=== PATIENT | male | born 1960 | race Caucasian/White ===

== ENCOUNTER → 2025-07-15 | Outpatient (CLI) | payer MEDICARE, SELFPAY ==
--- OUTSIDE RECORDS SUMMARY | 2025-07-15 21:01 | XMS RPT_ITS | CCD ---
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 Unavailable [phone] SEARS, CHRISTOPHER D Unavailable Unavailable SEARS, CHRISTOPHER D Unavailable Unavailable SEARS, CHRISTOPHER D Unavailable Unavailable SEARS, CHRISTOPHER D Unavailable Unavailable SEARS, CHRISTOPHER D Unavailable Unavailable LEVINE, BREANNA T Unavailable Unavailable CHAVIS, DIPAKKUMAR P Unavailable Unavailable SEARS, CHRISTOPHER D Unavailable Unavailable SEARS, CHRISTOPHER D Unavailable Unavailable SEARS, CHRISTOPHER D Unavailable Unavailable SEARS, CHRISTOPHER D Unavailable Unavailable SEARS, CHRISTOPHER D Unavailable Unavailable SEARS, CHRISTOPHER D Unavailable Unavailable SEARS, CHRISTOPHER D Unavailable Unavailable SEARS, CHRISTOPHER D Unavailable Unavailable SEARS, CHRISTOPHER D Unavailable Unavailable SEARS, CHRISTOPHER D Unavailable Unavailable SEARS, CHRISTOPHER D Unavailable Unavailable SEARS, CHRISTOPHER D Unavailable Unavailable SEARS, CHRISTOPHER D Unavailable Unavailable SEARS, CHRISTOPHER D Unavailable Unavailable SEARS, CHRISTOPHER D Unavailable Unavailable SEARS, CHRISTOPHER D Unavailable Unavailable JUAN, MARGARITA J Unavailable Unavailable SEARS, CHRISTOPHER D Unavailable Unavailable SEARS, CHRISTOPHER D Unavailable Unavailable SEARS, CHRISTOPHER D Unavailable Unavailable SEARS, CHRISTOPHER D Unavailable Unavailable SYSTEM, PROVIDER NOT IN Attending Unavaila DEBORAH Cardenas Primary Care Unavailable SYSTEM, PROVIDER NOT IN Attending Unavaila DEBORAH Cardenas Primary Care Unavailable CHODISETTY, SUBRAHMANYAM Referring Unavail able DEBORAH DE LA VEGA Primary Care Unavailable DAMON BATES Admitting Unavaila ble DAMON BATES Attending Unavaila ble DAMON BATES Referring Unavaila DEBORAH Cardenas Primary Care Unavailable CHODISETTY, SUBRAHMANYAM Referring Unavail able DEBORAH DE LA VEGA Primary Care Unavailable Justina De La Veganifer M. Primary Care Provider Deborah De La Vega Primary Care Provider DEBORAH DE LA VEGA Attending Unavailabl e DEBORAH DE LA VEGA Primary Care Unavailabl e Deborah De La Vega Primary Care Provider QUANG ESQUIVEL Referring Unavailable CARMELINA YOUNGBLOOD Admitting Unavailable CARMELINA YOUNGBLOOD Attending Unavailable CONSULT, NEUROLOGY Consulting Unavailable DEBORAH DE LA VEGA. Primary Care Unavailable ENRIQUE WILD Attending Unavailable ENRIQUE WILD Admitting Unavailable DEBORAH DE LA VEGA. Primary Care Unavailable JAIR GUERRA Attending Unavailable Pending Provider Unavailable Unavailable Deborah De La Vega CNP Primary Care Provider Jair Jacob DO Unavailable Chemo Chavez MD Unavailable Yuni Lindsey MDlizzie Unavailable Free, Text Entry Unavailable Unavailable Leilani Sommer Unavailable Unavailabl e DEBORAH DE LA VEGA Referring Unavailable CEFERINO DEBORAH M Primary Care Unavailable CEFERINO DEBORAH M Primary Care Unavailable HECTOR OLMEDO Attending Unavailable VALENTINE DE LA VEGAFER M Primary Care Unavailable QUANG ESQUIVEL Admitting Unavailable QUANG ESQUIVEL Attending Unavailable TOMMY MANCUSO W Consulting Unavailable TOMMY MANCUSO Referring Unavailable DE LA VEGA, DEBORAH M Primary Care Unavailable DE LA VEGA, DEBORAH M Referring Unavailable DE LA VEGA, DEBORAH M Primary Care Unavailable DE LA VEGA, DEBORAH M Referring Unavailable DE LA VEGA, DEBORAH M Primary Care Unavailable DE LA VEGA, DEBORAH M Referring Unavailable DE LA VEGA, DEBORAH M Primary Care Unavailable DE LA VEGA, DEBORAH M Referring Unavailable DE LA VEGA, DEBORAH M Primary Care Unavailable DE LA VEGA, DEBORAH M Referring Unavailable DE LA VEGA, DEBORAH M Primary Care Unavailable DE LA VEGA, DEBORAH M Referring Unavailable DE LA VEGA, DEBORAH M Primary Care Unavailable DE LA VEGA, DEBORAH M Referring Unavailable DE LA VEGA, DEBORAH M Primary Care Unavailable DE LA VEGA, DEBORAH M Referring Unavailable DE LA VEGA, DEBORAH M Primary Care Unavailable Jace Kwon Unavailable Deborah De La Vega CNP Primary Care Provider [phone] Scott GARNICA, Chemo J Unavailable César [facility]ARNICA, [facility] Unavailable [phone] Ceferino GARNICAJustinaDeborah Mary Unavailable Qing Martin Primary Care Provider Shashank Goel Unavailable Unavailable Ceferino MCCARTHY, Deborah Primary Care Provider [phone] ShanteJair copeland DO Unavailable [phone] Scott GARNICA, Chemo Martin Unavailable César GARNICA, Yunisherryam Unavailable Vikram Marr Unavailable Unavailable Lucy Hahn Unavailable Shashank Padilla Unavailable Unavailable Unavailable Leilani Reynolds Unavailable Unavailable Thomae, Dr. Lucy Galindo Attending Unavailable PCP, Pt States None Referring Unavailable Pending, Provider Primary Care Unavailable Padilla II, Dr. Shashank Livingston Attending Unavai lable Padilla II, Dr. Shashank Livingston Referring Unavai lable Pending, Provider Primary Care Unavailable Padilla II, Dr. Shashank Livingston Attending Unavai lable Padilla II, Dr. Shashank Livingston Referring Unavai lable Pending, Provider Primary Care Unavailable Pending, Provider Primary Care Unavailable Mario, Dr. Qing Encarnacion Attending Unavaila ble Thomae, Dr. Lucy Galindo Attending Unavailable Thomae, Dr. Lucy Galindo Referring Unavailable Tomchak, Dr. Qing Encarnacion Primary Care Unavaila ble Pending, Provider Primary Care Unavailable Thomashley, Dr. Lucy Galindo Referring Unavailable Thomashley, Dr. Lucy Galindo Attending Unavailable Pending, Provider Primary Care Unavailable Tommy Mancuso Attending Unavailable Pending, Provider Primary Care Unavailable Christal, Dr. Shashank Dillon Attending Unavailabl e Pending, Provider Primary Care Unavailable Tejinder, Dr. Vikram Moscoso Attending Unavailabl e Leilani Reynolds Attending Unavailable Pending, Provider Primary Care Unavailable Pending, Provider Primary Care Unavailable Qing Rader Unavailable Pending, Provider Primary Care Unavailable Qing Rader Attending Unavailable Qing Rader Attending Unavailable Pending, Provider Primary Care Unavailable Rader, Qing Attending Unavailable Pending, Provider Primary Care Unavailable Pending, Provider Primary Care Unavailable Rader, Qing Attending Unavailable Pending, Provider Primary Care Unavailable Rader, Qing Attending Unavailable Pending, Provider Primary Care Unavailable Rader, Qing Attending Unavailable Pending, Provider Primary Care Unavailable Rader, Qing Attending Unavailable Pending, Provider Primary Care Unavailable Rader, Qing Attending Unavailable Rader, Qing Attending Unavailable Pending, Provider Primary Care Unavailable Pending, Provider Primary Care Unavailable Dr. Qing Martin Attending Unavaila ble Qing Martin Unavailable ShanteJair copeland DO Unavailable [phone] Scott GARNICA, Chemo Martin Unavailable César [facility]ARNICA, [facility] Unavailable [phone] Qing Martin MD Primary Care Provider Ceferino OPERATIONS AND MAINTENANCE SPECIALIST, Deborah Ohcoa Unavailable Oberhauser , Anthony Sameer Primary Care Provider Oberhauser DO, Anthony L Primary Care Provider Oberhauser DO, Anthony Primary Care Provider Oberhauser DO, Anthony Sameer Primary Care Provider [facility], Deborah Mary Primary Care Provider SIM PATEL Attending Un available DEBORAH DE LA VEGA TAVIA Primary Care Unavailabl e OBERHAUSER, ANTHONY Smaeer Primary Care Unavailable OBERHAUSER, ANTHONY L Primary Care Unavailable OBERHAUSER, ANTHONY L Primary Care Unavailable OBERHAUSER, ANTHONY L Primary Care Unavailable GINETTE TORRES Attending Unavailable OBERHAUSER, ANTHONY L Primary Care Unavailable COOPERRIDER II, LEMUEL H Referring Unavailabl e COOPERRIDER II, LEMUEL H Attending Unavailabl e COOPERRIDER II, LEMUEL H Referring Unavailabl e COOPERRIDER II, LEMUEL H Attending Unavailabl e OBERHAUSER, ANTHONY L Primary Care Unavailable Mahamed Neri DO Primary Care Provide r César GARNICA, Subrahmanyam Unavailable Unav ailable MAHAMED NERI Referring Unavail able MAHAMED NERI Attending Unavail able MAHAMED NERI Primary Care Unavail able DANNY TORRES JR. Attending Unavailable MELISSA JONES, DANNY Referring Unavailable DEBORAH DE LA VEGA Primary Care Unavailabl e DARON, MAHAMED CHUNG Primary Care Unavail able MAHAMED NERI Attending Unavail able DARON, MAHAMED CHUNG Referring Unavail able DARON, MAHAMED CHUNG Primary Care Unavail able GUILLERMO RICH Admitting Unavail able JAKUB OGLESBY Consulting Unavailab TORSTEN Gonzalez Attending Unavailabl e [facility] Consulting UnavaMICHAEL Beltre Attending Unavailable MAHAMED NERI Primary Care Unavail able HANS LITTLEJOHN Admitting Unavailable [facility] Consulting Unavai lable Daron DO, Mahamed K Primary Care Provider [phone] Oberhauser DO, Anthony L Unavailable [phone] NIDIA CA Attending Unavailable MIRNA DENIS Attending Unavailable OBERHAUSER, ANTHONY L Primary Care Unavailable OBERHAUSER, ANTHONY L Attending Unavailable OBERHAUSER, ANTHONY L Referring Unavailable OBERHAUSER, ANTHONY L Primary Care Unavailable ALVINBRITTANYCELINA Attending Unavailable OBERHAUSER, ANTHONY Primary Care Unavailable ALVIN, CELINA Referring Unavailable ALVIN, CELINA Referring Unavailable ALVINDEBORAN Attending Unavailable OBERHAUSER, ANTHONY Primary Care Unavailable ALVIN, CELINA Referring Unavailable ALVIN, CELINA Attending Unavailable OBERHAUSER, ANTHONY Primary Care Unavailable OBERHAUSER, ANTHONY Primary Care Unavailable CARMELINA YOUNGBLOOD Referring Unavailable ALVINDEBORAN Attending Unavailable KAUSHAL AVITIA Attending Unavailable OBERHAUSER, ANTHONY Primary Care Unavailable OBERHAUSER, ANTHONY Referring Unavailable CARRIE GARCÍA Referring Unavailable CARRIE GARCÍA Attending Unavailable MAHAMED NERI Primary Care Unavailable ANUJA BUCKLEY Attending Unavailable SELF, SELF Referring Unavailable OBERHAUSER, ANTHONY Primary Care Unavailable OBERHAUSER, ANTHONY Primary Care Unavailable CARMELINA YOUNGBLOOD Referring Unavailable ALVINDEBORAN Attending Unavailable ANUJA BUCKLEY Attending Unavailable SELF, SELF Referring Unavailable DARON, MAHAMED K Primary Care Unavailable BUCKLEYANUJA PITTMAN Attending Unavailable SELF, SELF Referring Unavailable DARON, MAHAMED K Primary Care Unavailable ADORE, CRYSTAL G Referring Unavailable ESTEBAN, MYA L Attending Unavailable ESTEBAN, MYA L Admitting Unavailable OBERHAUSER, ANTHONY Primary Care Unavailable BUCKLEYANUJA PITTMAN Attending Unavailable OBERHAUSER, ANTHONY Primary Care Unavailable SELF, SELF Referring Unavailable BUCKLEYANUJA PITTMAN Attending Unavailable DARON, MAHAMED K Primary Care Unavailable SELF, SELF Referring Unavailable BUCKLEYANUJA PITTMAN Attending Unavailable DARON, MAHAMED K Primary Care Unavailable SELF, SELF Referring Unavailable CELINA ESQUIVEL Attending Unavailable OBERHAUSER, ANTHONY Referring Unavailable OBERHAUSER, ANTHONY Primary Care Unavailable ADORE, CRYSTAL G Attending Unavailable OBERHAUSER, ANTHONY Referring Unavailable OBERHAUSER, ANTHONY Primary Care Unavailable Mahamed Neri DO Primary Care Provide r MAHAMED NERI Attending Unavail able MAHAMED NERI Primary Care Unavail able MELISSA JONES, DANNY Attending Unavailable MAHAMED NERI Primary Care Unavail able MAHAMED NERI Primary Care Unavail able MAHAMED NERI Attending Unavail able MAHAMED NERI Primary Care Unavail able JAKUB OGLESBY Attending Unavailab le MAHAMED NERI Primary Care Unavail able MELISSA JONES, DANNY Attending Unavailable MAHAMED NERI Primary Care Unavail able MAHAMED NERI Attending Unavail able MELISSA JONES, DANNY Attending Unavailable DEBORAH DE LA VEGA Primary Care Unavailabl e MAHAMED NERI Primary Care Unavail able MAHAMED NERI Admitting Unavail able MARLENI GOLD Attending Unavailab le MAHAMED NERI Referring Unavail able MAHAMED NERI Attending Unavail able MAHAMED NERI Primary Care Unavail able MELISSA JONES, DANNY Attending Unavailable MAHAMED NERI Primary Care Unavail able MAHAMED NERI Primary Care Unavail able MAHAMED NERI Attending Unavail able MAHAMED NERI Primary Care Unavail able MAHAMED NERI Attending Unavail able MAHAMED NERI Primary Care Unavail able MAHAMED NERI Attending Unavail able MAHAMED NERI Primary Care Unavail able MAHAMED NERI Attending Unavail able MAHAMED NERI Attending Unavail able MAHAMED NERI Primary Care Unavail able MAHAMED NERI Primary Care Unavail able MAHAMED NERI Attending Unavail able Allergies Allergy Classification Reported Allergen(s) Allergy Type Date of Onset Reaction(s) Facility (1 source) No Known Medication Allergies; Translations: [No Known Medication Allergies] Propensity to adverse reactions to drug (disorder) [facility] Repository (1 source) ALLERGIES NOT ON FILE; Translations: [ALLERGIES NOT ON FILE] Propensity to adverse reactions (disorder) [facility] Repository Medications Current Medications Medication Drug Class(es) Dates Sig (Normalized) Sig (Original) acetaminophen 325 mg oral tablet (20 sources) Start: 07-02-2024 take 2 tablets by mouth every six hours as needed for pain, then take 8 tablets by mouth every hour as needed for pain acetaminophen (Tylenol) 325 mg tablet Indications: Pain in other joint GIVE 2 TABLETS (650MG) BY MOUTH EVERY 6 HOURS NEEDED FOR MILD PAIN (ALSO HAS SCHEDULED DOSE) *MAX 8 TABS/24 HRS* 60 tablet 11 07/04/2024 9:57 AM EST 07/02/2024 Active Start: 05-06-2024 End: 05-13-2025 take 2 tablets by mouth twice daily acetaminophen (TYLENOL) 325 MG tablet Take 2 (two) tablets (650 mg total) by mouth 2 (two) times a day . 180 tablet 3 05/13/2025 Active Start: 08-30-2023 End: 08-30-2023 take 1 tablet by mouth every four hours as needed 650 mg, Oral, EVERY 4 HOURS NEEDED, Starting on Mon08/30/23 at 1624, Until Mon08/30/23 at 2021, Mild Pain Maximum dose of acetaminophen is 4000 mg from all sources in 24 hours. Post-op/Post-Proc Start: 10-25-2021 End: 11-24-2021 take 2 tablets by mouth every six hours as needed acetaminophen 325 MG tablet Take 2 tablets by mouth every 6 hours as needed for Mild Pain. 90 tablet 0 10/25/2021 Active Start: 07-28-2020 acetaminophen (TYLENOL) tablet 650 mg Start: 07-22-2020 End: 07-22-2020 acetaminophen (TYLENOL) 325 MG tablet Start: 07-22-2020 End: 07-22-2020 acetaminophen (TYLENOL) tabl et 650 mg take 650 mg by mouth every four hours acetaminophen (TYLENOL) 325 mg/10.15 mL Soln Take 20.3 mL (650 mg total) by mouth every 4 (four) hours . Active take 2 tablets by mo [facility] every four hours as needed for pain acetaminophen (TYLENOL) 325 MG tablet Take 650 mg by mouth every 4 hours as needed for Pain 0 Active End: 05-17-2019 acetaminophen (TYLENOL) 500 MG tablet Take 650 mg by mouth every 4 hours as needed for Pain 0 05/17/2019 Discontinued (Stop Taking at Discharge) Comment on above: Take 650 mg by mouth every 6 hours as needed. acetaminophen 325 mg / HYDROcodone bitartrate 5 mg oral tablet (12 sources) Opioid Agonist take 1 tablet by mouth every six hours as needed HYDROcodone-acetaminophe n ([place]) 5-325 mg tablet Take 1 tablet by mouth every 6 hours if needed. Active Comment on above: Take 1 tablet by oly every 6 hours as needed. aluminum hydroxide 80 mg/ml / magnesium hydroxide 80 mg/ml / simethicone 8 mg/ml oral suspension (17 sources) Start: 0 take 5 mL by mouth three times daily as needed for nausea aluminum & magnesium hydroxide-simethicone (ALMACONE DOUBLE STRENGTH) 400-400-40 MG/5ML SUSP Indications: Gastroesophageal reflux disease without esophagitis Take 5 mLs by mouth 3 times daily as needed (nausea/diarrhea) 1 Bottle 5 05/11/2020 Active take 5 mL by mouth t hree times daily as needed for nausea Alum & Mag Hydroxide-Simeth (alum/mag hydrox.-simethicone) Suspension Take 5 mL by mouth 3 times daily as needed (NAUSEA/DIARRHEA). 0 Active take 5 mL by mouth e very six hours as needed aluminum & magnesium hydroxide-simethico ne (ALMACONE DOUBLE STRENGTH) 400-400-40 MG/5ML SUSP Take 5 mLs by mouth every 6 hours as needed 0 Active amLODIPine 10 mg oral tablet (20 sources) Dihydropyridine Calcium Channel Arnulfo Start: 05-13-2019 End: 09-11-2024 take 1 tablet by mouth once daily amLODIPine (NORVASC) 10 MG tablet Take 1 (one) tablet (10 mg total) by mouth daily . 01/10/2020 09/11/2024 Discontinued Comment on above: Take 10 mg by mouth once daily. amoxicillin 500 mg oral capsule (8 sources) Penicillin-class Antibacterial Start: 12-28-2022 amoxicillin (Amoxil) 500 mg capsule 12/28/2022 Active atorvastatin 10 mg oral tablet (20 sources) HMG-CoA Reductase Inhibitor Start: 05-13-2019 End: 12-13-2024 take 1 tablet by mouth once daily atorvastatin (LIPITOR) 10 MG tablet Take 1 (one) tablet (10 mg total) by mouth daily . 30 tablet 11 11/21/2024 Active Atorvastatin Nils cium 10 MG Oral Tablet Quantity: 0 Refills: 0 Ordered: 06-Oct-2022 DO Active Comment on above: Take 10 mg by mouth once daily. benoxinate hydrochloride 4 mg/ml / fluorescein sodium 3 mg/ml ophthalmic solution (2 sources) Diagnostic Dye Start: 07-10-2024 End: 07-11-2024 fluorescein-benoxi maude 0.3-0.4 % 1 Drop (FLURESS) Start: 07-10-2024 End: 07-11-2024 1 Drop, BOTH EYES, DIRECT ED, Starting on Mon07/10/24 at 1530, Until Mon07/11/24 at 0329, Administer for applanation tonometry. In the event of a Fluress shortage, administer Char-Fluor 1 drop into both eyes as directed for applanation tonometry benztropine mesylate 1 mg oral tablet (12 sources) Anticholinergic, Antihistamine take 1 tablet by mouth every six hours as needed benztropine (Cogentin) 1 mg tablet Take 1 tablet (1 mg) by mouth every 6 hours if needed. Active Comment on above: Take 1 mg by mouth e very 6 hours as needed. budesonide 0.25 mg/ml inhalation suspension (17 sources) Corticosteroid budesonide (PULMICORT) 0.5 mg/2 mL nebulizer solution Take 2 mL (0.5 mg total) by nebulization 3 (three) times a day as needed . Active take 2 mL by inhalat ion three times daily as needed for wheezing budesonide 0.5 MG/2ML nebulizer suspensi on Inhale 2 mL 3 times daily as needed for Other (Wheezing). Active Calcium & Magnesium Carbonates (MYLANTA PO) (13 sources) take 30 mL by mouth every four hours as needed Calcium & Magnesium Carbonates (MYLANTA PO) Take 30 mLs by mouth every 4 hours as needed 0 Active Calcium Carbonate / vitamin D3 (4 sources) CALCIUM CARBONAT E/VITAMIN D3 (OYSTER SHELL + D3 ORAL) Take by mouth. Active CALCIUM CARBONAT E/VITAMIN D3 (OYSTER SHELL + D3 ORAL) Take by mouth. 0 Active Comment on above: Take by mouth. cetirizine hydrochloride 10 mg oral tablet (20 sources) Histamine-1 Receptor Antagonist Start: End: take 1 tablet by mouth once daily as needed cetirizine (ZYRTEC) 10 MG tablet Indications: Allergy, subsequent encounter Take 1 tablet by mouth daily as needed for Allergies 90 tablet 1 08/28/2020 Active cetirizine (ZYRT EC) 10 mg capsule Take 1 capsule (10 mg) by mouth if needed. Active Comment on above: Take 10 mg by mouth as needed. cholecalciferol 0.025 mg oral tablet (20 sources) Vitamin D Start: 09-23-19 25 take 2 tablets by mouth once daily cholecalciferol (Vitamin D-3) 25 MCG (1000 UT) tablet Indications: Vitamin D deficiency, unspecified GIVE 2 TABLETS (2000 UNITS) BY MOUTH ONCE DAILY 60 tablet 1 09/23/2024 Active Start: 02-28-2024 take 2 tablets by mo ut once daily cholecalciferol (Vitamin D-3) 25 MCG (1000 UT) tablet Indications: Vitamin D deficiency, unspecified GIVE 2 TABLETS (2000 UNITS) BY MOUTH ONCE DAILY 60 tablet 3 02/28/2024 Active Start: 10-04-2023 take 2 tablets by mo uth once daily cholecalciferol (Vitamin D-3) 25 MCG (1000 UT) tablet Indications: Vitamin D deficiency, unspecified GIVE 2 TABLETS (2000 UNITS) BY MOUTH ONCE DAILY NEW PCP 60 tablet 4 10/04/2023 Active Start: 04-21-2023 End: 09-11-2024 take 1 tablet by mouth once daily cholecalciferol 25 MCG (1000 UNIT) tablet Take 1 tablet by mouth daily. 0 04/21/2023 08/16/2023 Discontinued (Duplicate (suppress cancel msg)) Start: 06-29-2022 take 2 capsules by m outh once daily in the morning Cholecalciferol (Vitamin D-3) 25 MCG (1000 UT) capsule Take 2 capsules by mouth daily every morning. 06/29/2022 Active Start: 03-10-2022 End: 11-20-2024 take 2 tablets by mouth once daily cholecalciferol, vitamin D3, 1,000 unit tablet Take 2 (two) tablets (2,000 Units total) by mouth daily . 60 tablet 11 11/21/2024 Active take 1 tablet by oly th twice daily cholecalciferol (Vitamin D3) 25 MCG (1000 UT) tablet Take 1 tablet (25 mcg) by mouth 2 times a day. 0 Active Vitamin D3 25 MC G Oral Tablet Quantity: 0 Refills: 0 Ordered: 06-Oct-2022 DO Active Cholecalciferol (Vitamin D-3) 25 MCG (1000 UT) capsule Take by mouth. 0 Active Comment on above: GIVE 2 TABLETS (2000 UNITS) BY MOUTH ONCE DAILY ciclopirox 80 mg/ml topical solution (20 sources) Start: 01-31-20 24 End: 06-09-20 25 ciclopirox (Penlac) 8 % solution Indications: Nail fungus APPLY OVER NAIL & SURROUNDING SKIN NIGHTLY. APPLY DAILY OVERPREVIOUS COAT. AFTER 7 DAYS, MAY REMOVE WITH ALCOHOL & CONT 6.6 mL 04/29/2024 Active ciprofloxacin 500 mg oral tablet (1 source) Quinolone Antimicrobial Start: 08-19-19 End: 08-29-19 21 take 1 tablet by mouth twice daily ciprofloxacin (CIPRO) 500 MG tablet Take 1 tablet by mouth 2 times daily for 10 days 10 tablet 0 08/19/2020 08/29/2020 Active clonazePAM 1 mg oral tablet (20 sources) Benzodiazepine Start: 07-22-20 20 clonazePAM (KLONOPIN) 0.5 MG tablet Start: 01-07-2020 End: 02-18-2026 take 1 tablet by mouth at bedtime clonazePAM (KLONOPIN) 1 MG tablet Take 1 (one) tablet (1 mg total) by mouth at bedtime . 01/07/2020 Active Start: 03-19-2019 End: 06-17-2019 take 1 mg by mouth once daily 1 mg, Oral, NIGHTLY, Fir st dose on Mon05/13/19 at 2100 clonazePAM 1 MG Oral Tablet Quantity: 0 Refills: 0 Ordered: 06-Oct-2022 DO Active Comment on above: Take 0.5 mg by mouth daily at bedtime. collagenase 0.25 unt/mg topical ointment (1 source) Collagen-specific Enzyme Start: 07-31-2020 collagenase ointment CPAP (4 sources) CPAP Active CPAP CPAP Machine MISC (13 sources) CPAP Machine MIS C by Does not apply route 0 Active cyclopentolate hydrochloride 10 mg/ml ophthalmic solution (1 source) Start: 05-31-2022 End: 05-31-2022 cyclopentolate 1 % 1 Drop (CYCLOGYL) diazePAM 100 mg/ml nasal spray (20 sources) Benzodiazepine Start: 03-05-2025 diazePAM, 20 MG Dose, (Valtoco 20 MG Dose) 2 x 10 MG/0.1ML Liquid Therapy Pack Indications: Focal epilepsy GIVE 10MG (1 SPRAY) IN 1 NOSTRIL NEEDED FOR CONVULSIVE SEIZURE LASTING 5 MIN OR LONGER. MAX 2 DOSES IN 7 DAYS 4 Each 1 03/05/2025 Active Start: 04-26-2024 diazePAM, 20 M G Dose, (Valtoco 20 MG Dose) 2 x 10 MG/0.1ML Liquid Therapy Pack Indications: Focal epilepsy Give 10 mg in ONE nostril as needed for convulsive seizure lasting 5 minutes or longer. MAX 2 DOSES IN 7 DAYS. 4 Each 1 04/26/2024 Active Start: 09-20-2023 diazePAM, 20 M G Dose, (Valtoco 20 MG Dose) 2 x 10 MG/0.1ML Liquid Therapy Pack Indications: Focal epilepsy Give 10 mg in ONE nostril as needed for convulsive seizure lasting 5 minutes or longer. MAX 2 DOSES IN 7 DAYS. 4 Each 1 09/20/2023 Active diazePAM (Valtoc o) 20 mg/2 spray (10mg/0.1mL x2) [place] Instill 1 spray into each nostril as needed (convulsive seizure lasting 5 minutes or longer) GIVE 10 MG (1 SPRAY) IN 1 NOSTRIL NEEDED FOR CONVULSIVE SEIZURE LASTING 5 MIN OR LONG. MAX 2 DOSES IN 7 DAYS. . Active diazePAM (Valtoc o) 20 mg/2 spray (10mg/0.1mL x2) [place] Instill 1 spray into each nostril as needed (convulsive seizure lasting 5 minutes or longer) . Active End: 09-11-2024 diazePAM (Valtoco) 20 mg/2 s pray (10mg/0.1mL x2) [place] Instill into each nostril . 09/11/2024 Discontinued diazePAM (VALTOC O) 20 mg/2 spray (10mg/0.1mL x2) nasal spray Use 1 [place] in each nostril as needed. May repeat dose once after 4 hours based on response and tolerability for a maximum of 2 doses per 24-hour period. Active diazePAM (Valtoc o) 20 mg/2 spray (10mg/0.1mL x2) [place] Instill into each nostril . Active diazePAM (Valtoc o) 20 mg/2 spray (10mg/0.1mL x2) [place] Instill into each nostril . 0 Active docusate sodium 100 mg oral capsule (20 sources) Start: 05-13-2019 End: 09-11-2024 take 100 mg by mouth once daily 100 mg, Oral, DAILY, First dose on Mon05/13/19 at 1230 Do not crush or break. take 1 capsule by mouth twice da anushka docusate sodium (Colace) 100 mg capsule Take 1 capsule (100 mg) by mouth twice a day. Active DOCUSATE SODIUM 100 mg. 0 Active Comment on above: Take 100 mg by mouth twice daily. docusate sodium 50 mg / sennosides, intermediate 8.6 mg oral tablet (20 sources) Start: 08-13-2020 End: 05-05-2025 take 1 tablet by mouth twice daily senna-docusate (sennosides-docus ate sodium) 8.6-50 mg Take 1 (one) tablet by mouth 2 (two) times a day . 180 tablet 3 05/06/2025 Active Start: 07-30-2020 sennosides-doc usate sodium (SENOKOT-S) 8.6-50 MG tablet 1 tablet donepezil hydrochloride 10 mg oral tablet (12 sources) take 1 tablet by mouth once daily at bedtime donepezil (Aricept) 10 mg tablet Take 10 mg by mouth daily at bedtime. Active Comment on above: Take 10 mg by mouth daily at bedtime. doxycycline hyclate 100 mg oral capsule (1 source) Tetracycline-class Drug Start: 08-30-19 End: 09-04-19 take 1 capsule by mouth twice daily doxycycline hyclate 100 MG capsule Take 1 capsule by mouth 2 times daily for 5 days. 10 capsule 0 08/30/2023 09/04/2023 Active ergocalciferol 1.25 mg oral capsule (12 sources) Provitamin D2 Compound take 1 capsule by mouth every week ergocalciferol (Vitamin D-2) 1.25 MG (90806 UT) capsule Take 1 capsule (50,000 Units) by mouth once a week. Active Comment on above: Take 50,000 Units by mouth once each week. famotidine 20 mg oral tablet (20 sources) Histamine-2 Receptor Antagonist Start: 08-08-20 End: 12-14-19 take 1 tablet by mouth twice daily famotidine (PEPCID) 20 MG tablet Take 1 (one) tablet (20 mg total) by mouth 2 (two) times a day . 60 tablet 11 11/21/2024 Active Start: 07-25-2020 End: 08-08-2020 famotidine (PEPCID) injectio n 20 mg take 1 tablet by oly th once daily famotidine (Pepcid) 20 mg tablet Take 1 tablet (20 mg) by mouth once daily. 0 Active Famotidine 20 MG Oral Tablet Quantity: 0 Refills: 0 Ordered: 06-Oct-2022 DO Active Comment on above: Take 20 mg by mouth twice daily. finasteride 5 mg oral tablet (10 sources) 5-alpha Reductase Inhibitor Start: 04-21-2025 End: 04-21-2026 take 1 tablet by mouth once daily finasteride (PROSCAR) 5 mg tablet Take 1 (one) tablet (5 mg total) by mouth daily . 04/21/2025 04/21/2026 Active folic acid 1 mg oral tablet (20 sources) Start: 05-19-2015 End: 06-18-2025 take 1 tablet by mouth once daily folic acid (FOLVITE) 1 MG tablet Take 1 (one) tablet (1 mg total) by mouth daily . 90 tablet 3 06/19/2025 Active Folic Acid 1 MG Oral Tablet Quantity: 0 Refills: 0 Ordered: 06-Oct-2022 DO Active Comment on above: Take 1 mg by mouth o nce daily. haloperidol 1 mg oral tablet (20 sources) Typical Antipsychotic Start: 08-08-2020 haloperidol (HALDOL) tablet 2 mg Start: 07-29-2020 End: 07-29-2020 haloperidol lactate (HALDOL) injection 5 mg Start: 07-29-2020 End: 06-10-2024 haloperidol lactate (HALDOL) 5 MG/ML injection Start: 07-25-2020 haloperidol la ctate (HALDOL) injection 2 mg haloperidol (Clay dol) 5 mg tablet Take 1 tablet (5 mg) by mouth if needed. Active haloperidol lact ate (HALDOL) 5 mg/mL injection Inject intramuscularly as needed. Active Comment on above: Inject intramuscular ly as needed. Take 5 mg by mouth a s needed. 1 ml heparin sodium, porcine 5000 unt/ml prefilled syringe (2 sources) Unfractionated Heparin, Anti-coagulant Start: End: heparin (porcine) injection 5,000 Units hydrocortisone 10 mg/ml topical cream (20 sources) Corticosteroid hydrocortisone 1 % cream Apply topically 2 (two) times a day as needed (itchiness) B/L anterior notch of ear . Active hydrocortisone 10 mg/ml / neomycin 3.5 mg/ml / polymyxin b 83078 unt/ml otic solution (7 sources) Aminoglycoside Antibacterial, Polymyxin-class Antibacterial, Corticosteroid Start: End: [id number] (Cortisporin) otic solution Indications: Allergic eczema Administer 2 drops into each ear 4 times a day. 10 mL 01/09/2024 Active lacosamide 50 mg oral tablet (20 sources) Anti-epileptic Agent Start: 025 End: take 1 tablet by mouth every twelve hours Lacosamide (Vimpat) 200 MG tablet Indications: Focal epilepsy Take 1 tablet by mouth every 12 hours. 60 tablet 5 04/01/2025 09/28/2025 Active Start: 12-11-2024 End: 12-13-2024 take 250 mg by mouth every twelve hours 250 mg, Oral, EVERY 12 HOURS, First dose on Mon12/11/24 at 1015, Until Discontinued Start: 11-01-2024 End: 11-01-2025 take 1 tablet by mouth every twelve hours Lacosamide 50 MG tablet Indications: Focal epilepsy Take 1 tablet by mouth every 12 hours. 60 tablet 5 04/17/2025 10/14/2025 Active Start: 10-30-2024 End: 11-29-2024 take 1 tablet by mouth once lacosamide (VIMPAT) 200 mg Tab Indications: Refractory epilepsy (HCC) Take 1 (one) tablet (200 mg total) by mouth every 12 (twelve) hours . 60 tablet 10/30/2024 Active Start: 10-30-2024 End: 11-29-2024 take 1 tablet by mouth twice daily lacosamide (Vimpat) 50 mg Tab Indications: Refractory epilepsy (HCC) Take 1 (one) tablet (50 mg total) by mouth 2 (two) times a day For a total of 250mg bid . 60 tablet 10/30/2024 Active Start: 04-12-2023 End: 02-19-2025 take 1 tablet by mouth every twelve hours Lacosamide (Vimpat) 200 MG tablet Indications: Focal epilepsy Take 1 tablet by mouth every 12 hours. 60 tablet 5 08/23/2024 02/19/2025 Active Start: 10-06-2022 take 1 tablet by oly th every twelve hours Lacosamide (Vimpat) 200 MG tablet Indications: Seizure disorder Take 1 tablet by mouth every 12 hours. 60 tablet 5 10/06/2022 Active Start: 06-02-2022 End: 07-02-2022 take 1 tablet by mouth every twelve hours Lacosamide (Vimpat) 200 MG tablet Indications: Seizure disorder Take 1 tablet by mouth every 12 hours. 60 tablet 5 06/02/2022 Active Start: 03-09-2022 End: 04-08-2022 take 1 tablet by mouth every twelve hours Lacosamide (Vimpat) 150 MG tablet Indications: Seizure disorder Take 1 tablet by mouth every 12 hours. 60 tablet 5 03/09/2022 04/08/2022 Active Start: 11-17-2021 End: 03-09-2022 take 1 tablet by mouth every twelve hours lacosamide (Vimpat) 100 MG tablet Indications: Seizure disorder Take 1 tablet by mouth every 12 hours. 60 tablet 5 11/17/2021 03/09/2022 Discontinued (Reorder) Start: 09-15-2021 End: 11-17-2021 take 1 tablet by mouth every twelve hours lacosamide (Vimpat) 50 MG tablet Indications: Seizure disorder Take 1 tablet by mouth every 12 hours. 60 tablet 5 09/15/2021 11/17/2021 Discontinued (Reorder) take 0.25 tablet by mouth twice daily lacosamide (Vimpat) 200 mg tablet tablet Take 0.25 tablets (50 mg) by mouth 2 times a day. Active take 1 tablet by oly th twice daily lacosamide (VIMPAT) 200 mg Tab Take 1 (one) tablet (200 mg total) by mouth 2 (two) times a day (Days supply per fill: . Active take 1 tablet by oly th twice daily lacosamide (VIMPAT) 150 mg tab Take by mouth twice daily. Active Comment on above: Take by mouth twice daily. levothyroxine sodium 0.137 mg oral tablet (20 sources) l-Thyroxine Start: 12-11-2024 End: 12-13-2024 237.5 mcg (rounded from 237 mcg), Oral, DAILY EVERY MORNING, First dose on Mon12/11/24 at 1200, Until Discontinued, Hold tube feedings for 1 hour before and 1 hour after medication administration. Start: 08-10-2023 End: 06-18-2025 take 1 tablet by mouth once daily levothyroxine (SYNTHROID, LEVOTHROID) 100 MCG tablet Indications: Acquired hypothyroidism Take 1 (one) tablet (100 mcg total) by mouth once daily Along with 137 mcg, total 237 daily . 90 tablet 3 06/19/2025 Active Start: 08-10-2023 End: 06-18-2025 take 1 tablet by mouth once daily levothyroxine (SYNTHROID, LEVOTHROID) 137 MCG tablet Indications: Acquired hypothyroidism Take 1 (one) tablet (137 mcg total) by mouth once daily With 100 mcg, total 237 daily . 90 tablet 3 06/19/2025 Active Start: 06-29-2022 take 0.5 tablet by m outh once daily in the morning levothyroxine 200 MCG tablet Take 0.5 tablets by mouth daily every morning. 0 06/29/2022 Active Start: 06-29-2022 take 1 tablet by oly th once daily before breakfast levothyroxine 125 MCG tablet Take 1 tablet by mouth every morning before breakfast. Total dose 237mg daily 0 06/29/2022 Active Start: 07-23-2020 take 200 ug by mouth once daily in the morning 200 mcg, Oral, EVERY MORNING, First dose on Anne-Marie 07/23/20 at 0900 Tube feeding (TF) interaction, obtain physician order to manage, recommend holding TF for 30 minutes before and after dose. Start: 05-11-2020 End: 08-13-2020 take 1 tablet by mouth twice daily levothyroxine (SYNTHROID) 50 MCG tablet Indications: Hypothyroidism, unspecified type Take 1 tablet by mouth 2 times daily 90 tablet 1 05/11/2020 08/13/2020 Discontinued (REORDER) Start: 01-10-2020 End: 09-11-2024 take 1 tablet by mouth once daily levothyroxine (SYNTHROID, LEVOTHROID) 200 MCG tablet Take 1 (one) tablet (200 mcg total) by mouth daily . 01/10/2020 09/11/2024 Discontinued Start: 01-10-2020 End: 09-11-2024 take 1 tablet by mouth every other day levothyroxine (SYNTHROID, LEVOTHROID) 50 MCG tablet Take 1 (one) tablet (50 mcg total) by mouth every other day . 01/10/2020 09/11/2024 Discontinued Start: 05-13-2019 take 200 ug by mouth once owen y 200 mcg, Oral, DAILY, First dose on Mon05/13/19 at 1230 Start: 05-13-2019 take 50 ug by mouth every other day 50 mcg, Oral, EVERY OTHER DAY, First dose on Mon05/13/19 at 1230 In addition to 200mg Daily Tube feeding (TF) interaction, obtain physician order to manage, recommend holding TF for 30 minutes before and after dose. levothyroxine (S YNTHROID) 200 mcg tablet Indications: Intractable epilepsy without status epilepticus, unspecified epilepsy type (HCC) Take 137 mcg by mouth daily before breakfast. Active take 1 tablet by oly th once daily before breakfast levothyroxine (SYNTHROID) 50 mcg tablet Indications: Intractable epilepsy without status epilepticus, unspecified epilepsy type (HCC) Take 50 mcg by mouth daily before breakfast. Active End: 06-10-2024 take 1 capsule by mouth once daily levothyroxine (Tirosint) 137 mcg capsule Take 1 capsule (137 mcg) by mouth once daily. 06/10/2024 Discontinued (Duplicate order) Levothyroxine So dium 100 MCG Oral Capsule Quantity: 0 Refills: 0 Ordered: 06-Oct-2022 DO Active take 2 tablets by mo uth every other day levothyroxine 25 MCG tablet Take 50 mcg by mouth every other day. 0 Active End: 05-17-2019 take 0.2 ug by mouth once daily LEVOTHYROXINE SODIUM P O Take 0.2 mcg by mouth daily 0 05/17/2019 Discontinued (Stop Taking at Discharge) take 0.2 ug by mouth once daily LEVOTHYROXINE SODIUM PO Take 0.2 mcg by mouth daily 0 Active Comment on above: Take 50 mcg by mouth daily before breakfast. Take 200 mcg by mout h daily before breakfast. Take 137 mcg by mout h daily before breakfast. lidocaine 0.05 mg/mg medicated patch (4 sources) Antiarrhythmic, Amide Local Anesthetic lidocaine 5 % Patch patch Place 1 patch on skin every 24 hours. Max of 12 hours of application then remove. 0 Active LORazepam 1 mg oral tablet (6 sources) Benzodiazepine Start: 08-08-2020 LORazepam (ATIVAN) tablet 1 mg Start: 08-03-2020 End: 08-08-2020 LORazepam (ATIVAN) injection 2 mg Start: 07-29-2020 End: 07-29-2020 LORazepam (ATIVAN) injection 2 mg Start: 07-29-2020 End: 07-29-2020 LORazepam (ATIVAN) 2 MG/ML i njection Start: 07-23-2020 End: 08-03-2020 LORazepam (ATIVAN) injection 1 mg Start: 05-13-2019 LORazepam (ATI VAN) injection 2 mg MAG HYDROX/AL HYDROX/SIMETH (ANTACID LIQUID ORAL) (4 sources) MAG HYDROX/AL HY DROX/SIMETH (ANTACID LIQUID ORAL) Indications: Intractable epilepsy without status epilepticus, unspecified epilepsy type (HCC) Take 30 mL by mouth as needed. Active MAG HYDROX/AL HY DROX/SIMETH (ANTACID LIQUID ORAL) Indications: Intractable epilepsy without status epilepticus, unspecified epilepsy type (HCC) Take 30 mL by mouth as needed. 0 Active Comment on above: Take 30 mL by mouth as needed. magnesium hydroxide 80 mg/ml oral suspension (5 sources) Start: 05-13-2019 take 30 mL by mouth once daily as needed for constipation 30 mL, Oral, DAILY PRN, Constipation, Starting 05/13/19 at 1202 First line therapy for constipation. take 10 mL by mouth every twenty-four hours as needed magnesium hydroxide, concentrate, 2400 MG/10ML Suspension oral suspension Take 10 mL by mouth daily as needed for Constipation. 0 Active memantine hydrochloride 10 mg oral tablet (20 sources) A-ldgbmt-E-aspartate Receptor Antagonist Start: 07-22-2020 take 5 mg by mouth twice daily 5 mg, Oral, 2 TIMES DAILY, First dose on Mon07/22/20 at 2230 Substituted for Memantine ER (NAMENDA XR). Start: 11-15-2019 End: 09-11-2024 take 1 tablet by mouth twice daily memantine (NAMENDA) 10 MG tablet Take 1 (one) tablet (10 mg total) by mouth 2 (two) times a day . 11/15/2019 09/11/2024 Discontinued Start: 12-19-2018 take 1 tablet by [facility] twice daily memantine (NAMENDA) 5 MG tablet Indications: Cognitive impairment Take 1 tablet by mouth 2 times daily 60 tablet 1 06/12/2020 Active Comment on above: Take 5 mg by mouth t wice daily. methenamine hippurate 1000 mg oral tablet (20 sources) Start: 03-09-2022 End: 10-03-2025 take 1 tablet by mouth twice daily Methenamine Hippurate 1 g tablet Take 1 tablet by mouth 2 times daily. 03/09/2022 Active Comment on above: Take 1 g by mouth. 24 hr metoprolol succinate 25 mg extended release oral tablet (20 sources) beta-Adrenergic Arnulfo Start: 10-16-2024 End: 12-13-2024 take 1 tablet by mouth once daily metoprolol succinate (TOPROL-XL) 25 MG 24 hr tablet Indications: Hypertension goal BP (blood pressure) Take 1 (one) tablet (25 mg total) by mouth daily . 90 tablet 3 10/16/2024 Active Start: 08-13-2020 take 0.5 tablet by m outh twice daily in the evening metoprolol tartrate (Lopressor) 25 mg tablet Indications: Primary hypertension GIVE 1/2 TABLET (12.5MG) BY MOUTH TWICE DAILY NEW PCP 30 tablet 11 08/19/2024 1:16 PM EST 12/08/2023 Active Start: 08-09-2020 metoprolol tar trate (LOPRESSOR) tablet 12.5 mg Start: 07-29-2020 End: 08-09-2020 metoprolol tartrate (LOPRESS OR) tablet 25 mg Start: 07-27-2020 End: 07-27-2020 metoprolol tartrate (LOPRESS OR) tablet 25 mg Start: 07-22-2020 metoprolol (LO PRESSOR) 5 MG/5ML injection Start: 05-13-2019 End: 09-11-2024 metoprolol tartrate (LOPRESS OR) tablet 50 mg take 1 tablet by oly th twice daily metoprolol succinate ER (TOPROL XL) 50 mg 24 hr tablet Take 50 mg by mouth twice daily. Active Metoprolol Tartr ate 25 MG Oral Tablet Quantity: 0 Refills: 0 Ordered: 06-Oct-2022 DO Active metoprolol 25 MG tab regular release Take 12.5 mg by mouth 2 times daily. 0 Active Comment on above: Take 50 mg by mouth twice daily. metoprolol tartrate (LOPRESSOR) 12.5 mg partial tablet (1 source) End: 09-11-2024 metoprolol tartrate (LOPRESSOR) 12.5 mg partial tablet Take 1 (one) split tablet (12.5 mg total) by mouth 2 (two) times a day . 09/11/2024 Discontinued 24 hr mirabegron 25 mg extended release oral tablet (20 sources) beta3-Adrenergic Agonist Start: 05-27-2022 End: 09-11-2024 take 1 tablet by mouth every twenty-four hours Mirabegron ER 25 MG tablet Take 1 tablet by mouth every evening. 05/27/2022 Active Myrbetriq 25 MG Oral Tablet Extended Release 24 Hour Quantity: 0 Refills: 0 Ordered: 06-Oct-2022 DO Active Comment on above: Take 25 mg by mouth once daily. NONFORMULARY (20 sources) NONFORMULARY RORY ATMENT-DUODERM ADHESIVE DRESSING 4 X 4: APPLY 1 UNIT BY TOPICAL ROUTE EVERY 3 DAYS, ADDITIONAL IF NEEDED (OPEN AREAS TO BOTTOM) . Active NONFORMULARY RORY ATMENT-SWIPE VNS MAGNET ONE TIME AT [email or web address] . Active NONFORMULARY RORY ATMENT-CHECK BLOOD PRESSURE & HEART RATE DAILY. UPDATE NURSE IF >140/90 AND HR >100 OR IF Active ondansetron 4 mg oral tablet (5 sources) Serotonin-3 Receptor Antagonist Start: 08-08-2020 ondansetron (ZOFRAN) tablet 4 mg Start: 07-22-2020 End: 08-08-2020 4 mg, Intravenous, EVERY 6 H OURS PRN, Nausea, Vomiting, Starting Mon07/22/20 at 2149 Start: 05-16-2019 ondansetron (Z OFRAN) injection 4 mg oxygen (O2) therapy (1 source) Start: 05-14-2024 inhalation, Continuous PRN - O2/gases, other, Starting on Mon05/14/24 at 2315, Device: Nasal Cannula, Rate in liters per minute: Other, Custom Value: 1-4, Keep O2 Sat Above: 90% PARoxetine hydrochloride 40 mg oral tablet (20 sources) Serotonin Reuptake Inhibitor Start: 12-11-2024 End: 12-13-2024 take 1 tablet by mouth once daily in the morning 50 mg, Oral, DAILY EVERY MORNING, First dose on Mon12/11/24 at 1015, Until Discontinued, Swallow tablet whole; do not crush, split or chew. Contact pharmacy if alternate route or dose is needed. Start: 08-19-2024 End: 07-19-2025 take 1 tablet by mouth once daily in the morning PARoxetine 10 MG tablet Indications: Anxiety disorder, unspecified type , Depression, unspecified depression type Take 1 tablet by mouth daily every morning. Takes with 40mg for Total dose 50mg QAM 30 tablet 5 01/20/2025 07/19/2025 Active Start: 01-04-2023 End: 05-18-2024 take 1 tablet by mouth once daily in the morning PARoxetine 10 MG tablet Indications: Depression, unspecified depression type Take 1 tablet by mouth daily every morning. Takes with 40mg for Total dose 50mg QAM 30 tablet 5 11/20/2023 Active Start: 02-28-2022 End: 09-27-2022 take 1 tablet by mouth once daily PARoxetine 10 MG tablet Take 1 tablet by mouth daily. Take with 40mg tab for total dose 50mg 90 tablet 0 06/29/2022 09/27/2022 Active Start: 10-27-2021 End: 11-26-2021 take 1 tablet by mouth once daily PARoxetine 10 MG tablet Take 1 tablet by mouth daily. Take with 40mg dose for total dose 50mg 30 tablet 0 10/27/2021 11/26/2021 Active Start: 07-23-2020 take 40 mg by mouth once daily 40 mg, Oral, DAILY, First dose on Anne-Marie 07/23/20 at 0900 Start: 01-10-2020 End: 07-19-2025 take 1 tablet by mouth once daily PARoxetine (PAXIL) 40 MG tablet Take 1 (one) tablet (40 mg total) by mouth daily Plus 10 mg for total of 50 daily . 01/10/2020 Active Start: 05-13-2019 take 40 mg by mouth once daily in the morning 40 mg, Oral, EVERY MORNING, First dose on 05/13/19 at 1230 PARoxetine HCl - 10 MG Oral Tablet Quantity: 0 Refills: 0 Ordered: 06-Oct-2022 DO Active Comment on above: Take 40 mg by mouth once daily. PHENobarbital 32.4 mg oral tablet (20 sources) Start: 02-18-2025 End: 02-19-2026 PHENobarbital 32.4 MG tablet Indications: Focal epilepsy 1 tab po in AM, 1 tab at 1pm, and two tabs at bedtime (7 am,1 pm, 7pm) 120 tablet 5 02/18/2025 02/19/2026 Active Start: 12-11-2024 End: 12-13-2024 PHENobarbital tablet 48.6 mg Start: 09-20-2023 End: 08-17-2025 take 1 tablet by mouth twice daily PHENobarbital 16.2 MG tablet Indications: Focal epilepsy Take 1 tablet by mouth 2 times daily. (7 am and 1 pm with 32.4 mg tablets) 60 tablet 5 02/18/2025 08/17/2025 Active Start: 04-12-2023 End: 05-12-2023 take 1 tablet by mouth twice daily PHENobarbital 16.2 MG tablet Indications: Seizure disorder Take 1 tablet by mouth 2 times daily. 60 tablet 5 04/12/2023 Active Start: 05-30-2022 take 1 tablet by oly twice daily PHENobarbital 16.2 MG tablet Take 1 tablet by mouth 2 times daily. 0 05/30/2022 Active Start: 11-05-2021 End: 12-05-2021 take 1 tablet by mouth twice daily PHENobarbital 16.2 MG tablet Indications: Seizure disorder Take 1 tablet by mouth 2 times daily. 60 tablet 5 11/05/2021 12/05/2021 Active Start: 11-05-2021 End: 08-24-2025 PHENobarbital 32.4 MG tablet Indications: Focal epilepsy 1 tab po in AM, 1 tab at 1pm, and two tabs at bedtime (7 am,1 pm, 7pm) 120 tablet 5 08/23/2024 08/24/2025 Active Start: 07-24-2020 End: 07-30-2020 PHENobarbital (LUMINAL) tabl et 48.75 mg Start: 07-23-2020 End: 07-29-2020 PHENobarbital (LUMINAL) tabl et 64.8 mg Start: 07-23-2020 End: 07-23-2020 take 45 mg by mouth once daily in the morning 45 mg, Oral, EVERY MORNING, First dose on Anne-Marie 07/23/20 at 0900 Start: 04-16-2020 End: 11-19-2020 PHENobarbital (LUMINAL) 60 M G tablet Indications: 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 10/16/2019 09/11/2024 Discontinued Start: 10-16-2019 PHENobarbitaL (LUMINAL) 30 MG tablet Take 45 mg by mouth AM for * days . 0 10/16/2019 Active Start: 05-17-2019 PHENobarbital (LUMINAL) tablet 64.8 mg Start: 03-19-2019 End: 06-17-2019 take 64.8 mg by mouth three times daily 64.8 mg, Oral, 3 TIMES DAILY, First dose on Mon05/13/19 at 1600 take 2 tablets by mo arh at bedtime PHENobarbitaL 32.4 MG tablet Take 2 (two) tablets (64.8 mg total) by mouth at bedtime . Active take 1 tablet by oly once daily PHENobarbital 30 mg tablet Take 30 mg by mouth once daily. 4pm Active End: 09-20-2023 take 1 tablet by mouth once daily at bedtime phenobarbital 100 MG tablet Take by mouth at bedtime. Takes total dose 364.8mg at 7pm (100mg x3 and 32.4mg x2) QHS 09/20/2023 Discontinued Comment on above: Take 30 mg by mouth once daily. 4pm Take 60 mg by mouth twice daily. phenyleph/pramoxin/gly cr/w.pet (HEMORRHOIDAL CREAM RECT) (20 sources) phenyleph/pramox in/gl ycr/w.pet (HEMORRHOIDAL CREAM RECT) Insert 1 Application into the rectum 2 (two) times a day To affected area am and pm plus as needed . Active phenylephrine hydrochloride 25 mg/ml ophthalmic solution (1 source) alpha-1 Adrenergic Agonist Start: 05-31-20 End: 05-31-20 PHENYLephrine 2.5 % 1 Drop (AK-DILATE, DEWEY-SYNEPHRINE) phenytoin sodium 100 mg extended release oral capsule (20 sources) Anti-epileptic Agent Start: 12-12-19 End: 12-14-19 take 1 capsule by mouth once daily at bedtime 300 mg, Oral, DAILY AT BEDTIME, First dose on Mon12/11/24 at 2100, Until Discontinued, Swallow capsule whole; do not crush, open, or chew. Contact pharmacy if alternate route or dose is needed. Start: 05-15-2024 take 100 mg by mouth once 100 mg, oral, Once, On Mon05/15/24 at 0115, For 1 dose, Hold enteral nutrition at least 1 hour before and 2 hours after dose. Monitor drug levels. HAZARDOUS - use appropriate precautions for handling and disposal. Do not crush, split, or open. 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 Recommend holding TF for 1 hour before and 1 hour after dose. 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 12/05/2019 Active Start: 05-13-2019 take 300 mg by mouth once owen y 300 mg, Oral, NIGHTLY, First dose on Mon05/13/19 at 2100 Tube feeding interaction, obtain physician order to manage. Recommend holding TF for 1 hour before and 1 hour after dose. Start: 04-24-2019 End: 09-11-2024 phenytoin (DILANTIN) 50 mg t ablet Chew and Swallow 1 (one) tablet (50 mg total) every evening . 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 Active Phenytoin Sodium Extended 100 MG Oral Capsule Quantity: 0 Refills: 0 Ordered: 06-Oct-2022 DO Active Comment on above: Take 200 mg by mouth twice daily. polyethylene glycol 3350 90504 mg powder for oral solution (20 sources) Osmotic Laxative Start: 12-17-2024 End: 12-17-2024 polyethylene glycol (MIRALAX) 17 gram powder Indications: constipation Take 17 (seventeen) g by mouth 2 (two) times a day Reasons: constipation. 1020 g 11 12/17/2024 Active Start: 07-31-2023 End: 12-17-2024 polyethylene glycol (Glycola x, Miralax) 17 gram packet Indications: Chronic idiopathic constipation GIVE 1 POWDER PACK BY MOUTH ONCE DAILY *DISSOLVE IN 4-8 OZ WATER/JUICE (ALSO HAS PRN DOSE) *SEND W/CYCLE* 30 each 10 10/17/2024 4:09 PM EST 08/22/2024 Active Polyethylene Glycol 3350 pow d (4 sources) Polyethylene Gly col 3350 powd once daily. Active Polyethylene Gly col 3350 powd once daily. 0 Active Comment on above: once daily. microencapsulated potassium chloride 20 meq extended release oral tablet (12 sources) Start: 08-28-2020 take 1 tablet by mouth once daily potassium chloride (KLOR-CON M) 20 MEQ extended release tablet Indications: Hypokalemia Take 1 tablet by mouth daily DOCU-DOSE 90 tablet 1 08/28/2020 Active Start: 08-10-2020 take 1 tablet by oly th once daily potassium chloride (KLOR-CON M) 20 MEQ extended release tablet Take 1 tablet by mouth daily DOCU-DOSE 30 tablet 0 08/13/2020 Active Start: 07-28-2020 End: 07-28-2020 potassium chloride 10 MEQ/10 0ML IVPB (Peripheral Line) Start: 07-28-2020 End: 07-28-2020 potassium chloride 10 mEq/10 0 mL IVPB (Peripheral Line) Start: 07-25-2020 End: 07-26-2020 potassium chloride 10 mEq/10 0 mL IVPB (Peripheral Line) promethazine hydrochloride 25 mg oral tablet (19 sources) Phenothiazine End: 07-23-2020 take 1 tablet by mouth every six hours as needed promethazine (Phenergan) 25 mg tablet Take 1 tablet (25 mg) by mouth every 6 hours if needed. Active Comment on above: Take 25 mg by mouth every 6 hours as needed. QUEtiapine 50 mg oral tablet (20 sources) Atypical Antipsychotic Start: 12-11-2024 End: 12-13-2024 QUEtiapine (SEROquel) tablet 250 mg Start: 08-19-2024 End: 07-19-2025 take 1 tablet by mouth at bedtime quetiapine 200 MG tablet Indications: Anxiety disorder, unspecified type , Depression, unspecified depression type Take 1 tablet by mouth at bedtime. Total HS dose 250mg 30 tablet 5 01/20/2025 07/19/2025 Active Start: 08-19-2024 End: 07-19-2025 take 1 tablet by mouth twice daily at bedtime QUEtiapine 50 MG tablet Indications: Anxiety disorder, unspecified type , Depression, unspecified depression type Take 1 tablet by mouth 2 times daily. In morning and at bedtime. Total bedtime dose 250mg 60 tablet 5 01/20/2025 07/19/2025 Active Start: 04-24-2024 take 1 tablet by oly th once daily at bedtime quetiapine 200 MG tablet GIVE 1 TABLET BY MOUTH DAILY AT BEDTIME (TOTAL 250MG BEDTIME DOSE) *MD HARE AWARE OF INTXN W/ PHENYTOIN 09/17/21* 30 tablet 4 04/24/2024 Active Start: 04-24-2024 take 1 tablet by oly th twice daily at bedtime QUEtiapine 50 MG tablet GIVE 1 TABLET BY MOUTH TWICE DAILY (TOTAL 250MG BEDTIME DOSE) *MD HARE AWARE OF INTXN W/ PHENYTOIN 09/17/21* 60 tablet 4 04/24/2024 Active Start: 09-18-2023 End: 03-16-2024 take 1 tablet by mouth at bedtime quetiapine 200 MG tablet Take 1 tablet by mouth at bedtime. Total bedtime dose 250mg 30 tablet 5 09/18/2023 03/16/2024 Active Start: 09-18-2023 End: 03-16-2024 take 1 tablet by mouth twice daily at bedtime QUEtiapine 50 MG tablet Take 1 tablet by mouth 2 times daily. In the morning and at bedtime. Total bedtime dose 250mg 60 tablet 5 09/18/2023 03/16/2024 Active Start: 04-04-2023 End: 09-07-2023 take 1 tablet by mouth at bedtime quetiapine 200 MG tablet Take 1 tablet by mouth at bedtime. Total dose 250mg HS 30 tablet 2 06/09/2023 09/07/2023 Active Start: 04-04-2023 End: 09-07-2023 take 1 tablet by mouth twice daily at bedtime QUEtiapine 50 MG tablet Take 1 tablet by mouth 2 times daily. In morning and at bedtime 60 tablet 2 06/09/2023 09/07/2023 Active Start: 02-28-2022 End: 09-27-2022 take 1 tablet by mouth once daily in the morning QUEtiapine 50 MG tablet Take 1 tablet by mouth daily every morning. 90 tablet 0 06/29/2022 09/27/2022 Active Start: 10-27-2021 End: 11-26-2021 take 1 tablet by mouth once daily QUEtiapine 50 MG tablet Take 1 tablet by mouth daily. At 8am. 30 tablet 0 10/27/2021 11/26/2021 Active Start: 07-23-2020 take 75 mg by mouth once daily in the morning 75 mg, Oral, EVERY MORNING, First dose on Anne-Marie 07/23/20 at 0900 Start: 07-22-2020 take 300 mg by mouth once owen y 300 mg, Oral, NIGHTLY, First dose on 07/22/20 at 2215 Start: 05-13-2019 End: 09-11-2024 take 1 tablet by mouth once daily QUEtiapine (SEROQUEL) 300 MG tablet Take 1 (one) tablet (300 mg total) by mouth daily . 01/10/2020 09/11/2024 Discontinued Start: 05-13-2019 End: 07-19-2025 take 1 tablet by mouth once daily in the evening QUEtiapine (SEROQUEL) 25 MG tablet Take 1 (one) tablet (25 mg total) by mouth daily At 1 pm . 01/10/2020 Active Start: 05-13-2019 take 75 mg by mouth once daily in the morning 75 mg, Oral, EVERY MORNING, First dose on 05/13/19 at 1400 Seroquel 75 mg every morning Seroquel 25 mg every day 3pm Seroquel 300 mg every day 8pm QUEtiapine Fumar ate 25 MG Oral Tablet Quantity: 0 Refills: 0 Ordered: 06-Oct-2022 DO Active QUEtiapine Fumar ate 300 MG Oral Tablet Quantity: 0 Refills: 0 Ordered: 06-Oct-2022 DO Active take 3 tablets by mo [facility] once daily in the morning QUEtiapine (SEROQUEL) 50 MG tablet Take 50 mg by mouth every morning Take 3 tablets at 8:00 am 0 Active Comment on above: Take 300 mg by mouth daily at bedtime. Take 25 mg by mouth once daily. Take 50 mg by mouth once daily. sennosides, intermediate 8.6 mg oral tablet (20 sources) Start: 08-30-2023 End: 12-17-2024 take 1 tablet by mouth once daily Senna 8.6 MG tablet Take 1 tablet by mouth daily for 7 days. 7 tablet 0 08/30/2023 09/06/2023 Active Start: 09-30-2021 End: 12-13-2024 take 1 tablet by mouth twice daily sennosides (Senokot) 8.6 mg tablet Indications: Pain in other joint Take 1 tablet (8.6 mg) by mouth 2 times a day. 60 tablet 11 05/06/2024 Active Senna 8.6 MG Ora l Tablet Quantity: 0 Refills: 0 Ordered: 06-Oct-2022 DO Active Comment on above: Take 1 tablet by [facility] twice daily. tamsulosin hydrochloride 0.4 mg oral capsule (20 sources) alpha-Adrenergic Arnulfo Start: 12-01-2021 End: 04-21-2026 take 1 capsule by mouth once daily Tamsulosin HCl 0.4 MG capsule Take 1 capsule by mouth daily. 04/21/2025 04/21/2026 Active Tamsulosin HCl - 0.4 MG Oral Capsule Quantity: 0 Refills: 0 Ordered: 06-Oct-2022 DO Active Comment on above: Take [address] [facility] once daily. tropicamide 10 mg/ml ophthalmic solution (3 sources) Anticholinergic Start: 07-10-2024 End: 07-11-2024 tropicamide 1 % 1 Drop (MYDRIACYL) Start: 07-10-2024 End: 07-11-2024 1 Drop, BOTH EYES, DIRECT ED, Starting on Mon07/10/24 at 1530, Until Anne-Marie 07/11/24 at 0329, Administer for dilation Start: 06-07-2023 End: 06-07-2023 tropicamide 0.5 % 1 Drop (MY ALLEY) vitamin b12 1 mg oral tablet (20 sources) Vitamin B12 Start: 05-26-2025 take 1 tablet by mouth once daily cyanocobalamin (B-12) 1000 MCG tablet Take 1 (one) tablet (1,000 mcg total) by mouth daily . 90 tablet 3 05/26/2025 Active Start: 12-11-2024 End: 12-13-2024 take 1000 ug by mouth once daily in the morning 1,000 mcg, Oral, DAILY EVERY MORNING, First dose on Mon12/11/24 at 1015, Until Discontinued Start: 06-29-2022 take 2 tablets by mo [facility] once daily cyanocobalamin 500 MCG tablet Take 2 tablets by mouth daily. 06/29/2022 Active Start: 2022 End: 09-11-2024 take 1 tablet by mouth once daily cyanocobalamin (Vitamin B-12) 1,000 mcg tablet Indications: Vitamin D deficiency Take 1 tablet (1,000 mcg) by mouth once daily. 30 tablet 11 10/16/2024 12:47 PM EST 06/10/2024 Active cyanocobalamin ( Vitamin B-12) 1,000 mcg tablet Take 100 mcg by mouth once daily. 0 Active take 1 tablet by oly once daily cyanocobalamin 500 MCG tablet Take 500 mcg by mouth daily. 0 Active Comment on above: TAKE 1 TABLET BY LOY ONCE DAILY *OK TO CHARGE* vitamin d 1000 unt oral tablet (3 sources) Start: 05-18-2019 take 1000 [IU] by mouth every week 1,000 Units, Oral, WEEKLY, First dose on 05/18/19 at 0900 take 1 capsule by mo [facility] every week in the morning vitamin D (CHOLECALCIFEROL) 1000 UNIT TA BS tablet Indications: take one cap at 8 AM on Saturdays only Take 1,000 Units by mouth once a week Indications: take one cap at 8 AM on Saturdays only 0 Active Completed/Discontinued Medications Medication Drug Class(es) Dates Sig (Normalized) Sig (Original) Acetaminophen / oxyCODONE (12 sources) Opioid Agonist Start: 08-30-2023 End: 08-30-2023 take 1 tablet by mouth every four hours as needed oxyCODONE-acetami nophen (PERCOCET) 5-325 MG per tablet 1 tablet Start: 08-30-2023 End: 06-27-2024 take 1 tablet by mouth every six hours as needed oxyCODONE-acetaminophen 5-325 MG per tablet Indications: Aftercare following surgery Take 1 tablet by mouth every 6 hours as needed for up to 7 days. 28 tablet 08/30/2023 06/27/2024 Discontinued Start: 08-13-2020 End: 08-20-2020 take 1 tablet by mouth every eight hours as needed for pain oxyCODONE-acetaminophen (PERCOCET) 5-325 MG per tablet Indications: Bowel perforation (HCC) , Perforated viscus Take 1 tablet by mouth every 8 hours as needed (moderate to severe pain) for up to 7 days. DOCU-DOSE 21 tablet 0 08/13/2020 08/20/2020 Start: 08-08-2020 oxyCODONE-acet aminophen (PERCOCET) 5-325 MG per tablet 1 tablet albuterol 5 mg/ml inhalation solution (18 sources) beta2-Adrenergic Agonist Start: 12-11-2024 End: 12-13-2024 take 2.5 mg by inhalation every six hours as needed albuterol (PROVE NTIL) 2.5 mg /3 mL (0.083 %) nebulizer solution Take 3 mL (2.5 mg total) by nebulization 3 (three) times a day as needed for wheezing ADMINISTER 1 VIAL PER NEBULIZER 3 TIMES DAILY NEEDED . Active take 2.5 mg by inhal ation every six hours as needed Albuterol sulfate 2.5 MG/0.5ML Nebu Soln inhalation solution Take 0.5 mL by nebulization every 6 hours as needed for Shortness of Breath, Respiratory Distress or Wheezing. Active calcium carbonate 648 mg oral tablet (20 sources) Start: 12-11-2024 End: 12-13-2024 take 1 tablet by mouth twice daily 648 mg (1 tablet), Oral, 2 TIMES DAILY, First dose on Mon12/11/24 at 1015, Until Discontinued Start: 10-04-2023 End: 12-19-2024 calcium carbonate (TUMS) 200 mg calcium (500 mg) chewable tablet Chew and Swallow 1 (one) tablet (500 mg total) 2 (two) times a day . 60 tablet 11 11/21/2024 Active calcium carbonat e (TUMS) 200 mg calcium (500 mg) chewable tablet Chew and Swallow 1 (one) tablet (500 mg total) daily . Active calcium carbonat e (Tums) 200 mg calcium chewable tablet Chew 1 tablet (500 mg) 2 times a day. 0 Active take 1 tablet by oly th twice daily Calcium Carbonate 600 MG tablet Take 1 tablet by mouth 2 times daily. Takes 500 mg BID 0 Active take 1 tablet by oly th twice daily Calcium Carbonate (CALCIUM 600 PO) Take 1 tablet by mouth 2 times daily 0 Active Calcium Carbonate Antacid (CALCIUM CARBONATE PO) (1 source) End: 08-16-2023 take 1 tablet by mouth twice daily Calcium Carbonate Antacid (CALCIUM CARBONATE PO) Take 1 tablet by mouth 2 times daily. 0 08/16/2023 Discontinued (Formulary change) calcium chloride 0.001 meq/ml / glucose 50 mg/ml / potassium chloride 0.004 meq/ml / sodium chloride 0.103 meq/ml / sodium lactate 0.028 meq/ml injectable solution (2 sources) Start: 07-22-2020 End: 08-08-2020 dextrose 5 % in lactated ringers infusion calcium chloride 0.0014 meq/ml / potassium chloride 0.004 meq/ml / sodium chloride 0.103 meq/ml / sodium lactate 0.028 meq/ml injectable solution (2 sources) Start: 08-30-2023 End: 08-30-2023 Lactated ringers IV solution Start: 07-22-2020 End: 07-22-2020 lactated ringers infusion cephalexin 500 mg oral capsule (5 sources) Cephalosporin Antibacterial Start: 05-21-2020 End: 07-23-2020 cephALEXin (KEFLEX) 500 MG capsule diphenhydrAMINE hydrochloride 25 mg oral tablet (7 sources) Histamine-1 Receptor Antagonist Start: 08-08-2020 End: 08-08-2020 diphenhydrAMINE (BENADRYL) 25 MG capsule Start: 08-08-2020 End: 08-10-2020 diphenhydrAMINE (BENADRYL) t ablet 25 mg Start: 07-29-2020 End: 08-08-2020 diphenhydrAMINE (BENADRYL) i njection 50 mg Start: 07-29-2020 End: 07-29-2020 diphenhydrAMINE (BENADRYL) 5 0 MG/ML injection Start: 07-22-2020 End: 07-22-2020 diphenhydrAMINE (BENADRYL) i njection 25 mg 0.4 ml enoxaparin sodium 100 mg/ml prefilled syringe (3 sources) Low Molecular Weight Heparin Start: 12-11-2024 End: 12-13-2024 inject 40 mg by subcutaneous injection every twenty-four hours 40 mg, Subcutaneous, EVERY 24 HOURS, First dose on Mon12/11/24 at 2100, Until Discontinued, For SUBCUTANEOUS route ONLY: alternate injection sites between left and right abdominal wall, pinching location and avoiding area around navel. If unable to use abdominal sites, may use the front or side of thighs., Indications: DVT/PE prophylaxis Start: 07-23-2020 End: 07-24-2020 enoxaparin (LOVENOX) injecti on 40 mg Start: 05-13-2019 inject 40 mg by subc utaneous injection once daily 40 mg, Subcutaneous, DAILY, First dose on Mon05/13/19 at 1230 ferrous sulfate 325 mg oral tablet (20 sources) Start: 06-29-2022 End: 08-30-2023 take 1 tablet by mouth twice daily Ferrous Sulfate (Iron) 325 (65 Fe) MG tablet Take 1 tablet by mouth 2 times daily. 0 06/29/2022 08/30/2023 Discontinued (Stop Taking at Discharge) take 1 tablet by th once daily at breakfast ferrous sulfate 325 mg (65 mg iron) tabl et Take 325 mg by mouth daily with breakfast. Active Ferrous Sulfate 325 MG CAPS Quantity: 0 Refills: 0 Ordered: 06-Oct-2022 DO Active Comment on above: Take 325 mg by mouth daily with breakfast. 500 ml hetastarch 60 mg/ml injection (1 source) Plasma Volume Informatics Pharmacist Start: 07-23-2020 End: 07-23-2020 hetastarch 6% in 0.9% NaCl infusion 500 mL (HESPAN) infusion 500 mL 1 ml HYDROmorphone hydrochloride 1 mg/ml cartridge (5 sources) Opioid Agonist Start: 08-30-2023 End: 08-30-2023 HYDROmorphone (DILAUDID) injection 0.2 mg Start: 07-29-2020 End: 08-08-2020 HYDROmorphone (DILAUDID) inj ection 0.5 mg Start: 07-26-2020 End: 07-26-2020 HYDROmorphone (DILAUDID) 2 M G/ML injection Start: 07-22-2020 End: 08-08-2020 HYDROmorphone (DILAUDID) inj ection 1.5 mg sodium hypochlorite 2.5 mg/ml topical solution (1 source) Start: 07-29-2020 End: 08-07-2020 Sodium Hypochlorite (DAKINS) 0.25 % external solution 1 ml ketorolac tromethamine 15 mg/ml cartridge (1 source) Nonsteroidal Anti-inflammatory Drug, Cyclooxygenase Inhibitor Start: 07-22-2020 End: 08-08-2020 15 mg, Intravenous, EVERY 6 HOURS PRN, Pain Moderate (4-6), Starting Mon07/22/20 at 2149 Do not administer for more than 5 days levETIRAcetam (20 sources) Start: 12-11-2024 End: 12-13-2024 2,000 mg, Oral, 2 TIMES DAILY, First dose on Mon12/11/24 at 1030, Until Discontinued, Extended release dosage form. Do not crush. Start: 06-27-2024 End: 06-27-2024 take 2 tablets by mouth every twelve hours levETIRAcetam ER 1000 MG Tab SR 24 HR Indications: Generalized idiopathic epilepsy and epileptic syndromes, intractable, without status epilepticus Take 2 tablets by mouth every 12 hours. 360 tablet 1 06/27/2024 06/27/2024 Discontinued Start: 09-15-2021 End: 06-27-2024 take 4 tablets by mouth twice daily levETIRAcetam 500 MG tablet Indications: Focal epilepsy Take 4 tablets by mouth 2 times daily. 240 tablet 5 09/20/2023 06/27/2024 Discontinued Start: 07-22-2020 take 2000 mg by mout h twice daily 2,000 mg, Oral, 2 TIMES DAILY, First dose on Mon07/22/20 at 2230 Do not crush or chew. Start: 07-22-2020 levETIRAcetam (KEPPRA) 500 MG tablet Start: 11-15-2019 take 4 tablets by mo uth twice daily levETIRAcetam (KEPPRA XR) 500 mg 24 hr tablet Take 4 (four) tablets (2,000 mg total) by mouth 2 (two) times a day . 11/15/2019 Active Start: 11-15-2019 take 2 tablets by mo uth twice daily levETIRAcetam (KEPPRA) 1000 MG tablet Take 2 (two) tablets (2,000 mg total) by mouth 2 (two) times a day . 11/15/2019 Active Start: 11-15-2019 take 2 tablets by mo uth once daily levETIRAcetam (KEPPRA) 1000 MG tablet Take 2 (two) tablets (2,000 mg total) by mouth daily . 11/15/2019 Active Start: 05-15-2019 levETIRAcetam (KEPPRA) tablet 1,000 mg Start: 05-13-2019 End: 05-15-2019 levETIRAcetam (KEPPRA) table t 2,000 mg Start: 09-16-2015 End: 05-18-2019 take 2 tablets by mouth twice daily levETIRAcetam (KEPPRA) 1,000 mg tablet Take 2 tablets by mouth twice daily. 0 09/16/2015 Active levETIRAcetam 50 0 MG Oral Tablet Quantity: 0 Refills: 0 Ordered: 06-Oct-2022 DO Active Comment on above: Take 2 tablets by mo uth twice daily. linaclotide 0.29 mg oral capsule (4 sources) Guanylate Cyclase-C Agonist End: 5 take 1 capsule by mouth once daily before breakfast linaCLOtide (Linzess) 290 mcg Take 1 (one) capsule (290 mcg total) by mouth every morning before breakfast . 06/09/2025 Discontinued LORazepam (ATIVAN) injection 1 mg (1 source) Start: 5 End: 5 LORazepam (ATIVAN) injection 1 mg 100 ml magnesium sulfate 10 mg/ml injection (1 source) Start: 0 End: 0 magnesium sulfate 1 g in dextrose 5% 100 mL IVPB metoprolol tartrate (Lopressor) 12.5 mg split tablet (8 sources) End: 4 metoprolol tartrate (Lopressor) 12.5 mg split tablet Take 2 half tablet (25 mg) by mouth 2 times a day. 06/10/2024 Discontinued (Duplicate order) metoprolol tartr ate (Lopressor) 12.5 mg split tablet Take 2 half tablet (25 mg) by mouth 2 times a day. Active metoprolol tartr ate (Lopressor) 12.5 mg split tablet Take 2 half tablet (25 mg) by mouth 2 times a day. 0 Active 1 ml morphine sulfate 4 mg/ml cartridge (2 sources) Opioid Agonist Start: 07-22-2020 End: 07-22-2020 morphine (PF) 4 MG/ML injection Start: 07-22-2020 End: 07-22-2020 morphine (PF) injection 4 mg Ondansetron 4mg/2ml (ZOFRAN) injection 4 mg (1 source) Start: 08-30-2023 End: 08-30-2023 take 4 mg intravenously every four hours as needed Ondansetron 4mg/2ml (ZOFRAN) injection 4 mg piperacillin-tazobacta m (ZOSYN) 3.375 g in dextrose 5 % 50 mL IVPB (mini-bag) (1 source) Start: 07-22-2020 End: 07-22-2020 piperacillin-tazobact am (ZOSYN) 3.375 g in dextrose 5 % 50 mL IVPB (mini-bag) piperacillin-tazobacta m (ZOSYN) 3.375 g in dextrose 5 % 50 mL IVPB extended infusion (mini-bag) (1 source) Start: 07-22-2020 End: 08-08-2020 3.375 g, Intravenous, EVERY 8 HOURS, First dose on Mon07/22/20 at 2245, Until Discontinued PN-Adult 3 in 1 - Standard Electrolytes - Central Line (8 sources) Start: 08-06-2020 End: 08-07-2020 PN-Adult 3 in 1 - Standard Electrolytes - Central Line Start: 08-05-2020 End: 08-06-2020 PN-Adult 3 in 1 - Standard E lectrolytes - Central Line Start: 08-04-2020 End: 08-05-2020 PN-Adult 3 in 1 - Standard E lectrolytes - Central Line Start: 08-03-2020 End: 08-04-2020 PN-Adult 3 in 1 - Standard E lectrolytes - Central Line Start: 08-02-2020 End: 08-03-2020 PN-Adult 3 in 1 - Standard E lectrolytes - Central Line Start: 08-01-2020 End: 08-02-2020 PN-Adult 3 in 1 - Standard E lectrolytes - Central Line Start: 07-31-2020 End: 08-01-2020 PN-Adult 3 in 1 - Standard E lectrolytes - Central Line Start: 07-30-2020 End: 07-31-2020 PN-Adult 3 in 1 - Standard E lectrolytes - Central Line potassium chloride 40 mEq in sodium chloride 0.9 % 500 mL infusion (1 source) Start: 07-27-2020 End: 07-27-2020 potassium chloride 40 mEq in sodium chloride 0.9 % 500 mL infusion povidone-iodine (3M SKIN and NASAL ANTISEPTIC) 5 % topical solution 1 Application (1 source) Start: 08-30-2023 End: 08-30-2023 povidone-iodine (3M SKIN and NASAL ANTISEPTIC) 5 % topical solution 1 Application prochlorperazine 5 mg/ml injectable solution (1 source) Phenothiazine Start: 08-30-2023 End: 08-30-2023 take 5 mg intravenously every hour as needed Prochlorperazine (COMPAZINE) injection 5 mg 1000 ml sodium chloride 9 mg/ml injection (7 sources) Start: 08-30-2023 End: 08-30-2023 Intravenous, at 75 mL/hr, CONTINUOUS, Starting on Mon08/30/23 at 1630, Until Mon08/30/23 at 2021, Post-op/Post-Proc Start: 08-04-2020 sodium chlorid e flush 0.9 % injection 10 mL Start: 07-28-2020 End: 07-28-2020 0.9 % sodium chloride bolus Start: 07-22-2020 End: 07-22-2020 sodium chloride flush 0.9 % injection 10 mL Start: 05-13-2019 10 mL, Intrave nous, EVERY 12 HOURS SCHEDULED (2 times per day), First dose on Mon05/13/19 at 2100 Start: 05-13-2019 take 10 mL intraveno us route once as needed 10 mL, Intravenous, PRN, Line Care, After every IV line use, Starting Mon05/13/19 at 1202 vancomycin 1000 mg injection (2 sources) Glycopeptide Antibacterial Start: 07-30-2020 End: 08-04-2020 vancomycin (VANCOCIN) 1000 mg in 200 mL IVPB Start: 07-28-2020 End: 07-30-2020 vancomycin (VANCOCIN) 1500 m g in 300 mL IVPB Vancomycin HCl in NaCl (Vancocin) 1,250 mg 287.5 ml premade IVPB (1 source) Start: 08-30-2023 End: 08-30-2023 Vancomycin HCl in NaCl (Vancocin) 1,250 mg 287.5 ml premade IVPB Vitamin B12 TABS (7 sources) Vitamin B12 TABS Quantity: 0 Refills: 0 Ordered: 06-Oct-2022 DO Active Problems Active Problems Problem Classification Problem Date Documented Da te Episodic/Chronic Abdominal pain (3 sources) Generalized abdominal pain; Translations: [Unspecified abdominal pain] Onset: 5 Episodic Administrative/social admission (11 sources) Employment problem; Translations: [Occupational circumstances] 05-06-2020 Episodic Allergic reactions (1 source) Allergic disorder of skin; Translations: [Allergic contact dermatitis, unspecified cause] 01-09-2024 Episodic Anxiety disorders (3 sources) Anxiety disorder; Translations: [Anxiety disorder, unspecified] Onset: 5 Chronic Blindness and vision defects (6 sources) Bilateral hyperopia of eyes; Translations: [Hypermetropia, bilateral] Episodic Cataract (4 sources) Bilateral senile combined form cataracts of eyes; Translations: [Combined forms of age-related cataract, bilateral] Chronic Crushing injury or internal injury (8 sources) Injury of urethra; Translations: [Tear of urethra] 08-13-2020 Episodic Deficiency and other anemia (7 sources) Iron deficiency anemia due to blood loss; Translations: [Iron deficiency anemia secondary to blood loss (chronic)] Chronic Delirium dementia and amnestic and other cognitive disorders (20 sources) Dementia associated with another disease; Translations: [Dementia] Onset: 4 11-05-2015 Chronic Developmental disorders (20 sources) Intellectual disability; Translations: [Unspecified intellectual disabilities] Onset: 2 09-06-2021 Chronic Disorders of lipid metabolism (20 sources) Dyslipidemia; Translations: [Hyperlipidemia] Onset: 6 Resolved: 0 06-16-2020 Chronic Epilepsy; convulsions (20 sources) Seizure disorder; Translations: [Epilepsy] Onset: 2 06-15-2020 Chronic Esophageal disorders (20 sources) Gastroesophageal reflux disease without esophagitis; Translations: [Gastro-esophageal reflux disease without esophagitis] Onset: 5 08-16-2023 Chronic Essential hypertension (20 sources) Hypertensive disorder; Translations: [Essential (primary) hypertension] Onset: 3 06-15-2020 Chronic External Injury - Fall (10 sources) Unspecified fall, initial encounter; Translations: [Fall in (into) shower or empty bathtub, initial encounter] Onset: 7 06-01-2022 Comment on above: FALL Gastrointestinal hemorrhage (4 sources) Rectal hemorrhage; Translations: [Hemorrhage of anus and rectum] Onset: 5 06-24-2025 Episodic Genitourinary symptoms and ill-defined conditions (20 sources) Urinary incontinence; Translations: [Urinary incontinence, unspecified] Onset: 3 06-07-2023 Chronic Genitourinary symptoms and ill-defined conditions (20 sources) Increased frequency of urination; Translations: [Urinary frequency] Onset: 3 06-07-2023 Episodic Headache; including migraine (1 source) Headache; including migraine; Translations: [Headache, unspecified] Onset: 3 Hyperplasia of prostate (20 sources) Benign prostatic hypertrophy with outflow obstruction; Translations: [Benign localized hyperplasia of prostate with urinary obstruction and other lower urinary tract symptoms (LUTS)] Onset: 3 06-07-2023 Chronic Intestinal infection (1 source) Diarrhea of presumed infectious origin; Translations: [Diarrhea of presumed infectious origin] Episodic Mood disorders (20 sources) Mood disorder; Translations: [Depressive disorder] Onset: 6 Resolved: 4 06-15-2020 Chronic Mood disorders (2 sources) Mood disorders; Translations: [Depression, unspecified] Onset: 2 Nutritional deficiencies (20 sources) Vitamin D deficiency; Translations: [Vitamin D deficiency, unspecified] Onset: 0 05-08-2023 Chronic Other bone disease and musculoskeletal deformities (1 source) Other idiopathic scoliosis, lumbar region; Translations: [Other idiopathic scoliosis, lumbar region] Onset: 7 Chronic Other connective tissue disease (1 source) Neurological deficit; Translations: [Other symptoms and signs involving the nervous system] Episodic Other connective tissue disease (13 sources) Recurrent falls ; Translations: [Recurrent falls while walking] Onset: 5 06-09-2015 Other eye disorders (3 sources) Physiologic anisocoria; Translations: [Anisocoria] 06-07-2023 Chronic Other gastrointestinal disorders (1 source) Diarrhea; Translations: [Diarrhea, unspecified type] Episodic Other gastrointestinal disorders (7 sources) History of bowel obstruction; Translations: [Personal history of other diseases of digestive system] Episodic Other injuries and conditions due to external causes (1 source) History of fall; Translations: [History of fall] Episodic Other injuries and conditions due to external causes (4 sources) Closed injury of head; Translations: [Head injury, unspecified] 12-01-2021 Episodic Other injuries and conditions due to external causes (1 source) Swallowed foreign body; Translations: [Foreign body ingestion, initial encounter] Episodic Other injuries and conditions due to external causes (2 sources) Facial laceration ; Translations: [Open wound of face, unspecified site, without mention of complication] 12-01-2021 Episodic Other injuries and conditions due to external causes (1 source) Unspecified injury of head, initial encounter; Translations: [Unspecified injury of head, initial encounter] Onset: 7 Other lower respiratory disease (2 sources) Hypoxemia; Translations: [Hypoxemia] Onset: 5 Episodic Other lower respiratory disease (2 sources) Orthopnea; Translations: [Orthopnea] Onset: 5 Episodic Other lower respiratory disease (2 sources) Dyspnea, unspecified; Translations: [Dyspnea, unspecified] Onset: 5 Episodic Other nervous system disorders (1 source) Other chronic pain; Translations: [Other chronic pain] Onset: 2 Chronic Other nervous system disorders (2 sources) Acute pain due to trauma; Translations: [Acute pain due to trauma] Onset: 5 Episodic Other non-traumatic joint disorders (2 sources) Pain in left shoulder; Translations: [Pain in left shoulder] Onset: 9 Episodic Other non-traumatic joint disorders (2 sources) Pain in right shoulder; Translations: [Pain in right shoulder] Onset: 5 Episodic Other nutritional; endocrine; and metabolic disorders (13 sources) Developmental delay; Translations: [Developmental delay] Onset: 5 07-08-2015 Chronic Other nutritional; endocrine; and metabolic disorders (20 sources) Hyperammonemia; Translations: [Disorder of urea cycle metabolism, unspecified] Onset: 5 06-10-2015 Chronic Peripheral and visceral atherosclerosis (8 sources) Peripheral vascular disease; Translations: [Peripheral vascular disease, unspecified] Onset: 5 01-31-2024 Chronic Peritonitis and intestinal abscess (1 source) Acute peritonitis; Translations: [Acute peritonitis (HCC)] Episodic Residual codes; unclassified (20 sources) Sleep apnea; Translations: [Sleep apnea, unspecified] Onset: 4 10-12-2013 Chronic Residual codes; unclassified (13 sources) Insomnia with sleep apnea; Translations: [Insomnia with sleep apnea] Onset: 3 05-14-2015 Chronic Residual codes; unclassified (20 sources) Obstructive sleep apnea syndrome; Translations: [Obstructive sleep apnea (adult) (pediatric)] Onset: 5 06-21-2023 Chronic Residual codes; unclassified (15 sources) Past history of procedure; Translations: [Presence of other specified functional implants] Onset: 4 09-04-2023 Chronic Residual codes; unclassified (2 sources) Obstructive sleep apnea (adult) (pediatric); Translations: [Obstructive sleep apnea (adult) (pediatric)] Onset: 5 Chronic Residual codes; unclassified (1 source) Altered mental status; Translations: [Altered mental status, unspecified altered mental status type] Episodic Residual codes; unclassified (2 sources) Edema, unspecified; Translations: [Edema, unspecified] Onset: 5 Episodic Respiratory failure; insufficiency; arrest (adult) (2 sources) Chronic respiratory failure with hypoxia; Translations: [Chronic respiratory failure with hypoxia] Onset: 5 Chronic Septicemia (except in labor) (2 sources) Sepsis, unspecified organism; Translations: [Sepsis, unspecified organism] Onset: 5 Episodic Skin and subcutaneous tissue infections (13 sources) Cellulitis of left upper limb; Translations: [Cellulitis of left upper extremity] 06-13-2015 Spondylosis; intervertebral disc disorders; other back problems (20 sources) Other intervertebral disc degeneration, thoracic region; Translations: [Cervical spondylosis] Onset: 7 05-22-2021 Chronic Spondylosis; intervertebral disc disorders; other back problems (1 source) Herniation of nucleus pulposus of cervical intervertebral disc; Translations: [HNP (herniated nucleus pulposus), cervical] Thyroid disorders (20 sources) Hypothyroidism; Translations: [Hypothyroidism, unspecified] Onset: 3 06-15-2020 Chronic Unclassified (2 sources) hypothyroidism / hypothyroidism() Onset: 7 Unclassified (2 sources) htn / htn() Onset: 7 Unclassified (2 sources) seizures / seizures() Onset: 7 Unclassified (1 source) seizure (see order) / seizure (see order)() Onset: 7 Unclassified (1 source) DYSLIPIDEMIA / DYSLIPIDEMIA() Onset: 7 Unclassified (1 source) Seizure disorder / Seizure disorder() Onset: 7 Unclassified (1 source) DILANTIN THERAPY / DILANTIN THERAPY() Onset: 7 Unclassified (1 source) PB USE / PB USE() Onset: 7 Unclassified (1 source) ELEVATED LEVEL / ELEVATED LEVEL() Onset: 7 Unclassified (1 source) Seizures; Dilantin use; falls / Seizures; Dilantin use; falls() Onset: 7 Unclassified (14 sources) Intellectual disability; Translations: [Intellectual disability] Onset: 2 06-15-2020 Unclassified (2 sources) Contusion of right elbow; Translations: [Contusion of right elbow, initial encounter] Unclassified (2 sources) FELL OUT OF WHEELCHAIR 12-01-2021 Comment on above: FELL OUT OF WHEELCHA IR Unclassified (1 source) Need for tetanus, diphtheria, and acellular pertussis (Tdap) vaccine 12-01-2021 Unclassified (6 sources) CERVICAL SPINAL INFUSION JASMIN LOWER EXTREMITY WEAKNESS 01-31-2022 Comment on above: CERVICAL SPINAL INFU SUNNI JASMIN LOWER EXTREMITY WEAKNESS Unclassified (2 sources) HEAD INJ 07-22-2022 Comment on above: HEAD INJ Unclassified (2 sources) POSITIVE BLOOD STOOL TEST 07-06-2022 Comment on above: POSITIVE BLOOD STOOL TEST Unclassified (1 source) Scalp abrasion 07-22-2022 Unclassified (1 source) 6 MOS W/ PSA 07-15-2022 Comment on above: 6 MOS W/ PSA Unclassified (1 source) Forehead laceration 09-19-2022 Unclassified (1 source) Traumatic hematoma of forehead 09-19-2022 Unclassified (2 sources) ER Follow-up; Translations: [ER Follow-up] Onset: 4 Unclassified (1 source) ICD-10 ERRONEOUS ENCOUNTER-DISREGARD; Translations: [ICD-10 ERRONEOUS ENCOUNTER-DISREGARD] Onset: 5 Unclassified (2 sources) Nail Care Onset: 5 Past or Other Problems Problem Classification Problem Date Documented Da te Episodic/Chronic Attention-deficit, conduct, and disruptive behavior disorders (3 sources) Other symptoms and signs involving appearance and behavior; Translations: [Other symptoms and signs involving appearance and behavior] Onset: 04-15-2022 Episodic Biliary tract disease (20 sources) Chronic cholecystitis; Translations: [Chronic cholecystitis] Onset: 09-20-2022 09-20-2022 Episodic Deficiency and other anemia (20 sources) Anemia; Translations: [Anemia, unspecified] Onset: 08-13-2020 08-13-2020 Episodic Deficiency and other anemia (2 sources) Iron deficiency anemia, unspecified; Translations: [Iron deficiency anemia, unspecified] Onset: 06-02-2023 Episodic Diabetes mellitus without complication (6 sources) Prediabetes; Translations: [Prediabetes] Onset: 02-28-2024 08-16-2023 Episodic E Codes: Fall (6 sources) Fall; Translations: [Unspecified fall] Onset: 06-06-2021 09-19-2022 Episodic E Codes: Struck by; against (1 source) Striking against or struck by other objects, initial encounter; Translations: [Striking against or struck by other objects, init encntr] Onset: 07-22-2022 Episodic Epilepsy; convulsions (20 sources) Seizure; Translations: [Unspecified convulsions] Onset: 06-09-2015 Resolved: 05-30-2024 05-13-2019 Episodic Comment on above: SEIZURES Fluid and electrolyte disorders (8 sources) Hypokalemia; Translations: [Hypokalemia] Resolved: 08-13-2020 08-13-2020 Episodic Headache; including migraine (13 sources) Headache; Translations: [Headache] Onset: 06-26-2012 05-14-2015 Episodic Hemorrhoids (20 sources) Hemorrhoids; Translations: [Unspecified hemorrhoids] Onset: 12-17-2024 12-17-2024 Episodic Immunizations and screening for infectious disease (20 sources) Patient encounter status; Translations: [Encounter for screening for infections with a predominantly sexual mode of transmission] Onset: 12-15-2023 Episodic Malaise and fatigue (20 sources) Asthenia; Translations: [Weakness] Onset: 05-15-2021 09-06-2021 Episodic Mood disorders (20 sources) Mood disorder due to a general medical condition; Translations: [Mood disorder due to known physiological condition, unspecified] Onset: 09-11-2024 09-11-2024 Episodic Mycoses (19 sources) Onychomycosis; Translations: [Tinea unguium] Onset: 01-31-2025 05-06-2020 Episodic Nutritional deficiencies (5 sources) Deficiency of other specified B group vitamins; Translations: [Cobalamin deficiency] Onset: 06-02-2023 Episodic Open wounds of head; neck; and trunk (20 sources) Scalp laceration; Translations: [Open wound of abdominal wall] Onset: 08-20-2020 08-20-2020 Episodic Other aftercare (1 source) Other radiographer cardiac catheterization (current) drug therapy; Translations: [Other radiographer cardiac catheterization (current) drug therapy] Onset: 06-01-2022 Episodic Other aftercare (16 sources) Surgical follow-up; Translations: [Encounter for other specified surgical aftercare] Onset: 08-30-2023 08-30-2023 Episodic Other bone disease and musculoskeletal deformities (1 source) Segmental and somatic dysfunction of lumbar region; Translations: [Segmental and somatic dysfunction of lumbar region] Onset: 06-26-2017 Episodic Other connective tissue disease (20 sources) Paraparesis; Translations: [Other musculoskeletal symptoms referable to limbs] Onset: 06-07-2023 Episodic Other connective tissue disease (20 sources) Recurrent falls ; Translations: [Repeated falls] Onset: 06-09-2015 09-06-2021 Episodic Other connective tissue disease (20 sources) History of cervical spine fusion; Translations: [Arthrodesis status] Onset: 06-07-2023 Episodic Other connective tissue disease (4 sources) Other symptoms and signs involving the musculoskeletal system; Translations: [Other musculoskeletal symptoms referable to limbs] Onset: 05-02-2022 09-20-2024 Episodic Other connective tissue disease (3 sources) Arthrodesis status; Translations: [Arthrodesis status] Onset: 05-02-2022 Episodic Other diseases of kidney and ureters (2 sources) Other obstructive and reflux uropathy; Translations: [Other obstructive and reflux uropathy] Onset: 09-11-2024 Episodic Other gastrointestinal disorders (8 sources) Perforation of intestine; Translations: [Bowel perforation] Resolved: 08-13-2020 08-13-2020 Episodic Other gastrointestinal disorders (20 sources) Oral phase dysphagia; Translations: [Dysphagia, oral phase] Onset: 06-07-2023 06-07-2023 Episodic Other gastrointestinal disorders (1 source) Dysphagia, oral phase; Translations: [Dysphagia, oral phase] Onset: 06-16-2022 Episodic Other gastrointestinal disorders (19 sources) Chronic constipation; Translations: [Other constipation] Onset: 12-17-2024 12-17-2024 Episodic Other gastrointestinal disorders (2 sources) Other constipation; Translations: [Other constipation] Onset: 12-17-2024 Episodic Other injuries and conditions due to external causes (20 sources) Injury of head; Translations: [Unspecified injury of head, initial encounter] Onset: 09-06-2021 05-06-2020 Episodic Other injuries and conditions due to external causes (4 sources) Unspecified injury of head, initial encounter; Translations: [Unspecified injury of head, initial encounter] Onset: 06-06-2021 Episodic Other liver diseases (20 sources) Alkaline phosphatase raised; Translations: [Abnormal levels of other serum enzymes] Onset: 05-16-2021 05-08-2023 Episodic Other lower respiratory disease (20 sources) Hypoxia; Translations: [Hypoxemia] Onset: 10-26-2024 10-26-2024 Episodic Other nervous system disorders (13 sources) Abnormal involuntary movement; Translations: [Abnormal involuntary movement] Onset: 02-13-2014 05-14-2015 Episodic Other nervous system disorders (11 sources) Impaired cognition; Translations: [Cognitive impairment] Onset: 09-20-2019 09-20-2019 Episodic Other nervous system disorders (20 sources) Involuntary movement; Translations: [Unspecified abnormal involuntary movements] Onset: 02-13-2014 05-08-2023 Episodic Other non-traumatic joint disorders (1 source) Pain in right knee; Translations: [Pain in right knee] Onset: 06-14-2017 Episodic Other nutritional; endocrine; and metabolic disorders (20 sources) Developmental delay; Translations: [Unspecified lack of expected normal physiological development in childhood] Onset: 07-08-2015 Episodic Other screening for suspected conditions (not mental disorders or infectious disease) (20 sources) Raised prostate specific antigen; Translations: [Elevated prostate specific antigen [PSA]] Onset: 06-02-2023 06-08-2023 Episodic Poisoning by other medications and drugs (13 sources) Adverse reaction to drug; Translations: [Adverse effects of medication] Onset: 02-13-2014 02-13-2014 Episodic Residual codes; unclassified (8 sources) Delirium; Translations: [Delirium] Resolved: 08-13-2020 08-13-2020 Episodic Residual codes; unclassified (3 sources) History of clinical finding in subject; Translations: [Personal history of other specified diseases] Resolved: 02-08-2023 Episodic Residual codes; unclassified (2 sources) Acquired absence of other specified parts of digestive tract; Translations: [Acquired absence of other specified parts of digestive tract] Onset: 12-17-2024 Episodic Schizophrenia and other psychotic disorders (20 sources) Psychotic disorder; Translations: [Schizophrenia] Onset: 05-06-2020 Resolved: 09-18-2023 05-06-2020 Chronic Skull and face fractures (20 sources) Fracture of nasal bones, initial encounter for open fracture; Translations: [Fracture of orbit] Onset: 06-06-2014 06-15-2020 Episodic Spondylosis; intervertebral disc disorders; other back problems (20 sources) Cervicalgia; Translations: [Spinal stenosis in cervical region] Onset: 06-26-2017 Resolved: 07-13-2021 03-31-2020 Episodic Superficial injury; contusion (5 sources) Abrasion of forehead; Translations: [Abrasion of scalp] Onset: 07-22-2022 07-22-2022 Episodic Thyroid disorders (2 sources) Atrophy of thyroid (acquired); Translations: [Atrophy of thyroid (acquired)] Onset: 06-02-2023 Episodic Unclassified (1 source) PB USE; Translations: [PB USE] Onset: 07-18-2017 Unclassified (1 source) DILANTIN THERAPY; Translations: [DILANTIN THERAPY] Onset: 04-13-2017 Unclassified (1 source) ELEVATED LEVEL; Translations: [ELEVATED LEVEL] Onset: 04-11-2017 Unclassified (1 source) Seizures; Dilantin use; falls; Translations: [Seizures; Dilantin use; falls] Onset: 04-07-2017 Unclassified (20 sources) Patient encounter status; Translations: [Colon cancer screening] Onset: 07-09-2014 Resolved: 11-23-2017 11-23-2017 Unclassified (8 sources) Viscus structure finding; Translations: [Perforated viscus] Onset: 07-22-2020 Resolved: 08-13-2020 08-13-2020 Unclassified (7 sources) Onset: 08-06-2021 Resolved: 04-03-2024 08-06-2021 Unclassified (1 source) NOT FEELING WELL 02-08-2022 Comment on above: NOT FEELING WELL Unclassified (1 source) ICD-10 ERRONEOUS ENCOUNTER-DISREGARD; Translations: [ICD-10 ERRONEOUS ENCOUNTER-DISREGARD] Onset: 09-24-2024 Urinary tract infections (20 sources) Recurrent urinary tract infection; Translations: [Urinary tract infection, site not specified] Onset: 05-16-2021 05-08-2023 Episodic Results Test Name Value Interpretation Reference Range Facility COMPREHENSIVE METABOLIC PANE L W/ANION GAPon 12-19-2024 Albumin [Mass/Vol] 4.4 g/dL Normal 3.6-5.1 [facility] Comment on above: Performed By: #### 9 1431, 5363, 8472, [id number] #### [facility] [address] [address] Membership Coordinator: Jordon Langford MD ALP [Catalytic activity/Vol] 129 U/L Normal 35-144 [facility] Comment on above: Performed By: #### 9 1431, 5363, 8472, 72319 #### [facility] [address] [address] Membership Coordinator: Jordon Langford MD ALT [Catalytic activity/Vol] 39 U/L Normal 9-46 [facility] Comment on above: Performed By: #### 9 1431, 5363, 8472, 48562 #### [facility] of [address], [address] [place] [address] Membership Coordinator: Jordon Langford MD AST [Catalytic activity/Vol] 24 U/L Normal 10-35 [facility] Comment on above: Performed By: #### 9 1431, 5363, 8472, [id number] #### [facility] of [address], [address] [place] [address] Membership Coordinator: Jordon Langford MD Bilirubin [Mass/Vol] 0.2 mg/dL Normal 0.2-1.2 [facility] Comment on above: Performed By: #### 9 1431, 5363, 8472, 14856 #### [facility] of [address], [address] [place] [address] Membership Coordinator: Jordon Langford MD Calcium [Mass/Vol] 9.3 mg/dL Normal 8.6-10.3 [facility] Comment on above: Performed By: #### 9 1431, 5363, 8472, 43480 #### [facility] of [address], [address] [place] [address] Membership Coordinator: Jordon Langford MD Chloride [Moles/Vol] 98 mmol/L Normal 98-110 [facility] Comment on above: Performed By: #### 9 1431, 5363, 8472, 70267 #### [facility] of [address], [address] [place] [address] Membership Coordinator: Jordon Langford MD CO2 [Moles/Vol] 33 mmol/L High 20-32 [facility] Comment on above: Performed By: #### 9 1431, 5363, 8472, 13469 #### [facility] of [address], [address] [place] [address] Membership Coordinator: Jordon Langford MD Creatinine [Mass/Vol] 0.55 mg/dL Low 0.70-1.35 [facility] Comment on above: Performed By: #### 9 1431, 5363, 8472, 32828 #### [facility] of [place] [address] Membership Coordinator: Jordon Langford MD ELECTROLYTE BALANCE 7 mmol/L (calc) Normal 7-17 [facility] Comment on above: Performed By: #### 9 1431, 5363, 8472, 27012 #### [facility] [place] [address] Membership Coordinator: Jordon Langford MD GFR/1.73 sq M.predicted among non-blacks MDRD (S/P/Bld) [Vol rate/Area] 110 mL/min/{1.73_m2} Normal > OR = 60 [facility] Comment on above: Performed By: #### 9 1431, 5363, 8472, 22474 #### [facility] of [place] [address] Membership Coordinator: Jordon Langford MD Glucose [Mass/Vol] 69 mg/dL Normal 65-99 [facility] Comment on above: Result Comment: Fasting reference interval Performed By: #### 9 1431, 5363, 8472, 14572 #### [facility] [place] [address] Membership Coordinator: Jordon Langford MD Potassium [Moles/Vol] 4.2 mmol/L Normal 3.5-5.3 [facility] Comment on above: Performed By: #### 9 1431, 5363, 8472, 77424 #### [facility] [place] [address] Membership Coordinator: Jordon Langford MD Protein [Mass/Vol] 7.9 g/dL Normal 6.1-8.1 [facility] Comment on above: Performed By: #### 9 1431, 5363, 8472, 67988 #### [facility] of [address], [address] [place] [address] Membership Coordinator: Jordon Langford MD Sodium [Moles/Vol] 138 mmol/L Normal 135-146 [facility] Comment on above: Performed By: #### 9 1431, 5363, 8472, 19457 #### [facility] [address], [address] [place] [address] Membership Coordinator: Jordon Langford MD Urea nitrogen [Mass/Vol] 11 mg/dL Normal 7-25 [facility] Comment on above: Performed By: #### 9 1431, 5363, 8472, 51830 #### [facility] [address], [address] [place] [address] Membership Coordinator: Jordon Langford MD HEPATITIS C AB W/REFL TO HCV RNA, QN, PCRon 12-19-2024 HEPATITIS C ANTIBODY Non-Reactive Normal NON-REACTIVE [facility] Comment on above: Result Comment: HCV antibody was non-reactive. There is no laboratory evidence of HCV infection. In most cases, no further action is required. However, if recent HCV exposure is suspected, a test for HCV RNA (test code 20977) is suggested. For additional information please refer to http://education.Sgrouples/faq/UBL55u8 (This link is being provided for informational/ educational purposes only.) Performed By: #### 9 1431, 5363, 8472, 84319 #### [facility] [address], [address] [place] [address] Membership Coordinator: Jordon Langford MD HIV 1/2 ANTIGEN/ANTIBODY,FOU RTH GENERATION W/RFLon 12-19-2024 HIV AG/AB, 4TH GEN Non-Reactive Normal NON-REACTIVE [facility] Comment on above: Result Comment: HIV- 1 antigen and HIV-1/HIV-2 antibodies were not detected. There is no laboratory evidence of HIV infection. PLEASE NOTE: This information has been disclosed to you from records whose confidentiality may be protected by state law. If your state requires such protection, then the state law prohibits you from making any further disclosure of the information without the specific written consent of the person to whom it pertains, or as otherwise permitted by law. A general authorization for the release of medical or other information is NOT sufficient for this purpose. For additional information please refer to http://education.Sgrouples/faq/ROF621 (This link is being provided for informational/ educational purposes only.) The performance of this assay has not been clinically validated in patients less than 2 years old. Performed By: #### 9 1431, 5363, 8472, 69816 #### [facility] [address], [address] [place] [address] Membership Coordinator: Jordon Langford MD PSA, TOTALon 12-19-2024 PSA, TOTAL 2.35 ng/mL Normal < OR = 4.00 [facility] Comment on above: Result Comment: The total PSA value from this assay system is standardized against the WHO standard. The test result will be approximately 20% lower when compared to the equimolar-standardized total PSA (Ricci [place]). Comparison of serial PSA results should be interpreted with this fact in mind. This test was performed using the Siemens chemiluminescent method. Values obtained from different assay methods cannot be used interchangeably. PSA levels, regardless of value, should not be interpreted as absolute evidence of the presence or absence of disease. Performed By: #### 9 1431, 5363, 8472, 32644 #### [facility] [address], [address] [place] [address] Membership Coordinator: Jordon Langford MD T-SPOT TB SCREENon 5 [place] - T-SPOT TB Negative Normal [facility] Comment on above: Order Comment: Ryan lr see scanned result for additional information Performed By: #### 4 [id number] #### [facility] [address] [place] [address] TSPOT CARDIAC RHYTHMon 12-13-2024 [facility] GENERAL PROCEDUREon 12-14-19 25 Mya Jim MD - 12/13/2024 2:54 PM EDT EMU Video-EEG MONITORING STUDY (SUMMARY) INDICATION: This EEG study was requested to confirm patient's diagnosis by characterizing their habitual spells both semiologically and electrographically. HISTORY: 64 y.o. left handed male with a past medical history significant for Developmental delay, HTN, HLD, Hypothyroidism, Intractable epilepsy s/p VNS, Mental retardation, Recurrent UTI, JAIME, and Cervical spinal stenosis who presents for spell capture and medication adjustments. His spells/events began 6 months, febrile. Aura: none. Typical event consists of loud vocalization, limb stiffening and unresponsiveness for a minute followed by confusion/fatigue. Originally occurring 2-3 times per month. Historically difficult to manage seizures on multiple AEDs RECORDING: STUDY START: 11:00 on 12/11/24 STUDY STOP: 11:53 on 12/13/24 TECHNIQUE: This is an epilepsy monitoring study with 21 channel video-EEG of good technical quality obtained using scalp applied electrodes in the International 10-20 system of electrode placement. One channel was reserved for EKG monitoring. Recording was performed referentially and re-montaged for optimal review. This study was continuously monitored during recording. FINDINGS: 1. Background: The background is continuous with a low amplitude somewhat well-formed no unequivocal posterior dominant rhythm. The anterior background demonstrates mild diffuse slowing with excess 5-6 Hz moderate amplitude theta. 2. Focal Abnormalities: There are no focal or lateralized abnormalities noted in the background. 3. Interictal Abnormalities: No epileptiform discharges are noted in the recording. 4. Ictal Abnormalities: A single electro-clinical seizure event was noted to occur at 08:15 on 12/13/24. Clinically, the patient was lying on his RIGHT side under a sheet occluding the semiology which appeared initially tonic and evolving to clonic. Electrographically, this event began with generalized moderate amplitude rhythmic beta (13 Hz) that after approximately eight (8) seconds began to break down into arrhythmic and then discrete generalized discharges consistent with a generalized from onset GTC with total duration of 37 seconds. 5. Clinical Events: No clinical events are noted in review of the video. 6. HV: Hyperventilation was not performed. 7. PS: Photic stimulation produced a minimal normal driving response. 8. Sleep: Normal awake, drowsy, and asleep states are noted in the recording. 9. EKG: A one-channel EKG was recorded primarily for artifact assessment. IMPRESSION: This is an abnormal 2-day inpatient video-EEG monitoring study due to the presence of continuous diffuse slowing of the background rhythms and a single electro-clinical seizure event was noted to occur at 08:15 on 12/13/24. Clinically, the patient was lying on his RIGHT side under a sheet occluding the semiology which appeared initially tonic and evolving to clonic. Electrographically, this event began with generalized moderate amplitude rhythmic beta (13 Hz) that after approximately eight (8) seconds began to break down into arrhythmic and then discrete generalized discharges consistent with a generalized from onset GTC with total duration of 37 seconds. CLINICAL CORRELATION: This pattern is consistent along with the broader clinical picture is consistent with a diagnosis of symptomatic generalized epilepsy. Clinical correlation is advised. Baldo Jim MD, MSE Maintenance Machine Repairer of Neurology Department of Neurology - Epilepsy Division [facility] Radiology Study observation (narrative) [facility] LEVETIRACETAM LEVELon 2024 Interpretation and review of laboratory results Abnormal [facility] levETIRAcetam [Mass/Vol] 45.6 ug/mL High [facility] Comment on above: ADDITIONAL INFORMATION This test was developed and its performance characteristics determined by [facility] in a manner consistent with CLIA requirements. This test has not been cleared or approved by the U.S. Food and Drug Administration. Test Performed by: [place] [address] Boiler Blower: Maria Fernanda Jansen Ph.D.; CLIA# [id number] [facility] LACOSAMIDE, SERUMon 12-13-19 25 Lacosamide [Mass/Vol] 6.6 [facility] Comment on above: ADDITIONAL INFORMATION This test was developed and its performance characteristics determined by [facility] in a manner consistent with CLIA requirements. This test has not been cleared or approved by the U.S. Food and Drug Administration. Test Performed by: [facility] [address] [place] [address] Boiler Blower: Maria Fernanda Jansen Ph.D.; CLIA# [id number] [facility] PLATELET COUNTon 12-12-2024 Interpretation and review of laboratory results Normal [facility] Platelet mean volume (Bld) [Entitic vol] 10.4 fL 8.7 - 12.3 fL [facility] Platelets (Bld) [#/Vol] 239 10*3/uL 146 - 337 K/uL [facility] Platelet mean volume (Bld) [Entitic vol] 10.4 fL Normal 8.7-12.[address] [facility] Comment on above: Performed By: #### P LAT #### [facility] (DEFAULT) [address] [place] [address] Platelets (Bld) [#/Vol] 239 10*3/uL Normal 146-[address] [facility] Comment on above: Performed By: #### P LAT #### [facility] (DEFAULT) [address] [place] [address] CALCIUMon 12-11-2024 Calcium [Mass/Vol] 8.9 mg/dL 8.6 - 10. 5 mg/dL [facility] Calcium [Mass/Vol] 8.9 mg/dL Normal 8.6-10.5 [facility] Comment on above: Performed By: #### C A, MGO, CHM7, HFP #### [facility] (DEFAULT) [address] [place] [address]162 CBC,PLATELETSon 12-11-2024 Erythrocyte distribution width (RBC) [Ratio] 13.3 % 10.9 - 14.3 % [facility] Hematocrit (Bld) [Volume fraction] 43.6 % 39.6 - 48.8 % [facility] Hemoglobin (Bld) [Mass/Vol] 14.5 g/dL 13.4 - 16.8 g/dL [facility] Interpretation and review of laboratory results Normal [facility] MCH (RBC) [Entitic mass] 31.3 pg 26.1 - 33.3 pg [facility] MCHC (RBC) [Mass/Vol] 33.3 g/dL 31.9 - 36.5 g/dL [facility] MCV (RBC) [Entitic vol] 94 fL 79.0 - 94.5 fL [facility] Platelet mean volume (Bld) [Entitic vol] 10.7 fL 8.7 - 12.3 fL [facility] Platelets (Bld) [#/Vol] 264 10*3/uL 146 - 337 K/uL [facility] RBC (Bld) [#/Vol] 4.64 10*6/uL [facility] WBC (Bld) [#/Vol] 8.21 10*3/uL 3.73 - 10. 10 K/uL [facility] Hematocrit (Bld) [Volume fraction] 43.6 % Normal 39.6-48.[address] [facility] Comment on above: Performed By: #### H [facility] #### [facility] (DEFAULT) [address] [place] [address] Hemoglobin (Bld) [Mass/Vol] 14.5 g/dL Normal 13.4-16.[address] [facility] Comment on above: Performed By: #### H EMO #### [facility] (DEFAULT) [address] [place] [address]120 MCV (RBC) [Entitic vol] 94.0 fL Normal 79.0-94.[address] [facility] Comment on above: Performed By: #### H EMOGC #### [facility] (DEFAULT) [address] [place] [address] 37737 Mean Cell Hgb 31.3 pg Normal 26.1-33.[address] [facility] Comment on above: Performed By: #### H EMOGC #### [facility] (DEFAULT) [address] [place] [address] Mean Cell Hgb Conc 33.3 g/dL Normal 31.9-36.5 [facility] Comment on above: Performed By: #### H EMO #### [facility] (DEFAULT) [address] [place] [address] 76198 Platelet mean volume (Bld) [Entitic vol] 10.7 fL Normal 8.7-12.[address] [facility] Comment on above: Performed By: #### H EMO #### [facility] (DEFAULT) [address] [address] Platelets (Bld) [#/Vol] 264 10*3/uL Normal 146-[address] [facility] Comment on above: Performed By: #### H EMO #### [facility] (DEFAULT) [address] [place] [address] 58693 RBC (Bld) [#/Vol] 4.64 10*6/uL Normal 4.38-5.[address] [facility] Comment on above: Performed By: #### H EMO #### [facility] (DEFAULT) [address] [place] [address]302 RBC Distribution 13.3 % Normal 10.9-14.3 [facility] Comment on above: Performed By: #### H EMOGC #### [facility] (DEFAULT) [address] [place] [address]2426 WBC (Bld) [#/Vol] 8.21 10*3/uL Normal 3.73-10.[address] [facility] Comment on above: Performed By: #### H EMOGC #### [facility] (DEFAULT) [address] [place] [address]8966 CHEM 7 (LYTES,BUN,CREA,GLUC) on 12-11-2024 Anion gap [Moles/Vol] 15 mmol/L 7 - 17 mmol/L [facility] Chloride [Moles/Vol] 101 mmol/L 98 - 10 8 mmol/L [facility] CO2 [Moles/Vol] 27 mmol/L 21 - 31 mmol/L [facility] Creatinine [Mass/Vol] 0.66 mg/dL Low 0.70 - 1.30 mg/dL [facility] eGFR, CKD-EPI, Male - PINF [facility] Comment on above: Reported eGFR is bas ed on the CKD-EPI 2020 equation using creatinine, age, and sex. Glucose [Mass/Vol] 134 mg/dL 70 - 179 mg/dL [facility] Interpretation and review of laboratory results Abnormal [facility] Osmolality Calc [Osmolality] 293 [facility] Potassium [Moles/Vol] 3.9 mmol/L 3.5 - 5.0 mmol/L [facility] Sodium [Moles/Vol] 139 mmol/L 135 - 145 mmol/L [facility] Urea nitrogen [Mass/Vol] 13 mg/dL 7 - 25 mg/dL [facility] Urea nitrogen/Creatinine [Mass ratio] 20 mg/mg [facility] Anion gap [Moles/Vol] 15 mmol/L Normal 7-[address] [facility] Comment on above: Performed By: #### C A, MGO, CHM7, HFP #### [facility] (DEFAULT) [address] [place] [address]30 Chloride [Moles/Vol] 101 mmol/L Normal 98-[address] [facility] Comment on above: Performed By: #### C A, MGO, CHM7, HFP #### [facility] (DEFAULT) [address] [place] [address] CO2 [Moles/Vol] 27 mmol/L Normal 21-31 [facility] Comment on above: Performed By: #### C A, MGO, CHM7, HFP #### [facility] (DEFAULT) [address] [place] [address] 27325 Creatinine [Mass/Vol] 0.66 mg/dL Low 0.70-1.[address] [facility] Comment on above: Performed By: #### C A, MGO, CHM7, HFP #### [facility] (DEFAULT) [address] [place] [address] eGFR, CKD-EPI, Male > Normal >=[address] [facility] Comment on above: Result Comment: Repo rted eGFR is based on the CKD-EPI 2020 equation using creatinine, age, and sex. Performed By: #### JAQUELINE Ca CHM7, HFP #### [facility] (DEFAULT) [address] [place] [address]503 Glucose [Mass/Vol] 134 mg/dL Normal Nonfastin -179 mg/dL; Fastin-[address] [facility] Comment on above: Performed By: #### Adonsi Ruano MGTamara CHM7, HFP #### [facility] (DEFAULT) [address] [place] [address] 12071 Osmolality [Osmolality] 293 mosm/kg Normal 278-[address] [facility] Comment on above: Performed By: #### Adonis Ruano MGO CHM7, HFP #### [facility] (DEFAULT) [address] [place] [address] 08417 Potassium [Moles/Vol] 3.9 mmol/L Normal 3.5-5.[address] [facility] Comment on above: Performed By: #### Adonis Ruano MGTamara CHM7, HFP #### [facility] (DEFAULT) [address] [place] [address] 73484 Sodium [Moles/Vol] 139 mmol/L Normal 135-145 [facility] Comment on above: Performed By: #### Adonis Ruano MGO CHM7, HFP #### [facility] (DEFAULT) [address] [place] [address] 84469 Urea nitrogen [Mass/Vol] 13 mg/dL Normal 7-[address] [facility] Comment on above: Performed By: #### Adonis Ruano MGO CHM7, HFP #### [facility] (DEFAULT) [address] [place] [address] 56652 Urea nitrogen/Creatinine [Mass ratio] 20 mg/mg Normal [facility] Comment on above: Performed By: #### Adonis Ruano MGO CHM7, HFP #### [facility] (DEFAULT) [address] [place] [address] 99043 HEPATIC FUNCTION PANELon Albumin [Mass/Vol] 4 g/dL 3.5 - 5.0 g/dL [facility] ALP [Catalytic activity/Vol] 103 U/L 32 - 126 U/L [facility] ALT [Catalytic activity/Vol] 20 U/L 10 - 52 U/L [facility] AST [Catalytic activity/Vol] 15 U/L 10 - 39 U/L [facility] Bilirubin [Mass/Vol] 0.2 mg/dL NINF - 1.5 mg/dL [facility] Bilirubin.direct [Mass/Vol] 0.1 mg/dL NINF - 0.3 mg/dL [facility] Protein [Mass/Vol] 7.5 g/dL 6.4 - 8.3 g/dL [facility] Albumin [Mass/Vol] 4.0 g/dL Normal 3.5-5.0 [facility] Comment on above: Performed By: #### C A, MGO, CHM7, HFP #### [facility] (DEFAULT) [address] [place] [address] 07562 ALP [Catalytic activity/Vol] 103 U/L Normal 32-[address] [facility] Comment on above: Performed By: #### C A, MGO, CHM7, HFP #### [facility] (DEFAULT) [address] [place] [address] 30100 ALT [Catalytic activity/Vol] 20 U/L Normal 10-[address] [facility] Comment on above: Performed By: #### C A, MGO, CHM7, HFP #### [facility] (DEFAULT) [address] [place] [address] 30498 AST [Catalytic activity/Vol] 15 U/L Normal 10-[address] [facility] Comment on above: Performed By: #### C A, MGO, CHM7, HFP #### [facility] (DEFAULT) [address] [place] [address] 17600 Bilirubin [Mass/Vol] 0.2 mg/dL Normal <1.[address] [facility] Comment on above: Performed By: #### C JAQUELINE Ruano CHM7, HFP #### [facility] (DEFAULT) [address] [place] [address] 17684 Bilirubin.indirect [Mass/Vol] 0.1 mg/dL Normal <0.[address] [facility] Comment on above: Performed By: #### Adonis Ruano MGTamara, CHM7, HFP #### [facility] (DEFAULT) [address] [place] [address] 93081 Protein [Mass/Vol] 7.5 g/dL Normal 6.4-8.3 [facility] Comment on above: Performed By: #### Adonis Ruano MGTamara CHM7, HFP #### [facility] (DEFAULT) [address] [place] [address] 20970 LACOSAMIDE, SERUMon 12-12-19 25 Lacosamide,serum 6.6 mcg/mL Normal 1.0-10.0 [facility] Comment on above: Order Comment: Ryan lr draw level at specified interval PRIOR to dose. Result Comment: ADDITIONAL INFORMATION This test was developed and its performance characteristics determined by [facility] in a manner consistent with CLIA requirements. This test has not been cleared or approved by the U.S. Food and Drug Administration. Test Performed by: [facility] [address] [place] [address] Boiler Blower: Maria Fernanda Jansen Ph.D.; CLIA# [id number] Performed By: #### Y LEVNH #### [facility] (DEFAULT) [address] [address] LEVETIRACETAM LEVELon 2024 LEVETIRACETAM LEVEL 45.6 mcg/mL High 10.0-40.[address] [facility] Comment on above: Order Comment: Pleas e draw level at specified interval PRIOR to dose. Result Comment: ADDITIONAL INFORMATION This test was developed and its performance characteristics determined by [facility] in a manner consistent with CLIA requirements. This test has not been cleared or approved by the U.S. Food and Drug Administration. Test Performed by: [facility] [address] [place] [address] Boiler Blower: Maria Fernanda Jansen Ph.D.; CLIA# [id number] Performed By: #### Y LEVNH #### [facility] (DEFAULT) [address] [place] [address] MAGNESIUMon 12-11-2024 Magnesium [Mass/Vol] 1.9 mg/dL 1.6 - 2 .6 mg/dL [facility] Magnesium [Mass/Vol] 1.9 mg/dL Normal 1.6-2.[address] [facility] Comment on above: Performed By: #### C A, MGO, CHM7, HFP #### [facility] (DEFAULT) [address] [place] [address] No Panel Informationon 12-11 Interpretation and review of laboratory results Normal [facility] PHENOBARBITAL LEVEL, TROUGH (PRE DRUG LEVEL)on 12-11-2024 Interpretation and review of laboratory results Normal [facility] PHENobarbital [Mass/Vol] 30.6 ug/mL [facility] PHENobarbital [Mass/Vol] 30.6 ug/mL Normal Therapeutic Range: 15.0-40.0 mcg/mL [facility] Comment on above: Order Comment: Pleas e draw level at specified interval PRIOR to dose. Performed By: #### P HNO #### [facility] (DEFAULT) [address] [place] [address] PHENYTOIN TOTAL LEVELon 11-14 Interpretation and review of laboratory results Abnormal [facility] Phenytoin [Mass/Vol] 8.1 ug/mL Low [facility] Phenytoin [Mass/Vol] 8.1 ug/mL Low Therape utic Range: 10.0-20.0 mcg/mL [facility] Comment on above: Order Comment: Pleas e draw level as scheduled. Performed By: #### P TN #### [facility] (DEFAULT) [address] [place] [address] CBC WITH AUTO DIFFERENTIALon 10-28-2024 AUTO NRBC 0.0 % [facility] Comment on above: Performed By: #### L [id number] #### LAB [address] [place] [address] Enzo Mackey M.D. [id number] AUTO NRBC ABS COUNT 0.00 K/mcL Normal 0.00-0.00 [facility] Comment on above: Performed By: #### L [id number] #### LAB [address] [address] Enzo Mackey M.D. [id number] BASOPHILS ABSOLUTE COUNT 0.04 K/mcL Normal 0.00-0.30 [facility] Comment on above: Performed By: #### L [id number] #### LAB [address] [place] [address] Enzo Mackey M.D. [id number] Basophils/100 WBC (Bld) 0.5 % [facility] Comment on above: Performed By: #### L [id number] #### LAB [address] [address] Enzo Mackey M.D. [id number] Eosinophils (Bld) [#/Vol] 0.27 10*3/uL Normal 0.00-0.50 [facility] Comment on above: Performed By: #### L [id number] #### LAB [address] [place] [address] Enzo Mackey M.D. [id number] Eosinophils/100 WBC (Bld) 3.3 % [facility] Comment on above: Performed By: #### L [id number] #### LAB [address] [address] Enzo Mackey M.D. [id number] Erythrocyte distribution width (RBC) [Ratio] 13.0 % Normal 11.6-14.8 [facility] Comment on above: Performed By: #### L [id number] #### LAB [address] [address] Enzo Mackey M.D. [id number] Hematocrit (Bld) [Volume fraction] 41.5 % Normal 41.0-53.0 [facility] Comment on above: Performed By: #### L [id number] #### LAB [address] [address] Enzo Mackey M.D. [id number] Hemoglobin (Bld) [Mass/Vol] 13.5 g/dL Normal 13.5-17.5 [facility] Comment on above: Performed By: #### L [id number] #### LAB [address] [address] Enzo Mackey M.D. [id number] IG ABSOLUTE 0.12 K/mcL Normal 0.00-0.30 [facility] Comment on above: Performed By: #### L [id number] #### LAB [address] [place] [address] Enzo Mackey M.D. [id number] IG PERCENT 1.50 % Normal [facility] Comment on above: Result Comment: The IG parameter is the percentage of metamyelocytes, myelocytes and promyelocytes. An immature granulocyte count (IG) of 1% or more suggests the possibility of infection, an IG count of 3% is very likely related to an infection. Performed By: #### L [id number] #### LAB [address] [place] [address] Enzo Mackey M.D. [id number] Lymphocytes (Bld) [#/Vol] 1.99 10*3/uL Normal 0.90-4.00 [facility] Comment on above: Performed By: #### L [id number] #### LAB [address] [place] [address] Enzo Mackey M.D. [id number] Lymphocytes/100 WBC (Bld) 24.6 % Normal [facility] Comment on above: Performed By: #### L [id number] #### LAB [address] [address] Enzo Mackey M.D. [id number] MCH (RBC) [Entitic mass] 31.2 pg Normal 26.0-34.0 [facility] Comment on above: Performed By: #### L [id number] #### [facility] [address] [address] Enzo Mackey M.D. [id number] MCV (RBC) [Entitic vol] 95.8 fL Normal 80.0-100.0 [facility] Comment on above: Performed By: #### L [id number] #### LAB [address] [address] Enzo Mackey M.D. [id number] MEAN CORPUSCULAR HEMOGLOBIN CONC 32.5 g/dL Normal 31.0-37.0 [facility] Comment on above: Performed By: #### L [id number] #### LAB [address] [address] Enzo Mackey M.D. [id number] Monocytes (Bld) [#/Vol] 1.04 10*3/uL High 0.30-0.90 [facility] Comment on above: Performed By: #### L [id number] #### LAB [address] [address] Enzo Mackey M.D. [id number] Monocytes/100 WBC (Bld) 12.8 % Normal [facility] Comment on above: Performed By: #### L [id number] #### LAB [address] [address] Enzo Mackey M.D. [id number] NEUTROPHILS ABSOLUTE COUNT 4.64 K/mcL Normal 1.70-7.00 [facility] Comment on above: Performed By: #### L [id number] #### LAB [address] [address] Enzo Mackey M.D. [id number] Neutrophils/100 WBC (Bld) 57.3 % Normal [facility] Comment on above: Performed By: #### L [id number] #### [facility] [address] [address] Enzo Mackey M.D. [id number] Platelet mean volume (Bld) [Entitic vol] 10.0 fL Normal 9.4-12.4 [facility] Comment on above: Performed By: #### L [id number] #### [facility] [address] [address] Enzo Mackey M.D. [id number] Platelets (Bld) [#/Vol] 246 10*3/uL Normal 150-400 [facility] Comment on above: Performed By: #### L [id number] #### [facility] [address] [address] Enzo Mackey M.D. [id number] RBC (Bld) [#/Vol] 4.33 10*6/uL Low 4.50-5.90 [facility] Comment on above: Performed By: #### L [id number] #### [facility] [address] [address] Enzo Mackey M.D. [id number] WBC (Bld) [#/Vol] 8.10 10*3/uL Normal 4.50-11.00 [facility] Comment on above: Performed By: #### L [id number] #### [facility] [address] [address] Enzo Mackey M.D. [id number] COMPREHENSIVE METABOLIC PANE Adan 10-28-2024 Albumin [Mass/Vol] 3.5 g/dL Normal 3.2-5.2 [facility] Comment on above: Order Comment: [facility] has implemented the eGFR calculation approach that does not have a coefficient for race that conforms to the NKF-ASN Task Force Recommendations. Performed By: #### L [id number] #### [facility] [address] [address] Enzo Mackey M.D. [id number] ALP [Catalytic activity/Vol] 126 U/L Normal 40-150 [facility] Comment on above: Order Comment: [facility] has implemented the eGFR calculation approach that does not have a coefficient for race that conforms to the NKF-ASN Task Force Recommendations. Performed By: #### L [id number] #### LAB [address] [address] Enoz Mackey M.D. [id number] ALT [Catalytic activity/Vol] 26 U/L Normal 0-50 U/L [facility] Comment on above: Order Comment: [facility] has implemented the eGFR calculation approach that does not have a coefficient for race that conforms to the NKF-ASN Task Force Recommendations. Performed By: #### L [id number] #### [facility] [address] [address] Enzo Mackey M.D. [id number] Anion gap [Moles/Vol] 14 mmol/L Normal 10-20 [facility] Comment on above: Order Comment: [facility] has implemented the eGFR calculation approach that does not have a coefficient for race that conforms to the NKF-ASN Task Force Recommendations. Performed By: #### L [id number] #### [facility] [address] [address] Enzo Mackey M.D. [id number] AST [Catalytic activity/Vol] 27 U/L Normal 0-50 U/L [facility] Comment on above: Order Comment: [facility] has implemented the eGFR calculation approach that does not have a coefficient for race that conforms to the NKF-ASN Task Force Recommendations. Performed By: #### L [id number] #### [facility] [address] [address] Enzo Mackey M.D. [id number] BILIRUBIN TOTAL < Normal 0.0-1.3 [facility] Comment on above: Order Comment: [facility] has implemented the eGFR calculation approach that does not have a coefficient for race that conforms to the NKF-ASN Task Force Recommendations. Performed By: #### L [id number] #### [facility] [address] [address] Enzo Mackey M.D. [id number] Calcium [Mass/Vol] 8.9 mg/dL Normal 8.4-10.2 [facility] Comment on above: Order Comment: [facility] has implemented the eGFR calculation approach that does not have a coefficient for race that conforms to the NKF-ASN Task Force Recommendations. Performed By: #### L [id number] #### MH LAB [address] [address] Enzo Mackey M.D. [id number] Chloride [Moles/Vol] 103 mmol/L Normal 98-108 [facility] Comment on above: Order Comment: [facility] has implemented the eGFR calculation approach that does not have a coefficient for race that conforms to the NKF-ASN Task Force Recommendations. Performed By: #### L [id number] #### MH LAB [address] [address] Enzo Mackey M.D. [id number] Creatinine [Mass/Vol] 0.69 mg/dL Low 0.80-1.30 [facility] Comment on above: Order Comment: [facility] has implemented the eGFR calculation approach that does not have a coefficient for race that conforms to the NKF-ASN Task Force Recommendations. Performed By: #### L [id number] #### MH LAB [address] [address] Enzo Mackey M.D. [id number] EGFR 103 mL/min/1.73 m2 Normal >=60 [facility] Comment on above: Order Comment: [facility] has implemented the eGFR calculation approach that does not have a coefficient for race that conforms to the NKF-ASN Task Force Recommendations. Result Comment: Rohan mated GFR was calculated using the 2020 CKD-EPI creatinine equation. Performed By: #### L [id number] #### MH LAB [address] [address] Enzo Mackey M.D. [id number] Glucose [Mass/Vol] 121 mg/dL High 65-99 [facility] Comment on above: Order Comment: [facility] has implemented the eGFR calculation approach that does not have a coefficient for race that conforms to the NKF-ASN Task Force Recommendations. Performed By: #### L [id number] #### LAB [address] [address] Enzo Mackey M.D. [id number] HCO3 (Bld) [Moles/Vol] 27 mmol/L Normal 21-32 [facility] Comment on above: Order Comment: [facility] has implemented the eGFR calculation approach that does not have a coefficient for race that conforms to the NKF-ASN Task Force Recommendations. Performed By: #### L [id number] #### LAB [address] [address] Enzo Mackey M.D. [id number] Potassium [Moles/Vol] 4.0 mmol/L Normal 3.5-5.1 [facility] Comment on above: Order Comment: [facility] has implemented the eGFR calculation approach that does not have a coefficient for race that conforms to the NKF-ASN Task Force Recommendations. Performed By: #### L [id number] #### LAB [address] [address] Enzo Mackey M.D. [id number] Protein [Mass/Vol] 7.3 g/dL Normal 6.0-8.0 [facility] Comment on above: Order Comment: [facility] has implemented the eGFR calculation approach that does not have a coefficient for race that conforms to the NKF-ASN Task Force Recommendations. Performed By: #### L [id number] #### MH LAB [address] [address] Enzo Mackey M.D. [id number] Sodium [Moles/Vol] 140 mmol/L Normal 135-145 [facility] Comment on above: Order Comment: [facility] has implemented the eGFR calculation approach that does not have a coefficient for race that conforms to the NKF-ASN Task Force Recommendations. Performed By: #### L [id number] #### MH LAB [address] [place], [place] [address] Enzo Mackey M.D. [id number] Urea nitrogen [Mass/Vol] 13 mg/dL Normal 8-25 [facility] Comment on above: Order Comment: [facility] has implemented the eGFR calculation approach that does not have a coefficient for race that conforms to the NKF-ASN Task Force Recommendations. Performed By: #### L [id number] #### LAB [address] [place], [place] [address] Enzo Mackey M.D. [id number] Urea nitrogen/Creatinine [Mass ratio] 18.8 mg/mg Normal 10.0-20.0 [facility] Comment on above: Order Comment: [facility] has implemented the eGFR calculation approach that does not have a coefficient for race that conforms to the NKF-ASN Task Force Recommendations. Performed By: #### L [id number] #### LAB [address] [place], [place] [address] Enzo Mackey M.D. [id number] CONSULTon 10-28-2024 CONSULT Neurology Inpatient Consult [facility] 10/29/2024 Patient: Pancho Mcpherson Date of : 1960 (64 y.o.) Referring Provider: Refer to consult order in electronic medical record PCP: Mahamed Neri DO ASSESSMENT: 64 y.o. male presented to [facility] on 10/26/2024 with with history of medically refractory epilepsy, hypertension, hyperlipidemia, developmental delay, hypothyroidism, prostate enlargement, sleep apnea presented to [facility] on 10/26/2024 from assisted living facility with hypoxia. Of note, the patient was discharged from the hospital on the same day (10/26/2024) after being managed for acute cholecystitis, completed antibiotics as inpatient, patient was sent to assisted living facility. Neurology was consulted after the patient had an episode of seizures lasting less than a minute, that spontaneously self resolved on the evening of 10/28/2024. Seizure appear to be provoked by desaturation to 82% on SpO2. The patient had not been compliant with his CPAP, and had been on 2 L nasal cannula. I suspect that his seizures were triggered by hypoxia, which has also been noted in the past. Currently vital signs are stable, with no acute distress observed. Neurological examination revealed increased muscle tone and dyspraxic movements in the upper extremities, with reduced strength in the lower extremities. Sensation is intact, and coordination appears unaffected. Impression Medically refractory epilepsy History of developmental delay History of sleep apnea with hypoxia induced seizures History of Cervical Cord Stenosis and Myelomalacia, Status Post Corrective Surgery: PLAN: Medically refractory epilepsy -Will send for labs including Keppra level, phenytoin level, Vimpat level -Would continue his home medications, however will increase lacosamide to 250 mg twice daily to provide better coverage should he have further hypoxia -He follows up with [facility] outpatient. Appears to have had a VNS placed as well, with settings recently changed. Will defer to his outpatient neurologist for any further changes should he have recurrent seizures. Substitution of phenobarbital with new or antiseizure agents such as Xcopri can also be considered. Pinky Poole MD Staff Neurologist DIAGNOSTIC TESTING SUMMARY: Pending Lab and Radiology Results Order Current Status Lacosamide In process Resulted Testing: (MRI/CT/XR, EEG, EMG, CSF, Cardiac, Labs) SUBJECTIVE: Chief Complaint/Reason for Consult: Seizures Informant(s): Patient, Care Team/Chart History of Present Illness: Pancho Mcpherson is a 64 y.o. male with history of hypertension, hyperlipidemia, seizure disorder, developmental delay, hypothyroidism, prostate enlargement, sleep apnea presented to [facility] on 10/26/2024 from assisted living facility with hypoxia. Of note, the patient was discharged from the hospital on the same day (10/26/2024) after being managed for acute cholecystitis, completed antibiotics as inpatient, patient was sent to assisted living facility. Neurology was consulted after the patient had an episode of seizures lasting less than a minute, that spontaneously self resolved on the evening of 10/28/2024. Seizure appear to be provoked by desaturation to 82% on SpO2. The patient had not been compliant with his CPAP, and had been on 2 L nasal cannula. Pertinent Seizure History: The patient's seizures began following an episode of high fever at approximately six months of age. Since then, seizure control has been challenging despite comprehensive anti-seizure drug therapy. Caregivers describe the seizures as characterized by loud vocalization, followed by limb stiffening and unresponsiveness, lasting about a minute, with a subsequent postictal period of confusion and sleepiness. The patient denies any prodrome or aura and reports no specific seizure triggers. Seizure frequency is approximately 2-3 episodes per month, with no documented history of status epilepticus. Seizure Risk Factors and History: Developmental delay noted after initial normal development, with subsequent regression. No history of febrile seizures, brain infections, stroke, or significant head injury. No family history of epilepsy. Current Anti-Seizure Drug (ASD) Therapy: Phenobarbital, Dilantin, Levetiracetam, Lacosamide, and Clonazepam are currently prescribed. The patient has a history of polypharmacy with ASDs. Pertinent Labs and Neurodiagnostic Findings: MRI of the brain in 2021 showed no intracranial pathologies aside from white matter changes. No EEG records are available in our system. History: Past Medical History: Diagnosis Date Balance problem Depression Disease of thyroid gland Disorientation Fatigue Hearing loss Hyperlipidemia Lack of coordination Memory loss Seizures (HCC) Speech abnormality Past Surgical History: Procedure Lateralit (more content not included)... Normal [facility] LACOSAMIDEon 10-28-2024 [facility] LACOSAMIDE - [address] 6.1 mcg/mL Normal 1.0 - 10.0 [facility] Comment on above: Result Comment: ADDITIONAL INFORMATION This test was developed and its performance characteristics determined by [facility] in a manner consistent with CLIA requirements. This test has not been cleared or approved by the U.S. Food and Drug Administration. Test Performed by: [facility] - [address] [address] Boiler Blower: Maria Fernanda Jansen Ph.D.; CLIA# [id number] Performed By: #### L [id number] #### MH LAB [address] [place] [address] Enzo Mackey M.D. [id number] LEVETIRACETAM LEVELon 2024 levETIRAcetam [Mass/Vol] 48.4 ug/mL High 6.0-46.0 [facility] Comment on above: Performed By: #### 4 [id number] #### [facility] [address] Sim Mccain M.D. [id number] PHENYTOIN LEVEL, FREEon 10-12 PHENYTOIN FREE 0.64 mcg/mL Low 1.00-2.00 [facility] Comment on above: Performed By: #### L [id number] #### MH LAB [address] [address] Enzo Mackey M.D. [id number] PHENYTOIN LEVEL, TOTALon Phenytoin [Mass/Vol] 7.4 ug/mL Low 10.0-20.0 [facility] Comment on above: Performed By: #### L [id number] #### HE LAB [address] [address] Enzo Mackey M.D. [id number] [facility] Glucose [Mass/Vol] 140 mg/dL High 65-99 [facility] Comment on above: Performed By: #### L [id number] #### MH LAB [address] [address] Enzo Mackey M.D. [id number] CLOSTRIDIOIDES DIFFICILE [facility] [place] [facility]24 CLOSTRIDIOIDES DIFFICILE TESTING SPECIMEN ACCEPTABILITY Acceptable C. DIFFICILE INTERPRETATION Negative for toxigenic C. difficile Normal [facility] Comment on above: Performed By: #### L [id number] #### HE LAB [address] [address] Enzo Mackey M.D. [id number] BASIC METABOLIC PANELon 10-12 Anion gap [Moles/Vol] 13 mmol/L Normal 10-20 [facility] Comment on above: Order Comment: [facility] has implemented the eGFR calculation approach that does not have a coefficient for race that conforms to the NKF-ASN Task Force Recommendations. Performed By: #### 4 [id number] #### MH LAB [address] [address] Enzo Mackey M.D. [id number] Calcium [Mass/Vol] 8.5 mg/dL Normal 8.4-10.2 [facility] Comment on above: Order Comment: [facility] has implemented the eGFR calculation approach that does not have a coefficient for race that conforms to the NKF-ASN Task Force Recommendations. Performed By: #### 4 [id number] #### LAB [address] [place], [place] [address] Enzo Mackey M.D. [id number] Chloride [Moles/Vol] 104 mmol/L Normal 98-108 [facility] Comment on above: Order Comment: [facility] has implemented the eGFR calculation approach that does not have a coefficient for race that conforms to the NKF-ASN Task Force Recommendations. Performed By: #### 4 [id number] #### LAB [address] [place], [place] [address] Enzo Mackey M.D. [id number] Creatinine [Mass/Vol] 0.57 mg/dL Low 0.80-1.30 [facility] Comment on above: Order Comment: [facility] has implemented the eGFR calculation approach that does not have a coefficient for race that conforms to the NKF-ASN Task Force Recommendations. Performed By: #### 4 [id number] #### LAB [address] [id number] Enzo Mackey M.D. [id number] EGFR 109 mL/min/1.73 m2 Normal >=60 [facility] Comment on above: Order Comment: [facility] has implemented the eGFR calculation approach that does not have a coefficient for race that conforms to the NKF-ASN Task Force Recommendations. Result Comment: Rohan mated GFR was calculated using the 2020 CKD-EPI creatinine equation. Performed By: #### 4 [id number] #### LAB [address] [place], [place] [address] Enzo Mackey M.D. [id number] Glucose [Mass/Vol] 101 mg/dL High 65-99 [facility] Comment on above: Order Comment: [facility] has implemented the eGFR calculation approach that does not have a coefficient for race that conforms to the NKF-ASN Task Force Recommendations. Performed By: #### 4 [id number] #### LAB [address] [id number] Enzo Mackey M.D. [id number] HCO3 (Bld) [Moles/Vol] 29 mmol/L Normal 21-32 [facility] Comment on above: Order Comment: [facility] has implemented the eGFR calculation approach that does not have a coefficient for race that conforms to the NKF-ASN Task Force Recommendations. Performed By: #### 4 [id number] #### LAB [address] [place], [place] [address] Enzo Mackey M.D. [id number] Potassium [Moles/Vol] 3.8 mmol/L Normal 3.5-5.1 [facility] Comment on above: Order Comment: [facility] has implemented the eGFR calculation approach that does not have a coefficient for race that conforms to the NKF-ASN Task Force Recommendations. Performed By: #### 4 [id number] #### LAB [address] [address] Enzo Mackey M.D. [id number] Sodium [Moles/Vol] 142 mmol/L Normal 135-145 [facility] Comment on above: Order Comment: [facility] has implemented the eGFR calculation approach that does not have a coefficient for race that conforms to the NKF-ASN Task Force Recommendations. Performed By: #### 4 5456 #### LAB [address] [address] Enzo Mackey M.D. [id number] Urea nitrogen [Mass/Vol] 4 mg/dL Low 8-25 [facility] Comment on above: Order Comment: [facility] has implemented the eGFR calculation approach that does not have a coefficient for race that conforms to the NKF-ASN Task Force Recommendations. Performed By: #### 4 [id number] #### LAB [address] [place], [place] [address] Enzo Mackey M.D. [id number] Urea nitrogen/Creatinine [Mass ratio] 7.0 mg/mg Low 10.0-20.0 [facility] Comment on above: Order Comment: [facility] has implemented the eGFR calculation approach that does not have a coefficient for race that conforms to the NKF-ASN Task Force Recommendations. Performed By: #### 4 [id number] #### LAB [address] [address] Enzo Mackey M.D. [id number] CBCon 10-26-2024 AUTO NRBC 0.0 % Normal [facility] Comment on above: Performed By: #### 4 [id number] #### MH LAB [address] [address] Enzo Mackey M.D. [id number] AUTO NRBC ABS COUNT 0.00 K/mcL Normal 0.00-0.00 [facility] Comment on above: Performed By: #### 4 [id number] #### LAB [address] [address] Enzo Mackey M.D. [id number] Erythrocyte distribution width (RBC) [Ratio] 13.0 % Normal 11.6-14.8 [facility] Comment on above: Performed By: #### 4 [id number] #### LAB [address] [address] Enzo Mackey M.D. [id number] Hematocrit (Bld) [Volume fraction] 38.9 % Low 41.0-53.0 [facility] Comment on above: Performed By: #### 4 [id number] #### LAB [address] [address] Enzo Mackey M.D. [id number] Hemoglobin (Bld) [Mass/Vol] 12.4 g/dL Low 13.5-17.5 [facility] Comment on above: Performed By: #### 4 5498 #### LAB [address] [address] Enzo Mackey M.D. [id number] MCH (RBC) [Entitic mass] 31.4 pg Normal 26.0-34.0 [facility] Comment on above: Performed By: #### 4 5170 #### LAB [address] [address] Enzo Mackey M.D. [id number] MCV (RBC) [Entitic vol] 98.5 fL Normal 80.0-100.0 [facility] Comment on above: Performed By: #### 4 [id number] #### LAB [address] [address] Enzo Mackey M.D. [id number] MEAN CORPUSCULAR HEMOGLOBIN CONC 31.9 g/dL Normal 31.0-37.0 [facility] Comment on above: Performed By: #### 4 [id number] #### LAB [address] [address] Enzo Mackey M.D. [id number] Platelet mean volume (Bld) [Entitic vol] 10.3 fL Normal 9.4-12.4 [facility] Comment on above: Performed By: #### 4 [id number] #### LAB [address] [address] Enzo Mackey M.D. [id number] Platelets (Bld) [#/Vol] 166 10*3/uL Normal 150-400 [facility] Comment on above: Performed By: #### 4 [id number] #### LAB [address] [address] Enzo Mackey M.D. [id number] RBC (Bld) [#/Vol] 3.95 10*6/uL Low 4.50-5.90 [facility] Comment on above: Performed By: #### 4 [id number] #### LAB [address] [address] Enzo Mackey M.D. [id number] WBC (Bld) [#/Vol] 7.65 10*3/uL Normal 4.50-11.00 [facility] Comment on above: Performed By: #### 4 5456 #### LAB [address] [address] Enzo Mackey M.D. [id number] COVID-19/INFLUENZA A,B MOLEC ULARon 10-26-2024 SARS-CoV-2 (COVID-19) Ab IA Ql SARS-COV-2 (SYLVIA) Not Detected INFLUENZA A (SYLVIA) Not Detected INFLUENZA B (SYLVIA) Not Detected Normal Not Detected [facility] Comment on above: Performed By: #### L [id number] #### MH LAB [address] [place] [address] Enzo Mackey M.D. [id number] ED Prov Noteon 10-26-2024 ED Prov Note [facility] EMERGENCY DEPARTMENT - Emergency Medicine Attending Note: NAME: Pancho Mcpherson 64 y.o. CSN: [id number] PCP: Mahamed Neri DO History: Chief Complaint: Cough HPI: The history was obtained from the patient and EMS. Pancho is a 64 y.o. male who presents with a chief complaint of Cough. Cough Associated symptoms: shortness of breath Associated symptoms: no chest pain, no fever, no headaches and no wheezing Patient was discharged from upstairs earlier today. When EMS took him to the assisted living facility that was set up, and patient was hypoxic without it, so they brought him back here to the emergency department for further evaluation., there was no home oxygen patient reports no change in condition and no new symptoms since his discharge just about an hour ago. ROS: Review of Systems Constitutional: Negative for activity change, appetite change and fever. Eyes: Negative for photophobia, pain, redness and visual disturbance. Respiratory: Positive for cough and shortness of breath. Negative for apnea, chest tightness and wheezing. Cardiovascular: Negative for chest pain and palpitations. Gastrointestinal: Negative for abdominal pain, constipation, diarrhea, nausea and vomiting. Genitourinary: Negative for difficulty urinating and hematuria. Skin: Negative for color change. Neurological: Negative for dizziness, syncope, light-headedness, numbness and headaches. Positives and pertinent negatives as per HPI. All other systems were reviewed and are negative. Physical Exam: Patient Vitals for the past 24 hrs: BP Temp Pulse Resp SpO2 10/26/24 1740 125/76 98 degrees F (36.7 degrees C) 63 18 100 % Physical Exam Constitutional: General: He is not in acute distress. Appearance: He is ill-appearing (Chronically ill-appearing, nasal cannula oxygen, but in no acute distress.). He is not diaphoretic. HENT: Head: Normocephalic and atraumatic. Right Ear: External ear normal. Left Ear: External ear normal. Eyes: General: No scleral icterus. Neck: Vascular: No JVD. Trachea: No tracheal deviation. Cardiovascular: Rate and Rhythm: Normal rate and regular rhythm. Pulses: Normal pulses. Heart sounds: Normal heart sounds. No murmur heard. No friction rub. No gallop. Pulmonary: Effort: Pulmonary effort is normal. No respiratory distress. Breath sounds: Normal breath sounds. No wheezing or rales. Chest: Chest wall: No tenderness. Abdominal: General: There is no distension. Palpations: Abdomen is soft. There is no mass. Tenderness: There is no abdominal tenderness. There is no rebound. Musculoskeletal: General: No deformity. Skin: General: Skin is warm and dry. Neurological: General: No focal deficit present. Mental Status: He is alert and oriented to person, place, and time. Psychiatric: Mood and Affect: Mood normal. Behavior: Behavior normal. Laboratory & Radiological Imaging (if done): Labs Reviewed - No data to display No orders to display Procedures: Procedures ED Course / Medical Decision Makin-year-old male, presenting today for evaluation of chronic respiratory failure as described above. Unfortunately, home oxygen was not set up before his discharge home, and as such, the squad was unable to leave him at the assisted living facility, brought him back here. I did try to call our casey saw operator here in the hospital, however, after speaking with the nursing prep room supervisor, I am informed that they have left for the day. He recommends calling [facility] central case management. I spoke with Vianca, casey saw operator down there, who states that they are unable to help with any oxygen needs in [place], and that the only care for the other [facility]. She recommends reaching out to [facility]. I did speak with her and her therapist, who states that at 6:00 on a weekend, there is nothing we can do about it, and that the patient will need to be admitted for the day team to address it in the morning. We discussed the results of the work up in the emergency department. Patient agreeable to the plan of care, including for admission. I spoke with the [facility] Doc Marketing Database Analyst/Unassigned Medicine Service, Dr. Romano, and the patient will be accepted onto their inpatient service. Coding Elements: Medical Decision Making Clinical Impression: 1. Chronic respiratory failure with hypoxia (HCC) Disposition: hospitalize to Med/Surg with telemetry Jah Richard M.D. Attending Physician [facility] EMERGENCY DEPARTMENT 10/26/2024 Portions of this note may have been dictated utilizing voice recognition software. Unfortunately this leads to occasional typographical errors. If questions arise please do not hesitate to contact my office for clarification. Data from EMR: PMHx: Past Medical History: Diagnosis Date Balance problem Depression Disease of thyroid gland (more content not included)... Normal [facility] XR CHEST PA/APon 10-26-2024 XR CHEST PA/AP EXAMINATION: XR CHEST PA/AP HISTORY: ORDERING SYSTEM PROVIDED HISTORY: hypoxia Shortness of breath, TECHNOLOGIST PROVIDED HISTORY: Illness/Other Reason for exam: hypoxia Shortness of breath Cancer History: n Surgery, RadiationHistory: n Encounter Type: Initial Additional signs and symptoms: n ORDERING SYSTEM PROVIDED DIAGNOSIS CODES: J96.11 Chronic respiratory failure with hypoxia (HCC) COMPARISON: 10/22/2024 FINDINGS: One-view chest x-ray. No pneumothorax, pleural effusion or focal airspace consolidation. Heart is normal in size. Stable electronic generator with the wire extending toward the lower neck. Prior anterior spinal fusion in the lower cervical spine. Deformity of right-sided ribs are again seen consistent with old trauma. IMPRESSION: No acute cardiopulmonary process. Stable chest. Workstation ID: [id number] Dictated by: SENA ARANDA on [facility] Oct 26, 2024 10:31:25 PM EDT Transcribed by: SENA ARANDA on [facility] Oct 26, 2024 10:31:25 PM EDT Finalized by: SENA ARANDA on [facility] Oct 26, 2024 10:31:25 PM EDT [facility] Comment on above: Order Comment: Injur y/Trauma or Illness?:Illness/OtherHow long have you had these symptoms (acute/chronic)?:AcuteReason for exam?:hypoxia Shorntess of breathHistory of cancer?:nSurgeries, chemotherapy, or radiation?:nType of Exam?:InitialAdditional signs and symptoms?:n BASIC METABOLIC PANELon 10-12 Anion gap [Moles/Vol] 14 mmol/L Normal - [facility] Comment on above: Order Comment: [facility] has implemented the eGFR calculation approach that does not have a coefficient for race that conforms to the NKF-ASN Task Force Recommendations. Performed By: #### L [id number] #### LAB [address] [place], [place] [address] Enzo Mackey M.D. [id number] Calcium [Mass/Vol] 8.3 mg/dL Low 8.4-10.2 [facility] Comment on above: Order Comment: [facility] has implemented the eGFR calculation approach that does not have a coefficient for race that conforms to the NKF-ASN Task Force Recommendations. Performed By: #### L [id number] #### MH LAB [address] [place], [place] [address] Enzo Mackey M.D. [id number] Chloride [Moles/Vol] 103 mmol/L Normal 98-108 [facility] Comment on above: Order Comment: [facility] has implemented the eGFR calculation approach that does not have a coefficient for race that conforms to the NKF-ASN Task Force Recommendations. Performed By: #### L [id number] #### MH LAB [address] [place] [id number] Enzo Mackey M.D. [id number] Creatinine [Mass/Vol] 0.63 mg/dL Low 0.80-1.30 [facility] Comment on above: Order Comment: [facility] has implemented the eGFR calculation approach that does not have a coefficient for race that conforms to the NKF-ASN Task Force Recommendations. Performed By: #### L [id number] #### MH LAB [address] [place], [place] [address] Enzo Mackey M.D. [id number] EGFR 106 mL/min/1.73 m2 Normal >=60 [facility] Comment on above: Order Comment: [facility] has implemented the eGFR calculation approach that does not have a coefficient for race that conforms to the NKF-ASN Task Force Recommendations. Result Comment: Rohan mated GFR was calculated using the 2020 CKD-EPI creatinine equation. Performed By: #### L [id number] #### MH LAB [address] [place] [address] Enzo Mackey M.D. [id number] Glucose [Mass/Vol] 145 mg/dL High 65-99 [facility] Comment on above: Order Comment: [facility] has implemented the eGFR calculation approach that does not have a coefficient for race that conforms to the NKF-ASN Task Force Recommendations. Performed By: #### L [id number] #### MH LAB [address] [place] [address] Enzo Mackey M.D. [id number] HCO3 (Bld) [Moles/Vol] 28 mmol/L Normal 21-32 [facility] Comment on above: Order Comment: [facility] has implemented the eGFR calculation approach that does not have a coefficient for race that conforms to the NKF-ASN Task Force Recommendations. Performed By: #### L [id number] #### MH LAB [address] [place] [address] Enzo Mackey M.D. [id number] Potassium [Moles/Vol] 3.6 mmol/L Normal 3.5-5.1 [facility] Comment on above: Order Comment: [facility] has implemented the eGFR calculation approach that does not have a coefficient for race that conforms to the NKF-ASN Task Force Recommendations. Performed By: #### L [id number] #### MH LAB [address] [place] [address] Enzo Mackey M.D. [id number] Sodium [Moles/Vol] 141 mmol/L Normal 135-145 [facility] Comment on above: Order Comment: [facility] has implemented the eGFR calculation approach that does not have a coefficient for race that conforms to the NKF-ASN Task Force Recommendations. Performed By: #### L [id number] #### MH LAB [address] [place] [address] Enzo Mackey M.D. [id number] Urea nitrogen [Mass/Vol] 4 mg/dL Low 8-25 [facility] Comment on above: Order Comment: [facility] has implemented the eGFR calculation approach that does not have a coefficient for race that conforms to the NKF-ASN Task Force Recommendations. Performed By: #### L [id number] #### LAB [address] [place] [address] Enzo Mackey M.D. [id number] Urea nitrogen/Creatinine [Mass ratio] 6.3 mg/mg Low 10.0-20.0 [facility] Comment on above: Order Comment: [facility] has implemented the eGFR calculation approach that does not have a coefficient for race that conforms to the NKF-ASN Task Force Recommendations. Performed By: #### L [id number] #### LAB [address] [place] [address] Enzo Mackey M.D. [id number] CBCon 10-25-2024 AUTO NRBC 0.0 % Normal [facility] Comment on above: Performed By: #### L [id number] #### LAB [address] [place] [address] Enzo Mackey M.D. [id number] AUTO NRBC ABS COUNT 0.00 K/mcL Normal 0.00-0.00 [facility] Comment on above: Performed By: #### L [id number] #### LAB [address] [place] [address] Enzo Mackey M.D. [id number] Erythrocyte distribution width (RBC) [Ratio] 13.3 % Normal 11.6-14.8 [facility] Comment on above: Performed By: #### L [id number] #### MH LAB [address] [place] [address] Enzo Mackey M.D. [id number] Hematocrit (Bld) [Volume fraction] 40.2 % Low 41.0-53.0 [facility] Comment on above: Performed By: #### L [id number] #### LAB [address] [place] [address] Enzo Mackey M.D. [id number] Hemoglobin (Bld) [Mass/Vol] 12.8 g/dL Low 13.5-17.5 [facility] Comment on above: Performed By: #### L [id number] #### LAB [address] [place] [address] Enzo Mackey M.D. [id number] MCH (RBC) [Entitic mass] 31.4 pg Normal 26.0-34.0 [facility] Comment on above: Performed By: #### L [id number] #### LAB [address] [place] [address] Enzo Mackey M.D. [id number] MCV (RBC) [Entitic vol] 98.5 fL Normal 80.0-100.0 [facility] Comment on above: Performed By: #### L [id number] #### LAB [address] [place] [address] Enzo Mackey M.D. [id number] MEAN CORPUSCULAR HEMOGLOBIN CONC 31.8 g/dL Normal 31.0-37.0 [facility] Comment on above: Performed By: #### L [id number] #### LAB [address] [place] [address] Enzo Mackey M.D. [id number] Platelet mean volume (Bld) [Entitic vol] 11.2 fL Normal 9.4-12.4 [facility] Comment on above: Performed By: #### L [id number] #### LAB [address] [place] [address] Enzo Mackey M.D. [id number] Platelets (Bld) [#/Vol] 160 10*3/uL Normal 150-400 [facility] Comment on above: Performed By: #### L [id number] #### LAB [address] [place] [address] Enzo Mackey M.D. [id number] RBC (Bld) [#/Vol] 4.08 10*6/uL Low 4.50-5.90 [facility] Comment on above: Performed By: #### L [id number] #### LAB [address] [place] [address] Enzo Mackey M.D. [id number] WBC (Bld) [#/Vol] 11.41 10*3/uL High 4.50-11.00 [facility] Comment on above: Performed By: #### L [id number] #### LAB [address] [place] [address] Enzo Mackey M.D. [id number] CBC WITH AUTO DIFFERENTIALon 10-24-2024 AUTO NRBC 0.0 % [facility] Comment on above: Performed By: #### L [id number] #### LAB [address] [place] [address] Enzo Mackey M.D. [id number] AUTO NRBC ABS COUNT 0.00 K/mcL Normal 0.00-0.00 [facility] Comment on above: Performed By: #### L [id number] #### LAB [address] [place] [address] Enzo Mackey M.D. [id number] BASOPHILS ABSOLUTE COUNT 0.04 K/mcL Normal 0.00-0.30 [facility] Comment on above: Performed By: #### L [id number] #### LAB [address] [place] [address] Enzo Mackey M.D. [id number] Basophils/100 WBC (Bld) 0.2 % [facility] Comment on above: Performed By: #### L [id number] #### LAB [address] [place] [address] Enzo Mackey M.D. [id number] Eosinophils (Bld) [#/Vol] 0.18 10*3/uL Normal 0.00-0.50 [facility] Comment on above: Performed By: #### L [id number] #### LAB [address] [place] [address] Enzo Mackey M.D. [id number] Eosinophils/100 WBC (Bld) 1.0 % [facility] Comment on above: Performed By: #### L [id number] #### LAB [address] [place] [address] Enzo Mackey M.D. [id number] Erythrocyte distribution width (RBC) [Ratio] 13.4 % Normal 11.6-14.8 [facility] Comment on above: Performed By: #### L [id number] #### LAB [address] [place] [address] Enzo Mackey M.D. [id number] Hematocrit (Bld) [Volume fraction] 40.2 % Low 41.0-53.0 [facility] Comment on above: Performed By: #### L [id number] #### LAB [address] [place] [address] Enzo Mackey M.D. [id number] Hemoglobin (Bld) [Mass/Vol] 12.8 g/dL Low 13.5-17.5 [facility] Comment on above: Performed By: #### L [id number] #### LAB [address] [place] [address] Enzo Mackey M.D. [id number] IG ABSOLUTE 0.09 K/mcL Normal 0.00-0.30 [facility] Comment on above: Performed By: #### L [id number] #### LAB [address] [place] [address] Enzo Mackey M.D. [id number] IG PERCENT 0.50 % Normal [facility] Comment on above: Result Comment: The IG parameter is the percentage of metamyelocytes, myelocytes and promyelocytes. An immature granulocyte count (IG) of 1% or more suggests the possibility of infection, an IG count of 3% is very likely related to an infection. Performed By: #### L [id number] #### LAB [address] [place] [address] Enzo Mackey M.D. [id number] Lymphocytes (Bld) [#/Vol] 2.38 10*3/uL Normal 0.90-4.00 [facility] Comment on above: Performed By: #### L [id number] #### LAB [address] [place] [address] Enzo Mackey M.D. [id number] Lymphocytes/100 WBC (Bld) 13.1 % Normal [facility] Comment on above: Performed By: #### L [id number] #### LAB [address] [place] [address] Enzo Mackey M.D. [id number] MCH (RBC) [Entitic mass] 31.0 pg Normal 26.0-34.0 [facility] Comment on above: Performed By: #### L [id number] #### MH LAB [address] [place] [address] Enzo Mackey M.D. [id number] MCV (RBC) [Entitic vol] 97.3 fL Normal 80.0-100.0 [facility] Comment on above: Performed By: #### L [id number] #### LAB [address] [place] [address] Enzo Mackey M.D. [id number] MEAN CORPUSCULAR HEMOGLOBIN CONC 31.8 g/dL Normal 31.0-37.0 [facility] Comment on above: Performed By: #### L [id number] #### LAB [address] [place] [address] Enzo Mackey M.D. [id number] Monocytes (Bld) [#/Vol] 1.38 10*3/uL High 0.30-0.90 [facility] Comment on above: Performed By: #### L [id number] #### LAB [address] [place] [address] Enzo Mackey M.D. [id number] Monocytes/100 WBC (Bld) 7.6 % Normal [facility] Comment on above: Performed By: #### L [id number] #### LAB [address] [place] [address] Enzo Mackey M.D. [id number] NEUTROPHILS ABSOLUTE COUNT 14.04 K/mcL High 1.70-7.00 [facility] Comment on above: Performed By: #### L [id number] #### MH LAB [address] [place] [address] Enzo Mackey M.D. [id number] Neutrophils/100 WBC (Bld) 77.6 % Normal [facility] Comment on above: Performed By: #### L [id number] #### MH LAB [address] [place] [address] Enzo Mackey M.D. [id number] Platelet mean volume (Bld) [Entitic vol] 10.7 fL Normal 9.4-12.4 [facility] Comment on above: Performed By: #### L [id number] #### MH LAB [address] [place] [address] Enzo Mackey M.D. [id number] Platelets (Bld) [#/Vol] 157 10*3/uL Normal 150-400 [facility] Comment on above: Performed By: #### L [id number] #### MH LAB [address] [place] [address] Enzo Mackey M.D. [id number] RBC (Bld) [#/Vol] 4.13 10*6/uL Low 4.50-5.90 [facility] Comment on above: Performed By: #### L [id number] #### MH LAB [address] [place] [address] Enzo Mackey M.D. [id number] WBC (Bld) [#/Vol] 18.11 10*3/uL High 4.50-11.00 [facility] Comment on above: Performed By: #### L [id number] #### LAB [address] [place] [address] Enzo Mackey M.D. [id number] COMPREHENSIVE METABOLIC PANE Adan 10-24-2024 Albumin [Mass/Vol] 3.3 g/dL Normal 3.2-5.2 [facility] Comment on above: Order Comment: [facility] has implemented the eGFR calculation approach that does not have a coefficient for race that conforms to the NKF-ASN Task Force Recommendations. Performed By: #### [id number] #### MH LAB [address] [place] [address] Enzo Mackey M.D. [id number] ALP [Catalytic activity/Vol] 124 U/L Normal 40-150 [facility] Comment on above: Order Comment: [facility] has implemented the eGFR calculation approach that does not have a coefficient for race that conforms to the NKF-ASN Task Force Recommendations. Performed By: #### 4 [id number] #### LAB [address] [place] [address] Enzo Mackey M.D. [id number] ALT [Catalytic activity/Vol] 21 U/L Normal 0-50 U/L [facility] Comment on above: Order Comment: [facility] has implemented the eGFR calculation approach that does not have a coefficient for race that conforms to the NKF-ASN Task Force Recommendations. Performed By: #### 4 [id number] #### LAB [address] [place] [address] Enzo Mackey M.D. [id number] Anion gap [Moles/Vol] 13 mmol/L Normal 10-20 [facility] Comment on above: Order Comment: [facility] has implemented the eGFR calculation approach that does not have a coefficient for race that conforms to the NKF-ASN Task Force Recommendations. Performed By: #### 4 [id number] #### LAB [address] [place] [address] Enzo Mackey M.D. [id number] AST [Catalytic activity/Vol] 19 U/L Normal 0-50 U/L [facility] Comment on above: Order Comment: [facility] has implemented the eGFR calculation approach that does not have a coefficient for race that conforms to the NKF-ASN Task Force Recommendations. Performed By: #### 4 [id number] #### LAB [address] [place] [address] Enzo Mackey M.D. [id number] Bilirubin [Mass/Vol] 0.3 mg/dL Normal 0.0-1.3 [facility] Comment on above: Order Comment: [facility] has implemented the eGFR calculation approach that does not have a coefficient for race that conforms to the NKF-ASN Task Force Recommendations. Performed By: #### 4 [id number] #### MH LAB [address] [place], [place] [address] Enzo Mackey M.D. [id number] Calcium [Mass/Vol] 8.6 mg/dL Normal 8.4-10.2 [facility] Comment on above: Order Comment: [facility] has implemented the eGFR calculation approach that does not have a coefficient for race that conforms to the NKF-ASN Task Force Recommendations. Performed By: #### 4 [id number] #### MH LAB [address] [place] [address] Enzo Mackey M.D. [id number] Chloride [Moles/Vol] 103 mmol/L Normal 98-108 [facility] Comment on above: Order Comment: [facility] has implemented the eGFR calculation approach that does not have a coefficient for race that conforms to the NKF-ASN Task Force Recommendations. Performed By: #### 4 [id number] #### LAB [address] [place] [address] Enzo Mackey M.D. [id number] Creatinine [Mass/Vol] 0.66 mg/dL Low 0.80-1.30 [facility] Comment on above: Order Comment: [facility] has implemented the eGFR calculation approach that does not have a coefficient for race that conforms to the NKF-ASN Task Force Recommendations. Performed By: #### 4 [id number] #### LAB [address] [place] [address] Enzo Mackey M.D. [id number] EGFR 104 mL/min/1.73 m2 Normal >=60 [facility] Comment on above: Order Comment: [facility] has implemented the eGFR calculation approach that does not have a coefficient for race that conforms to the NKF-ASN Task Force Recommendations. Result Comment: Rohan mated GFR was calculated using the 2020 CKD-EPI creatinine equation. Performed By: #### [id number] #### LAB [address] [place] [id number] Enzo Mackey M.D. [id number] Glucose [Mass/Vol] 101 mg/dL High 65-99 [facility] Comment on above: Order Comment: [facility] has implemented the eGFR calculation approach that does not have a coefficient for race that conforms to the NKF-ASN Task Force Recommendations. Performed By: #### 4 [id number] #### LAB [address] [place], [place] [address] Enzo Mackey M.D. [id number] HCO3 (Bld) [Moles/Vol] 27 mmol/L Normal 21-32 [facility] Comment on above: Order Comment: [facility] has implemented the eGFR calculation approach that does not have a coefficient for race that conforms to the NKF-ASN Task Force Recommendations. Performed By: #### 4 [id number] #### LAB [address] [place] [address] Enzo Mackey M.D. [id number] Potassium [Moles/Vol] 3.9 mmol/L Normal 3.5-5.1 [facility] Comment on above: Order Comment: [facility] has implemented the eGFR calculation approach that does not have a coefficient for race that conforms to the NKF-ASN Task Force Recommendations. Performed By: #### 4 [id number] #### LAB [address] [place] [address] Enzo Mackey M.D. [id number] Protein [Mass/Vol] 6.4 g/dL Normal 6.0-8.0 [facility] Comment on above: Order Comment: [facility] has implemented the eGFR calculation approach that does not have a coefficient for race that conforms to the NKF-ASN Task Force Recommendations. Performed By: #### 4 [id number] #### LAB [address] [place], [place] [address] Enzo Mackey M.D. [id number] Sodium [Moles/Vol] 139 mmol/L Normal 135-145 [facility] Comment on above: Order Comment: [facility] has implemented the eGFR calculation approach that does not have a coefficient for race that conforms to the NKF-ASN Task Force Recommendations. Performed By: #### 4 [id number] #### MH LAB [address] [place], [place] [address] Enzo Mackey M.D. [id number] Urea nitrogen [Mass/Vol] 9 mg/dL Normal 8-25 [facility] Comment on above: Order Comment: [facility] has implemented the eGFR calculation approach that does not have a coefficient for race that conforms to the NKF-ASN Task Force Recommendations. Performed By: #### 4 [id number] #### LAB [address] [place], [place] [address] Enzo Mackey M.D. [id number] Urea nitrogen/Creatinine [Mass ratio] 13.6 mg/mg Normal 10.0-20.0 [facility] Comment on above: Order Comment: [facility] has implemented the eGFR calculation approach that does not have a coefficient for race that conforms to the NKF-ASN Task Force Recommendations. Performed By: #### 4 [id number] #### LAB [address] [place], [place] [address] Enzo Mackey M.D. [id number] LACTIC ACID, PLASMAon 2024 LACTIC ACID, PLASMA 1.4 mmol/L Normal 0.6-2.0 [facility] Comment on above: Performed By: #### 4 [id number] #### LAB [address] [place], [place] [address] Enzo Mackey M.D. [id number] MAGNESIUM LEVELon 10-24-2024 Magnesium [Mass/Vol] 2.1 mg/dL Normal 1.6-2.4 [facility] Comment on above: Performed By: #### 4 [id number] #### LAB [address] [place], [place] [address] Enzo Mackey M.D. [id number] OP NOTEon 10-24-2024 OP NOTE [facility] PATIENT: Pancho Mcpherson DATE / TIME: 10/29/24 1:16 PM POS: Office AGE: 64 y.o. : 1960 RACE: [1] SEX: male PCP: Mahamed Neri DO REFERRAL: No ref. provider found PREOPERATIVE DIAGNOSIS: Cholelithiasis with cholecystitis POST-OP DIAGNOSIS: Cholelithiasis with cholecystitis PROCEDURE: Robotic assisted laparoscopic cholecystectomy with lysis of adhesions SURGEON: Jakub Oglesby MD ANESTHESIA: MARIA DESCRIPTION OF PROCEDURE: The patient was brought to the operating room and placed on the operating room table in the supine position. Preoperative antibiotics were administered. After adequate anesthesia, the abdomen was prepped and draped in the usual sterile fashion. A time out was completed. A supraumbilical midline incision was made and carried down to and through the fascia. A 12 mm balloon port was inserted. The abdomen was insufflated to 15 mmHg, which the patient tolerated well. An 8 mm Da Bel port was placed in the left upper quadrant. Omental adhesions to the right upper abdominal wall were swept down with a laparoscopic grasper. Two 8 mm DaVinci ports were placed laterally to the patient's right. The patient was positioned in reverse Trendelenburg position with the left side down. The gallbladder was incased in the anterior abdominal wall. Some dissection around Calot's triangle was performed but there was very limited mobility of the gallbladder. Dissection of the fundus ensued. The gallbladder had eroded into the anterior abdominal wall. It was dissected free over more than an hour of time. The contents of the gallbladder were suctioned and large stones placed in an endoscopic retrieval bag and removed. Dissection of the gallbladder continued in a top down fashion. The infundibulum was identified and the Cadiere grasper was used to retract laterally to expose Calot's Nemo. The peritoneum overlying the gallbladder was incised anteriorly and posteriorly using hook electrocautery. There was extensive fat overlying the infundibulum of the gallbladder and the cystic duct. The fatty tissue and adhesions were carefully divided using hook electrocautery. Three clips were placed on both the cystic duct and the cystic artery. Scissors were used to divide the duct and artery. The cystic duct and cystic artery stumps were examined and there was no evidence of bile leakage or bleeding. Hook electrocautery was used to separate the gallbladder from its bed in the liver. The gallbladder was placed in an endoscopic retrieval bag and removed through the periumbilical port. The gallbladder was later sent to pathology. The liver bed, cystic duct stump, and cystic artery stump were examined. There was no bleeding or bile leakage from the stump. Secondary ports were removed under direct vision. The balloon port was removed and the abdomen was allowed to collapse. The periumbilical port site fascia was closed using 0 Vicryl suture. All skin incisions were closed using 4-0 Monocryl. Exofin adhesive was applied. The patient tolerated the procedure well and was transferred to the PACU in stable condition. SPECIMENS / FINDINGS: Gallbladder WOUND CLASS: III EBL: 25 ml COMPLICATIONS: None apparent AUTHENTICATED BY JAKUB OGLESBY, ON 10/31/2024 08:43:46 Normal [facility] TISSUE EXAMon 10-24-2024 TISSUE EXAM Surgical Pathology Report Case: [id number] Authorizing Provider: Jakub Oglesby MD Collected: 10/24/2024 11:32 AM Ordering Location: [facility] Received: 10/24/2024 01:01 PM Pathologist: Marky Lynne IV, MD Specimen: Gallbladder, out of body at 1117 A. Gallbladder, cholecystectomy: Acute and chronic cholecystitis with ulcer and acute serositis. Cholelithiasis and cholesterolosis. A. The specimen is received in formalin, designated gallbladder, and consists of a previously partially open gallbladder that upon reconstruction measures 6.5 x 2.5 x 2.5 cm. Gallbladder is accompanied by 3 reddish-green calculi aggregating to 2 x 2 x 1 cm. Serosal surface of the gallbladder is pink-mclaughlin and hyperemic with dense adhesions. Upon further opening the gallbladder, the mucosa is pink-adamson and hemorrhagic. The wall shows marked thickening of tissue 1 cm in thickness. An additional gallstone is identified within the gallbladder measuring 1 x 1 x 1 cm. No calculi identified within the cystic duct. Multiple professional healthcare representative sections are submitted in 3 cassettes. JK Gross examination performed at: [facility] - [address] [place] [address] Microscopic examination is performed. Normal [facility] Comment on above: Performed By: #### L [id number] #### LAB [address] [place] [address] Enzo Mackey M.D. [id number] CBC WITH AUTO DIFFERENTIALon 10-23-2024 AUTO NRBC 0.0 % Normal [facility] Comment on above: Performed By: #### L [id number] #### MH LAB [address] [address] Enzo Mackey M.D. [id number] AUTO NRBC ABS COUNT 0.00 K/mcL Normal 0.00-0.00 [facility] Comment on above: Performed By: #### L [id number] #### LAB [address] [address] Enzo Mackey M.D. [id number] Erythrocyte distribution width (RBC) [Ratio] 13.4 % Normal 11.6-14.8 [facility] Comment on above: Performed By: #### L [id number] #### LAB [address] [address] Enzo Mackey M.D. [id number] Hematocrit (Bld) [Volume fraction] 39.5 % Low 41.0-53.0 [facility] Comment on above: Performed By: #### L [id number] #### LAB [address] [address] Enzo Mackey M.D. [id number] Hemoglobin (Bld) [Mass/Vol] 12.9 g/dL Low 13.5-17.5 [facility] Comment on above: Performed By: #### L [id number] #### LAB [address] [address] Enzo Mackey M.D. [id number] MCH (RBC) [Entitic mass] 31.2 pg Normal 26.0-34.0 [facility] Comment on above: Performed By: #### L [id number] #### MH LAB [address] [address] Enzo Mackey M.D. [id number] MCV (RBC) [Entitic vol] 95.4 fL Normal 80.0-100.0 [facility] Comment on above: Performed By: #### L [id number] #### MH LAB [address] [place] [address] Enzo Mackey M.D. [id number] MEAN CORPUSCULAR HEMOGLOBIN CONC 32.7 g/dL Normal 31.0-37.0 [facility] Comment on above: Performed By: #### L [id number] #### MH LAB [address] [address] Enzo Mackey M.D. [id number] Platelet mean volume (Bld) [Entitic vol] 10.4 fL Normal 9.4-12.4 [facility] Comment on above: Performed By: #### L [id number] #### MH LAB [address] [address] Enzo Mackey M.D. [id number] Platelets (Bld) [#/Vol] 159 10*3/uL Normal 150-400 [facility] Comment on above: Performed By: #### L [id number] #### MH LAB [address] [address] Enzo Mackey M.D. [id number] RBC (Bld) [#/Vol] 4.14 10*6/uL Low 4.50-5.90 [facility] Comment on above: Performed By: #### L [id number] #### MH LAB [address] [address] Enzo Mackey M.D. [id number] WBC (Bld) [#/Vol] 24.93 10*3/uL High 4.50-11.00 [facility] Comment on above: Performed By: #### L [id number] #### MH LAB [address] [address] Enzo Mackey M.D. [id number] COMPREHENSIVE METABOLIC PANE Adan 10-23-2024 Albumin [Mass/Vol] 3.4 g/dL Normal 3.2-5.2 [facility] Comment on above: Order Comment: [facility] has implemented the eGFR calculation approach that does not have a coefficient for race that conforms to the NKF-ASN Task Force Recommendations. Performed By: #### 4 [id number] #### MH LAB [address] [address] Enzo Mackey M.D. [id number] ALP [Catalytic activity/Vol] 121 U/L Normal 40-150 [facility] Comment on above: Order Comment: [facility] has implemented the eGFR calculation approach that does not have a coefficient for race that conforms to the NKF-ASN Task Force Recommendations. Performed By: #### 4 [id number] #### LAB [address] [place], [place] [address] Enzo Mackey M.D. [id number] ALT [Catalytic activity/Vol] 30 U/L Normal 0-50 U/L [facility] Comment on above: Order Comment: [facility] has implemented the eGFR calculation approach that does not have a coefficient for race that conforms to the NKF-ASN Task Force Recommendations. Performed By: #### 4 [id number] #### LAB [address] [address] Enzo Mackey M.D. [id number] Anion gap [Moles/Vol] 15 mmol/L Normal 10-20 [facility] Comment on above: Order Comment: [facility] has implemented the eGFR calculation approach that does not have a coefficient for race that conforms to the NKF-ASN Task Force Recommendations. Performed By: #### 4 [id number] #### LAB [address] [address] Enzo Mackey M.D. [id number] AST [Catalytic activity/Vol] 22 U/L Normal 0-50 U/L [facility] Comment on above: Order Comment: [facility] has implemented the eGFR calculation approach that does not have a coefficient for race that conforms to the NKF-ASN Task Force Recommendations. Performed By: #### 4 [id number] #### LAB [address] [place], [place] [address] Enzo Mackey M.D. [id number] Bilirubin [Mass/Vol] 0.4 mg/dL Normal 0.0-1.3 [facility] Comment on above: Order Comment: [facility] has implemented the eGFR calculation approach that does not have a coefficient for race that conforms to the NKF-ASN Task Force Recommendations. Performed By: #### 4 [id number] #### LAB [address] [place], [place] [address] Enzo Mackey M.D. [id number] Calcium [Mass/Vol] 8.1 mg/dL Low 8.4-10.2 [facility] Comment on above: Order Comment: [facility] has implemented the eGFR calculation approach that does not have a coefficient for race that conforms to the NKF-ASN Task Force Recommendations. Performed By: #### 4 [id number] #### LAB [address] [address] Enzo Mackey M.D. [id number] Chloride [Moles/Vol] 103 mmol/L Normal 98-108 [facility] Comment on above: Order Comment: [facility] has implemented the eGFR calculation approach that does not have a coefficient for race that conforms to the NKF-ASN Task Force Recommendations. Performed By: #### 4 5456 #### LAB [address] [address] Enzo Mackey M.D. [id number] Creatinine [Mass/Vol] 0.65 mg/dL Low 0.80-1.30 [facility] Comment on above: Order Comment: [facility] has implemented the eGFR calculation approach that does not have a coefficient for race that conforms to the NKF-ASN Task Force Recommendations. Performed By: #### 4 [id number] #### LAB [address] [address] Enzo Mackey M.D. [id number] EGFR 105 mL/min/1.73 m2 Normal >=60 [facility] Comment on above: Order Comment: [facility] has implemented the eGFR calculation approach that does not have a coefficient for race that conforms to the NKF-ASN Task Force Recommendations. Result Comment: Rohan mated GFR was calculated using the 2020 CKD-EPI creatinine equation. Performed By: #### 4 [id number] #### LAB [address] [place], [place] [address] Enzo Mackey M.D. [id number] Glucose [Mass/Vol] 121 mg/dL High 65-99 [facility] Comment on above: Order Comment: [facility] has implemented the eGFR calculation approach that does not have a coefficient for race that conforms to the NKF-ASN Task Force Recommendations. Performed By: #### 4 [id number] #### LAB [address] [place], [place] [address] Enzo Mackey M.D. [id number] HCO3 (Bld) [Moles/Vol] 26 mmol/L Normal 21-32 [facility] Comment on above: Order Comment: [facility] has implemented the eGFR calculation approach that does not have a coefficient for race that conforms to the NKF-ASN Task Force Recommendations. Performed By: #### 4 [id number] #### LAB [address] [address] Enzo Mackey M.D. [id number] Potassium [Moles/Vol] 3.9 mmol/L Normal 3.5-5.1 [facility] Comment on above: Order Comment: [facility] has implemented the eGFR calculation approach that does not have a coefficient for race that conforms to the NKF-ASN Task Force Recommendations. Result Comment: Slig htly Hemolyzed Performed By: #### 4 [id number] #### LAB [address] [address] Enzo Mackey M.D. [id number] Protein [Mass/Vol] 6.5 g/dL Normal 6.0-8.0 [facility] Comment on above: Order Comment: [facility] has implemented the eGFR calculation approach that does not have a coefficient for race that conforms to the NKF-ASN Task Force Recommendations. Performed By: #### 4 [id number] #### LAB [address] [place], [place] [address] Enzo Mackey M.D. [id number] Sodium [Moles/Vol] 140 mmol/L Normal 135-145 [facility] Comment on above: Order Comment: [facility] has implemented the eGFR calculation approach that does not have a coefficient for race that conforms to the NKF-ASN Task Force Recommendations. Performed By: #### 4 [id number] #### LAB [address] [place], [place] [address] Enzo Mackey M.D. [id number] Urea nitrogen [Mass/Vol] 9 mg/dL Normal 8-25 [facility] Comment on above: Order Comment: [facility] has implemented the eGFR calculation approach that does not have a coefficient for race that conforms to the NKF-ASN Task Force Recommendations. Performed By: #### 4 [id number] #### LAB [address] [address] Enzo Mackey M.D. [id number] Urea nitrogen/Creatinine [Mass ratio] 13.8 mg/mg Normal 10.0-20.0 [facility] Comment on above: Order Comment: [facility] has implemented the eGFR calculation approach that does not have a coefficient for race that conforms to the NKF-ASN Task Force Recommendations. Performed By: #### 4 [id number] #### LAB [address] [place], [place] [address] Enzo Mackey M.D. [id number] HEMOGLOBIN A1Con 10-23-2024 Glucose [Mass/Vol] 108 mg/dL Normal 74-114 [facility] Comment on above: Performed By: #### L [id number] #### MH LAB [address] [place], [place] [address] Enzo Mackey M.D. [id number] HbA1c (Bld) [Mass fraction] 5.4 % Normal 4.2-5.6 [facility] Comment on above: Performed By: #### L [id number] #### MH LAB [address] [place], [place] [address] Enzo Mackey M.D. [id number] LACTIC ACID, PLASMAon 2024 LACTIC ACID, PLASMA 1.4 mmol/L Normal 0.6-2.0 [facility] Comment on above: Performed By: #### 4 [id number] #### MH LAB [address] [place], [place] [address] Enzo Mackey M.D. [id number] MAGNESIUM LEVELon 10-23-2024 Magnesium [Mass/Vol] 2.1 mg/dL Normal 1.6-2.4 [facility] Comment on above: Performed By: #### 4 6109 #### LAB [address] [address] Enzo Mackey M.D. [id number] MANUAL DIFFERENTIALon 2024 BASOPHILS - ABS (DIFF) 0.00 K/mcL Normal 0.00-0.30 [facility] Comment on above: Performed By: #### 4 [id number] #### LAB [address] [address] Enzo Mackey M.D. [id number] BASOPHILS - REL (DIFF) 0.0 % [facility] Comment on above: Performed By: #### 4 [id number] #### LAB [address] [address] Enzo Mackey M.D. [id number] EOSINOPHILS - ABS (DIFF) 0.00 K/mcL Normal 0.00-0.50 [facility] Comment on above: Performed By: #### 4 5956 #### LAB [address] [address] Enzo Mackey M.D. [id number] EOSINOPHILS - REL (DIFF) 0.0 % [facility] Comment on above: Performed By: #### 4 5451 #### LAB [address] [address] Enzo Mackey M.D. [id number] LYMPHOCYTE ATYPICAL - REL (DIFF) 1.7 % [facility] Comment on above: Performed By: #### 4 7242 #### LAB [address] [address] Enzo Mackey M.D. [id number] LYMPHOCYTES - ABS (DIFF) 1.30 K/mcL Normal 0.90-4.00 [facility] Comment on above: Performed By: #### 4 1968 #### LAB [address] [address] Enzo Mackey M.D. [id number] LYMPHOCYTES - REL (DIFF) 3.5 % [facility] Comment on above: Performed By: #### 4 2334 #### LAB [address] [id number] Enzo Mackey M.D. [id number] MONOCYTES - ABS (DIFF) 1.75 K/mcL High 0.30-0.90 [facility] Comment on above: Performed By: #### 4 5456 #### LAB [address] [address] Enzo Mackey M.D. [id number] MONOCYTES - REL (DIFF) 7.0 % [facility] Comment on above: Performed By: #### 4 5456 #### LAB [address] [address] Enzo Mackey M.D. [id number] NEUTROPHILS - ABS (DIFF) 21.89 K/mcL High 1.70-7.00 [facility] Comment on above: Performed By: #### 4 5456 #### LAB [address] [address] Enzo Mackey M.D. [id number] NEUTROPHILS - REL (DIFF) 87.8 % [facility] Comment on above: Performed By: #### 4 5456 #### LAB [address] [address] Enzo Mackey M.D. [id number] MORPHOLOGYon 10-23-2024 PLATELET ESTIMATE Normal Normal [facility] Comment on above: Performed By: #### L [id number] #### LAB [address] [address] Enzo Mackey M.D. [id number] POLY SCAN Few [facility] Comment on above: Performed By: #### L AB295 #### LAB [address] [id number] Enzo Mackey M.D. [id number] RBC MORPH SCAN See Comment [facility] Comment on above: Result Comment: RBC Indices confirmed with manual peripheral smear review. Performed By: #### L [id number] #### MH LAB [address] [address] Enzo Mackey M.D. [id number] STOMATOCYTES Few Normal [facility] Comment on above: Performed By: #### L [id number] #### MH LAB [address] [place], [place] [address] Enzo Mackey M.D. [id number] TOXIC GRANULATION Few Normal [facility] Comment on above: Performed By: #### L [id number] #### MH LAB [address] [place], [place] [address] Enzo Mackey M.D. [id number] VACUOLATED GRANULOCYTES Present Normal [facility] Comment on above: Performed By: #### L [id number] #### MH LAB [address] [place], [place] [address] Enzo Mackey M.D. [id number] NM HEPATOBILIARY WO EJECTION FRACTIONon 10-23-2024 NM HEPATOBILIARY WO EJECTION FRACTION EXAMINATION: NM HEPATOBILIARY WO EJECTION FRACTION HISTORY: ORDERING SYSTEM PROVIDED HISTORY: RUQ pain, poss cholecystitis. TECHNOLOGIST PROVIDED HISTORY: Illness/Other. Reason for exam: RUQ pain, poss cholecystitis. Encounter Type: Unknown. Additional signs and symptoms: None. ORDERING SYSTEM PROVIDED DIAGNOSIS CODES: K81.0 Acute cholecystitis. R10.9 Abdominal pain, unspecified abdominal location. A41.9 Sepsis, due to unspecified organism, unspecified whether acute organ dysfunction present (HCC). K80.12 Calculus of GB w acute and chronic cholecyst w/o obstruction. COMPARISON: Ultrasound abdomen 10/22/2024. TECHNIQUE: Sequential anterior abdominal images were obtained for 60 minutes following the intravenous administration of 5.2 mCi of technetium-99m mebrofenin. Delayed image obtained. FINDINGS: Mildly delayed hepatic transit time. Prompt small bowel visualization. No gallbladder visualization at 60 minutes. Delayed images at 90 minutes and 3.5 hours show no gallbladder activity. IMPRESSION: No gallbladder visualization at 3.5 hours post injection. Findings may represent acute cholecystitis. [employer] Workstation ID: [id number] Dictated by: ALEKSANDR FIGUEREDO on MonOct 23, 2024 3:25:25 PM EDT Transcribed by: EMMIE JERNIGAN on MonOct 23, 2024 3:27:12 PM EDT Finalized by: ALEKSANDR FIGUEREDO on MonOct 23, 2024 4:43:24 PM EDT [facility] Comment on above: Order Comment: Injur y/Trauma or Illness?:Illness/OtherHow long have you had these symptoms (acute/chronic)?:UnknownReason for exam?:RUQ pain, poss cholecytitisType of Exam?:UnknownAdditional signs and symptoms?:none PHOSPHORUSon 10-23-2024 Phosphate [Mass/Vol] 3.2 mg/dL Normal 2.3-3.7 [facility] Comment on above: Performed By: #### L [id number] #### LAB [address] [address] Enzo Mackey M.D. [id number] TSHon 10-23-2024 TSH Qn 2.17 m[IU]/L Normal 0.27-4.20 [facility] Comment on above: Performed By: #### 4 5456 #### LAB [address] [address] Enzo Mackey M.D. [id number] URINE AEROBIC CULTUREon 10-12 URINE AEROBIC CULTURE URINE CULTURE No Growth (<1,000 CFU/mL) [facility] Comment on above: Performed By: #### 4 6109 #### LAB [address] [address] Enzo Mackey M.D. [id number] BLOOD CULTURE AEROBIC/ANAERO BICon 10-22-2024 BLOOD CULTURE AEROBIC/ANAEROBIC BLOOD CULTURE No Growth after 5 days [facility] Comment on above: Performed By: #### 4 6109 #### LAB [address] [address] Enzo Mackey M.D. [id number] CBC WITH AUTO DIFFERENTIALon 10-22-2024 AUTO NRBC 0.0 % [facility] Comment on above: Performed By: #### L [id number] #### MH LAB [address] [address] Enzo Mackey M.D. [id number] AUTO NRBC ABS COUNT 0.00 K/mcL Normal 0.00-0.00 [facility] Comment on above: Performed By: #### L [id number] #### MH LAB [address] [address] Enzo Mackey M.D. [id number] Erythrocyte distribution width (RBC) [Ratio] 13.2 % Normal 11.6-14.8 [facility] Comment on above: Performed By: #### L [id number] #### LAB [address] [address] Enzo Mackey M.D. [id number] Hematocrit (Bld) [Volume fraction] 44.8 % Normal 41.0-53.0 [facility] Comment on above: Performed By: #### L [id number] #### LAB [address] [address] Enzo Mackey M.D. [id number] Hemoglobin (Bld) [Mass/Vol] 14.8 g/dL Normal 13.5-17.5 [facility] Comment on above: Performed By: #### L [id number] #### LAB [address] [address] Enzo Mackey M.D. [id number] MCH (RBC) [Entitic mass] 31.2 pg Normal 26.0-34.0 [facility] Comment on above: Performed By: #### L [id number] #### LAB [address] [address] Enzo Mackey M.D. [id number] MCV (RBC) [Entitic vol] 94.5 fL Normal 80.0-100.0 [facility] Comment on above: Performed By: #### L [id number] #### LAB [address] [address] Enzo Mackey M.D. [id number] MEAN CORPUSCULAR HEMOGLOBIN CONC 33.0 g/dL Normal 31.0-37.0 [facility] Comment on above: Performed By: #### L [id number] #### MH LAB [address] [address] Enzo Mackey M.D. [id number] Platelet mean volume (Bld) [Entitic vol] 10.3 fL Normal 9.4-12.4 [facility] Comment on above: Performed By: #### L [id number] #### MH LAB [address] [address] Enzo Mackey M.D. [id number] Platelets (Bld) [#/Vol] 203 10*3/uL Normal 150-400 [facility] Comment on above: Performed By: #### L [id number] #### MH LAB [address] [address] Enzo Mackey M.D. [id number] RBC (Bld) [#/Vol] 4.74 10*6/uL Normal 4.50-5.90 [facility] Comment on above: Performed By: #### L [id number] #### MH LAB [address] [address] Enzo Mackey M.D. [id number] WBC (Bld) [#/Vol] 26.61 10*3/uL High 4.50-11.00 [facility] Comment on above: Performed By: #### L [id number] #### MH LAB [address] [address] Enzo Mackey M.D. [id number] COMPREHENSIVE METABOLIC PANE Adan 10-22-2024 Albumin [Mass/Vol] 4.3 g/dL Normal 3.2-5.2 [facility] Comment on above: Order Comment: [facility] has implemented the eGFR calculation approach that does not have a coefficient for race that conforms to the NKF-ASN Task Force Recommendations. Performed By: #### 4 5456 #### MH LAB [address] [address] Enzo Mackey M.D. [id number] ALP [Catalytic activity/Vol] 163 U/L High 40-150 [facility] Comment on above: Order Comment: [facility] has implemented the eGFR calculation approach that does not have a coefficient for race that conforms to the NKF-ASN Task Force Recommendations. Performed By: #### 4 5456 #### MH LAB [address] [address] Enzo Mackey M.D. [id number] ALT [Catalytic activity/Vol] 42 U/L Normal 0-50 U/L [facility] Comment on above: Order Comment: [facility] has implemented the eGFR calculation approach that does not have a coefficient for race that conforms to the NKF-ASN Task Force Recommendations. Performed By: #### 4 5456 #### LAB [address] [address] Enzo Mackey M.D. [id number] Anion gap [Moles/Vol] 18 mmol/L Normal 10-20 [facility] Comment on above: Order Comment: [facility] has implemented the eGFR calculation approach that does not have a coefficient for race that conforms to the NKF-ASN Task Force Recommendations. Performed By: #### 4 5456 #### LAB [address] [address] Enzo Mackey M.D. [id number] AST [Catalytic activity/Vol] 32 U/L Normal 0-50 U/L [facility] Comment on above: Order Comment: [facility] has implemented the eGFR calculation approach that does not have a coefficient for race that conforms to the NKF-ASN Task Force Recommendations. Performed By: #### 4 5456 #### LAB [address] [address] Enzo Mackey M.D. [id number] Bilirubin [Mass/Vol] 0.4 mg/dL Normal 0.0-1.3 [facility] Comment on above: Order Comment: [facility] has implemented the eGFR calculation approach that does not have a coefficient for race that conforms to the NKF-ASN Task Force Recommendations. Performed By: #### 4 5456 #### LAB [address] [address] Enzo Mackey M.D. [id number] Calcium [Mass/Vol] 9.3 mg/dL Normal 8.4-10.2 [facility] Comment on above: Order Comment: [facility] has implemented the eGFR calculation approach that does not have a coefficient for race that conforms to the NKF-ASN Task Force Recommendations. Performed By: #### 4 5456 #### LAB [address] [place], [place] [address] Enzo Mackey M.D. [id number] Chloride [Moles/Vol] 97 mmol/L Low 98-108 [facility] Comment on above: Order Comment: [facility] has implemented the eGFR calculation approach that does not have a coefficient for race that conforms to the NKF-ASN Task Force Recommendations. Performed By: #### 4 5456 #### LAB [address] [place] [address] Enzo Mackey M.D. [id number] Creatinine [Mass/Vol] 0.70 mg/dL Low 0.80-1.30 [facility] Comment on above: Order Comment: [facility] has implemented the eGFR calculation approach that does not have a coefficient for race that conforms to the NKF-ASN Task Force Recommendations. Performed By: #### 4 5456 #### LAB [address] [place] [address] Enzo Mackey M.D. [id number] EGFR 102 mL/min/1.73 m2 Normal >=60 [facility] Comment on above: Order Comment: [facility] has implemented the eGFR calculation approach that does not have a coefficient for race that conforms to the NKF-ASN Task Force Recommendations. Result Comment: Rohan mated GFR was calculated using the 2020 CKD-EPI creatinine equation. Performed By: #### 4 5456 #### LAB [address] [place] [address] Enzo Mackey M.D. [id number] Glucose [Mass/Vol] 121 mg/dL High 65-99 [facility] Comment on above: Order Comment: [facility] has implemented the eGFR calculation approach that does not have a coefficient for race that conforms to the NKF-ASN Task Force Recommendations. Performed By: #### 4 5456 #### LAB [address] [place] [id number] Enzo Mackey M.D. [id number] HCO3 (Bld) [Moles/Vol] 27 mmol/L Normal 21-32 [facility] Comment on above: Order Comment: [facility] [facility] has implemented the eGFR calculation approach that does not have a coefficient for race that conforms to the NKF-ASN Task Force Recommendations. Performed By: #### 4 [id number] #### MH LAB [address] [place], [place] [address] Enzo Mackey M.D. [id number] Potassium [Moles/Vol] 4.1 mmol/L Normal 3.5-5.1 [facility] Comment on above: Order Comment: [facility] has implemented the eGFR calculation approach that does not have a coefficient for race that conforms to the NKF-ASN Task Force Recommendations. Performed By: #### 4 [id number] #### MH LAB [address] [place] [id number] Enzo Mackey M.D. [id number] Protein [Mass/Vol] 7.6 g/dL Normal 6.0-8.0 [facility] Comment on above: Order Comment: [facility] has implemented the eGFR calculation approach that does not have a coefficient for race that conforms to the NKF-ASN Task Force Recommendations. Performed By: #### 4 [id number] #### MH LAB [address] [place] [address] Enzo Mackey M.D. [id number] Sodium [Moles/Vol] 138 mmol/L Normal 135-145 [facility] Comment on above: Order Comment: [facility] has implemented the eGFR calculation approach that does not have a coefficient for race that conforms to the NKF-ASN Task Force Recommendations. Performed By: #### 4 [id number] #### MH LAB [address] [place], [place] [address] Enzo Mackey M.D. [id number] Urea nitrogen [Mass/Vol] 10 mg/dL Normal 8-25 [facility] Comment on above: Order Comment: [facility] has implemented the eGFR calculation approach that does not have a coefficient for race that conforms to the NKF-ASN Task Force Recommendations. Performed By: #### 4 [id number] #### LAB [address] [place], [place] [address] Enzo Mackey M.D. [id number] Urea nitrogen/Creatinine [Mass ratio] 14.3 mg/mg Normal 10.0-20.0 [facility] Comment on above: Order Comment: [facility] has implemented the eGFR calculation approach that does not have a coefficient for race that conforms to the NKF-ASN Task Force Recommendations. Performed By: #### 4 [id number] #### LAB [address] [place], [place] [address] Enzo Mackey M.D. [id number] CONSULTon 10-22-2024 CONSULT --- Attestation signed by Jakub Oglesby MD at 10/23/2024 4:39 PM Patient Name: Pancho Mcpherson MR #: [id number] The patient was independently seen and examined by me, the attending surgeon. I have independently reviewed the patient's imaging and laboratory data. I have reviewed the below note and agree with the documented history, exam, and plan of care, with the following additions and corrections: Patient denies abdominal pain at this time Physical Exam: NAD, AAO, GCS 15 NLR Abdomen soft, NT/ND Midline incision WHITE x4 Assessment and Plan: No changes noted from the physical exam and plan noted in the associated note. Pancho Mcpherson is a 64 y.o. male with PMH epilepsy and developmental disorder PSH pinning of leg fracture, cervical spine surgery, surgery to remove dentures from small intestines. HIDA confirms possible cholecystitis. The risks, benefits, and alternatives to robotic cholecystectomy, possible open, were discussed with Pancho's guardian Sherly, and she is agreeable to proceeding. Plan for surgery in the am. Continue antibiotics. [facility] SURGICAL HISTORY & PHYSICAL/CONSULTATION NOTE ===== SURGICAL PROBLEM Gallbladder distention Abdominal pain ASSESSMENT & PLAN/ACTIVE MEDICAL PROBLEMS: Abdominal Pain Mild GB wall thickening on US with possible stones. CT with similar findings to 2020, with some wall thickening and small amount of fluid near the fundus Begin exam on evaluation, NPO Likely HIDA scan in the AM Admit to medicine Lactic acidosis Lactate 2.3 Resuscitate, recheck Leukocytosis WBC 26.61 Continue Zosyn INCIDENTAL FINDINGS: N/A. CHIEF COMPLAINT: Abdominal pain HISTORY OF PRESENT ILLNESS / INJURY (HPI): Pancho is a 64 year old male with past medical history noted below. He presented to the ED yesterday after a fall and shoulder pain, nothing revealed in workup. Today he returns for emesis and c/o of abdominal pain. He is a poor historian given his developmental disability. His awning hanger helper concurs with the above. I examined the pt during his US and when I returned for physical exam he tells me his pain is much better and was able to point to his right abdomen as to where the pain was previously. PAST MEDICAL HISTORY (PMH): Past Medical History: Diagnosis Date Balance problem Depression Disease of thyroid gland Disorientation Fatigue Hearing loss Hyperlipidemia Lack of coordination Memory loss Seizures (HCC) Speech abnormality History reviewed. No pertinent surgical history. Social History Tobacco Use Smoking status: Never Vaping Use Vaping status: Never Used Substance Use Topics Alcohol use: Never Family History Problem Relation Age of Onset Alzheimer's disease Mother MEDICATIONS: No current facility-administered medications on file prior to encounter. Current Outpatient Medications on File Prior to Encounter Medication Sig Dispense Refill acetaminophen (TYLENOL) 325 mg/10.15 mL Soln Take 20.3 mL (650 mg total) by mouth every 4 (four) hours . atorvastatin (LIPITOR) 10 MG tablet Take 1 (one) tablet (10 mg total) by mouth daily . calcium carbonate (TUMS) 200 mg calcium (500 mg) chewable tablet Chew and Swallow 1 (one) tablet (500 mg total) 2 (two) times a day . clonazePAM (KLONOPIN) 1 MG tablet Take 1 (one) tablet (1 mg total) by mouth daily . famotidine (PEPCID) 20 MG tablet Take 1 (one) tablet (20 mg total) by mouth 2 (two) times a day . folic acid (FOLVITE) 1 MG tablet Take 1 (one) tablet (1 mg total) by mouth daily . lacosamide (VIMPAT) 200 mg Tab Take 1 (one) tablet (200 mg total) by mouth 2 (two) times a day (Days supply per fill: . levETIRAcetam (KEPPRA) 1000 MG tablet Take 2 (two) tablets (2,000 mg total) by mouth 2 (two) times a day . levothyroxine (SYNTHROID, LEVOTHROID) 100 MCG tablet Take 1 (one) tablet (100 mcg total) by mouth once daily Along with 137 mcg, total 237 daily . levothyroxine (SYNTHROID, LEVOTHROID) 137 MCG tablet Take 1 (one) tablet (137 mcg total) by mouth once daily With 100 mcg, total 237 daily . methenamine (HIPREX) 1 gram tablet Take 1 (one) tablet (1 g total) by mouth 2 (two) times a day . metoprolol succinate (TOPROL-XL) 25 MG 24 hr tablet Take 1 (one) tablet (25 mg total) by mouth daily . 90 tablet 3 PARoxetine (PAXIL) 10 MG tablet Take 1 (one) tablet (10 mg total) by mouth daily Plus 40 mg for total of 50 daily . PARoxetine (PAXIL) 40 MG tablet Take 1 (one) tablet (40 mg total) by mouth daily Plus 10 mg for total of 50 daily . PHENobarbitaL 16.2 MG tablet Take 1 (one) tablet (16.2 mg total) by mouth 2 (two) times a day Reasons: seizures. PHEN (more content not included)... Normal [facility] COVID-19/INFLUENZA A,B MOLEC Mic 10-22-2024 SARS-CoV-2 (COVID-19) Ab IA Ql SARS-COV-2 (SYLVIA) Not Detected INFLUENZA A (SYLVIA) Not Detected INFLUENZA B (SYLVIA) Not Detected Normal Not Detected [facility] Comment on above: Performed By: #### [id number] #### MH LAB [address] [place] [address] Enzo Mackey M.D. [id number] CT ABDOMEN PELVIS WITH IV CO NTRAST ONLYon 10-22-2024 CT ABDOMEN PELVIS WITH IV CONTRAST ONLY EXAMINATION: CT ABDOMEN PELVIS WITH IV CONTRAST ONLY HISTORY: ORDERING SYSTEM PROVIDED HISTORY: abd pain. n/v, TECHNOLOGIST PROVIDED HISTORY: Illness/Other Reason for exam: abd pain. n/v Encounter Type: Initial Additional signs and symptoms: - ORDERING SYSTEM PROVIDED DIAGNOSIS CODES: COMPARISON: CT abdomen and pelvis 04/19/2021. ultrasound abdomen 05/17/2021. CT abdomen pelvis 07/24/2020. TECHNIQUE: CT examination of the abdomen and pelvis following the administration of intravenous contrast. Coronal and sagittal reformations were performed. Dose reduction techniques were achieved by using automated exposure control and/or adjustment of mA and/or kV according to patient size and/or use of iterative reconstruction technique. CONTRAST: IOPAMIDOL 370 MG IODINE/ML (76 %) INTRAVENOUS SOLUTION - 75 mL, FINDINGS: The heart is normal in size. There is bibasilar pulmonary atelectasis. The liver is normal in size and contour. There is no liver mass. The spleen is normal. The pancreas is normal. The gallbladder is contracted with fundal wall thickening that extends along the lateral margin of the peritoneum with a small amount of katja-fundal fluid, a similar pattern to previous exams. There are no calcified gallstones. There is no biliary tract dilatation. There is no adrenal mass. The kidneys are normal in size. There are subcentimeter low-density lesions that are too small to accurately characterize. There is no perinephric inflammation. The urinary bladder is incompletely distended and appears slightly thick-walled. The stomach is nondistended. There is no abnormal small bowel dilatation. There has been previous right partial colectomy. There is a moderate colonic stool burden. There is no pericolonic inflammation. There is no colonic dilatation. The appendix is absent. There is no pneumoperitoneum or ascites. The abdominal aorta is patent and nondilated. There is no acute bony pathology. There are remotely healed right lower rib fractures with slight deformity. There are mild degenerative changes of the imaged spine and pelvis.. IMPRESSION: 1. No acute solid organ pathology. 2. Abnormal appearance of the gallbladder with wall thickening and a small amount of fluid near the fundus, no calcified gallstones. The appearance of the gallbladder is fairly similar to exams dating back to 2019. If there is right upper quadrant pain, ultrasound follow-up may be beneficial. 3. Prior right partial colectomy. No bowel obstruction or localized inflammation of bowel. 4. Thick-walled urinary bladder, likely incomplete distension. A mild cystitis could appear similar. Workstation ID: [id number] Dictated by: MARGY SCHULTZ on MonOct 22, 2024 8:28:52 PM EDT Transcribed by: MARGY SCHULTZ on MonOct 22, 2024 8:28:52 PM EDT Finalized by: MARGY SCHULTZ on MonOct 22, 2024 8:28:52 PM EDT Normal [facility] Comment on above: Order Comment: Injur y/Trauma or Illness?:Illness/OtherHow long have you had these symptoms (acute/chronic)?:AcuteReason for exam?:abd pain. n/vType of Exam?:InitialAdditional signs and symptoms?:- ED Prov Noteon 10-22-2024 ED Prov Note [facility] EMERGENCY DEPARTMENT ATTENDING NOTE: NAME: Pancho Mcpherson CSN: [id number] 64 y.o. PCP: Mahamed Nrei DO History: Chief Complaint: No chief complaint on file. HPI: 64-year-old male past medical history of MRDD seizures presents to the emergency department for evaluation of abdominal pain nausea and vomiting symptoms. No specific alleviating or aggravating factors. Patient denies any other associated symptoms. Patient is found to be febrile tachycardic and mildly tachypneic. Sepsis alert placed PMHx: Past Medical History: Diagnosis Date Balance problem Depression Disease of thyroid gland Disorientation Fatigue Hearing loss Hyperlipidemia Lack of coordination Memory loss Seizures (HCC) Speech abnormality PMSx: History reviewed. No pertinent surgical history. FAM. Hx: Family History Problem Relation Age of Onset Alzheimer's disease Mother SOC. Hx: Social History Socioeconomic History Marital status: Single Tobacco Use Smoking status: Never Vaping Use Vaping status: Never Used Substance and Sexual Activity Alcohol use: Never MEDs: Previous Medications Medication Sig acetaminophen (TYLENOL) 325 mg/10.15 mL Soln Take 20.3 mL (650 mg total) by mouth every 4 (four) hours . atorvastatin (LIPITOR) 10 MG tablet Take 1 (one) tablet (10 mg total) by mouth daily . calcium carbonate (TUMS) 200 mg calcium (500 mg) chewable tablet Chew and Swallow 1 (one) tablet (500 mg total) 2 (two) times a day . clonazePAM (KLONOPIN) 1 MG tablet Take 1 (one) tablet (1 mg total) by mouth daily . famotidine (PEPCID) 20 MG tablet Take 1 (one) tablet (20 mg total) by mouth 2 (two) times a day . folic acid (FOLVITE) 1 MG tablet Take 1 (one) tablet (1 mg total) by mouth daily . lacosamide (VIMPAT) 200 mg Tab Take 1 (one) tablet (200 mg total) by mouth 2 (two) times a day (Days supply per fill: . levETIRAcetam (KEPPRA) 1000 MG tablet Take 2 (two) tablets (2,000 mg total) by mouth 2 (two) times a day . levothyroxine (SYNTHROID, LEVOTHROID) 100 MCG tablet Take 1 (one) tablet (100 mcg total) by mouth once daily Along with 137 mcg, total 237 daily . levothyroxine (SYNTHROID, LEVOTHROID) 137 MCG tablet Take 1 (one) tablet (137 mcg total) by mouth once daily With 100 mcg, total 237 daily . methenamine (HIPREX) 1 gram tablet Take 1 (one) tablet (1 g total) by mouth 2 (two) times a day . metoprolol succinate (TOPROL-XL) 25 MG 24 hr tablet Take 1 (one) tablet (25 mg total) by mouth daily . PARoxetine (PAXIL) 10 MG tablet Take 1 (one) tablet (10 mg total) by mouth daily Plus 40 mg for total of 50 daily . PARoxetine (PAXIL) 40 MG tablet Take 1 (one) tablet (40 mg total) by mouth daily Plus 10 mg for total of 50 daily . PHENobarbitaL 16.2 MG tablet Take 1 (one) tablet (16.2 mg total) by mouth 2 (two) times a day Reasons: seizures. PHENobarbitaL 32.4 MG tablet Take 2 (two) tablets (64.8 mg total) by mouth nightly Reasons: seizures. phenytoin (DILANTIN) 100 MG ER capsule Take 3 (three) capsules (300 mg total) by mouth nightly . polyethylene glycol (MIRALAX) 17 gram powder Take 17 (seventeen) g by mouth daily . QUEtiapine (SEROQUEL) 200 MG tablet Take 1 (one) tablet (200 mg total) by mouth nightly Plus 50 mg for total 250 nightly . QUEtiapine (SEROQUEL) 25 MG tablet Take 1 (one) tablet (25 mg total) by mouth daily At 1 pm . QUEtiapine (SEROQUEL) 50 MG tablet Take 1 (one) tablet (50 mg total) by mouth 2 (two) times a day 50 mg in AM, Evening dose with 200 mg for total of 250 nightly . senna (SENOKOT) 8.6 mg tablet Take 1 (one) tablet (8.6 mg total) by mouth daily . tamsulosin (FLOMAX) 0.4 mg capsule Take 1 (one) capsule (0.4 mg total) by mouth daily . ALL: No Known Allergies Physical Exam: Patient Vitals for the past 24 hrs: BP Temp Temp src Pulse Resp SpO2 10/22/24 2000 (!) 156/140 -- -- 93 18 94 % 10/22/24 1830 (!) 159/136 -- -- (!) 106 (!) 34 96 % 10/22/24 1808 -- (!) 101 degrees F (38.3 degrees C) -- -- -- -- 10/22/24 1739 (!) 125/109 (!) 101 degrees F (38.3 degrees C) Oral (!) 114 (!) 27 93 % Physical Exam Vitals and nursing note reviewed. Constitutional: General: He is awake. HENT: Head: Normocephalic and atraumatic. Right Ear: External ear normal. Left Ear: External ear normal. Nose: Nose normal. Mouth/Throat: Pharynx: Oropharynx is clear. Eyes: General: Lids are normal. No scleral icterus. Extraocular Movements: Extraocular movements intact. Pupils: Pupils are equal, round, and reactive to light. Cardiovascular: Rate and Rhythm: Regular rhythm. Tachycardia present. Pulmonary: Effort: Pulmonary effort is normal. No accessory muscle usage or respiratory distress. Abdominal: Palpations: Abdomen is soft. Comments: Diffuse tenderness palpation Skin: General: Skin is warm. Neurological: Mental Status: He is alert and oriented to person, place, and time. Laboratory & (more content not included)... Normal [facility] LACTIC ACID, PLASMAon 2024 LACTIC ACID, PLASMA 2.3 mmol/L High 0.6-2.0 [facility] Comment on above: Performed By: #### L [id number] #### LAB [address] [place] [address] Enzo Mackey M.D. [id number] LIPASEon 10-22-2024 Lipase [Catalytic activity/Vol] 26 U/L Normal 15-65 [facility] Comment on above: Performed By: #### L [id number] #### LAB [address] [place] [address] Enzo Mackey M.D. [id number] MANUAL DIFFERENTIALon 2024 BASOPHILS - ABS (DIFF) 0.00 K/mcL Normal 0.00-0.30 [facility] Comment on above: Performed By: #### [id number] #### LAB [address] [place] [address] Enzo Mackey M.D. [id number] BASOPHILS - REL (DIFF) 0.0 % Normal [facility] Comment on above: Performed By: #### 4 [id number] #### LAB [address] [place] [address] Enzo Mackey M.D. [id number] EOSINOPHILS - ABS (DIFF) 0.00 K/mcL Normal 0.00-0.50 [facility] Comment on above: Performed By: #### 4 [id number] #### LAB [address] [place] [address] Enzo Mackey M.D. [id number] EOSINOPHILS - REL (DIFF) 0.0 % Normal [facility] Comment on above: Performed By: #### 4 [id number] #### LAB [address] [place] [address] Enzo Mackey M.D. [id number] LYMPHOCYTES - ABS (DIFF) 2.29 K/mcL Normal 0.90-4.00 [facility] Comment on above: Performed By: #### 4 [id number] #### LAB [address] [place] [address] Enzo Mackey M.D. [id number] LYMPHOCYTES - REL (DIFF) 8.6 % Normal [facility] Comment on above: Performed By: #### 4 [id number] #### LAB [address] [place] [address] Enzo Mackey M.D. [id number] MONOCYTES - ABS (DIFF) 2.26 K/mcL High 0.30-0.90 [facility] Comment on above: Performed By: #### 4 [id number] #### LAB [address] [place] [address] Enzo Mackey M.D. [id number] MONOCYTES - REL (DIFF) 8.5 % Normal [facility] Comment on above: Performed By: #### 4 [id number] #### LAB [address] [place] [address] Enzo Mackey M.D. [id number] NEUTROPHILS - ABS (DIFF) 22.06 K/mcL High 1.70-7.00 [facility] Comment on above: Performed By: #### 4 [id number] #### LAB [address] [place] [address] Enzo Mackey M.D. [id number] NEUTROPHILS - REL (DIFF) 82.9 % Normal [facility] Comment on above: Performed By: #### 4 [id number] #### LAB [address] [place] [address] Enzo Mackey M.D. [id number] MORPHOLOGYon 10-22-2024 PLATELET ESTIMATE Normal Normal Normal [facility] Comment on above: Performed By: #### L [id number] #### LAB [address] [place] [address] Enzo Mackey M.D. [id number] RBC MORPH SCAN See Comment Normal [facility] Comment on above: Result Comment: RBC Indices confirmed with manual peripheral smear review. Performed By: #### L [id number] #### MH LAB [address] [place], [place] [address] Enzo Mackey M.D. [id number] STOMATOCYTES Few Normal [facility] Comment on above: Performed By: #### L [id number] #### MH LAB [address] [place] [id number] Enzo Mackey M.D. [id number] POC VENOUS BLOOD GAS PANEL-P EUNICE Lira 10-22-2024 BASE EXCESS, VENOUS 4.8 High -2.0-2.0 [facility] Comment on above: Performed By: #### 4 [id number] #### MH LAB [address] [place] [address] Enzo Mackey M.D. [id number] CALCIUM IONIZED 4.5 mg/dL Normal 4.5-5.3 [facility] Comment on above: Performed By: #### 4 6109 #### MH LAB [address] [place] [address] Enzo Mackey M.D. [id number] CARBOXYHEMOGLOBIN 1.7 % of total Hb High <=1.5 [facility] Comment on above: Result Comment: Refe rence Ranges: Suburban Non-smokers: <1.5% Smokers: 1.5-5.0% Heavy Smokers: 5.0-9.0% Performed By: #### 4 6109 #### MH LAB [address] [place] [address] Enzo Mackey M.D. [id number] Chloride [Moles/Vol] 99 mmol/L Normal 98-108 [facility] Comment on above: Performed By: #### 4 6109 #### MH LAB [address] [place] [id number] Enzo Mackey M.D. [id number] Glucose [Mass/Vol] 116 mg/dL High 65-99 [facility] Comment on above: Performed By: #### 4 [id number] #### MH LAB [address] [place] [address] Enzo Mackey M.D. [id number] HCO3 (Bld) [Moles/Vol] 30.8 mmol/L High 24.0-28.0 [facility] Comment on above: Performed By: #### 4 6109 #### LAB [address] [place] [address] Enzo Mackey M.D. [id number] Hematocrit (Bld) [Volume fraction] 47.2 % Normal 41.0-53.0 [facility] Comment on above: Performed By: #### 4 6109 #### LAB [address] [place] [address] Enzo Mackey M.D. [id number] Hemoglobin (Bld) [Mass/Vol] 15.4 g/dL Normal 13.5-17.5 [facility] Comment on above: Performed By: #### 4 6109 #### LAB [address] [place] [address] Enzo Mackey M.D. [id number] LACTIC ACID, WHOLE BLOOD 2.3 mmol/L High 0.6-2.0 [facility] Comment on above: Performed By: #### 4 6109 #### LAB [address] [place] [address] Enzo Mackey M.D. [id number] METHEMOGLOBIN < Normal 0.0-2.0 [facility] Comment on above: Performed By: #### 4 6109 #### LAB [address] [place] [address] Enzo Mackey M.D. [id number] O2HB 51.4 % Normal No established reference range [facility] Comment on above: Performed By: #### 4 6109 #### LAB [address] [place] [address] Enzo Mackey M.D. [id number] Oxygen saturation in Blood 52.6 % Normal 40.0-70.0 [facility] Comment on above: Performed By: #### 4 6109 #### LAB [address] [place] [address] Enzo Mackey M.D. [id number] PCO2 VENOUS 49.4 mm Hg Normal 41.0-51.0 [facility] Comment on above: Performed By: #### 4 6109 #### LAB [address] [place] [address] Enzo Mackey M.D. [id number] PH VENOUS 7.40 Normal 7.32-7.42 [facility] Comment on above: Performed By: #### 4 6109 #### LAB [address] [place] [address] Enzo Mackey M.D. [id number] PO2 VENOUS < Normal 25-40 [facility] Comment on above: Result Comment: Caut ion: pO2 reference ranges for some specimen types are lower than the measuring range of the instrument. Performed By: #### 4 6109 #### LAB [address] [place] [address] Enzo Mackey M.D. [id number] Potassium [Moles/Vol] 3.8 mmol/L Normal 3.5-5.1 [facility] Comment on above: Performed By: #### 4 6109 #### LAB [address] [place] [address] Enzo Mackey M.D. [id number] Sodium [Moles/Vol] 140 mmol/L Normal 135-145 [facility] Comment on above: Performed By: #### 4 6109 #### LAB [address] [place] [address] Enzo Mackey M.D. [id number] SPECIMEN SOURCE RADIANCE Not specified [facility] Comment on above: Performed By: #### 4 6109 #### LAB [address] [place] [address] Enzo Mackey M.D. [id number] TROPONIN X 2 (NOW AND REPEAT IN 2 HOURS)on 10-22-2024 TROPONIN T DELTA CHANGE INTERPRETATION No biomarker evidence of cardiac injury. [facility] Comment on above: Performed By: #### L [id number] #### MH LAB [address] [place] [address] Enzo Mackey M.D. [id number] TROPONIN T DELTA DIFFERENCE 0 ng/L Normal < = -/+ 7 change [facility] Comment on above: Performed By: #### L [id number] #### MH LAB [address] [place] [address] Enzo Mackey M.D. [id number] TROPONIN T NG/L 8 ng/L Normal <=22 [facility] Comment on above: Performed By: #### L [id number] #### MH LAB [address] [place] [address] Enzo Mackey M.D. [id number] BASELINE TROPONIN T NG/L 8 ng/L Normal <=22 [facility] Comment on above: Performed By: #### 4 [id number] #### MH LAB [address] [place] [address] Enzo Mackey M.D. [id number] TROPONIN T INTERPRETATION Normal Normal [facility] Comment on above: Performed By: #### 4 [id number] #### MH LAB [address] [place] [address] Enzo Mackey M.D. [id number] URINALYSISon 10-22-2024 AMORPHOUS CRYSTALS Few Abnormal None Seen , Rare [facility] Comment on above: Order Comment: Micro scopic examination is performed on all urinalysis samples and only positive findings are reported. The test for blood on the chemical analytic portion of urinalysis may also be positive due to hemoglobinuria and myoglobinuria and if red blood cells are present they are quantified by microscopic examination. Performed By: #### L [id number] #### MH LAB [address] [place] [address] Enzo Mackey M.D. [id number] BACTERIA, URINE Rare Abnormal None Seen [facility] Comment on above: Order Comment: Micro scopic examination is performed on all urinalysis samples and only positive findings are reported. The test for blood on the chemical analytic portion of urinalysis may also be positive due to hemoglobinuria and myoglobinuria and if red blood cells are present they are quantified by microscopic examination. Performed By: #### L [id number] #### MH LAB [address] [place], [place] [address] Enzo Mackey M.D. [id number] BILIRUBIN, URINE Negative Normal Negative [facility] Comment on above: Order Comment: Micro scopic examination is performed on all urinalysis samples and only positive findings are reported. The test for blood on the chemical analytic portion of urinalysis may also be positive due to hemoglobinuria and myoglobinuria and if red blood cells are present they are quantified by microscopic examination. Performed By: #### L [id number] #### [facility] [address] [place] [id number] Enzo Mackey M.D. [id number] BLOOD, URINE Negative Normal Negative [facility] Comment on above: Order Comment: Micro scopic examination is performed on all urinalysis samples and only positive findings are reported. The test for blood on the chemical analytic portion of urinalysis may also be positive due to hemoglobinuria and myoglobinuria and if red blood cells are present they are quantified by microscopic examination. Performed By: #### L [id number] #### [facility] [address] [address] Enzo Mackey M.D. [id number] Clarity (U) Clear Normal Clear [facility] Comment on above: Order Comment: Micro scopic examination is performed on all urinalysis samples and only positive findings are reported. The test for blood on the chemical analytic portion of urinalysis may also be positive due to hemoglobinuria and myoglobinuria and if red blood cells are present they are quantified by microscopic examination. Performed By: #### L [id number] #### [facility] [address] [place], [place] [address] Enzo Mackey M.D. [id number] Color (U) Yellow Normal Colorless, Yellow [facility] Comment on above: Order Comment: Micro scopic examination is performed on all urinalysis samples and only positive findings are reported. The test for blood on the chemical analytic portion of urinalysis may also be positive due to hemoglobinuria and myoglobinuria and if red blood cells are present they are quantified by microscopic examination. Performed By: #### L [id number] #### [facility] [address] [place], [place] [address] Enzo Mackey M.D. [id number] Glucose Ql (U) Negative Normal Negative [facility] Comment on above: Order Comment: Micro scopic examination is performed on all urinalysis samples and only positive findings are reported. The test for blood on the chemical analytic portion of urinalysis may also be positive due to hemoglobinuria and myoglobinuria and if red blood cells are present they are quantified by microscopic examination. Performed By: #### L [id number] #### [facility] [address] [id number] Enzo Mackey M.D. [id number] Ketones Ql (U) Negative Normal Negative [facility] Comment on above: Order Comment: Micro scopic examination is performed on all urinalysis samples and only positive findings are reported. The test for blood on the chemical analytic portion of urinalysis may also be positive due to hemoglobinuria and myoglobinuria and if red blood cells are present they are quantified by microscopic examination. Performed By: #### L [id number] #### [facility] [address] [id number] Enzo Mackey M.D. [id number] Leukocyte esterase Test strip Ql (U) Trace Abnormal Negative [facility] Comment on above: Order Comment: Micro scopic examination is performed on all urinalysis samples and only positive findings are reported. The test for blood on the chemical analytic portion of urinalysis may also be positive due to hemoglobinuria and myoglobinuria and if red blood cells are present they are quantified by microscopic examination. Performed By: #### L [id number] #### [facility] [address] [place], [place] [address] Enzo Mackey M.D. [id number] NITRITE, URINE Negative Normal Negative [facility] Comment on above: Order Comment: Micro scopic examination is performed on all urinalysis samples and only positive findings are reported. The test for blood on the chemical analytic portion of urinalysis may also be positive due to hemoglobinuria and myoglobinuria and if red blood cells are present they are quantified by microscopic examination. Performed By: #### L [id number] #### [facility] [address] [place], [place] [address] Enzo Mackey M.D. [id number] pH (U) 8.0 [pH] High 5.0-7.0 [facility] Comment on above: Order Comment: Micro scopic examination is performed on all urinalysis samples and only positive findings are reported. The test for blood on the chemical analytic portion of urinalysis may also be positive due to hemoglobinuria and myoglobinuria and if red blood cells are present they are quantified by microscopic examination. Performed By: #### L [id number] #### [facility] [address] [id number] Enzo Mackey M.D. [id number] PROTEIN, URINE Negative Normal Negative [facility] Comment on above: Order Comment: Micro scopic examination is performed on all urinalysis samples and only positive findings are reported. The test for blood on the chemical analytic portion of urinalysis may also be positive due to hemoglobinuria and myoglobinuria and if red blood cells are present they are quantified by microscopic examination. Performed By: #### L [id number] #### [facility] [address] [id number] Enzo Mackey M.D. [id number] RBC LM.HPF (Urine sed) [#/Area] 3 /[HPF] Normal 0-3 [facility] Comment on above: Order Comment: Micro scopic examination is performed on all urinalysis samples and only positive findings are reported. The test for blood on the chemical analytic portion of urinalysis may also be positive due to hemoglobinuria and myoglobinuria and if red blood cells are present they are quantified by microscopic examination. Performed By: #### L [id number] #### [facility] [address] [id number] Enzo Mackey M.D. [id number] Specific gravity (U) [Rel density] 1.032 High 1.005-1.025 [facility] Comment on above: Order Comment: Micro scopic examination is performed on all urinalysis samples and only positive findings are reported. The test for blood on the chemical analytic portion of urinalysis may also be positive due to hemoglobinuria and myoglobinuria and if red blood cells are present they are quantified by microscopic examination. Performed By: #### L [id number] #### [facility] [address] [id number] Enzo Mackey M.D. [id number] SPERM, URINE Present Abnormal None Seen [facility] Comment on above: Order Comment: Micro scopic examination is performed on all urinalysis samples and only positive findings are reported. The test for blood on the chemical analytic portion of urinalysis may also be positive due to hemoglobinuria and myoglobinuria and if red blood cells are present they are quantified by microscopic examination. Performed By: #### L [id number] #### [facility] [address] [id number] Enoz Mackey M.D. [id number] SQUAMOUS EPITHELIAL < Normal 0-4 [facility] Comment on above: Order Comment: Micro scopic examination is performed on all urinalysis samples and only positive findings are reported. The test for blood on the chemical analytic portion of urinalysis may also be positive due to hemoglobinuria and myoglobinuria and if red blood cells are present they are quantified by microscopic examination. Performed By: #### L [id number] #### [facility] [address] [place] [address] Enzo Mackey M.D. [id number] UROBILINOGEN, URINE <2.0 Normal <2.0 [facility] Comment on above: Order Comment: Micro scopic examination is performed on all urinalysis samples and only positive findings are reported. The test for blood on the chemical analytic portion of urinalysis may also be positive due to hemoglobinuria and myoglobinuria and if red blood cells are present they are quantified by microscopic examination. Performed By: #### L [id number] #### [facility] [address] [id number] Enzo Mackey M.D. [id number] WBC LM.HPF (Urine sed) [#/Area] 17 /[HPF] High 0-5 [facility] Comment on above: Order Comment: Micro scopic examination is performed on all urinalysis samples and only positive findings are reported. The test for blood on the chemical analytic portion of urinalysis may also be positive due to hemoglobinuria and myoglobinuria and if red blood cells are present they are quantified by microscopic examination. Performed By: #### L [id number] #### [facility] [address] [place], [place] [address] Enzo Mackey M.D. [id number] US ABDOMEN LIMITED STUDYon 0 10-22-2024 US ABDOMEN LIMITED STUDY EXAMINATION: US ABDOMEN LIMITED STUDY HISTORY: ORDERING SYSTEM PROVIDED HISTORY: ruq abd pain, TECHNOLOGIST PROVIDED HISTORY: Illness/Other Reason for exam: RUQ PAIN Cancer History: n Surgery, RadiationHistory: n Encounter Type: Subsequent/Follow-up Additional signs and symptoms: NONE ORDERING SYSTEM PROVIDED DIAGNOSIS CODES: COMPARISON: CT abdomen 10/22/2024. TECHNIQUE: Right upper quadrant ultrasound. FINDINGS: Pancreas partially obscured by bowel gas. Left lobe of the liver is also obscured. Possible stones in gallbladder. Gallbladder assessment is limited. There does appear to be slight gallbladder wall thickening. Negative Hess sign. No ascites. Normal CBD diameter. 10.2 cm right kidney is unremarkable. IMPRESSION: Mild gallbladder wall thickening and possible gallstones although gallbladder visualization is limited. Pancreas and liver assessment also limited by bowel gas/body habitus. /[facility] Workstation ID: [id number] Dictated by: RANDI MARTÍNEZ on MonOct 22, 2024 9:23:41 PM EDT Transcribed by: ELFEGO GRANADOS on MonOct 22, 2024 9:28:53 PM EDT Finalized by: RANDI MARTÍNEZ on MonOct 22, 2024 9:37:04 PM EDT [facility] Comment on above: Order Comment: Injur y/Trauma or Illness?:Illness/OtherHow long have you had these symptoms (acute/chronic)?:AcuteReason for exam?:RUQ PAINHistory of cancer?:nSurgeries, chemotherapy, or radiation?:nType of Exam?:Subsequent/Follow-upCT A/P TODAYAdditional signs and symptoms?:NONE XR CHEST PA/APon 10-22-2024 XR CHEST PA/AP EXAMINATION: XR CHEST PA/AP 10/22/2024 6:20 pm HISTORY: ORDERING SYSTEM PROVIDED HISTORY: Chest Pain, TECHNOLOGIST PROVIDED HISTORY: Illness/Other Reason for exam: chest pain Cancer History: n Surgery, RadiationHistory: n Encounter Type: Initial Additional signs and symptoms: abd pain ORDERING SYSTEM PROVIDED DIAGNOSIS CODES: COMPARISON: PA chest from 05/13/2021. FINDINGS: Trachea, mediastinum, diaphragm and bony elements are intact. Heart size is mildly prominent. The lungs show chronic changes with slight bibasilar atelectasis. Postsurgical changes are noted of the lower cervical spine. There is a neural stimulator noted on the left. IMPRESSION: 1. Mild cardiomegaly. 2. Nonacute portable chest with slight bibasilar atelectasis. Workstation ID: [id number] Dictated by: CONCETTA RIVAS on MonOct 22, 2024 7:55:04 PM EDT Transcribed by: CONCETTA RIVAS on MonOct 22, 2024 7:55:04 PM EDT Finalized by: CONCETTA RIVAS on MonOct 22, 2024 7:55:04 PM EDT [facility] Comment on above: Order Comment: Injur y/Trauma or Illness?:Illness/OtherHow long have you had these symptoms (acute/chronic)?:AcuteReason for exam?:chest painHistory of cancer?:nSurgeries, chemotherapy, or radiation?:nType of Exam?:InitialAdditional signs and symptoms?:abd pain XR SHOULDER RIGHT 2+ VIEWS ( STANDARD)on 10-22-2024 XR SHOULDER RIGHT 2+ VIEWS (STANDARD) EXAMINATION: XR SHOULDER RIGHT 2+ VIEWS (STANDARD) 10/22/2024 11:22 am HISTORY: ORDERING SYSTEM PROVIDED HISTORY: acute pain of right shoulder after fall, TECHNOLOGIST PROVIDED HISTORY: Injury/Trauma Reason for exam: fall from the toilet this morning onto right arm and shoulder, pt is wheelchair bound and difficult to position due to rigid state- has generalized pain that increases when he moves or reaches/abducts his arm Cancer History: n Surgery, RadiationHistory: n Encounter Type: Initial Mechanism of injury: fall from seated position ORDERING SYSTEM PROVIDED DIAGNOSIS CODES: M25.511 Acute pain of right shoulder due to trauma G89.11 Acute pain of right shoulder due to trauma COMPARISON: X-ray right shoulder 04/16/2021 FINDINGS: There is no fracture. There is no joint dislocation. 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 Cervical spinal hardware is noted. There are several remotely healed right-sided rib fractures with visible callus. There is no abnormal soft tissue swelling at the shoulder. IMPRESSION: No acute fracture. Workstation ID: [id number] Dictated by: MARGY SCHULTZ on MonOct 22, 2024 8:33:30 PM EDT Transcribed by: MARGY SCHULTZ on MonOct 22, 2024 8:33:30 PM EDT Finalized by: MARGY SCHULTZ on MonOct 22, 2024 8:33:[address] [facility] Comment on above: Order Comment: Injur y/Trauma or Illness?:Injury/Trauma How long have you had these symptoms (acute/chronic)?:Acute Reason for exam?:fall from the toilet this morning onto right arm and shoulder, pt is wheelchair bound and difficult to position due to rigid state- has generalized pain that increases when he moves or reaches/abducts his arm History of cancer?:n Surgeries, chemotherapy, or radiation?:n Type of Exam?:Initial Mechanism of injury?:fall from seated position CBC (H/H, RBC, INDICES, WBC, PLT)on 10-11-2024 Erythrocyte distribution width (RBC) [Ratio] 13.3 % Normal 11.0-15.0 [facility] Comment on above: Performed By: #### 1 4852, 32723, 1759, 496, 03967 #### [facility] [place] [address] Membership Coordinator: Jordon Langford MD Hematocrit (Bld) [Volume fraction] 44.1 % Normal 38.5-50.0 [facility] Comment on above: Performed By: #### 1 4852, 64840, 1759, 496, 69944 #### [facility] [address], [address] [place] [address] Membership Coordinator: Jordon Langford MD Hemoglobin (Bld) [Mass/Vol] 14.7 g/dL Normal 13.2-17.1 [facility] Comment on above: Performed By: #### 1 4852, 53043, 1759, 496, 99990 #### [facility] [address], [address] [place] [address] Membership Coordinator: Jordon Langford MD MCH (RBC) [Entitic mass] 31.1 pg Normal 27.0-33.0 [facility] Comment on above: Performed By: #### 1 4852, 60491, 175, 496, 31507 #### [facility] [place] [address] Membership Coordinator: Jordon Langford MD MCHC (RBC) [Mass/Vol] 33.3 g/dL Normal 32.0-36.0 [facility] Comment on above: Result Comment: For adults, a slight decrease in the calculated MCHC value (in the range of 30 to 32 g/dL) is most likely not clinically significant; however, it should be interpreted with caution in correlation with other red cell parameters and the patient's clinical condition. Performed By: #### 1 4852, , 175, 496, 04973 #### [facility] [place] [address] Membership Coordinator: Jordon Langford MD MCV (RBC) [Entitic vol] 93.4 fL Normal 80.0-100.0 [facility] Comment on above: Performed By: #### 1 485, , 175, 496, 26883 #### [facility] [place] [address] Membership Coordinator: Jordon Langford MD Platelet mean volume (Bld) [Entitic vol] 11.4 fL Normal 7.5-12.5 [facility] Comment on above: Performed By: #### 1 4852, , 175, 496, 36302 #### [facility] [place] [address] Membership Coordinator: Jordon Langford MD Platelets (Bld) [#/Vol] 219 10*3/uL Normal 140-400 [facility] Comment on above: Performed By: #### 1 485, , 175, 496, 15967 #### [facility] [place] [address] Membership Coordinator: Jordon Langford MD RBC (Bld) [#/Vol] 4.72 10*6/uL Normal 4.20-5.80 [facility] Comment on above: Performed By: #### 1 4852, 55105, 1759, 496, 26342 #### [facility] of [place] [address] Membership Coordinator: Jordon Langford MD WBC (Bld) [#/Vol] 7.9 10*3/uL Normal 3.8-10.8 [facility] Comment on above: Performed By: #### 1 4852, 92834, 1759, 496, 27548 #### [facility] [place] [address] Membership Coordinator: Jordon Langford MD COMPREHENSIVE METABOLIC PANE L W/ANION GAPon 10-11-2024 Albumin [Mass/Vol] 4.2 g/dL Normal 3.6-5.1 [facility] Comment on above: Performed By: #### 1 4852, 77033, 1759, 496, 03025 #### [facility] [place] [address] Membership Coordinator: Jordon Langford MD ALP [Catalytic activity/Vol] 107 U/L Normal 35-144 [facility] Comment on above: Performed By: #### 1 4852, 76018, 1759, 496, 79177 #### [facility] [place] [address] Membership Coordinator: Jordon Langford MD ALT [Catalytic activity/Vol] 21 U/L Normal 9-46 [facility] Comment on above: Performed By: #### 1 4852, 66364, 1759, 496, 45179 #### [facility] [place] [address] Membership Coordinator: Jordon Langford MD AST [Catalytic activity/Vol] 16 U/L Normal 10-35 [facility] Comment on above: Performed By: #### 1 4852, 88107, 1759, 496, 46362 #### [facility] [place] [address] Membership Coordinator: Jordon Langford MD Bilirubin [Mass/Vol] 0.2 mg/dL Normal 0.2-1.2 [facility] Comment on above: Performed By: #### 1 4852, , 175, 496, 06290 #### [facility] [place] [address] Membership Coordinator: Jordon Langford MD Calcium [Mass/Vol] 9.1 mg/dL Normal 8.6-10.3 [facility] Comment on above: Performed By: #### 1 4852, , 175, 49, 96855 #### [facility] [place] [address] Membership Coordinator: Jordon Langford MD Chloride [Moles/Vol] 101 mmol/L Normal 98-110 [facility] Comment on above: Performed By: #### 1 4852, , 1758, 49, 15482 #### [facility] [place] [address] Membership Coordinator: Jordon Langford MD CO2 [Moles/Vol] 27 mmol/L Normal 20-32 [facility] Comment on above: Performed By: #### 1 4852, , 175, 496, 74795 #### [facility] [place] [address] Membership Coordinator: Jordon Langford MD Creatinine [Mass/Vol] 0.56 mg/dL Low 0.70-1.35 [facility] Comment on above: Performed By: #### 1 4852, , 175, 496, 39631 #### [facility] of [place] [address] Membership Coordinator: Jordon Langford MD ELECTROLYTE BALANCE 11 mmol/L (calc) Normal 7-17 [facility] Comment on above: Performed By: #### 1 4852, 05478, 175, 496, 06107 #### [facility] [place] [address] Membership Coordinator: Jordon Langford MD GFR/1.73 sq M.predicted among non-blacks MDRD (S/P/Bld) [Vol rate/Area] 109 mL/min/{1.73_m2} Normal > OR = 60 [facility] Comment on above: Performed By: #### 1 4852, , 175, 49, 91314 #### [facility] [place] [address] Membership Coordinator: Jordon Langford MD Glucose [Mass/Vol] 129 mg/dL High 65-99 [facility] Comment on above: Result Comment: Fasting reference interval For someone without known diabetes, a glucose value >125 mg/dL indicates that they may have diabetes and this should be confirmed with a follow-up test. Performed By: #### 1 4852, , 175, 49, 86957 #### [facility] [place] [address] Membership Coordinator: Jordon Langford MD Potassium [Moles/Vol] 4.0 mmol/L Normal 3.5-5.3 [facility] Comment on above: Performed By: #### 1 485, , 1758, 49, 19177 #### [facility] [place] [address] Membership Coordinator: Jordon Langford MD Protein [Mass/Vol] 7.4 g/dL Normal 6.1-8.1 [facility] Comment on above: Performed By: #### 1 4852, , 175, 496, 53149 #### [facility] [place] [address] Membership Coordinator: Jordon Langford MD Sodium [Moles/Vol] 139 mmol/L Normal 135-146 [facility] Comment on above: Performed By: #### 1 4852, , 1759, 496, 19482 #### [facility] [address], [address] [place] [address] Membership Coordinator: Jordon Langford MD Urea nitrogen [Mass/Vol] 10 mg/dL Normal 7-25 [facility] Comment on above: Performed By: #### 1 4852, 87645, 1759, 496, 48490 #### [facility] [address], [address] [place] [address] Membership Coordinator: Jordon Langford MD HEMOGLOBIN A1con 10-11-2024 HEMOGLOBIN A1c 5.5 % of total Hgb Normal <5.7 [facility] Comment on above: Result Comment: For the purpose of screening for the presence of diabetes: <5.7% Consistent with the absence of diabetes 5.7-6.4% Consistent with increased risk for diabetes (prediabetes) > or =6.5% Consistent with diabetes This assay result is consistent with a decreased risk of diabetes. Currently, no consensus exists regarding use of hemoglobin A1c for diagnosis of diabetes in children. According to [place] [employer] (ADA) guidelines, hemoglobin A1c <7.0% represents optimal control in non- diabetic patients. Different metrics may apply to specific patient populations. Standards of Medical Care in Diabetes(ADA). Performed By: #### 1 4852, 40673, 1759, 496, 59375 #### [facility] [place] [address] Membership Coordinator: Jordon Langford MD LIPID PANEL WITH REFLEX TO D IRECT LDLon 10-11-2024 Cholesterol [Mass/Vol] 131 mg/dL Normal <200 [facility] Comment on above: Performed By: #### 1 4852, 71406, 1759, 496, 73688 #### [facility] [place] [address] Membership Coordinator: Jordon Langford MD Cholesterol in HDL [Mass/Vol] 57 mg/dL Normal > OR = 40 [facility] Comment on above: Performed By: #### 1 4852, 95482, 1759, 496, 14886 #### [facility] [place] [address] Membership Coordinator: Jordon Langford MD Cholesterol in LDL [Mass/Vol] 50 mg/dL Normal [facility] Comment on above: Result Comment: Refe rence range: <100 Desirable range <100 mg/dL for primary prevention; <70 mg/dL for patients with CHD or diabetic patients with > or = 2 CHD risk factors. LDL-C is now calculated using the Liliana calculation, which is a validated novel method providing better accuracy than the Friedewald equation in the estimation of LDL-C. Yair MOLINA et al. FRANCOIS. 2013;310(19): 8316-8962 (http://education.[employer]/faq/MWM240) Performed By: #### 1 4852, 06579, 1759, 496, 20805 #### [facility] [place] [address] Membership Coordinator: Jordon Langford MD Cholesterol.total/Ch olesterol in HDL [Mass ratio] 2.3 {ratio} Normal <5.0 [facility] Comment on above: Performed By: #### 1 4852, 25277, 1759, 496, 25284 #### [facility] [place] [address] Membership Coordinator: Jordon Langford MD NON HDL CHOLESTEROL 74 mg/dL (calc) Normal <130 [facility] Comment on above: Result Comment: For patients with diabetes plus 1 major ASCVD risk factor, treating to a non-HDL-C goal of <100 mg/dL (LDL-C of <70 mg/dL) is considered a therapeutic option. Performed By: #### 1 4852, 10382, 1759, 496, 74045 #### [facility] [place] [address] Membership Coordinator: Jordon Langford MD Triglyceride [Mass/Vol] 154 mg/dL High <150 [facility] Comment on above: Performed By: #### 1 4852, 82104, 1759, 496, 00428 #### [facility] [address] [place] [address] Membership Coordinator: Jordon Langford MD TSH W/REFLEX TO FT4on 2024 TSH W/REFLEX TO FT4 2.43 mIU/L Normal 0.40-4.50 [facility] Comment on above: Performed By: #### 1 3722, 82859, 1759, 496, 18338 #### [facility] [address], [address] [place] [address] Membership Coordinator: Jordon Langford MD ECHOCARDIOGRAM COMPLETEon ECHOCARDIOGRAM COMPLETE Patient Info Name: PANCHO MCPHERSON Age: 64 years : 1960 Gender: Male Ht: 173 cm Wt: 77 kg BSA: 1.94 m2 HR: 78 bpm BP: 106 / 68 mmHg Heart Rhythm: Sinus Rhythm Technical Quality: Technically difficult Exam Date: 10/08/2024 9:54 AM Patient Status: Outpatient Embedded Developer: Petty Cota, CAROLYN, RVT Exam Type: ECHOCARDIOGRAM COMPLETE Study Info Indications - congestive heart failure Attending Physician: MAHAMED NERI Referring Physician: MAHAMED NERI ; [id number] BMI: 25.85 kg/m2 Summary 1. Normal chamber size. There is mild concentric left ventricular prophy. Systolic function is normal with no regional wall motion rise. Estimated ejection fraction of 55 to 60%. 2. The left ventricular diastolic function is normal. 3. Right ventricular size and systolic function are normal. 4. There is trace aortic valve regurgitation. 5. There is no pulmonary hypertension, estimated right ventricle systolic pressure is 35 mmHg. History/Risk Factors Hypertension: Yes Dyslipidemia: Yes Congestive Heart Failure (CHF): Hx CHF Tobacco Use: Never History/Risk Factors GERD, orthopnea, dyspnea, hypothyroid. Procedure(s): Complete two-dimensional, color flow and Doppler transthoracic echocardiogram is performed. Left Ventricle Normal chamber size. There is mild concentric left ventricular prophy. Systolic function is normal with no regional wall motion rise. Estimated ejection fraction of 55 to 60%. The left ventricular diastolic function is normal. Right Ventricle Right ventricular size and systolic function are normal. Left Atria Normal LV chamber size, 17 mL/m2. Right [place]ria Right atrial chamber dimension is normal. Aortic Valve The aortic valve is trileaflet. There is mild aortic valve sclerosis. There is no aortic valve stenosis. There is trace aortic valve regurgitation. Pulmonic Valve The pulmonic valve is not well visualized. There is no pulmonic valve stenosis. There is no pulmonic regurgitation. Mitral Valve The mitral valve has normal leaflets. There is no mitral valve stenosis. There is no mitral valve regurgitation. Tricuspid Valve The tricuspid valve leaflets are normal. There is no significant tricuspid valve stenosis. There is trace tricuspid valve regurgitation. There is no pulmonary hypertension, estimated right ventricle systolic pressure is 35 mmHg. Pericardium/Pleural There is no pericardial effusion. Inferior Vena Cava Not adequately visualized inferior vena cava. Aorta The aortic measurements are indexed to age and body surface area. The aortic root is normal measuring 3.1 cm with an index of 1.6 cm/m2. The proximal ascending aorta is dilated measuring 3.3 cm with an index of 1.7 cm/m2. Wall Motion Scoring Wall Motion Scoring Index: 1.00 Left Ventricular Outflow Tract - Name Value Normal - LVOT 2D - LVOT Diameter 2.0 cm LVOT Doppler - LVOT Peak Velocity 1.1 m/s LVOT Mean Gradient 2 mmHg LVOT VTI 19 cm LVOT VTI/AV VTI Ratio 0.8 LVOT Stroke Volume 58 ml LVOT Stroke Index 30.18 ml/m2 Pulmonic Valve - Name Value Normal - RVOT Doppler - RVOT Peak Velocity 63 cm/s RVOT Mean Gradient 1 mmHg RVOT VTI 11 cm PV Doppler - PV Peak Velocity 0.73 m/s PV Mean Gradient 1 mmHg PV VTI 12 cm Mitral Valve - Name Value Normal - MV Doppler - MV Peak Velocity 0.78 m/s MV Mean Gradient 1 mmHg MV VTI 23 cm MV Decel [place] 308 cm/s2 MV PHT 53 ms MV Area (PHT) 4.1 cm2 4.0-5.0 MV Area (Cont Eq VTI) 2.6 cm2 MV Area Index (Cont Eq VTI) 1.32 cm2/m2 MV DVI 1.23 MV Diastolic Function - MV E Peak Velocity 0.51 m/s MV A Peak Velocity 0.70 m/s MV E/A 0.7 MV Decel Time 184 ms MV Annular TDI - MV Septal e' Velocity 8.6 cm/s >=8.0 MV Septal a' Velocity 16.2 cm/s MV E/e' (Septal) 5.9 <=8.0 MV A/a' (Septal) 4.3 MV Lateral e' Velocity 8.1 cm/s >=9.5 MV Lateral a' Velocity 9.6 cm/s MV E/e' (Lateral) 6.3 <=8.0 MV A/a' (Lateral) (more content not included)... Normal [facility] MRI SPINE CERVICAL WITHOUT C ONTRASTon 0210-2025 MRI SPINE CERVICAL WITHOUT CONTRAST EXAM: MRI SPINE CERVICAL WITHOUT CONTRAST, 09/20/2024 10:16 AM COMPARISON: MRI of the cervical spine dated January 24, 2022. Cervical radiographs dated August 26, 2024. CLINICAL INDICATIONS: 64 years Male s/p cervical fusion, known cervical stenosis, worsening LE weakness RELEVANT CLINICAL HISTORY: Z98.1:S/P cervical spinal fusion R29.898:Weakness of both lower extremities TECHNIQUE: A series of sagittal and axial multisequence images of the cervical spine were obtained without intravenous contrast using standard protocol. FINDINGS: Alignment is within normal limits. Vertebral bodies are normal in height. Artifact from ACDF hardware at C3-C5. Scattered disc desiccation. Stable disc height loss at C5-6 and C6-7. Posterior fossa structures appear within normal limits. Stable T2 signal abnormality of the spinal cord at the C4-5 level compatible with myelomalacia. No significant prevertebral or paraspinal soft tissue abnormality is identified. By levels: C1-C2: No significant spinal stenosis. C2-C3: Tiny central disc protrusion partially effacing the thecal sac, new since 2021. Mild spinal stenosis. Uncovertebral spurring and facet arthropathy. Severe right and moderate to severe left foraminal narrowing. Degenerative changes at this level have progressed since 2021. C3-C4: ACDF. No disc herniation. Asymmetric right uncovertebral spurring which mildly deforms the ventral right thecal sac. No spinal stenosis. Severe right foraminal narrowing. Findings appear stable C4-C5: ACDF. Bony spondylotic changes noted along the dorsum of the dens. Ligamentum flavum thickening. Moderate to severe spinal stenosis. Uncovertebral spurring and facet arthropathy. Severe bilateral foraminal narrowing C5-C6: No disc herniation or spinal stenosis. Vertebral spurring and facet arthropathy resulting in moderate to severe bilateral foraminal narrowing. Findings are probably stable when compared to the prior examination (assessment of this level was degraded due to motion on the prior MRI. C6-C7: Central disc osteophyte complex abutting the ventral spinal cord. Moderate spinal stenosis. Uncovertebral spurring. Moderate bilateral foraminal narrowing. Findings appear stable. C7-T1: Tiny central disc protrusion partially effacing the thecal sac. No spinal stenosis. Asymmetric right facet arthropathy. No foraminal narrowing. IMPRESSION: Stable myelomalacia at the C4-5 level. Status post ACDF at C3-C5. Multilevel degenerative changes as discussed in detail above. Degenerative changes at C2-3 have mildly progressed since 2021. Degenerative changes at the remaining levels appear grossly stable. Significant multilevel cervical foraminal narrowing. Moderate to severe spinal stenosis at C4-5. Moderate spinal stenosis at C6-7. Normal [facility] XR Cervical spine 4 Viewson 08-26-2024 IMPRESSION: Intact C3-C5 ACDF hardware without instability. Multilevel degenerative disc disease. OLOGY EXAM: XR SPINE CERVI NILS 4-5 VIEWS, 08/26/2024 11:37 AM COMPARISON: Cervical spine radiographs 09/04/2023 CLINICAL INDICATIONS: s/p cervical fusion RELEVANT CLINICAL HISTORY: Z98.1:S/P cervical spinal fusion A/P, lateral, flex/extension; FINDINGS: 5 images obtained. Cervical Vertebral: Seven cervical vertebral bodies identified in unchanged alignment with intact C3-C5 ACDF hardware. No instability is seen on flexion or extension views. Disc: Multilevel degenerative disc disease is present. Stable C3-C5 interbody cage spacers. Joint: Facet joints appear anatomically aligned. Soft Tissue: Prevertebral soft tissues are unremarkable. RADIOLOGY Concetta Alcantara MD - 08/26/2024 EXAM: XR SPINE CERVICAL 4-5 VIEWS, 08/26/2024 11:37 AM COMPARISON: Cervical spine radiographs 09/04/2023 CLINICAL INDICATIONS: s/p cervical fusion RELEVANT CLINICAL HISTORY: Z98.1:S/P cervical spinal fusion A/P, lateral, flex/extension; FINDINGS: 5 images obtained. Cervical Vertebral: Seven cervical vertebral bodies identified in unchanged alignment with intact C3-C5 ACDF hardware. No instability is seen on flexion or extension views. Disc: Multilevel degenerative disc disease is present. Stable C3-C5 interbody cage spacers. Joint: Facet joints appear anatomically aligned. Soft Tissue: Prevertebral soft tissues are unremarkable. IMPRESSION IMPRESSION: Intact C3-C5 ACDF hardware without instability. Multilevel degenerative disc disease. [facility] Radiology Study observation (narrative) [facility] XR Cervical spine 4 ViewsOrd ered By: Concetta Alcantara on 08-26-2024 [facility] Work Phone: XR SPINE CERVICAL 4-5 VIEWSo n 08-26-2024 XR SPINE CERVICAL 4-5 VIEWS EXAM: XR SPINE CERVICAL 4-5 VIEWS, 08/26/2024 11:37 AM COMPARISON: Cervical spine radiographs 09/04/2023 CLINICAL INDICATIONS: s/p cervical fusion RELEVANT CLINICAL HISTORY: Z98.1:S/P cervical spinal fusion A/P, lateral, flex/extension; FINDINGS: 5 images obtained. Cervical Vertebral: Seven cervical vertebral bodies identified in unchanged alignment with intact C3-C5 ACDF hardware. No instability is seen on flexion or extension views. Disc: Multilevel degenerative disc disease is present. Stable C3-C5 interbody cage spacers. Joint: Facet joints appear anatomically aligned. Soft Tissue: Prevertebral soft tissues are unremarkable. IMPRESSION: Intact C3-C5 ACDF hardware without instability. Multilevel degenerative disc disease. Normal [facility] Light Blue Topon 05-15-2024 Extra Tube Hold for add-ons. [facility] Comment on above: Auto resulted. [facility] No Panel Informationon 05-15 Interpretation and review of laboratory results Abnormal [facility] Urinalysis complete panel (U )on 05-15-2024 Appearance (U) Clear Clear [facility] Bilirubin (U) [Mass/Vol] Negative NEGATIVE [facility] Color (U) Colorless Abnormal Light-Yellow, Yellow, Dark-Yellow [facility] Glucose Auto test strip (U) [Mass/Vol] Normal Normal mg/dL [facility] Ketones (U) [Mass/Vol] Negative NEGATIVE mg/dL [facility] Leukocyte esterase Auto test strip Ql (U) 25 Rajani/ L Abnormal NEGATIVE [facility] Nitrite Auto test strip Ql (U) Negative NEGATIVE [facility] pH (U) 6.0 [pH] 5.0, 5.5, 6.0, 6.5, 7.0, 7.5, 8.0 [facility] Protein (U) [Mass/Vol] Negative NEGATIVE, 10 (TRACE), 20 (TRACE) mg/dL [facility] RBC (U) [#/Vol] Negative NEGATIVE [facility] Specific gravity (U) [Rel density] 1.008 1.005 - 1.035 [facility] Urobilinogen (U) [Mass/Vol] Normal Normal mg/dL [facility] Appearance (U) Clear Normal Clear [facility] Comment on above: Performed By: #### 2 4356-8 #### JOE TRUJILLO ([id number]) [facility] ([facility]) [address] [place] [address] Bilirubin (U) [Mass/Vol] Negative Normal NEGATIVE [facility] Comment on above: Performed By: #### 2 4356-8 #### JOE TRUJILLO ([id number]) [facility] ([facility]) [address] [place] [address] Color (U) Colorless Normal Light-Yellow, Yellow, Dark-Yellow [facility] Comment on above: Performed By: #### 2 4356-8 #### JOE TRUJILLO ([id number]) [facility] ([facility]) [address] [place] [address] Glucose Auto test strip (U) [Mass/Vol] Normal Normal Normal [facility] Comment on above: Performed By: #### 2 4356-8 #### JOE TRUJILLO ([id number]) [facility] ([facility]) [address] [place] [address] Ketones (U) [Mass/Vol] Negative Normal NEGATIVE [facility] Comment on above: Performed By: #### 2 4356-8 #### JOE TRUJILLO ([id number]) [facility] ([facility]) [address] [place] [address] Leukocyte esterase Auto test strip Ql (U) 25 Rajani/???L Abnormal NEGATIVE [facility] Comment on above: Performed By: #### 2 4356-8 #### JOE TRUJILLO ([id number]) [facility] ([facility]) [address] [place] [address]2009 Nitrite Auto test strip Ql (U) Negative Normal NEGATIVE [facility] Comment on above: Performed By: #### 2 4356-8 #### JOE TRUJILLO ([id number]) [facility] ([facility]) [address] [place] [address] 20774 pH (U) 6.0 [pH] Normal 5.0, 5.5, 6.0, 6.5, 7.0, 7.5, 8.0 [facility] Comment on above: Performed By: #### 2 4356-8 #### JOE TRUJILLO ([id number]) [facility] ([facility]) [address] [place] [address] 28477 Protein (U) [Mass/Vol] Negative Normal NEGATIVE, 10 (TRACE), 20 (TRACE) [facility] Comment on above: Performed By: #### 2 4356-8 #### JOE TRUJILLO ([id number]) [facility] ([facility]) [address] [place] [address] 35938 RBC (U) [#/Vol] Negative Normal NEGATIVE [facility] Comment on above: Performed By: #### 2 4356-8 #### JOE TRUJILLO ([id number]) [facility] ([facility]) [address] [place] [address] 95799 Specific gravity (U) [Rel density] 1.008 Normal 1.005-1.035 [facility] Comment on above: Performed By: #### 2 4356-8 #### JOE TRUJILLO ([id number]) [facility] ([facility]) [address] [place] [address] 86713 Urobilinogen (U) [Mass/Vol] Normal Normal Normal [facility] Comment on above: Performed By: #### 2 4356-8 #### JOE TRUJILLO ([id number]) [facility] ([facility]) [address] [place] [address] 01121 Urinalysis microscopic panel Auto Ql (U)on 05-15-2024 RBC Auto (Urine sed) [#/Area] NONE NONE, 1-2, 3-5 /HPF [facility] WBC Auto (Urine sed) [#/Area] NONE 1-5, NONE /HPF [facility] Yeast.budding Computer assisted (U) [#/Area] PRESENT Abnormal NONE /HPF [facility] RBC Auto (Urine sed) [#/Area] NONE Normal NONE, 1-2, 3-5 [facility] Comment on above: Performed By: #### 5 3315-8 #### JOE TRUJILLO ([id number]) [facility] ([facility]) [address] [place] [address] WBC Auto (Urine sed) [#/Area] NONE Normal 1-5, NONE [facility] Comment on above: Performed By: #### 5 3315-8 #### JOE TRUJILLO ([id number]) [facility] ([facility]) [address] [place] [address] Yeast.budding Computer assisted (U) [#/Area] PRESENT Abnormal NONE [facility] Comment on above: Performed By: #### 5 3315-8 #### JOE TRUJILLO ([id number]) [facility] ([facility]) [address] [place] [address] XR CHEST 1 VIEWon 05-15-2024 XR CHEST 1 VIEW Interpreted By: Yan Lane, STUDY: XR CHEST 1 VIEW; 05/15/2024 1:04 am INDICATION: Signs/Symptoms:Cough. COMPARISON: None. ACCESSION NUMBER(S): [id number] ORDERING CLINICIAN: GINETTE TORRES FINDINGS: There is cardiomegaly. Degenerative device projects in the left upper thorax. No focal airspace consolidation or pleural effusion. No definite pneumothorax. Multiple chronic rib fractures. IMPRESSION: No focal airspace consolidation or pleural effusion. MACRO: None Signed by: Yan Lane 05/15/2024 1:22 AM Dictation workstation: [id number] Normal [facility] XR Chest Single viewon 05-15 No focal airspace consolidation or pleural effusion. MACRO: None Signed by: Yan Lane 05/15/2024 1:22 AM Dictation workstation: [id number] [facility] Interpreted By: Yan Lane, STUDY: XR CHEST 1 VIEW; 05/15/2024 1:04 am INDICATION: Signs/Symptoms:Cough. COMPARISON: None. ACCESSION NUMBER(S): [id number] ORDERING CLINICIAN: GINETTE TORRES FINDINGS: There is cardiomegaly. Degenerative device projects in the left upper thorax. No focal airspace consolidation or pleural effusion. No definite pneumothorax. Multiple chronic rib fractures. [facility] Yan Lane MD - 05/15/2024 Interpreted By: Yan Lane, STUDY: XR CHEST 1 VIEW; 05/15/2024 1:04 am INDICATION: Signs/Symptoms:Cough. COMPARISON: None. ACCESSION NUMBER(S): [id number] ORDERING CLINICIAN: GINETTE TORRES FINDINGS: There is cardiomegaly. Degenerative device projects in the left upper thorax. No focal airspace consolidation or pleural effusion. No definite pneumothorax. Multiple chronic rib fractures. IMPRESSION: No focal airspace consolidation or pleural effusion. MACRO: None Signed by: Yan Lane 05/15/2024 1:22 AM Dictation workstation: [id number] [facility] Work Phone: Radiology Study observation (narrative) [facility] Work Phone: XR Chest Single viewOrdered By: Yan Lane on 05-15-2024 [facility] Work Phone: CBC W Auto Differential pane l (Bld)on 05-14-2024 Basophils (Bld) [#/Vol] 0.02 10*3/uL [facility] Basophils/100 WBC (Bld) 0.3 % 0.0 - 2.0 % [facility] Eosinophils (Bld) [#/Vol] 0.21 10*3/uL [facility] Eosinophils/100 WBC (Bld) 2.7 % 0.0 - 6.0 % [facility] Erythrocyte distribution width (RBC) [Ratio] 13.0 % 11.5 - 14.5 % [facility] Hematocrit (Bld) [Volume fraction] 41.1 % 41.0 - 52.0 % [facility] Hemoglobin (Bld) [Mass/Vol] 13.7 g/dL 13.5 - 17.5 g/dL [facility] Immature granulocytes (Bld) [#/Vol] 0.02 10*3/uL [facility] Immature granulocytes/100 WBC (Bld) 0.3 % 0.0 - 0.9 % [facility] Comment on above: Immature Granulocyte Count (IG) includes promyelocytes, myelocytes and metamyelocytes but does not include bands. Percent differential counts (%) should be interpreted in the context of the absolute cell counts (cells/UL). Interpretation and review of laboratory results Abnormal [facility] Lymphocytes (Bld) [#/Vol] 1.43 10*3/uL [facility] Lymphocytes/100 WBC (Bld) 18.3 % 13.0 - 44.0 % [facility] MCH (RBC) [Entitic mass] 31.5 pg 26.0 - 34.[address] [facility] MCHC (RBC) [Mass/Vol] 33.3 g/dL 32.0 - 36.0 g/dL [facility] MCV (RBC) [Entitic vol] 95 fL 80 - [address] [facility] Monocytes (Bld) [#/Vol] 1.15 10*3/uL High [facility] Monocytes/100 WBC (Bld) 14.7 % 2.0 - 10.0 % [facility] Neutrophils (Bld) [#/Vol] 4.98 10*3/uL [facility] Comment on above: Percent differential counts (%) should be interpreted in the context of the absolute cell counts (cells/uL). Neutrophils/100 WBC (Bld) 63.7 % 40.0 - 80.0 % [facility] Nucleated RBC/100 WBC (Bld) [Ratio] 0.0 % [facility] Platelets (Bld) [#/Vol] 180 10*3/uL [facility] RBC (Bld) [#/Vol] 4.35 10*6/uL Low [facility] WBC (Bld) [#/Vol] 7.8 10*3/uL [facility] Basophils (Bld) [#/Vol] 0.02 x10*3/uL Normal 0.00-0.10 [facility] Comment on above: Performed By: #### 5 7021-8 #### JOE TRUJILLO ([id number]) [facility] ([facility]) [address] [place] [address] 03634 Basophils/100 WBC (Bld) 0.3 % Normal 0.0-2.0 [facility] Comment on above: Performed By: #### 7021-8 #### JOE TRUJILLO ([id number]) [facility] ([facility]) [address] [place] [address] 66367 Eosinophils (Bld) [#/Vol] 0.21 x10*3/uL Normal 0.00-0.70 [facility] Comment on above: Performed By: #### 5 7021-8 #### JOE TRUJILLO ([id number]) [facility] ([facility]) [address] [place] [address] 41111 Eosinophils/100 WBC (Bld) 2.7 % Normal 0.0-6.0 [facility] Comment on above: Performed By: #### 7021-8 #### JOE TRUJILLO ([id number]) [facility] ([facility]) [address] [place] [address] 82659 Erythrocyte distribution width (RBC) [Ratio] 13.0 % Normal 11.5-14.5 [facility] Comment on above: Performed By: #### 5 7021-8 #### JOE TRUJILLO ([id number]) [facility] ([facility]) [address] [place] [address] 09471 Hematocrit (Bld) [Volume fraction] 41.1 % Normal 41.0-52.0 [facility] Comment on above: Performed By: #### 7021-8 #### JOE TRUJILLO ([id number]) [facility] ([facility]) [address] [place] [address] 46771 Hemoglobin (Bld) [Mass/Vol] 13.7 g/dL Normal 13.5-17.5 [facility] Comment on above: Performed By: #### 7021-8 #### JOE TRUJILLO ([id number]) [facility] ([facility]) [address] [place] [address] 81586 Immature granulocytes (Bld) [#/Vol] 0.02 x10*3/uL Normal 0.00-0.70 [facility] Comment on above: Performed By: #### 5 7021-8 #### JOE TRUJILLO ([id number]) [facility] ([facility]) [address] [place] [address] 13400 Immature granulocytes/100 WBC (Bld) 0.3 % Normal 0.0-0.9 [facility] Comment on above: Result Comment: Elsa ture Granulocyte Count (IG) includes promyelocytes, myelocytes and metamyelocytes but does not include bands. Percent differential counts (%) should be interpreted in the context of the absolute cell counts (cells/UL). Performed By: #### 5 7021-8 #### JOE TRUJILLO ([id number]) [facility] ([facility]) [address] [place] [address] 16258 Lymphocytes (Bld) [#/Vol] 1.43 x10*3/uL Normal 1.20-4.80 [facility] Comment on above: Performed By: #### 5 7021-8 #### JOE TRUJILLO ([id number]) [facility] ([facility]) [address] [place] [address] 00901 Lymphocytes/100 WBC (Bld) 18.3 % Normal 13.0-44.0 [facility] Comment on above: Performed By: #### 5 7021-8 #### JOE TRUJILLO ([id number]) [facility] ([facility]) [address] [place] [address] 15674 MCH (RBC) [Entitic mass] 31.5 pg Normal 26.0-34.0 [facility] Comment on above: Performed By: #### 5 7021-8 #### JOE TRUJILLO ([id number]) [facility] ([facility]) [address] [place] [address] 89595 MCHC (RBC) [Mass/Vol] 33.3 g/dL Normal 32.0-36.0 [facility] Comment on above: Performed By: #### 5 7021-8 #### JOE TRUJILLO ([id number]) [facility] ([facility]) [address] [place] [address] 07136 MCV (RBC) [Entitic vol] 95 fL Normal 80-100 [facility] Comment on above: Performed By: #### 5 7021-8 #### JOE TRUJILLO ([id number]) [facility] ([facility]) [address] [place] [address] 45619 Monocytes (Bld) [#/Vol] 1.15 x10*3/uL High 0.10-1.00 [facility] Comment on above: Performed By: #### 5 7021-8 #### JOE TRUJILLO ([id number]) [facility] ([facility]) [address] [place] [address] 23059 Monocytes/100 WBC (Bld) 14.7 % Normal 2.0-10.0 [facility] Comment on above: Performed By: #### 5 7021-8 #### JOE TRUJILLO ([id number]) [facility] ([facility]) [address] [place] [address] 22341 Neutrophils (Bld) [#/Vol] 4.98 x10*3/uL Normal 1.20-7.70 [facility] Comment on above: Result Comment: Perc ent differential counts (%) should be interpreted in the context of the absolute cell counts (cells/uL). Performed By: #### 5 7021-8 #### JOE TRUJILLO ([id number]) [facility] ([facility]) [address] [place] [address] 61080 Neutrophils/100 WBC (Bld) 63.7 % Normal 40.0-80.0 [facility] Comment on above: Performed By: #### 5 7021-8 #### JOE TRUJILLO ([id number]) [facility] ([facility]) [address] [place] [address] 68262 Nucleated RBC/100 WBC (Bld) [Ratio] 0.0 /100 WBCs Normal 0.0-0.0 [facility] Comment on above: Performed By: #### 5 7021-8 #### JOE TRUJILLO ([id number]) [facility] ([facility]) [facility] [place] [address] Platelets (Bld) [#/Vol] 180 x10*3/uL Normal 150-450 [facility] Comment on above: Performed By: #### 5 7021-8 #### JOE TRUJILLO ([id number]) [facility] ([facility]) [address] [place] [address] RBC (Bld) [#/Vol] 4.35 x10*6/uL Low 4.50-5.90 [facility] Comment on above: Performed By: #### 5 7021-8 #### JOE TRUJILLO ([id number]) [facility] ([facility]) [address] [place] [address] WBC (Bld) [#/Vol] 7.8 x10*3/uL Normal 4.4-11.3 [facility] Comment on above: Performed By: #### 5 7021-8 #### JOE TRUJILLO ([id number]) [facility] ([facility]) [address] [place] [address] Comprehensive metabolic 2000 panelon 05-14-2024 Albumin BCP dye [Mass/Vol] 3.7 g/dL 3.4 - 5.0 g/dL [facility] ALP [Catalytic activity/Vol] 105 U/L 33 - 136 U/L [facility] ALT With P-5'-P [Catalytic activity/Vol] 23 U/L 10 - 52 U/L [facility] Comment on above: Patients treated wit h Sulfasalazine may generate falsely decreased results for ALT. Anion gap [Moles/Vol] 9 mmol/L Low 10 - 20 mmol/L [facility] AST With P-5'-P [Catalytic activity/Vol] 15 U/L 9 - 39 U/L [facility] Bilirubin [Mass/Vol] 0.2 mg/dL 0.0 - 1 .2 mg/dL [facility] Calcium [Mass/Vol] 8.9 mg/dL 8.6 - 10. 3 mg/dL [facility] Chloride [Moles/Vol] 101 mmol/L 98 - 10 7 mmol/L [facility] CO2 [Moles/Vol] 32 mmol/L 21 - 32 mmol/L [facility] Creatinine [Mass/Vol] 0.60 mg/dL 0.50 - 1.30 mg/dL [facility] eGFR - PINF [facility] Comment on above: Calculations of rohan mated GFR are performed using the 2020 CKD-EPI Study Refit equation without the race variable for the IDMS-Traceable creatinine methods. https://jasn.asnjournals.org/content/early//ASN.8915548 988 Glucose [Mass/Vol] 108 mg/dL High 74 - 99 mg/dL [facility] Potassium [Moles/Vol] 3.6 mmol/L 3.5 - 5.3 mmol/L [facility] Protein [Mass/Vol] 6.6 g/dL 6.4 - 8.2 g/dL [facility] Sodium [Moles/Vol] 138 mmol/L 136 - 145 mmol/L [facility] Urea nitrogen [Mass/Vol] 11 mg/dL 6 - 23 mg/dL [facility] Albumin BCP dye [Mass/Vol] 3.7 g/dL Normal 3.4-5.0 [facility] Comment on above: Performed By: #### 2 4323-8 #### JOE TRUJILLO ([id number]) [facility] ([facility]) [facility] [place] [address] ALP [Catalytic activity/Vol] 105 U/L Normal 33-136 [facility] Comment on above: Performed By: #### 2 4323-8 #### JOE TRUJILLO ([id number]) [facility] ([facility]) [facility] [place] [address] ALT With P-5'-P [Catalytic activity/Vol] 23 U/L Normal 10-52 [facility] Comment on above: Result Comment: Casadnra ents treated with Sulfasalazine may generate falsely decreased results for ALT. Performed By: #### 2 4323-8 #### JOE TRUJILLO ([id number]) [facility] ([facility]) [address] [place] [address] Anion gap [Moles/Vol] 9 mmol/L Low 10-20 [facility] Comment on above: Performed By: #### 2 432-8 #### JOE TRUJILLO ([id number]) [facility] ([facility]) [address] [place] [address] AST With P-5'-P [Catalytic activity/Vol] 15 U/L Normal 9-39 [facility] Comment on above: Performed By: #### 2 4322-8 #### JOE TRUJILLO ([id number]) [facility] ([facility]) [address] [place] [address] Bilirubin [Mass/Vol] 0.2 mg/dL Normal 0.0-1.2 [facility] Comment on above: Performed By: #### 2 4322-8 #### JOE TRUJILLO ([id number]) [facility] ([facility]) [address] [place] [address] Calcium [Mass/Vol] 8.9 mg/dL Normal 8.6-10.3 [facility] Comment on above: Performed By: #### 2 4322-8 #### JOE TRUJILLO ([id number]) [facility] ([facility]) [address] [place] [address] Chloride [Moles/Vol] 101 mmol/L Normal 98-107 [facility] Comment on above: Performed By: #### 2 4322-8 #### JOE TRUJILLO ([id number]) [facility] ([facility]) [address] [place] [address] CO2 [Moles/Vol] 32 mmol/L Normal 21-32 [facility] Comment on above: Performed By: #### 2 432-8 #### JOE TRUJILLO ([id number]) [facility] ([facility]) [address] [place] [address] Creatinine [Mass/Vol] 0.60 mg/dL Normal 0.50-1.30 [facility] Comment on above: Performed By: #### 2 4323-8 #### JOE TRUJILLO ([id number]) [facility] ([facility]) [address] [place] [address]73 GFR/1.73 sq M.predicted MDRD (S/P/Bld) [Vol rate/Area] mL/min/{1.73_m2} Normal >60 [facility] Comment on above: Result Comment: Calc ulations of estimated GFR are performed using the 2020 CKD-EPI Study Refit equation without the race variable for the IDMS-Traceable creatinine methods. https://jasn.asnjournals.org/content//ASN.2102782 988 Performed By: #### 2 432-8 #### JOE TRUJILLO ([id number]) [facility] ([facility]) [address] [place] [address]87[address] Glucose [Mass/Vol] 108 mg/dL High 74-99 [facility] Comment on above: Performed By: #### 2 4323-8 #### JOE TRUJILLO ([id number]) [facility] ([facility]) [address] [place] [address] Potassium [Moles/Vol] 3.6 mmol/L Normal 3.5-5.3 [facility] Comment on above: Performed By: #### 2 4323-8 #### JOE TRUJILLO ([id number]) [facility] ([facility]) [address] [place] [address] Protein [Mass/Vol] 6.6 g/dL Normal 6.4-8.2 [facility] Comment on above: Performed By: #### 2 4323-8 #### JOE TRUJILLO ([id number]) [facility] ([facility]) [address] [place] [address] 51362 Sodium [Moles/Vol] 138 mmol/L Normal 136-145 [facility] Comment on above: Performed By: #### 2 4323-8 #### JOE TRUJILLO ([id number]) [facility] ([facility]) [address] [place] [address], [place] [address] Urea nitrogen [Mass/Vol] 11 mg/dL Normal 6-23 [facility] Comment on above: Performed By: #### 2 4323-8 #### JOE TRUJILLO ([id number]) [facility] ([facility]) [facility] [place] [address] Lacosamideon 05-14-2024 Lacosamide [Mass/Vol] 8.4 ug/mL Normal 1.0-10.0 [facility] Comment on above: Result Comment: INTE RPRETIVE INFORMATION: Lacosamide, Serum or Plasma Therapeutic Range: 1.0 - 10.0 ug/mL Toxic: Greater than or equal to 20 ug/mL Lacosamide is an anticonvulsant drug indicated for adjunctive therapy for partial-onset seizures. The therapeutic range is based on serum, predose (trough) draw collection at steady-state concentration. Adverse effects may include dizziness, fatigue, nausea, vomiting, blurred vision, and tremor. This test was developed and its performance characteristics determined by [facility]. It has not been cleared or approved by the [place] Food and Drug Administration. This test was performed in a CLIA-certified laboratory and is intended for clinical purposes. Performed By: [facility] [address] [place] [address] Emissions Engineer: Enzo Stiles MD, PhD CLIA Number: [id number] Performed By: #### 5 9297-2 #### [facility] ([id number]) [address] [place], [place] [id number] Magnesiumon 05-14-2024 Magnesium [Mass/Vol] 1.92 mg/dL 1.60 - 2.40 mg/dL [facility] Magnesium [Mass/Vol] 1.92 mg/dL Normal 1.60-2.40 [facility] Comment on above: Performed By: #### 1 9123-9 #### JOE TRUJILLO ([id number]) [facility] ([facility]) [address] [place] [address] 23831 Magnesium [Mass/Vol]on 05-14 Interpretation and review of laboratory results Normal [facility] No Panel Informationon 05-14 Interpretation and review of laboratory results Abnormal [facility] Phenytoinon 05-14-2024 Phenytoin [Mass/Vol] 7.4 ug/mL Low 10.0 - 20.0 ug/mL [facility] Phenytoin [Mass/Vol] 7.4 ug/mL Low 10.0-20.0 [facility] Comment on above: Performed By: #### 3 968-5 #### JOE TRUJILLO ([id number]) [facility] ([facility]) [address] [place] [address] 21910 levETIRAcetamon 05-14-2024 levETIRAcetam [Mass/Vol] 63 ug/mL High 10-40 [facility] Comment on above: Order Comment: Briva racetam may falsely increase the amount of Levetiracetam measured by this method. Serum levels should be confirmed by a valid chromatographic method for patients with these drugs co-present in circulation. Performed By: #### 3 0471-7 #### CHANTE Estrella ([id number]) [facility] ([facility]) [id number] [place] [address] CBC W Auto Differential pane l (Bld)on 02-28-2024 Basophils (Bld) [#/Vol] 0.02 x10*3/uL Normal 0.00-0.10 [facility] Comment on above: Performed By: #### 5 7021-8 #### JOE TRUJILLO ([id number]) [facility] ([facility]) [address] [place] [address] 34467 Basophils/100 WBC (Bld) 0.3 % Normal 0.0-2.0 [facility] Comment on above: Performed By: #### 5 7021-8 #### JOE TRUJILLO ([id number]) [facility] ([facility]) [address] [place] [address] 00447 Eosinophils (Bld) [#/Vol] 0.16 x10*3/uL Normal 0.00-0.70 [facility] Comment on above: Performed By: #### 5 7021-8 #### JOE TRUJILLO ([id number]) [facility] ([facility]) [address] [place] [address] 44209 Eosinophils/100 WBC (Bld) 2.2 % Normal 0.0-6.0 [facility] Comment on above: Performed By: #### 5 7021-8 #### JOE TRUJILLO ([id number]) [facility] ([facility]) [address] [place] [address] 44348 Erythrocyte distribution width (RBC) [Ratio] 13.3 % Normal 11.5-14.5 [facility] Comment on above: Performed By: #### 5 7021-8 #### JOE TRUJILLO ([id number]) [facility] ([facility]) [address] [place] [address] 15155 Hematocrit (Bld) [Volume fraction] 44.7 % Normal 41.0-52.0 [facility] Comment on above: Performed By: #### 5 7021-8 #### JOE TRUJILLO ([id number]) [facility] ([facility]) [address] [place] [address] 77011 Hemoglobin (Bld) [Mass/Vol] 14.6 g/dL Normal 13.5-17.5 [facility] Comment on above: Performed By: #### 5 7021-8 #### JOE TRUJILLO ([id number]) [facility] ([facility]) [address] [place] [address] 00092 Immature granulocytes (Bld) [#/Vol] 0.03 x10*3/uL Normal 0.00-0.70 [facility] Comment on above: Performed By: #### 5 7021-8 #### JOE TRUJILLO ([id number]) [facility] ([facility]) [address] [place] [address] 42013 Immature granulocytes/100 WBC (Bld) 0.4 % Normal 0.0-0.9 [facility] Comment on above: Result Comment: Elsa ture Granulocyte Count (IG) includes promyelocytes, myelocytes and metamyelocytes but does not include bands. Percent differential counts (%) should be interpreted in the context of the absolute cell counts (cells/UL). Performed By: #### 5 7021-8 #### JOE TRUJILLO ([id number]) [facility] ([facility]) [address] [place] [address] 50670 Lymphocytes (Bld) [#/Vol] 1.74 x10*3/uL Normal 1.20-4.80 [facility] Comment on above: Performed By: #### 5 7021-8 #### JOE TRUJILLO ([id number]) [facility] ([facility]) [address] [place] [address] 73941 Lymphocytes/100 WBC (Bld) 24.1 % Normal 13.0-44.0 [facility] Comment on above: Performed By: #### 5 7021-8 #### JOE TRUJILLO ([id number]) [facility] ([facility]) [address] [place] [address] 83787 MCH (RBC) [Entitic mass] 31.4 pg Normal 26.0-34.0 [facility] Comment on above: Performed By: #### 5 7021-8 #### JOE TRUJILLO ([id number]) [facility] ([facility]) [address] [place] [address] 64207 MCHC (RBC) [Mass/Vol] 32.7 g/dL Normal 32.0-36.0 [facility] Comment on above: Performed By: #### 5 7021-8 #### JOE TRUJILLO ([id number]) [facility] ([facility]) [address] [place] [address] 33745 MCV (RBC) [Entitic vol] 96 fL Normal 80-100 [facility] Comment on above: Performed By: #### 5 7021-8 #### JOE TRUJILLO ([id number]) [facility] ([facility]) [address] [place] [address] 99607 Monocytes (Bld) [#/Vol] 0.76 x10*3/uL Normal 0.10-1.00 [facility] Comment on above: Performed By: #### 5 7021-8 #### JOE TRUJILLO ([id number]) [facility] ([facility]) [address] [place] [address] 52455 Monocytes/100 WBC (Bld) 10.5 % Normal 2.0-10.0 [facility] Comment on above: Performed By: #### 5 7021-8 #### JOE TRUJILLO ([id number]) [facility] ([facility]) [address] [place] [address] 42063 Neutrophils (Bld) [#/Vol] 4.51 x10*3/uL Normal 1.20-7.70 [facility] Comment on above: Result Comment: Perc ent differential counts (%) should be interpreted in the context of the absolute cell counts (cells/uL). Performed By: #### 5 7021-8 #### JOE TRUJILLO ([id number]) [facility] ([facility]) [address] [place] [address] 81477 Neutrophils/100 WBC (Bld) 62.5 % Normal 40.0-80.0 [facility] Comment on above: Performed By: #### 5 7021-8 #### JOE TRUJILLO ([id number]) [facility] ([facility]) [address] [place] [address] 41556 Nucleated RBC/100 WBC (Bld) [Ratio] 0.0 /100 WBCs Normal 0.0-0.0 [facility] Comment on above: Performed By: #### 5 7021-8 #### JOE TRUJILLO ([id number]) [facility] ([facility]) [address] [place] [address] 03273 Platelets (Bld) [#/Vol] 199 x10*3/uL Normal 150-450 [facility] Comment on above: Performed By: #### 5 7021-8 #### JOE TRUJILLO ([id number]) [facility] ([facility]) [address] [place] [address] 47713 RBC (Bld) [#/Vol] 4.65 x10*6/uL Normal 4.50-5.90 [facility] Comment on above: Performed By: #### 5 7021-8 #### JOE TRUJILLO ([id number]) [facility] ([facility]) [address] [place] [address] 54981 WBC (Bld) [#/Vol] 7.2 x10*3/uL Normal 4.4-11.3 [facility] Comment on above: Performed By: #### 5 7021-8 #### JOE TRUJILLO ([id number]) [facility] ([facility]) [address] [place] [address] Calcidiolon 02-28-2024 25-hydroxyvitamin D3 [Mass/Vol] 33 ng/mL Normal 30-100 [facility] Comment on above: Order Comment: Defic iency: < 20 ng/mlInsufficiency: 20-29 ng/mlSufficiency: 30-100 ng/mlThis assay accurately quantifies the sum of Vitamin D3, 25-Hydroxy and Vitamin D2,25-Hydroxy. Performed By: #### 5 7021-8 #### JOE TRUJILLO ([id number]) [facility] ([facility]) [address] [place] [address] Cobalaminson 02-28-2024 Cobalamin (Vitamin B12) [Mass/Vol] 730 pg/mL Normal 211-911 [facility] Comment on above: Performed By: #### 5 7021-8 #### JOE TRUJILLO ([id number]) [facility] ([facility]) [address] [place] [address] Comprehensive metabolic 2000 panelon 02-28-2024 Albumin BCP dye [Mass/Vol] 4.3 g/dL Normal 3.4-5.0 [facility] Comment on above: Performed By: #### 2 857-1 #### JOE TRUJILLO ([id number]) [facility] ([facility]) [address] [place] [address] ALP [Catalytic activity/Vol] 104 U/L Normal 33-136 [facility] Comment on above: Performed By: #### 2 857-1 #### JOE TRUJILLO ([id number]) [facility] ([facility]) [address] [place] [address] ALT With P-5'-P [Catalytic activity/Vol] 27 U/L Normal 10-52 [facility] Comment on above: Result Comment: Casandra ents treated with Sulfasalazine may generate falsely decreased results for ALT. Performed By: #### 2 857-1 #### JOE TRUJILLO ([id number]) [facility] ([facility]) [address] [place] [address] Anion gap [Moles/Vol] 12 mmol/L Normal 10-20 [facility] Comment on above: Performed By: #### 2 857-1 #### JOE TRUJILLO ([id number]) [facility] ([facility]) [address] [place] [address] AST With P-5'-P [Catalytic activity/Vol] 19 U/L Normal 9-39 [facility] Comment on above: Performed By: #### 2 857-1 #### JOE TRUJILLO ([id number]) [facility] ([facility]) [address] [place] [address] 26383 Bilirubin [Mass/Vol] 0.3 mg/dL Normal 0.0-1.2 [facility] Comment on above: Performed By: #### 2 857-1 #### JOE TRUJILLO (04745) [facility] ([facility]) [address] [place] [address] Calcium [Mass/Vol] 9.0 mg/dL Normal 8.6-10.3 [facility] Comment on above: Performed By: #### 2 857-1 #### JOE TRUJILLO ([id number]) [facility] ([facility]) [address] [place] [address] Chloride [Moles/Vol] 101 mmol/L Normal 98-107 [facility] Comment on above: Performed By: #### 2 857-1 #### JOE TRUJILLO ([id number]) [facility] ([facility]) [address] [place] [address] CO2 [Moles/Vol] 32 mmol/L Normal 21-32 [facility] Comment on above: Performed By: #### 2 857-1 #### JOE TRUJILLO ([id number]) [facility] ([facility]) [address] [place] [address] Creatinine [Mass/Vol] 0.68 mg/dL Normal 0.50-1.30 [facility] Comment on above: Performed By: #### 2 857-1 #### JOE TRUJILLO ([id number]) [facility] ([facility]) [address] [place] [address] 89069 GFR/1.73 sq M.predicted MDRD (S/P/Bld) [Vol rate/Area] mL/min/{1.73_m2} Normal >60 [facility] Comment on above: Result Comment: Calc ulations of estimated GFR are performed using the 2020 CKD-EPI Study Refit equation without the race variable for the IDMS-Traceable creatinine methods. https://jasn.asnjournals.org/content//ASN.1680971 988 Performed By: #### 2 857-1 #### JOE TRUJILLO ([id number]) [facility] ([facility]) [address] [place] [address] 69957 Glucose [Mass/Vol] 87 mg/dL Normal 74-99 [facility] Comment on above: Performed By: #### 2 857-1 #### JOE TRUJILLO ([id number]) [facility] ([facility]) [address] [place] [address] 47651 Potassium [Moles/Vol] 4.2 mmol/L Normal 3.5-5.3 [facility] Comment on above: Performed By: #### 2 857-1 #### JOE TRUJILLO ([id number]) [facility] ([facility]) [address] [place] [address] 14377 Protein [Mass/Vol] 7.1 g/dL Normal 6.4-8.2 [facility] Comment on above: Performed By: #### 2 857-1 #### JOE TRUJILLO ([id number]) [facility] ([facility]) [address] [place] [address] 31414 Sodium [Moles/Vol] 141 mmol/L Normal 136-145 [facility] Comment on above: Performed By: #### 2 857-1 #### JOE TRUJILLO ([id number]) [facility] ([facility]) [address] [place] [address] Urea nitrogen [Mass/Vol] 16 mg/dL Normal 6-23 [facility] Comment on above: Performed By: #### 2 857-1 #### JOE TRUJILLO ([id number]) [facility] ([facility]) [facility] [place] [id number] HbA1c (Bld) [Mass fraction]o n 02-28-2024 Average glucose Estimated from glycated hemoglobin (Bld) [Mass/Vol] 108 mg/dL Normal Not Established [facility] Comment on above: Order Comment: Diagn osis of Toknkruo-HwagpgTlk-Gcpftdan: < or = 5.6%Increased risk for developing diabetes: 5.7-6.4%Diagnostic of diabetes: > or = 6.5% Performed By: #### 5 7021-8 #### JOE TRUJILLO ([id number]) [facility] ([facility]) [address] [place] [address] 90092 Hemoglobin A1c/Hemoglobin.to nikunj 02-28-2024 HbA1c (Bld) [Mass fraction] 5.4 % Normal see below [facility] Comment on above: Order Comment: Diagn osis of Ivrbzejr-XmzyyfPzc-Nmjcwpjf: < or = 5.6%Increased risk for developing diabetes: 5.7-6.4%Diagnostic of diabetes: > or = 6.5% Performed By: #### 5 7021-8 #### JOE TRUJILLO (54231) [facility] ([facility]) [address] [place], [place] [address] Lipid 1996 panelon 4 Cholesterol [Mass/Vol] 139 mg/dL Normal 0-199 [facility] Comment on above: Result Comment: Age Desirable Borderline High High 0-19 Y 0 - 169 170 - 199 >/= 200 20-24 Y 0 - 189 190 - 224 >/= 225 >24 Y 0 - 199 200 - 239 >/= 240 All ranges are based on fasting samples. Specific therapeutic targets will vary based on patient-specific cardiac risk. Pediatric guidelines reference:Pediatrics 2011, 128(S5).Adult guidelines reference: NCEP ATPIII Guidelines,FRANCOIS 2001, 258:2486-97 Venipuncture immediately after or during the administration of Metamizole may lead to falsely low results. Testing should be performed immediately prior to Metamizole dosing. Performed By: #### 2 857-1 #### JOE TRUJILLO ([id number]) [facility] ([facility]) [address] [place] [address] 38376 Cholesterol in HDL [Mass/Vol] 50.0 mg/dL Normal [facility] Comment on above: Performed By: #### 2 857-1 #### JOE TRUJILLO ([id number]) [facility] ([facility]) [address] [place] [address] 49217 Cholesterol in LDL [Mass/Vol] 55 mg/dL [facility] Comment on above: Result Comment: Near Borderline AGE Desirable Optimal High High Very High 0-19 Y 0 - 109 --- 110-129 >/= 130 ---- 20-24 Y 0 - 119 --- 120-159 >/= 160 ---- >24 Y 0 - 99 100-129 130-159 160-189 >/=190 Performed By: #### 2 857-1 #### JOE TRUJILLO ([id number]) [facility] ([facility]) [address] [place] [address] 78186 Cholesterol in VLDL [Mass/Vol] 34 mg/dL Normal 0-40 [facility] Comment on above: Performed By: #### 2 857-1 #### JOE TRUJILLO ([id number]) [facility] ([facility]) [address] [place] [address] 66820 CHOLESTEROL/HDL RATIO 2.8 [facility] Comment on above: Result Comment: Ref Values Desirable < 3.4 High Risk > 5.0 Performed By: #### 2 857-1 #### JOE TRUJILLO ([id number]) [facility] ([facility]) [address] [place] [address] 27992 NON HDL CHOLESTEROL 89 mg/dL Normal 0-149 [facility] Comment on above: Result Comment: Age Desirable Borderline High High Very High 0-19 Y 0 - 119 120 - 144 >/= 145 >/= 160 20-24 Y 0 - 149 150 - 189 >/= 190 ---- >24 Y 30 mg/dL above LDL Cholesterol goal Performed By: #### 2 857-1 #### JOE TRUJILLO ([id number]) [facility] ([facility]) [address] [place] [id number] Triglyceride [Mass/Vol] 170 mg/dL High 0-149 [facility] Comment on above: Result Comment: Age Desirable Borderline High High Very High 0 D-90 D 19 - 174 ---- ---- ---- 91 D- 9 Y 0 - 74 75 - 99 >/= 100 ---- 10-19 Y 0 - 89 90 - 129 >/= 130 ---- 20-24 Y 0 - 114 115 - 149 >/= 150 ---- >24 Y 0 - 149 150 - 199 200- 499 >/= 500 Venipuncture immediately after or during the administration of Metamizole may lead to falsely low results. Testing should be performed immediately prior to Metamizole dosing. Performed By: #### 2 857-1 #### JOE TRUJILLO ([id number]) [facility] ([facility]) [address] [place] [address] Thyrotropinon 02-28-2024 TSH Qn 4.53 m[IU]/L High 0.44-3.98 [facility] Comment on above: Order Comment: TSH t esting is performed using different testing methodology at [facility] than at other [facility]. Direct result comparisons should only be made within the same method. Performed By: #### 5 7021-8 #### JOE TRUJILLO ([id number]) [facility] ([facility]) [address] [place] [id number] M. tuberculosis stim IFN-g a nd spot count panel (Bld)on 01-02-2024 Gamma interferon negative control spot count (Bld) [#] Passed [facility] Comment on above: Performed By: #### 5 7021-8 #### JOE TRUJILLO ([id number]) [facility] ([facility] [facility] [address] [place] [address] 99755 M. tuberculosis stim IFN-g CFP10 Ag spot count (Bld) [#] 0 [facility] Comment on above: Performed By: #### 5 7021-8 #### JOE TRUJILLO ([id number]) [facility] ([facility]) [facility] [place] [address] M. tuberculosis stim IFN-g ESAT-6 Ag spot count (Bld) [#] 0 Normal [facility] Comment on above: Performed By: #### 5 7021-8 #### JOE TRUJILLO ([id number]) [facility] ([facility]) [address] [place] [address] 20171 M. tuberculosis stim IFN-g Ql (Bld) [Interp] Negative Normal Negative [facility] Comment on above: Result Comment: A negative test result does not exclude the possibility of exposure to or infection with Mycobacterium tuberculosis (M. tuberculosis). Patients with recent exposure to TB infected individuals exhibiting a negative T-SPOT.TB result should be considered for retesting within 6 weeks or if other relevant clinical symptoms indicate. Results from T-SPOT.TB testing must be used in conjunction with each individual's epidemiological history, current medical status, and results of other diagnostic evaluations. The T-SPOT.TB test is qualitative and results are reported as positive, borderline, or negative, given that the test controls perform as expected. In line with the Centers for Disease Control and Prevention's 2010 recommendation to report quantitative measurements alongside the qualitative result, the laboratory provides spot counts for informational purposes only. The T-SPOT.TB test should not be interpreted as a quantitative test. Performed By: #### 5 7021-8 #### JOE TRUJILLO ([id number]) [facility] ([facility]) [address] [place] [address] 35393 Mitogen stimulated gamma interferon positive control spot count (Bld) [#] Passed Normal [facility] Comment on above: Result Comment: For additional information, please refer to http://education.[employer].com/faq/BOQ871 (This link is being provided for informational/ educational purposes only.) Performed By: #### 5 7021-8 #### JOE TRUJILLO ([id number]) [facility] ([facility]) [address] [place] [address] 02996 Prostate specific Agon 01-01 Prostate specific Ag [Mass/Vol] 1.16 ng/mL Normal <=4.00 [facility] Comment on above: Order Comment: The F DA requires that the method used for PSA assay be reported to the physician. Values obtained with different assay methods must not be used interchangeably. This test was performed at [facility] using the Vouchr PSA assay is a two-site immunoenzymatic sandwichassay. The assay is approved for measurement of prostate-specific antigen (PSA)in serum and may be used in conjunction with a digital rectal examination in men 50 years and older as an aid in detection of prostate cancer.1-Gqyej-vzjxgranq inhibitors (e.g. Proscar, Finasteride, Avodart, Dutasteride and Zeina) for the treatment of BPH have been shown to lower PSA levels by an average of 50% after 6 months of treatment. Performed By: #### 5 7021-8 #### DIAZ RONNIE ([id number]) [facility] ([facility]) [address] [place] [address] CARDIAC RHYTHM (SCANNED)on 0 08-30-2023 [facility] EXTRA MICROon 08-17-2023 [facility] URINE CULTUREOrdered By: Maribeth Olivera on 08-17-2023 Bacteria identified Cx Nom (Unsp spec) Growth [facility] Bacteria identified Cx Nom (Unsp spec) 10,000-50,000 CFU/mL Mixed skin thang [facility] Comment on above: Multiple bacterial m orphotypes present. Suggest appropriate recollection if clinically indicated. [facility] CBC AND ELECTRONIC DIFFon Basophils (Bld) [#/Vol] K/uL 0.00 - 0.09 K/uL [facility] Basophils/100 WBC (Bld) 0.3 % [facility] Differential cell count method Nom (Bld) Electronic Differential [facility] Eosinophils (Bld) [#/Vol] 0.24 10*3/uL 0.00 - 0.48 K/uL [facility] Eosinophils/100 WBC (Bld) 2.5 % [facility] Erythrocyte distribution width (RBC) [Ratio] 13.4 % 10.9 - 14.3 % [facility] Hematocrit (Bld) [Volume fraction] 45.0 % 39.6 - 48.8 % [facility] Hemoglobin (Bld) [Mass/Vol] 14.6 g/dL 13.4 - 16.8 g/dL [facility] Immature granulocytes (Bld) [#/Vol] 0.05 10*3/uL NINF - 0.07 K/uL [facility] Immature granulocytes/100 WBC (Bld) 0.5 % [facility] Interpretation and review of laboratory results Abnormal [facility] Lymphocytes (Bld) [#/Vol] 2.49 10*3/uL 0.83 - 3.57 K/uL [facility] Lymphocytes/100 WBC (Bld) 25.5 % [facility] MCH (RBC) [Entitic mass] 31.1 pg 26.1 - 33.3 pg [facility] MCHC (RBC) [Mass/Vol] 32.4 g/dL 31.9 - 36.5 g/dL [facility] MCV (RBC) [Entitic vol] 95.7 fL High 79.0 - 94.5 fL [facility] Monocytes (Bld) [#/Vol] 0.98 10*3/uL High 0.24 - 0.93 K/uL [facility] Monocytes/100 WBC (Bld) 10.0 % [facility] Neutrophils (Bld) [#/Vol] 5.98 10*3/uL 1.57 - 6.19 K/uL [facility] Nucleated RBC/100 WBC (Bld) [Ratio] 0.0 % [facility] Platelet mean volume (Bld) [Entitic vol] 10.2 fL 8.7 - 12.3 fL [facility] Platelets (Bld) [#/Vol] 237 10*3/uL 146 - 337 K/uL [facility] RBC (Bld) [#/Vol] 4.70 10*6/uL [facility] Segmented neutrophils/100 WBC (Bld) 61.2 % [facility] WBC (Bld) [#/Vol] 9.77 10*3/uL 3.73 - 10. 10 K/uL [facility] CHEM 6 (LYTES, BUN CREA)on 0 08-16-2023 Anion gap [Moles/Vol] 9 mmol/L 7 - 17 mmol/L [facility] Chloride [Moles/Vol] 101 mmol/L 98 - 10 8 mmol/L [facility] CO2 [Moles/Vol] 32 mmol/L High 21 - 31 mmol/L [facility] Creatinine [Mass/Vol] 0.58 mg/dL Low 0.70 - 1.30 mg/dL [facility] eGFR, CKD-EPI, Male - PINF [facility] Comment on above: Reported eGFR is bas ed on the CKD-EPI 2020 equation using creatinine, age, and sex. Interpretation and review of laboratory results Abnormal [facility] Potassium [Moles/Vol] 4.4 mmol/L 3.5 - 5.0 mmol/L [facility] Sodium [Moles/Vol] 138 mmol/L 135 - 145 mmol/L [facility] Urea nitrogen [Mass/Vol] 21 mg/dL 7 - 25 mg/dL [facility] Urea nitrogen/Creatinine [Mass ratio] 36 mg/mg [facility] EXTRA LIGHT BLUE TOP DOUBLE SPINon 08-16-2023 Dummy LRR - Route to Double Spin Received [facility] HEMOGLOBIN A1Con 08-16-2023 Average glucose Estimated from glycated hemoglobin (Bld) [Mass/Vol] 105 mg/dL [facility] HbA1c (Bld) [Mass fraction] 5.3 % 4.7 - 5.6 % [facility] PROTIME-INRon 08-16-2023 INR Coag (Bld) [Relative time] 1.0 {INR} 0.9 - 1.1 [facility] Interpretation and review of laboratory results Normal [facility] PT Coag (PPP) [Time] 13.3 s [facility] PTT W/MIXING STUDY PERF ONLY Ordered By: Madelyn Ngo on 08-16-2023 aPTT Coag (PPP) [Time] 28.5 s [facility] PTT Mixing Study With Normal Plasma Not Indicated [facility] SCREEN: MRSA/MSSAOrdered By: Carmelina Zeng on 08-16-2023 Interpretation and review of laboratory results Normal [facility] Methicillin Resistant S. Aureus By Pcr Negative Negative [facility] Staphylococcus Aureus By Pcr Negative Negative [facility] This test was perfor med using a real time PCR assay. Results should be interpreted in conjunction with other clinical and laboratory findings. A positive result does not necessarily indicate the presence of viable organism. This test should not be used as a test of cure. For E-swab specimens, this test was developed and its performance characteristics determined by the Clinical Microbiology Laboratory at [facility]. It has not been cleared or approved by the FDA.The laboratory is regulated under CLIA as qualified to perform high-complexity testing. This test is used for clinical purposes. It should not be regarded as investigational or for research. [facility] TSH W/FT4 REFLEXon Interpretation and review of laboratory results Normal [facility] TSH Qn 3.191 m[IU]/L [facility] TYPE AND SCREEN - PREADMISSI ONon 08-16-2023 ABO/RH(D) TYPE Positive [facility] Ammoniaon 06-02-2023 Ammonia (P) [Moles/Vol] 23 umol/L Normal 16-53 [facility] Comment on above: Performed By: #### 1 6362-6 #### DIAZ RONNIE ([id number]) [facility] ([facility]) [address] [place] [address] CBC W Auto Differential pane l (Bld)on 06-02-2023 Basophils (Bld) [#/Vol] 0.02 x10*3/uL Normal 0.00-0.10 [facility] Comment on above: Performed By: #### 5 7021-8 #### JOE TRUJILLO ([id number]) [facility] ([facility]) [address] [place] [address] 18197 Basophils/100 WBC (Bld) 0.2 % Normal 0.0-2.0 [facility] Comment on above: Performed By: #### 5 7021-8 #### JOE TRUJILLO ([id number]) [facility] ([facility]) [address] [place] [address] 92904 Eosinophils (Bld) [#/Vol] 0.10 x10*3/uL Normal 0.00-0.70 [facility] Comment on above: Performed By: #### 5 7021-8 #### JOE TRUJILLO ([id number]) [facility] ([facility]) [address] [place] [address] 91024 Eosinophils/100 WBC (Bld) 1.2 % Normal 0.0-6.0 [facility] Comment on above: Performed By: #### 7021-8 #### JOE TRUJILLO ([id number]) [facility] ([facility]) [address] [place] [address] 65845 Erythrocyte distribution width (RBC) [Ratio] 13.6 % Normal 11.5-14.5 [facility] Comment on above: Performed By: #### 5 7021-8 #### JOE TRUJILLO ([id number]) [facility] ([facility]) [address] [place] [address] 81714 Hematocrit (Bld) [Volume fraction] 47.7 % Normal 41.0-52.0 [facility] Comment on above: Performed By: #### 7021-8 #### JOE TRUJILLO ([id number]) [facility] ([facility]) [address] [place] [address] 53475 Hemoglobin (Bld) [Mass/Vol] 15.2 g/dL Normal 13.5-17.5 [facility] Comment on above: Performed By: #### 5 7021-8 #### JOE TRUJILLO ([id number]) [facility] ([facility]) [address] [place] [address] 29159 Immature granulocytes (Bld) [#/Vol] 0.01 x10*3/uL Normal 0.00-0.70 [facility] Comment on above: Performed By: #### 5 7021-8 #### JOE TRUJILLO ([id number]) [facility] ([facility]) [address] [place] [address] 68859 Immature granulocytes/100 WBC (Bld) 0.1 % Normal 0.0-0.9 [facility] Comment on above: Result Comment: Elsa ture Granulocyte Count (IG) includes promyelocytes, myelocytes and metamyelocytes but does not include bands. Percent differential counts (%) should be interpreted in the context of the absolute cell counts (cells/UL). Performed By: #### 5 7021-8 #### JOE TRUJILLO ([id number]) [facility] ([facility]) [address] [place] [address] 98285 Lymphocytes (Bld) [#/Vol] 1.13 x10*3/uL Low 1.20-4.80 [facility] Comment on above: Performed By: #### 5 7021-8 #### JOE TRUJILLO ([id number]) [facility] ([facility]) [address] [place] [address] 64540 Lymphocytes/100 WBC (Bld) 13.7 % Normal 13.0-44.0 [facility] Comment on above: Performed By: #### 5 7021-8 #### JOE TRUJILLO ([id number]) [facility] ([facility]) [address] [place] [address] 42540 MCH (RBC) [Entitic mass] 30.8 pg Normal 26.0-34.0 [facility] Comment on above: Performed By: #### 5 7021-8 #### JOE TRUJILLO ([id number]) [facility] ([facility]) [address] [place] [address] 46453 MCHC (RBC) [Mass/Vol] 31.9 g/dL Low 32.0-36.0 [facility] Comment on above: Performed By: #### 5 7021-8 #### JOE TRUJILLO ([id number]) [facility] ([facility]) [address] [place] [address] 78408 MCV (RBC) [Entitic vol] 97 fL Normal 80-100 [facility] Comment on above: Performed By: #### 5 7021-8 #### JOE TRUJILLO ([id number]) [facility] ([facility]) [address] [place] [address] 99494 Monocytes (Bld) [#/Vol] 0.82 x10*3/uL Normal 0.10-1.00 [facility] Comment on above: Performed By: #### 5 7021-8 #### JOE TRUJILLO ([id number]) [facility] ([facility]) [address] [place] [address] 02732 Monocytes/100 WBC (Bld) 9.9 % Normal 2.0-10.0 [facility] Comment on above: Performed By: #### 5 7021-8 #### JOE TRUJILLO ([id number]) [facility] ([facility]) [address] [place] [address] 47186 Neutrophils (Bld) [#/Vol] 6.17 x10*3/uL Normal 1.20-7.70 [facility] Comment on above: Result Comment: Perc ent differential counts (%) should be interpreted in the context of the absolute cell counts (cells/uL). Performed By: #### 5 7021-8 #### JOE TRUJILLO ([id number]) [facility] ([facility]) [address] [place] [address] 70129 Neutrophils/100 WBC (Bld) 74.9 % Normal 40.0-80.0 [facility] Comment on above: Performed By: #### 5 7021-8 #### JOE TRUJILLO ([id number]) [facility] ([facility]) [address] [place] [address] 00981 Nucleated RBC/100 WBC (Bld) [Ratio] 0.0 /100 WBCs Normal 0.0-0.0 [facility] Comment on above: Performed By: #### 5 7021-8 #### JOE TRUJILLO ([id number]) [facility] ([facility]) [address] [place] [address] 06380 Platelet mean volume (Bld) [Entitic vol] 10.7 fL Normal 7.5-11.5 [facility] Comment on above: Performed By: #### 5 7021-8 #### JOE TRUJILLO ([id number]) [facility] ([facility]) [address] [place] [address] 10622 Platelets (Bld) [#/Vol] 224 x10*3/uL Normal 150-450 [facility] Comment on above: Performed By: #### 5 7021-8 #### JOE TRUJILLO ([id number]) [facility] ([facility]) [address] [place] [address] 55568 RBC (Bld) [#/Vol] 4.94 x10*6/uL Normal 4.50-5.90 [facility] Comment on above: Performed By: #### 5 7021-8 #### JOE TRUJILLO ([id number]) [facility] ([facility]) [address] [place] [address] 59216 WBC (Bld) [#/Vol] 8.3 x10*3/uL Normal 4.4-11.3 [facility] Comment on above: Performed By: #### 5 7021-8 #### JOE TRUJILLO ([id number]) [facility] ([facility]) [address] [place] [address] Calcidiolon 06-02-2023 25-hydroxyvitamin D3 [Mass/Vol] 32 ng/mL Normal 30-100 [facility] Comment on above: Order Comment: Defic iency: < 20 ng/ml Insufficiency: 20-29 ng/ml Sufficiency: 30-100 ng/ml This assay accurately quantifies the sum of Vitamin D3, 25-Hydroxy and Vitamin D2,25-Hydroxy. Performed By: #### 1 989-3 #### JOE TRUJILLO ([id number]) [facility] ([facility]) [address] [place] [address] 52633 Cobalaminson 06-02-2023 Cobalamin (Vitamin B12) [Mass/Vol] 712 pg/mL Normal 211-911 [facility] Comment on above: Performed By: #### 2 132-9 #### JOE TRUJILLO ([id number]) [facility] ([facility]) [address] [place] [address] 89188 Comprehensive metabolic 2000 panelon 06-02-2023 Albumin BCP dye [Mass/Vol] 4.2 g/dL Normal 3.4-5.0 [facility] Comment on above: Performed By: #### 2 4323-8 #### JOE TRUJILLO ([id number]) [facility] ([facility]) [address] [place] [address] 14836 ALP [Catalytic activity/Vol] 123 U/L Normal 33-136 [facility] Comment on above: Performed By: #### 2 4323-8 #### JOE TRUJILLO ([id number]) [facility] ([facility]) [address] [place] [address] 73770 ALT With P-5'-P [Catalytic activity/Vol] 20 U/L Normal 10-52 [facility] Comment on above: Result Comment: Casandra ents treated with Sulfasalazine may generate falsely decreased results for ALT. Performed By: #### 2 4323-8 #### JOE TRUJILLO ([id number]) [facility] ([facility]) [address] [place] [address] 25953 Anion gap [Moles/Vol] 10 mmol/L Normal -20 [facility] Comment on above: Performed By: #### 2 4323-8 #### JOE TRUJILLO ([id number]) [facility] ([facility]) [address] [place] [address] 38991 AST With P-5'-P [Catalytic activity/Vol] 14 U/L Normal 9-39 [facility] Comment on above: Performed By: #### 2 4323-8 #### JOE TRUJILLO ([id number]) [facility] ([facility]) [address] [place] [address] 81151 Bilirubin [Mass/Vol] 0.3 mg/dL Normal 0.0-1.2 [facility] Comment on above: Performed By: #### 2 4323-8 #### JOE TRUJILLO ([id number]) [facility] ([facility]) [address] [place] [address] Calcium [Mass/Vol] 9.1 mg/dL Normal 8.6-10.3 [facility] Comment on above: Performed By: #### 2 4323-8 #### JOE TRUJILLO ([id number]) [facility] ([facility]) [address] [place] [address] Chloride [Moles/Vol] 102 mmol/L Normal 98-107 [facility] Comment on above: Performed By: #### 2 4323-8 #### JOE TURJILLO ([id number]) [facility] ([facility]) [address] [place] [address] 13480 CO2 [Moles/Vol] 34 mmol/L High 21-32 [facility] Comment on above: Performed By: #### 2 4323-8 #### JOE TRUJILLO ([id number]) [facility] ([facility]) [address] [place] [address] 67192 Creatinine [Mass/Vol] 0.56 mg/dL Normal 0.50-1.30 [facility] Comment on above: Performed By: #### 2 4323-8 #### JOE TRUJILLO ([id number]) [facility] ([facility]) [address] [place] [address] 79441 GFR/1.73 sq M.predicted MDRD (S/P/Bld) [Vol rate/Area] mL/min/{1.73_m2} Normal >60 [facility] Comment on above: Result Comment: Calc ulations of estimated GFR are performed using the 2020 CKD-EPI Study Refit equation without the race variable for the IDMS-Traceable creatinine methods. https://jasn.asnjournals.org/content//ASN.6414050 988 Performed By: #### 2 4323-8 #### JOE TRUJILLO ([id number]) [facility] ([facility]) [facility] [place] [address] Glucose [Mass/Vol] 84 mg/dL Normal 74-99 [facility] Comment on above: Performed By: #### 2 4323-8 #### JOE TRUJILLO ([id number]) [facility] ([facility]) [address] [place] [address] 05198 Potassium [Moles/Vol] 4.3 mmol/L Normal 3.5-5.3 [facility] Comment on above: Performed By: #### 2 432-8 #### JOE TRUJILLO ([id number]) [facility] ([facility]) [address] [place] [address] 65333 Protein [Mass/Vol] 7.1 g/dL Normal 6.4-8.2 [facility] Comment on above: Performed By: #### 2 432-8 #### JOE TRUJILLO ([id number]) [facility] ([facility]) [address] [place] [address] 50679 Sodium [Moles/Vol] 142 mmol/L Normal 136-145 [facility] Comment on above: Performed By: #### 2 432-8 #### JOE TRUJILLO ([id number]) [facility] ([facility]) [address] [place] [address] 22128 Urea nitrogen [Mass/Vol] 14 mg/dL Normal 6-23 [facility] Comment on above: Performed By: #### 2 432-8 #### JOE TRUJILLO ([id number]) [facility] ([facility]) [address] [place] [address] 01927 Ferritinon 06-02-2023 Ferritin [Mass/Vol] 113 ng/mL Normal 20-300 [facility] Comment on above: Performed By: #### 5 7021-8 #### JOE TRUJILLO ([id number]) [facility] ([facility]) [address] [place] [address] 44399 Iron and Iron binding capaci ty panelon 06-02-2023 Iron [Mass/Vol] 57 ug/dL Normal 35-150 [facility] Comment on above: Performed By: #### 5 7021-8 #### JOE TRUJILLO ([id number]) [facility] ([facility]) [address] [place] [address] 54054 Iron binding capacity [Mass/Vol] 307 ug/dL Normal 240-445 [facility] Comment on above: Performed By: #### 5 7021-8 #### JOE TRUJILLO ([id number]) [facility] ([facility]) [address] [place] [address] 40741 Iron binding capacity.unsaturated [Mass/Vol] 250 ug/dL Normal 110-370 [facility] Comment on above: Performed By: #### 5 7021-8 #### JOE TRUJILLO ([id number]) [facility] ([facility]) [facility] [place] [address] Iron saturation [Mass fraction] 19 % Low 25-45 [facility] Comment on above: Performed By: #### 5 7021-8 #### JOE TRUJILLO ([id number]) [facility] ([facility]) [address] [place] [address] 47501 Lipid 1996 panelon 3 Cholesterol [Mass/Vol] 119 mg/dL Normal 0-199 [facility] Comment on above: Result Comment: Age Desirable Borderline High High 0-19 Y 0 - 169 170 - 199 >/= 200 20-24 Y 0 - 189 190 - 224 >/= 225 >24 Y 0 - 199 200 - 239 >/= 240 All ranges are based on fasting samples. Specific therapeutic targets will vary based on patient-specific cardiac risk. Pediatric guidelines reference:Pediatrics 2011, 128(S5).Adult guidelines reference: NCEP ATPIII Guidelines,FRANCOIS 2001, 258:2486-97 Venipuncture immediately after or during the administration of Metamizole may lead to falsely low results. Testing should be performed immediately prior to Metamizole dosing. Performed By: #### 2 4331-1 #### JOE TRUJILLO ([id number]) [facility] ([facility]) [address] [place] [address] 00796 Cholesterol in HDL [Mass/Vol] 52.0 mg/dL Normal [facility] Comment on above: Result Comment: Age Very Low Low Normal High 0-19 Y < 35 < 40 40-45 ---- 20-24 Y ---- < 40 >45 ---- >24 Y ---- < 40 40-60 >60 Performed By: #### 2 4331-1 #### JOE TRUJILLO ([id number]) [facility] ([facility]) [facility] [place] [address] Cholesterol in LDL [Mass/Vol] 52 mg/dL Normal <=99 [facility] Comment on above: Result Comment: Near Borderline AGE Desirable Optimal High High Very High 0-19 Y 0 - 109 --- 110-129 >/= 130 ---- 20-24 Y 0 - 119 --- 120-159 >/= 160 ---- >24 Y 0 - 99 100-129 130-159 160-189 >/=190 Performed By: #### 2 4331-1 #### JOE TRUJILLO ([id number]) [facility] ([facility]) [address] [place] [address] 78806 Cholesterol in VLDL [Mass/Vol] 15 mg/dL Normal 0-40 [facility] Comment on above: Performed By: #### 2 4331-1 #### JOE TRUJILLO ([id number]) [facility] ([facility]) [address] [place] [address] 63891 CHOLESTEROL/HDL RATIO 2.3 Normal [facility] Comment on above: Result Comment: Ref Values Desirable < 3.4 High Risk > 5.0 Performed By: #### 2 4331-1 #### JOE TRUJILLO ([id number]) [facility] ([facility]) [address] [place] [id number] NON HDL CHOLESTEROL 67 mg/dL Normal 0-149 [facility] Comment on above: Result Comment: Age Desirable Borderline High High Very High 0-19 Y 0 - 119 120 - 144 >/= 145 >/= 160 20-24 Y 0 - 149 150 - 189 >/= 190 ---- >24 Y 30 mg/dL above LDL Cholesterol goal Performed By: #### 2 4331-1 #### JOE TRUJILLO ([id number]) [facility] ([facility]) [facility] [place] [address] Triglyceride [Mass/Vol] 77 mg/dL Normal 0-149 [facility] Comment on above: Result Comment: Age Desirable Borderline High High Very High 0 D-90 D 19 - 174 ---- ---- ---- 91 D- 9 Y 0 - 74 75 - 99 >/= 100 ---- 10-19 Y 0 - 89 90 - 129 >/= 130 ---- 20-24 Y 0 - 114 115 - 149 >/= 150 ---- >24 Y 0 - 149 150 - 199 200- 499 >/= 500 Venipuncture immediately after or during the administration of Metamizole may lead to falsely low results. Testing should be performed immediately prior to Metamizole dosing. Performed By: #### 2 4331-1 #### JOE TRUJILLO ([id number]) [facility] ([facility]) [address] [place] [address] Magnesiumon 06-02-2023 Magnesium [Mass/Vol] 2.22 mg/dL Normal 1.60-2.40 [facility] Comment on above: Performed By: #### 1 9123-9 #### JOE TRUJILLO ([id number]) [facility] ([facility]) [address] [place] [address] PHENobarbitalon 06-02-2023 PHENobarbital [Mass/Vol] 32.3 ug/mL Normal 10.0-40.0 [facility] Comment on above: Performed By: #### 5 7021-8 #### JOE TRUJILLO ([id number]) [facility] ([facility]) [address] [place] [address] Phenytoinon 06-02-2023 Phenytoin [Mass/Vol] 6.4 ug/mL Low 10.0-20.0 [facility] Comment on above: Performed By: #### 3 968-5 #### JOE TRUJILLO ([id number]) [facility] ([facility]) [address] [place] [address] Prostate specific Agon 06-02 Prostate specific Ag [Mass/Vol] 0.70 ng/mL Normal <=4.00 [facility] Comment on above: Order Comment: The DA requires that the method used for PSA assay be reported to the physician. Values obtained with different assay methods must not be used interchangeably. This test was performed at [facility] using the Access Optimum MagazinebrAppographych PSA assay is a two-site immunoenzymatic sandwich assay. The assay is approved for measurement of prostate-specific antigen (PSA)in serum and may be used in conjunction with a digital rectal examination in men 50 years and older as an aid in detection of prostate cancer. 3-Tdtjg-jnyfqrksa inhibitors (e.g. Proscar, Finasteride, Avodart, Dutasteride and Zeina) for the treatment of BPH have been shown to lower PSA levels by an average of 50% after 6 months of treatment. Performed By: #### 2 857-1 #### DIAZ RONNIE ([id number]) [facility] ([facility]) [address] [place] [address] Thyrotropinon 06-02-2023 TSH Qn 2.74 m[IU]/L Normal 0.44-3.98 [facility] Comment on above: Order Comment: TSH t esting is performed using different testing methodology at [facility] than at other [facility]. Direct result comparisons should only be made within the same method. Performed By: #### 3 016-3 #### DIAZ RONNIE ([id number]) [facility] ([facility]) [address] [place] [address] CT ABDOMEN AND PELVIS W IV C [facility] 02-27-[facility]23 CT ABDOMEN AND PELVIS W IV CONTRAST Patient Name: PANCHO MCPHERSON STUDY: CT ABDOMEN AND PELVIS W IV CONTRAST; 02/27/2023 2:43 pm INDICATION: Gallbladder abscess follow-up K81.0: Gallbladder abscess. COMPARISON: 10/14/2022 ACCESSION NUMBER(S): [id number] ORDERING CLINICIAN: LUCY HAHN TECHNIQUE: CT of the abdomen and pelvis was performed. Contiguous axial images were obtained at 3 mm slice thickness through the abdomen and pelvis. Coronal and sagittal reconstructions at 3 mm slice thickness were performed. 90 mL Omnipaque 350 administered intravenously without immediate complication. FINDINGS: LOWER CHEST: Respiratory motion and bibasilar atelectasis. Cardiomegaly. ABDOMEN: LIVER: Unremarkable BILE DUCTS: Not dilated. GALLBLADDER: The previous described rim enhancing pericholecystic collection has enlarged from 37 x 19 mm to 53 x 31 mm. There is a suspected connection with the gallbladder. Adjacent fat stranding persists. No calcified gallstones are identified. PANCREAS: Unremarkable SPLEEN: Unremarkable ADRENAL GLANDS: Unremarkable KIDNEYS AND URETERS: Few small cysts are present. Otherwise unremarkable without hydronephrosis. 3 mm nonobstructing calculus in the left kidney. PELVIS: BLADDER: Moderately distended. REPRODUCTIVE ORGANS: Tiny fat containing right inguinal hernia suspected. There is a partially imaged rim enhancing collection versus urethral dilatation measuring 51 x 11 mm. BOWEL: Post right hemicolectomy changes. No findings of bowel obstruction or inflammation. Previous small bowel dilatation has resolved. Unremarkable mesentery. VESSELS: Aortoiliac system is patent without aneurysm. Major visceral branches are patent. Mild atherosclerosis. IVC and major branches are grossly patent. Major portal venous branches are patent. PERITONEUM AND RETROPERITONEUM: No free fluid or free air. No abdominal or pelvic lymphadenopathy. BONE AND ABDOMINAL WALL: No acute skeletal findings. Degenerative changes of the spine. IMPRESSION: 1. Rim enhancing collection near the gallbladder fundus has enlarged compared to 4.5 months ago from 3.7 cm to 5.3 cm. Adjacent inflammatory fat stranding persists. There is suspected persistent communication with the gallbladder. 2. Partially imaged penile elongated loculated fluid collection versus urethral dilatation. Suggest clinical correlation. Electronically signed by: DRISS LEVINE MD Normal Merged With [facility] CT Abdomen and Pelvis with I V Contraston 02-27-2023 CT Abdomen and Pelvis W contrast IV Normal [facility] [place] Work Phone: CBC AND DIFFERENTIALon 02-15 % AUTOMATED IMMATURE GRAN 0.2 % Normal 0.0 - 0.9 [facility] Comment on above: Result Comment: Elsa ture Granulocyte Count (IG) includes promyelocytes, myelocytes and metamyelocytes but does not include bands. Percent differential counts (%) should be interpreted in the context of the absolute cell counts (cells/L). Performed By: #### U AMIC #### [address] [address] Basophils (Bld) [#/Vol] 0.04 10*3/uL Normal 0.00 - 0.10 [facility] Comment on above: Performed By: #### U AMIC #### [address] [address] Basophils/100 WBC (Bld) 0.4 % 0.0 - 2.0 [facility] Comment on above: Performed By: #### U AMIC #### [address] [address] Eosinophils (Bld) [#/Vol] 0.21 10*3/uL Normal 0.00 - 0.70 [facility] Comment on above: Performed By: #### U AMIC #### [address] [address] Eosinophils/100 WBC (Bld) 1.9 % Normal 0.0 - 6.0 [facility] Comment on above: Performed By: #### U AMIC #### [place] [address] Erythrocyte distribution width (RBC) [Ratio] 13.7 % See Below [facility] Comment on above: Performed By: #### U AMIC #### [place] [address] Reference Range: 11. 5 - 14.5 Hematocrit (Bld) [Volume fraction] 46.3 % See Below [facility] Comment on above: Performed By: #### U AMIC #### [place] [address] Reference Range: 41. 0 - 52.0 Hemoglobin (Bld) [Mass/Vol] 14.8 g/dL See Below [facility] Comment on above: Performed By: #### U AMIC #### [place] [address] Reference Range: 13. 5 - 17.5 Lymphocytes (Bld) [#/Vol] 2.34 10*3/uL Normal 1.20 - 4.80 [facility] Comment on above: Performed By: #### U AMIC #### [place] [id number] Lymphocytes/100 WBC (Bld) 21.0 % See Below [facility] Comment on above: Performed By: #### U AMIC #### [place] [address] Reference Range: 13. 0 - 44.0 MCHC (RBC) [Mass/Vol] 32.0 g/dL See Below [facility] Comment on above: Performed By: #### U AMIC #### [address] [address] Reference Range: 32. 0 - 36.0 MCV (RBC) [Entitic vol] 96 fL 80 - 100 [facility] Comment on above: Performed By: #### U AMIC #### [address] [address] Monocytes (Bld) [#/Vol] 1.16 10*3/uL High 0.10 - 1.00 [facility] Comment on above: Performed By: #### U AMIC #### [address] [address] Monocytes/100 WBC (Bld) 10.4 % 2.0 - 10.0 [facility] Comment on above: Performed By: #### U AMIC #### [place] [id number] Neutrophils (Bld) [#/Vol] 7.36 10*3/uL Normal 1.20 - 7.70 [facility] Comment on above: Result Comment: Perc ent differential counts (%) should be interpreted in the context of the absolute cell counts (cells/L). Performed By: #### U AMIC #### [address] [address] Neutrophils/100 WBC (Bld) 66.1 % See Below [facility] Comment on above: Performed By: #### U AMIC #### [address] [address] Reference Range: 40. 0 - 80.0 Platelets (Bld) [#/Vol] 206 10*3/uL 150 - 450 [facility] Comment on above: Performed By: #### U AMIC #### [address] [address] RBC 4.84 x10E12/L Normal 4.50 - 5.90 [facility] Comment on above: Performed By: #### U AMIC #### [facility] [address] [place] [address] WBC (Bld) [#/Vol] 11.1 10*3/uL 4.4 - 11.3 [facility] Comment on above: Performed By: #### U AMIC #### [place] [address] [place] [address] COMPREHENSIVE PANELon 2022 Albumin [Mass/Vol] 4.2 g/dL Normal 3.4 - 5.0 [facility] Comment on above: Performed By: #### U RINC #### [facility] [address] [place] [address] ALP [Catalytic activity/Vol] 108 U/L 33 - 136 [facility] Comment on above: Performed By: #### U RINC #### [facility] [address] [place] [address] ALT [Catalytic activity/Vol] 19 U/L Normal 10 - 52 [facility] Comment on above: Result Comment: Casandra ents treated with Sulfasalazine may generate falsely decreased results for ALT. Performed By: #### U RINC #### [facility] [address] [place] [address] Anion gap [Moles/Vol] 10 mmol/L 10 - 20 [facility] Comment on above: Performed By: #### U RINC #### [facility] [address] [place] [address] AST [Catalytic activity/Vol] 15 U/L Normal 9 - 39 [facility] Comment on above: Performed By: #### U RINC #### [facility] [address] [place] [address] Bilirubin [Mass/Vol] 0.3 mg/dL 0.0 - 1.2 [facility] Comment on above: Performed By: #### U RINC #### [facility] [address] [place] [address] Calcium [Mass/Vol] 9.4 mg/dL 8.6 - 10.3 [facility] Comment on above: Performed By: #### U RINC #### [facility] [address] [place] [address] Chloride [Moles/Vol] 103 mmol/L 98 - 107 [facility] Comment on above: Performed By: #### U RINC #### [facility] [address] [place] [address] Creatinine [Mass/Vol] 0.60 mg/dL See Below [facility] Comment on above: Performed By: #### U RINC #### [facility] [address] [place] [address] Reference Range: 0.5 0 - 1.30 eGFR MALE >90 Normal >90 [facility] Comment on above: Result Comment: CALC ULATIONS OF ESTIMATED GFR ARE PERFORMED USING THE 2020 CKD-EPI STUDY REFIT EQUATION WITHOUT THE RACE VARIABLE FOR THE IDMS-TRACEABLE CREATININE METHODS. https://jasn.asnjournals.org/content/early/ASN.4901954 988 Performed By: #### U RINC #### [facility] [address] [place] [address] Glucose [Mass/Vol] 85 mg/dL 74 - 99 [facility] Comment on above: Performed By: #### U RINC #### [facility] [address] [place] [address] HCO3 (Bld) [Moles/Vol] 33 mmol/L High 21 - 32 [facility] Comment on above: Performed By: #### U RINC #### [facility] [address] [place] [address] Potassium [Moles/Vol] 3.9 mmol/L 3.5 - 5.3 [facility] Comment on above: Performed By: #### U RINC #### [facility] [address] [place] [address] Protein [Mass/Vol] 7.4 g/dL 6.4 - 8.2 [facility] Comment on above: Performed By: #### U RINC #### [facility] [address] [place] [address] Sodium [Moles/Vol] 142 mmol/L 136 - 145 [facility] Comment on above: Performed By: #### U RINC #### [facility] [address] [place] [address] Urea nitrogen [Mass/Vol] 15 mg/dL [facility] Comment on above: Performed By: #### U RINC #### [facility] [address] [place] [address] Complete Blood Count + Diffe graceleah 02-15-2023 RBC (Bld) [#/Vol] 4.84 {x10E12/L} See Below [place] [address] Work Phone: Comment on above: Reference Range: 4.5 0 - 5.90 Complete Blood Count + Differential 0.04 {x10E9/L} See Below [place] [address] Work Phone: Comment on above: Reference Range: 0.0 0 - 0.10 Complete Blood Count + Differential 0.21 {x10E9/L} See Below [place] [address] Work Phone: Comment on above: Reference Range: 0.0 0 - 0.70 Complete Blood Count + Differential 1.16 {x10E9/L} above high threshold See Below [place] [address] Work Phone: Comment on above: Reference Range: 0.1 0 - 1.00 Complete Blood Count + Differential 2.34 {x10E9/L} See Below [place] [address] Work Phone: Comment on above: Reference Range: 1.2 0 - 4.80 Complete Blood Count + Differential 7.36 {x10E9/L} See Below [place] [address] Work Phone: Comment on above: Reference Range: 1.2 0 - 7.70 Percent differential counts (%) should be interpreted in the context of the absolute cell counts (cells/L). Complete Blood Count + Differential 1.9 % 0.0 - 6.0 [place] [address] Work Phone: Complete Blood Count + Differential 0.2 % 0.0 - 0.9 [place] [address] Work Phone: Comment on above: Immature Granulocyte Count (IG) includes promyelocytes, myelocytes and metamyelocytes but does not include bands. Percent differential counts (%) should be interpreted in the context of the absolute cell counts (cells/L). Laboratory - Chemistry and C hemistry - challengeon 02-15-2023 Albumin BCP dye [Mass/Vol] 4.2 g/dL 3.4 - 5.0 [place] [address] Work Phone: ALT With P-5'-P [Catalytic activity/Vol] 19 U/L 10 - 52 [place] [address] Work Phone: Comment on above: Patients treated wit h Sulfasalazine may generate falsely decreased results for ALT. AST With P-5'-P [Catalytic activity/Vol] 15 U/L 9 - 39 [place] [address] Work Phone: CO2 [Moles/Vol] 33 mmol/L above high threshold 21 - 32 [place] [address] Work Phone: No Panel Informationon 02-15 >90 >90 [place] [address] Work Phone: Comment on above: CALCULATIONS OF ROHAN MATED GFR ARE PERFORMED USING THE 2020 CKD-EPI STUDY REFIT EQUATION WITHOUT THE RACE VARIABLE FOR THE IDMS-TRACEABLE CREATININE METHODS.https://jasn.asnjournals.org/content//ASN .7173043317 Office Visit (Urology)on Follow-up visit Diagnoses/Problems Assessed Elevated PSA (790.93) (R97.20) Benign prostatic hyperplasia with urinary obstruction and other lower urinary tract symptoms (600.21) (N40.1,N13.8) Nocturia (788.43) (R35.1) Non-smoker (V49.89) (Z78.9) Patient Discussion/Summary Treatment options for LUTS reviewed Discussed timed voiding. Discussed fluid and caffeine intake Myrbetriq Rx refilled Flomax Rx refilled Lifestyle change to help prevent UTIs discussed. Encouraged fluid intake. Continue Methenimine Lifestyle change to help prevent UTIs discussed. Encouraged fluid intake. All available PSA values reviewed, Options discussed. Questions answered. Diet changes for prostate health discussed and educational information given. Pros/Cons of prostate health supplements discussed. F/u 1 year Chief Complaint 6 month w/ psa History of Present IllnessPatient is here for 6 month f/u for recurrent UTI'S. Methenamine BID for frequent UTI's..... LUTs are chronic and mild. Having frequency. Denies urgency. Weak stream at times... Denies dysuria and hematuria..CYSTO done in 07/05... Nocturia x1 but wakes up wet.. Caffeine does worsen LUTs.. Myrbetriq and Flomax for LUTs..Spinal Stenosis Sx 2-3 years ago...Most recent PSA was 1.00 on 02/03. Review of Systems Constitutional: No fever, No chills. Eye: Negative. Ear/Nose/Mouth/Throat: Negative. Respiratory: No shortness of breath, No cough. Cardiovascular: No chest pain, No peripheral edema. Gastrointestinal: No nausea, Genitourinary: Negative except as documented in history of present illness. Hematology/Lymphatics: Patient denies being on blood thinners.. Endocrine: Negative. Immunologic: Not immunocompromised. Musculoskeletal: Negative Integumentary: Negative. Neurologic: Alert and oriented X4. Psychiatric: Negative. Active Problems Problems Benign prostatic hyperplasia with urinary obstruction and other lower urinary tract symptoms (600.21) (N40.1,N13.8) Bilateral leg weakness (729.89) (R29.898) Cervical stenosis of spinal canal (723.0) (M48.02) Frequent UTI (599.0) (N39.0) Gallbladder abscess (575.0) (K81.0) General weakness (780.79) (R53.1) Iron deficiency anemia due to chronic blood loss (280.0) (D50.0) Oral phase dysphagia (787.21) (R13.11) Osteoarthritis of spine with radiculopathy, cervical region (721.0) (M47.22) S/P cervical spinal fusion (V45.4) (Z98.1) Urinary frequency (788.41) (R35.0) Urinary incontinence (788.30) (R32) Past Medical History Problems History of elevated prostate specific antigen (PSA) (V13.89) (Z87.898) History of intestinal obstruction (V12.79) (Z87.19) Surgical History Problems History of Abdominal surgery History of Spinal surgery Family History Mother No pertinent family history Father No pertinent family history Social History Problems No alcohol use No illicit drug use Non-smoker (V49.89) (Z78.9) Patient has guardian Allergies Medication No Known Drug Allergies Recorded By: Jennifer Datlon; 08/25/2022 4:44:23 PM Current Meds Medication NameInstruction Atorvastatin Calcium 10 MG Oral Tablet clonazePAM 1 MG Oral Tablet Famotidine 20 MG Oral Tablet Ferrous Sulfate 325 MG CAPS Folic Acid 1 MG Oral Tablet Lacosamide 200 MG Oral Tablet levETIRAcetam 500 MG Oral Tablet Levothyroxine Sodium 100 MCG Oral Capsule Methenamine Hippurate 1 GM Oral TabletTAKE 1 GM Twice daily Metoprolol Tartrate 25 MG Oral Tablet Myrbetriq 25 MG Oral Tablet Extended Release 24 HourTake 1 tablet daily Myrbetriq 25 MG Oral Tablet Extended Release 24 Hour PARoxetine HCl - 10 MG Oral Tablet PHENobarbital 16.2 MG Oral Tablet PHENobarbital 32.4 MG Oral Tablet Phenytoin Sodium Extended 100 MG Oral Capsule QUEtiapine Fumarate 25 MG Oral Tablet QUEtiapine Fumarate 300 MG Oral Tablet Senna 8.6 MG Oral Tablet Tamsulosin HCl - 0.4 MG Oral CapsuleTAKE 1 CAPSULE Bedtime Tamsulosin HCl - 0.4 MG Oral Capsule Vitamin B12 TABS Vitamin D3 25 MCG Oral Tablet Vitals Vital Signs Recorded: 08Feb2023 10:02AM Lsirwq986 lb BMI Idsezfxogo28.58 kg/m2 BSA Calculated1.98 Tobacco Usec) Screening not indicated PHQ-2 Patient Declined/Screening not indicatedYes Falls Screening (Age 18+)a) No falls within the last year Physical Exam A/O x 3 in No apparent distress. in wheelchair Constitutional: General appearance normal Respiratory: Respiratory effort is normal Gastrointestinal:Abdome n is not tender Genitourinary: Kidneys: Not palpable Bilaterally Bladder: Not palpable or tender Scrotum: No mass. No Hydrocele Epididymis: No spermatocele. Not tender Testicles: no mass Urethra: No Discharge Penis: WNL...No lesions Prostate:Unable to position Signatures Electronically signed by : Shashank Padilla II, MD; Feb 08 2023 10:11AM EST (Author) Normal [employer] Tobacco Screening.on 023 Fall risk assessment a) No falls within the last year [facility] Work Phone: Tobacco use status CPHS c) Screening not indicated [facility] Work Phone: Tobacco Screening. Yes [facility] Work Phone: Prostate Specific Antigenon 01-13-2023 Prostate specific Ag [Mass/Vol] 1.00 ng/mL Normal 0.00 - 4.00 [facility] HC 232 DO Work Phone: Comment on above: Reference Range: 0.0 0 - 4.00The FDA requires that the method used for PSA assay be reported to the physician. Values obtained with different assay methods must not be used interchangeably. This testwas performed at [facility] using the Access Optimum Magazinebritech PSA assay is a two-site immunoenzymatic sandwich assay. The assay is approved for measurement of prostate-specific antigen (PSA)in serum and may be used in conjunction with a digital rectal examination in men 50 years and older as an aid in detection of prostate cancer.0-Hylpv-bfuqdpcjw inhibitors (e.g. Proscar, Finasteride, Avodart, Dutasteride and Zeina) for the treatment of BPH have been shown to lower PSA levels by an average of 50% after 6 months of treatment. Result Comment: The FDA requires that the method used for PSA assay be reported to the physician. Values obtained with different assay methods must not be used interchangeably. This test was performed at [facility] using the Access Hybritech PSA assay is a two-site immunoenzymatic sandwich assay. The assay is approved for measurement of prostate-specific antigen (PSA)in serum and may be used in conjunction with a digital rectal examination in men 50 years and older as an aid in detection of prostate cancer. 9-Dkkrs-xinskqsiz inhibitors (e.g. Proscar, Finasteride, Avodart, Dutasteride and Zeina) for the treatment of BPH have been shown to lower PSA levels by an average of 50% after 6 months of treatment. Performed By: #### U [facility] #### [facility] [address] [place] [address] CT ABDOMEN AND PELVIS W IV C [facility] 10-14-2022 CT ABDOMEN AND PELVIS W IV CONTRAST Patient Name: PANCHO MCPHERSON STUDY: CT ABDOMEN AND PELVIS W IV CONTRAST; 10/14/2022 3:03 pm INDICATION: Follow-up gallbladder abscess K81.0: Gallbladder abscess. COMPARISON: CT angio chest for PE and CT abdomen pelvis dated 09/19/2022 ACCESSION NUMBER(S): [id number] ORDERING CLINICIAN: LUCY HAHN TECHNIQUE: CT of the abdomen and pelvis was performed. Standard contiguous axial images were obtained at 3 mm slice thickness through the abdomen and pelvis. Coronal and sagittal reconstructions at 3 mm slice thickness were performed. 90 ml of contrast Omnipaque 350 were administered intravenously without immediate complication. 900 mL of Gastrografin was administered. FINDINGS: LOWER CHEST: There is ground-glass and reticular opacities within the left greater than right lung dependent regions, likely representing atelectasis. No pleural effusion or lung consolidation. The heart is normal in size without pericardial effusion. Positive oral contrast is noted layering within the visualized distal esophagus. Otherwise the distal esophagus is unremarkable. ABDOMEN: LIVER: The liver is normal in size. No evidence of focal liver lesions. BILE DUCTS: The intrahepatic and extrahepatic ducts are not dilated. GALLBLADDER: Similar mild thickening and irregular contour with possible folds or septations noted in the gallbladder. Redemonstration of a defect along the gallbladder fundus (series 4, image 53) communicating with a right subhepatic peripherally enhancing fluid collection which measures approximately 3.7 x 1.9 x 3.4 cm (AP by TV by CC) (series 4, image 54), previously measured 4.8 x 2.2 x 3.4 cm.. There is surrounding inflammatory changes/stranding which is decreased from prior. PANCREAS: The pancreas appears unremarkable without evidence of ductal dilatation or masses. SPLEEN: The spleen is normal in size. ADRENAL GLANDS: Bilateral adrenal glands appear normal. KIDNEYS AND URETERS: The kidneys are normal in size. Stable bilateral hepatic cysts. Additionally, there are several too small to completely characterize renal cortical hypodensities which are statistically favored to represent benign renal cysts.. Stable 4 mm nonobstructive left renal lower pole calculi. Interval resolution of previously seen mild bilateral hydroureteronephrosis. PELVIS: BLADDER: The bladder is incompletely distended. There is disproportionate amount of circumferential mural thickening. No significant perivesical stranding. REPRODUCTIVE ORGANS: No prostatomegaly. BOWEL: Surgical changes are seen within the cecum. There is positive oral contrast within the stomach extending to the level of the distal ileum. Similar mild circumferential mural thickening of the gastric antrum/pylorus is likely reactive secondary to adjacent inflammatory changes. There is fluid-filled distention of the distal small and large bowel without focal transition point, likely representing ileus. The small and large bowel are normal in caliber and demonstrate no wall thickening. The appendix appears normal. VESSELS: Mild atherosclerosis calcification of the aorta and its branching vessels. There is no aneurysmal dilatation of the abdominal aorta. The IVC appears normal PERITONEUM/RETROPERITON EUM/LYMPH NODES: Loculated right subhepatic fluid collection as described above. Small volume free fluid in the right paracolic gutter, likely reactive. There is no free air.. Multiple prominent retroperitoneal and upper abdominal mesenteric lymph nodes appears stable to slightly increased from prior and likely reactive in nature. BONES AND ABDOMINAL WALL: No suspicious osseous lesions are identified. No acute osseous abnormalities. Multiple remote right rib fractures unchanged from previous. Stable 1.8 cm lytic lesion in the T10 vertebral body, likely represents an intra osseous hemangioma.. Midline abdominal laparotomy scar. Fat and fluid containing right inguinal hernia.. IMPRESSION: 1. Redemonstration of a irregular configuration of the gallbladder with appearance of wall thickening and inflammatory changes predominantly along the fundus as well as possible septations or folds. Slight interval decrease in the adjacent peripherally enhancing rim fluid collection measuring up to 3.7 cm adjacent to the gallbladder fundus with an apparent fistulous connection with the gallbladder. Findings are concerning for pericholecystic abscess. Clinical correlation and further evaluation is suggested. 2. Stable postsurgical changes in the cecum with intact anastomosis. Interval increase in fluid-filled distended loops of small and large bowel without a discrete transition point suggestive of ileus, however enterocolitis can not be ruled out. If patient has been on antibiotics, C diff colitis should be ruled out 3. Additional findings a (more content not included)... Normal [facility] CREATININEon 10-13-2022 Creatinine [Mass/Vol] 0.66 mg/dL Normal 0.50 - 1.30 [facility] Comment on above: Performed By: #### C REAT #### [address] [address] eGFR MALE >90 Normal >90 [facility] Comment on above: Result Comment: CALC ULATIONS OF ESTIMATED GFR ARE PERFORMED USING THE 2020 CKD-EPI STUDY REFIT EQUATION WITHOUT THE RACE VARIABLE FOR THE IDMS-TRACEABLE CREATININE METHODS. https://jasn.asnjournals.org/content/early//ASN.8370508 988 Performed By: #### C REAT #### [address] [address] HEPATIC FUNCTION PANELon Albumin [Mass/Vol] 4.7 g/dL Normal 3.4 - 5.0 [facility] Comment on above: Performed By: #### H EPFP #### [address] [address] ALP [Catalytic activity/Vol] 137 U/L High 33 - 136 [facility] Comment on above: Performed By: #### H EPFP #### [address] [address] ALT [Catalytic activity/Vol] 34 U/L Normal 10 - 52 [facility] Comment on above: Result Comment: Casandra ents treated with Sulfasalazine may generate falsely decreased results for ALT. Performed By: #### H EPFP #### [address] [address] AST [Catalytic activity/Vol] 27 U/L Normal 9 - 39 [facility] Comment on above: Performed By: #### H EPFP #### [address] [address] Bilirubin [Mass/Vol] 0.3 mg/dL Normal 0.0 - 1.2 [facility] Comment on above: Performed By: #### H EPFP #### [address] [address] Bilirubin.indirect [Mass/Vol] 0.1 mg/dL Normal 0.0 - 0.3 [facility] Comment on above: Performed By: #### H EPFP #### [address] [address] Protein [Mass/Vol] 8.4 g/dL High 6.4 - 8.2 [facility] Comment on above: Performed By: #### H EPFP #### [address] [address] UREA NITROGENon 10-13-2022 Urea nitrogen [Mass/Vol] 21 mg/dL Normal [facility] Comment on above: Performed By: #### U RINC #### [facility] [address] [place] [address] Initial Visit (Gastroenterol ogy)on 10-06-2022 Initial Visit (Gastroenterology) Diagnoses/Problems Assessed Iron deficiency anemia due to chronic blood loss (280.0) (D50.0) Gallbladder abscess (575.0) (K81.0) Orders Gallbladder abscess CT Abdomen and Pelvis with IV Contrast; Status:Hold For - Scheduling; Requested for:06Oct2022; Perform: Radiology Services Imaging; Due:04Jan2023;Ordered; For:Gallbladder abscess; Ordered By:Lucy Hahn; Patient taking Metformin or Derivatives? : No Radiologist to Determine Optimal Study : Y What are the patient's signs and symptoms? : Follow-up gallbladder abscess Hepatic Function Panel; Status:Active; Requested for:06Oct2022; Perform:Lab Services - Lab To Draw (Blood Test); Due:04Jan2023;Ordered; For:Gallbladder abscess; Ordered By:Lucy Hahn; Provider Impressions 62-year-old male with iron deficiency anemia since beginning iron replacement iron levels have improved but anemia persists. He is continue to have rectal bleeding. Patient does have power of civil rights attorney with his sister sister is currently not with patient. Additionally has abnormal gallbladder with abscess on prior CT imaging September 19. Recommend we repeat a CT abdomen pelvis repeat liver panel if abscess still present may need percutaneous drainage and/or referral to general surgery. Would recommend EGD and colonoscopy which can be delayed until gallbladder work-up is completed. I will discuss need for EGD and colonoscopy with his sister, Sherly who is his power of civil rights attorney. I will have this conversation with her once we have his repeat CT scan and hand. Chief Complaint NPV in office today for constipation, + occult blood, and EUGENE. Patient was seen at [facility] for a head lac but incidental finding of possible abscess on gallbladder. Caregivers state he on occasional will not want to eat due to not having a BM, occasional constipation. Patient will some bright red rectal bleeding with bowel movements. No recent colonoscopy, previous PCP wanted a colonoscopy but sister mentioned a nuclear medicine GI bleed study. History of Present IllnessErnienis is a pleasant 62-year-old male who is referred for rectal bleeding anemia. Patient was found to be anemic back in February 2022 when he presented to the ER hemoglobin at that time was 9.7 iron studies done around that time showed a serum iron of 14. With iron replacement his serum iron is come up to 78 and his current hemoglobin is now 13.2. He is having intermittent rectal bleeding which staff believes is a hemorrhoid. Patient lives in a intermediate has longstanding history of seizures currently controlled with Keppra, Klonopin and phenobarbital. He was in the emergency room and early September for fall work-up at that time included CT of his head and CT abdomen pelvis. CT abdomen pelvis revealed irregular contour of the gallbladder with wall thickening and inflammatory changes along with a discrete fluid collection measuring 4.8 cm adjacent to the gallbladder fundus. There was what appeared to be a small fistula measuring 5 mm concerning for abscess. General surgery was consulted and felt that he was stable as he had no white count no elevation in transaminases no elevated bilirubin and was actually asymptomatic. No follow-up was scheduled. He did see his family doctor who informed them that I would follow-up on these findings today. He has had no alterations bowel movements averages 1-2 bowel movements daily there is some bleeding if he strains blood is difficult to know if its coating or mixed in with the stool as he is incontinent. He denies any abdominal pain he is eating well denies any fevers. Review of Systems Constitutional: no fever, no chills, not feeling tired and no recent weight loss. ENT: no lymphadenopathy. Cardiovascular: no shortness of breath and no chest pain. Respiratory: no cough. Gastrointestinal: as noted in HPI. Musculoskeletal: no joint swelling. Integumentary: no rashes, no skin lesions and was no jaundiced. All other systems have been reviewed and are negative for complaint. Active Problems Problems Benign prostatic hyperplasia with urinary obstruction and other lower urinary tract symptoms (600.21) (N40.1,N13.8) Bilateral leg weakness (729.89) (R29.898) Cervical stenosis of spinal canal (723.0) (M48.02) Elevated prostate specific antigen (PSA) (790.93) (R97.20) Frequent UTI (599.0) (N39.0) General weakness (780.79) (R53.1) Oral phase dysphagia (787.21) (R13.11) Osteoarthritis of spine with radiculopathy, cervical region (721.0) (M47.22) S/P cervical spinal fusion (V45.4) (Z98.1) Urinary frequency (788.41) (R35.0) Urinary incontinence (788.30) (R32) Past Medical History Problems History of intestinal obstruction (V12.79) (Z87.19) Surgical History Problems History of Abdominal surgery History of Spinal surgery Family History Mother No pertinent family history Father No pertinent family history Social History Problems No alcohol use No illicit drug use Non-smoker (V49.89) (Z78.9) Patient has g (more content not included)... Normal [facility] Clinical Event Note-ED Post Discharge Result Follow Up: Compon 09-23-2022 Clinical Event Note-ED Post Discharge Result Follow Up: Comp Clinical Event: Clinical Event Note: TopicED Post Discharge Result Follow Up: Complete Multiple Organisms Present, Probable Contaminant Details Number Contacted: [facility] ([phone]) said they don't have the patient there. LVM for primary phone number. Second attempt was made to contact patient regarding a positive urine culture that was taken during their recent emergency room visit. This is a non-life threatening result and the patient is being treated appropriately. At this time, will consider culture follow-up complete. If there any questions for the ED Post-Discharge Culture Follow Up Team, please contact [phone]. River Hurst PGY-1 Flight Paramedic [facility] Electronic Signatures: ArisThai Babatunde Marie (PharmD) (Signed 23-Sep-2022 15:04) Authored: Clinical Event Note Nai Carrillo (PharmD) (Signed 26-Sep-2022 08:34) Co-Signer: Clinical Event Note Last Updated: 26-Sep-2022 08:34 by Nai Carrillo (PharmD) [facility] Clinical Event Note-ED Post Discharge Result Follow Up: Atteon 09-22-2022 Clinical Event Note-ED Post Discharge Result Follow Up: Atte Clinical Event: Clinical Event Note: TopicED Post Discharge Result Follow Up: Attempt # 1 pending : Urine: multiple organisms, contaminated Details Contacted [place] [facility] home and had to leave a message ([phone]) Attempted to contact patient regarding a positive urine culture that was taken during their recent emergency room visit. This is a non-life threatening result and the patient is being treated appropriately. Will try to contact the patient again in 24 hours. If there are any other questions for the ED Post-Discharge Culture Follow Up Team, please contact [phone]. . Ethel Strange PharmD, [facility] PGY-1 Flight Paramedic [facility] Electronic Signatures: Nai Carrillo (PharmCampos) (Signed 23-Sep-2022 08:23) Co-Signer: Clinical Event Note Ethel Strange ([facility]) (Signed 22-Sep-2022 16:22) Authored: Clinical Event Note Last Updated: 23-Sep-2022 08:23 by Nai Carrillo (PharmD) [facility] APTTon 09-19-2022 aPTT Coag (Bld) [Time] 29 s Normal 26 - 39 [facility] Comment on above: Result Comment: THE APTT IS NO LONGER USED FOR MONITORING UNFRACTIONATED HEPARIN THERAPY. FOR MONITORING HEPARIN THERAPY, USE THE HEPARIN ASSAY. Performed By: #### A PTT #### [facility] [address] [place] [address] Activated Partial Thrombopla stin Timeon 09-19-2022 aPTT Coag (PPP) [Time] 29 s 26 - 39 [facility] 120 Work Phone: Comment on above: THE APTT IS NO LONGE R USED FOR MONITORING UNFRACTIONATED HEPARIN THERAPY. FOR MONITORING HEPARIN THERAPY, USE THE HEPARIN ASSAY. CBC AND DIFFERENTIALon 09-19 % AUTOMATED IMMATURE GRAN 0.3 % Normal 0.0 - 0.9 [facility] Comment on above: Result Comment: Elsa ture Granulocyte Count (IG) includes promyelocytes, myelocytes and metamyelocytes but does not include bands. Percent differential counts (%) should be interpreted in the context of the absolute cell counts (cells/L). Performed By: #### U ARFX #### [address] [address] Basophils (Bld) [#/Vol] 0.03 10*3/uL Normal 0.00 - 0.10 [facility] Comment on above: Performed By: #### U ARFX #### [address] [address] Basophils/100 WBC (Bld) 0.3 % Normal 0.0 - 2.0 [facility] Comment on above: Performed By: #### U ARFX #### [address] [address] Eosinophils (Bld) [#/Vol] 0.19 10*3/uL Normal 0.00 - 0.70 [facility] Comment on above: Performed By: #### U ARFX #### [address] [address] Eosinophils/100 WBC (Bld) 2.0 % Normal 0.0 - 6.0 [facility] Comment on above: Performed By: #### U ARFX #### [address] [address] Erythrocyte distribution width (RBC) [Ratio] 12.7 % Normal 11.5 - 14.5 [facility] Comment on above: Performed By: #### U ARFX #### [address] [address] Hematocrit (Bld) [Volume fraction] 39.8 % Low 41.0 - 52.0 [facility] Comment on above: Performed By: #### U ARFX #### [address] [address] Hemoglobin (Bld) [Mass/Vol] 13.2 g/dL Low 13.5 - 17.5 [facility] Comment on above: Performed By: #### U ARFX #### [address] [address] Lymphocytes (Bld) [#/Vol] 2.26 10*3/uL Normal 1.20 - 4.80 [facility] Comment on above: Performed By: #### U ARFX #### [address] [address] Lymphocytes/100 WBC (Bld) 23.9 % Normal 13.0 - 44.0 [facility] Comment on above: Performed By: #### U ARFX #### [address] [address] MCHC (RBC) [Mass/Vol] 33.2 g/dL Normal 32.0 - 36.0 [facility] Comment on above: Performed By: #### U ARFX #### [address] [address] MCV (RBC) [Entitic vol] 93 fL Normal 80 - 100 [facility] Comment on above: Performed By: #### U ARFX #### [address] [address] Monocytes (Bld) [#/Vol] 0.92 10*3/uL Normal 0.10 - 1.00 [facility] Comment on above: Performed By: #### U ARFX #### [address] [address] Monocytes/100 WBC (Bld) 9.7 % Normal 2.0 - 10.0 [facility] Comment on above: Performed By: #### U ARFX #### [address] [address] Neutrophils (Bld) [#/Vol] 6.04 10*3/uL Normal 1.20 - 7.70 [facility] Comment on above: Result Comment: Perc ent differential counts (%) should be interpreted in the context of the absolute cell counts (cells/L). Performed By: #### U ARFX #### [place] [id number] Neutrophils/100 WBC (Bld) 63.8 % Normal 40.0 - 80.0 [facility] Comment on above: Performed By: #### U ARFX #### [place] [id number] Platelets (Bld) [#/Vol] 233 10*3/uL Normal 150 - 450 [facility] Comment on above: Performed By: #### U ARFX #### [place] [id number] RBC 4.27 x10E12/L Low 4.50 - 5.90 [facility] Comment on above: Performed By: #### U ARFX #### [place] [id number] WBC (Bld) [#/Vol] 9.5 10*3/uL Normal 4.4 - 11.3 [facility] Comment on above: Performed By: #### U ARFX #### [place] [id number] COMPREHENSIVE PANELon 2022 Albumin [Mass/Vol] 4.0 g/dL Normal 3.4 - 5.0 [facility] Comment on above: Performed By: #### C MP #### [place] [id number] ALP [Catalytic activity/Vol] 97 U/L Normal 33 - 136 [facility] Comment on above: Performed By: #### C MP #### [address] [address] ALT [Catalytic activity/Vol] 17 U/L Normal 10 - 52 [facility] Comment on above: Result Comment: Casandra ents treated with Sulfasalazine may generate falsely decreased results for ALT. Performed By: #### C MP #### [place] [id number] Anion gap [Moles/Vol] 10 mmol/L Normal 10 - 20 [facility] Comment on above: Performed By: #### C MP #### [address] [address] AST [Catalytic activity/Vol] 14 U/L Normal 9 - 39 [facility] Comment on above: Performed By: #### C MP #### [address] [address] Bilirubin [Mass/Vol] 0.2 mg/dL Normal 0.0 - 1.2 [facility] Comment on above: Performed By: #### C MP #### [address] [address] Calcium [Mass/Vol] 9.3 mg/dL Normal 8.6 - 10.3 [facility] Comment on above: Performed By: #### C MP #### [address] [address] Chloride [Moles/Vol] 98 mmol/L Normal 98 - 107 [facility] Comment on above: Performed By: #### C MP #### [address] [address] Creatinine [Mass/Vol] 0.45 mg/dL Low 0.50 - 1.30 [facility] Comment on above: Performed By: #### C MP #### [address] [address] eGFR MALE >90 Normal >90 [facility] Comment on above: Result Comment: CALC ULATIONS OF ESTIMATED GFR ARE PERFORMED USING THE 2020 CKD-EPI STUDY REFIT EQUATION WITHOUT THE RACE VARIABLE FOR THE IDMS-TRACEABLE CREATININE METHODS. https://jasn.asnjournals.org/content//ASN.2385603 988 Performed By: #### C MP #### [address] [address] Glucose [Mass/Vol] 105 mg/dL High 74 - 99 [facility] Comment on above: Performed By: #### C MP #### [address] [address] HCO3 (Bld) [Moles/Vol] 32 mmol/L Normal 21 - 32 [facility] Comment on above: Performed By: #### C MP #### [address] [address] Potassium [Moles/Vol] 3.5 mmol/L Normal 3.5 - 5.3 [facility] Comment on above: Performed By: #### C MP #### [address] [address] Protein [Mass/Vol] 7.4 g/dL Normal 6.4 - 8.2 [facility] Comment on above: Performed By: #### C MP #### [address] [address] Sodium [Moles/Vol] 136 mmol/L Normal 136 - 145 [facility] Comment on above: Performed By: #### C MP #### [address] [address] Urea nitrogen [Mass/Vol] 20 mg/dL Normal 6 - 23 [facility] Comment on above: Performed By: #### C MP #### [address] [address] [address] ABDOMEN AND PELVIS W IV C [facility] 09-19-2022 CT ABDOMEN AND PELVIS W IV CONTRAST Patient Name: PANCHO MCPHERSON STUDY: CT ABDOMEN AND PELVIS W IV CONTRAST; 09/19/2022 9:23 pm INDICATION: fall . COMPARISON: None. ACCESSION NUMBER(S): [id number] ORDERING CLINICIAN: LEILANI REYNOLDS TECHNIQUE: Axial CT images of the abdomen and pelvis with coronal and sagittal reconstructed images obtained after intravenous administration of 90 mL Omnipaque 350 FINDINGS: LOWER CHEST: Dedicated chest imaging has been performed and reported separately. BONES: Degenerative changes present. Partially imaged multilevel remote rib fractures. ABDOMINAL WALL: Within normal limits. ABDOMEN: LIVER: Inflammatory changes in stranding noted along the inferior gallbladder fossa. BILE DUCTS: Normal caliber. GALLBLADDER: The gallbladder appears mildly thickened and irregular in contour with possible folds or septations noted. There is a small 5 mm neck noted along the gallbladder fundus extending to a adjacent peripherally enhancing collection which measures up to 4.8 x 2.2 x 3.4 cm (AP by T by CC). There is adjacent stranding and inflammatory changes noted. No discrete intrahepatic collection identified. PANCREAS: Within normal limits. SPLEEN: Probable accessory splenule. ADRENALS: Within normal limits. KIDNEYS and URETERS: A 2 mm punctate nonobstructing left lower pole renal calculus noted. Mild bilateral hydroureteronephrosis noted to the level of the urinary bladder. Mild wall thickening noted in the distal ureters, slightly greater on the left. Probable left lower pole renal cyst. VESSELS: Atherosclerotic calcifications without aneurysmal dilatation seen. RETROPERITONEUM: No pathologically enlarged retroperitoneal lymph nodes. PELVIS: REPRODUCTIVE ORGANS: No pelvic masses. BLADDER: The urinary bladder is mildly distended with mild wall thickening. BOWEL: Surgical changes present along the cecum. Moderate stool burden with inspissated fecal material. Mild wall thickening and reactive changes about the gastric antrum. No dilated loops of small bowel identified. Evaluation partially degraded due to motion artifact. PERITONEUM: Otherwise no fluid collection, ascites or free air. IMPRESSION: Irregular configuration of the gallbladder with appearance of wall thickening and inflammatory changes predominately along the fundus as well as possible septations or folds. A discrete fluid collection measuring up to 4.8 cm is present adjacent to the gallbladder fundus with appearance of a small connecting neck or fistula measuring up to 5 mm. Findings are concerning for pericholecystic abscess. Clinical correlation and further evaluation suggested. Mild wall thickening with mild bilateral hydroureteronephrosis with mild distal ureteral wall the prominence. Clinical correlation for cystitis/nephritis/UTI recommended. Postsurgical changes, moderate stool burden, mild left nephrolithiasis and additional findings as detailed. Electronically signed by: DO Gauri NUNEZ [facility] CT ANGIO CHEST FOR PEon 020 CT ANGIO CHEST FOR PE Patient Name: PANCHO MCPHERSON STUDY: CT ANGIO CHEST FOR PE; 09/19/2022 9:23 pm INDICATION: fall . COMPARISON: None. ACCESSION NUMBER(S): [id number] ORDERING CLINICIAN: LEILANI REYNOLDS TECHNIQUE: Contiguous axial images of the chest were obtained after the intravenous administration of 90 mL Omnipaque 350 using angiographic PE protocol. Coronal and sagittal reformatted images were reconstructed from the axial data. MIP images were created and reviewed. FINDINGS: MEDIASTINUM AND LYMPH NODES: No enlarged intrathoracic or axillary lymph nodes. No pneumomediastinum. VESSELS: Normal caliber aorta without aortic atherosclerosis. Evaluation of the pulmonary arteries is limited due to respiratory motion. No definite filling defect is seen to the proximal segmental level. HEART: Cardiomegaly. No significant coronary artery calcifications. No significant pericardial effusion. LUNG, AIRWAYS, AND PLEURA: Motion artifact partially limits evaluation of the lung parenchyma. Parents of scattered atelectasis or scarring. No consolidation, pulmonary edema, pleural effusion, or pneumothorax. OSSEOUS STRUCTURES/CHEST WALL: Remote bilateral rib fractures. No acute osseous abnormality. UPPER ABDOMEN/OTHER: Dedicated abdominal imaging has been performed and will be reported separately. IMPRESSION: No acute pulmonary embolism or other acute cardiopulmonary process within constraints of respiratory motion. Electronically signed by: ARIK MIRANDA DO Normal [facility] CT Abdomen and Pelvis with I V Contraston 09-19-2022 CT Abdomen and Pelvis W contrast IV Normal [facility] Work Phone: CT C Spine without Contrasto n 09-19-2022 CT Cervical spine WO contrast Normal [facility] 120 Work Phone: CT C-SPINE WO CONTRASTon CT C-SPINE WO CONTRAST Patient Name: PANCHO MCPHERSON STUDY: CT HEAD WO CONTRAST; CT C-SPINE WO CONTRAST; 09/19/2022 9:23 pm INDICATION: fall . COMPARISON: None. 07/22/2022 ACCESSION NUMBER(S): [id number]; [id number] ORDERING CLINICIAN: LEILANI REYNOLDS TECHNIQUE: Noncontrast CT images of head. 3D reconstructions were performed on an independent workstation and provided for review.. Axial noncontrast CT images of the cervical spine with coronal and sagittal reconstructed images. FINDINGS: BRAIN PARENCHYMA: Generalized parenchymal volume loss noted with concordant ventricular enlargement. Non-specific white matter changes noted, which may be related to small vessel disease. No mass effect or midline shift. HEMORRHAGE: No acute intracranial hemorrhage. VENTRICLES and EXTRA-AXIAL SPACES: The ventricles, sulci and basal cisterns enlarged, concordant with parenchymal volume loss. EXTRACRANIAL SOFT TISSUES: Scattered regions of soft tissue stranding or thickening. PARANASAL SINUSES/MASTOIDS: The visualized paranasal sinuses and mastoid air cells are aerated. CALVARIUM: No depressed skull fracture. Remote dystrophic changes of the nasal bones and nasal septum. OTHER FINDINGS: None. CERVICAL SPINE: ALIGNMENT: Craniocervical and facet joint alignment is grossly maintained. VERTEBRAE: The dens process is intact. Postsurgical changes with ACDF from C3 through C5. Hardware appears intact without evidence of periprosthetic lucency. No acute osseous fracture identified. SPINAL CANAL: No critical spinal canal stenosis. PREVERTEBRAL SOFT TISSUES: No prevertebral soft tissue swelling. LUNG APICES: Imaged portion of the lung apices are within normal limits. OTHER FINDINGS: None. IMPRESSION: No acute intracranial hemorrhage or mass effect. No acute fracture or traumatic subluxation of the cervical spine. Nonspecific white matter changes and parenchymal volume loss. Status post ACDF and degenerative changes in Electronically signed by: ARIK MIRANDA DO [facility] CT HEAD WO CONTRASTon 2022 CT HEAD WO CONTRAST Patient Name: PANCHO MCPHERSON STUDY: CT HEAD WO CONTRAST; CT C-SPINE WO CONTRAST; 09/19/2022 9:23 pm INDICATION: fall . COMPARISON: None. 07/22/2022 ACCESSION NUMBER(S): [id number]; [id number] ORDERING CLINICIAN: LEILANI REYNOLDS TECHNIQUE: Noncontrast CT images of head. 3D reconstructions were performed on an independent workstation and provided for review.. Axial noncontrast CT images of the cervical spine with coronal and sagittal reconstructed images. FINDINGS: BRAIN PARENCHYMA: Generalized parenchymal volume loss noted with concordant ventricular enlargement. Non-specific white matter changes noted, which may be related to small vessel disease. No mass effect or midline shift. HEMORRHAGE: No acute intracranial hemorrhage. VENTRICLES and EXTRA-AXIAL SPACES: The ventricles, sulci and basal cisterns enlarged, concordant with parenchymal volume loss. EXTRACRANIAL SOFT TISSUES: Scattered regions of soft tissue stranding or thickening. PARANASAL SINUSES/MASTOIDS: The visualized paranasal sinuses and mastoid air cells are aerated. CALVARIUM: No depressed skull fracture. Remote dystrophic changes of the nasal bones and nasal septum. OTHER FINDINGS: None. CERVICAL SPINE: ALIGNMENT: Craniocervical and facet joint alignment is grossly maintained. VERTEBRAE: The dens process is intact. Postsurgical changes with ACDF from C3 through C5. Hardware appears intact without evidence of periprosthetic lucency. No acute osseous fracture identified. SPINAL CANAL: No critical spinal canal stenosis. PREVERTEBRAL SOFT TISSUES: No prevertebral soft tissue swelling. LUNG APICES: Imaged portion of the lung apices are within normal limits. OTHER FINDINGS: None. IMPRESSION: No acute intracranial hemorrhage or mass effect. No acute fracture or traumatic subluxation of the cervical spine. Nonspecific white matter changes and parenchymal volume loss. Status post ACDF and degenerative changes in Electronically signed by: ARIK MIRANDA DO Normal [facility] CT Head without Contraston 0 09-19-2022 CT Head limited WO contrast Normal [facility] [place] [address] Work Phone: Complete Blood Count + Diffe rentialon 09-19-2022 Basophils/100 WBC (Bld) 0.3 % 0.0 - 2.0 [facility] Work Phone: Erythrocyte distribution width (RBC) [Ratio] 12.7 % See Below [facility] Work Phone: Comment on above: Reference Range: 11. 5 - 14.5 Hematocrit (Bld) [Volume fraction] 39.8 % below low threshold See Below [place] [address] Work Phone: Comment on above: Reference Range: 41. 0 - 52.0 Hemoglobin (Bld) [Mass/Vol] 13.2 g/dL below low threshold See Below [facility] Work Phone: Comment on above: Reference Range: 13. 5 - 17.5 Lymphocytes/100 WBC (Bld) 23.9 % See Below [place] [address] Work Phone: Comment on above: Reference Range: 13. 0 - 44.0 MCHC (RBC) [Mass/Vol] 33.2 g/dL See Below [facility] Work Phone: Comment on above: Reference Range: 32. 0 - 36.0 MCV (RBC) [Entitic vol] 93 fL 80 - 100 [facility] Work Phone: Monocytes/100 WBC (Bld) 9.7 % 2.0 - 10.0 [facility] [place] [address] Work Phone: Neutrophils/100 WBC (Bld) 63.8 % See Below [facility] [place] [address] Work Phone: Comment on above: Reference Range: 40. 0 - 80.0 Platelets (Bld) [#/Vol] 233 10*3/uL 150 - 450 [facility] [place] [address] Work Phone: RBC (Bld) [#/Vol] 4.27 {x10E12/L} below low threshold See Below [facility] [place] [address] Work Phone: Comment on above: Reference Range: 4.5 0 - 5.90 WBC (Bld) [#/Vol] 9.5 10*3/uL 4.4 - 11.3 [facility] [place] [address] Work Phone: Complete Blood Count + Differential 0.03 {x10E9/L} See Below [facility] [place] [address] Work Phone: Comment on above: Reference Range: 0.0 0 - 0.10 Complete Blood Count + Differential 0.19 {x10E9/L} See Below [facility] [place] [address] Work Phone: Comment on above: Reference Range: 0.0 0 - 0.70 Complete Blood Count + Differential 0.92 {x10E9/L} See Below [facility] [place] [address] Work Phone: Comment on above: Reference Range: 0.1 0 - 1.00 Complete Blood Count + Differential 2.26 {x10E9/L} See Below [facility] [place] [address] Work Phone: Comment on above: Reference Range: 1.2 0 - 4.80 Complete Blood Count + Differential 6.04 {x10E9/L} See Below [place] [address] Work Phone: Comment on above: Reference Range: 1.2 0 - 7.70 Percent differential counts (%) should be interpreted in the context of the absolute cell counts (cells/L). Complete Blood Count + Differential 2.0 % 0.0 - 6.0 [place] [address] Work Phone: Complete Blood Count + Differential 0.3 % 0.0 - 0.9 [place] [address] Work Phone: Comment on above: Immature Granulocyte Count (IG) includes promyelocytes, myelocytes and metamyelocytes but does not include bands. Percent differential counts (%) should be interpreted in the context of the absolute cell counts (cells/L). Cult, Urineon 09-19-2022 Bacteria identified Cx Nom (U) Abnormal [place] [address] Work Phone: Laboratory - Chemistry and C hemistry - challengeon 09-19-2022 Albumin BCP dye [Mass/Vol] 4.0 g/dL 3.4 - 5.0 [place] [address] Work Phone: ALP [Catalytic activity/Vol] 97 U/L 33 - 136 [place] [address] Work Phone: ALT With P-5'-P [Catalytic activity/Vol] 17 U/L 10 - 52 [place] [address] Work Phone: Comment on above: Patients treated wit h Sulfasalazine may generate falsely decreased results for ALT. Anion gap [Moles/Vol] 10 mmol/L 10 - 20 [place] [address] Work Phone: AST With P-5'-P [Catalytic activity/Vol] 14 U/L 9 - 39 [place] [address] Work Phone: Bilirubin [Mass/Vol] 0.2 mg/dL 0.0 - 1.2 [place] [address] Work Phone: Calcium [Mass/Vol] 9.3 mg/dL 8.6 - 10.3 [facility] 120 Work Phone: Chloride [Moles/Vol] 98 mmol/L 98 - 107 [facility] [place] [address] Work Phone: CO2 [Moles/Vol] 32 mmol/L 21 - 32 -[facility] [place] [address] Work Phone: Creatinine [Mass/Vol] 0.45 mg/dL below low threshold See Below [facility] [place] [address] Work Phone: Comment on above: Reference Range: 0.5 0 - 1.30 Glucose [Mass/Vol] 105 mg/dL above high threshold 74 - 99 [place] [address] Work Phone: Potassium [Moles/Vol] 3.5 mmol/L 3.5 - 5.3 [place] [address] Work Phone: Protein [Mass/Vol] 7.4 g/dL 6.4 - 8.2 -[place] [address] Work Phone: Sodium [Moles/Vol] 136 mmol/L 136 - 145 -[facility] v [place] [address] Work Phone: Urea nitrogen [Mass/Vol] 20 mg/dL 6 - 23 -[place] [address] Work Phone: Laboratory - Coagulationon 0 09-19-2022 INR Coag (PPP) [Relative time] 1.2 {INR} above high threshold 0.9 - 1.1 -[facility] [place] [address] Work Phone: PT Coag (PPP) [Time] 13.6 s above high threshold 9.8 - 13.4 -[facility] [place] [address] Work Phone: No Panel Informationon 09-19 >90 >90 -[facility] 120 Work Phone: Comment on above: CALCULATIONS OF ROHAN MATED GFR ARE PERFORMED USING THE 2020 CKD-EPI STUDY REFIT EQUATION WITHOUT THE RACE VARIABLE FOR THE IDMS-TRACEABLE CREATININE METHODS.https://jasn.asnjournals.org/content//ASN .5037685315 PT/INRon 09-19-2022 PT Coag (PPP) [Time] 13.6 s High 9.8 - 13.4 [facility] Comment on above: Performed By: #### B MP #### [place] [address] PT, INR 1.2 High 0.9 - 1.1 [facility] Comment on above: Performed By: #### B MP #### [address] [address] Provider Note - ED v3on Provider Note - ED v3 Provider Note: Clinical Impression: Chart Review: ED NOTES ED NOTES: ====HPI==== Patient is a 62-year-old male who presents to the emergency department for a fall. Patient presents from [facility]. He was found on the ground by caregiver. Patient states he fell out of his wheelchair but does not know how. Unknown loss of consciousness and unknown time of fall. Patient is not on blood thinners. He is supposed to be wearing a helmet and was not. Patient is unable to provide much of a meaningful history. He denies any complaints PMHX: Schizophrenia, Bowel obstruction, intelectual disability, hypothyroid, cervical spine stenosis, sleep apnea, dyslipidemia Social HX: Never smoker TOBACCO Denies ETOH Denies DRUGS ====Review of Systems==== 10 point system review is negative except for those specifically mentioned in history of present illness ====Physical Exam==== Constitutional/General: Alert and oriented x3, well appearing, nontoxic, and in NAD. Head: Normocephalic, irregular laceration with hematoma to right forehead Eyes: PERRL, EOMI, conjunctive normal, sclera nonicteric, subconjunctival layer is pink. Mouth: Oropharynx clear, handling secretions, no trismus, no asymmetry of the posterior oropharynx or uvular edema Neck: Supple, full ROM, immobilized, no stridor, no crepitus, no meningeal signs. Trachea at midline. Respiratory: Lungs clear to auscultation bilaterally, no wheezes, rales, or rhonchi, not in respiratory distress. Cardiovascular: Regular rate, regular rhythm, no murmurs, gallops, or rubs, 2+ distal pulses. Chest: normal chest wall movement GI: Abdomen soft, nontender, nondistended, no organomegaly, no palpable masses, no rebound, guarding, or rigidity. Musculoskeletal: Moves all extremities x4, warm and well perfused, no clubbing, cyanosis, or edema, cap refill <3 seconds Integument: Skin warm and dry, no rashes. Neurologic: GCS 15, no focal deficits, symmetric strength 5/5 in the upper and lower extremities bilaterally. Psychiatric: Normal affect. ====ED Course and Medical Decision Making==== See MDM section for review of findings & plan of care. Portions of this note were dictated by speech recognition. An attempt at proof reading was made to minimize errors. Minor errors in performance architect may be present. Please call if questions.. HISTORY OF PRESENTING ILLNESS PANCHO is a 62 year old Male and was seen by me at 19-Sep-2022 20:05 for a chief complaint of fall (pt from intermediate, found by caregiver laying on floor. pt states he fell and hit head on wooden floor. unknown loc. ccollar intact. c/o pain to forehead.)(1). Triage Information: Most recent Vital Sign Value Date Temp (F): 97.1 09-19-2022 20:04 Temp (C): 36.1 09-19-2022 20:04 Heart Rate (beats/min): 61 09-19-2022 20:04 Respirations (breaths/min): 16 09-19-2022 20:04 SpO2 (%): 88 09-19-2022 20:04 BP Systolic (mm Hg): 116 09-19-2022 20:04 BP Diastolic (mm Hg): 88 09-19-2022 20:04 PAST MEDICAL HISTORY ALLERGIES/INTOLERANCES: No Known Allergies HEALTH HISTORY: No documented data. OUTPATIENT MEDICATIONS: Home Medications Review Status for Reconciliation: N/A Med Status: N/A No documented data. SIGNIFICANT EVENTS: Immunizations Description:Tdap Past Medical History Description:Schizophren ia Description:Bowel obstructions Description:Intelectual disability with behavioral disturbances Description:Hypothyroid Description:Cervical spine stenosis Description:obstructive sleep apnea Description:Dyslipidemi a CRITICAL CARE RESULTS: Recent Lab Results: I have reviewed these laboratory results: Urinalysis with Culture if Indicated 19-Sep-2022 21:19:00 ResultValue Color, Urine Straw Reference Range: STRAW,YELLOW Appearance, Urine CLEAR Specific [place], Urine 1.010 pH, Urine 6.0 Protein, Urine NEGATIVE Glucose, Urine NEGATIVE Blood, Urine NEGATIVE Ketones, Urine NEGATIVE Bilirubin, Urine NEGATIVE Urobilinogen, Urine <2.0 Nitrite, Urine Negative Leukocyte Esterase, Urine MODERATE(2+) A Urinalysis, Microscopic 19-Sep-2022 21:19:00 ResultValue White Cells 28 A Red Blood Cells <1 Epithelial Cells, Squamous 1 Complete Blood Count + Differential 19-Sep-2022 20:41:00 ResultValue White Blood Cell Count 9.5 Red Blood Cell Count 4.27 L HGB 13.2 L HCT 39.8 L MCV 93 MCHC 33.2 PLT 233 RDW-CV 12.7 Neutrophil % 63.8 Immature Granulocytes % 0.3 Lymphocyte % 23.9 Monocyte % 9.7 Eosinophil % 2.0 Basophil % 0.3 Neutrophil Count 6.04 Lymphocyte Count 2.26 Monocyte Count 0.92 Eosinophil Count 0.19 Basophil Count 0.03 PT + INR, Plasma 19-Sep-2022 20:41:00 ResultValue Prothrombin Time, Plasma 13.6 H International Normalized Ratio, Plasma 1.2 H Comprehensive Metabolic Panel 19-Sep-2022 20:41:00 ResultValue Glucose, Se (more content not included)... Normal [facility] CT Angio Chest For PEon 0 09-19-2022 CT Angio Chest For PE Normal [facility] 120 Work Phone: TROPONIN I, HIGH SENSITIVITY on 09-19-2022 TROPONIN I, HIGH SENSITIVITY Canceled Normal [facility] Comment on above: Order Comment: TEST TROPONIN I, HIGH SENSITIVITY WAS CANCELLED, 09/19/2022 21:22 Result Comment: . Less than 99th percentile of normal range cutoff- Female and children under 18 years old <14 ng/L; Male <21 ng/L: Negative Repeat testing should be performed if clinically indicated. . Female and children under 18 years old 14-50 ng/L; Male 21-50 ng/L: Consistent with possible cardiac damage and possible increased clinical risk. Serial measurements may help to assess extent of myocardial damage. . >50 ng/L: Consistent with cardiac damage, increased clinical risk and myocardial infarction. Serial measurements may help assess extent of myocardial damage. . NOTE: Children less than 1 year old may have higher baseline troponin levels and results should be interpreted in conjunction with the overall clinical context. . NOTE: Troponin I testing is performed using a different testing methodology at [facility] than at other legacy [facility]. Direct result comparisons should only be made within the same method. Performed By: #### U ARFX #### [address] [address] TROPONIN I, HIGH SENSITIVITY 3 ng/L Normal 0 - 20 [facility] Comment on above: Result Comment: . Less than 99th percentile of normal range cutoff- Female and children under 18 years old <14 ng/L; Male <21 ng/L: Negative Repeat testing should be performed if clinically indicated. . Female and children under 18 years old 14-50 ng/L; Male 21-50 ng/L: Consistent with possible cardiac damage and possible increased clinical risk. Serial measurements may help to assess extent of myocardial damage. . >50 ng/L: Consistent with cardiac damage, increased clinical risk and myocardial infarction. Serial measurements may help assess extent of myocardial damage. . NOTE: Children less than 1 year old may have higher baseline troponin levels and results should be interpreted in conjunction with the overall clinical context. . NOTE: Troponin I testing is performed using a different testing methodology at [facility] than at other legacy [facility]. Direct result comparisons should only be made within the same method. Performed By: #### B MP #### [address] [address] Tropinin I.cardiac panel High sensitivity method 3 ng/L 0 - 20 [facility] 120 Work Phone: Comment on above: .Less than 99th perc entile of normal range cutoff-Female and children under 18 years old <14 ng/L; Male <21 ng/L: NegativeRepeat testing should be performed if clinically indicated. .Female and children under 18 years old 14-50 ng/L; Male 21-50 ng/L:Consistent with possible cardiac damage and possible increased clinical risk. Serial measurements may help to assess extent of myocardial damage. .>50 ng/L: Consistent with cardiac damage, increased clinical risk andmyocardial infarction. Serial measurements may help assess extent of myocardial damage. . NOTE: Children less than 1 year old may have higher baseline troponin levels and results should be interpreted in conjunction with the overall clinical context. .NOTE: Troponin I testing is performed using a different testing methodology at [facility] than at other [facility]. Direct result comparisons should only be made within the same method. Triage - EDon 09-19-2022 Triage - ED Chart Review: ARRIVAL INFORMATION Mode of Arrival: ambulance Agency Name: [place] CHIEF COMPLAINT PANCHO MCPHERSON is a Male patient with a chief complaint of fall (pt from intermediate, found by caregiver laying on floor. pt states he fell and hit head on wooden floor. unknown loc. ccollar intact. c/o pain to forehead.). Triage Date/Time: 19-Sep-2022 20:04 MAYRA: 3 Pain Rating (0-10): 5 = Moderate Vital Signs: Temperature: 97.1F ( 36.1C) taken forehead Blood Pressure: 116/88 Mean: Heart Rate: 61 Respiratory Rate: 16 Pulse Oximetry: 88% on room air, no respiratory support. Patient has homicidal thoughts: unable to assess Risk Screens Suicide Risk Screen Thayer Risk Screen: unable to assess Thayer Risk Screen Padron Fall Scale Screening Has the patient fallen before (or is the patient in the ED as a result of a fall) has had a fall Does the patient have an impaired gait has impaired gait Is the patient cognitively impaired cognitively impaired Padron Fall Scale History of falling (immediate or previous) yes (25) Secondary Diagnosis yes (15) Intravenous Therapy/ Heparin/Saline Lock no (0) Gait/Transferring normal/bedrest/wheelcha ir (0) Ambulatory Aids none/bedrest/nurse assist (0) Mental Status oriented to own ability (0) Padron Fall Risk Score: 40 Interventions: Padron Fall Interventions: MODERATE INTERVENTIONS: *Low Interventions Plus: * falls risk band/sticker applied to patient, *yellow non-skid footwear, *instruct to call for assistance before getting out of bed, *bed/chair/bedside commode/toilet alarms, *sensory devices/ambulatory aides available and in reach, *medications reviewed for potential side effects and care planning. TRAVEL HISTORY Travel History Coronavirus Screening: no exposure or symptoms Travel Exposure History: NO travel to International locations in the past 30 days PAIN Pain Scale Used: MADHAVI Pain Rating (0-10): 5 = Moderate Past Medical History: Past Medical History Reviewedyes Dyslipidemia: Past Medical History, Active obstructive sleep apnea: Past Medical History, Active Cervical spine stenosis: Past Medical History, Active Hypothyroid: Past Medical History, Active Intelectual disability with behavioral disturbances: Past Medical History, Active Bowel obstructions: Past Medical History, Active Schizophrenia: Past Medical History, Active Tdap: Immunizations, Active, 01-Dec-2021 Electronic Signatures: Yashira Driver) (Signed 19-Sep-2022 20:13) Authored: Quick Triage, Risk Screens, Pain, Travel History, Chart Review, Scores, Past Medical History Last Updated: 19-Sep-2022 20:13 by Yashira Driver (ARIANNA) Normal [facility] UA MICROSCOPICon 09-19-2022 RBC (U) [#/Vol] /uL Normal 0-5 [facility] Comment on above: Performed By: #### U AMIC #### [place] [address] SQUAMOUS EPITH. CELLS 1 /HPF Normal [facility] Comment on above: Performed By: #### U AMIC #### [place] [address] WBC 28 /HPF Abnormal 0-5 [facility] Comment on above: Performed By: #### U AMIC #### [place] [address] URINALYSIS WITH CULTURE IF I NDICATEDon 09-19-2022 Appearance (U) CLEAR Normal CLEAR [facility] Comment on above: Performed By: #### U ARFX #### [address] [place] [address] Bilirubin Ql (U) Negative Normal NEGATIVE [facility] Comment on above: Performed By: #### U ARFX #### [place] [address] Color (U) Straw Normal STRAW,YELLOW [facility] Comment on above: Performed By: #### U ARFX #### [place] [address] Glucose Ql (U) Negative Normal NEGATIVE [facility] Comment on above: Performed By: #### U ARFX #### [place] [address] Hemoglobin Ql (U) Negative Normal NEGATIVE [facility] Comment on above: Performed By: #### U ARFX #### [place] [address] Ketones Ql (U) Negative Normal NEGATIVE [facility] Comment on above: Performed By: #### U ARFX #### [place] [address] Leukocyte esterase Test strip Ql (U) MODERATE(2+) Abnormal NEGATIVE [facility] Comment on above: Performed By: #### U ARFX #### [place] [address] Nitrite Ql (U) Negative Normal NEGATIVE [facility] Comment on above: Performed By: #### U ARFX #### [place] [address] pH (U) 6.0 [pH] Normal 5.0 - 8.0 [facility] Comment on above: Performed By: #### U ARFX #### [place] [address] Protein Ql (U) Negative Normal NEGATIVE [facility] Comment on above: Performed By: #### U ARFX #### [place] [address] Specific gravity (U) [Rel density] 1.010 Normal 1.005 - 1.035 [facility] Comment on above: Performed By: #### U ARFX #### [address] [place] [address] Urobilinogen (U) [Mass/Vol] mg/dL Normal 0.0 - 1.9 [facility] Comment on above: Performed By: #### U ARFX #### [address] [address] Color (U) Straw See Below [facility] 120 Work Phone: Comment on above: Reference Range: STR AW,YELLOW Glucose Ql (U) Negative NEGATIVE [facility] 120 Work Phone: Ketones Ql (U) Negative NEGATIVE [facility] 120 Work Phone: Leukocyte esterase Test strip Ql (U) MODERATE(2+) Abnormal NEGATIVE [facility] 120 Work Phone: pH (U) 6.0 [pH] 5.0 - 8.0 [facility] 120 Work Phone: Protein (U) [Mass/Vol] Negative NEGATIVE [facility] 120 Work Phone: RBC (U) [#/Vol] Negative NEGATIVE [facility] 120 Work Phone: Specific gravity (U) [Rel density] 1.010 1 See Below [facility] 120 Work Phone: Comment on above: Reference Range: 1.0 05 - 1.035 URINALYSIS WITH CULTURE IF INDICATED Negative NEGATIVE [facility] 120 Work Phone: URINALYSIS WITH CULTURE IF INDICATED <2.0 0.0 - 1.9 [facility] 120 Work Phone: URINALYSIS WITH CULTURE IF INDICATED CLEAR CLEAR [facility] 120 Work Phone: URINE CULTURE,BACTERIALon URINE CULTURE,BACTERIAL PATIENT: PANCHO MCPHERSON LOCATION: [facility] NIKOLAS#: [id number] : 58 AGE: SEX: M ORDERED BY: LEILANI REYNOLDS SOURCE: URINE COLLECTED: 09/19/22 21:19 ANTIBIOTICS AT JUVENCIO.: RECEIVED : 09/20/22 12:25 SITE: R E S U L T S URINE CULTURE,BACTERIAL FINAL 09/21/22 08:18 MULTIPLE ORGANISMS PRESENT, PROBABLE CONTAMINATION PLEASE REPEAT CULTURE. Normal Merged With [facility] Comment on above: Performed By: #### U RINC #### [facility] [address] [place] [address] Urinalysis, Microscopicon Urinalysis, Microscopic 1 {/HPF} [facility] Work Phone: Urinalysis, Microscopic <1 0-5 [facility] [facility] Work Phone: Urinalysis, Microscopic 28 {/HPF} Abnormal 0-5 [facility] [facility] Work Phone: XR Thoracic and lumbar spine Views for scoliosison 09-06-2022 IMPRESSION: Scoliotic curvature of the thoracic spine with right superior pelvic tilt. OLOGY EXAM: XR SPINE SCOLIOSIS 2/3 VIEWS, 09/06/2022 09:25 AM COMPARISON: No prior studies available for comparison. CLINICAL INDICATIONS: neck pain RELEVANT CLINICAL HISTORY: Z98.1:S/P cervical spinal fusion R29.898:Weakness of both lower extremities 3 foot standing;Calibration sphere; FINDINGS: 9 images obtained. Thoracolumbar spine: 12 rib-bearing thoracic vertebral bodies and 5 lumbar vertebral bodies are identified. 23 degrees dextroconvex scoliotic curvature of the thoracic spine measured from the superior endplate of T1 to the inferior endplate of T11. Anterior fusion hardware in the cervical spine C3-C5 is grossly intact. Diffuse degenerative disc disease. Pelvic Tilt: Right superior pelvic tilt measuring 10 mm. RADIOLOGY Meir Torres MD - 09/06/2022 EXAM: XR SPINE SCOLIOSIS 2/3 VIEWS, 09/06/2022 09:25 AM COMPARISON: No prior studies available for comparison. CLINICAL INDICATIONS: neck pain RELEVANT CLINICAL HISTORY: Z98.1:S/P cervical spinal fusion R29.898:Weakness of both lower extremities 3 foot standing;Calibration sphere; FINDINGS: 9 images obtained. Thoracolumbar spine: 12 rib-bearing thoracic vertebral bodies and 5 lumbar vertebral bodies are identified. 23 degrees dextroconvex scoliotic curvature of the thoracic spine measured from the superior endplate of T1 to the inferior endplate of T11. Anterior fusion hardware in the cervical spine C3-C5 is grossly intact. Diffuse degenerative disc disease. Pelvic Tilt: Right superior pelvic tilt measuring 10 mm. IMPRESSION IMPRESSION: Scoliotic curvature of the thoracic spine with right superior pelvic tilt. [facility] Radiology Study observation (narrative) [facility] XR Thoracic and lumbar spine Views for scoliosisOrdered By: Meir Torres on 09-06-2022 [facility] Work Phone: CT C-SPINE WO CONTRASTon CT C-SPINE WO CONTRAST Patient Name: PANCHO MCPHERSON STUDY: CT C-SPINE WO CONTRAST; ; 07/22/2022 8:19 am INDICATION: fall . COMPARISON: 12/01/2021 ACCESSION NUMBER(S): [id number] ORDERING CLINICIAN: VIKRAM MARR TECHNIQUE: Serial axial images of the cervical spine were obtained. Sagittal and coronal reconstructions were generated. FINDINGS: The patient is scoliotic. The patient is status post anterior fusion from C3-C5. There are no acute fractures. There is moderate degenerative disease. The prevertebral soft tissues are unremarkable. The spine is similar to the prior exam. IMPRESSION: No obvious fracture. Electronically signed by: WOOD BISHOP MD [facility] CT HEAD WO CONTRASTon 2021 CT HEAD WO CONTRAST Patient Name: PANCHO MCPHERSON STUDY: CT HEAD WO CONTRAST; ; 07/22/2022 8:19 am INDICATION: fall . COMPARISON: 06/01/2022 ACCESSION NUMBER(S): [id number] ORDERING CLINICIAN: VIKRAM MARR TECHNIQUE: Serial axial images of the head were obtained without intravenous contrast. Sagittal and coronal reconstructions were generated. FINDINGS: The patient is rotated in the gantry. There is mild prominence of the ventricles and cortical sulci. There are no acute parenchymal abnormalities. There is no hemorrhage or extra-axial fluid. There is increased attenuation of the scalp. It is uncertain if any of this represents a scalp hematoma. There is no obvious skull fracture. Visualized portions of the paranasal sinuses the mastoid are unremarkable. There is deformity the nose presumably due to previous trauma. COMPARISON OF FINDINGS: Brain is similar. IMPRESSION: No acute intracranial abnormality. Electronically signed by: WOOD BISHOP MD [facility] Provider Note - ED v3on Provider Note - ED v3 Provider Note: Chart Review: ED NOTES ED NOTES: History of Present Illness: 72-year-old male presenting from intermediate due to a head injury onset prior to arrival. Per EMS, patient was being transferred into a shower chair when caregiver lost her handling of him and he fell , striking his frontal scalp. Patient did not have loss of consciousness. Patient denies any acute pain at this time. He states he does have some back pain, but that is chronic in nature. He denies that the pain is any worse today. Patient denies any headaches, vision changes, or extremity weakness. He is not on blood thinners. Past Medical History: schizophrenia, sleep apnea , dyslipidemia Past surgical History: denies Family history: Reviewed and not pertinent to complaint Social history: lives in a intermediate, denies any EtOH or drug use REVIEW OF SYSTEMS: Pertinent negatives and positives noted in the HPI. Otherwise, a complete review of system was negative. PHYSICAL EXAM: Appearance: Alert, oriented , cooperative, in no acute distress. Skin: abrasion frontal scalp, no rash Eyes: PERRLA, EOMs intact, Conjunctiva pink with no redness or exudates. HENT: abrasion and ecchymosis frontal scalp, Nares patent. No intraoral lesions. Neck: Supple, without meningismus. Trachea at midline. No lymphadenopathy. Pulmonary: Clear bilaterally with good chest wall excursion. No rales, rhonchi or wheezing. No accessory muscle use or stridor. Cardiac: Regular rate and rhythm, Abdomen: Abdomen is soft, nontender, and nondistended. Genitourinary: Exam deferred. Musculoskeletal: Full range of motion. Pulses full and equal. No cyanosis, clubbing, or edema. Neurological: grossly normal sensation, no weakness, no focal findings identified. Psychiatric: Appropriate mood and affect. HISTORY OF PRESENTING ILLNESS PANCHO is a 62 year old Male and was seen by me at 22-Jul-2022 07:50 for a chief complaint of head injury (to er per [place] [facility] with c/o head injury. pt was dropped while being transferred to a shower chair and hit his head on the floor. denies loc. alert and oriented to person and place)(1). Triage Information: Most recent Vital Sign Value Date Temp (F): 97.1 07-22-2022 07:49 Temp (C): 36.1 07-22-2022 07:49 Heart Rate (beats/min): 58 07-22-2022 07:49 Respirations (breaths/min): 16 07-22-2022 07:49 SpO2 (%): 100 07-22-2022 07:49 BP Systolic (mm Hg): 124 07-22-2022 07:49 BP Diastolic (mm Hg): 79 07-22-2022 07:49 PAST MEDICAL HISTORY ALLERGIES/INTOLERANCES: No Known Allergies HEALTH HISTORY: No documented data. OUTPATIENT MEDICATIONS: Home Medications Review Status for Reconciliation: N/A Med Status: N/A No documented data. SIGNIFICANT EVENTS: Immunizations Description:Tdap Past Medical History Description:Schizophren ia Description:Bowel obstructions Description:Intelectual disability with behavioral disturbances Description:Hypothyroid Description:Cervical spine stenosis Description:obstructive sleep apnea Description:Dyslipidemi a CRITICAL CARE RESULTS: Radiology Results: Impression: No obvious fracture. CT C Spine without Contrast [Jul 22 2022 8:58AM] Impression: No acute intracranial abnormality. CT Head without Contrast [Jul 22 2022 8:56AM] VITAL SIGNS: T PRBP SpO2O2(LPM) %FiO2 Method 22-Jul-2022 09:25:[id number]/130 98 room air, no respiratory support 22-Jul-2022 07:49:[id number]/79 100 room air, no respiratory support 22-Jul-2022 07:44:[id number]/79 100 room air, no respiratory support MDM MDM/ED COURSE: MDM: Patient presenting to ED after sustaining scalp abrasion when transferring at [facility]. Pt denies LOC or acute complaints. Pt is without focal deficits. He has a superficial abrasion to his frontal scalp. Imaging negative for acute process. Pt to be discharged back to [facility] with wound care instructions and return precautions. DISPOSITION Diagnosis/Annotation: ED Dx Name:Scalp abrasion Code:S00.01XA Disposition: discharged Type: residential facility CONSULT CRITICAL CARE TIME Is this a critically ill patient: no Electronic Signatures: Vikram Marr) (Signed 22-Jul-2022 10:16) Authored: ED Notes, HPI, PMH, Results/Vital Signs, MDM/ED Course, Clinical Impression, Attestation, Chart Review, Scores Last Updated: 22-Jul-2022 10:16 by Vikram Marr) References: 1. Data Referenced From Triage - ED 22-Jul-2022 07:49 Normal Merged With [facility] Triage - EDon 07-22-2022 Triage - ED Chart Review: PRIMARY ASSESSMENT ABCD Normal Findings: airway open and patent, circulation normal and alert and oriented ARRIVAL INFORMATION Means of Arrival: stretcher Mode of Arrival: ambulance Agency: [facility] Agency Name: [place] Arrival From: assisted living facility Accompanied By: self Language: Spoken Language Preferred: Taiwanese Reading Language Preferred: Taiwanese Present on Arrival: Device Present on Arrival to ED: no CHIEF COMPLAINT PANCHO MCPHERSON is a Male patient with a chief complaint of head injury (to er per [place] [facility] with c/o head injury. pt was dropped while being transferred to a shower chair and hit his head on the floor. denies loc. alert and oriented to person and place). Triage Date/Time: 22-Jul-2022 07:44 MAYRA: 3 Pain Rating (0-10): 4 = Moderate Pain location: back-chronic Vital Signs: Temperature: 97.1F ( 36.1C) taken axillary Blood Pressure: 124/79 Mean: Heart Rate: 58 Respiratory Rate: 16 Pulse Oximetry: 100% on room air, no respiratory support. Weight: 175.2 pounds. Calculated 79.5 kg. (stated) Moodus Coma Scale: Best Eye Response: (E4) spontaneous Best Motor Response: (M6) obeys commands Best Verbal Response: (V5) oriented Hawa Score: 15 Allergies: no Patient has homicidal thoughts: no Symptom Notes: . Symptoms Are POSITIVE For: bleeding. Symptoms Are Negative For: loss of consciousness. Risk Screens Suicide Risk Screen In the Past Month: Have you wished you were or wished you could go to sleep and not wake up no In the Past Month: Have you had any actual thoughts of killing yourself no In Your Lifetime: Have you ever done anything, started to do anything, or prepared to do anything to end your life no Padron Fall Scale Screening Has the patient fallen before (or is the patient in the ED as a result of a fall) has had a fall Does the patient have an impaired gait does not have impaired gait Is the patient cognitively impaired cognitively impaired Padron Fall Scale History of falling (immediate or previous) yes (25) Secondary Diagnosis yes (15) Intravenous Therapy/ Heparin/Saline Lock no (0) Gait/Transferring normal/bedrest/wheelcha ir (0) Ambulatory Aids none/bedrest/nurse assist (0) Mental Status overestimates/forgets limitations (15) Padron Fall Risk Score: 55 Interventions: Padron Fall Interventions: LOW INTERVENTIONS: *patient oriented to surroundings and call system, * patient/family falls education completed and documented, *patients fall status communicated during bedside handoff, *whiteboard updated, *mode of toileting discussed with patient, *bed in low position with brakes locked, *call light in reach, * non-skid footwear and HIGH INTERVENTIONS *Low and Moderate Interventions Plus: * supervised toileting at all times TRAVEL HISTORY Travel History Coronavirus Screening: no exposure or symptoms Travel Exposure History: NO travel to International locations in the past 30 days PAIN Pain Scale Used: MADHAVI Pain Rating (0-10): 4 = Moderate Past Medical History: Past Medical History Reviewedyes Dyslipidemia: Past Medical History, Active obstructive sleep apnea: Past Medical History, Active Cervical spine stenosis: Past Medical History, Active Hypothyroid: Past Medical History, Active Intelectual disability with behavioral disturbances: Past Medical History, Active Bowel obstructions: Past Medical History, Active Schizophrenia: Past Medical History, Active Tdap: Immunizations, Active, 01-Dec-2021 Electronic Signatures: Shara Car (RN) (Signed 22-Jul-2022 07:56) Authored: Quick Triage, Risk Screens, Pain, Arrival, ABCD, Travel History, Chart Review, Scores, Past Medical History Last Updated: 22-Jul-2022 07:56 by Shara Car (RN) [facility] Height or Weight NOT Doneon 07-15-2022 Fall risk assessment a) No falls within the last year [facility] Work Phone: Tobacco use status [facility] b) No [facility] Work Phone: Office Visit (Urology)on Follow-up visit Diagnoses/Problems Assessed Frequent UTI (599.0) (N39.0) Urinary incontinence (788.30) (R32) Urinary frequency (788.41) (R35.0) Benign prostatic hyperplasia with urinary obstruction and other lower urinary tract symptoms (600.21) (N40.1,N13.8) Non-smoker (V49.89) (Z78.9) Patient Discussion/Summary Treatment options for LUTS reviewed COntinue Flomax and Myrbetria Discussed timed voiding. Discussed fluid and caffeine intake Lifestyle change to help prevent UTIs discussed. Encouraged fluid intake. All available PSA values reviewed, Options discussed. Questions answered. PSA ordered F/u 6 months with PSA Chief Complaint Establishing with Recurrent UTI and Urgency History of Present IllnessPatient presents to the office today to Establish with Recurrent UTI and Urgency. Patient has had 3 UTI's in the past year...Patient is on a Methenamine BID for frequent UTI's..... LUTs are chronic and mild. Having frequency. Denies urgency. Weak stream at times... Denies dysuria and hematuria..CYSTO done in 07/05... Nocturia x1 but wakes up wet.....No recent PSA.... Caffeine does worsen LUTs.. Myrbetriq and Flomax for LUTs..Spinal Stenosis Sx 2-3 years ago... Review of Systems Constitutional: No fever, No chills. Eye: Negative. Ear/Nose/Mouth/Throat: Negative. Respiratory: No shortness of breath, No cough. Cardiovascular: No chest pain, No peripheral edema. Gastrointestinal: No nausea, Genitourinary: Negative except as documented in history of present illness. Hematology/Lymphatics: Patient denies being on blood thinners.. Endocrine: Negative. Immunologic: Not immunocompromised. Musculoskeletal: Negative Integumentary: Negative. Neurologic: Alert and oriented X4. Psychiatric: Negative. Active Problems Problems Bilateral leg weakness (729.89) (R29.898) Cervical stenosis of spinal canal (723.0) (M48.02) General weakness (780.79) (R53.1) Oral phase dysphagia (787.21) (R13.11) Osteoarthritis of spine with radiculopathy, cervical region (721.0) (M47.22) S/P cervical spinal fusion (V45.4) (Z98.1) Family History Mother No pertinent family history Father No pertinent family history Social History Problems Non-smoker (V49.89) (Z78.9) Vitals Vital Signs Recorded: 15Jul2022 10:36AM Heart [id number] Height or Weight NOT DoneMedical Reason Not Done Tobacco Useb) No Falls Screening (Age 18+)a) No falls within the last year Physical Exam A/O x 3 in No apparent distress Constitutional: General appearance normal Respiratory: Respiratory effort is normal Gastrointestinal:Abdome n is not tender Genitourinary: Kidneys: Not palpable Bilaterally Bladder: Not palpable or tender Scrotum: No mass. No Hydrocele Epididymis: No spermatocele. Not tender Testicles: no mass Urethra: No Discharge Penis: WNL...No lesions Prostate: deferred Signatures Electronically signed by : Shashank Padilla II, MD; Jul 15 2022 10:48AM EST (Author) Normal myinfoQ OT Initial Evalutationon OT Initial Evalutation Therapy Diagnosis Assessed Cervical stenosis of spinal canal (723.0) (M48.02) Plan of Care Frequency and duration: no further visits planned. Assessment Pt does not present with any UE limitations at this time compared to baseline. Pt demos good BUE ROM, strength and FMC. Educated pt caregivers that pt could likely assist even more with ADLs than currently d/t strength and trunk control. No further visits. Reason For Visit Initial Evaluation, Evaluation and Treatment. Referred by Mario GARNICA. Adult Risk Screening There are no spiritual/cultural practices/values/needs that are important to know Initial Fall Risk Screening: PANCHO has not fallen in the last 6 months. His fall did not result in injury. PANCHO does not have a fear of falling. He needs assistance with . Needs assistance walking in his home. He needs assistance in an unfamiliar setting. The patient is using an assistive device. Pain Scale: On a scale of 0 to 10, the patient rates the pain at 0. Living Will. Unable to assess if patient has a living will. Healthcare POA: Unable to assess if patient has a Health Care Proxy. Declaration of Mental Health Treatment: Unable to assess if patient has a Declaration Mental Health Treatment . Insurance Insurance reviewed Visit number: [employer] Authorization required after evaluation Onset Date: 2021 Subjective Patient reports: Pt presenting to OT this date for evaluation with caregivers this date d/t new admit to [facility]. Pt was staying respite and is now going to stay as a resident. Pt requires mainly full care for dressing and bathing ADLs. Pt assists with putting his arms into his shirt. Pt had spinal stenosis surgery about two years ago. Pt demos ability to propel w/c all the way back to table. Pt assists with transfers by lifting his bottom. Pt brushes his teeth and does shaving and facial hygiene following s/u. Pt helps with bathing that he can reach as well. Pt feeds self following s/u. Pt plays trouble and typically participates in group activities. Precautions: none Fall Risk: high Functional Assessment and Medical Management Prior Level of Function: independent. Work History:. He is disabled. Patient stated goal(s) for treatment include:. determine any needs as new admit. Personal Factors That May Impact Care: cognition . Preferred learning method: visual and verbal. Objective ROM/JointMobility: (Range of Motion in degrees) Additional Information: BUE ROM WFL . Strength: Hands (Foley: P! 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 Coordination and Manual Dexterity: VIa observation pt demos ability put flat marbles into tennis ball. Treatment Time in clinic started at 1100 am Time in clinic ended at 1140 am Total time in clinic is 40 minutes. Total timed code time is 0 minutes. Treatment Performed Today Education on pt POC and current level of function. Treatment Performed Today: education . Evaluation Code: 38 min(s). 80688 - OT Eval Low Complexity Signatures Electronically signed by : Mindy Saucedo OTR/Sameer; Jun 23 2022 3:00PM EST (Author) Normal [employer] COMPUTER GAME TESTER (Clinical Swallow Evalua tion)on 06-16-2022 COMPUTER GAME TESTER (Clinical Swallow Evaluation) Therapy Diagnosis Assessed Oral phase dysphagia (787.21) (R13.11) Plan of Care Therapy warranted: no Adult Risk Screening Initial Fall Risk Screening: PANCHO has fallen in the last 6 months. He has fallen due to fallen out of wheelchair. His fall resulted in the following injury: facial laceration . PANCHO does not have a fear of falling. He needs assistance with uses wheel chair. Needs assistance walking in his home. He needs assistance in an unfamiliar setting. The patient is using an assistive device. Pain Scale: On a scale of 0 to 10, the patient rates the pain at 0. Living Will. Unable to assess if patient has a living will. Insurance Insurance reviewed Visit number: 1 Approved number of visits: EVAL ONLY Authorization required after evaluation Subjective Living Environment: intermediate Patient arrival: accompanied by Caregivers Clinical Swallow Evaluation: Reason for Referral: Swallow Evaluation to determine safe diet Referred by: Qing Martin Prior level of function: decreased function Intellectual Disability and behavioral disturbance Respiratory status: within functional limits Hearing: impaired Hard of Hearing Vision: patient wears glasses Cognitive/behavioral: attentive and cooperative Weight loss: unknown Liquids: thin (IDDSI level 0) Solids: regular (IDDSI Level 7) Oral assessment: Oral hygiene: WFL Dentition: natural, missing teeth Oral motor: impaired function Labial: decreased labial seal, decreased protrusion, decreased range of motion and decreased strength Lingual: decreased protrusion, decreased range of motion and decreased strength Laryngeal assessment: Laryngeal elevation upon palpation: within functional limits Vocal quality: adequate Dry cough: strong Dry swallow: strong and coordinated Previous study: no Objective Consistencies trialed: thin straw , thin cup , puree , soft solid and regular Oral Phase: Impaired AP transfer: thin straw, thin cup, puree, soft solid, regular Oral residue: soft solid, regular oral holding of liquids . Clinical observations: No overt signs or symptoms of aspiration: Impaired AP transfer: thin straw, thin cup, soft solid, regular Oral residue: soft solid, regular safe swallow. No s/s of aspiration or penetration. No change in vocal quality post trials. Diet Recommendations: regular small/bite size thin liquid (no straws) alternate solids and liquids. Treatment Treatment performed today: no Education: Provided to: caregiver Verbal education provided: compensatory swallow strategies and no straws Written education provided: compensatory swallow strategies Response to education: verbalized understanding Time in clinic started at 11:00 am Time in clinic ended at 12:00 pm Total time in clinic is 60 minutes. CPT Code 15365 Clinical swallow evaluation Contacts for Physician Signature First attempt date: 06/16/22. Referring Provider Signature: I am in agreement with the above plan of care. Referring Provider Signature __, Date/Time Signatures Electronically signed by : Jo Louis CCC-COMPUTER GAME TESTER; Jun 16 2022 12:31PM EST (Author) [facility] AND DIFFERENTIALon 06-09 Basophils (Bld) [#/Vol] 0.10 10*3/uL Normal 0.00 - 0.10 [facility] Comment on above: Performed By: #### U AMIC #### [address] [address] Basophils/100 WBC (Bld) 1.1 % Normal 0.0 - 2.0 [facility] Comment on above: Performed By: #### U AMIC #### [address] [address] Eosinophils (Bld) [#/Vol] 0.30 10*3/uL Normal 0.00 - 0.70 [facility] Comment on above: Performed By: #### U AMIC #### [address] [address] Eosinophils/100 WBC (Bld) 4.0 % Normal 0.0 - 6.0 [facility] Comment on above: Performed By: #### U AMIC #### [address] [address] Erythrocyte distribution width (RBC) [Ratio] 14.8 % High 11.5 - 14.5 [facility] Comment on above: Performed By: #### U AMIC #### [address] [address] Hematocrit (Bld) [Volume fraction] 44.4 % Normal 41.0 - 52.0 [facility] Comment on above: Performed By: #### U AMIC #### [address] [address] Hemoglobin (Bld) [Mass/Vol] 14.5 g/dL Normal 13.5 - 17.5 [facility] Comment on above: Performed By: #### U AMIC #### [address] [address] Lymphocytes (Bld) [#/Vol] 1.80 10*3/uL Normal 1.20 - 4.80 [facility] Comment on above: Performed By: #### U AMIC #### [address] [address] Lymphocytes/100 WBC (Bld) 24.4 % Normal 13.0 - 44.0 [facility] Comment on above: Performed By: #### U AMIC #### [address] [address] MCHC (RBC) [Mass/Vol] 32.7 g/dL Normal 32.0 - 36.0 [facility] Comment on above: Performed By: #### U AMIC #### [address] [address] MCV (RBC) [Entitic vol] 92 fL Normal 80 - 100 [facility] Comment on above: Performed By: #### U AMIC #### [address] [address] Monocytes (Bld) [#/Vol] 0.50 10*3/uL Normal 0.10 - 1.00 [facility] Comment on above: Performed By: #### U AMIC #### [address] [address] Monocytes/100 WBC (Bld) 7.1 % Normal 2.0 - 10.0 [facility] Comment on above: Performed By: #### U AMIC #### [address] [address] Neutrophils (Bld) [#/Vol] 4.70 10*3/uL Normal 1.20 - 7.70 [facility] Comment on above: Result Comment: Perc ent differential counts (%) should be interpreted in the context of the absolute cell counts (cells/L). Performed By: #### U AMIC #### [address] [address] Neutrophils/100 WBC (Bld) 63.4 % Normal 40.0 - 80.0 [facility] Comment on above: Performed By: #### U AMIC #### [address] [address] NUCLEATED RBC 0.3 /100 WBC Normal [facility] Comment on above: Performed By: #### U AMIC #### [address] [address] Platelets (Bld) [#/Vol] 217 10*3/uL Normal 150 - 450 [facility] Comment on above: Performed By: #### U AMIC #### [address] [address] RBC 4.84 x10E12/L Normal 4.50 - 5.90 [facility] Comment on above: Performed By: #### U AMIC #### [address] [address] WBC (Bld) [#/Vol] 7.4 10*3/uL Normal 4.4 - 11.3 [facility] Comment on above: Performed By: #### U AMIC #### [address] [address] COMPREHENSIVE PANELon 2021 Albumin [Mass/Vol] 4.0 g/dL Normal 3.4 - 5.0 [facility] Comment on above: Performed By: #### U AMIC #### [address] [address] ALP [Catalytic activity/Vol] 100 U/L Normal 33 - 136 [facility] Comment on above: Performed By: #### U AMIC #### [address] [address] ALT [Catalytic activity/Vol] 21 U/L Normal 10 - 52 [facility] Comment on above: Result Comment: Casandra ents treated with Sulfasalazine may generate falsely decreased results for ALT. Performed By: #### U AMIC #### [address] [address] Anion gap [Moles/Vol] 10 mmol/L Normal 10 - 20 [facility] Comment on above: Performed By: #### U AMIC #### [address] [address] AST [Catalytic activity/Vol] 15 U/L Normal 9 - 39 [facility] Comment on above: Performed By: #### U AMIC #### [address] [address] Bilirubin [Mass/Vol] 0.2 mg/dL Normal 0.0 - 1.2 [facility] Comment on above: Performed By: #### U AMIC #### [address] [address] Calcium [Mass/Vol] 9.1 mg/dL Normal 8.6 - 10.3 [facility] Comment on above: Performed By: #### U AMIC #### [address] [address] Chloride [Moles/Vol] 103 mmol/L Normal 98 - 107 [facility] Comment on above: Performed By: #### U AMIC #### [address] [address] Creatinine [Mass/Vol] 0.65 mg/dL Normal 0.50 - 1.30 [facility] Comment on above: Performed By: #### U AMIC #### [address] [address] eGFR MALE >90 Normal >90 [facility] Comment on above: Result Comment: CALC ULATIONS OF ESTIMATED GFR ARE PERFORMED USING THE 2020 CKD-EPI STUDY REFIT EQUATION WITHOUT THE RACE VARIABLE FOR THE IDMS-TRACEABLE CREATININE METHODS. https://jasn.asnjournals.org/content//ASN.2364014 988 Performed By: #### U AMIC #### [address] [address] Glucose [Mass/Vol] 75 mg/dL Normal 74 - 99 [facility] Comment on above: Performed By: #### U AMIC #### [address] [address] HCO3 (Bld) [Moles/Vol] 32 mmol/L Normal 21 - 32 [facility] Comment on above: Performed By: #### U AMIC #### [address] [address] Potassium [Moles/Vol] 4.0 mmol/L Normal 3.5 - 5.3 [facility] Comment on above: Performed By: #### U AMIC #### [address] [address] Protein [Mass/Vol] 7.1 g/dL Normal 6.4 - 8.2 [facility] Comment on above: Performed By: #### U AMIC #### [address] [address] Sodium [Moles/Vol] 141 mmol/L Normal 136 - 145 [facility] Comment on above: Performed By: #### U AMIC #### [address] [address] Urea nitrogen [Mass/Vol] 17 mg/dL Normal 6 - 23 [facility] Comment on above: Performed By: #### U [facility] #### [address] [place] [address] Complete Blood Count + Sherman smith 06-09-2022 Basophils/100 WBC (Bld) 1.1 % 0.0 - 2.0 [facility] Work Phone: Erythrocyte distribution width (RBC) [Ratio] 14.8 % above high threshold See Below [facility] Work Phone: Comment on above: Reference Range: 11. 5 - 14.5 Hematocrit (Bld) [Volume fraction] 44.4 % See Below [facility] Work Phone: Comment on above: Reference Range: 41. 0 - 52.0 Hemoglobin (Bld) [Mass/Vol] 14.5 g/dL See Below [facility] Work Phone: Comment on above: Reference Range: 13. 5 - 17.5 Lymphocytes/100 WBC (Bld) 24.4 % See Below [facility] [place] Work Phone: Comment on above: Reference Range: 13. 0 - 44.0 MCHC (RBC) [Mass/Vol] 32.7 g/dL See Below [facility] [place] Work Phone: Comment on above: Reference Range: 32. 0 - 36.0 MCV (RBC) [Entitic vol] 92 fL 80 - 100 [facility] [place] Work Phone: [phone] Monocytes/100 WBC (Bld) 7.1 % 2.0 - 10.0 [facility] [place] Work Phone: [phone] Neutrophils/100 WBC (Bld) 63.4 % See Below [facility] [place] Work Phone: Comment on above: Reference Range: 40. 0 - 80.0 Platelets (Bld) [#/Vol] 217 10*3/uL 150 - 450 [facility] [place] Work Phone: [phone] RBC (Bld) [#/Vol] 4.84 {x10E12/L} See Below [facility] [place] Work Phone: [phone] Comment on above: Reference Range: 4.5 0 - 5.90 WBC (Bld) [#/Vol] 7.4 10*3/uL 4.4 - 11.3 [facility] [place] Work Phone: [phone] Complete Blood Count + Differential 0.10 {x10E9/L} See Below [facility] Work Phone: [phone] Comment on above: Reference Range: 0.0 0 - 0.10 Complete Blood Count + Differential 0.30 {x10E9/L} See Below [facility] [place] Work Phone: [phone] Comment on above: Reference Range: 0.0 0 - 0.70 Complete Blood Count + Differential 0.50 {x10E9/L} See Below [facility] Work Phone: [phone] Comment on above: Reference Range: 0.1 0 - 1.00 Complete Blood Count + Differential 1.80 {x10E9/L} See Below [facility] [place] Work Phone: [phone] Comment on above: Reference Range: 1.2 0 - 4.80 Complete Blood Count + Differential 4.70 {x10E9/L} See Below [facility] [place] Work Phone: [phone] Comment on above: Reference Range: 1.2 0 - 7.70 Percent differential counts (%) should be interpreted in the context of the absolute cell counts (cells/L). Complete Blood Count + Differential 4.0 % 0.0 - 6.0 [facility] [place] Work Phone: [phone] Complete Blood Count + Differential 0.3 {/100_WBC} [facility] [place] Work Phone: FERRITINon 06-09-2022 FERRITIN 45 ug/L Normal 20 - 300 [facility] Comment on above: Performed By: #### U AMIC #### [address] [address] Ferritin, Serumon 06-09-2022 Ferritin [Mass/Vol] 45 ug/L 20 - 300 [facility] [place] Work Phone: IRON + TIBCon 06-09-2022 % SATURATION 23 % Low 25 - 45 [facility] Comment on above: Performed By: #### I MARCUS #### [address] [address] Iron [Mass/Vol] 78 ug/dL Normal 35 - 150 [facility] Comment on above: Performed By: #### I MARCUS #### [address] [address] TIBC 339 ug/dL Normal 240 - 445 [facility] Comment on above: Performed By: #### I MARCUS #### [address] [address] Laboratory - Chemistry and C hemistry - challengeon 06-09-2022 Albumin BCP dye [Mass/Vol] 4.0 g/dL 3.4 - 5.0 [facility] [place] Work Phone: ALP [Catalytic activity/Vol] 100 U/L 33 - 136 [facility] [place] Work Phone: ALT With P-5'-P [Catalytic activity/Vol] 21 U/L 10 - 52 [facility] [place] Work Phone: Comment on above: Patients treated wit h Sulfasalazine may generate falsely decreased results for ALT. Anion gap [Moles/Vol] 10 mmol/L 10 - 20 [facility] [place] Work Phone: AST With P-5'-P [Catalytic activity/Vol] 15 U/L 9 - 39 [facility] [place] Work Phone: Bilirubin [Mass/Vol] 0.2 mg/dL 0.0 - 1.2 [facility] [place] Work Phone: Calcium [Mass/Vol] 9.1 mg/dL 8.6 - 10.3 [facility] [place] Work Phone: Chloride [Moles/Vol] 103 mmol/L 98 - 107 [facility] [place] Work Phone: CO2 [Moles/Vol] 32 mmol/L 21 - 32 [facility] [place] Work Phone: Creatinine [Mass/Vol] 0.65 mg/dL See Below [facility] Work Phone: Comment on above: Reference Range: 0.5 0 - 1.30 Glucose [Mass/Vol] 75 mg/dL 74 - 99 [facility] [place] Work Phone: Iron [Mass/Vol] 78 ug/dL 35 - 150 [facility] [place] Work Phone: Iron binding capacity [Mass/Vol] 339 ug/dL 240 - 445 [facility] Work Phone: Potassium [Moles/Vol] 4.0 mmol/L 3.5 - 5.3 [facility] [place] Work Phone: Protein [Mass/Vol] 7.1 g/dL 6.4 - 8.2 [facility] [place] Work Phone: Sodium [Moles/Vol] 141 mmol/L 136 - 145 [facility] [place] Work Phone: Urea nitrogen [Mass/Vol] 17 mg/dL 6 - 23 [facility] [place] Work Phone: MAGNESIUMon 06-09-2022 Magnesium [Mass/Vol] 2.03 mg/dL Normal 1.60 - 2.40 [facility] Comment on above: Performed By: #### M G #### [address] [address] Magnesium, Serumon 2 Magnesium [Mass/Vol] 2.03 mg/dL See Below [facility] [place] Work Phone: Comment on above: Reference Range: 1.6 0 - 2.40 No Panel Informationon 06-09 23 % below low threshold 25 - 45 [facility] [place] Work Phone: >90 >90 [facility] [place] Work Phone: Comment on above: CALCULATIONS OF ROHAN MATED GFR ARE PERFORMED USING THE 2020 CKD-EPI STUDY REFIT EQUATION WITHOUT THE RACE VARIABLE FOR THE IDMS-TRACEABLE CREATININE METHODS.https://jasn.asnjournals.org/content/early/ASN .2238116796 TSHon 06-09-2022 TSH Qn 6.28 m[IU]/L High 0.44 - 3.98 [facility] Comment on above: Result Comment: TSH testing is performed using different testing methodology at [facility] than at other legacy [facility]. Direct result comparisons should only be made within the same method. Performed By: #### T SH2 #### [address] [address] TSH - Thyroid Stimulating Ho rmone, Serumon 06-09-2022 TSH Qn 6.28 m[IU]/L above high threshold See Below [facility] [place] Work Phone: Comment on above: Reference Range: 0.4 4 - 3.98 TSH testing is performed using different testing methodology at [facility] than at other [facility]. Direct result comparisons should only be made within the same method. VITAMIN B12on 06-09-2022 Cobalamin (Vitamin B12) [Mass/Vol] 451 pg/mL Normal 211 - 911 [facility] Comment on above: Performed By: #### U RIN #### [facility] [address] [place] [address] VITAMIN D, 25-HYDROXYon 05-15 VITAMIN D, 25-HYDROXY 29 ng/mL Abnormal [facility] Comment on above: Result Comment: . DEFICIENCY: < 20 NG/ML INSUFFICIENCY: 20-29 NG/ML SUFFICIENCY: 30-100 NG/ML THIS ASSAY ACCURATELY QUANTIFIES THE SUM OF VITAMIN D3, 25-HYDROXY AND VIT D2,25-HYDROXY. Performed By: #### U RIN #### [facility] [address] [place] [address] Vitamin B12, Serumon 022 Cobalamin (Vitamin B12) [Mass/Vol] 451 pg/mL 211 - 911 [facility] Work Phone: Vitamin D 25-Hydroxyon 06-09 25-hydroxyvitamin D3 [Mass/Vol] 29 ng/mL Abnormal [facility] Work Phone: Comment on above: .DEFICIENCY: < 20 NG /MLINSUFFICIENCY: 20-29 NG/MLSUFFICIENCY: 30-100 NG/MLTHIS ASSAY ACCURATELY QUANTIFIES THE SUM OFVITAMIN D3, 25-HYDROXY AND VIT D2,25-HYDROXY. PHENOBARBITALon 06-02-2022 PHENobarbital [Mass/Vol] 30.0 ug/mL Normal 10.0 - 40.0 [facility] Comment on above: Performed By: #### P HENO #### [facility] [address] [place] [address] BASIC METABOLIC PANELon 05-14 Anion gap [Moles/Vol] 8 mmol/L Low [facility] Comment on above: Performed By: #### B MP #### [address] [address] Calcium [Mass/Vol] 8.7 mg/dL Normal 8.6 - 10.3 [facility] Comment on above: Performed By: #### B MP #### [address] [address] Chloride [Moles/Vol] 99 mmol/L Normal 98 - 107 [facility] Comment on above: Performed By: #### B MP #### [address] [address] Creatinine [Mass/Vol] 0.62 mg/dL Normal 0.50 - 1.30 [facility] Comment on above: Performed By: #### B MP #### [address] [address] eGFR MALE >90 Normal >90 [facility] Comment on above: Result Comment: CALC ULATIONS OF ESTIMATED GFR ARE PERFORMED USING THE 2020 CKD-EPI STUDY REFIT EQUATION WITHOUT THE RACE VARIABLE FOR THE IDMS-TRACEABLE CREATININE METHODS. https://jasn.asnjournals.org/content/early//ASN.4504451 988 Performed By: #### B MP #### [address] [address] Glucose [Mass/Vol] 96 mg/dL Normal 74 - 99 [facility] Comment on above: Performed By: #### B MP #### [address] [address] HCO3 (Bld) [Moles/Vol] 34 mmol/L High 21 - 32 [facility] Comment on above: Performed By: #### B MP #### [address] [address] Potassium [Moles/Vol] 4.1 mmol/L Normal 3.5 - 5.3 [facility] Comment on above: Performed By: #### B MP #### [address] [address] Sodium [Moles/Vol] 137 mmol/L Normal 136 - 145 [facility] Comment on above: Performed By: #### B MP #### [address] [address] Urea nitrogen [Mass/Vol] 17 mg/dL Normal 6 - 23 [facility] Comment on above: Performed By: #### B MP #### [address] [address] CBC AND DIFFERENTIALon 06-01 Basophils (Bld) [#/Vol] 0.00 10*3/uL Normal 0.00 - 0.10 [facility] Comment on above: Performed By: #### U ARFX #### [address] [address] Basophils/100 WBC (Bld) 0.4 % Normal 0.0 - 2.0 [facility] Comment on above: Performed By: #### U ARFX #### [address] [address] Eosinophils (Bld) [#/Vol] 0.10 10*3/uL Normal 0.00 - 0.70 [facility] Comment on above: Performed By: #### U ARFX #### [address] [address] Eosinophils/100 WBC (Bld) 1.5 % Normal 0.0 - 6.0 [facility] Comment on above: Performed By: #### U ARFX #### [address] [address] Erythrocyte distribution width (RBC) [Ratio] 16.8 % High 11.5 - 14.5 [facility] Comment on above: Performed By: #### U ARFX #### [address] [address] Hematocrit (Bld) [Volume fraction] 42.2 % Normal 41.0 - 52.0 [facility] Comment on above: Performed By: #### U ARFX #### [address] [address] Hemoglobin (Bld) [Mass/Vol] 13.8 g/dL Normal 13.5 - 17.5 [facility] Comment on above: Performed By: #### U ARFX #### [address] [address] Lymphocytes (Bld) [#/Vol] 2.30 10*3/uL Normal 1.20 - 4.80 [facility] Comment on above: Performed By: #### U ARFX #### [address] [address] Lymphocytes/100 WBC (Bld) 26.8 % Normal 13.0 - 44.0 [facility] Comment on above: Performed By: #### U ARFX #### [address] [address] MCHC (RBC) [Mass/Vol] 32.7 g/dL Normal 32.0 - 36.0 [facility] Comment on above: Performed By: #### U ARFX #### [address] [address] MCV (RBC) [Entitic vol] 91 fL Normal 80 - 100 [facility] Comment on above: Performed By: #### U ARFX #### [address] [address] Monocytes (Bld) [#/Vol] 0.90 10*3/uL Normal 0.10 - 1.00 [facility] Comment on above: Performed By: #### U ARFX #### [address] [address] Monocytes/100 WBC (Bld) 10.9 % Normal 2.0 - 10.0 [facility] Comment on above: Performed By: #### U ARFX #### [address] [address] Neutrophils (Bld) [#/Vol] 5.20 10*3/uL Normal 1.20 - 7.70 [facility] Comment on above: Result Comment: Perc ent differential counts (%) should be interpreted in the context of the absolute cell counts (cells/L). Performed By: #### U ARFX #### [address] [address] Neutrophils/100 WBC (Bld) 60.4 % Normal 40.0 - 80.0 [facility] Comment on above: Performed By: #### U ARFX #### [address] [address] NUCLEATED RBC 0.1 /100 WBC Normal [facility] Comment on above: Performed By: #### U ARFX #### [address] [address] Platelets (Bld) [#/Vol] 228 10*3/uL Normal 150 - 450 [facility] Comment on above: Performed By: #### U ARFX #### [address] [address] RBC 4.66 x10E12/L Normal 4.50 - 5.90 [facility] Comment on above: Performed By: #### U ARFX #### [address] [address] WBC (Bld) [#/Vol] 8.7 10*3/uL Normal 4.4 - 11.3 [facility] Comment on above: Performed By: #### U ARFX #### [address] [address] [address] C Spine without Contrasto n 06-01-2022 CT Cervical spine WO contrast Normal [facility] [place] Work Phone: CT C-SPINE WO CONTRASTon CT C-SPINE WO CONTRAST Patient Name: PANCHO MCPHERSON STUDY: CT HEAD WO CONTRAST; CT C-SPINE WO CONTRAST; 06/01/2022 5:07 pm INDICATION: HEAD TRAUMA . COMPARISON: CT head and cervical spine dated 12/01/2021. ACCESSION NUMBER(S): [id number]; [id number] ORDERING CLINICIAN: SHASHANK GOEL TECHNIQUE: Noncontrast axial CT scan of head was performed, with coronal and sagittal reformats provided. The images were reviewed in bone, brain, blood and soft tissue windows. Axial CT images of the cervical spine are obtained. Axial, coronal and sagittal reconstructions are provided for review. FINDINGS: CT HEAD: No hyperdense intracranial hemorrhage is evident. No mass effect or midline shift. Dystrophic calcification in the basal ganglia, right greater than left, are stable in appearance to prior exam. Mclaughlin-white differentiation is intact, without evidence of large vascular territory infarct. Subtle attenuation changes are present in the periventricular and subcortical white matter bilateral cerebral hemispheres, likely representing sequela of small vessel disease. There is mild to moderate diffuse parenchymal volume loss, without ventricular dilatation. Basal cisterns are patent. No abnormal extra-axial fluid collections are identified. Calvarium demonstrates no evidence of acute trauma. There is no depressed fracture. Mastoid air cells and middle ear cavities are well aerated. There is unchanged marked rightward angulation of the nasal bones without overlying soft tissue swelling, likely representing sequela of chronic trauma. Bony orbits are intact. There is minimal mucosal thickening present in the inferior maxillary sinuses bilaterally, otherwise paranasal sinuses are unremarkable in appearance. CT C-SPINE: There are postsurgical changes consistent with ACDF of C3 through C5, with susceptibility artifact somewhat limiting evaluation of the adjacent structures. There is no evidence of hardware fracture, although there is somewhat asymmetrically increased lucency noted around the inferior-most screws within the C5 vertebral body relative to the screws within the C3 and C4 vertebral bodies, and component of loosening is not excluded. No significant cervical spondylolisthesis is noted, with cervical alignment no intact. There are mild insufficiency endplate changes present at several levels, without evidence of compression fractures. Posterior elements of the cervical spine demonstrate no definite evidence of acute trauma. There is no abnormal intra spinous distance widening. No displaced transverse or spinous process fractures are evident. Facet joints are intact, with mild degenerative facet osteoarthropathy present. Craniocervical junction is preserved, with moderate degenerative changes present at the atlantoaxial articulation. There is multilevel [id number] intervertebral disc height loss. No high-grade spinal canal stenosis is present. There is multilevel neural foraminal narrowing, with mild disease present at several levels due to endplate spurring. Prevertebral and paraspinal soft tissues demonstrate no acute abnormality. Thyroid is somewhat diminutive in appearance, correlate with hypothyroidism. Partially visualized lung apices are clear. IMPRESSION: 1. No evidence of hemorrhage, depressed calvarial fracture or other acute intracranial abnormality. No acute trauma to the cervical spine is evident. 2. Postsurgical changes of ACDF extending from C3 through C5 with intervertebral disc grafts with somewhat slightly prominent/asymmetric lucency noted around the inferior-most screws within the C5 vertebral body relative to the screws within the C3 and C4 vertebral bodies, raising suspicion for mild hardware loosening. 3. Subtle attenuation changes are present in the periventricular and subcortical white matter bilateral cerebral hemispheres likely represent sequela of small vessel disease. Electronically signed by: VINI BAPTISTE MD [facility] CT HEAD WO CONTRASTon 2021 CT HEAD WO CONTRAST Patient Name: PANCHO MCPHERSON STUDY: CT HEAD WO CONTRAST; CT C-SPINE WO CONTRAST; 06/01/2022 5:07 pm INDICATION: HEAD TRAUMA . COMPARISON: CT head and cervical spine dated 12/01/2021. ACCESSION NUMBER(S): [id number]; [id number] ORDERING CLINICIAN: SHASHANK GOEL TECHNIQUE: Noncontrast axial CT scan of head was performed, with coronal and sagittal reformats provided. The images were reviewed in bone, brain, blood and soft tissue windows. Axial CT images of the cervical spine are obtained. Axial, coronal and sagittal reconstructions are provided for review. FINDINGS: CT HEAD: No hyperdense intracranial hemorrhage is evident. No mass effect or midline shift. Dystrophic calcification in the basal ganglia, right greater than left, are stable in appearance to prior exam. Mclaughlin-white differentiation is intact, without evidence of large vascular territory infarct. Subtle attenuation changes are present in the periventricular and subcortical white matter bilateral cerebral hemispheres, likely representing sequela of small vessel disease. There is mild to moderate diffuse parenchymal volume loss, without ventricular dilatation. Basal cisterns are patent. No abnormal extra-axial fluid collections are identified. Calvarium demonstrates no evidence of acute trauma. There is no depressed fracture. Mastoid air cells and middle ear cavities are well aerated. There is unchanged marked rightward angulation of the nasal bones without overlying soft tissue swelling, likely representing sequela of chronic trauma. Bony orbits are intact. There is minimal mucosal thickening present in the inferior maxillary sinuses bilaterally, otherwise paranasal sinuses are unremarkable in appearance. CT C-SPINE: There are postsurgical changes consistent with ACDF of C3 through C5, with susceptibility artifact somewhat limiting evaluation of the adjacent structures. There is no evidence of hardware fracture, although there is somewhat asymmetrically increased lucency noted around the inferior-most screws within the C5 vertebral body relative to the screws within the C3 and C4 vertebral bodies, and component of loosening is not excluded. No significant cervical spondylolisthesis is noted, with cervical alignment no intact. There are mild insufficiency endplate changes present at several levels, without evidence of compression fractures. Posterior elements of the cervical spine demonstrate no definite evidence of acute trauma. There is no abnormal intra spinous distance widening. No displaced transverse or spinous process fractures are evident. Facet joints are intact, with mild degenerative facet osteoarthropathy present. Craniocervical junction is preserved, with moderate degenerative changes present at the atlantoaxial articulation. There is multilevel [id number] intervertebral disc height loss. No high-grade spinal canal stenosis is present. There is multilevel neural foraminal narrowing, with mild disease present at several levels due to endplate spurring. Prevertebral and paraspinal soft tissues demonstrate no acute abnormality. Thyroid is somewhat diminutive in appearance, correlate with hypothyroidism. Partially visualized lung apices are clear. IMPRESSION: 1. No evidence of hemorrhage, depressed calvarial fracture or other acute intracranial abnormality. No acute trauma to the cervical spine is evident. 2. Postsurgical changes of ACDF extending from C3 through C5 with intervertebral disc grafts with somewhat slightly prominent/asymmetric lucency noted around the inferior-most screws within the C5 vertebral body relative to the screws within the C3 and C4 vertebral bodies, raising suspicion for mild hardware loosening. 3. Subtle attenuation changes are present in the periventricular and subcortical white matter bilateral cerebral hemispheres likely represent sequela of small vessel disease. Electronically signed by: VINI BAPTISTE MD Normal Merged With [facility] CT Head without Contraston 1 CT Head limited WO contrast Normal [facility] Work Phone: Complete Blood Count + Diffe rentialon 06-01-2022 Basophils/100 WBC (Bld) 0.4 % 0.0 - 2.0 [facility] Work Phone: Erythrocyte distribution width (RBC) [Ratio] 16.8 % above high threshold See Below [facility] Work Phone: Comment on above: Reference Range: 11. 5 - 14.5 Hematocrit (Bld) [Volume fraction] 42.2 % See Below [facility] Work Phone: Comment on above: Reference Range: 41. 0 - 52.0 Hemoglobin (Bld) [Mass/Vol] 13.8 g/dL See Below [facility] Work Phone: Comment on above: Reference Range: 13. 5 - 17.5 Lymphocytes/100 WBC (Bld) 26.8 % See Below [facility] Work Phone: Comment on above: Reference Range: 13. 0 - 44.0 MCHC (RBC) [Mass/Vol] 32.7 g/dL See Below [facility] Work Phone: [phone] Comment on above: Reference Range: 32. 0 - 36.0 MCV (RBC) [Entitic vol] 91 fL 80 - 100 [facility] [place] Work Phone: Monocytes/100 WBC (Bld) 10.9 % 2.0 - 10.0 [facility] [place] Work Phone: Neutrophils/100 WBC (Bld) 60.4 % See Below [facility] [place] Work Phone: Comment on above: Reference Range: 40. 0 - 80.0 Platelets (Bld) [#/Vol] 228 10*3/uL 150 - 450 [facility] [place] Work Phone: RBC (Bld) [#/Vol] 4.66 {x10E12/L} See Below [facility] [place] Work Phone: Comment on above: Reference Range: 4.5 0 - 5.90 WBC (Bld) [#/Vol] 8.7 10*3/uL 4.4 - 11.3 [facility] [place] Work Phone: Complete Blood Count + Differential 0.00 {x10E9/L} See Below [facility] [place] Work Phone: [phone] Comment on above: Reference Range: 0.0 0 - 0.10 Complete Blood Count + Differential 0.10 {x10E9/L} See Below [facility] [place] Work Phone: [phone] Comment on above: Reference Range: 0.0 0 - 0.70 Complete Blood Count + Differential 0.90 {x10E9/L} See Below [facility] [place] Work Phone: [phone] Comment on above: Reference Range: 0.1 0 - 1.00 Complete Blood Count + Differential 2.30 {x10E9/L} See Below [facility] [place] Work Phone: [phone] Comment on above: Reference Range: 1.2 0 - 4.80 Complete Blood Count + Differential 5.20 {x10E9/L} See Below [facility] [place] Work Phone: [phone] Comment on above: Reference Range: 1.2 0 - 7.70 Percent differential counts (%) should be interpreted in the context of the absolute cell counts (cells/L). Complete Blood Count + Differential 1.5 % 0.0 - 6.0 [facility] [place] Work Phone: [phone] Complete Blood Count + Differential 0.1 {/100_WBC} [facility] [place] Work Phone: [phone] Laboratory - Chemistry and C hemistry - challengeon 06-01-2022 Anion gap [Moles/Vol] 8 mmol/L below low threshold 10 - 20 [facility] [place] Work Phone: [phone] Calcium [Mass/Vol] 8.7 mg/dL 8.6 - 10.3 [facility] [place] Work Phone: [phone] Chloride [Moles/Vol] 99 mmol/L 98 - 107 [facility] [place] Work Phone: [phone] CO2 [Moles/Vol] 34 mmol/L above high threshold 21 - 32 [facility] Work Phone: [phone] Creatinine [Mass/Vol] 0.62 mg/dL See Below [facility] Work Phone: [phone] Comment on above: Reference Range: 0.5 0 - 1.30 Glucose [Mass/Vol] 96 mg/dL 74 - 99 [facility] [place] Work Phone: [phone] Potassium [Moles/Vol] 4.1 mmol/L 3.5 - 5.3 [facility] [place] Work Phone: Sodium [Moles/Vol] 137 mmol/L 136 - 145 [facility] [place] Work Phone: [phone] Urea nitrogen [Mass/Vol] 17 mg/dL 6 - 23 [facility] Work Phone: [phone] MAGNESIUMon 06-01-2022 Magnesium [Mass/Vol] 1.98 mg/dL Normal 1.60 - 2.40 [facility] Comment on above: Performed By: #### M G #### [address] [address] Magnesium, Serumon 2 Magnesium [Mass/Vol] 1.98 mg/dL See Below [facility] [place] Work Phone: [phone] Comment on above: Reference Range: 1.6 0 - 2.40 No Panel Informationon 06-01 >90 >90 [facility] Work Phone: [phone] Comment on above: CALCULATIONS OF ROHAN MATED GFR ARE PERFORMED USING THE 2020 CKD-EPI STUDY REFIT EQUATION WITHOUT THE RACE VARIABLE FOR THE IDMS-TRACEABLE CREATININE METHODS.https://jasn.asnjournals.org/content/early/ASN .5206406867 PHENYTOINon 06-01-2022 Phenytoin [Mass/Vol] 7.1 ug/mL Low 10.0 - 20.0 [facility] Comment on above: Performed By: #### P HNYT #### [address] [address] Phenobarbital Level, Serumon 06-01-2022 PHENobarbital [Mass/Vol] 30.0 ug/mL See Below [facility] Work Phone: [phone] Comment on above: Reference Range: 10. 0 - 40.0 Phenytoin Level, Serumon Phenytoin [Mass/Vol] 7.1 ug/mL below low threshold See Below [facility] Work Phone: Comment on above: Reference Range: 10. 0 - 20.0 Provider Note - ED v3on 05-14 Provider Note - ED v3 Provider Note: Chart Review: ED NOTES ED NOTES: CC=SEIZURE/FALL HPI=This is 62-year-old male with longstanding history of seizure disorder on Dilantin and phenobarbital. He apparently had a seizure and fell forward out of his wheelchair striking his head resulting in a laceration. He had multiple falls with multiple facial injuries from his seizures in the past. He was postictal at the scene according to the nursing staff and was transported here to the emergency department according to paramedics was back to his normal baseline prior to arrival here. Complains of some minimal pain in the neck but otherwise other than the laceration denies any significant pains PM HX=Positive for seizure disorder [id number] resident of facility does not smoke or drink there HISTORY OF PRESENTING ILLNESS PANCHO is a 62 year old Male and was seen by me at 01-Jun-2022 16:19 for a chief complaint of fall (Brought to ED per [facility] squad from intermediate after unwitnessed fall from wheelchair. Unk LOC. Pt has lac to forehead. He also has history of seizure disorder and had 2 seizures yesterday and one earlier today. EMS reports that he seemed postictal on their arrival to the facility, but they report that he is much more alert upon arrival to ER.)(1). Triage Information: Most recent Vital Sign Value Date Temp (F): 98.1 06-01-2022 16:26 Temp (C): 36.7 06-01-2022 16:26 Heart Rate (beats/min): 71 06-01-2022 16:26 Respirations (breaths/min): 16 06-01-2022 16:26 SpO2 (%): 96 06-01-2022 16:26 BP Systolic (mm Hg): 137 06-01-2022 16:26 BP Diastolic (mm Hg): 105 06-01-2022 16:26 PAST MEDICAL HISTORY ALLERGIES/INTOLERANCES: No Known Allergies HEALTH HISTORY: No documented data. OUTPATIENT MEDICATIONS: Home Medications Review Status for Reconciliation: N/A Med Status: N/A No documented data. SIGNIFICANT EVENTS: Immunizations Description:Tdap Past Medical History Description:Schizophren ia Description:Bowel obstructions Description:Intelectual disability with behavioral disturbances Description:Hypothyroid Description:Cervical spine stenosis Description:obstructive sleep apnea Description:Dyslipidemi a REVIEW OF SYSTEMS CONSTITUTIONAL: POSITIVE for: malaise Negative for: chills and fever EYES: Negative for: vision changes ENMTEars: Negative for: pain Nose: (Facial laceration over the forehead) Negative for: congestion and discharge Throat/Neck: POSITIVE for: neck pain and neck stiffness CARDIOVASCULAR: Negative for: chest pain and palpitations RESPIRATORY: Negative for: cough and dyspnea GASTROINTESTINAL: Negative for: abdominal pain, nausea and vomiting; GENITOURINARY: Negative for: dysuria, frequency and hematuria; MUSCULOSKELETAL: POSITIVE for: neck pain INTEGUMENTARY: ( Forehead laceration) NEUROLOGICAL: ( Seizure) POSITIVE for: altered mental status; PSYCHIATRIC: Negative for: anxiety and depression HEME/LYMPH: Negative for: anemia and easy bleeding All other systems reviewed and are negative PHYSICAL EXAM CONSTITUTIONAL: Well appearing, well nourished, awake, alert, oriented to person, place, time/situation and in no apparent distress.Patient back to his normal baseline HENMT: Airway patent, ears with clear tympanic membranes bilaterally. Nasal mucosa clear. Mouth with normal mucosa. Throat has no vesicles, no oropharyngeal exudates and uvula is midline. Face with no lymph node enlargement.2 cm laceration right at the hairline in the center of the forehead is some minimal neck tenderness but mostly in the paravertebral muscles there is no bony deformity or step-off he has full range of motion both active and passive EYES: Clear bilaterally, pupils equal, round and reactive to light. CARDIOVASCULAR: Normal rate, regular rhythm. Heart sounds S1, S2. No murmurs, rubs or gallops. PMI non-displaced. RESPIRATORY: Breath sounds clear and equal bilaterally. GASTROINTESTINAL: Abdomen soft, non-distended, no rebound, no guarding. Bowel sounds normal in all 4 quadrants. MUSCULOSKELETAL: Spine appears normal, range of motion is not limited, no muscle or joint tenderness. NEUROLOGICAL: Alert and oriented, no focal deficits, no motor or sensory deficits. SKIN: Skin normal color for race, warm, dry and intact. 2 cm laceration in the center of the forehead at the scalp line there is no bony deformity or step-offs PSYCHIATRIC: Alert and oriented to person, place, time/situation. normal mood and affect. No apparent risk to self or others. HEME/LYMPH: No adenopathy or splenomegaly. No cervical, supraclavicular or inguinal lymphadenopathy. CRITICAL CARE RESULTS: Recent Lab Results: I have reviewed these laboratory results: Complete Blood Count + Differential 01-Jun-2022 17:20:00 ResultValue White Blood Cell Count 8.7 Nucleated Erythrocyte Count 0.1 Red Blood Cell Count 4.66 HGB 13.8 HCT 42.2 MCV 91 (more content not included)... Normal Merged With [facility] Triage - EDon 06-01-2022 Triage - ED Quick Triage: The patient and/or guardian verbally acknowledges placement for services into the following (when Urgent Care Service hours are operating):emergency department Chart Review: ARRIVAL INFORMATION Mode of Arrival: ambulance Agency Name: [facility] CHIEF COMPLAINT PANCHO MCPHERSON is a Male patient with a chief complaint of fall (Brought to ED per [facility] squad from intermediate after unwitnessed fall from wheelchair. Unk LOC. Pt has lac to forehead. He also has history of seizure disorder and had 2 seizures yesterday and one earlier today. EMS reports that he seemed postictal on their arrival to the facility, but they report that he is much more alert upon arrival to ER.). Triage Date/Time: 01-Jun-2022 16:26 MARYA: 3 Pain Rating (0-10): 5 = Moderate Pain location: [place] Vital Signs: Temperature: 98.1F ( 36.7C) taken temporal Blood Pressure: 137/105 Mean: Heart Rate: 71 Respiratory Rate: 16 Pulse Oximetry: 96% on room air, no respiratory support. Weight: 160.9 pounds. Calculated 73.0 kg. Moodus Coma Scale: Best Eye Response: (E4) spontaneous Best Motor Response: (M6) obeys commands Best Verbal Response: (V5) oriented Moodus Score: 15 Cough lasting greater than 3 weeks: no Allergies: no Patient has homicidal thoughts: no Problem: Problem Type: laceration on the anterior forehead. Image has been removed. Symptoms Are POSITIVE For: bleeding and pain (describe). Symptoms Are Negative For: abrasion, bruising, confusion, decreased ROM, deformity, loss of consciousness, numbness and seizure. Risk Screens Suicide Risk Screen In the Past Month: Have you wished you were or wished you could go to sleep and not wake up no In the Past Month: Have you had any actual thoughts of killing yourself no In Your Lifetime: Have you ever done anything, started to do anything, or prepared to do anything to end your life no Padron Fall Scale Screening Has the patient fallen before (or is the patient in the ED as a result of a fall) has had a fall Does the patient have an impaired gait has impaired gait Is the patient cognitively impaired not cognitively impaired Padron Fall Scale History of falling (immediate or previous) no (0) Secondary Diagnosis yes (15) Intravenous Therapy/ Heparin/Saline Lock no (0) Gait/Transferring normal/bedrest/wheelcha ir (0) Ambulatory Aids none/bedrest/nurse assist (0) Mental Status oriented to own ability (0) Padron Fall Risk Score: 15 Interventions: Padron Fall Interventions: LOW INTERVENTIONS: *patient oriented to surroundings and call system, * patient/family falls education completed and documented, *patients fall status communicated during bedside handoff, *whiteboard updated, *mode of toileting discussed with patient, *bed in low position with brakes locked, *call light in reach, * non-skid footwear TRAVEL HISTORY Travel History Coronavirus Screening: no exposure or symptoms Travel Exposure History: NO travel to International locations in the past 30 days PAIN Pain Scale Used: MADHAVI Pain Rating (0-10): 5 = Moderate Past Medical History: Past Medical History Reviewedyes Electronic Signatures: Carla Adorno (ARIANNA) (Signed 01-Jun-2022 16:33) Authored: Quick Triage, Risk Screens, Pain, Travel History, Chart Review, Scores, Past Medical History Last Updated: 01-Jun-2022 16:33 by Carla Adorno (ARIANNA) [facility] PT Progress Noteon 2 PT Progress Note Therapy Diagnosis Assessed Bilateral leg weakness (729.89) (R29.898) General weakness (780.79) (R53.1) Osteoarthritis of spine with radiculopathy, cervical region (721.0) (M47.22) S/P cervical spinal fusion (V45.4) (Z98.1) Plan Goals: Goals set and discussed today. Able to complete seated LE strengthening program with assistance from caregiver for management of condition, by week 3, goal met Activity Limitation: Decrease disability as assessed by Oswestry to less than or equal to 36% disability for improved QOL. N/T this date, by week 3, goal met Coordination: Pt will demo improved reciprocal use of BLE's to pull/push himself in W/C on even surfaces for improved independence with mobility., by week 4, goal met Strength: Increase R and L LE strength to 3/5 throughout for improved ability to participate in transfers, by week 3, goal met Transfers: Able to complete STS transfer with max A x 2 for return to level of function prior to surgery - not assessed, by week 3, goal partially met Planned interventions include: education/instruction, home program, manual therapy, neuromuscular re-education, self care/home management, therapeutic activities and therapeutic exercises . static/dynamic sitting balance, LE strengthening, as LE strength improves script requests transfer training and gait training Attempt Dynadisc in sitting. Frequency and duration: No further visits planned. Potential to achieve rehab goals is good Assessment Mr. Mcpherson is progressing well through their POC. The pt demonstrates and verbalizes improvements in BLE strength and functional mobility which is helping with bed mobility, w/c mobility, and transfers. Pt's caregivers and pt with good understanding of HEP and are compliant therefore, pt is being placed on hold for 30 days to attempt performing their home exercise program independently. Pt instructed to contact with any problems, questions, or adjustments. This will serve as the patient?s discharge if they elect not to resume skilled PT within 30 days. Pt verbalized understanding and agreement to goals and POC. Thank you for this referral and please call [phone] with any questions or concerns. Adult Risk Screening There are no spiritual/cultural practices/values/needs that are important to know Initial Fall Risk Screening: PANCHO has not fallen in the last 6 months. PANCHO has a fear of falling. He needs assistance with . Needs assistance walking in his home. He needs assistance in an unfamiliar setting. The patient is using an assistive device. Fall Risk Screening: Patient is identified as a fall risk. Care Plan: High Risk: Low and Moderate risk interventions plus: ensure patient is escorted at all times, do not leave unattended, inform provider of high risk status, discharge by wheelchair or escort assistance, room location, sitter, pre and post sedation/procedure standards, supervised toileting. Insurance Insurance reviewed Visit number: 17 Approved number of visits: 13 total Authorization date range: 04/01/22 Authorization required after evaluation supervising PT DT [employer] Medicare, medically necessary, $233 deductible met and 20% co-insurance Onset Date: 2021 Medicare Certification Period: Beginnin2021 Endin2021 Subjective Patient reports:. Pt arrives 9 min late to session. Pt reports improvements in strength since starting PT services. His caretakers state he is able to use his LEs more and can lift his bottom up more since PT started. Pt wants to attempt HEP IND. Patient identified by name and date of . Home program performing as directed: Yes. Precautions: seizures. Fall Risk: high seizure disorder, Akhil transfer, w/c dependent, cervical fusion. Objective Ortho mobility: propels w/c using feet, hands with min to mod A from caregiver for direction > w/c propulsion with BUE only 240 feet with no VCs for direction, pt also able to turn IND using just BUE. L LE MMT: hip flex 2/5-->4-/5-->4/5 > 4+ /5 hip abd 2/5->3-/5-->3+/5 SEATED > 4- /5 hip add 2/5-->4/5->5/5 > 5/5 knee flex 2/5-->3+/5 > 4+ /5 knee ext 2/5->3+/5 > 4- /5 ankle DF 2/5-->2+/5->3+/5 > 4- /5 R LE MMT: hip flex 1/5-->3+/5-->4-/5 > 4+ /5 hip abd 1/5-->3-/5 > 3+ /5 hip add 1/5-->4/5-->5/5 knee flex 1/5-->2+/5->4/5 > 4+ /5 knee ext 1/5-->2+/5-->3+/5 > 4- /5 ankle DF 1/5-->2+/5-->3+/5-->3+/ 5 > 3+ /5 RUE MMT: grossly 4-/5 > 4 /5 LUE MMT: grossly 3+/5 > 4 /5 *difficult to complete MMT due to pt difficulty following one step commands transfers: akhil > . Treatment Time in clinic started at 9:39 am Time in clinic ended at 10:10 am Total time in clinic is 31 minutes. Total timed code time is 30 minutes. Therapeutic exercise (67328): timed minutes 30, units 2 . Recheck, review HEP, review POC Nustep 6? LE only seated october 2 x 10 ea LE Seated LAQ 2x10ea LE NOT TODAY seated hip add 2 x 10 seated hip abd with Green TB x 10 ea side (more content not included)... Normal myinfoQ Therapy Re-eval Noteon 05-02 Therapy Re-eval Note Therapy Diagnosis Assessed 1. Bilateral leg weakness (729.89) (R29.898) 2. General weakness (780.79) (R53.1) 3. Osteoarthritis of spine with radiculopathy, cervical region (721.0) (M47.22) 4. S/P cervical spinal fusion (V45.4) (Z98.1) Plan Goals: Goals set and discussed today. Able to complete seated LE strengthening program with assistance from caregiver for management of condition, by week 3, goal met Activity Limitation: Decrease disability as assessed by Oswestry to less than or equal to 36% disability for improved QOL. N/T this date, by week 3, goal met Coordination: Pt will demo improved reciprocal use of BLE's to pull/push himself in W/C on even surfaces for improved independence with mobility., by week 4, goal met Strength: Increase R and L LE strength to 3/5 throughout for improved ability to participate in transfers, by week 3, goal met Transfers: Able to complete STS transfer with max A x 2 for return to level of function prior to surgery - not assessed, by week 3, goal partially met Planned interventions include: education/instruction, home program, manual therapy, neuromuscular re-education, self care/home management, therapeutic activities and therapeutic exercises . static/dynamic sitting balance, LE strengthening, as LE strength improves script requests transfer training and gait training Attempt Dynadisc in sitting. Frequency and duration: No further visits planned. Potential to achieve rehab goals is good Assessment Mr. Mcpherson is progressing well through their POC. The pt demonstrates and verbalizes improvements in BLE strength and functional mobility which is helping with bed mobility, w/c mobility, and transfers. Pt's caregivers and pt with good understanding of HEP and are compliant therefore, pt is being placed on hold for 30 days to attempt performing their home exercise program independently. Pt instructed to contact with any problems, questions, or adjustments. This will serve as the patient?s discharge if they elect not to resume skilled PT within 30 days. Pt verbalized understanding and agreement to goals and POC. Thank you for this referral and please call [phone] with any questions or concerns. Adult Risk Screening There are no spiritual/cultural practices/values/needs that are important to know Initial Fall Risk Screening: PANCHO has not fallen in the last 6 months. PANCHO has a fear of falling. He needs assistance with . Needs assistance walking in his home. He needs assistance in an unfamiliar setting. The patient is using an assistive device. Fall Risk Screening: Patient is identified as a fall risk. Care Plan: High Risk: Low and Moderate risk interventions plus: ensure patient is escorted at all times, do not leave unattended, inform provider of high risk status, discharge by wheelchair or escort assistance, room location, sitter, pre and post sedation/procedure standards, supervised toileting. Insurance Insurance reviewed Visit number: 17 Approved number of visits: 13 total Authorization date range: 04/01/22 Authorization required after evaluation supervising PT BELLE [employer] Medicare, medically necessary, $233 deductible met and 20% co-insurance Onset Date: 2021 Medicare Certification Period: Beginnin2021 Endin2021 Subjective Patient reports:. Pt arrives 9 min late to session. Pt reports improvements in strength since starting PT services. His caretakers state he is able to use his LEs more and can lift his bottom up more since PT started. Pt wants to attempt HEP IND. Patient identified by name and date of . Home program performing as directed: Yes. Precautions: seizures. Fall Risk: high seizure disorder, Ahkil transfer, w/c dependent, cervical fusion. Objective Ortho mobility: propels w/c using feet, hands with min to mod A from caregiver for direction > w/c propulsion with BUE only 240 feet with no VCs for direction, pt also able to turn IND using just BUE. L LE MMT: hip flex 2/5-->4-/5-->4/5 > 4+ /5 hip abd 2/5->3-/5-->3+/5 SEATED > 4- /5 hip add 2/5-->4/5->5/5 > 5/5 knee flex 2/5-->3+/5 > 4+ /5 knee ext 2/5->3+/5 > 4- /5 ankle DF 2/5-->2+/5->3+/5 > 4- /5 R LE MMT: hip flex 1/5-->3+/5-->4-/5 > 4+ /5 hip abd 1/5-->3-/5 > 3+ /5 hip add 1/5-->4/5-->5/5 knee flex 1/5-->2+/5->4/5 > 4+ /5 knee ext 1/5-->2+/5-->3+/5 > 4- /5 ankle DF 1/5-->2+/5-->3+/5-->3+/ 5 > 3+ /5 RUE MMT: grossly 4-/5 > 4 /5 LUE MMT: grossly 3+/5 > 4 /5 *difficult to complete MMT due to pt difficulty following one step commands transfers: akhil > . Treatment Time in clinic started at 9:39 am Time in clinic ended at 10:10 am Total time in clinic is 31 minutes. Total timed code time is 30 minutes. Therapeutic exercise (33251): timed minutes 30, units 2 . Recheck, review HEP, review POC Nustep 6? LE only seated october 2 x 10 ea LE Seated LAQ 2x10ea LE NOT TODAY seated hip add 2 x 10 seated hip abd with Green TB x (more content not included)... Normal Touchworks PT Progress Noteon 2 PT Progress Note Therapy Diagnosis Assessed Bilateral leg weakness (729.89) (R29.898) General weakness (780.79) (R53.1) S/P cervical spinal fusion (V45.4) (Z98.1) Osteoarthritis of spine with radiculopathy, cervical region (721.0) (M47.22) Plan Goals: Goals set and discussed today. Able to complete seated LE strengthening program with assistance from caregiver for management of condition, by week 3, goal met Activity Limitation: Decrease disability as assessed by Oswestry to less than or equal to 36% disability for improved QOL. N/T this date, by week 3, goal met Coordination: Pt will demo improved reciprocal use of BLE's to pull/push himself in W/C on even surfaces for improved independence with mobility., by week 4 Strength: Increase R and L LE strength to 3/5 throughout for improved ability to participate in transfers, by week 3, goal partially met Transfers: Able to complete STS transfer with max A x 2 for return to level of function prior to surgery, by week 3, goal partially met Planned interventions include: education/instruction, home program, manual therapy, neuromuscular re-education, self care/home management, therapeutic activities and therapeutic exercises . static/dynamic sitting balance, LE strengthening, as LE strength improves script requests transfer training and gait training Attempt Dynadisc in sitting. Frequency and duration: 1 time(s) a week, for 4 weeks, for 4 visits . pending insurance approval. Potential to achieve rehab goals is good Patient will have re-eval next visit, continue to work on HEP at this time as fatigue allows. Progress with POC, as tolerated. Assessment Observed very mild tremors in the UE's this date when patient was at rest. Patient seemed very fatigued with all treatment activities this date. Patient did attempt to complete cone taps on the R but had a lot of difficulty when trying to actively lift his foot off the floor. Was able to on the L.. Added bolster rolls using LE's this date with patient able to complete on the L but needed assist on the R. Was easier to pull the bolster towards him easier than when attempting to roll fwd. Patient was able to complete today's treatment with some difficulty. Adult Risk Screening There are no spiritual/cultural practices/values/needs that are important to know Initial Fall Risk Screening: PANCHO has not fallen in the last 6 months. PANCHO has a fear of falling. He needs assistance with . Needs assistance walking in his home. He needs assistance in an unfamiliar setting. The patient is using an assistive device. Fall Risk Screening: Patient is identified as a fall risk. Care Plan: High Risk: Low and Moderate risk interventions plus: ensure patient is escorted at all times, do not leave unattended, inform provider of high risk status, discharge by wheelchair or escort assistance, room location, sitter, pre and post sedation/procedure standards, supervised toileting. Insurance Insurance reviewed Visit number: 16 Approved number of visits: 13 total Authorization date range: 04/01/22 Authorization required after evaluation supervising PT BELLE Carmen Medicare, medically necessary, $233 deductible met and 20% co-insurance Onset Date: 2021 Medicare Certification Period: Beginnin2021 Endin2021 Subjective Patient reports:. Patient arrived agitated and verbally cursing at primary pharmacy care coordinator. Patient stated that his knee was hurting right above his knee that started last night Caregiver states that Tylenol was given for the knee pain. Caregiver states that he has started to have more seizures lately. States that he was in bed around 4 pm d/t being fatigued on . Patient identified by name and date of . Home program performing as directed: Yes. Precautions: seizures. Fall Risk: high seizure disorder, Akhil transfer, w/c dependent, cervical fusion. Treatment Time in clinic started at 9:21 Time in clinic ended at 10:00 Total time in clinic is 39 minutes. Total timed code time is 38 minutes. Therapeutic exercise (58399): timed minutes 38, units 3 . Nustep 7? LE only Seated LE cone taps for motor control 2 x 10 Push up wth arms x 10 W/C scoots x 157 feet (using arms and feet) (X) Seated camacho bag throws x 10 each arm Seated camacho bag kicks x 5 each leg Rows 2 x 15 [place] tube (x) Shld Ext 2 x 10 [place] Tube (X) Bicep curls 2 x 10 green band see TA below seated october 2 x 10 ea LE seated hip add 2 x 10 seated hip abd with Green TB x 10 ea side Seated LAQ 2x10ea LE HSC with ISO cues x10 orange band (X) HSC with orange TB with Corina for movements x10 (X) Glute Set x10 Not performed: seated heel raises 2 x 10 with assist (X) seated toe raises x 10 with assist (X). UBE* 3' fwd and 3' bwd (D/C UBE next visit). Therapeutic Activity (27630): timed minutes 5, units 0 . propel w/c with feet x 30ft (holding 2# ball with BUE's) - x15ft on carpet with L LE, 15ft (more content not included)... Normal myinfoQ PT Progress Noteon 2 PT Progress Note Therapy Diagnosis Assessed Bilateral leg weakness (729.89) (R29.898) General weakness (780.79) (R53.1) S/P cervical spinal fusion (V45.4) (Z98.1) Osteoarthritis of spine with radiculopathy, cervical region (721.0) (M47.22) Plan Goals: Goals set and discussed today. Able to complete seated LE strengthening program with assistance from caregiver for management of condition, by week 3, goal met Activity Limitation: Decrease disability as assessed by Oswestry to less than or equal to 36% disability for improved QOL. N/T this date, by week 3, goal met Coordination: Pt will demo improved reciprocal use of BLE's to pull/push himself in W/C on even surfaces for improved independence with mobility., by week 4 Strength: Increase R and L LE strength to 3/5 throughout for improved ability to participate in transfers, by week 3, goal partially met Transfers: Able to complete STS transfer with max A x 2 for return to level of function prior to surgery, by week 3, goal partially met Planned interventions include: education/instruction, home program, manual therapy, neuromuscular re-education, self care/home management, therapeutic activities and therapeutic exercises . static/dynamic sitting balance, LE strengthening, as LE strength improves script requests transfer training and gait training Attempt Dynadisc in sitting. Frequency and duration: 1 time(s) a week, for 4 weeks, for 4 visits . pending insurance approval. Potential to achieve rehab goals is good Will continue to focus on LE strength for improved mobility as able too. Will try to add Dynadisc next visit for seated exercises. Progress with POC, as tolerated. Assessment Had difficulty getting patient to follow directions at start of session. Had patient try camacho bag kicks and tosses to facilitate motor control of LE and UE's, which he enjoyed. Patient completed W/C scoots but needed cues to lift pull with the R LE. Fatigued quickly with W/C scoots this date but was able to go further than last visit. Was able to lift his legs to place on the NUSTEP but still needed Min A for placement on the L d/t motor control deficits. Patient was able to complete today's treatment with some difficulty. Adult Risk Screening There are no spiritual/cultural practices/values/needs that are important to know Initial Fall Risk Screening: PANCHO has not fallen in the last 6 months. PANCHO has a fear of falling. He needs assistance with . Needs assistance walking in his home. He needs assistance in an unfamiliar setting. The patient is using an assistive device. Fall Risk Screening: Patient is identified as a fall risk. Care Plan: High Risk: Low and Moderate risk interventions plus: ensure patient is escorted at all times, do not leave unattended, inform provider of high risk status, discharge by wheelchair or escort assistance, room location, sitter, pre and post sedation/procedure standards, supervised toileting. Insurance Insurance reviewed Visit number: 15 Approved number of visits: 13 total Authorization date range: 04/01/22 Authorization required after evaluation supervising PT BELLE [employer] Medicare, medically necessary, $233 deductible met and 20% co-insurance Onset Date: 2021 Medicare Certification Period: Beginnin2021 Endin2021 Subjective Patient reports:. Patient arrived verbally insulting main caregiver by calling her derogatory names. Stated that he Did not like her many times at beginning of session. There were 2 caregivers that came with patient today. Caregiver stated that he started lashing out last week and his demeanor changed, stated that they were testing for UTI but MD put him on antibiotic for it. Patient identified by name and date of . Home program performing as directed: Yes. Precautions: seizures. Fall Risk: high seizure disorder, Akhil transfer, w/c dependent, cervical fusion. Treatment Time in clinic started at 10:20 Time in clinic ended at 10:45 Total time in clinic is 42 minutes. Total timed code time is 38 minutes. Therapeutic exercise (92871): timed minutes 38, units 3 . Nustep 6? LE only Seated LE cone taps for motor control 2 x 10 Push up wth arms x 10 W/C scoots x 157 feet (using arms and feet) Seated camacho bag throws x 10 each arm (N) Seated camacho bag kicks x 5 each leg (N) Rows 2 x 15 [place] tube (x) Shld Ext 2 x 10 [place] Tube (X) Bicep curls 2 x 10 green band see TA below seated october 2 x 10 ea LE seated hip add 2 x 10 seated hip abd with Green TB x 10 ea side Seated LAQ 2x10ea LE HSC with ISO cues x10 orange band (X) HSC with orange TB with Corina for movements x10 (X) Glute Set x10 Not performed: seated heel raises 2 x 10 with assist (X) seated toe raises x 10 with assist (X). UBE* 3' fwd and 3' bwd (D/C UBE next visit). Therapeutic Activity (53936): timed minutes 5, units 0 . propel w/c with feet x 30ft (holding 2# ball with BUE's) - x15ft on carpe (more content not included)... Normal Touchworks Cult, Urineon 04-15-2022 Bacteria identified Cx Nom (U) Abnormal [facility] [place] Work Phone: URINALYSISon 04-15-2022 Appearance (U) CLEAR Normal CLEAR [facility] Comment on above: Order Comment: Valentine De La Vega [facility], [place] [id number] Performed By: #### U ARFX #### [facility] [address] [place] [address] Bilirubin Ql (U) Negative Normal NEGATIVE [facility] Comment on above: Order Comment: Valentine De La Vega [place] [address], [place] [id number] Performed By: #### U ARFX #### [address] [address] Color (U) YELLOW Normal STRAW,YELLOW [facility] Comment on above: Order Comment: Valentine De La Vega [address] [id number] Performed By: #### U ARFX #### [address] [address] Glucose Ql (U) Negative Normal NEGATIVE [facility] Comment on above: Order Comment: Valentine De La Vega [address] [id number] Performed By: #### U ARFX #### [address] [address] Hemoglobin Ql (U) Negative Normal NEGATIVE [facility] Comment on above: Order Comment: Valentine De La Vega [address] [id number] Performed By: #### U ARFX #### [address] [address] Ketones Ql (U) Negative Normal NEGATIVE [facility] Comment on above: Order Comment: Valentine De La Vega [address] [id number] Performed By: #### U ARFX #### [address] [address] Leukocyte esterase Test strip Ql (U) Negative Normal NEGATIVE [facility] Comment on above: Order Comment: Valentine De La Vega [address] [id number] Performed By: #### U ARFX #### [address] [address] Nitrite Ql (U) Negative Normal NEGATIVE [facility] Comment on above: Order Comment: Valentine De La Vega [address] [id number] Performed By: #### U ARFX #### [address] [address] pH (U) 5.5 [pH] Normal 5.0 - 8.0 [facility] Comment on above: Order Comment: Valentine De La Vega [address] [id number] Performed By: #### U ARFX #### [address] [address] Protein Ql (U) Negative Normal NEGATIVE [facility] Comment on above: Order Comment: Valentine De La Vega [address] [id number] Performed By: #### U ARFX #### [address] [address] Specific gravity (U) [Rel density] 1.020 Normal 1.005 - 1.035 [facility] Comment on above: Order Comment: Valentine De La Vega [address] [id number] Performed By: #### U ARFX #### [address] [address] Urobilinogen (U) [Mass/Vol] mg/dL Normal 0.0 - 1.9 [facility] Comment on above: Order Comment: Valentine De La Vega [address] [id number] Performed By: #### U ARFX #### [address] [address] URINE CULTURE,BACTERIALon URINE CULTURE,BACTERIAL Deborah De La Vega [address] [place] [address] [phone] [id number] PATIENT: PANCHO MCPHERSON LOCATION: [facility]#: [id number] : 58 AGE: SEX: M ORDERED BY: AMBULATORY FARAZ, PHYSICIAN SOURCE: URINE COLLECTED: 04/15/22 16:40 ANTIBIOTICS AT JUVENCIO.: RECEIVED : 04/16/22 00:44 SITE: Clean Catch/Voided R E S U L T S URINE CULTURE,BACTERIAL FINAL 04/17/22 07:28 MULTIPLE ORGANISMS PRESENT, PROBABLE CONTAMINATION PLEASE REPEAT CULTURE. [facility] Comment on above: Performed By: #### U [facility] #### [facility] [address] [place] [address] Urinalysison 04-15-2022 Color (U) YELLOW See Below [facility] [place] Work Phone: Comment on above: Reference Range: STR AW,YELLOW Glucose Ql (U) Negative NEGATIVE [facility] Work Phone: Ketones Ql (U) Negative NEGATIVE [facility] [employer] [facility] Work Phone: Leukocyte esterase Test strip Ql (U) Negative NEGATIVE [facility] Work Phone: pH (U) 5.5 [pH] 5.0 - 8.0 [facility] Work Phone: Protein (U) [Mass/Vol] Negative NEGATIVE [facility] Work Phone: RBC (U) [#/Vol] Negative NEGATIVE [facility] Work Phone: Specific gravity (U) [Rel density] 1.020 1 See Below [facility] [place] Work Phone: Comment on above: Reference Range: 1.0 05 - 1.035 Urinalysis Negative NEGATIVE [facility] [place] Work Phone: Urinalysis <2.0 0.0 - 1.9 [facility] Work Phone: Urinalysis CLEAR CLEAR [facility] [place] Work Phone: PT Progress Noteon 2 PT Progress Note Therapy Diagnosis Assessed Bilateral leg weakness (729.89) (R29.898) General weakness (780.79) (R53.1) S/P cervical spinal fusion (V45.4) (Z98.1) Osteoarthritis of spine with radiculopathy, cervical region (721.0) (M47.22) Plan Goals: Goals set and discussed today. Able to complete seated LE strengthening program with assistance from caregiver for management of condition, by week 3, goal met Activity Limitation: Decrease disability as assessed by Oswestry to less than or equal to 36% disability for improved QOL. N/T this date, by week 3, goal met Coordination: Pt will demo improved reciprocal use of BLE's to pull/push himself in W/C on even surfaces for improved independence with mobility., by week 4 Strength: Increase R and L LE strength to 3/5 throughout for improved ability to participate in transfers, by week 3, goal partially met Transfers: Able to complete STS transfer with max A x 2 for return to level of function prior to surgery, by week 3, goal partially met Planned interventions include: education/instruction, home program, manual therapy, neuromuscular re-education, self care/home management, therapeutic activities and therapeutic exercises . static/dynamic sitting balance, LE strengthening, as LE strength improves script requests transfer training and gait training Attempt Dynadisc in sitting. Frequency and duration: 1 time(s) a week, for 4 weeks, for 4 visits . pending insurance approval. Potential to achieve rehab goals is good Will continue to focus on LE strength for improved mobility as able too. Progress with POC, as tolerated. Assessment Patient was being uncooperative with caregiver and therapist upon arrival into the clinic. Patient was 20 minutes late d/t caregiver trying to get him into the building. Was not very willing to participate in many therapy activities. Did get patient to go a lengthy distance with W/C scoots but mainly used his L LE but no UE's. Patient's R knee was mildly swollen when compared to L upon observation. Did not c/o pain when doing W/C scoots. Patient was able to complete today's treatment with some difficulty. Adult Risk Screening There are no spiritual/cultural practices/values/needs that are important to know Initial Fall Risk Screening: PANCHO has not fallen in the last 6 months. PANCHO has a fear of falling. He needs assistance with . Needs assistance walking in his home. He needs assistance in an unfamiliar setting. The patient is using an assistive device. Fall Risk Screening: Patient is identified as a fall risk. Care Plan: High Risk: Low and Moderate risk interventions plus: ensure patient is escorted at all times, do not leave unattended, inform provider of high risk status, discharge by wheelchair or escort assistance, room location, sitter, pre and post sedation/procedure standards, supervised toileting. Insurance Insurance reviewed Visit number: 13 Approved number of visits: 13 total Authorization date range: 04/01/22 Authorization required after evaluation supervising PT DT [employer] Medicare, medically necessary, $233 deductible met and 20% co-insurance Onset Date: 2021 Medicare Certification Period: Beginnin2021 Endin2021 Subjective Patient reports:. Patient stated that he did not want to come to PT today. Patient stated towards the end of his session that his R knee was hurting today, Caregiver stated that he unbuckled himself from his W/C the other day at workshop and slid out onto the floor. Patient identified by name and date of . Home program performing as directed: Yes. Precautions: seizures. Fall Risk: high seizure disorder, Akhil transfer, w/c dependent, cervical fusion. Treatment Time in clinic started at 10:20 Time in clinic ended at 10:45 Total time in clinic is 25 minutes. Total timed code time is 24 minutes. Therapeutic exercise (81057): timed minutes 24, units 2 . Arrived 20 minutes late today d/t being uncooperative in the parking lot with caregivers Nustep 6? LE only Seated LE cone taps for motor control 2 x 10 Push up wth arms x 10 W/C scoots x 109 feet Rows 2 x 15 [place] tube (x) Shld Ext 2 x 10 [place] Tube (X) Bicep curls 2 x 10 green band see TA below seated october 2 x 10 ea LE seated hip add 2 x 10 seated hip abd with Green TB x 10 ea side Seated LAQ 2x10ea LE HSC with ISO cues x10 orange band (X) HSC with orange TB with Corina for movements x10 (X) Glute Set x10 Not performed: seated heel raises 2 x 10 with assist (X) seated toe raises x 10 with assist (X). UBE* 3' fwd and 3' bwd (D/C UBE next visit). Therapeutic Activity (21353): timed minutes 5, units 0 . propel w/c with feet x 30ft (holding 2# ball with BUE's) - x15ft on carpet with L LE, 15ft on even surface with R LE x10ft with alt LE's Not 03/28/22 Transfer Training -scooting fwd/bwd attempted able to push bwd (X) press up from W/C with B UE and use of LE's. x10 (X) . Pro (more content not included)... Normal Touchworks CBC AND DIFFERENTIALon 04-04 Basophils (Bld) [#/Vol] 0.00 10*3/uL Normal 0.00 - 0.10 [facility] Comment on above: Order Comment: DAVID SCHUMACHER [facility] Performed By: #### U AMIC #### [address] [address] Basophils/100 WBC (Bld) 0.4 % Normal 0.0 - 2.0 [facility] Comment on above: Order Comment: DAVID SCHUMACHER [facility] Performed By: #### U AMIC #### [address] [address] Eosinophils (Bld) [#/Vol] 0.20 10*3/uL Normal 0.00 - 0.70 [facility] Comment on above: Order Comment: DAVID SCHUMACHER [facility] Performed By: #### U AMIC #### [address] [address] Eosinophils/100 WBC (Bld) 1.5 % Normal 0.0 - 6.0 [facility] Comment on above: Order Comment: VALENTINE BURR CEFERINO [employer]SEM[employer] SUPERVISOR-OPERATIONS AND MAINTENANCE SPECIALIST [facility] Performed By: #### U AMIC #### [address] [address] Erythrocyte distribution width (RBC) [Ratio] 24.9 % High 11.5 - 14.5 [facility] Comment on above: Order Comment: VALENTINE DE LA VEGA [employer]SEM[employer] STOCK SUPERVISOR-OPERATIONS AND MAINTENANCE SPECIALIST [facility] Performed By: #### U AMIC #### [address] [address] Hematocrit (Bld) [Volume fraction] 44.0 % Normal 41.0 - 52.0 [facility] Comment on above: Order Comment: VALENTINE DE LA VEGA [employer]SEM[employer] ST[employer] SUPERVISOR-OPERATIONS AND MAINTENANCE SPECIALIST [facility] Performed By: #### U AMIC #### [address] [address] Hemoglobin (Bld) [Mass/Vol] 13.8 g/dL Normal 13.5 - 17.5 [facility] Comment on above: Order Comment: VALENTINE DANYEL [place] [employer]SEM[employer] SUPERVISOR-OPERATIONS AND MAINTENANCE SPECIALIST [facility] Performed By: #### U AMIC #### [address] [address] Lymphocytes (Bld) [#/Vol] 2.00 10*3/uL Normal 1.20 - 4.80 [facility] Comment on above: Order Comment: VALENTINE DE LA VEGA [employer]SEM[employer] ST[employer] SUPERVISOR-OPERATIONS AND MAINTENANCE SPECIALIST [facility] Performed By: #### U AMIC #### [address] [address] Lymphocytes/100 WBC (Bld) 18.4 % Normal 13.0 - 44.0 [facility] Comment on above: Order Comment: VALENTINE DE LA VEGA [employer]SEM[employer] SUPERVISOR-OPERATIONS AND MAINTENANCE SPECIALIST [facility] Performed By: #### U AMIC #### [address] [address] MCHC (RBC) [Mass/Vol] 31.4 g/dL Low 32.0 - 36.0 [facility] Comment on above: Order Comment: VALENTINE DE LA VEGA ASSEM[employer] ST[employer] SUPERVISOR-OPERATIONS AND MAINTENANCE SPECIALIST [facility] Performed By: #### U AMIC #### [address] [address] MCV (RBC) [Entitic vol] 86 fL Normal 80 - 100 [facility] Comment on above: Order Comment: VALENTINE DE LA VEGA [employer] SUPERVISOR-OPERATIONS AND MAINTENANCE SPECIALIST [facility] Performed By: #### U AMIC #### [address] [address] Monocytes (Bld) [#/Vol] 0.60 10*3/uL Normal 0.10 - 1.00 [facility] Comment on above: Order Comment: VALENTINE DE LA VEGA ASSEM[employer] SUPERVISOR-OPERATIONS AND MAINTENANCE SPECIALIST [facility] Performed By: #### U AMIC #### [address] [address] Monocytes/100 WBC (Bld) 5.6 % Normal 2.0 - 10.0 [facility] Comment on above: Order Comment: VALENTINE DE LA VEGA ASSEM[employer] STOCK SUPERVISOR-OPERATIONS AND MAINTENANCE SPECIALIST [facility] Performed By: #### U AMIC #### [address] [address] Neutrophils (Bld) [#/Vol] 8.20 10*3/uL High 1.20 - 7.70 [facility] Comment on above: Order Comment: VALENTINE DE LA VEGA ASSEMBLY STOCK SUPERVISOR-OPERATIONS AND MAINTENANCE SPECIALIST [facility] Result Comment: Perc ent differential counts (%) should be interpreted in the context of the absolute cell counts (cells/L). Performed By: #### U AMIC #### [address] [address] Neutrophils/100 WBC (Bld) 74.1 % Normal 40.0 - 80.0 [facility] Comment on above: Order Comment: VALENTINE DE LA VEGA ASSEMBLY STOCK SUPERVISOR-OPERATIONS AND MAINTENANCE SPECIALIST [facility] Performed By: #### U AMIC #### [address] [address] Platelets (Bld) [#/Vol] 276 10*3/uL Normal 150 - 450 [facility] Comment on above: Order Comment: VALENTINE DE LA VEGA ASSEMBLY STOCK SUPERVISOR-OPERATIONS AND MAINTENANCE SPECIALIST [facility] Performed By: #### U AMIC #### [address] [place] [address] RBC 5.12 x10E12/L Normal 4.50 - 5.90 [facility] Comment on above: Order Comment: VALENTINE BURR CEFERINO, ASSEMBLY STOCK SUPERVISOR-OPERATIONS AND MAINTENANCE SPECIALIST [facility] Performed By: #### U AMIC #### [address] [address] WBC (Bld) [#/Vol] 11.1 10*3/uL Normal 4.4 - 11.3 [facility] Comment on above: Order Comment: VALENTINE DANYEL DE LA VEGA, ASSEMBLY STOCK SUPERVISOR-OPERATIONS AND MAINTENANCE SPECIALIST [facility] Performed By: #### U AMIC #### [address] [address] Complete Blood Count + Diffe rentialon 04-04-2022 Basophils/100 WBC (Bld) 0.4 % 0.0 - 2.0 [facility] [place] Work Phone: Erythrocyte distribution width (RBC) [Ratio] 24.9 % above high threshold See Below [facility] [place] Work Phone: Comment on above: Reference Range: 11. 5 - 14.5 Hematocrit (Bld) [Volume fraction] 44.0 % See Below [facility] [place] Work Phone: Comment on above: Reference Range: 41. 0 - 52.0 Hemoglobin (Bld) [Mass/Vol] 13.8 g/dL See Below [facility] [place] Work Phone: Comment on above: Reference Range: 13. 5 - 17.5 Lymphocytes/100 WBC (Bld) 18.4 % [facility] [place] Work Phone: Comment on above: Reference Range: 13. 0 - 44.0 MCHC (RBC) [Mass/Vol] 31.4 g/dL below low threshold See Below [facility] [place] Work Phone: Comment on above: Reference Range: 32. 0 - 36.0 MCV (RBC) [Entitic vol] 86 fL 80 - 100 [facility] [place] Work Phone: Monocytes/100 WBC (Bld) 5.6 % 2.0 - 10.0 [facility] [place] Work Phone: Neutrophils/100 WBC (Bld) 74.1 % See Below [facility] [place] Work Phone: Comment on above: Reference Range: 40. 0 - 80.0 Platelets (Bld) [#/Vol] 276 10*3/uL 150 - 450 [facility] [place] Work Phone: RBC (Bld) [#/Vol] 5.12 {x10E12/L} See Below [facility] [place] Work Phone: Comment on above: Reference Range: 4.5 0 - 5.90 WBC (Bld) [#/Vol] 11.1 10*3/uL 4.4 - 11.3 [facility] [place] Work Phone: Complete Blood Count + Differential 0.00 {x10E9/L} [facility] Below [facility] [place] Work Phone: Comment on above: Reference Range: 0.0 0 - 0.10 Complete Blood Count + Differential 0.20 {x10E9/L} See Below [facility] [place] Work Phone: Comment on above: Reference Range: 0.0 0 - 0.70 Complete Blood Count + Differential 0.60 {x10E9/L} [facility] Below [facility] [place] Work Phone: Comment on above: Reference Range: 0.1 0 - 1.00 Complete Blood Count + Differential 2.00 {x10E9/L} See Below [facility] Work Phone: Comment on above: Reference Range: 1.2 0 - 4.80 Complete Blood Count + Differential 8.20 {x10E9/L} above high threshold See Below [facility] [place] Work Phone: Comment on above: Reference Range: 1.2 0 - 7.70 Percent differential counts (%) should be interpreted in the context of the absolute cell counts (cells/L). Complete Blood Count + Differential 1.5 % 0.0 - 6.0 [facility] [place] Work Phone: FERRITINon 04-04-2022 FERRITIN 50 ug/L Normal 20 - 300 [facility] Comment on above: Order Comment: VALENTINE DE LA VEGA APRN-[facility] Performed By: #### U AMI #### [address] [address] Ferritin, Serumon 04-04-2022 Ferritin [Mass/Vol] 50 ug/L 20 - 300 [facility] Work Phone: IRON + TIBCon 04-04-2022 % SATURATION 19 % Low 25 - 45 [facility] Comment on above: Order Comment: Valentine De La Vega CNP [address] [address] [phone] Performed By: #### I RONT #### [address] [address] Iron [Mass/Vol] 69 ug/dL Normal 35 - 150 [facility] Comment on above: Order Comment: Valentine De La Vega CNP [address] [address] [phone] Performed By: #### I RONT #### [address] [address] TIBC 354 ug/dL Normal 240 - 445 [facility] Comment on above: Order Comment: Valentine danyel De La Vega [address] [address] [phone] Performed By: #### I MARCUS #### [address] [address] Laboratory - Chemistry and C hemistry - challengeon 04-04-2022 Iron [Mass/Vol] 69 ug/dL 35 - 150 [facility] [place] Work Phone: Iron binding capacity [Mass/Vol] 354 ug/dL 240 - 445 [facility] [place] Work Phone: No Panel Informationon 04-04 MANY [facility] [place] Work Phone: SEE BELOW [facility] [place] Work Phone: 19 % below low threshold 25 - 45 [facility] [place] Work Phone: RED CELL MORPHOLOGYon 2021 RBC morphology finding Nom (Bld) SEE BELOW Normal [facility] Comment on above: Order Comment: Valentine De La Vega [address] [address] [phone] Performed By: #### M ORP2 #### [address] [address] SPHEROCYTES MANY Normal [facility] Comment on above: Order Comment: Valentine De La Vega [address] [address] [phone] Performed By: #### M ORP2 #### [address] [address] VITAMIN B12on 04-04-2022 Cobalamin (Vitamin B12) [Mass/Vol] 415 pg/mL Normal 211 - 911 [facility] Comment on above: Order Comment: VALENTINE DE LA VEGA APRN-[facility] Performed By: #### U AMI #### [facility] [address] [place] [address] Vitamin B12, Serumon 022 Cobalamin (Vitamin B12) [Mass/Vol] 415 pg/mL 211 - 911 [facility] Work Phone: PT Progress Noteon 2 PT Progress Note Therapy Diagnosis Assessed Bilateral leg weakness (729.89) (R29.898) General weakness (780.79) (R53.1) S/P cervical spinal fusion (V45.4) (Z98.1) Osteoarthritis of spine with radiculopathy, cervical region (721.0) (M47.22) Plan Goals: Goals set and discussed today. Able to complete seated LE strengthening program with assistance from caregiver for management of condition, by week 3, goal met Activity Limitation: Decrease disability as assessed by Oswestry to less than or equal to 36% disability for improved QOL. N/T this date, by week 3, goal met Coordination: Pt will demo improved reciprocal use of BLE's to pull/push himself in W/C on even surfaces for improved independence with mobility., by week 4 Strength: Increase R and L LE strength to 3/5 throughout for improved ability to participate in transfers, by week 3, goal partially met Transfers: Able to complete STS transfer with max A x 2 for return to level of function prior to surgery, by week 3, goal partially met Planned interventions include: education/instruction, home program, manual therapy, neuromuscular re-education, self care/home management, therapeutic activities and therapeutic exercises . static/dynamic sitting balance, LE strengthening, as LE strength improves script requests transfer training and gait training Attempt Dynadisc in sitting. Frequency and duration: 1 time(s) a week, for 4 weeks, for 4 visits . pending insurance approval. Potential to achieve rehab goals is good Trial dynadisc in sitting to increase need for core stability next visit. Progress with POC, as tolerated. Assessment Completed seated cones taps this date for first time with patient first tapping only one cone when seated. 2nd cone was place right beside the first then. Patient had minimally difficulty with the R LE but when he had use L had to keep stopping in between each cone tap. Was able to complete 3 really strong taps before fatigue set in on the L. Completed STS x 2 assist this date with gait belt donned. Patient was able to push self up through UE's and would not stand upright until last trial. Patient was very fatigued afterward. Add dynadisc next date for seated PRE's. Patient was able to complete today's treatment with some difficulty. Adult Risk Screening There are no spiritual/cultural practices/values/needs that are important to know Initial Fall Risk Screening: PANCHO has not fallen in the last 6 months. PANCHO has a fear of falling. He needs assistance with . Needs assistance walking in his home. He needs assistance in an unfamiliar setting. The patient is using an assistive device. Fall Risk Screening: Patient is identified as a fall risk. Care Plan: High Risk: Low and Moderate risk interventions plus: ensure patient is escorted at all times, do not leave unattended, inform provider of high risk status, discharge by wheelchair or escort assistance, room location, sitter, pre and post sedation/procedure standards, supervised toileting. Insurance Insurance reviewed Visit number: 12 Approved number of visits: 13 total Authorization date range: 04/01/22 Authorization required after evaluation supervising PT DT [employer] Medicare, medically necessary, $233 deductible met and 20% co-insurance Onset Date: 2021 Medicare Certification Period: Beginnin2021 Endin2021 Subjective Patient reports:. Patient says that he is ready for PT today. Says that he is getting new shoes soon. Notes that nothing hurts today. Caregiver states that he did not want to come to PT today. Patient identified by name and date of . Home program performing as directed: Yes. Precautions: seizures. Fall Risk: high seizure disorder, Akhil transfer, w/c dependent, cervical fusion. Treatment Time in clinic started at 9:15 Time in clinic ended at 10:00 Total time in clinic is 45 minutes. Total timed code time is 39 minutes. Therapeutic exercise (37193): timed minutes 39, units 2 . Nustep 6? LE only Seated LE cone taps for motor control 1 to 2 cones x 10 (N) STS 3 x 15 (N) W/C scoots x 10 feet R only Rows 2 x 15 [place] tube (x) Shld Ext 2 x 10 [place] Tube (X) Bicep curls 2 x 10 green band seated october 2 x 10 ea LE seated hip add 2 x 10 seated hip abd with Green TB x 10 ea side Seated LAQ 2x10ea LE HSC with ISO cues x10 orange band HSC with orange TB with Corina for movements x10 (X) Glute Set x10 Not performed: UBE* 3' fwd and 3' bwd (D/C UBE next visit) seated heel raises 2 x 10 with assist (X) seated toe raises x 10 with assist (X). Therapeutic Activity (44705): timed minutes . propel w/c with feet x 30ft (holding 2# ball with BUE's) - x15ft on carpet with L LE, 15ft on even surface with R LE x10ft with alt LE's Not 03/28/22 Transfer Training -scooting fwd/bwd attempted able to push bwd (X) press up from W/C with B UE and use of LE's. x10 (X) . Provided today:. [id number] Provided reviewed. (more content not included)... Normal myinfoQ PT Progress Noteon 2 PT Progress Note Therapy Diagnosis Assessed S/P cervical spinal fusion (V45.4) (Z98.1) Bilateral leg weakness (729.89) (R29.898) Osteoarthritis of spine with radiculopathy, cervical region (721.0) (M47.22) General weakness (780.79) (R53.1) Plan Goals: Goals set and discussed today. Able to complete seated LE strengthening program with assistance from caregiver for management of condition, by week 3, goal met Activity Limitation: Decrease disability as assessed by Oswestry to less than or equal to 36% disability for improved QOL. N/T this date, by week 3, goal met Coordination: Pt will demo improved reciprocal use of BLE's to pull/push himself in W/C on even surfaces for improved independence with mobility., by week 4 Strength: Increase R and L LE strength to 3/5 throughout for improved ability to participate in transfers, by week 3, goal partially met Transfers: Able to complete STS transfer with max A x 2 for return to level of function prior to surgery, by week 3, goal partially met Planned interventions include: education/instruction, home program, manual therapy, neuromuscular re-education, self care/home management, therapeutic activities and therapeutic exercises . static/dynamic sitting balance, LE strengthening, as LE strength improves script requests transfer training and gait training Attempt Dynadisc in sitting. Frequency and duration: 1 time(s) a week, for 4 weeks, for 4 visits . pending insurance approval. Potential to achieve rehab goals is good Continue to work on improved reciprocal coordination with BUE's abd BLE's as well as attempt to use dynadisc in sitting to increase need for core stability. Attempt Sit<>stand transfers in clinic with assistance of caregiver; . Progress with POC, as tolerated. Assessment Patient identified by name and date of . Pt reassessed this date by supervising PT with improvements noted in overall functional mobility and improved cooperation with skilled PT recently. Pt continues to demo increased weakness and decreased used of RLE compared to LLE, but able to demo improved MMT in BLE's compared to last re-assessment. Due to nature of pt's medical history and chronicity of many of his medical diagnosis, pt continues to respond well and benefits from continued skilled PT in the outpatient setting at this time. Pt and pt's caregiver note continued compliance with HEP and continued attempts at standing with akhil lift at facility, with patient still unable to standing fully erect for prolonged periods. Significant difficulty with maneuvering BLE's during standing to better assist with transfers. Pt primmarily uses LLE to pull/push himself in W/C so this PT used stretch strap to support LLE in air and increase use of RLE with W/C mobility this date. Patient was able to complete today's treatment with some difficulty. Adult Risk Screening There are no spiritual/cultural practices/values/needs that are important to know Initial Fall Risk Screening: PANCHO has not fallen in the last 6 months. PANCHO has a fear of falling. He needs assistance with . Needs assistance walking in his home. He needs assistance in an unfamiliar setting. The patient is using an assistive device. Fall Risk Screening: Patient is identified as a fall risk. Care Plan: High Risk: Low and Moderate risk interventions plus: ensure patient is escorted at all times, do not leave unattended, inform provider of high risk status, discharge by wheelchair or escort assistance, room location, sitter, pre and post sedation/procedure standards, supervised toileting. Insurance Insurance reviewed Visit number: 12 Approved number of visits: 13 total Authorization date range: 04/01/22 Authorization required after evaluation supervising PT BELLE [employer] Medicare, medically necessary, $233 deductible met and 20% co-insurance Onset Date: 2021 Medicare Certification Period: Beginnin2021 Endin2021 Subjective Patient reports:. Pt notes he did not want to come today and caregiver reports he is having a rough morning and not being cooperative today so far. Denies any back pain and notes he has been doing his HEP. Caregiver notes they are working on standing with him for transfers and reports he stood ok but had significant difficulty with moving his feet during the transfers. Home program performing as directed: Yes. Precautions: seizures. Fall Risk: high seizure disorder, Akhil transfer, w/c dependent, cervical fusion. Objective Ortho mobility: propels w/c using feet, hands with min to mod A from caregiver for direction L LE MMT: hip flex 2/5-->4-/5-->4/5 hip abd 2/5->3-/5-->3+/5 SEATED hip add 2/5-->4/5->5/5 knee flex 2/5-->3+/5 knee ext 2/5->3+/5 ankle DF 2/5-->2+/5->3+/5 R LE MMT: hip flex 1/5-->3+/5-->4-/5 hip abd 1/5-->3-/5 hip add 1/5-->4/5 knee-->5/5 flex 1/5-->2+/5->4/5 knee ext 1/5-->2+/5-->3+/5 ankle DF 1/5-->2+/5-->3+/5-->3+/ 5 RUE MMT: grossly 4-/5 LUE MMT: nelly (more content not included)... Normal myinfoQ Therapy Re-eval Noteon 03-28 Therapy Re-eval Note Therapy Diagnosis Assessed 1. S/P cervical spinal fusion (V45.4) (Z98.1) 2. Bilateral leg weakness (729.89) (R29.898) 3. Osteoarthritis of spine with radiculopathy, cervical region (721.0) (M47.22) 4. General weakness (780.79) (R53.1) Plan Goals: Goals set and discussed today. Able to complete seated LE strengthening program with assistance from caregiver for management of condition, by week 3, goal met Activity Limitation: Decrease disability as assessed by Oswestry to less than or equal to 36% disability for improved QOL. N/T this date, by week 3, goal met Coordination: Pt will demo improved reciprocal use of BLE's to pull/push himself in W/C on even surfaces for improved independence with mobility., by week 4 Strength: Increase R and L LE strength to 3/5 throughout for improved ability to participate in transfers, by week 3, goal partially met Transfers: Able to complete STS transfer with max A x 2 for return to level of function prior to surgery, by week 3, goal partially met Planned interventions include: education/instruction, home program, manual therapy, neuromuscular re-education, self care/home management, therapeutic activities and therapeutic exercises . static/dynamic sitting balance, LE strengthening, as LE strength improves script requests transfer training and gait training Attempt Dynadisc in sitting. Frequency and duration: 1 time(s) a week, for 4 weeks, for 4 visits . pending insurance approval. Potential to achieve rehab goals is good Continue to work on improved reciprocal coordination with BUE's abd BLE's as well as attempt to use dynadisc in sitting to increase need for core stability. Attempt Sit<>stand transfers in clinic with assistance of caregiver; . Progress with POC, as tolerated. Assessment Patient identified by name and date of . Pt reassessed this date by supervising PT with improvements noted in overall functional mobility and improved cooperation with skilled PT recently. Pt continues to demo increased weakness and decreased used of RLE compared to LLE, but able to demo improved MMT in BLE's compared to last re-assessment. Due to nature of pt's medical history and chronicity of many of his medical diagnosis, pt continues to respond well and benefits from continued skilled PT in the outpatient setting at this time. Pt and pt's caregiver note continued compliance with HEP and continued attempts at standing with akhil lift at facility, with patient still unable to standing fully erect for prolonged periods. Significant difficulty with maneuvering BLE's during standing to better assist with transfers. Pt primmarily uses LLE to pull/push himself in W/C so this PT used stretch strap to support LLE in air and increase use of RLE with W/C mobility this date. Patient was able to complete today's treatment with some difficulty. Adult Risk Screening There are no spiritual/cultural practices/values/needs that are important to know Initial Fall Risk Screening: PANCHO has not fallen in the last 6 months. PANCHO has a fear of falling. He needs assistance with . Needs assistance walking in his home. He needs assistance in an unfamiliar setting. The patient is using an assistive device. Fall Risk Screening: Patient is identified as a fall risk. Care Plan: High Risk: Low and Moderate risk interventions plus: ensure patient is escorted at all times, do not leave unattended, inform provider of high risk status, discharge by wheelchair or escort assistance, room location, sitter, pre and post sedation/procedure standards, supervised toileting. Insurance Insurance reviewed Visit number: 12 Approved number of visits: 13 total Authorization date range: 04/01/22 Authorization required after evaluation supervising PT DT [employer] Medicare, medically necessary, $233 deductible met and 20% co-insurance Onset Date: 2021 Medicare Certification Period: Beginnin2021 Endin2021 Subjective Patient reports:. Pt notes he did not want to come today and caregiver reports he is having a rough morning and not being cooperative today so far. Denies any back pain and notes he has been doing his HEP. Caregiver notes they are working on standing with him for transfers and reports he stood ok but had significant difficulty with moving his feet during the transfers. Home program performing as directed: Yes. Precautions: seizures. Fall Risk: high seizure disorder, Akhil transfer, w/c dependent, cervical fusion. Objective Ortho mobility: propels w/c using feet, hands with min to mod A from caregiver for direction L LE MMT: hip flex 2/5-->4-/5-->4/5 hip abd 2/5->3-/5-->3+/5 SEATED hip add 2/5-->4/5->5/5 knee flex 2/5-->3+/5 knee ext 2/5->3+/5 ankle DF 2/5-->2+/5->3+/5 R LE MMT: hip flex 1/5-->3+/5-->4-/5 hip abd 1/5-->3-/5 hip add 1/5-->4/5 knee-->5/5 flex 1/5-->2+/5->4/5 knee ext 1/5-->2+/5-->3+/5 ankle DF 1/5-->2+/5-->3+/5-->3+/ 5 RUE MMT: grossly 4-/5 (more content not included)... Normal [facility] myinfoQ PT Progress Noteon 2 PT Progress Note Therapy Diagnosis Assessed Bilateral leg weakness (729.89) (R29.898) General weakness (780.79) (R53.1) Osteoarthritis of spine with radiculopathy, cervical region (721.0) (M47.22) S/P cervical spinal fusion (V45.4) (Z98.1) Plan Goals: Goals set and discussed today. Able to complete seated LE strengthening program with assistance from caregiver for management of condition, by week 3, goal met Activity Limitation: Decrease disability as assessed by Oswestry to less than or equal to 36% disability for improved QOL. N/T this date, by week 3 Strength: Increase R and L LE strength to 3/5 throughout for improved ability to participate in transfers, by week 3, goal partially met Transfers: Able to complete STS transfer with max A x 2 for return to level of function prior to surgery, by week 3, goal partially met Planned interventions include: education/instruction, home program, manual therapy, neuromuscular re-education, self care/home management, therapeutic activities and therapeutic exercises . static/dynamic sitting balance, LE strengthening, as LE strength improves script requests transfer training and gait training. Frequency and duration: 2 time(s) a week, for 3 weeks, for 6 visits. Potential to achieve rehab goals is good Continue to progress UE/LE strength for improved functional mobility. D/C UBE and continue Nustep only next date. Progress with POC, as tolerated. Assessment Patient identified by name and date of . Patient demonstrated increased ease with activities and willingness to patriciate and follow directions. He demonstrated increased ease with hip flexion with prompted. He continues to demonstrate difficulty with knee ext with LAQ's. Adult Risk Screening There are no spiritual/cultural practices/values/needs that are important to know Initial Fall Risk Screening: PANCHO has not fallen in the last 6 months. PANCHO has a fear of falling. He needs assistance with . Needs assistance walking in his home. He needs assistance in an unfamiliar setting. The patient is using an assistive device. Fall Risk Screening: Patient is identified as a fall risk. Care Plan: High Risk: Low and Moderate risk interventions plus: ensure patient is escorted at all times, do not leave unattended, inform provider of high risk status, discharge by wheelchair or escort assistance, room location, sitter, pre and post sedation/procedure standards, supervised toileting. Pain Scale: On a scale of 0 to 10, the patient rates the pain at 0. Insurance Insurance reviewed Visit number: 11 Approved number of visits: 6 Authorization date range: 01/31/22-03/04/22 Authorization required after evaluation supervising PT BELLE [employer] Medicare, medically necessary, $233 deductible met and 20% co-insurance Onset Date: 2021 Medicare Certification Period: Beginnin2021 Endin2021 Subjective Patient reports:. Caregiver reported they attempted to stand patient the day prior and patient reported he could not complete. Precautions: seizures. Fall Risk: high seizure disorder, Akhil transfer, w/c dependent, cervical fusion. Treatment Time in clinic started at 10:05 Time in clinic ended at 10:45 Total time in clinic is 40 minutes. Total timed code time is 38 minutes. Therapeutic exercise (00718): timed minutes 24, units 2 . UBE* 3' fwd and 3' bwd (D/C UBE next visit) Nustep 6? LE only W/C scoots x 50 feet (X) Rows 2 x 15 [place] tube (x) Shld Ext 2 x 10 [place] Tube (X) Bicep curls 2 x 10 green band see TA below seated october 2 x 10 ea LE seated hip add 2 x 10 seated hip abd with Green TB x 10 ea side Seated LAQ 2x10ea LE HSC with ISO cues x10 orange band (X) HSC with orange TB with Corina for movements x10 (X) Glute Set x10 Not performed: seated heel raises 2 x 10 with assist (X) seated toe raises x 10 with assist (X). Therapeutic Activity (49447): timed minutes 14, units 1 . Transfer Training -scooting fwd/bwd attempted able to push bwd press up from walker with B UE and use of LE's. x10 propel w/c with feet x 30ft - x15ft on carpet with L LE, 15ft on even surface with R LE x10ft with alt LE's . Provided today:. [id number] Provided reviewed. 'Scores and Scales' Signatures Electronically signed by : Marisol Dorado, SR VICE PRESIDENT; Mar 25 2022 11:35AM EST (Author) Electronically signed by : Yolette Jack, PT; Mar 25 2022 3:16PM EST Normal [facility] PT Progress Noteon 2 PT Progress Note Therapy Diagnosis Assessed Bilateral leg weakness (729.89) (R29.898) General weakness (780.79) (R53.1) Osteoarthritis of spine with radiculopathy, cervical region (721.0) (M47.22) S/P cervical spinal fusion (V45.4) (Z98.1) Plan Goals: Goals set and discussed today. Able to complete seated LE strengthening program with assistance from caregiver for management of condition, by week 3, goal met Activity Limitation: Decrease disability as assessed by Oswestry to less than or equal to 36% disability for improved QOL. N/T this date, by week 3 Strength: Increase R and L LE strength to 3/5 throughout for improved ability to participate in transfers, by week 3, goal partially met Transfers: Able to complete STS transfer with max A x 2 for return to level of function prior to surgery, by week 3, goal partially met Planned interventions include: education/instruction, home program, manual therapy, neuromuscular re-education, self care/home management, therapeutic activities and therapeutic exercises . static/dynamic sitting balance, LE strengthening, as LE strength improves script requests transfer training and gait training. Frequency and duration: 2 time(s) a week, for 3 weeks, for 6 visits. Potential to achieve rehab goals is good Continue to progress UE/LE strength for improved functional mobility. D/C UBE and continue Nustep only next date. Progress with POC, as tolerated. Assessment Patient arrived this date willing to participate in treatment and was excited about adding Nustep this date. Completed UBE first d/t neeing assistance with moving Nustep machine at start of session, will D/C next visit. Had patient use both UE and LE's on Nustep but could not get the machine moving when just legs were attempted. Improved height of leg lift with seated LAQ/Marches this date on the L, continues to need VC/tactile cues for the L. Observed R UE lifting this date again when attempt was made on the R LE to lift the leg. Responded well to cues to sit more upright in chair and was able to complete Independently. Pt gave max effort throughout session and was fatigued and challenged by end of session. Adult Risk Screening There are no spiritual/cultural practices/values/needs that are important to know Initial Fall Risk Screening: PANCHO has not fallen in the last 6 months. PANCHO has a fear of falling. He needs assistance with . Needs assistance walking in his home. He needs assistance in an unfamiliar setting. The patient is using an assistive device. Fall Risk Screening: Patient is identified as a fall risk. Care Plan: High Risk: Low and Moderate risk interventions plus: ensure patient is escorted at all times, do not leave unattended, inform provider of high risk status, discharge by wheelchair or escort assistance, room location, sitter, pre and post sedation/procedure standards, supervised toileting. Insurance Insurance reviewed Visit number: 10 Approved number of visits: 6 Authorization date range: 01/31/22-03/04/22 Authorization required after evaluation supervising PT BELLE [employer] Medicare, medically necessary, $233 deductible met and 20% co-insurance Onset Date: 2021 Medicare Certification Period: Beginnin2021 Endin2021 Subjective Patient reports:. Patient arrived in a good mood and very willing and eager to participate. Caregiver stated that he was in a good mood today. Notes that nothing hurts today. Patient identified by name and date of . Home program performing as directed: Yes. Precautions: seizures. Fall Risk: high seizure disorder, Akhil transfer, w/c dependent, cervical fusion. Treatment Time in clinic started at 10:45 Time in clinic ended at 11:30 Total time in clinic is 45 minutes. Total timed code time is 44 minutes. Therapeutic exercise (77274): timed minutes 34, units 2 . UBE* 3' fwd and 3' bwd (D/C UBE next visit) Nustep 3' UE/LE (N) W/C scoots x 50 feet (X) Rows 2 x 15 [place] tube (P reps) Shld Ext 2 x 10 [place] Tube Bicep curls 2 x 10 orange band see TA below seated october 2 x 10 ea LE seated hip add 2 x 10 seated hip abd with Green TB x 10 ea side Seated LAQ 2x10ea LE HSC with ISO cues x10 orange band (X) HSC with orange TB with Corina for movements x10 (X) Glute Set x10 Not performed: seated heel raises 2 x 10 with assist (X) seated toe raises x 10 with assist (X). Therapeutic Activity (00175): timed minutes 10, units 1 . Transfer Training -scooting fwd/bwd attempted able to push bwd. press up from walker with B UE and use of LE's. x10 propel w/c with feet x 30ft - x10ft on carpet. (X) . Provided today:. [id number] Provided reviewed. 'Scores and Scales' Signatures Electronically signed by : Maisha Baez, SR VICE PRESIDENT; Mar 21 2022 12:18PM EST (Author) Electronically signed by : Yolette Jack, PT; Mar 25 2022 3:15PM EST Normal [facility] PT Progress Noteon 2 PT Progress Note Therapy Diagnosis Assessed Bilateral leg weakness (729.89) (R29.898) General weakness (780.79) (R53.1) Osteoarthritis of spine with radiculopathy, cervical region (721.0) (M47.22) S/P cervical spinal fusion (V45.4) (Z98.1) Plan Goals: Goals set and discussed today. Able to complete seated LE strengthening program with assistance from caregiver for management of condition, by week 3, goal met Activity Limitation: Decrease disability as assessed by Oswestry to less than or equal to 36% disability for improved QOL. N/T this date, by week 3 Strength: Increase R and L LE strength to 3/5 throughout for improved ability to participate in transfers, by week 3, goal partially met Transfers: Able to complete STS transfer with max A x 2 for return to level of function prior to surgery, by week 3, goal partially met Planned interventions include: education/instruction, home program, manual therapy, neuromuscular re-education, self care/home management, therapeutic activities and therapeutic exercises . static/dynamic sitting balance, LE strengthening, as LE strength improves script requests transfer training and gait training. Frequency and duration: 2 time(s) a week, for 3 weeks, for 6 visits. Potential to achieve rehab goals is good Plan to continue with strength progression progression as able. Continue with UBE use. Progress with POC, as tolerated. Assessment Patient identified by name and date of . Patient was in unpleasant mood on arrival. He required cues to preform exercises with full ability and for form. He demonstrated decreased ability to propel w/c with R LE this date verses last session. Adult Risk Screening There are no spiritual/cultural practices/values/needs that are important to know Initial Fall Risk Screening: PANCHO has not fallen in the last 6 months. PANCHO has a fear of falling. He needs assistance with . Needs assistance walking in his home. He needs assistance in an unfamiliar setting. The patient is using an assistive device. Fall Risk Screening: Patient is identified as a fall risk. Care Plan: High Risk: Low and Moderate risk interventions plus: ensure patient is escorted at all times, do not leave unattended, inform provider of high risk status, discharge by wheelchair or escort assistance, room location, sitter, pre and post sedation/procedure standards, supervised toileting. Insurance Insurance reviewed Visit number: 9 Approved number of visits: 6 Authorization date range: 01/31/22-03/04/22 Authorization required after evaluation supervising PT DT [employer] Medicare, medically necessary, $233 deductible met and 20% co-insurance Onset Date: 2021 Medicare Certification Period: Beginnin2021 Endin2021 Subjective Precautions: seizures. Fall Risk: high seizure disorder, Akhil transfer, w/c dependent, cervical fusion. Treatment Time in clinic started at 07:45 Time in clinic ended at 08:30 Total time in clinic is 45 minutes. Total timed code time is 43 minutes. Therapeutic exercise (35841): timed minutes 33, units 2 . NuStep or UBE* 3' fwd and 3' bwd W/C scoots x 50 feet (X) Rows 2 x 10 [place] tube Shld Ext 2 x 10 [place] Tube Bicep curls 2 x 10 orange band see TA below seated october 2 x 10 ea LE seated hip add 2 x 10 seated hip abd with Green TB x 10 ea side Seated LAQ 2x10ea LE HSC with ISO cues x10 orange band (X) HSC with orange TB with Corina for movements x10 (X) Glute Set x10 Not performed: seated heel raises 2 x 10 with assist (X) seated toe raises x 10 with assist (X). Therapeutic Activity (13599): timed minutes 10, units 1 . Transfer Training -scooting fwd/bwd attempted able to push bwd. press up from walker with B UE and use of LE's. x10 propel w/c with feet x 30ft - x10ft on carpet. (X) . Provided today:. [id number] Provided reviewed. 'Scores and Scales' Signatures Electronically signed by : Marisol Dorado, SR VICE PRESIDENT; Mar 18 2022 9:06AM EST (Author) Electronically signed by : Yolette Jack, PT; Mar 25 2022 3:15PM EST Normal [facility] PT Progress Noteon 2 PT Progress Note Therapy Diagnosis Assessed Bilateral leg weakness (729.89) (R29.898) General weakness (780.79) (R53.1) Osteoarthritis of spine with radiculopathy, cervical region (721.0) (M47.22) S/P cervical spinal fusion (V45.4) (Z98.1) Plan Goals: Goals set and discussed today. Able to complete seated LE strengthening program with assistance from caregiver for management of condition, by week 3, goal met Activity Limitation: Decrease disability as assessed by Oswestry to less than or equal to 36% disability for improved QOL. N/T this date, by week 3 Strength: Increase R and L LE strength to 3/5 throughout for improved ability to participate in transfers, by week 3, goal partially met Transfers: Able to complete STS transfer with max A x 2 for return to level of function prior to surgery, by week 3, goal partially met Planned interventions include: education/instruction, home program, manual therapy, neuromuscular re-education, self care/home management, therapeutic activities and therapeutic exercises . static/dynamic sitting balance, LE strengthening, as LE strength improves script requests transfer training and gait training. Frequency and duration: 2 time(s) a week, for 3 weeks, for 6 visits. Potential to achieve rehab goals is good Plan to continue with strength progression progression as able. Continue with UBE use. Progress with POC, as tolerated. Assessment Patient was unwilling to complete PT at start but then ended up. Able to complete chair w/c scoots from clinic to exit. Cues for proper technique with PRE's. Patient was able to complete UBE this date and really enjoyed using it. Adult Risk Screening There are no spiritual/cultural practices/values/needs that are important to know Initial Fall Risk Screening: PANCHO has not fallen in the last 6 months. PANCHO has a fear of falling. He needs assistance with . Needs assistance walking in his home. He needs assistance in an unfamiliar setting. The patient is using an assistive device. Fall Risk Screening: Patient is identified as a fall risk. Care Plan: High Risk: Low and Moderate risk interventions plus: ensure patient is escorted at all times, do not leave unattended, inform provider of high risk status, discharge by wheelchair or escort assistance, room location, sitter, pre and post sedation/procedure standards, supervised toileting. Insurance Insurance reviewed Visit number: 8 Approved number of visits: 6 Authorization date range: 01/31/22-03/04/22 Authorization required after evaluation supervising PT BELLE [employer] Medicare, medically necessary, $233 deductible met and 20% co-insurance Onset Date: 2021 Medicare Certification Period: Beginnin2021 Endin2021 Subjective Patient reports:. Caregiver reported that patient is not as willing to do therapy today upon arrival. Notes that he is on tail end of UTI and is starting to feel better. Patient identified by name and date of . Home program performing as directed: Partially. Precautions: seizures. Fall Risk: high seizure disorder, Akhil transfer, w/c dependent, cervical fusion. Treatment Time in clinic started at 1:15 Time in clinic ended at 2:00 Total time in clinic is 45 minutes. Total timed code time is 44 minutes. Therapeutic exercise (91198): timed minutes 44, units 3 . NuStep or UBE* 3' fwd and 3' bwd (N) W/C scoots x 50 feet (N) Rows 2 x 10 Green band Shld Ext 2 x 10 Green band Bicep curls 2 x 10 orange band see TA below seated october 2 x 10 ea LE seated hip add 2 x 10 seated hip abd with orange TB x 10 ea side Seated LAQ 2x10ea LE HSC with ISO cues x10 orange band (X) HSC with orange TB with Corina for movements x10 (X) Glute Set x10 (N) Not performed: seated heel raises 2 x 10 with assist (X) seated toe raises x 10 with assist (X). Therapeutic Activity (12954): timed minutes . Transfer Training (A) -scooting fwd/bwd attempted able to push bwd. press up from walker with B UE and use of LE's. x10 propel w/c with feet x 30ft - x10ft on carpet. (X) . Provided today:. [id number] Provided reviewed. 'Scores and Scales' Signatures Electronically signed by : Maisha Baez PTA; Mar 14 2022 3:25PM EST (Author) Electronically signed by : Yolette Jack PT; Mar 15 2022 12:00AM EST Normal [facility], Urineon 03-04-2022 Bacteria identified Cx Nom (U) Abnormal [facility] [place] Work Phone: UA MICROSCOPICon 03-04-2022 BACTERIA 1+ /HPF Abnormal [facility] Comment on above: Order Comment: VALENTINE DE LA VEGA APRN-SHARI [facility] Performed By: #### U AMIC #### [address] [address] Mucus Ql (Urine sed) 1+ /LPF Normal [facility] Comment on above: Order Comment: VALENTINE DE LA VEGA APRN-OPERATIONS AND MAINTENANCE SPECIALIST [facility] Performed By: #### U AMIC #### [address] [address] RBC (U) [#/Vol] /uL Normal 0-5 [facility] Comment on above: Order Comment: VALENTINE DE LA VEGA ASSEMBLY STOCK SUPERVISOR-OPERATIONS AND MAINTENANCE SPECIALIST [facility] Performed By: #### U AMIC #### [address] [address] WBC 29 /HPF Abnormal 0-5 [facility] Comment on above: Order Comment: VALENTINE DE LA VEGA ASSEMBLY STOCK SUPERVISOR-OPERATIONS AND MAINTENANCE SPECIALIST [facility] Performed By: #### U AMIC #### [address] [address] WBC CLUMPS OCC Normal [facility] Comment on above: Order Comment: VALENTINE DE LA VEGA ASSEMBLY STOCK SUPERVISOR-OPERATIONS AND MAINTENANCE SPECIALIST [facility] Performed By: #### U AMIC #### [address] [address] URINALYSIS WITH CULTURE IF I NDICATEDon 03-04-2022 Appearance (U) HAZY Normal CLEAR [facility] Comment on above: Order Comment: VALENTINE DE LA VEGA ASSEMBLY STOCK SUPERVISOR-OPERATIONS AND MAINTENANCE SPECIALIST [facility] Performed By: #### U ARFX #### [address] [address] Bilirubin Ql (U) Negative Normal NEGATIVE [facility] Comment on above: Order Comment: VALENTINE DE LA VEGA ASSEMBLY STOCK SUPERVISOR-OPERATIONS AND MAINTENANCE SPECIALIST [facility] Performed By: #### U ARFX #### [address] [address] Color (U) Yellow Normal STRAW,YELLOW [facility] Comment on above: Order Comment: VALENTINE DE LA VEGA ASSEMBLY STOCK SUPERVISOR-OPERATIONS AND MAINTENANCE SPECIALIST [facility] Performed By: #### U ARFX #### [address] [address] Glucose Ql (U) Negative Normal NEGATIVE [facility] Comment on above: Order Comment: VALENTINE DE LA VEGA ASSEMBLY STOCK SUPERVISOR-OPERATIONS AND MAINTENANCE SPECIALIST [facility] Performed By: #### U ARFX #### [address] [address] Hemoglobin Ql (U) Negative Normal NEGATIVE [facility] Comment on above: Order Comment: VALENTINE DE LA VEGA ASSEMBLY STOCK SUPERVISOR-OPERATIONS AND MAINTENANCE SPECIALIST [facility] Performed By: #### U ARFX #### [address] [place] [address] Ketones Ql (U) Negative Normal NEGATIVE [facility] Comment on above: Order Comment: VALENTINE DE LA VEGA ASSEMBLY STOCK SUPERVISOROrianaOPERATIONS AND MAINTENANCE SPECIALIST [facility] Performed By: #### U ARFX #### [address] [address] Leukocyte esterase Test strip Ql (U) TRACE Abnormal NEGATIVE [facility] Comment on above: Order Comment: VALENTINE DE LA VEGA ASSEMBLY STOCK SUPERVISOROPERATIONS AND MAINTENANCE SPECIALIST [facility] Performed By: #### U ARFX #### [place] [id number] Nitrite Ql (U) Negative Normal NEGATIVE [facility] Comment on above: Order Comment: DAVID SCHUMACHER [facility] Performed By: #### U ARFX #### [place] [id number] pH (U) 5.0 [pH] Normal 5.0 - 8.0 [facility] Comment on above: Order Comment: VALENTINE DE LA VEGA APRNOPERATIONS AND MAINTENANCE SPECIALIST [facility] Performed By: #### U ARFX #### [place] [id number] Protein Ql (U) Negative Normal NEGATIVE [facility] Comment on above: Order Comment: VALENTINE DE L AVEGA ASSEMBLY STOCK SUPERVISORCELESTE [facility] Performed By: #### U ARFX #### [place] [id number] Specific gravity (U) [Rel density] 1.028 Normal 1.005 - 1.035 [facility] Comment on above: Order Comment: VALENTINE DE LA VEGA ASSEMBLY STOCK SUPERVISOROPERATIONS AND MAINTENANCE SPECIALIST [facility] Performed By: #### U ARFX #### [address] [address] Urobilinogen (U) [Mass/Vol] mg/dL Normal 0.0 - 1.9 [facility] Comment on above: Order Comment: VALENTINE DE LA VEGA ASSEMBLY STOCK SUPERVISOROPERATIONS AND MAINTENANCE SPECIALIST [facility] Performed By: #### U ARFX #### [address] [address] Lab Specimen Source Normal [facility] Comment on above: Order Comment: DAVID SCHUMACHER [facility] Performed By: #### U ARFX #### [facility] [address] [place] [address] Color (U) Yellow See Below [facility] [place] Work Phone: Comment on above: SOURCE: Reference Ra nge: STRAW,YELLOW Glucose Ql (U) Negative NEGATIVE [facility] [place] Work Phone: Ketones Ql (U) Negative NEGATIVE [facility] [place] Work Phone: Leukocyte esterase Test strip Ql (U) TRACE Abnormal NEGATIVE [facility] [place] Work Phone: pH (U) 5.0 [pH] 5.0 - 8.0 [facility] [place] Work Phone: Protein (U) [Mass/Vol] Negative NEGATIVE [facility] [place] Work Phone: RBC (U) [#/Vol] Negative NEGATIVE [facility] [place] Work Phone: Specific gravity (U) [Rel density] 1.028 1 See Below [facility] [place] Work Phone: Comment on above: Reference Range: 1.0 05 - 1.035 URINALYSIS WITH CULTURE IF INDICATED Negative NEGATIVE [facility] [place] Work Phone: URINALYSIS WITH CULTURE IF INDICATED <2.0 0.0 - 1.9 [facility] [place] Work Phone: URINALYSIS WITH CULTURE IF INDICATED HAZY CLEAR [facility] [place] Work Phone: URINE CULTURE,BACTERIALon URINE CULTURE,BACTERIAL [facility] PATIENT: PANCHO MCPHERSON LOCATION: [facility] BILL#: [id number] : 58 AGE: SEX: M ORDERED BY: PENDING, PROVIDER SOURCE: URINE COLLECTED: 03/04/22 14:45 ANTIBIOTICS AT JUVENCIO.: RECEIVED : 03/04/22 22:53 SITE: Clean Catch/Voided R E S U L T S URINE CULTURE,BACTERIAL FINAL 03/07/22 14:38 ISOLATE1 : Aerococcus urinae 20,000-80,000 CFU/ML Organism Aero urinae Antibiotic RAMONA INTRP Penicillin <=0.03 S Vancomycin .50 S Ciprofloxacin =2.0 I Levofloxacin 4.0 I Tetracycline 0.12 S Ampicillin S S=SUSCEPTIBLE I=INTERMEDIATE R=RESISTANT SDD=SUSCEPTIBLE DOSE DEPENDENT NS=NONSUSCEPTIBLE X=REPORTED IN ERROR Normal [facility] Comment on above: Performed By: #### U RINC #### [facility] [address] [place] [address] Urinalysis, Microscopicon Urinalysis, Microscopic 1+ Abnormal [facility] [place] Work Phone: Urinalysis, Microscopic <1 0-5 [facility] [place] Work Phone: Urinalysis, Microscopic OCC [facility] Work Phone: Urinalysis, Microscopic 29 {/HPF} Abnormal 0-5 [facility] Work Phone: PT Progress Noteon 2 PT Progress Note Therapy Diagnosis Assessed Bilateral leg weakness (729.89) (R29.898) General weakness (780.79) (R53.1) Osteoarthritis of spine with radiculopathy, cervical region (721.0) (M47.22) S/P cervical spinal fusion (V45.4) (Z98.1) Plan Goals: Goals set and discussed today. Able to complete seated LE strengthening program with assistance from caregiver for management of condition, by week 3, goal met Activity Limitation: Decrease disability as assessed by Oswestry to less than or equal to 36% disability for improved QOL. N/T this date, by week 3 Strength: Increase R and L LE strength to 3/5 throughout for improved ability to participate in transfers, by week 3, goal partially met Transfers: Able to complete STS transfer with max A x 2 for return to level of function prior to surgery, by week 3, goal partially met Planned interventions include: education/instruction, home program, manual therapy, neuromuscular re-education, self care/home management, therapeutic activities and therapeutic exercises . static/dynamic sitting balance, LE strengthening, as LE strength improves script requests transfer training and gait training. Frequency and duration: 2 time(s) a week, for 3 weeks, for 6 visits. Potential to achieve rehab goals is good Plan to trial NuStep or UBE for BUE/BLE coordination/reciprocal motor control if able to utilize while in W/C once moved; Plan to progress with transfer training and attempt to practice pre-transfer techniques to progress towards PLOF to surgery. Progress with POC, as tolerated. Assessment Patient identified by name and date of . Patient verbalized frustration at start of treatment that ceased quickly. He demonstrated increased ease with marching and propelling w/c at end of session. He was able to progress with UE strengthening with tactile cues for proper form. Adult Risk Screening There are no spiritual/cultural practices/values/needs that are important to know Initial Fall Risk Screening: PANCHO has not fallen in the last 6 months. PANCHO has a fear of falling. He needs assistance with . Needs assistance walking in his home. He needs assistance in an unfamiliar setting. The patient is using an assistive device. Fall Risk Screening: Patient is identified as a fall risk. Care Plan: High Risk: Low and Moderate risk interventions plus: ensure patient is escorted at all times, do not leave unattended, inform provider of high risk status, discharge by wheelchair or escort assistance, room location, sitter, pre and post sedation/procedure standards, supervised toileting. Insurance Insurance reviewed Visit number: 7 Approved number of visits: 6 Authorization date range: 01/31/22-03/04/22 Authorization required after evaluation supervising PT [employer]LE [employer] Medicare, medically necessary, $233 deductible met and 20% co-insurance Onset Date: 2021 Medicare Certification Period: Beginnin2021 Endin2021 Subjective Patient reports:. Caregiver reported he is willing to participate 50% of the time with HEP in the last week due to him not wanting to. She reported she feels his assist with t/f's (lifting bottom ect is becoming more constant.). Home program performing as directed: Partially. Precautions: seizures. Fall Risk: high seizure disorder, Akhil transfer, w/c dependent, cervical fusion. Treatment Time in clinic started at 10:00 Time in clinic ended at 10:44 Total time in clinic is 44 minutes. Total timed code time is 42 minutes. Therapeutic exercise (94854): timed minutes 23, units 2 . NuStep or UBE (A-seated in W/C) Rows 2 x 10 orange band (N) Shld Ext 2 x 10 orange band (N) Bicep curls 2 x 10 orange band (N) see TA below seated heel raises 2 x 10 with assist (X) seated toe raises x 10 with assist (X) seated october 2 x 10 ea LE seated hip add 2 x 10 seated hip abd with orange TB x 10 ea side (X) Seated LAQ 2x10ea LE HSC with ISO cues x10 orange band (X) HSC with orange TB with Corina for movements x10 (X) Glute Set x10 (N) . Therapeutic Activity (91263): timed minutes 19 . Transfer Training (A) -scooting fwd/bwd attempted able to push bwd. press up from walker with B UE and use of LE's. x10 propel w/c with feet x 30ft - x10ft on carpet. (X) . Provided today:. [id number] Provided reviewed. 'Scores and Scales' Signatures Electronically signed by : Marisol Dorado, SR VICE PRESIDENT; Mar 02 2022 11:18AM EST (Author) Electronically signed by : Yolette Jack, PT; Mar 11 2022 3:39PM EST Normal [facility] Touchworks PT Progress Noteon PT Progress Note Therapy Diagnosis Assessed Bilateral leg weakness (729.89) (R29.898) General weakness (780.79) (R53.1) Osteoarthritis of spine with radiculopathy, cervical region (721.0) (M47.22) S/P cervical spinal fusion (V45.4) (Z98.1) Plan Goals: Goals set and discussed today. Able to complete seated LE strengthening program with assistance from caregiver for management of condition, by week 3, goal met Activity Limitation: Decrease disability as assessed by Oswestry to less than or equal to 36% disability for improved QOL. N/T this date, by week 3 Strength: Increase R and L LE strength to 3/5 throughout for improved ability to participate in transfers, by week 3, goal partially met Transfers: Able to complete STS transfer with max A x 2 for return to level of function prior to surgery, by week 3, goal partially met Planned interventions include: education/instruction, home program, manual therapy, neuromuscular re-education, self care/home management, therapeutic activities and therapeutic exercises . static/dynamic sitting balance, LE strengthening, as LE strength improves script requests transfer training and gait training. Frequency and duration: 2 time(s) a week, for 3 weeks, for 6 visits. Potential to achieve rehab goals is good Plan to trial NuStep or UBE for BUE/BLE coordination/reciprocal motor control if able to utilize while in W/C; Plan to progress with transfer training and attempt to practice pre-transfer techniques to progress towards PLOF to surgery. Progress with POC, as tolerated. Assessment Patient identified by name and date of . Pt and nurse arrived in the parking lot and this PT could see them sitting outside the front entrance for 15 min before coming in. Nurse reported pt wanted to call his uncle and they were trying to clarify some things so they were about 15-20 min late. Pt and pt's nurse note he is doing better and having less pain overall since starting therapy and after reassessment this date, pt does demo improved MMT of BLE's. He still has difficulty with motor control and is dependent on akhil lift for transfers. Difficulty with some communication this date as this is first time this PT has worked with this patient. Pt did request continued therapy and this PT feels he would benefit from continued skilled PT with progression of possible transfer training and progress strengthening for BLE's, core musculature, as well as BUE's this date. Adult Risk Screening There are no spiritual/cultural practices/values/needs that are important to know Initial Fall Risk Screening: PANCHO has not fallen in the last 6 months. PANCHO has a fear of falling. He needs assistance with . Needs assistance walking in his home. He needs assistance in an unfamiliar setting. The patient is using an assistive device. Fall Risk Screening: Patient is identified as a fall risk. Care Plan: High Risk: Low and Moderate risk interventions plus: ensure patient is escorted at all times, do not leave unattended, inform provider of high risk status, discharge by wheelchair or escort assistance, room location, sitter, pre and post sedation/procedure standards, supervised toileting. Pain Scale: On a scale of 0 to 10, the patient rates the pain at 0. Insurance Insurance reviewed Visit number: 6 Approved number of visits: 6 Authorization date range: 01/31/22-03/04/22 Authorization required after evaluation supervising PT [employer] Medicare, medically necessary, $233 deductible met and 20% co-insurance Onset Date: 2021 Medicare Certification Period: Beginnin2021 Endin2021 Subjective Patient reports:. Pt notes his back doesn't hurt anymore and he has been doing his HEP. Does feel like the therapy has been helping. Pt's nurse notes he has been doing much better and they can tell he is getting stronger. STill using akhil mostly for transfers though. Would like to try and get more therapy approved. Home program performing as directed: Yes. Precautions: seizures. Fall Risk: high seizure disorder, Akhil transfer, w/c dependent, cervical fusion. Objective Ortho mobility: propels w/c using feet, hands with min to mod A from caregiver for direction L LE MMT: hip flex 2/5-->4-/5, hip abd 2/5->3-/5, hip add 2/5-->4/5, knee flex 2/5-->, knee ext 2/5->, ankle DF 2/5-->2+/5 R LE MMT: hip flex 1/5-->3+/5, hip abd 1/5-->3-/5, hip add 1/5-->4/5 knee flex 1/5-->2+/5, knee ext 1/5-->2+/5, ankle DF 1/5-->2+/5 RUE MMT: grossly 4-/5 LUE MMT: grossly 3+/5 *difficult to complete MMT due to pt difficulty following one step commands transfers: akhil HAY 46%-->N/T. Treatment Time in clinic started at 1150 Time in clinic ended at 1215 Total time in clinic is 25 minutes. Total timed code time is 23 minutes. Therapeutic exercise (47266): timed minutes 23, units 2 . Pt re-assessed for updated POC, updated/reviewed HEP, and discussed continued symptom management x 23' Not 02/28: NuStep or UBE (A-sea (more content not included)... Normal myinfoQ Therapy Re-eval Noteon 02-28 Therapy Re-eval Note Therapy Diagnosis Assessed 1. Bilateral leg weakness (729.89) (R29.898) 2. General weakness (780.79) (R53.1) 3. Osteoarthritis of spine with radiculopathy, cervical region (721.0) (M47.22) 4. S/P cervical spinal fusion (V45.4) (Z98.1) Plan Goals: Goals set and discussed today. Able to complete seated LE strengthening program with assistance from caregiver for management of condition, by week 3, goal met Activity Limitation: Decrease disability as assessed by Oswestry to less than or equal to 36% disability for improved QOL. N/T this date, by week 3 Strength: Increase R and L LE strength to 3/5 throughout for improved ability to participate in transfers, by week 3, goal partially met Transfers: Able to complete STS transfer with max A x 2 for return to level of function prior to surgery, by week 3, goal partially met Planned interventions include: education/instruction, home program, manual therapy, neuromuscular re-education, self care/home management, therapeutic activities and therapeutic exercises . static/dynamic sitting balance, LE strengthening, as LE strength improves script requests transfer training and gait training. Frequency and duration: 2 time(s) a week, for 3 weeks, for 6 visits. Potential to achieve rehab goals is good Plan to trial NuStep or UBE for BUE/BLE coordination/reciprocal motor control if able to utilize while in W/C; Plan to progress with transfer training and attempt to practice pre-transfer techniques to progress towards PLOF to surgery. Progress with POC, as tolerated. Assessment Patient identified by name and date of . Pt and nurse arrived in the parking lot and this PT could see them sitting outside the front entrance for 15 min before coming in. Nurse reported pt wanted to call his uncle and they were trying to clarify some things so they were about 15-20 min late. Pt and pt's nurse note he is doing better and having less pain overall since starting therapy and after reassessment this date, pt does demo improved MMT of BLE's. He still has difficulty with motor control and is dependent on akhil lift for transfers. Difficulty with some communication this date as this is first time this PT has worked with this patient. Pt did request continued therapy and this PT feels he would benefit from continued skilled PT with progression of possible transfer training and progress strengthening for BLE's, core musculature, as well as BUE's this date. Adult Risk Screening There are no spiritual/cultural practices/values/needs that are important to know Initial Fall Risk Screening: PANCHO has not fallen in the last 6 months. PANCHO has a fear of falling. He needs assistance with . Needs assistance walking in his home. He needs assistance in an unfamiliar setting. The patient is using an assistive device. Fall Risk Screening: Patient is identified as a fall risk. Care Plan: High Risk: Low and Moderate risk interventions plus: ensure patient is escorted at all times, do not leave unattended, inform provider of high risk status, discharge by wheelchair or escort assistance, room location, sitter, pre and post sedation/procedure standards, supervised toileting. Pain Scale: On a scale of 0 to 10, the patient rates the pain at 0. Insurance Insurance reviewed Visit number: 6 Approved number of visits: 6 Authorization date range: 01/31/22-03/04/22 Authorization required after evaluation supervising PT [employer]LE [employer] Medicare, medically necessary, $233 deductible met and 20% co-insurance Onset Date: 2021 Medicare Certification Period: Beginnin2021 Endin2021 Subjective Patient reports:. Pt notes his back doesn't hurt anymore and he has been doing his HEP. Does feel like the therapy has been helping. Pt's nurse notes he has been doing much better and they can tell he is getting stronger. STill using akhil mostly for transfers though. Would like to try and get more therapy approved. Home program performing as directed: Yes. Precautions: seizures. Fall Risk: high seizure disorder, Akhil transfer, w/c dependent, cervical fusion. Objective Ortho mobility: propels w/c using feet, hands with min to mod A from caregiver for direction L LE MMT: hip flex 2/5-->4-/5, hip abd 2/5->3-/5, hip add 2/5-->4/5, knee flex 2/5-->, knee ext 2/5->, ankle DF 2/5-->2+/5 R LE MMT: hip flex 1/5-->3+/5, hip abd 1/5-->3-/5, hip add 1/5-->4/5 knee flex 1/5-->2+/5, knee ext 1/5-->2+/5, ankle DF 1/5-->2+/5 RUE MMT: grossly 4-/5 LUE MMT: grossly 3+/5 *difficult to complete MMT due to pt difficulty following one step commands transfers: akhil HAY 46%-->N/T. Treatment Time in clinic started at 1150 Time in clinic ended at 1215 Total time in clinic is 25 minutes. Total timed code time is 23 minutes. Therapeutic exercise (54143): timed minutes 23, units 2 . Pt re-assessed for updated POC, updated/reviewed HEP, and discussed continued symptom management x 23' Not 02/28: NuStep o (more content not included)... Normal Touchworks PT Progress Noteon 2 PT Progress Note Therapy Diagnosis Assessed Bilateral leg weakness (729.89) (R29.898) S/P cervical spinal fusion (V45.4) (Z98.1) Osteoarthritis of spine with radiculopathy, cervical region (721.0) (M47.22) General weakness (780.79) (R53.1) Plan Goals: Goals set and discussed today. Able to complete seated LE strengthening program with assistance from caregiver for management of condition, by week 3 Activity Limitation: Decrease disability as assessed by Oswestry to less than or equal to 36% disability for improved QOL., by week 3 Strength: Increase R and L LE strength to 3/5 throughout for improved ability to participate in transfers, by week 3 Transfers: Able to complete STS transfer with max A x 2 for return to level of function prior to surgery, by week 3 Planned interventions include: education/instruction, home program, manual therapy, neuromuscular re-education, self care/home management, therapeutic activities and therapeutic exercises . static/dynamic sitting balance, LE strengthening, as LE strength improves script requests transfer training and gait training. Frequency and duration: 2 time(s) a week, for 3 weeks, for 6 visits. Potential to achieve rehab goals is good Progress with LE strengthening for increased ease and safety with transfers. Progress with POC, as tolerated. Assessment Patient identified by name and date of . Patient demonstrated increased participation this date. He demonstrated increased ease with cueing with all exercises and increased band strengthening. Adult Risk Screening There are no spiritual/cultural practices/values/needs that are important to know Initial Fall Risk Screening: PANCHO has not fallen in the last 6 months. PANCHO has a fear of falling. He needs assistance with . Needs assistance walking in his home. He needs assistance in an unfamiliar setting. The patient is using an assistive device. Fall Risk Screening: Patient is identified as a fall risk. Care Plan: High Risk: Low and Moderate risk interventions plus: ensure patient is escorted at all times, do not leave unattended, inform provider of high risk status, discharge by wheelchair or escort assistance, room location, sitter, pre and post sedation/procedure standards, supervised toileting. Insurance Insurance reviewed Visit number: 5 Approved number of visits: 6 Authorization date range: 01/31/22-03/04/22 Authorization required after evaluation supervising PT [employer]LE [employer] Medicare, medically necessary, $233 deductible met and 20% co-insurance Onset Date: 2021 Medicare Certification Period: Beginnin2021 Endin2021 Subjective Patient reports:. 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 and has appointment with the surgeon 03/08/22 to review. Home program performing as directed: Yes. Precautions: seizures. Fall Risk: high seizure disorder, Akhil transfer, w/c dependent, cervical fusion. Treatment Time in clinic started at 10:05 Time in clinic ended at 10:45 Total time in clinic is 40 minutes. Total timed code time is 38 minutes. Therapeutic exercise (63096): timed minutes 38, units 3 . seated heel raises 2 x 10 with assist seated toe raises x 10 with assist seated october 2 x 10 ea LE seated hip add 2 x 10 seated hip abd with orange TB x 10 ea side Seated LAQ 2x10ea LE HSC with ISO cues x10 orange band HSC with orange TB with Corina for movements x10 press up from walker with B UE and use of LE's. x5 propel w/c with feet x 30ft x10ft on carpet . 'Scores and Scales' Signatures Electronically signed by : Marisol Dorado SR VICE PRESIDENT; Feb 25 2022 12:59PM EST (Author) Electronically signed by : Yolette Jack, PT; Mar 11 2022 3:39PM EST Normal myinfoQ PT Progress Noteon 2 PT Progress Note Therapy Diagnosis Assessed Bilateral leg weakness (729.89) (R29.898) S/P cervical spinal fusion (V45.4) (Z98.1) Osteoarthritis of spine with radiculopathy, cervical region (721.0) (M47.22) General weakness (780.79) (R53.1) Plan Goals: Goals set and discussed today. Able to complete seated LE strengthening program with assistance from caregiver for management of condition, by week 3 Activity Limitation: Decrease disability as assessed by Oswestry to less than or equal to 36% disability for improved QOL., by week 3 Strength: Increase R and L LE strength to 3/5 throughout for improved ability to participate in transfers, by week 3 Transfers: Able to complete STS transfer with max A x 2 for return to level of function prior to surgery, by week 3 Planned interventions include: education/instruction, home program, manual therapy, neuromuscular re-education, self care/home management, therapeutic activities and therapeutic exercises . static/dynamic sitting balance, LE strengthening, as LE strength improves script requests transfer training and gait training. Frequency and duration: 2 time(s) a week, for 3 weeks, for 6 visits. Potential to achieve rehab goals is good Progress with LE strengthening for increased ease and safety with transfers. Progress with POC, as tolerated. Assessment Patient identified by name and date of . Pancho required max cues for movements at start of treatment. He was able to progress with band strength and demonstrated improved I with use of LE's to propel his walker. Adult Risk Screening There are no spiritual/cultural practices/values/needs that are important to know Initial Fall Risk Screening: PANCHO has not fallen in the last 6 months. PANCHO has a fear of falling. He needs assistance with . Needs assistance walking in his home. He needs assistance in an unfamiliar setting. The patient is using an assistive device. Fall Risk Screening: Patient is identified as a fall risk. Care Plan: High Risk: Low and Moderate risk interventions plus: ensure patient is escorted at all times, do not leave unattended, inform provider of high risk status, discharge by wheelchair or escort assistance, room location, sitter, pre and post sedation/procedure standards, supervised toileting. Insurance Insurance reviewed Visit number: 4 Approved number of visits: 6 Authorization date range: 01/31/22-03/04/22 Authorization required after evaluation supervising PT BELLE [employer] Medicare, medically necessary, $233 deductible met and 20% co-insurance Onset Date: 2021 Medicare Certification Period: Beginnin2021 Endin2021 Subjective Patient reports:. Caregiver reported Pancho is going to see a shan surgeon at the end of the month due to report of finding spinal stenoses, she reported they have found that his iron and B12 are low. Home program performing as directed: Partially . Patient and caregiver reported he is doing them a little. Precautions: seizures. Fall Risk: high seizure disorder, Akhil transfer, w/c dependent, cervical fusion. Treatment Time in clinic started at 10:04 Time in clinic ended at 10:47 Total time in clinic is 43 minutes. Total timed code time is 41 minutes. Therapeutic exercise (01709): timed minutes 38, units 3 . seated heel raises 2 x 10 with assist seated toe raises x 10 with assist seated march 2 x 10 ea LE seated hip add 2 x 10 seated hip abd with orange TB x 10 ea side Seated LAQ 2x10ea LE HSC with ISO cues x10 orange band HSC with peach TB with Corina for movements x10 press up from walker with B UE and use of LE's. x5 propel w/c with feet x 30ft and x10ft with R LE only for LE strengthening . 'Scores and Scales' Signatures Electronically signed by : Marisol Dorado SR VICE PRESIDENT; Feb 23 2022 10:57AM EST (Author) Electronically signed by : Yolette Jack PT; Mar 11 2022 3:39PM EST Normal Touchworks CBC AND DIFFERENTIALon 02-18 Basophils (Bld) [#/Vol] 0.10 10*3/uL Normal 0.00 - 0.10 [facility] Comment on above: Performed By: #### U RINC #### [facility] [address] [place] [address] Basophils/100 WBC (Bld) 1.3 % Normal 0.0 - 2.0 [facility] Comment on above: Performed By: #### U RINC #### [facility] [address] [place] [address] Eosinophils (Bld) [#/Vol] 0.20 10*3/uL Normal 0.00 - 0.70 [facility] Comment on above: Performed By: #### U RINC #### [facility] [address] [place] [address] Eosinophils/100 WBC (Bld) 2.5 % Normal 0.0 - 6.0 [facility] Comment on above: Performed By: #### U RINC #### [facility] [address] [place] [address] Erythrocyte distribution width (RBC) [Ratio] 15.7 % High 11.5 - 14.5 [facility] Comment on above: Performed By: #### U RINC #### [facility] [address] [place] [address] Hematocrit (Bld) [Volume fraction] 33.1 % Low 41.0 - 52.0 [facility] Comment on above: Performed By: #### U RINC #### [facility] [address] [place] [address] Hemoglobin (Bld) [Mass/Vol] 10.2 g/dL Low 13.5 - 17.5 [facility] Comment on above: Performed By: #### U RINC #### [facility] [address] [place] [address] Lymphocytes (Bld) [#/Vol] 2.00 10*3/uL Normal 1.20 - 4.80 [facility] Comment on above: Performed By: #### U RINC #### [facility] [address] [place] [address] Lymphocytes/100 WBC (Bld) 26.6 % Normal 13.0 - 44.0 [facility] Comment on above: Performed By: #### U RINC #### [facility] [address] [place] [address] MCHC (RBC) [Mass/Vol] 30.9 g/dL Low 32.0 - 36.0 [facility] Comment on above: Performed By: #### U RINC #### [facility] [address] [place] [address] MCV (RBC) [Entitic vol] 78 fL Low 80 - 100 [facility] Comment on above: Performed By: #### U RINC #### [facility] [address] [place] [address] Monocytes (Bld) [#/Vol] 0.80 10*3/uL Normal 0.10 - 1.00 [facility] Comment on above: Performed By: #### U RINC #### [facility] [address] [place] [address] Monocytes/100 WBC (Bld) 10.8 % Normal 2.0 - 10.0 [facility] Comment on above: Performed By: #### U RINC #### [facility] [address] [place] [address] Neutrophils (Bld) [#/Vol] 4.50 10*3/uL Normal 1.20 - 7.70 [facility] Comment on above: Result Comment: Perc ent differential counts (%) should be interpreted in the context of the absolute cell counts (cells/L). Performed By: #### U RINC #### [facility] [address] [place] [address] Neutrophils/100 WBC (Bld) 58.8 % Normal 40.0 - 80.0 [facility] Comment on above: Performed By: #### U RINC #### [facility] [address] [place] [address] NUCLEATED RBC 0.1 /100 WBC Normal [facility] Comment on above: Performed By: #### U RINC #### [facility] [address] [place] [address] Platelets (Bld) [#/Vol] 332 10*3/uL Normal 150 - 450 [facility] Comment on above: Performed By: #### U RINC #### [facility] [address] [place] [address] RBC 4.26 x10E12/L Low 4.50 - 5.90 [facility] Comment on above: Performed By: #### U RINC #### [facility] [address] [place] [address] WBC (Bld) [#/Vol] 7.6 10*3/uL Normal 4.4 - 11.3 [facility] Comment on above: Performed By: #### U RINC #### [facility] [address] [place] [address] Complete Blood Count + Diffe rentialon 02-18-2022 Basophils/100 WBC (Bld) 1.3 % 0.0 - 2.0 [facility] Work Phone: Erythrocyte distribution width (RBC) [Ratio] 15.7 % above high threshold See Below [facility] Work Phone: Comment on above: Reference Range: 11. 5 - 14.5 Hematocrit (Bld) [Volume fraction] 33.1 % below low threshold See Below [facility] Work Phone: Comment on above: Reference Range: 41. 0 - 52.0 Hemoglobin (Bld) [Mass/Vol] 10.2 g/dL below low threshold See Below [facility] [facility] Work Phone: Comment on above: Reference Range: 13. 5 - 17.5 Lymphocytes/100 WBC (Bld) 26.6 % See Below [facility] Work Phone: Comment on above: Reference Range: 13. 0 - 44.0 MCHC (RBC) [Mass/Vol] 30.9 g/dL below low threshold See Below [facility] Work Phone: Comment on above: Reference Range: 32. 0 - 36.0 MCV (RBC) [Entitic vol] 78 fL below low threshold 80 - 100 [facility] [place] Work Phone: Monocytes/100 WBC (Bld) 10.8 % 2.0 - 10.0 [facility] [place] Work Phone: Neutrophils/100 WBC (Bld) 58.8 % See Below [facility] [place] Work Phone: Comment on above: Reference Range: 40. 0 - 80.0 Platelets (Bld) [#/Vol] 332 10*3/uL 150 - 450 [facility] [place] Work Phone: RBC (Bld) [#/Vol] 4.26 {x10E12/L} below low threshold See Below [facility] [place] Work Phone: Comment on above: Reference Range: 4.5 0 - 5.90 WBC (Bld) [#/Vol] 7.6 10*3/uL 4.4 - 11.3 [facility] [place] Work Phone: Complete Blood Count + Differential 0.10 {x10E9/L} See Below [facility] [place] Work Phone: Comment on above: Reference Range: 0.0 0 - 0.10 Complete Blood Count + Differential 0.20 {x10E9/L} See Below [facility] [place] Work Phone: Comment on above: Reference Range: 0.0 0 - 0.70 Complete Blood Count + Differential 0.80 {x10E9/L} See Below [facility] [place] Work Phone: Comment on above: Reference Range: 0.1 0 - 1.00 Complete Blood Count + Differential 2.00 {x10E9/L} See Below [facility] Work Phone: Comment on above: Reference Range: 1.2 0 - 4.80 Complete Blood Count + Differential 4.50 {x10E9/L} See Below [facility] [place] Work Phone: Comment on above: Reference Range: 1.2 0 - 7.70 Percent differential counts (%) should be interpreted in the context of the absolute cell counts (cells/L). Complete Blood Count + Differential 2.5 % 0.0 - 6.0 [facility] [place] Work Phone: Complete Blood Count + Differential 0.1 {/100_WBC} [facility] [place] Work Phone: FERRITINon 02-18-2022 FERRITIN 18 ug/L Low 20 - 300 [facility] Comment on above: Performed By: #### U AMIC #### [address] [address] Ferritin, Serumon 02-18-2022 Ferritin [Mass/Vol] 18 ug/L below low threshold 20 - 300 [facility] [place] Work Phone: IRON + TIBCon 02-18-2022 % SATURATION 3 % Low 25 - 45 [facility] Comment on above: Performed By: #### U AMIC #### [address] [address] Iron [Mass/Vol] 14 ug/dL Low 35 - 150 [facility] Comment on above: Performed By: #### U AMIC #### [address] [address] TIBC 456 ug/dL High 240 - 445 [facility] Comment on above: Performed By: #### U AMIC #### [address] [address] Laboratory - Chemistry and C hemistry - challengeon 02-18-2022 Iron [Mass/Vol] 14 ug/dL below low threshold 35 - 150 [facility] [place] Work Phone: Iron binding capacity [Mass/Vol] 456 ug/dL above high threshold 240 - 445 [facility] [place] Work Phone: No Panel Informationon 02-18 3 % below low threshold 25 - 45 [facility] [place] Work Phone: PT Progress Noteon 2 PT Progress Note Therapy Diagnosis Assessed Bilateral leg weakness (729.89) (R29.898) S/P cervical spinal fusion (V45.4) (Z98.1) Osteoarthritis of spine with radiculopathy, cervical region (721.0) (M47.22) General weakness (780.79) (R53.1) Plan Goals: Goals set and discussed today. Able to complete seated LE strengthening program with assistance from caregiver for management of condition, by week 3 Activity Limitation: Decrease disability as assessed by Oswestry to less than or equal to 36% disability for improved QOL., by week 3 Strength: Increase R and L LE strength to 3/5 throughout for improved ability to participate in transfers, by week 3 Transfers: Able to complete STS transfer with max A x 2 for return to level of function prior to surgery, by week 3 Planned interventions include: education/instruction, home program, manual therapy, neuromuscular re-education, self care/home management, therapeutic activities and therapeutic exercises . static/dynamic sitting balance, LE strengthening, as LE strength improves script requests transfer training and gait training. Frequency and duration: 2 time(s) a week, for 3 weeks, for 6 visits. Potential to achieve rehab goals is good Progress with LE strengthening for increased ease and safety with transfers. Progress with POC, as tolerated. Assessment Patient identified by name and date of . Patient demonstrated increased ease and willingness to preform exercises this date. He was able to increase with speed and decrease with assistances with propelling with w/c. Adult Risk Screening There are no spiritual/cultural practices/values/needs that are important to know Initial Fall Risk Screening: PANCHO has not fallen in the last 6 months. PANCHO has a fear of falling. He needs assistance with . Needs assistance walking in his home. He needs assistance in an unfamiliar setting. The patient is using an assistive device. Fall Risk Screening: Patient is identified as a fall risk. Care Plan: High Risk: Low and Moderate risk interventions plus: ensure patient is escorted at all times, do not leave unattended, inform provider of high risk status, discharge by wheelchair or escort assistance, room location, sitter, pre and post sedation/procedure standards, supervised toileting. Insurance Insurance reviewed Visit number: 3 Approved number of visits: 6 Authorization date range: 01/31/22-03/04/22 Authorization required after evaluation supervising PT BELLE Carmen Medicare, medically necessary, $233 deductible met and 20% co-insurance Onset Date: 2021 Medicare Certification Period: Beginnin2021 Endin2021 Subjective Patient reports:. Caregiver reported no changes since last treatment. Home program performing as directed: Yes. Precautions: seizures. Fall Risk: high seizure disorder, Akhil transfer, w/c dependent, cervical fusion. Treatment Time in clinic started at 10:01 Time in clinic ended at 10:40 Total time in clinic is 39 minutes. Total timed code time is 38 minutes. Therapeutic exercise (85672): timed minutes 38, units 3 . seated heel raises 2 x 10 with assist seated toe raises x 10 with assist seated october 2 x 10 ea LE seated hip add 2 x 10 seated hip abd with peach TB x 10 ea side Seated LAQ 2x10ea LE HSC with ISO cues x10 peach band HSC with peach TB with Corina for movements x10 propel w/c with feet x 20ft with mod A at start from PT for direction and knee flex/ext on R for LE strengthening . 'Scores and Scales' Signatures Electronically signed by : Marisol Dorado, SR VICE PRESIDENT; Feb 18 2022 12:05PM EST (Author) Electronically signed by : Yolette Jack, PT; Mar 11 2022 3:39PM EST Normal [facility] VITAMIN B12on 02-18-2022 Cobalamin (Vitamin B12) [Mass/Vol] 188 pg/mL Low 211 - 911 [facility] Comment on above: Performed By: #### U [facility] #### [address] [place] [address] Vitamin B12, Serumon 022 Cobalamin (Vitamin B12) [Mass/Vol] 188 pg/mL below low threshold 211 - 911 [facility] Work Phone: PT Progress Noteon 2 PT Progress Note Therapy Diagnosis Assessed Bilateral leg weakness (729.89) (R29.898) S/P cervical spinal fusion (V45.4) (Z98.1) Osteoarthritis of spine with radiculopathy, cervical region (721.0) (M47.22) General weakness (780.79) (R53.1) Plan Goals: Goals set and discussed today. Able to complete seated LE strengthening program with assistance from caregiver for management of condition, by week 3 Activity Limitation: Decrease disability as assessed by Oswestry to less than or equal to 36% disability for improved QOL., by week 3 Strength: Increase R and L LE strength to 3/5 throughout for improved ability to participate in transfers, by week 3 Transfers: Able to complete STS transfer with max A x 2 for return to level of function prior to surgery, by week 3 Planned interventions include: education/instruction, home program, manual therapy, neuromuscular re-education, self care/home management, therapeutic activities and therapeutic exercises . static/dynamic sitting balance, LE strengthening, as LE strength improves script requests transfer training and gait training. Frequency and duration: 2 time(s) a week, for 3 weeks, for 6 visits. Potential to achieve rehab goals is good Progress with LE strengthening for increased ease and safety with transfers. Progress with POC, as tolerated. Assessment Patient identified by name and date of . Patient required tactile, visual and verbal cues for all movements with Corina at times to start movement. He demonstrated increased ease with exercises with exercises with targets and continuos cues. He demonstrated fatigue at end of treatment. Adult Risk Screening There are no spiritual/cultural practices/values/needs that are important to know Initial Fall Risk Screening: PANCHO has not fallen in the last 6 months. PANCHO has a fear of falling. He needs assistance with . Needs assistance walking in his home. He needs assistance in an unfamiliar setting. The patient is using an assistive device. Fall Risk Screening: Patient is identified as a fall risk. Care Plan: High Risk: Low and Moderate risk interventions plus: ensure patient is escorted at all times, do not leave unattended, inform provider of high risk status, discharge by wheelchair or escort assistance, room location, sitter, pre and post sedation/procedure standards, supervised toileting. Insurance Insurance reviewed Visit number: 2 Approved number of visits: 6 Authorization date range: 01/31/22-03/04/22 Authorization required after evaluation supervising PT BELLE [employer] Medicare, medically necessary, $233 deductible met and 20% co-insurance Onset Date: 2021 Medicare Certification Period: Beginnin2021 Endin2021 Subjective Patient reports:. Patient verbalized fatigue at end of session. Home program performing as directed: Yes . caregivers non medical reported patient preforms HEP x2 a day. Precautions: seizures. Fall Risk: high seizure disorder, Akhil transfer, w/c dependent, cervical fusion. Treatment Time in clinic started at 07:05 Time in clinic ended at 07:46 Total time in clinic is 41 minutes. Total timed code time is 39 minutes. Therapeutic exercise (37566):. seated heel raises x 10 with assist seated toe raises x 10 with assist seated march x 10 ea LE seated hip add 2 x 10 seated PF x 15 seated hip abd with peach TB x 10 ea side Seated LAQ x10ea LE HSC with ISO cues x10 peach band HSC with peach TB with Corina for movements x10 propel w/c with feet x 20ft with mod A at start from PT for direction and knee flex/ext on R for LE strengthening . 'Scores and Scales' Signatures Electronically signed by : Marisol Dorado, SR VICE PRESIDENT; Feb 16 2022 8:43AM EST (Author) Electronically signed by : Yolette Jack, PT; Mar 11 2022 3:39PM EST Normal [facility] Complete Blood Count + Diffe galentialon 02-07-2022 Basophils/100 WBC (Bld) 0.9 % 0.0 - 2.0 [facility] Work Phone: Erythrocyte distribution width (RBC) [Ratio] 15.3 % above high threshold See Below [facility] Work Phone: Comment on above: Reference Range: 11. 5 - 14.5 Hematocrit (Bld) [Volume fraction] 29.8 % below low threshold See Below [facility] Work Phone: Comment on above: Reference Range: 41. 0 - 52.0 Hemoglobin (Bld) [Mass/Vol] 9.7 g/dL below low threshold See Below [facility] Work Phone: Comment on above: Reference Range: 13. 5 - 17.5 Lymphocytes/100 WBC (Bld) 32.2 % See Below [facility] Work Phone: Comment on above: Reference Range: 13. 0 - 44.0 MCHC (RBC) [Mass/Vol] 32.4 g/dL See Below [facility] Work Phone: Comment on above: Reference Range: 32. 0 - 36.0 MCV (RBC) [Entitic vol] 77 fL below low threshold 80 - 100 [facility] [place] Work Phone: Monocytes/100 WBC (Bld) 10.7 % 2.0 - 10.0 [facility] [place] Work Phone: Neutrophils/100 WBC (Bld) 53.5 % See Below [facility] [place] Work Phone: Comment on above: Reference Range: 40. 0 - 80.0 Platelets (Bld) [#/Vol] 316 10*3/uL 150 - 450 [facility] [place] Work Phone: RBC (Bld) [#/Vol] 3.86 {x10E12/L} below low threshold See Below [facility] [place] Work Phone: Comment on above: Reference Range: 4.5 0 - 5.90 WBC (Bld) [#/Vol] 7.9 10*3/uL 4.4 - 11.3 [facility] [place] Work Phone: Complete Blood Count + Differential 0.10 {x10E9/L} See Below [facility] [place] Work Phone: Comment on above: Reference Range: 0.0 0 - 0.10 Complete Blood Count + Differential 0.20 {x10E9/L} See Below [facility] [place] Work Phone: Comment on above: Reference Range: 0.0 0 - 0.70 Complete Blood Count + Differential 0.80 {x10E9/L} See Below [facility] [place] Work Phone: Comment on above: Reference Range: 0.1 0 - 1.00 Complete Blood Count + Differential 2.50 {x10E9/L} See Below [facility] [place] Work Phone: Comment on above: Reference Range: 1.2 0 - 4.80 Complete Blood Count + Differential 4.20 {x10E9/L} See Below [facility] [place] Work Phone: Comment on above: Reference Range: 1.2 0 - 7.70 Percent differential counts (%) should be interpreted in the context of the absolute cell counts (cells/L). Complete Blood Count + Differential 2.7 % 0.0 - 6.0 [facility] [place] Work Phone: Complete Blood Count + Differential 0.1 {/100_WBC} [facility] [place] Work Phone: Hernan Mccallum 02-07-2022 levETIRAcetam [Mass/Vol] 44 ug/mL above high threshold 10 - 40 [facility] [place] Work Phone: Comment on above: Brivaracetam may fal sely increase the amount of levetiracetam measured by this method. Serum levels should be confirmed by a valid chromatographic method for patients with these drugs co-present in circulation. Laboratory - Chemistry and C hemistry - challengeon 02-07-2022 Anion gap [Moles/Vol] 12 mmol/L 10 - 20 [facility] [place] Work Phone: Calcium [Mass/Vol] 8.5 mg/dL below low threshold 8.6 - 10.3 [facility] [place] Work Phone: Chloride [Moles/Vol] 102 mmol/L 98 - 107 [facility] [place] Work Phone: CO2 [Moles/Vol] 27 mmol/L 21 - 32 [facility] [place] Work Phone: Creatinine [Mass/Vol] 0.57 mg/dL See Below [facility] [place] Work Phone: Comment on above: Reference Range: 0.5 0 - 1.30 Glucose [Mass/Vol] 108 mg/dL above high threshold 74 - 99 [facility] [place] Work Phone: Potassium [Moles/Vol] 4.4 mmol/L 3.5 - 5.3 [facility] [place] Work Phone: Comment on above: MILD HEMOLYSIS DETEC COLLEEN. The result may be falsely elevated due tohemolysis or other interferents. Clinical correlation is recommended.Repeat testing may be considered. Sodium [Moles/Vol] 137 mmol/L 136 - 145 [facility] [place] Work Phone: Urea nitrogen [Mass/Vol] 21 mg/dL 6 - 23 [facility] Work Phone: Lactate, Levelon 02-07-2022 Lactate [Moles/Vol] 1.2 mmol/L 0.4 - 2.0 [facility] [place] Work Phone: Comment on above: Venipuncture immedia tely after or during the administration of Metamizole may lead to falsely low results. Testing should be performed immediately prior to Metamizole dosing. No Panel Informationon 02-07 >[address] >90 [facility] [place] Work Phone: Comment on above: CALCULATIONS OF ORHAN MATED GFR ARE PERFORMED USING THE 2020 CKD-EPI STUDY REFIT EQUATION WITHOUT THE RACE VARIABLE FOR THE IDMS-TRACEABLE CREATININE METHODS.https://jasn.asnjournals.org/content//ASN .8765164553 Phenobarbital Level, Serumon 02-07-2022 PHENobarbital [Mass/Vol] 31.5 ug/mL See Below [facility] [place] Work Phone: Comment on above: Reference Range: 10. 0 - 40.0 Phenytoin Level, Serumon 06- 27-2022 Phenytoin [Mass/Vol] 7.3 ug/mL below low threshold See Below [facility] Work Phone: Comment on above: Reference Range: 10. 0 - 20.0 Cult, Urineon 01-28-2022 Bacteria identified Cx Nom (U) Abnormal [facility] [place] Work Phone: [phone] US RENAL COMPLETEon 12-07-19 US RENAL COMPLETE RADRPT EXAM: US RENAL COMPLETE HISTORY: . Incomplete bladder emptying . COMPARISON: None. FINDINGS: Scanning of the bladder demonstrates the filled bladder to be unremarkable. No masses or bladder wall thickening is noted. Bilateral ureteral jets were noted. Prevoid volume was 563 cc and post void residual was 70 cc. Scanning of the right kidney demonstrates the right kidney to measure 8.7 x 5.3 x 5.4 cm. No solid renal cortical masses or hydronephrosis is noted. Renal cortical echotexture is unremarkable. Color-flow is noted. Left kidney measures 11.5 x 5.6 x 5.5 cm. Color-flow is noted. No solid renal cortical masses or hydronephrosis is noted. Color-flow is noted. Renal cortical echotexture is unremarkable. Report electronically signed by: Dr. Qing Neal IMPRESSION: Impression: 1. Normal ultrasound of the kidneys. 2. The filled bladder is unremarkable with bilateral ureteral jets. 3. Post void residual was 70 cc for a post void residual of approximately 12%. Interpreted by: Qing Neal MD Signed by: Qing Neal MD 12/06/21 Final result Normal [facility] Cult, Urineon 11-25-2021 Bacteria identified Cx Nom (U) Abnormal [facility] Work Phone: URINALYSIS WITH CULTURE IF I NDICATEDon 11-25-2021 Color (U) Yellow See Below [facility] Work Phone: Comment on above: SOURCE: Reference Ra nge: STRAW,YELLOW Glucose Ql (U) Negative NEGATIVE [facility] Work Phone: Ketones Ql (U) Negative NEGATIVE [facility] Work Phone: Leukocyte esterase Test strip Ql (U) TRACE Abnormal NEGATIVE [facility] Work Phone: pH (U) 5.0 [pH] 5.0 - 8.0 [facility] Work Phone: Protein (U) [Mass/Vol] Negative NEGATIVE [facility] Work Phone: RBC (U) [#/Vol] Negative NEGATIVE [facility] Work Phone: Specific gravity (U) [Rel density] 1.024 1 See Below [facility] Work Phone: Comment on above: Reference Range: 1.0 05 - 1.035 URINALYSIS WITH CULTURE IF INDICATED Positive Abnormal NEGATIVE [facility] Work Phone: URINALYSIS WITH CULTURE IF INDICATED <2.0 0.0 - 1.9 [facility] Work Phone: URINALYSIS WITH CULTURE IF INDICATED Negative NEGATIVE [facility] Work Phone: URINALYSIS WITH CULTURE IF INDICATED HAZY CLEAR [facility] Work Phone: Urinalysis, Microscopicon Urinalysis, Microscopic 1+ [facility] Work Phone: Urinalysis, Microscopic 4+ Abnormal [facility] Work Phone: Urinalysis, Microscopic 1 {/HPF} 0-5 [facility] Work Phone: Urinalysis, Microscopic OCC [facility] Work Phone: Urinalysis, Microscopic 43 {/HPF} Abnormal 0-5 [facility] [place] Work Phone: FOLATE, SERUMOrdered By: Shannan Richard on 11-17-2021 Folate [Mass/Vol] ng/mL >5.38 ng/mL [facility] Interpretation and review of laboratory results Normal [facility] LYME ABon 11-17-2021 B. burgdorferi IgM IA Qn (S) Negative Negative [facility] Interpretation and review of laboratory results Normal [facility] T. pallidum Ab Ql (S)Ordered By: Salome Urias on 11-17-2021 Interpretation and review of laboratory results Normal [facility] T. pallidum IgG Ql (S) Non-Reactive Non Reactive [facility] TSHon 11-17-2021 Interpretation and review of laboratory results Normal [facility] TSH Qn 2.852 m[IU]/L [facility] VITAMIN B12on 11-17-2021 Cobalamin (Vitamin B12) [Mass/Vol] 362 pg/mL 211 - 911 pg/mL [facility] Interpretation and review of laboratory results Normal [facility] Complete Blood Count + Diffe rentialon 10-12-2021 Basophils/100 WBC (Bld) 1.0 % 0.0 - 2.0 [facility] [place] Work Phone: Erythrocyte distribution width (RBC) [Ratio] 15.2 % above high threshold See Below [facility] [place] Work Phone: Comment on above: Reference Range: 11. 5 - 14.5 Hematocrit (Bld) [Volume fraction] 39.0 % below low threshold See Below [facility] [place] Work Phone: Comment on above: Reference Range: 41. 0 - 52.0 Hemoglobin (Bld) [Mass/Vol] 12.4 g/dL below low threshold See Below [facility] [place] Work Phone: [phone] Comment on above: Reference Range: 13. 5 - 17.5 Lymphocytes/100 WBC (Bld) 19.5 % See Below [facility] [place] Work Phone: [phone] Comment on above: Reference Range: 13. 0 - 44.0 MCHC (RBC) [Mass/Vol] 31.9 g/dL below low threshold See Below [facility] [place] Work Phone: [phone] Comment on above: Reference Range: 32. 0 - 36.0 MCV (RBC) [Entitic vol] 84 fL 80 - 100 [facility] [place] Work Phone: [phone] Monocytes/100 WBC (Bld) 11.7 % 2.0 - 10.0 [facility] [place] Work Phone: [phone] Neutrophils/100 WBC (Bld) 66.4 % See Below [facility] [place] Work Phone: [phone] Comment on above: Reference Range: 40. 0 - 80.0 Platelets (Bld) [#/Vol] 279 10*3/uL 150 - 450 [facility] [place] Work Phone: [phone] RBC (Bld) [#/Vol] 4.68 {x10E12/L} See Below [facility] [place] Work Phone: [phone] Comment on above: Reference Range: 4.5 0 - 5.90 WBC (Bld) [#/Vol] 9.4 10*3/uL 4.4 - 11.3 [facility] [place] Work Phone: [phone] Complete Blood Count + Differential 0.10 {x10E9/L} See Below [facility] [place] Work Phone: [phone] Comment on above: Reference Range: 0.0 0 - 0.10 Reference Range: 0.0 0 - 0.70 Complete Blood Count + Differential 1.10 {x10E9/L} above high threshold See Below [facility] Work Phone: Comment on above: Reference Range: 0.1 0 - 1.00 Complete Blood Count + Differential 1.80 {x10E9/L} See Below [facility] Work Phone: Comment on above: Reference Range: 1.2 0 - 4.80 Complete Blood Count + Differential 6.20 {x10E9/L} See Below [facility] Work Phone: Comment on above: Reference Range: 1.2 0 - 7.70 Percent differential counts (%) should be interpreted in the context of the absolute cell counts (cells/L). Complete Blood Count + Differential 1.4 % 0.0 - 6.0 [facility] Work Phone: Complete Blood Count + Differential 0.1 {/100_WBC} [facility] Work Phone: Hemoglobin A1Con 10-12-2021 Glucose [Mass/Vol] 120 mg/dL [place] Urgent Care Work Phone: HbA1c (Bld) [Mass fraction] 5.8 % Abnormal [facility] Work Phone: Comment on above: Diagnosis of Diabete s-Adults Non-Diabetic: < or = 5.6% Increased risk for developing diabetes: 5.7-6.4% Diagnostic of diabetes: > or = 6.5%. Monitoring of Diabetes Age (y) Therapeutic Goal (%) Adults: >18 <7.0 Pediatrics: 13-18 <7.5 7-12 <8.0 0- 6 7.5-8.5 [place] [employer]. Diabetes Care 33(S1), Aug 2009. Laboratory - Chemistry and C hemistry - challengeon 10-12-2021 Anion gap [Moles/Vol] 11 mmol/L 10 - 20 [facility] ritan [place] Work Phone: Calcium [Mass/Vol] 8.8 mg/dL 8.6 - 10.3 [facility] [place] Work Phone: Chloride [Moles/Vol] 99 mmol/L 98 - 107 [facility] [place] Work Phone: CO2 [Moles/Vol] 33 mmol/L above high threshold 21 - 32 [facility] [place] Work Phone: Creatinine [Mass/Vol] 0.51 mg/dL See Below [facility] rosendo [place] Work Phone: Comment on above: Reference Range: 0.5 0 - 1.30 Glucose [Mass/Vol] 110 mg/dL above high threshold 74 - 99 [facility] [place] Work Phone: Potassium [Moles/Vol] 3.7 mmol/L 3.5 - 5.3 [facility] [place] Work Phone: Sodium [Moles/Vol] 139 mmol/L 136 - 145 [facility] [place] Work Phone: Urea nitrogen [Mass/Vol] 13 mg/dL 6 - 23 [facility] [place] Work Phone: Lipid Panelon 10-12-2021 Cholesterol [Mass/Vol] 133 mg/dL 0 - 199 [facility] [place] [place] Work Phone: Comment on above: . AGE DESIRABLE BORD TRAMAINE HIGH HIGH 0-19 Y 0 - 169 170 - 199 >/= 200 20-24 Y 0 - 189 190 - 224 >/= 225 >24 Y 0 - 199 200 - 239 >/= 240 All ranges are based on fasting samples. Specific therapeutic targets will vary based on patient-specific cardiac risk.. Pediatric guidelines reference:Pediatrics 2011, 128(S5). Adult guidelines reference: NCEP ATPIII Guidelines, FRANCOIS 2001, 258:2486-97. Venipuncture immediately after or during the administration of Metamizole may lead to falsely low results. Testing should be performed immediately prior to Metamizole dosing. Cholesterol in HDL [Mass/Vol] 50.0 mg/dL [facility] Work Phone: Comment on above: . AGE VERY LOW LOW N ORMAL HIGH 0-19 Y < 35 < 40 40-45 ---- 20- 24 Y ---- < 40 >45 ---- >24 Y ---- < 40 40-60 >60. Cholesterol in LDL [Mass/Vol] 64 mg/dL 0 - 99 [facility] Work Phone: Comment on above: . NEAR BORD AGE JOVANNA RABLE OPTIMAL HIGH HIGH VERY HIGH 0-19 Y 0 - 109 --- 110-129 >/= 130 ---- 20-24 Y 0 - 119 --- 120-159 >/= 160 ---- >24 Y 0 - 99 100-129 130-159 160-189 >/=190. Cholesterol.total/Ch olesterol in HDL [Mass ratio] 2.7 {ratio} [facility] Work Phone: Comment on above: REF VALUESDESIRABLE < 3.4HIGH RISK > 5.0 Triglyceride [Mass/Vol] 96 mg/dL 0 - 149 [facility] Work Phone: Comment on above: . AGE DESIRABLE BORD TRAMAINE HIGH HIGH VERY HIGH 0 D-90 D 19 - 174 ---- ---- ----91 D- 9 Y 0 - 74 75 - 99 >/= 100 ---- 10-19 Y 0 - 89 90 - 129 >/= 130 ---- 20-24 Y 0 - 114 115 - 149 >/= 150 ---- >24 Y 0 - 149 150 - 199 200- 499 >/= 500. Venipuncture immediately after or during the administration of Metamizole may lead to falsely low results. Testing should be performed immediately prior to Metamizole dosing. Lipid Panel 19 mg/dL 0 - 40 [facility] [place] Work Phone: No Panel Informationon 10-12 >90 >90 [facility] Work Phone: Comment on above: CALCULATIONS OF ROHAN MATED GFR ARE PERFORMED USING THE 2020 CKD-EPI STUDY REFIT EQUATION WITHOUT THE RACE VARIABLE FOR THE IDMS-TRACEABLE CREATININE METHODS.https://jasn.asnjournals.org/content/early/ASN .2898534446 TSH - Thyroid Stimulating Ho rmrachael, Serumon 10-12-2021 TSH Qn 5.39 m[IU]/L above high threshold See Below [facility] Work Phone: Comment on above: Reference Range: 0.4 4 - 3.98 TSH testing is performed using different testing methodology at [facility] than at other legacy [facility]. Direct result comparisons should only be made within the same method. CBC AND ELECTRONIC DIFFon Basophils (Bld) [#/Vol] 10*3/uL Normal 0.00-0.[address] [facility] Comment on above: Performed By: #### X M #### [facility] (DEFAULT) [address] [address] Basophils/100 WBC (Bld) 0.4 % Normal [facility] Comment on above: Performed By: #### X M #### [facility] (DEFAULT) [address] [address] DIFF STATUS Electronic Differential Normal [facility] Comment on above: Performed By: #### X M #### [facility] (DEFAULT) [address] [address] Eosinophils (Bld) [#/Vol] 0.21 10*3/uL Normal 0.00-0.[address] [facility] Comment on above: Performed By: #### X M #### [facility] (DEFAULT) [address] [place] [address] Eosinophils/100 WBC (Bld) 2.5 % Normal [facility] Comment on above: Performed By: #### X M #### [facility] (DEFAULT) [address] [address] Hematocrit (Bld) [Volume fraction] 38.7 % Low 39.6-48.[address] [facility] Comment on above: Performed By: #### X M #### [facility] (DEFAULT) [address] [address] Hemoglobin (Bld) [Mass/Vol] 12.6 g/dL Low 13.4-16.[address] [facility] Comment on above: Performed By: #### X M #### [facility] (DEFAULT) [address] [address] Immature Grans % 0.4 % Normal [facility] Comment on above: Performed By: #### X M #### [facility] (DEFAULT) [address] [address] Immature Grans Absolute <0.04 Normal <=0.[address] [facility] Comment on above: Performed By: #### X M #### [facility] (DEFAULT) [address] [address] Lymphocytes (Bld) [#/Vol] 2.57 10*3/uL Normal 0.83-3.[address] [facility] Comment on above: Performed By: #### X M #### [facility] (DEFAULT) [address] [address] Lymphocytes/100 WBC (Bld) 30.6 % Normal [facility] Comment on above: Performed By: #### X M #### [facility] (DEFAULT) [address] [address] MCV (RBC) [Entitic vol] 90.6 fL Normal 79.0-94.[address] [facility] Comment on above: Performed By: #### X M #### [facility] (DEFAULT) [address] [address] Mean Cell Hgb 29.5 pg Normal 26.1-33.[address] [facility] Comment on above: Performed By: #### X M #### [facility] (DEFAULT) [address] [address] Mean Cell Hgb Conc 32.6 g/dL Normal 31.9-36.5 [facility] Comment on above: Performed By: #### X M #### [facility] (DEFAULT) [address] [place] [address] Monocytes (Bld) [#/Vol] 0.97 10*3/uL High 0.24-0.[address] [facility] Comment on above: Performed By: #### X M #### [facility] (DEFAULT) [address] [address] Monocytes/100 WBC (Bld) 11.5 % Normal [facility] Comment on above: Performed By: #### X M #### [facility] (DEFAULT) [address] [address] Nucleated RBC 0.0 /100 WBC Normal <=0.2 [facility] Comment on above: Performed By: #### X M #### [facility] (DEFAULT) [address] [address] Platelet mean volume (Bld) [Entitic vol] 10.9 fL Normal 8.7-12.[address] [facility] Comment on above: Performed By: #### X M #### [facility] (DEFAULT) [address] [address] Platelets (Bld) [#/Vol] 244 10*3/uL Normal 146-[address] [facility] Comment on above: Performed By: #### X M #### [facility] (DEFAULT) [address] [address] RBC (Bld) [#/Vol] 4.27 10*6/uL Low 4.38-5.[address] [facility] Comment on above: Performed By: #### X M #### [facility] (DEFAULT) [address] [place] [address] RBC Distribution 13.4 % Normal 10.9-14.3 [facility] Comment on above: Performed By: #### X M #### [facility] (DEFAULT) [address] [place] [address] Segs + Bands Auto 54.6 % Normal [facility] Comment on above: Performed By: #### X M #### [facility] (DEFAULT) [address] [place] [address] Segs + Bands,Absolute Auto 4.59 K/uL Normal 1.57-6.[address] [facility] Comment on above: Performed By: #### X M #### [facility] (DEFAULT) [address] [place] [address] WBC (Bld) [#/Vol] 8.40 10*3/uL Normal 3.73-10.[address] [facility] Comment on above: Performed By: #### X M #### [facility] (DEFAULT) [address] [place] [address] CHEM 7 (LYTES,BUN,CREA,GLUC) on 06-03-2021 Anion gap [Moles/Vol] 13 mmol/L Normal 7-[address] [facility] Comment on above: Performed By: #### X M #### [facility] (DEFAULT) [address] [place] [address] Chloride [Moles/Vol] 102 mmol/L Normal 98-[address] [facility] Comment on above: Performed By: #### X M #### [facility] (DEFAULT) [address] [place] [address] CO2 [Moles/Vol] 28 mmol/L Normal 22-30 [facility] Comment on above: Performed By: #### X M #### [facility] (DEFAULT) [address] [place] [address] Creatinine [Mass/Vol] 0.53 mg/dL Low 0.70-1.[address] [facility] Comment on above: Performed By: #### X M #### [facility] (DEFAULT) [address] [place] [address] EST GFR, >=60 Normal >=[address] [facility] Comment on above: Performed By: #### X M #### [facility] (DEFAULT) [address] [place] [address] EST GFR,Non >=60 Normal >=[address] [facility] Comment on above: Performed By: #### X M #### [facility] (DEFAULT) [address] [place] [address] Glucose [Mass/Vol] 108 mg/dL High 70-99 [facility] Comment on above: Performed By: #### X M #### [facility] (DEFAULT) [address] [place] [address] Osmolality [Osmolality] 291 mosm/kg Normal 278-[address] [facility] Comment on above: Performed By: #### X M #### [facility] (DEFAULT) [address] [place] [address] Potassium [Moles/Vol] 4.0 mmol/L Normal 3.5-5.[address] [facility] Comment on above: Performed By: #### X M #### [facility] (DEFAULT) [address] [place] [address] Sodium [Moles/Vol] 139 mmol/L Normal 133-143 [facility] Comment on above: Performed By: #### X M #### [facility] (DEFAULT) [address] [place] [address] Urea nitrogen [Mass/Vol] 11 mg/dL Normal 7-[address] [facility] Comment on above: Performed By: #### X M #### [facility] (DEFAULT) [address] [place] [address] Urea nitrogen/Creatinine [Mass ratio] 21 mg/mg Normal [facility] Comment on above: Performed By: #### X M #### [facility] (DEFAULT) [address] [place] [address] NOVEL CORONAVIRUS PCRon 05-15 SARS-CoV-2 (COVID-19) RNA ROSIO+probe Ql (Unsp spec) Not detected Normal NOT DETECTED [facility] Comment on above: Order Comment: Viral transport media (credit report checker with pink fluid) or BAL specimen - Collection must be done while wearing N-95 mask, eye protection, gown and gloves. Please label ALL specimens as 2019-nCoV rule out and deliver by hand. This test was performed using real time PCR and has been approved for the qualitative detection of SARS-CoV-2 nucleic acid. The test has been authorized by the FDA under an emergency use authorization for use by authorized laboratories. Result Comment: [facility] Negative results do not preclude SARS-CoV-2 infection and should not be used as the sole basis for treatment or other patient management decisions. Optimum specimen types and timing for peak viral levels during infections caused by SARS-CoV-2 has not been determined. The possibility of a false negative result should especially be considered if the patient's recent exposures or clinical presentation suggest that SARS-CoV-2 infection is probable, and diagnostic tests for other causes of illness (e.g., other respiratory illness) are negative. Collection of a new specimen and re-testing may be necessary if the patient is critically ill or clinically deteriorating. Performed By: #### L [id number] #### [facility] (DEFAULT) [address] [place] [address] CBC AND ELECTRONIC DIFFon Basophils (Bld) [#/Vol] 0.04 10*3/uL Normal 0.00-0.[address] [facility] Comment on above: Performed By: #### L [id number] #### [facility] (DEFAULT) [address] [place] [address] Basophils/100 WBC (Bld) 0.3 % Normal [facility] Comment on above: Performed By: #### L [id number] #### [facility] (DEFAULT) [address] [place] [address] DIFF STATUS Electronic Differential Normal [facility] Comment on above: Performed By: #### L [id number] #### [facility] (DEFAULT) [address] [address] Eosinophils (Bld) [#/Vol] 0.16 10*3/uL Normal 0.00-0.[address] [facility] Comment on above: Performed By: #### L [id number] #### [facility] (DEFAULT) [address] [address] Eosinophils/100 WBC (Bld) 1.3 % Normal [facility] Comment on above: Performed By: #### L [id number] #### [facility] (DEFAULT) [address] [address] Hematocrit (Bld) [Volume fraction] 40.3 % Normal 39.6-48.[address] [facility] Comment on above: Performed By: #### L [id number] #### [facility] (DEFAULT) [address] [address] Hemoglobin (Bld) [Mass/Vol] 13.1 g/dL Low 13.4-16.[address] [facility] Comment on above: Performed By: #### L [id number] #### [facility] (DEFAULT) [address] [address] Immature Grans % 0.5 % Normal [facility] Comment on above: Performed By: #### L [id number] #### [facility] (DEFAULT) [address] [address] Immature Grans Absolute 0.06 K/uL Normal <=0.[address] [facility] Comment on above: Performed By: #### L [id number] #### [facility] (DEFAULT) [address] [address] Lymphocytes (Bld) [#/Vol] 2.09 10*3/uL Normal 0.83-3.[address] [facility] Comment on above: Performed By: #### L [id number] #### [facility] (DEFAULT) [address] [place] [address] Lymphocytes/100 WBC (Bld) 17.3 % Normal [facility] Comment on above: Performed By: #### L [id number] #### [facility] (DEFAULT) [address] [place] [address] MCV (RBC) [Entitic vol] 91.4 fL Normal 79.0-94.[address] [facility] Comment on above: Performed By: #### L [id number] #### [facility] (DEFAULT) [address] [place] [address] Mean Cell Hgb 29.7 pg Normal 26.1-33.[address] [facility] Comment on above: Performed By: #### L [id number] #### [facility] (DEFAULT) [address] [place] [address] Mean Cell Hgb Conc 32.5 g/dL Normal 31.9-36.5 [facility] Comment on above: Performed By: #### L [id number] #### [facility] (DEFAULT) [address] [place] [address] Monocytes (Bld) [#/Vol] 1.18 10*3/uL High 0.24-0.[address] [facility] Comment on above: Performed By: #### L [id number] #### [facility] (DEFAULT) [address] [place] [address] Monocytes/100 WBC (Bld) 9.7 % Normal [facility] Comment on above: Performed By: #### L [id number] #### [facility] (DEFAULT) [address] [place] [address] Nucleated RBC 0.0 /100 WBC Normal <=0.2 [facility] Comment on above: Performed By: #### L [id number] #### [facility] (DEFAULT) [address] [place] [address] Platelet mean volume (Bld) [Entitic vol] 10.8 fL Normal 8.7-12.[address] [facility] Comment on above: Performed By: #### L [id number] #### [facility] (DEFAULT) [address] [address] Platelets (Bld) [#/Vol] 218 10*3/uL Normal 146-[address] [facility] Comment on above: Performed By: #### L [id number] #### [facility] (DEFAULT) [address] [address] RBC (Bld) [#/Vol] 4.41 10*6/uL Normal 4.38-5.[address] [facility] Comment on above: Performed By: #### L [id number] #### [facility] (DEFAULT) [address] [address] RBC Distribution 13.3 % Normal 10.9-14.3 [facility] Comment on above: Performed By: #### L [id number] #### [facility] (DEFAULT) [address] [address] Segs + Bands Auto 70.9 % Normal [facility] Comment on above: Performed By: #### L [id number] #### [facility] (DEFAULT) [address] [address] Segs + Bands,Absolute Auto 8.58 K/uL High 1.57-6.[address] [facility] Comment on above: Performed By: #### L [id number] #### [facility] (DEFAULT) [address] [address] WBC (Bld) [#/Vol] 12.11 10*3/uL High 3.73-10.[address] [facility] Comment on above: Performed By: #### L [id number] #### [facility] (DEFAULT) [address] [address] CHEM 7 (LYTES,BUN,CREA,GLUC) on 06-02-2021 Anion gap [Moles/Vol] 14 mmol/L Normal 7-[address] [facility] Comment on above: Performed By: #### C HM7 #### [facility] (DEFAULT) [address] [place] [address] Chloride [Moles/Vol] 100 mmol/L Normal 98-[address] [facility] Comment on above: Performed By: #### C HM7 #### [facility] (DEFAULT) [address] [place] [address] CO2 [Moles/Vol] 27 mmol/L Normal 22-30 [facility] Comment on above: Performed By: #### C HM7 #### [facility] (DEFAULT) [address] [place] [address] Creatinine [Mass/Vol] 0.51 mg/dL Low 0.70-1.[address] [facility] Comment on above: Performed By: #### C HM7 #### [facility] (DEFAULT) [address] [place] [address] EST GFR, >=60 Normal >=[address] [facility] Comment on above: Performed By: #### C HM7 #### [facility] (DEFAULT) [address] [place] [address] EST GFR,Non >=60 Normal >=[address] [facility] Comment on above: Performed By: #### C HM7 #### [facility] (DEFAULT) [address] [place] [address] Glucose [Mass/Vol] 98 mg/dL Normal 70-99 [facility] Comment on above: Performed By: #### C HM7 #### [facility] (DEFAULT) [address] [place] [address] Osmolality [Osmolality] 287 mosm/kg Normal 278-[address] [facility] Comment on above: Performed By: #### C HM7 #### [facility] (DEFAULT) [address] [place] [address] Potassium [Moles/Vol] 4.3 mmol/L Normal 3.5-5.[address] [facility] Comment on above: Performed By: #### C HM7 #### [facility] (DEFAULT) [address] [place] [address] Sodium [Moles/Vol] 137 mmol/L Normal 133-143 [facility] Comment on above: Performed By: #### C HM7 #### [facility] (DEFAULT) [address] [place] [address] Urea nitrogen [Mass/Vol] 12 mg/dL Normal 7-[address] [facility] Comment on above: Performed By: #### C HM7 #### [facility] (DEFAULT) [address] [place] [address] Urea nitrogen/Creatinine [Mass ratio] 24 mg/mg Normal [facility] Comment on above: Performed By: #### C HM7 #### [facility] (DEFAULT) [address] [place] [address] XR FLUORO MODIFIED BARIUM SW ALLOW WITH SPEECHon 06-02-2021 XR FLUORO MODIFIED BARIUM SWALLOW WITH SPEECH EXAM: XR FLUORO MODIFIED BARIUM SWALLOW WITH SPEECH, 06/02/2021 14:29 PM COMPARISON: No prior studies available for comparison. CLINICAL INDICATIONS: Aspiration risk status post anterior cervical fusion hardware on 05/26/2021. TECHNIQUE: Multiple barium consistencies (including: Thin, nectar, and honey liquids; pudding and cracker solids) were administered to evaluate swallow. Lateral videofluoroscopy was performed in conjunction with Speech Pathology. The examination was performed by SID Garcia. Fluoroscopy Time: 2.0 min FINDINGS: Oral Phase: No significant impairment of the oral phase was visualized. Multiple radiopaque densities are noted from the patient's dental amalgams. Pharyngeal Phase: Silent aspiration occurs with thin and nectar liquid consistencies. There is no laryngeal penetration or aspiration noted with honey, pudding, or cracker consistencies. Diffuse residuals are noted throughout the pharynx after the swallow with honey, pudding, and cracker consistencies. There is reduced tongue base retraction, anterior hyoid excursion, laryngeal elevation, and pharyngeal contraction. Incomplete laryngeal vestibule closure was noted. Cervical Phase: Suboptimal evaluation of the cervical phase there is grossly functional. Limited visualization of the distal cervical spine and cervical esophagus due to overlapping shoulder anatomy. There are degenerative changes of the cervical spine with anterior fusion hardware. The prevertebral soft tissues are thickened likely related to postoperative edema. IMPRESSION: 1. Silent aspiration of thin and nectar liquid consistencies. 2. Pharyngeal phase swallowing impairments as described above. 3. Thickening of the prevertebral soft tissues likely related to edema from a recent anterior cervical fusion. For additional analysis of the fluoroscopic examination and specific therapeutic recommendations, please see the wire wrapper machine operator report of the speech pathologist. Examination performed by SID Garcia, under the direct supervision of Irish Garay M.D., who was immediately available on site during the examination. I personally viewed and interpreted these images and I have reviewed and approved this report. Normal [facility] CBC AND ELECTRONIC DIFFon Basophils (Bld) [#/Vol] 0.06 10*3/uL Normal 0.00-0.[address] [facility] Comment on above: Performed By: #### X M #### [facility] (DEFAULT) [address] [address] Basophils/100 WBC (Bld) 0.5 % Normal [facility] Comment on above: Performed By: #### X M #### [facility] (DEFAULT) [address] [address] DIFF STATUS Electronic Differential Normal [facility] Comment on above: Performed By: #### X M #### [facility] (DEFAULT) [address] [address] Eosinophils (Bld) [#/Vol] 0.20 10*3/uL Normal 0.00-0.[address] [facility] Comment on above: Performed By: #### X M #### [facility] (DEFAULT) [address] [address] Eosinophils/100 WBC (Bld) 1.7 % Normal [facility] Comment on above: Performed By: #### X M #### [facility] (DEFAULT) [address] [place] [address] Hematocrit (Bld) [Volume fraction] 41.0 % Normal 39.6-48.[address] [facility] Comment on above: Performed By: #### X M #### [facility] (DEFAULT) [address] [place] [address] Hemoglobin (Bld) [Mass/Vol] 13.3 g/dL Low 13.4-16.[address] [facility] Comment on above: Performed By: #### X M #### [facility] (DEFAULT) [address] [address] Immature Grans % 0.3 % Normal [facility] Comment on above: Performed By: #### X M #### [facility] (DEFAULT) [address] [place] [address] Immature Grans Absolute 0.04 K/uL Normal <=0.[address] [facility] Comment on above: Performed By: #### X M #### [facility] (DEFAULT) [address] [place] [address] 46970 Lymphocytes (Bld) [#/Vol] 3.98 10*3/uL High 0.83-3.[address] [facility] Comment on above: Performed By: #### X M #### [facility] (DEFAULT) [address] [address] Lymphocytes/100 WBC (Bld) 32.9 % Normal [facility] Comment on above: Performed By: #### X M #### [facility] (DEFAULT) [address] [address] MCV (RBC) [Entitic vol] 90.7 fL Normal 79.0-94.[address] [facility] Comment on above: Performed By: #### X M #### [facility] (DEFAULT) [address] [place] [address] 24669 Mean Cell Hgb 29.4 pg Normal 26.1-33.[address] [facility] Comment on above: Performed By: #### X M #### [facility] (DEFAULT) [address] [place] [address] 42553 Mean Cell Hgb Conc 32.4 g/dL Normal 31.9-36.5 [facility] Comment on above: Performed By: #### X M #### [facility] (DEFAULT) [address] [place] [address] 21397 Monocytes (Bld) [#/Vol] 1.26 10*3/uL High 0.24-0.[address] [facility] Comment on above: Performed By: #### X M #### [facility] (DEFAULT) [address] [address] Monocytes/100 WBC (Bld) 10.4 % Normal [facility] Comment on above: Performed By: #### X M #### [facility] (DEFAULT) [address] [place] [address] 65766 Nucleated RBC 0.0 /100 WBC Normal <=0.2 [facility] Comment on above: Performed By: #### X M #### [facility] (DEFAULT) [address] [place] [address] 53086 Platelet mean volume (Bld) [Entitic vol] 11.2 fL Normal 8.7-12.[address] [facility] Comment on above: Performed By: #### X M #### [facility] (DEFAULT) [address] [place] [address] 01594 Platelets (Bld) [#/Vol] 266 10*3/uL Normal 146-[address] [facility] Comment on above: Performed By: #### X M #### [facility] (DEFAULT) [address] [address] RBC (Bld) [#/Vol] 4.52 10*6/uL Normal 4.38-5.[address] [facility] Comment on above: Performed By: #### X M #### [facility] (DEFAULT) [address] [place] [address] 14067 RBC Distribution 13.6 % Normal 10.9-14.3 [facility] Comment on above: Performed By: #### X M #### [facility] (DEFAULT) [address] [place] [address] 94666 Segs + Bands Auto 54.2 % Normal [facility] Comment on above: Performed By: #### X M #### [facility] (DEFAULT) [address] [place] [address] 27196 Segs + Bands,Absolute Auto 6.57 K/uL High 1.57-6.[address] [facility] Comment on above: Performed By: #### X M #### [facility] (DEFAULT) [address] [place] [address] 78293 WBC (Bld) [#/Vol] 12.11 10*3/uL High 3.73-10.[address] [facility] Comment on above: Performed By: #### X M #### [facility] (DEFAULT) [address] [place] [address] 64802 CHEM 7 (LYTES,BUN,CREA,GLUC) on 06-01-2021 Anion gap [Moles/Vol] 14 mmol/L Normal 7-[address] [facility] Comment on above: Performed By: #### L [id number] #### [facility] (DEFAULT) [address] [place] [address] 88295 Chloride [Moles/Vol] 100 mmol/L Normal 98-[address] [facility] Comment on above: Performed By: #### L [id number] #### [facility] (DEFAULT) [address] [place] [address] 49628 CO2 [Moles/Vol] 25 mmol/L Normal 22-30 [facility] Comment on above: Performed By: #### L [id number] #### [facility] (DEFAULT) [address] [place] [address] 85948 Creatinine [Mass/Vol] 0.77 mg/dL Normal 0.70-1.[address] [facility] Comment on above: Performed By: #### L [id number] #### [facility] (DEFAULT) [address] [place] [address] 14209 EST GFR, >=60 Normal >=[address] [facility] Comment on above: Performed By: #### L [id number] #### [facility] (DEFAULT) [address] [place] [address] 65371 EST GFR,Non >=60 Normal >=[address] [facility] Comment on above: Performed By: #### L [id number] #### [facility] (DEFAULT) [address] [place] [address] 96807 Glucose [Mass/Vol] 93 mg/dL Normal 70-99 [facility] Comment on above: Performed By: #### L [id number] #### [facility] (DEFAULT) [address] [place] [address] 48629 Osmolality [Osmolality] 284 mosm/kg Normal 278-[address] [facility] Comment on above: Performed By: #### L [id number] #### [facility] (DEFAULT) [address] [place] [address] 67807 Potassium [Moles/Vol] 4.1 mmol/L Normal 3.5-5.[address] [facility] Comment on above: Performed By: #### L [id number] #### [facility] (DEFAULT) [address] [place] [address] 47205 Sodium [Moles/Vol] 135 mmol/L Normal 133-143 [facility] Comment on above: Performed By: #### L [id number] #### [facility] (DEFAULT) [address] [place] [address] 54097 Urea nitrogen [Mass/Vol] 16 mg/dL Normal 7-[address] [facility] Comment on above: Performed By: #### L [id number] #### [facility] (DEFAULT) [address] [place] [address] 25379 Urea nitrogen/Creatinine [Mass ratio] 21 mg/mg Normal [facility] Comment on above: Performed By: #### L [id number] #### [facility] (DEFAULT) [address] [place] [address] 52850 CBC AND ELECTRONIC DIFFon Basophils (Bld) [#/Vol] 10*3/uL Normal 0.00-0.[address] [facility] Comment on above: Performed By: #### C HM7 #### [facility] (DEFAULT) [address] [place] [address] 15799 Basophils/100 WBC (Bld) 0.3 % Normal [facility] Comment on above: Performed By: #### C HM7 #### [facility] (DEFAULT) [address] [address] DIFF STATUS Electronic Differential Normal [facility] Comment on above: Performed By: #### C HM7 #### [facility] (DEFAULT) [address] [address] Eosinophils (Bld) [#/Vol] 0.25 10*3/uL Normal 0.00-0.[address] [facility] Comment on above: Performed By: #### C HM7 #### [facility] (DEFAULT) [address] [address] Eosinophils/100 WBC (Bld) 2.6 % Normal [facility] Comment on above: Performed By: #### C HM7 #### [facility] (DEFAULT) [address] [address] Hematocrit (Bld) [Volume fraction] 44.6 % Normal 39.6-48.[address] [facility] Comment on above: Performed By: #### C HM7 #### [facility] (DEFAULT) [address] [address] Hemoglobin (Bld) [Mass/Vol] 14.7 g/dL Normal 13.4-16.[address] [facility] Comment on above: Performed By: #### C HM7 #### [facility] (DEFAULT) [address] [place] [address] 03294 Immature Grans % 0.4 % Normal [facility] Comment on above: Performed By: #### C HM7 #### [facility] (DEFAULT) [address] [place] [address] 42012 Immature Grans Absolute 0.04 K/uL Normal <=0.[address] [facility] Comment on above: Performed By: #### C HM7 #### [facility] (DEFAULT) [address] [place] [address] 44159 Lymphocytes (Bld) [#/Vol] 2.64 10*3/uL Normal 0.83-3.[address] [facility] Comment on above: Performed By: #### Adonis HM7 #### [facility] (DEFAULT) [address] [address] Lymphocytes/100 WBC (Bld) 27.3 % Normal [facility] Comment on above: Performed By: #### C HM7 #### [facility] (DEFAULT) [address] [address] MCV (RBC) [Entitic vol] 90.3 fL Normal 79.0-94.[address] [facility] Comment on above: Performed By: #### Adonis HM7 #### [facility] (DEFAULT) [address] [place] [address] 12137 Mean Cell Hgb 29.8 pg Normal 26.1-33.[address] [facility] Comment on above: Performed By: #### C HM7 #### [facility] (DEFAULT) [address] 8[address] Mean Cell Hgb Conc 33.0 g/dL Normal 31.9-36.5 [facility] Comment on above: Performed By: #### C HM7 #### [facility] (DEFAULT) [address] [place] [address] 84768 Monocytes (Bld) [#/Vol] 1.05 10*3/uL High 0.24-0.[address] [facility] Comment on above: Performed By: #### C HM7 #### [facility] (DEFAULT) [address] [place] [address] 24803 Monocytes/100 WBC (Bld) 10.9 % Normal [facility] Comment on above: Performed By: #### C HM7 #### [facility] (DEFAULT) [address] [place] [address] 22121 Nucleated RBC 0.0 /100 WBC Normal <=0.2 [facility] Comment on above: Performed By: #### C HM7 #### [facility] (DEFAULT) [address] [place] [address] 40117 Platelet mean volume (Bld) [Entitic vol] 11.2 fL Normal 8.7-12.[address] [facility] Comment on above: Performed By: #### C HM7 #### [facility] (DEFAULT) [address] [place] [address] 02177 Platelets (Bld) [#/Vol] 270 10*3/uL Normal 146-[address] [facility] Comment on above: Performed By: #### C HM7 #### [facility] (DEFAULT) [address] [place] [address] 11701 RBC (Bld) [#/Vol] 4.94 10*6/uL Normal 4.38-5.[address] [facility] Comment on above: Performed By: #### C HM7 #### [facility] (DEFAULT) [address] [place] [address] 34515 RBC Distribution 13.7 % Normal 10.9-14.3 [facility] Comment on above: Performed By: #### C HM7 #### [facility] (DEFAULT) [address] [place] [address] 70026 Segs + Bands Auto 58.5 % Normal [facility] Comment on above: Performed By: #### C HM7 #### [facility] (DEFAULT) [address] [place] [address] 59089 Segs + Bands,Absolute Auto 5.65 K/uL Normal 1.57-6.[address] [facility] Comment on above: Performed By: #### C HM7 #### [facility] (DEFAULT) [address] [place] [address] 92617 WBC (Bld) [#/Vol] 9.66 10*3/uL Normal 3.73-10.[address] [facility] Comment on above: Performed By: #### C HM7 #### [facility] (DEFAULT) [address] [place] [address] 72875 CHEM 7 (LYTES,BUN,CREA,GLUC) on 05-31-2021 Anion gap [Moles/Vol] 14 mmol/L Normal 7-[address] [facility] Comment on above: Performed By: #### L [id number] #### [facility] (DEFAULT) [address] [place] [address] 98340 Chloride [Moles/Vol] 100 mmol/L Normal 98-[address] [facility] Comment on above: Performed By: #### L [id number] #### [facility] (DEFAULT) [address] [place] [address] 88612 CO2 [Moles/Vol] 28 mmol/L Normal 22-30 [facility] Comment on above: Performed By: #### L [id number] #### [facility] (DEFAULT) [address] [place] [address] 09757 Creatinine [Mass/Vol] 0.67 mg/dL Low 0.70-1.[address] [facility] Comment on above: Performed By: #### L [id number] #### [facility] (DEFAULT) [address] [place] [address] 49318 EST GFR, >=60 Normal >=[address] [facility] Comment on above: Performed By: #### L [id number] #### [facility] (DEFAULT) [address] [place] [address] 14868 EST GFR,Non >=60 Normal >=[address] [facility] Comment on above: Performed By: #### L [id number] #### [facility] (DEFAULT) [address] [place] [address] 16308 Glucose [Mass/Vol] 97 mg/dL Normal 70-99 [facility] Comment on above: Performed By: #### L [id number] #### [facility] (DEFAULT) [address] [place] [address] 91506 Osmolality [Osmolality] 289 mosm/kg Normal 278-[address] [facility] Comment on above: Performed By: #### L [id number] #### [facility] (DEFAULT) [address] [place] [address] 01050 Potassium [Moles/Vol] 4.0 mmol/L Normal 3.5-5.[address] [facility] Comment on above: Performed By: #### L [id number] #### [facility] (DEFAULT) [address] [place] [address] 21497 Sodium [Moles/Vol] 138 mmol/L Normal 133-143 [facility] Comment on above: Performed By: #### L [id number] #### [facility] (DEFAULT) [address] [place] [address] 14589 Urea nitrogen [Mass/Vol] 12 mg/dL Normal 7-[address] [facility] Comment on above: Performed By: #### L [id number] #### [facility] (DEFAULT) [address] [place] [address] 18490 Urea nitrogen/Creatinine [Mass ratio] 18 mg/mg Normal [facility] Comment on above: Performed By: #### L [id number] #### [facility] (DEFAULT) [address] [place] [address] 34957 CBC AND ELECTRONIC DIFFon Basophils (Bld) [#/Vol] 0.04 10*3/uL Normal 0.00-0.[address] [facility] Comment on above: Performed By: #### C HM7 #### [facility] (DEFAULT) [address] [place] [address] 58622 Basophils/100 WBC (Bld) 0.4 % Normal [facility] Comment on above: Performed By: #### C HM7 #### [facility] (DEFAULT) [address] [address] DIFF STATUS Electronic Differential Normal [facility] Comment on above: Performed By: #### C HM7 #### [facility] (DEFAULT) [address] [address] Eosinophils (Bld) [#/Vol] 0.29 10*3/uL Normal 0.00-0.[address] [facility] Comment on above: Performed By: #### C HM7 #### [facility] (DEFAULT) [address] [address] Eosinophils/100 WBC (Bld) 2.5 % Normal [facility] Comment on above: Performed By: #### C HM7 #### [facility] (DEFAULT) [address] [address] Hematocrit (Bld) [Volume fraction] 42.2 % Normal 39.6-48.[address] [facility] Comment on above: Performed By: #### C HM7 #### [facility] (DEFAULT) [address] [address] Hemoglobin (Bld) [Mass/Vol] 13.9 g/dL Normal 13.4-16.[address] [facility] Comment on above: Performed By: #### C HM7 #### [facility] (DEFAULT) [address] [address] Immature Grans % 0.4 % Normal [facility] Comment on above: Performed By: #### C HM7 #### [facility] (DEFAULT) [address] [address] Immature Grans Absolute 0.04 K/uL Normal <=0.[address] [facility] Comment on above: Performed By: #### C HM7 #### [facility] (DEFAULT) [address] [address] Lymphocytes (Bld) [#/Vol] 2.54 10*3/uL Normal 0.83-3.[address] [facility] Comment on above: Performed By: #### C HM7 #### [facility] (DEFAULT) [address] [address] Lymphocytes/100 WBC (Bld) 22.3 % Normal [facility] Comment on above: Performed By: #### C HM7 #### [facility] (DEFAULT) [address] [address] MCV (RBC) [Entitic vol] 90.0 fL Normal 79.0-94.[address] [facility] Comment on above: Performed By: #### Adonis HM7 #### [facility] (DEFAULT) [address] [address] Mean Cell Hgb 29.6 pg Normal 26.1-33.[address] [facility] Comment on above: Performed By: #### C HM7 #### [facility] (DEFAULT) [address] [address] Mean Cell Hgb Conc 32.9 g/dL Normal 31.9-36.5 [facility] Comment on above: Performed By: #### C HM7 #### [facility] (DEFAULT) [address] [address] Monocytes (Bld) [#/Vol] 1.35 10*3/uL High 0.24-0.[address] [facility] Comment on above: Performed By: #### C HM7 #### [facility] (DEFAULT) [address] [address] Monocytes/100 WBC (Bld) 11.9 % Normal [facility] Comment on above: Performed By: #### C HM7 #### [facility] (DEFAULT) [address] [address] Nucleated RBC 0.0 /100 WBC Normal <=0.2 [facility] Comment on above: Performed By: #### C HM7 #### [facility] (DEFAULT) [address] [place] [address] 43133 Platelet mean volume (Bld) [Entitic vol] 11.7 fL Normal 8.7-12.[address] [facility] Comment on above: Performed By: #### C HM7 #### [facility] (DEFAULT) [address] [place] [address] 10443 Platelets (Bld) [#/Vol] 246 10*3/uL Normal 146-[address] [facility] Comment on above: Performed By: #### C HM7 #### [facility] (DEFAULT) [address] [place] [address] 10577 RBC (Bld) [#/Vol] 4.69 10*6/uL Normal 4.38-5.[address] [facility] Comment on above: Performed By: #### C HM7 #### [facility] (DEFAULT) [address] [place] [address] 01337 RBC Distribution 13.5 % Normal 10.9-14.3 [facility] Comment on above: Performed By: #### C HM7 #### [facility] (DEFAULT) [address] [place] [address] 09003 Segs + Bands Auto 62.5 % Normal [facility] Comment on above: Performed By: #### C HM7 #### [facility] (DEFAULT) [address] [place] [address] 36242 Segs + Bands,Absolute Auto 7.13 K/uL High 1.57-6.[address] [facility] Comment on above: Performed By: #### C HM7 #### [facility] (DEFAULT) [address] [place] [address] 36310 WBC (Bld) [#/Vol] 11.39 10*3/uL High 3.73-10.[address] [facility] Comment on above: Performed By: #### C HM7 #### [facility] (DEFAULT) [address] [place] [address] 79427 CHEM 7 (LYTES,BUN,CREA,GLUC) on 05-30-2021 Anion gap [Moles/Vol] 10 mmol/L Normal 7-[address] [facility] Comment on above: Performed By: #### C HM7 #### [facility] (DEFAULT) [address] [place] [address] 51760 Chloride [Moles/Vol] 98 mmol/L Normal 98-[address] [facility] Comment on above: Performed By: #### C HM7 #### [facility] (DEFAULT) [address] [place] [address] 58829 CO2 [Moles/Vol] 33 mmol/L High 22-30 [facility] Comment on above: Performed By: #### C HM7 #### [facility] (DEFAULT) [address] [place] [address] 27106 Creatinine [Mass/Vol] 0.56 mg/dL Low 0.70-1.[address] [facility] Comment on above: Performed By: #### C HM7 #### [facility] (DEFAULT) [address] [place] [address] 71068 EST GFR, >=60 Normal >=[address] [facility] Comment on above: Performed By: #### C HM7 #### [facility] (DEFAULT) [address] [place] [address] 70488 EST GFR,Non >=60 Normal >=[address] [facility] Comment on above: Performed By: #### C HM7 #### [facility] (DEFAULT) [address] [place] [address] 09011 Glucose [Mass/Vol] 93 mg/dL Normal 70-99 [facility] Comment on above: Performed By: #### C HM7 #### [facility] (DEFAULT) [address] [place] [address] 31751 Osmolality [Osmolality] 287 mosm/kg Normal 278-[address] [facility] Comment on above: Performed By: #### C HM7 #### [facility] (DEFAULT) [address] [place] [address] 12102 Potassium [Moles/Vol] 3.9 mmol/L Normal 3.5-5.[address] [facility] Comment on above: Performed By: #### C HM7 #### [facility] (DEFAULT) [address] [place] [address] 57544 Sodium [Moles/Vol] 137 mmol/L Normal 133-143 [facility] Comment on above: Performed By: #### C HM7 #### [facility] (DEFAULT) [address] [place] [address] 72584 Urea nitrogen [Mass/Vol] 13 mg/dL Normal 7-[address] [facility] Comment on above: Performed By: #### C HM7 #### [facility] (DEFAULT) [address] [place] [address] 51743 Urea nitrogen/Creatinine [Mass ratio] 23 mg/mg Normal [facility] Comment on above: Performed By: #### C HM7 #### [facility] (DEFAULT) [address] [place] [address] 23558 CBC AND ELECTRONIC DIFFon Basophils (Bld) [#/Vol] 0.04 10*3/uL Normal 0.00-0.[address] [facility] Comment on above: Performed By: #### L [id number] #### [facility] (DEFAULT) [address] [place] [address] 86954 Basophils/100 WBC (Bld) 0.4 % Normal [facility] Comment on above: Performed By: #### L [id number] #### [facility] (DEFAULT) [address] [address] DIFF STATUS Electronic Differential Normal [facility] Comment on above: Performed By: #### L [id number] #### [facility] (DEFAULT) [address] [place] [address] 08447 Eosinophils (Bld) [#/Vol] 0.34 10*3/uL Normal 0.00-0.[address] [facility] Comment on above: Performed By: #### L [id number] #### [facility] (DEFAULT) [address] [address] Eosinophils/100 WBC (Bld) 3.1 % Normal [facility] Comment on above: Performed By: #### L [id number] #### [facility] (DEFAULT) [address] [address] Hematocrit (Bld) [Volume fraction] 45.1 % Normal 39.6-48.[address] [facility] Comment on above: Performed By: #### L [id number] #### [facility] (DEFAULT) [address] [address] Hemoglobin (Bld) [Mass/Vol] 14.8 g/dL Normal 13.4-16.[address] [facility] Comment on above: Performed By: #### L [id number] #### [facility] (DEFAULT) [address] [address] Immature Grans % 0.4 % Normal [facility] Comment on above: Performed By: #### L [id number] #### [facility] (DEFAULT) [address] [address]863 Immature Grans Absolute 0.04 K/uL Normal <=0.[address] [facility] Comment on above: Performed By: #### L [id number] #### [facility] (DEFAULT) [address] [address] Lymphocytes (Bld) [#/Vol] 2.89 10*3/uL Normal 0.83-3.[address] [facility] Comment on above: Performed By: #### L [id number] #### [facility] (DEFAULT) [address] [address] Lymphocytes/100 WBC (Bld) 26.6 % Normal [facility] Comment on above: Performed By: #### L [id number] #### [facility] (DEFAULT) [address] [address] MCV (RBC) [Entitic vol] 91.3 fL Normal 79.0-94.[address] [facility] Comment on above: Performed By: #### L [id number] #### [facility] (DEFAULT) [address] [address] Mean Cell Hgb 30.0 pg Normal 26.1-33.[address] [facility] Comment on above: Performed By: #### L [id number] #### [facility] (DEFAULT) [address] [address] Mean Cell Hgb Conc 32.8 g/dL Normal 31.9-36.5 [facility] Comment on above: Performed By: #### L [id number] #### [facility] (DEFAULT) [address] [address] Monocytes (Bld) [#/Vol] 1.16 10*3/uL High 0.24-0.[address] [facility] Comment on above: Performed By: #### L [id number] #### [facility] (DEFAULT) [address] [address] Monocytes/100 WBC (Bld) 10.7 % Normal [facility] Comment on above: Performed By: #### L [id number] #### [facility] (DEFAULT) [address] [address] Nucleated RBC 0.0 /100 WBC Normal <=0.2 [facility] Comment on above: Performed By: #### L [id number] #### [facility] (DEFAULT) [address] [address] Platelet mean volume (Bld) [Entitic vol] 11.1 fL Normal 8.7-12.[address] [facility] Comment on above: Performed By: #### L [id number] #### [facility] (DEFAULT) [address] [address] Platelets (Bld) [#/Vol] 199 10*3/uL Normal 146-[address] [facility] Comment on above: Performed By: #### L [id number] #### [facility] (DEFAULT) [address] [place] [address] 59055 RBC (Bld) [#/Vol] 4.94 10*6/uL Normal 4.38-5.[address] [facility] Comment on above: Performed By: #### L [id number] #### [facility] (DEFAULT) [address] [place] [address] 99419 RBC Distribution 13.2 % Normal 10.9-14.3 [facility] Comment on above: Performed By: #### L [id number] #### [facility] (DEFAULT) [address] [place] [address] 63188 Segs + Bands Auto 58.8 % Normal [facility] Comment on above: Performed By: #### L [id number] #### [facility] (DEFAULT) [address] [place] [address] 79736 Segs + Bands,Absolute Auto 6.41 K/uL High 1.57-6.[address] [facility] Comment on above: Performed By: #### L [id number] #### [facility] (DEFAULT) [address] [place] [address] 14012 WBC (Bld) [#/Vol] 10.88 10*3/uL High 3.73-10.[address] [facility] Comment on above: Performed By: #### L [id number] #### [facility] (DEFAULT) [address] [place] [address] 18806 CHEM 7 (LYTES,BUN,CREA,GLUC) on 05-29-2021 Anion gap [Moles/Vol] 16 mmol/L Normal 7-[address] [facility] Comment on above: Performed By: #### X M #### [facility] (DEFAULT) [address] [place] [address] 76145 Chloride [Moles/Vol] 101 mmol/L Normal 98-[address] [facility] Comment on above: Performed By: #### X M #### [facility] (DEFAULT) [address] [place] [address] 18365 CO2 [Moles/Vol] 27 mmol/L Normal 22-30 [facility] Comment on above: Performed By: #### X M #### [facility] (DEFAULT) [address] [place] [address] 12597 Creatinine [Mass/Vol] 0.56 mg/dL Low 0.70-1.[address] [facility] Comment on above: Performed By: #### X M #### [facility] (DEFAULT) [address] [place] [address] 49311 EST GFR, >=60 Normal >=[address] [facility] Comment on above: Performed By: #### X M #### [facility] (DEFAULT) [address] [place] [address] 33825 EST GFR,Non >=60 Normal >=[address] [facility] Comment on above: Performed By: #### X M #### [facility] (DEFAULT) [address] [place] [address] 40408 Glucose [Mass/Vol] 95 mg/dL Normal 70-99 [facility] Comment on above: Performed By: #### X M #### [facility] (DEFAULT) [address] [place] [address] 38493 Osmolality [Osmolality] 290 mosm/kg Normal 278-[address] [facility] Comment on above: Performed By: #### X M #### [facility] (DEFAULT) [address] [address] Potassium [Moles/Vol] 3.7 mmol/L Normal 3.5-5.[address] [facility] Comment on above: Performed By: #### X M #### [facility] (DEFAULT) [address] [place] [address] 45349 Sodium [Moles/Vol] 140 mmol/L Normal 133-143 [facility] Comment on above: Performed By: #### X M #### [facility] (DEFAULT) [address] [place] [address] 73912 Urea nitrogen [Mass/Vol] 7 mg/dL Normal 7-[address] [facility] Comment on above: Performed By: #### X M #### [facility] (DEFAULT) [address] [place] [address] 69592 Urea nitrogen/Creatinine [Mass ratio] 13 mg/mg Normal [facility] Comment on above: Performed By: #### X M #### [facility] (DEFAULT) [address] [place] [address] 34645 CBC AND ELECTRONIC DIFFon Basophils (Bld) [#/Vol] 10*3/uL Normal 0.00-0.[address] [facility] Comment on above: Performed By: #### C HM7 #### [facility] (DEFAULT) [address] [place] [address] 86870 Basophils/100 WBC (Bld) 0.3 % Normal [facility] Comment on above: Performed By: #### C HM7 #### [facility] (DEFAULT) [address] [place] [address] 26133 DIFF STATUS Electronic Differential Normal [facility] Comment on above: Performed By: #### C HM7 #### [facility] (DEFAULT) [address] [place] [address] 18591 Eosinophils (Bld) [#/Vol] 0.13 10*3/uL Normal 0.00-0.[address] [facility] Comment on above: Performed By: #### C HM7 #### [facility] (DEFAULT) [address] [place] [address] 79124 Eosinophils/100 WBC (Bld) 1.4 % Normal [facility] Comment on above: Performed By: #### C HM7 #### [facility] (DEFAULT) [address] [place] [address] 61029 Hematocrit (Bld) [Volume fraction] 40.1 % Normal 39.6-48.[address] [facility] Comment on above: Performed By: #### C HM7 #### [facility] (DEFAULT) [address] [place] [address] 65148 Hemoglobin (Bld) [Mass/Vol] 13.2 g/dL Low 13.4-16.[address] [facility] Comment on above: Performed By: #### C HM7 #### [facility] (DEFAULT) [address] [place] [address] 86942 Immature Grans % 0.4 % Normal [facility] Comment on above: Performed By: #### C HM7 #### [facility] (DEFAULT) [address] [place] [address] 01299 Immature Grans Absolute 0.04 K/uL Normal <=0.[address] [facility] Comment on above: Performed By: #### C HM7 #### [facility] (DEFAULT) [address] [place] [address] 44150 Lymphocytes (Bld) [#/Vol] 1.61 10*3/uL Normal 0.83-3.[address] [facility] Comment on above: Performed By: #### C HM7 #### [facility] (DEFAULT) [address] [address] Lymphocytes/100 WBC (Bld) 17.2 % Normal [facility] Comment on above: Performed By: #### C HM7 #### [facility] (DEFAULT) [address] [place] [address] 77150 MCV (RBC) [Entitic vol] 88.7 fL Normal 79.0-94.[address] [facility] Comment on above: Performed By: #### C HM7 #### [facility] (DEFAULT) [address] [place] [address] 32931 Mean Cell Hgb 29.2 pg Normal 26.1-33.[address] [facility] Comment on above: Performed By: #### C HM7 #### [facility] (DEFAULT) [address] [place] [address] 91363 Mean Cell Hgb Conc 32.9 g/dL Normal 31.9-36.5 [facility] Comment on above: Performed By: #### C HM7 #### [facility] (DEFAULT) [address] [address] Monocytes (Bld) [#/Vol] 0.86 10*3/uL Normal 0.24-0.[address] [facility] Comment on above: Performed By: #### C HM7 #### [facility] (DEFAULT) [address] 94339 Monocytes/100 WBC (Bld) 9.2 % Normal [facility] Comment on above: Performed By: #### C HM7 #### [facility] (DEFAULT) [address] 41018 Nucleated RBC 0.0 /100 WBC Normal <=0.2 [facility] Comment on above: Performed By: #### C HM7 #### [facility] (DEFAULT) [address] 08202 Platelet mean volume (Bld) [Entitic vol] 11.4 fL Normal 8.7-12.[address] [facility] Comment on above: Performed By: #### C HM7 #### [facility] (DEFAULT) [address] 14160 Platelets (Bld) [#/Vol] 225 10*3/uL Normal 146-[address] [facility] Comment on above: Performed By: #### C HM7 #### [facility] (DEFAULT) [address] 15887 RBC (Bld) [#/Vol] 4.52 10*6/uL Normal 4.38-5.[address] [facility] Comment on above: Performed By: #### C HM7 #### [facility] (DEFAULT) [address] 56542 RBC Distribution 13.2 % Normal 10.9-14.3 [facility] Comment on above: Performed By: #### C HM7 #### [facility] (DEFAULT) [address] [place] [address] 57228 Segs + Bands Auto 71.5 % Normal [facility] Comment on above: Performed By: #### C HM7 #### [facility] (DEFAULT) [address] [place] [address] 33173 Segs + Bands,Absolute Auto 6.71 K/uL High 1.57-6.[address] [facility] Comment on above: Performed By: #### C HM7 #### [facility] (DEFAULT) [address] [place] [address] 92517 WBC (Bld) [#/Vol] 9.38 10*3/uL Normal 3.73-10.[address] [facility] Comment on above: Performed By: #### C HM7 #### [facility] (DEFAULT) [address] [place] [address] 82208 CHEM 7 (LYTES,BUN,CREA,GLUC) on 05-28-2020 Anion gap [Moles/Vol] 15 mmol/L Normal 7-[address] [facility] Comment on above: Performed By: #### C HM7 #### [facility] (DEFAULT) [address] [place] [address] 81447 Chloride [Moles/Vol] 101 mmol/L Normal 98-[address] [facility] Comment on above: Performed By: #### C HM7 #### [facility] (DEFAULT) [address] [place] [address] 19390 CO2 [Moles/Vol] 26 mmol/L Normal 22-30 [facility] Comment on above: Performed By: #### C HM7 #### [facility] (DEFAULT) [address] [place] [address] 05672 Creatinine [Mass/Vol] 0.58 mg/dL Low 0.70-1.[address] [facility] Comment on above: Performed By: #### C HM7 #### [facility] (DEFAULT) [address] [place] [address] 04797 EST GFR, >=60 Normal >=[address] [facility] Comment on above: Performed By: #### C HM7 #### [facility] (DEFAULT) [address] [place] [address] 62563 EST GFR,Non >=60 Normal >=[address] [facility] Comment on above: Performed By: #### C HM7 #### [facility] (DEFAULT) [address] [place] [address] 73666 Glucose [Mass/Vol] 109 mg/dL High 70-99 [facility] Comment on above: Performed By: #### C HM7 #### [facility] (DEFAULT) [address] [place] [address] 63259 Osmolality [Osmolality] 288 mosm/kg Normal 278-[address] [facility] Comment on above: Performed By: #### C HM7 #### [facility] (DEFAULT) [address] [place] [address] 89703 Potassium [Moles/Vol] 3.8 mmol/L Normal 3.5-5.[address] [facility] Comment on above: Performed By: #### C HM7 #### [facility] (DEFAULT) [address] [place] [address] 94216 Sodium [Moles/Vol] 138 mmol/L Normal 133-143 [facility] Comment on above: Performed By: #### C HM7 #### [facility] (DEFAULT) [address] [place] [address] 74616 Urea nitrogen [Mass/Vol] 8 mg/dL Normal 7-[address] [facility] Comment on above: Performed By: #### C HM7 #### [facility] (DEFAULT) [address] [place] [address] 78333 Urea nitrogen/Creatinine [Mass ratio] 14 mg/mg Normal [facility] Comment on above: Performed By: #### C HM7 #### [facility] (DEFAULT) [address] [place] [address] 92189 PT,INR,PTTon 05-28-2021 aPTT Coag (Bld) [Time] 27.7 s Normal 24.0-34.[address] [facility] Comment on above: Performed By: #### X M #### [facility] (DEFAULT) [address] [place] [address] 93908 INR Coag (PPP) [Relative time] 1.2 {INR} High 0.9-1.[address] [facility] Comment on above: Performed By: #### X M #### [facility] (DEFAULT) [address] [place] [address] 24188 PT Coag (PPP) [Time] 14.6 s High 11.9-14.[address] [facility] Comment on above: Performed By: #### X M #### [facility] (DEFAULT) [address] [place] [address] 54035 CBC AND ELECTRONIC DIFFon Basophils (Bld) [#/Vol] 10*3/uL Normal 0.00-0.[address] [facility] Comment on above: Performed By: #### C HM7 #### [facility] (DEFAULT) [address] [place] [address] 31463 Basophils/100 WBC (Bld) 0.3 % Normal [facility] Comment on above: Performed By: #### C HM7 #### [facility] (DEFAULT) [address] [address]163 DIFF STATUS Electronic Differential Normal [facility] Comment on above: Performed By: #### C HM7 #### [facility] (DEFAULT) [address] [place] [address] 91985 Eosinophils (Bld) [#/Vol] 0.11 10*3/uL Normal 0.00-0.[address] [facility] Comment on above: Performed By: #### C HM7 #### [facility] (DEFAULT) [address] [place] [address] 63221 Eosinophils/100 WBC (Bld) 1.3 % Normal [facility] Comment on above: Performed By: #### C HM7 #### [facility] (DEFAULT) [address] [place] [address] 23452 Hematocrit (Bld) [Volume fraction] 39.2 % Low 39.6-48.[address] [facility] Comment on above: Performed By: #### C HM7 #### [facility] (DEFAULT) [address] [place] [address] 22620 Hemoglobin (Bld) [Mass/Vol] 12.5 g/dL Low 13.4-16.[address] [facility] Comment on above: Performed By: #### C HM7 #### [facility] (DEFAULT) [address] [place] [address] 45975 Immature Grans % 0.3 % Normal [facility] Comment on above: Performed By: #### C HM7 #### [facility] (DEFAULT) [address] [place] [address] 08676 Immature Grans Absolute <0.04 Normal <=0.[address] [facility] Comment on above: Performed By: #### C HM7 #### [facility] (DEFAULT) [address] [place] [address] 09522 Lymphocytes (Bld) [#/Vol] 1.72 10*3/uL Normal 0.83-3.[address] [facility] Comment on above: Performed By: #### C HM7 #### [facility] (DEFAULT) [address] 49680 Lymphocytes/100 WBC (Bld) 19.7 % Normal [facility] Comment on above: Performed By: #### C HM7 #### [facility] (DEFAULT) [address] [address]190 MCV (RBC) [Entitic vol] 92.2 fL Normal 79.0-94.[address] [facility] Comment on above: Performed By: #### C HM7 #### [facility] (DEFAULT) [address] [place] [address] 86161 Mean Cell Hgb 29.4 pg Normal 26.1-33.[address] [facility] Comment on above: Performed By: #### C HM7 #### [facility] (DEFAULT) [address] 18667 Mean Cell Hgb Conc 31.9 g/dL Normal 31.9-36.5 [facility] Comment on above: Performed By: #### Adonis HM7 #### [facility] (DEFAULT) [address] 6[address]86 Monocytes (Bld) [#/Vol] 0.75 10*3/uL Normal 0.24-0.[address] [facility] Comment on above: Performed By: #### Adonis HM7 #### [facility] (DEFAULT) [address] 10098 Monocytes/100 WBC (Bld) 8.6 % Normal [facility] Comment on above: Performed By: #### Adonis HM7 #### [facility] (DEFAULT) [address] 14583 Nucleated RBC 0.0 /100 WBC Normal <=0.2 [facility] Comment on above: Performed By: #### Adonis HM7 #### [facility] (DEFAULT) [address] 10929 Platelet mean volume (Bld) [Entitic vol] 11.0 fL Normal 8.7-12.[address] [facility] Comment on above: Performed By: #### C HM7 #### [facility] (DEFAULT) [address] 22532 Platelets (Bld) [#/Vol] 196 10*3/uL Normal 146-[address] [facility] Comment on above: Performed By: #### Adonis HM7 #### [facility] (DEFAULT) [address] 05349 RBC (Bld) [#/Vol] 4.25 10*6/uL Low 4.38-5.[address] [facility] Comment on above: Performed By: #### C HM7 #### [facility] (DEFAULT) [address] [place] [address] 42220 RBC Distribution 12.8 % Normal 10.9-14.3 [facility] Comment on above: Performed By: #### C HM7 #### [facility] (DEFAULT) [address] [place] [address] 74842 Segs + Bands Auto 69.8 % Normal [facility] Comment on above: Performed By: #### C HM7 #### [facility] (DEFAULT) [address] [place] [address] 36414 Segs + Bands,Absolute Auto 6.07 K/uL Normal 1.57-6.[address] [facility] Comment on above: Performed By: #### C HM7 #### [facility] (DEFAULT) [address] [place] [address] 16801 WBC (Bld) [#/Vol] 8.71 10*3/uL Normal 3.73-10.[address] [facility] Comment on above: Performed By: #### C HM7 #### [facility] (DEFAULT) [address] [place] [address] 89740 CHEM 7 (LYTES,BUN,CREA,GLUC) on 05-27-2021 Anion gap [Moles/Vol] 16 mmol/L Normal 7-[address] [facility] Comment on above: Performed By: #### X M #### [facility] (DEFAULT) [address] [place] [address] 95536 Chloride [Moles/Vol] 102 mmol/L Normal 98-[address] [facility] Comment on above: Performed By: #### X M #### [facility] (DEFAULT) [address] [place] [address] 05015 CO2 [Moles/Vol] 24 mmol/L Normal 22-30 [facility] Comment on above: Performed By: #### X M #### [facility] (DEFAULT) [address] [place] [address] 19802 Creatinine [Mass/Vol] 0.70 mg/dL Normal 0.70-1.[address] [facility] Comment on above: Performed By: #### X M #### [facility] (DEFAULT) [address] [place] [address] 13677 EST GFR, >=60 Normal >=[address] [facility] Comment on above: Performed By: #### X M #### [facility] (DEFAULT) [address] [place] [address] 42410 EST GFR,Non >=60 Normal >=[address] [facility] Comment on above: Performed By: #### X M #### [facility] (DEFAULT) [address] [place] [address] 40826 Glucose [Mass/Vol] 105 mg/dL High 70-99 [facility] Comment on above: Performed By: #### X M #### [facility] (DEFAULT) [address] [place] [address] 56162 Osmolality [Osmolality] 290 mosm/kg Normal 278-[address] [facility] Comment on above: Performed By: #### X M #### [facility] (DEFAULT) [address] [place] [address] 70780 Potassium [Moles/Vol] 4.2 mmol/L Normal 3.5-5.[address] [facility] Comment on above: Performed By: #### X M #### [facility] (DEFAULT) [address] [place] [address] 88223 Sodium [Moles/Vol] 138 mmol/L Normal 133-143 [facility] Comment on above: Performed By: #### X M #### [facility] (DEFAULT) [address] [place] [address] 31801 Urea nitrogen [Mass/Vol] 13 mg/dL Normal 7-[address] [facility] Comment on above: Performed By: #### X M #### [facility] (DEFAULT) [address] [place] [address] 80357 Urea nitrogen/Creatinine [Mass ratio] 19 mg/mg Normal [facility] Comment on above: Performed By: #### X M #### [facility] (DEFAULT) [address] [address] XR SPINE CERVICAL 2 VIEWSon 05-27-2021 XR SPINE CERVICAL 2 VIEWS EXAM: XR SPINE CERVICAL 2 VIEWS VIEWS , 05/27/2021 15:06 PM COMPARISON: MRI of the cervical spine May 24, 2021 CLINICAL INDICATIONS: acdf eval RELEVANT CLINICAL HISTORY: FINDINGS: 2 images obtained. 7 cervical type vertebral bodies. Prevertebral soft tissue swelling is evident. Status post ACDF C3-C5. Alignment is anatomic. Hardware is intact. IMPRESSION: Expected postoperative changes from ACDF C3-C5. No acute complication. Normal [facility] ABORH TYPE RECONFIRMATIONon 05-25-2021 ABO/RH(D) TYPE Positive Normal [facility] Comment on above: Performed By: #### T YPEC #### [facility] (DEFAULT) [address] [address] CBC AND ELECTRONIC DIFFon Basophils (Bld) [#/Vol] 0.05 10*3/uL Normal 0.00-0.[address] [facility] Comment on above: Performed By: #### X M #### [facility] (DEFAULT) [address] 55580 Basophils/100 WBC (Bld) 0.5 % Normal [facility] Comment on above: Performed By: #### X M #### [facility] (DEFAULT) [address] [address] DIFF STATUS Electronic Differential Normal [facility] Comment on above: Performed By: #### X M #### [facility] (DEFAULT) [address] [address]106 Eosinophils (Bld) [#/Vol] 0.23 10*3/uL Normal 0.00-0.[address] [facility] Comment on above: Performed By: #### X M #### [facility] (DEFAULT) [address] [place] [address] 75754 Eosinophils/100 WBC (Bld) 2.4 % Normal [facility] Comment on above: Performed By: #### X M #### [facility] (DEFAULT) [address] [place] [address] 70060 Hematocrit (Bld) [Volume fraction] 38.3 % Low 39.6-48.[address] [facility] Comment on above: Performed By: #### X M #### [facility] (DEFAULT) [address] [place] [address] 07892 Hemoglobin (Bld) [Mass/Vol] 12.3 g/dL Low 13.4-16.[address] [facility] Comment on above: Performed By: #### X M #### [facility] (DEFAULT) [address] [place] [address] 10650 Immature Grans % 0.2 % Normal [facility] Comment on above: Performed By: #### X M #### [facility] (DEFAULT) [address] [place] [address] 75976 Immature Grans Absolute <0.04 Normal <=0.[address] [facility] Comment on above: Performed By: #### X M #### [facility] (DEFAULT) [address] [place] [address] 47756 Lymphocytes (Bld) [#/Vol] 2.33 10*3/uL Normal 0.83-3.[address] [facility] Comment on above: Performed By: #### X M #### [facility] (DEFAULT) [address] 75648 Lymphocytes/100 WBC (Bld) 24.6 % Normal [facility] Comment on above: Performed By: #### X M #### [facility] (DEFAULT) [address] [place] [address] 61148 MCV (RBC) [Entitic vol] 92.1 fL Normal 79.0-94.[address] [facility] Comment on above: Performed By: #### X M #### [facility] (DEFAULT) [address] [place] [address] 74467 Mean Cell Hgb 29.6 pg Normal 26.1-33.[address] [facility] Comment on above: Performed By: #### X M #### [facility] (DEFAULT) [address] [place] [address] 67141 Mean Cell Hgb Conc 32.1 g/dL Normal 31.9-36.5 [facility] Comment on above: Performed By: #### X M #### [facility] (DEFAULT) [address] [place] [address] 83717 Monocytes (Bld) [#/Vol] 0.88 10*3/uL Normal 0.24-0.[address] [facility] Comment on above: Performed By: #### X M #### [facility] (DEFAULT) [address] [place] [address] 48157 Monocytes/100 WBC (Bld) 9.3 % Normal [facility] Comment on above: Performed By: #### X M #### [facility] (DEFAULT) [address] [place] [address] 71577 Nucleated RBC 0.0 /100 WBC Normal <=0.2 [facility] Comment on above: Performed By: #### X M #### [facility] (DEFAULT) [address] [place] [address] 64580 Platelet mean volume (Bld) [Entitic vol] 10.9 fL Normal 8.7-12.[address] [facility] Comment on above: Performed By: #### X M #### [facility] (DEFAULT) [address] [place] [address] 16553 Platelets (Bld) [#/Vol] 193 10*3/uL Normal 146-[address] [facility] Comment on above: Performed By: #### X M #### [facility] (DEFAULT) [address] [place] [address] 68664 RBC (Bld) [#/Vol] 4.16 10*6/uL Low 4.38-5.[address] [facility] Comment on above: Performed By: #### X M #### [facility] (DEFAULT) [address] [place] [address] 13006 RBC Distribution 13.0 % Normal 10.9-14.3 [facility] Comment on above: Performed By: #### X M #### [facility] (DEFAULT) [address] [place] [address] 56216 Segs + Bands Auto 63.0 % Normal [facility] Comment on above: Performed By: #### X M #### [facility] (DEFAULT) [address] [address] [address] Segs + Bands,Absolute Auto 5.96 K/uL Normal 1.57-6.[address] [facility] Comment on above: Performed By: #### X M #### [facility] (DEFAULT) [address] [place] [address] WBC (Bld) [#/Vol] 9.47 10*3/uL Normal 3.73-10.[address] [facility] Comment on above: Performed By: #### X M #### [facility] (DEFAULT) [address] [place] [address] CHEM 7 (LYTES,BUN,CREA,GLUC) on 05-25-2021 Anion gap [Moles/Vol] 12 mmol/L Normal 7-[address] [facility] Comment on above: Performed By: #### C HM7 #### [facility] (DEFAULT) [address] [place] [address] 69499 Chloride [Moles/Vol] 106 mmol/L Normal 98-[address] [facility] Comment on above: Performed By: #### C HM7 #### [facility] (DEFAULT) [address] [place] [address] 42368 CO2 [Moles/Vol] 25 mmol/L Normal 22-30 [facility] Comment on above: Performed By: #### C HM7 #### [facility] (DEFAULT) [address] [place] [address] 83727 Creatinine [Mass/Vol] 0.60 mg/dL Low 0.70-1.[address] [facility] Comment on above: Performed By: #### C HM7 #### [facility] (DEFAULT) [address] [place] [address] EST GFR, >=60 Normal >=[address] [facility] Comment on above: Performed By: #### C HM7 #### [facility] (DEFAULT) [address] [place] [address] EST GFR,Non >=60 Normal >=[address] [facility] Comment on above: Performed By: #### C HM7 #### [facility] (DEFAULT) [address] [place] [address] 49359 Glucose [Mass/Vol] 86 mg/dL Normal 70-99 [facility] Comment on above: Performed By: #### C HM7 #### [facility] (DEFAULT) [address] [place] [address] 28172 Osmolality [Osmolality] 290 mosm/kg Normal 278-[address] [facility] Comment on above: Performed By: #### C HM7 #### [facility] (DEFAULT) [address] [place] [address] 58455 Potassium [Moles/Vol] 4.5 mmol/L Normal 3.5-5.[address] [facility] Comment on above: Result Comment: Slig htly hemolyzed Performed By: #### C HM7 #### [facility] (DEFAULT) [address] [place] [address] 09475 Sodium [Moles/Vol] 138 mmol/L Normal 133-143 [facility] Comment on above: Performed By: #### C HM7 #### [facility] (DEFAULT) [address] [place] [address] 41429 Urea nitrogen [Mass/Vol] 16 mg/dL Normal 7-[address] [facility] Comment on above: Performed By: #### C HM7 #### [facility] (DEFAULT) [address] [place] [address] Urea nitrogen/Creatinine [Mass ratio] 27 mg/mg Normal [facility] Comment on above: Performed By: #### C HM7 #### [facility] (DEFAULT) [address] [place] [address] [facility] SPINE CERVICAL WITHOUT CONTRAST EXAM: MRI SPINE CERVICAL WITHOUT CONTRAST, 05/24/2021 23:02 PM COMPARISON: No prior studies available for comparison. CLINICAL INDICATIONS: 61 years Male Spinal stenosis, C-spine; known C4-C5 cord compression with cord abnormality on outside MRI. RELEVANT CLINICAL HISTORY: TECHNIQUE: A series of sagittal and axial multisequence images of the cervical spine were obtained without intravenous contrast using standard protocol. FINDINGS: Motion degraded evaluation, particularly the axial sequences. Multiple repeats were attempted. There is straightening of the cervical lordosis which may be positional. Trace anterolisthesis of C5 on C6. The cervical vertebral bodies are maintained in height. There is no marrow edema. There is facet pillar and pedicle edema on the right is into the right C3-C4 facet which appears to be reactive to advanced degenerative changes. Prevertebral and paraspinal soft tissues are grossly within normal limits aside from mild soft tissue inflammation surrounding the right C3-C4 facet. Multilevel degenerative disc changes are present with prominent posterior disc osteophyte complexes at C3-C4 and C4-C5. There is cord deformity and cord signal abnormality at C4-C5 and to a lesser degree C3-C4. This may be acute on chronic as there is likely a component of myelomalacia, particularly at C4-C5. Craniocervical junction and visualized posterior fossa are within normal limits. By levels: C1-C2: Atlanto-axial relationship is within normal limits. C2-C3: No significant disc herniation or canal stenosis. Marked facet arthrosis with moderate bilateral neuroforaminal stenosis. C3-C4: Posterior osteophyte complex and ligamentous infolding with moderate to severe spinal canal stenosis and moderate to severe bilateral neuroforaminal stenosis. C4-C5: Large posterior disc osteophyte complex and ligamentous infolding with severe spinal canal and severe bilateral neuroforaminal stenosis. C5-C6: No significant disc herniation. Bilateral facet arthrosis and ligamentous infolding is present. Mild spinal canal stenosis and severe bilateral neuroforaminal stenosis. C6-C7: A central disc protrusion without significant canal stenosis moderate left and moderate to severe right neuroforaminal narrowing C7-T1: No disc herniation, cervical stenosis, or foraminal stenosis. IMPRESSION: 1. Multilevel degenerative disc changes with severe spinal canal stenosis at C4-C5 with resulting cord compression and likely acute on chronic cord signal abnormalities. 2. Extensive multilevel, severe neuroforaminal stenosis as described above. 3. Asymmetric degenerative changes at the right C3-C4 articular facet with edema in the adjacent osseous structures. Normal [facility] TYPE AND SCREENon 05-25-2021 ABO/RH(D) TYPE Positive Normal [facility] Comment on above: Performed By: #### X M #### [facility] (DEFAULT) [address] [address] CBC AND ELECTRONIC DIFFon Basophils (Bld) [#/Vol] 0.06 10*3/uL Normal 0.00-0.[address] [facility] Comment on above: Performed By: #### X M #### [facility] (DEFAULT) [address] [address] Basophils/100 WBC (Bld) 0.7 % Normal [facility] Comment on above: Performed By: #### X M #### [facility] (DEFAULT) [address] [address] DIFF STATUS Electronic Differential Normal [facility] Comment on above: Performed By: #### X M #### [facility] (DEFAULT) [address] [address] Eosinophils (Bld) [#/Vol] 0.33 10*3/uL Normal 0.00-0.[address] [facility] Comment on above: Performed By: #### X M #### [facility] (DEFAULT) [address] [place] [address]892 Eosinophils/100 WBC (Bld) 3.9 % Normal [facility] Comment on above: Performed By: #### X M #### [facility] (DEFAULT) [address] [address] Hematocrit (Bld) [Volume fraction] 38.4 % Low 39.6-48.[address] [facility] Comment on above: Performed By: #### X M #### [facility] (DEFAULT) [address] [place] [address] Hemoglobin (Bld) [Mass/Vol] 12.3 g/dL Low 13.4-16.[address] [facility] Comment on above: Performed By: #### X M #### [facility] (DEFAULT) [address] [address] Immature Grans % 0.5 % Normal [facility] Comment on above: Performed By: #### X M #### [facility] (DEFAULT) [address] [address] Immature Grans Absolute 0.04 K/uL Normal <=0.[address] [facility] Comment on above: Performed By: #### X M #### [facility] (DEFAULT) [address] [address] Lymphocytes (Bld) [#/Vol] 2.56 10*3/uL Normal 0.83-3.[address] [facility] Comment on above: Performed By: #### X M #### [facility] (DEFAULT) [address] [address] Lymphocytes/100 WBC (Bld) 29.9 % Normal [facility] Comment on above: Performed By: #### X M #### [facility] (DEFAULT) [address] [address] MCV (RBC) [Entitic vol] 93.2 fL Normal 79.0-94.[address] [facility] Comment on above: Performed By: #### X M #### [facility] (DEFAULT) [address] [place] [address] 24255 Mean Cell Hgb 29.9 pg Normal 26.1-33.[address] [facility] Comment on above: Performed By: #### X M #### [facility] (DEFAULT) [address] [place] [address] 62259 Mean Cell Hgb Conc 32.0 g/dL Normal 31.9-36.5 [facility] Comment on above: Performed By: #### X M #### [facility] (DEFAULT) [address] [place] [address] 11573 Monocytes (Bld) [#/Vol] 0.94 10*3/uL High 0.24-0.[address] [facility] Comment on above: Performed By: #### X M #### [facility] (DEFAULT) [address] [place] [address] Monocytes/100 WBC (Bld) 11.0 % Normal [facility] Comment on above: Performed By: #### X M #### [facility] (DEFAULT) [address] [place] [address] 92296 Nucleated RBC 0.0 /100 WBC Normal <=0.2 [facility] Comment on above: Performed By: #### X M #### [facility] (DEFAULT) [address] [place] [address]31 Platelet mean volume (Bld) [Entitic vol] 10.8 fL Normal 8.7-12.[address] [facility] Comment on above: Performed By: #### X M #### [facility] (DEFAULT) [address] [place] [address]14 Platelets (Bld) [#/Vol] 181 10*3/uL Normal 146-[address] [facility] Comment on above: Performed By: #### X M #### [facility] (DEFAULT) [address] [place] [address]88 RBC (Bld) [#/Vol] 4.12 10*6/uL Low 4.38-5.[address] [facility] Comment on above: Performed By: #### X M #### [facility] (DEFAULT) [address] [place] [address] 06712 RBC Distribution 13.8 % Normal 10.9-14.3 [facility] Comment on above: Performed By: #### X M #### [facility] (DEFAULT) [address] [place] [address] Segs + Bands Auto 54.0 % Normal [facility] Comment on above: Performed By: #### X M #### [facility] (DEFAULT) [address] [place] [address] Segs + Bands,Absolute Auto 4.62 K/uL Normal 1.57-6.[address] [facility] Comment on above: Performed By: #### X M #### [facility] (DEFAULT) [address] [place] [address] 94219 WBC (Bld) [#/Vol] 8.55 10*3/uL Normal 3.73-10.[address] [facility] Comment on above: Performed By: #### X M #### [facility] (DEFAULT) [address] [address] CHEM 7 (LYTES,BUN,CREA,GLUC) on 05-24-2021 Anion gap [Moles/Vol] 12 mmol/L Normal 7-[address] [facility] Comment on above: Performed By: #### X M #### [facility] (DEFAULT) [address] [place] [address]79 Chloride [Moles/Vol] 107 mmol/L Normal 98-[address] [facility] Comment on above: Performed By: #### X M #### [facility] (DEFAULT) [address] [place] [address] 89773 CO2 [Moles/Vol] 26 mmol/L Normal 22-30 [facility] Comment on above: Performed By: #### X M #### [facility] (DEFAULT) [address] [address] Creatinine [Mass/Vol] 0.69 mg/dL Low 0.70-1.[address] [facility] Comment on above: Performed By: #### X M #### [facility] (DEFAULT) [address] [address] EST GFR, >=60 Normal >=[address] [facility] Comment on above: Performed By: #### X M #### [facility] (DEFAULT) [address] [address] EST GFR,Non >=60 Normal >=[address] [facility] Comment on above: Performed By: #### X M #### [facility] (DEFAULT) [address] [address] Glucose [Mass/Vol] 90 mg/dL Normal 70-99 [facility] Comment on above: Performed By: #### X M #### [facility] (DEFAULT) [address] [address] Osmolality [Osmolality] 298 mosm/kg Normal 278-[address] [facility] Comment on above: Performed By: #### X M #### [facility] (DEFAULT) [address] [address] Potassium [Moles/Vol] 4.4 mmol/L Normal 3.5-5.[address] [facility] Comment on above: Performed By: #### X M #### [facility] (DEFAULT) [address] [address] Sodium [Moles/Vol] 141 mmol/L Normal 133-143 [facility] Comment on above: Performed By: #### X M #### [facility] (DEFAULT) [address] [address] Urea nitrogen [Mass/Vol] 23 mg/dL High 7-[address] [facility] Comment on above: Performed By: #### X M #### [facility] (DEFAULT) [address] [address] Urea nitrogen/Creatinine [Mass ratio] 33 mg/mg Normal [facility] Comment on above: Performed By: #### X M #### [facility] (DEFAULT) [address] [place] [address] HEMOGLOBIN A1Con 05-24-2021 Glucose [Mass/Vol] 120 mg/dL Normal [facility] Comment on above: Performed By: #### L ABCOR10 #### [facility] (DEFAULT) [address] [place] [address]85 HbA1c (Bld) [Mass fraction] 5.8 % High 4.7-5.[address] [facility] Comment on above: Performed By: #### L [id number] #### [facility] (DEFAULT) [address] [place] [address] CBC AND ELECTRONIC DIFFon Basophils (Bld) [#/Vol] 0.07 10*3/uL Normal 0.00-0.[address] [facility] Comment on above: Performed By: #### X M #### [facility] (DEFAULT) [address] [place] [address] 94584 Basophils/100 WBC (Bld) 0.6 % Normal [facility] Comment on above: Performed By: #### X M #### [facility] (DEFAULT) [address] [place] [address] 34097 DIFF STATUS Electronic Differential Normal [facility] Comment on above: Performed By: #### X M #### [facility] (DEFAULT) [address] [place] [address] Eosinophils (Bld) [#/Vol] 0.21 10*3/uL Normal 0.00-0.[address] [facility] Comment on above: Performed By: #### X M #### [facility] (DEFAULT) [address] [place] [address] 24826 Eosinophils/100 WBC (Bld) 1.8 % Normal [facility] Comment on above: Performed By: #### X M #### [facility] (DEFAULT) [address] [place] [address] 14305 Hematocrit (Bld) [Volume fraction] 47.2 % Normal 39.6-48.[address] [facility] Comment on above: Performed By: #### X M #### [facility] (DEFAULT) [address] [place] [address] 06892 Hemoglobin (Bld) [Mass/Vol] 14.5 g/dL Normal 13.4-16.[address] [facility] Comment on above: Performed By: #### X M #### [facility] (DEFAULT) [address] [address] Immature Grans % 0.4 % Normal [facility] Comment on above: Performed By: #### X M #### [facility] (DEFAULT) [address] [place] [address]238 Immature Grans Absolute 0.05 K/uL Normal <=0.[address] [facility] Comment on above: Performed By: #### X M #### [facility] (DEFAULT) [address] [place] [address]57 Lymphocytes (Bld) [#/Vol] 2.24 10*3/uL Normal 0.83-3.[address] [facility] Comment on above: Performed By: #### X M #### [facility] (DEFAULT) [address] [place] [address] 08501 Lymphocytes/100 WBC (Bld) 19.2 % Normal [facility] Comment on above: Performed By: #### X M #### [facility] (DEFAULT) [address] [address] MCV (RBC) [Entitic vol] 94.8 fL High 79.0-94.[address] [facility] Comment on above: Performed By: #### X M #### [facility] (DEFAULT) [address] [place] [address] 98662 Mean Cell Hgb 29.1 pg Normal 26.1-33.[address] [facility] Comment on above: Performed By: #### X M #### [facility] (DEFAULT) [address] [address] Mean Cell Hgb Conc 30.7 g/dL Low 31.9-36.5 [facility] Comment on above: Performed By: #### X M #### [facility] (DEFAULT) [address] [address] Monocytes (Bld) [#/Vol] 1.22 10*3/uL High 0.24-0.[address] [facility] Comment on above: Performed By: #### X M #### [facility] (DEFAULT) [address] [address] Monocytes/100 WBC (Bld) 10.5 % Normal [facility] Comment on above: Performed By: #### X M #### [facility] (DEFAULT) [address] [address] Nucleated RBC 0.0 /100 WBC Normal <=0.2 [facility] Comment on above: Performed By: #### X M #### [facility] (DEFAULT) [address] [address] Platelet mean volume (Bld) [Entitic vol] 10.8 fL Normal 8.7-12.[address] [facility] Comment on above: Performed By: #### X M #### [facility] (DEFAULT) [address] [address] Platelets (Bld) [#/Vol] 234 10*3/uL Normal 146-[address] [facility] Comment on above: Performed By: #### X M #### [facility] (DEFAULT) [address] [address] RBC (Bld) [#/Vol] 4.98 10*6/uL Normal 4.38-5.[address] [facility] Comment on above: Performed By: #### X M #### [facility] (DEFAULT) [address] [place] [address] RBC Distribution 14.1 % Normal 10.9-14.3 [facility] Comment on above: Performed By: #### X M #### [facility] (DEFAULT) [address] [place] [address] Segs + Bands Auto 67.5 % Normal [facility] Comment on above: Performed By: #### X M #### [facility] (DEFAULT) [address] [place] [address] Segs + Bands,Absolute Auto 7.87 K/uL High 1.57-6.[address] [facility] Comment on above: Performed By: #### X M #### [facility] (DEFAULT) [address] [place] [address] 89346 WBC (Bld) [#/Vol] 11.66 10*3/uL High 3.73-10.[address] [facility] Comment on above: Performed By: #### X M #### [facility] (DEFAULT) [address] [place] [address] CHEM 7 (LYTES,BUN,CREA,GLUC) on 05-23-2021 Anion gap [Moles/Vol] 20 mmol/L High 7-[address] [facility] Comment on above: Performed By: #### L [id number] #### [facility] (DEFAULT) [address] [place] [address] 46067 Chloride [Moles/Vol] 107 mmol/L Normal 98-[address] [facility] Comment on above: Performed By: #### L [id number] #### [facility] (DEFAULT) [address] [place] [address] 60686 CO2 [Moles/Vol] 17 mmol/L Low 22-30 [facility] Comment on above: Performed By: #### L [id number] #### [facility] (DEFAULT) [address] [place] [address] 31559 Creatinine [Mass/Vol] 0.75 mg/dL Normal 0.70-1.[address] [facility] Comment on above: Performed By: #### L [id number] #### [facility] (DEFAULT) [address] [place] [address] EST GFR, >=60 Normal >=[address] [facility] Comment on above: Performed By: #### L [id number] #### [facility] (DEFAULT) [address] [place] [address]45[address] EST GFR,Non >=60 Normal >=[address] [facility] Comment on above: Performed By: #### L [id number] #### [facility] (DEFAULT) [address] [place] [address] 04536 Glucose [Mass/Vol] 121 mg/dL High 70-99 [facility] Comment on above: Performed By: #### L [id number] #### [facility] (DEFAULT) [address] [place] [address] 47621 Osmolality [Osmolality] 298 mosm/kg Normal 278-[address] [facility] Comment on above: Performed By: #### L [id number] #### [facility] (DEFAULT) [address] [place] [address]1660 Potassium [Moles/Vol] 4.3 mmol/L Normal 3.5-5.[address] [facility] Comment on above: Performed By: #### L [id number] #### [facility] (DEFAULT) [address] [place] [address] 45928 Sodium [Moles/Vol] 140 mmol/L Normal 133-143 [facility] Comment on above: Performed By: #### L [id number] #### [facility] (DEFAULT) [address] [place] [address] 90498 Urea nitrogen [Mass/Vol] 22 mg/dL Normal 7-[address] [facility] Comment on above: Performed By: #### L [id number] #### [facility] (DEFAULT) [address] [place] [address] 38986 Urea nitrogen/Creatinine [Mass ratio] 29 mg/mg Normal [facility] Comment on above: Performed By: #### L [id number] #### [facility] (DEFAULT) [address] [place] [address] 86680 XR CHEST PORTABLEon 05-23-20 XR CHEST PORTABLE EXAM: XR CHEST PORTABLE, 05/23/2021 15:53 PM COMPARISON: No prior studies available for comparison. CLINICAL INDICATIONS: Pre-operative evaluation RELEVANT CLINICAL HISTORY: FINDINGS: (Adequate technique) Tubes, Lines, and life support hardware: None. Lungs: There are shallow lung volumes and associated vascular crowding. There are patchy opacities present at both lung bases, typical of passive atelectasis. There are no pleural effusions. There is no pneumothorax. Cardiac, mediastinum, and hilum: The cardiomediastinal silhouette is within normal limits. ... Pulmonary Vessels: Normal, without PVH Bones, chest wall, and soft tissues: Healed fractures of the posterolateral aspects of the right fourth and fifth ribs. Impression: 1. Shallow lung volumes and associated vascular crowding. 2. Associated bibasilar atelectasis. Normal [facility] CALCIUMon 05-22-2021 Calcium [Mass/Vol] 9.0 mg/dL Normal 8.6-10.5 [facility] Comment on above: Performed By: #### C HM7 #### [facility] (DEFAULT) [address] [place] [address]8417 CBC AND ELECTRONIC DIFFon Basophils (Bld) [#/Vol] 0.07 10*3/uL Normal 0.00-0.[address] [facility] Comment on above: Performed By: #### L [id number] #### [facility] (DEFAULT) [address] [place] [address] 53972 Basophils/100 WBC (Bld) 0.5 % Normal [facility] Comment on above: Performed By: #### L [id number] #### [facility] (DEFAULT) [address] [place] [address]273 DIFF STATUS Electronic Differential Normal [facility] Comment on above: Performed By: #### L [id number] #### [facility] (DEFAULT) [address] [address] Eosinophils (Bld) [#/Vol] 0.18 10*3/uL Normal 0.00-0.[address] [facility] Comment on above: Performed By: #### L [id number] #### [facility] (DEFAULT) [address] [address] Eosinophils/100 WBC (Bld) 1.3 % Normal [facility] Comment on above: Performed By: #### L [id number] #### [facility] (DEFAULT) [address] [address] Hematocrit (Bld) [Volume fraction] 48.0 % Normal 39.6-48.[address] [facility] Comment on above: Performed By: #### L [id number] #### [facility] (DEFAULT) [address] [address] Hemoglobin (Bld) [Mass/Vol] 15.8 g/dL Normal 13.4-16.[address] [facility] Comment on above: Performed By: #### L [id number] #### [facility] (DEFAULT) [address] [address] Immature Grans % 0.4 % Normal [facility] Comment on above: Performed By: #### L [id number] #### [facility] (DEFAULT) [address] [address] Immature Grans Absolute 0.06 K/uL Normal <=0.[address] [facility] Comment on above: Performed By: #### L [id number] #### [facility] (DEFAULT) [address] [address] Lymphocytes (Bld) [#/Vol] 2.64 10*3/uL Normal 0.83-3.[address] [facility] Comment on above: Performed By: #### L [id number] #### [facility] (DEFAULT) [address] [place] [address]93 Lymphocytes/100 WBC (Bld) 18.5 % Normal [facility] Comment on above: Performed By: #### L [id number] #### [facility] (DEFAULT) [address] [place] [address] MCV (RBC) [Entitic vol] 90.9 fL Normal 79.0-94.[address] [facility] Comment on above: Performed By: #### L [id number] #### [facility] (DEFAULT) [address] [place] [address] Mean Cell Hgb 29.9 pg Normal 26.1-33.[address] [facility] Comment on above: Performed By: #### L [id number] #### [facility] (DEFAULT) [address] [address] Mean Cell Hgb Conc 32.9 g/dL Normal 31.9-36.5 [facility] Comment on above: Performed By: #### L [id number] #### [facility] (DEFAULT) [address] [place] [address]250 Monocytes (Bld) [#/Vol] 1.66 10*3/uL High 0.24-0.[address] [facility] Comment on above: Performed By: #### L [id number] #### [facility] (DEFAULT) [address] [address] Monocytes/100 WBC (Bld) 11.6 % Normal [facility] Comment on above: Performed By: #### L [id number] #### [facility] (DEFAULT) [address] [address] Nucleated RBC 0.0 /100 WBC Normal <=0.2 [facility] Comment on above: Performed By: #### L [id number] #### [facility] (DEFAULT) [address] [place] [address] 29929 Platelet mean volume (Bld) [Entitic vol] 10.9 fL Normal 8.7-12.[address] [facility] Comment on above: Performed By: #### L [id number] #### [facility] (DEFAULT) [address] [place] [address] 47868 Platelets (Bld) [#/Vol] 258 10*3/uL Normal 146-[address] [facility] Comment on above: Performed By: #### L [id number] #### [facility] (DEFAULT) [address] [place] [address] 29031 RBC (Bld) [#/Vol] 5.28 10*6/uL Normal 4.38-5.[address] [facility] Comment on above: Performed By: #### L [id number] #### [facility] (DEFAULT) [address] [place] [address] 75173 RBC Distribution 14.0 % Normal 10.9-14.3 [facility] Comment on above: Performed By: #### L [id number] #### [facility] (DEFAULT) [address] [place] [address] 10461 Segs + Bands Auto 67.7 % Normal [facility] Comment on above: Performed By: #### L [id number] #### [facility] (DEFAULT) [address] [place] [address]295 Segs + Bands,Absolute Auto 9.68 K/uL High 1.57-6.[address] [facility] Comment on above: Performed By: #### L [id number] #### [facility] (DEFAULT) [address] [place] [address]12 WBC (Bld) [#/Vol] 14.29 10*3/uL High 3.73-10.[address] [facility] Comment on above: Performed By: #### L [id number] #### [facility] (DEFAULT) [address] [place] [address] 48820 CHEM 7 (LYTES,BUN,CREA,GLUC) on 05-22-2021 Anion gap [Moles/Vol] 18 mmol/L High 7-[address] [facility] Comment on above: Performed By: #### C HM7 #### [facility] (DEFAULT) [address] [place] [address]141 Chloride [Moles/Vol] 106 mmol/L Normal 98-[address] [facility] Comment on above: Performed By: #### C HM7 #### [facility] (DEFAULT) [address] [place] [address] 34542 CO2 [Moles/Vol] 20 mmol/L Low 22-30 [facility] Comment on above: Performed By: #### C HM7 #### [facility] (DEFAULT) [address] [place] [address] 78085 Creatinine [Mass/Vol] 0.74 mg/dL Normal 0.70-1.[address] [facility] Comment on above: Performed By: #### C HM7 #### [facility] (DEFAULT) [address] [place] [address] 40610 EST GFR, >=60 Normal >=[address] [facility] Comment on above: Performed By: #### C HM7 #### [facility] (DEFAULT) [address] [place] [address] 97387 EST GFR,Non >=60 Normal >=[address] [facility] Comment on above: Performed By: #### C HM7 #### [facility] (DEFAULT) [address] [place] [address] 74469 Glucose [Mass/Vol] 122 mg/dL High 70-99 [facility] Comment on above: Performed By: #### C HM7 #### [facility] (DEFAULT) [address] [place] [address] 09952 Osmolality [Osmolality] 297 mosm/kg Normal 278-[address] [facility] Comment on above: Performed By: #### C HM7 #### [facility] (DEFAULT) [address] [place] [address] 16633 Potassium [Moles/Vol] 4.5 mmol/L Normal 3.5-5.[address] [facility] Comment on above: Performed By: #### C HM7 #### [facility] (DEFAULT) [address] [address] Sodium [Moles/Vol] 139 mmol/L Normal 133-143 [facility] Comment on above: Performed By: #### C HM7 #### [facility] (DEFAULT) [address] [address] Urea nitrogen [Mass/Vol] 22 mg/dL Normal 7-[address] [facility] Comment on above: Performed By: #### C HM7 #### [facility] (DEFAULT) [address] [address] Urea nitrogen/Creatinine [Mass ratio] 30 mg/mg Normal [facility] Comment on above: Performed By: #### C HM7 #### [facility] (DEFAULT) [address] [address] Complete Blood Count with Au to Diffon 05-22-2021 BASO# BASO#: 0.0 Normal 0.0-0.1 [facility] Comment on above: Performed By: #### C MP, MG #### [place] [address] Ph. [phone] BASO% BASO%: 0 Normal 0-1 [facility] Comment on above: Performed By: #### C MP, MG #### [place] [address] Ph. [phone] Eosinophils (Bld) [#/Vol] 0.1 10*3/uL Normal 0.0-0.5 [facility] Comment on above: Performed By: #### C MP, MG #### [place] [address] Ph. [phone] Eosinophils/100 WBC (Bld) 1 % Normal 0-5 [facility] Comment on above: Performed By: #### C MP, MG #### [place] [address] Ph. [phone] Erythrocyte distribution width (RBC) [Ratio] 13.6 % Normal 11.5-14.5 [facility] Comment on above: Performed By: #### C MP, MG #### [place] [address] Ph. [phone] Hematocrit (Bld) [Volume fraction] 47.4 % Normal 42.0-52.0 [facility] Comment on above: Performed By: #### C MP, MG #### [place] [address] Ph. [phone] Hemoglobin (Bld) [Mass/Vol] 15.7 g/dL Normal 13.5-17.5 [facility] Comment on above: Performed By: #### C MP, MG #### [place] [address] Ph. [phone] Lymphocytes (Bld) [#/Vol] 2.6 10*3/uL Normal 1.0-4.0 [facility] Comment on above: Performed By: #### C MP, MG #### [place] [address] Ph. [phone] Lymphocytes/100 WBC (Bld) 19 % Low 20-40 [facility] Comment on above: Performed By: #### C MP, MG #### [place] [address] Ph. [phone] MCH (RBC) [Entitic mass] 29.5 pg Normal 27.0-35.0 [facility] Comment on above: Performed By: #### C MP, MG #### [place] [address] Ph. [phone] MCHC (RBC) [Mass/Vol] 33.1 g/dL Normal 32.0-36.0 [facility] Comment on above: Performed By: #### C MP, MG #### [place] [address] Ph. [phone] MCV (RBC) [Entitic vol] 89 fL Normal 80-100 [facility] Comment on above: Performed By: #### C MP, MG #### [address] [address] Ph. [phone] Monocytes (Bld) [#/Vol] 1.7 10*3/uL High 0.3-1.0 [facility] Comment on above: Performed By: #### C MP, MG #### [place] [address] Ph. [phone] Monocytes/100 WBC (Bld) 12 % Normal 1-15 [facility] Comment on above: Performed By: #### C MP, MG #### [place] [address] Ph. [phone] Neutrophils (Bld) [#/Vol] 9.1 10*3/uL High 1.8-7.7 [facility] Comment on above: Performed By: #### C MP, MG #### [place] [address] Ph. [phone] Neutrophils/100 WBC (Bld) 68 % Normal 50-70 [facility] Comment on above: Performed By: #### C MP, MG #### [place] [address] Ph. [phone] Platelet mean volume (Bld) [Entitic vol] 10.9 fL Normal 9.4-12.3 [facility] Comment on above: Performed By: #### C MP, MG #### [address] [address] Ph. [phone] Platelets (Bld) [#/Vol] 277 10*3/uL Normal 150-450 [facility] Comment on above: Performed By: #### C MP, MG #### [address] [place] [address] Ph. [phone] RBC (Bld) [#/Vol] 5.33 10*6/uL Normal 4.70-6.10 [facility] Comment on above: Performed By: #### C MP, MG #### [address] [address] Ph. [phone] WBC (Bld) [#/Vol] 13.5 10*3/uL High 3.7-11.0 [facility] Comment on above: Performed By: #### C MP, MG #### [place] [address] Ph. [phone] Comprehensive Metabolic Pane adan 05-22-2021 Albumin [Mass/Vol] 4.3 g/dL Normal 3.5-5.0 [facility] Comment on above: Performed By: #### C MP, MG #### [place] [address] Ph. [phone] ALP [Catalytic activity/Vol] 145 U/L High 38-126 [facility] Comment on above: Performed By: #### C MP, MG #### [address] [address] Ph. [phone] ALT [Catalytic activity/Vol] 50 U/L Normal 0-50 [facility] Comment on above: Performed By: #### C MP, MG #### [place] [address]851 Ph. [phone] AST [Catalytic activity/Vol] 42 U/L Normal 17-59 [facility] Comment on above: Performed By: #### C MP, MG #### [place] [address]851 Ph. [phone] Bilirubin [Mass/Vol] 0.5 mg/dL Normal 0.2-1.3 [facility] Comment on above: Performed By: #### C MP, MG #### [place] [address]851 Ph. [phone] Calcium [Mass/Vol] 9.6 mg/dL Normal 8.4-10.2 [facility] Comment on above: Performed By: #### C MP, MG #### [place] [address]851 Ph. [phone] Chloride [Moles/Vol] 102 mmol/L Normal 98-107 [facility] Comment on above: Performed By: #### C MP, MG #### [place] [address] Ph. [phone] CO2 [Moles/Vol] 24 mmol/L Normal 22-32 [facility] Comment on above: Performed By: #### C MP, MG #### [place] [address] Ph. [phone] Creatinine [Mass/Vol] 0.71 mg/dL Normal 0.66-1.25 [facility] Comment on above: Performed By: #### C MP, MG #### [place] [address] Ph. [phone] GFR/1.73 sq M.predicted among non-blacks MDRD (S/P/Bld) [Vol rate/Area] 101 mL/min/{1.73_m2} Normal >60 [facility] Comment on above: Result Comment: Stag e 1 Kidney damage (e.g., protein in the urine) with normal GFR >=90\X0D0A\Stage 2 Kidney damage with mild decrease in GFR 60-89\X0D0A\Stage 3a Moderate decrease in GFR 45-59\X0D0A\Stage 3b Moderate decrease in GFR 30-44\X0D0A\Stage 4 Severe reduction in GFR 15-29\X0D0A\Stage 5 Kidney failure <15 Performed By: #### C MP, MG #### [place] [address] Ph. [phone] Glucose [Mass/Vol] 136 mg/dL High 65-100 [facility] Comment on above: Performed By: #### C MP, MG #### [address] [address] Ph. [phone] Potassium [Moles/Vol] 4.3 mmol/L Normal 3.6-5.0 [facility] Comment on above: Performed By: #### C MP, MG #### [place] [address] Ph. [phone] Protein [Mass/Vol] 8.0 g/dL Normal 6.3-8.2 [facility] Comment on above: Performed By: #### C MP, MG #### [place] [address] Ph. [phone] Sodium [Moles/Vol] 140 mmol/L Normal 135-145 [facility] Comment on above: Performed By: #### C MP, MG #### [address] [address] Ph. [phone] Urea nitrogen [Mass/Vol] 18 mg/dL Normal 9-20 [facility] Comment on above: Performed By: #### C MP, MG #### [place] [address] Ph. [phone] MAGNESIUMon 05-22-2021 Magnesium [Mass/Vol] 2.4 mg/dL Normal 1.6-2.[address] [facility] Comment on above: Performed By: #### C HM7 #### [facility] (DEFAULT) [address] [address] Magnesiumon 05-22-2021 Magnesium [Mass/Vol] 2.2 mg/dL Normal 1.6-2.3 [facility] Comment on above: Performed By: #### C MP, MG #### [place] [address]851 Ph. [phone] NOVEL CORONAVIRUS PCRon 10-0 SARS-CoV-2 (COVID-19) RNA ROSIO+probe Ql (Unsp spec) Not detected Normal NOT DETECTED [facility] Comment on above: Order Comment: Viral transport media (credit report checker with pink fluid) or BAL specimen - Collection must be done while wearing N-95 mask, eye protection, gown and gloves. Please label ALL specimens as 2019-nCoV rule out and deliver by hand. This test was performed using real time PCR and has been approved for the qualitative detection of SARS-CoV-2 nucleic acid. The test has been authorized by the FDA under an emergency use authorization for use by authorized laboratories. Result Comment: [facility] Negative results do not preclude SARS-CoV-2 infection and should not be used as the sole basis for treatment or other patient management decisions. Optimum specimen types and timing for peak viral levels during infections caused by SARS-CoV-2 has not been determined. The possibility of a false negative result should especially be considered if the patient's recent exposures or clinical presentation suggest that SARS-CoV-2 infection is probable, and diagnostic tests for other causes of illness (e.g., other respiratory illness) are negative. Collection of a new specimen and re-testing may be necessary if the patient is critically ill or clinically deteriorating. Performed By: #### L [id number] #### [facility] (DEFAULT) [address] [address] PHOSPHATE, INORGANICon 05-22 Phosphorous 4.2 mg/dL Normal 2.2-4.[address] [facility] Comment on above: Performed By: #### C HM7 #### [facility] (DEFAULT) [address] [address] PT,INR,PTTon 05-22-2021 aPTT Coag (Bld) [Time] 26.2 s Normal 24.0-34.[address] [facility] Comment on above: Performed By: #### P TPTT #### [facility] (DEFAULT) [address] [place] [address] INR Coag (PPP) [Relative time] 1.0 {INR} Normal 0.9-1.[address] [facility] Comment on above: Performed By: #### P TPTT #### [facility] (DEFAULT) [address] [address] PT Coag (PPP) [Time] 13.5 s Normal 11.9-14.[address] [facility] Comment on above: Performed By: #### P TPTT #### [facility] (DEFAULT) [address] [address] SCREEN: MRSA/MSSAon 05-22-20 Methicillin Resistant S. Aureus By Pcr Negative Normal Negative [facility] Comment on above: Order Comment: Viral transport media (credit report checker with pink fluid) or BAL specimen - Collection must be done while wearing N-95 mask, eye protection, gown and gloves. Please label ALL specimens as 2019-nCoV rule out and deliver by hand. This test was performed using real time PCR and has been approved for the qualitative detection of SARS-CoV-2 nucleic acid. The test has been authorized by the FDA under an emergency use authorization for use by authorized laboratories. Performed By: #### L [id number] #### [facility] (DEFAULT) [address] [place] [address] Staphylococcus Aureus By Pcr Negative Normal Negative [facility] Comment on above: Order Comment: Viral transport media (credit report checker with pink fluid) or BAL specimen - Collection must be done while wearing N-95 mask, eye protection, gown and gloves. Please label ALL specimens as 2019-nCoV rule out and deliver by hand. This test was performed using real time PCR and has been approved for the qualitative detection of SARS-CoV-2 nucleic acid. The test has been authorized by the FDA under an emergency use authorization for use by authorized laboratories. Performed By: #### L [id number] #### [facility] (DEFAULT) [address] [place] [address] URINALYSIS REFLEX TO CULTURE PERFORMABLEon 05-22-2021 Appearance (U) Clear Normal Clear [facility] Comment on above: Order Comment: For i ndwelling catheters, specimen collection is acceptable on catheter day 1 and 2 only. ? Performed By: #### U [id number] #### [facility] (DEFAULT) [address] [place] [address] Bacteria ABSENT Normal ABSENT [facility] Comment on above: Order Comment: For i ndwelling catheters, specimen collection is acceptable on catheter day 1 and 2 only. ? Performed By: #### U [id number] #### [facility] (DEFAULT) [address] [place] [address] Blood Urine Negative Normal Negative [facility] Comment on above: Order Comment: For i ndwelling catheters, specimen collection is acceptable on catheter day 1 and 2 only. ? Performed By: #### U [id number] #### [facility] (DEFAULT) [address] [place] [address] Color (U) Yellow Normal Yellow [facility] Comment on above: Order Comment: For i ndwelling catheters, specimen collection is acceptable on catheter day 1 and 2 only. ? Performed By: #### U [id number] #### [facility] (DEFAULT) [address] [place] [address] Glucose Ql (U) Negative Normal Negative [facility] Comment on above: Order Comment: For i ndwelling catheters, specimen collection is acceptable on catheter day 1 and 2 only. ? Performed By: #### U [id number] #### [facility] (DEFAULT) [address] [place] [address] Ketones Ql (U) Negative Normal Negative [facility] Comment on above: Order Comment: For i ndwelling catheters, specimen collection is acceptable on catheter day 1 and 2 only. ? Performed By: #### U [id number] #### [facility] (DEFAULT) [address] [place] [address] Leukocyte esterase Test strip Ql (U) Trace Abnormal Negative [facility] Comment on above: Order Comment: For i ndwelling catheters, specimen collection is acceptable on catheter day 1 and 2 only. ? Performed By: #### U [id number] #### [facility] (DEFAULT) [address] [place] [address] Nitrites Urine Negative Normal Negative [facility] Comment on above: Order Comment: For i ndwelling catheters, specimen collection is acceptable on catheter day 1 and 2 only. ? Performed By: #### U [id number] #### [facility] (DEFAULT) [address] [place] [address] pH (U) 6.0 [pH] Normal 5.0-7.[address] [facility] Comment on above: Order Comment: For i ndwelling catheters, specimen collection is acceptable on catheter day 1 and 2 only. ? Performed By: #### U [id number] #### [facility] (DEFAULT) [address] [place] [address] Protein Urine Negative Normal Negative [facility] Comment on above: Order Comment: For i ndwelling catheters, specimen collection is acceptable on catheter day 1 and 2 only. ? Performed By: #### U [id number] #### [facility] (DEFAULT) [address] [place] [address] RBC Urine 0-2 Normal 0-[address] [facility] Comment on above: Order Comment: For i ndwelling catheters, specimen collection is acceptable on catheter day 1 and 2 only. ? Performed By: #### U [id number] #### [facility] (DEFAULT) [address] [place] [address] Specific [place] Urine 1.017 Normal 1.001-1.[address] [facility] Comment on above: Order Comment: For i ndwelling catheters, specimen collection is acceptable on catheter day 1 and 2 only. ? Performed By: #### U [id number] #### [facility] (DEFAULT) [address] [place] [address] Squamous/Epithelial Cells 1/hpf = 1+ Normal 1/hpf = 1+, 2-5/hpf = 2+, 0/hpf = 0+, ABSENT [facility] Comment on above: Order Comment: For i ndwelling catheters, specimen collection is acceptable on catheter day 1 and 2 only. ? Performed By: #### U [id number] #### [facility] (DEFAULT) [address] [address] Urobilinogen Urine 0.2 E.U./dL Normal 0.2-1.[address] [facility] Comment on above: Order Comment: For i ndwelling catheters, specimen collection is acceptable on catheter day 1 and 2 only. ? Performed By: #### U [id number] #### [facility] (DEFAULT) [address] [place] [address] WBC Urine 6-9 Abnormal 0-[address] [facility] Comment on above: Order Comment: For i ndwelling catheters, specimen collection is acceptable on catheter day 1 and 2 only. ? Performed By: #### U [id number] #### [facility] (DEFAULT) [address] [address] URINE CULTUREon 05-22-2021 Bacteria identified Cx Nom (U) Normal [facility] Comment on above: Order Comment: For i ndwelling catheters, specimen collection is acceptable on catheter day 1 and 2 only. ? Result Comment: Grow 4473MIXED SKIN FLORAMIXED SKIN THANG 10,000-50,000 CFU/mL Mixed skin thang Performed By: #### U [id number] #### [facility] (DEFAULT) [address] [address] Complete Blood Count with Au to Diffon 05-21-2021 BASO# BASO#: 0.0 Normal 0.0-0.1 [facility] Comment on above: Performed By: #### C KULDEEP MG #### [place] [address] Ph. [phone] BASO% BASO%: 0 Normal 0-1 [facility] Comment on above: Performed By: #### C KULDEEP MG #### [place] [address] Ph. [phone] Eosinophils (Bld) [#/Vol] 0.3 10*3/uL Normal 0.0-0.5 [facility] Comment on above: Performed By: #### C KULDEEP MG #### [place] [address] Ph. [phone] Eosinophils/100 WBC (Bld) 3 % Normal 0-5 [facility] Comment on above: Performed By: #### C MP, MG #### [place] [address] Ph. [phone] Erythrocyte distribution width (RBC) [Ratio] 13.3 % Normal 11.5-14.5 [facility] Comment on above: Performed By: #### C MP, MG #### [place] [address] Ph. [phone] Hematocrit (Bld) [Volume fraction] 43.3 % Normal 42.0-52.0 [facility] Comment on above: Performed By: #### C MP, MG #### [place] [address] Ph. [phone] Hemoglobin (Bld) [Mass/Vol] 14.6 g/dL Normal 13.5-17.5 [facility] Comment on above: Performed By: #### C MP, MG #### [place] [address] Ph. [phone] Lymphocytes (Bld) [#/Vol] 2.4 10*3/uL Normal 1.0-4.0 [facility] Comment on above: Performed By: #### C MP, MG #### [place] [address] Ph. [phone] Lymphocytes/100 WBC (Bld) 23 % Normal 20-40 [facility] Comment on above: Performed By: #### C MP, MG #### [place] [address] Ph. [phone] MCH (RBC) [Entitic mass] 29.9 pg Normal 27.0-35.0 [facility] Comment on above: Performed By: #### C MP, MG #### [place] [address] Ph. [phone] MCHC (RBC) [Mass/Vol] 33.7 g/dL Normal 32.0-36.0 [facility] Comment on above: Performed By: #### C MP, MG #### [place] [address] Ph. [phone] MCV (RBC) [Entitic vol] 89 fL Normal 80-100 [facility] Comment on above: Performed By: #### C MP, MG #### [place] [address] Ph. [phone] Monocytes (Bld) [#/Vol] 1.1 10*3/uL High 0.3-1.0 [facility] Comment on above: Performed By: #### C MP, MG #### [place] [address] Ph. [phone] Monocytes/100 WBC (Bld) 11 % Normal 1-15 [facility] Comment on above: Performed By: #### C MP, MG #### [place] [address] Ph. [phone] Neutrophils (Bld) [#/Vol] 6.8 10*3/uL Normal 1.8-7.7 [facility] Comment on above: Performed By: #### C MP, MG #### [place] [address]851 Ph. [phone] Neutrophils/100 WBC (Bld) 64 % Normal 50-70 [facility] Comment on above: Performed By: #### C MP, MG #### [place] [address]851 Ph. [phone] Platelet mean volume (Bld) [Entitic vol] 10.6 fL Normal 9.4-12.3 [facility] Comment on above: Performed By: #### C MP, MG #### [address] [address] Ph. [phone] Platelets (Bld) [#/Vol] 229 10*3/uL Normal 150-450 [facility] Comment on above: Performed By: #### C MP, MG #### [address] [address] Ph. [phone] RBC (Bld) [#/Vol] 4.89 10*6/uL Normal 4.70-6.10 [facility] Comment on above: Performed By: #### C MP, MG #### [address] [address] Ph. [phone] WBC (Bld) [#/Vol] 10.7 10*3/uL Normal 3.7-11.0 [facility] Comment on above: Performed By: #### C MP, MG #### [address] [address] Ph. [phone] Comprehensive Metabolic Pane adan 05-21-2021 Albumin [Mass/Vol] 4.2 g/dL Normal 3.5-5.0 [facility] Comment on above: Performed By: #### C MP, MG #### [address] [address] Ph. [phone] ALP [Catalytic activity/Vol] 129 U/L High 38-126 [facility] Comment on above: Performed By: #### C MP, MG #### [address] [address] Ph. [phone] ALT [Catalytic activity/Vol] 38 U/L Normal 0-50 [facility] Comment on above: Performed By: #### C MP, MG #### [address] [address] Ph. [phone] AST [Catalytic activity/Vol] 30 U/L Normal 17-59 [facility] Comment on above: Performed By: #### C MP, MG #### [place] [address] Ph. [phone] Bilirubin [Mass/Vol] 0.4 mg/dL Normal 0.2-1.3 [facility] Comment on above: Performed By: #### C MP, MG #### [place] [address] Ph. [phone] Calcium [Mass/Vol] 9.0 mg/dL Normal 8.4-10.2 [facility] Comment on above: Performed By: #### C MP, MG #### [place] [address] Ph. [phone] Chloride [Moles/Vol] 99 mmol/L Normal 98-107 [facility] Comment on above: Performed By: #### C MP, MG #### [place] [address] Ph. [phone] CO2 [Moles/Vol] 24 mmol/L Normal 22-32 [facility] Comment on above: Performed By: #### C MP, MG #### [place] [address] Ph. [phone] Creatinine [Mass/Vol] 0.57 mg/dL Low 0.66-1.25 [facility] Comment on above: Performed By: #### C MP, MG #### [place] [address] Ph. [phone] GFR/1.73 sq M.predicted among non-blacks MDRD (S/P/Bld) [Vol rate/Area] 110 mL/min/{1.73_m2} Normal >60 [facility] Comment on above: Result Comment: Stag e 1 Kidney damage (e.g., protein in the urine) with normal GFR >=90\X0D0A\Stage 2 Kidney damage with mild decrease in GFR 60-89\X0D0A\Stage 3a Moderate decrease in GFR 45-59\X0D0A\Stage 3b Moderate decrease in GFR 30-44\X0D0A\Stage 4 Severe reduction in GFR 15-29\X0D0A\Stage 5 Kidney failure <15 Performed By: #### C MP, MG #### [place] [address] Ph. [phone] Glucose [Mass/Vol] 111 mg/dL High 65-100 [facility] Comment on above: Performed By: #### C MP, MG #### [place] [address] Ph. [phone] Potassium [Moles/Vol] 3.9 mmol/L Normal 3.6-5.0 [facility] Comment on above: Performed By: #### C MP, MG #### [place] [address] Ph. [phone] Protein [Mass/Vol] 7.8 g/dL Normal 6.3-8.2 [facility] Comment on above: Performed By: #### C MP, MG #### [place] [address] Ph. [phone] Sodium [Moles/Vol] 137 mmol/L Normal 135-145 [facility] Comment on above: Performed By: #### C MP, MG #### [place] [address] Ph. [phone] Urea nitrogen [Mass/Vol] 18 mg/dL Normal 9-20 [facility] Comment on above: Performed By: #### C MP, MG #### [place] [address] Ph. [phone] Magnesiumon 05-21-2021 Magnesium [Mass/Vol] 2.0 mg/dL Normal 1.6-2.3 [facility] Comment on above: Performed By: #### C MP, MG #### [place] [address] Ph. [phone] Complete Blood Count with Au to Diffon 05-20-2021 BASO# BASO#: 0.0 Normal 0.0-0.1 [facility] Comment on above: Performed By: #### C MP, MG #### [place] [address] Ph. [phone] BASO% BASO%: 0 Normal 0-1 [facility] Comment on above: Performed By: #### C MP, MG #### [place] [address] Ph. [phone] Eosinophils (Bld) [#/Vol] 0.2 10*3/uL Normal 0.0-0.5 [facility] Comment on above: Performed By: #### C MP, MG #### [place] [address] Ph. [phone] Eosinophils/100 WBC (Bld) 2 % Normal 0-5 [facility] Comment on above: Performed By: #### C MP, MG #### [place] [address] Ph. [phone] Erythrocyte distribution width (RBC) [Ratio] 13.2 % Normal 11.5-14.5 [facility] Comment on above: Performed By: #### C MP, MG #### [place] [address] Ph. [phone] Hematocrit (Bld) [Volume fraction] 42.3 % Normal 42.0-52.0 [facility] Comment on above: Performed By: #### C MP, MG #### [place] [address] Ph. [phone] Hemoglobin (Bld) [Mass/Vol] 13.8 g/dL Normal 13.5-17.5 [facility] Comment on above: Performed By: #### C MP, MG #### [place] [address] Ph. [phone] Lymphocytes (Bld) [#/Vol] 2.7 10*3/uL Normal 1.0-4.0 [facility] Comment on above: Performed By: #### C MP, MG #### [place] [address] Ph. [phone] Lymphocytes/100 WBC (Bld) 23 % Normal 20-40 [facility] Comment on above: Performed By: #### C MP, MG #### [place] [address] Ph. [phone] MCH (RBC) [Entitic mass] 29.1 pg Normal 27.0-35.0 [facility] Comment on above: Performed By: #### C MP, MG #### [place] [address] Ph. [phone] MCHC (RBC) [Mass/Vol] 32.6 g/dL Normal 32.0-36.0 [facility] Comment on above: Performed By: #### C MP, MG #### [place] [address] Ph. [phone] MCV (RBC) [Entitic vol] 89 fL Normal 80-100 [facility] Comment on above: Performed By: #### C MP, MG #### [place] [address] Ph. [phone] Monocytes (Bld) [#/Vol] 1.2 10*3/uL High 0.3-1.0 [facility] Comment on above: Performed By: #### C MP, MG #### [place] [address] Ph. [phone] Monocytes/100 WBC (Bld) 11 % Normal 1-15 [facility] Comment on above: Performed By: #### C MP, MG #### [address] [address] Ph. [phone] Neutrophils (Bld) [#/Vol] 7.4 10*3/uL Normal 1.8-7.7 [facility] Comment on above: Performed By: #### C MP, MG #### [address] [address] Ph. [phone] Neutrophils/100 WBC (Bld) 64 % Normal 50-70 [facility] Comment on above: Performed By: #### C MP, MG #### [address] [address] Ph. [phone] Platelet mean volume (Bld) [Entitic vol] 10.9 fL Normal 9.4-12.3 [facility] Comment on above: Performed By: #### C MP, MG #### [address] [address] Ph. [phone] Platelets (Bld) [#/Vol] 213 10*3/uL Normal 150-450 [facility] Comment on above: Performed By: #### C MP, MG #### [address] [address] Ph. [phone] RBC (Bld) [#/Vol] 4.74 10*6/uL Normal 4.70-6.10 [facility] Comment on above: Performed By: #### C MP, MG #### [address] [address] Ph. [phone] WBC (Bld) [#/Vol] 11.6 10*3/uL High 3.7-11.0 [facility] Comment on above: Performed By: #### C MP, MG #### [address] [address] Ph. [phone] Comprehensive Metabolic Pane adan 05-20-2021 Albumin [Mass/Vol] 4.1 g/dL Normal 3.5-5.0 [facility] Comment on above: Performed By: #### C MP #### [address] [address] Ph. [phone] ALP [Catalytic activity/Vol] 128 U/L High 38-126 [facility] Comment on above: Performed By: #### C MP #### [address] [address] Ph. [phone] ALT [Catalytic activity/Vol] 30 U/L Normal 0-50 [facility] Comment on above: Performed By: #### C MP #### [address] [address] Ph. [phone] AST [Catalytic activity/Vol] 27 U/L Normal 17-59 [facility] Comment on above: Performed By: #### C MP #### [address] [address] Ph. [phone] Bilirubin [Mass/Vol] 0.3 mg/dL Normal 0.2-1.3 [facility] Comment on above: Performed By: #### C MP #### [address] [address] Ph. [phone] Calcium [Mass/Vol] 9.1 mg/dL Normal 8.4-10.2 [facility] Comment on above: Performed By: #### C MP #### [address] [address] Ph. [phone] Chloride [Moles/Vol] 99 mmol/L Normal 98-107 [facility] Comment on above: Performed By: #### C MP #### [address] [address] Ph. [phone] CO2 [Moles/Vol] 28 mmol/L Normal 22-32 [facility] Comment on above: Performed By: #### C MP #### [place] [address] Ph. [phone] Creatinine [Mass/Vol] 0.59 mg/dL Low 0.66-1.25 [facility] Comment on above: Performed By: #### C MP #### [place] [address] Ph. [phone] GFR/1.73 sq M.predicted among non-blacks MDRD (S/P/Bld) [Vol rate/Area] 108 mL/min/{1.73_m2} Normal >60 [facility] Comment on above: Result Comment: Stag e 1 Kidney damage (e.g., protein in the urine) with normal GFR >=90\X0D0A\Stage 2 Kidney damage with mild decrease in GFR 60-89\X0D0A\Stage 3a Moderate decrease in GFR 45-59\X0D0A\Stage 3b Moderate decrease in GFR 30-44\X0D0A\Stage 4 Severe reduction in GFR 15-29\X0D0A\Stage 5 Kidney failure <15 Performed By: #### C MP #### [place] [address] Ph. [phone] Glucose [Mass/Vol] 106 mg/dL High 65-100 [facility] Comment on above: Performed By: #### C MP #### [place] [address] Ph. [phone] Potassium [Moles/Vol] 4.1 mmol/L Normal 3.6-5.0 [facility] Comment on above: Performed By: #### C MP #### [place] [address] Ph. [phone] Protein [Mass/Vol] 7.2 g/dL Normal 6.3-8.2 [facility] Comment on above: Performed By: #### C MP #### [place] [address] Ph. [phone] Sodium [Moles/Vol] 139 mmol/L Normal 135-145 [facility] Comment on above: Performed By: #### C MP #### [place] [address] Ph. [phone] Urea nitrogen [Mass/Vol] 18 mg/dL Normal 9-20 [facility] Comment on above: Performed By: #### C MP #### [place] [address] Ph. [phone] Magnesiumon 05-20-2021 Magnesium [Mass/Vol] 2.1 mg/dL Normal 1.6-2.3 [facility] Comment on above: Performed By: #### C MP #### [place] [address] Ph. [phone] Complete Blood Count with Au to Diffon 05-19-2021 BASO% BASO%: 0 Normal 0-1 [facility] Comment on above: Performed By: #### C MP, MG #### [place] [address] Ph. [phone] Basophils (Bld) [#/Vol] 0.1 10*3/uL Normal 0.0-0.1 [facility] Comment on above: Performed By: #### C MP, MG #### [place] [address] Ph. [phone] Eosinophils (Bld) [#/Vol] 0.2 10*3/uL Normal 0.0-0.5 [facility] Comment on above: Performed By: #### C MP, MG #### [place] [address] Ph. [phone] Eosinophils/100 WBC (Bld) 1 % Normal 0-5 [facility] Comment on above: Performed By: #### C MP, MG #### [place] [address] Ph. [phone] Erythrocyte distribution width (RBC) [Ratio] 13.3 % Normal 11.5-14.5 [facility] Comment on above: Performed By: #### C MP, MG #### [place] [address] Ph. [phone] Hematocrit (Bld) [Volume fraction] 41.9 % Low 42.0-52.0 [facility] Comment on above: Performed By: #### C MP, MG #### [place] [address] Ph. [phone] Hemoglobin (Bld) [Mass/Vol] 13.8 g/dL Normal 13.5-17.5 [facility] Comment on above: Performed By: #### C MP, MG #### [place] [address] Ph. [phone] Lymphocytes (Bld) [#/Vol] 2.4 10*3/uL Normal 1.0-4.0 [facility] Comment on above: Performed By: #### C MP, MG #### [place] [address] Ph. [phone] Lymphocytes/100 WBC (Bld) 20 % Normal 20-40 [facility] Comment on above: Performed By: #### C MP, MG #### [place] [address] Ph. [phone] MCH (RBC) [Entitic mass] 29.5 pg Normal 27.0-35.0 [facility] Comment on above: Performed By: #### C MP, MG #### [address] [address] Ph. [phone] MCHC (RBC) [Mass/Vol] 32.9 g/dL Normal 32.0-36.0 [facility] Comment on above: Performed By: #### C MP, MG #### [place] [address] Ph. [phone] MCV (RBC) [Entitic vol] 90 fL Normal 80-100 [facility] Comment on above: Performed By: #### C MP, MG #### [place] [address] Ph. [phone] Monocytes (Bld) [#/Vol] 1 10*3/uL Normal 0.3-1.0 [facility] Comment on above: Performed By: #### C MP, MG #### [place] [address] Ph. [phone] Monocytes/100 WBC (Bld) 9 % Normal 1-15 [facility] Comment on above: Performed By: #### C MP, MG #### [place] [address] Ph. [phone] Neutrophils (Bld) [#/Vol] 8 10*3/uL High 1.8-7.7 [facility] Comment on above: Performed By: #### C MP, MG #### [place] [address] Ph. [phone] Neutrophils/100 WBC (Bld) 69 % Normal 50-70 [facility] Comment on above: Performed By: #### C MP, MG #### [place] [address] Ph. [phone] Platelet mean volume (Bld) [Entitic vol] 11.1 fL Normal 9.4-12.3 [facility] Comment on above: Performed By: #### C MP, MG #### [place] [address] Ph. [phone] Platelets (Bld) [#/Vol] 230 10*3/uL Normal 150-450 [facility] Comment on above: Performed By: #### C MP, MG #### [address] [address] Ph. [phone] RBC (Bld) [#/Vol] 4.68 10*6/uL Low 4.70-6.10 [facility] Comment on above: Performed By: #### C MP, MG #### [address] [address] Ph. [phone] WBC (Bld) [#/Vol] 11.6 10*3/uL High 3.7-11.0 [facility] Comment on above: Performed By: #### C MP, MG #### [address] [address] Ph. [phone] Comprehensive Metabolic Pane adan 05-19-2021 Albumin [Mass/Vol] 4.1 g/dL Normal 3.5-5.0 [facility] Comment on above: Performed By: #### C MP #### [address] [address] Ph. [phone] ALP [Catalytic activity/Vol] 147 U/L High 38-126 [facility] Comment on above: Performed By: #### C MP #### [address] [address] Ph. [phone] ALT [Catalytic activity/Vol] 30 U/L Normal 0-50 [facility] Comment on above: Performed By: #### C MP #### [address] [address] Ph. [phone] AST [Catalytic activity/Vol] 26 U/L Normal 17-59 [facility] Comment on above: Performed By: #### C MP #### [address] [address] Ph. [phone] Bilirubin [Mass/Vol] 0.4 mg/dL Normal 0.2-1.3 [facility] Comment on above: Performed By: #### C MP #### [place] [address] Ph. [phone] Calcium [Mass/Vol] 9.2 mg/dL Normal 8.4-10.2 [facility] Comment on above: Performed By: #### C MP #### [place] [address] Ph. [phone] Chloride [Moles/Vol] 100 mmol/L Normal 98-107 [facility] Comment on above: Performed By: #### C MP #### [place] [address] Ph. [phone] CO2 [Moles/Vol] 27 mmol/L Normal 22-32 [facility] Comment on above: Performed By: #### C MP #### [place] [address] Ph. [phone] Creatinine [Mass/Vol] 0.72 mg/dL Normal 0.66-1.25 [facility] Comment on above: Performed By: #### C MP #### [place] [address] Ph. [phone] GFR/1.73 sq M.predicted among non-blacks MDRD (S/P/Bld) [Vol rate/Area] 100 mL/min/{1.73_m2} Normal >60 [facility] Comment on above: Result Comment: Stag e 1 Kidney damage (e.g., protein in the urine) with normal GFR >=90\X0D0A\Stage 2 Kidney damage with mild decrease in GFR 60-89\X0D0A\Stage 3a Moderate decrease in GFR 45-59\X0D0A\Stage 3b Moderate decrease in GFR 30-44\X0D0A\Stage 4 Severe reduction in GFR 15-29\X0D0A\Stage 5 Kidney failure <15 Performed By: #### C MP #### [place] [address] Ph. [phone] Glucose [Mass/Vol] 108 mg/dL High 65-100 [facility] Comment on above: Performed By: #### C MP #### [place] [address] Ph. [phone] Potassium [Moles/Vol] 4.0 mmol/L Normal 3.6-5.0 [facility] Comment on above: Performed By: #### C MP #### [place] [address] Ph. [phone] Protein [Mass/Vol] 7.3 g/dL Normal 6.3-8.2 [facility] Comment on above: Performed By: #### C MP #### [place] [address] Ph. [phone] Sodium [Moles/Vol] 139 mmol/L Normal 135-145 [facility] Comment on above: Performed By: #### C MP #### [place] [address] Ph. [phone] Urea nitrogen [Mass/Vol] 16 mg/dL Normal 9-20 [facility] Comment on above: Performed By: #### C MP #### [place] [address] Ph. [phone] Magnesiumon 05-19-2021 Magnesium [Mass/Vol] 2.0 mg/dL Normal 1.6-2.3 [facility] Comment on above: Performed By: #### C MP #### [place] [address] Ph. [phone] Complete Blood Count with Au to Diffon 05-18-2021 Basophils (Bld) [#/Vol] 0.1 10*3/uL Normal 0.0-0.1 [facility] Comment on above: Performed By: #### C MP, MG #### [place] [address] Ph. [phone] Basophils/100 WBC (Bld) 1 % Normal 0-1 [facility] Comment on above: Performed By: #### C MP, MG #### [place] [address] Ph. [phone] Eosinophils (Bld) [#/Vol] 0.2 10*3/uL Normal 0.0-0.5 [facility] Comment on above: Performed By: #### C MP, MG #### [place] [address] Ph. [phone] Eosinophils/100 WBC (Bld) 2 % Normal 0-5 [facility] Comment on above: Performed By: #### C MP, MG #### [place] [address] Ph. [phone] Erythrocyte distribution width (RBC) [Ratio] 13.2 % Normal 11.5-14.5 [facility] Comment on above: Performed By: #### C MP, MG #### [place] [address] Ph. [phone] Hematocrit (Bld) [Volume fraction] 40.3 % Low 42.0-52.0 [facility] Comment on above: Performed By: #### C MP, MG #### [place] [address] Ph. [phone] Hemoglobin (Bld) [Mass/Vol] 13 g/dL Low 13.5-17.5 [facility] Comment on above: Performed By: #### C MP, MG #### [place] [address] Ph. [phone] Lymphocytes (Bld) [#/Vol] 2.2 10*3/uL Normal 1.0-4.0 [facility] Comment on above: Performed By: #### C MP, MG #### [place] [address] Ph. [phone] Lymphocytes/100 WBC (Bld) 24 % Normal 20-40 [facility] Comment on above: Performed By: #### C MP, MG #### [place] [address] Ph. [phone] MCH (RBC) [Entitic mass] 29.2 pg Normal 27.0-35.0 [facility] Comment on above: Performed By: #### C MP, MG #### [place] [address] Ph. [phone] MCHC (RBC) [Mass/Vol] 32.3 g/dL Normal 32.0-36.0 [facility] Comment on above: Performed By: #### C MP, MG #### [place] [address] Ph. [phone] MCV (RBC) [Entitic vol] 91 fL Normal 80-100 [facility] Comment on above: Performed By: #### C MP, MG #### [place] [address] Ph. [phone] Monocytes (Bld) [#/Vol] 0.9 10*3/uL Normal 0.3-1.0 [facility] Comment on above: Performed By: #### C MP, MG #### [place] [address] Ph. [phone] Monocytes/100 WBC (Bld) 10 % Normal 1-15 [facility] Comment on above: Performed By: #### C MP, MG #### [place] [address] Ph. [phone] Neutrophils (Bld) [#/Vol] 5.9 10*3/uL Normal 1.8-7.7 [facility] Comment on above: Performed By: #### C MP, MG #### [address] [address] Ph. [phone] Neutrophils/100 WBC (Bld) 64 % Normal 50-70 [facility] Comment on above: Performed By: #### C MP, MG #### [place] [address] Ph. [phone] Platelet mean volume (Bld) [Entitic vol] 10.8 fL Normal 9.4-12.3 [facility] Comment on above: Performed By: #### C MP, MG #### [place] [address] Ph. [phone] Platelets (Bld) [#/Vol] 193 10*3/uL Normal 150-450 [facility] Comment on above: Performed By: #### C MP, MG #### [place] [address] Ph. [phone] RBC (Bld) [#/Vol] 4.45 10*6/uL Low 4.70-6.10 [facility] Comment on above: Performed By: #### C MP, MG #### [address] [address] Ph. [phone] WBC (Bld) [#/Vol] 9.2 10*3/uL Normal 3.7-11.0 [facility] Comment on above: Performed By: #### C MP, MG #### [place] [address] Ph. [phone] Comprehensive Metabolic Pane adan 05-18-2021 Albumin [Mass/Vol] 3.6 g/dL Normal 3.5-5.0 [facility] Comment on above: Performed By: #### C MP, MG #### [address] [address] Ph. [phone] ALP [Catalytic activity/Vol] 122 U/L Normal 38-126 [facility] Comment on above: Performed By: #### C MP, MG #### [place] [address] Ph. [phone] ALT [Catalytic activity/Vol] 26 U/L Normal 0-50 [facility] Comment on above: Performed By: #### C MP, MG #### [place] [address] Ph. [phone] AST [Catalytic activity/Vol] 24 U/L Normal 17-59 [facility] Comment on above: Performed By: #### C MP, MG #### [place] [address] Ph. [phone] Bilirubin [Mass/Vol] 0.3 mg/dL Normal 0.2-1.3 [facility] Comment on above: Performed By: #### C MP, MG #### [place] [address] Ph. [phone] Calcium [Mass/Vol] 8.9 mg/dL Normal 8.4-10.2 [facility] Comment on above: Performed By: #### C MP, MG #### [place] [address] Ph. [phone] Chloride [Moles/Vol] 102 mmol/L Normal 98-107 [facility] Comment on above: Performed By: #### C MP, MG #### [place] [address] Ph. [phone] CO2 [Moles/Vol] 29 mmol/L Normal 22-32 [facility] Comment on above: Performed By: #### C MP, MG #### [place] [address] Ph. [phone] Creatinine [Mass/Vol] 0.61 mg/dL Low 0.66-1.25 [facility] Comment on above: Performed By: #### C MP, MG #### [place] [address] Ph. [phone] GFR/1.73 sq M.predicted among non-blacks MDRD (S/P/Bld) [Vol rate/Area] 107 mL/min/{1.73_m2} Normal >60 [facility] Comment on above: Result Comment: Stag e 1 Kidney damage (e.g., protein in the urine) with normal GFR >=90\X0D0A\Stage 2 Kidney damage with mild decrease in GFR 60-89\X0D0A\Stage 3a Moderate decrease in GFR 45-59\X0D0A\Stage 3b Moderate decrease in GFR 30-44\X0D0A\Stage 4 Severe reduction in GFR 15-29\X0D0A\Stage 5 Kidney failure <15 Performed By: #### C MP, MG #### [place] [address] Ph. [phone] Glucose [Mass/Vol] 113 mg/dL High 65-100 [facility] Comment on above: Performed By: #### C MP, MG #### [place] [address] Ph. [phone] Potassium [Moles/Vol] 4.4 mmol/L Normal 3.6-5.0 [facility] Comment on above: Performed By: #### C MP, MG #### [place] [address] Ph. [phone] Protein [Mass/Vol] 6.6 g/dL Normal 6.3-8.2 [facility] Comment on above: Performed By: #### C MP, MG #### [place] [address] Ph. [phone] Sodium [Moles/Vol] 140 mmol/L Normal 135-145 [facility] Comment on above: Performed By: #### C MP, MG #### [address] [address] Ph. [phone] Urea nitrogen [Mass/Vol] 12 mg/dL Normal 9-20 [facility] Comment on above: Performed By: #### C MP, MG #### [address] [address] Ph. [phone] Magnesiumon 05-18-2021 Magnesium [Mass/Vol] 1.9 mg/dL Normal 1.6-2.3 [facility] Comment on above: Performed By: #### C MP, MG #### [address] [address] Ph. [phone] COVID19 ([facility])on 05-17-2021 SARS-CoV-2 (COVID-19) RNA ROSIO+probe Ql (Unsp spec) Not detected Normal NOT-DETECTED [facility] Comment on above: Order Comment: Is th is test for diagnosis or screening?->Screening Result Comment: Nega tive results do not preclude SARS-CoV-2 infection and should not be used as the sole basis for treatment or other patient management decisions. Optimum specimen types and timing for peak viral levels during infections caused by SARS-CoV-2 has not been determined. The possibility of a false negative result should especially be considered if the patient's recent exposures or clinical presentation suggest that SARS-CoV-2 infection is probable, and diagnostic tests for other causes of illness (e.g., other respiratory illness) are negative. Collection of a new specimen and re-testing may be necessary if the patient is critically ill or clinically deteriorating. \X0D0A\This test was performed using real time PCR for qualitative detection of SARS-CoV-2 nucleic acid and has been approved as Emergency Use Authorization (EAU) for the qualitative detection of SARS-CoV-2 nucleic acid. \X0D0A\Resulting Lab: [facility] Performed By: #### C MP, MG #### [address] [address] Ph. [phone] CT UROGRAMon 05-17-2021 CT UROGRAM RADRPT Begin Addendum #1 Clinical content is unchanged. 3-D images were rendered on a separate workstation. Report electronically signed by: Dr. Randi Fernando Electronically Signed by: RANDI FERNANDO on MonJun 21, 2021 11:02:[address] ABDOMEN AND PELVIS WITHOUT AND WITH CONTRAST DONE WITH A UROGRAM PROTOCOL CLINICAL HISTORY: Urinary retention COMPARISON: CT scan 04/19/2021 TECHNIQUE: Helical axial CT images of the abdomen and pelvis were obtained initially without contrast. Then the bolus administration of 120 mL of opaque 350 nonionic IV contrast. No oral contrast was administered. Delayed nephrographic and extracardiac images were obtained of the abdomen pelvis. Sagittal and coronal reformatted images were obtained. Reconstructed 2.5 mm images were also obtained. Dose reduction techniques were achieved by using automated exposure control and/or adjustment of mA and/or kV according to patient size and/or use of iterative reconstruction technique. FINDINGS: Lung bases: Lung bases are grossly clear. Heart size is stable. No pleural or pericardial effusion. Liver: Negative. Gallbladder and biliary system: No radiopaque cholelithiasis is noted. No abnormal biliary ductal dilatation is noted. Pancreas: Negative. Spleen: Negative. Adrenal Glands: Negative. Kidneys and collecting system: There is no evidence for hydronephrosis or nephrolithiasis. Tiny cortical renal cyst is present involving the inferior pole the right kidney. There is an indeterminate 9 mm left inferior pole lesion, which is unchanged in size and appearance on the noncontrast studies dating back to 07/22/2020. There is symmetrical enhancement of the kidneys. Bowel: There is no evidence of bowel obstruction. No colonic diverticulosis is identified. There are postsurgical changes from right hemicolectomy. Moderate colonic stool burden. Lymph nodes: Negative. Retroperitoneum: No evidence of aortic aneurysm. Pelvis: The bladder is incompletely distended. Circumferential bladder wall thickening could be due to underdistention. No discrete lesion identified. The uterus is surgically absent. Osseous structures: Chronic appearing inferior right-sided rib fractures are noted. No acute or aggressive osseous abnormality identified. Report electronically signed by: Dr. Randi Fernando IMPRESSION: 1. Incompletely distended bladder. No discrete bladder lesion identified. 2. 9 mm left lower pole indeterminate lesion is unchanged in size and appearance of a noncontrast study. 3. Possible changes from right hemicolectomy. Moderate colonic stool burden. Urinary retention Best scan possible, patient unable to follow breathing instructions Interpreted by: Randi Fernando MD Signed by: Randi Fernando MD 06/21/21 Edited Normal [facility] Complete Blood Count with Au to Diffon 05-17-2021 Basophils (Bld) [#/Vol] 0.1 10*3/uL Normal 0.0-0.1 [facility] Comment on above: Performed By: #### C MP, MG #### [place] [address] Ph. [phone] Basophils/100 WBC (Bld) 1 % Normal 0-1 [facility] Comment on above: Performed By: #### C MP, MG #### [place] [address] Ph. [phone] Eosinophils (Bld) [#/Vol] 0.2 10*3/uL Normal 0.0-0.5 [facility] Comment on above: Performed By: #### C MP, MG #### [place] [address] Ph. [phone] Eosinophils/100 WBC (Bld) 2 % Normal 0-5 [facility] Comment on above: Performed By: #### C MP, MG #### [place] [address] Ph. [phone] Erythrocyte distribution width (RBC) [Ratio] 13.5 % Normal 11.5-14.5 [facility] Comment on above: Performed By: #### C MP, MG #### [place] [address] Ph. [phone] Hematocrit (Bld) [Volume fraction] 43.6 % Normal 42.0-52.0 [facility] Comment on above: Performed By: #### C MP, MG #### [place] [address] Ph. [phone] Hemoglobin (Bld) [Mass/Vol] 14.3 g/dL Normal 13.5-17.5 [facility] Comment on above: Performed By: #### C MP, MG #### [address] [address] Ph. [phone] Lymphocytes (Bld) [#/Vol] 2.5 10*3/uL Normal 1.0-4.0 [facility] Comment on above: Performed By: #### C MP, MG #### [place] [address] Ph. [phone] Lymphocytes/100 WBC (Bld) 25 % Normal 20-40 [facility] Comment on above: Performed By: #### C MP, MG #### [address] [address] Ph. [phone] MCH (RBC) [Entitic mass] 29.5 pg Normal 27.0-35.0 [facility] Comment on above: Performed By: #### C MP, MG #### [address] [address] Ph. [phone] MCHC (RBC) [Mass/Vol] 32.8 g/dL Normal 32.0-36.0 [facility] Comment on above: Performed By: #### C MP, MG #### [address] [address] Ph. [phone] MCV (RBC) [Entitic vol] 90 fL Normal 80-100 [facility] Comment on above: Performed By: #### C MP, MG #### [place] [address] Ph. [phone] Monocytes (Bld) [#/Vol] 1 10*3/uL Normal 0.3-1.0 [facility] Comment on above: Performed By: #### C MP, MG #### [address] [place] [address] Ph. [phone] Monocytes/100 WBC (Bld) 10 % Normal 1-15 [facility] Comment on above: Performed By: #### C MP, MG #### [place] [address] Ph. [phone] Neutrophils (Bld) [#/Vol] 6.3 10*3/uL Normal 1.8-7.7 [facility] Comment on above: Performed By: #### C MP, MG #### [place] [address] Ph. [phone] Neutrophils/100 WBC (Bld) 63 % Normal 50-70 [facility] Comment on above: Performed By: #### C MP, MG #### [place] [address] Ph. [phone] Platelet mean volume (Bld) [Entitic vol] 12.8 fL High 9.4-12.3 [facility] Comment on above: Performed By: #### C MP, MG #### [place] [address] Ph. [phone] Platelets (Bld) [#/Vol] 135 10*3/uL Low 150-450 [facility] Comment on above: Performed By: #### C MP, MG #### [place] [address] Ph. [phone] RBC (Bld) [#/Vol] 4.85 10*6/uL Normal 4.70-6.10 [facility] Comment on above: Performed By: #### C MP, MG #### [address] [address] Ph. [phone] WBC (Bld) [#/Vol] 10 10*3/uL Normal 3.7-11.0 [facility] Comment on above: Performed By: #### C MP, MG #### [place] [address] Ph. [phone] Comprehensive Metabolic Pane adan 05-17-2021 Albumin [Mass/Vol] 4.0 g/dL Normal 3.5-5.0 [facility] Comment on above: Performed By: #### C MP, MG #### [place] [address] Ph. [phone] ALP [Catalytic activity/Vol] 138 U/L High 38-126 [facility] Comment on above: Performed By: #### C MP, MG #### [place] [address] Ph. [phone] ALT [Catalytic activity/Vol] 31 U/L Normal 0-50 [facility] Comment on above: Performed By: #### C MP, MG #### [place] [address] Ph. [phone] AST [Catalytic activity/Vol] 28 U/L Normal 17-59 [facility] Comment on above: Performed By: #### C MP, MG #### [address] [address] Ph. [phone] Bilirubin [Mass/Vol] 0.3 mg/dL Normal 0.2-1.3 [facility] Comment on above: Performed By: #### C MP, MG #### [place] [address] Ph. [phone] Calcium [Mass/Vol] 9.2 mg/dL Normal 8.4-10.2 [facility] Comment on above: Performed By: #### C MP, MG #### [address] [address] Ph. [phone] Chloride [Moles/Vol] 104 mmol/L Normal 98-107 [facility] Comment on above: Performed By: #### C MP, MG #### [place] [address] Ph. [phone] CO2 [Moles/Vol] 26 mmol/L Normal 22-32 [facility] Comment on above: Performed By: #### C MP, MG #### [place] [address] Ph. [phone] Creatinine [Mass/Vol] 0.73 mg/dL Normal 0.66-1.25 [facility] Comment on above: Performed By: #### C MP, MG #### [place] [address] Ph. [phone] GFR/1.73 sq M.predicted among non-blacks MDRD (S/P/Bld) [Vol rate/Area] 99 mL/min/{1.73_m2} Normal >60 [facility] Comment on above: Result Comment: Stag e 1 Kidney damage (e.g., protein in the urine) with normal GFR >=90\X0D0A\Stage 2 Kidney damage with mild decrease in GFR 60-89\X0D0A\Stage 3a Moderate decrease in GFR 45-59\X0D0A\Stage 3b Moderate decrease in GFR 30-44\X0D0A\Stage 4 Severe reduction in GFR 15-29\X0D0A\Stage 5 Kidney failure <15 Performed By: #### C MP, MG #### [place] [address] Ph. [phone] Glucose [Mass/Vol] 107 mg/dL High 65-100 [facility] Comment on above: Performed By: #### C MP, MG #### [place] [address] Ph. [phone] Potassium [Moles/Vol] 4.2 mmol/L Normal 3.6-5.0 [facility] Comment on above: Performed By: #### C MP, MG #### [place] [address] Ph. [phone] Protein [Mass/Vol] 7.2 g/dL Normal 6.3-8.2 [facility] Comment on above: Performed By: #### C MP, MG #### [address] [address] Ph. [phone] Sodium [Moles/Vol] 143 mmol/L Normal 135-145 [facility] Comment on above: Performed By: #### C MP, MG #### [address] [address] Ph. [phone] Urea nitrogen [Mass/Vol] 17 mg/dL Normal 9-20 [facility] Comment on above: Performed By: #### C MP, MG #### [place] [address] Ph. [phone] Culture, Urineon 05-17-2021 Culture, Urine USOURCE: Clean Catch Midstream Preliminary Result: No Growth 24 Hours CULTURE: No Growth at 48 Hours Normal [facility] Comment on above: Performed By: #### C MP, MG #### [place] [address] Ph. [phone] INTRINSIC FACTOR BLOCKING AN TIBODYon 05-17-2021 Intrinsic Factor Block Ab Negative Normal Negative [facility] Comment on above: Order Comment: [facility] performed at: [employer], [facility], [address] [place] [address], , Emissions Engineer: Vinod Cotto M.D., Ph\X0D0A\[facility] Collection Date/Time: \X0D0A\[facility] Results Received Date/Time: \X0D0A\[facility] Reported Date/Time: [id number] to add onto previously drawn labs if possible Result Comment: \X0D 0A\For additional information, please refer to\X0D0A\[email or web address].[email or web address].com/faq/IFAB\[email or web address]\(Th is link is being provided for informational/\X0D0A\ educational purposes only.)\X0D0A\ Performed By: #### C MP, MG #### [address] [address] Ph. [phone] MITOCHONDRIAL ANTIBODIES, M2 on 05-17-2021 Mitochondria M2 Ab (IgG) <=20.0 Normal <=20.0 [facility] Comment on above: Order Comment: [facility] performed at: [facility], [facility], [address] [place] [address], , Emissions Engineer: Vinod Cotto M.D., Ph\X0D0A\[facility] Collection Date/Time: [id number]\X0D0A\[facility] Results Received Date/Time: \X0D0A\[facility] Reported Date/Time: OK to add onto previously drawn labs if possible Result Comment: \X0D 0A\Reference Range:\X0D0A\ Negative: <=20.0 U\X0D0A\ Equivocal: 20.1 - 24.9 U\X0D0A\ Positive: >=25.0 U\X0D0A\ Performed By: #### O [id number] #### [address] [address] Ph. [phone] MRI BRAIN WO CONTRASTon MRI BRAIN WO CONTRAST RADRPT MRI BRAIN WITHOUT CONTRAST; 05/17/2021 11:31 AM EDT Clinical History:progressive weakness and falls Comparison: None available . SEQUENCES: Per routine unenhanced protocol. STUDY QUALITY: Motion artifact on multiple pulse sequences, particularly sagittal T1 On this unenhanced exam, no distinct evidence of intracranial mass or mass effect. No midline shift. No evidence of acute infarction. No restricted diffusion. No obvious unexpected paramagnetic substance deposition. Mild confluent supratentorial white matter disease is unchanged. No obvious white matter disease in the posterior fossa VESSELS: Signal voids are present in the major intracranial blood vessels. BRAIN VOLUME: Unremarkable VENTRICLES: No hydrocephalus ORBITS: Grossly symmetric and unremarkable. SELLA/ SUPRASELLAR: Grossly, no acute findings CP ANGLES: . Grossly, no acute findings PARANASAL SINUSES: No air-fluid levels MASTOIDS: Clear at MRI CALVARIUM: No acute findings OTHER: None Report electronically signed by: Dr. Marleni Nance IMPRESSION: 1. Suboptimal as described. Grossly, no evidence of acute intracranial process as described. Limited due to pt motion. Pt has MRDD. Propellar series used. Frequent falls with head trauma Interpreted by: Marleni Nance MD Signed by: Marleni Nance MD 05/17/21 Final result Normal [facility] Magnesiumon 05-17-2021 Magnesium [Mass/Vol] 2.0 mg/dL Normal 1.6-2.3 [facility] Comment on above: Performed By: #### C MP, MG #### [place] [address] Ph. [phone] NOVEL CORONAVIRUS NASOPHARYN GEAL - [facility] SPECIMEN ONLYon 05-17-2021 SARS-CoV-2 (COVID-19) RNA ROSIO+probe Ql (Unsp spec) Not detected Normal NOT DETECTED [facility] Comment on above: Order Comment: For i ndwelling catheters, specimen collection is acceptable on catheter day 1 and 2 only. ? Result Comment: [facility] Negative results do not preclude SARS-CoV-2 infection and should not be used as the sole basis for treatment or other patient management decisions. Optimum specimen types and timing for peak viral levels during infections caused by SARS-CoV-2 has not been determined. The possibility of a false negative result should especially be considered if the patient's recent exposures or clinical presentation suggest that SARS-CoV-2 infection is probable, and diagnostic tests for other causes of illness (e.g., other respiratory illness) are negative. Collection of a new specimen and re-testing may be necessary if the patient is critically ill or clinically deteriorating. Performed By: #### U [id number] #### U [facility] (DEFAULT) [address] [address] Urinalysis, Complete reflex to cultureon 05-17-2021 BACT None Seen Normal [facility] Comment on above: Performed By: #### C MP, MG #### [address] [address] Ph. [phone] CULTIND No Normal [facility] Comment on above: Performed By: #### C MP, MG #### [address] [address] Ph. [phone] MUCS None Seen Normal [facility] Comment on above: Performed By: #### C MP, MG #### [address] [address] Ph. [phone] SQEPI None Seen Normal [facility] Comment on above: Performed By: #### C MP, MG #### [address] [address] Ph. [phone] UBIL Negative Normal Negative [facility] Comment on above: Performed By: #### C MP, MG #### [address] [address] Ph. [phone] UBLO Moderate Abnormal Negative [facility] Comment on above: Performed By: #### C MP, MG #### [address] [address] Ph. [phone] UCLAR Slightly Cloudy Normal [facility] Comment on above: Performed By: #### C MP, MG #### [address] [address] Ph. [phone] UCOL Yellow Normal [facility] Comment on above: Performed By: #### C MP, MG #### [address] [address] Ph. [phone] UGLU Negative Normal Negative [facility] Comment on above: Performed By: #### C MP, MG #### [address] [address] Ph. [phone] UKET Negative Normal Negative [facility] Comment on above: Performed By: #### C MP, MG #### [address] [address] Ph. [phone] ULEU Negative Normal Negative [facility] Comment on above: Performed By: #### C MP, MG #### [address] [address] Ph. [phone] UNCX None Seen Normal [facility] Comment on above: Performed By: #### C MP, MG #### [place] [address] Ph. [phone] UNIT Negative Normal Negative [facility] Comment on above: Performed By: #### C MP, MG #### [address] [address] Ph. [phone] UPH 5.0 Normal 5.0-7.0 [facility] Comment on above: Performed By: #### C MP, MG #### [place] [address] Ph. [phone] UPRO Negative Normal Negative [facility] Comment on above: Performed By: #### C MP, MG #### [address] [address] Ph. [phone] URBC 10-20 Normal [facility] Comment on above: Performed By: #### C MP, MG #### [address] [address] Ph. [phone] USG 1.020 Normal 1.005-1.030 [facility] Comment on above: Performed By: #### C MP, MG #### [address] [address] Ph. [phone] UURO 0.2 E.U./dL Normal 0.2-1.0 [facility] Comment on above: Performed By: #### C MP, MG #### [place] [address] Ph. [phone] UWBC None Seen Normal [facility] Comment on above: Performed By: #### C MP, MG #### [place] [address] Ph. [phone] Complete Blood Count with Au to Diffon 05-16-2021 Basophils (Bld) [#/Vol] 0.1 10*3/uL Normal 0.0-0.1 [facility] Comment on above: Performed By: #### C MP, MG #### [place] [address] Ph. [phone] Basophils/100 WBC (Bld) 1 % Normal 0-1 [facility] Comment on above: Performed By: #### C MP, MG #### [place] [address] Ph. [phone] Eosinophils (Bld) [#/Vol] 0.2 10*3/uL Normal 0.0-0.5 [facility] Comment on above: Performed By: #### C MP, MG #### [place] [address] Ph. [phone] Eosinophils/100 WBC (Bld) 3 % Normal 0-5 [facility] Comment on above: Performed By: #### C MP, MG #### [place] [address] Ph. [phone] Erythrocyte distribution width (RBC) [Ratio] 13.1 % Normal 11.5-14.5 [facility] Comment on above: Performed By: #### C MP, MG #### [place] [address] Ph. [phone] Hematocrit (Bld) [Volume fraction] 39.7 % Low 42.0-52.0 [facility] Comment on above: Performed By: #### C MP, MG #### [place] [address] Ph. [phone] Hemoglobin (Bld) [Mass/Vol] 13 g/dL Low 13.5-17.5 [facility] Comment on above: Performed By: #### C MP, MG #### [place] [address] Ph. [phone] Lymphocytes (Bld) [#/Vol] 2.7 10*3/uL Normal 1.0-4.0 [facility] Comment on above: Performed By: #### C MP, MG #### [place] [address] Ph. [phone] Lymphocytes/100 WBC (Bld) 30 % Normal 20-40 [facility] Comment on above: Performed By: #### C MP, MG #### [place] [address] Ph. [phone] MCH (RBC) [Entitic mass] 29.3 pg Normal 27.0-35.0 [facility] Comment on above: Performed By: #### C MP, MG #### [place] [address] Ph. [phone] MCHC (RBC) [Mass/Vol] 32.7 g/dL Normal 32.0-36.0 [facility] Comment on above: Performed By: #### C MP, MG #### [place] [address] Ph. [phone] MCV (RBC) [Entitic vol] 89 fL Normal 80-100 [facility] Comment on above: Performed By: #### C MP, MG #### [place] [address] Ph. [phone] Monocytes (Bld) [#/Vol] 0.8 10*3/uL Normal 0.3-1.0 [facility] Comment on above: Performed By: #### C MP, MG #### [address] [address] Ph. [phone] Monocytes/100 WBC (Bld) 9 % Normal 1-15 [facility] Comment on above: Performed By: #### C MP, MG #### [address] [address] Ph. [phone] Neutrophils (Bld) [#/Vol] 5.1 10*3/uL Normal 1.8-7.7 [facility] Comment on above: Performed By: #### C MP, MG #### [address] [address] Ph. [phone] Neutrophils/100 WBC (Bld) 57 % Normal 50-70 [facility] Comment on above: Performed By: #### C MP, MG #### [address] [address] Ph. [phone] Platelet mean volume (Bld) [Entitic vol] 10.8 fL Normal 9.4-12.3 [facility] Comment on above: Performed By: #### C MP, MG #### [address] [address] Ph. [phone] Platelets (Bld) [#/Vol] 183 10*3/uL Normal 150-450 [facility] Comment on above: Performed By: #### C MP, MG #### [address] [address] Ph. [phone] RBC (Bld) [#/Vol] 4.44 10*6/uL Low 4.70-6.10 [facility] Comment on above: Performed By: #### C MP, MG #### [address] [address] Ph. [phone] WBC (Bld) [#/Vol] 8.9 10*3/uL Normal 3.7-11.0 [facility] Comment on above: Performed By: #### C MP, MG #### [address] [address] Ph. [phone] Comprehensive Metabolic Pane adan 05-16-2021 Albumin [Mass/Vol] 3.8 g/dL Normal 3.5-5.0 [facility] Comment on above: Performed By: #### C MP, MG #### [place] [address] Ph. [phone] ALP [Catalytic activity/Vol] 139 U/L High 38-126 [facility] Comment on above: Performed By: #### C MP, MG #### [address] [address] Ph. [phone] ALT [Catalytic activity/Vol] 29 U/L Normal 0-50 [facility] Comment on above: Performed By: #### C MP, MG #### [address] [address] Ph. [phone] AST [Catalytic activity/Vol] 31 U/L Normal 17-59 [facility] Comment on above: Performed By: #### C MP, MG #### [address] [address] Ph. [phone] Bilirubin [Mass/Vol] 0.3 mg/dL Normal 0.2-1.3 [facility] Comment on above: Performed By: #### C MP, MG #### [address] [address] Ph. [phone] Calcium [Mass/Vol] 9.0 mg/dL Normal 8.4-10.2 [facility] Comment on above: Performed By: #### C MP, MG #### [address] [address] Ph. [phone] Chloride [Moles/Vol] 105 mmol/L Normal 98-107 [facility] Comment on above: Performed By: #### C MP, MG #### [address] [address] Ph. [phone] CO2 [Moles/Vol] 23 mmol/L Normal 22-32 [facility] Comment on above: Performed By: #### C MP, MG #### [place] [address] Ph. [phone] Creatinine [Mass/Vol] 0.65 mg/dL Low 0.66-1.25 [facility] Comment on above: Performed By: #### C MP, MG #### [place] [address] Ph. [phone] GFR/1.73 sq M.predicted among non-blacks MDRD (S/P/Bld) [Vol rate/Area] 104 mL/min/{1.73_m2} Normal >60 [facility] Comment on above: Result Comment: Stag e 1 Kidney damage (e.g., protein in the urine) with normal GFR >=90\X0D0A\Stage 2 Kidney damage with mild decrease in GFR 60-89\X0D0A\Stage 3a Moderate decrease in GFR 45-59\X0D0A\Stage 3b Moderate decrease in GFR 30-44\X0D0A\Stage 4 Severe reduction in GFR 15-29\X0D0A\Stage 5 Kidney failure <15 Performed By: #### C MP, MG #### [place] [address] Ph. [phone] Glucose [Mass/Vol] 110 mg/dL High 65-100 [facility] Comment on above: Performed By: #### C MP, MG #### [place] [address] Ph. [phone] Potassium [Moles/Vol] 4.1 mmol/L Normal 3.6-5.0 [facility] Comment on above: Performed By: #### C MP, MG #### [place] [address] Ph. [phone] Protein [Mass/Vol] 6.9 g/dL Normal 6.3-8.2 [facility] Comment on above: Performed By: #### C MP, MG #### [place] [address] Ph. [phone] Sodium [Moles/Vol] 139 mmol/L Normal 135-145 [facility] Comment on above: Performed By: #### C MP, MG #### [place] [address] Ph. [phone] Urea nitrogen [Mass/Vol] 14 mg/dL Normal 9-20 [facility] Comment on above: Performed By: #### C MP, MG #### [place] [address] Ph. [phone] MRI CERVICAL SPINE WO CONTRA STon 05-16-2021 MRI CERVICAL SPINE WO CONTRAST RADRPT CLINICAL HISTORY: Frequent falls. Head trauma. MRI CERVICAL SPINE WITHOUT CONTRAST: TECHNIQUE: Sagittal T1, T2, axial T1, T2-weighted PROPELLER images were obtained through the cervical spine. COMPARISON: MRI cervical spine of 12/27/2019. CT of 01/29/2021. FINDINGS: This MRI is compromised by some patient motion artifact. An area of apparent hyperintense T2 signal is noted in the spinal cord at the C4-C5 level. The remainder of the visualized spinal cord and cervicomedullary junction appear normal. The cervical spine is in anatomic alignment. There is diffuse disc desiccation, with mild degenerative loss of disc height at the C3-C4 through C6-C7 levels. The bone marrow appears normal in signal. C2-C3: No disc herniation or stenosis. C3-C4: A right paracentral/lateral recess disc-osteophyte complex, congenitally short pedicles and moderate right facet arthrosis results in moderate central spinal canal stenosis, stenosis of the right lateral recess, and severe right foraminal stenosis. C4-C5: A broad-based disc-osteophyte and congenitally short pedicles result in severe central spinal canal stenosis (5.5 mm AP diameter of the thecal sac) with compression of the ventral spinal cord and hyperintense T2 signal in the spinal cord, as well as apparent severe right and moderate left foraminal stenosis. C5-C6: A small annular bulge with uncovertebral osteophytes and congenitally short pedicles are noted, resulting in moderately severe bilateral foraminal stenosis, and mild effacement of the ventral thecal sac. C6-C7: A broad-based disc protrusion, small endplate osteophytes, and congenitally short pedicles results in moderate central spinal canal stenosis (7 mm AP diameter of the thecal sac) without spinal cord compression, and moderate right foraminal stenosis. No significant left foraminal stenosis is seen. C7-T1: A very small right paracentral disc protrusion is suspected, without central spinal canal stenosis or foraminal stenosis. T1-T2: No disc herniation or stenosis is seen. Report electronically signed by: Dr. Desmond Evans IMPRESSION: 1. C4-C5: A broad-based disc-osteophyte and congenitally short pedicles result in severe central spinal canal stenosis with compression of the ventral spinal cord and hyperintense T2 signal edema or myelomalacia in the spinal cord, as well as severe right and moderate left foraminal stenosis. 2. Moderate C3-C4 and C6-C7 degenerative disc changes and congenitally short pedicles result results in moderate central spinal canal stenosis, C3-C4 stenosis of the right lateral recess, and severe right foraminal stenosis and C6-C7 moderate right foraminal stenosis. 3. Moderate C5-C6 degenerative changes result in moderately severe bilateral foraminal stenosis, and mild effacement of the ventral thecal sac. 4. This MRI is compromised by patient motion artifact. Frequent falls. Limited study due to pt motion. Pt is MRDD, has difficulty holding still, propellar series utilized. Interpreted by: Desmond Evans MD Signed by: Desmond Evans MD 05/17/21 Final result Normal [facility] Magnesiumon 05-16-2021 Magnesium [Mass/Vol] 2.0 mg/dL Normal 1.6-2.3 [facility] Comment on above: Performed By: #### C MP, MG #### [address] [address] Ph. [phone] US ABDOMEN LIMITEDon US ABDOMEN LIMITED RADRPT EXAM: US ABDOMEN LIMITED HISTORY: 61 years old Male presenting with elevated liver enzymes. TECHNIQUE: Ultrasound of the right upper quadrant abdomen. COMPARISON: CT scan 04/19/2021 FINDINGS: Liver: Liver demonstrates slight increase in the CC and decreased penetration consistent with hepatic steatosis. No focal suspicious hepatic lesion identified. Gallbladder: The gallbladder is contracted with echogenic shadowing foci consistent with cholelithiasis. Gallbladder wall thickening is nonspecific in the setting of contraction. No sonographic Hess's sign. Common bile duct: Normal in diameter, measuring 0.5cm. Right kidney: Normal in size and echogenicity measuring 10.7 cm. No hydronephrosis or renal calculus. Miscellaneous:None. Report electronically signed by: Dr. Randi Fernando IMPRESSION: 1. Cholelithiasis without definite evidence of acute cholecystitis. 2. Hepatic steatosis. Interpreted by: Randi Fernando MD Signed by: Randi Fernando MD 05/17/21 Final result Normal [facility] Ammoniaon 05-15-2021 AMM <9 Normal 9-47 [facility] Comment on above: Performed By: #### A MM #### [address] [address] [phone] LUMBAR SPINE WO CONTRASTo n 05-15-2021 CT LUMBAR SPINE WO CONTRAST RADRPT EXAM: CT LUMBAR SPINE WO CONTRAST, CT THORACIC SPINE WO CONTRAST HISTORY: TECH NOTES: general weakness, difficulty walking. Has had frequent falls, third visit last [address] days to ER. [facility] [address] head and C spine 0n 05/11/21 that was unremarkable., Lower Extremity Weakness LOWER EXTREMITY WEAKNESS COMPARISON: Comparison made to lumbar spine radiograph dated 12/28/2020. TECHNIQUE: Contiguous transaxial images were obtained through the thoracic and lumbar spine without administration of intravenous contrast. Coronal and sagittal reformations were performed. Dose reduction: mA and/or kV are were adjusted by automated exposure control software based upon patients height and weight. FINDINGS: There are 5 nonrib-bearing lumbar vertebral bodies. There is mild dextroscoliosis of the thoracic spine and minimal levocurvature of the lumbar spine. There is no acute lumbar vertebral compression fracture. There is minimal chronic appearing superior endplate depression of C7 and T1. No acute thoracic vertebral compression fracture is identified. There are old healing right 9th-12th rib fracture deformities. There are old healed posterior left 9thth, 10th, and 11th rib fracture deformities. There is mild multilevel degenerative disc disease of the thoracic spine. There is a tiny T7-T8 posterior disc osteophyte complex without significant central canal stenosis. There is minimal degenerative disc disease of the lumbar spine with endplate remodeling and spurring. There is a minimal broad-based disc bulges at L3-L4. There is mild thoracic and abdominal aortic atherosclerosis. There is a 3 mm nonobstructing left renal calculus. Report electronically signed by: Dr. Antwan Pires IMPRESSION: 1. No acute thoracic or lumbar vertebral compression fracture. There is minimal chronic appearing superior endplate depression of C7-T1. 2. Old healed right ninth-12th rib fracture deformities and old healed posterior left 9th-11th rib fracture deformities. 3. Mild degenerative disc disease of the thoracic spine with tiny posterior disc osteophyte complex at T7-T8. There is a minimal broad-based disc bulges at L3-L4, L4-L5, L5-S1. 4. Additional incidental findings as described. general weakness, difficulty walking. has had frequent falls, third visit last 34 days to ER. [facility] CT head and C spine 0n 05/11/21 that was unremarkable., Lower Extremity Weakness Interpreted by: Antwan Pires MD Signed by: Antwan Pires MD 05/15/21 Final result Normal [facility] CT THORACIC SPINE WO CONTRAS Ton 05-15-2021 CT THORACIC SPINE WO CONTRAST RADRPT EXAM: CT LUMBAR SPINE WO CONTRAST, CT THORACIC SPINE WO CONTRAST HISTORY: TECH NOTES: general weakness, difficulty walking. Has had frequent falls, third visit last 34 days to ER. [facility] CT head and C spine 0n 05/11/21 that was unremarkable., Lower Extremity Weakness LOWER EXTREMITY WEAKNESS COMPARISON: Comparison made to lumbar spine radiograph dated 12/28/2020. TECHNIQUE: Contiguous transaxial images were obtained through the thoracic and lumbar spine without administration of intravenous contrast. Coronal and sagittal reformations were performed. Dose reduction: mA and/or kV are were adjusted by automated exposure control software based upon patients height and weight. FINDINGS: There are 5 nonrib-bearing lumbar vertebral bodies. There is mild dextroscoliosis of the thoracic spine and minimal levocurvature of the lumbar spine. There is no acute lumbar vertebral compression fracture. There is minimal chronic appearing superior endplate depression of C7 and T1. No acute thoracic vertebral compression fracture is identified. There are old healing right 9th-12th rib fracture deformities. There are old healed posterior left 9thth, 10th, and 11th rib fracture deformities. There is mild multilevel degenerative disc disease of the thoracic spine. There is a tiny T7-T8 posterior disc osteophyte complex without significant central canal stenosis. There is minimal degenerative disc disease of the lumbar spine with endplate remodeling and spurring. There is a minimal broad-based disc bulges at L3-L4. There is mild thoracic and abdominal aortic atherosclerosis. There is a 3 mm nonobstructing left renal calculus. Report electronically signed by: Dr. Antwan Pires IMPRESSION: 1. No acute thoracic or lumbar vertebral compression fracture. There is minimal chronic appearing superior endplate depression of C7-T1. 2. Old healed right ninth-12th rib fracture deformities and old healed posterior left 9th-11th rib fracture deformities. 3. Mild degenerative disc disease of the thoracic spine with tiny posterior disc osteophyte complex at T7-T8. There is a minimal broad-based disc bulges at L3-L4, L4-L5, L5-S1. 4. Additional incidental findings as described. general weakness, difficulty walking. has had frequent falls, third visit last 34 days to ER. [facility] CT head and C spine 0n 05/11/21 that was unremarkable Interpreted by: Antwan Pires MD Signed by: Antwan Pires MD 05/15/21 Final result Normal [facility] Complete Blood Count with Au to Diffon 05-15-2021 BASO# BASO#: 0.0 Normal 0.0-0.1 [facility] Comment on above: Performed By: #### C MG KULDEEP #### [place] [address] Ph. [phone] BASO% BASO%: 0 Normal 0-1 [facility] Comment on above: Performed By: #### C MG KULDEEP #### [place] [address] Ph. [phone] Eosinophils (Bld) [#/Vol] 0.2 10*3/uL Normal 0.0-0.5 [facility] Comment on above: Performed By: #### C MP, MG #### [place] [address] Ph. [phone] Eosinophils/100 WBC (Bld) 2 % Normal 0-5 [facility] Comment on above: Performed By: #### C MP, MG #### [place] [address] Ph. [phone] Erythrocyte distribution width (RBC) [Ratio] 13.2 % Normal 11.5-14.5 [facility] Comment on above: Performed By: #### C MP, MG #### [place] [address] Ph. [phone] Hematocrit (Bld) [Volume fraction] 40.1 % Low 42.0-52.0 [facility] Comment on above: Performed By: #### C MP, MG #### [place] [address] Ph. [phone] Hemoglobin (Bld) [Mass/Vol] 13.3 g/dL Low 13.5-17.5 [facility] Comment on above: Performed By: #### C MP, MG #### [place] [address] Ph. [phone] Lymphocytes (Bld) [#/Vol] 2.1 10*3/uL Normal 1.0-4.0 [facility] Comment on above: Performed By: #### C MP, MG #### [place] [address] Ph. [phone] Lymphocytes/100 WBC (Bld) 24 % Normal 20-40 [facility] Comment on above: Performed By: #### C MP, MG #### [place] [address] Ph. [phone] MCH (RBC) [Entitic mass] 29.6 pg Normal 27.0-35.0 [facility] Comment on above: Performed By: #### C MP, MG #### [place] [address] Ph. [phone] MCHC (RBC) [Mass/Vol] 33.2 g/dL Normal 32.0-36.0 [facility] Comment on above: Performed By: #### C MP, MG #### [place] [address] Ph. [phone] MCV (RBC) [Entitic vol] 89 fL Normal 80-100 [facility] Comment on above: Performed By: #### C MP, MG #### [place] [address] Ph. [phone] Monocytes (Bld) [#/Vol] 1 10*3/uL Normal 0.3-1.0 [facility] Comment on above: Performed By: #### C MP, MG #### [place] [address] Ph. [phone] Monocytes/100 WBC (Bld) 11 % Normal 1-15 [facility] Comment on above: Performed By: #### C MP, MG #### [place] [address] Ph. [phone] Neutrophils (Bld) [#/Vol] 5.6 10*3/uL Normal 1.8-7.7 [facility] Comment on above: Performed By: #### C MP, MG #### [place] [address] Ph. [phone] Neutrophils/100 WBC (Bld) 63 % Normal 50-70 [facility] Comment on above: Performed By: #### C MP, MG #### [address] [address] Ph. [phone] Platelet mean volume (Bld) [Entitic vol] 10.5 fL Normal 9.4-12.3 [facility] Comment on above: Performed By: #### C MP, MG #### [place] [address] Ph. [phone] Platelets (Bld) [#/Vol] 198 10*3/uL Normal 150-450 [facility] Comment on above: Performed By: #### C MP, MG #### [place] [address] Ph. [phone] RBC (Bld) [#/Vol] 4.49 10*6/uL Low 4.70-6.10 [facility] Comment on above: Performed By: #### C MP, MG #### [place] [address] Ph. [phone] WBC (Bld) [#/Vol] 8.9 10*3/uL Normal 3.7-11.0 [facility] Comment on above: Performed By: #### C MP, MG #### [place] [address] Ph. [phone] Comprehensive Metabolic Pane adan 05-15-2021 Albumin [Mass/Vol] 4.0 g/dL Normal 3.5-5.0 [facility] Comment on above: Performed By: #### C MP #### [address] [address] Ph. [phone] ALP [Catalytic activity/Vol] 161 U/L High 38-126 [facility] Comment on above: Performed By: #### C MP #### [address] [address] Ph. [phone] ALT [Catalytic activity/Vol] 27 U/L Normal 0-50 [facility] Comment on above: Performed By: #### C MP #### [place] [address] Ph. [phone] AST [Catalytic activity/Vol] 33 U/L Normal 17-59 [facility] Comment on above: Performed By: #### C MP #### [place] [address] Ph. [phone] Bilirubin [Mass/Vol] 0.4 mg/dL Normal 0.2-1.3 [facility] Comment on above: Performed By: #### C MP #### [place] [address] Ph. [phone] Calcium [Mass/Vol] 9.2 mg/dL Normal 8.4-10.2 [facility] Comment on above: Performed By: #### C MP #### [place] [address] Ph. [phone] Chloride [Moles/Vol] 102 mmol/L Normal 98-107 [facility] Comment on above: Performed By: #### C MP #### [place] [address] Ph. [phone] CO2 [Moles/Vol] 29 mmol/L Normal 22-32 [facility] Comment on above: Performed By: #### C MP #### [place] [address] Ph. [phone] Creatinine [Mass/Vol] 0.62 mg/dL Low 0.66-1.25 [facility] Comment on above: Performed By: #### C MP #### [place] [address] Ph. [phone] GFR/1.73 sq M.predicted among non-blacks MDRD (S/P/Bld) [Vol rate/Area] 106 mL/min/{1.73_m2} Normal >60 [facility] Comment on above: Result Comment: Stag e 1 Kidney damage (e.g., protein in the urine) with normal GFR >=90\X0D0A\Stage 2 Kidney damage with mild decrease in GFR 60-89\X0D0A\Stage 3a Moderate decrease in GFR 45-59\X0D0A\Stage 3b Moderate decrease in GFR 30-44\X0D0A\Stage 4 Severe reduction in GFR 15-29\X0D0A\Stage 5 Kidney failure <15 Performed By: #### C MP #### [place] [address] Ph. [phone] Glucose [Mass/Vol] 104 mg/dL High 65-100 [facility] Comment on above: Performed By: #### C MP #### [place] [address] Ph. [phone] Potassium [Moles/Vol] 3.8 mmol/L Normal 3.6-5.0 [facility] Comment on above: Performed By: #### C MP #### [place] [address] Ph. [phone] Protein [Mass/Vol] 7.2 g/dL Normal 6.3-8.2 [facility] Comment on above: Performed By: #### C MP #### [place] [address] Ph. [phone] Sodium [Moles/Vol] 142 mmol/L Normal 135-145 [facility] Comment on above: Performed By: #### C MP #### [place] [address] Ph. [phone] Urea nitrogen [Mass/Vol] 12 mg/dL Normal 9-20 [facility] Comment on above: Performed By: #### C MP #### [place] [address] Ph. [phone] Culture, Urineon 05-15-2021 Culture, Urine USOURCE: Clean Catch Midstream Preliminary Result: No Growth 24 Hours CULTURE: No Growth at 48 Hours Normal [facility] Comment on above: Performed By: #### C MP, MG #### [address] [address] Ph. [phone] Folateon 05-15-2021 FOL >20.00 Normal 2.76-20.00 [facility] Comment on above: Result Comment: The normal range for adults (18-65) is 2.76->20.00 ng/mL.\X0D0A\The normal range for folate deficient patients is 1.04-2.79 ng/mL. Performed By: #### C MP #### [address] [address] Ph. [phone] GGTon 05-15-2021 Gamma glutamyl transferase [Catalytic activity/Vol] 122 U/L High 10-78 [facility] Comment on above: Performed By: #### C MP, MG #### [place] [address] Ph. [phone] LEVETIRACETAM LEVELon 2020 levETIRAcetam [Mass/Vol] 55.3 ug/mL High 12.0-46.0 [facility] Comment on above: Order Comment: [facility] performed at: [facility], [facility], [address] [place] [address], , Emissions Engineer: Vinod Cotto M.D., Ph\X0D0A\[facility] Collection Date/Time: [id number]\X0D0A\[facility] Results Received Date/Time: [id number]\X0D0A\[facility] Reported Date/Time: [id number] Result Comment: \X0D 0A\Toxic level is not well established. Interpretation\X0D0A\should include a clinical evaluation.\X0D0A\ \X0D0A\For additional information, please refer to\X0D0A\[email or web address].[employer]/faq/[email or web address]\X0D0A\( This link is being provided for informational/\X0D0A\educational purposes only.)\X0D0A\ \X0D0A\This test was developed and its analytical performance\X0D0A\characteristics have been determined by [facility] It has\X0D0A\not been cleared or approved by the U.S. Food and Drug\X0D0A\Administration. This assay has been validated pursuant\X0D0A\to the CLIA regulations and is used for clinical\X0D0A\purposes.\X0D0A\ Performed By: #### C MP, MG #### [place] [address] Ph. [phone] PHENOBARBITAL LEVELon 2020 PHENobarbital [Mass/Vol] 33.7 ug/mL Normal 15.0-40.0 [facility] Comment on above: Order Comment: [facility] performed at: [facility], [address] [place] [address], , Emissions Engineer: Vinod Cotto M.D., Ph\X0D0A\[facility] Collection Date/Time: [id number]\X0D0A\[facility] Results Received Date/Time: [id number]\X0D0A\[facility] Reported Date/Time: [id number] Performed By: #### C MP, MG #### [place] [address] Ph. [phone] Phenytoinon 05-15-2021 Phenytoin [Mass/Vol] 7.5 ug/mL Low 10.0-20.0 [facility] Comment on above: Order Comment: [facility] performed at: [facility], [address] [place], [place], , Emissions Engineer: Vinod Cotto M.D., Ph\X0D0A\[facility] Collection Date/Time: [id number]\X0D0A\[facility] Results Received Date/Time: [id number]\X0D0A\[facility] Reported Date/Time: Performed By: #### C MP, MG #### [address] [address] Ph. [phone] TSH Reflex FT4on 05-15-2021 TSH 1.030 mIU/mL Normal 0.470-4.680 [facility] Comment on above: Performed By: #### C MP, MG #### [address] [address] Ph. [phone] Urinalysis, Complete reflex to cultureon 05-15-2021 BACT None Seen Normal [facility] Comment on above: Performed By: #### C MP, MG #### [address] [address] Ph. [phone] UBIL Negative Normal Negative [facility] Comment on above: Performed By: #### C MP, MG #### [address] [address] Ph. [phone] UBLO Negative Normal Negative [facility] Comment on above: Performed By: #### C MP, MG #### [address] [address] Ph. [phone] UCLAR Clear Normal [facility] Comment on above: Performed By: #### C MP, MG #### [address] [address] Ph. [phone] UCOL Yellow Normal [facility] Comment on above: Performed By: #### C MP, MG #### [address] [address] Ph. [phone] UGLU Negative Normal Negative [facility] Comment on above: Performed By: #### C MP, MG #### [address] [address] Ph. [phone] UKET Negative Normal Negative [facility] Comment on above: Performed By: #### C MP, MG #### [address] [address] Ph. [phone] ULEU Negative Normal Negative [facility] Comment on above: Performed By: #### C MP, MG #### [place] [address] Ph. [phone] UNIT Negative Normal Negative [facility] Comment on above: Performed By: #### C MP, MG #### [place] [address] Ph. [phone] UPH 6.0 Normal 5.0-7.0 [facility] Comment on above: Performed By: #### C MP, MG #### [address] [address] Ph. [phone] UPRO Negative Normal Negative [facility] Comment on above: Performed By: #### C MP, MG #### [address] [address] Ph. [phone] URBC Occasional Normal [facility] Comment on above: Performed By: #### C MP, MG #### [address] [address] Ph. [phone] USG 1.025 Normal 1.005-1.030 [facility] Comment on above: Performed By: #### C MP, MG #### [address] [address] Ph. [phone] UURO 0.2 E.U./dL Normal 0.2-1.0 [facility] Comment on above: Performed By: #### C MP, MG #### [address] [address] Ph. [phone] UWBC Occasional Normal [facility] Comment on above: Performed By: #### C MP, MG #### [address] [address] Ph. [phone] Vitamin B12on 05-15-2021 Cobalamin (Vitamin B12) [Mass/Vol] 258 pg/mL Normal 239-900 [facility] Comment on above: Performed By: #### C MP #### [address] [phone] CERVICAL SPINE WITHOUT CO NTRAST 3Don 05-13-2021 CT CERVICAL SPINE WITHOUT CONTRAST 3D EXAMINATION: CT CERVICAL SPINE WITHOUT CONTRAST 3D HISTORY: ORDERING SYSTEM PROVIDED HISTORY: closed head injury, TECHNOLOGIST PROVIDED HISTORY: Injury/Trauma Reason for exam: closed head injury Encounter Type: Initial Mechanism of injury: none ORDERING SYSTEM PROVIDED DIAGNOSIS CODES: COMPARISON: CT cervical spine May 11, 2021. TECHNIQUE: Dose reduction techniques were achieved by using automated exposure control and/or adjustment of mA and/or kV according to patient size and/or use of iterative reconstruction technique. Coronal and sagittal MIP (maximum intensity projection) images were performed. Unenhanced CT images of the cervical spine with sagittal and coronal reformations. FINDINGS: There is no acute fracture, traumatic malalignment or retropharyngeal space swelling/fluid collections. There is again multilevel hypertrophic facet osteoarthritis. Osteoarthritis is severe at C2-3 and C3-4 on the left. At C3-4, there are again large subchondral cystic changes involving the articular facet centered at the facet joint. There are again multilevel degenerative disc changes. There is hypertrophic arthritic changes at the C1-dens articulation with stable small smooth bone fragments. Small portions of the lung apices visible show no acute findings. IMPRESSION: 1. No acute cervical spine fracture or traumatic malalignment. 2. Multilevel hypertrophic facet osteoarthritis, severe on the right at C2-3 and C3-4 associated with subchondral cystic changes involving the articular facets. 3. Multilevel degenerative disc changes. [employer] Workstation ID: [id number] Dictated by: CYRUS IBRAHIM on MonMay 13, 2021 3:49:41 PM EDT Transcribed by: VENITA ZENG on MonMay 13, 2021 3:55:43 PM EDT Finalized by: CYRUS IBRAHIM on MonMay 13, 2021 4:09:34 PM EDT [facility] Comment on above: Order Comment: Injur y/Trauma or Illness?:Injury/Trauma How long have you had these symptoms (acute/chronic)?:Acute Reason for exam?:closed head injury Type of Exam?:Initial Mechanism of injury?:none CT HEAD OR BRAIN WITHOUT CON TRASTon 05-13-2021 CT HEAD OR BRAIN WITHOUT CONTRAST EXAMINATION: CT HEAD OR BRAIN WITHOUT CONTRAST HISTORY: ORDERING SYSTEM PROVIDED HISTORY: head injury, TECHNOLOGIST PROVIDED HISTORY: Injury/Trauma Reason for exam: head injury Encounter Type: Initial Mechanism of injury: none ORDERING SYSTEM PROVIDED DIAGNOSIS CODES: COMPARISON: CT head May 11, 2021. TECHNIQUE: CT examination of the head without IV contrast. Dose reduction techniques were achieved by using automated exposure control and/or adjustment of mA and/or kV according to patient size and/or use of iterative reconstruction technique. FINDINGS: There are no findings of intracranial hemorrhage or extra-axial fluid collections. The ventricles are normal size and configuration with mild generalized age-related volume loss of the brain. Small physiologic calcifications are again noted in the right basal ganglia. The mclaughlin-white matter interface is intact with no mass effect or shift of the midline indicators. There is no skull fracture. There is mild scalp swelling along lower frontal bone. Intraorbital contents show no gross abnormality on the unenhanced study. There is a remote fracture deformity of the nasal bone. IMPRESSION: 1. No acute intracranial process. Negative for intracranial hemorrhage. 2. No skull fracture. 3. Remote fracture deformity of the nasal bone. [employer] Workstation ID: [id number] Dictated by: CYRUS IBRAHIM on MonMay 13, 2021 3:44:32 PM EDT Transcribed by: VENITA ZENG on MonMay 13, 2021 3:50:24 PM EDT Finalized by: CYRUS IBRAHIM on Anne-Marie May 13, 2021 4:09:38 PM EDT [facility] Comment on above: Order Comment: Injur y/Trauma or Illness?:Injury/Trauma How long have you had these symptoms (acute/chronic)?:Acute Reason for exam?:head injury Type of Exam?:Initial Mechanism of injury?:none XR CHEST PA/APon 05-13-2021 XR CHEST PA/AP EXAMINATION: XR CHEST PA/AP 05/13/2021 3:47 pm HISTORY: ORDERING SYSTEM PROVIDED HISTORY: generalized weakness, TECHNOLOGIST PROVIDED HISTORY: Injury/Trauma Reason for exam: Recent fall Cancer History: n Surgery, RadiationHistory: n Encounter Type: Initial Mechanism of injury: Recent fall ORDERING SYSTEM PROVIDED DIAGNOSIS CODES: FINDINGS: LUNGS: No significant pulmonary parenchymal abnormalities. VASCULATURE: No increased pulmonary vasculature. PLEURA: No pneumothorax, effusion, or pleural thickening. CARDIAC: Prominent heart size MEDIASTINUM: No visible mass or adenopathy. BONES: Multiple remote right rib fractures OTHER: Negative. IMPRESSION: No acute disease Workstation ID: [id number] Dictated by: QING BANKS on MonMay 13, 2021 3:58:53 PM EDT Transcribed by: QING BANKS on MonMay 13, 2021 3:58:53 PM EDT Finalized by: QING BANKS on MonMay 13, 2021 3:58:53 PM EDT [facility] Comment on above: Order Comment: Injur y/Trauma or Illness?:Injury/Trauma How long have you had these symptoms (acute/chronic)?:Acute Reason for exam?:Recent fall History of cancer?:n Surgeries, chemotherapy, or radiation?:n Type of Exam?:Initial Mechanism of injury?:Recent fall XR SHOULDER RIGHT 2+ VIEWS ( STANDARD)on 05-13-2021 XR SHOULDER RIGHT 2+ VIEWS (STANDARD) EXAMINATION: XR SHOULDER RIGHT 2+ VIEWS (STANDARD) 05/13/2021 3:47 pm HISTORY: ORDERING SYSTEM PROVIDED HISTORY: shoulder injury, TECHNOLOGIST PROVIDED HISTORY: Injury/Trauma Reason for exam: right shoulder pain Cancer History: n Surgery, RadiationHistory: n Encounter Type: Initial Mechanism of injury: fall today ORDERING SYSTEM PROVIDED DIAGNOSIS CODES: COMPARISON: Right shoulder series July 22, 2020. TECHNIQUE: Three views of the right shoulder. FINDINGS: There are remote healed fracture deformities of the lateral right 4th and 5th ribs. There are mild AC joint degenerative changes and mild degenerative changes of the glenohumeral joint. There is no acute fracture or dislocation. IMPRESSION: 1. No acute fracture or dislocation. 2. Remote healed fracture deformities of the lateral right 4th and 5th ribs. 3. Mild right shoulder degenerative changes. [employer] Workstation ID: [id number] Dictated by: CYRUS IBRAHIM on MonMay 13, 2021 4:00:13 PM EDT Transcribed by: KEYANNA CHO on MonMay 13, 2021 4:04:20 PM EDT Finalized by: CYRUS IBRAHIM on MonMay 13, 2021 4:09:23 PM EDT [facility] Comment on above: Order Comment: Injur y/Trauma or Illness?:Injury/Trauma How long have you had these symptoms (acute/chronic)?:Acute Reason for exam?:right shoulder pain History of cancer?:n Surgeries, chemotherapy, or radiation?:n Type of Exam?:Initial Mechanism of injury?:fall today CT CERVICAL SPINE WITHOUT CO NTRASTon 05-11-2021 CT CERVICAL SPINE WITHOUT CONTRAST EXAMINATION: CT CERVICAL SPINE WITHOUT CONTRAST HISTORY: ORDERING SYSTEM PROVIDED HISTORY: Fall, unable to clear C-spine clinically, r/o C spine fx, TECHNOLOGIST PROVIDED HISTORY: Injury/Trauma Reason for exam: Fall, unable to clear C-spine clinically, r/o C spine fx Encounter Type: Initial Mechanism of injury: fall ORDERING SYSTEM PROVIDED DIAGNOSIS CODES: COMPARISON: CT head of this same day. TECHNIQUE: CT cervical spine without IV contrast. Coronal and sagittal reformations were performed. Dose reduction techniques were achieved by using automated exposure control and/or adjustment of mA and/or kV according to patient size and/or use of iterative reconstruction technique. FINDINGS: The cervical vertebral body heights are preserved. There is no acute appearing fracture. There is straightening of the upper cervical lordosis. There is no spondylolisthesis. There is mild multilevel intervertebral disc height loss with anterior vertebral spur formation. There is multilevel uncovertebral and facet joint hypertrophy. The prevertebral soft tissues are normal in caliber. There is no apical pneumothorax. IMPRESSION: No acute cervical spine fracture. Workstation ID: [id number] Dictated by: MARGY SCHULTZ on MonMay 11, 2021 2:46:18 PM EDT Transcribed by: MARGY SCHULTZ on MonMay 11, 2021 2:46:18 PM EDT Finalized by: MARGY SCHULTZ on MonMay 11, 2021 2:46:18 PM EDT [facility] Comment on above: Order Comment: Injur y/Trauma or Illness?:Injury/Trauma How long have you had these symptoms (acute/chronic)?:Acute Reason for exam?:Fall, unable to clear C-spine clinically, r/o C spine fx Type of Exam?:Initial Mechanism of injury?:fall CT HEAD OR BRAIN WITHOUT CON TRASTon 05-11-2021 CT HEAD OR BRAIN WITHOUT CONTRAST EXAMINATION: CT HEAD OR BRAIN WITHOUT CONTRAST HISTORY: ORDERING SYSTEM PROVIDED HISTORY: Fall with head injury, eval for ICH, TECHNOLOGIST PROVIDED HISTORY: Injury/Trauma Reason for exam: Fall with head injury, eval for ICH Encounter Type: Initial Mechanism of injury: fall ORDERING SYSTEM PROVIDED DIAGNOSIS CODES: COMPARISON: CT head 03/24/2020. TECHNIQUE: CT examination of the head without IV contrast. Dose reduction techniques were achieved by using automated exposure control and/or adjustment of mA and/or kV according to patient size and/or use of iterative reconstruction technique. FINDINGS: There are involutional changes with commensurate prominence of the CSF spaces. The basilar cisterns are preserved. There is low attenuation throughout the subcortical white matter, unchanged and likely the sequela of chronic microvascular ischemic disease. There is no acute territorial infarct visible on today's exam. There is no intracranial hemorrhage. There is no visible cerebral edema or space-occupying mass. There is no midline shift. There is no visible skull fracture. There is chronic appearing deformity of the nasal bones there is no paranasal sinus air-fluid level. There is no mastoid or middle ear effusion. IMPRESSION: No acute intracranial pathology or skull fracture. No significant change from 03/2020 Workstation ID: [id number] Dictated by: MARGY SCHULTZ on MonMay 11, 2021 2:42:25 PM EDT Transcribed by: MARGY SCHULTZ on MonMay 11, 2021 2:42:25 PM EDT Finalized by: MARGY SCHULTZ on MonMay 11, 2021 2:42:25 PM EDT [facility] Comment on above: Order Comment: Injur y/Trauma or Illness?:Injury/Trauma How long have you had these symptoms (acute/chronic)?:Acute Reason for exam?:Fall with head injury, eval for ICH Type of Exam?:Initial Mechanism of injury?:fall CT MAXILLOFACIAL WITHOUT CON TRASTon 05-11-2021 CT MAXILLOFACIAL WITHOUT CONTRAST EXAMINATION: CT MAXILLOFACIAL WITHOUT CONTRAST HISTORY: ORDERING SYSTEM PROVIDED HISTORY: Fall with facial injury, primarily to nose, eval for additional fracture/trauma, TECHNOLOGIST PROVIDED HISTORY: Injury/Trauma Reason for exam: Fall with facial injury, primarily to nose, eval for additional fracture/trauma Encounter Type: Initial Mechanism of injury: fall ORDERING SYSTEM PROVIDED DIAGNOSIS CODES: COMPARISON: CT head 05/11/2021. CT head 04/19/2021. TECHNIQUE: CT examination of the facial bones without IV contrast. Dose reduction techniques were achieved by using automated exposure control and/or adjustment of mA and/or kV according to patient size and/or use of iterative reconstruction technique. FINDINGS: There is chronic deformity of the nasal bones that is unchanged from previous exams with some cortical thickening and nasal septal involvement. No acute appearing facial fracture is seen on today's exam. There is no temporomandibular joint dislocation. There is no paranasal sinus air-fluid level. There is no mastoid or middle ear effusion. The ocular globes are symmetric and within normal limits. There is no retrobulbar hematoma. There is no large facial soft tissue hematoma. IMPRESSION: Chronic nasal bone deformities. No acute fracture. Workstation ID: [id number] Dictated by: MARGY SCHULTZ on MonMay 11, 2021 2:50:22 PM EDT Transcribed by: MARGY SCHULTZ on MonMay 11, 2021 2:50:22 PM EDT Finalized by: MARGY SCHULTZ on MonMay 11, 2021 2:50:22 PM EDT [facility] Comment on above: Order Comment: Injur y/Trauma or Illness?:Injury/Trauma How long have you had these symptoms (acute/chronic)?:Acute Reason for exam?:Fall with facial injury, primarily to nose, eval for additional fracture/trauma Type of Exam?:Initial Mechanism of injury?:fall Culture, Urineon 04-30-2021 Culture, Urine USOURCE: Clean Catch Midstream Preliminary Result: No Growth 24 Hours COL: 20,000 cfu/ml (Isolate 1) Gram Positive Cocci Preliminary Result: ID and Sensitivity to Follow CULTURE: Enterococcus faecalis (Isolate 1) ORGANISM ID: [id number] Enterococcus faecalis (Isolate 1) ANTIBIOTIC INTERPRETATION STATUS Ampicillin/Sulbactam <=8/4 F Ampicillin <=2 SUSCEPTIBLE F Amoicillin/K Clavulanate <=4/2 F Azithromycin N/R F Ceftriaxone >32 F Clindamycin >4 F Cefazolin 16 F Ciprofloxacin <=1 SUSCEPTIBLE F Erythromycin <=0.25 F Nitrofurantoin <=32 SUSCEPTIBLE F Gentamicin High Level Synergy <=500 SUSCEPTIBLE F Levofloxacin <=1 SUSCEPTIBLE F Linezolid <=2 SUSCEPTIBLE F Oxacillin >2 F Penicillin 2 SUSCEPTIBLE F Piperacillin/Tazobactam <=4 F Rifampin <=1 SUSCEPTIBLE F Streptomycin High Level Synergy <=1000 SUSCEPTIBLE F Trimeth/Sulfa <=0.5/9.5 F Tetracycline >8 Resistant F Vancomycin 1 SUSCEPTIBLE F Invalid Interpretation Code [facility] Comment on above: Performed By: #### C MP, MG #### [place] [address] Ph. [phone] Urinalysis, Complete reflex to cultureon 04-30-2021 BACT None Seen Normal [facility] Comment on above: Order Comment: SPECI FY(EX-CATH,MIDSTREAM,CYSTO,ETC)?->clean catch with hat Performed By: #### C MP, MG #### [place] [address] Ph. [phone] MUCS None Seen Normal [facility] Comment on above: Order Comment: SPECI FY(EX-CATH,MIDSTREAM,CYSTO,ETC)?->clean catch with hat Performed By: #### C MP, MG #### [place] [address] Ph. [phone] SQEPI None Seen Normal [facility] Comment on above: Order Comment: SPECI FY(EX-CATH,MIDSTREAM,CYSTO,ETC)?->clean catch with hat Performed By: #### C MP, MG #### [place] [address] Ph. [phone] UBIL Negative Normal Negative [facility] Comment on above: Order Comment: SPECI FY(EX-CATH,MIDSTREAM,CYSTO,ETC)?->clean catch with hat Performed By: #### C MP, MG #### [place] [address] Ph. [phone] UBLO Trace-intact Abnormal Negative [facility] Comment on above: Order Comment: SPECI FY(EX-CATH,MIDSTREAM,CYSTO,ETC)?->clean catch with hat Performed By: #### C MP, MG #### [place] [address] Ph. [phone] UCLAR Clear Normal [facility] Comment on above: Order Comment: SPECI FY(EX-CATH,MIDSTREAM,CYSTO,ETC)?->clean catch with hat Performed By: #### C MP, MG #### [place] [address] Ph. [phone] UCOL Yellow Normal [facility] Comment on above: Order Comment: SPECI FY(EX-CATH,MIDSTREAM,CYSTO,ETC)?->clean catch with hat Performed By: #### C MP, MG #### [place] [address] Ph. [phone] UGLU Negative Normal Negative [facility] Comment on above: Order Comment: SPECI FY(EX-CATH,MIDSTREAM,CYSTO,ETC)?->clean catch with hat Performed By: #### C MP, MG #### [place] [address] Ph. [phone] UKET Negative Normal Negative [facility] Comment on above: Order Comment: SPECI FY(EX-CATH,MIDSTREAM,CYSTO,ETC)?->clean catch with hat Performed By: #### C MP, MG #### [place] [address] Ph. [phone] ULEU Trace Abnormal Negative [facility] Comment on above: Order Comment: SPECI FY(EX-CATH,MIDSTREAM,CYSTO,ETC)?->clean catch with hat Performed By: #### C MP, MG #### [address] [phone] UNIT Negative Normal Negative [facility] Comment on above: Order Comment: SPECI FY(EX-CATH,MIDSTREAM,CYSTO,ETC)?->clean catch with hat Performed By: #### C MP, MG #### [address] [phone] UPH 5.5 Normal 5.0-7.0 [facility] Comment on above: Order Comment: SPECI FY(EX-CATH,MIDSTREAM,CYSTO,ETC)?->clean catch with hat Performed By: #### C MP, MG #### [place] [address] Ph. [phone] UPRO Negative Normal Negative [facility] Comment on above: Order Comment: SPECI FY(EX-CATH,MIDSTREAM,CYSTO,ETC)?->clean catch with hat Performed By: #### C MP, MG #### [address] [phone] URBC 0-2 Normal [facility] Comment on above: Order Comment: SPECI FY(EX-CATH,MIDSTREAM,CYSTO,ETC)?->clean catch with hat Performed By: #### C MP, MG #### [place] [address] Ph. [phone] USG 1.025 Normal 1.005-1.030 [facility] Comment on above: Order Comment: SPECI FY(EX-CATH,MIDSTREAM,CYSTO,ETC)?->clean catch with hat Performed By: #### C MP, MG #### [place] [address] Ph. [phone] UURO 0.2 E.U./dL Normal 0.2-1.0 [facility] Comment on above: Order Comment: SPECI FY(EX-CATH,MIDSTREAM,CYSTO,ETC)?->clean catch with hat Performed By: #### C MP, MG #### [address] [address] Ph. [phone] UWBC 51-75 Normal [facility] Comment on above: Order Comment: SPECI FY(EX-CATH,MIDSTREAM,CYSTO,ETC)?->clean catch with hat Performed By: #### C MP, MG #### [address] [phone] ABDOMEN PELVIS WO CONTRAS Ton 04-19-2021 CT ABDOMEN PELVIS WO CONTRAST RADRPT EXAM: CT ABDOMEN PELVIS WO CONTRAST HISTORY: Abdominal pain. Incontinence. COMPARISON: 07/24/2020 Technique: Axial unenhanced CT images through the abdomen and pelvis.IV contrast was not given. Oral contrast was not administered. Individualize dose optimization technique was used for the performed procedure by employing the following: Automated exposure control, adjustment of the mA and/or kV according to patient's size, and/or the use of the iterative construction technique. FINDINGS: Lung bases demonstrate small bilateral pleural effusions. There is a small hiatal hernia. There is mild fatty infiltration of the liver. The gallbladder is folded on itself with mild apparent gallbladder wall edema. The visualized portions of the liver, gallbladder, spleen, pancreas, kidneys and adrenals are otherwise unremarkable for a noncontrasted exam. No significant lymphadenopathy, free fluid or air is seen.There is moderate retained stool. There are scattered air-fluid levels in the small bowel. The visualized loops of unopacified bowel otherwise appear normal. Vascular calcifications and degenerative changes of the spine are observed. The urinary bladder is partially distended and appears unremarkable. There is a small fat-containing periumbilical hernia. Report electronically signed by: Dr. Marleni King IMPRESSION: Mild apparent gallbladder wall edema. Correlation with history, physical and laboratory values is recommended. Follow-up as clinically indicated. Abdominal pain Incontinence UTI Interpreted by: Marleni Gasca DO Signed by: Marleni Gasca DO 04/19/21 Final result Normal [facility] CT HEAD WO CONTRASTon 2020 CT HEAD WO CONTRAST RADRPT HEAD CT WITHOUT CONTRAST: 04/19/2021 3:05 PM EDT Clinical Data: incontinence Comparison: 01/29/2021 Unenhanced axial data from base to vertex. INTRA-AXIAL: No acute hemorrhage. No acute infarction is evident. EXTRA-AXIAL: No acute hemorrhage. No focal fluid collection. BRAIN VOLUME: Unremarkable for age. VENTRICLES: No hydrocephalus PARANASAL SINUSES: No air-fluid levels in the included aspects. MASTOIDS: Clear. CALVARIUM: No acute finding. EXTRACALVARIAL: Again, chronic nasal fractures. The nasion is again canted to the right. Report electronically signed by: Dr. Marleni Nance IMPRESSION: 1. No evidence of acute intracranial process on this unenhanced study as described. All CT scans at this facility use dose modulation, iterative reconstruction, and/or weight based dosing when appropriate to reduce radiation dose to as low as reasonably achievable. Dosage: Difficulty urinating Interpreted by: Marleni Nance MD Signed by: Marleni Nance MD 04/19/21 Final result Normal [facility] Complete Blood Count with Au to Diffon 04-19-2021 BASO# BASO#: 0.0 Normal 0.0-0.1 [facility] Comment on above: Performed By: #### C KULDEEP MG #### [place] [address] Ph. [phone] BASO% BASO%: 0 Normal 0-1 [facility] Comment on above: Performed By: #### C MP, MG #### [place] [address] Ph. [phone] Eosinophils (Bld) [#/Vol] 0.2 10*3/uL Normal 0.0-0.5 [facility] Comment on above: Performed By: #### C MP, MG #### [place] [address] Ph. [phone] Eosinophils/100 WBC (Bld) 1 % Normal 0-5 [facility] Comment on above: Performed By: #### C MP, MG #### [address] [address] Ph. [phone] Erythrocyte distribution width (RBC) [Ratio] 12.5 % Normal 11.5-14.5 [facility] Comment on above: Performed By: #### C MP, MG #### [address] [address] Ph. [phone] Hematocrit (Bld) [Volume fraction] 42.8 % Normal 42.0-52.0 [facility] Comment on above: Performed By: #### C MP, MG #### [place] [address] Ph. [phone] Hemoglobin (Bld) [Mass/Vol] 14 g/dL Normal 13.5-17.5 [facility] Comment on above: Performed By: #### C MP, MG #### [place] [address] Ph. [phone] Lymphocytes (Bld) [#/Vol] 3.2 10*3/uL Normal 1.0-4.0 [facility] Comment on above: Performed By: #### C MP, MG #### [address] [address] Ph. [phone] Lymphocytes/100 WBC (Bld) 29 % Normal 20-40 [facility] Comment on above: Performed By: #### C MP, MG #### [place] [address]851 Ph. [phone] MCH (RBC) [Entitic mass] 29.6 pg Normal 27.0-35.0 [facility] Comment on above: Performed By: #### C MP, MG #### [address] [address] Ph. [phone] MCHC (RBC) [Mass/Vol] 32.7 g/dL Normal 32.0-36.0 [facility] Comment on above: Performed By: #### C MP, MG #### [place] [address] Ph. [phone] MCV (RBC) [Entitic vol] 91 fL Normal 80-100 [facility] Comment on above: Performed By: #### C MP, MG #### [place] [address] Ph. [phone] Monocytes (Bld) [#/Vol] 1.1 10*3/uL High 0.3-1.0 [facility] Comment on above: Performed By: #### C MP, MG #### [place] [address] Ph. [phone] Monocytes/100 WBC (Bld) 11 % Normal 1-15 [facility] Comment on above: Performed By: #### C MP, MG #### [place] [address] Ph. [phone] Neutrophils (Bld) [#/Vol] 6.3 10*3/uL Normal 1.8-7.7 [facility] Comment on above: Performed By: #### C MP, MG #### [address] [address] Ph. [phone] Neutrophils/100 WBC (Bld) 58 % Normal 50-70 [facility] Comment on above: Performed By: #### C MP, MG #### [place] [address] Ph. [phone] Platelet mean volume (Bld) [Entitic vol] 10.2 fL Normal 9.4-12.3 [facility] Comment on above: Performed By: #### C MP, MG #### [address] [address] Ph. [phone] Platelets (Bld) [#/Vol] 282 10*3/uL Normal 150-450 [facility] Comment on above: Performed By: #### C MP, MG #### [address] [address] Ph. [phone] RBC (Bld) [#/Vol] 4.73 10*6/uL Normal 4.70-6.10 [facility] Comment on above: Performed By: #### C MP, MG #### [address] [address] Ph. [phone] WBC (Bld) [#/Vol] 10.8 10*3/uL Normal 3.7-11.0 [facility] Comment on above: Performed By: #### C MP, MG #### [address] [address] Ph. [phone] Comprehensive Metabolic Pane adan 04-19-2021 Albumin [Mass/Vol] 4.5 g/dL Normal 3.5-5.0 [facility] Comment on above: Performed By: #### L IP, CMP #### [address] [address] Ph. [phone] ALP [Catalytic activity/Vol] 147 U/L High 38-126 [facility] Comment on above: Performed By: #### L IP, CMP #### [address] [address] Ph. [phone] ALT [Catalytic activity/Vol] 41 U/L Normal 0-50 [facility] Comment on above: Performed By: #### L IP, CMP #### [address] [address] Ph. [phone] AST [Catalytic activity/Vol] 32 U/L Normal 17-59 [facility] Comment on above: Performed By: #### L IP, CMP #### [address] [address] Ph. [phone] Bilirubin [Mass/Vol] 0.4 mg/dL Normal 0.2-1.3 [facility] Comment on above: Performed By: #### L IP, CMP #### [place] [address] Ph. [phone] Calcium [Mass/Vol] 9.4 mg/dL Normal 8.4-10.2 [facility] Comment on above: Performed By: #### L IP, CMP #### [place] [address] Ph. [phone] Chloride [Moles/Vol] 101 mmol/L Normal 98-107 [facility] Comment on above: Performed By: #### L IP, CMP #### [place] [address] Ph. [phone] CO2 [Moles/Vol] 30 mmol/L Normal 22-32 [facility] Comment on above: Performed By: #### L IP, CMP #### [place] [address] Ph. [phone] Creatinine [Mass/Vol] 0.69 mg/dL Normal 0.66-1.25 [facility] Comment on above: Performed By: #### L IP, CMP #### [place] [address] Ph. [phone] GFR/1.73 sq M.predicted among non-blacks MDRD (S/P/Bld) [Vol rate/Area] 102 mL/min/{1.73_m2} Normal >60 [facility] Comment on above: Result Comment: Stag e 1 Kidney damage (e.g., protein in the urine) with normal GFR >=90\X0D0A\Stage 2 Kidney damage with mild decrease in GFR 60-89\X0D0A\Stage 3a Moderate decrease in GFR 45-59\X0D0A\Stage 3b Moderate decrease in GFR 30-44\X0D0A\Stage 4 Severe reduction in GFR 15-29\X0D0A\Stage 5 Kidney failure <15 Performed By: #### L IP, CMP #### [place] [address] Ph. [phone] Glucose [Mass/Vol] 106 mg/dL High 65-100 [facility] Comment on above: Performed By: #### L IP, CMP #### [place] [address] Ph. [phone] Potassium [Moles/Vol] 4.4 mmol/L Normal 3.6-5.0 [facility] Comment on above: Performed By: #### L IP, CMP #### [place] [address] Ph. [phone] Protein [Mass/Vol] 8.4 g/dL High 6.3-8.2 [facility] Comment on above: Performed By: #### L IP, CMP #### [place] [address] Ph. [phone] Sodium [Moles/Vol] 142 mmol/L Normal 135-145 [facility] Comment on above: Performed By: #### L IP, CMP #### [place] [address] Ph. [phone] Urea nitrogen [Mass/Vol] 13 mg/dL Normal 9-20 [facility] Comment on above: Performed By: #### L IP, CMP #### [place] [address] Ph. [phone] Culture, Urineon 04-19-2021 Culture, Urine USOURCE: Clean Catch Midstream Preliminary Result: No Growth 24 Hours CULTURE: <10,000 colonies/cc. No further Identification Invalid Interpretation Code [facility] Comment on above: Performed By: #### C MP, MG #### [place] [address] Ph. [phone] Lipaseon 04-19-2021 LIP 96 IU/L Normal 23-300 [facility] Comment on above: Performed By: #### L IP, CMP #### [address] [address] Ph. [phone] Urinalysis Completeon 2020 BACT None Seen Normal [facility] Comment on above: Performed By: #### C MP, MG #### [address] [address] Ph. [phone] UBIL Negative Normal Negative [facility] Comment on above: Performed By: #### C MP, MG #### [address] [address] Ph. [phone] UBLO Negative Normal Negative [facility] Comment on above: Performed By: #### C MP, MG #### [address] [address] Ph. [phone] UCLAR Clear Normal [facility] Comment on above: Performed By: #### C MP, MG #### [address] [address] Ph. [phone] UCOL Yellow Normal [facility] Comment on above: Performed By: #### C MP, MG #### [address] [address] Ph. [phone] UGLU Negative Normal Negative [facility] Comment on above: Performed By: #### C MP, MG #### [address] [address] Ph. [phone] UKET Negative Normal Negative [facility] Comment on above: Performed By: #### C MP, MG #### [address] [address] Ph. [phone] ULEU Negative Normal Negative [facility] Comment on above: Performed By: #### C MP, MG #### [address] [place] [address] Ph. [phone] UNIT Negative Normal Negative [facility] Comment on above: Performed By: #### C MP, MG #### [place] [address] Ph. [phone] UPH 6.0 Normal 5.0-7.0 [facility] Comment on above: Performed By: #### C MP, MG #### [place] [address] Ph. [phone] UPRO Negative Normal Negative [facility] Comment on above: Performed By: #### C MP, MG #### [place] [address] Ph. [phone] URBC None Seen Normal [facility] Comment on above: Performed By: #### C MP, MG #### [place] [address] Ph. [phone] USG 1.020 Normal 1.005-1.030 [facility] Comment on above: Performed By: #### C MP, MG #### [place] [address] Ph. [phone] UURO 0.2 E.U./dL Normal 0.2-1.0 [facility] Comment on above: Performed By: #### C MP, MG #### [place] [address] Ph. [phone] UWBC None Seen Normal [facility] Comment on above: Performed By: #### C MP, MG #### [place] [address] Ph. [phone] Basic Metabolic Panelon 08-15 Calcium [Mass/Vol] 9.3 mg/dL 8.4 - 10. 2 mg/dL [facility], [place] Chloride [Moles/Vol] 101 mmol/L [place], [place] CO2 [Moles/Vol] 31 mmol/L [facility] [place], [place] Creatinine [Mass/Vol] 0.77 mg/dL 0.66 - 1.25 mg/dL [place], [place] GFR/1.73 sq M predicted among non-blacks MDRD (S/P/Bld) [Vol rate/Area] 98 mL/min/{1.73_m2} >60 mL/min/1.73m2 [place], [place] Comment on above: Stage 1 Kidney damage (e.g., protein in the urine) with normal GFR >=90 Stage 2 Kidney damage with mild decrease in GFR 60-89 Stage 3a Moderate decrease in GFR 45-59 Stage 3b Moderate decrease in GFR 30-44 Stage 4 Severe reduction in GFR 15-29 Stage 5 Kidney failure <15 Glucose [Mass/Vol] 93 mg/dL 65 - 100 mg/dL [place], [place] Interpretation and review of laboratory results Abnormal [place] Potassium [Moles/Vol] 4.6 mmol/L [place] Sodium [Moles/Vol] 141 mmol/L [place] Urea nitrogen [Mass/Vol] 7 mg/dL Low 9 - 20 mg/dL [place] CBC Auto Differentialon 08-15 Basophils (Bld) [#/Vol] 0.0 10*3/uL [place] Basophils/100 WBC (Bld) 1 % 0 - 1 % [place] Eosinophils (Bld) [#/Vol] 0.2 10*3/uL [place] Eosinophils/100 WBC (Bld) 2 % 0 - 5 % [place] Erythrocyte distribution width (RBC) [Ratio] 14.3 % 11.5 - 14.5 % [place] Hematocrit (Bld) [Volume fraction] 40.2 % Low 42 - 52 % [place] Hemoglobin (Bld) [Mass/Vol] 12.7 g/dL Low 13.5 - 17.5 g/dL [place] Interpretation and review of laboratory results Abnormal [place] Lymphocytes (Bld) [#/Vol] 2.9 10*3/uL [place] Lymphocytes/100 WBC (Bld) 36 % 20 - 40 % [place] MCH (RBC) [Entitic mass] 28.5 pg 27 - 35 pg [place] MCHC (RBC) [Mass/Vol] 31.6 g/dL Low 32 - 36 g/dL [place] MCV (RBC) [Entitic vol] 90 fL 80 - 100 fL [place] Monocytes (Bld) [#/Vol] 0.8 10*3/uL [place] Monocytes/100 WBC (Bld) 10 % 1 - 15 % [place] Neutrophils Absolute 4.2 [place] Neutrophils/100 WBC (Bld) 51 % 50 - 70 % [place] Platelet mean volume (Bld) [Entitic vol] 10.9 fL 9.4 - 12.3 fL [place], [place] Platelets (Bld) [#/Vol] 263 10*3/uL [place] RBC (Bld) [#/Vol] 4.45 10*6/uL [place], [place] WBC (Bld) [#/Vol] 8.1 10*3/uL [place] Hemoglobin A1Con 09-03-2020 Glucose [Mass/Vol] 77.5 mg/dL [place], [place] Comment on above: Estimated Average Glucose is a caluculated value from Hemoglobin A1C and is professional healthcare representative of the average blood glucose level in the last 2-3 month period. HbA1c (Bld) [Mass fraction] 4.9 % 4 - 6 % [place] Comment on above: [place] [employer] guidelines indicate that patients with HgbA1C in the range of 5.7-6.4% are at increased risk for development of diabetes, and intervention by lifestyle modification may be beneficial. HgbA1C greater than or equal to 6.5% is considered diagnostic of diabetes. Lipid Panelon 09-03-2020 Cholesterol [Mass/Vol] 135 mg/dL 100 - 200 mg/dL [place], [place] Comment on above: <200 mg/dL is recommended cholesterol level. Cholesterol in HDL [Mass/Vol] 63 mg/dL >40 [place] Cholesterol in LDL [Mass/Vol] 43 mg/dL 20 - 100 mg/dL [place] CHOLESTEROL/HDL RELATIVE RISK 2 [place] Triglyceride [Mass/Vol] 143 mg/dL 10 - 150 mg/dL [place] Gastrointestinal Panel, Jay leigh 08-18-2020 Adenovirus F 40 41 PCR Not Detected Not Detected [facility], [place] Astrovirus PCR Not Detected Not Detected [facility], [place] Campylobacter PCR Not Detected Not Detected [place] Clostridium difficile, PCR Not Detected Not Detected [facility], [place] Cryptosporidium PCR Not Detected Not Detected [facility], [place] Cyclospora Cayetanensis PCR Not Detected Not Detected [place] Entamoeba Histolytica PCR Not Detected Not Detected [place] Enteroaggregative E.coli Not Detected Not Detected [place] Enteropathogenic E. Coli (EPEC) Not Detected Not Detected [place] Enterotoxigenic E. Coli (ETEC) lt/st Not Detected Not Detected [place] Giardia Lamblia PCR Not Detected Not Detected [place] Norovirus GI GII PCR Not Detected Not Detected [place] Plesiomonas Shigelloides PCR Not Detected Not Detected [place] Rotavirus A PCR Not Detected Not Detected [place] Salmonella PCR Not Detected Not Detected [place] Sapovirus PCR Not Detected Not Detected [place] Shiga-like Toxin-producing E. Coli (STEC) stx1/stx2 Not Detected Not Detected [place] Shigella/Enteroinvas bruce E. Coli (EIEC)^ Not Detected Not Detected [place] Vibrio Cholerae PCR Not Detected Not Detected [place] Vibrio PCR Not Detected Not Detected [place] Yersinia Enterocolitica PCR Not Detected Not Detected [place] XR ABDOMEN (KUB) (SINGLE AP VIEW)on 08-18-2020 Paucity of bowel gas . Indeterminate bowel gas pattern. [place] EXAMINATION: XR ABDO MEN (KUB) (SINGLE AP VIEW) HISTORY: Generalized abdominal pain COMPARISON: No relevant comparison available. FINDINGS: BOWEL GAS PATTERN: Suture lines in the right mid abdomen. There is a paucity of air throughout the GI tract. CALCIFICATIONS: None significant. OTHER: Metallic foreign body projects over the left iliac wing consistent with a safety pin likely outside the patient. Irregularity of the ribs consistent with remote fractures Report electronically signed by: Dr. Qing Banks [place], [place], Incoming Radiant Results From [facility] - 08/18/2020 3:42 PM EST EXAMINATION: XR ABDOMEN (KUB) (SINGLE AP VIEW) HISTORY: Generalized abdominal pain COMPARISON: No relevant comparison available. FINDINGS: BOWEL GAS PATTERN: Suture lines in the right mid abdomen. There is a paucity of air throughout the GI tract. CALCIFICATIONS: None significant. OTHER: Metallic foreign body projects over the left iliac wing consistent with a safety pin likely outside the patient. Irregularity of the ribs consistent with remote fractures Report electronically signed by: Dr. Qing Banks IMPRESSION: Paucity of bowel gas. Indeterminate bowel gas pattern. [place] CBC Auto Differentialon 12-2 Basophils (Bld) [#/Vol] 0.1 10*3/uL [place] Basophils/100 WBC (Bld) 1 % 0 - 1 % [place] Eosinophils (Bld) [#/Vol] 0.3 10*3/uL [place] Eosinophils/100 WBC (Bld) 4 % 0 - 5 % [place] Erythrocyte distribution width (RBC) [Ratio] 13.4 % 11.5 - 14.5 % [place] Hematocrit (Bld) [Volume fraction] 34.3 % Low 42 - 52 % [place] Hemoglobin (Bld) [Mass/Vol] 10.9 g/dL Low 13.5 - 17.5 g/dL [place] Interpretation and review of laboratory results Abnormal [place] Lymphocytes (Bld) [#/Vol] 2.4 10*3/uL [place] Lymphocytes/100 WBC (Bld) 34 % 20 - 40 % [place] MCH (RBC) [Entitic mass] 28.5 pg 27 - 35 pg [place] MCHC (RBC) [Mass/Vol] 31.8 g/dL Low 32 - 36 g/dL [place] MCV (RBC) [Entitic vol] 90 fL 80 - 100 fL [place] Monocytes (Bld) [#/Vol] 0.8 10*3/uL [place] Monocytes/100 WBC (Bld) 11 % 1 - 15 % [place] Neutrophils Absolute 3.6 [place] Neutrophils/100 WBC (Bld) 50 % 50 - 70 % [place] Platelet mean volume (Bld) [Entitic vol] 9.9 fL 9.4 - 12.3 fL [place] Platelets (Bld) [#/Vol] 385 10*3/uL [place] RBC (Bld) [#/Vol] 3.82 10*6/uL [place] WBC (Bld) [#/Vol] 7.1 10*3/uL [place] Comprehensive Metabolic Pane l w/ Reflex to MGon 08-11-2020 Albumin [Mass/Vol] 3.5 g/dL 3.5 - 5 g/dL [place] ALP [Catalytic activity/Vol] 101 U/L 38 - 126 U/L [place] ALT [Catalytic activity/Vol] 45 U/L 0 - 50 U/L [place] AST [Catalytic activity/Vol] 32 U/L 17 - 59 U/L [place] Bilirubin Ql (U) 0.1 mg/dL Low 0.2 - 1.3 mg/dL [place] Calcium [Mass/Vol] 9.1 mg/dL 8.4 - 10. 2 mg/dL [place] Chloride [Moles/Vol] 104 mmol/L [place] CO2 [Moles/Vol] 27 mmol/L [place] Creatinine [Mass/Vol] 0.72 mg/dL 0.66 - 1.25 mg/dL [place] GFR/1.73 sq M predicted among non-blacks MDRD (S/P/Bld) [Vol rate/Area] 101 mL/min/{1.73_m2} >60 mL/min/1.73m2 [place] Comment on above: Stage 1 Kidney damage (e.g., protein in the urine) with normal GFR >=90 Stage 2 Kidney damage with mild decrease in GFR 60-89 Stage 3a Moderate decrease in GFR 45-59 Stage 3b Moderate decrease in GFR 30-44 Stage 4 Severe reduction in GFR 15-29 Stage 5 Kidney failure <15 Glucose [Mass/Vol] 106 mg/dL High 65 - 100 mg/dL [place] Interpretation and review of laboratory results Abnormal [place] Potassium [Moles/Vol] 4.3 mmol/L [place] Protein [Mass/Vol] 7.4 g/dL 6.3 - 8.2 g/dL [place] Sodium [Moles/Vol] 142 mmol/L [place] Urea nitrogen [Mass/Vol] 11 mg/dL 9 - 20 mg/dL [place] Magnesiumon 08-11-2020 Magnesium [Mass/Vol] 2.0 mg/dL 1.6 - 2 .3 mg/dL [place] CBC Auto Differentialon 07-15 Basophils (Bld) [#/Vol] 0.1 10*3/uL [place] Basophils/100 WBC (Bld) 1 % 0 - 1 % [place] Eosinophils (Bld) [#/Vol] 0.3 10*3/uL [place] Eosinophils/100 WBC (Bld) 4 % 0 - 5 % [place] Erythrocyte distribution width (RBC) [Ratio] 13.2 % 11.5 - 14.5 % [place] Hematocrit (Bld) [Volume fraction] 32.5 % Low 42 - 52 % [place] Hemoglobin (Bld) [Mass/Vol] 10.4 g/dL Low 13.5 - 17.5 g/dL [place] Interpretation and review of laboratory results Abnormal [place] Lymphocytes (Bld) [#/Vol] 2.1 10*3/uL [place] Lymphocytes/100 WBC (Bld) 32 % 20 - 40 % [place] MCH (RBC) [Entitic mass] 28.7 pg 27 - 35 pg [place] MCHC (RBC) [Mass/Vol] 32.0 g/dL 32 - 36 g/dL [place] MCV (RBC) [Entitic vol] 90 fL 80 - 100 fL [place] Monocytes (Bld) [#/Vol] 0.9 10*3/uL [place] Monocytes/100 WBC (Bld) 14 % 1 - 15 % [place] Neutrophils Absolute 3.3 [place] Neutrophils/100 WBC (Bld) 49 % Low 50 - 70 % [place] Platelet mean volume (Bld) [Entitic vol] 10.4 fL 9.4 - 12.3 fL [place] Platelets (Bld) [#/Vol] 399 10*3/uL [place] RBC (Bld) [#/Vol] 3.62 10*6/uL [place] WBC (Bld) [#/Vol] 6.7 10*3/uL [place] Comprehensive Metabolic Pane l w/ Reflex to MGon 08-10-2020 Albumin [Mass/Vol] 3.5 g/dL 3.5 - 5 g/dL [place] ALP [Catalytic activity/Vol] 110 U/L 38 - 126 U/L [place] ALT [Catalytic activity/Vol] 33 U/L 0 - 50 U/L [place] AST [Catalytic activity/Vol] 28 U/L 17 - 59 U/L [place] Bilirubin Ql (U) 0.2 mg/dL 0.2 - 1.3 mg/dL [place] Calcium [Mass/Vol] 8.8 mg/dL 8.4 - 10. 2 mg/dL [place] Chloride [Moles/Vol] 104 mmol/L [place] CO2 [Moles/Vol] 26 mmol/L [facility] [place] Creatinine [Mass/Vol] 0.75 mg/dL 0.66 - 1.25 mg/dL [place] GFR/1.73 sq M predicted among non-blacks MDRD (S/P/Bld) [Vol rate/Area] 99 mL/min/{1.73_m2} >60 mL/min/1.73m2 [place] Comment on above: Stage 1 Kidney damage (e.g., protein in the urine) with normal GFR >=90 Stage 2 Kidney damage with mild decrease in GFR 60-89 Stage 3a Moderate decrease in GFR 45-59 Stage 3b Moderate decrease in GFR 30-44 Stage 4 Severe reduction in GFR 15-29 Stage 5 Kidney failure <15 Glucose [Mass/Vol] 93 mg/dL 65 - 100 mg/dL [place] Interpretation and review of laboratory results Abnormal [place] Potassium [Moles/Vol] 3.5 mmol/L [place] Protein [Mass/Vol] 7.5 g/dL 6.3 - 8.2 g/dL [place] Sodium [Moles/Vol] 137 mmol/L [place] Urea nitrogen [Mass/Vol] 12 mg/dL 9 - 20 mg/dL [place] Magnesiumon 08-10-2020 Magnesium [Mass/Vol] 1.9 mg/dL 1.6 - 2 .3 mg/dL [place] Phosphoruson 08-10-2020 Phosphate [Mass/Vol] 4.3 mg/dL 2.5 - 4 .5 mg/dL [place] CBC Auto Differentialon 07-15 Basophils (Bld) [#/Vol] 0.1 10*3/uL [place] Basophils/100 WBC (Bld) 1 % 0 - 1 % [place] Eosinophils (Bld) [#/Vol] 0.2 10*3/uL [place] Eosinophils/100 WBC (Bld) 3 % 0 - 5 % [place] Erythrocyte distribution width (RBC) [Ratio] 13.2 % 11.5 - 14.5 % [place] Hematocrit (Bld) [Volume fraction] 31.2 % Low 42 - 52 % [place] Hemoglobin (Bld) [Mass/Vol] 10.1 g/dL Low 13.5 - 17.5 g/dL [place] Interpretation and review of laboratory results Abnormal [place] Lymphocytes (Bld) [#/Vol] 1.9 10*3/uL [place] Lymphocytes/100 WBC (Bld) 28 % 20 - 40 % [place] MCH (RBC) [Entitic mass] 28.9 pg 27 - 35 pg [place] MCHC (RBC) [Mass/Vol] 32.4 g/dL 32 - 36 g/dL [place] MCV (RBC) [Entitic vol] 89 fL 80 - 100 fL [place] Monocytes (Bld) [#/Vol] 1.0 10*3/uL [place] Monocytes/100 WBC (Bld) 14 % 1 - 15 % [place] Neutrophils Absolute 3.7 [place], [place] Neutrophils/100 WBC (Bld) 54 % 50 - 70 % [place] Platelet mean volume (Bld) [Entitic vol] 10.4 fL 9.4 - 12.3 fL [place] Platelets (Bld) [#/Vol] 375 10*3/uL [place] RBC (Bld) [#/Vol] 3.49 10*6/uL [place] WBC (Bld) [#/Vol] 6.9 10*3/uL [place] Comprehensive Metabolic Pane l w/ Reflex to MGon 08-09-2020 Albumin [Mass/Vol] 3.5 g/dL 3.5 - 5 g/dL [place] ALP [Catalytic activity/Vol] 110 U/L 38 - 126 U/L [place] ALT [Catalytic activity/Vol] 26 U/L 0 - 50 U/L [place] AST [Catalytic activity/Vol] 25 U/L 17 - 59 U/L [place] Bilirubin Ql (U) 0.3 mg/dL 0.2 - 1.3 mg/dL [place] Calcium [Mass/Vol] 8.8 mg/dL 8.4 - 10. 2 mg/dL [place] Chloride [Moles/Vol] 101 mmol/L [place] CO2 [Moles/Vol] 28 mmol/L [facility] [place] Creatinine [Mass/Vol] 0.73 mg/dL 0.66 - 1.25 mg/dL [place] GFR/1.73 sq M predicted among non-blacks MDRD (S/P/Bld) [Vol rate/Area] 100 mL/min/{1.73_m2} >60 mL/min/1.73m2 [place] Comment on above: Stage 1 Kidney damage (e.g., protein in the urine) with normal GFR >=90 Stage 2 Kidney damage with mild decrease in GFR 60-89 Stage 3a Moderate decrease in GFR 45-59 Stage 3b Moderate decrease in GFR 30-44 Stage 4 Severe reduction in GFR 15-29 Stage 5 Kidney failure <15 Glucose [Mass/Vol] 93 mg/dL 65 - 100 mg/dL [place] Potassium [Moles/Vol] 4.0 mmol/L [place] Protein [Mass/Vol] 7.4 g/dL 6.3 - 8.2 g/dL [place] Sodium [Moles/Vol] 137 mmol/L [place] Urea nitrogen [Mass/Vol] 9 mg/dL 9 - 20 mg/dL [place] Magnesiumon 08-09-2020 Magnesium [Mass/Vol] 1.8 mg/dL 1.6 - 2 .3 mg/dL [place] CBC Auto Differentialon 07-15 Basophils (Bld) [#/Vol] 0.1 10*3/uL [place] Basophils/100 WBC (Bld) 1 % 0 - 1 % [place] Eosinophils (Bld) [#/Vol] 0.2 10*3/uL [place] Eosinophils/100 WBC (Bld) 3 % 0 - 5 % [place] Erythrocyte distribution width (RBC) [Ratio] 13.1 % 11.5 - 14.5 % [place] Hematocrit (Bld) [Volume fraction] 28.5 % Low 42 - 52 % [place] Hemoglobin (Bld) [Mass/Vol] 9.2 g/dL Low 13.5 - 17.5 g/dL [place] Interpretation and review of laboratory results Abnormal [place] Lymphocytes (Bld) [#/Vol] 1.7 10*3/uL [place] Lymphocytes/100 WBC (Bld) 23 % 20 - 40 % [place] MCH (RBC) [Entitic mass] 28.8 pg 27 - 35 pg [place] MCHC (RBC) [Mass/Vol] 32.3 g/dL 32 - 36 g/dL [place] MCV (RBC) [Entitic vol] 89 fL 80 - 100 fL [place] Monocytes (Bld) [#/Vol] 1.2 10*3/uL [place] Monocytes/100 WBC (Bld) 16 % High 1 - 15 % [place] Neutrophils Absolute 4.2 [place] Neutrophils/100 WBC (Bld) 56 % 50 - 70 % [place] Platelet mean volume (Bld) [Entitic vol] 9.9 fL 9.4 - 12.3 fL [place] Platelets (Bld) [#/Vol] 364 10*3/uL [place] RBC (Bld) [#/Vol] 3.2 10*6/uL [place] WBC (Bld) [#/Vol] 7.4 10*3/uL [place] Comprehensive Metabolic Pane l w/ Reflex to MGon 08-08-2020 Albumin [Mass/Vol] 3.2 g/dL Low 3.5 - 5 g/dL [place] ALP [Catalytic activity/Vol] 95 U/L 38 - 126 U/L [place] ALT [Catalytic activity/Vol] 22 U/L 0 - 50 U/L [place] AST [Catalytic activity/Vol] 24 U/L 17 - 59 U/L [place] Bilirubin Ql (U) 0.2 mg/dL 0.2 - 1.3 mg/dL [place] Calcium [Mass/Vol] 8.5 mg/dL 8.4 - 10. 2 mg/dL [place] Chloride [Moles/Vol] 101 mmol/L [place] CO2 [Moles/Vol] 29 mmol/L [facility] [place] Creatinine [Mass/Vol] 0.88 mg/dL 0.66 - 1.25 mg/dL [place] GFR/1.73 sq M predicted among non-blacks MDRD (S/P/Bld) [Vol rate/Area] 93 mL/min/{1.73_m2} >60 mL/min/1.73m2 [place] Comment on above: Stage 1 Kidney damage (e.g., protein in the urine) with normal GFR >=90 Stage 2 Kidney damage with mild decrease in GFR 60-89 Stage 3a Moderate decrease in GFR 45-59 Stage 3b Moderate decrease in GFR 30-44 Stage 4 Severe reduction in GFR 15-29 Stage 5 Kidney failure <15 Glucose [Mass/Vol] 114 mg/dL High 65 - 100 mg/dL [place] Interpretation and review of laboratory results Abnormal [place] Potassium [Moles/Vol] 3.7 mmol/L [place] Protein [Mass/Vol] 6.8 g/dL 6.3 - 8.2 g/dL [place] Sodium [Moles/Vol] 136 mmol/L [place] Urea nitrogen [Mass/Vol] 10 mg/dL 9 - 20 mg/dL [place] Magnesiumon 08-08-2020 Magnesium [Mass/Vol] 1.8 mg/dL 1.6 - 2 .3 mg/dL [place] CBC Auto Differentialon 07-15 Basophils (Bld) [#/Vol] 0.1 10*3/uL [place] Basophils/100 WBC (Bld) 1 % 0 - 1 % [place] Eosinophils (Bld) [#/Vol] 0.3 10*3/uL [place] Eosinophils/100 WBC (Bld) 4 % 0 - 5 % [place] Erythrocyte distribution width (RBC) [Ratio] 13.5 % 11.5 - 14.5 % [place] Hematocrit (Bld) [Volume fraction] 32.0 % Low 42 - 52 % [place] Hemoglobin (Bld) [Mass/Vol] 10.1 g/dL Low 13.5 - 17.5 g/dL [place] Interpretation and review of laboratory results Abnormal [place] Lymphocytes (Bld) [#/Vol] 2.0 10*3/uL [place] Lymphocytes/100 WBC (Bld) 21 % 20 - 40 % [place] MCH (RBC) [Entitic mass] 28.7 pg 27 - 35 pg [place] MCHC (RBC) [Mass/Vol] 31.6 g/dL Low 32 - 36 g/dL [place] MCV (RBC) [Entitic vol] 91 fL 80 - 100 fL [place] Monocytes (Bld) [#/Vol] 1.5 10*3/uL [place] Monocytes/100 WBC (Bld) 16 % High 1 - 15 % [place] Neutrophils Absolute 5.3 [place] Neutrophils/100 WBC (Bld) 58 % 50 - 70 % [place] Platelet mean volume (Bld) [Entitic vol] 10.3 fL 9.4 - 12.3 fL [place] Platelets (Bld) [#/Vol] 369 10*3/uL [place] RBC (Bld) [#/Vol] 3.52 10*6/uL [place] WBC (Bld) [#/Vol] 9.3 10*3/uL [place] Comprehensive Metabolic Pane l w/ Reflex to MGon 08-07-2020 Albumin [Mass/Vol] 3.4 g/dL Low 3.5 - 5 g/dL [place] ALP [Catalytic activity/Vol] 92 U/L 38 - 126 U/L [place] ALT [Catalytic activity/Vol] 21 U/L 0 - 50 U/L [place] AST [Catalytic activity/Vol] 28 U/L 17 - 59 U/L [place] Bilirubin Ql (U) 0.3 mg/dL 0.2 - 1.3 mg/dL [place] Calcium [Mass/Vol] 8.6 mg/dL 8.4 - 10. 2 mg/dL [place] Chloride [Moles/Vol] 102 mmol/L [place] CO2 [Moles/Vol] 29 [facility] [place] [place] Creatinine [Mass/Vol] 0.77 mg/dL 0.66 - 1.25 mg/dL [place] GFR/1.73 sq M predicted among non-blacks MDRD (S/P/Bld) [Vol rate/Area] 98 mL/min/{1.73_m2} >60 mL/min/1.73m2 [place] Comment on above: Stage 1 Kidney damage (e.g., protein in the urine) with normal GFR >=90 Stage 2 Kidney damage with mild decrease in GFR 60-89 Stage 3a Moderate decrease in GFR 45-59 Stage 3b Moderate decrease in GFR 30-44 Stage 4 Severe reduction in GFR 15-29 Stage 5 Kidney failure <15 Glucose [Mass/Vol] 94 mg/dL 65 - 100 mg/dL [place] Interpretation and review of laboratory results Abnormal [place] Potassium [Moles/Vol] 4.1 mmol/L [place] Protein [Mass/Vol] 7.3 g/dL 6.3 - 8.2 g/dL [place] Sodium [Moles/Vol] 136 mmol/L [place] Urea nitrogen [Mass/Vol] 8 mg/dL Low 9 - 20 mg/dL [place] Magnesiumon 08-07-2020 Magnesium [Mass/Vol] 2.1 mg/dL 1.6 - 2 .3 mg/dL [place] Phosphoruson 08-07-2020 Interpretation and review of laboratory results Abnormal [place] Phosphate [Mass/Vol] 4.7 mg/dL High 2.5 - 4 .5 mg/dL [place] CBC Auto Differentialon 12-2 Basophils (Bld) [#/Vol] 0.0 10*3/uL [place] Basophils/100 WBC (Bld) 1 % 0 - 1 % [place] Eosinophils (Bld) [#/Vol] 0.3 10*3/uL [place] Eosinophils/100 WBC (Bld) 4 % 0 - 5 % [place] Erythrocyte distribution width (RBC) [Ratio] 13.2 % 11.5 - 14.5 % [place] Hematocrit (Bld) [Volume fraction] 29.1 % Low 42 - 52 % [place] Hemoglobin (Bld) [Mass/Vol] 9.2 g/dL Low 13.5 - 17.5 g/dL [place] Interpretation and review of laboratory results Abnormal [place] Lymphocytes (Bld) [#/Vol] 1.8 10*3/uL [place] Lymphocytes/100 WBC (Bld) 24 % 20 - 40 % [place] MCH (RBC) [Entitic mass] 29.0 pg 27 - 35 pg [place] MCHC (RBC) [Mass/Vol] 31.6 g/dL Low 32 - 36 g/dL [place] MCV (RBC) [Entitic vol] 92 fL 80 - 100 fL [place] Monocytes (Bld) [#/Vol] 0.9 10*3/uL [place] Monocytes/100 WBC (Bld) 12 % 1 - 15 % [place] Neutrophils Absolute 4.3 [place] Neutrophils/100 WBC (Bld) 58 % 50 - 70 % [place] Platelet mean volume (Bld) [Entitic vol] 11.0 fL 9.4 - 12.3 fL [place] Platelets (Bld) [#/Vol] 257 10*3/uL [place] RBC (Bld) [#/Vol] 3.17 10*6/uL [place] WBC (Bld) [#/Vol] 7.4 10*3/uL [place] Comprehensive Metabolic Pane l w/ Reflex to MGon 08-06-2020 Albumin [Mass/Vol] 3 g/dL Low 3.5 - 5 g/dL [place] ALP [Catalytic activity/Vol] 85 U/L 38 - 126 U/L [place] ALT [Catalytic activity/Vol] 19 U/L 0 - 50 U/L [place] AST [Catalytic activity/Vol] 35 U/L 17 - 59 U/L [place] Bilirubin Ql (U) 0.2 mg/dL 0.2 - 1.3 mg/dL [place] Calcium [Mass/Vol] 8.0 mg/dL Low 8.4 - 10. 2 mg/dL [place] Chloride [Moles/Vol] 103 mmol/L [place] CO2 [Moles/Vol] 26 mmol/L [place] Creatinine [Mass/Vol] 0.66 mg/dL 0.66 - 1.25 mg/dL [place] GFR/1.73 sq M predicted among non-blacks MDRD (S/P/Bld) [Vol rate/Area] 104 mL/min/{1.73_m2} >60 mL/min/1.73m2 [place] Comment on above: Stage 1 Kidney damage (e.g., protein in the urine) with normal GFR >=90 Stage 2 Kidney damage with mild decrease in GFR 60-89 Stage 3a Moderate decrease in GFR 45-59 Stage 3b Moderate decrease in GFR 30-44 Stage 4 Severe reduction in GFR 15-29 Stage 5 Kidney failure <15 Glucose [Mass/Vol] 113 mg/dL High 65 - 100 mg/dL [place] Interpretation and review of laboratory results Abnormal [place] Potassium [Moles/Vol] 3.9 mmol/L [place] Protein [Mass/Vol] 6.5 g/dL 6.3 - 8.2 g/dL [place] Sodium [Moles/Vol] 134 mmol/L [place] Urea nitrogen [Mass/Vol] 9 mg/dL 9 - 20 mg/dL [place] Magnesiumon 08-06-2020 Magnesium [Mass/Vol] 2.1 mg/dL 1.6 - 2 .3 mg/dL [place] CBC Auto Differentialon 07-15 Basophils (Bld) [#/Vol] 0.1 10*3/uL [place] Basophils/100 WBC (Bld) 1 % 0 - 1 % [place] Eosinophils (Bld) [#/Vol] 0.3 10*3/uL [place] Eosinophils/100 WBC (Bld) 4 % 0 - 5 % [place] Erythrocyte distribution width (RBC) [Ratio] 13.2 % 11.5 - 14.5 % [place] Hematocrit (Bld) [Volume fraction] 27.5 % Low 42 - 52 % [place] Hemoglobin (Bld) [Mass/Vol] 8.8 g/dL Low 13.5 - 17.5 g/dL [place] Interpretation and review of laboratory results Abnormal [place] Lymphocytes (Bld) [#/Vol] 1.7 10*3/uL [place] Lymphocytes/100 WBC (Bld) 23 % 20 - 40 % [place] MCH (RBC) [Entitic mass] 28.9 pg 27 - 35 pg [place] MCHC (RBC) [Mass/Vol] 32.0 g/dL 32 - 36 g/dL [place] MCV (RBC) [Entitic vol] 91 fL 80 - 100 fL [place] Monocytes (Bld) [#/Vol] 0.9 10*3/uL [place] Monocytes/100 WBC (Bld) 11 % 1 - 15 % [place] Neutrophils Absolute 4.6 [place] Neutrophils/100 WBC (Bld) 60 % 50 - 70 % [place] Platelet mean volume (Bld) [Entitic vol] 9.9 fL 9.4 - 12.3 fL [place] Platelets (Bld) [#/Vol] 313 10*3/uL [place] RBC (Bld) [#/Vol] 3.04 10*6/uL [place] WBC (Bld) [#/Vol] 7.6 10*3/uL [place] Comprehensive Metabolic Pane l w/ Reflex to MGon 08-05-2020 Albumin [Mass/Vol] 3 g/dL Low 3.5 - 5 g/dL [place] ALP [Catalytic activity/Vol] 81 U/L 38 - 126 U/L [place] ALT [Catalytic activity/Vol] 17 U/L 0 - 50 U/L [place] AST [Catalytic activity/Vol] 20 U/L 17 - 59 U/L [place] Bilirubin Ql (U) 0.2 mg/dL 0.2 - 1.3 mg/dL [place] Calcium [Mass/Vol] 8.2 mg/dL Low 8.4 - 10. 2 mg/dL [place] Chloride [Moles/Vol] 103 mmol/L [place] CO2 [Moles/Vol] 27 mmol/L [place] Creatinine [Mass/Vol] 0.67 mg/dL 0.66 - 1.25 mg/dL [place] GFR/1.73 sq M predicted among non-blacks MDRD (S/P/Bld) [Vol rate/Area] 104 mL/min/{1.73_m2} >60 mL/min/1.73m2 [place] Comment on above: Stage 1 Kidney damage (e.g., protein in the urine) with normal GFR >=90 Stage 2 Kidney damage with mild decrease in GFR 60-89 Stage 3a Moderate decrease in GFR 45-59 Stage 3b Moderate decrease in GFR 30-44 Stage 4 Severe reduction in GFR 15-29 Stage 5 Kidney failure <15 Glucose [Mass/Vol] 134 mg/dL High 65 - 100 mg/dL [place], [place] Interpretation and review of laboratory results Abnormal [place] Potassium [Moles/Vol] 3.7 mmol/L [place] Protein [Mass/Vol] 6.5 g/dL 6.3 - 8.2 g/dL [place] Sodium [Moles/Vol] 137 mmol/L [place] Urea nitrogen [Mass/Vol] 9 mg/dL 9 - 20 mg/dL [place] Magnesiumon 08-05-2020 Magnesium [Mass/Vol] 2.1 mg/dL 1.6 - 2 .3 mg/dL [place] Phosphoruson 08-05-2020 Phosphate [Mass/Vol] 4.4 mg/dL 2.5 - 4 .5 mg/dL [place] CBC Auto Differentialon 07-15 Basophils (Bld) [#/Vol] 0.0 10*3/uL [place] Basophils/100 WBC (Bld) 0 % 0 - 1 % [place] Eosinophils (Bld) [#/Vol] 0.4 10*3/uL [place] Eosinophils/100 WBC (Bld) 4 % 0 - 5 % [place] Erythrocyte distribution width (RBC) [Ratio] 13.2 % 11.5 - 14.5 % [place] Hematocrit (Bld) [Volume fraction] 26.6 % Low 42 - 52 % [place] Hemoglobin (Bld) [Mass/Vol] 8.7 g/dL Low 13.5 - 17.5 g/dL [place] Interpretation and review of laboratory results Abnormal [place] Lymphocytes (Bld) [#/Vol] 1.6 10*3/uL [place] Lymphocytes/100 WBC (Bld) 20 % 20 - 40 % [place] MCH (RBC) [Entitic mass] 29.5 pg 27 - 35 pg [place] MCHC (RBC) [Mass/Vol] 32.7 g/dL 32 - 36 g/dL [place] MCV (RBC) [Entitic vol] 90 fL 80 - 100 fL [place] Monocytes (Bld) [#/Vol] 0.9 10*3/uL [place] Monocytes/100 WBC (Bld) 11 % 1 - 15 % [place] Neutrophils Absolute 5.1 [place] Neutrophils/100 WBC (Bld) 63 % 50 - 70 % [place] Platelet mean volume (Bld) [Entitic vol] 9.6 fL 9.4 - 12.3 fL [place] Platelets (Bld) [#/Vol] 269 10*3/uL [place] RBC (Bld) [#/Vol] 2.95 10*6/uL [place] WBC (Bld) [#/Vol] 8 10*3/uL [place] Comprehensive Metabolic Pane l w/ Reflex to MGon 08-04-2020 Albumin [Mass/Vol] 2.9 g/dL Low 3.5 - 5 g/dL [place] ALP [Catalytic activity/Vol] 83 U/L 38 - 126 U/L [place] ALT [Catalytic activity/Vol] 16 U/L 0 - 50 U/L [place] AST [Catalytic activity/Vol] 19 U/L 17 - 59 U/L [place] Bilirubin Ql (U) 0.2 mg/dL 0.2 - 1.3 mg/dL [place] Calcium [Mass/Vol] 7.9 mg/dL Low 8.4 - 10. 2 mg/dL [place] Chloride [Moles/Vol] 103 mmol/L [place] CO2 [Moles/Vol] 27 mmol/L [facility] Creatinine [Mass/Vol] 0.71 mg/dL 0.66 - 1.25 mg/dL [place] GFR/1.73 sq M predicted among non-blacks MDRD (S/P/Bld) [Vol rate/Area] 101 mL/min/{1.73_m2} >60 mL/min/1.73m2 [place] Comment on above: Stage 1 Kidney damage (e.g., protein in the urine) with normal GFR >=90 Stage 2 Kidney damage with mild decrease in GFR 60-89 Stage 3a Moderate decrease in GFR 45-59 Stage 3b Moderate decrease in GFR 30-44 Stage 4 Severe reduction in GFR 15-29 Stage 5 Kidney failure <15 Glucose [Mass/Vol] 111 mg/dL High 65 - 100 mg/dL [place] Interpretation and review of laboratory results Abnormal [place] Potassium [Moles/Vol] 3.8 mmol/L [place] Protein [Mass/Vol] 6.3 g/dL 6.3 - 8.2 g/dL [place] Sodium [Moles/Vol] 136 mmol/L [place] Urea nitrogen [Mass/Vol] 9 mg/dL 9 - 20 mg/dL [place] Magnesiumon 08-04-2020 Magnesium [Mass/Vol] 2.1 mg/dL 1.6 - 2 .3 mg/dL [place] CBC Auto Differentialon 07-15 Basophils (Bld) [#/Vol] 0.0 10*3/uL [place] Basophils/100 WBC (Bld) 0 % 0 - 1 % [place] Eosinophils (Bld) [#/Vol] 0.4 10*3/uL [place] Eosinophils/100 WBC (Bld) 4 % 0 - 5 % [place] Erythrocyte distribution width (RBC) [Ratio] 13.1 % 11.5 - 14.5 % [place] Hematocrit (Bld) [Volume fraction] 30.3 % Low 42 - 52 % [place] Hemoglobin (Bld) [Mass/Vol] 9.7 g/dL Low 13.5 - 17.5 g/dL [place] Interpretation and review of laboratory results Abnormal [place] Lymphocytes (Bld) [#/Vol] 2.1 10*3/uL [place] Lymphocytes/100 WBC (Bld) 20 % 20 - 40 % [place] MCH (RBC) [Entitic mass] 28.9 pg 27 - 35 pg [place] MCHC (RBC) [Mass/Vol] 32.0 g/dL 32 - 36 g/dL [place] MCV (RBC) [Entitic vol] 90 fL 80 - 100 fL [place] Monocytes (Bld) [#/Vol] 0.9 10*3/uL [place] Monocytes/100 WBC (Bld) 9 % 1 - 15 % [place] Neutrophils Absolute 7.1 [place] Neutrophils/100 WBC (Bld) 66 % 50 - 70 % [place] Platelet mean volume (Bld) [Entitic vol] 10.0 fL 9.4 - 12.3 fL [place] Platelets (Bld) [#/Vol] 291 10*3/uL [place] RBC (Bld) [#/Vol] 3.36 10*6/uL [place] WBC (Bld) [#/Vol] 10.6 10*3/uL [place] Comprehensive Metabolic Pane l w/ Reflex to MGon 08-03-2020 Albumin [Mass/Vol] 3.2 g/dL Low 3.5 - 5 g/dL [place] ALP [Catalytic activity/Vol] 92 U/L 38 - 126 U/L [place] ALT [Catalytic activity/Vol] 18 U/L 0 - 50 U/L [place] AST [Catalytic activity/Vol] 23 U/L 17 - 59 U/L [place] Bilirubin Ql (U) 0.3 mg/dL 0.2 - 1.3 mg/dL [place] Calcium [Mass/Vol] 8.2 mg/dL Low 8.4 - 10. 2 mg/dL [place] Chloride [Moles/Vol] 105 mmol/L [place] CO2 [Moles/Vol] 28 [facility] [place] Creatinine [Mass/Vol] 0.70 mg/dL 0.66 - 1.25 mg/dL [place] GFR/1.73 sq M predicted among non-blacks MDRD (S/P/Bld) [Vol rate/Area] 102 mL/min/{1.73_m2} >60 mL/min/1.73m2 [place] Comment on above: Stage 1 Kidney damage (e.g., protein in the urine) with normal GFR >=90 Stage 2 Kidney damage with mild decrease in GFR 60-89 Stage 3a Moderate decrease in GFR 45-59 Stage 3b Moderate decrease in GFR 30-44 Stage 4 Severe reduction in GFR 15-29 Stage 5 Kidney failure <15 Glucose [Mass/Vol] 117 mg/dL High 65 - 100 mg/dL [place] Interpretation and review of laboratory results Abnormal [place] Potassium [Moles/Vol] 4.0 mmol/L [place] Protein [Mass/Vol] 6.8 g/dL 6.3 - 8.2 g/dL [place] Sodium [Moles/Vol] 137 mmol/L [place] Urea nitrogen [Mass/Vol] 7 mg/dL Low 9 - 20 mg/dL [place] Magnesiumon 08-03-2020 Magnesium [Mass/Vol] 2.2 mg/dL 1.6 - 2 .3 mg/dL [place] Phosphoruson 08-03-2020 Interpretation and review of laboratory results Abnormal [place] Phosphate [Mass/Vol] 4.7 mg/dL High 2.5 - 4 .5 mg/dL [place] CBC Auto Differentialon 07-15 Basophils (Bld) [#/Vol] 0.0 10*3/uL [place] Basophils/100 WBC (Bld) 0 % 0 - 1 % [place] Eosinophils (Bld) [#/Vol] 0.4 10*3/uL [place] Eosinophils/100 WBC (Bld) 4 % 0 - 5 % [place] Erythrocyte distribution width (RBC) [Ratio] 13.1 % 11.5 - 14.5 % [place] Hematocrit (Bld) [Volume fraction] 30.2 % Low 42 - 52 % [place] Hemoglobin (Bld) [Mass/Vol] 9.8 g/dL Low 13.5 - 17.5 g/dL [place] Interpretation and review of laboratory results Abnormal [place] Lymphocytes (Bld) [#/Vol] 2.4 10*3/uL [place] Lymphocytes/100 WBC (Bld) 22 % 20 - 40 % [place] MCH (RBC) [Entitic mass] 29.3 pg 27 - 35 pg [place] MCHC (RBC) [Mass/Vol] 32.5 g/dL 32 - 36 g/dL [place] MCV (RBC) [Entitic vol] 90 fL 80 - 100 fL [place] Monocytes (Bld) [#/Vol] 1.1 10*3/uL [place] Monocytes/100 WBC (Bld) 10 % 1 - 15 % [place] Neutrophils Absolute 6.9 [place] Neutrophils/100 WBC (Bld) 63 % 50 - 70 % [place] Platelet mean volume (Bld) [Entitic vol] 9.6 fL 9.4 - 12.3 fL [place] Platelets (Bld) [#/Vol] 252 10*3/uL [place] RBC (Bld) [#/Vol] 3.34 10*6/uL [place] WBC (Bld) [#/Vol] 10.9 10*3/uL [place] Comprehensive Metabolic Pane l w/ Reflex to MGon 08-02-2020 Albumin [Mass/Vol] 3.2 g/dL Low 3.5 - 5 g/dL [place] ALP [Catalytic activity/Vol] 100 U/L 38 - 126 U/L [place] ALT [Catalytic activity/Vol] 17 U/L 0 - 50 U/L [place] AST [Catalytic activity/Vol] 24 U/L 17 - 59 U/L [place] Bilirubin Ql (U) 0.3 mg/dL 0.2 - 1.3 mg/dL [place] Calcium [Mass/Vol] 8.2 mg/dL Low 8.4 - 10. 2 mg/dL [place] Chloride [Moles/Vol] 104 mmol/L [place] CO2 [Moles/Vol] 28 mmol/L [facility] [place] Creatinine [Mass/Vol] 0.66 mg/dL 0.66 - 1.25 mg/dL [place] GFR/1.73 sq M predicted among non-blacks MDRD (S/P/Bld) [Vol rate/Area] 104 mL/min/{1.73_m2} >60 mL/min/1.73m2 [place] Comment on above: Stage 1 Kidney damage (e.g., protein in the urine) with normal GFR >=90 Stage 2 Kidney damage with mild decrease in GFR 60-89 Stage 3a Moderate decrease in GFR 45-59 Stage 3b Moderate decrease in GFR 30-44 Stage 4 Severe reduction in GFR 15-29 Stage 5 Kidney failure <15 Glucose [Mass/Vol] 115 mg/dL High 65 - 100 mg/dL [place] Interpretation and review of laboratory results Abnormal [place] Potassium [Moles/Vol] 3.8 mmol/L [place] Protein [Mass/Vol] 6.8 g/dL 6.3 - 8.2 g/dL [place] Sodium [Moles/Vol] 138 mmol/L [place] Urea nitrogen [Mass/Vol] 8 mg/dL Low 9 - 20 mg/dL [place] Magnesiumon 08-02-2020 Magnesium [Mass/Vol] 2.3 mg/dL 1.6 - 2 .3 mg/dL [place] Otheron 08-02-2020 Interpretation No growth after 5 days [place] Source of Blood Culture Blood [place] XR SHOULDER RIGHT (MIN 2 VIE WS)on 08-02-2020 1. No acute fracture or dislocation of the right shoulder is seen. 2. Multiple remote, healed fracture deformities of the lateral aspect of the right rib cage. [place] HISTORY: Right shoul essence pain since a recent fall. XR SHOULDER RIGHT (MIN 2 VIEWS): 08/02/2020 8:21 AM EST COMPARISON: Radiographs right shoulder 07/22/2020. FINDINGS: There are mild degenerative changes again seen of the acromioclavicular joint. No acute fracture or dislocation is seen of the shoulder. Multiple remote, healed fracture deformities of the lateral aspect of the right rib cage are again seen. Report electronically signed by: Dr. Quinn Bourgeois [place], Incoming Radiant Results From [facility] - 08/02/2020 8:35 AM EST HISTORY: Right shoulder pain since a recent fall. XR SHOULDER RIGHT (MIN 2 VIEWS): 08/02/2020 8:21 AM EST COMPARISON: Radiographs right shoulder 07/22/2020. FINDINGS: There are mild degenerative changes again seen of the acromioclavicular joint. No acute fracture or dislocation is seen of the shoulder. Multiple remote, healed fracture deformities of the lateral aspect of the right rib cage are again seen. Report electronically signed by: Dr. Quinn Bourgeois IMPRESSION: 1. No acute fracture or dislocation of the right shoulder is seen. 2. Multiple remote, healed fracture deformities of the lateral aspect of the right rib cage. [place] CBC Auto Differentialon 07-14 Basophils (Bld) [#/Vol] 0.0 10*3/uL [place], [place] Basophils/100 WBC (Bld) 0 % 0 - 1 % [place] Eosinophils (Bld) [#/Vol] 0.3 10*3/uL [place] Eosinophils/100 WBC (Bld) 3 % 0 - 5 % [place] Erythrocyte distribution width (RBC) [Ratio] 12.9 % 11.5 - 14.5 % [place] Hematocrit (Bld) [Volume fraction] 30.3 % Low 42 - 52 % [place] Hemoglobin (Bld) [Mass/Vol] 9.5 g/dL Low 13.5 - 17.5 g/dL [place] Interpretation and review of laboratory results Abnormal [place] Lymphocytes (Bld) [#/Vol] 2.0 10*3/uL [place] Lymphocytes/100 WBC (Bld) 20 % 20 - 40 % [place] MCH (RBC) [Entitic mass] 28.6 pg 27 - 35 pg [place] MCHC (RBC) [Mass/Vol] 31.4 g/dL Low 32 - 36 g/dL [place] MCV (RBC) [Entitic vol] 91 fL 80 - 100 fL [place] Monocytes (Bld) [#/Vol] 0.9 10*3/uL [place] Monocytes/100 WBC (Bld) 9 % 1 - 15 % [place] Neutrophils Absolute 6.5 [place] Neutrophils/100 WBC (Bld) 66 % 50 - 70 % [place] Platelet mean volume (Bld) [Entitic vol] 10.1 fL 9.4 - 12.3 fL [place] Platelets (Bld) [#/Vol] 257 10*3/uL [place] RBC (Bld) [#/Vol] 3.32 10*6/uL [place] WBC (Bld) [#/Vol] 9.9 10*3/uL [place] Comprehensive Metabolic Pane l w/ Reflex to MGon 08-01-2020 Albumin [Mass/Vol] 3 g/dL Low 3.5 - 5 g/dL [place] ALP [Catalytic activity/Vol] 103 U/L 38 - 126 U/L [place] ALT [Catalytic activity/Vol] 16 U/L 0 - 50 U/L [place] AST [Catalytic activity/Vol] 24 U/L 17 - 59 U/L [place] Bilirubin Ql (U) 0.4 mg/dL 0.2 - 1.3 mg/dL [place] Calcium [Mass/Vol] 8.1 mg/dL Low 8.4 - 10. 2 mg/dL [place] Chloride [Moles/Vol] 99 mmol/L [place] CO2 [Moles/Vol] 31 mmol/L [facility] [place] Creatinine [Mass/Vol] 0.77 mg/dL 0.66 - 1.25 mg/dL [place] GFR/1.73 sq M predicted among non-blacks MDRD (S/P/Bld) [Vol rate/Area] 98 mL/min/{1.73_m2} >60 mL/min/1.73m2 [place] Comment on above: Stage 1 Kidney damage (e.g., protein in the urine) with normal GFR >=90 Stage 2 Kidney damage with mild decrease in GFR 60-89 Stage 3a Moderate decrease in GFR 45-59 Stage 3b Moderate decrease in GFR 30-44 Stage 4 Severe reduction in GFR 15-29 Stage 5 Kidney failure <15 Glucose [Mass/Vol] 111 mg/dL High 65 - 100 mg/dL [place] Interpretation and review of laboratory results Abnormal [place] Potassium [Moles/Vol] 3.7 mmol/L [place] Protein [Mass/Vol] 6.3 g/dL 6.3 - 8.2 g/dL [place] Sodium [Moles/Vol] 136 mmol/L [place] Urea nitrogen [Mass/Vol] 6 mg/dL Low 9 - 20 mg/dL [place] Magnesiumon 08-01-2020 Magnesium [Mass/Vol] 2.3 mg/dL 1.6 - 2 .3 mg/dL [place] CBC Auto Differentialon 07-14 Basophils (Bld) [#/Vol] 0.0 10*3/uL [place] Basophils/100 WBC (Bld) 0 % 0 - 1 % [place] Eosinophils (Bld) [#/Vol] 0.3 10*3/uL [place] Eosinophils/100 WBC (Bld) 5 % 0 - 5 % [place] Erythrocyte distribution width (RBC) [Ratio] 12.8 % 11.5 - 14.5 % [place] Hematocrit (Bld) [Volume fraction] 28.6 % Low 42 - 52 % [place] Hemoglobin (Bld) [Mass/Vol] 9.2 g/dL Low 13.5 - 17.5 g/dL [place] Interpretation and review of laboratory results Abnormal [place] Lymphocytes (Bld) [#/Vol] 1.8 10*3/uL [place] Lymphocytes/100 WBC (Bld) 24 % 20 - 40 % [place] MCH (RBC) [Entitic mass] 29.1 pg 27 - 35 pg [place] MCHC (RBC) [Mass/Vol] 32.2 g/dL 32 - 36 g/dL [place] MCV (RBC) [Entitic vol] 91 fL 80 - 100 fL [place] Monocytes (Bld) [#/Vol] 0.7 10*3/uL [place] Monocytes/100 WBC (Bld) 9 % 1 - 15 % [place] Neutrophils Absolute 4.5 [place] Neutrophils/100 WBC (Bld) 61 % 50 - 70 % [place] Platelet mean volume (Bld) [Entitic vol] 9.8 fL 9.4 - 12.3 fL [place] Platelets (Bld) [#/Vol] 230 10*3/uL [place] RBC (Bld) [#/Vol] 3.16 10*6/uL [place] WBC (Bld) [#/Vol] 7.4 10*3/uL [place] Comprehensive Metabolic Pane l w/ Reflex to MGon 07-31-2020 Albumin [Mass/Vol] 2.7 g/dL Low 3.5 - 5 g/dL [place] ALP [Catalytic activity/Vol] 95 U/L 38 - 126 U/L [place] ALT [Catalytic activity/Vol] 16 U/L 0 - 50 U/L [place] AST [Catalytic activity/Vol] 25 U/L 17 - 59 U/L [place] Bilirubin Ql (U) 0.3 mg/dL 0.2 - 1.3 mg/dL [place] Calcium [Mass/Vol] 7.7 mg/dL Low 8.4 - 10. 2 mg/dL [place] Chloride [Moles/Vol] 100 mmol/L [place] CO2 [Moles/Vol] 34 mmol/L High [facility] [place] Creatinine [Mass/Vol] 0.69 mg/dL 0.66 - 1.25 mg/dL [place] GFR/1.73 sq M predicted among non-blacks MDRD (S/P/Bld) [Vol rate/Area] 102 mL/min/{1.73_m2} >60 mL/min/1.73m2 [place] Comment on above: Stage 1 Kidney damage (e.g., protein in the urine) with normal GFR >=90 Stage 2 Kidney damage with mild decrease in GFR 60-89 Stage 3a Moderate decrease in GFR 45-59 Stage 3b Moderate decrease in GFR 30-44 Stage 4 Severe reduction in GFR 15-29 Stage 5 Kidney failure <15 Glucose [Mass/Vol] 112 mg/dL High 65 - 100 mg/dL [place] Interpretation and review of laboratory results Abnormal [place] Potassium [Moles/Vol] 3.7 mmol/L [place] Protein [Mass/Vol] 5.7 g/dL Low 6.3 - 8.2 g/dL [place] Sodium [Moles/Vol] 137 mmol/L [place] Urea nitrogen [Mass/Vol] 6 mg/dL Low 9 - 20 mg/dL [place] Levetiracetam Levelon 2019 Cholesterol [Mass/Vol] [facility] Testing performed at: [facility], [facility] [place], [address] [place] [address], , Emissions Engineer: Vinod Cotto M.D. [facility] Collection Date/Time: [id number] [facility] Results Received Date/Time: [id number] [facility] Reported Date/Time: [id number] [place] Levetiracetam [Mass/Vol] 44 ug/mL [place] Comment on above: Toxic level is not well established. Interpretation should include a clinical evaluation. For additional information, please refer to http://education.CrowdTransfer/faq/EOS613 (This link is being provided for informational/ educational purposes only.) This test was developed and its analytical performance characteristics have been determined by [facility] [place], [place]. It has not been cleared or approved by the U.S. Food and Drug Administration. This assay has been validated pursuant to the CLIA regulations and is used for clinical purposes. Magnesiumon 07-31-2020 Magnesium [Mass/Vol] 2.2 mg/dL 1.6 - 2 .3 mg/dL [place] Phenytoin level, freeon 07-14 Cholesterol [Mass/Vol] [facility] Testing performed at: [facility], [facility], [address] [place] [address], , Emissions Engineer: Vinod Cotto M.D. [facility] Collection Date/Time: [id number] [facility] Results Received Date/Time: [id number] [facility] Reported Date/Time: [id number] [place] Interpretation and review of laboratory results Abnormal [place] Phenytoin, Free <0.5 Low 1 - 2 mg/L [facility] [place] Vancomycin, troughon 020 Vancomycin 16.0 ug/mL 10 - 20 ug/mL [facility] [place] [place] Vancomycin trough ne eds drawn 30 minutes prior to 14:00 dose on 07/31/20 per pharmacy protocol. [place] CBC Auto Differentialon 07-14 Basophils (Bld) [#/Vol] 0.0 10*3/uL [place] Basophils/100 WBC (Bld) 0 % 0 - 1 % [place] Eosinophils (Bld) [#/Vol] 0.4 10*3/uL [place] Eosinophils/100 WBC (Bld) 5 % 0 - 5 % [place] Erythrocyte distribution width (RBC) [Ratio] 13.2 % 11.5 - 14.5 % [place] Hematocrit (Bld) [Volume fraction] 27.6 % Low 42 - 52 % [place] Hemoglobin (Bld) [Mass/Vol] 8.9 g/dL Low 13.5 - 17.5 g/dL [place] Interpretation and review of laboratory results Abnormal [place] Lymphocytes (Bld) [#/Vol] 1.8 10*3/uL [place] Lymphocytes/100 WBC (Bld) 23 % 20 - 40 % [place] MCH (RBC) [Entitic mass] 29.3 pg 27 - 35 pg [place] MCHC (RBC) [Mass/Vol] 32.2 g/dL 32 - 36 g/dL [place] MCV (RBC) [Entitic vol] 91 fL 80 - 100 fL [place] Monocytes (Bld) [#/Vol] 0.8 10*3/uL [place] Monocytes/100 WBC (Bld) 10 % 1 - 15 % [place] Neutrophils Absolute 4.7 [place] Neutrophils/100 WBC (Bld) 60 % 50 - 70 % [place] Platelet mean volume (Bld) [Entitic vol] 10.0 fL 9.4 - 12.3 fL [place] Platelets (Bld) [#/Vol] 215 10*3/uL [place] RBC (Bld) [#/Vol] 3.04 10*6/uL [place] WBC (Bld) [#/Vol] 7.8 10*3/uL [place] Comprehensive Metabolic Pane l w/ Reflex to MGon 07-30-2020 Albumin [Mass/Vol] 2.7 g/dL Low 3.5 - 5 g/dL [place] ALP [Catalytic activity/Vol] 97 U/L 38 - 126 U/L [place] ALT [Catalytic activity/Vol] 14 U/L 0 - 50 U/L [place] AST [Catalytic activity/Vol] 19 U/L 17 - 59 U/L [place] Bilirubin Ql (U) 0.3 mg/dL 0.2 - 1.3 mg/dL [place] Calcium [Mass/Vol] 7.8 mg/dL Low 8.4 - 10. 2 mg/dL [place] Chloride [Moles/Vol] 101 mmol/L [place] CO2 [Moles/Vol] 30 [facility] [place] Creatinine [Mass/Vol] 0.81 mg/dL 0.66 - 1.25 mg/dL [place] GFR/1.73 sq M predicted among non-blacks MDRD (S/P/Bld) [Vol rate/Area] 96 mL/min/{1.73_m2} >60 mL/min/1.73m2 [place] Comment on above: Stage 1 Kidney damage (e.g., protein in the urine) with normal GFR >=90 Stage 2 Kidney damage with mild decrease in GFR 60-89 Stage 3a Moderate decrease in GFR 45-59 Stage 3b Moderate decrease in GFR 30-44 Stage 4 Severe reduction in GFR 15-29 Stage 5 Kidney failure <15 Glucose [Mass/Vol] 107 mg/dL High 65 - 100 mg/dL [place] Interpretation and review of laboratory results Abnormal [place] Potassium [Moles/Vol] 3.7 mmol/L [place] Protein [Mass/Vol] 5.6 g/dL Low 6.3 - 8.2 g/dL [place] Sodium [Moles/Vol] 136 mmol/L [place] Urea nitrogen [Mass/Vol] 7 mg/dL Low 9 - 20 mg/dL [place] Magnesiumon 07-30-2020 Magnesium [Mass/Vol] 2.1 mg/dL 1.6 - 2 .3 mg/dL [place] XR CHEST PORTABLEon 07-30-20 20 Right subclavian central line positioning as above without evidence of pneumothorax or other complication. [place] EXAM: Portable chest REASON FOR EXAM: Central line placement. TECHNIQUE: A portable frontal view of the chest was obtained. COMPARISON: 11/21/2018. FINDINGS: There is a right subclavian central line. The tip of the catheter is either at the cavoatrial junction or just into the right atrium. There is no pneumothorax or mediastinal shift. The lungs are grossly clear. The heart is enlarged. Report electronically signed by: Dr. Antwan Mosqueda [place], [place] Yovanny Calderon Radiant Results From [facility] - 07/30/2020 1:33 PM EST EXAM: Portable chest REASON FOR EXAM: Central line placement. TECHNIQUE: A portable frontal view of the chest was obtained. COMPARISON: 11/21/2018. FINDINGS: There is a right subclavian central line. The tip of the catheter is either at the cavoatrial junction or just into the right atrium. There is no pneumothorax or mediastinal shift. The lungs are grossly clear. The heart is enlarged. Report electronically signed by: Dr. Antwan Mosqueda IMPRESSION: Right subclavian central line positioning as above without evidence of pneumothorax or other complication. [place] CBC Auto Differentialon 07-14 Basophils (Bld) [#/Vol] 0.0 10*3/uL [place] Basophils/100 WBC (Bld) 0 % 0 - 1 % [place] Eosinophils (Bld) [#/Vol] 0.3 10*3/uL [place] Eosinophils/100 WBC (Bld) 3 % 0 - 5 % [place] Erythrocyte distribution width (RBC) [Ratio] 13.1 % 11.5 - 14.5 % [place] Hematocrit (Bld) [Volume fraction] 21.1 % Low 42 - 52 % [place] Hemoglobin (Bld) [Mass/Vol] 6.8 g/dL Critically low 13.5 - 17.5 g/dL [place] Comment on above: Sobeida in ICU (HGB) Interpretation and review of laboratory results Abnormal [place] Lymphocytes (Bld) [#/Vol] 1.8 10*3/uL [place] Lymphocytes/100 WBC (Bld) 23 % 20 - 40 % [place] MCH (RBC) [Entitic mass] 29.1 pg 27 - 35 pg [place] MCHC (RBC) [Mass/Vol] 32.2 g/dL 32 - 36 g/dL [place] MCV (RBC) [Entitic vol] 90 fL 80 - 100 fL [place] Monocytes (Bld) [#/Vol] 0.8 10*3/uL [place] Monocytes/100 WBC (Bld) 10 % 1 - 15 % [place] Neutrophils Absolute 4.7 [place] Neutrophils/100 WBC (Bld) 61 % 50 - 70 % [place] Platelet mean volume (Bld) [Entitic vol] 10.1 fL 9.4 - 12.3 fL [place] Platelets (Bld) [#/Vol] 199 10*3/uL [place] RBC (Bld) [#/Vol] 2.34 10*6/uL [place] WBC (Bld) [#/Vol] 7.6 10*3/uL [place] Comprehensive Metabolic Pane l w/ Reflex to MGon 07-29-2020 Albumin [Mass/Vol] 2.5 g/dL Low 3.5 - 5 g/dL [place] ALP [Catalytic activity/Vol] 100 U/L 38 - 126 U/L [place] ALT [Catalytic activity/Vol] 12 U/L 0 - 50 U/L [place] AST [Catalytic activity/Vol] 30 U/L 17 - 59 U/L [place] Bilirubin Ql (U) 0.4 mg/dL 0.2 - 1.3 mg/dL [place] Calcium [Mass/Vol] 7.8 mg/dL Low 8.4 - 10. 2 mg/dL [place] Chloride [Moles/Vol] 102 mmol/L [place] CO2 [Moles/Vol] 32 mmol/L [place] Creatinine [Mass/Vol] 0.76 mg/dL 0.66 - 1.25 mg/dL [place] GFR/1.73 sq M predicted among non-blacks MDRD (S/P/Bld) [Vol rate/Area] 98 mL/min/{1.73_m2} >60 mL/min/1.73m2 [place] Comment on above: Stage 1 Kidney damage (e.g., protein in the urine) with normal GFR >=90 Stage 2 Kidney damage with mild decrease in GFR 60-89 Stage 3a Moderate decrease in GFR 45-59 Stage 3b Moderate decrease in GFR 30-44 Stage 4 Severe reduction in GFR 15-29 Stage 5 Kidney failure <15 Glucose [Mass/Vol] 100 mg/dL 65 - 100 mg/dL [place] Interpretation and review of laboratory results Abnormal [place] Potassium [Moles/Vol] 3.8 mmol/L [place] Protein [Mass/Vol] 5.1 g/dL Low 6.3 - 8.2 g/dL [place] Sodium [Moles/Vol] 139 mmol/L [place] Urea nitrogen [Mass/Vol] 6 mg/dL Low 9 - 20 mg/dL [place] Magnesiumon 07-29-2020 Magnesium [Mass/Vol] 2.1 mg/dL 1.6 - 2 .3 mg/dL [place] PREPARE RBC (CROSSMATCH), 1 Unitson 07-29-2020 Arm Band Number [id number] [place] CALLED TO MAGALIS/CCU [place] Crossmatch Result COMPATIBLE COMPATIBLE [facility] [place] Expiration Date 08/31/20 [place] Number of Units 1 [place] Performed by: Campos HOLLINS [place], [place] Unit # [id number] [place], [place] Unit ABO Positive [place], [place] TYPE AND SCREENon 07-29-2020 ABO A [place] Arm Band Number [id number] [place] Rh Factor Positive [place] Specimen is valid fo r 3 days - nurse to verify valid specimen [place] Vancomycin, troughon 020 Vancomycin 11.3 ug/mL 10 - 20 ug/mL [place] Draw vancomycin leve l 15-30 minutes prior to the start of the 1300 infusion [place], [place] CBC Auto Differentialon 07-14 Basophils (Bld) [#/Vol] 0.0 10*3/uL [place] Basophils/100 WBC (Bld) 0 % 0 - 1 % [place] Eosinophils (Bld) [#/Vol] 0.3 10*3/uL [place] Eosinophils/100 WBC (Bld) 3 % 0 - 5 % [place] Erythrocyte distribution width (RBC) [Ratio] 13.2 % 11.5 - 14.5 % [place] Hematocrit (Bld) [Volume fraction] 23.9 % Low 42 - 52 % [place] Hemoglobin (Bld) [Mass/Vol] 7.7 g/dL Low 13.5 - 17.5 g/dL [place] Immature granulocytes (Bld) [#/Vol] 0.09 10*3/uL [place] Immature granulocytes/100 WBC (Bld) 1.1 % <5.00 [place] Interpretation and review of laboratory results Abnormal [place] Lymphocytes (Bld) [#/Vol] 1.4 10*3/uL [place] Lymphocytes/100 WBC (Bld) 17 % Low 20 - 40 % [place] MCH (RBC) [Entitic mass] 29.4 pg 27 - 35 pg [place] MCHC (RBC) [Mass/Vol] 32.2 g/dL 32 - 36 g/dL [place] MCV (RBC) [Entitic vol] 91 fL 80 - 100 fL [place] Monocytes (Bld) [#/Vol] 0.9 10*3/uL [place] Monocytes/100 WBC (Bld) 10 % 1 - 15 % [place] Neutrophils Absolute 5.9 [place] Neutrophils/100 WBC (Bld) 69 % 50 - 70 % [place] Platelet mean volume (Bld) [Entitic vol] 10.2 fL 9.4 - 12.3 fL [place] Platelets (Bld) [#/Vol] 175 10*3/uL [place] RBC (Bld) [#/Vol] 2.62 10*6/uL [place] WBC (Bld) [#/Vol] 8.6 10*3/uL [place] Comprehensive Metabolic Pane l w/ Reflex to MGon 07-28-2020 Albumin [Mass/Vol] 2.4 g/dL Low 3.5 - 5 g/dL [place] ALP [Catalytic activity/Vol] 80 U/L 38 - 126 U/L [place] ALT [Catalytic activity/Vol] 11 U/L 0 - 50 U/L [place] AST [Catalytic activity/Vol] 15 U/L Low 17 - 59 U/L [place] Bilirubin Ql (U) 0.3 mg/dL 0.2 - 1.3 mg/dL [place] Calcium [Mass/Vol] 7.5 mg/dL Low 8.4 - 10. 2 mg/dL [place] Chloride [Moles/Vol] 102 mmol/L [place] CO2 [Moles/Vol] 35 mmol/L [facility] Creatinine [Mass/Vol] 0.66 mg/dL 0.66 - 1.25 mg/dL [place] GFR/1.73 sq M predicted among non-blacks MDRD (S/P/Bld) [Vol rate/Area] 104 mL/min/{1.73_m2} >60 mL/min/1.73m2 [place] Comment on above: Stage 1 Kidney damage (e.g., protein in the urine) with normal GFR >=90 Stage 2 Kidney damage with mild decrease in GFR 60-89 Stage 3a Moderate decrease in GFR 45-59 Stage 3b Moderate decrease in GFR 30-44 Stage 4 Severe reduction in GFR 15-29 Stage 5 Kidney failure <15 Glucose [Mass/Vol] 113 mg/dL High 65 - 100 mg/dL [place] Interpretation and review of laboratory results Abnormal [place] Potassium [Moles/Vol] 3.7 mmol/L [place] Protein [Mass/Vol] 5.0 g/dL Low 6.3 - 8.2 g/dL [place] Sodium [Moles/Vol] 140 mmol/L [place] Urea nitrogen [Mass/Vol] 4 mg/dL Low 9 - 20 mg/dL [place] Magnesiumon 07-28-2020 Magnesium [Mass/Vol] 2.0 mg/dL 1.6 - 2 .3 mg/dL [place] XR ABDOMEN (KUB) (SINGLE AP VIEW)on 07-28-2020 EXAM: XR ABDOMEN (KU B) (SINGLE AP VIEW) HISTORY: post op ileus COMPARISON: None. TECHNIQUE: 2 supine images FINDINGS: Provided history is postoperative ileus. Noting the limitations of the supine view there is no definite free air. Multiple dilated small bowel loops are seen, up to 4.4 cm. There is a small amount of air in large bowel. Findings otherwise of note for a surgical clip in the right mid abdomen, 2 surgical clips left midabdomen some dense material in the thick-walled bladder, and the presence of multiple rib fractures in different stages of healing, with detail of rib fractures and underlying bone not clear., this will have been better evaluated on CT examinations performed Report electronically signed by: Dr. Ysabel Cee [place], [place] Multiple dilated sma ll bowel loops up to 4.4 cm in caliber. Cannot exclude obstruction on these images. Close follow-up and repeat x-ray and/or surgical evaluation recommended. Consider follow-up x-ray in 2-[address] is not to be done. [facility]WE[facility]ERC[facility] [place], [facility]coming [facility]28/[facility] 10:11 AM EST EXAM: XR ABDOMEN (KUB) (SINGLE AP VIEW) HISTORY: post op ileus COMPARISON: None. TECHNIQUE: 2 supine images FINDINGS: Provided history is postoperative ileus. Noting the limitations of the supine view there is no definite free air. Multiple dilated small bowel loops are seen, up to 4.4 cm. There is a small amount of air in large bowel. Findings otherwise of note for a surgical clip in the right mid abdomen, 2 surgical clips left midabdomen some dense material in the thick-walled bladder, and the presence of multiple rib fractures in different stages of healing, with detail of rib fractures and underlying bone not clear., this will have been better evaluated on CT examinations performed Report electronically signed by: Dr. Ysabel Cee IMPRESSION: Multiple dilated small bowel loops up to 4.4 cm in caliber. Cannot exclude obstruction on these images. Close follow-up and repeat x-ray and/or surgical evaluation recommended. Consider follow-up x-ray in 2-[address] is not to be done. [facility] Feixiangren Information TechnologyWESTERN [facility] CENTERCategorical [place] CBC Auto Differentialon 07-14 Basophils (Bld) [#/Vol] 0.0 10*3/uL [facility] [place] Basophils/100 WBC (Bld) 0 % 0 - 1 % [place] Eosinophils (Bld) [#/Vol] 0.4 10*3/uL [place] Eosinophils/100 WBC (Bld) 6 % High 0 - 5 % [place] Erythrocyte distribution width (RBC) [Ratio] 13.1 % 11.5 - 14.5 % [place] Hematocrit (Bld) [Volume fraction] 22.1 % Low 42 - 52 % [place] Hemoglobin (Bld) [Mass/Vol] 7.2 g/dL Low 13.5 - 17.5 g/dL [place] Immature granulocytes (Bld) [#/Vol] 0.05 10*3/uL [place] Immature granulocytes/100 WBC (Bld) 0.6 % <5.00 [place] Lymphocytes (Bld) [#/Vol] 1.6 10*3/uL [place] Lymphocytes/100 WBC (Bld) 20 % 20 - 40 % [place] MCH (RBC) [Entitic mass] 29.6 pg 27 - 35 pg [place] MCHC (RBC) [Mass/Vol] 32.6 g/dL 32 - 36 g/dL [place] MCV (RBC) [Entitic vol] 91 fL 80 - 100 fL [place] Monocytes (Bld) [#/Vol] 0.9 10*3/uL [place] Monocytes/100 WBC (Bld) 12 % 1 - 15 % [place] Neutrophils Absolute 4.9 [place] Neutrophils/100 WBC (Bld) 62 % 50 - 70 % [place] Platelet mean volume (Bld) [Entitic vol] 10.3 fL 9.4 - 12.3 fL [place] Platelets (Bld) [#/Vol] 174 10*3/uL [place] RBC (Bld) [#/Vol] 2.43 10*6/uL [place] WBC (Bld) [#/Vol] 8 10*3/uL [place] Comprehensive Metabolic Pane l w/ Reflex to MGon 07-27-2020 Albumin [Mass/Vol] 2.5 g/dL Low 3.5 - 5 g/dL [place] ALP [Catalytic activity/Vol] 85 U/L 38 - 126 U/L [place] ALT [Catalytic activity/Vol] 11 U/L 0 - 50 U/L [place] AST [Catalytic activity/Vol] 17 U/L 17 - 59 U/L [place] Bilirubin Ql (U) No Result 0.2 - 1.3 mg/dL [place] Calcium [Mass/Vol] 7.5 mg/dL Low 8.4 - 10. 2 mg/dL [place] Chloride [Moles/Vol] 98 mmol/L [place] CO2 [Moles/Vol] 37 mmol/L [place] Creatinine [Mass/Vol] 0.66 mg/dL 0.66 - 1.25 mg/dL [place] GFR/1.73 sq M predicted among non-blacks MDRD (S/P/Bld) [Vol rate/Area] 104 mL/min/{1.73_m2} >60 mL/min/1.73m2 [place] Comment on above: Stage 1 Kidney damage (e.g., protein in the urine) with normal GFR >=90 Stage 2 Kidney damage with mild decrease in GFR 60-89 Stage 3a Moderate decrease in GFR 45-59 Stage 3b Moderate decrease in GFR 30-44 Stage 4 Severe reduction in GFR 15-29 Stage 5 Kidney failure <15 Glucose [Mass/Vol] 115 mg/dL High 65 - 100 mg/dL [place] Potassium [Moles/Vol] 3.3 mmol/L [place] Protein [Mass/Vol] 5.1 g/dL Low 6.3 - 8.2 g/dL [place] Sodium [Moles/Vol] 136 mmol/L [place] Urea nitrogen [Mass/Vol] 4 mg/dL Low 9 - 20 mg/dL [place] Culture, Urineon 07-27-2020 Culture No Growth at 48 Hours [place], [place] Preliminary Result No Growth 12 Hours [place], [place] Source Clean Catch [place] Magnesiumon 07-27-2020 Magnesium [Mass/Vol] 1.8 mg/dL 1.6 - 2 .3 mg/dL [place] Otheron 07-27-2020 Interpretation and review of laboratory results Abnormal [place] Surgical Pathologyon 020 perforated bowelPre- op diagnosis:Acsending colon and small bowel [facility] [place]CHO [id number] Assoc. Page 1 of [address] [place] [address] PROC: 07/22/2020 [facility] RECV: 07/24/[address] RPTD: 07/27/2020 [place] [address] LOC: YENI ACCT: [id number] SEX: M : 1960 AGE: 60 Y PATHOLOGY REPORT ATTN: LAYA RODRIGES REQ: LAYA RODRIGES Clinical Information: PERFORATED SMALL BOWEL FINAL DIAGNOSIS: Ileum, cecum, appendix and right colon, resection: Small bowel ulceration with associated perforation. Extensive hemorrhagic fibrous adhesions. Specimen: ASCENDING COLON, AND SMALL BOWEL Gross Examination: The container is labeled Pancho Mcpherson, ascending colon and small bowel. Received in formalin is a segmental resection of bowel including ileum, cecum, and right colon. The specimen measures approximately 60 cm in length. There is surrounding focally hemorrhagic adipose tissue. There is fibrinous exudate surrounding the portion of the ileum. The specimen is received partially open. A perforation is identified within the small bowel. The specimen is opened longitudinally revealing a focally hemorrhagic mucosal surface with erosions and linear erosions in the small bowel. There are no discrete masses or polyps. The appendix measures 5.5 cm in length x 0.7 cm in greatest diameter. The distal tip is narrow. Sections through the appendix reveal no discrete lesions. Also, in the specimen container is a separate small short segment of bowel measuring 5.5 cm in length. The fragment is opened revealing a adamson mucosal surface. No discrete lesions. Enamel Machine Operator sections are submitted. Cassette #1 - proximal and distal resection line; cassette #2 - appendix; cassette #3 - proximal ileum with linear erosion; cassettes #4 and #5 - perforations; cassette #6 - small bowel; and cassettes #7 and #8 - large bowel. #9 - separate section of bowel. PCF/DKR:[id number] Microscopic Examination: Sections of small bowel mucosa show areas of mucosal erosion. There is evidence of perforation with transmural ulceration and associated hemorrhagic fibrous adhesions. Fibrous adhesions are also identified on the appendiceal surface. Sections of large bowel are unremarkable. There is no evidence of dysplasia or malignancy. [id number] RAMON DAVALOS D.O., F.JamalP. [facility]/ [facility] Printed on: 07/27/[address] [place] [id number] Original print date: 07/27/2020 [place], [place] CBC Auto Differentialon 07-14 Basophils (Bld) [#/Vol] 0.0 10*3/uL [place] Basophils/100 WBC (Bld) 0 % 0 - 1 % [place] Eosinophils (Bld) [#/Vol] 0.4 10*3/uL [place] Eosinophils/100 WBC (Bld) 4 % 0 - 5 % [place] Erythrocyte distribution width (RBC) [Ratio] 13.3 % 11.5 - 14.5 % [place] Hematocrit (Bld) [Volume fraction] 23.4 % Low 42 - 52 % [place] Hemoglobin (Bld) [Mass/Vol] 7.5 g/dL Low 13.5 - 17.5 g/dL [place] Immature granulocytes (Bld) [#/Vol] 0.06 10*3/uL [place] Immature granulocytes/100 WBC (Bld) 0.7 % <5.00 [place] Lymphocytes (Bld) [#/Vol] 1.9 10*3/uL [place] Lymphocytes/100 WBC (Bld) 21 % 20 - 40 % [place] MCH (RBC) [Entitic mass] 29.3 pg 27 - 35 pg [place] MCHC (RBC) [Mass/Vol] 32.1 g/dL 32 - 36 g/dL [place] MCV (RBC) [Entitic vol] 91 fL 80 - 100 fL [place] Monocytes (Bld) [#/Vol] 1.0 10*3/uL [place] Monocytes/100 WBC (Bld) 11 % 1 - 15 % [place] Neutrophils Absolute 5.6 [place] Neutrophils/100 WBC (Bld) 63 % 50 - 70 % [place] Platelet mean volume (Bld) [Entitic vol] 11.1 fL 9.4 - 12.3 fL [place] Platelets (Bld) [#/Vol] 161 10*3/uL [place] RBC (Bld) [#/Vol] 2.56 10*6/uL [place] WBC (Bld) [#/Vol] 9 10*3/uL [place] Comprehensive Metabolic Pane l w/ Reflex to MGon 07-26-2020 Albumin [Mass/Vol] 2.6 g/dL Low 3.5 - 5 g/dL [place] ALP [Catalytic activity/Vol] 60 U/L 38 - 126 U/L [place] ALT [Catalytic activity/Vol] 11 U/L 0 - 50 U/L [place] AST [Catalytic activity/Vol] 21 U/L 17 - 59 U/L [place] Bilirubin Ql (U) 0.3 mg/dL 0.2 - 1.3 mg/dL [place] Calcium [Mass/Vol] 7.6 mg/dL Low 8.4 - 10. 2 mg/dL [place] Chloride [Moles/Vol] 103 mmol/L [place] CO2 [Moles/Vol] 37 mmol/L [facility] [place] Creatinine [Mass/Vol] 0.70 mg/dL 0.66 - 1.25 mg/dL [place] GFR/1.73 sq M predicted among non-blacks MDRD (S/P/Bld) [Vol rate/Area] 102 mL/min/{1.73_m2} >60 mL/min/1.73m2 [place] Comment on above: Stage 1 Kidney damage (e.g., protein in the urine) with normal GFR >=90 Stage 2 Kidney damage with mild decrease in GFR 60-89 Stage 3a Moderate decrease in GFR 45-59 Stage 3b Moderate decrease in GFR 30-44 Stage 4 Severe reduction in GFR 15-29 Stage 5 Kidney failure <15 Glucose [Mass/Vol] 120 mg/dL High 65 - 100 mg/dL [place] Potassium [Moles/Vol] 3.0 mmol/L [place] Protein [Mass/Vol] 5.2 g/dL Low 6.3 - 8.2 g/dL [place] Sodium [Moles/Vol] 142 mmol/L [place] Urea nitrogen [Mass/Vol] 2 mg/dL Low 9 - 20 mg/dL [place] Magnesiumon 07-26-2020 Magnesium [Mass/Vol] 1.9 mg/dL 1.6 - 2 .3 mg/dL [place] Otheron 07-26-2020 Interpretation and review of laboratory results Abnormal [place] Potassium w/ Reflex to Magne siumon 07-26-2020 Potassium [Moles/Vol] 3.6 mmol/L [place] TSH with Reflexon 07-26-2020 TSH Qn 0.470 m[IU]/L [place] Basic Metabolic Panel w/ Ref robert to MGon 07-25-2020 Calcium [Mass/Vol] 7.8 mg/dL Low 8.4 - 10. 2 mg/dL [place] Chloride [Moles/Vol] 103 mmol/L [place] CO2 [Moles/Vol] 33 mmol/L [facility] [place] Creatinine [Mass/Vol] 0.75 mg/dL 0.66 - 1.25 mg/dL [place] GFR/1.73 sq M predicted among non-blacks MDRD (S/P/Bld) [Vol rate/Area] 99 mL/min/{1.73_m2} >60 mL/min/1.73m2 [place] Comment on above: Stage 1 Kidney damage (e.g., protein in the urine) with normal GFR >=90 Stage 2 Kidney damage with mild decrease in GFR 60-89 Stage 3a Moderate decrease in GFR 45-59 Stage 3b Moderate decrease in GFR 30-44 Stage 4 Severe reduction in GFR 15-29 Stage 5 Kidney failure <15 Glucose [Mass/Vol] 114 mg/dL High 65 - 100 mg/dL [place] Interpretation and review of laboratory results Abnormal [place] Potassium [Moles/Vol] 3.3 mmol/L [place] Sodium [Moles/Vol] 140 mmol/L [place] Urea nitrogen [Mass/Vol] 5 mg/dL Low 9 - 20 mg/dL [place] CBC Auto Differentialon 07-14 Basophils (Bld) [#/Vol] 0.0 10*3/uL [place] Basophils/100 WBC (Bld) 0 % 0 - 1 % [place] Eosinophils (Bld) [#/Vol] 0.3 10*3/uL [place] Eosinophils/100 WBC (Bld) 3 % 0 - 5 % [place] Erythrocyte distribution width (RBC) [Ratio] 13.9 % 11.5 - 14.5 % [place] Hematocrit (Bld) [Volume fraction] 22.9 % Low 42 - 52 % [place] Hemoglobin (Bld) [Mass/Vol] 7.4 g/dL Low 13.5 - 17.5 g/dL [place] Immature granulocytes (Bld) [#/Vol] 0.05 10*3/uL [place] Immature granulocytes/100 WBC (Bld) 0.5 % <5.00 [place] Interpretation and review of laboratory results Abnormal [place] Lymphocytes (Bld) [#/Vol] 2.1 10*3/uL [place] Lymphocytes/100 WBC (Bld) 23 % 20 - 40 % [place] MCH (RBC) [Entitic mass] 29.7 pg 27 - 35 pg [place] MCHC (RBC) [Mass/Vol] 32.3 g/dL 32 - 36 g/dL [place] MCV (RBC) [Entitic vol] 92 fL 80 - 100 fL [place] Monocytes (Bld) [#/Vol] 0.9 10*3/uL [place] Monocytes/100 WBC (Bld) 10 % 1 - 15 % [place] Neutrophils Absolute 5.8 [place] Neutrophils/100 WBC (Bld) 64 % 50 - 70 % [place] Platelet mean volume (Bld) [Entitic vol] 11.3 fL 9.4 - 12.3 fL [place] Platelets (Bld) [#/Vol] 139 10*3/uL [place] RBC (Bld) [#/Vol] 2.49 10*6/uL [place] WBC (Bld) [#/Vol] 9.1 10*3/uL [place] Magnesiumon 07-25-2020 Magnesium [Mass/Vol] 2.0 mg/dL 1.6 - 2 .3 mg/dL [place] Basic Metabolic Panel w/ Ref robert to MGon 07-24-2020 Calcium [Mass/Vol] 7.4 mg/dL Low 8.4 - 10. 2 mg/dL [place] Chloride [Moles/Vol] 106 mmol/L [place] CO2 [Moles/Vol] 27 mmol/L [place] Creatinine [Mass/Vol] 0.58 mg/dL Low 0.66 - 1.25 mg/dL [place] GFR/1.73 sq M predicted among non-blacks MDRD (S/P/Bld) [Vol rate/Area] 110 mL/min/{1.73_m2} >60 mL/min/1.73m2 [place] Comment on above: Stage 1 Kidney damage (e.g., protein in the urine) with normal GFR >=90 Stage 2 Kidney damage with mild decrease in GFR 60-89 Stage 3a Moderate decrease in GFR 45-59 Stage 3b Moderate decrease in GFR 30-44 Stage 4 Severe reduction in GFR 15-29 Stage 5 Kidney failure <15 Glucose [Mass/Vol] 418 mg/dL High 65 - 100 mg/dL [place] Interpretation and review of laboratory results Abnormal [place] Potassium [Moles/Vol] 3.9 mmol/L [place] Sodium [Moles/Vol] 137 mmol/L [place] Urea nitrogen [Mass/Vol] 7 mg/dL Low 9 - 20 mg/dL [place] Calcium [Mass/Vol] 7.0 mg/dL Low 8.4 - 10. 2 mg/dL [place] Chloride [Moles/Vol] 102 mmol/L [place] CO2 [Moles/Vol] 29 mmol/L [place] Creatinine [Mass/Vol] 0.67 mg/dL 0.66 - 1.25 mg/dL [place] GFR/1.73 sq M predicted among non-blacks MDRD (S/P/Bld) [Vol rate/Area] 104 mL/min/{1.73_m2} >60 mL/min/1.73m2 [place] Comment on above: Stage 1 Kidney damage (e.g., protein in the urine) with normal GFR >=90 Stage 2 Kidney damage with mild decrease in GFR 60-89 Stage 3a Moderate decrease in GFR 45-59 Stage 3b Moderate decrease in GFR 30-44 Stage 4 Severe reduction in GFR 15-29 Stage 5 Kidney failure <15 Glucose [Mass/Vol] 207 mg/dL High 65 - 100 mg/dL [place] Interpretation and review of laboratory results Abnormal [place] Potassium [Moles/Vol] 3.6 mmol/L [place] Sodium [Moles/Vol] 136 mmol/L [place] Urea nitrogen [Mass/Vol] 11 mg/dL 9 - 20 mg/dL [place] CBCon 07-24-2020 Erythrocyte distribution width (RBC) [Ratio] 13.8 % 11.5 - 14.5 % [place] Hematocrit (Bld) [Volume fraction] 25.5 % Low 42 - 52 % [place] Hemoglobin (Bld) [Mass/Vol] 8.2 g/dL Low 13.5 - 17.5 g/dL [place] Interpretation and review of laboratory results Abnormal [place] MCH (RBC) [Entitic mass] 29.3 pg 27 - 35 pg [place] MCHC (RBC) [Mass/Vol] 32.2 g/dL 32 - 36 g/dL [place] MCV (RBC) [Entitic vol] 91 fL 80 - 100 fL [place] Platelet mean volume (Bld) [Entitic vol] 11.1 fL 9.4 - 12.3 fL [place] Platelets (Bld) [#/Vol] 147 10*3/uL [place] RBC (Bld) [#/Vol] 2.8 10*6/uL [place] WBC (Bld) [#/Vol] 11 10*3/uL [place] CBC Auto Differentialon 07-14 Basophils (Bld) [#/Vol] 0.0 10*3/uL [place] Basophils/100 WBC (Bld) 0 % 0 - 1 % [place] Eosinophils (Bld) [#/Vol] 0.0 10*3/uL [place] Eosinophils/100 WBC (Bld) 1 % 0 - 5 % [place] Erythrocyte distribution width (RBC) [Ratio] 14.1 % 11.5 - 14.5 % [place] Hematocrit (Bld) [Volume fraction] 21.9 % Low 42 - 52 % [place] Hemoglobin (Bld) [Mass/Vol] 7.0 g/dL Low 13.5 - 17.5 g/dL [place] Immature granulocytes (Bld) [#/Vol] 0.06 10*3/uL [place] Immature granulocytes/100 WBC (Bld) 0.7 % <5.00 [place] Interpretation and review of laboratory results Abnormal [place] Lymphocytes (Bld) [#/Vol] 1.6 10*3/uL [place] Lymphocytes/100 WBC (Bld) 18 % Low 20 - 40 % [place] MCH (RBC) [Entitic mass] 30.0 pg 27 - 35 pg [place] MCHC (RBC) [Mass/Vol] 32.0 g/dL 32 - 36 g/dL [place] MCV (RBC) [Entitic vol] 94 fL 80 - 100 fL [place] Monocytes (Bld) [#/Vol] 0.9 10*3/uL [place] Monocytes/100 WBC (Bld) 11 % 1 - 15 % [place] Neutrophils Absolute 6.2 [place] Neutrophils/100 WBC (Bld) 71 % High 50 - 70 % [place] Platelet mean volume (Bld) [Entitic vol] 12.2 fL 9.4 - 12.3 fL [place] Platelets (Bld) [#/Vol] 109 10*3/uL [place] RBC (Bld) [#/Vol] 2.33 10*6/uL [place] WBC (Bld) [#/Vol] 8.9 10*3/uL [place] Basophils (Bld) [#/Vol] 0.0 10*3/uL [place] Basophils/100 WBC (Bld) 0 % 0 - 1 % [place] Eosinophils (Bld) [#/Vol] 0.0 10*3/uL [place] Eosinophils/100 WBC (Bld) 0 % 0 - 5 % [place] Erythrocyte distribution width (RBC) [Ratio] 13.5 % 11.5 - 14.5 % [place] Hematocrit (Bld) [Volume fraction] 17.7 % Low 42 - 52 % [place] Hemoglobin (Bld) [Mass/Vol] 5.7 g/dL Critically low 13.5 - 17.5 g/dL [place] Comment on above: Critical Result called to on 07/24/2020 at 1:02 AM by PATRICIA CALDWELL. Results were read back to callerRiver Mcgrath in CCu (HGB) Immature granulocytes (Bld) [#/Vol] 0.04 10*3/uL [place] Immature granulocytes/100 WBC (Bld) 0.5 % <5.00 [place] Interpretation and review of laboratory results Abnormal [place] Lymphocytes (Bld) [#/Vol] 1.0 10*3/uL [place] Lymphocytes/100 WBC (Bld) 13 % Low 20 - 40 % [place] MCH (RBC) [Entitic mass] 29.4 pg 27 - 35 pg [place] MCHC (RBC) [Mass/Vol] 32.2 g/dL 32 - 36 g/dL [place] MCV (RBC) [Entitic vol] 91 fL 80 - 100 fL [place] Monocytes (Bld) [#/Vol] 0.4 10*3/uL [place] Monocytes/100 WBC (Bld) 5 % 1 - 15 % [place] Neutrophils Absolute 6.4 [place] Neutrophils/100 WBC (Bld) 82 % High 50 - 70 % [place] Platelet mean volume (Bld) [Entitic vol] 11.6 fL 9.4 - 12.3 fL [place] Platelets (Bld) [#/Vol] 130 10*3/uL [place] RBC (Bld) [#/Vol] 1.94 10*6/uL [place] WBC (Bld) [#/Vol] 7.8 10*3/uL [place] ABDOMEN PELVIS WO CONTRAS T Additional Contrast? Noneon 07-24-2020 CT ABDOMEN PELVIS WO CONTRAST, 07/24/2020 1:52 AM EST, INDICATION: Pulled Pandey cath out with balloon intact. Large amount of bleeding and edema ADDITIONAL CLINICAL INFORMATION: Ordering Provider Reason For Exam: Technologist Note: Additional: None COMPARISON: 07/22/2020 TECHNIQUE: CT of the abdomen and pelvis was performed without oral or intravenous contrast at referring clinician request. CT dose reduction technique was used, including Automated Exposure Control. FINDINGS: Lung bases: Lung bases are clear. There is no visualized pleural or pericardial effusion. GI System: Motion artifact limits evaluation of the intestine. Absence of oral contrast limits evaluation of the intestine. Postsurgical changes are identified involving the right colon/cecum. Liver: Visualized unenhanced liver appears within normal limits. Biliary system: Gallbladder is present. There is no intra or extrahepatic biliary ductal dilatation. Spleen: Unenhanced spleen is within normal limits. Pancreas: Unenhanced pancreas is within normal limits. System: The unenhanced kidneys and adrenal glands are within normal limits. Pelvis: There is a 6 cm hematoma in the urinary bladder. A Pandey catheter is visualized in the urinary bladder. There is a large amount of air surrounding the penile shaft concerning for perforation and/or gas producing infection. Peritoneal cavity: There is a 5.5 x 2.2 cm fluid collection adjacent to the gallbladder, and subadjacent to the anterior abdominal wall of uncertain etiology. There is a small amount of fluid identified in the right paracolic gutter. Vascular: Within normal limits. Bones: No destructive osseous changes. Motion artifact limits evaluation.: [1. Interval development of a 6 cm hematoma within the urinary bladder. Pandey catheter tip identified within the urinary bladder. 2. Large amount of air surrounding the penile shaft concerning for urethral perforation and/or gas producing infection. 3. Postsurgical changes involving the right colon/cecum. Interval resolution of the paracolic air-fluid collection identified on the prior examination.] Overall evaluation of the intestine is limited in absence of oral contrast. 4. A 5.5 x 2.2 cm fluid collection adjacent to the gallbladder of uncertain etiology, infection cannot be excluded. Evaluation is limited absence of IV contrast. Report electronically signed by: Dr. Hector Cheatham [facility], [place] QUEENIE [facility] [place] Yovanny Calderon Radiant Results From [facility] - 07/24/2020 2:[address] ABDOMEN PELVIS WO CONTRAST, 07/24/2020 1:52 AM EST, INDICATION: Pulled Pandey cath out with balloon intact. Large amount of bleeding and edema ADDITIONAL CLINICAL INFORMATION: Ordering Provider Reason For Exam: Technologist Note: Additional: None COMPARISON: 07/22/2020 TECHNIQUE: CT of the abdomen and pelvis was performed without oral or intravenous contrast at referring clinician request. CT dose reduction technique was used, including Automated Exposure Control. FINDINGS: Lung bases: Lung bases are clear. There is no visualized pleural or pericardial effusion. GI System: Motion artifact limits evaluation of the intestine. Absence of oral contrast limits evaluation of the intestine. Postsurgical changes are identified involving the right colon/cecum. Liver: Visualized unenhanced liver appears within normal limits. Biliary system: Gallbladder is present. There is no intra or extrahepatic biliary ductal dilatation. Spleen: Unenhanced spleen is within normal limits. Pancreas: Unenhanced pancreas is within normal limits. System: The unenhanced kidneys and adrenal glands are within normal limits. Pelvis: There is a 6 cm hematoma in the urinary bladder. A Pandey catheter is visualized in the urinary bladder. There is a large amount of air surrounding the penile shaft concerning for perforation and/or gas producing infection. Peritoneal cavity: There is a 5.5 x 2.2 cm fluid collection adjacent to the gallbladder, and subadjacent to the anterior abdominal wall of uncertain etiology. There is a small amount of fluid identified in the right paracolic gutter. Vascular: Within normal limits. Bones: No destructive osseous changes. Motion artifact limits evaluation.: [1. Interval development of a 6 cm hematoma within the urinary bladder. Pandey catheter tip identified within the urinary bladder. 2. Large amount of air surrounding the penile shaft concerning for urethral perforation and/or gas producing infection. 3. Postsurgical changes involving the right colon/cecum. Interval resolution of the paracolic air-fluid collection identified on the prior examination.] Overall evaluation of the intestine is limited in absence of oral contrast. 4. A 5.5 x 2.2 cm fluid collection adjacent to the gallbladder of uncertain etiology, infection cannot be excluded. Evaluation is limited absence of IV contrast. Report electronically signed by: Dr. Hector Cheatham IMPRESSION: IMPRESSION [place], [place] Hemoglobin A1Con 07-24-2020 Glucose [Mass/Vol] 95.49 mg/dL [place], [place] Comment on above: Estimated Average Glucose is a caluculated value from Hemoglobin A1C and is professional healthcare representative of the average blood glucose level in the last 2-3 month period. HbA1c (Bld) [Mass fraction] 5.5 % 4 - 6 % [place] Comment on above: [place] [employer] guidelines indicate that patients with HgbA1C in the range of 5.7-6.4% are at increased risk for development of diabetes, and intervention by lifestyle modification may be beneficial. HgbA1C greater than or equal to 6.5% is considered diagnostic of diabetes. Otheron 07-24-2020 Clerical Check PASS PASS [place], [place] Expiration Date 08/19/2020 Benita Painter [facility] [place] RELEASED BY Ramila [place], [place] Crossmatch Result COMPATIBLE COMPATIBLE [facility] [place] Expiration Date 08-19-2020 Benita Painter [facility] [place] Unit ABO Positive [facility] [place] PREPARE RBC (CROSSMATCH), 2 Unitson 07-24-2020 Arm Band Number [id number] [facility] [place] CALLED TO Ramila KELLER in CCU [facility] [place] Number of Units 2 2 [facility] [place] Performed by: Patricia Caldwell [facility] [place] Unit # [id number] 00 8 [facility] [place] Unit # [id number] 00 A [place], [place] TYPE AND SCREENon 07-24-2020 ABO A [place] Arm Band Number [id number] [facility] [place] Rh Factor Positive [place], [place] Specimen is valid fo r 3 days - nurse to verify valid specimen [place], [place] Basic Metabolic Panel w/ Ref robert to MGon 07-23-2020 Calcium [Mass/Vol] 8.1 mg/dL Low 8.4 - 10. 2 mg/dL [place] Chloride [Moles/Vol] 102 mmol/L [place] CO2 [Moles/Vol] 29 mmol/L [place], [place] Creatinine [Mass/Vol] 0.82 mg/dL 0.66 - 1.25 mg/dL [place] GFR/1.73 sq M predicted among non-blacks MDRD (S/P/Bld) [Vol rate/Area] 95 mL/min/{1.73_m2} >60 mL/min/1.73m2 [place] Comment on above: Stage 1 Kidney damage (e.g., protein in the urine) with normal GFR >=90 Stage 2 Kidney damage with mild decrease in GFR 60-89 Stage 3a Moderate decrease in GFR 45-59 Stage 3b Moderate decrease in GFR 30-44 Stage 4 Severe reduction in GFR 15-29 Stage 5 Kidney failure <15 Glucose [Mass/Vol] 186 mg/dL High 65 - 100 mg/dL [place] Interpretation and review of laboratory results Abnormal [place] Potassium [Moles/Vol] 4.1 mmol/L [place] Sodium [Moles/Vol] 139 mmol/L [place] Urea nitrogen [Mass/Vol] 11 mg/dL 9 - 20 mg/dL [place] CBC Auto Differentialon 07-14 0-2020 Basophils (Bld) [#/Vol] 0.0 10*3/uL [place] Basophils/100 WBC (Bld) 0 % 0 - 1 % [place] Eosinophils (Bld) [#/Vol] 0.0 10*3/uL [place] Eosinophils/100 WBC (Bld) 0 % 0 - 5 % [place] Erythrocyte distribution width (RBC) [Ratio] 13.4 % 11.5 - 14.5 % [place] Hematocrit (Bld) [Volume fraction] 29.2 % Low 42 - 52 % [place] Hemoglobin (Bld) [Mass/Vol] 9.2 g/dL Low 13.5 - 17.5 g/dL [place] Immature granulocytes (Bld) [#/Vol] 0.05 10*3/uL [place] Immature granulocytes/100 WBC (Bld) 0.4 % <5.00 [place] Interpretation and review of laboratory results Abnormal [place] Lymphocytes (Bld) [#/Vol] 1.6 10*3/uL [place] Lymphocytes/100 WBC (Bld) 13 % Low 20 - 40 % [place] MCH (RBC) [Entitic mass] 28.6 pg 27 - 35 pg [place] MCHC (RBC) [Mass/Vol] 31.5 g/dL Low 32 - 36 g/dL [place] MCV (RBC) [Entitic vol] 91 fL 80 - 100 fL [place] Monocytes (Bld) [#/Vol] 1.0 10*3/uL [place] Monocytes/100 WBC (Bld) 8 % 1 - 15 % [place] Neutrophils Absolute 9.9 High [place] Neutrophils/100 WBC (Bld) 79 % High 50 - 70 % [place] Platelet mean volume (Bld) [Entitic vol] 11.6 fL 9.4 - 12.3 fL [place], [place] Platelets (Bld) [#/Vol] 195 10*3/uL [place] RBC (Bld) [#/Vol] 3.22 10*6/uL [place] WBC (Bld) [#/Vol] 12.6 10*3/uL [place] CT CERVICAL SPINE WO CONTRAS [facility] 07-23-2020 1. No acute fracture or subluxation. 2. Multilevel degenerative changes as described above. [place] CERVICAL SPINE WITHOUT CONTRAST HISTORY: s/p fall in patient with memory deficit, rule out fracture. COMPARISON: CT cervical spine 06/18/2020. TECHNIQUE: Helical CT images were performed of the cervical spine without intravenous contrast. Dose reduction techniques were achieved by using automated exposure control and/or adjustment of mA and/or kV according to patient size and/or use of iterative reconstruction technique. FINDINGS: REHABILITATION CENTER MANAGER RADIOGRAPH: Unremarkable. MINERALIZATION: Normal. CRANIOCERVICAL AND ATLANTOAXIAL ARTICULATIONS: Intact with no traumatic subluxation. VERTEBRAL BODIES: Normal in height with no acute compression fracture. DISC SPACES: Normal in height with adjacent prominent osteophytes throughout the cervical spine consistent with degenerative changes. ALIGNMENT: Normal. POSTERIOR ELEMENTS: Intact. ODONTOID PROCESS: Intact. VISUALIZED SKULL BASE: Unremarkable. SPINAL CANAL/NEURAL FORAMEN: Moderate multilevel neural foraminal stenosis due to facet and uncovertebral hypertrophy. Several posterior disc osteophyte complexes with associated mild to moderate canal stenosis, particularly at C3-C4 and C4-C5. UPPER THORAX: Unremarkable. SOFT TISSUES OF THE NECK: Unremarkable. Report electronically signed by: Dr. Andrei Bishop [place], [place] Yumiko, Incoming [facility]:[address] CERVICAL SPINE WITHOUT CONTRAST HISTORY: s/p fall in patient with memory deficit, rule out fracture. COMPARISON: CT cervical spine 06/18/2020. TECHNIQUE: Helical CT images were performed of the cervical spine without intravenous contrast. Dose reduction techniques were achieved by using automated exposure control and/or adjustment of mA and/or kV according to patient size and/or use of iterative reconstruction technique. FINDINGS: REHABILITATION CENTER MANAGER RADIOGRAPH: Unremarkable. MINERALIZATION: Normal. CRANIOCERVICAL AND ATLANTOAXIAL ARTICULATIONS: Intact with no traumatic subluxation. VERTEBRAL BODIES: Normal in height with no acute compression fracture. DISC SPACES: Normal in height with adjacent prominent osteophytes throughout the cervical spine consistent with degenerative changes. ALIGNMENT: Normal. POSTERIOR ELEMENTS: Intact. ODONTOID PROCESS: Intact. VISUALIZED SKULL BASE: Unremarkable. SPINAL CANAL/NEURAL FORAMEN: Moderate multilevel neural foraminal stenosis due to facet and uncovertebral hypertrophy. Several posterior disc osteophyte complexes with associated mild to moderate canal stenosis, particularly at C3-C4 and C4-C5. UPPER THORAX: Unremarkable. SOFT TISSUES OF THE NECK: Unremarkable. Report electronically signed by: Dr. Andrei Bishop IMPRESSION: 1. No acute fracture or subluxation. 2. Multilevel degenerative changes as described above. [place] CT HEAD WO [facility] 2019 [facility] Radiant Results From [facility] - 07/23/2020 8:[address] BRAIN WITHOUT CONTRAST HISTORY: head trauma s/p fall. COMPARISON: CT brain 06/23/2020. TECHNIQUE: Helical CT images were acquired from the skull base to the vertex without the use of intravenous contrast. Dose reduction techniques were achieved by using automated exposure control and/or adjustment of mA and/or kV according to patient size and/or use of iterative reconstruction technique. FINDINGS: BRAIN PARENCHYMA/CSF SPACES: Ventricles are normal in size for age. There is no hemorrhage, mass effect or midline shift. Moderate low attenuation in the white matter consistent with chronic microvascular ischemia. PARANASAL SINUSES: Minimal chronic sinusitis of the maxillary and ethmoid sinuses. SKULL BASE AND CALVARIUM: Remote angulated nasal bone fractures which appear stable. EXTRACRANIAL SOFT TISSUES: Stable mild subcutaneous stranding in the superior and posterior scalp which may be due to chronic scarring. Report electronically signed by: Dr. Andrei Bishop IMPRESSION: 1. No acute intracranial abnormality. 2. Chronic small vessel ischemia, minimal chronic sinusitis and remote nasal bone fractures. [facility] [place] 1. No acute intracranial abnormality. 2. Chronic small vessel ischemia, minimal chronic sinusitis and remote nasal bone fractures. [place] BRAIN WITHOUT CONTRAST HISTORY: head trauma s/p fall. COMPARISON: CT brain 06/23/2020. TECHNIQUE: Helical CT images were acquired from the skull base to the vertex without the use of intravenous contrast. Dose reduction techniques were achieved by using automated exposure control and/or adjustment of mA and/or kV according to patient size and/or use of iterative reconstruction technique. FINDINGS: BRAIN PARENCHYMA/CSF SPACES: Ventricles are normal in size for age. There is no hemorrhage, mass effect or midline shift. Moderate low attenuation in the white matter consistent with chronic microvascular ischemia. PARANASAL SINUSES: Minimal chronic sinusitis of the maxillary and ethmoid sinuses. SKULL BASE AND CALVARIUM: Remote angulated nasal bone fractures which appear stable. EXTRACRANIAL SOFT TISSUES: Stable mild subcutaneous stranding in the superior and posterior scalp which may be due to chronic scarring. Report electronically signed by: Dr. Andrei Bishop [place], [place] Amylaseon 07-22-2020 Amylase [Catalytic activity/Vol] 70 U/L 30 - 110 U/L [place] CBC Auto Differentialon Basophils (Bld) [#/Vol] 0.0 10*3/uL [place] Basophils/100 WBC (Bld) 0 % 0 - 1 % [place] Eosinophils (Bld) [#/Vol] 0.0 10*3/uL [place] Eosinophils/100 WBC (Bld) 0 % 0 - 5 % [place] Erythrocyte distribution width (RBC) [Ratio] 13.1 % 11.5 - 14.5 % [place] Hematocrit (Bld) [Volume fraction] 47.0 % 42 - 52 % [place] Hemoglobin (Bld) [Mass/Vol] 15.4 g/dL 13.5 - 17.5 g/dL [place] Immature granulocytes (Bld) [#/Vol] 0.08 10*3/uL [place] Immature granulocytes/100 WBC (Bld) 0.5 % <5.00 [place] Interpretation and review of laboratory results Abnormal [place] Lymphocytes (Bld) [#/Vol] 1.4 10*3/uL [place] Lymphocytes/100 WBC (Bld) 8 % Low 20 - 40 % [place] MCH (RBC) [Entitic mass] 29.2 pg 27 - 35 pg [place] MCHC (RBC) [Mass/Vol] 32.8 g/dL 32 - 36 g/dL [place] MCV (RBC) [Entitic vol] 89 fL 80 - 100 fL [place] Monocytes (Bld) [#/Vol] 1.0 10*3/uL [place] Monocytes/100 WBC (Bld) 6 % 1 - 15 % [place] Neutrophils Absolute 13.7 [place], [place] Neutrophils/100 WBC (Bld) 85 % High 50 - 70 % [place] Platelet mean volume (Bld) [Entitic vol] 10.9 fL 9.4 - 12.3 fL [place] Platelets (Bld) [#/Vol] 284 10*3/uL [place] RBC (Bld) [#/Vol] 5.27 10*6/uL [place] WBC (Bld) [#/Vol] 16.2 10*3/uL [place] COVID-19 Rapid (ID NOW)on SARS-CoV-2 NOT DETECTED NOT DETECTED [place] ABDOMEN PELVIS WO CONTRAS T Additional Contrast? Noneon 07-22-2020 1. Dilated small bow el loops in the right lower quadrant with a tract of extraluminal gas in this area, indicative of focal perforation, with a moderate amount of surrounding infiltrative/inflammato ry changes. There are 2 linear metallic foreign bodies within one of these dilated loops as well as pneumatosis intestinalis, that is suspicious for a mechanical perforation related to these foreign bodies. The small bowel dilatation could be due to a partial obstruction and/or an ileus. 2. Small amount of free fluid as well as bubbles of free intraperitoneal gas in the upper abdomen. No loculated fluid collections are identified to suggest an abscess. 3. Mild fatty infiltration of the liver. 4. Nonobstructing left renal calculi. No hydronephrosis. Critical results were discussed with Dr. Lynn on 07/22/2020 at 1:52 PM. [facility] [place], [place] CT ABDOMEN AND PELVI S WITHOUT IV CONTRAST, 07/22/2020 COMPARISON: None. ADDITIONAL HISTORY: Abdominal pain. TECHNIQUE: Helical imaging was performed from above the kidneys through the pubic symphysis without intravenous or oral contrast. Multiplanar reconstructions were created. Dose reduction techniques were achieved by using: automated exposure control and/or adjustment of mA and/or kV according to patient size and/or use of iterative reconstruction technique. FINDINGS: Motion artifact degrades image quality. CT ABDOMEN: The heart is mildly enlarged. There is a prominent pericardial fat pad, but no pericardial effusion is identified. Faint ground-glass opacities are noted in the lung bases along with a small calcified granuloma in the right lower lobe. No pleural effusion is identified. There are mild atherosclerotic changes in a normal caliber abdominal aorta. There are dilated loops of small bowel in the right lower quadrant that contain fluid and debris, indicative of stasis. These loops measure up to 3.8 cm in diameter. There is a moderate amount of hazy infiltrative changes surrounding these dilated bowel loops as well as a tract of extraluminal gas adjacent to a right lower quadrant. Multiple bubbles of free intraperitoneal gas are also noted in the mid-upper abdomen. There are 2 linear metallic foreign bodies within the dilated bowel loop adjacent to the free air that both have a C shape. One measures approximately 2.6 cm in length and the other measures approximately 3.9 cm in length. There is pneumatosis intestinalis within this loop. Distal to the inflammatory changes described above, the terminal ileum is normal in caliber and does not appear significantly thickened. The cecum is decompressed and grossly normal in appearance. The appendix appears to track posterior and inferior to this process without evidence of an appendicitis. There is a small amount of ascites in the upper abdomen. There is mild decreased attenuation of the hepatic parenchyma, compatible with mild fatty infiltration. No significant abnormality is identified in the spleen, pancreas, adrenal glands, or right kidney. There are a couple of punctate nonobstructing calculi in the left kidney. No hydronephrosis or obstructing calculi are identified. No calcified gallstones or biliary ductal dilatation is identified. CT PELVIS: No calculi are seen in the bladder or distal ureters. The prostate is normal in size. Trace free fluid is seen inferior to the inflammatory changes described above within the right lower quadrant. No loculated fluid collections are identified in the pelvis. No lymphadenopathy is identified. No suspicious osseous lesion is identified. Report electronically signed by: Dr. Justen Newberry [place], [place] Yumiko, Yovanny [facility]:[address] ABDOMEN AND PELVIS WITHOUT IV CONTRAST, 07/22/2020 COMPARISON: None. ADDITIONAL HISTORY: Abdominal pain. TECHNIQUE: Helical imaging was performed from above the kidneys through the pubic symphysis without intravenous or oral contrast. Multiplanar reconstructions were created. Dose reduction techniques were achieved by using: automated exposure control and/or adjustment of mA and/or kV according to patient size and/or use of iterative reconstruction technique. FINDINGS: Motion artifact degrades image quality. CT ABDOMEN: The heart is mildly enlarged. There is a prominent pericardial fat pad, but no pericardial effusion is identified. Faint ground-glass opacities are noted in the lung bases along with a small calcified granuloma in the right lower lobe. No pleural effusion is identified. There are mild atherosclerotic changes in a normal caliber abdominal aorta. There are dilated loops of small bowel in the right lower quadrant that contain fluid and debris, indicative of stasis. These loops measure up to 3.8 cm in diameter. There is a moderate amount of hazy infiltrative changes surrounding these dilated bowel loops as well as a tract of extraluminal gas adjacent to a right lower quadrant. Multiple bubbles of free intraperitoneal gas are also noted in the mid-upper abdomen. There are 2 linear metallic foreign bodies within the dilated bowel loop adjacent to the free air that both have a C shape. One measures approximately 2.6 cm in length and the other measures approximately 3.9 cm in length. There is pneumatosis intestinalis within this loop. Distal to the inflammatory changes described above, the terminal ileum is normal in caliber and does not appear significantly thickened. The cecum is decompressed and grossly normal in appearance. The appendix appears to track posterior and inferior to this process without evidence of an appendicitis. There is a small amount of ascites in the upper abdomen. There is mild decreased attenuation of the hepatic parenchyma, compatible with mild fatty infiltration. No significant abnormality is identified in the spleen, pancreas, adrenal glands, or right kidney. There are a couple of punctate nonobstructing calculi in the left kidney. No hydronephrosis or obstructing calculi are identified. No calcified gallstones or biliary ductal dilatation is identified. CT PELVIS: No calculi are seen in the bladder or distal ureters. The prostate is normal in size. Trace free fluid is seen inferior to the inflammatory changes described above within the right lower quadrant. No loculated fluid collections are identified in the pelvis. No lymphadenopathy is identified. No suspicious osseous lesion is identified. Report electronically signed by: Dr. Justen Newberry IMPRESSION: 1. Dilated small bowel loops in the right lower quadrant with a tract of extraluminal gas in this area, indicative of focal perforation, with a moderate amount of surrounding infiltrative/inflammato ry changes. There are 2 linear metallic foreign bodies within one of these dilated loops as well as pneumatosis intestinalis, that is suspicious for a mechanical perforation related to these foreign bodies. The small bowel dilatation could be due to a partial obstruction and/or an ileus. 2. Small amount of free fluid as well as bubbles of free intraperitoneal gas in the upper abdomen. No loculated fluid collections are identified to suggest an abscess. 3. Mild fatty infiltration of the liver. 4. Nonobstructing left renal calculi. No hydronephrosis. Critical results were discussed with Dr. Lynn on 07/22/2020 at 1:52 PM. [place] Comprehensive Metabolic Pane l w/ Reflex to MGon 07-22-2020 Albumin [Mass/Vol] 4.2 g/dL 3.5 - 5 g/dL [place] ALP [Catalytic activity/Vol] 115 U/L 38 - 126 U/L [place] ALT [Catalytic activity/Vol] 17 U/L 0 - 50 U/L [place] AST [Catalytic activity/Vol] 21 U/L 17 - 59 U/L [place] Bilirubin Ql (U) 0.4 mg/dL 0.2 - 1.3 mg/dL [place] Calcium [Mass/Vol] 9.4 mg/dL 8.4 - 10. 2 mg/dL [place] Chloride [Moles/Vol] 100 mmol/L [place] CO2 [Moles/Vol] 26 mmol/L [place], [place] Creatinine [Mass/Vol] 0.87 mg/dL 0.66 - 1.25 mg/dL [place] GFR/1.73 sq M predicted among non-blacks MDRD (S/P/Bld) [Vol rate/Area] 93 mL/min/{1.73_m2} >60 mL/min/1.73m2 [place] Comment on above: Stage 1 Kidney damage (e.g., protein in the urine) with normal GFR >=90 Stage 2 Kidney damage with mild decrease in GFR 60-89 Stage 3a Moderate decrease in GFR 45-59 Stage 3b Moderate decrease in GFR 30-44 Stage 4 Severe reduction in GFR 15-29 Stage 5 Kidney failure <15 Glucose [Mass/Vol] 125 mg/dL High 65 - 100 mg/dL [place] Interpretation and review of laboratory results Abnormal [place] Potassium [Moles/Vol] 4.5 mmol/L [place] Protein [Mass/Vol] 7.7 g/dL 6.3 - 8.2 g/dL [place] Sodium [Moles/Vol] 139 mmol/L [place] Urea nitrogen [Mass/Vol] 18 mg/dL 9 - 20 mg/dL [place] Lipaseon 07-22-2020 Lipase [Catalytic activity/Vol] 91 U/L [place] SURGICALon 07-22-2020 SURGICAL [place] [facility] [place] [id number] Assoc. Page 1 of [address] [place] [address] PROC: 07/22/2020 [facility] RECV: 07/24/2020 [address] [facility] RPTD: 07/27/2020 [place] [address] LOC: [facility] ACCT: [id number] SEX: M : 1960 AGE: 60 Y PATHOLOGY REPORT ATTN: LAYA RODRIGES REQ: LAYA RODRIGES Clinical Information: PERFORATED SMALL BOWEL FINAL DIAGNOSIS: Ileum, cecum, appendix and right colon, resection: Small bowel ulceration with associated perforation. Extensive hemorrhagic fibrous adhesions. Specimen: ASCENDING COLON, AND SMALL BOWEL Gross Examination: The container is labeled Pancho Mcpherson, ascending colon and small bowel. Received in formalin is a segmental resection of bowel including ileum, cecum, and right colon. The specimen measures approximately 60 cm in length. There is surrounding focally hemorrhagic adipose tissue. There is fibrinous exudate surrounding the portion of the ileum. The specimen is received partially open. A perforation is identified within the small bowel. The specimen is opened longitudinally revealing a focally hemorrhagic mucosal surface with erosions and linear erosions in the small bowel. There are no discrete masses or polyps. The appendix measures 5.5 cm in length x 0.7 cm in greatest diameter. The distal tip is narrow. Sections through the appendix reveal no discrete lesions. Also, in the specimen container is a separate small short segment of bowel measuring 5.5 cm in length. The fragment is opened revealing a adamson mucosal surface. No discrete lesions. [employer] sections are submitted. Cassette #1 - proximal and distal resection line; cassette #2 - appendix; cassette #3 - proximal ileum with linear erosion; cassettes #4 and #5 - perforations; cassette #6 - small bowel; and cassettes #7 and #8 - large bowel. #9 - separate section of bowel. PCF/DKR:[id number] Microscopic Examination: Sections of small bowel mucosa show areas of mucosal erosion. There is evidence of perforation with transmural ulceration and associated hemorrhagic fibrous adhesions. Fibrous adhesions are also identified on the appendiceal surface. Sections of large bowel are unremarkable. There is no evidence of dysplasia or malignancy. [id number] RAMON DAVALOS D.O., F.C.A.P. [facility]/ [facility] Printed on: 07/27/[address] [place] [id number] Original print date: 07/27/2020 Normal [facility] XR SHOULDER RIGHT (MIN 2 VIE WS)on 07-22-2020 [place], [facility] 1:45 PM EST EXAM: XR SHOULDER RIGHT (MIN 2 VIEWS) HISTORY: Possible fall, injury. COMPARISON: None. TECHNIQUE: 4 views right shoulder. FINDINGS: There is no acute displaced fracture or dislocation of the right shoulder. There are age-indeterminate right rib fracture deformities. There is mild right acromioclavicular joint osteoarthritis. Report electronically signed by: Dr. Antwan Pires IMPRESSION: 1. No acute fracture or dislocation of the right shoulder. 2. Mild right acromioclavicular joint osteoarthritis. 3. Age-indeterminate right rib fracture deformities. [facility] [place], [place] 1. No acute fracture or dislocation of the right shoulder. 2. Mild right acromioclavicular joint osteoarthritis. 3. Age-indeterminate right rib fracture deformities. [place], [place] EXAM: XR SHOULDER RI GHT (MIN 2 VIEWS) HISTORY: Possible fall, injury. COMPARISON: None. TECHNIQUE: 4 views right shoulder. FINDINGS: There is no acute displaced fracture or dislocation of the right shoulder. There are age-indeterminate right rib fracture deformities. There is mild right acromioclavicular joint osteoarthritis. Report electronically signed by: Dr. Antwan Pires [place], [place] CT HEAD WO CONTRASTon 2019 1. No acute intracranial abnormality. [place], [place] EXAMINATION: CT HEAD WO CONTRAST HISTORY: fall seizure and fall last week. COMPARISON: Prior CT head dated 06/18/2020 TECHNIQUE: CT examination of the head without IV contrast. Total DLP: 763 mGy.cm. Dose reduction techniques were achieved by using automated exposure control and/or adjustment of mA and/or kV according to patient size and/or use of iterative reconstruction technique. FINDINGS: Study Quality: Adequate There is a slight prominence of the brain sulci and ventricles consistent with volume loss. There are patchy low-density changes in the periventricular deep white matter and centrum semiovale which are nonspecific in appearance but likely to represent chronic microvascular ischemic changes.. There is no acute large cortical infarct, intracranial hemorrhage or large mass on this noncontrast study. There is no intraparenchymal mass, mass effect or midline shift is noted. No abnormal extra-axial fluid collections are seen. The basal cisterns are patent. Soft Tissues: There are multiple areas of soft tissue swelling involving the scalp around both temporoparietal and occipital regions bilaterally similar to the prior study.. Skull: No acute calvarial injury was noted. There is evidence of deformity healed nasal bones fractures.. Sinuses and Mastoids: The visualized portions of the paranasal sinuses and mastoid air cells are clear. Comments: Report electronically signed by: Dr. Salo Curtis [place], [place], Incoming Radiant Results From [facility] - 06/23/2020 3:55 PM EST EXAMINATION: CT HEAD WO CONTRAST HISTORY: fall seizure and fall last week. COMPARISON: Prior CT head dated 06/18/2020 TECHNIQUE: CT examination of the head without IV contrast. Total DLP: 763 mGy.cm. Dose reduction techniques were achieved by using automated exposure control and/or adjustment of mA and/or kV according to patient size and/or use of iterative reconstruction technique. FINDINGS: Study Quality: Adequate There is a slight prominence of the brain sulci and ventricles consistent with volume loss. There are patchy low-density changes in the periventricular deep white matter and centrum semiovale which are nonspecific in appearance but likely to represent chronic microvascular ischemic changes.. There is no acute large cortical infarct, intracranial hemorrhage or large mass on this noncontrast study. There is no intraparenchymal mass, mass effect or midline shift is noted. No abnormal extra-axial fluid collections are seen. The basal cisterns are patent. Soft Tissues: There are multiple areas of soft tissue swelling involving the scalp around both temporoparietal and occipital regions bilaterally similar to the prior study.. Skull: No acute calvarial injury was noted. There is evidence of deformity healed nasal bones fractures.. Sinuses and Mastoids: The visualized portions of the paranasal sinuses and mastoid air cells are clear. Comments: Report electronically signed by: Dr. Salo Curtis IMPRESSION: 1. No acute intracranial abnormality. [place], [place] Otheron 06-19-2020 No acute osseous abnormality. [place] EXAM: XR ELBOW RIGHT (MIN 3 VIEWS) HISTORY: fall COMPARISON: None. TECHNIQUE: 3 views right elbow FINDINGS: There is no acute displaced fracture or dislocation identified. Large distal triceps enthesophyte is noted. No joint effusion. Soft tissues are unremarkable. [place], [facility]coming [facility] 06/19/2020 2:33 PM EST EXAM: XR ELBOW RIGHT (MIN 3 VIEWS) HISTORY: fall COMPARISON: None. TECHNIQUE: 3 views right elbow FINDINGS: There is no acute displaced fracture or dislocation identified. Large distal triceps enthesophyte is noted. No joint effusion. Soft tissues are unremarkable. IMPRESSION: No acute osseous abnormality. [place] CT CERVICAL SPINE WO CONTRAS Ton 06-18-2020 1. No evidence of fracture or acute trauma. 2. Stable appearing degenerative disc disease. [place], [place] EXAMINATION: CT CERVICAL SPINE WO CONTRAST HISTORY: The patient is a 60-year-old male with neck pain after fall. COMPARISON: 05/20/2020. TECHNIQUE: CT Cervical spine without IV contrast. Coronal and sagittal reformations were performed. Dose reduction techniques were achieved by using automated exposure control and/or adjustment of mA and/or kV according to patient size and/or use of iterative reconstruction technique. FINDINGS: The axial images reveal no fractures or cortical discontinuities throughout the cervical spine. No paravertebral soft tissue swelling is seen. The coronal and sagittal reformatted images confirm the absence of fractures or loss of vertebral body height throughout the cervical spine. There is no malalignment. There are wnhk-cg-wsptwhav degenerative changes throughout the cervical spine, unchanged since a study of one month earlier. The soft tissue images demonstrate evidence of a disc herniation at the C6-C7 level, similar to that seen on the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 temporal chains, irregular fast activities at low amplitude, occasionally low amplitude sharp waves in T3, lasted for 3 minutes, no postictal slow or decrement. There was C3 lead artifact. Patient was laying in bed with mask on, eyes closed during this period. EKG lead was off. Summary: During above recoding period, there was one episode, patient was confused but no EEG changes. At 00:31, there was a highly suspicious EEG seizure in left temporal chain but no built up in beginning, or postictal slow or decrement, no clinical signs, but lead artifacts in these region could not be fully excluded. Clinical correlation is recommended. Day 3 05/15/2019 at 9:03AM to 05/16/2019 at 8AM (file from 12:30PM to 6:52PM on 05/15 not available) AEDs: Keppra 2000mg BID-> 1000mg BID; dilantin 350mg QHS; phenobarbital 68.4mg TID; KLN 1mg QHS Interictal: background at 6-7 Hz, at times, rhythmic theta activity at 5-6Hz; no epileptiform discharges. Ictal: None Summary: During above recoding period, there was mild diffuse encephalopathy, no epileptiform discharges or EEG/clinical seizures were noted. Day 4 05/16/2019 at 8AM to 10PM, extended to 05/17/2019 at 8AM AEDs: Keppra 1000mg BID; dilantin 350mg QHS; phenobarbital 68.4mg TID; KLN 1mg QHS Interictal: unchanged, background at 6-7 Hz, at times, rhythmic theta activity at 5-6Hz; no epileptiform discharges, from 00:12AM to 3:23AM, patient was off leads but on camera, no clinical seizures, resumed recording from 3:23AM, no epileptiform discharges. Ictal: there were 20 seconds to 2 minute very fast moderate amplitude activities mostly in left temporal chains, rarely in right temporal chains, no clinical signs, no recurrence after rehooked up since 3:23AM. Summary: During above recoding period, there was mild to moderate diffuse encephalopathy, no epileptiform discharges or EEG/clinical seizures were noted. There were several bursts of very fast activities mostly in left temporal chains, rarely in right side or both sides, there more likely were EMG artifacts. Patient was off leads since 00:12AM to 3:23AM, resumed recording since 3:23AM, no epileptiform discharges or EEG/clinical seizures since then. Please note this is a daily updated preliminary report. Taj Maher MD, MS [facility] [place], Neurology Board Certified Epileptologist [facility]- [place], [place] Clonazepamon 04-26-2019 Clonazepam 5 ng/mL Low 20-70 [facility] Comment on above: Result Comment: (NOT E) INTERPRETIVE INFORMATION: Clonazepam Dose-Related Range: 20-70 ng/mL - Dose (Adult) 1-8 mg/d Toxic: Greater than 80 ng/mL Adverse effects may include drowsiness, headache, fatigue and ataxia. Performed by [facility], [address] [place] [address],[place] [id number] [email or web address], Gbae Stovall MD, Lab. Director Performed By: #### K EPPRA, PHNOC, FTDIL #### [facility] [place] [address] Boiler Blower: Israel Griffiths MD #### ACLON #### [facility] [address] [place], [place] [id number] Boiler Blower: Gabe Stovall MD Dilantin,Free+Totalon 2018 Phenytoin, Free 0.5 ug/mL Low 1.0-2.0 [facility] Comment on above: Performed By: #### NADER QUIÑONEZ, FTDIL #### [facility] [address] [place] [address] Boiler Blower: Israel Griffiths MD #### ACLON #### [facility] [address] [place], [place] [id number] Boiler Blower: Gabe Stovall MD Dilantin,Free+Totalon 2018 Phenytoin [Mass/Vol] 9.2 ug/mL Low 10.0-20.0 [facility] Comment on above: Performed By: #### NADER QUIÑONEZ, FTDIL #### [facility] [address] [place] [address] Boiler Blower: Israel Griffiths MD #### ACLON #### [facility] [address] [place] [address] Boiler Blower: Gabe Stovall MD Date last dose, 04/21 [facility] Comment on above: Performed By: #### NADER QUIÑONEZ, FTDIL #### [facility] [address] [place] [address] Boiler Blower: Israel Griffiths MD #### ACLON #### [facility] [address] [place], [place] [id number] Boiler Blower: Gabe Stovall MD Dose amount, 300 Normal [facility] Comment on above: Performed By: #### NADER QUIÑONEZ, FTDIL #### [facility] [address] [place] [address] Boiler Blower: Israel Griffiths MD #### ACLON #### [facility] [address] [place], [place] [id number] Boiler Blower: Gabe Stovall MD Time last dose, 2000 Normal [facility] Comment on above: Performed By: #### NADER QUIÑONEZ, FTDIL #### [facility] [place] [address] Boiler Blower: Israel Griffiths MD #### ACLON #### [facility] [address] [place] [address] Boiler Blower: Gabe Stovall MD Keppraon 04-22-2019 KEPP <2 Normal [facility] Comment on above: Result Comment: A reference range for Keppra has not been well established. The proposed therapeutic range for seizure control is 6-46 ug/mL. Measurement of Levetiracetam (Keppra) can be elevated due to the presence of both Keppra and Brivaracetam (Briviact) in the patient's system. The medications are structurally similar thus cross reactivity is possible. Pharmacokinetics of Keppra are affected by renal function. The relationship between serum concentrations and toxicity is not known. Performed By: #### NADER QUIÑONEZ, FTDIL #### [facility] [address] [place] [address] Boiler Blower: Israel Griffiths MD #### ACLON #### [facility] [address] [place] [address] Boiler Blower: Gabe Stovall MD Levetiracetam Levelon 2018 Levetiracetam Lvl <2 ug/mL [place], [place] Comment on above: A reference range for Keppra has not been well established. The proposed therapeutic range for seizure control is 6-46 ug/mL. Measurement of Levetiracetam (Keppra) can be elevated due to the presence of both Keppra and Brivaracetam (Briviact) in the patient's system. The medications are structurally similar thus cross reactivity is possible. Pharmacokinetics of Keppra are affected by renal function. The relationship between serum concentrations and toxicity is not known. Phenobarbitalon 04-22-2019 Phenobarbital [Mass/Vol] 37.6 ug/mL Normal 15-40 [facility] Comment on above: Performed By: #### NADER QUIÑONEZ, FTDIL #### [address] [address] Boiler Blower: Israel Griffiths MD #### ACLON #### [facility] [address] [place] [id number] Boiler Blower: Gabe Stovall MD Phenobarbital [Mass/Vol] 04/22 [facility] Comment on above: Performed By: #### NADER QUIÑONEZ, FTDIL #### [address] [address] Boiler Blower: Israel Griffiths MD #### ACLON #### [facility] [address] [place], [place] [id number] Boiler Blower: Gabe Stovall MD Phenobarbital [Mass/Vol] 800 ug/mL Normal [facility] Comment on above: Performed By: #### NADER QUIÑONEZ, FTDIL #### [facility] [address] [place] [address] Boiler Blower: Israel Griffiths MD #### ACLON #### [facility] [address] [place] [address] Boiler Blower: Gabe Stovall MD Phenobarbital [Mass/Vol] 1600 ug/mL Normal [facility] Comment on above: Performed By: #### NADER QUIÑONEZ, FTDIL #### [facility] [address] [place] [id number] Boiler Blower: Israel Griffiths MD #### ACLON #### [facility] [address] [place] [address] Boiler Blower: Gabe Stovall MD Phenobarbital Levelon 2018 Phenobarbital [Mass/Vol] 37.6 ug/mL 15 - 40 ug/mL [place] Phenobarbital Date last dose 04/22 [place] Phenobarbital Dose amount 1600 [facility], [place] Phenobarbital Time last dose 800 [place] Phenytoin Level, Total and F reeon 04-22-2019 Interpretation and review of laboratory results Abnormal [place] Phenytoin Date Last Dose 04/21 [place] Phenytoin Dose Amount 300 [facility], [place] Phenytoin Dose Time 2000 [place] Phenytoin Lvl 9.2 ug/mL Low 10 - 20 ug/mL [facility] Phenytoin, Free 0.5 ug/mL Low 1 - 2 ug/mL [facility] [place] Prost Spec Ag,Freeon 12-2 017 PSA, Free 0.2 ug/L Normal [facility] Comment on above: Performed By: #### C BC, BMP, DILC, LIPR, TSH, FT4 ####[facility] [place] [address] #### PHNOC, VD25, PSAF ####[facility] [place], [place] [id number] PSA, Percent Free 40.0 % Normal [facility] Comment on above: Result Comment: In p atients with total PSA concentrations of 4-10 ng/mL, the probability of finding prostate cancer on needle biopsy in a patient age 50-59 years is:% Free PSA Probability0-10% 49%11-18% 27%19-25% 18%>25 % 9%Other factors may help determine the actual risk of prostate cancer in individual patients.The free PSA percentage is an aid in distinguishing prostate cancer from benign prostatic conditions in men age 50 and older with a total PSA between 3 and 10 ng/mL and negative digital rectal examination findings.Performed at [address] [id number] ([phone] Performed By: #### C BC, BMP, DILC, LIPR, TSH, FT4 ####[address] [place], [place] [id number] #### PHNOC, VD25, PSAF ####[address] [id number] Prostatic Spec. Ag 0.5 ug/L Normal 0.0-4.0 [facility] Comment on above: Result Comment: [facility] [employer] 2000 immunometric chemiluminescent assay is used. Results obtained with different assay methods or instruments cannot be used interchangeably. Performed By: #### C BC, BMP, DILC, LIPR, TSH, FT4 ####[address] [place] [address] #### PHNOC, VD25, PSAF ####[address] [id number] Basic Metabolic Profon 07-21 (cont.) Normal [facility] Comment on above: Result Comment: Aver age GFR for 50-59 years old: 93 mL/min/1.73sq mChronic Kidney Disease: <60 mL/min/1.73sq mKidney failure: <15 mL/min/1.73sq meGFR calculated using average adult body mass. Additional eGFR calculator available at:http://www.eCoast.[employer]/multiple_crcl_2012.htm Performed By: #### C BC, BMP, DILC, LIPR, TSH, FT4 ####[address] [place], [place] [id number] #### PHNOC, VD25, PSAF ####[address] [address] Anion gap 11 mmol/L Normal 9-17 [facility] Comment on above: Performed By: #### C BC, BMP, DILC, LIPR, TSH, FT4 ####[address] [place] [address] #### PHNOC, VD25, PSAF ####[address] [address] BUN/CRE Ratio 24 High 9-20 [facility] Comment on above: Performed By: #### C BC, BMP, DILC, LIPR, TSH, FT4 ####[address] [place] [address] #### PHNOC, VD25, PSAF ####[address] [address] Calcium 9.3 mg/dL Normal 8.6-10.4 [facility] Comment on above: Performed By: #### C BC, BMP, DILC, LIPR, TSH, FT4 ####[address] [place] [address] #### PHNOC, VD25, PSAF ####[address] [address] Chloride 98 mmol/L Normal 98-107 [facility] Comment on above: Performed By: #### C BC, BMP, DILC, LIPR, TSH, FT4 ####[address] [place] [address] #### PHNOC, VD25, PSAF ####[place] [address] [place] [address] CO2 30 mmol/L Normal 20-31 [facility] Comment on above: Performed By: #### C BC, BMP, DILC, LIPR, TSH, FT4 ####[address] [place] [address] #### PHNOC, VD25, PSAF ####[address] [address] Creatinine 0.71 mg/dL Normal 0.70-1.20 [facility] Comment on above: Performed By: #### C BC, BMP, DILC, LIPR, TSH, FT4 ####[address] [place] [address] #### PHNOC, VD25, PSAF ####[address] [address] eGFR (non-black) mL/min/{1.73_m2} Normal >60 [facility] Comment on above: Performed By: #### C BC, BMP, DILC, LIPR, TSH, FT4 ####[address] [place] [address] #### PHNOC, VD25, PSAF ####[address] [address] Glucose mass conc 92 mg/dL Normal 70-99 [facility] Comment on above: Performed By: #### C BC, BMP, DILC, LIPR, TSH, FT4 ####[address] [place] [address] #### PHNOC, VD25, PSAF ####[address] [address] Potassium molar conc 4.9 mmol/L Normal 3.7-5.3 [facility] Comment on above: Performed By: #### C BC, BMP, DILC, LIPR, TSH, FT4 ####[address] [place] [address] #### PHNOC, VD25, PSAF ####[address] [address] Sodium 139 mmol/L Normal 135-144 [facility] Comment on above: Performed By: #### C BC, BMP, DILC, LIPR, TSH, FT4 ####[address] [place], [place] [id number] #### PHNOC, VD25, PSAF ####[address] [phone] Staging: Normal [facility] Comment on above: Result Comment: Stag e 1: Some kidney damage normal GFRStage 2: Mild kidney damage GFR 60-89Stage 3: Moderate kidney damage GFR 30-59Stage 4: Severe kidney damage GFR 15-29Stage 5: Severe kidney damage GFR <15ESRD - chronic treatment by dialysis or transplantPerformed at [address] [place], [place] [id number] ([phone] Performed By: #### C BC, BMP, DILC, LIPR, TSH, FT4 ####[address] [place], [place] [id number] #### PHNOC, VD25, PSAF ####[address] [id number] Urea nitrogen 17 mg/dL Normal 6-20 [facility] Comment on above: Performed By: #### C BC, BMP, DILC, LIPR, TSH, FT4 ####[address] , [place] [id number] #### PHNOC, VD25, PSAF ####[address] [place], [place] [id number] CBCon 07-21-2017 Erythrocyte distribution width Auto Ratio (RBC) 14.0 % Normal 12.1-15.2 [facility] Comment on above: Performed By: #### C BC, BMP, DILC, LIPR, TSH, FT4 ####[address] [place], [place] [id number] #### PHNOC, VD25, PSAF ####[address] [address] Erythrocytes (RBC) 4.87 10*6/uL Normal 4.5-5.9 [facility] Comment on above: Performed By: #### C BC, BMP, DILC, LIPR, TSH, FT4 ####[address] [place] [address] #### PHNOC, VD25, PSAF ####[address] [address] Hematocrit (HCT) 45.8 % Normal 41-53 [facility] Comment on above: Performed By: #### C BC, BMP, DILC, LIPR, TSH, FT4 ####[address] [place] [address] #### PHNOC, VD25, PSAF ####[address] [address] Hemoglobin mass conc (Bld) 14.9 g/dL Normal 13.5-17.0 [facility] Comment on above: Performed By: #### C BC, BMP, DILC, LIPR, TSH, FT4 ####[address] [place] [address] #### PHNOC, VD25, PSAF ####[address] [address] MCH 30.5 pg Normal 26-34 [facility] Comment on above: Performed By: #### C BC, BMP, DILC, LIPR, TSH, FT4 ####[address] [place] [address] #### PHNOC, VD25, PSAF ####[address] [address] MCHC mass conc (RBC) 32.5 g/dL Normal 31-37 [facility] Comment on above: Performed By: #### C BC, BMP, DILC, LIPR, TSH, FT4 ####[address] [place] [address] #### PHNOC, VD25, PSAF ####[address] [address] MCV 93.9 fL Normal 80-100 [facility] Comment on above: Performed By: #### C BC, BMP, DILC, LIPR, TSH, FT4 ####[address] [place] [address] #### PHNOC, VD25, PSAF ####[address] [address] Platelet mean volume (PMV) 9.9 fL Normal 6.0-12.0 [facility] Comment on above: Result Comment: Perf ormed at [address] [place] [address] Performed By: #### C BC, BMP, DILC, LIPR, TSH, FT4 ####[address] [place] [address] #### PHNOC, VD25, PSAF ####[address] [address] Platelets 178 10*3/uL Normal 140-450 [facility] Comment on above: Performed By: #### C BC, BMP, DILC, LIPR, TSH, FT4 ####[address] [place] [address] #### PHNOC, VD25, PSAF ####[address] [address] WBC (Leukocytes) 8.0 10*3/uL Normal 3.5-11.0 [facility] Comment on above: Performed By: #### C BC, BMP, DILC, LIPR, TSH, FT4 ####[address] [place] [address] #### PHNOC, VD25, PSAF ####[address] [place] [address] Dilantinon 07-21-2017 Phenytoin 11.3 ug/mL Normal 10.0-20.0 [facility] Comment on above: Result Comment: Perf ormed at [address] [place] [address] Performed By: #### C BC, BMP, DILC, LIPR, TSH, FT4 ####[address] [place], [place] [address] #### PHNOC, VD25, PSAF ####[address] [address] Lipid Profileon 07-21-2017 Cholesterol 138 mg/dL Normal <200 [facility] Comment on above: Result Comment: Chol esterol Guidelines: <200 Desirable 200-240 Borderline >240 Undesirable Performed By: #### C BC, BMP, DILC, LIPR, TSH, FT4 ####[address] [place] [address] #### PHNOC, VD25, PSAF ####[address] [place] [address] Cholesterol to HDL Ratio 2.4 {ratio} Normal <5 [facility] Comment on above: Performed By: #### C BC, BMP, DILC, LIPR, TSH, FT4 ####[address] [place], [place] 114[address]83 #### PHNOC, VD25, PSAF ####[address] [place] [address] HDL Cholesterol 57 mg/dL Normal >40 [facility] Comment on above: Result Comment: HDL Guidelines: <40 Undesirable 40-59 Borderline >59 Desirable Performed By: #### C BC, BMP, DILC, LIPR, TSH, FT4 ####[address] [place] [address] #### PHNOC, VD25, PSAF ####[address] [address] LDL Cholesterol 64 mg/dL Normal 0-130 [facility] Comment on above: Result Comment: LDL Guidelines: <100 Desirable 100-129 Near to/above Desirable 130-159 Borderline >159 UndesirableDirect (measured) LDL and calculated LDL are not interchangeable tests. Performed By: #### C BC, BMP, DILC, LIPR, TSH, FT4 ####[address] [place] [address] #### PHNOC, VD25, PSAF ####[address] [address] Triglyceride 84 mg/dL Normal <150 [facility] Comment on above: Result Comment: Trig lyceride Guidelines: <150 Desirable 150- 199 Borderline 200-499 High >499 Very high Based on AHA Guidelines for fasting triglyceride, May 2012.Performed at [address] [place] [address] Performed By: #### C BC, BMP, DILC, LIPR, TSH, FT4 ####[address] [place] [address] #### PHNOC, VD25, PSAF ####[address] [address] Cholesterol in VLDL mass conc NOT REPORTED Normal 1-30 [facility] Comment on above: Performed By: #### C BC, BMP, DILC, LIPR, TSH, FT4 ####[address] [place] [address] #### PHNOC, VD25, PSAF ####[address] [address] Phenobarbitalon 07-21-2017 Phenobarbital 29.8 ug/mL Normal 15-40 [facility] Comment on above: Result Comment: Perf ormed at [address] [address] Performed By: #### C BC, BMP, DILC, LIPR, TSH, FT4 ####[address] [place] [address] #### PHNOC, VD25, PSAF ####[address] [address] Date last dose, NOT REPORTED Normal [facility] Comment on above: Performed By: #### C BC, BMP, DILC, LIPR, TSH, FT4 ####[address] [place] [address] #### PHNOC, VD25, PSAF ####[address] [address] Dose amount, NOT REPORTED Normal [facility] Comment on above: Performed By: #### C BC, BMP, DILC, LIPR, TSH, FT4 ####[address] [place] [address] #### PHNOC, VD25, PSAF ####[address] [address] Time last dose, NOT REPORTED Normal [facility] Comment on above: Performed By: #### C BC, BMP, DILC, LIPR, TSH, FT4 ####[address] [place] [address] #### PHNOC, VD25, PSAF ####[address] [address] Thyroid Stim. Horm.on 2016 Thyroid stimulating hormone (TSH) 1.20 m[IU]/L Normal 0.30-5.00 [facility] Comment on above: Result Comment: Perf ormed at [address] [place] 7999983 [phone] Performed By: #### C BC, BMP, DILC, LIPR, TSH, FT4 ####[address] 5863483 #### PHNOC, VD25, PSAF ####[address] [address] Thyroxine, Freeon 07-21-2017 Thyroxine, Free 1.05 ng/dL Normal 0.93-1.70 [facility] Comment on above: Result Comment: Perf ormed at [address] [place] [id number] [phone]. Performed By: #### C BC, BMP, DILC, LIPR, TSH, FT4 ####[address] 2634683 #### PHNOC, VD25, PSAF ####[address] [address] Vitamin D 25 OHon 07-21-2017 Vitamin D 25 OH 24.9 ng/mL Low 30.0-100.0 [facility] Comment on above: Result Comment: Refe rence Range:Vitamin D status Range Deficiency <20 ng/mL Mild Deficiency 20-30 ng/mL Sufficiency 30-100 ng/mL Toxicity >100 ng/mLPerformed at [address] [address] Performed By: #### C BC, BMP, DILC, LIPR, TSH, FT4 ####[address] 557[address]83 #### PHNOC, VD25, PSAF ####[address] [address] Prost Spec Ag,Freeon 017 PSA, Free 0.2 ug/L Normal [facility] Comment on above: Performed By: #### C BC, BMP, DILC, LIPR, TSH, FT4 ####[address] [place] [address] #### PHNOC ####[address] [phone] [place] [address] #### VD25, PSAF ####[address] [address] PSA, Percent Free 40.0 % Normal [facility] Comment on above: Result Comment: [facility] of 4-10 ng/mL, the probability of finding prostate cancer on needle biopsy in a patient age 50-59 years is:% Free PSA Probability0-10% 49%11-18% 27%19-25% 18%>25 % 9%Other factors may help determine the actual risk of prostate cancer in individual patients.The free PSA percentage is an aid in distinguishing prostate cancer from benign prostatic conditions in men age 50 and older with a total PSA between 3 and 10 ng/mL and negative digital rectal examination findings.Performed at [address] [address] Performed By: #### C BC, BMP, DILC, LIPR, TSH, FT4 ####[address] [place] [address] #### PHNOC ####[address] [phone] [place] [address] #### VD25, PSAF ####[address] [address] Prostatic Spec. Ag 0.5 ug/L Normal 0.0-4.0 [facility] Comment on above: Result Comment: Siem [employer] GRIDulite 2000 immunometric chemiluminescent assay is used. Results obtained with different assay methods or instruments cannot be used interchangeably. Performed By: #### C BC, BMP, DILC, LIPR, TSH, FT4 ####[address] [place] [address] #### PHNOC ####[address] [place], [place] [phone] [place] [address] #### VD25, PSAF ####[address] [place] [address] Basic Metabolic Profon 07-18 (cont.) Normal [facility] Comment on above: Result Comment: Aver age GFR for 50-59 years old: 93 mL/min/1.73sq mChronic Kidney Disease: <60 mL/min/1.73sq mKidney failure: <15 mL/min/1.73sq meGFR calculated using average adult body mass. Additional eGFR calculator available at:http://www.[employer]/multiple_crcl_2012.htm Performed By: #### C BC, BMP, DILC, LIPR, TSH, FT4 ####[address] [place] [address] #### PHNOC ####[address] [place], [place] [phone] [place] [address] #### VD25, PSAF ####[address] [place] [address] Anion gap 10 mmol/L Normal 9-17 [facility] Comment on above: Performed By: #### C BC, BMP, DILC, LIPR, TSH, FT4 ####[address] [place] [address] #### PHNOC ####[address] [phone] [place] [address] #### VD25, PSAF ####[address] [address] BUN/CRE Ratio 19 Normal 9-20 [facility] Comment on above: Performed By: #### C BC, BMP, DILC, LIPR, TSH, FT4 ####[address] [place] [address] #### PHNOC ####[address] [phone] [place] [address] #### VD25, PSAF ####[address] [address] Calcium 9.2 mg/dL Normal 8.6-10.4 [facility] Comment on above: Performed By: #### C BC, BMP, DILC, LIPR, TSH, FT4 ####[address] [place] [address] #### PHNOC ####[address] [phone] [place] [address] #### VD25, PSAF ####[address] [place] [address] Chloride 100 mmol/L Normal 98-107 [facility] Comment on above: Performed By: #### C BC, BMP, DILC, LIPR, TSH, FT4 ####[address] [place] [address] #### PHNOC ####[address] [phone] [place] [address] #### VD25, PSAF ####[address] [address] CO2 32 mmol/L High 20-31 [facility] Comment on above: Performed By: #### C BC, BMP, DILC, LIPR, TSH, FT4 ####[address] [place] [address] #### PHNOC ####[address] [phone] [address] , [facility] #### VD25, PSAF ####[address] [address] Creatinine 0.73 mg/dL Normal 0.70-1.20 [facility] Comment on above: Performed By: #### C BC, BMP, DILC, LIPR, TSH, FT4 ####[address] [place] [address] #### PHNOC ####[address] [phone] [place] [address] #### VD25, PSAF ####[address] [address] eGFR (non-black) mL/min/{1.73_m2} Normal >60 [facility] Comment on above: Performed By: #### C BC, BMP, DILC, LIPR, TSH, FT4 ####[address] [place] [address] #### PHNOC ####[address] [phone] [place] [address] #### VD25, PSAF ####[address] [address] Glucose mass conc 86 mg/dL Normal 70-99 [facility] Comment on above: Performed By: #### C BC, BMP, DILC, LIPR, TSH, FT4 ####[address] [place] [address] #### PHNOC ####[address] [phone] [place] [address] #### VD25, PSAF ####[address] [address] Potassium molar conc 5.1 mmol/L Normal 3.7-5.3 [facility] Comment on above: Performed By: #### C BC, BMP, DILC, LIPR, TSH, FT4 ####[address] [place] [address] #### PHNOC ####[address] [phone] [place] [address] #### VD25, PSAF ####[address] [place] [address] Sodium 142 mmol/L Normal 135-144 [facility] Comment on above: Performed By: #### C BC, BMP, DILC, LIPR, TSH, FT4 ####[address] [place] [address] #### PHNOC ####[address] [phone] [place] [address] #### VD25, PSAF ####[address] [address] Staging: Normal [facility] Comment on above: Result Comment: Stag e 1: Some kidney damage normal GFRStage 2: Mild kidney damage GFR 60-89Stage 3: Moderate kidney damage GFR 30-59Stage 4: Severe kidney damage GFR 15-29Stage 5: Severe kidney damage GFR <15ESRD - chronic treatment by dialysis or transplantPerformed at [address] [place] [address] Performed By: #### C BC, BMP, DILC, LIPR, TSH, FT4 ####[address] [place] [address] #### PHNOC ####[address] [phone] [place] [address] #### VD25, PSAF ####[address] [address] Urea nitrogen 14 mg/dL Normal 6-20 [facility] Comment on above: Performed By: #### C BC, BMP, DILC, LIPR, TSH, FT4 ####[address] [place] [address] #### PHNOC ####[address] [phone] [place] [address] #### VD25, PSAF ####[address] [place] [address] CBCon 07-18-2017 Erythrocyte distribution width Auto Ratio (RBC) 14.0 % Normal 12.1-15.2 [facility] Comment on above: Performed By: #### C BC, BMP, DILC, LIPR, TSH, FT4 ####[address] [place] [address] #### PHNOC ####[address] [phone] [place] [address] #### VD25, PSAF ####[address] [address] Erythrocytes (RBC) 4.97 10*6/uL Normal 4.5-5.9 [facility] Comment on above: Performed By: #### C BC, BMP, DILC, LIPR, TSH, FT4 ####[address] [place] [address] #### PHNOC ####[address] [phone] [place] [address] #### VD25, PSAF ####[address] [address] Hematocrit (HCT) 46.9 % Normal 41-53 [facility] Comment on above: Performed By: #### C BC, BMP, DILC, LIPR, TSH, FT4 ####[address] [place] [address] #### PHNOC ####[address] [phone] [place] [address] #### VD25, PSAF ####[address] [address] Hemoglobin mass conc (Bld) 15.5 g/dL Normal 13.5-17.0 [facility] Comment on above: Performed By: #### C BC, BMP, DILC, LIPR, TSH, FT4 ####[address] [place] [address] #### PHNOC ####[address] [phone] [place] [address] #### VD25, PSAF ####[address] [address] MCH 31.1 pg Normal 26-34 [facility] Comment on above: Performed By: #### C BC, BMP, DILC, LIPR, TSH, FT4 ####[address] [place] [address] #### PHNOC ####[address] [phone] [place] [address] #### VD25, PSAF ####[address] [address] MCHC mass conc (RBC) 33.0 g/dL Normal 31-37 [facility] Comment on above: Performed By: #### C BC, BMP, DILC, LIPR, TSH, FT4 ####[address] [place] [address] #### PHNOC ####[address] [phone] [place] [address] #### VD25, PSAF ####[address] [address] MCV 94.4 fL Normal 80-100 [facility] Comment on above: Performed By: #### C BC, BMP, DILC, LIPR, TSH, FT4 ####[address] [place] [address] #### PHNOC ####[address] [phone] [place] [address] #### VD25, PSAF ####[address] [address] Platelet mean volume (PMV) 9.6 fL Normal 6.0-12.0 [facility] Comment on above: Result Comment: Perf ormed at [address] [place] [address] Performed By: #### C BC, BMP, DILC, LIPR, TSH, FT4 ####[address] [place] [address] #### PHNOC ####[address] [phone] [place] [address] #### VD25, PSAF ####[address] [address] Platelets 189 10*3/uL Normal 140-450 [facility] Comment on above: Performed By: #### C BC, BMP, DILC, LIPR, TSH, FT4 ####[address] [place] [address] #### PHNOC ####[address] [phone] [place] [address] #### VD25, PSAF ####[address] [address] WBC (Leukocytes) 7.4 10*3/uL Normal 3.5-11.0 [facility] Comment on above: Performed By: #### C BC, BMP, DILC, LIPR, TSH, FT4 ####[address] [place] [address] #### PHNOC ####[address] [phone] [place] [address] #### VD25, PSAF ####[address] [address] Dilantinon 07-18-2017 Phenytoin 10.7 ug/mL Normal 10.0-20.0 [facility] Comment on above: Performed By: #### C BC, BMP, DILC, LIPR, TSH, FT4 ####[address] [place] [address] #### PHNOC ####[address] [phone] [place] [address] #### VD25, PSAF ####[address] [address] Date last dose, hide Normal [facility] Comment on above: Performed By: #### C BC, BMP, DILC, LIPR, TSH, FT4 ####[address] [place] [address] #### PHNOC ####[address] [place] [phone] [place] [address] #### VD25, PSAF ####[address] [address] Lipid Profileon 07-18-2017 Cholesterol 133 mg/dL Normal <200 [facility] Comment on above: Result Comment: Chol esterol Guidelines: <200 Desirable 200-240 Borderline >240 Undesirable Performed By: #### C BC, BMP, DILC, LIPR, TSH, FT4 ####[address] [place] [address] #### PHNOC ####[address] [phone] [place] [address] #### VD25, PSAF ####[address] [address] Cholesterol to HDL Ratio 2.4 {ratio} Normal <5 [facility] Comment on above: Performed By: #### C BC, BMP, DILC, LIPR, TSH, FT4 ####[address] [place] [address] #### PHNOC ####[address] [phone] [place] [address] #### VD25, PSAF ####[address] [address] HDL Cholesterol 56 mg/dL Normal >40 [facility] Comment on above: Result Comment: HDL Guidelines: <40 Undesirable 40-59 Borderline >59 Desirable Performed By: #### C BC, BMP, DILC, LIPR, TSH, FT4 ####[address] [place] [address] #### PHNOC ####[address] [phone] [place] [address] #### VD25, PSAF ####[address] [address] LDL Cholesterol 62 mg/dL Normal 0-130 [facility] Comment on above: Result Comment: LDL Guidelines: <100 Desirable 100-129 Near to/above Desirable 130-159 Borderline >159 UndesirableDirect (measured) LDL and calculated LDL are not interchangeable tests. Performed By: #### C BC, BMP, DILC, LIPR, TSH, FT4 ####[address] [place] [address] #### PHNOC ####[address] [phone] [place] [address] #### VD25, PSAF ####[address] [address] Triglyceride 75 mg/dL Normal <150 [facility] Comment on above: Result Comment: Trig lyceride Guidelines: <150 Desirable 150- 199 Borderline 200-499 High >499 Very high Based on AHA Guidelines for fasting triglyceride, May 2012.Performed at [address] [place] [address] Performed By: #### C BC, BMP, DILC, LIPR, TSH, FT4 ####[address] [place] [address] #### PHNOC ####[address] [place] [phone] [place] [address] #### VD25, PSAF ####[address] [address] Cholesterol in VLDL mass conc NOT REPORTED Normal 1-30 [facility] Comment on above: Performed By: #### C BC, BMP, DILC, LIPR, TSH, FT4 ####[address] [place] [address] #### PHNOC ####[address] [phone] [place] [address] #### VD25, PSAF ####[address] [address] Phenobarbitalon 07-18-2017 Phenobarbital 30.8 ug/mL Normal 15-40 [facility] Comment on above: Result Comment: Perf ormed at [address] [place] [address] Performed By: #### C BC, BMP, DILC, LIPR, TSH, FT4 ####[address] [place] [address] #### PHNOC ####[address] [phone] [place] [address] #### VD25, PSAF ####[address] [address] Dose amount, hide Normal [facility] Comment on above: Performed By: #### C BC, BMP, DILC, LIPR, TSH, FT4 ####[address] [place] [address] #### PHNOC ####[address] [place] [phone] [place] [address] #### VD25, PSAF ####[address] [address] Time last dose, hide Normal [facility] Comment on above: Result Comment: Perf ormed at [address] [place] [address] Performed By: #### C BC, BMP, DILC, LIPR, TSH, FT4 ####[address] [place] [address] #### PHNOC ####[address] [phone] [place] [address] #### VD25, PSAF ####[address] [address] Thyroid Stim. Horm.on 2016 Thyroid stimulating hormone (TSH) 1.63 m[IU]/L Normal 0.30-5.00 [facility] Comment on above: Result Comment: Perf ormed at [address] [place] [address] Performed By: #### C BC, BMP, DILC, LIPR, TSH, FT4 ####[address] [place] [address] #### PHNOC ####[address] [phone] [place] [address] #### VD25, PSAF ####[address] [address] Thyroxine, Freeon 07-18-2017 Thyroxine, Free 1.07 ng/dL Normal 0.93-1.70 [facility] Comment on above: Result Comment: Perf ormed at [address] [place], [place] 9219283 [phone] Performed By: #### C BC, BMP, DILC, LIPR, TSH, FT4 ####[address] 5164483 #### PHNOC ####[address] [phone] [address] 4300883 #### VD25, PSAF ####[address] [address] Vitamin D 25 OHon 07-18-2017 Vitamin D 25 OH 26.6 ng/mL Low 30.0-100.0 [facility] Comment on above: Result Comment: Refe rence Range:Vitamin D status Range Deficiency <20 ng/mL Mild Deficiency 20-30 ng/mL Sufficiency 30-100 ng/mL Toxicity >100 ng/mLPerformed at [address] [address] Performed By: #### C BC, BMP, DILC, LIPR, TSH, FT4 ####[address] [place] [address] #### PHNOC ####[address] [phone] [address] 8579483 #### VD25, PSAF ####[address] [address] MRI BRAIN WO CONTRASTon 11-1 MRI BRAIN WO CONTRAST MRI BRAIN WITHOUT CONTRASTTECHNIQUE: Multiplanar multisequence magnetic resonance imaging of the brain performed without contrast. Patient is mentally challenged and a poor historian. MRI clearance was made through prior radiographs and CTs.INDICATION: Cervicalgia, lumbar region somatic dysfunction, idiopathic scoliosis of lumbar spine, degenerative disc disease, history of seizures, headachesFINDINGS: Patient motion artifact mildly degrades and sequences. No evidence of acute infarction, hemorrhage or mass lesion. Scattered foci of hemosiderin deposition mostly in the subcortical white matter of both cerebral hemispheres. Suspect this is the sequela of prior trauma or scattered hypertensive microhemorrhages. Less likely this can be seen with amyloid angiopathy. Patchy and confluent areas of T2/FLAIR signal intensity in the subcortical and periventricular white matter of both cerebral hemispheres and brainstem. Although nonspecific, this is typically seen as a sequela of chronic ischemic small vessel disease in a patient of this age. Normal cerebral and cerebellar volume. No morphologic brain abnormality. No hydrocephalus. Both hippocampi are symmetric and normal in signal intensity. Pituitary gland is present and normal. Paranasal sinuses and mastoid air cells are clear. Mild diffuse hyperostosis of the calvarium.1. No acute intracranial process2. Moderate underlying age related white matter changes3. Scattered areas of hemosiderin deposition is suspected to be the result of prior trauma or possibly hypertensive microhemorrhages. Amyloid angiopathy is felt to be less likely given distribution.Final report electronically signed by Jakub Whitt on 06/26/2017 2:23 PMInterpreted by:MAGY Castilloigned by:Jakub Whitt MD06/26/17Final result Normal [facility] XR KNEE RIGHT STANDARDon XR KNEE RIGHT STANDARD REPORT: 3 views right kneeINDICATION: Right knee pain, unspecified chronicityFINDINGS: No acute fracture or dislocation is seen. Mild tricompartmental joint space loss. No significant osteophyte formation. No joint effusion or soft tissue swelling.Final report electronically signed by Jakub Whitt on 06/14/2017 5:31 PMIMPRESSION: MILD JOINT SPACE LOSSInterpreted by:MAGY Castilloigned by:Jkaub Whitt MD06/14/17Final result Normal [facility] Dilantinon 06-01-2017 Phenytoin 11.5 ug/mL Normal 10.0-20.0 [facility] Comment on above: Performed By: #### D [facility] ####[address] [place] [address] Date last dose, hide Normal [facility] Comment on above: Performed By: #### D [facility] ####[address] [place] [address] Dose amount, hide Normal [facility] Comment on above: Performed By: #### D ILC ####[address] [place] [address] Time last dose, hide Normal [facility] Comment on above: Result Comment: Perf ormed at [address] [place] [address] Performed By: #### D ILC ####[address] [place] [address] Phenobarbitalon 04-25-2017 Phenobarbital 30.0 ug/mL Normal 15-40 [facility] Comment on above: Result Comment: Perf ormed at [address] [address] Performed By: #### P HNOC ####[address] [address] Date last dose, NOT REPORTED Normal [facility] Comment on above: Performed By: #### P HNOC ####[address] [address] Dose amount, NOT REPORTED Normal [facility] in Hospital Comment on above: Performed By: #### P HNOC ####[address] [place] [address] Time last dose, NOT REPORTED Normal [facility] Comment on above: Performed By: #### P HNOC ####[address] [address] Dilantinon 04-13-2017 Phenytoin 17.8 ug/mL Normal 10.0-20.0 [facility] Comment on above: Result Comment: Perf ormed at [address] [place] [address] Performed By: #### D ILC ####[address] [place] [address] Date last dose, NOT REPORTED Normal [facility] Comment on above: Performed By: #### D ILC ####[address] [place] [address] Dose amount, NOT REPORTED Normal [facility] Comment on above: Performed By: #### D ILC ####[address] [place] [address] Time last dose, NOT REPORTED [facility] Comment on above: Performed By: #### D ILC ####[address] [place] [address] Dilantinon 04-12-2017 Phenytoin 21.7 ug/mL High 10.0-20.0 [facility] Comment on above: Result Comment: Perf ormed at [address] [place] [address] Performed By: #### D ILC ####[address] [place] [address] Date last dose, NOT REPORTED Normal [facility] Comment on above: Performed By: #### D ILC ####[address] [place] [address] Dose amount, NOT REPORTED Normal [facility] Comment on above: Performed By: #### D ILC ####[address] [place] [address] Time last dose, NOT REPORTED [facility] Comment on above: Performed By: #### D ILC ####[address] [place] [address] Dilantinon 04-11-2017 Phenytoin 25.4 ug/mL High 10.0-20.0 [facility] Comment on above: Result Comment: Perf ormed at [address] [place] [address] Performed By: #### D ILC ####[address] [place] [address] Date last dose, NOT REPORTED Normal [facility] Comment on above: Performed By: #### D ILC ####[address] [place] [address] Dose amount, NOT REPORTED Normal [facility] Comment on above: Performed By: #### D ILC ####[address] [place] [address] Time last dose, NOT REPORTED Normal [facility] Comment on above: Performed By: #### D ILC ####[address] [place] [address] Dilantinon 04-07-2017 Phenytoin 27.7 ug/mL High 10.0-20.0 [facility] Comment on above: Result Comment: Perf ormed at [address] [place] [address] Performed By: #### D ILC ####[address] [place] [address] Date last dose, NOT REPORTED Normal [facility] Comment on above: Performed By: #### D ILC ####[address] [place] [address] Dose amount, NOT REPORTED Normal [facility] Comment on above: Performed By: #### D ILC ####[address] [place] [address] Time last dose, NOT REPORTED Normal [facility] Comment on above: Performed By: #### D ILC ####[address] [place] [address] Dilantin,Free+Totalon 2016 Phenytoin, Free 2.4 ug/mL High 1.0-2.0 [facility] Comment on above: Result Comment: Perf ormed at [facility] [address] [place], [place] [id number] [phone] Performed By: #### F TDIL ####[facility] [place] [phone] [place] [address] CT CERVICAL SPINE WO CONTRAS Ton 04-06-2017 CT CERVICAL SPINE WO CONTRAST FINAL REPORTEXAM: CT CERVICAL SPINE WO CONTRASTHISTORY: fall. head injury TECHNIQUE: Axial thin CT sections with sagittal and coronal reconstructions.PRIORS: None.FINDINGS: There are degenerative changes.No fractures or malalignments are demonstrated. No prevertebral soft tissue swelling.IMPRESSION: Impression: No acute abnormality.Electronica lly Signed By: LAYA WEATHERS on 04/06/2017 20:04Interpreted by:MAGY Ruckerigned by:Laya Weathers MD04/06/17Final result Normal [facility] CT FACIAL BONES WO CONTRASTo n 04-06-2017 CT FACIAL BONES WO CONTRAST FINAL REPORTEXAM: CT FACIAL BONES WO CONTRASTHISTORY: fall, nasal injury TECHNIQUE: Axial thin sections with sagittal and coronal reconstructions.PRIORS: None.FINDINGS: Nasal bone fractures are again seen, deviated to the right. These are new since the prior exam August 2016 but appear chronic and have likely occurred in the interim. Correlation with history is recommended. There is mild mucosal thickening in each maxillary sinus. No intraorbital abnormality. There is forehead scalp soft tissue swelling.No definite acute fracture is seen. IMPRESSION: Impression: No definite acute bony abnormality. Interpreted by:MAGY Ruckerigned by:Laya Weathers MD04/06/17Final result Normal [facility] CT HEAD WO CONTRASTon 2016 BMI (Body Mass Index) FINAL REPORTEXAM: CT HEAD WO CONTRASTHISTORY: fall. head injury TECHNIQUE: Noncontrast CT was performed. Axial images were submitted.PRIORS: 09/08/2016FINDINGS: There is soft tissue stranding of the scalp subcutaneous fat again seen.There are comminuted rightward deviated nasal bone fractures. These are new since the prior exam.Scattered foci of poorly defined decreased attenuation do not exert significant mass effect on surrounding structures and likely represent sequela of prior insult.There is no definite evidence of acute mass, mass effect, midline shift, or hemorrhage. No other fracture is seen.IMPRESSION: Impression: No definite acute CT abnormalities of the brain or adjacent intracranial structures. Nasal bone fractures. Interpreted by:MAGY Ruckerigned by:Laya Weathers MD04/06/17Final result Normal [facility] Dilantin,Free+Totalon 2016 Phenytoin 28.2 ug/mL High 10.0-20.0 [facility] Comment on above: Result Comment: Perf ormed at [address] [place] [address] Performed By: #### F TDIL ####[facility] [address] [place] [phone] [place] [address] Date last dose, NOT REPORTED Normal [facility] Comment on above: Performed By: #### F TDIL ####[facility] [address] [place] [phone] [place] [address] Dose amount, NOT REPORTED Normal [facility] in [facility] Comment on above: Performed By: #### F TDIL ####[facility] [address] [place] [phone] [place] [address] Time last dose, NOT REPORTED Normal [facility] Comment on above: Performed By: #### F TDIL ####[facility] [address] [place] [phone] [place] [address] Dilantinon 03-16-2017 Phenytoin 18.9 ug/mL Normal 10.0-20.0 [facility] Comment on above: Result Comment: Perf ormed at [address] [place] [address] Performed By: #### D ILC ####[address] [place] [address] Date last dose, NOT REPORTED Normal [facility] Comment on above: Performed By: #### D ILC ####[address] [place] [address] Dose amount, NOT REPORTED Normal [facility] Comment on above: Performed By: #### D ILC ####[address] [place] [address] Time last dose, NOT REPORTED Normal [facility] Comment on above: Performed By: #### D ILC ####[address] [place] [address] Vital Signs Date Time Vital Sign Value Performing Clinician Facility 06-24-2025 15:17-0500 Body height 172.7 cm Marleni Gold MD Work Phone: [facility] 06-24-2025 15:17-0500 Body mass index (BMI) [Ratio] 31.47 kg/m2 Marleni Gold MD Work Phone: [facility] 06-24-2025 15:17-0500 Body weight 93.89 kg Marleni Gold MD Work Phone: [facility] 06-24-2025 15:17-0500 Diastolic blood pressure 83 mm[Hg] Marleni Gold MD Work Phone: [facility] 06-24-2025 15:17-0500 Heart rate 77 /min Marleni Gold MD Work Phone: [facility] 06-24-2025 15:17-0500 SaO2% (BldA) [Mass fraction] 89 % Marleni Gold MD Work Phone: [facility] 06-24-2025 15:17-0500 Systolic blood pressure 134 mm[Hg] Marleni Gold MD Work Phone: [facility] 06-12-2025 10:37-0400 Body height 172.7 cm Mahamed Daron DO Work Phone: [facility] 06-12-2025 10:37-0400 Body mass index (BMI) [Ratio] 31.47 kg/m2 Mahamed Draon DO Work Phone: [facility] 06-12-2025 10:37-0400 Body temperature 98.6 [degF] Mahamed Daron DO Work Phone: [facility] 06-12-2025 10:37-0400 Body weight 93.89 kg Mahamed Daron DO Work Phone: [facility] 06-12-2025 10:37-0400 Diastolic blood pressure 73 mm[Hg] Mahamed Daron DO Work Phone: [facility] 06-12-2025 10:37-0400 Heart rate 70 /min Mahamed Daron DO Work Phone: [facility] 06-12-2025 10:37-0400 Respiratory rate 16 /min Mahamed Daron DO Work Phone: [facility] 06-12-2025 10:37-0400 SaO2% (BldA) [Mass fraction] 90 % Mahamed Daron DO Work Phone: [facility] 06-12-2025 10:37-0400 Systolic blood pressure 113 mm[Hg] Mahamed Daron DO Work Phone: [facility] 05-08-2025 11:19-0400 Body height 172.7 cm Carrie García MD Work Phone: [facility] 05-08-2025 11:19-0400 Body mass index (BMI) [Ratio] 29.5 kg/m2 Carrie García MD Work Phone: [facility] 05-08-2025 11:19-0400 Body temperature 99.1 [degF] Carrie García MD Work Phone: [facility] 05-08-2025 11:19-0400 Body weight 88 kg Carrie García MD Work Phone: [facility] 05-08-2025 11:19-0400 Diastolic blood pressure 78 mm[Hg] Carrie García MD Work Phone: [phone] [place] [address] 05-08-2025 11:19-0400 Heart rate 78 /min Carrie García MD Work Phone: [facility] 05-08-2025 11:19-0400 Respiratory rate 14 /min Carrie García MD Work Phone: [facility] 05-08-2025 11:19-0400 SaO2% (BldA) [Mass fraction] 99 % Carrie García MD Work Phone: [facility] 05-08-2025 11:19-0400 Systolic blood pressure 125 mm[Hg] Carrie García MD Work Phone: [facility] 05-07-2025 10:43-0400 Body temperature 98.4 [degF] Danny Torres Jr., DPM Work Phone: [facility] 05-07-2025 10:43-0400 Diastolic blood pressure 84 mm[Hg] Danny Torres Jr. DPLaureano Work Phone: [facility] 05-07-2025 10:43-0400 Heart rate 89 /min Danny Melissa Jr., DPM Work Phone: [facility] 05-07-2025 10:43-0400 Systolic blood pressure 142 mm[Hg] Danny Melissa Jr., DPM Work Phone: [facility] 04-21-2025 15:04-0400 Diastolic blood pressure 70 mm[Hg] Nidia Crain MD MPH Work Phone: [facility] 04-21-2025 15:04-0400 Heart rate 70 /min Nidia Crain MD MPH Work Phone: [facility] 04-21-2025 15:04-0400 Systolic blood pressure 120 mm[Hg] Nidia Crain MD MPH Work Phone: [facility] 01-31-2025 10:20-0400 Diastolic blood pressure 93 mm[Hg] Danny Torres Jr., DPM Work Phone: [facility] 01-31-2025 10:20-0400 Heart rate 80 /min Danny Melissa Jr., DPM Work Phone: [facility] 01-31-2025 10:20-0400 Systolic blood pressure 166 mm[Hg] Danny Melissa Jr., DPM Work Phone: [facility] 12-17-2024 10:21-0400 Body mass index (BMI) [Ratio] 30.87 kg/m2 Mahamed Leeran DO Work Phone: [facility] 12-17-2024 10:21-0400 Body weight 92.08 kg Mahamed Daron DO Work Phone: [facility] 12-17-2024 10:21-0400 Diastolic blood pressure 73 mm[Hg] Mahamed Leeran DO Work Phone: [facility] 12-17-2024 10:21-0400 Heart rate 63 /min Mahamed Neri DO Work Phone: [facility] 12-17-2024 10:21-0400 Respiratory rate 16 /min Mahamed Neri DO Work Phone: [facility] 12-17-2024 10:21-0400 SaO2% (BldA) [Mass fraction] 92 % Mahamed Neri DO Work Phone: [facility] 12-17-2024 10:21-0400 Systolic blood pressure 124 mm[Hg] Mahamed Neri DO Work Phone: [facility] 12-13-2024 12:27-0400 Heart rate 75 /min Mya Jim MD Work Phone: [facility] 12-13-2024 08:23-0400 Diastolic blood pressure 75 mm[Hg] Mya Jim MD Work Phone: [facility] 12-13-2024 08:23-0400 Respiratory rate 25 /min Mya Jim MD Work Phone: [facility] 12-13-2024 08:23-0400 SaO2% (BldA) [Mass fraction] 100 % Mya Jim MD Work Phone: [facility] 12-13-2024 08:23-0400 Systolic blood pressure 160 mm[Hg] Mya Jim MD Work Phone: [facility] 12-13-2024 07:34-0400 Body temperature 98.1 [degF] Mya Jim MD Work Phone: [facility] 12-11-2024 09:24-0400 Body height 179.8 cm Mya Jim MD Work Phone: [facility] 12-11-2024 09:24-0400 Body mass index (BMI) [Ratio] 27.24 kg/m2 Mya Jim MD Work Phone: [facility] 12-11-2024 09:24-0400 Body weight 88.09 kg Mya Jim MD Work Phone: [facility] 11-13-2024 10:26-0400 Body height 172.7 cm Jakub Oglesby MD Work Phone: [facility] 11-13-2024 10:26-0400 Body mass index (BMI) [Ratio] 32.69 kg/m2 Jakub Oglesby MD Work Phone: [facility] 11-13-2024 10:26-0400 Body weight 97.52 kg Jakub Oglesby MD Work Phone: [facility] 11-13-2024 10:26-0400 Diastolic blood pressure 70 mm[Hg] Jakub Oglesby MD Work Phone: [facility] 11-13-2024 10:26-0400 Heart rate 73 /min Jakub Oglesby MD Work Phone: [facility] 11-13-2024 10:26-0400 SaO2% (BldA) [Mass fraction] 91 % Jakub Oglesby MD Work Phone: [facility] 11-13-2024 10:26-0400 Systolic blood pressure 109 mm[Hg] Jakub Oglesby MD Work Phone: [facility] 11-12-2024 10:01-0400 Body height 172.7 cm Kaushal Avitia ASSEMBLY STOCK SUPERVISOR-OPERATIONS AND MAINTENANCE SPECIALIST Work Phone: [facility] 11-12-2024 10:01-0400 Body mass index (BMI) [Ratio] 31.75 kg/m2 Kaushal Cabreraley ASSEMBLY STOCK SUPERVISOR-OPERATIONS AND MAINTENANCE SPECIALIST Work Phone: [facility] 11-12-2024 10:01-0400 Body temperature 97.5 [degF] Kaushal Avitia ASSEMBLY STOCK SUPERVISOR-OPERATIONS AND MAINTENANCE SPECIALIST Work Phone: [facility] 11-12-2024 10:01-0400 Body weight 94.71 kg Kaushal Avitia ASSEMBLY STOCK SUPERVISOR-OPERATIONS AND MAINTENANCE SPECIALIST Work Phone: [facility] 11-12-2024 10:01-0400 Diastolic blood pressure 68 mm[Hg] Kaushal Avitia ASSEMBLY STOCK SUPERVISOR-OPERATIONS AND MAINTENANCE SPECIALIST Work Phone: [facility] 11-12-2024 10:01-0400 Heart rate 85 /min Kaushal Avitia ASSEMBLY STOCK SUPERVISOR-OPERATIONS AND MAINTENANCE SPECIALIST Work Phone: [facility] 11-12-2024 10:01-0400 Respiratory rate 16 /min Kaushal Avitia ASSEMBLY STOCK SUPERVISOR-OPERATIONS AND MAINTENANCE SPECIALIST Work Phone: [facility] 11-12-2024 10:01-0400 SaO2% (BldA) [Mass fraction] 92 % Kaushal Avitia ASSEMBL[employer] STOCK SUPERVISOR-OPERATIONS AND MAINTENANCE SPECIALIST Work Phone: [facility] 11-12-2024 10:01-0400 Systolic blood pressure 128 mm[Hg] Kaushal Avitia ASSEMBLY STOCK SUPERVISOR-OPERATIONS AND MAINTENANCE SPECIALIST Work Phone: [facility] 09-11-2024 09:03-0500 Body height 172.7 cm Mahamed Neri DO Work Phone: [facility] 09-11-2024 09:03-0500 Body mass index (BMI) [Ratio] 25.85 kg/m2 Mahamedsulma MohrDaron DO Work Phone: [facility] 09-11-2024 09:03-0500 Body temperature 98.1 [degF] Mahamed Leeran DO Work Phone: [facility] 09-11-2024 09:03-0500 Body weight 77.11 kg Mahamed MohrDaron DO Work Phone: [facility] 09-11-2024 09:03-0500 Diastolic blood pressure 68 mm[Hg] Mahamed Leeran DO Work Phone: [facility] 09-11-2024 09:03-0500 Heart rate 72 /min Mahamed Neri DO Work Phone: [facility] 09-11-2024 09:03-0500 Respiratory rate 17 /min Mahamed Neri DO Work Phone: [facility] 09-11-2024 09:03-0500 SaO2% (BldA) [Mass fraction] 93 % Mahamed Neri DO Work Phone: [facility] 09-11-2024 09:03-0500 Systolic blood pressure 106 mm[Hg] Mahamed Neri DO Work Phone: [facility] 08-26-2024 11:47-0500 Body height 172.7 cm Celina Esquivel PA-C Work Phone: [facility] 08-26-2024 11:47-0500 Body mass index (BMI) [Ratio] 28.21 kg/m2 Celina Esquivel PA-C Work Phone: [facility] 08-26-2024 11:47-0500 Body temperature 98.49 [degF] Celina Esquivel PA-C Work Phone: [facility] 08-26-2024 11:47-0500 Body weight 84.14 kg Celina Esquivel PA-C Work Phone: [facility] 08-26-2024 11:47-0500 Diastolic blood pressure 72 mm[Hg] Celina Esquivel PA-C Work Phone: [facility] 08-26-2024 11:47-0500 Heart rate 70 /min Celina Esquivel PA-C Work Phone: [facility] 08-26-2024 11:47-0500 SaO2% (BldA) [Mass fraction] 95 % Celina sEquivel PA-C Work Phone: [facility] 08-26-2024 11:47-0500 Systolic blood pressure 120 mm[Hg] Celina Esquivel PA-C Work Phone: [facility] 08-02-2024 10:13-0500 Body temperature 98.8 [degF] Danny Torres Jr., DPM Work Phone: [facility] 08-02-2024 10:13-0500 Diastolic blood pressure 77 mm[Hg] Danny Torres Jr., DPM Work Phone: [facility] 08-02-2024 10:13-0500 Heart rate 68 /min Danny Torres Jr., DPM Work Phone: [facility] 08-02-2024 10:13-0500 Systolic blood pressure 118 mm[Hg] Danny Torres Jr., DPM Work Phone: [facility] 06-27-2024 10:38-0500 Body height 172.7 cm Crystal Adore ASSEMBLY STOCK SUPERVISOR-OPERATIONS AND MAINTENANCE SPECIALIST Work Phone: [facility] 06-27-2024 10:38-0500 Body mass index (BMI) [Ratio] 28.21 kg/m2 Crystal Adore ASSEMBLY STOCK SUPERVISOR-OPERATIONS AND MAINTENANCE SPECIALIST Work Phone: [facility] 06-27-2024 10:38-0500 Body temperature 97.9 [degF] Crystal Adore ASSEMBLY STOCK SUPERVISOR-OPERATIONS AND MAINTENANCE SPECIALIST Work Phone: [facility] 06-27-2024 10:38-0500 Body weight 84.14 kg Crystal Adore ASSEMBLY STOCK SUPERVISOR-OPERATIONS AND MAINTENANCE SPECIALIST Work Phone: [facility] 06-27-2024 10:38-0500 Diastolic blood pressure 79 mm[Hg] Crystal Adore ASSEMBLY STOCK SUPERVISOR-OPERATIONS AND MAINTENANCE SPECIALIST Work Phone: [facility] 06-27-2024 10:38-0500 Heart rate 74 /min Crystal Adore ASSEMBLY STOCK SUPERVISOR-OPERATIONS AND MAINTENANCE SPECIALIST Work Phone: [facility] 06-27-2024 10:38-0500 Systolic blood pressure 144 mm[Hg] Crystal Adore ASSEMBLY STOCK SUPERVISOR-OPERATIONS AND MAINTENANCE SPECIALIST Work Phone: [facility] 06-10-2024 13:19-0400 Body height 175.3 cm Anthony Munguia DO Work Phone: [facility] 06-10-2024 13:19-0400 Body mass index (BMI) [Ratio] 27.32 kg/m2 Anthony Oberhauser DO Work Phone: [facility] 06-10-2024 [id number] Body weight 83.92 kg Anthony Oberhauser DO Work Phone: [facility] 06-10-2024 13:19-0400 Diastolic blood pressure 70 mm[Hg] Anthony Oberhauser DO Work Phone: [facility] 06-10-2024 13:19-0400 Heart rate 110 /min Anthony Oberhauser DO Work Phone: [facility] 06-10-2024 13:19-0400 Systolic blood pressure 122 mm[Hg] Anthony Oberhauser DO Work Phone: [facility] 05-30-2024 12:58-0400 Body temperature 99.1 [degF] Crystal Adore ASSEMBLY STOCK SUPERVISOR-OPERATIONS AND MAINTENANCE SPECIALIST Work Phone: [facility] 05-30-2024 12:58-0400 Diastolic blood pressure 76 mm[Hg] Crystal Adore ASSEMBLY STOCK SUPERVISOR-OPERATIONS AND MAINTENANCE SPECIALIST Work Phone: [facility] 05-30-2024 12:58-0400 Heart rate 73 /min Crystal Adore ASSEMBLY STOCK SUPERVISOR-OPERATIONS AND MAINTENANCE SPECIALIST Work Phone: [facility] 05-30-2024 12:58-0400 Systolic blood pressure 156 mm[Hg] Crystal Adore ASSEMBLY STOCK SUPERVISOR-OPERATIONS AND MAINTENANCE SPECIALIST Work Phone: [facility] 05-23-2024 13:47-0400 Diastolic blood pressure 74 mm[Hg] Mirna Denis ASSEMBLY STOCK SUPERVISOR-OPERATIONS AND MAINTENANCE SPECIALIST Work Phone: [facility] 05-23-2024 13:47-0400 Heart rate 84 /min Mirna Denis ASSEMBLY STOCK SUPERVISOR-OPERATIONS AND MAINTENANCE SPECIALIST Work Phone: [facility] 05-23-2024 13:47-0400 Systolic blood pressure 115 mm[Hg] Mirna Denis APRN-OPERATIONS AND MAINTENANCE SPECIALIST Work Phone: [facility] 05-15-2024 02:54-0400 Diastolic blood pressure 59 mm[Hg] Ginette Torres DO Work Phone: [facility] 05-15-2024 02:54-0400 Heart rate 91 /min Ginette Torres DO Work Phone: [facility] 05-15-2024 02:54-0400 Respiratory rate 16 /min Ginette Torres DO Work Phone: [facility] 05-15-2024 02:54-0400 SaO2% (BldA) [Mass fraction] 97 % Ginette Torres DO Work Phone: [facility] 05-15-2024 02:54-0400 Systolic blood pressure 98 mm[Hg] Ginette Piperersen DO Work Phone: [facility] 05-14-2024 22:42-0400 Body height 175.3 cm Ginette Torres DO Work Phone: [facility] 05-14-2024 22:42-0400 Body mass index (BMI) [Ratio] 27.32 kg/m2 Ginette Torres DO Work Phone: [facility] 05-14-2024 22:42-0400 Body temperature 98.29 [degF] Ginette Torres DO Work Phone: [facility] 05-14-2024 22:42-0400 Body weight 83.92 kg Ginette Piperersen DO Work Phone: [facility] 05-01-2024 10:06-0400 Body temperature 97.9 [degF] Danny Torres Jr. DPM Work Phone: [facility] 05-01-2024 10:06-0400 Diastolic blood pressure 81 mm[Hg] Danny Torres Jr. DPM Work Phone: [facility] 05-01-2024 10:06-0400 Heart rate 69 /min Danny Torres Jr., DPM Work Phone: [facility] 05-01-2024 10:06-0400 SaO2% (BldA) [Mass fraction] 93 % Danny Torres Jr., DPM Work Phone: [facility] 05-01-2024 10:06-0400 Systolic blood pressure 133 mm[Hg] Danny Torres Jr., DPM Work Phone: [facility] 04-03-2024 13:33-0400 Diastolic blood pressure 84 mm[Hg] Shashank Padilla MD Work Phone: [facility] 04-03-2024 13:33-0400 Heart rate 71 /min Shashank Padilla MD Work Phone: [facility] 04-03-2024 13:33-0400 Systolic blood pressure 137 mm[Hg] Shashank Padilla MD Work Phone: [facility] 02-22-2024 11:11-0400 Body height 172.7 cm Kaushal Avitia ASSEMBLY STOCK SUPERVISOR-OPERATIONS AND MAINTENANCE SPECIALIST Work Phone: [facility] Comment on above: VERBAL 02-22-2024 11:11-0400 Body mass index (BMI) [Ratio] 27.83 kg/m2 Kaushal Avitia ASSEMBLY STOCK SUPERVISOR-OPERATIONS AND MAINTENANCE SPECIALIST Work Phone: [facility] 02-22-2024 11:11-0400 Body temperature 99 [degF] Kaushal Avitia ASSEMBLY STOCK SUPERVISOR-OPERATIONS AND MAINTENANCE SPECIALIST Work Phone: [facility] 02-22-2024 11:11-0400 Body weight 83.01 kg Kaushal Avitia ASSEMBLY STOCK SUPERVISOR-OPERATIONS AND MAINTENANCE SPECIALIST Work Phone: [facility] Comment on above: [facility] 02-22-2024 11:11-0400 Diastolic blood pressure 73 mm[Hg] Kaushal Avitia ASSEMBLY STOCK SUPERVISOR-OPERATIONS AND MAINTENANCE SPECIALIST Work Phone: [facility] 02-22-2024 11:11-0400 Heart rate 70 /min Kaushal Avitia ASSEMBLY STOCK SUPERVISOR-OPERATIONS AND MAINTENANCE SPECIALIST Work Phone: [facility] 02-22-2024 11:11-0400 Systolic blood pressure 127 mm[Hg] Kaushal Avitia ASSEMBLY STOCK SUPERVISOR-OPERATIONS AND MAINTENANCE SPECIALIST Work Phone: [facility] 01-31-2024 13:57-0400 Body temperature 98.8 [degF] Danny Torres Jr., DPM Work Phone: [facility] 01-31-2024 13:57-0400 Diastolic blood pressure 81 mm[Hg] Danny Torres Jr., DPM Work Phone: [facility] 01-31-2024 13:57-0400 Heart rate 68 /min Danny Torres Jr., DPM Work Phone: [facility] 01-31-2024 13:57-0400 Systolic blood pressure 126 mm[Hg] Danny Torres Jr., DPM Work Phone: [facility] 01-24-2024 10:51-0400 Body mass index (BMI) [Ratio] 27.32 kg/m2 Shashank Padilla MD Work Phone: [facility] 01-24-2024 10:51-0400 Body weight 83.92 kg Shashank Padilla MD Work Phone: [facility] 01-24-2024 10:51-0400 Diastolic blood pressure 80 mm[Hg] Shashank Padilla MD Work Phone: [facility] 01-24-2024 10:51-0400 Systolic blood pressure 129 mm[Hg] Shashank Padilla MD Work Phone: [facility] 01-09-2024 09:41-0400 Body height 175.3 cm Anthony Munguia DO Work Phone: [facility] 01-09-2024 09:41-0400 Body mass index (BMI) [Ratio] 27.32 kg/m2 Anthony Munguia DO Work Phone: [facility] 01-09-2024 09:41-0400 Body weight 83.92 kg Anthony Oberhauser DO Work Phone: [facility] 01-09-2024 09:41-0400 Diastolic blood pressure 80 mm[Hg] Anthony Oberhauser DO Work Phone: [facility] 01-09-2024 09:41-0400 Heart rate 92 /min Anthony Oberhauser DO Work Phone: [facility] 01-09-2024 09:41-0400 Systolic blood pressure 129 mm[Hg] Anthony Oberhauser DO Work Phone: [facility] 11-22-2023 12:52-0400 Body height 172.7 cm Crystal Adore ASSEMBLY STOCK SUPERVISOR-OPERATIONS AND MAINTENANCE SPECIALIST Work Phone: [facility] 11-22-2023 12:52-0400 Body mass index (BMI) [Ratio] 27.83 kg/m2 Crystal Adore ASSEMBLY STOCK SUPERVISOR-OPERATIONS AND MAINTENANCE SPECIALIST Work Phone: [facility] 11-22-2023 12:52-0400 Body temperature 98.6 [degF] Crystal Adore ASSEMBLY STOCK SUPERVISOR-OPERATIONS AND MAINTENANCE SPECIALIST Work Phone: [facility] 11-22-2023 12:52-0400 Body weight 83.01 kg Crystal Adore ASSEMBLY STOCK SUPERVISOR-OPERATIONS AND MAINTENANCE SPECIALIST Work Phone: [facility] 11-22-2023 12:52-0400 Diastolic blood pressure 69 mm[Hg] Crystal Adore ASSEMBLY STOCK SUPERVISOR-OPERATIONS AND MAINTENANCE SPECIALIST Work Phone: [facility] 11-22-2023 12:52-0400 Heart rate 71 /min Crystal Adore ASSEMBLY STOCK SUPERVISOR-OPERATIONS AND MAINTENANCE SPECIALIST Work Phone: [facility] 11-22-2023 12:52-0400 Respiratory rate 16 /min Crystal Adore ASSEMBLY STOCK SUPERVISOR-OPERATIONS AND MAINTENANCE SPECIALIST Work Phone: [facility] 11-22-2023 12:52-0400 SaO2% (BldA) [Mass fraction] 93 % Kaushal Avitia ASSEMBLY STOCK SUPERVISOR-OPERATIONS AND MAINTENANCE SPECIALIST Work Phone: [facility] 11-22-2023 12:52-0400 Systolic blood pressure 121 mm[Hg] Kaushal Avitia ASSEMBLY STOCK SUPERVISOR-OPERATIONS AND MAINTENANCE SPECIALIST Work Phone: [facility] 10-18-2023 13:11-0500 Body height 172.7 cm [facility] 10-18-2023 13:11-0500 Body mass index (BMI) [Ratio] 27.9 kg/m2 [facility] 10-18-2023 13:11-0500 Body temperature 98.91 [degF] [facility] 10-18-2023 13:11-0500 Body weight 83.23 kg [facility] 10-18-2023 13:11-0500 Diastolic blood pressure 72 mm[Hg] [facility] 10-18-2023 13:11-0500 Heart rate 60 /min [facility] 10-18-2023 13:11-0500 Systolic blood pressure 135 mm[Hg] [facility] 09-20-2023 13:02-0500 Body height 172.7 cm [facility] 09-20-2023 13:02-0500 Body mass index (BMI) [Ratio] 27.83 kg/m2 [facility] 09-20-2023 13:02-0500 Body temperature 99.81 [degF] [facility] Comment on above: knit cap on 09-20-2023 13:02-0500 Body weight 83.01 kg [facility] Comment on above: from appt on 09-20-2023 13:02-0500 Diastolic blood pressure 74 mm[Hg] [facility] 09-20-2023 13:02-0500 Heart rate 70 /min [facility] 09-20-2023 13:02-0500 Systolic blood pressure 129 mm[Hg] [facility] 08-30-2023 17:25-0500 Body temperature 97.7 [degF] Ulises Li MD Work Phone: [facility] 08-30-2023 17:25-0500 Diastolic blood pressure 68 mm[Hg] Ulises Li MD Work Phone: [facility] 08-30-2023 17:25-0500 Heart rate 73 /min Ulises Li MD Work Phone: [facility] 08-30-2023 17:25-0500 Respiratory rate 16 /min Ulises Li MD Work Phone: [facility] 08-30-2023 17:25-0500 SaO2% (BldA) [Mass fraction] 94 % Ulises Li MD Work Phone: [facility] 08-30-2023 17:25-0500 Systolic blood pressure 133 mm[Hg] Ulises Li MD Work Phone: [facility] 08-30-2023 09:52-0500 Body height 172.7 cm Ulises Li MD Work Phone: [facility] 08-30-2023 09:52-0500 Body mass index (BMI) [Ratio] 27.9 kg/m2 Ulises Li MD Work Phone: [facility] 08-30-2023 09:52-0500 Body weight 83.23 kg Ulises Li MD Work Phone: [facility] 06-21-2023 13:18-0500 Body height 175.3 cm Anthony Munguia DO Work Phone: [facility] 06-21-2023 13:18-0500 Body mass index (BMI) [Ratio] 27.32 kg/m2 Anthony Oberhausdelonte DO Work Phone: [facility] 06-21-2023 13:18-0500 Body weight 83.92 kg Anthony Obergabe DO Work Phone: [facility] 06-21-2023 13:18-0500 Diastolic blood pressure 76 mm[Hg] Anthony Obergabe DO Work Phone: [facility] 06-21-2023 13:18-0500 Heart rate 85 /min Anthony Obkehinde DO Work Phone: 0(045)495-[address] [place] [address] 06-21-2023 13:18-0500 Systolic blood pressure 125 mm[Hg] Anthony Obermichaeler DO Work Phone: 9(138)143-931329 [place] [address] 06-08-2023 10:19-0400 Body height 175.3 cm Anthony Ortiz MD Work Phone: [facility] 06-08-2023 10:19-0400 Body mass index (BMI) [Ratio] 27.32 kg/m2 Anthony Ortiz MD Work Phone: 5(631)[phone] [place] [address] 06-08-2023 10:19-0400 Body weight 83.92 kg Anthony Ortiz MD Work Phone: 5(266)[phone] [place] [address] 06-08-2023 10:19-0400 Diastolic blood pressure 76 mm[Hg] Anthony Ortiz MD Work Phone: 7(486)680-776707 [place] [address] 06-08-2023 10:19-0400 Heart rate 62 /min Anthony Ortiz MD Work Phone: [facility] 06-08-2023 10:19-0400 Systolic blood pressure 128 mm[Hg] Anthony Ortiz MD Work Phone: [facility] 2023 09:56-0400 Body mass index (BMI) [Ratio] 26.68 kg/m2 Ulises Li MD Work Phone: [facility] 2023 09:56-0400 Body weight 79.61 kg Ulises Li MD Work Phone: [facility] Comment on above: VERBAL 2023 09:56-0400 Diastolic blood pressure 72 mm[Hg] Ulises Li MD Work Phone: [facility] 2023 09:56-0400 Heart rate 64 /min Ulises Li MD Work Phone: [facility] 2023 09:56-0400 Systolic blood pressure 120 mm[Hg] Ulises Li MD Work Phone: [facility] 04-05-2023 10:05-0400 Body height 172.7 cm Carrie García MD Work Phone: [facility] Comment on above: verbal 04-05-2023 10:05-0400 Body temperature 98.01 [degF] Carrie García MD Work Phone: [facility] 04-05-2023 10:05-0400 Diastolic blood pressure 74 mm[Hg] aCrrie García MD Work Phone: [facility] 04-05-2023 10:05-0400 Heart rate 62 /min Carrie García MD Work Phone: [facility] 04-05-2023 10:05-0400 SaO2% (BldA) [Mass fraction] 95 % Carrie García MD Work Phone: [facility] 04-05-2023 10:05-0400 Systolic blood pressure 127 mm[Hg] Carrie García MD Work Phone: [facility] 02-08-2023 10:02-0400 Body mass index (BMI) [Ratio] 26.58 kg/m2 Shashank Padilla II, MD Work Phone: [id number] Work Phone: 02-08-2023 10:02-0400 Body surface area Derived from formula 1.98 m2 Shashank Padilla II, MD Work Phone: SU[facility]Jqcmpuq-Qkkpck d Work Phone: 02-08-2023 10:02-0400 Body weight 81.65 kg Shashank Padilla II, MD Work Phone: [facility]Msljxyd-Yjcdoz d Work Phone: 10-06-2022 10:14-0500 Body height 175.26 cm Lucy Thomae DO Work Phone: [facility] Work Phone: 10-06-2022 10:14-0500 Body mass index (BMI) [Ratio] 26.58 kg/m2 Lucy Thomae DO Work Phone: [facility] Work Phone: 10-06-2022 10:14-0500 Body surface area Derived from formula 1.98 m2 Lucy Thomae DO Work Phone: [facility] Work Phone: 10-06-2022 10:14-0500 Body weight 81.65 kg Lucy Thomae DO Work Phone: [facility] Work Phone: 10-06-2022 10:14-0500 Diastolic blood pressure 70 mm[Hg] Lucy Thomae DO Work Phone: [facility] Work Phone: 10-06-2022 10:14-0500 Systolic blood pressure 110 mm[Hg] Lucy Thomae DO Work Phone: [facility] Work Phone: 09-06-2022 09:34-0500 Body height 172.7 cm Celina Esquivel PA-C Work Phone: [facility] 09-06-2022 09:34-0500 Body mass index (BMI) [Ratio] 27.37 kg/m2 Celinagale Esquivel PA-C Work Phone: [facility] 09-06-2022 09:34-0500 Body temperature 99.81 [degF] Celinarubens Esquivel PA-C Work Phone: [facility] 09-06-2022 09:34-0500 Body weight 81.65 kg Celina Esquivel PA-C Work Phone: [facility] Comment on above: reported from 08/23/2022 09-06-2022 09:34-0500 Diastolic blood pressure 72 mm[Hg] Celina Esquivel PA-C Work Phone: [facility] 09-06-2022 09:34-0500 Heart rate 77 /min Celina Esquivel PA-C Work Phone: [facility] 09-06-2022 09:34-0500 SaO2% (BldA) [Mass fraction] 92 % Celina Esquivel PA-C Work Phone: [facility] 09-06-2022 09:34-0500 Systolic blood pressure 114 mm[Hg] Celina Esquivel PA-C Work Phone: [facility] 07-22-2022 12:18-0500 Diastolic blood pressure 77 mm[Hg] Text Entry Free [facility] 07-22-2022 12:18-0500 Heart rate 65 /min Text Entry [facility] 07-22-2022 12:18-0500 Respiratory rate 18 /min Text Entry [facility] 07-22-2022 12:18-0500 SaO2% (BldA) [Mass fraction] 98 % Text Entry Free [facility] 07-22-2022 12:18-0500 Systolic blood pressure 138 mm[Hg] Text Entry Free [facility] 07-22-2022 09:49-0500 Body temperature 96.98 [degF] Text Entry Free [facility] 07-22-2022 09:49-0500 Body weight 79.5 kg Text Entry Free [facility] 07-15-2022 10:36-0500 Body mass index (BMI) [Ratio] Medical Reason Not Done Shashank Padilla II, MD Work Phone: [facility]Ihfwdxg[facility]Btbmct d Work Phone: 07-15-2022 10:36-0500 Diastolic blood pressure 70 mm[Hg] Shashank Padilla II, MD Work Phone: GQ[facility]Kwionwb-Vllewn d Work Phone: 07-15-2022 10:36-0500 Heart rate 107 /min Shashank Padilla II, MD Work Phone: KJ-Avxivha-Kpwnpg d Work Phone: 07-15-2022 10:36-0500 Systolic blood pressure 122 mm[Hg] Shashank Padilla II, MD Work Phone: SM-Hsloscm-Qvoiiu d Work Phone: 06-09-2022 10:05-0400 Body height 172.7 cm Nikki Hare MD Work Phone: [facility] 06-09-2022 10:05-0400 Body mass index (BMI) [Ratio] 25.39 kg/m2 Nikki Hare MD Work Phone: [facility] 06-09-2022 10:05-0400 Body weight 75.75 kg Nikki Hare MD Work Phone: [facility] 06-09-2022 10:05-0400 Diastolic blood pressure 80 mm[Hg] Nikki Hare MD Work Phone: [facility] 06-09-2022 10:05-0400 Heart rate 84 /min Nikki Hare MD Work Phone: [facility] 06-09-2022 10:05-0400 Systolic blood pressure 138 mm[Hg] Nikki Hare MD Work Phone: [facility] 06-01-2022 21:00-0400 Diastolic blood pressure 74 mm[Hg] Text Entry Free [facility] 06-01-2022 21:00-0400 Heart rate 72 /min Text Entry Free [facility] 06-01-2022 21:00-0400 Respiratory rate 16 /min Text Entry Free [facility] 06-01-2022 21:00-0400 SaO2% (BldA) [Mass fraction] 95 % Text Entry Free [facility] 06-01-2022 21:00-0400 Systolic blood pressure 135 mm[Hg] Text Entry Free [facility] 06-01-2022 18:26-0400 Body temperature 98.06 [degF] Text Entry [facility] 06-01-2022 18:26-0400 Body weight 73 kg Text Entry Free [facility] 03-09-2022 09:22-0400 Body height 172.7 cm Nikki Hare MD Work Phone: [facility] 03-09-2022 09:22-0400 Body mass index (BMI) [Ratio] 25.85 kg/m2 Nikki Hare MD Work Phone: [facility] 03-09-2022 09:22-0400 Body weight 77.11 kg Nikki Hare MD Work Phone: [facility] Comment on above: verbal. non-weight bearing 03-09-2022 09:22-0400 Diastolic blood pressure 68 mm[Hg] Nikki Hare MD Work Phone: [facility] 03-09-2022 09:22-0400 Heart rate 72 /min Nikki Hare MD Work Phone: [facility] 03-09-2022 09:22-0400 Systolic blood pressure 104 mm[Hg] Nikki Hare MD Work Phone: [facility] 03-08-2022 14:58-0400 Body height 172.7 cm Carmelina Youngblood MD Work Phone: [facility] 03-08-2022 14:58-0400 Body mass index (BMI) [Ratio] 25.85 kg/m2 Carmelina Youngblood MD Work Phone: [facility] 03-08-2022 14:58-0400 Body temperature 96.8 [degF] Carmelina Youngblood MD Work Phone: [facility] 03-08-2022 14:58-0400 Body weight 77.11 kg Carmelina Youngblood MD Work Phone: [facility] 03-08-2022 14:58-0400 Heart rate 96 /min Carmelina Youngblood MD Work Phone: [facility] 03-08-2022 14:58-0400 SaO2% (BldA) [Mass fraction] 94 % Carmelina Youngblood MD Work Phone: [facility] 02-08-2022 02:30-0400 Diastolic blood pressure 75 mm[Hg] Text Entry Free [facility] 02-08-2022 02:30-0400 Heart rate 87 /min Text Entry Free [facility] 02-08-2022 02:30-0400 Respiratory rate 16 /min Text Entry Free [facility] 02-08-2022 02:30-0400 SaO2% (BldA) [Mass fraction] 98 % Text Entry Free [facility] 02-08-2022 02:30-0400 Systolic blood pressure 98 mm[Hg] Text Entry Free [facility] 12-01-2021 22:42-0400 Diastolic blood pressure 76 mm[Hg] Text Entry Free [facility] 12-01-2021 22:42-0400 Heart rate 92 /min Text Entry Free [facility] 12-01-2021 22:42-0400 Respiratory rate 16 /min Text Entry Free [facility] 12-01-2021 22:42-0400 SaO2% (BldA) [Mass fraction] 98 % Text Entry Free [facility] 12-01-2021 22:42-0400 Systolic blood pressure 143 mm[Hg] Text Entry Free [facility] 12-01-2021 19:10-0400 Body temperature 98.06 [degF] Text Entry Free [facility] 12-01-2021 19:10-0400 Body weight 56 kg Text Entry Free [facility] 11-17-2021 13:16-0400 Body height 172.7 cm Nikki Hare MD Work Phone: [facility] 11-17-2021 13:16-0400 Body mass index (BMI) [Ratio] 28.59 kg/m2 Nikki Hare MD Work Phone: [facility] 11-17-2021 13:16-0400 Body weight 85.28 kg Nikki Hare MD Work Phone: [facility] 11-17-2021 13:16-0400 Diastolic blood pressure 85 mm[Hg] Nikki Hare MD Work Phone: [facility] 11-17-2021 13:16-0400 Heart rate 88 /min Nikki Hare MD Work Phone: [facility] 11-17-2021 13:16-0400 Systolic blood pressure 138 mm[Hg] Nikki Hare MD Work Phone: [facility] 09-03-2020 13:37-0500 Body Temperature 96.6 [degF] [facility] [place] 08-20-2020 14:22-0500 Body Temperature 96.8 [degF] [facility] [place] 08-13-2020 11:08-0500 Body Temperature 97.2 [degF] Duy Lynn [facility] [place] 08-13-2020 11:08-0500 BP Diastolic 75 mm[Hg] Duy Lynn [facility] [place] , [place] 08-13-2020 11:08-0500 BP Systolic 142 mm[Hg] Duy Joy [facility] , [place] 08-13-2020 11:08-0500 Pulse (Heart Rate) 78 /min Duy Joy [facility], [place] 08-13-2020 11:08-0500 Pulse Oximetry 97 % Duy Joy [facility] [place] , [place] 08-13-2020 11:08-0500 Respiratory Rate 16 /min Duy Joy [facility] [place] [place] 08-13-2020 03:15-0500 BMI (Body Mass Index) 28.45 kg/m2 Duy Joy [facility], [place] 08-13-2020 03:15-0500 Body weight 84.88 kg Duy Joy [facility] , [place] 07-22-2020 21:05-0500 Height 172.7 cm Duy Joy [facility] , [place] 06-23-2020 15:22-0500 BMI (Body Mass Index) 30.32 kg/m2 [facility] [place] 06-23-2020 15:22-0500 Body Temperature 98.71 [degF] [facility] [place] 06-23-2020 15:22-0500 Body weight 87.82 kg [facility] [place] 06-23-2020 15:22-0500 BP Diastolic 105 mm[Hg] [facility] [place] [facility] [place] 06-23-2020 15:22-0500 BP Systolic 146 mm[Hg] [facility] [place] 06-23-2020 15:22-0500 Pulse (Heart Rate) 81 /min [facility] [place] 06-23-2020 15:22-0500 Pulse Oximetry 93 % [facility] [place] 06-23-2020 15:22-0500 Respiratory Rate 28 /min Laya [facility] [place] 06-19-2020 13:38-0500 BMI (Body Mass Index) 31.32 kg/m2 Mal Alegria [facility], [place] 06-19-2020 13:38-0500 Body Temperature 97.5 [degF] Malsubha Alegria [facility] [place] 06-19-2020 13:38-0500 Body weight 90.72 kg Mal Alegria [facility] , [place] 06-19-2020 13:38-0500 BP Diastolic 83 mm[Hg] Mal [facility] , [place] 06-19-2020 13:38-0500 BP Systolic 118 mm[Hg] Mal Alegria [facility] , [place] 06-19-2020 13:38-0500 Height 170.2 cm Mal [facility] , [place] 06-19-2020 13:38-0500 Pulse (Heart Rate) 78 /min Mal [facility], [place] 06-19-2020 13:38-0500 Pulse Oximetry 96 % Mal [facility] , [place] 06-19-2020 13:38-0500 Respiratory Rate 22 /min Mal [facility], [place] 06-18-2020 20:50-0500 BP [facility] 85 mm[facility]Hg[facility] [place] 06-18-2020 20:50-0500 BP Systolic 140 mm[Hg] Mal [facility] , [place] 06-18-2020 20:50-0500 Pulse Oximetry 91 % Mal [facility] , [place] 06-18-2020 19:12-0500 BMI (Body Mass Index) 30.41 kg/m2 Mal [facility], [place] 06-18-2020 19:12-0500 Body Temperature 99 [degF] Mal [facility], [place] 06-18-2020 19:12-0500 Body weight 90.72 kg Mal [facility] , [place] 06-18-2020 19:12-0500 [facility] [place] 06-18-2020 19:12-0500 Pulse (Heart Rate) 98 /min [facility], [place] 06-18-2020 19:12-0500 Respiratory Rate 22 /min [facility], [place] 03-24-2020 16:00-0400 BP Diastolic 94 mm[Hg] Kvng Haley [facility] 03-24-2020 16:00-0400 BP Systolic 126 mm[Hg] Kvng Haley [facility] 03-24-2020 16:00-0400 Pulse (Heart Rate) 68 /min Kvng Haley [facility] 03-24-2020 16:00-0400 Pulse Oximetry 97 % Kvng Haley [facility] 03-24-2020 16:00-0400 Respiratory Rate 20 /min Kvng Haley [facility] 03-24-2020 13:56-0400 BMI (Body Mass Index) 29.18 kg/m2 Kvng Haley [facility] 03-24-2020 13:56-0400 Body Temperature 98.01 [degF] Kvng Haley [facility] 03-24-2020 13:56-0400 Body weight 77.11 kg Kvng Haley [facility] 03-24-2020 13:56-0400 Height 162.6 cm Kvng Haley [facility] 05-17-2019 16:08-0400 Body Temperature 97.81 [degF] [place] 05-17-2019 16:08-0400 BP Diastolic 92 mm[Hg] [facility] [employer] 05-17-2019 16:08-0400 BP Systolic 144 mm[Hg] [facility] [place] [place] 05-17-2019 16:08-0400 Pulse (Heart Rate) 82 /min [place], [place] 05-17-2019 16:08-0400 Pulse Oximetry 93 % [facility] [place] 05-17-2019 16:08-0400 Respiratory Rate 21 /min Damon [employer] [place], [place] 05-13-2019 10:30-0400 BMI (Body Mass Index) 34.67 kg/m2 Damon [employer] [place] 05-13-2019 10:30-0400 Body weight 94.5 kg [facility] [place] 05-13-2019 10:30-0400 Height 165.1 cm [place] Encounters Encounter Date Encounter Type Care Provider Facility Start: 06-24-2025 End: 06-24-2025 Office outpatient new 45 minutes Mahamed Neri DO Work Phone: [facility] Comment on above: Rectal bleeding (Paty tavia Dx) Start: 06-24-2025 End: 06-24-2025 ambulatory MAHAMED NERI [facility] Start: 06-18-2025 End: 06-19-2025 Refill Mahamed Neri DO Work Phone: [facility] Comment on above: Acquired hypothyroid ism (Primary Dx) Start: 06-12-2025 End: 06-12-2025 Office outpatient visit 25 minutes Mahamed Neri DO Work Phone: [facility] Comment on above: 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); Mood disorder due to medical condition; Refractory epilepsy (HCC); Hypertension goal BP (blood pressure) < 140/90; Acquired hypothyroidism; Benign prostatic hyperplasia with urinary obstruction and other lower urinary tract symptoms Start: 06-12-2025 End: 06-12-2025 Orders Only Mahamed Neri DO Work Phone: [facility] Comment on above: Encounter for colore ctal cancer screening (Primary Dx) Start: 06-12-2025 ambulatory MAHAMED NERI [facility] Start: 06-09-2025 End: 06-09-2025 Orders Only Mahamed Neri DO Work Phone: [facility] Start: 06-03-2025 ambulatory ANUJA BUCKLEY Facility: [facility] Start: 05-13-2025 End: 05-13-2025 Refill Mahamed Neri DO Work Phone: [facility] Start: 05-08-2025 End: 05-08-2025 Office outpatient visit 25 minutes Carrie García MD Work Phone: [facility] Comment on above: Seizure disorder (Pr imary Dx); S/P placement of VNS (vagus nerve stimulation) device Start: 05-08-2025 ambulatory CARRIE GARCÍA Facili ty:[facility] Start: 05-07-2025 End: 05-07-2025 Patient encounter procedure Danny BEEBEM Work Phone: [facility] Comment on above: Onychomycosis (Prima ry Dx); Peripheral vascular disease, unspecified Start: 05-07-2025 End: 05-07-2025 ambulatory DANNY TORRES JR. [facility] Start: 05-05-2025 End: 05-06-2025 Refill Mahamed Neri DO Work Phone: [facility] Start: 04-21-2025 End: 04-21-2025 Office outpatient new 45 minutes Nidia Crain MD MPH Work Phone: [facility] Comment on above: Benign prostatic hyp erplasia with lower urinary tract symptoms, symptom details unspecified (Primary Dx); Urinary hesitancy Start: 04-21-2025 End: 04-21-2025 ambulatory NIDIA CRAIN [facility] Start: 03-24-2025 End: 03-24-2025 Refill Mahamed Neri DO Work Phone: [facility] Start: 03-17-2025 ambulatory ANUJA BUCKLEY Facility: [facility] Start: 03-13-2025 ambulatory MAHAMED NERI [facility] Start: 01-31-2025 End: 01-31-2025 Patient encounter procedure Danny Torres DPM Work Phone: [facility] Comment on above: Onychomycosis (Prima ry Dx); Peripheral vascular disease, unspecified Start: 01-31-2025 End: 01-31-2025 ambulatory DANNY T[facility]RES JR[facility] Start: 01-28-2025 ambulatory MAHAMED NERI [facility] Start: 01-20-2025 ambulatory ANUJA Tinsley BUCKLEY Facility: [facility] Start: 12-21-2024 End: 02-20-2025 Follow-up encounter Mahamed Neri DO Work Phone: [facility] Comment on above: Comprehensive [employer] lic Panel, PSA, Screen, Hepatitis C Ab with Reflex to HCV Virus Quantitation, HIV 1/2 Screen (4th Generation) Start: 12-19-2024 End: 12-19-2024 Chart abstracting Mahamed Neri DO Work Phone: [facility] Start: 12-17-2024 End: 12-17-2024 Office outpatient visit 40 minutes Mahamed Neri DO Work Phone: [facility] Comment on above: 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); Mood disorder due to medical condition; Profound intellectual disability; Refractory epilepsy (HCC); S/P cholecystectomy; Chronic constipation; Hemorrhoids, unspecified hemorrhoid type; Gastroesophageal reflux disease, unspecified whether esophagitis present; JAIME on CPAP; Hypertension goal BP (blood pressure) < 140/90; Hyperlipidemia LDL goal <100; Acquired hypothyroidism; Healthcare maintenance; Tuberculosis screening; Screening for malignant neoplasm of prostate; Screening for HIV (human immunodeficiency virus); Need for hepatitis C screening test Start: 12-17-2024 End: 12-17-2024 Patient encounter status Mahamed Neri DO Work Phone: [facility] Start: 12-17-2024 End: 12-17-2024 Encounter for general adult medical examination without abnormal findings MAHAMED NERI [facility] Start: 12-17-2024 End: 12-17-2024 Refill Mahamed Neri DO Work Phone: [facility] [facility] Comment on above: Chronic constipation Start: 12-11-2024 End: 12-13-2024 ambulatory KAUSHAL AVITIA Facility:[facility] Start: 12-11-2024 End: 12-13-2024 Subsequent hospital visit by physician Mya Jim MD Work Phone: [id number] Comment on above: Epilepsy Start: 11-20-2024 End: 11-21-2024 Refill Mahamed Neri DO Work Phone: [facility] Start: 11-19-2024 End: 11-19-2024 Documentation procedure Mahamed Neri DO Work Phone: [facility] Comment on above: [employer] [place] Start: 11-19-2024 ambulatory ANUJA BUCKLEY Facility: [facility] Start: 11-13-2024 End: 11-13-2024 Documentation procedure Mahamed Neri DO Work Phone: [facility] Comment on above: Home BP Logs Start: 11-13-2024 End: 11-13-2024 Follow-up encounter Jakub Oglesby MD Work Phone: [facility] Comment on above: Calculus of GB w acu te and chronic cholecyst w/o obstruction (Primary Dx) Start: 11-13-2024 End: 11-13-2024 ambulatory MAHAMED MOHRANDRAN [facility] Ambulatory Start: 11-12-2024 End: 11-12-2024 Office outpatient visit 25 minutes Kaushal Avitia ASSEMBLY STOCK SUPERVISOR-OPERATIONS AND MAINTENANCE SPECIALIST Work Phone: [facility] Comment on above: 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, intractable, without status epilepticus (Primary Dx) Start: 11-12-2024 ambulatory KAUSHAL AVITIA Facilit y:[facility] Start: 11-01-2024 End: 11-01-2024 Patient encounter procedure Danny Melissa DPM Work Phone: [facility] Comment on above: Peripheral vascular disease, unspecified (Primary Dx) Start: 11-01-2024 End: 11-01-2024 [facility] Start: 10-26-2024 End: 10-29-2024 Evaluation and management of inpatient [facility] Start: 10-22-2024 End: 10-26-2024 Evaluation and management of inpatient [facility] Start: 10-22-2024 End: 10-22-2024 [facility] Start: 10-16-2024 End: 10-16-2024 Orders Only Mahamed Neri DO Work Phone: [facility] Comment on above: Hypertension goal BP (blood pressure) < 140/90 (Primary Dx) Start: 10-16-2024 ambulatory MAHAMED MOHRANDRAN [facility] Ambulatory Start: 10-09-2024 End: 10-09-2024 Orders Only Mahamed Neri DO Work Phone: [facility] Comment on above: Refractory epilepsy (HCC) (Primary Dx); Hypertension goal BP (blood pressure) < 140/90; Hyperlipidemia LDL goal <100; Acquired hypothyroidism; Abnormal finding of blood chemistry, unspecified Start: 10-08-2024 ambulatory ANUJA BUCKLEY Facility: [facility] Start: 10-08-2024 End: 10-08-2024 ambulatory MAHAMED CHUNG [facility] Start: 10-01-2024 ambulatory ANTHONY MUNGUIA Facili ty:[facility] Start: 09-24-2024 ambulatory ANTHONY [place] ty:[facility] Start: 09-20-2024 ambulatory CELINA ESQUIVEL Facility :[facility] Start: 09-20-2024 End: 09-20-2024 Subsequent hospital visit by physician Celina Esquivel PA-C Work Phone: [facility] Comment on above: Arrived Start: 09-11-2024 End: 09-11-2024 Office outpatient new 45 minutes Mahamed Neri DO Work Phone: [facility] Comment on above: Refractory epilepsy (HCC) (Primary Dx); 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); JAIME on CPAP; Multilevel degenerative disc disease; Benign prostatic hyperplasia with urinary obstruction and other lower urinary tract symptoms; Mood disorder due to medical condition; Hypertension goal BP (blood pressure) < 140/90; Hyperlipidemia LDL goal <100; Acquired hypothyroidism; Gastroesophageal reflux disease, unspecified whether esophagitis present Start: 09-11-2024 End: 09-11-2024 ambulatory MAHAMED MOHRANDRAN [facility] Ambulatory Start: 08-26-2024 End: 08-26-2024 Office outpatient visit 15 minutes Celina Esquivel PA-C Work Phone: [facility] Comment on above: S/P cervical spinal fusion (Primary Dx) Start: 08-26-2024 ambulatory CELINA ESQUIVEL Facility :[facility] Start: 08-26-2024 End: 08-26-2024 Subsequent hospital visit by physician Celina Esquivel PA-C Work Phone: [facility] Comment on above: Arrived Start: 08-26-2024 ambulatory CELINA ESQUIVEL Facility :[facility] Start: 08-19-2024 ambulatory ANUJA BUCKLEY Facility: [facility] Start: 08-02-2024 End: 08-02-2024 ambulatory DANNY TORRES JR. [facility] Start: 08-02-2024 End: 08-02-2024 Patient encounter procedure Danny Torres DPM Work Phone: [facility] Comment on above: Onychomycosis (Prima ry Dx); Peripheral vascular disease, unspecified (HCC) Start: 07-18-2024 End: 07-18-2024 Telephone encounter Anuja Lopez MA [facility] Comment on above: Insurance (Levetirac etam) Start: 07-10-2024 End: 07-10-2024 ambulatory ANTHONY MUNGUIA Facility:[facility] Start: 07-10-2024 End: 07-10-2024 Patient encounter procedure Lemuel Sommer OD Work Phone: Optometry Comment on above: Combined form of sen ile cataract of both eyes (Primary Dx); Physiologic anisocoria; Hyperopia, bilateral; Presbyopia Start: 06-27-2024 End: 06-27-2024 Office outpatient visit 25 minutes Kaushal Avitia ASSEMBLY STOCK SUPERVISOR-OPERATIONS AND MAINTENANCE SPECIALIST Work Phone: [facility] Comment on above: 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, intractable, without status epilepticus (Primary Dx); Encounter for adjustment and management of neurostimulator Start: 06-27-2024 ambulatory KAUSHAL AVITIA Facilit y:[facility] Start: 06-10-2024 End: 06-10-2024 Office outpatient visit 25 minutes Anthony Munguia DO Work Phone: [facility] Comment on above: Screening for diabet es mellitus (Primary Dx); Vitamin D deficiency; B12 deficiency; Screening for lipid disorders; Mixed hyperlipidemia; Primary hypertension; Elevated blood sugar; Acquired hypothyroidism; Vitamin D deficiency, unspecified; Benign prostatic hyperplasia with urinary obstruction and other lower urinary tract symptoms; Moderate episode of recurrent major depressive disorder; Undifferentiated schizophrenia (Multi); Osteoarthritis of cervical spine with myelopathy; Development delay; Dementia with other behavioral disturbance, unspecified dementia severity, unspecified dementia type; Spinal stenosis, lumbar region without neurogenic claudication; Recurrent falls; General weakness Start: 06-10-2024 End: 06-10-2024 ambulatory ANTHONY [facility] Ambulatory Start: 05-30-2024 End: 05-30-2024 Office outpatient visit 25 minutes Kaushal Avitia ASSEMBLY STOCK SUPERVISOR-OPERATIONS AND MAINTENANCE SPECIALIST Work Phone: [facility] Comment on above: 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 Ambulatory Start: 05-14-2024 End: 05-15-2024 Emergency department patient visit Ginette Torres DO Work Phone: [facility] Comment on above: Breakthrough seizure (Multi) (Primary Dx) Start: 05-01-2024 End: 05-01-2024 Patient encounter procedure aDnny Torres DPM Work Phone: [facility] Comment on above: Onychomycosis (Prima ry Dx); Peripheral vascular disease, unspecified (HCC) Start: 04-03-2024 End: 04-03-2024 Office outpatient visit 25 minutes Shashank Padilla MD Work Phone: [facility] Comment on above: Benign prostatic hyp erplasia with urinary obstruction and other lower urinary tract symptoms; Urinary frequency; Urinary incontinence, unspecified type Start: 02-28-2024 End: 02-28-2024 ambulatory ANTHONY [facility] Start: 02-28-2024 End: 02-28-2024 Encounter for general adult medical examination without abnormal findings ANTHONY [facility] Start: 02-27-2024 End: 02-27-2024 ambulatory DANNY 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, intractable, without status epilepticus (Primary Dx); S/P placement of VNS (vagus nerve stimulation) device; Encounter for adjustment and management of neurostimulator Start: 01-31-2024 End: 01-31-2024 Office outpatient new 30 minutes Danny Torres DPLaureano Work Phone: [facility] Comment on above: Peripheral vascular disease, unspecified (HCC) (Primary Dx); Onychomycosis Start: 01-24-2024 End: 01-24-2024 Office outpatient visit 25 minutes Shashank Padilla MD Work Phone: [facility] Comment on above: Benign prostatic hyp erplasia with urinary obstruction and other lower urinary tract symptoms (Primary Dx); Urinary frequency; Urinary incontinence, unspecified type Start: 01-09-2024 End: 01-09-2024 Office outpatient visit 15 minutes Anthony Munguia DO Work Phone: [facility] Comment on above: Allergic eczema (Paty tavia Dx); Nail fungus Start: 01-02-2024 End: 01-02-2024 ambulatory ANTHONY [facility] Start: 12-07-2023 End: 12-07-2023 ambulatory LEMUEL SOMMER II Facility:[facility] Start: 12-07-2023 End: 12-07-2023 Patient encounter procedure Lemuel Sommer OD Work Phone: Optometry Comment on above: Combined form of sen ile cataract of both eyes (Primary Dx); Physiologic anisocoria Start: 11-22-2023 End: 11-22-2023 Office outpatient visit 15 minutes Kaushal Avitia ASSEMBLY STOCK SUPERVISOR-OPERATIONS AND MAINTENANCE SPECIALIST Work Phone: [facility] Comment on above: 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, intractable, without status epilepticus (Primary Dx); Encounter for adjustment and management of neurostimulator; Development delay Start: 10-18-2023 End: 10-18-2023 Office outpatient visit 15 minutes Ulises Li MD Work Phone: [facility] Comment on above: 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, intractable, without status epilepticus (Primary Dx); Encounter for adjustment and management of neurostimulator Start: 09-20-2023 End: 09-20-2023 Office outpatient visit 25 minutes Kaushal Avitia APRN-OPERATIONS AND MAINTENANCE SPECIALIST Work Phone: [facility] Comment on above: Focal epilepsy (Prim lady Dx); Encounter for adjustment and management of neurostimulator Start: 08-30-2023 End: 08-30-2023 Subsequent hospital visit by physician Ulises Li MD Work Phone: [facility] Comment on above: Aftercare following surgery Start: 08-16-2023 End: 08-16-2023 Office consultation new/estab patient 60 min Zuleyka Lewis DO Work Phone: Pre-Procedure Evaluation and Assessment [facility] Comment on above: Preop exam for inter nal medicine (Primary Dx); Generalized idiopathic epilepsy and epileptic syndromes, intractable, without status epilepticus; Obstructive sleep apnea syndrome; Hypothyroidism, unspecified type; Hyperlipidemia, unspecified hyperlipidemia type; Essential hypertension; Development delay; Intellectual disability; Abnormal involuntary movement; Gastroesophageal reflux disease without esophagitis; Prediabetes Start: 08-16-2023 End: 08-16-2023 Patient encounter status Zuleyka Lewis DO Work Phone: [facility] Start: 06-21-2023 End: 06-21-2023 Office outpatient new 45 minutes Anthony Munguia DO Work Phone: [facility] Comment on above: Primary hypertension (Primary Dx); Mixed hyperlipidemia; Vitamin D deficiency, unspecified; Acquired hypothyroidism; Benign prostatic hyperplasia with urinary obstruction and other lower urinary tract symptoms; Undifferentiated schizophrenia (CMS/HCC); Moderate episode of recurrent major depressive disorder (CMS/HCC); Bilateral leg weakness; Spinal stenosis, lumbar region without neurogenic claudication; Seizures (CMS/HCC); S/P cervical spinal fusion; Intellectual disability; Generalized idiopathic epilepsy and epileptic syndromes, intractable, without status epilepticus (CMS/HCC); Dementia with other behavioral disturbance, unspecified dementia severity, unspecified dementia type (CMS/HCC); Obstructive sleep apnea syndrome Start: 06-08-2023 End: 06-08-2023 Office consultation new/estab patient 60 min Anthony Ortiz MD Work Phone: [facility] Comment on above: Abnormal CT scan, ga llbladder (Primary Dx) Start: 06-07-2023 End: 06-07-2023 Patient encounter procedure Lemuel Sommer OD Work Phone: Optometry Comment on above: Combined form of sen ile cataract of both eyes (Primary Dx); Physiologic anisocoria; Hyperopia, bilateral; Presbyopia Start: 06-02-2023 End: 06-02-[address] [facility] Start: 2023 End: 2023 Office outpatient visit 40 minutes Ulises Li MD Work Phone: [facility] Comment on above: Seizures (Primary Dx ) Start: 04-18-2023 End: 04-18-2023 Subsequent hospital visit by physician Carrie García MD Work Phone: [facility] Comment on above: Arrived Start: 04-05-2023 End: 04-05-2023 Office outpatient new 60 minutes Carrie García MD Work Phone: [facility] Comment on above: Seizure disorder (Pr imary Dx) Start: 03-10-2023 AUDIT Qing sahu Work Phone: QR-[facility]ew[facility]-Dgcwxwa Work Phone: Start: 02-27-[address] Lucy Hahn [facility] ity:[id number] Start: 02-17-2023 Chart Update Lucy Hahn DO Work Phone: [facility]-[place] [facility] [address] Work Phone: Start: 02-08-2023 Office outpatient vi sit 15 minutes Shashank Padilla II, MD Work Phone: EW-Llopkki-Oizsubc Work Phone: Start: 02-08-[address] Shashank Padilla II Facility:[id number] Start: 01-13-2023 Chart Update Shashank Gasca Work Phone: BY-Xnrqjlc-Sgjdyaok HC 232 DO Work Phone: Start: 12-13-2022 AUDIT Shashank Gasca Work Phone: RM-Twicqst-Fqghrol Work Phone: Start: 10-14-2022 ambulatory Provider Pending Facili ty:[id number] Start: 10-10-2022 AUDIT Lucy Hahn DO Work Phone: [facility]-[place] [facility] [address] Work Phone: Start: 10-06-2022 Office outpatient ne w 45 minutes Lucy Hahn DO Work Phone: [facility]-[place] [facility] 120 Work Phone: Start: 10-06-[address] Lucy Hahn Facil ity:[id number] Start: 09-19-2022 End: 09-20-2022 Emergency department patient visit Leilani Reynolds [facility] Emergency 10 Start: 09-06-2022 End: 09-06-2022 Office outpatient visit 15 minutes Celina Esquivel PA-C Work Phone: [facility] Comment on above: S/P cervical spinal fusion (Primary Dx); Neck pain Start: 09-06-2022 End: 09-06-2022 Subsequent hospital visit by physician Carmelina Youngblood MD Work Phone: [facility] Comment on above: Arrived Start: 08-25-2022 AUDIT Shashank Gasca Work Phone: IO-Zaxth[facility]o-Faqxbkl Work Phone: Start: 07-22-2022 End: 07-22-2022 Emergency department patient visit Vikram Marr [facility] Emergency 01 Start: 07-15-2022 Office outpatient ne w 30 minutes Shasahnk Padilla II, MD Work Phone: ER-Qijjchm-Gcittid Work Phone: Start: 07-15-[address] Shashank Padilla II Facility:[id number] Start: 06-23-2022 ambulatory Provider Pending Facili ty:[id number] Start: 06-23-2022 Patient encounter procedure Mindy Saucedo OTR/L Work Phone: [facility] Work Phone: Start: 06-16-2022 Patient encounter procedure Jo Louis CCC-COMPUTER GAME TESTER [facility] Work Phone: Start: 06-16-2022 ambulatory Provider Pending Facili ty:[id number] Start: 06-09-2022 End: 06-09-2022 Office outpatient visit 25 minutes Nikki Hare MD Work Phone: [facility] Comment on above: Seizure disorder (Pr imary Dx); Cervical spinal stenosis; Development delay; Spinal stenosis, cervical region Start: 06-01-2022 End: 06-01-2022 Emergency department patient visit Shashank Goel [facility] Emergency 01 Start: 05-31-2022 End: 05-31-2022 Patient encounter procedure Lemuel Sommer OD Work Phone: Optometry Comment on above: Combined form of sen ile cataract of both eyes (Primary Dx); Hyperopia, bilateral; Regular astigmatism, bilateral Start: 05-02-2022 ambulatory Provider Pending Facili ty:[id number] Start: 05-02-2022 Patient encounter procedure Roxana Braun PT [facility] Work Phone: Start: 04-25-2022 ambulatory Provider Pending Facili ty:[id number] Start: 04-25-2022 Patient encounter procedure Maisha Baez SR VICE PRESIDENT Work Phone: [facility] Work Phone: Start: 04-20-2022 ambulatory Provider Pending Facili ty:[id number] Start: 04-20-2022 Patient encounter procedure Maisha Baez SR VICE PRESIDENT Work Phone: [facility] Work Phone: Start: 04-15-2022 ambulatory Provider Pending Facili ty:[id number] Start: 04-13-2022 ambulatory Provider Pending Facili ty:[id number] Start: 04-13-2022 Patient encounter procedure Maisha Baez SR VICE PRESIDENT Work Phone: [facility] Work Phone: Start: 04-01-2022 ambulatory Provider Pending Facili ty:[id number] Start: 03-28-2022 ambulatory Provider Pending Facili ty:[id number] Start: 03-28-2022 Patient encounter procedure Yolette Jack PT Work Phone: [facility] Work Phone: Start: 03-25-2022 ambulatory Qing Rader Facility:[id number] Start: 03-25-2022 Patient encounter procedure Marisol Dorado SR VICE PRESIDENT Work Phone: [facility] Work Phone: Start: 03-21-2022 ambulatory Qing Rader Facility:[id number] Start: 03-21-2022 Patient encounter procedure Maisha Baez SR VICE PRESIDENT Work Phone: [facility] Work Phone: Start: 03-18-2022 ambulatory Qing Rader Facility:[id number] Start: 03-18-2022 Patient encounter procedure Marisol Dorado SR VICE PRESIDENT Work Phone: [facility] Work Phone: Start: 03-14-2022 ambulatory Provider Pending Facili ty:[id number] Start: 03-14-2022 Patient encounter procedure Maisha Baez SR VICE PRESIDENT Work Phone: [facility] Work Phone: Start: 03-09-2022 End: 03-09-2022 Office outpatient visit 25 minutes Nikki Hare MD Work Phone: [facility] Comment on above: Seizure disorder (Pr imary Dx); Cervical spinal stenosis; Development delay Start: 03-08-2022 End: 03-08-2022 Office outpatient visit 15 minutes Carmelina Youngblood MD Work Phone: [facility] Comment on above: S/P cervical spinal fusion (Primary Dx) Start: 03-02-2022 Patient encounter procedure Marisol Dorado SR VICE PRESIDENT Work Phone: [facility] Work Phone: Start: 02-28-2022 Patient encounter procedure Yolette Jack PT Work Phone: [facility] Work Phone: Start: 02-25-2022 Patient encounter procedure Marisol Dorado SR VICE PRESIDENT Work Phone: [facility] Work Phone: Start: 02-25-2022 [id number], Provider : Marisol Dorado, Status: Pen, Time: 10:00 AM Marisol Dorado SR VICE PRESIDENT Work Phone: [facility] Work Phone: Start: 02-23-2022 Patient encounter procedure Marisol Dorado SR VICE PRESIDENT Work Phone: [facility] Work Phone: Start: 02-18-2022 Patient encounter procedure Marisol Dorado SR VICE PRESIDENT Work Phone: [facility] Work Phone: Start: 02-18-2022 [id number], Provider : Marisol Dorado, Status: Pen, Time: 10:00 AM Marisol Dorado SR VICE PRESIDENT Work Phone: [facility] Work Phone: Start: 02-16-2022 Patient encounter procedure Marisol Dorado SR VICE PRESIDENT Work Phone: [facility] Work Phone: Start: 02-07-2022 End: 02-08-2022 Emergency department patient visit Jace Kwon [facility] Emergency 03 Start: 01-31-2022 Patient encounter procedure Meeta Womack PT Work Phone: [facility] Work Phone: Start: 12-06-2021 ambulatory TOMMY W [facility] Start: 12-01-2021 End: 12-01-2021 Emergency department patient visit Leilanichristopher Sommer [facility] Emergency 17 Start: 11-29-2021 Patient encounter procedure Roxana Aparna PT Work Phone: [facility] Work Phone: Start: 11-26-2021 Patient encounter procedure Maisha Baez SR VICE PRESIDENT Work Phone: [facility] Work Phone: Start: 11-22-2021 Patient encounter procedure Maisha Baez SR VICE PRESIDENT Work Phone: [facility] Work Phone: Start: 11-19-2021 Patient encounter procedure Maisha Baez SR VICE PRESIDENT Work Phone: [facility] Work Phone: Start: 11-17-2021 End: 11-17-2021 Office outpatient visit 25 minutes Nikki Hare MD Work Phone: [facility] Comment on above: Seizure disorder (Pr imary Dx); Cervical spinal stenosis; Development delay; Encounter for screening for infections with a predominantly sexual mode of transmission ; Anxiety disorder, unspecified type ; Acute focal neurological deficit; Spinal stenosis, lumbosacral region Start: 11-15-2021 Patient encounter procedure Maisha Baez SR VICE PRESIDENT Work Phone: [facility] Work Phone: Start: 11-12-2021 Patient encounter procedure Marisol Dorado SR VICE PRESIDENT Work Phone: [facility] Work Phone: Start: 11-12-2021 [id number], Provider : Marisol Dorado, Status: Pen, Time: 10:00 AM Marisol Dorado SR VICE PRESIDENT [facility] Work Phone: Start: 11-10-2021 Patient encounter procedure Marisol Dorado SR VICE PRESIDENT Work Phone: [facility] Work Phone: Start: 11-10-2021 [email or web address], Provider : Marisol Dorado, Status: Pen, Time: 10:45 AM Tremayne Clement PT Work [facility]: [facility] Work Phone: Start: 11-03-2021 Patient encounter procedure Tremayne Clement PT Work Phone: [facility] Work Phone: Start: 06-06-2021 End: 06-06-2021 Emergency department patient visit SIM PATEL [facility] Start: 05-22-2021 End: 06-03-2021 Evaluation and management of inpatient QUANG ESQUIVEL Facility:[facility] Start: 05-15-2021 End: 05-22-2021 ambulatory DEBORAH DE LA VEGA [facility] Start: 05-13-2021 End: 05-13-2021 Emergency department patient visit DEBORAH DE LA VEGA [facility] Start: 05-12-2021 ambulatory DEBORAH DE LA VEGA [facility] Start: 05-11-2021 End: 05-11-2021 Emergency department patient visit DEBORAH DE LA VEGA [facility] Start: 05-07-2021 ambulatory DEBORAH DE LA VEGA [facility] Start: 04-30-2021 ambulatory DEBORAH DE LA VEGA [facility] Start: 04-27-2021 ambulatory DEBORAH M [facility] Start: 04-23-2021 ambulatory DEBORAH DE LA VEGA [facility] Start: 04-20-2021 ambulatory DEBORAH DE LA VEGA [facility] Start: 04-19-2021 End: 04-19-2021 Emergency department patient visit DEBORAH DE LA VEGA [facility] Start: 04-16-2021 ambulatory DEBORAH DE LA VEGA [facility] Start: 04-08-2021 End: 04-09-2021 ambulatory DEBORAH M [facility] Start: 09-18-2020 End: 09-18-2020 Subsequent hospital visit by physician Deborah De La Vega [facility] Laboratory Comment on above: 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 Start: 09-03-2020 End: 09-03-2020 Subsequent hospital visit by physician [facility] Wound Care Schedule [facility] Laboratory Comment on above: Open wound of abdomi nal wall, subsequent encounter (Primary Dx) Start: 08-20-2020 End: 08-20-2020 Subsequent hospital visit by physician [facility] Wound Care Schedule [facility] Wound Care Comment on above: Open wound of abdomi nal wall, subsequent encounter (Primary Dx) Start: 08-18-2020 Patient encounter procedure DEBORAH DE LA VEGA Facility:[facility] Start: 08-18-2020 End: 08-18-2020 Subsequent hospital visit by physician Deborah De La Vega [facility] Laboratory Comment on above: Diarrhea, unspecifie d type; Diarrhea of presumed infectious origin Start: 08-18-2020 End: 08-20-2020 Subsequent hospital visit by physician [facility] Xray Room [facility] Radiology Comment on above: Generalized abdomina l pain Start: 07-22-2020 End: 08-13-2020 Evaluation and management of inpatient Duy Lynn Work Phone: [facility] ICU Comment on above: Bowel perforation (H CC) (Primary Dx); Acute peritonitis (HCC); Foreign body ingestion, initial encounter; Perforated viscus; Hypothyroidism, unspecified type Start: 06-23-2020 End: 06-23-2020 Emergency department patient visit Laya Galindo Harsha Work Phone: [facility] Emergency Department Comment on above: Closed head injury w ithout loss of consciousness, initial encounter (Primary Dx); Abrasion of forehead, initial encounter Start: 06-19-2020 End: 06-19-2020 Emergency department patient visit Mal Alegria Work Phone: [facility] Emergency Department Comment on above: Contusion of right e lbow, initial encounter (Primary Dx) Start: 06-18-2020 End: 06-18-2020 Emergency department patient visit Mal Alegria Work Phone: [facility] Emergency Department Comment on above: Laceration of scalp, initial encounter (Primary Dx) Start: 03-24-2020 End: 03-24-2020 Emergency department patient visit Kvng Grodillo Sudha Work Phone: [facility] Emergency Department Comment on above: Closed head injury, initial encounter (Primary Dx); Altered mental status, unspecified altered mental status type Start: 02-10-2020 End: 02-10-2020 Documentation procedure Mio Flores Work Phone: [facility] Neuro/Spine Start: 01-13-2020 End: 01-13-2020 Office outpatient new 20 minutes Moi Flores Work Phone: [facility], Neuroscience Comment on above: HNP (herniated nucle us pulposus), cervical (Primary Dx); Spinal stenosis in cervical region; History of fall Start: 05-13-2019 End: 05-14-2019 Patient encounter procedure CARMELO LINDSEY [facility] Start: 05-13-2019 End: 05-17-2019 Evaluation and management of inpatient DAMON BATES [facility] Start: 05-13-2019 End: 05-17-2019 Evaluation and management of inpatient Damon Bates Work Phone: [facility] Start: 04-22-2019 End: 04-23-2019 Patient encounter procedure CARMELO LINDSEY [facility] Start: 04-22-2019 End: 04-22-2019 Subsequent hospital visit by physician Deborah BUITRAGO [facility] Lab Comment on above: Partial symptomatic epilepsy with complex partial seizures, intractable, without status epilepticus (HCC); Generalized convulsive epilepsy with intractable epilepsy Start: 11-23-2018 End: 11-23-2018 Patient encounter procedure PROVIDER NOT IN SYSTEM [facility] Start: 06-22-2018 End: 06-22-2018 Patient encounter procedure PROVIDER NOT IN SYSTEM [facility] Start: 09-26-2017 Office/outpatient vi carly, maninder, level 2 [facility] Work Phone: [facility] Dermatology Start: 07-21-2017 End: 07-22-2017 Ambulatory CAMILLA Gasca FELY [facility] Start: 07-18-2017 End: 07-19-2017 Ambulatory CAMILLA Gacsa FELY [facility] Start: 06-26-2017 End: 06-27-2017 Ambulatory CAMILLA Gasca FELY [facility] Start: 06-14-2017 End: 06-15-2017 Ambulatory CHRISTCHELSIEER Campos GEIGER [facility] Start: 06-01-2017 End: 06-02-2017 Ambulatory CHRISTCHELSIEER Campos MAZARIEGOSRS [facility] Start: 04-25-2017 End: 04-26-2017 Ambulatory CHRISTCHELSIEER Campos MAZARIEGOSRS [facility] Start: 04-13-2017 End: 04-14-2017 Ambulatory CAMILLA Gasca FELY [facility] Start: 04-12-2017 End: 04-13-2017 Ambulatory CHRISTCHELSIEER Campos GEIGER [facility] Start: 04-11-2017 End: 04-12-2017 Ambulatory CHRISTCHELSIEER Campos FELY [facility] Start: 04-07-2017 End: 04-08-2017 Ambulatory CATALINA CHAVIS [facility] Start: 04-06-2017 End: 04-06-2017 [facility] Start: 03-16-2017 End: 03-17-2017 Ambulatory CAMILLA Gasca FELY [facility] Start: 02-20-2017 End: 02-21-2017 Ambulatory [facility] Procedures Date Procedure Procedure Detail Performing Clinician Start: 03-17-2025 Follow-up visit Follow-up ANUJA BUCKLEY Start: 12-17-2024 History of cholecystectomy S/P cholecystectomy Mahamed Neri DO Work Phone: Start: 12-13-2024 GENERAL PROCEDURE Farzad Jim MD Work Phone: Start: 12-13-2024 CARDIAC RHYTHM Other Ot her OT Start: 12-12-2024 Blood count platelet automated Sim Maher MD Work Phone: Start: 12-11-2024 Bilirubin direct Eveline tonya Maher MD Work Phone: Start: 12-11-2024 Blood count complete automated Sim Maher MD Work Phone: Start: 12-11-2024 Drug screen quantita tive phenobarbital Sim Maher MD Work Phone: Start: 11-13-2024 SCAN OTHER ORDERS Mahamed Neri DO Work Phone: Start: 10-23-2024 Thyrotropin [Units/volume] in Serum or Plasma Nidia Crain MD MPH Work Phone: Start: 10-10-2024 Lipid 1996 panel - S lesley or Plasma Nidia Crain MD MPH Work Phone: Start: 08-26-2024 Radex spine cervical 4 or 5 views Celina Esquivel PA-C Work Phone: Start: 07-29-2024 SCAN OTHER ORDERS Mahamed Neri DO Work Phone: Start: 05-15-2024 Radiologic exam ches t single view Ginette Torres DO Work Phone: Start: 05-15-2024 Urinalysis microscop ic panel - Urine Qualitative by Automated Ginette Torres DO Work Phone: Start: 05-15-2024 Urnls dip stick/tabl et reagent auto microscopy Ginette Torres DO Work Phone: Start: 05-14-2024 Comprehensive metabo lic panel Ginette Torres DO Work Phone: Start: 05-14-2024 Drug screen quantita tive phenytoin total Ginette Torres DO Work Phone: Start: 05-14-2024 EXTRA TUBES Ginette Torres DO Work Phone: Start: 05-14-2024 LIGHT BLUE TOP Ginette Torres DO Work Phone: Start: 02-28-2024 Lipid 1996 panel - S lesley or Plasma Shashank Padilla MD Work Phone: Start: 02-28-2024 Thyrotropin [Units/volume] in Serum or Plasma Shashank Padilla MD Work Phone: Start: 08-30-2023 CARDIAC RHYTHM Other Ot her Start: 08-16-2023 Antibody screen Zuleyka Lewis DO Work Phone: Start: 08-16-2023 EXTRA LIGHT BLUE TOP Ca rmen R Lewis DO Work Phone: Start: 08-16-2023 PTT WITH MIXING STUDY C hannah R Lewis DO Work Phone: Start: 08-16-2023 Blood typing serolog ic abo Zuleyka R Lewis DO Work Phone: Start: 08-16-2023 CBC AND ELECTRONIC DIFF Zuleyka R Lewis DO Work Phone: Start: 08-16-2023 Complete blood count with white cell differential, automated Zuleyka R Lewis DO Work Phone: Start: 08-16-2023 End: 08-16-2023 Hemoglobin glycosylated a1c Zuleyka R Lewis DO Work Phone: Start: 08-16-2023 EXTRA MICRO Zuleyka R S kinner DO Work Phone: Start: 08-16-2023 URINALYSIS REFLEX TO CULTURE Uzleyka R Lewis DO Work Phone: Start: 08-16-2023 End: 08-16-2023 Culture bct isol&prsmptv id isolate ea urine Zuleyka Lewis DO Work Phone: Start: 08-16-2023 Thyrotropin [Units/volume] in Serum or Plasma Anthony Oberhauser DO Work Phone: Start: 06-02-2023 Ammonia [Mass/volume ] in Plasma ANTHONY OBERHAUSER Start: 06-02-2023 CBC W Auto Different ial panel - Blood ANTHONY OBERHAUSER Start: 06-02-2023 Comprehensive metabo lic 2000 panel - Serum or Plasma ANTHONY OBERHAUSER Start: 06-02-2023 Cyanocobalamin vitam in b-12 ANTHONY OBERHAUSER Start: 06-02-2023 Ferritin [Mass/volum e] in Serum or Plasma ANTHONY OBERHAUSER Start: 06-02-2023 IRON AND TIBC ANTHONY OBE RHAUSER Start: 06-02-2023 Lipid panel ANTHONY LYDIA GABE Start: 06-02-2023 Magnesium [Mass/volu me] in Serum or Plasma ANTHONY OBERHAUSER Start: 06-02-2023 PHENobarbital [Mass/volume] in Serum or Plasma ANTHONY OBERHAUSER Start: 06-02-2023 Phenytoin [Mass/volu me] in Serum or Plasma ANTHONY OBERHAUSER Start: 06-02-2023 PROSTATE SPECIFIC ANTIGEN ANTHONY OBERHAUSER Start: 06-02-2023 VITAMIN D 25-HYDROXY,TOTAL ANTHONY OBERHAUSER Start: 06-02-2023 Lipid 1996 panel - S lesley or Plasma Lemuel Sommer II, OD Work Phone: Start: 06-02-2023 Thyrotropin [Units/volume] in Serum or Plasma Anthony Ortiz MD Work Phone: Start: 09-19-2022 End: 09-19-2022 EKG impression Leilani Noemi Start: 09-06-2022 Radex entir thrc lmb r crv sac spi w/skull 2/3 vw Carmelina Youngblood MD Work Phone: Start: 05-25-2021 Antibody screen QUANG RODARTE Comment on above: Performed By: #### X M #### [facility] ([facility]) [address] [address] Start: 09-03-2020 Basic metabolic pane l calcium total Luis Alberto Andersona Work Phone: Start: 09-03-2020 Blood count complete auto&auto difrntl wbc Luis Alberto Pablo Rana Work Phone: Start: 09-03-2020 Hemoglobin glycosyla colleen a1c Luis Alberto Pablo Rana Work Phone: Start: 09-03-2020 Lipid panel Luis Alberto Andersona Work Phone: Start: 08-18-2020 Iadna-dna/rna gi pth gn multiplex probe tq 08-07 Deborah De La Vega Work Phone: Start: 08-18-2020 Radiologic exam abdo men 1 view Deborah De La Vega Work Phone: Start: 08-11-2020 End: 08-11-2020 Blood count complete auto&auto difrntl wbc Laya Rodriges Work Phone: Start: 08-11-2020 Assay of magnesium Shekhar b Betito Work Phone: Start: 08-10-2020 Assay of magnesium Shekhar b Betito Work Phone: Start: 08-10-2020 Assay of phosphorus inorganic Laya Rodriges Work Phone: Start: 08-10-2020 End: 08-10-2020 Blood count complete auto&auto difrntl wbc Laya Rodriges Work Phone: Start: 08-09-2020 Assay of magnesium Shekhar b Betito Work Phone: Start: 08-09-2020 Blood count complete auto&auto difrntl wbc Laya Rodriges Work Phone: Start: 08-08-2020 Assay of magnesium Shekhar b Betito Work Phone: Start: 08-08-2020 Blood count complete auto&auto difrntl wbc Laya Rodriges Work Phone: Start: 08-07-2020 Assay of magnesium Shekhar b Betito Work Phone: Start: 08-07-2020 Assay of phosphorus inorganic Laya Rodriges Work Phone: Start: 08-07-2020 Blood count complete auto&auto difrntl wbc Laya Rodriges Work Phone: Start: 08-06-2020 End: 08-06-2020 Blood count complete auto&auto difrntl wbc Laya Rodriges Work Phone: Start: 08-06-2020 Assay of magnesium Shekhar b Betito Work Phone: Start: 08-05-2020 Assay of magnesium Shekhar b Betito Work Phone: Start: 08-05-2020 Assay of phosphorus inorganic Laya Rodriges Work Phone: Start: 08-05-2020 End: 08-05-2020 Blood count complete auto&auto difrntl wbc Laya Rodriges Work Phone: Start: 08-04-2020 End: 08-04-2020 Blood count complete auto&auto difrntl wbc Laya Rodriges Work Phone: Start: 08-04-2020 Assay of magnesium Shekhar b Betito Work Phone: Start: 08-03-2020 End: 08-03-2020 Blood count complete auto&auto difrntl wbc Laya Rodriges Work Phone: Start: 08-03-2020 Assay of magnesium Shekhar b Betito Work Phone: Start: 08-03-2020 Assay of phosphorus inorganic Laya Rodriges Work Phone: Start: 08-02-2020 Radex shoulder compl ete minimum 2 views Justen Burch Work Phone: Start: 08-02-2020 End: 08-02-2020 Blood count complete auto&auto difrntl wbc Lyaa Rodriges Work Phone: Start: 08-02-2020 Assay of magnesium Shekhar b Betito Work Phone: Start: 08-01-2020 End: 08-01-2020 Blood count complete auto&auto difrntl wbc Laya Rodriges Work Phone: Start: 08-01-2020 Assay of magnesium Shekhar b Betito Work Phone: Start: 07-31-2020 Drug screen quantita tive vancomycin Laya Rodriges Work Phone: Start: 07-31-2020 Assay of magnesium Shekhar b Betito Work Phone: Start: 07-31-2020 Blood count complete auto&auto difrntl wbc Laya Rodriges Work Phone: Start: 07-30-2020 Radiologic exam ches t single view Laya Rodriges Work Phone: Start: 07-30-2020 Assay of magnesium Shekhar b Betito Work Phone: Start: 07-30-2020 Blood count complete auto&auto difrntl wbc Laya Rodriges Work Phone: Start: 07-29-2020 Transfuse erythrocyt es [Volume] Laya Rodriges Work Phone: Start: 07-29-2020 Antibody screen Duy banks Start: 07-29-2020 End: 07-29-2020 Blood count complete auto&auto difrntl wbc Laya Rodriges Work Phone: Start: 07-29-2020 Blood typing serolog ic abo Laya Rodriges Work Phone: Start: 07-29-2020 Assay of magnesium Shekhar b Betito Work Phone: Start: 07-29-2020 Drug screen quantita tive vancomycin Quang Betito Work Phone: Start: 07-28-2020 Culture bacterial bl ood aerobic w/id isolates Quang Esquivel Work Phone: Start: 07-28-2020 CULTURE, BLOOD 1 Quang Esquivel Work Phone: Start: 07-28-2020 Radiologic exam abdo men 1 view Laya Rodriges Work Phone: Start: 07-28-2020 End: 07-28-2020 Blood count complete auto&auto difrntl wbc Lyaa Rodriges Work Phone: Start: 07-28-2020 Assay of magnesium Shekhar b Betito Work Phone: Start: 07-27-2020 End: 07-27-2020 Blood count complete auto&auto difrntl wbc Laya Rodriges Work Phone: Start: 07-27-2020 Assay of magnesium Shekhar b Betito Work Phone: Start: 07-26-2020 POTASSIUM W/ REFLEX TO MAGNESIUM Quang Esquivel Work Phone: Start: 07-26-2020 Assay of magnesium Shekhar b Betito Work Phone: Start: 07-26-2020 End: 07-26-2020 Blood count complete auto&auto difrntl wbc Laya Rodriges Work Phone: Start: 07-26-2020 Quantitation drug no t elsewhere specified Quang Esquivel Work Phone: Start: 07-26-2020 Drug screen quantita tive phenytoin free Quang Esquivel Work Phone: Start: 07-26-2020 Assay of thyroid stimulating hormone tsh Quang Esquivel Work Phone: Start: 07-25-2020 Culture bacterial quanttative colony count urine Rod Sandoval Work Phone: Start: 07-25-2020 Assay of magnesium Corey r Mario Rodriges Work Phone: Start: 07-25-2020 Blood count complete auto&auto difrntl wbc Laya Rodriges Work Phone: Start: 07-25-2020 BASIC METABOLIC PANE L W/ REFLEX TO MG FOR LOW K Laya Rodriges Work Phone: Start: 07-24-2020 Blood count complete automated Quang Esquivel Work Phone: Start: 07-24-2020 Hemoglobin glycosyla colleen a1c Quang Esquivel Work Phone: Start: 07-24-2020 BASIC METABOLIC PANE L W/ REFLEX TO MG FOR LOW K Laya Rodriges Work Phone: Start: 07-24-2020 Blood count complete auto&auto difrntl wbc Laya Rodriges Work Phone: Start: 07-24-2020 Transfuse erythrocyt es [Volume] Laya Rodriges Work Phone: Start: 07-24-2020 End: 07-24-2020 RBC (Bld) [#/Vol] Laya Rodriges Work Phone: Start: 07-24-2020 Transfuse erythrocyt es [Volume] Laya Rodriges Work Phone: Start: 07-24-2020 Antibody screen Duy banks Start: 07-24-2020 End: 07-24-2020 Blood typing serologic abo Laya Rodriges Work Phone: Start: 07-24-2020 Ct abdomen & pelvis w/o contrast material Rod Koch Work Phone: Start: 07-24-2020 Blood count complete auto&auto difrntl wbc Laya Rodriges Work Phone: Start: 07-24-2020 BASIC METABOLIC PANE L W/ REFLEX TO MG FOR LOW K Laya Rodriges Work Phone: Start: 07-23-2020 Ct head/brain w/o contrast material Quang Esquivel Work Phone: Start: 07-23-2020 Ct cervical spine w/ o contrast material Quang Esquivel Work Phone: Start: 07-23-2020 Blood count complete auto&auto difrntl wbc Laya Rodriges Work Phone: Start: 07-23-2020 BASIC METABOLIC PANE L W/ REFLEX TO MG FOR LOW K Laya Martin Zeb Work Phone: Start: 07-22-2020 Level iv surg pathol ogy gross&microscopic exam Laya Martin Zeb Work Phone: Start: 07-22-2020 End: 07-22-2020 BOWEL RESECTION HEMICOLECTOMY LAPAROSCOPIC ROBOTIC Laya Martin Zeb Work Phone: Start: 07-22-2020 Radex shoulder compl ete minimum 2 views Duy Lynn Work Phone: Start: 07-22-2020 Ct abdomen & pelvis w/o contrast material Duy Lynn Work Phone: Start: 07-22-2020 Assay of amylase Duy Lynn Work Phone: Start: 07-22-2020 Assay of lipase Duy banks Work Phone: Start: 07-22-2020 Blood count complete auto&auto difrntl wbc Duy Lynn Work Phone: Start: 07-22-2020 COVID-19 AMBULATORY Jam arianna Lynn Work Phone: Start: 06-23-2020 Ct head/brain w/o contrast material Laya Mcleod Work Phone: Start: 06-19-2020 Radex elbow complete minimum 3 views Mal Alegria Work Phone: Start: 06-18-2020 Ct head/brain w/o contrast material Mal Alegria Work Phone: Start: 06-18-2020 Ct cervical spine w/ o contrast material Mal Alegria Work Phone: Start: 06-18-2020 LACERATION REPAIR Mal Alegria Work Phone: Start: 03-24-2020 CT of head without contrast Kvng Haley Work Phone: Start: 03-24-2020 Radex wrist complete minimum 3 views Kvng Haley Work Phone: Start: 03-24-2020 Basic metabolic 1998 panel - Serum or Plasma Kvng Haley Work Phone: Start: 03-24-2020 Complete blood count with white cell differential, automated Kvng Haley Work Phone: Start: 03-24-2020 Complete blood count with white cell differential, manual Kvng Haley Work Phone: Start: 03-24-2020 Hepatic function 200 0 panel - Serum or Plasma Kvng Haley Work Phone: Start: 03-24-2020 LAVENDER TOP Kvng waller White Work Phone: Start: 03-24-2020 LIGHT BLUE TOP Kvng Haley Work Phone: Start: 03-24-2020 LIGHT GREEN TOP Kvng Haley Work Phone: Start: 03-24-2020 MINT GREEN TOP Kvng Haley Work Phone: Start: 03-24-2020 Phenytoin [Mass/volu me] in Serum or Plasma Kvng Haley Work Phone: Start: 03-24-2020 RAINBOW DRAW Kvng waller White Work Phone: Start: 05-17-2019 CPAP SUBRAHMANY AM CHODISETTY Start: 05-17-2019 CPAP SUBRAHMANY AM CHODISETTY Start: 05-17-2019 DISCHARGE PATIENT SUBRA HMANYAM CHODISETTY Start: 05-17-2019 CPAP SUBRAHMANY AM CHODISETTY Start: 05-17-2019 CPAP SUBRAHMANY AM CHODISETTY Start: 05-17-2019 INITIATE OXYGEN THER APY PROTOCOL SUBRAHMANYAM CHODISETTY Start: 05-17-2019 CPAP SUBRAHMANY AM CHODISETTY Start: 05-17-2019 CPAP SUBRAHMANY AM CHODISETTY Start: 05-16-2019 CPAP SUBRAHMANY AM CHODISETTY Start: 05-16-2019 CPAP SUBRAHMANY AM CHODISETTY Start: 05-16-2019 CPAP SUBRAHMANY AM CHODISETTY Start: 05-16-2019 CPAP SUBRAHMANY AM CHODISETTY Start: 05-16-2019 INITIATE OXYGEN THER APY PROTOCOL SUBRAHMANYAM CHODISETTY Start: 05-16-2019 CPAP SUBRAHMANY AM CHODISETTY Start: 05-16-2019 CPAP SUBRAHMANY AM CHODISETTY Start: 05-15-2019 CPAP SUBRAHMANY AM CHODISETTY Start: 05-15-2019 CPAP SUBRAHMANY AM CHODISETTY Start: 05-15-2019 CPAP SUBRAHMANY AM CHODISETTY Start: 05-15-2019 CPAP SUBRAHMANY AM CHODISETTY Start: 05-15-2019 INITIATE OXYGEN THER APY PROTOCOL SUBRAHMANYAM CHODISETTY Start: 05-15-2019 CPAP SUBRAHMANY AM CHODISETTY Start: 05-15-2019 CPAP SUBRAHMANY AM CHODISETTY Start: 05-14-2019 CPAP SUBRAHMANY AM CHODISETTY Start: 05-14-2019 CPAP SUBRAHMANY AM CHODISETTY Start: 05-14-2019 Drug screen quantita tive phenobarbital SUBRAHMANYAM CHODISETTY Start: 05-14-2019 PHENYTOIN LEVEL, TOT AL AND FREE SUBRAHMANYAM CHODISETTY Start: 05-14-2019 Drug screen quantita tive phenobarbital [place] [employer] Work Phone: Start: 05-14-2019 Drug screen quantita tive phenytoin total [place] [facility] Work Phone: Start: 05-14-2019 CPAP SUBRAHMANY AM CHODISETTY Start: 05-14-2019 CPAP SUBRAHMANY AM CHODISETTY Start: 05-14-2019 INITIATE OXYGEN THER APY PROTOCOL SUBRAHMANYAM CHODISETTY Start: 05-14-2019 Blood count complete auto&auto difrntl wbc SUBRAHMANYAM CHODISETTY Start: 05-14-2019 Comprehensive metabo lic panel SUBRAHMANYAM CHODISETTY Start: 05-14-2019 CPAP SUBRAHMANY AM CHODISETTY Start: 05-14-2019 BASIC METABOLIC PANE L W/ REFLEX TO MG FOR LOW K [place] [employer] Work Phone: Start: 05-14-2019 Blood count complete auto&auto difrntl wbc [place] [employer] Work Phone: Start: 05-14-2019 CPAP SUBRAHMANY AM CHODISETTY Start: 05-13-2019 CPAP SUBRAHMANY AM CHODISETTY Start: 05-13-2019 CPAP SUBRAHMANY AM CHODISETTY Start: 05-13-2019 Monitor id& lateralization seizure focus eeg SUBRAHMANYAM CHODISETTY Start: 05-13-2019 EEG 24 HOUR AMBULATORY [place] Vick Work Phone: Start: 05-13-2019 DIET GENERAL SUBRAHMANY AM CHODISETTY Start: 05-13-2019 MISCELLANEOUS NURSIN G CARE ORDER (SPECIFY) SUBRAHMANYAM CHODISETTY Start: 05-13-2019 ADVANCE DIET TOLE RATED (NURSING COMMUNICATION) SUBRAHMANYAM CHODISETTY Start: 05-13-2019 FULL CODE SUBRAHMANY AM CHODISETTY Start: 05-13-2019 INITIATE OXYGEN THER APY PROTOCOL SUBRAHMANYAM CHODISETTY Start: 05-13-2019 NOTIFY PHYSICIAN (SPECIFY) SUBRAHMANYAM CHODISETTY Start: 05-13-2019 NURSING SWALLOW ASSESSMENT SUBRAHMANYAM CHODISETTY Start: 05-13-2019 REASON FOR NO MECHAN ICAL VTE PROPHYLAXIS SUBRAHMANYAM CHODISETTY Start: 05-13-2019 TOBACCO CESSATION EDUCATION SUBRAHMANYAM CHODISETTY Start: 05-13-2019 CPAP SUBRAHMANY AM CHODISETTY Start: 05-13-2019 NEURO CHECKS SUBRAHMANY AM CHODISETTY Start: 05-13-2019 VITAL SIGNS SUBRAHMANY AM CHODISETTY Start: 05-13-2019 CONTACT ISOLATION SUBRA HMANYAM CHODISETTY Start: 05-13-2019 PATIENT STATUS (DIRECT) SUBRAHMANYAM CHODISETTY Start: 04-22-2019 Assay of benzodiazepines SUBRAHMANYAM CHODISETTY Start: 04-22-2019 Drug screen quantita tive phenobarbital SUBRAHMANYAM CHODISETTY Start: 04-22-2019 PHENYTOIN LEVEL, TOT AL AND FREE SUBRAHMANYAM CHODISETTY Start: 04-22-2019 Quantitation drug no t elsewhere specified SUBRAHMANYAM CHODISETTY Start: 04-22-2019 Drug screen quantita tive phenobarbital Subraanyam Chodisetty Work Phone: Start: 04-22-2019 Drug screen quantita tive phenytoin total Subrahmanyam Chodisetty Work Phone: Start: 04-22-2019 Quantitation drug no t elsewhere specified [employer] Work Phone: Start: 07-21-2017 BASIC METABOLIC PANEL C HRISTOPHER SEARS Start: 07-21-2017 CBC ALDO R SEARS Start: 07-21-2017 Lipid panel ALDO R SEARS Start: 07-21-2017 PHENOBARBITAL LEVEL CHR ISTOPHER SEARS Start: 07-21-2017 PHENYTOIN LEVEL, TOTAL CHRISTOPHER SEARS Start: 07-21-2017 PSA, FREE ALDO R SEARS Start: 07-21-2017 T4, FREE ALDO R SEARS Start: 07-21-2017 TSH WITHOUT REFLEX CHRI STOPHER SEARS Start: 07-21-2017 VITAMIN D 25 HYDROXY CH RISTOPHER SEARS Start: 07-18-2017 BASIC METABOLIC PANEL C HRISTOPHER SEARS Start: 07-18-2017 CBC ALDO R SEARS Start: 07-18-2017 Lipid panel ALDO R SEARS Start: 07-18-2017 PHENOBARBITAL LEVEL CHR ISTOPHER SEARS Start: 07-18-2017 PHENYTOIN LEVEL, TOTAL CHRISTOPHER SEARS Start: 07-18-2017 PSA, FREE ALDO R SEARS Start: 07-18-2017 T4, FREE ALDO R SEARS Start: 07-18-2017 TSH WITHOUT REFLEX CHRI STOPHER SEARS Start: 07-18-2017 VITAMIN D 25 HYDROXY CH RISTOPHER SEARS Start: 06-26-2017 Mri brain brain stem w/o contrast material CHRISTOPHER SEARS Start: 06-14-2017 Radiologic examinati on knee 3 views CHRISTOPHER SEARS Start: 06-01-2017 PHENYTOIN LEVEL, TOTAL CHRISTOPHER SEARS Start: 04-25-2017 PHENOBARBITAL LEVEL CHR ISTOPHER SEARS Start: 04-13-2017 PHENYTOIN LEVEL, TOTAL CHRISTOPHER SEARS Start: 04-12-2017 PHENYTOIN LEVEL, TOTAL CHRISTOPHER SEARS Start: 04-11-2017 PHENYTOIN LEVEL, TOTAL CHRISTOPHER SEARS Start: 04-07-2017 PHENYTOIN LEVEL, TOTAL CHRISTOPHER SEARS Start: 04-06-2017 Ct cervical spine w/ o contrast material CAMILLA GEIGER Start: 04-06-2017 Ct maxillofacial w/o contrast material CAMILLA GEIGER Start: 04-06-2017 Ct head/brain w/o contrast material CAMILLA GEIGER Start: 04-06-2017 PHENYTOIN LEVEL, TOT AL AND FREE CAMILLA GEIGER Start: 04-06-2017 APPLY ICE TO AFFECTE D AREA CAMILLA GEIGER Start: 03-16-2017 PHENYTOIN LEVEL, TOTAL CAMILLA GEIGER Start: 02-20-2017 EKG 12-LEAD ALDO Galindo FELY Operative procedure on spinal structure Lucy Thomashley DO Work Phone: Procedure on abdomen Lucy chavez DO Work Phone: Plan of Treatment Date Care Activity Detail Author Start: 2034 Respiratory Syncytial Virus Immunization: Risk, 60-74 Risk, or 75+ (1 - 1-dose 75+ series) Respiratory Syncytial Virus Immunization: Risk, 60-74 Risk, or 75+ (1 - 1-dose 75+ series) [facility] Start: 2034 RSV High Risk: (Elderly (60+) or Population) (1 - 1-dose 75+ series) RSV High Risk: (Elderly (60+) or Population) (1 - 1-dose 75+ series) [facility] Start: 2034 RSV Vaccine (1 - 1-dose 75+ series) RSV Vaccine (1 - 1-dose 75+ series) [facility] Start: 12-02-2031 DTaP/Tdap/Td Vaccines (4 - Td or Tdap) DTaP/Tdap/Td Vaccines (4 - Td or Tdap) [facility] Start: 12-02-2031 Tetanus vaccination [facility] Start: 12-02-2031 Urine microalbumin profile DTaP,Tdap,Td Vaccine (4 - Td or Tdap) [facility] Start: 12-02-2031 Vaccination for diphtheria, pertussis, and tetanus Tetanus/Diphtheria/Pertu ssis (4 - Td or Tdap) [facility] Start: 05-11-2031 Tetanus vaccination TETANUS [facility] Start: 10-10-2029 Lipid panel Lipid Panel [facility] Start: 02-27-[address] [facility] Start: 06-02-2028 Lipid 1996 panel - Serum or Plasma Lipid Screening [facility] Start: 06-02-[address] [facility] Start: 06-02-2028 Prostate Cancer Screening Discussion Prostate Cancer Screening Discussion [facility] Start: 06-02-2028 Prostate specific antigen measurement Prostate Cancer Screening Discussion [facility] Start: 10-29-2027 Diabetes mellitus screening Diabetes Screening [facility] Start: 05-14-2027 Diabetes Screening Diabetes Screening [facility] Start: 02-27-2027 Diabetes mellitus screening Diabetes Screening [facility] Start: 12-17-2026 Prostate specific antigen measurement PSA Level [facility] Start: 08-16-2026 Diabetes mellitus screening Diabetes Screening [facility] Start: 08-16-2026 Diabetes Screening Diabetes Screening [facility] Start: 06-02-2026 Diabetes Screening Diabetes Screening [facility] Start: 10-28-2025 DTaP/Tdap/Td vaccine (2 - Td) DTaP/Tdap/Td vaccine (2 - Td) [place] Start: 10-28-2025 Tetanus vaccination Tetanus: Every 10yrs [facility] Start: 10-28-2025 End: 10-28-2025 Patient encounter procedure 10/28/2025 10:40 AM EDT Office Visit [facility] [address] [facility] [address] [place] [address] Kaushal Avitia, ASSEMBLY STOCK SUPERVISOR-OPERATIONS AND MAINTENANCE SPECIALIST [address] [facility] [address] [place] [address] [facility] Start: 10-23-2025 Thyroid stimulating hormone measurement TSH Level [facility] Start: 10-20-2025 End: 10-20-2025 Patient encounter procedure 10/20/2025 11:15 AM EDT Office Visit [facility] [address] [facility] [address] [place] [address] Nidia Ca MD MPH [address] [place] [address] [facility] Start: 09-24-2025 End: 09-24-2025 Patient encounter procedure 09/24/2025 11:00 AM EST Office Visit [facility] [address] [place] [address] Mahamed Neri, [address] [place] [address] [facility] Start: 08-06-2025 End: 08-06-2025 Patient encounter procedure 08/06/2025 11:00 AM EST Office Visit [facility] [address] [place] [phone] Danny Torres Jr., DPM [address] [place] [phone] [facility] Start: 07-16-2025 End: 07-16-2025 Patient encounter procedure 07/16/2025 11:00 AM EST Office Visit [facility] [address] [place] [address] Lemuel Sommer II, OD [address] [place] [address] Eye exam/[employer] [facility] Comment on above: Eye exam/[employer] Start: 06-24-2025 End: 06-24-2025 Patient encounter procedure 06/24/2025 3:45 PM EST Office Visit [facility] [address] [facility] Building, 5th [place] [address] Mahamed Neri, [address] [place] [address] Marleni Gold MD [address] [place] [address] [facility] Start: 06-12-2025 End: 06-12-2025 Patient encounter procedure 06/12/2025 11:00 AM EDT Office Visit [facility] [address] [place] [address] Mahamed Neri DO [address] [place] [address] [facility] Start: 06-03-2025 End: 06-03-2025 Telemedicine consultation with patient 06/03/2025 9:45 AM EDT Telemedicine [facility] [address] [place] [phone] Anuja Buckley MD [address]th [place] [address] [facility] Start: 05-27-2025 End: 05-27-2025 Patient encounter procedure 05/27/2025 11:20 AM EDT Office Visit [facility] [address] [place] [phone] Kaushal Avitia, ASSEMBLY STOCK SUPERVISOR-OPERATIONS AND MAINTENANCE SPECIALIST [address] 7th [place] [phone] [facility] Start: 05-08-2025 End: 05-08-2025 Patient encounter procedure 05/08/2025 11:30 AM EDT Office Visit [facility] [address] [place], [place] [phone] Carrie García MD [address] [place] [address] [facility] Start: 05-07-2025 End: 05-07-2025 Patient encounter procedure [facility] Start: 04-14-2025 COVID-19 Vaccine ( season) COVID-19 Vaccine ( season) [facility] Start: 04-14-2025 COVID-19 Vaccine ( season) COVID-19 Vaccine ( season) [facility] Start: 04-14-2025 Influenza vaccination [facility] Start: 04-02-2025 End: 04-02-2025 Patient encounter procedure 04/02/2025 10:00 AM EDT Office Visit [facility] [address] [facility] [address] [place] [phone] Shashank Padilla MD [address] [place] [address] [facility] Start: 03-12-2025 End: 03-12-2025 Patient encounter procedure 03/12/2025 10:00 AM EDT Office Visit [facility] [address] [place] [address] Mahamed Neri, DO [address] [place] [address] [facility] Start: 02-27-2025 Thyroid stimulating hormone measurement TSH Level [facility] Start: 01-31-2025 End: 01-31-2025 Patient encounter procedure 01/31/2025 10:30 AM EDT Office Visit [facility] [address] [place] [phone] Danny Torres Jr., DPM [address] [place] [address] [facility] Start: 01-20-2025 End: 01-20-2025 Telemedicine consultation with patient 01/20/2025 9:45 AM EDT Telemedicine [facility] [address] [place] [phone] Anuja uBckley MD [address] [place] [address] [facility] Start: 01-01-2025 Prostate specific antigen measurement PSA Prostate Cancer Screening [facility] Start: 12-23-2024 End: 12-23-2024 Patient encounter procedure 12/23/2024 10:00 AM EDT [facility] [address] [facility] [address] [place] [phone] Anthony Munguia, [address] [facility] [place] [address] [facility] Start: 12-17-2024 End: 12-17-2024 Patient encounter procedure 12/17/2024 10:20 AM EDT Office Visit [facility] [address] [place] [phone] Mahamed Neri, [address] [place] [address] [facility] Start: 12-11-2024 Evaluation and management of inpatient 12/11/2024 8:30 AM EDT Hospital Encounter [facility] [address] [place] [phone] Mya Jim MD [address] 7th [place] [address] Generalized idiopathic epilepsy and epileptic syndromes, intractable, without status epilepticus [facility] Comment on above: Generalized idiopathic epilepsy and epil eptic syndromes, intractable, without status epilepticus Start: 11-19-2024 End: 11-19-2024 Telemedicine consultation with patient 11/19/2024 9:00 AM EDT Telemedicine [facility] [address] [place] [phone] Anuja Buckley MD [address] 5th [place] [address] [facility] Start: 11-13-2024 End: 11-13-2024 Follow-up encounter 11/13/2024 10:30 AM EDT Follow-Up [facility] [address] [facility] Medical Office Building, 5th [place] [address] Jakub Oglesby MD [address] [facility] [address] [place] [address] [facility] Start: 11-12-2024 End: 11-12-2024 Patient encounter procedure 11/12/2024 10:00 AM EDT Office Visit [facility] [address] [place] [address] Kaushal Avitia, ASSEMBLY STOCK SUPERVISOR-OPERATIONS AND MAINTENANCE SPECIALIST [address] [place] [address] [facility] Start: 11-01-2024 End: 11-01-2024 Patient encounter procedure 11/01/2024 10:00 AM EDT Office Visit [facility] [address] [place] [phone] Danny Torres Jr., DPM [address] [place] [address] [facility] Start: 10-12-2024 Diabetes mellitus screening Diabetes Screening [facility] Start: 10-08-2024 End: 10-08-2024 Telemedicine consultation with patient 10/08/2024 1:15 PM EST Telemedicine [facility] [address] [facility] [place] [phone] Anuja Buckley MD [address] [place] [address] [facility] Start: 09-24-2024 End: 09-24-2024 Telemedicine consultation with patient 09/24/2024 2:30 PM EST Telemedicine [facility] [address] [facility] 5th Floor, [address] [place] [address] Celina Esquivel PA-C [address] [place] [phone] [facility] Start: 08-26-2024 End: 08-26-2025 XR Thoracic and lumbar spine Views for scoliosis XR SPINE SCOLIOSIS 2-3 VIEWS Imaging Routine S/P cervical spinal fusion Expected: 08/26/2024, Expires: 08/26/2025 [facility] Comment on above: Expected: 08/26/2024, Expires: Start: 08-26-2024 End: 08-26-2024 Patient encounter procedure [facility] Start: 08-19-2024 End: 08-19-2024 Patient encounter procedure 08/19/2024 10:30 AM EST Office Visit [facility] [address] [facility] [place] [phone] Anuja Buckley MD [address] [place] [phone] [facility] Start: 08-16-2024 Thyroid stimulating hormone measurement [facility] Start: 08-02-2024 End: 08-02-2024 Patient encounter procedure 08/02/2024 10:00 AM EST Office Visit [facility] [address] [place] [phone] Danny Torres Jr., DPM [address] [place] [address] [facility] Start: 08-01-2024 End: 08-01-2024 Patient encounter procedure 08/01/2024 10:00 AM EST Office Visit [facility] [address] [place] [address] Lemuel Sommer II, OD [address] [place] [address] 8 month follow up/[employer] [facility] Comment on above: 8 month follow up/[employer] Start: 06-24-2024 End: 06-24-2024 Patient encounter procedure 06/24/2024 10:00 AM EST Office Visit [facility] [address] [facility] [address] [place] [address] Anthony Munguia, DO [address] [facility] [address] [facility] Start: 06-10-2024 End: 06-10-2025 25-hydroxyvitamin D3 [Mass/volume] in Serum or Plasma Vitamin D 25-Hydroxy,Total (for eval of Vitamin D levels) Lab Routine Vitamin D deficiency Expected: 06/10/2024 (Approximate), Expires: 06/10/2025 [facility] Work Phone: Comment on above: Expected: 06/10/2024 (Approximate), Expi res: 06/10/2025 Start: 06-10-2024 End: 06-10-2025 Cobalamin (Vitamin B12) [Mass/volume] in Serum or Plasma Vitamin B12 Lab Routine B12 deficiency Expected: 06/10/2024 (Approximate), Expires: 06/10/2025 [facility] Service [facility] Work Phone: Comment on above: Expected: 06/10/2024 (Approximate), Expi res: 06/10/2025 Start: 06-10-2024 End: 06-10-2025 Comprehensive metabolic 2000 panel - Serum or Plasma Comprehensive Metabolic Panel Lab Routine Primary hypertension Expected: 06/10/2024 (Approximate), Expires: 06/10/2025 [facility] Work Phone: Comment on above: Expected: 06/10/2024 (Approximate), Expi res: 06/10/2025 Start: 06-10-2024 End: 06-10-2025 Hemoglobin A1c/Hemoglobin.total in Blood Hemoglobin A1C Lab Routine Screening for diabetes mellitus Elevated blood sugar Expected: 06/10/2024 (Approximate), Expires: 06/10/2025 [facility] Work Phone: Comment on above: Expected: 06/10/2024 (Approximate), Expi res: 06/10/2025 Start: 06-10-2024 End: 06-10-2025 Lipid 1996 panel - Serum or Plasma Lipid Panel Lab Routine Mixed hyperlipidemia Expected: 06/10/2024 (Approximate), Expires: 06/10/2025 [facility] Work Phone: Comment on above: Expected: 06/10/2024 (Approximate), Expi res: 06/10/2025 Start: 06-10-2024 End: 06-10-2024 Patient encounter procedure 06/10/2024 1:20 PM EDT Office Visit [facility] [address] [facility] [address] [place] [address] Anthony Munguia L, DO [address] [facility] [address] [facility] Start: 06-02-2024 Thyroid stimulating hormone measurement TSH Level [facility] Start: 05-30-2024 End: 05-30-2024 Patient encounter procedure 05/30/2024 12:00 PM EDT Office Visit [facility] [address] [place] [address] aKushal Avitia, ASSEMBLY STOCK SUPERVISOR-OPERATIONS AND MAINTENANCE SPECIALIST [address] [place] [address] [facility] Start: 2024 Advance Directive Discussion Advance Directive Discussion [facility] Start: 2024 Fall risk assessment Falls Risk Assessment [facility] Start: 2024 Pneumococcal vaccination PNEUMOCOCCAL VACCINE SERIES (2 of 2 - PCV) [facility] Start: 2024 Pneumococcal Vaccine: 65+ (2 of 2 - PCV) Pneumococcal Vaccine: 65+ (2 of 2 - PCV) [facility] Start: 2024 Pneumococcal Vaccine: 65+ Years (2 - PCV) Pneumococcal Vaccine: 65+ Years (2 - PCV) [facility] Start: 2024 Pneumococcal Vaccine: 65+ Years (2 of 2 - PCV) Pneumococcal Vaccine: 65+ Years (2 of 2 - PCV) [facility] Start: 05-01-2024 End: 05-01-2024 Patient encounter procedure 05/01/2024 10:00 AM EDT Office Visit [facility] Podiatry [address] [place] [address] Danny Torres Jr., DPM [address] [place] [address] [facility] Start: 04-23-2024 End: 04-23-2024 Patient encounter procedure 04/23/2024 9:45 AM EDT Office Visit [facility] [address] [place] [phone] Anuja Buckley MD [address] [place] [phone] [facility] Start: 04-14-2024 COVID-19 Vaccine ( season) COVID-19 Vaccine ( season) [facility] Start: 04-14-2024 COVID-19 Vaccine ( season) COVID-19 Vaccine ( season) [facility] Start: 04-14-2024 COVID-19 VACCINE ( season) COVID-19 VACCINE ( season) [facility] Start: 04-14-2024 Influenza vaccination INFLUENZA VACCINE (#1) [facility] Start: 04-03-2024 End: 04-03-2024 Patient encounter procedure 04/03/2024 1:30 PM EDT Office Visit [address] [place] [address] Shashank Padilla MD [address] [place] [address] [facility] Start: 02-19-2024 End: 02-19-2024 Patient encounter procedure 02/19/2024 11:15 AM EDT Office Visit [facility] [address] [place] [phone] Anuja Buckley MD [address] [place] [address] [facility] Start: 01-24-2024 End: 01-24-2024 Patient encounter procedure 01/24/2024 10:45 AM EDT Office Visit [address] [phone] Shashank Padilla MD [address] [place] [address] [facility] Start: 01-18-2024 End: 01-18-2024 Patient encounter procedure 01/18/2024 1:00 PM EDT Office Visit [facility] Special[facility] [address]th [place] [address] Kaushal Avitia, ASSEMBLY STOCK SUPERVISOR-OPERATIONS AND MAINTENANCE SPECIALIST [address] [place] [phone] Neu[facility] Specialty [facility] Start: 11-21-2023 End: 11-21-2023 Patient encounter procedure 11/21/2023 1:00 PM EDT Office Visit [facility] [address] [place] [address] Kaushal Avitia, ASSEMBLY STOCK SUPERVISOR-OPERATIONS AND MAINTENANCE SPECIALIST [address] [place] [phone] [facility] Start: 11-20-2023 End: 11-20-2023 Telemedicine consultation with patient 11/20/2023 9:45 AM EDT Telemedicine [facility] [address] [place] [phone] Anuja Buckley MD [address] [place] [address] [facility] Start: 10-18-2023 End: 10-18-2023 Patient encounter procedure 10/18/2023 1:00 PM EST Office Visit [facility] [address] [place] [address] [facility] Start: 09-18-2023 End: 09-18-2023 Telemedicine consultation with patient 09/18/2023 9:45 AM EST Telemedicine [facility] [address] [place] [phone] Anuja Buckley MD [address] [place] [address] [facility] Start: 09-08-2023 End: 09-08-2023 Patient encounter procedure 09/08/2023 10:20 AM EST Office Visit [facility] [address] [place] [address] Kaushal Avitia, ASSEMBLY STOCK SUPERVISOR-OPERATIONS AND MAINTENANCE SPECIALIST [address] [place] [address] [facility] Start: 09-05-2023 End: 09-05-2023 Patient encounter procedure [facility] Start: 09-04-2023 End: 09-04-2023 Patient encounter procedure 09/04/2023 10:30 AM EST Office Visit [facility] [address] [facility] [address] [place] [address] Celina Esquivel PAC [address] [place] [address] [facility] Start: 08-30-2023 End: 08-30-2023 Admission to same day surgery center 08/30/2023 11:30 AM EST - 08/30/2023 3:10 PM EST Surgery [facility] [address] [place] [address] Ulises Li MD [address] [place] [phone] INSERTION NEUROSTIMULATOR ELECTRODE & GENERATOR CRANIAL NERVE (EG VAGUS) INCISIONAL [facility] Comment on above: INSERTION NEUROSTIMULATOR ELECTRODE & GE NERATOR CRANIAL NERVE (EG VAGUS) [facility] Start: 08-30-2023 End: 08-30-2023 Fluoroscopic guidance needle placement add on GUIDANCE FLUOROSCOPIC NEEDLE PLACEMENT ADD-ON PX Seizures 08/30/2023 11:30 AM EST [facility] Start: 08-30-2023 End: 08-30-2023 Inc impltj crnl nrv nstim eltrds & pulse gener INSERTION NEUROSTIMULATOR ELECTRODE & GENERATOR CRANIAL NERVE (EG VAGUS) OPEN Seizures 08/30/2023 11:30 AM EST [facility] Start: 08-30-2023 Subsequent hospital visit by physician 08/30/2023 11:30 AM EST Hospital Encounter [facility] [address] [place] [address] Ulises Li MD [address] [place] [address] Seizures [facility] Comment on above: Seizures Start: 07-24-2023 Diabetes screen Diabetes screen [facility] [place], [place] Start: 06-26-2023 End: 06-26-2023 Telemedicine consultation with patient 06/26/2023 9:45 AM EST Telemedicine [facility] [address] [place] [phone] Anuja Buckley MD [address] [place] [address] [facility] Start: 06-21-2023 End: 06-21-2023 Patient encounter procedure 06/21/2023 1:20 PM EST Office Visit [facility] [address] [place] [phone] Anthony Munguia DO [address] [facility] [place] [address] [facility] Start: 06-02-2023 End: 06-02-2023 Patient encounter procedure 06/02/2023 12:45 PM EDT Office Visit Neurology [facility] [address] [address] Nikki Hare MD [address] [address] Neurology [facility] Start: 04-14-2023 Influenza vaccination INFLUENZA VACCINE (#1) [facility] Start: 02-08-2023 FUV, Provider: Shashank Padilla II, Status: Pen, Time: 10:00 AM FUV, Provider: Shahsank Padilla II, Status: Pen, Time: 10:00 AM [id number]-Izlmhdao [facility] 232 DO Work Phone: Start: 01-25-2023 FUV, Provider: Shashank Padilla II, Status: Pen, Time: 9:45 AM FUV, Provider: Shashank Padilla II, Status: Pen, Time: 9:45 AM [id number]-Gzfhgap-Crjstap Work Phone: Start: 01-25-2023 Patient encounter procedure [facility] Start: 12-19-2022 Hepatitis B vaccination [facility] Start: 12-19-2022 Hepatitis B Vaccines (3 of 3 - 19+ 3-dose series) Hepatitis B Vaccines (3 of 3 - 19+ 3-dose series) [facility] Start: 11-17-2022 Thyroid stimulating hormone measurement TSH [facility] Start: 10-06-2022 NPV, Provider: Lucy Hahn, Status: Pen, Time: 10:00 AM NPV, Provider: Lucy Hahn, Status: Pen, Time: 10:00 AM MX-Middtax-Qrkkzzp Work Phone: Start: 10-06-2022 Patient encounter procedure [facility] Start: 09-29-2022 End: 09-29-2022 Telemedicine consultation with patient [facility] Start: 09-28-2022 End: 09-28-2022 Telemedicine consultation with patient 09/28/2022 Telemedicine [place] [address] [place] [phone] [facility] Start: 09-06-2022 End: 09-06-2022 Patient encounter procedure 09/06/2022 Office Visit Neurologic Surgery Carmelina Youngblood MD [address] [place] [address] [facility] Start: 09-06-2022 End: 09-06-2023 XR Thoracic and lumbar spine Views for scoliosis XR SPINE SCOLIOSIS 2/3 VIEWS Imaging Routine S/P cervical spinal fusion Neck pain Expected: 09/06/2022, Expires: 09/06/2023 [facility] Comment on above: Expected: 09/06/2022, Expires: Start: 09-01-2022 NPV, Provider: Lucy Hahn, Status: Pen, Time: 10:00 AM NPV, Provider: Lucy Hahn, Status: Pen, Time: 10:00 AM TA-[id number]-Nbdhiwr Work Phone: Start: 09-01-2022 Patient encounter procedure [facility] Start: 07-21-2022 Lipid screen Lipid screen [facility], [place] Start: 07-15-2022 NPV, Provider: Shashank Padilla II, Status: Pen, Time: 9:45 AM NPV, Provider: Shashank Padilla II, Status: Pen, Time: 9:45 AM [facility] Start: 06-29-2022 End: 06-29-2022 Telemedicine consultation with patient 06/29/2022 Telemedicine Multispecialty Anuja Buckley MD [address] [id number] [facility] Start: 06-23-2022 OTEVALADUL, Provider: Mindy Saucedo, Status: Pen, Time: 11:00 AM OTEVALADUL, Provider: Mindy Saucedo, Status: Pen, Time: 11:00 AM [facility] Work Phone: Start: 06-09-2022 End: 06-09-2022 Patient encounter procedure 06/09/2022 Office Visit Neurology Nikki Hare MD [address] [place] [address] [facility] Start: 05-22-2022 Screening for malignant neoplasm of colon [facility] Start: 05-02-2022 PTRSHEFALI, Provider: Roxana Braun, Status: Pen, Time: 9:30 AM PTRSHEFALI, Provider: Roxana Braun, Status: Pen, Time: 9:30 AM [facility] Start: 04-25-2022 PTFUADULT4, Provider: Maisha Baez, Status: Pen, Time: 9:15 AM PTFUADULT4, Provider: Maisha Baez, Status: Pen, Time: 9:15 AM [facility] Start: 04-20-2022 PTFUADULT4, Provider: Maisha Baez, Status: Pen, Time: 11:30 AM PTFUADULT4, Provider: Maisha Baez, Status: Pen, Time: 11:30 AM [facility] Start: 04-20-2022 End: 04-20-2022 Telemedicine consultation with patient 04/20/2022 Telemedicine Multispecialty Anuja Buckley MD [address] [place] [id number] [facility] Start: 04-14-2022 Influenza vaccination [facility] Start: 04-01-2022 PTFUADULT4, Provider: Marisol Dorado, Status: Pen, Time: 10:00 AM PTFUADULT4, Provider: Marisol Dorado, Status: Pen, Time: 10:00 AM [facility] Start: 04-01-2022 PTFUADULT4, Provider: Maisha Baez, Status: Pen, Time: 9:15 AM PTFUADULT4, Provider: Maisha Baez, Status: Pen, Time: 9:15 AM [facility]hab [facility] Work Phone: Start: 03-31-2022 COVID-19 VACCINE (5 - Booster for Moderna series) COVID-19 VACCINE (5 - Booster for Moderna series) [facility] Start: 03-28-2022 PTRECHECKA, Provider: Yolette Jack, Status: Pen, Time: 11:00 AM PTRECHECKAlden, Provider: Yolette Jack, Status: Pen, Time: 11:00 AM [facility] Work Phone: Start: 03-25-2022 PTFUADULT4, Provider: Marisol Dorado, Status: Pen, Time: 10:00 AM PTFUADULT4, Provider: Marisol Dorado, Status: Pen, Time: 10:00 AM [facility] Work [facility]: Start: 03-21-2022 PTFUADULT4, Provider: Maisha Baez, Status: Pen, Time: 10:45 AM PTFUADULT4, Provider: Maisha Baez, Status: Pen, Time: 10:45 AM [facility] Work Phone: Start: 03-18-2022 PTFUADULT4, Provider: Marisol Dorado, Status: Pen, Time: 10:00 AM PTFUADULT4, Provider: Marisol Dorado, Status: Pen, Time: 10:00 AM [facility] Work Phone: Start: 03-04-2022 Patient encounter procedure [facility] Rehab Start: 03-04-2022 PTFUADULT4, Provider: Marisol Dorado, Status: Pen, Time: 10:00 AM PTFUADULT4, Provider: Marisol Dorado, Status: Pen, Time: 10:00 AM [facility] Work Phone: Start: 03-04-2022 PTFUADULT4, Provider: Marisol Dorado, Status: Pen, Time: 7:00 AM PTFUADULT4, Provider: Marisol Dorado, Status: Pen, Time: 7:00 AM [facility] Work Phone: Start: 02-28-2022 Patient encounter procedure [facility] Rehab Start: 02-28-2022 PTRECHECKA, Provider: Yolette Jack, Status: Pen, Time: 11:30 AM PTRECHECKA, Provider: Yolette Jack, Status: Pen, Time: 11:30 AM [facility] Work Phone: Start: 02-25-2022 Patient encounter procedure [facility] Rehab Start: 02-25-2022 PTFUADULT4, Provider: Marisol Dorado, Status: Pen, Time: 10:00 AM PTFUADULT4, Provider: Marisol Dorado, Status: Pen, Time: 10:00 AM [facility] Work Phone: Start: 02-23-2022 PTFUADULT4, Provider: Maisha Baez, Status: Pen, Time: 10:00 AM PTFUADULT4, Provider: Maisha Baez, Status: Pen, Time: 10:00 AM [facility] Work Phone: Start: 02-21-2022 Patient encounter procedure [facility] Rehab Start: 02-21-2022 PTFUADULT4, Provider: Maisha Baez, Status: Pen, Time: 10:00 AM PTFUADULT4, Provider: Maisha Baez, Status: Pen, Time: 10:00 AM [facility] Work Phone: Start: 02-18-2022 Patient encounter procedure [facility] Rehab Start: 02-18-2022 PTFUADULT4, Provider: Marisol Dorado, Status: Pen, Time: 10:00 AM PTFUADULT4, Provider: Marisol Dorado, Status: Pen, Time: 10:00 AM [facility] Work Phone: Start: 02-16-2022 Patient encounter procedure [facility] Rehab Start: 02-16-2022 PTFUADULT4, Provider: Marisol Dorado, Status: Pen, Time: 7:00 AM PTFUADULT4, Provider: Marisol Dorado, Status: Pen, Time: 7:00 AM [facility] Work Phone: Start: 01-18-2022 End: 01-18-2022 Patient encounter procedure 01/18/2022 Office Visit Neurologic Surgery Carmelina Youngblood MD [address] [place], [place] [id number] [facility] Start: 12-27-2021 End: 12-27-2021 Telemedicine consultation with patient 12/27/2021 Telemedicine Neurology Nikki Hare MD [address] [place] [address] [facility] Start: 12-03-2021 PTFUADULT4, Provider: Maisha Baez, Status: Pen, Time: 9:15 AM PTFUADULT4, Provider: Maisha Baez, Status: Pen, Time: 9:15 AM [facility] Work Phone: Start: 12-01-2021 End: 12-01-2021 Telemedicine consultation with patient 12/01/2021 Telemedicine Multispecialty Anuja Buckley MD [address] [id number] [facility] Start: 11-29-2021 PTRECHECKAlden, Provider: Roxana Braun, Status: Pen, Time: 1:15 PM PTRECHELLIOTT, Provider: Roxana Braun, Status: Pen, Time: 1:15 PM [facility] Work Phone: Start: 11-26-2021 PTFUADULT4, Provider: Maisha Baez, Status: Pen, Time: 1:15 PM PTFUADULT4, Provider: Maisha Baez, Status: Pen, Time: 1:15 PM [facility] Work Phone: Start: 11-22-2021 PTFUADULT4, Provider: Maisha Baez, Status: Pen, Time: 1:15 PM PTFUADULT4, Provider: Maisha Baez, Status: Pen, Time: 1:15 PM [facility] Work Phone: Start: 11-19-2021 PTFUADULT4, Provider: Maisha Baez, Status: Pen, Time: 9:15 AM PTFUADULT4, Provider: Maisha Baez, Status: Pen, Time: 9:15 AM [facility] Work Phone: Start: 11-17-2021 End: 11-18-2022 Angiotensin converting enzyme [Enzymatic activity/volume] in Serum or Plasma [facility] Comment on above: Expected: 11/17/2021, Expires: 3 Start: 11-17-2021 End: 11-17-2022 COPPER [facility] Comment on above: Expected: 11/17/2021, Expires: 3 Start: 11-17-2021 End: 11-18-2022 MONOCLONAL PROT IMMUNO, SERUM [facility] Comment on above: Expected: 11/17/2021, Expires: 3 Start: 11-17-2021 End: 11-17-2022 MR Brain WO contrast MRI BRAIN WITHOUT CONTRAST Imaging Routine Acute focal neurological deficit Expected: 11/17/2021, Expires: 11/17/2022 [facility] Comment on above: Expected: 11/17/2021, Expires: 3 Start: 11-17-2021 End: 11-17-2022 MR Lumbar spine WO contrast MRI SPINE LUMBAR WITHOUT CONTRAST Imaging Routine Spinal stenosis, lumbosacral region Expected: 11/17/2021, Expires: 11/17/2022 [facility] Comment on above: Expected: 11/17/2021, Expires: 3 Start: 11-15-2021 PTFUADULT4, Provider: Maisha Baez, Status: Pen, Time: 2:00 PM PTFUADULT4, Provider: Maisha Baez, Status: Pen, Time: 2:00 PM [facility] Work Phone: Start: 11-12-2021 PTFUADULT4, Provider: Marisol Dorado, Status: Pen, Time: 10:00 AM PTFUADULT4, Provider: Marisol Dorado, Status: Dale, Time: 10:00 AM [facility] Work Phone: Start: 09-03-2021 Lipid panel Lipid screen [place], [place] Start: 07-26-2021 TSH Qn TSH testing [place], [place] Start: 02-15-2021 COVID-19 VACCINE (3 - Booster for Moderna series) COVID-19 VACCINE (3 - Booster for Moderna series) [facility] Start: 12-24-2020 End: 12-24-2020 Virtual Visit 12/24/2020 Virtual Visit Neurology Carmelo Lindsey MD [address], [address] [place] [address] [facility] Start: 11-13-2020 COVID-19 VACCINE (3 - Booster for Moderna series) COVID-19 VACCINE (3 - Booster for Moderna series) [facility] Start: 11-13-2020 COVID-19 VACCINE (3 - Moderna series) COVID-19 VACCINE (3 - Moderna series) [facility] Start: 11-10-2020 End: 11-10-2020 Office Visit 11/10/2020 Office Visit Primary Care Deobrah De La Vega, ASSEMBLY STOCK SUPERVISOR - OPERATIONS AND MAINTENANCE SPECIALIST [address] [place] [address] [phone] Start: 09-25-2020 End: 09-25-2020 Appointment 09/25/2020 Appointment Respiratory Therapy [facility] Respiratory Therapy Start: 09-24-2020 End: 09-24-2020 Appointment 09/24/2020 Appointment IP Unit [facility] Wound Care Start: 09-17-2020 End: 09-17-2020 Office Visit 09/17/2020 Office Visit Neurology Carmelo Lindsey MD [address], [address] [place] [address] [facility] Start: 09-03-2020 End: 09-03-2020 Appointment 09/03/2020 Appointment IP Unit [facility] Start: 08-20-2020 End: 08-20-2020 Office Visit 08/20/2020 Office Visit General Surgery Laya Rodriges MD [address] [place] [address] [phone] [facility] Start: 08-03-2020 End: 08-03-2020 Office Visit 08/03/2020 Office Visit Neurology Carmelo Lindsey MD [address], [address] [place], [place] [id number] [facility] Start: 04-14-2020 Influenza vaccination given [facility] Start: 08-16-2019 DIABETES SCREEN DIABETES SCREEN [facility] Start: 07-09-2019 End: 07-09-2019 Office Visit 07/09/2019 Office Visit Neurology Carmelo Lindsey MD [address], [address] [place] [address] [phone] [facility] Start: 06-04-2019 End: 06-04-2019 Office Visit 06/04/2019 Office Visit Carmelo Linda MD [address], [address] [place] [address] [phone] [facility] Start: 2019 Respiratory Syncytial Virus Immunization: Risk, 60-74 Risk, or 75+ (1 - Risk 60-74 years 1-dose series) Respiratory Syncytial Virus Immunization: Risk, 60-74 Risk, or 75+ (1 - Risk 60-74 years 1-dose series) [facility] Start: 2019 RSV High Risk: (Elderly (60+) or Population) (1 - Risk 60-74 years 1-dose series) RSV High Risk: (Elderly (60+) or Population) (1 - Risk 60-74 years 1-dose series) [facility] Start: 2019 RSV patients and/or patients aged 60+ years (1 - 1-dose 60+ series) RSV patients and/or patients aged 60+ years (1 - 1-dose 60+ series) [facility] Start: 2019 RSV Vaccine (1 - 1-dose 60+ series) RSV Vaccine (1 - 1-dose 60+ series) [facility] Start: 2019 RSV Vaccines (1 - Risk 60-74 years 1-dose series) RSV Vaccines (1 - Risk 60-74 years 1-dose series) [facility] Start: 04-14-2019 Influenza vaccination Flu vaccine (#1) [place], [place] Start: 01-30-2019 Annual Wellness Visit (AWV) Annual Wellness Visit (AWV) [place], [place] Start: 07-21-2018 Lipid panel Lipid screen [place] Start: 07-21-2018 Lipid screen Lip[place] Start: 07-21-2018 TSH Qn TSH testing [place] Start: 07-21-2018 TSH testing [place] Start: 03-08-2017 Diabetes screen Diabetes screen [place] Start: 2014 PROSTATE CANCER SCREENING DISCUSSION PROSTATE CANCER SCREENING DISCUSSION [facility] Start: 2014 Prostate specific antigen measurement PROSTATE CANCER SCREENING DISCUSSION [facility] Start: 02-12-2012 Screening for malignant neoplasm of colon Colon Cancer Screen FIT/FOBT [place], [place] Start: 07-27-2009 MMR Vaccines (1 of 1 - Standard series) MMR Vaccines (1 of 1 - Standard series) [facility] Start: 2009 Administration of herpes zoster vaccine Zoster Vaccines (1 of 2) [facility] Start: 2009 Colon cancer screen colonoscopy Colon cancer screen colonoscopy [place], [place] Start: 2009 Pneumococcal vaccination PNEUMOCOCCAL VACCINE SERIES (2 of 2 - PCV) [facility] Start: 2009 Pneumococcal Vaccine: 50+ Years (2 of 2 - PCV) Pneumococcal Vaccine: 50+ Years (2 of 2 - PCV) [facility] Start: 2009 Pneumococcal Vaccine: Age 50+ (2 of 2 - PCV) Pneumococcal Vaccine: Age 50+ (2 of 2 - PCV) [facility] Start: 2009 Pneumococcal Vaccine: Age 65+ (2 of 2 - PCV) Pneumococcal Vaccine: Age 65+ (2 of 2 - PCV) [facility] Start: 2009 Prostate specific antigen measurement PROSTATE CANCER SCREENING DISCUSSION [facility] Start: 2009 RSV Vaccines (1 - Risk 50-74 years 1-dose series) RSV Vaccines (1 - Risk 50-74 years 1-dose series) [facility] Start: 2009 Screening for malignant neoplasm of colon Flexible sigmoidoscopy [facility] Start: 2009 Shingles Vaccine (1 of 2) Shingles Vaccine (1 of 2) [place] Start: 2009 SHINGRIX VACCINE (1 of 2) SHINGRIX VACCINE (1 of 2) [facility] Start: 2009 Zoster vaccine hzv live for subcutaneous use ZOSTER (SHINGLES) VACCINE (1 of 2) [facility] Start: 2009 Zoster Vaccines (1 of 2) Zoster Vaccines (1 of 2) [facility] Start: 2004 COLOGUARD (FIT-DNA) COLOGUARD (FIT-DNA) [facility] Start: 2004 Colonoscopy [facility] Start: 2004 COLORECTAL CANCER SCREENING COLORECTAL CANCER SCREENING [facility] Start: [address] COLONOGRAPHY [facility] Start: 2004 FECAL OCCULT BLOOD FECAL OCCULT BLOOD [facility] Start: 2004 Screening for malignant neoplasm of colon [facility] Start: 2004 SIGMOIDOSCOPY SIGMOIDOSCOPY [facility] Start: 1999 Fasting lipid profile LIPID SCREENING [facility] Start: 1999 Lipid panel LIPID SCREENING [facility] Start: 1994 LIPID SCREEN LIPID SCREEN [facility] Start: 1978 Urine microalbumin profile DTAP,TDAP,TD (1 - Tdap) [facility] Start: 1977 ANNUAL PCP TEAM CHRONIC DISEASE VISIT ANNUAL PCP TEAM CHRONIC DISEASE VISIT [facility] Start: 1977 BP CONTROLLED (<130/80) BP CONTROLLED (<130/80) [facility] Start: 1977 Hepatitis C antibody, confirmatory test Hepatitis C Screening [facility] Start: 1977 HEPATITIS C SCREENING HEPATITIS C SCREENING [facility] Start: 1977 Hepatitis C screening Hepatitis C Screening [facility] Start: 1977 HIV SCREENING HIV SCREENING [facility] Start: 1977 HIV screening HIV Screening [facility] Start: 1974 HIV screen HIV screen [facility] Start: 1974 HIV screening [facility] Start: 1971 Depression screening using PHQ-9 (Patient Health Questionnaire 9) score [facility] Start: 1962 History and physical examination, annual for health maintenance Wellness Visit [facility] Start: 1962 Medicare Wellness Visit Medicare Wellness Visit [facility] Start: 1960 [id number] vaccination MMR Vaccines (1 of 1 - Standard series) [facility] Start: 1959 Annual wellness visit Medicare Initial Physical (IPPE) [facility] Start: 1959 Hepatitis C antibody, confirmatory test [facility] Start: 1959 Hepatitis C screening HEPATITIS C VIRUS SCREENING [facility] Start: 1959 HIV screening HIV Screening [facility] Start: 1959 Medicare Annual Wellness Visit Medicare Annual Wellness Visit (AWV) [facility] Start: 1959 Prostate specific antigen measurement PSA Level [facility] Start: 1959 Screening for malignant neoplasm of colon [facility] Start: 1959 Tetanus vaccination Tetanus: Every 10yrs [facility] End: 10-09-2025 CBC panel - Blood by Automated count CBC Lab Routine Refractory epilepsy (HCC) Hypertension goal BP (blood pressure) < 140/90 1 Occurrences starting 10/09/2024 until 10/09/2025 [facility] Comment on above: 1 Occurrences starting 10/09/2024 until 10/09/2025 End: 04-22-2019 Clonazepam Level Clonazepam Level Lab Routine Partial symptomatic epilepsy with complex partial seizures, intractable, 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 1 Occurrences starting 04/22/2019 until 04/22/2019 [facility] Comment on above: 1 Occurrences starting 04/22/2019 until 04/22/2019 Clonazepam Level Clonazepam Leve l Lab Routine Partial symptomatic epilepsy with complex partial seizures, intractable, 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 04/22/2019 12:18 PM EDT [facility] flx dx w/collj spec when pfrmd COLONOSCOPY Rectal bleeding [facility] End: 10-09-2025 Comprehensive metabolic 2000 panel - Serum or Plasma Comprehensive Metabolic Panel Lab Routine Hypertension goal BP (blood pressure) < 140/90 1 Occurrences starting 10/09/2024 until 10/09/2025 [facility] Comment on above: 1 Occurrences starting 10/09/2024 until 10/09/2025 End: 12-17-2025 Comprehensive metabolic 2000 panel - Serum or Plasma Comprehensive Metabolic Panel Lab Routine Refractory epilepsy (HCC) Hypertension goal BP (blood pressure) < 140/90 Healthcare maintenance 1 Occurrences starting 12/17/2024 until 12/17/2025 [facility] Comment on above: 1 Occurrences starting 12/17/2024 until 12/17/2025 CPAP CPAP Respiratory Care Routine Every 4hr until discontinued starting 05/13/2019 [facility] Comment on above: Every 4hr until discontinued starting CT of head without contrast CT Head Or Brain Without Contrast Imaging KEKE 03/24/2020 3:49 PM EDT [facility] Doppler ultrasonogra phy of artery of lower limb Segmental Doppler Lower Extremity Arterial Vascular Ultrasound Routine Peripheral vascular disease, unspecified (HCC) Ordered: 01/31/2024 [facility] Work Phone: Comment on above: Ordered: 01/31/2024 Ecg routine ecg w/le ast 12 lds w/i&r NE ELECTROCARDIOGRAM, COMPLETE NE - OFFICE PERFORMED Routine Preop exam for internal medicine Generalized idiopathic epilepsy and epileptic syndromes, intractable, without status epilepticus Obstructive sleep apnea syndrome Hypothyroidism, unspecified type Hyperlipidemia, unspecified hyperlipidemia type Essential hypertension Development delay Intellectual disability Abnormal involuntary movement Gastroesophageal reflux disease without esophagitis Prediabetes Ordered: 08/16/2023 [facility] Comment on above: Ordered: 08/16/2023 EEG, ROUTINE EEG, ROUTINE Chito rology Routine Seizure disorder Ordered: 04/05/2023 [facility] Comment on above: Ordered: 04/05/2023 Elec jean implt cplx cn npgt prgrmg NE ELEC JEAN IMPLT CPLX CN NPGT PRGRMG NE Charge Routine Generalized idiopathic epilepsy and epileptic syndromes, intractable, without status epilepticus Encounter for adjustment and management of neurostimulator Ordered: 06/27/2024 [facility] Comment on above: Ordered: 06/27/2024 Elec jean implt npgt phys/qhp w/o programming NE ELEC JEAN IMPLT NPGT PHYS/QHP W/O PROGRAMMING NE Charge Routine Generalized idiopathic epilepsy and epileptic syndromes, intractable, without status epilepticus Ordered: 11/12/2024 [facility] Comment on above: Ordered: 11/12/2024 Elec jean implt smpl cn npgt prgrmg NE ELEC JEAN IMPLT SMPL CN NPGT PRGRMG NE Charge Routine Focal epilepsy Encounter for adjustment and management of neurostimulator Ordered: 10/12/2023 [facility] Comment on above: Ordered: 10/12/2023 Elec jean implt smpl cn npgt prgrmg NE ELEC JEAN IMPLT SMPL CN NPGT PRGRMG NE Charge Routine Generalized idiopathic epilepsy and epileptic syndromes, intractable, without status epilepticus Encounter for adjustment and management of neurostimulator Ordered: 11/16/2023 [facility] Comment on above: Ordered: 11/16/2023 Elec jean implt smpl cn npgt prgrmg NE ELEC JEAN IMPLT SMPL CN NPGT PRGRMG NE Charge Routine Generalized idiopathic epilepsy and epileptic syndromes, intractable, without status epilepticus Encounter for adjustment and management of neurostimulator Ordered: 12/15/2023 [facility] Comment on above: Ordered: 12/15/2023 Elec jean implt smpl cn npgt prgrmg NE ELEC JEAN IMPLT SMPL CN NPGT PRGRMG NE Charge Routine Generalized idiopathic epilepsy and epileptic syndromes, intractable, without status epilepticus S/P placement of VNS (vagus nerve stimulation) device Encounter for adjustment and management of neurostimulator Ordered: 02/22/2024 [facility] Comment on above: Ordered: 02/22/2024 Elec jean implt smpl cn npgt prgrmg NE ELEC JEAN IMPLT SMPL CN NPGT PRGRMG NE Charge Routine Generalized idiopathic epilepsy and epileptic syndromes, intractable, without status epilepticus Encounter for adjustment and management of neurostimulator Ordered: 06/29/2024 [facility] Comment on above: Ordered: 06/29/2024 Elec jean implt smpl cn npgt prgrmg NE ELEC JEAN IMPLT SMPL CN NPGT PRGRMG NE Charge Routine Seizure disorder S/P placement of VNS (vagus nerve stimulation) device Ordered: 05/08/2025 [facility] Comment on above: Ordered: 05/08/2025 Fluoroscopic guidanc e needle placement add on GUIDANCE FLUOROSCOPIC NEEDLE PLACEMENT ADD-ON PX Seizures [facility] End: 08-30-2023 GUIDANCE FLUOROSCOPIC NEEDLE PLACEMENT GUIDANCE FLUOROSCOPIC NEEDLE PLACEMENT Imaging Routine Seizures One Time for 1 Occurrences starting 08/30/2023 until 08/30/2023 [facility] Comment on above: One Time for 1 Occurrences starting 08/14 until 08/30/2023 End: 10-09-2025 Hemoglobin A1c/Hemoglobin.total in Blood Hemoglobin A1c Lab Routine Refractory epilepsy (HCC) Abnormal finding of blood chemistry, unspecified 1 Occurrences starting 10/09/2024 until 10/09/2025 [facility] Work Phone: Comment on above: 1 Occurrences starting 10/09/2024 until 10/09/2025 End: 12-17-2025 Hepatitis C Ab with Reflex to HCV Virus Quantitation Hepatitis C Ab with Reflex to HCV Virus Quantitation Lab Routine Healthcare maintenance Need for hepatitis C screening test 1 Occurrences starting 12/17/2024 until 12/17/2025 [facility] Comment on above: 1 Occurrences starting 12/17/2024 until 12/17/2025 Home BIPAP or CPAP Home BIPAP or CPAP Respiratory Care Routine Daily until discontinued starting 07/22/2020 [facility] [place] Comment on above: Daily until discontinued starting 2019 End: 12-17-2025 Human immunodeficiency virus antibody test HIV 1/2 Screen (4th Generation) Lab Routine Healthcare maintenance Screening for HIV (human immunodeficiency virus) 1 Occurrences starting 12/17/2024 until 12/17/2025 [facility] Comment on above: 1 Occurrences starting 12/17/2024 until 12/17/2025 Inc impltj crnl nrv nstim eltrds & pulse gener INSERTION NEUROSTIMULATOR ELECTRODE & GENERATOR CRANIAL NERVE (EG VAGUS) OPEN Seizures [facility] Initiate Oxygen Ther apy Protocol Initiate Oxygen Therapy Protocol Respiratory Care Routine Daily until discontinued starting 05/13/2019 [facility] Comment on above: Daily until discontinued starting 2018 End: 05-14-2024 Lacosamide [Mass/volume] in Serum or Plasma [facility] Work Phone: Comment on above: Once (Lab) for 1 Occurrences starting until 05/14/2024 End: 05-14-2024 levETIRAcetam [Mass/volume] in Serum or Plasma [facility] [place] Service Area Work Phone: Comment on above: STAT (Lab) for 1 Occurrences starting until 05/14/2024 End: 09-18-2020 Levetiracetam Level Levetiracetam Level Lab Routine Generalized convulsive epilepsy with intractable epilepsy 1 Occurrences starting 09/18/2020 until 09/18/2020 [email or web address] Comment on above: 1 Occurrences starting 09/18/2020 until 09/18/2020 Levetiracetam Level Levetiraceta m Level Lab Routine Generalized convulsive epilepsy with intractable epilepsy 09/18/2020 12:29 PM EST Benita Güdpod SAADIA PUENTE End: 10-09-2025 Lipid 1996 panel - Serum or Plasma Lipid Panel Lab Routine Hyperlipidemia LDL goal <100 1 Occurrences starting 10/09/2024 until 10/09/2025 [facility] Comment on above: 1 Occurrences starting 10/09/2024 until 10/09/2025 End: 09-20-2024 MR Cervical spine WO contrast [facility] Work Phone: Comment on above: 1 Occurrences starting 09/20/2024 until 09/20/2024 End: 01-13-2021 MRI of lumbar spine without contrast MR Lumbar Spine Without Contrast Imaging Routine History of fall 1 Occurrences starting 01/13/2020 until 01/13/2021 [facility] Comment on above: 1 Occurrences starting 01/13/2020 until 01/13/2021 Oxygen therapy [[facility] [place] [facility]] Initiate Oxygen Therapy Protocol Respiratory Care Routine Daily until discontinued starting 07/22/2020 [facility] Comment on above: Daily until discontinued starting 2019 End: 09-18-2020 Phenobarbital Level Phenobarbital Level Lab Routine Generalized convulsive epilepsy with intractable epilepsy 1 Occurrences starting 09/18/2020 until 09/18/2020 [facility] SAADAI Comment on above: 1 Occurrences starting 09/18/2020 until 09/18/2020 Phenobarbital Level Phenobarbita l Level Lab Routine Generalized convulsive epilepsy with intractable epilepsy 09/18/2020 12:29 PM EST [facility] SAADIA End: 09-18-2020 Phenytoin Level, Total Phenytoin Level, Total Lab Routine Once for 1 Occurrences starting 09/18/2020 until 09/18/2020 [facility] SAADIA Comment on above: Once for 1 Occurrences starting 09/18/19 until 09/18/2020 End: 09-18-2020 Phenytoin Level, Total And Free Phenytoin Level, Total And Free Lab Routine Generalized convulsive epilepsy with intractable epilepsy 1 Occurrences starting 09/18/2020 until 09/18/2020 [facility] SAADIA Comment on above: 1 Occurrences starting 09/18/2020 until 09/18/2020 End: 12-17-2025 Prostate specific Ag [Mass/volume] in Serum or Plasma PSA, Screen Lab Routine Healthcare maintenance Screening for malignant neoplasm of prostate 1 Occurrences starting 12/17/2024 until 12/17/2025 [facility] Comment on above: 1 Occurrences starting 12/17/2024 until 12/17/2025 End: 12-11-2024 Standard ECG ECG ECG Routine One Time for 1 Occurrences starting 12/11/2024 until 12/11/2024 [facility] Comment on above: One Time for 1 Occurrences starting 11/14 until 12/11/2024 End: 12-17-2025 T-Spot TB Screen T-Spot TB Screen Lab Routine Healthcare maintenance Tuberculosis screening 1 Occurrences starting 12/17/2024 until 12/17/2025 [facility] Work Phone: Comment on above: 1 Occurrences starting 12/17/2024 until 12/17/2025 T-Spot TB Screen T-Spot TB Scree n Lab Routine Healthcare maintenance Tuberculosis screening 12/17/2024 11:26 AM EDT [facility] End: 10-09-2025 Thyrotropin [Units/volume] in Serum or Plasma TSH with Reflex Free T4 Lab Routine Hypertension goal BP (blood pressure) < 140/90 Acquired hypothyroidism 1 Occurrences starting 10/09/2024 until 10/09/2025 [facility] Comment on above: 1 Occurrences starting 10/09/2024 until 10/09/2025 Transfuse erythrocyt es [Vol] Transfuse RBC Nursing Transfusion Routine 07/29/2020 1:09 PM [facility] [place] End: 08-30-2023 XR Cervical and thoracic and lumbar spine Views [facility] Comment on above: One Time for 1 Occurrences starting 08/14 until 08/30/2023 [facility] Immunizations Immunization Date Immunization Notes Care Provider Efren stanton 06-04-2024 influenza virus vaccine, unspecified formulation Nidia Crain MD MPH Work Phone: [facility] Work Phone: 06-01-2023 zoster vaccine recombinant Mahamed Daron DO Work Phone: [facility] 05-31-2023 influenza, injectabl e, quadrivalent, preservative free Mahamed Daron DO Work Phone: [facility] 05-31-2023 influenza virus vaccine, unspecified formulation Kaushal Avitia [employer] SUPERVISOR[employer]OPERATIONS AND MAINTENANCE SPECIALIST Work Phone: [facility] 12-26-2022 hepatitis A vaccine, adult dosage Mahamed Daron DO Work Phone: [facility] 08-16-2022 zoster vaccine recombinant Mahamed Daron DO Work Phone: [facility] 07-27-2022 hepatitis B vaccine, adult dosage Mahamed Daron DO Work Phone: [facility] 06-21-2022 hepatitis B vaccine, adult dosage Mahamed Daron DO Work Phone: [facility] 06-20-2022 hepatitis A vaccine, adult dosage Mahamed Daron DO Work Phone: [facility] 06-13-2022 zoster vaccine recombinant Mahamed Daron DO Work Phone: [facility] 06-02-2022 Influenza, injectabl e, Madin Yahaira Canine Kidney, preservative free, quadrivalent Mahamed Daron DO Work Phone: [facility] 12-01-2021 tetanus toxoid, redu lela diphtheria toxoid, and acellular pertussis vaccine, adsorbed Text Entry Free [facility] 09-14-2021 influenza, injectabl e, quadrivalent, preservative free Mahamed Daron DO Work Phone: [facility] 05-11-2021 tetanus toxoid, redu lela diphtheria toxoid, and acellular pertussis vaccine, adsorbed Nikki Hare MD Work Phone: [facility] 09-18-2020 COVID-19 vaccine, mR NA, Moderna 0.5 ML Nikki Hare MD Work Phone: [facility] 08-21-2020 COVID-19 vaccine, mR NA, Moderna 0.5 ML Nikki Hare MD Work Phone: [facility] 05-11-2020 influenza, injectabl e, quadrivalent, preservative free Mal Raji [facility] [place] 05-11-2020 influenza virus vaccine, unspecified formulation Nikki Hare MD Work Phone: [facility] 05-14-2019 influenza, injectabl e, quadrivalent, preservative free [facility], [place] 05-14-2019 influenza quadrivale nt split vaccine (FLUZONE;FLUARIX;FLULAV AL;AFLURIA) injection 0.5 mL [facility] 10-29-2015 tetanus toxoid, redu lela diphtheria toxoid, and acellular pertussis vaccine, adsorbed Deborah De La Vega [facility], [place] 05-03-2011 influenza virus vaccine, unspecified formulation Nikki Hare MD Work Phone: [facility] 05-03-2011 influenza, seasonal, injectable Nikki Hare MD Work Phone: [facility] 06-29-2009 novel [id number], preservative-free, injectable Nikki Hare MD Work Phone: [facility] 08-22-2005 tetanus and diphther ia toxoids, adsorbed, preservative free, for adult use (5 Lf of tetanus toxoid and 2 Lf of diphtheria toxoid) Nikki Hare MD Work Phone: [facility] 09-27-2004 pneumococcal polysaccharide vaccine, 23 valent Nikki Hare MD Work Phone: [facility] 03-11-2003 TD(adult) unspecifie d formulation Nikki Hare MD Work Phone: [facility] Payers Date Payer Category Payer Unknown 2018 Medicare xxxxxxxxx [id number] 2018 Medicare 2018 Medicare (Managed Care) 1.2. [id number] 2018 Medicare PPO [employer] CHOICE PPO [id number] 2018 Medicare [id number] 2017 Medicaid xxxxxxxxxxxx [id number] 2016 Medicaid 2016 Medicaid [id number] 2.16.840.1.265544.3.249.13 1987 Medicare [id number] 2.16.840.1.598594.3.249.13 1987 Medicare xxxxxxxxxxx [id number]. [id number] 1987 Medicare [id number] 1959 Unknown [id number] 2.16.840.1.201007.3.579.2. 903 1959 Unknown [id number] 2.16.840.1.973022.3.579.2. 903 1959 Unknown [id number] 2.16.840.1.336459.3.579.2. 175 1959 Unknown [id number] 2.16.840.1.565247.3.579.2. 175 1959 Unknown [id number] 2.16.840.1.632089.3.579.2. 175 1959 Unknown [id number] 2.16.840.1.336938.3.579.2. 196 1959 Unknown [id number] 2.16.840.1.121711.3.579.2. 594 1959 Unknown [id number] 2.16.840.1.483667.3.579.2. 903 1959 Unknown [id number] 2.16.840.1.812032.3.579.2. 903 1959 Unknown [id number] 2.16.840.1.268669.3.579.2. 754 1959 Unknown [id number] 2.16.840.1.709405.3.579.2. 754 1959 Unknown [id number] 2.16.840.1.355738.3.579.2. 754 1959 Unknown [id number] 2.16.840.1.065246.3.579.2. 754 1959 Unknown [id number] 2.16.840.1.306316.3.579.2. 754 1959 Unknown [id number] 2.16.840.1.881224.3.579.2. 1959 Unknown [id number] 2.16.840.1.783378.3.579.2. 1959 Unknown [id number] 2.16.840.1.854941.3.579.2. 1959 Unknown [id number] 2.16.840.1.976024.3.579.2. 1959 Unknown [id number] 2.16.840.1.505718.3.579.2. 1959 Unknown [id number] 2.16.840.1.727947.3.579.2. 1959 Unknown [id number] 2.16.840.1.545361.3.579.2. 1959 Unknown [id number] 2.16.840.1.474167.3.579.2. 356 1959 Unknown [id number] 2.16.840.1.024018.3.579.2. 356 1959 Unknown [id number] 2.16.840.1.901583.3.579.2. 356 1959 Unknown [id number] 2.16.840.1.651598.3.579.2. 1068 1959 Unknown [id number] 2.16.840.1.000111.3.579.2. 1069 1959 Unknown [id number] 2.16.840.1.019032.3.579.2. 106 1959 Unknown [id number] 2.16.840.1.445139.3.579.2. 1068 1959 Unknown [id number] 2.16.840.1.378493.3.579.2. 1068 1959 Unknown [id number] 2.16.840.1.601502.3.579.2. 1068 1959 Unknown [id number] 2.16.840.1.589328.3.579.2. 1068 1959 Unknown [id number] 2.16.840.1.505092.3.579.2. 1068 1959 Unknown [id number] 2.16.840.1.299178.3.579.2. 1068 1959 Unknown [id number] 2.16.840.1.144719.3.579.2. 1068 1959 Unknown [id number] 2.16.840.1.610657.3.579.2. 1068 1959 Unknown [id number] 2.16.840.1.888723.3.579.2. 1068 1959 Unknown [id number] 2.16.840.1.615145.3.579.2. 1068 1959 Unknown [id number] 2.16.840.1.420134.3.579.2. 1068 1959 Unknown [id number] 2.16.840.1.463214.3.579.2. 1068 1959 Unknown [id number] 2.16.840.1.966023.3.579.2. 1068 1959 Unknown [id number] 2.16.840.1.335430.3.579.2. 1068 1959 Unknown [id number] 2.16.840.1.031586.3.579.2. 1068 1959 Unknown [id number] 2.16.840.1.919485.3.579.2. 900 1959 Unknown [id number] 2.16.840.1.579929.3.579.2. 124 1959 Unknown [id number] 2.16.840.1.928049.3.579.2. 124 1959 Unknown [id number] 2.16.840.1.599915.3.579.2. 124 1959 Unknown [id number] 2.16.840.1.370261.3.579.2. 1243 1959 Unknown [id number] 2.16.840.1.399530.3.579.2. 902 1959 Unknown [id number] 2.16.840.1.159191.3.579.2. 903 1959 Unknown [id number] 2.16.840.1.516637.3.579.2. 903 1959 Unknown [id number] 2.16.840.1.920697.3.579.2. 903 1959 Unknown [id number] 2.16.840.1.016987.3.579.2. 903 1959 Unknown [id number] 2.16.840.1.579663.3.579.2. 1244 1959 Unknown [id number] 2.16.840.1.103448.3.579.2. 124 1959 Unknown [id number] 2.16.840.1.123640.3.579.2. 124 1959 Unknown [id number] 2.16.840.1.900211.3.579.2. 594 1959 Unknown [id number] 2.16.840.1.476601.3.579.2. 594 1959 Unknown [id number] 2.16.840.1.611123.3.579.2. 594 1959 Unknown [id number] 2.16.840.1.183793.3.579.2. 594 1959 Unknown [id number] 2.16.840.1.212987.3.579.2. 594 1959 Unknown [id number] 2.16.840.1.552390.3.579.2. 594 1959 Unknown [id number] 2.16.840.1.159487.3.579.2. 594 1959 Unknown [id number] 2.16.840.1.967493.3.579.2. 594 1959 Unknown [id number] 2.16.840.1.287480.3.579.2. 594 1959 Unknown [id number] 2.16840.1.321267.3.579.2. 594 1959 Unknown [id number] 2.16.840.1.879198.3.579.2. 594 1959 Unknown [id number] 2.16.840.1.901184.3.579.2. 594 1959 Unknown [id number] 2.16.840.1.500636.3.579.2. 594 1959 Unknown [id number] 2.16840.1.564962.3.579.2. 594 1959 Unknown [id number] 2.16.840.1.866355.3.579.2. 594 1959 Unknown [id number] 2.16.840.1.391743.3.579.2. 594 1959 Unknown [id number] 2.16.840.1.846699.3.579.2. 903 1959 Unknown [id number] 2.16.840.1.326768.3.579.2. 903 1959 Unknown [id number] 2.16.840.1.422549.3.579.2. 903 1959 Unknown [id number] 2.16.840.1.254917.3.579.2. 90 1959 Unknown [id number] 2.16.840.1.926579.3.579.2. 903 1959 Unknown [id number] 2.16840.1.505620.3.579.2. 90 1959 Unknown [id number] 2.16840.1.272381.3.579.2. 90 1959 Unknown [id number] 2.16840.1.633064.3.579.2. 90 1959 Unknown [id number] 2.840.1.574728.3.579.2. 1959 Unknown [id number] 2.840.1.419529.3.579.2. 90 1959 Unknown [id number] 2.840.1.875973.3.579.2. 90 1959 Unknown [id number] 2.16840.1.066865.3.579.2. 90 1959 Unknown [id number] 2.840.1.509806.3.579.2. 90 1959 Unknown [id number] 2.840.1.300018.3.579.2. 90 1959 Unknown [id number] 2.840.1.605733.3.579.2. 90 1959 Unknown [id number] 2.16840.1.908770.3.579.2. 90 Private Health Insurance Social History Date Type Detail Facility Start: 09-26-2017 End: 06-08-2023 Tobacco smoking status PRIS Unknown if ever smoked [facility] Start: 1960 Sex Assigned At Not on file [facility] Work Phone: Start: 11-07-2021 End: 06-10-2024 Exposure to SARS-CoV-2 (event) Not sure [facility] Start: 01-14-2020 End: 01-31-2024 Tobacco smoking status NHIS Never smoker [facility] Start: 01-14-2020 End: 06-24-2025 Alcohol intake Lifetime non-drinker (finding) [facility] Start: 01-14-2020 End: 05-23-2021 History SDOH Alcohol Frequency 1 [facility] Start: 06-15-2020 End: 09-06-2021 Tobacco use and exposure Never used [facility] Start: 06-15-2020 End: 07-10-2024 Alcohol intake Current non-drinker of alcohol (finding) [facility] Exposure to SARS-CoV -2 (event) Yes [facility] Start: 04-22-2019 End: 10-26-2024 Alcohol intake No [facility] Start: 01-31-2023 End: 10-26-2024 Non-smoker Non-smoker [facility] Start: 08-27-2022 End: 09-06-2022 Exposure to SARS-CoV-2 (event) Unable to assess [facility] Start: 07-08-2022 National Score (1-100), lower number is lower risk [address] [place] [address] How often to you hav e a drink containing alcohol? Never [facility] Start: 03-24-2020 Gender identity Identifies as male gender (finding) [facility] Start: 03-24-2020 Sexual orientation Choose not to disclose [facility] Start: 09-11-2024 Sexual orientation Heterosexual (finding) [facility] Has the electric, [employer], oil, or water company threatened to shut off services in your home in past 12Mo No [facility] (I/We) worried wheth er (my/our) food would run out before (I/we) got money to buy more. Never true [facility] Start: 01-12-2013 Sex Male (finding) [facility] Medical Equipment Procedure Code Equipment Code Equipment Origin al Text Equipment Identifier Dates I Factor Bone Putty [id number], [id number]_[facility] FDA Start: 05-26-2021 Comment on above: Description: 2.5mL b one putty- Peptide enhanced bone graft [employer] Screw Bn 18mm 4m m [facility] Spne [id number] - [id number] Start: 05-26-2021 [id number] Start: 08-30-2023 [employer] [id number] Start: 08-30-2023 Comment on above: Description: Group A ( high than 4th rib)- between C7 and L3 exclusion zone: 1.5/3T, NOM. < 15 minutes of active scan time within a 30 minute window [email or web address] AN 08/30/24 @ 1406 [facility] Spnl Crv 7m m 8dg Sm - [id number] Start: 05-26-2021 Cage Spnl Crv 7m m 8dg - [id number] Start: 05-26-2021 Plate Bn [id number] 14mm [id number] - [id number] Start: 05-26-2021 Screw Bn 16mm [address] [facility] Spne [id number] - [id number] Start: 05-26-2021 Functional Status Date Assessment Result Facility 12-11-2024 Are you deaf, or do you have serious difficulty hearing No 12/11/2024 9:25 AM EDAiram Johnson, ARIANNA No [facility] 12-11-2024 Are you blind, or do you have serious difficulty seeing, even when wearing glasses No 12/11/2024 9:25 AM Airam Cole, ARIANNA No [facility] 12-11-2024 Do you have serious difficulty walking or climbing stairs Yes 12/11/2024 9:25 AM Airam Cole, RN Yes [facility] 12-11-2024 Do you have difficul ty dressing or bathing Yes 12/11/2024 9:25 AM EDAiram Johnson, RN Yes [facility] 12-11-2024 Because of a physica l, mental, or emotional condition, do you have difficulty doing errands alone such as visiting a physician's office or shopping Yes 12/11/2024 9:25 AM EDT Airam Fuentes, RN Yes [facility] Mental Status Date Assessment Result Facility 12-11-2024 Because of a physica l, mental, or emotional condition, do you have serious difficulty concentrating, remembering, or making decisions No 12/11/2024 9:25 AM EDT Airam Fuentes, RN No [facility] Clinical Notes 02-09-2020 to 06-24-2025 Marleni Gold MD - 06/24/2025 3:29 PM ESTPatient InstructionsTelephone Encounter - Sites, [facility] - 06/19/2025 7:58 AM ESTTelephone Encounter - Sites, [facility] - 06/19/2025 7:58 AM EST Note Date & Type Note Facility 06-24-2025 Note [facility] [address] (11) [facility] [address] [facility] [id number] Patient: Pancho Mcpherson Age: 65 y.o. Race: [1] Chief Complaint: Chief Complaint Patient presents with Colonoscopy 1. Rectal bleeding Ambulatory referral to General Surgery Case Request Operating Room: COLONOSCOPY Date: 06/24/25 Physicians: Mahamed Neri DO (Family); Mahamed Neri* (Referring) HPI: With the understanding that it has probably been more than 10 years since colonoscopy, this 65-year-old developmentally delayed wheelchair-bound male was referred for possible colonoscopy. Since cholecystectomy in October of this year his bowels have been looser. In general, though, bowel function is at baseline. They do see blood with every bowel movement that he has at his intermediate that they believe is from hemorrhoids. YES NO [x] [] Change in bowel habits? [x] [] Constipation [x] [] Diarrhea? [x] [] Blood in stool? [] [x] Mucus in your stool? [] [x] Decrease in caliber of your stool? [] [x] Heme positive stool [] [x] Have you recently been diagnosed with anemia by your family doctor? [] [x] Do you have any family members with a history of Colon Cancer? Past Histories: Allergies: Patient has no known allergies. Patient's Medications New Prescriptions No medications on file Previous Medications ACETAMINOPHEN (TYLENOL) 325 MG TABLET Take 2 (two) tablets (650 mg total) by mouth every 6 (six) hours as needed for pain GIVE 2 TABLETS (650 MG) BY MOUTH EVERY 6 HOURS NEEDED FOR MILD PAIN (ALSO HAS SCHEDULED DOSE) *MAX 8 TABS/24 HRS* . ACETAMINOPHEN (TYLENOL) 325 MG TABLET Take 2 (two) tablets (650 mg total) by mouth 2 (two) times a day . ALBUTEROL (PROVENTIL) 2.5 MG /3 ML (0.083 %) NEBULIZER SOLUTION Take 3 mL (2.5 mg total) by nebulization 3 (three) times a day as needed for wheezing ADMINISTER 1 VIAL PER NEBULIZER 3 TIMES DAILY NEEDED . ATORVASTATIN (LIPITOR) 10 MG TABLET Take 1 (one) tablet (10 mg total) by mouth daily . BUDESONIDE (PULMICORT) 0.5 MG/2 ML NEBULIZER SOLUTION Take 2 mL (0.5 mg total) by nebulization 3 (three) times a day as needed . CALCIUM CARBONATE (TUMS) 200 MG CALCIUM (500 MG) CHEWABLE TABLET Chew and Swallow 1 (one) tablet (500 mg total) 2 (two) times a day . CHOLECALCIFEROL, VITAMIN D3, 1,000 UNIT TABLET Take 2 (two) tablets (2,000 Units total) by mouth daily . CLONAZEPAM (KLONOPIN) 1 MG TABLET Take 1 (one) tablet (1 mg total) by mouth at bedtime . CYANOCOBALAMIN (B-12) 1000 MCG TABLET Take 1 (one) tablet (1,000 mcg total) by mouth daily . DIAZEPAM (VALTOCO) 20 MG/2 SPRAY (10MG/0.1ML X2) SPRY Instill 1 spray into each nostril as needed (convulsive seizure lasting 5 minutes or longer) GIVE 10 MG (1 SPRAY) IN 1 NOSTRIL NEEDED FOR CONVULSIVE SEIZURE LASTING 5 MIN OR LONG. MAX 2 DOSES IN 7 DAYS. . FAMOTIDINE (PEPCID) 20 MG TABLET Take 1 (one) tablet (20 mg total) by mouth 2 (two) times a day . FINASTERIDE (PROSCAR) 5 MG TABLET Take 1 (one) tablet (5 mg total) by mouth daily . FOLIC ACID (FOLVITE) 1 MG TABLET Take 1 (one) tablet (1 mg total) by mouth daily . HYDROCORTISONE 1 % CREAM Apply topically 2 (two) times a day as needed (itchiness) B/L anterior notch of ear . LACOSAMIDE (VIMPAT) 200 MG TAB Take 1 (one) tablet (200 mg total) by mouth every 12 (twelve) hours . LACOSAMIDE (VIMPAT) 50 MG TAB Take 1 (one) tablet (50 mg total) by mouth 2 (two) times a day For a total of 250mg bid . LEVETIRACETAM (KEPPRA XR) 500 MG 24 HR TABLET Take 4 (four) tablets (2,000 mg total) by mouth 2 (two) times a day . LEVOTHYROXINE (SYNTHROID, LEVOTHROID) 100 MCG TABLET Take 1 (one) tablet (100 mcg total) by mouth once daily Along with 137 mcg, total 237 daily . LEVOTHYROXINE (SYNTHROID, LEVOTHROID) 137 MCG TABLET Take 1 (one) tablet (137 mcg total) by mouth once daily With 100 mcg, total 237 daily . METHENAMINE (HIPREX) 1 GRAM TABLET Take 1 (one) tablet (1 g total) by mouth 2 (two) times a day . METOPROLOL SUCCINATE (TOPROL-XL) 25 MG 24 HR TABLET Take 1 (one) tablet (25 mg total) by mouth daily . NONFORMULARY TREATMENT-DUODERM ADHESIVE DRESSING 4 X 4: APPLY 1 UNIT BY TOPICAL ROUTE EVERY 3 DAYS, ADDITIONAL IF NEEDED (OPEN AREAS TO BOTTOM) . NONFORMULARY TREATMENT-SWIPE VNS MAGNET ONE TIME AT [employer] . NONFORMULARY TREATMENT-CHECK BLOOD PRESSURE & HEART RATE DAILY. UPDATE NURSE IF >140/90 AND HR >100 OR IF < 100/60 AND HR <60 . PAROXETINE (PAXIL) 10 MG TABLET Take 1 (one) tablet (10 mg total) by mouth daily Plus 40 mg for total of 50 daily . PAROXETINE (PAXIL) 40 MG TABLET Take 1 (one) tablet (40 mg total) by mouth daily Plus 10 mg for total of 50 daily . PHENOBARBITAL 16.2 MG TABLET Take 1 (one) tablet (16.2 mg total) by mouth 2 (two) times a day Along with 32.4mg dose Reasons: seizures. PHENOBARBITAL 32.4 MG TABLET Take 1 (one) tablet (32.4 mg total) by mouth 2 (two) times (more content not included)... [facility] 06-24-2025 History of Present illness Narrative [facility] [address] (11) [facility] [address] [facility] [id number] Patient: Pancho Mcpherson Age: 65 y.o. Race: [1] Chief Complaint: Chief Complaint Patient presents with Colonoscopy 1. Rectal bleeding Ambulatory referral to General Surgery Case Request Operating Room: COLONOSCOPY Date: 06/24/25 Physicians: Mahamed Neri DO (Family); Mahamed Neri* (Referring) HPI: With the understanding that it has probably been more than 10 years since colonoscopy, this 65-year-old developmentally delayed wheelchair-bound male was referred for possible colonoscopy. Since cholecystectomy in October of this year his bowels have been looser. In general, though, bowel function is at baseline. They do see blood with every bowel movement that he has at his intermediate that they believe is from hemorrhoids. YES NO [x] [] Change in bowel habits? [x] [] Constipation [x] [] Diarrhea? [x] [] Blood in stool? [] [x] Mucus in your stool? [] [x] Decrease in caliber of your stool? [] [x] Heme positive stool [] [x] Have you recently been diagnosed with anemia by your family doctor? [] [x] Do you have any family members with a history of Colon Cancer? Past Histories: Allergies: Patient has no known allergies. Patient's Medications New Prescriptions No medications on file Previous Medications ACETAMINOPHEN (TYLENOL) 325 MG TABLET Take 2 (two) tablets (650 mg total) by mouth every 6 (six) hours as needed for pain GIVE 2 TABLETS (650 MG) BY MOUTH EVERY 6 HOURS NEEDED FOR MILD PAIN (ALSO HAS SCHEDULED DOSE) *MAX 8 TABS/24 HRS* . ACETAMINOPHEN (TYLENOL) 325 MG TABLET Take 2 (two) tablets (650 mg total) by mouth 2 (two) times a day . ALBUTEROL (PROVENTIL) 2.5 MG /3 ML (0.083 %) NEBULIZER SOLUTION Take 3 mL (2.5 mg total) by nebulization 3 (three) times a day as needed for wheezing ADMINISTER 1 VIAL PER NEBULIZER 3 TIMES DAILY NEEDED . ATORVASTATIN (LIPITOR) 10 MG TABLET Take 1 (one) tablet (10 mg total) by mouth daily . BUDESONIDE (PULMICORT) 0.5 MG/2 ML NEBULIZER SOLUTION Take 2 mL (0.5 mg total) by nebulization 3 (three) times a day as needed . CALCIUM CARBONATE (TUMS) 200 MG CALCIUM (500 MG) CHEWABLE TABLET Chew and Swallow 1 (one) tablet (500 mg total) 2 (two) times a day . CHOLECALCIFEROL, VITAMIN D3, 1,000 UNIT TABLET Take 2 (two) tablets (2,000 Units total) by mouth daily . CLONAZEPAM (KLONOPIN) 1 MG TABLET Take 1 (one) tablet (1 mg total) by mouth at bedtime . CYANOCOBALAMIN (B-12) 1000 MCG TABLET Take 1 (one) tablet (1,000 mcg total) by mouth daily . DIAZEPAM (VALTOCO) 20 MG/2 SPRAY (10MG/0.1ML X2) SPRY Instill 1 spray into each nostril as needed (convulsive seizure lasting 5 minutes or longer) GIVE 10 MG (1 SPRAY) IN 1 NOSTRIL NEEDED FOR CONVULSIVE SEIZURE LASTING 5 MIN OR LONG. MAX 2 DOSES IN 7 DAYS. . FAMOTIDINE (PEPCID) 20 MG TABLET Take 1 (one) tablet (20 mg total) by mouth 2 (two) times a day . FINASTERIDE (PROSCAR) 5 MG TABLET Take 1 (one) tablet (5 mg total) by mouth daily . FOLIC ACID (FOLVITE) 1 MG TABLET Take 1 (one) tablet (1 mg total) by mouth daily . HYDROCORTISONE 1 % CREAM Apply topically 2 (two) times a day as needed (itchiness) B/L anterior notch of ear . LACOSAMIDE (VIMPAT) 200 MG TAB Take 1 (one) tablet (200 mg total) by mouth every 12 (twelve) hours . LACOSAMIDE (VIMPAT) 50 MG TAB Take 1 (one) tablet (50 mg total) by mouth 2 (two) times a day For a total of 250mg bid . LEVETIRACETAM (KEPPRA XR) 500 MG 24 HR TABLET Take 4 (four) tablets (2,000 mg total) by mouth 2 (two) times a day . LEVOTHYROXINE (SYNTHROID, LEVOTHROID) 100 MCG TABLET Take 1 (one) tablet (100 mcg total) by mouth once daily Along with 137 mcg, total 237 daily . LEVOTHYROXINE (SYNTHROID, LEVOTHROID) 137 MCG TABLET Take 1 (one) tablet (137 mcg total) by mouth once daily With 100 mcg, total 237 daily . METHENAMINE (HIPREX) 1 GRAM TABLET Take 1 (one) tablet (1 g total) by mouth 2 (two) times a day . METOPROLOL SUCCINATE (TOPROL-XL) 25 MG 24 HR TABLET Take 1 (one) tablet (25 mg total) by mouth daily . NONFORMULARY TREATMENT-DUODERM ADHESIVE DRESSING 4 X 4: APPLY 1 UNIT BY TOPICAL ROUTE EVERY 3 DAYS, ADDITIONAL IF NEEDED (OPEN AREAS TO BOTTOM) . NONFORMULARY TREATMENT-SWIPE VNS MAGNET ONE TIME AT [email or web address] . NONFORMULARY TREATMENT-CHECK BLOOD PRESSURE & HEART RATE DAILY. UPDATE NURSE IF >140/90 AND HR >100 OR IF < 100/60 AND HR <60 . PAROXETINE (PAXIL) 10 MG TABLET Take 1 (one) tablet (10 mg total) by mouth daily Plus 40 mg for total of 50 daily . PAROXETINE (PAXIL) 40 MG TABLET Take 1 (one) tablet (40 mg total) by mouth daily Plus 10 mg for total of 50 daily . PHENOBARBITAL 16.2 MG TABLET Take 1 (one) tablet (16.2 mg total) by mouth 2 (two) times a day Along with 32.4mg dose Reasons: seizures. PHENOBARBITAL 32.4 MG TABLET Take 1 (one) tablet (32.4 mg total) by mouth 2 (two) times a day Along with 16.2mg dose Reasons: seizures. PHENOBARBITAL 32.4 MG TABLET Take 2 (two) tablets (64.8 mg total) by mouth at bedtime . PHENYLEPH/PRAMOXIN/GLYCR/W.PET (HEMORRHOIDAL CREAM RECT) Insert 1 Application into the rectum 2 (two) times a day To affected area am and pm plus as needed . PHENYTOIN (DILANTIN) 100 MG ER CAPSULE Take 3 (three) capsules (300 mg total) by mouth nightly . POLYETHYLENE GLYCOL (MIRALAX) 17 GRAM POWDER Take 17 (seventeen) g by mouth 2 (two) times a day Reasons: constipation. QUETIAPINE (SEROQUEL) 200 MG TABLET Take 1 (one) tablet (200 mg total) by mouth nightly Plus 50 mg for total 250 nightly . QUETIAPINE (SEROQUEL) 25 MG TABLET Take 1 (one) tablet (25 mg total) by mouth daily At 1 pm . QUETIAPINE (SEROQUEL) 50 MG TABLET Take 1 (one) tablet (50 mg total) by mouth 2 (two) times a day Plus 200 mg for total of 250 mg nightly . SENNA-DOCUSATE (SENNOSIDES-DOCUSATE SODIUM) 8.6-50 MG Take 1 (one) tablet by mouth 2 (two) times a day . TAMSULOSIN (FLOMAX) 0.4 MG CAPSULE Take 1 (one) capsule (0.4 mg total) by mouth daily . Modified Medications No medications on file Discontinued Medications No medications on file Problem List[1] Past Medical History: Diagnosis Date Abnormal involuntary movement Abnormal involuntary movement Alkaline phosphatase elevation Anemia Balance problem Dementia (HCC) Depression Development delay Disease of thyroid gland Disorientation Dyslipidemia Epilepsy (HCC) Fatigue General weakness Hearing loss Hyperammonemia Hyperlipidemia Hypertension Injury of head Intellectual disability Lack of coordination Memory loss Recurrent falls Recurrent UTI Seizures (HCC) Sleep apnea Speech abnormality Spinal stenosis, lumbar region without neurogenic claudication Vitamin D deficiency Past Surgical History: Procedure Laterality Date CHOLECYSTECTOMY ROBOTIC XI N/A 10/24/2024 Procedure: ROBOTIC CHOLECYSTECTOMY WITH LYSIS OF ADHESION; Surgeon: Jakub Oglesby MD; Location: [facility]; Service: [employer]; Laterality: N/A; COLONOSCOPY EXPLORATORY LAPAROTOMY 2019 EYE SURGERY Right FUSION ANTERIOR INTERBODY CERVICAL 05/26/2021 INSERTION NEUROSTIMULATOR ELECTRODE & GENERATOR CRANIAL NERVE (EG VAGUS) OPEN 08/30/2023 LEG SURGERY lower leg fracture with pin REDUCTION OPEN ORBITAL FLOOR FX W/ IMPLANT Right 06/05/2014 Social History [2] Single Data Unavailable Tobacco Use History[3] Social History Substance and Sexual Activity Alcohol Use Never Social History Substance and Sexual Activity Drug Use Never Family History Problem Relation Age of Onset Alzheimer's disease Mother Other (Lipid Disorder) Mother Alzheimer's disease Father Schizophrenia Father Alcohol abuse Brother REVIEW OF SYSTEMS Pertinent positives and negatives are listed in HPI, PMSH, SH, ALL above and in Details below. The following systems were reviewed: [x] Const (fevers, chills, wt. loss, fatigue) [x] CV (HTN, CP, MANTILLA, edema, DVT) [x] Resp (SOB, pleurisy, asthma, apnea) [x] GI (N, V, D, C, M, abd pain, appetite) [x] Musc (back pain, joint stiffness, gout) [x] Neuro (seizures, syncope, paralysis) [x] Psych (depression, anxiety) [x] Endo (hot/cold intol, polyuria[DM]) [x] Hem/Lymph (Anemia, LA, bleeding) [x] Allerg/Immun (seasonal, immuniz) [x] Eyes (diplopia, cataracts) [x] ENT/mouth (dysphagia, epistaxis) [x] (dysuria, hematuria) [x] Skin/Breast (moles, rash, lumps, nipple changes) Details: See scanned ROS Physical Exam: BP 134/83 Pulse 77 Ht 5' 8 Wt 93.9 kg (207 lb) SpO2 (!) 89% BMI 31.47 kg/m Body mass index is 31.47 kg/m . HEENT: PERRLA EOMI MMM anicteric Cardiac: regular rate and rhythm without murmur Lungs: clear to auscultation Abdomen: normoactive bowel sounds, soft, nondistended, nontender, no masses, organomegaly, rebound, or guarding Wheelchair-bound with obvious dysfunction and range of motion of extremities Assessment: Rectal bleeding believed to be from hemorrhoids Screening for colon cancer Plan: Given that he has blood with every bowel movement, Cologuard testing is not an option as it will be positive. Colonoscopy in essence is the only option if we are to proceed with further evaluation. We were unfortunately not able to reach his sister who is power of civil rights attorney. At this point we will tentatively have him scheduled pending conversation with her. If necessary, we can admit the day before for the prep. Addendum: Prior to beginning the scheduling process, the patient's sister did call in. I reviewed everything with her including the fact that Cologuard is not really an option since blood is seen with every bowel movement. We discussed reasons for colonoscopy. We also addressed her concern about hemorrhoids and the possibility that they could be treated at the same time as colonoscopy. For now, the patient's sister does not wish to schedule anything and will consider the options. They will contact us if she changes her mind. 1. 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) Hypertension goal BP (blood pressure) < 140/90 Refractory epilepsy (HCC) Hyperlipidemia LDL goal <100 Multilevel degenerative disc disease JAIME on CPAP Gastroesophageal reflux disease Mood disorder due to medical condition Acquired hypothyroidism Calculus of GB w acute and chronic cholecyst w/o obstruction Hypoxia Chronic constipation Hemorrhoids S/P cholecystectomy Profound intellectual disability Healthcare maintenance [2] Social History Socioeconomic History Marital status: Single Tobacco Use Smoking status: Never Vaping Use Vaping status: Never Used Substance and Sexual Activity Alcohol use: Never Drug use: Never Social Drivers of Health Food Insecurity: No Food Insecurity (12/11/2024) Received from [facility] - Food Insecurity Worried About Running Out of Food in the Last Year: No Ran Out of Food in the Last Year: No Transportation Needs: No Transportation Needs (12/11/2024) Received from [facility] - Transportation Lack of Transportation: No Housing Stability: Not At Risk (12/11/2024) Received from [facility] - Housing/Utilities Has Housing: Yes Worried About Losing Housing: No Unable to Get Utilities: No [3] Social History Tobacco Use Smoking Status Never Smokeless Tobacco Not on file documented in this encounter [facility] 06-24-2025 Instructions Laurel Márquez RN - 06/24/2025 3:09 PM EST WE APPRECIATE YOU! Thank you for trusting us with your care. You may receive a survey through the mail, email, or text. Please complete the survey to give us feedback on our service! Your care team today included: Registration: Zoe Rooming: Laurel KELLERmanager trainee Scheduling: Daisy SIMMONS documented in this encounter [facility] 06-19-2025 Telephone encounter Note Last ov 06/12/25 Next ov 09/24/2025 [facility] 06-19-2025 Miscellaneous Notes Last ov 06/12/25 Next ov 09/24/2025 documented in this encounter [facility] 06-19-2025 Telephone encounter Note Last ov 06/12/2025 Next ov 09/24/2025 [facility] 06-19-2025 Miscellaneous Notes Last ov 06/12/2025 Next ov 09/24/2025 documented in this encounter [facility] 06-12-2025 Note Assessment & Plan Refractory epilepsy Experiences breakthrough seizures despite multiple antiseizure medications. Neurology considering treatment changes. - Continue phenobarbital, phenytoin, and Vimpat. - Use VNS magnet for breakthrough seizures. - Follow up with neurology. 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 Following up with neurology and psychiatry. - Continue Seroquel and Paxil. - Follow up with neurology and psychiatry. Hypertension Blood pressure well-controlled with metoprolol. - Continue metoprolol. Acquired hypothyroidism Hypothyroidism well-controlled with levothyroxine. - Continue levothyroxine 237 mcg daily. Benign prostatic hypertrophy Prostate enlargement managed by urologist. - Continue Flomax and finasteride. - Follow up with urology. General Health Maintenance May need colonoscopy in the future. Uses bed side rails and video monitoring for seizures during sleep. - Consider colonoscopy in the future. - Use bed side rails and video monitoring for seizures. Follow-up A follow-up visit is planned to complete the Medicare wellness visit. - Schedule Medicare wellness visit in 3 months. Diagnoses and all orders for this visit: 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) - Physician communication order - Physician communication order Mood disorder due to medical condition Refractory epilepsy (HCC) - Physician communication order - Physician communication order Hypertension goal BP (blood pressure) < 140/90 Acquired hypothyroidism Benign prostatic hyperplasia with urinary obstruction and other lower urinary tract symptoms For any new medications prescribed today, patient was educated about indications for the medication, how to take the medication, and potential side effects of the medication. My ongoing relationship with Pancho Mcpherson requires continued responsibility and cognitive effort of being the focal point for all services related to chronic condition(s). Return in about 3 months (around 09/12/2025) for Annual Medicare Wellness Exam. Mahamed Neri DO, MS Family Medicine, Osteopathic Manipulative Medicine, and Hospital Medicine [facility] 06/12/2025 Subjective Chief Complaint Patient presents with Annual Exam HPI: After discussing the use of ambient listening and audio recording in generating medical documentation, the patient verbally consented to use of this technology for today's visit. History of Present Illness Pancho Mcpherson is a 65 year old male who presents for follow-up and medication orders. He uses side rails to assist with shifting and rolling in bed. He has a history of seizures and experienced a seizure last Monday. He is under the care of a neurologist and uses a VNS magnet for breakthrough seizures. His medications include phenobarbital, phenytoin, and Vimpat. He takes quetiapine and Paxil for mood stabilization and depression. His bowel movements are regular with an increased dose of Miralax. There are no current issues with urination. He has been seen by a urologist for prostate enlargement and takes Flomax and finasteride. He takes metoprolol for blood pressure and 237 micrograms of levothyroxine daily for thyroid function. *Review of systems was negative unless otherwise stated in HPI. The following portions of the patient's history were reviewed and updated as appropriate: allergies, current medications, past family history, past medical history, past social history, past surgical history and problem list. Patient's Medications New Prescriptions No medications on file Previous Medications ACETAMINOPHEN (TYLENOL) 325 MG TABLET Take 2 (two) tablets (650 mg total) by mouth every 6 (six) hours as needed for pain GIVE 2 TABLETS (650 MG) BY MOUTH EVERY 6 HOURS NEEDED FOR MILD PAIN (ALSO HAS SCHEDULED DOSE) *MAX 8 TABS/24 HRS* . ACETAMINOPHEN (TYLENOL) 325 MG TABLET Take 2 (two) tablets (650 mg total) by mouth 2 (two) times a day . ALBUTEROL (PROVENTIL) 2.5 MG /3 ML (0.083 %) NEBULIZER SOLUTION Take 3 mL (2.5 mg total) by nebulization 3 (three) times a day as needed for wheezing ADMINISTER 1 VIAL PER NEBULIZER 3 TIMES DAILY NEEDED . ATORVASTATIN (LIPITOR) 10 MG TABLET Take 1 (one) tablet (10 mg total) by mouth daily . BUDESONIDE (PULMICORT) 0.5 MG/2 ML NEBULIZER SOLUTION Take 2 mL (0.5 mg total) by nebulization 3 (three) times a day as needed . CALCIUM CARBONATE (TUMS) 200 MG CALCIUM (500 MG) CHEWABLE TABLET Chew and Swallow 1 (one) tablet (500 mg total) 2 (two) times a day . CHOLECALCIFEROL, VITAMIN D3, 1,000 UNIT TABLET Take 2 (two) tablets (2,000 Units total) by mouth daily . CLONAZEPAM (KLONOPIN) 1 MG TABLET Take 1 (one) tablet (1 mg total) by mouth at bedtime . CYANOCOBALAMIN (B-12) 1000 MCG TABLET Take 1 (one) tablet (1,000 mcg total) (more content not included)... [facility] 06-12-2025 History of Present illness Narrative Assessment & Plan Refractory epilepsy Experiences breakthrough seizures despite multiple antiseizure medications. Neurology considering treatment changes. - Continue phenobarbital, phenytoin, and Vimpat. - Use VNS magnet for breakthrough seizures. - Follow up with neurology. 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 Following up with neurology and psychiatry. - Continue Seroquel and Paxil. - Follow up with neurology and psychiatry. Hypertension Blood pressure well-controlled with metoprolol. - Continue metoprolol. Acquired hypothyroidism Hypothyroidism well-controlled with levothyroxine. - Continue levothyroxine 237 mcg daily. Benign prostatic hypertrophy Prostate enlargement managed by urologist. - Continue Flomax and finasteride. - Follow up with urology. General Health Maintenance May need colonoscopy in the future. Uses bed side rails and video monitoring for seizures during sleep. - Consider colonoscopy in the future. - Use bed side rails and video monitoring for seizures. Follow-up A follow-up visit is planned to complete the Medicare wellness visit. - Schedule Medicare wellness visit in 3 months. Diagnoses and all orders for this visit: 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) - Physician communication order - Physician communication order Mood disorder due to medical condition Refractory epilepsy (HCC) - Physician communication order - Physician communication order Hypertension goal BP (blood pressure) < 140/90 Acquired hypothyroidism Benign prostatic hyperplasia with urinary obstruction and other lower urinary tract symptoms For any new medications prescribed today, patient was educated about indications for the medication, how to take the medication, and potential side effects of the medication. My ongoing relationship with Pancho Mcpherson requires continued responsibility and cognitive effort of being the focal point for all services related to chronic condition(s). Return in about 3 months (around 09/12/2025) for Annual Medicare Wellness Exam. Mahamed Neri DO, MS Family Medicine, Osteopathic Manipulative Medicine, and Hospital Medicine [facility] 06/12/2025 Subjective Chief Complaint Patient presents with Annual Exam HPI: After discussing the use of ambient listening and audio recording in generating medical documentation, the patient verbally consented to use of this technology for today's visit. History of Present Illness Pancho Mcpherson is a 65 year old male who presents for follow-up and medication orders. He uses side rails to assist with shifting and rolling in bed. He has a history of seizures and experienced a seizure last Monday. He is under the care of a neurologist and uses a VNS magnet for breakthrough seizures. His medications include phenobarbital, phenytoin, and Vimpat. He takes quetiapine and Paxil for mood stabilization and depression. His bowel movements are regular with an increased dose of Miralax. There are no current issues with urination. He has been seen by a urologist for prostate enlargement and takes Flomax and finasteride. He takes metoprolol for blood pressure and 237 micrograms of levothyroxine daily for thyroid function. *Review of systems was negative unless otherwise stated in HPI. The following portions of the patient's history were reviewed and updated as appropriate: allergies, current medications, past family history, past medical history, past social history, past surgical history and problem list. Patient's Medications New Prescriptions No medications on file Previous Medications ACETAMINOPHEN (TYLENOL) 325 MG TABLET Take 2 (two) tablets (650 mg total) by mouth every 6 (six) hours as needed for pain GIVE 2 TABLETS (650 MG) BY MOUTH EVERY 6 HOURS NEEDED FOR MILD PAIN (ALSO HAS SCHEDULED DOSE) *MAX 8 TABS/24 HRS* . ACETAMINOPHEN (TYLENOL) 325 MG TABLET Take 2 (two) tablets (650 mg total) by mouth 2 (two) times a day . ALBUTEROL (PROVENTIL) 2.5 MG /3 ML (0.083 %) NEBULIZER SOLUTION Take 3 mL (2.5 mg total) by nebulization 3 (three) times a day as needed for wheezing ADMINISTER 1 VIAL PER NEBULIZER 3 TIMES DAILY NEEDED . ATORVASTATIN (LIPITOR) 10 MG TABLET Take 1 (one) tablet (10 mg total) by mouth daily . BUDESONIDE (PULMICORT) 0.5 MG/2 ML NEBULIZER SOLUTION Take 2 mL (0.5 mg total) by nebulization 3 (three) times a day as needed . CALCIUM CARBONATE (TUMS) 200 MG CALCIUM (500 MG) CHEWABLE TABLET Chew and Swallow 1 (one) tablet (500 mg total) 2 (two) times a day . CHOLECALCIFEROL, VITAMIN D3, 1,000 UNIT TABLET Take 2 (two) tablets (2,000 Units total) by mouth daily . CLONAZEPAM (KLONOPIN) 1 MG TABLET Take 1 (one) tablet (1 mg total) by mouth at bedtime . CYANOCOBALAMIN (B-12) 1000 MCG TABLET Take 1 (one) tablet (1,000 mcg total) by mouth daily . DIAZEPAM (VALTOCO) 20 MG/2 SPRAY (10MG/0.1ML X2) SPRY Instill 1 spray into each nostril as needed (convulsive seizure lasting 5 minutes or longer) GIVE 10 MG (1 SPRAY) IN 1 NOSTRIL NEEDED FOR CONVULSIVE SEIZURE LASTING 5 MIN OR LONG. MAX 2 DOSES IN 7 DAYS. . FAMOTIDINE (PEPCID) 20 MG TABLET Take 1 (one) tablet (20 mg total) by mouth 2 (two) times a day . FINASTERIDE (PROSCAR) 5 MG TABLET Take 1 (one) tablet (5 mg total) by mouth daily . FOLIC ACID (FOLVITE) 1 MG TABLET Take 1 (one) tablet (1 mg total) by mouth daily . HYDROCORTISONE 1 % CREAM Apply topically 2 (two) times a day as needed (itchiness) B/L anterior notch of ear . LACOSAMIDE (VIMPAT) 200 MG TAB Take 1 (one) tablet (200 mg total) by mouth every 12 (twelve) hours . LACOSAMIDE (VIMPAT) 50 MG TAB Take 1 (one) tablet (50 mg total) by mouth 2 (two) times a day For a total of 250mg bid . LEVETIRACETAM (KEPPRA XR) 500 MG 24 HR TABLET Take 4 (four) tablets (2,000 mg total) by mouth 2 (two) times a day . LEVOTHYROXINE (SYNTHROID, LEVOTHROID) 100 MCG TABLET Take 1 (one) tablet (100 mcg total) by mouth once daily Along with 137 mcg, total 237 daily . LEVOTHYROXINE (SYNTHROID, LEVOTHROID) 137 MCG TABLET Take 1 (one) tablet (137 mcg total) by mouth once daily With 100 mcg, total 237 daily . METHENAMINE (HIPREX) 1 GRAM TABLET Take 1 (one) tablet (1 g total) by mouth 2 (two) times a day . METOPROLOL SUCCINATE (TOPROL-XL) 25 MG 24 HR TABLET Take 1 (one) tablet (25 mg total) by mouth daily . NONFORMULARY TREATMENT-DUODERM ADHESIVE DRESSING 4 X 4: APPLY 1 UNIT BY TOPICAL ROUTE EVERY 3 DAYS, ADDITIONAL IF NEEDED (OPEN AREAS TO BOTTOM) . NONFORMULARY TREATMENT-SWIPE VNS MAGNET ONE TIME AT [facility] [employer] . NONFORMULARY TREATMENT-CHECK BLOOD PRESSURE & HEART RATE DAILY. UPDATE NURSE IF >140/90 AND HR >100 OR IF < 100/60 AND HR <60 . PAROXETINE (PAXIL) 10 MG TABLET Take 1 (one) tablet (10 mg total) by mouth daily Plus 40 mg for total of 50 daily . PAROXETINE (PAXIL) 40 MG TABLET Take 1 (one) tablet (40 mg total) by mouth daily Plus 10 mg for total of 50 daily . PHENOBARBITAL 16.2 MG TABLET Take 1 (one) tablet (16.2 mg total) by mouth 2 (two) times a day Along with 32.4mg dose Reasons: seizures. PHENOBARBITAL 32.4 MG TABLET Take 1 (one) tablet (32.4 mg total) by mouth 2 (two) times a day Along with 16.2mg dose Reasons: seizures. PHENOBARBITAL 32.4 MG TABLET Take 2 (two) tablets (64.8 mg total) by mouth at bedtime . PHENYLEPH/PRAMOXIN/GLYCR/W.PET (HEMORRHOIDAL CREAM RECT) Insert 1 Application into the rectum 2 (two) times a day To affected area am and pm plus as needed . PHENYTOIN (DILANTIN) 100 MG ER CAPSULE Take 3 (three) capsules (300 mg total) by mouth nightly . POLYETHYLENE GLYCOL (MIRALAX) 17 GRAM POWDER Take 17 (seventeen) g by mouth 2 (two) times a day Reasons: constipation. QUETIAPINE (SEROQUEL) 200 MG TABLET Take 1 (one) tablet (200 mg total) by mouth nightly Plus 50 mg for total 250 nightly . QUETIAPINE (SEROQUEL) 25 MG TABLET Take 1 (one) tablet (25 mg total) by mouth daily At 1 pm . QUETIAPINE (SEROQUEL) 50 MG TABLET Take 1 (one) tablet (50 mg total) by mouth 2 (two) times a day Plus 200 mg for total of 250 mg nightly . SENNA-DOCUSATE (SENNOSIDES-DOCUSATE SODIUM) 8.6-50 MG Take 1 (one) tablet by mouth 2 (two) times a day . TAMSULOSIN (FLOMAX) 0.4 MG CAPSULE Take 1 (one) capsule (0.4 mg total) by mouth daily . Modified Medications No medications on file Discontinued Medications No medications on file No problems updated. Objective Vitals: 06/12/25 1037 BP: 113/73 BP Location: Right arm Patient Position: Sitting BP Cuff Size: X-large Adult Pulse: 70 Resp: 16 Temp: 98.6 F (37 C) TempSrc: Oral SpO2: 90% Weight: 93.9 kg (207 lb) Height: 5' 8 Physical Exam / Osteopathic Medical Exam Physical Exam GENERAL: Alert, cooperative, at neurologic and psychiatric baseline, no acute distress HEENT: Normocephalic, normal oropharynx, moist mucous membranes CHEST: Clear to auscultation bilaterally, No wheezes, rhonchi, or crackles CARDIOVASCULAR: Normal heart rate and rhythm, S1 and S2 normal without murmurs ABDOMEN: Soft, non-tender, non-distended, without organomegaly, Normal bowel sounds EXTREMITIES: No cyanosis or edema NEUROLOGICAL: Cranial nerves grossly intact, Moves all extremities without gross motor or sensory deficit Results PHQ9: RUMA-7 OARRS/NARxCHECK Report Received and Assessed: No data found Date controlled substance agreement signed: No data found Date of last drug screen: No data found Functional Assessment: No data found (Please note that this note was predominantly written using a combination of an AI-based voice recognition software and Dragon dictation. The voice recognition software is inherently subject to errors including those of syntax and sound-alike substitutions which may escape proofreading efforts. In such instances, original meaning may be extrapolated by contextual derivation. Please reach out for any clarification.) documented in this encounter [facility] 06-12-2025 Instructions Mahamed Neri DO - 06/12/2025 11:02 AM EDT VISIT SUMMARY: Today, we reviewed your current health conditions and medications. We discussed your recent seizure, and your neurologist is considering treatment changes. Your blood pressure, thyroid function, and prostate health are well-managed with your current medications. We also talked about your mood and dementia management, which are stable. YOUR PLAN: REFRACTORY EPILEPSY: You experience breakthrough seizures despite taking multiple antiseizure medications. -Continue taking phenobarbital, phenytoin, and Vimpat as prescribed. -Use the VNS magnet for any breakthrough seizures. -Follow up with your neurologist for further treatment options. DEMENTIA AND MOOD DISORDER: Your dementia and mood disorder are well-managed with your current medications. -Continue taking Seroquel and Paxil as prescribed. -Follow up with your neurologist and psychiatrist. HYPERTENSION: Your blood pressure is well-controlled with metoprolol. -Continue taking metoprolol as prescribed. ACQUIRED HYPOTHYROIDISM: Your hypothyroidism is well-controlled with levothyroxine. -Continue taking levothyroxine 237 mcg daily as prescribed. BENIGN PROSTATIC HYPERTROPHY: Your prostate enlargement is managed by your urologist. -Continue taking Flomax and finasteride as prescribed. -Follow up with your urologist. GENERAL HEALTH MAINTENANCE: General health recommendations and preventive measures. -Consider scheduling a colonoscopy in the future. -Continue using bed side rails and video monitoring for seizures during sleep. FOLLOW-UP: Next steps for your ongoing care. -Schedule your Medicare wellness visit in 3 months. documented in this encounter [facility] 05-13-2025 Telephone encounter Note Last O/V 12/17/24 Next O/V 06/12/25 [facility] 05-13-2025 Miscellaneous Notes Last O/V 12/17/24 Next O/V 06/12/25 documented in this encounter [facility] 05-08-2025 History of Present illness Narrative [facility] HISTORY OF PRESENT ILLNESS Pancho Mcpherson is a 64 y.o. right handed male with a history of Developmental delay, Essential hypertension, Hypothyroidism, Sleep apnea on CPAP, Cervical cord stenosis complicated with myelomalacia s/p corrective surgery, with residual leg weakness (wheel chair dependent) who presents to [facility] for evaluation on intractable epilepsy s/p VNS (09/2023) Patient was accompanied by caregivers from the facility and last seen by Kaushal Avitia PERTINENT SEIZURE HISTORY His seizures after having an event of high fever around age of 6 months. Thereafter his seizures have always remain difficult to control with anti seizure drug therapy. As caregiver, his seizures are characterized as loud vocalization followed by limb stiffening and unresponsiveness lasting for a minute followed by post ictal period of confusion and sleepiness. Denies any well defined prodrome or aura (visual, auditory or olfactory hallucinations, taste sensation, ning vu etc..) Seizure occurrence time: Denies any diurnal or nocturnal (either during sleep or upon awakening) pattern. Triggers: Denies any known triggers like stress, sleep deprivation, menses, flashing lights etc.. Frequency: 2-3 per month Longest duration of seizure freedom: Unknown History of status epilepticus : No documented history of SE or history for cluster of seizures. Seizure risk factors: Developmental delay: As per sister, Born on term thorough normal vaginal delivery. Achieved developmental milestones (language and motor milestones) on time but then started to regress cognitively and also required physical therapy . Denies any educational difficulties in school. History of febrile seizures: No. Brain infection (Meningitis or encephalitis) : No. Stroke : No. Head injury complicated with LOC : No. Alcohol withdrawal seizures : No. Use of cocaine or other recreational drugs: No. Family history of epilepsy: No. INTERVAL UPDATE 05/10/2025 Mr. Mcpherson underwent inpatient video EEG monitoring where we captured one of his sleep - activated tonic clonic seizure. Unfortunately no clear ictal EEG onset followed by diffuse EMG artifact and post ictal phase of diffuse delta slowing. He continues to experience 1 -2 seizure per month. Current ASD: Pheno-Paola 32.4 mg -32.4 mg -64.8 mg , Dilantin 300 mg at bedtime , LEV 2000 mg BID , Lacosamide 250 mg BID Klonopin 1 mg at bedtime His VNS output current adjusted VNS setting: Output current (mA): >>1.875 Frequency (Hz) : 20 Pulse width (uSec): 250 On time (sec):30 Off time (min): 3 Duty Cycle (%): 16 Magnet setting: Output current (mA): 2>2.25 Pulse width (uSec):250 On time (sec):60 Autostim settings: Output current (mA): 1.875>2 Pulse width (uSec):250 On time (sec):30 Also had lengthy discussion on recognizing ictal (Bilateral tonic -clonic symptoms) and post ictal phase (non verbal vocalization. Disorientated and pushing staff away). I reviewed EMU seizure video clip with caregivers and there is concern that overnight staff at facility might be over treating post ictal phase symptoms.They are going to educate the other staff member. PERTINENT LABS, NEURODIAGNOSTIC STUDIES, NEUROIMAGING AND NEUROPSYCHOLOGICAL TESTING Prior evaluation: MRI brain : 2021 reported negative for any intracranial pathologies except for WM changes EEG : none in our system Nuclear imaging : REVIEW OF SYSTEMS As mentioned in HPI PHYSICAL EXAM Smoking Status Never General appearance: neat and pleasant to interact. Cardiovascular: Regular rate and rhythm. Lungs: Clear to auscultation bilaterally Mental status: Awake alert, could tell his name, name the objects and comprehend simple commands. But unable to do simple math. Neurological examination: CN II : Pupils: equal, round, reactive to light. Not able to focus for field testing CN III, IV and : Extra ocular muscle movements intact with no nystagmus. CN V: facial sensation is intact. CN VII: Facial movement and sensation full and symmetric CN VIII: Hearing intact to finger rub bilaterally CN IX and X: Symmetric palatal elevation. CN XI: Sternocleidomastoid strength intact CN XII: Tongue midline Motor : Increased muscle tone over bilateral arm. Dyspraxic arm movement was noted. Spontaneous limb movement with upper extremities (3/5) strength and (2/5) over lower extremities No pronator drift. Muscle stretch reflexes Bi BR Pat Ank R 2+ 2+ 3+ 3+ L 2+ 2+ 3+ 3+ Sensory: Sensation intact to pin prick. Gait and cerebellar testing: Wheel chair dependent Coordination is intact to finger to nose testing. ASSESSMENT AND PLAN #1 Drug resistant epilepsy #2 History of developmental delay #3 Cervical cord stenosis and myelomalacia s/p corrective surgery, wheel chair dependent #4 Polypharmacy with ASD Had lengthy discussion with patients sister and caregiver explaining the drug resistant nature of epilepsy and he is already on polypharmacy ASD therapy. His VNS therapy was adjusted today. ASD were maintained today. In future, we could replace Phenobarb or Dilantin with Xcopri or Fycompa. Also had lengthy discussion on recognizing ictal (Bilateral tonic -clonic symptoms) and post ictal phase (non verbal vocalization. Disorientated and pushing staff away). I reviewed EMU seizure video clip with caregivers and there is concern that overnight staff at facility might be over treating post ictal phase symptoms.They are going to educate the other staff member. Follow up in 3-4 months with Kaushal and with me in 1 yr Carrie García MD [facility] Department of Neurology - Epilepsy Division [address] [place] [address] - 7th floor [place] [id number] . Total time to complete the visit : 32 minutes (EEG record review, face to face encounter and documentation) . documented in this encounter [facility] 05-07-2025 Note HPI Chief Complaint Patient presents with Nail Care nail care/DLS 12/17/24-primary care Patient is a pleasant 64-year-old male who comes in today with his caregivers for thick nails and to get his nails cut. Past Medical History: Diagnosis Date Abnormal involuntary movement Abnormal involuntary movement Alkaline phosphatase elevation Anemia Balance problem Dementia (HCC) Depression Development delay Disease of thyroid gland Disorientation Dyslipidemia Epilepsy (HCC) Fatigue General weakness Hearing loss Hyperammonemia Hyperlipidemia Hypertension Injury of head Intellectual disability Lack of coordination Memory loss Recurrent falls Recurrent UTI Seizures (HCC) Sleep apnea Speech abnormality Spinal stenosis, lumbar region without neurogenic claudication Vitamin D deficiency Past Surgical History: Procedure Laterality Date CHOLECYSTECTOMY ROBOTIC XI N/A 10/24/2024 Procedure: ROBOTIC CHOLECYSTECTOMY WITH LYSIS OF ADHESION; Surgeon: Jakub Oglesby MD; Location: Main OR; Service: Gen-[employer]otics; Laterality: N/A; EXPLORATORY LAPAROTOMY 2019 EYE SURGERY Right FUSION ANTERIOR INTERBODY CERVICAL 05/26/2021 INSERTION NEUROSTIMULATOR ELECTRODE & GENERATOR CRANIAL NERVE (EG VAGUS) OPEN 08/30/2023 LEG SURGERY lower leg fracture with pin REDUCTION OPEN ORBITAL FLOOR FX W/ IMPLANT Right 06/05/2014 Social History Socioeconomic History Marital status: Single Tobacco Use Smoking status: Never Vaping Use Vaping status: Never Used Substance and Sexual Activity Alcohol use: Never Drug use: Never Social Drivers of Health Food Insecurity: No Food Insecurity (12/11/2024) Received from [facility] - Food Insecurity Worried About Running Out of Food in the Last Year: No Ran Out of Food in the Last Year: No Transportation Needs: No Transportation Needs (12/11/2024) Received from [facility] - Transportation Lack of Transportation: No Housing Stability: Not At Risk (12/11/2024) Received from [facility] - Housing/Utilities Has Housing: Yes Worried About Losing Housing: No Unable to Get Utilities: No Review of Systems Physical Exam Patient is AOx3. Linear and appropriate humor and thought process. Vascular: DP PT pulses are poorly palpable. CFT is delayed with moderate pitting edema. Skin is warm to cool proximal to distal and shiny in nature. Neuro: Blunted Babinski's is blunted. Musculoskeletal: Muscle strength is 2 out of 5. Ankle subtalar is full and pain-free. Nails left 1-3 for 5 and right foot 1-3 for 5 are thickened dystrophic and mycotic. Impression/Plan Problem List Items Addressed This Visit None Visit Diagnoses Onychomycosis - Primary Peripheral vascular disease, unspecified Patient is a pleasant 64-year-old male with peripheral arterial disease, venous insufficiency, likely onychomycosis to 10 nails. -For the mycotic portion, does require debridement in light of his arterial disease. This is to reduce his limb loss risk score. PVRs reviewed and are triphasic therefore no vascular intervention warranted at this time Sharply debrided and debulk in height and length 10 onychomycotic nails hide at length with a sharp pair of nail nippers consistent with a q8 modifier. Okay to discontinue Penlac Low medical complexity decision making. Follow-up in 3 months for nail care. AUTHENTICATED BY DANNY TORRES JR., ON 05/07/2025 11:51:01 [facility] 05-07-2025 History of Present illness Narrative HPI Chief Complaint Patient presents with Nail Care nail care/DLS 12/17/24-primary care Patient is a pleasant 64-year-old male who comes in today with his caregivers for thick nails and to get his nails cut. Past Medical History: Diagnosis Date Abnormal involuntary movement Abnormal involuntary movement Alkaline phosphatase elevation Anemia Balance problem Dementia (HCC) Depression Development delay Disease of thyroid gland Disorientation Dyslipidemia Epilepsy (HCC) Fatigue General weakness Hearing loss Hyperammonemia Hyperlipidemia Hypertension Injury of head Intellectual disability Lack of coordination Memory loss Recurrent falls Recurrent UTI Seizures (HCC) Sleep apnea Speech abnormality Spinal stenosis, lumbar region without neurogenic claudication Vitamin D deficiency Past Surgical History: Procedure Laterality Date CHOLECYSTECTOMY ROBOTIC XI N/A 10/24/2024 Procedure: ROBOTIC CHOLECYSTECTOMY WITH LYSIS OF ADHESION; Surgeon: Jakub Oglesby MD; Location: Main OR; Service: Gen-Robotics; Laterality: N/A; EXPLORATORY LAPAROTOMY 2019 EYE SURGERY Right FUSION ANTERIOR INTERBODY CERVICAL 05/26/2021 INSERTION NEUROSTIMULATOR ELECTRODE & GENERATOR CRANIAL NERVE (EG VAGUS) OPEN 08/30/2023 LEG SURGERY lower leg fracture with pin REDUCTION OPEN ORBITAL FLOOR FX W/ IMPLANT Right 06/05/2014 Social History Socioeconomic History Marital status: Single Tobacco Use Smoking status: Never Vaping Use Vaping status: Never Used Substance and Sexual Activity Alcohol use: Never Drug use: Never Social Drivers of Health Food Insecurity: No Food Insecurity (12/11/2024) Received from [facility] - Food Insecurity Worried About Running Out of Food in the Last Year: No Ran Out of Food in the Last Year: No Transportation Needs: No Transportation Needs (12/11/2024) Received from [facility] - Transportation Lack of Transportation: No Housing Stability: Not At Risk (12/11/2024) Received from [facility] - Housing/Utilities Has Housing: Yes Worried About Losing Housing: No Unable to Get Utilities: No Review of Systems Physical Exam Patient is AOx3. Linear and appropriate humor and thought process. Vascular: DP PT pulses are poorly palpable. CFT is delayed with moderate pitting edema. Skin is warm to cool proximal to distal and shiny in nature. Neuro: Blunted Babinski's is blunted. Musculoskeletal: Muscle strength is 2 out of 5. Ankle subtalar is full and pain-free. Nails left 1-3 for 5 and right foot 1-3 for 5 are thickened dystrophic and mycotic. Impression/Plan Problem List Items Addressed This Visit None Visit Diagnoses Onychomycosis - Primary Peripheral vascular disease, unspecified Patient is a pleasant 64-year-old male with peripheral arterial disease, venous insufficiency, likely onychomycosis to 10 nails. -For the mycotic portion, does require debridement in light of his arterial disease. This is to reduce his limb loss risk score. PVRs reviewed and are triphasic therefore no vascular intervention warranted at this time Sharply debrided and debulk in height and length 10 onychomycotic nails hide at length with a sharp pair of nail nippers consistent with a q8 modifier. Okay to discontinue Penlac Low medical complexity decision making. Follow-up in 3 months for nail care. documented in this encounter [facility] 05-05-2025 Telephone encounter Note Last ov- 01/31/25 Next ov- 06/12/2025 [facility] 05-05-2025 Miscellaneous Notes Last ov- 01/31/25 Next ov- 06/12/2025 documented in this encounter [facility] 04-21-2025 History of Present illness Narrative Subjective Patient ID: Pancho Mcpherson is a 64 y.o. male HPI 64 y.o. male who presents for a follow-up visit with BPH. Last seen by Dr. Padilla whom noted the patient was taken off Flomax 01/24/2024. Caregiver states he gets the urge to urinate but nothing will come out. Denies dysuria. Denies hematuria. He is taking Myrbetriq but hasn't seen much change. Hx of recurrent UTI'S. Methenamine BID for frequent UTI's. Most recent PSA was 1.16 on 01/04. Prior PSA was 1.00 on 02/03. Today, he reports reports incomplete bladder emptying. Review of Systems All systems were reviewed. Anything negative was noted in the HPI. Objective Physical Exam General: Well developed, well nourished, alert and cooperative, appears in no acute distress Eyes: Non-injected conjunctiva, sclera clear, no proptosis Cardiac: Extremities are warm and well perfused. No edema, cyanosis or pallor Lungs: Breathing is easy, non-labored. Speaking in clear and complete sentences. Normal diaphragmatic movement MSK: Ambulatory with steady gait, unassisted Neuro: Alert and oriented to person, place, and time Psych: Demonstrates good judgment and reason, without hallucinations, abnormal affect or abnormal behaviors Skin: No obvious lesions, no rashes No CVA tenderness bilaterally No suprapubic pain or discomfort Medical History[1] Surgical History[2] Assessment/Plan LUTS, BPH 64 y.o. male who presents for the above condition, Today, we had a very long and extensive discussion with the patient regarding the pathophysiology, differential diagnosis, risk factor, associated condition, diagnostic work-up and management of BPH and lower urinary tract symptoms and acute urinary retention. I discussed with the patient the need to check his PSA to assess his prostate cancer risk. We discussed at length the mechanism of action, risk, benefit, adverse events and side effect of alpha-arnulfo in the form of tamsulosin 0.4 mg p.o nightly and proscar 5mg daily . We discussed in particular the risk of hypotension, lightheadedness, dizziness, and the risk of fall and bone fracture. Also discussed retrograde ejaculation of the side effects of the medication. We had another discussion with the patient regarding lifestyle modifications including low fluid intake after 5 PM, timed voiding every 2 hours, and decrease caffeine intake. I discussed with the patient that in case he had an elevated PSA, we will proceed do an MRI of the prostate. Plan: - Flomax 0.4mg and Proscar 5mg daily - fu in 6 months E&M visit today is associated with current or anticipated ongoing medical care services related to a patient's single, serious condition or a complex condition. 04/21/2025 Scribe Attestation By signing my name below, I, Rachel Nichols attest that this documentation has been prepared under the direction and in the presence of Dr. Nidia Crain. [1] Past Medical History: Diagnosis Date Hypothyroidism Sleep apnea Spinal stenosis [2] No past surgical history on file. documented in this encounter [facility] Work Phone: 03-24-2025 Telephone encounter Note folic acid (FOLVITE) 1 MG tablet Last ov 03/12/25 Next ov 06/12/25 [facility] 03-24-2025 Miscellaneous Notes folic acid (FOLVITE) 1 MG tablet Last ov 03/12/25 Next ov 06/12/25 documented in this encounter [facility] 01-31-2025 Note HPI Chief Complaint Patient presents with Nail Care Patient is a pleasant 64-year-old male who comes in today with his caregivers for thick nails and to get his nails cut. Past Medical History: Diagnosis Date Balance problem Depression Disease of thyroid gland Disorientation Fatigue Hearing loss Hyperlipidemia Lack of coordination Memory loss Seizures (HCC) Speech abnormality Past Surgical History: Procedure Laterality Date CHOLECYSTECTOMY ROBOTIC XI N/A 10/24/2024 Procedure: ROBOTIC CHOLECYSTECTOMY WITH LYSIS OF ADHESION; Surgeon: Jakub Oglesby MD; Location: Main OR; Service: Gen-Robotics; Laterality: N/A; Social History Socioeconomic History Marital status: Single Tobacco Use Smoking status: Never Vaping Use Vaping status: Never Used Substance and Sexual Activity Alcohol use: Never Drug use: Never Social Drivers of Health Food Insecurity: No Food Insecurity (12/11/2024) Received from [facility] - Food Insecurity Worried About Running Out of Food in the Last Year: No Ran Out of Food in the Last Year: No Transportation Needs: No Transportation Needs (12/11/2024) Received from [facility] - Transportation Lack of Transportation: No Housing Stability: Not At Risk (12/11/2024) Received from [facility] - Housing/Utilities Has Housing: Yes Worried About Losing Housing: No Unable to Get Utilities: No Review of Systems Physical Exam Patient is AOx3. Linear and appropriate humor and thought process. Vascular: DP PT pulses are poorly palpable. CFT is delayed with moderate pitting edema. Skin is warm to cool proximal to distal and shiny in nature. Neuro: Blunted Babinski's is blunted. Musculoskeletal: Muscle strength is 2 out of 5. Ankle subtalar is full and pain-free. Nails left 1-3 for 5 and right foot 1-3 for 5 are thickened dystrophic and mycotic. Impression/Plan Problem List Items Addressed This Visit None Visit Diagnoses Onychomycosis - Primary Peripheral vascular disease, unspecified Patient is a pleasant 64-year-old male with peripheral arterial disease, venous insufficiency, likely onychomycosis to 10 nails. -For the mycotic portion, does require debridement in light of his arterial disease. This is to reduce his limb loss risk score. PVRs reviewed and are triphasic therefore no vascular intervention warranted at this time Sharply debrided and debulk in height and length 10 onychomycotic nails hide at length with a sharp pair of nail nippers consistent with a q8 modifier. Okay to discontinue Penlac Low medical complexity decision making. Follow-up in 3 months for nail care. AUTHENTICATED BY DANNY TORRES JR., ON 01/31/2025 10:35:36 [facility] 01-31-2025 History of Present illness Narrative HPI Chief Complaint Patient presents with Nail Care Patient is a pleasant 64-year-old male who comes in today with his caregivers for thick nails and to get his nails cut. Past Medical History: Diagnosis Date Balance problem Depression Disease of thyroid gland Disorientation Fatigue Hearing loss Hyperlipidemia Lack of coordination Memory loss Seizures (HCC) Speech abnormality Past Surgical History: Procedure Laterality Date CHOLECYSTECTOMY ROBOTIC XI N/A 10/24/2024 Procedure: ROBOTIC CHOLECYSTECTOMY WITH LYSIS OF ADHESION; Surgeon: Jakub Oglesby MD; [place]; Service: Gen-Robotics; Laterality: N/A; Social History Socioeconomic History Marital status: Single Tobacco Use Smoking status: Never Vaping Use Vaping status: Never Used Substance and Sexual Activity Alcohol use: Never Drug use: Never Social Drivers of Health Food Insecurity: No Food Insecurity (12/11/2024) Received from [facility] - Food Insecurity Worried About Running Out of Food in the Last Year: No Ran Out of Food in the Last Year: No Transportation Needs: No Transportation Needs (12/11/2024) Received from [facility] - Transportation Lack of Transportation: No Housing Stability: Not At Risk (12/11/2024) Received from [facility] - Housing/Utilities Has Housing: Yes Worried About Losing Housing: No Unable to Get Utilities: No Review of Systems Physical Exam Patient is AOx3. Linear and appropriate humor and thought process. Vascular: DP PT pulses are poorly palpable. CFT is delayed with moderate pitting edema. Skin is warm to cool proximal to distal and shiny in nature. Neuro: Blunted Babinski's is blunted. Musculoskeletal: Muscle strength is 2 out of 5. Ankle subtalar is full and pain-free. Nails left 1-3 for 5 and right foot 1-3 for 5 are thickened dystrophic and mycotic. Impression/Plan Problem List Items Addressed This Visit None Visit Diagnoses Onychomycosis - Primary Peripheral vascular disease, unspecified Patient is a pleasant 64-year-old male with peripheral arterial disease, venous insufficiency, likely onychomycosis to 10 nails. -For the mycotic portion, does require debridement in light of his arterial disease. This is to reduce his limb loss risk score. PVRs reviewed and are triphasic therefore no vascular intervention warranted at this time Sharply debrided and debulk in height and length 10 onychomycotic nails hide at length with a sharp pair of nail nippers consistent with a q8 modifier. Okay to discontinue Penlac Low medical complexity decision making. Follow-up in 3 months for nail care. documented in this encounter [facility] 12-19-2024 History of Present illness Narrative MEDICATION RECONCILIATION COMPLETED USING REM MED SHEETS. MED SHEETS TITLED ACTIVE ORDERS OF 12/06/2024. MEDICATIONS NOT LISTED ON REM LIST MARKED FOR REVIEW. documented in this encounter [facility] 12-17-2024 Telephone encounter Note PANCHO is requesting a refill for Requested Prescriptions Pending Prescriptions Disp Refills polyethylene glycol (MIRALAX) 17 gram powder 1020 g 11 Sig: Take 17 (seventeen) g by mouth 2 (two) times a day Reasons: constipation. Last refill: 12/17/2024 Last appt: 12/17/2024 Upcoming appt (when is it due or is it scheduled): Return in about 3 months (around 03/19/2025) for Follow Up chronic conditions. Follow up: Refill pending for review without additional follow up based on information above. [facility] 12-17-2024 Miscellaneous Notes PANCHO is requesting a refill for Requested Prescriptions Pending Prescriptions Disp Refills polyethylene glycol (MIRALAX) 17 gram powder 1020 g 11 Sig: Take 17 (seventeen) g by mouth 2 (two) times a day Reasons: constipation. Last refill: 12/17/2024 Last appt: 12/17/2024 Upcoming appt (when is it due or is it scheduled): Return in about 3 months (around 03/19/2025) for Follow Up chronic conditions. Follow up: Refill pending for review without additional follow up based on information above. documented in this encounter [facility] 12-17-2024 Note (Please note that th is note was predominantly written using a combination of an AI-based voice recognition software and Dragon dictation. The voice recognition software is inherently subject to errors including those of syntax and sound-alike substitutions which may escape proofreading efforts. In such instances, original meaning may be extrapolated by contextual derivation. Please reach out for any clarification.) Assessment & Plan Assessment & Plan 1. 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 - Difficult behaviors at home or intermediate. Plan: - Discuss with Dr. Buckley for further management; she is considering switching to long-acting Seroquel and Zoloft. Discuss PRNs. 2. Refractory epilepsy - Following with neurology on Vimpat 250 mg twice daily, phenobarbital, phenytoin, Keppra 2000 mg twice daily, and Klonopin at bedtime. - Recent stay in epilepsy monitoring unit; awaiting neurology recommendations. 3. Status post cholecystectomy - Gallbladder removed on 10/24/2024, doing well. Plan: - Bowel issues likely due to constipation. 4. Chronic constipation Plan: - Increase MiraLAX to twice daily. - Continue senna/docusate. - Monitor response before further intervention. 5. Hemorrhoids Plan: - Continue pramoxine cream. - Extra MiraLAX may help. 6. Gastroesophageal reflux disease Plan: - Taking famotidine for GERD. - Address vomiting episodes if constipation is managed. 7. Obstructive sleep apnea - Nocturnal hypoxemia in hospital during sleep. Plan: - CPAP will help; no additional oxygen needed. 8. Hypertension - Blood pressure controlled on metoprolol. Plan: - No need for frequent checks. 9. Hyperlipidemia - LDL goal <100. Plan: - Atorvastatin 10 mg controlling well; last LDL 50. 10. Acquired hypothyroidism - On 237 mcg Synthroid. - Last TSH well controlled in the twos. Plan: - No medication changes needed. Follow-up: Follow-up in 3 months. 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 Hemorrhoids, unspecified hemorrhoid type Gastroesophageal reflux disease, unspecified whether esophagitis present JAIME on CPAP Hypertension goal BP (blood pressure) < 140/90 - Comprehensive Metabolic Panel; Future Hyperlipidemia LDL goal <100 Acquired hypothyroidism Healthcare maintenance - T-Spot TB Screen; Future - Comprehensive Metabolic Panel; Future - PSA, Screen; Future - HIV 1/2 Screen (4th Generation); Future - Hepatitis C Ab with Reflex to HCV Virus Quantitation; Future Tuberculosis screening - T-Spot TB Screen; Future Screening for malignant neoplasm of prostate - PSA, Screen; Future Screening for HIV (human immunodeficiency virus) - HIV 1/2 Screen (4th Generation); Future Need for hepatitis C screening test - Hepatitis C Ab with Reflex to HCV Virus Quantitation; Future Other orders - SCAN OTHER ORDERS For any new medications prescribed today, patient was educated about indications for the medication, how to take the medication, and potential side effects of the medication. My ongoing relationship with Pancho Mcpherson requires continued responsibility and cognitive effort of being the focal point for all services related to chronic condition(s). *Total encounter time today was >40 minutes. This time includes review of past tests/notes, obtaining patient history, performing a medically necessary exam, counseling the patient, ordering tests/procedures/medications, documentation, and care coordination. Return in about 3 months (around 03/19/2025) for Follow Up chronic conditions. Mahamed Neri DO, MS Family Medicine, Osteopathic Manipulative Medicine, and Hospital Medicine [facility] 12/17/2024 Subjective Chief Complaint Patient presents with Follow-up HPI: After discussing the use of ambient listening and audio recording in generating medical documentation, the patient verbally consented to use of this technology for today's visit. History of Present Illness The patient is a 64-year-old male here for follow-up on general medical conditions, accompanied by aids from his intermediate. He reports no recent issues with oxygen at home. He completed a home study without the need for nighttime oxygen and continues to use his CPAP machine. Post-surgery, he required continuous oxygen in the hospital. He underwent a cholecystectomy on 10/24/2024 and was discharged without antibiotics. He reports occasional abdomina (more content not included)... [facility] 12-17-2024 History of Present illness Narrative (Please note that this note was predominantly written using a combination of an AI-based voice recognition software and Dragon dictation. The voice recognition software is inherently subject to errors including those of syntax and sound-alike substitutions which may escape proofreading efforts. In such instances, original meaning may be extrapolated by contextual derivation. Please reach out for any clarification.) Assessment & Plan Assessment & Plan 1. 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 - Difficult behaviors at home or intermediate. Plan: - Discuss with Dr. Buckley for further management; she is considering switching to long-acting Seroquel and Zoloft. Discuss PRNs. 2. Refractory epilepsy - Following with neurology on Vimpat 250 mg twice daily, phenobarbital, phenytoin, Keppra 2000 mg twice daily, and Klonopin at bedtime. - Recent stay in epilepsy monitoring unit; awaiting neurology recommendations. 3. Status post cholecystectomy - Gallbladder removed on 10/24/2024, doing well. Plan: - Bowel issues likely due to constipation. 4. Chronic constipation Plan: - Increase MiraLAX to twice daily. - Continue senna/docusate. - Monitor response before further intervention. 5. Hemorrhoids Plan: - Continue pramoxine cream. - Extra MiraLAX may help. 6. Gastroesophageal reflux disease Plan: - Taking famotidine for GERD. - Address vomiting episodes if constipation is managed. 7. Obstructive sleep apnea - Nocturnal hypoxemia in hospital during sleep. Plan: - CPAP will help; no additional oxygen needed. 8. Hypertension - Blood pressure controlled on metoprolol. Plan: - No need for frequent checks. 9. Hyperlipidemia - LDL goal <100. Plan: - Atorvastatin 10 mg controlling well; last LDL 50. 10. Acquired hypothyroidism - On 237 mcg Synthroid. - Last TSH well controlled in the twos. Plan: - No medication changes needed. Follow-up: Follow-up in 3 months. 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 Hemorrhoids, unspecified hemorrhoid type Gastroesophageal reflux disease, unspecified whether esophagitis present JAIME on CPAP Hypertension goal BP (blood pressure) < 140/90 - Comprehensive Metabolic Panel; Future Hyperlipidemia LDL goal <100 Acquired hypothyroidism Healthcare maintenance - T-Spot TB Screen; Future - Comprehensive Metabolic Panel; Future - PSA, Screen; Future - HIV 1/2 Screen (4th Generation); Future - Hepatitis C Ab with Reflex to HCV Virus Quantitation; Future Tuberculosis screening - T-Spot TB Screen; Future Screening for malignant neoplasm of prostate - PSA, Screen; Future Screening for HIV (human immunodeficiency virus) - HIV 1/2 Screen (4th Generation); Future Need for hepatitis C screening test - Hepatitis C Ab with Reflex to HCV Virus Quantitation; Future Other orders - SCAN OTHER ORDERS For any new medications prescribed today, patient was educated about indications for the medication, how to take the medication, and potential side effects of the medication. My ongoing relationship with Pancho Mcpherson requires continued responsibility and cognitive effort of being the focal point for all services related to chronic condition(s). *Total encounter time today was >40 minutes. This time includes review of past tests/notes, obtaining patient history, performing a medically necessary exam, counseling the patient, ordering tests/procedures/medications, documentation, and care coordination. Return in about 3 months (around 03/19/2025) for Follow Up chronic conditions. Mahamed Neri DO, MS Family Medicine, Osteopathic Manipulative Medicine, and Hospital Medicine [facility] 12/17/2024 Subjective Chief Complaint Patient presents with Follow-up HPI: After discussing the use of ambient listening and audio recording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 Normal insight into condition. Speech/language: fluent; comprehension intact Cranial nerves: CN II-CN XII grossly intact Motor: Normal bulk and increased tone in BLE. Able to lift BUE antigravity, LLE antigravity briskly. Able to lift RLE antigravity for 1 second with effort. Sensation: Grossly intact to light touch throughout. Gait: Deferred. Data Review Labs Na/K+/Phos/Mg/Ca: 139/3.9/--/1.9/8.9 (12/11 1844) Bun/Creat/Cl/CO2/Glucose: 13/0.66/101/27/134 (12/11 1844) WBC/Hgb/Hct/Plts: 8.21/14.5/43.6/239 (12/11 1634-12/12 0013) Lab Results Component Value Date ALT 20 12/11/2024 AST 15 12/11/2024 ALKPHOS 103 12/11/2024 BILITOTAL 0.2 12/11/2024 BILIDIRECT 0.1 12/11/2024 AED levels: Lab Results Component Value Date PHENYTOIN 8.1 (L) 12/11/2024 PHENOBARBITA 30.6 12/11/2024 Imaging and Diagnostic studies No orders to display Assessment and Plan Pancho Mcpherson is a 64 y.o. left handed male with a past medical history significant for Developmental delay, HTN, HLD, Hypothyroidism, Intractable epilepsy s/p VNS, Mental retardation, Recurrent UTI, JAIME, and Cervical spinal stenosis who presents for spell capture and medication adjustments. His neurologic examination is remarkable for bilateral lower extremity spasticity and RLE weakness, which localizes to his prior diagnosed spinal stenosis s/p fusion. Labs are pending. Brain imaging revealed no acute findings, but with bilateral and diffuse microhemorrhages and chronic microvascular disease. Semiology appears consistent with generalized onset seizure vs possible focal to generalized tonic clonic. Appears baseline seizures were well stereotyped with ictal cry, bilateral arm contractures followed by clonic movements. Previously happening 2-3 times a month, can be associated with post-ictal agitation that is controlled at his intermediate by leaving him alone per awning hanger helper and letting him sleep. Has required restrains in past for intermittent agitation (outside of seizures) per chart review. The description of his new event semiology is less concerning with an epileptic etiology (bilateral arms reached forward, head directly forward, pushes staff away when approached). May either be a post-ictal confusion/agitation state after a nocturnal/unwitnessed seizure vs PNEE. Given semiology, the differential diagnosis includes focal epilepsy vs generalized epilepsy vs PNEE. Discussed with outpatient epilepsy provider, with events concerning for seizures occurring less frequently s/p cholecystectomy and initiation of nocturnal O2, will plan to continue current AED regimen and attempt to capture sleep architecture/seizure events. Spell characterization: - Admit to EMU - EEG with video - IV ativan PRN (see seizure action plan below) - Home ASDs: - levetiracetam (Keppra) XR 2g qhs - phenobarbital 48.6mg qAM/PM, 64.8 at bedtime - phenytoin (Dilantin) ER 300mg at bedtime - Lacosamide 250mg bid - Clonazepam 1mg at bedtime - EMU ASD plan: - Continue levetiracetam (Keppra) 2g bid - Continue phenobarbital 48.6mg qAM/PM, 64.8 at bedtime - Continue phenytoin (Dilantin) ER 300mg at bedtime - Continue Lacosamide 250mg bid - Continue Clonazepam 1mg at bedtime - Provoking maneuvers: none Post Ictal Confusion: Yes If so, plan? Redirect Pancho and reduce stimuli in room Post Ictal Agitation: Yes If so, plan? Redirect, allow to sleep, soft wrist restraints if necessary Post Ictal Psychosis: No If so, plan? [x] vEEG/EMU consent signed SEIZURE ACTION PLAN: NURSING STAFF: ADMINISTER LORAZEPAM FIRST - if patient has 2 focal with impaired awareness (FIAS) seizures in a 24 hour period or 1 focal to bilateral tonic clonic (FBTC) or generalized tonic clonic convulsive (GTC) seizures. Please notify DERREK/EMU resident first during the day or LTM attending at night if patient has 1 focal to bilateral tonic clonic seizure (PLEASE REFER TO RAYMONDA TO SEE WHO EMU/LTM ATTENDING IS) Other medical conditions JAIME Concern for improper CPAP seal at home. Otherwise compliant with home CPAP nightly. - Continue nocturnal CPAP - 2L CPAP while sleeping (28% FiO2) - Discussed with respiratory therapy for home CPAP mask assessment - Patient will require outpatient assessment by his CPAP company ([employer]) for changes to his home mask, unable to complete inpatient. - Home CPAP at bedside - Home albuterol prn wheezing - Home budesonide prn wheezing HLD - Home Lipitor 10mg daily GERD - Home Pepcid 20mg bid - Home Calcium Carbonate 500mg bid Hypothyroidism - Home Levothyroxine 237.5mcg daily Recurrent UTI - Home Methenamine Hippurate 1g bid MDD/RUMA Agitation Previously associated with intermittent agitation. Has required soft restraints in past, but does not appear always associated with post-ictal agitation. Usually easily redirectable per awning hanger helper, but - Home Paroxetine 50mg daily - Home Seroquel 75mg qAM, 25mg qPM, 250mg at bedtime - Low threshold for bedside sitter if patient frustrated or tries to leave bed. Diet: DIET REGULAR Code Status: Full Code DVT prophylaxis: subcutaneous lovenox Plan of care discussed with EMU attending, Dr. Jim. Signed, Sim Maher MD PGY-2 Department of Neurology Pager [phone] Cosigned by Mya Jim MD at 12/12/2024 4:09 PM EDT Associated attestation - Mya Jim MD - 12/12/2024 4:09 PM EDT Attending Physician Note (GC) I interviewed and examined this patient with the resident. I reviewed the history and exam detailed in the note. I agree with the medical decision making and plan, Baldo Jim MD, MSE Maintenance Machine Repairer of Neurology Department of Neurology - Epilepsy Division [facility] Video-EEG MONITORING STUDY (Day #1) INDICATION: This EEG study was requested to confirm patient's diagnosis by characterizing their habitual spells both semiologically and electrographically. HISTORY: 64 y.o. left handed male with a past medical history significant for Developmental delay, HTN, HLD, Hypothyroidism, Intractable epilepsy s/p VNS, Mental retardation, Recurrent UTI, JAIME, and Cervical spinal stenosis who presents for spell capture and medication adjustments. His spells/events began 6 months, febrile. Aura: none. Typical event consists of loud vocalization, limb stiffening and unresponsiveness for a minute followed by confusion/fatigue. Originally occurring 2-3 times per month. Historically difficult to manage seizures on multiple AEDs RECORDING: STUDY START: 11:00 on 12/11/24 REVIEW START: 11:00 on 12/11/24 REVIEW STOP: 11:00 on 12/12/24 TECHNIQUE: This is an epilepsy monitoring study with 21 channel video-EEG of good technical quality obtained using scalp applied electrodes in the International 10-20 system of electrode placement. One channel was reserved for EKG monitoring. Recording was performed referentially and re-montaged for optimal review. This study was continuously monitored during recording. FINDINGS: 1. Background: The background is continuous with a low amplitude somewhat well-formed no unequivocal posterior dominant rhythm. The anterior background demonstrates mild diffuse slowing with excess 5-6 Hz moderate amplitude theta. 2. Focal Abnormalities: There are no focal or lateralized abnormalities noted in the background. 3. Interictal Abnormalities: No epileptiform discharges are noted in the recording. 4. Ictal Abnormalities: No electrographic seizures are noted in the recording. 5. Clinical Events: No clinical events are noted in review of the video. 6. HV: Hyperventilation was not performed. 7. PS: Photic stimulation produced a minimal normal driving response. 8. Sleep: Normal awake, drowsy, and asleep states are noted in the recording. 9. EKG: A one-channel EKG was recorded primarily for artifact assessment. IMPRESSION: This is an abnormal inpatient video-EEG monitoring study. No focal, lateralized, or epileptiform abnormalities, and no clinical spells are noted in the recording. CLINICAL CORRELATION: This pattern provides no support for a seizure etiology of the patients habitual seizure-like spells. This Video-EEG study will continue in an attempt to record these events. Clinical correlation is advised. Baldo Jim MD, [facility] Maintenance Machine Repairer of Neurology Department of Neurology - Epilepsy Division [facility] Discharge Planning Assessment Is the patient able to participate in the assessment?: Yes Care Management Plan CM to see patient at bedside, along with guardian, nurse and professional healthcare representative from [facility]. Patient to identify name and date of . Patient agreeable to complete Initial Assessment (IA), and states he does not need any resources at this time. Patient lives in a intermediate with six other individuals, that has 24/ supervision and daily nurse visits. [facility] is planning to transport home in an adapted van, and cannot transport on the weekend. Initial Discharge Planning Expected Discharge Disposition: Home (intermediate) Transportation Available for Discharge: Agency Transport (intermediate adapted van) Anticipated DME: unknown at this time Patient Assessment Completed: Initial Legal Next of Kin Does the patient have a Guardian?: Yes Name and Contact information: Sherly [place]/ Spouse: No Adult Child(galen), List All Adult Children: No Parent(s) - List All Living Parents: No Adult Sibling(s), List All Adult Siblings: Yes Name and Contact information: Sherly Mcpherson/ Would you like to add additional adult siblings?: No Advanced Care Planning Has the patient completed Advance Directives?: Completed, Available in Medical Record Reviewed for accuracy with patient?: Unable to Verify Medication Management Does the patient have prescription insurance coverage? : Yes Is the patient on Anticoagulation? : No [facility] [place] [address] [address] [facility] [address] [facility] [address] Living Environment and Support System Is the patient from a facility or intermediate?: Yes Living Environment: House Patient Caregiving Responsibilities: Self Patient-identified caregiver/support network: Other ([facility] Staff) Who does the patient identify as a teachable caregiver(s)?: Other ([facility] Staff) Services Does the patient use a home health or hospice agency?: No Current with dialysis?: No Does the patient use any community programs or services?: Yes Does the patient have a Tactical Debriefer Officer or Forgeman Helper?: Yes Tactical Debriefer Officer or Forgeman Helper Agency, Name and Contact: social welfare administrator Would you like to add additional Community Computer Systems Manager or Social Workers?: No Does patient use DME? : wheelchair, hospital bed DME provider name and contact: intermediate Would you like to add additional DME providers?: No Does the patient use oxygen?: No Does patient use medical supplies? : none Anticipated Changes Related to Illness/Injury? : Unknown at this time Initial ADLs Prior to Arrival What is the patient's baseline physical functioning prior to this acute illness?: completely dependent What is the patient's baseline cognitive functioning prior to this acute illness?: completely dependent Is the patient's baseline functioning changed by this acute illness? : No Concerns with patient being able to care for themselves at home? : No Leather Tooler Does the patient or professional healthcare representative express financial concerns? : No KYRA Gonzalez, RN Clinical Steam Blocker Available by secure chat. documented in this encounter [facility] 12-13-2024 Plan of care note Problem: Adult Inpatient Plan of Care Goal: Plan of Care Review Outcome: Adequate for Discharge Goal: Patient-Specific Goal (Individualized) Outcome: Adequate for Discharge Goal: Absence of Hospital-Acquired Illness or Injury Outcome: Adequate for Discharge Goal: Optimal Comfort and Wellbeing Outcome: Adequate for Discharge Goal: Readiness for Transition of Care Outcome: Adequate for Discharge [facility] 12-13-2024 Miscellaneous Notes Problem: Adult Inpatient Plan of Care Goal: Plan of Care Review Outcome: Adequate for Discharge Goal: Patient-Specific Goal (Individualized) Outcome: Adequate for Discharge Goal: Absence of Hospital-Acquired Illness or Injury Outcome: Adequate for Discharge Goal: Optimal Comfort and Wellbeing Outcome: Adequate for Discharge Goal: Readiness for Transition of Care Outcome: Adequate for Discharge Problem: Adult Inpatient Plan of Care Goal: Plan of Care Review Outcome: Progressing Goal: Patient-Specific Goal (Individualized) Outcome: Progressing Goal: Absence of Hospital-Acquired Illness or Injury Outcome: Progressing Goal: Optimal Comfort and Wellbeing Outcome: Progressing Goal: Readiness for Transition of Care Outcome: Progressing Problem: Adult Inpatient Plan of Care Goal: Plan of Care Review Outcome: Progressing Goal: Patient-Specific Goal (Individualized) Outcome: Progressing Goal: Absence of Hospital-Acquired Illness or Injury Outcome: Progressing Goal: Optimal Comfort and Wellbeing Outcome: Progressing Goal: Readiness for Transition of Care Outcome: Progressing [facility] critical [facility] hospital dual RN initial assessment of skin condition was performed by Christy Sims RN and Airam Fuentes RN. Skin Assessment: Skin not within defined limits. Left trejo abrasion. Old scarring on abdomen. Christopher Score: 16 LDA Added:Yes Christy Sims RN documented in this encounter [facility] 12-13-2024 Hospital course Narrative Images from the original note were not included. Discharge Summary Name: Pancho Mcpherson Age: 64 y.o. Birthday: 1960 Admit Date: 12/11/2024 8:26 AM Discharge Date: 12/13/2024 Discharge Time: 11:28 AM Discharge Unit: Epilepsy Monitoring Unit/8 B& Admission Information Admitting Physician: Mya Jim MD Discharge Information Discharge Physician: Mya Jim MD DISCHARGE LETTER: Dear Providers, I recently had the opportunity to care for Pancho Mcpherson during his recent hospital stay at [facility]. As you may know, Pancho Mcpherson is a 64 y.o. male who has a past medical history of Developmental delay, Essential hypertension, benign, Hyperlipidemia, Hypothyroidism, Intractable epilepsy, Mental retardation, Prostate enlargement, Recurrent UTI, 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 who presented for admission to the EMU for spell characterization. The following describes his hospital course. Lifelong history of generalized idiopathic intractable epilepsy in setting of febrile seizure at 6 months and developmental regression as a child. Managed on Keppra 2g bid, Vimpat 250mg bid, Klonopin 1mg at bedtime, Dilantin 300mg at bedtime, Phenobarbital 48.6 qam/qpm/65.8mg at bedtime. S/p VNS implanted February 2024 with initial good seizure control following, but developed worsening frequency of breakthrough seizure-like events in late 2023. Described as primarily nocturnal events when staff would hear patient cry out/yell, find his arms extended outward, hip flexed and neck extended forwards. Follows with outpatient epilepsy provider, Kaushal Avitia, was referred for this EMU admission in 06/2024 for spell capture and medication adjustment. Concern for nocturnal hypoxia worsening seizure frequency due to improper CPAP fitting. Also concern for change in seizure semiology with less stereotyped bilateral upper extremity contractures -> GTC and now with more arm flailing as his semiology. Underwent cholecystectomy and treated for sepsis 10/22-, also started on nocturnal 2L supplemental O2. Underwent sleep study on 11/18/2024 that, per awning hanger helper, reportedly showed no nocturnal desaturation even without supplemental O2 (reports unavailable). Following hospital discharge on 10/29/2024, patient only had 1 event concerning for seizure on 11/13/2024 - described as yelling sound, found leaning forward in bed and flailing arms, swatting at staff. Was left alone and returned to sleep, appeared at his baseline in the morning. Admitted to EMU for spell capture. With his increased seizure control following cholecystectomy/nocturnal O2 supplementation, his medications were continued throughout admission without alteration. EEG showed diffuse slowing without evidence of epileptiform discharges, compatible with a diffuse encephalopathy. See formal report by Dr. Jim for further description. Regarding concerns for poor-CPAP mask fitting, patient was noticed to require frequent re-positioning of his CPAP mask overnight (which may have been secondary to his EEG leads as well). Unable to have respiratory therapy assess and change his home CPAP mask, will require [facility] outpatient professional healthcare representative to complete. Discussed with awning hanger helper. On 12/13/2024, patient did have an event of bilateral upper and lower extemity contractures, left head turning, yelling. EEG correlated with generalized rhythmic spike-wave discharges. Lasted ~80 seconds, was snoring afterwards and confused with slow return to baseline. Given 1mg ativan, started on additional klonopin of 1mg daily (with his chronic 1mg at bedtime) for planned 4 day course of bid dosing 12/14-12/17. Given return precautions to caregiver. Will follow with previously prescribed Klonopin 1mg at bedtime afterwards. Patient was discharged 12/13/2024 at baseline back to his intermediate with epilepsy follow up for medication adjustment. At time of discharge the patient was afebrile, hemodynamically stable, breathing comfortably, eating a regular diet, voiding spontaneously, having bowel movements, and ambulating without difficulty. The patient was provided verbal as well as written discharge instructions and verbalized understanding of same. The patient was provided with a list of contact names and numbers should any problems arise. RESULTS / STUDIES PENDING AT DISCHARGE: None FURTHER RECOMMENDATIONS: - We discussed driving restrictions and he is restricted. He is aware of the need to be seizure free for six months prior to driving if he experiences a breakthrough seizure with loss of consciousness or impaired awareness. He was informed of the risk of injury and associated with driving with uncontrolled seizures. He verbalized an understanding. Physical Exam on the Date of Discharge: Vitals: 12/13/24 0943 BP: Pulse: 64 Resp: Temp: SpO2: Wt Readings from Last 1 Encounters: 12/11/24 88.1 kg (194 lb 3.2 oz) Gen: NAD HEENT: atraumatic, chronic displacement of nasal ridge, face symmetric, EOMI, sclerae anicteric, mucous membranes moist, normal oral mucosa and dentition Resp: no visible chest wall deformities, non-labored breathing, CTAB, no wheezes/crackles/rales CV: RRR, normal S1/S2, no murmurs/rubs/gallops GI: soft, non-tender, non-distended, NABS, no rebound or guarding Ext: warm and well perfused, pulses intact, no LE edema, no clubbing or cyanosis Skin: intact, no rashes/bruises/ulcers Neuro: A&Ox4, speech fluent but delayed, CN II-XII grossly intact, strength 5/5 in b/l UE and LLE, 4/5 strength in RLE. sensation grossly intact throughout, reflexes symmetric and wnl, coordination intact Body mass index is 27.24 kg/m . At the time of discharge the patient's mental status was appropriate, alert and oriented. Upon discharge the patient's code status was full It has been my pleasure participating in this patient's care. Please contact me with any questions or concerns regarding his hospital stay. Sim Maher MD I have discussed this patient with the EMU attending, Mya Jim MD CONSULTS DURING ADMISSION: IP CONSULT TO PHARMACY BEDSIDE DISCHARGE MED DELIVERY IMAGING / PROCEDURES / RESULTS: No orders to display Should you require further information or copies of results or reports please contact [employer] @ [phone] LABS AT TIME OF DISCHARGE: Lab Results Component Value Date SODIUM 139 12/11/2024 POTASSIUM 3.9 12/11/2024 MAGNESIUM 1.9 12/11/2024 BUN 13 12/11/2024 CREATSERUM 0.66 (L) 12/11/2024 Lab Results Component Value Date WBC 8.21 12/11/2024 HGB 14.5 12/11/2024 PLATELET 239 12/12/2024 INR 1.0 08/16/2023 Lab Results Component Value Date HGBA1C 5.5 10/10/2024 Lab Results Component Value Date PHENYTOIN 8.1 (L) 12/11/2024 PHENOBARBITA 30.6 12/11/2024 YLACO 6.6 12/11/2024 LEVETIRACETA 45.6 (H) 12/11/2024 PATIENT'S MEDICAL HOME AT DISCHARGE: [facility] [address] [id number] MEDICATIONS: Current Outpatient Meds: Medication List for when you go home CHANGE how you take these medications Morning Afternoon Evening Bedtime As Needed * clonazePAM 1 MG TABS Take 1 tablet by mouth at bedtime. Commonly known as: KLONOPIN For diagnoses: Seizure disorder What changed: Another medication with the same name was added. Make sure you understand how and when to take each. Last time this was given: Ask your nurse or doctor 1 tablet * clonazePAM 1 MG TABS Take 1 tablet by mouth daily for 4 days. Commonly known as: KlonoPIN For diagnoses: Generalized idiopathic epilepsy and epileptic syndromes, intractable, without status epilepticus What changed: You were already taking a medication with the same name, and this prescription was added. Make sure you understand how and when to take each. Last time this was given: Ask your nurse or doctor Start taking on: December 14, 2024 1 tablet cyanocobalamin 500 MCG TABS Take 2 tablets by mouth daily. Commonly known as: VITAMIN B12 What changed: How often you have reported taking this medication has changed Last time this was given: 1,000 mcg on December 13, 2024 9:12 AM 2 tablets * The same medication is listed twice. Please discuss with your provider. CONTINUE taking these medications Morning Afternoon Evening Bedtime As Needed Acetaminophen 325 MG tablet Take 2 tablets by mouth 2 times daily. Commonly known as: TYLENOL 2 tablets 2 tablets Albuterol sulfate 2.5 MG/0.5ML NEBU inhalation solution Take 0.5 mL by nebulization every 6 hours as needed for Shortness of Breath, Respiratory Distress or Wheezing. Commonly known as: PROVENTIL 0.5 mL Atorvastatin 10 MG TABS Take 1 tablet by mouth daily every morning. Commonly known as: LIPITOR Last time this was given: 10 mg on December 13, 2024 9:14 AM 1 tablet budesonide 0.5 MG/2ML nebulizer suspension Inhale 2 mL 3 times daily as needed for Other (Wheezing). Commonly known as: PULMICORT 2 mL Nils-Gest Antacid 500 MG CHEW tablet Chew 1 tablet 2 times daily. Last time this was given: Ask your nurse or doctor Generic drug: calcium carbonate 1 tablet 1 tablet faMOTIdine 20 MG TABS Take 1 tablet by mouth 2 times daily. Before meals Commonly known as: PEPCID Last time this was given: 20 mg on December 13, 2024 9:14 AM 1 tablet 1 tablet Folic acid 1 MG TABS Take 1 tablet by mouth daily every morning. Commonly known as: FOLVITE Last time this was given: 1 mg on December 13, 2024 9:14 AM 1 tablet * Lacosamide 200 MG TABS Take 1 tablet by mouth every 12 hours. Commonly known as: Vimpat For diagnoses: Focal epilepsy Last time this was given: Ask your nurse or doctor 1 tablet 1 tablet * Lacosamide 50 MG TABS Take 1 tablet by mouth every 12 hours. Commonly known as: VIMPAT For diagnoses: Focal epilepsy Last time this was given: Ask your nurse or doctor 1 tablet 1 tablet levETIRAcetam 500 MG tab XL Take 4 tablets by mouth 2 times daily. Commonly known as: KEPPRA XR For diagnoses: Generalized idiopathic epilepsy and epileptic syndromes, intractable, without status epilepticus Last time this was given: 2,000 mg on December 13, 2024 10:35 AM 4 tablets 4 tablets * levothyroxine 137 MCG TABS Take 1 tablet by mouth daily every morning. Takes with 100mcg tab for total dose of 227mcg QAM Commonly known as: SYNTHROID Last time this was given: Ask your nurse or doctor 1 tablet * Levothyroxine 100 MCG TABS Take 1 tablet by mouth every morning before breakfast. Takes with 137mcg for total dose of 227mcg QAM Commonly known as: SYNTHROID Last time this was given: Ask your nurse or doctor 1 tablet Methenamine Hippurate 1 g TABS tablet Take 1 tablet by mouth 2 times daily. Commonly known as: HIPREX Last time this was given: 1 g on December 13, 2024 9:15 AM 1 tablet 1 tablet Metoprolol succinate 25 MG tablet XL Take 1 tablet by mouth daily. Commonly known as: TOPROL-XL Last time this was given: 25 mg on December 13, 2024 9:14 AM 1 tablet * PARoxetine 10 MG TABS Take 1 tablet by mouth daily every morning. Takes with 40mg for Total dose 50mg QAM Commonly known as: PAXIL For diagnoses: Depression, unspecified depression type Last time this was given: Ask your nurse or doctor 1 tablet * PARoxetine 40 MG TABS Take 1 tablet by mouth daily every morning. Total dose 50mg Commonly known as: PAXIL Last time this was given: Ask your nurse or doctor 1 tablet * PHENobarbital 32.4 MG TABS 1 tab po in AM, 1 tab at 1pm, and two tabs at bedtime (7 am,1 pm, 7pm) For diagnoses: Focal epilepsy Last time this was given: Ask your nurse or doctor 1 tab po in AM, 1 tab at 1pm, and two tabs at bedtime (7 am,1 pm, 7pm) * PHENobarbital 16.2 MG TABS Take 1 tablet by mouth 2 times daily. (7 am and 1 pm with 32.4 mg tablets) For diagnoses: Focal epilepsy Last time this was given: Ask your nurse or doctor 1 tablet 1 tablet Phenytoin extended 100 MG CAPS Take 3 capsules by mouth at bedtime. Commonly known as: DILANTIN For diagnoses: Focal epilepsy Last time this was given: 300 mg on December 12, 2024 8:25 PM 3 capsules Polyethylene glycol 17 g PACK packet Take 1 packet by mouth every evening. At 5PM Commonly known as: MIRALAX Last time this was given: 17 g on December 13, 2024 9:14 AM Take 1 packet by mouth every evening. At 5PM * quetiapine 200 MG TABS Take 1 tablet by mouth at bedtime. Total HS dose 250mg Commonly known as: SEROQUEL Last time this was given: Ask your nurse or doctor 1 tablet * QUEtiapine 50 MG TABS Take 1 tablet by mouth 2 times daily. In morning and at bedtime. Total bedtime dose 250mg Commonly known as: SEROquel Last time this was given: Ask your nurse or doctor 1 tablet 1 tablet * QUEtiapine 25 MG TABS Take 1 tablet by mouth daily. At 1PM Commonly known as: SEROquel Last time this was given: Ask your nurse or doctor 1 tablet Senna 8.6 MG TABS Take 1 tablet by mouth 2 times daily. Commonly known as: SENOKOT Last time this was given: 8.6 mg on December 13, 2024 9:14 AM 1 tablet 1 tablet Valtoco 20 MG Dose 10 MG/0.1ML LQPK Give 10 mg in ONE nostril as needed for convulsive seizure lasting 5 minutes or longer. MAX 2 DOSES IN 7 DAYS. For diagnoses: Focal epilepsy Generic drug: diazePAM (20 MG Dose) Give 10 mg in ONE nostril as needed for convulsive seizure lasting 5 minutes or longer. MAX 2 DOSES IN 7 DAYS. Vitamin D-3 25 MCG (1000 UT) CAPS Take 2 capsules by mouth daily every morning. 2 capsules * The same medication is listed twice. Please discuss with your provider. Follow-up: No follow-up provider specified. Cosigned by Mya Jmi MD at 12/13/2024 2:59 PM EDT Associated attestation - Mya Jim MD - 12/13/2024 2:59 PM EDT Attending Physician Note (GC) I interviewed and examined this patient with the resident. I reviewed the history and exam detailed in the note. I agree with the medical decision making with the plan. A single seizure event was noted to be 39 seconds in duration anf generalized from onset. The patient's caregivers made it clear that there would be no transportation available on the weekend and so the patent was discharged to his facility with his pre-admission medication restarted and supplemental BZD taper. Baldo Jim MD, MSE Maintenance Machine Repairer of Neurology Department of Neurology - Epilepsy Division [facility] documented in this encounter [facility] 12-13-2024 Plan of care note Problem: Adult Inpatient Plan of Care Goal: Plan of Care Review Outcome: Progressing Goal: Patient-Specific Goal (Individualized) Outcome: Progressing Goal: Absence of Hospital-Acquired Illness or Injury Outcome: Progressing Goal: Optimal Comfort and Wellbeing Outcome: Progressing Goal: Readiness for Transition of Care Outcome: Progressing [facility] 12-12-2024 Hospital Discharge instructions Sim Maher MD - 12/12/2024 8:16 AM EDT Summary of What Happened When in the Hospital: You were admitted to the Epilepsy Monitoring Unit (EMU) on 12/11/2024 and were monitored with continuous video EEG. We utilized the following provoking maneuvers: photostimulation as well as the following medication changes: We increased his dose of clonazepam from 1mg at night to 1mg twice a day (once in the morning, once at night) from 12/14 - 12/17/2024. Starting on 12/18, will go back to taking clonazepam only at night. We continued all your other medications as previously prescribed, continuing taking as normal. Regarding his CPAP: We were unable to have our respiratory therapists assess mask (they are not allowed to change home CPAP masks on patients admitted). He will require someone reaching out to [facility] to have a professional healthcare representative re-fit his mask whenever possible. Seizure related First Aid: Should a seizure or seizure-like episode begin, please lay them on their side, DON'T place anything in their mouth, and someone should be timing it. Any seizure in which it lasts longer than 5 minutes, or a seizure cluster longer than 5 minutes without complete recovery in between seizures, ANY seizure with breathing problems regardless of duration, and/or you need to give versed, these are all reasons why you need to go to the Emergency Room for assessment (call 911). During this cEEG with video monitoring evaluation, we captured the following: one generalized seizure characterized by yelling/moaning, left head turning, both arms/legs tightening and raising followed by convulsions. Afterwards, the patient was more confused/tired and was lightly pushing staff away, similar to description of his previous events. This EEG information from your study will be sent to your epilepsy provider. You will follow up with DAVID Burrows in the epilepsy clinic. We have discussed driving restrictions and at this time, you are restricted. We have discussed that you need to be seizure free for 6 months prior to driving if you experience a breakthrough seizure. There is a risk of injury and associated with driving with uncontrolled seizures. Epilepsy is a common condition that causes repeated seizures. The seizures are caused by bursts of electrical activity in the brain that aren't normal. Seizures may cause problems with muscle control, movement, speech, vision, or awareness. They can be scary. Epilepsy affects each person differently. Some people have only a few seizures. Others get them more often. If you know what triggers a seizure, you may be able to avoid having one. You can take medicines to control and reduce seizures. You and your doctor will need to find the right combination, schedule, and dose of medicine. This may take time and careful changes. Seizures may get worse and happen more often over time. What causes it? Many things can cause epilepsy. It may develop as a result of a head injury or a condition that causes damage to the brain, like a tumor or stroke. Genes may also play a role. But you don't have to have a family history to develop it. Often doctors don't know what causes epilepsy. What are the symptoms? The main symptom of epilepsy is repeated seizures that happen without warning. There are different kinds of seizures. You may notice strange smells or sounds. You may lose control of your muscles. Or your body may twitch or jerk. Your symptoms will depend on the type of seizure you have. How is it diagnosed? Diagnosing epilepsy can be hard. Your doctor will ask questions to find out what happened just before, during, and right after a seizure. Your doctor will examine you. You'll have some tests, such as an electroencephalogram. This information can help your doctor decide what kind of seizures you have and if you have epilepsy. How is it treated? You can take medicines to control and reduce seizures. Which type you use depends on the type of seizure. You and your doctor will need to find the right combination, schedule, and dose of medicine. If medicine alone doesn't help, your doctor may suggest a special diet or surgery to help reduce seizures. Follow-up care is a foley part of your treatment and safety. Be sure to make and go to all appointments, and call your doctor if you are having problems. It's also a good idea to know your test results and keep a list of the medicines you take. Signs of a seizure Before the seizure, a warning sign, called an aura, may occur. The aura may be a headache, changes in vision, hearing noises or smelling a scent, such as smoke. During the seizure, these signs may occur: Staring spells Facial twitching Problems breathing Black outs, loss of memory or confusion Drooling Problems controlling the bowels or bladder Convulsions or uncontrollable body motions, such as chewing motions, body stiffening, jerking or lip smacking Changes in sensation or vision After the seizure, the time before you or your loved one wakes up, is called the postictal state. Most people are very tired and confused during this time. If you or your loved one has never had a seizure before or if the seizure lasts longer than 3 minutes: In the hospital, push the call button. At home, call 911 right away. A person with epilepsy should always wear a medical alert necklace or bracelet. Types of seizures Knowing the type of seizure you or your loved one has helps the doctor find the best treatment. There are two main types of seizures: Partial seizures, also called focal seizures, that affect one part of the brain. Generalized seizures that affect both sides of the brain. Sometimes, a seizure may start in one part of the brain then spread to another part. This is called a secondary generalized seizure. Testing and treatment Your doctor will ask you about your signs and may order one or more tests to check the cause of the seizure. An electroencephalogram (EEG), a test that looks for abnormal brain activity, is the most common test. Brain scans, blood tests and other tests to measure motor skills, behavior and cognition may also be done. Anti-seizure medicines may be ordered to control seizures. Your doctor may discuss other treatments with you. Seizure triggers For patients with epilepsy, some factors may make a seizure more likely to occur. These include: Missed medication doses Lack of sleep Stress Alcohol and drug use Smoking cigarettes Hormonal changes, such as with a menstrual cycle Talk to your doctor if you have a seizure. Your medicine, how often you take the medicine or the amount of the medicine you take may need to be changed. Seizure Precautions and Safety Please do not work in close proximity of heavy machinery with moving parts, work in high places such as scaffoldings, ladders, and roofs, and use of heavy duty power tools. Please take caution and do not swim or take baths unsupervised, or shower with water accumulation. Finally, please avoid open flames or gas stove tops unsupervised. Consider moving heavy furniture and night stands that are near the bed in case a patient has a seizure and falls out of bed. These objects can cause bodily harm. Keep the bed as low to the floor as possible. It is okay to use thin blankets, but please remove toys, stuffed animals from your bed before going to bed. Mattresses and pillows should be firm. During sleep, keep the bedroom door cracked open so someone can hear if you are having a seizure. Locking the bedroom door is not recommended. Some people choose to use baby monitors to observe for seizures at night. Know your medicines Talk to your doctors. Make sure you know why you are taking each medicine. If you miss a dose of your anti-seizure medication, make the dose up with 24 hours. Do not double the dose but you can take the dose sometime within the day to help maintain your drug levels. Make a master list of all your medicines. Write down the medicine names, doctor's names and why you take each medicine. Include doses and side effects too. Include all prescription and [id number] medicines, vitamins and supplements. Keep this list up to date. Take a copy to each doctor visit. Know when you will run out of each medicine. Ask your pharmacist if there are ways the drugstore can remind you to refill your medicine so you do not run out. Write refill reminders on your calendar. Don't wait until you have a few pills left. Ask your pharmacist to plan your refills so that you can pick up worker all your medicine at the same time. This can mean fewer trips to the drugstore. Notify Your Doctor if you have any of the following: NEUROLOGICAL CHANGES-- Change in alertness Increased sleepiness Nausea and vomiting New onset of numbness or weakness in arms or legs New problems with your bowels or bladder New or worse problems with balance or walking Seizures, new or worsening UNRELIEVED HEADACHE PAIN-- New or increased pain unrelieved with pain medications Pain associated with nausea and vomiting Pain associated with other symptoms QUESTIONS OR PROBLEMS-- PLEASE CALL [phone] TO BE TRANSFERRED TO THE NEUROLOGIST JOURNEYMAN PRESS OPERATOR On weekends or after regular office hours, a neurologist is marionette performer for urgent issues. Call the neurology office number ([phone]) to reach the neurologist marionette performer if you are continuing to experience many more seizures than usual despite use of your rescue medications. Please try to remember that the neurologist marionette performer may not have access to your complete medical record and may not be as familiar with your history. It is always best to call during regular office hours when a nurse can talk with you, review your medical record, and talk to you managing neurologist or nurse practitioner. Seizure First Aid Training Can Be Found Here (it's free!): [email or web address] Patient Experience Survey Reminder You may receive a survey in the mail within a few weeks regarding your hospitalization. This helps us to improve the care and services we provide at [facility]. We truly appreciate you taking the time to fill this out. We particularly welcome any specific comments you may have (good or bad!) regarding your experience at [facility] so that we may use them to continue to strive towards excellence for our patients. documented in this encounter [facility] 12-12-2024 Plan of care note Problem: Adult Inpatient Plan of Care Goal: Plan of Care Review Outcome: Progressing Goal: Patient-Specific Goal (Individualized) Outcome: Progressing Goal: Absence of Hospital-Acquired Illness or Injury Outcome: Progressing Goal: Optimal Comfort and Wellbeing Outcome: Progressing Goal: Readiness for Transition of Care Outcome: Progressing [facility] 12-11-2024 Nurse Note [facility] from critical access hospital dual RN initial assessment of skin condition was performed by Christy Sims RN and Airam Fuentes RN. Skin Assessment: Skin not within defined limits. Left trejo abrasion. Old scarring on abdomen. Christopher Score: 16 LDA Added:Yes Christy Sims RN [facility] 12-11-2024 History and physical note Images from the original note were not included. Epilepsy Monitoring Unit History and Physical Date of service: December 11, 2024 Patient Name: Pancho Mcpherson : 1960 Reason for referral: Increased breakthrough seizures, medication management Referring provider: Kaushal Avitia APRN-* History of Present Illness Pancho Mcpherson is a 64 y.o. left handed male with a past medical history significant for Developmental delay, HTN, HLD, Hypothyroidism, Intractable epilepsy s/p VNS, Mental retardation, Recurrent UTI, JAIME, and Cervical spinal stenosis who presents for spell capture and medication adjustments. His spells/events began 6 months, febrile. Aura: none. Typical event consists of loud vocalization, limb stiffening and unresponsiveness for a minute followed by confusion/fatigue. Originally occurring 2-3 times per month. Historically difficult to manage seizures on multiple AEDs as below. Recently was admitted for sepsis, acute cholecystitis 10/22-. Also diagnosed with nocturnal hypoxia and started on O2 with his CPAP at night, likely worsened by his VNS. Further, there is concern witnessed by hospital staff that the patient's nose anatomy was causing a poor seal in his CPAP and inadequately treating his JAIME. Following this, there was an increase in his seizure frequency with concerns of his uncontrolled nocturnal hypoxia being the driving factor. Also appears to have changed semiology - caregiver Viji thinks they have increased in severity with right arm stiffening -> bilateral arm flailing with loud vocalizations and unresponsiveness. Per Viji, caregiver, and Sherly, sister/HCPOA, at bedside Last seizure was 11/13/2024, last prior to that was 10/12/2024, had two seizures in 09/2024 and two in 08/2024. No significant concern for AED side effect, ideally would be on less medication but primary concern at this time is controlling seizures. Does feel that seizures may have improved since his cholecystectomy/increased vimpat. Completed a sleep study recently and did not get hypoxemic while on room air, but was continued on 2L through CPAP at night. Can have agitation during transportation or when using bathroom. Uses urinal at bedside and sits at toilet for stool. Can be redirectable, but typically agitation is improved with decreased stimulation and allowing him to be alone. When describing seizure events, Sherly states patient's previous childhood seizures were characterized by bilateral arm/leg tonic/clonic shaking, initially without urinary incontinence as a child but developed it in adulthood. Sherly has not witnessed a seizure in years as the patient lives in a care facility. Per awning hanger helper, it is rare to see a seizure directly, but they do have an audio monitor in the room. Will hear the patient call out (shouting/grunting multiple times) and find him reaching both arms forward, head flexed forward. Will swat away staff members at this point if they try to administer Valtoco, for example. His seizures are typically most prevalent during sleep (although has had some while awake in the past). Viji does state the patient's VNS was initially seemingly helpful at controlling events, but the patient has developed the above events more frequently and requires Valtoco to stop his arm shaking even after VNS swipes. Epilepsy Information: Provoked by: []EtOH withdrawal []sleep deprivation [x]stress []photic stimulation Type of epilepsy: Generalized idiopathic epilepsy, intractable Etiology: Year of onset: 6 months Type of seizure: likely generalized vs focal to generalized Seizure frequency: Seizure clustering: No Prior work up includes: Neuroimaging: Diffuse, bilateral magnetic signal susceptibility consistent with chronic micro-hemorrhages or small cavernomas with surrounding T2 FLAIR hyperintensity. EE04/18/2023 - Diffuse encephalopathy without epileptogenic foci or seizures EMU admission: none ROS Fever - Shortness of breath - Diarrhea - Weight loss/gain - Exertional dyspnea - Nausea - Visual changes - Chest Pain - Vomiting - Dizziness - Difficulty swallowing - Rashes - Changes in hearing - Loss of bladder control - Easy bruising/bleeding - Cough - Loss of bowel control - Back pain - Abdominal Pain - Constipation - Headache - (+/-) positive/negative Past History Risk factors for seizure: [] history problems [x] Developmental delay (needing speech therapy/ physical therapy in childhood) [x] Childhood or febrile seizures [] Head trauma [] Intracranial pathology [] Hemorrhage/stroke [] BLOCK SORTER surgery [] BLOCK SORTER infection [] Family history of seizures Past Medical History: Diagnosis Date Developmental delay Essential hypertension, benign Hyperlipidemia Hypothyroidism Intractable epilepsy Mental retardation Prostate enlargement Recurrent UTI S/P placement of VNS (vagus nerve stimulation) device Seizure Sleep apnea Spinal stenosis Past Surgical History: Procedure Laterality Date INSERTION NEUROSTIMULATOR ELECTRODE & GENERATOR CRANIAL NERVE (EG VAGUS) OPEN N/A 08/30/2023 Laterality: N/A; Surgeon: Ulises Li MD; Location: [facility] MAIN OR GUIDANCE FLUOROSCOPIC NEEDLE PLACEMENT ADD-ON PX N/A 08/30/2023 Laterality: N/A; Surgeon: Ulises Li MD; Location: [facility] MAIN OR FUSION ANTERIOR INTERBODY CERVICAL N/A 05/26/2021 Laterality: N/A; Surgeon: Carmelina Youngblood MD; Location: [facility] MAIN OR GRAFT SPINE SURGERY ONLY ALLOGRAFT ANTERIOR ADD-ON PX N/A 05/26/2021 Laterality: N/A; Surgeon: Carmelina Youngblood MD; Location: [facility] MAIN OR INSERTION SPINAL INSTRUMENTATION ANTERIOR ADD-ON PX (IP ONLY) N/A 05/26/2021 Laterality: N/A; Surgeon: Carmelina Youngblood MD; Location: [facility] MAIN OR FUSION ANTERIOR INTERBODY EACH ADDL INTERSPACE ADD-ON PX N/A 05/26/2021 Laterality: N/A; Surgeon: Carmelina Youngblood MD; Location: [facility] MAIN OR MONITORING NEUROPHYSIOLOGY INTRAOPERATIVE ADD-ON PX N/A 05/26/2021 Laterality: N/A; Surgeon: Carmelina Youngblood MD; [facility] OR MICROSURGICAL TECHNIQUES W/ OPERATING MICROSCOPE ADD-ON PX N/A 05/26/2021 Laterality: N/A; Surgeon: Carmelina Youngblood MD; Location: [facility] MAIN OR DISCECTOMY ANTERIOR CERVICAL N/A 05/26/2021 Laterality: N/A; Surgeon: Carmelina Youngblood MD; Location: [facility] MAIN OR REMOVAL SPINAL INSTRUMENTATION ANTERIOR N/A 05/26/2021 Laterality: N/A; Surgeon: Carmelina Youngblood MD; [facility] FUSION ANTER[facility] INTERBODY CERVICAL EACH ADDL INTERSPACEX N/A 05/26/2021 Laterality: N/A; Surgeon: Carmelina Youngblood MD; Location: [facility] MAIN OR LAPAROTOMY EXPLORATORY 2020 REDUCTION OPEN ORBITAL FLOOR FX WITH IMPLANT OR BONE GRAFT Right 06/05/2014 Laterality: Right; Surgeon: Douglas Nolasco MD; Location: [facility] MAIN OR EYE SURGERY Right for nerve no implants LEG SURGERY lower leg fracture with pin Family History Problem Relation Age of Onset Lipid Disorder Mother Alcoholism Father Schizophrenia Father Alcoholism Brother Social History Socioeconomic History Marital status: Single Tobacco Use Smoking status: Never Smokeless tobacco: Never Vaping Use Vaping status: Never Used Substance and Sexual Activity Alcohol use: Never Drug use: Never Social History Narrative Merged History Encounter Social Drivers of Health Food Insecurity: No Food Insecurity (10/26/2024) Received from [facility] Hunger Vital Sign Worried About Running Out of Food in the Last Year: Never true Ran Out of Food in the Last Year: Never true Transportation Needs: No Transportation Needs (10/26/2024) Received from [facility] PRAPARE - Transportation Lack of Transportation (Medical): No Lack of Transportation (Non-Medical): No Personal Safety: Not At Risk (10/26/2024) Received from [facility] Humiliation, Afraid, Rape, and Kick questionnaire Fear of Current or Ex-Partner: No Emotionally Abused: No Physically Abused: No Sexually Abused: No Housing Stability: Low Risk (10/26/2024) Received from [facility] Housing Stability Vital Sign Unable to Pay for Housing in the Last Year: No Number of Times Moved in the Last Year: 0 Homeless in the Last Year: No No Known Allergies Medications Pt is currently on the following AED(s): - Lacosamide 250mg bid - Phenytoin ER 300mg at bedtime - Phenobarbital 48.6 qAM/PM, 64.8 at bedtime - Clonazepam 1mg at bedtime - Keppra XR 2000mg at bedtime Has been previously tried on the following AEDs (reason for failure): []Brivaracetam (BRV) []Carbamazepine (CBZ) []Depakote (VPA) []Eslicarbazepine acetate (ECBZ) []Ethosuximide (ETX) []Ezogabine (EZG) []Felbamate (FBM) []Gabapentin (GPT) []Lacosamide (LAC) []Lamotrigine (LTG) []Levetiracetam (LEV) []Oxcarbazepine (OXC) []Oxtellar XR (OXC Extended Release) []Perampanel (PRP) []Phenobarbital (PB) []Phenytoin (PHT) []Pregabalin (PGB) []Primidone (PRM) []Qudexy XR (TPM) []Rufinamide (RUF) []Topiramate (TPM) []Trokendi XR (TPM) []Vigabatrin (VGT) []Zonisamide (ZNS) Benzodiazepines tried/currently taking: [] Clobazam (CLB) [x] Clonazepam [x] Diazepam intranasal [] Lorazepam [] Midazolam (intranasal/buccal) Cannot display prior to admission medications because the patient has not been admitted in this contact. Vitals Temp: [97.5 F (36.4 C)] 97.5 F (36.4 C) Pulse (Heart Rate): [62] 62 Resp Rate: [16] 16 BP: (131)/(76) 131/76 O2 Sat (%): [94 %] 94 % Weight: [88.1 kg (194 lb 3.2 oz)] 88.1 kg (194 lb 3.2 oz) Body mass index is 27.24 kg/m . Physical Exam General Physical Exam General: Laying comfortably in bed; in no acute distress. CV: Perfusing extremities Pulmonary: No increased work of breathing, equal chest rise bilaterally, no audible wheezing. Abdomen: soft, non-tender Ext: No cyanosis, edema, or deformity Skin: No rash Neurologic Examination Mental status/Cognition: alert; oriented to person, place, year, and month; good attention, responds appropriately; Normal mood and affect. Normal insight into condition. Speech/language: fluent; comprehension intact; object naming intact; repetition intact Cranial nerves: CN II Visual souza full to confrontation CN III,IV, PERRL. EOMI. No nystagmus noted. CN V Facial sensation intact to light touch bilaterally in V1, V2, V3 CN VII Face, Smile, Eyebrow raise symmetric. Eye closure strength 5/5 b/l CN VIII Hearing intact to finger rub bilaterally CN IX & X Soft palate elevates symmetrically in the midline, no dysarthria CN XI Shoulder shrug, SCM 5/5 strength bilaterally CN XII Tongue protrudes midline Motor: Normal bulk, increased tone in bilateral LE but R>L. No pronator drift. Right Left Comments SA 5 5 EE 5 5 EF 5 5 HG 5 5 IO 5 5 HF 3 5 KE 4 5 KF 4 5 DF 4 5 PF 4 5 Reflexes: Right Left Comments Biceps 2 2 Triceps 2 2 Brachioradialis 2 2 Patellar 3 2 Achilles 1 1 Jaw jerk Marques Plantar Non reactive Non reactive Sensation: Light touch Intact throughout Pin prick Temperature Vibration Proprioception Coordination/Complex Motor: - [id number] intact bilaterally without dysmetria Gait: deferred, chronically wheel-chair bound Labs Lab Results Component Value Date ALT 38 08/06/2021 AST 24 08/06/2021 ALKPHOS 129 (H) 08/06/2021 BILITOTAL 0.2 08/06/2021 BILIDIRECT <0.1 08/06/2021 AED levels: No results found for: PHENYTOIN, PHNYTOINFREE, PHENOBARBITA, VALPROICACTT, VALPROICACID, VALPROACIDT, VALPROICACFR, CARBAMAZTTL, CARBAMAZEPIN, CARBAMAZFREE, CARBAMAZEPFR, OXCARBAZEPIN, YLACO, ZONISAMIDE, PREGABALIN, LAMOTRIGINE, TOPIRAMSO, LEVETIRACETA Imaging and Diagnostic studies ROUTINE EEG IMPRESSION 04/18/2023: CLINICAL IMPRESSION: This is an abnormal prolonged EEG due to the presence of moderate diffuse slowing, indicative of a moderate non-specific encephalopathy. Dictated By: Srini Bowen MD Neuroimaging: BRAIN MRI WO CONTRAST IMPRESSION 12/08/21: Scattered foci of T2 prolongation in the periventricular and deep white matter are nonspecific but compatible with chronic microvascular changes. No evidence of edema, mass effect, or mass lesion. Numerous punctate foci of magnetic susceptibility demonstrate no associated edema or mass effect and are compatible with remote microhemorrhages and/or small cavernomas. No diffusion restriction or other evidence of acute infarct is identified. - No acute intracranial abnormality or mass effect. 09/20/2023 10/18/2023 11/22/2023 02/22/2024 05/30/2024 06/27/2024 11/12/2024 NEURO VNS Date Placed 08/30/2023 08/30/2023 08/30/2023 08/30/2023 08/30/2023 08/30/2023 Model Number 1000 1000 1000 1000 1000 1000 Serial Number [id number] Output Current (mA) 0.5 mA 0 mA 0.75 mA 0.5 mA 1.25 mA 0.75 mA 1.5 mA 1.25 mA 1.75 mA 1.5 mA 1.75 mA 1.75 mA Signal Frequency (Hz) 20 Hz 20 Hz 20 Hz 20 Hz 20 Hz 20 Hz 20 Hz 20 Hz Pulse Width (microseconds) 250 microseconds 250 microseconds 250 microseconds 250 microseconds 250 microseconds 250 microseconds 250 microseconds 250 microseconds Signal ON Time (seconds) 30 seconds 30 seconds 30 seconds 30 seconds 30 seconds 30 seconds 30 seconds 30 seconds Signal OFF Time (minutes) 3 minutes 5 minutes 3 minutes 3 minutes 3 minutes 3 minutes 3 minutes 3 minutes [employer] Output Current (mA) 0 mA 0 mA 0.875 mA 0 mA 1.375 mA 0.875 mA 1.625 mA 1.375 mA 1.875 mA 1.75 mA 1.875 mA 1.875 mA [employer] Pulse Width (microseconds) 250 microseconds 250 microseconds 250 microseconds 250 microseconds 250 microseconds 250 microseconds 250 microseconds [employer] ON Time (seconds) 30 seconds 30 seconds 30 seconds 30 seconds 30 seconds 30 seconds 3 seconds Tachycardia Detection On On On On On Heartbeat Detection Sensitivity 3 3 3 3 3 Threshold for [employer] (%) 20 % 20 % 20 % 20 % 20 % Number of [employer] Uses 145.12 174.7 Magnet Output Current (mA) 0.625 mA 0 mA 1 mA 0.625 mA 1.5 mA 1 mA 1.75 mA 1.5 mA 2 mA 1.75 mA 2 mA 2 mA Magnet Pulse Width (microseconds) 250 microseconds 250 microseconds 250 microseconds 250 microseconds 250 microseconds 250 microseconds 250 microseconds 250 microseconds Magnet ON Time (seconds) 60 seconds 60 seconds 60 seconds 60 seconds 60 seconds 60 seconds 60 seconds 60 seconds Number of Magnet Uses 0.9 Does this patient have night settings? -- Yes Normal Output Current (mA) 1.75 mA 1.75 mA Normal Signal Frequency (Hz) 20 Hz 20 Hz Normal Pulse Width (microseconds) 250 microseconds 250 microseconds Normal Signal ON Time (seconds) 30 seconds 30 seconds Normal Signal OFF Time (minutes) 5 minutes 5 minutes [employer] Output Current (mA) 1.875 mA 1.875 mA [employer] Pulse Width (microseconds) 250 microseconds 250 microseconds [employer] ON Time (seconds) 30 seconds 30 seconds Magnet Output Current (mA) 2 mA 2 mA Magnet Pulse Width (microseconds) 250 microseconds 250 microseconds Magnet ON Time (seconds) 60 seconds 60 seconds Output Status 0 0.5 0.75 1.75 1.75 Lead Impedence OK ok OK OK OK OK OK OK DC/DC Code 3537 3475 3337 3000 2837 2762 2587 Elective Replacement Indicator 75-100 75-100 75-100 75-100 75-1000 75-100 75-100 75-100 Multiple values from one day are sorted in reverse-chronological order Assessment and Plan Pancho Mcpherson is a 64 y.o. left handed male with a past medical history significant for Developmental delay, HTN, HLD, Hypothyroidism, Intractable epilepsy s/p VNS, Mental retardation, Recurrent UTI, JAIME, and Cervical spinal stenosis who presents for spell capture and medication adjustments. His neurologic examination is remarkable for bilateral lower extremity spasticity and RLE weakness, which localizes to his prior diagnosed spinal stenosis s/p fusion. Labs are pending. Brain imaging revealed no acute findings, but with bilateral and diffuse microhemorrhages and chronic microvascular disease. Semiology appears consistent with generalized onset seizure vs possible focal to generalized tonic clonic. Appears baseline seizures were well stereotyped with ictal cry, bilateral arm contractures followed by clonic movements. Previously happening 2-3 times a month, can be associated with post-ictal agitation that is controlled at his intermediate by leaving him alone per awning hanger helper and letting him sleep. Has required restrains in past for intermittent agitation (outside of seizures) per chart review. The description of his new event semiology is less consistent with an epileptic etiology (bilateral arms reached forward, head directly forward, pushes staff away when approached). May either be a post-ictal confusion/agitation state after a nocturnal/unwitnessed seizure vs PNEE. Given semiology, the differential diagnosis includes focal epilepsy vs generalized epilepsy vs PNEE. Spell characterization: - Admit to EMU - EEG with video - IV ativan PRN (see seizure action plan below) - Home ASDs: - levetiracetam (Keppra) XR 2g qhs - phenobarbital 48.6mg qAM/PM, 64.8 at bedtime - phenytoin (Dilantin) ER 300mg at bedtime - Lacosamide 250mg bid - Clonazepam 1mg at bedtime - EMU ASD plan: - Continue levetiracetam (Keppra) 2g bid - Continue phenobarbital 48.6mg qAM/PM, 64.8 at bedtime - Continue phenytoin (Dilantin) ER 300mg at bedtime - Continue Lacosamide 250mg bid - Continue Clonazepam 1mg at bedtime - Provoking maneuvers: none Post Ictal Confusion: Yes If so, plan? Redirect Pancho and reduce stimuli in room Post Ictal Agitation: Yes If so, plan? Redirect, allow to sleep, soft wrist restraints if necessary Post Ictal Psychosis: No If so, plan? [x] vEEG/EMU consent signed SEIZURE ACTION PLAN: NURSING STAFF: ADMINISTER LORAZEPAM FIRST - if patient has 2 focal with impaired awareness (FIAS) seizures in a 24 hour period or 1 focal to bilateral tonic clonic (FBTC) or generalized tonic clonic convulsive (GTC) seizures. Please notify DERREK/EMU resident first during the day or LTM attending at night if patient has 1 focal to bilateral tonic clonic seizure (PLEASE REFER TO QGENDA TO SEE WHO EMU/LTM ATTENDING IS) Other medical conditions JAIME Concern for improper CPAP seal at home. Otherwise compliant with home CPAP nightly. - Continue nocturnal CPAP - 2L CPAP while sleeping (28% FiO2) - Discussed with respiratory therapy for home CPAP mask assessment - Patient will require outpatient assessment by his CPAP company ([employer]) for changes to his home mask, unable to complete inpatient. - Home CPAP at bedside - Home albuterol prn wheezing - Home budesonide prn wheezing HLD - Home Lipitor 10mg daily GERD - Home Pepcid 20mg bid - Home Calcium Carbonate 500mg bid Hypothyroidism - Home Levothyroxine 237.5mcg daily Recurrent UTI - Home Methenamine Hippurate 1g bid MDD/RUMA Agitation Previously associated with intermittent agitation. Has required soft restraints in past. - Home Paroxetine 50mg daily - Home Seroquel 75mg qAM, 25mg qPM, 250mg at bedtime Diet: DIET REGULAR Code Status: DNR Suspension DVT prophylaxis: subcutaneous lovenox Plan of care discussed with EMU attending, Dr. Jim. Signed, Sim Maher MD PGY-2 Department of Neurology Pager [phone] Cosigned by Mya Jim MD at 12/12/2024 3:55 PM EDT Associated attestation - Mya Jim MD - 12/12/2024 3:55 PM EDT Attending Physician Note (GC) I interviewed and examined this patient with the resident. I reviewed the history and exam detailed in the note. I agree with the medical decision making and plan. Baldo Jim MD, MSE Maintenance Machine Repairer of Neurology Department of Neurology - Epilepsy Division [facility] 12-11-2024 History and physical note Images from the original note were not included. Epilepsy Monitoring Unit History and Physical Date of service: December 11, 2024 Patient Name: Pancho Mcpherson : 1960 Reason for referral: Increased breakthrough seizures, medication management Referring provider: Kaushal Avitia APRN-* History of Present Illness Pancho Mcpherson is a 64 y.o. left handed male with a past medical history significant for Developmental delay, HTN, HLD, Hypothyroidism, Intractable epilepsy s/p VNS, Mental retardation, Recurrent UTI, JAIME, and Cervical spinal stenosis who presents for spell capture and medication adjustments. His spells/events began 6 months, febrile. Aura: none. Typical event consists of loud vocalization, limb stiffening and unresponsiveness for a minute followed by confusion/fatigue. Originally occurring 2-3 times per month. Historically difficult to manage seizures on multiple AEDs as below. Recently was admitted for sepsis, acute cholecystitis 10/22-. Also diagnosed with nocturnal hypoxia and started on O2 with his CPAP at night, likely worsened by his VNS. Further, there is concern witnessed by hospital staff that the patient's nose anatomy was causing a poor seal in his CPAP and inadequately treating his JAIME. Following this, there was an increase in his seizure frequency with concerns of his uncontrolled nocturnal hypoxia being the driving factor. Also appears to have changed semiology - caregiver Viji thinks they have increased in severity with right arm stiffening -> bilateral arm flailing with loud vocalizations and unresponsiveness. Per Viji, caregiver, and Sherly, sister/HCPOA, at bedside Last seizure was 11/13/2024, last prior to that was 10/12/2024, had two seizures in 09/2024 and two in 08/2024. No significant concern for AED side effect, ideally would be on less medication but primary concern at this time is controlling seizures. Does feel that seizures may have improved since his cholecystectomy/increased vimpat. Completed a sleep study recently and did not get hypoxemic while on room air, but was continued on 2L through CPAP at night. Can have agitation during transportation or when using bathroom. Uses urinal at bedside and sits at toilet for stool. Can be redirectable, but typically agitation is improved with decreased stimulation and allowing him to be alone. When describing seizure events, Sherly states patient's previous childhood seizures were characterized by bilateral arm/leg tonic/clonic shaking, initially without urinary incontinence as a child but developed it in adulthood. Sherly has not witnessed a seizure in years as the patient lives in a care facility. Per awning hanger helper, it is rare to see a seizure directly, but they do have an audio monitor in the room. Will hear the patient call out (shouting/grunting multiple times) and find him reaching both arms forward, head flexed forward. Will swat away staff members at this point if they try to administer Valtoco, for example. His seizures are typically most prevalent during sleep (although has had some while awake in the past). Viji does state the patient's VNS was initially seemingly helpful at controlling events, but the patient has developed the above events more frequently and requires Valtoco to stop his arm shaking even after VNS swipes. Epilepsy Information: Provoked by: []EtOH withdrawal []sleep deprivation [x]stress []photic stimulation Type of epilepsy: Generalized idiopathic epilepsy, intractable Etiology: Year of onset: 6 months Type of seizure: likely generalized vs focal to generalized Seizure frequency: Seizure clustering: No Prior work up includes: Neuroimaging: Diffuse, bilateral magnetic signal susceptibility consistent with chronic micro-hemorrhages or small cavernomas with surrounding T2 FLAIR hyperintensity. EE04/18/2023 - Diffuse encephalopathy without epileptogenic foci or seizures EMU admission: none ROS Fever - Shortness of breath - Diarrhea - Weight loss/gain - Exertional dyspnea - Nausea - Visual changes - Chest Pain - Vomiting - Dizziness - Difficulty swallowing - Rashes - Changes in hearing - Loss of bladder control - Easy bruising/bleeding - Cough - Loss of bowel control - Back pain - Abdominal Pain - Constipation - Headache - (+/-) positive/negative Past History Risk factors for seizure: [] history problems [x] Developmental delay (needing speech therapy/ physical therapy in childhood) [x] Childhood or febrile seizures [] Head trauma [] Intracranial pathology [] Hemorrhage/stroke [] BLOCK SORTER surgery [] BLOCK SORTER infection [] Family history of seizures Past Medical History: Diagnosis Date Developmental delay Essential hypertension, benign Hyperlipidemia Hypothyroidism Intractable epilepsy Mental retardation Prostate enlargement Recurrent UTI S/P placement of VNS (vagus nerve stimulation) device Seizure Sleep apnea Spinal stenosis Past Surgical History: Procedure Laterality Date INSERTION NEUROSTIMULATOR ELECTRODE & GENERATOR CRANIAL NERVE (EG VAGUS) OPEN N/A 08/30/2023 Laterality: N/A; Surgeon: Ulises Li MD; Location: [facility] GUIDANCE FLUOROSCOPIC NEEDLE PLACEMENT ADD-ON PX N/A 08/30/2023 Laterality: N/A; Surgeon: Ulises Li MD; Location: [facility] FUSION ANTERIOR INTERBODY CERVICAL N/A 05/26/2021 Laterality: N/A; Surgeon: Carmelina Youngblood MD; Location: [facility] OR GRAFT SPINE SURGERY ONLY ALLOGRAFT ANTERIOR ADD-ON PX N/A 05/26/2021 Laterality: N/A; Surgeon: Carmelina Youngblood MD; Location: [facility] OR INSERTION SPINAL INSTRUMENTATION ANTERIOR ADD-ON PX (IP ONLY) N/A 05/26/2021 Laterality: N/A; Surgeon: Carmelina Youngblood MD; Location: [facility] OR FUSION ANTERIOR INTERBODY EACH ADDL INTERSPACE ADD-ON PX N/A 05/26/2021 Laterality: N/A; Surgeon: Carmelina Youngblood MD; Location: [facility] OR MONITORING NEUROPHYSIOLOGY INTRAOPERATIVE ADD-ON PX N/A 05/26/2021 Laterality: N/A; Surgeon: Carmelina Youngblood MD; Location: [facility] MA[facility] OR MICROSURGICAL TECHNIQUES W/ OPERATING MICROSCOPE ADD-ON PX N/A 05/26/2021 Laterality: N/A; Surgeon: Carmelina Youngblood MD; Location: [facility] MA[facility] OR DISCECTOMY ANTERIOR CERVICAL N/A 05/26/2021 Laterality: N/A; Surgeon: Carmelina Youngblood MD; Location: [facility] OR REMOVAL SPINAL INSTRUMENTATION ANTERIOR N/A 05/26/2021 Laterality: N/A; Surgeon: Carmelina Youngblood MD; Location: [facility] OR FUSION ANTERIOR INTERBODY CERVICAL EACH ADDL INTERSPACEX N/A 05/26/2021 Laterality: N/A; Surgeon: Carmelina Youngblood MD; Location: [facility] MA[facility] OR LAPAROTOMY EXPLORATORY 2020 REDUCTION OPEN ORBITAL FLOOR FX WITH IMPLANT OR BONE GRAFT Right 06/05/2014 Laterality: Right; Surgeon: Douglas Nolasco MD; Location: [facility] MAIN OR EYE SURGERY Right for nerve no implants LEG SURGERY lower leg fracture with pin Family History Problem Relation Age of Onset Lipid Disorder Mother Alcoholism Father Schizophrenia Father Alcoholism Brother Social History Socioeconomic History Marital status: Single Tobacco Use Smoking status: Never Smokeless tobacco: Never Vaping Use Vaping status: Never Used Substance and Sexual Activity Alcohol use: Never Drug use: Never Social History Narrative Merged History Encounter Social Drivers of Health Food Insecurity: No Food Insecurity (10/26/2024) Received from [facility] Hunger Vital Sign Worried About Running Out of Food in the Last Year: Never true Ran Out of Food in the Last Year: Never true Transportation Needs: No Transportation Needs (10/26/2024) Received from [facility] PRAPARE - Transportation Lack of Transportation (Medical): No Lack of Transportation (Non-Medical): No Personal Safety: Not At Risk (10/26/2024) Received from [facility] Humiliation, Afraid, Rape, and Kick questionnaire Fear of Current or Ex-Partner: No Emotionally Abused: No Physically Abused: No Sexually Abused: No Housing Stability: Low Risk (10/26/2024) Received from [facility] Housing Stability Vital Sign Unable to Pay for Housing in the Last Year: No Number of Times Moved in the Last Year: 0 Homeless in the Last Year: No No Known Allergies Medications Pt is currently on the following AED(s): - Lacosamide 250mg bid - Phenytoin ER 300mg at bedtime - Phenobarbital 48.6 qAM/PM, 64.8 at bedtime - Clonazepam 1mg at bedtime - Keppra XR 2000mg at bedtime Has been previously tried on the following AEDs (reason for failure): []Brivaracetam (BRV) []Carbamazepine (CBZ) []Depakote (VPA) []Eslicarbazepine acetate (ECBZ) []Ethosuximide (ETX) []Ezogabine (EZG) []Felbamate (FBM) []Gabapentin (GPT) []Lacosamide (LAC) []Lamotrigine (LTG) []Levetiracetam (LEV) []Oxcarbazepine (OXC) []Oxtellar XR (OXC Extended Release) []Perampanel (PRP) []Phenobarbital (PB) []Phenytoin (PHT) []Pregabalin (PGB) []Primidone (PRM) []Qudexy XR (TPM) []Rufinamide (RUF) []Topiramate (TPM) []Trokendi XR (TPM) []Vigabatrin (VGT) []Zonisamide (ZNS) Benzodiazepines tried/currently taking: [] Clobazam (CLB) [x] Clonazepam [x] Diazepam intranasal [] Lorazepam [] Midazolam (intranasal/buccal) Cannot display prior to admission medications because the patient has not been admitted in this contact. Vitals Temp: [97.5 F (36.4 C)] 97.5 F (36.4 C) Pulse (Heart Rate): [62] 62 Resp Rate: [16] 16 BP: (131)/(76) 131/76 O2 Sat (%): [94 %] 94 % Weight: [88.1 kg (194 lb 3.2 oz)] 88.1 kg (194 lb 3.2 oz) Body mass index is 27.24 kg/m . Physical Exam General Physical Exam General: Laying comfortably in bed; in no acute distress. CV: Perfusing extremities Pulmonary: No increased work of breathing, equal chest rise bilaterally, no audible wheezing. Abdomen: soft, non-tender Ext: No cyanosis, edema, or deformity Skin: No rash Neurologic Examination Mental status/Cognition: alert; oriented to person, place, year, and month; good attention, responds appropriately; Normal mood and affect. Normal insight into condition. Speech/language: fluent; comprehension intact; object naming intact; repetition intact Cranial nerves: CN II Visual souza full to confrontation CN III,IV, PERRL. EOMI. No nystagmus noted. CN V Facial sensation intact to light touch bilaterally in V1, V2, V3 CN VII Face, Smile, Eyebrow raise symmetric. Eye closure strength 5/5 b/l CN VIII Hearing intact to finger rub bilaterally CN IX & X Soft palate elevates symmetrically in the midline, no dysarthria CN XI Shoulder shrug, SCM 5/5 strength bilaterally CN XII Tongue protrudes midline Motor: Normal bulk, increased tone in bilateral LE but R>L. No pronator drift. Right Left Comments SA 5 5 EE 5 5 EF 5 5 HG 5 5 IO 5 5 HF 3 5 KE 4 5 KF 4 5 DF 4 5 PF 4 5 Reflexes: Right Left Comments Biceps 2 2 Triceps 2 2 Brachioradialis 2 2 Patellar 3 2 Achilles 1 1 Jaw jerk Marques Plantar Non reactive Non reactive Sensation: Light touch Intact throughout Pin prick Temperature Vibration Proprioception Coordination/Complex Motor: - Bkligo-mi-idvu intact bilaterally without dysmetria Gait: deferred, chronically wheel-chair bound Labs Lab Results Component Value Date ALT 38 08/06/2021 AST 24 08/06/2021 ALKPHOS 129 (H) 08/06/2021 BILITOTAL 0.2 08/06/2021 BILIDIRECT <0.1 08/06/2021 AED levels: No results found for: PHENYTOIN, PHNYTOINFREE, PHENOBARBITA, VALPROICACTT, VALPROICACID, VALPROACIDT, VALPROICACFR, CARBAMAZTTL, CARBAMAZEPIN, CARBAMAZFREE, CARBAMAZEPFR, OXCARBAZEPIN, YLACO, ZONISAMIDE, PREGABALIN, LAMOTRIGINE, TOPIRAMSO, LEVETIRACETA Imaging and Diagnostic studies ROUTINE EEG IMPRESSION 04/18/2023: CLINICAL IMPRESSION: This is an abnormal prolonged EEG due to the presence of moderate diffuse slowing, indicative of a moderate non-specific encephalopathy. Dictated By: Srini Bowen MD Neuroimaging: BRAIN MRI WO CONTRAST IMPRESSION 12/08/21: Scattered foci of T2 prolongation in the periventricular and deep white matter are nonspecific but compatible with chronic microvascular changes. No evidence of edema, mass effect, or mass lesion. Numerous punctate foci of magnetic susceptibility demonstrate no associated edema or mass effect and are compatible with remote microhemorrhages and/or small cavernomas. No diffusion restriction or other evidence of acute infarct is identified. - No acute intracranial abnormality or mass effect. 09/20/2023 10/18/2023 11/22/2023 02/22/2024 05/30/2024 06/27/2024 11/12/2024 NEURO VNS Date Placed 08/30/2023 08/30/2023 08/30/2023 08/30/2023 08/30/2023 08/30/2023 Model Number 1000 1000 1000 1000 1000 1000 Serial Number [id number] Output Current (mA) 0.5 mA 0 mA 0.75 mA 0.5 mA 1.25 mA 0.75 mA 1.5 mA 1.25 mA 1.75 mA 1.5 mA 1.75 mA 1.75 mA Signal Frequency (Hz) 20 Hz 20 Hz 20 Hz 20 Hz 20 Hz 20 Hz 20 Hz 20 Hz Pulse Width (microseconds) 250 microseconds 250 microseconds 250 microseconds 250 microseconds 250 microseconds 250 microseconds 250 microseconds 250 microseconds Signal ON Time (seconds) 30 seconds 30 seconds 30 seconds 30 seconds 30 seconds 30 seconds 30 seconds 30 seconds Signal OFF Time (minutes) 3 minutes 5 minutes 3 minutes 3 minutes 3 minutes 3 minutes 3 minutes 3 minutes [employer] Output Current (mA) 0 mA 0 mA 0.875 mA 0 mA 1.375 mA 0.875 mA 1.625 mA 1.375 mA 1.875 mA 1.75 mA 1.875 mA 1.875 mA [employer] Pulse Width (microseconds) 250 microseconds 250 microseconds 250 microseconds 250 microseconds 250 microseconds 250 microseconds 250 microseconds [employer] ON Time (seconds) 30 seconds 30 seconds 30 seconds 30 seconds 30 seconds 30 seconds 3 seconds Tachycardia Detection On On On On On Heartbeat Detection Sensitivity 3 3 3 3 3 Threshold for [employer] (%) 20 % 20 % 20 % 20 % 20 % Number of [employer] Uses 145.12 174.7 Magnet Output Current (mA) 0.625 mA 0 mA 1 mA 0.625 mA 1.5 mA 1 mA 1.75 mA 1.5 mA 2 mA 1.75 mA 2 mA 2 mA Magnet Pulse Width (microseconds) 250 microseconds 250 microseconds 250 microseconds 250 microseconds 250 microseconds 250 microseconds 250 microseconds 250 microseconds Magnet ON Time (seconds) 60 seconds 60 seconds 60 seconds 60 seconds 60 seconds 60 seconds 60 seconds 60 seconds Number of Magnet Uses 0.9 Does this patient have night settings? -- Yes Normal Output Current (mA) 1.75 mA 1.75 mA Normal Signal Frequency (Hz) 20 Hz 20 Hz Normal Pulse Width (microseconds) 250 microseconds 250 microseconds Normal Signal ON Time (seconds) 30 seconds 30 seconds Normal Signal OFF Time (minutes) 5 minutes 5 minutes [employer] Output Current (mA) 1.875 mA 1.875 mA [employer] Pulse Width (microseconds) 250 microseconds 250 microseconds [employer] ON Time (seconds) 30 seconds 30 seconds Magnet Output Current (mA) 2 mA 2 mA Magnet Pulse Width (microseconds) 250 microseconds 250 microseconds Magnet ON Time (seconds) 60 seconds 60 seconds Output Status 0 0.5 0.75 1.75 1.75 Lead Impedence OK ok OK OK OK OK OK OK DC/DC Code 3537 3475 3337 9055 2491 3087 8327 Elective Replacement Indicator 75-100 75-100 75-100 75-100 75-1000 75-100 75-100 75-100 Multiple values from one day are sorted in reverse-chronological order Assessment and Plan Pancho Mcpherson is a 64 y.o. left handed male with a past medical history significant for Developmental delay, HTN, HLD, Hypothyroidism, Intractable epilepsy s/p VNS, Mental retardation, Recurrent UTI, JAIME, and Cervical spinal stenosis who presents for spell capture and medication adjustments. His neurologic examination is remarkable for bilateral lower extremity spasticity and RLE weakness, which localizes to his prior diagnosed spinal stenosis s/p fusion. Labs are pending. Brain imaging revealed no acute findings, but with bilateral and diffuse microhemorrhages and chronic microvascular disease. Semiology appears consistent with generalized onset seizure vs possible focal to generalized tonic clonic. Appears baseline seizures were well stereotyped with ictal cry, bilateral arm contractures followed by clonic movements. Previously happening 2-3 times a month, can be associated with post-ictal agitation that is controlled at his intermediate by leaving him alone per awning hanger helper and letting him sleep. Has required restrains in past for intermittent agitation (outside of seizures) per chart review. The description of his new event semiology is less consistent with an epileptic etiology (bilateral arms reached forward, head directly forward, pushes staff away when approached). May either be a post-ictal confusion/agitation state after a nocturnal/unwitnessed seizure vs PNEE. Given semiology, the differential diagnosis includes focal epilepsy vs generalized epilepsy vs PNEE. Spell characterization: - Admit to EMU - EEG with video - IV ativan PRN (see seizure action plan below) - Home ASDs: - levetiracetam (Keppra) XR 2g qhs - phenobarbital 48.6mg qAM/PM, 64.8 at bedtime - phenytoin (Dilantin) ER 300mg at bedtime - Lacosamide 250mg bid - Clonazepam 1mg at bedtime - EMU ASD plan: - Continue levetiracetam (Keppra) 2g bid - Continue phenobarbital 48.6mg qAM/PM, 64.8 at bedtime - Continue phenytoin (Dilantin) ER 300mg at bedtime - Continue Lacosamide 250mg bid - Continue Clonazepam 1mg at bedtime - Provoking maneuvers: none Post Ictal Confusion: Yes If so, plan? Redirect Pancho and reduce stimuli in room Post Ictal Agitation: Yes If so, plan? Redirect, allow to sleep, soft wrist restraints if necessary Post Ictal Psychosis: No If so, plan? [x] vEEG/EMU consent signed SEIZURE ACTION PLAN: NURSING STAFF: ADMINISTER LORAZEPAM FIRST - if patient has 2 focal with impaired awareness (FIAS) seizures in a 24 hour period or 1 focal to bilateral tonic clonic (FBTC) or generalized tonic clonic convulsive (GTC) seizures. Please notify DERREK/EMU resident first during the day or LTM attending at night if patient has 1 focal to bilateral tonic clonic seizure (PLEASE REFER TO MandieGENDA TO SEE WHO EMU/LTM ATTENDING IS) Other medical conditions JAIME Concern for improper CPAP seal at home. Otherwise compliant with home CPAP nightly. - Continue nocturnal CPAP - 2L CPAP while sleeping (28% FiO2) - Discussed with respiratory therapy for home CPAP mask assessment - Patient will require outpatient assessment by his CPAP company ([employer]) for changes to his home mask, unable to complete inpatient. - Home CPAP at bedside - Home albuterol prn wheezing - Home budesonide prn wheezing HLD - Home Lipitor 10mg daily GERD - Home Pepcid 20mg bid - Home Calcium Carbonate 500mg bid Hypothyroidism - Home Levothyroxine 237.5mcg daily Recurrent UTI - Home Methenamine Hippurate 1g bid MDD/RUMA Agitation Previously associated with intermittent agitation. Has required soft restraints in past. - Home Paroxetine 50mg daily - Home Seroquel 75mg qAM, 25mg qPM, 250mg at bedtime Diet: DIET REGULAR Code Status: DNR Suspension DVT prophylaxis: subcutaneous lovenox Plan of care discussed with EMU attending, Dr. Jim. Signed, Sim Maher MD PGY-2 Department of Neurology Pager [phone] Cosigned by Mya Jim MD at 12/12/2024 3:55 PM EDT Associated attestation - Mya Jim MD - 12/12/2024 3:55 PM EDT Attending Physician Note (GC) I interviewed and examined this patient with the resident. I reviewed the history and exam detailed in the note. I agree with the medical decision making and plan. Baldo Jim MD, MSE Maintenance Machine Repairer of Neurology Department of Neurology - Epilepsy Division [facility] documented in this encounter [facility] 11-20-2024 Telephone encounter Note LAST OV 09/11/24. NEXT OV 12/17/24. [facility] 11-20-2024 Miscellaneous Notes LAST OV 09/11/24. NEXT OV 12/17/24. documented in this encounter [facility] 11-19-2024 History of Present illness Narrative DOCUMENTATION RECEIVED FOR PT. PROVIDER REVIEWED AND SIGNED. FAXED BACK TO NUMBER PROVIDER AND SCANNED TO [facility] TO BE SCANNED TO CHART. documented in this encounter [facility] 11-19-2024 History of Present illness Narrative Documentation received for pt. Provider reviewed and signed. Faxed back to number provided and sent to [facility] to be scanned into pt chart. documented in this encounter [facility] 11-13-2024 History of Present illness Narrative Documentation received for pt. Log scanned to chart and forwarded to provider for review and advisement. documented in this encounter [facility] 11-13-2024 Note [facility] PATIENT: Pancho Mcpherson DATE / TIME: 11/13/24 10:38 AM POS: Office AGE: 64 y.o. : 1960 RACE: [1] SEX: male PCP: Mahamed Neri DO REFERRAL: No ref. provider found TOS: SUBJECTIVE: Accompanied by nurse. No major concerns. Some emesis last week, but patient had a viral illness. Symptoms resolved and no more nausea or emesis. BM normal. OBJECTIVE: BP 109/70 Pulse 73 Ht 5' 8 Wt 97.5 kg (215 lb) SpO2 91% BMI 32.69 kg/m NAD A&O NLR Abd: soft, nt, nd Inc: [facility] IMAGING PATHOLOGY Final Diagnosis A. Gallbladder, cholecystectomy: Acute and chronic cholecystitis with ulcer and acute serositis. Cholelithiasis and cholesterolosis. ASSESSMENT: Pancho Mcpherson is a 64 y.o. male s/p complicated robotic cholecystectomy PLAN: healing as anticipated. Follow-up as needed. AUTHENTICATED BY JAKUB OGLESBY, ON 11/13/2024 10:40:31 [facility] 11-13-2024 History of Present illness Narrative [facility] PATIENT: Pancho Mcpherson DATE / TIME: 11/13/24 10:38 AM POS: Office AGE: 64 y.o. : 1960 RACE: [1] SEX: male PCP: Mahamed Neri DO REFERRAL: No ref. provider found TOS: SUBJECTIVE: Accompanied by nurse. No major concerns. Some emesis last week, but patient had a viral illness. Symptoms resolved and no more nausea or emesis. BM normal. OBJECTIVE: BP 109/70 Pulse 73 Ht 5' 8 Wt 97.5 kg (215 lb) SpO2 91% BMI 32.69 kg/m NAD A&O NLR Abd: soft, nt, nd Inc: CDI IMAGING PATHOLOGY Final Diagnosis A. Gallbladder, cholecystectomy: Acute and chronic cholecystitis with ulcer and acute serositis. Cholelithiasis and cholesterolosis. ASSESSMENT: Pancho Mcpherson is a 64 y.o. male s/p complicated robotic cholecystectomy PLAN: healing as anticipated. Follow-up as needed. documented in this encounter [facility] 11-12-2024 History of Present illness Narrative Images from the original note were not included. [facility] Pancho Mcpherson was seen in the [facility] at [facility] on 11/12/2024. He is here today for a follow-up accompanied by his caregiver . He was last seen on 04/05/[address] Carrie García MD and with me on 05/30/24 in clinic. History of Present Illness Pancho is a 64 y.o. male who has a past medical history of Developmental delay, Essential hypertension, benign, Hyperlipidemia, Hypothyroidism, Intractable epilepsy, Mental retardation, Prostate enlargement, Recurrent UTI, 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with a history of childhood seizures onset age 6 months that were thought to be provoked by high fever. He has continued to experience intractable seizures since. Originally was meeting developmental milestones but unfortunately began to regress ho has experienced seizures since his last office visit. His last seizure occurred earlier this month. He originally appeared to have success with VNS but starting in February 2024 it appeared he began to have an increase in seizures. requiring nayzilam and was unprovoked. His primary caregiver Viji reports that recently his seizures appear to be more aggressive with the semiology appearing slightly different (Right arm may stiffen but also appear to have arm flailing while having loud vocalizations and unresponsiveness). He will have very loud breathing after with grunting which makes it difficult tell when seizure offset occurs. 11/12/24 INTERVAL HISTORY: Since his last office visit, Pancho continue to experience breakthrough seizures with somewhat changed semiology that appeared to be more severe. It was also discussed at previous visit that his JAIME may have been contributing due to difficulty with mask. Upon closer observation, staff reported that he is adherent with wearing his mask however, due to his nose anatomy, the seal may be affected. Pancho was recently admitted in early October for sepsis and acute cholecystis where it was found he required continuous O2 however, this was changed to nocturnal 02 upon arrival to ED. He did undergo a nocturnal O2 study while inpatient and was found to require this with his CPAP. Ultimately, he was discharged home on nocturnal 02 or while napping. He is scheduled to undergo a continuous pulse oximetry home test on Wednesday 11/15 and will follow up with sleep medicine on Saturday 11/18. Since his discharge from the hospital he has not experienced any breakthrough seizures. Prior to that, he was experiencing them usually 1-2 times per month. Pertinent Seizure History Per Dr García 04/05/23: His seizures after having an event of high fever around age of 6 months. Thereafter his seizures have always remain difficult to control with anti seizure drug therapy. As caregiver, his seizures are characterized as loud vocalization followed by limb stiffening and unresponsiveness lasting for a minute followed by post ictal period of confusion and sleepiness. Denies any well defined prodrome or aura (visual, auditory or olfactory hallucinations, taste sensation, ning vu etc..) Seizure occurrence time: Denies any diurnal or nocturnal (either during sleep or upon awakening) pattern. Triggers: Denies any known triggers like stress, sleep deprivation, menses, flashing lights etc.. Frequency: 2-3 per month Longest duration of seizure freedom: Unknown History of status epilepticus : No documented history of SE or history for cluster of seizures. Seizure risk factors: Developmental delay: As per sister, Born on term thorough normal vaginal delivery. Achieved developmental milestones (language and motor milestones) on time but then started to regress cognitively and also required physical therapy . Denies any educational difficulties in school. History of febrile seizures: No. Brain infection (Meningitis or encephalitis) : No. Stroke : No. Head injury complicated with LOC : No. Alcohol withdrawal seizures : No. Use of cocaine or other recreational drugs: No. Family history of epilepsy: No. Anti-seizure drug (ASD) history: Current ASD: Pheno-Paola 32.4 mg -32.4 mg -64.8 mg , Dilantin 300 mg at bedtime , LEV 2000 mg BID , Lacosamide 200 mg BID Klonopin 1 mg at bedtime Past ASD : Rescue ASD : PERTINENT LABS, NEURODIAGNOSTIC STUDIES, NEUROIMAGING AND NEUROPSYCHOLOGICAL TESTING Prior evaluation: MRI brain : 2021 reported negative for any intracranial pathologies except for WM changes EEG : none in our system Nuclear imaging : PAST MEDICAL, FAMILY, SOCIAL HISTORY, ALLERGIES AND MEDICATIONS Past Medical History He has a past medical history of Developmental delay, Essential hypertension, benign, Hyperlipidemia, Hypothyroidism, Intractable epilepsy, Mental retardation, Prostate enlargement, Recurrent UTI, 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 He has no past medical history of Pacemaker. Past Family History family history includes Alcoholism in his brother and father; Lipid Disorder in his mother; Schizophrenia in his father. Past Social History He reports that he has never smoked. He has never used smokeless tobacco. He reports that he does not drink alcohol and does not use drugs. Past Surgical History has a past surgical history that includes reduction open orbital floor fx with implant or bone graft (Right, 06/05/2014); laparotomy exploratory (2019); leg surgery; eye surgery (Right); fusion anterior interbody cervical (N/A, 05/26/2021); graft spine surgery only allograft anterior add-on px (N/A, 05/26/2021); insertion spinal instrumentation anterior add-on px (ip only) (N/A, 05/26/2021); fusion anterior interbody each addl interspace add-on px (N/A, 05/26/2021); monitoring neurophysiology intraoperative add-on px (N/A, 05/26/2021); microsurgical techniques w/ operating microscope add-on px (N/A, 05/26/2021); discectomy anterior cervical (N/A, 05/26/2021); removal spinal instrumentation anterior (N/A, 05/26/2021); fusion anterior interbody cervical each addl interspacex (N/A, 05/26/2021); insertion neurostimulator electrode & generator cranial nerve (eg vagus) open (N/A, 08/30/2023); and guidance fluoroscopic needle placement add-on px (N/A, 08/30/2023). Allergies He has no known allergies. Medications Outpatient Medications Prior to Visit Medication Sig Dispense Refill Acetaminophen 325 MG tablet Take 2 tablets by mouth 2 times daily. atorvastatin 10 MG tablet Take 1 tablet by mouth daily every morning. calcium carbonate (Nils-Gest Antacid) 500 MG Chew Tab tablet Chew 1 tablet 2 times daily. Cholecalciferol (Vitamin D-3) 25 MCG (1000 UT) capsule Take 2 capsules by mouth daily every morning. clonazePAM 1 MG tablet Take 1 tablet by mouth at bedtime. 30 tablet 5 cyanocobalamin 500 MCG tablet Take 2 tablets by mouth daily. (Patient taking differently: Take 2 tablets by mouth daily every morning.) diazePAM, 20 MG Dose, (Valtoco 20 MG Dose) 2 x 10 MG/0.1ML Liquid Therapy Pack Give 10 mg in ONE nostril as needed for convulsive seizure lasting 5 minutes or longer. MAX 2 DOSES IN 7 DAYS. 4 Each 1 faMOTIdine 20 MG tablet Take 1 tablet by mouth 2 times daily. Before meals folic acid 1 MG tablet Take 1 tablet by mouth daily every morning. Lacosamide (Vimpat) 200 MG tablet Take 1 tablet by mouth every 12 hours. 60 tablet 5 Lacosamide 50 MG tablet Take 1 tablet by mouth every 12 hours. 60 tablet 5 levETIRAcetam 500 MG Tab SR 24 HR Take 4 tablets by mouth 2 times daily. 240 tablet 5 Levothyroxine 100 MCG tablet Take 1 tablet by mouth every morning before breakfast. Takes with 137mcg for total dose of 227mcg QAM levothyroxine 137 MCG tablet Take 1 tablet by mouth daily every morning. Takes with 100mcg tab for total dose of 227mcg QAM Methenamine Hippurate 1 g tablet Take 1 tablet by mouth 2 times daily. PARoxetine 10 MG tablet Take 1 tablet by mouth daily every morning. Takes with 40mg for Total dose 50mg QAM 30 tablet 5 PARoxetine 40 MG tablet Take 1 tablet by mouth daily every morning. Total dose 50mg 30 tablet 5 PHENobarbital 16.2 MG tablet Take 1 tablet by mouth 2 times daily. (7 am and 1 pm with 32.4 mg tablets) 60 tablet 5 PHENobarbital 32.4 MG tablet 1 tab po in AM, 1 tab at 1pm, and two tabs at bedtime (7 am,1 pm, 7pm) 120 tablet 5 Phenytoin extended 100 MG capsule Take 3 capsules by mouth at bedtime. 90 capsule 5 Polyethylene glycol 17 g Pack packet Take 1 packet by mouth every evening. At 5PM quetiapine 200 MG tablet Take 1 tablet by mouth at bedtime. Total HS dose 250mg 30 tablet 5 QUEtiapine 25 MG tablet Take 1 tablet by mouth daily. At 1PM 30 tablet 5 QUEtiapine 50 MG tablet Take 1 tablet by mouth 2 times daily. In morning and at bedtime. Total bedtime dose 250mg 60 tablet 5 senna 8.6 MG tablet Take 1 tablet by mouth 2 times daily. No facility-administered medications prior to visit. REVIEW OF SYSTEMS No question data found. Double Vision - Dizziness - Sleepiness + Blurred Vision - Unsteadiness - Shaky hands + Upset Stomach + Weight Gain - Headaches - Nervousness - Depression + Memory problems - Disturbed Sleep - Difficulty Concentrating - Rashes - Hair loss - Tiredness + Constipation - Are you interested in learning about clinical trials for treatment of your epilepsy that we offer at the [facility]? No If you have tried 2 or 3 anti-seizure medications and your seizures are still not controlled, are you interested in learning about surgical options for your epilepsy that we can offer at the [facility]? No Neurological Disorders Depression Inventory for Epilepsy (NDDI-E) Everything is a struggle: Sometimes Nothing I do is right: Never Feel guilty: Never I'd be better off : Never Frustrated: Rarely Difficulty finding pleasure: Never Total NDDI-E Score: 9 11/12/2024 10:00 AM 05/30/2024 12:00 PM RUMA 7 Anxiety Screen Feeling nervous, anxious or on edge Several days Several days Not being able to stop or control worrying Several days Several days Worrying too much about different things Not at all Several days Trouble relaxing Several days Several days Being so restless that it is hard to sit still Not at all Not at all Becoming easily annoyed or irritable Several days More than half the days Feeling afraid as if something awful might happen Not at all Not at all RUMA-7 Total Score 4 6 If you checked off any problems, how difficult have these problems made it for you to do your work, take care of things at home, or get along with other people? Extremely difficult Not difficult at all No data to display PHYSICAL EXAM Vitals: 11/12/24 1001 BP: 128/68 Pulse: 85 Resp: 16 Temp: 97.5 degrees F (36.4 degrees C) TempSrc: Infrared SpO2: 92% Weight: 94.7 kg (208 lb 12.8 oz) Height: 1.727 m (5' 8) Body mass index is 31.75 kg/m . General: drowsy, drowsy, slightly cooperative, no distress, , appears stated age Mental status: drowsy, oriented to self; attention impaired Speech/language: limited speech, dysarthric CRANIAL NERVES EOMI,no nystagmus Hearing is grossly intact. Gait: wheelchair dependent for mobility PERTINENT LABS, NEURODIAGNOSTIC STUDIES, NEUROIMAGING, AND NEUROPSYCHOLOGY TESTING LABS:No results found for: PHENYTOIN, PHENOBARBITA, VALPROICACTT, VALPROICACID, VALPROACIDT, VALPROICACFR, CARBAMAZTTL, CARBAMAZEPIN, CARBAMAZFREE, CARBAMAZEPFR, OXCARBAZEPIN, YLACO, ZONISAMIDE, PREGABALIN, LAMOTRIGINE, TOPIRAMSO, LEVETIRACETA Lab Results Component Value Date WBC 9.77 08/16/2023 HGB 14.6 08/16/2023 HCT 45.0 08/16/2023 MCV 95.7 (H) 08/16/2023 RBCDISTRIBU 13.4 08/16/2023 MPV 10.2 08/16/2023 PLATELET 237 08/16/2023 Lab Results Component Value Date SODIUM 138 08/16/2023 POTASSIUM 4.4 08/16/2023 CHLORIDE 101 08/16/2023 CO2 32 (H) 08/16/2023 BUN 21 08/16/2023 CREATSERUM 0.58 (L) 08/16/2023 GLUCOSE 97 08/06/2021 CALCIUM 9.1 08/06/2021 MAGNESIUM 2.2 08/06/2021 HGBA1C 5.5 10/10/2024 ESTAVGGLUCOS 105 08/16/2023 TP 6.8 11/17/2021 ALBUMIN 4.0 08/06/2021 BILITOTAL 0.2 08/06/2021 BILIDIRECT <0.1 08/06/2021 ALKPHOS 129 (H) 08/06/2021 ALT 38 08/06/2021 AST 24 08/06/2021 LIPASE 37 08/06/2021 Lab Results Component Value Date TSH 3.191 08/16/2023 B12 362 11/17/2021 Neurodiagnostics: ROUTINE EEG IMPRESSION 04/18/2023: CLINICAL IMPRESSION: This is an abnormal prolonged EEG due to the presence of moderate diffuse slowing, indicative of a moderate non-specific encephalopathy. Dictated By: Srini Bowen MD Neuroimaging: BRAIN MRI WO CONTRAST IMPRESSION 12/08/21: No acute intracranial abnormality or mass effect. Neuropsychology Testing: NONE ON FILE 09/20/2023 10/18/2023 11/22/2023 02/22/2024 05/30/2024 06/27/2024 11/12/2024 NEURO VNS Date Placed 08/30/2023 08/30/2023 08/30/2023 08/30/2023 08/30/2023 08/30/2023 Model Number 1000 1000 1000 1000 1000 1000 Serial Number [id number] Output Current (mA) 0.5 mA 0 mA 0.75 mA 0.5 mA 1.25 mA 0.75 mA 1.5 mA 1.25 mA 1.75 mA 1.5 mA 1.75 mA 1.75 mA Signal Frequency (Hz) 20 Hz 20 Hz 20 Hz 20 Hz 20 Hz 20 Hz 20 Hz 20 Hz Pulse Width (microseconds) 250 microseconds 250 microseconds 250 microseconds 250 microseconds 250 microseconds 250 microseconds 250 microseconds 250 microseconds Signal ON Time (seconds) 30 seconds 30 seconds 30 seconds 30 seconds 30 seconds 30 seconds 30 seconds 30 seconds Signal OFF Time (minutes) 3 minutes 5 minutes 3 minutes 3 minutes 3 minutes 3 minutes 3 minutes 3 minutes Autostim Output Current (mA) 0 mA 0 mA 0.875 mA 0 mA 1.375 mA 0.875 mA 1.625 mA 1.375 mA 1.875 mA 1.75 mA 1.875 mA 1.875 mA Autostim Pulse Width (microseconds) 250 microseconds 250 microseconds 250 microseconds 250 microseconds 250 microseconds 250 microseconds 250 microseconds Autostim ON Time (seconds) 30 seconds 30 seconds 30 seconds 30 seconds 30 seconds 30 seconds 3 seconds Tachycardia Detection On On On On On Heartbeat Detection Sensitivity 3 3 3 3 3 Threshold for Autostim (%) 20 % 20 % 20 % 20 % 20 % Number of Autostim Uses 145.12 174.7 Magnet Output Current (mA) 0.625 mA 0 mA 1 mA 0.625 mA 1.5 mA 1 mA 1.75 mA 1.5 mA 2 mA 1.75 mA 2 mA 2 mA Magnet Pulse Width (microseconds) 250 microseconds 250 microseconds 250 microseconds 250 microseconds 250 microseconds 250 microseconds 250 microseconds 250 microseconds Magnet ON Time (seconds) 60 seconds 60 seconds 60 seconds 60 seconds 60 seconds 60 seconds 60 seconds 60 seconds Number of Magnet Uses 0.9 Does this patient have night settings? -- Yes Normal Output Current (mA) 1.75 mA 1.75 mA Normal Signal Frequency (Hz) 20 Hz 20 Hz Normal Pulse Width (microseconds) 250 microseconds 250 microseconds Normal Signal ON Time (seconds) 30 seconds 30 seconds Normal Signal OFF Time (minutes) 5 minutes 5 minutes Autostim Output Current (mA) 1.875 mA 1.875 mA Autostim Pulse Width (microseconds) 250 microseconds 250 microseconds Autostim ON Time (seconds) 30 seconds 30 seconds Magnet Output Current (mA) 2 mA 2 mA Magnet Pulse Width (microseconds) 250 microseconds 250 microseconds Magnet ON Time (seconds) 60 seconds 60 seconds Output Status 0 0.5 0.75 1.75 1.75 Lead Impedence OK ok OK OK OK OK OK OK DC/DC Code 3537 3475 3337 3000 2837 2762 2587 Elective Replacement Indicator 75-100 75-100 75-100 75-100 75-1000 75-100 75-100 75-100 Multiple values from one day are sorted in reverse-chronological order During this visit, I interrogated the device and performed a device diagnostics. There was no indication of system malfunctioning or near end of service. The communication, output status, and lead status were functioning appropriately. I explained signs and symptoms associated with device malfunctioning and counseled accordingly. The time of device assessment was less then thirty minutes. The total face to face time was in addition to VNS procedures. Billing: VNS: VNS Complex Reprogramming (>3 changes) CPT code 11849 Assessment and Plan Assessment: Pancho is a pleasant 64 y.o. male with The encounter diagnosis was Generalized idiopathic epilepsy and epileptic syndromes, intractable, without status epilepticus.who presents to clinic for hospital follow up follow acute cholecystits. He has unfortunately been dealing with increased seizures for several months that were thought to possibly be due to VNS contributing/worsening his known JAIME. This was proven to be true in his most recent hospitalization thus I believe keeping his regimen the same (with the addition of Vimpat increase from hospitalization to 250 mg twice daily) to assess this further in the coming weeks. He is having a pulse ox nocturnal study this week so hopefully this will provide more insight into his oxygenation. We can also look at this while he is in the EMU. He may also benefit from medication adjustments however, this would be safer in the Epilepsy Monitoring Unit. There is also a question to his semiology potentially changing (they described potentially RUE stiffening followed by BUE complex/hypermotor movements which are slightly different from previous descriptions. Due to this change in progress I have recommended the following: Plan: 1. Generalized idiopathic epilepsy and epileptic syndromes, intractable, without status epilepticus (Primary) - interrogated VNS today and is working properly - no changes to ASM regimen today - NE ELEC JEAN IMPLT NPGT PHYS/QHP W/O PROGRAMMING - continue ASM regimen the same: Vimpat 250 mg twice daily; phenytoin ER 300 mg daily at bedtime; phenobarbital 48.6 mg in AM and 1 pm, 64.8 mg at bedtime, clonazepam 1 mg at bedtime; Keppra XR 2000 mg at bedtime - EMU: Please consult respiratory while inpatient to assess his home mask - due to his face anatomy he may need a different set up. I also recommend continuous cardiac/Sp02 monitoring during this stay as I strongly suspect hypoxia is a foley factor here. We may not be able to wean any of his medications during this stay which is fine. Please obtain ASM levels on admission. - We discussed factors that lower seizure threshold including non-adherence, extreme temperature changes, sleep deprivation, acute illness, decongestants, stress, fatigue and others. Missing doses of your seizure meds can cause breakthrough seizures. - Reviewed seizure action plan, they will use the following: diazepam (Valtoco) nasal spray. Will plan to create SAP for his care staff to review, happy to answer additional questions. Reviewed seizure videos with ictal cry and sonorous breathing as examples of what typical convulsive seizures look like. - We reviewed the following safety issues: occupation/work related injuries including not to work in close proximity of machines with moving parts, not to work in high places, bathing/swimming, falls/injury prevention, and risk for skin hugo. We reviewed seizure first aid, seizure rescue medications and when to call . We discussed seizure first aid: Generally speaking, emergency staff should be notified for seizure activity lasting longer than 5 minutes. Encouraged use of [employer] to send messages to provider as needed for questions and concerns or can call our clinic @ [phone]. He will return in [address] García, 6 months with me or sooner if clinically indicated. Signed, Kaushal MALDONADO, ASSEMBLY STOCK SUPERVISOR-OPERATIONS AND MAINTENANCE SPECIALIST [facility] Department of Neurology - Epilepsy Division [address] [place] [address] - 7th floor [place] [phone] Pager: [phone] Time to complete visit: I spent approximately 36 minutes reviewing the chart prior to the appointment, in face to face counseling with the patient, and with documentation after the visit. Note to patient: The 21st Century Cures Act makes medical notes like these available to patients in the interest of transparency. However, be advised this is a medical document. It is intended as [id number] communication. It is written in medical language and may contain abbreviations or verbiage that are unfamiliar. It may appear blunt or direct. Medical documents are intended to carry relevant information, facts as evident, and the clinical opinion of the practitioner. documented in this encounter [facility] 11-12-2024 Instructions DAVID Rodriguez - 11/12/2024 10:00 AM EDT Please remember to bring his CPAP to the Epilepsy Monitoring Unit on 12/11/24. For now, no changes to his anti-seizure medications or VNS We will check his ASM levels on admission to the EMU documented in this encounter [facility] 11-01-2024 Note HPI Chief Complaint Patient presents with Nail Care Nail Care Patient is a pleasant 63-year-old male who comes in today with his caregivers for thick nails and to get his nails cut. Past Medical History: Diagnosis Date Balance problem Depression Disease of thyroid gland Disorientation Fatigue Hearing loss Hyperlipidemia Lack of coordination Memory loss Seizures (HCC) Speech abnormality Past Surgical History: Procedure Laterality Date CHOLECYSTECTOMY ROBOTIC XI N/A 10/24/2024 Procedure: ROBOTIC CHOLECYSTECTOMY WITH LYSIS OF ADHESION; Surgeon: Jakub Oglesby MD; Location: Main OR; Service: Gen-Robotics; Laterality: N/A; Social History Socioeconomic History Marital status: Single Tobacco Use Smoking status: Never Vaping Use Vaping status: Never Used Substance and Sexual Activity Alcohol use: Never Social Drivers of Health Food Insecurity: No Food Insecurity (10/26/2024) Hunger Vital Sign Worried About Running Out of Food in the Last Year: Never true Ran Out of Food in the Last Year: Never true Transportation Needs: No Transportation Needs (10/26/2024) PRAPARE - Transportation Lack of Transportation (Medical): No Lack of Transportation (Non-Medical): No Housing Stability: Low Risk (10/26/2024) Housing Stability Vital Sign Unable to Pay for Housing in the Last Year: No Number of Times Moved in the Last Year: 0 Homeless in the Last Year: No Review of Systems Physical Exam Patient is AOx3. Linear and appropriate humor and thought process. Vascular: DP PT pulses are poorly palpable. CFT is delayed with moderate pitting edema. Skin is warm to cool proximal to distal and shiny in nature. Neuro: Blunted Babinski's is blunted. Musculoskeletal: Muscle strength is 2 out of 5. Ankle subtalar is full and pain-free. Nails left 1-3 for 5 and right foot 1-3 for 5 are thickened dystrophic and mycotic. Impression/Plan Problem List Items Addressed This Visit None Visit Diagnoses Peripheral vascular disease, unspecified - Primary Patient is a chapo 63-year-old 63-year-old male with peripheral arterial disease, venous insufficiency, likely onychomycosis to 10 nails. -For the mycotic portion, does require debridement in light of his arterial disease. This is to reduce his limb loss risk score. PVRs reviewed and are triphasic therefore no vascular intervention warranted at this time Sharply debrided and debulk in height and length 10 onychomycotic nails hide at length with a sharp pair of nail nippers consistent with a q8 modifier. Okay to discontinue Penlac Low medical complexity decision making. Follow-up in 3 months for nail care. AUTHENTICATED BY DANNY TORRES JR., ON 11/01/2024 10:24:55 [facility] 11-01-2024 History of Present illness Narrative HPI Chief Complaint Patient presents with Nail Care Nail Care Patient is a chapo 63-year-old male who comes in today with his caregivers for thick nails and to get his nails cut. Past Medical History: Diagnosis Date Balance problem Depression Disease of thyroid gland Disorientation Fatigue Hearing loss Hyperlipidemia Lack of coordination Memory loss Seizures (HCC) Speech abnormality Past Surgical History: Procedure Laterality Date CHOLECYSTECTOMY ROBOTIC XI N/A 10/24/2024 Procedure: ROBOTIC CHOLECYSTECTOMY WITH LYSIS OF ADHESION; Surgeon: Jakub Oglesby MD; [place] [facility] [place]; Service: Gen-Robotics; Laterality: N/A; Social History Socioeconomic History Marital status: Single Tobacco Use Smoking status: Never Vaping Use Vaping status: Never Used Substance and Sexual Activity Alcohol use: Never Social Drivers of Health Food Insecurity: No Food Insecurity (10/26/2024) Hunger Vital Sign Worried About Running Out of Food in the Last Year: Never true Ran Out of Food in the Last Year: Never true Transportation Needs: No Transportation Needs (10/26/2024) PRAPARE - Transportation Lack of Transportation (Medical): No Lack of Transportation (Non-Medical): No Housing Stability: Low Risk (10/26/2024) Housing Stability Vital Sign Unable to Pay for Housing in the Last Year: No Number of Times Moved in the Last Year: 0 Homeless in the Last Year: No Review of Systems Physical Exam Patient is AOx3. Linear and appropriate humor and thought process. Vascular: DP PT pulses are poorly palpable. CFT is delayed with moderate pitting edema. Skin is warm to cool proximal to distal and shiny in nature. Neuro: Blunted Babinski's is blunted. Musculoskeletal: Muscle strength is 2 out of 5. Ankle subtalar is full and pain-free. Nails left 1-3 for 5 and right foot 1-3 for 5 are thickened dystrophic and mycotic. Impression/Plan Problem List Items Addressed This Visit None Visit Diagnoses Peripheral vascular disease, unspecified - Primary Patient is a pleasant 63-year-old 63-year-old male with peripheral arterial disease, venous insufficiency, likely onychomycosis to 10 nails. -For the mycotic portion, does require debridement in light of his arterial disease. This is to reduce his limb loss risk score. PVRs reviewed and are triphasic therefore no vascular intervention warranted at this time Sharply debrided and debulk in height and length 10 onychomycotic nails hide at length with a sharp pair of nail nippers consistent with a q8 modifier. Okay to discontinue Penlac Low medical complexity decision making. Follow-up in 3 months for nail care. documented in this encounter [facility] 10-29-2024 Note Neurology Inpatient Consult [facility] 10/29/2024 Patient: Pancho Mcpherson Date of : 1960 (64 y.o.) Referring Provider: Refer to consult order in electronic medical record PCP: Mahamed Neri, ASSESSMENT: 64 y.o. male presented to [facility] on 10/26/2024 with with history of medically refractory epilepsy, hypertension, hyperlipidemia, developmental delay, hypothyroidism, prostate enlargement, sleep apnea presented to [facility] on 10/26/2024 from assisted living facility with hypoxia. Of note, the patient was discharged from the hospital on the same day (10/26/2024) after being managed for acute cholecystitis, completed antibiotics as inpatient, patient was sent to assisted living facility. Neurology was consulted after the patient had an episode of seizures lasting less than a minute, that spontaneously self resolved on the evening of 10/28/2024. Seizure appear to be provoked by desaturation to 82% on SpO2. The patient had not been compliant with his CPAP, and had been on 2 L nasal cannula. I suspect that his seizures were triggered by hypoxia, which has also been noted in the past. Currently vital signs are stable, with no acute distress observed. Neurological examination revealed increased muscle tone and dyspraxic movements in the upper extremities, with reduced strength in the lower extremities. Sensation is intact, and coordination appears unaffected. Impression Medically refractory epilepsy History of developmental delay History of sleep apnea with hypoxia induced seizures History of Cervical Cord Stenosis and Myelomalacia, Status Post Corrective Surgery: PLAN: Medically refractory epilepsy - Keppra level mildly supratherapeutic, phenytoin level (free and total level, subtherapeutic), Vimpat level still pending -Would continue his home medications, continue lacosamide 250 mg twice daily to provide better coverage should he have further hypoxia -He follows up with [facility] outpatient. Appears to have had a VNS placed as well, with settings recently changed. Will defer to his outpatient neurologist for any further changes should he have recurrent seizures. Substitution of phenobarbital with new or antiseizure agents such as Xcopri can also be considered. -Ativan 2 mg for bilateral tonic-clonic seizures lasting greater than 2 minutes Will sign off at this time. Please contact for any further questions or concerns. Pinky Poole MD Staff Neurologist DIAGNOSTIC TESTING SUMMARY: Pending Lab and Radiology Results Order Current Status Lacosamide In process Resulted Testing: (MRI/CT/XR, EEG, EMG, CSF, Cardiac, Labs) Labs 10/28/2024-CBC, CMP unremarkable Keppra 48.6 Total phenytoin level 7.4 (subtherapeutic) Free phenytoin level 0.64 (subtherapeutic) SUBJECTIVE: Chief Complaint/Reason for Consult: Seizures Informant(s): Patient, Care Team/Chart History of Present Illness: Pancho Mcpherson is a 64 y.o. male with history of hypertension, hyperlipidemia, seizure disorder, developmental delay, hypothyroidism, prostate enlargement, sleep apnea presented to [facility] on 10/26/2024 from assisted living facility with hypoxia. Of note, the patient was discharged from the hospital on the same day (10/26/2024) after being managed for acute cholecystitis, completed antibiotics as inpatient, patient was sent to assisted living facility. Neurology was consulted after the patient had an episode of seizures lasting less than a minute, that spontaneously self resolved on the evening of 10/28/2024. Seizure appear to be provoked by desaturation to 82% on SpO2. The patient had not been compliant with his CPAP, and had been on 2 L nasal cannula. Pertinent Seizure History: The patient's seizures began following an episode of high fever at approximately six months of age. Since then, seizure control has been challenging despite comprehensive anti-seizure drug therapy. Caregivers describe the seizures as characterized by loud vocalization, followed by limb stiffening and unresponsiveness, lasting about a minute, with a subsequent postictal period of confusion and sleepiness. The patient denies any prodrome or aura and reports no specific seizure triggers. Seizure frequency is approximately 2-3 episodes per month, with no documented history of status epilepticus. Seizure Risk Factors and History: Developmental delay noted after initial normal development, with subsequent regression. No history of febrile seizures, brain infections, stroke, or significant head injury. No family history of epilepsy. Current Anti-Seizure Drug (ASD) Therapy: Phenobarbital, Dilantin, Levetiracetam, Lacosamide, and Clonazepam are currently prescribed. The patient has a history of polypharmacy with ASDs. Pertinent Labs and Neurodiagnostic Findings: MRI of the brain in 2021 showed no intracranial pathologies aside from white matter (more content not included)... [facility] 10-29-2024 Note HMS DISCHARGE SUMMAR Y -- [facility] Pancho Mcpherson Admitted: 10/26/2024 Discharge Date: 10/29/2024 PCP Handoff Recommended Outpatient Testing none Results Pending At Discharge Vimpat level Clinical Summary Pancho Mcpherson is a 64 y.o. male patient of Mahamed Neri DO with history of hypertension, hyperlipidemia, seizure disorder, developmental delay, hypothyroidism, prostate enlargement, sleep apnea presented to [facility] on 10/26/2024 with hypoxia, this patient was discharged from the hospital today October 26 after being managed for acute cholecystitis, completed antibiotics as inpatient, patient was sent to assisted living facility, upon arrival patient was hypoxic, he was brought back to the emergency room, upon my evaluation, patient doing well, he denies shortness of breath, he denies right upper quadrant pain, he denies cough. Nocturnal hypoxemia History of sleep apnea Discharged on 10/26 following hospital admission for acute cholecystitis on 10/22 Sent back to the ED by intermediate on 10/26/2024 since he was hypoxic on room air on arrival to the group Chest x-ray without acute process Weaned off of oxygen to room air saturations 95 to 96% without dyspnea while patient was in ED Continue CPAP at night and during naps during the day Patient completed a nocturnal oxygen study while inpatient and qualified for 2 L oxygen via nasal cannula when sleeping. Patient did not qualify for oxygen during the day per RT Discussed the case with the sister who is the POA. Per POA patient has been consistently using CPAP at the intermediate Recent acute cholecystitis S/p cholecystectomy 10/24, status post IV Zosyn. No antibiotics on discharge per surgery Patient to follow-up with general surgery in 2 weeks as an outpatient Denies any abdominal pain, nauseousness, or vomiting. Medical refractory epilepsy History of developmental delay Hypoxia induced seizures Intellectual disability, developmental delay On antiepileptics including Vimpat, Keppra phenobarbital and phenytoin, mood stabilizers including Seroquel and Paxil Patient had an episode of seizure that lasted less than a minute, resolved spontaneously on on 10/28 induced by hypoxia. Patient was evaluated by Dr. Poole from neurology who recommend increasing patient's Vimpat to 250 mg twice daily. Advised patient to follow-up with his neurology team at [facility] on discharge Hypothyroidism On thyroid placement therapy TSH 2.17 Benign prostatic hypertrophy On Flomax Hyperlipidemia Continue atorvastatin Discharge Medications Discharge Medications Modified Medications Details * lacosamide 50 mg Tab Commonly known as: Vimpat What changed: You were already taking a medication with the same name, and this prescription was added. Make sure you understand how and when to take each. Take 1 (one) tablet (50 mg total) by mouth 2 (two) times a day For a total of 250mg bid . Quantity: 60 tablet * lacosamide 200 mg Tab Commonly known as: VIMPAT What changed: Another medication with the same name was added. Make sure you understand how and when to take each. Take 1 (one) tablet (200 mg total) by mouth every 12 (twelve) hours . Quantity: 60 tablet * There are duplicate medications prescribed to the patient Medications To Continue Details acetaminophen 325 MG tablet Commonly known as: TYLENOL Take 2 (two) tablets (650 mg total) by mouth 2 (two) times a day . atorvastatin 10 MG tablet Commonly known as: LIPITOR Take 1 (one) tablet (10 mg total) by mouth daily . calcium carbonate 200 mg calcium (500 mg) chewable tablet Commonly known as: TUMS Chew and Swallow 1 (one) tablet (500 mg total) 2 (two) times a day . cholecalciferol (vitamin D3) 1,000 unit tablet Take 2 (two) tablets (2,000 Units total) by mouth daily . ciclopirox 8 % solution Commonly known as: PENLAC Apply topically nightly Apply over toe nails and surrounding skin. Apply daily over previous coat. After seven (7) days, may remove with alcohol and continue cycle. . clonazePAM 1 MG tablet Commonly known as: KLONOPIN Take 1 (one) tablet (1 mg total) by mouth at bedtime . cyanocobalamin 1000 MCG tablet Commonly known as: B-12 Take 1 (one) tablet (1,000 mcg total) by mouth daily . famotidine 20 MG tablet Commonly known as: PEPCID Take 1 (one) tablet (20 mg total) by mouth 2 (two) times a day . folic acid 1 MG tablet Commonly known as: FOLVITE Take 1 (one) tablet (1 mg total) by mouth daily . HEMORRHOIDAL CREAM RECT Insert 1 Application into the rectum 2 (two) times a day To affected area am and pm plus as needed . hydrocortisone 1 % cream Apply topically 2 (two) times a day as needed (itchiness) B/L anterior notch of ear . levETIRAcetam 500 mg 24 hr tablet Commonly known as: KEPPRA XR Take 4 (four) tablets (2,000 mg total) by mouth 2 (two) times a da (more content not included)... [facility] 10-28-2024 Note [facility] [place] PROGRESS NOTE Assessment and Plan Pancho Mcpherson is a 64 y.o. male patient of Mahamed Neri DO with history of hypertension, hyperlipidemia, seizure disorder, developmental delay, hypothyroidism, prostate enlargement, sleep apnea presented to [facility] on 10/26/2024 with hypoxia, this patient was discharged from the hospital today October 26 after being managed for acute cholecystitis, completed antibiotics as inpatient, patient was sent to assisted living facility, upon arrival patient was hypoxic, he was brought back to the emergency room, upon my evaluation, patient doing well, he denies shortness of breath, he denies right upper quadrant pain, he denies cough. Hypoxemia? Nocturnal hypoxemia? Discharged following hospital admission for acute cholecystitis to intermediate on 10/26/2024 off of oxygen. Sent back in the ED by intermediate on on 10/26/2024. Of note no retirement at intermediate over the weekend. Chest x-ray without acute process Weaned off of oxygen during my evaluation while patient was awake watching TV and saturations 95 to 96% without dyspnea. Continuous pulse ox, monitor for nocturnal oxygen need, may have underlying JAIME RT to evaluate for home oxygen need prior to discharge History of sleep apnea Continue CPAP Recent acute cholecystitis: Completed antibiotics: Denies any abdominal pain, nauseousness, or vomiting. Seizure disorder Intellectual disability, developmental delay On antiepileptics including Vimpat, Keppra phenobarbital and phenytoin, mood stabilizers including Seroquel and Paxil Hypothyroidism On thyroid placement therapy TSH 2.17 Benign prostatic hypertrophy On Flomax Hyperlipidemia On statin therapy Discharge Planning Medically Stable for Discharge Date: 10/28/2024 Patient requires continued hospitalization due to: Monitoring for nocturnal hypoxemia [facility] Quality Measures DVT Prophylaxis: lovenox Pandey Catheter: absent Code Status full Primary Contact Information Subjective Patient examined at bedside Denies any complaints this morning Discussed the case with patient Sister Judy BLOUNT at bedside No acute events overnight Objective BP (!) 155/78 Pulse 77 Temp 98.3 degrees F (36.8 degrees C) (Axillary) Resp (!) 20 Ht 5' 8 Wt 97.5 kg (215 lb) SpO2 (!) 86% BMI 32.69 kg/m Physical Examination General Appearance: No acute distress HEENT: Head- normocephalic; Eyes- EOMI, sclera anicteric; Throat- mucous membranes moist Cardiovascular: regular rate and rhythm; normal S1, S2; no murmurs, rubs, clicks or gallops; peripheral edema absent Respiratory: lungs clear to auscultation; without wheezes, rales or rhonchi; on room air Abdomen: soft, non-tender, non-distended Neurological: oriented x 1; normal speech; no focal findings or movement disorder noted Musculoskeletal: no significant deformity or tenderness to palpation Skin: normal coloration Psych: normal mood and affect AUTHENTICATED BY MICHAEL OCHOA, ON 10/28/2024 14:16:29 [facility] 10-27-2024 Note [facility] [place] PROGRESS NOTE Assessment and Plan Pancho Mcpherson is a 64 y.o. male patient of Mahamed Neri DO with history of hypertension, hyperlipidemia, seizure disorder, developmental delay, hypothyroidism, prostate enlargement, sleep apnea presented to [facility] on 10/26/2024 with hypoxia, this patient was discharged from the hospital today October 26 after being managed for acute cholecystitis, completed antibiotics as inpatient, patient was sent to assisted living facility, upon arrival patient was hypoxic, he was brought back to the emergency room, upon my evaluation, patient doing well, he denies shortness of breath, he denies right upper quadrant pain, he denies cough. Hypoxemia? Nocturnal hypoxemia? Discharged following hospital admission for acute cholecystitis to intermediate on 10/26/2024 off of oxygen. Sent back in the ED by intermediate on on 10/26/2024. Of note no retirement at intermediate over the weekend. Chest x-ray without acute process Weaned off of oxygen during my evaluation while patient was awake watching TV and saturations 95 to 96% without dyspnea. Continuous pulse ox, monitor for nocturnal oxygen need, may have underlying JAIME RT to evaluate for home oxygen need prior to discharge Recent acute cholecystitis: Completed antibiotics: Denies any abdominal pain, nauseousness, or vomiting. Seizure disorder Intellectual disability, developmental delay On antiepileptics including Vimpat, Keppra phenobarbital and phenytoin, mood stabilizers including Seroquel and Paxil Hypothyroidism On thyroid placement therapy TSH 2.17 Benign prostatic hypertrophy On Flomax Hyperlipidemia On statin therapy Discharge Planning Medically Stable for Discharge Date: 10/28/2024 Patient requires continued hospitalization due to: Monitoring for nocturnal hypoxemia [facility]iary Quality Measures DVT Prophylaxis: lovenox Pandey Catheter: absent Code Status full Primary Contact Information Subjective Patient examined at bedside today watching Yovanny Doo. He denies any abdominal pain nauseous or vomiting. Oxygen was turned off when I entered room. Saturations remain 95 to 96%. Patient denies any dyspnea. Objective BP 132/74 Pulse 78 Temp 98.1 degrees F (36.7 degrees C) (Oral) Resp 18 Ht 5' 8 Wt 97.5 kg (215 lb) SpO2 94% BMI 32.69 kg/m Physical Examination General Appearance: No acute distress HEENT: Head- normocephalic; Eyes- EOMI, sclera anicteric; Throat- mucous membranes moist Cardiovascular: regular rate and rhythm; normal S1, S2; no murmurs, rubs, clicks or gallops; peripheral edema absent Respiratory: lungs clear to auscultation; without wheezes, rales or rhonchi; on room air Abdomen: soft, non-tender, non-distended Neurological: oriented x 1; normal speech; no focal findings or movement disorder noted Musculoskeletal: no significant deformity or tenderness to palpation Skin: normal coloration Psych: normal mood and affect AUTHENTICATED BY TORSTEN VARMA, ON 10/27/2024 17:03:46 [facility] 10-26-2024 Note HMS HISTORY AND PHYS ICAL -- [facility] Patient Name: Pancho Mcpherson : 1960 MR #: [id number] Admit Date: 10/26/2024 Physicians: Mahamed Neri DO (Family); No ref. provider found (Referring) Pancho Mcpherson is a 64 y.o. male patient of Mahamed Neri DO with history of hypertension, hyperlipidemia, seizure disorder, developmental delay, hypothyroidism, prostate enlargement, sleep apnea presented to [facility] on 10/26/2024 with hypoxia, this patient was discharged from the hospital today October 26 after being managed for acute cholecystitis, completed antibiotics as inpatient, patient was sent to assisted living facility, upon arrival patient was hypoxic, he was brought back to the emergency room, upon my evaluation, patient doing well, he denies shortness of breath, he denies right upper quadrant pain, he denies cough Hypoxia As noted, discharged today to go to assisted living hypoxic on arrival so brought back by EMS Obtained COVID/influenza which is negative, also obtain chest x-ray, no acute finding, no airspace disease per my read, pending radiology read Per case management, his intermediate casey saw operator per note on Monday did not want him discharged until Monday as they do not have nurses available on the weekend. - not sure if that is playing a part Wean off oxygen as tolerated, currently satting 100% on 3 L of nasal cannula evaluate for home oxygen in the morning, consult case management Recent cholecystitis, completed antibiotics, monitor for pain Seizure disorder Mental retardation and developmental delay On antiepileptics including Vimpat, Keppra phenobarbital and phenytoin, mood stabilizers including Seroquel and Paxil Hypothyroidism On thyroid placement therapy TSH 2.17 Benign prostatic hypertrophy On Flomax Hyperlipidemia On statin therapy Residence prior to admission: intermediate Was patient transferred from outlying hospital or ED no Quality Measures DVT Prophylaxis: SCDs Pandey Catheter: absent Medication Reconciliation: Verified Admitted with these risk variables:Acute Respiratory Failure. Please see assessment and plan for further details. Estimated Date of Discharge less than 2 midnights Code Status Full Code; code status verified on 10/26/2024 with confirmed by patient medical records Chief Complaint hypoxia History of Present Illness Pancho Mcpherson is a 64 y.o. male patient of Mahamed Neri DO with history of hypertension, hyperlipidemia, seizure disorder, developmental delay, hypothyroidism, prostate enlargement, sleep apnea presented to [facility] on 10/26/2024 with hypoxia, this patient was discharged from the hospital today October 26 after being managed for acute cholecystitis, completed antibiotics as inpatient, patient was sent to assisted living facility, upon arrival patient was hypoxic, he was brought back to the emergency room, upon my evaluation, patient doing well, he denies shortness of breath, he denies right upper quadrant pain, he denies cough Past Medical History Past Medical History: Diagnosis Date Balance problem Depression Disease of thyroid gland Disorientation Fatigue Hearing loss Hyperlipidemia Lack of coordination Memory loss Seizures (HCC) Speech abnormality Past Surgical History Past Surgical History: Procedure Laterality Date CHOLECYSTECTOMY ROBOTIC XI N/A 10/24/2024 Procedure: ROBOTIC CHOLECYSTECTOMY WITH LYSIS OF ADHESION; Surgeon: Jakub Oglesby MD; Location: Main OR; Service: [employer]; Laterality: N/A; Family History Family History Problem Relation Age of Onset Alzheimer's disease Mother Social History Social History Tobacco Use Smoking Status Never Smokeless Tobacco Not on file Social History Substance and Sexual Activity Alcohol Use Never Social History Substance and Sexual Activity Drug Use Not on file Allergy Information I have reviewed the patient's allergies. Patient has no known allergies. Home Medications Home medications were reviewed. Review Of Systems All relevant systems have been reviewed and are negative except as noted in HPI or below Physical Examination BP 125/76 Pulse 63 Temp 98 degrees F (36.7 degrees C) Resp 18 SpO2 100% General Appearance: alert; well appearing; in no acute distress HEENT: Head- normocephalic; Eyes- EOMI, sclera anicteric; Throat- mucous membranes moist Cardiovascular: regular rate and rhythm; normal S1, S2; no murmurs, rubs, clicks or gallops; peripheral edema absent Respiratory: lungs clear to auscultation; without wheezes, rales or rhonchi; on nasal cannula Abdomen: soft, non-tender, non-distended Neurological: oriented x 2; normal speech; no focal findings or movement disorder noted Musculoskeletal: no significant deformity or tenderness to palpation Skin: normal coloration Psych: normal m (more content not included)... [facility] 10-26-2024 Note HMS DISCHARGE SUMMAR Y -- [facility] Pancho Mcpherson Admitted: 10/22/2024 Discharge Date: 10/27/24 PCP Handoff Recommended Outpatient Testing Follow-up with general surgery in 2 weeks Results Pending At Discharge None Clinical Summary Pancho Mcpherson is a 64 y.o. male patient of Mahamed Neri DO with history of hypertension with hyperlipidemia, seizure disorder with mental retardation developmental delay, hypothyroidism, history of prostate enlargement, sleep apnea. He presented to [facility] on 10/22/2024 with abdominal pain. The following describes his hospital course per problem: Acute cholecystitis Sepsis, POA, improved With leukocytosis and fever CAT scan of the abdomen showed Abnormal appearance of the gallbladder with wall thickening and a small amount of fluid near the fundus, no calcified gallstones. Ultrasound showed Mild gallbladder wall thickening and possible gallstones although gallbladder visualization is limited. General surgery following, status post cholecystectomy 10/24/2024 Empirically treated with Zosyn. No need for further antibiotics on discharge per surgery. Tolerating regular diet, denies abdominal pain, leukocytosis resolved. Discharging back to intermediate with follow-up with surgery in 2 weeks. Seizure disorder Mental retardation and developmental delay On antiepileptics including Vimpat, Keppra phenobarbital and phenytoin, mood stabilizers including Seroquel and Paxil Hypothyroidism On thyroid placement therapy TSH 2.17 Benign prostatic hypertrophy Continue Flomax Hyperlipidemia On statin therapy Discharge Medications Discharge Medications Modified Medications Details acetaminophen 325 MG tablet Commonly known as: TYLENOL What changed: Another medication with the same name was removed. Continue taking this medication, and follow the directions you see here. Take 2 (two) tablets (650 mg total) by mouth 2 (two) times a day . * polyethylene glycol 17 gram powder Commonly known as: MIRALAX What changed: You were already taking a medication with the same name, and this prescription was added. Make sure you understand how and when to take each. Take 17 (seventeen) g by mouth daily . Quantity: 30 packet * polyethylene glycol 17 gram powder Commonly known as: MIRALAX What changed: Another medication with the same name was added. Make sure you understand how and when to take each. Take 17 (seventeen) g by mouth daily as needed (constipation) . * polyethylene glycol 17 gram powder Commonly known as: MIRALAX What changed: Another medication with the same name was added. Make sure you understand how and when to take each. Take 17 (seventeen) g by mouth daily . * There are duplicate medications prescribed to the patient Medications To Continue Details atorvastatin 10 MG tablet Commonly known as: LIPITOR Take 1 (one) tablet (10 mg total) by mouth daily . calcium carbonate 200 mg calcium (500 mg) chewable tablet Commonly known as: TUMS Chew and Swallow 1 (one) tablet (500 mg total) 2 (two) times a day . cholecalciferol (vitamin D3) 1,000 unit tablet Take 2 (two) tablets (2,000 Units total) by mouth daily . ciclopirox 8 % solution Commonly known as: PENLAC Apply topically nightly Apply over toe nails and surrounding skin. Apply daily over previous coat. After seven (7) days, may remove with alcohol and continue cycle. . clonazePAM 1 MG tablet Commonly known as: KLONOPIN Take 1 (one) tablet (1 mg total) by mouth at bedtime . cyanocobalamin 1000 MCG tablet Commonly known as: B-12 Take 1 (one) tablet (1,000 mcg total) by mouth daily . famotidine 20 MG tablet Commonly known as: PEPCID Take 1 (one) tablet (20 mg total) by mouth 2 (two) times a day . folic acid 1 MG tablet Commonly known as: FOLVITE Take 1 (one) tablet (1 mg total) by mouth daily . HEMORRHOIDAL CREAM RECT Insert 1 Application into the rectum 2 (two) times a day To affected area am and pm plus as needed . hydrocortisone 1 % cream Apply topically 2 (two) times a day as needed (itchiness) B/L anterior notch of ear . lacosamide 200 mg Tab Commonly known as: VIMPAT Take 1 (one) tablet (200 mg total) by mouth every 12 (twelve) hours . levETIRAcetam 500 mg 24 hr tablet Commonly known as: KEPPRA XR Take 4 (four) tablets (2,000 mg total) by mouth 2 (two) times a day . * levothyroxine 100 MCG tablet Commonly known as: SYNTHROID, LEVOTHROID Take 1 (one) tablet (100 mcg total) by mouth once daily Along with 137 mcg, total 237 daily . * levothyroxine 137 MCG tablet Commonly known as: SYNTHROID, LEVOTHROID Take 1 (one) tablet (137 mcg total) by mouth once daily With 100 mcg, total 237 daily . methenamine 1 gram tablet Commonly known as: HIPREX Take 1 (one) tablet (1 g total) by mouth 2 (two) times a day . metoprolol succinate 25 MG 24 hr tablet Commonly (more content not included)... [facility] 10-26-2024 Note [facility] [place] PATIENT: Pancho Mcpherson DATE / TIME: 10/26/24 12:05 PM POS: Office AGE: 64 y.o. : 1960 RACE: [1] SEX: male PCP: Mahamed Neri DO REFERRAL: No ref. provider found TOS: SUBJECTIVE: Tolerating diet. Excited to go home. OBJECTIVE: BP 125/76 Pulse 78 Temp 98.2 degrees F (36.8 degrees C) (Axillary) Resp 18 Ht 5' 8 Wt 97.6 kg (215 lb 2.7 oz) SpO2 94% BMI 32.72 kg/m NAD A&O NLR Abd: soft, nt ,nd Incisions CDI ASSESSMENT: Pancho Mcpherson is a 64 y.o. male s/p cholecystectmy 10/24 PLAN: Agree with discharge home. May discontinue antibiotics. Follow-up in office in 2 weeks for postop check. AUTHENTICATED BY JAKUB OGLESBY, ON 10/26/2024 12:06:13 [facility] 10-26-2024 Note [place] [facility] DAILY PROGRESS NOTE SURGICAL PROBLEM Acute Cholecystitis ASSESSMENT & PLAN/ACTIVE MEDICAL PROBLEMS: Acute Cholecystitis S/p robotic laparoscopic cholecystectomy with Dr. Oglesby 10/24 WBC 7.65 (11.4), afebrile Tolerating regular diet. With flatus, no BM Lap sites well approximated with Dermabond without signs of infection. - No atb needed on DC - Would send home on stool softener -Ok for dispo, follow up in 2 weeks SURGERIES/PROCEDURES: Date Operation/Procedure Provider Name 10/24/2024 Robotic laparoscopic cholecystectomy with lysis of adhesion Dr. Oglesby INCIDENTAL FINDINGS: none. RESOLVED PROBLEMS: DISPOSITION PLAN - per primary Follow up within: two weeks CHIEF COMPLAINT/ HPI / PFSHx / EVENTS OVER LAST 24HRS: The patient is resting in bed comfortably. Incisions well approximated. Denies pain. Is tolerating diet REVIEW OF SYSTEMS: Other than the above items the remainder of the complete ROS is otherwise unchanged from admission. PHYSICAL EXAM: Temp: [97.4 degrees F (36.3 degrees C)-99.3 degrees F (37.4 degrees C)] 97.8 degrees F (36.6 degrees C) Heart Rate: [70-89] 74 Resp: [16-22] 18 BP: (94-139)/(54-78) 137/76 GENERAL: Appears age appropriate. No acute distress. NEUROLOGICAL: Alert and oriented at baseline. Follows commands with extremities x4, equal strength. No focal neurologic deficits noted. Head: Atraumatic, normocephalic. CARDIOVASCULAR: Regular rate and rhythm. No peripheral edema noted.. RESPIRATORY: Respiratory effort unlabored without use of accessory muscles. 2LNC ABDOMINAL: Rounded, soft, nontender, non distended, lap sites well approximated with glue. No guarding or peritoneal signs. MUSCULOSKELETAL: Extremities atraumatic without gross deformity x4. No clubbing, cyanosis or joint edema. SKIN: Skin warm and dry. Intake/Output Summary (Last 24 hours) at 10/26/2024 0806 Last data filed at 10/25/2024 1500 Gross per 24 hour Intake 120 ml Output -- Net 120 ml IMAGING briefly note any results pertinent to today's evaluation: None new LABS Lab Results Component Value Date WBC 7.65 10/26/2024 HGB 12.4 (L) 10/26/2024 HCT 38.9 (L) 10/26/2024 MCV 98.5 10/26/2024 EXTMCV 93.4 10/10/2024 PLT 166 10/26/2024 RBC 3.95 (L) 10/26/2024 Lab Results Component Value Date GLUCOSE 101 (H) 10/26/2024 CALCIUM 8.5 10/26/2024 NA 142 10/26/2024 K 3.8 10/26/2024 CL 104 10/26/2024 BUN 4 (L) 10/26/2024 CREATININE 0.57 (L) 10/26/2024 DAILY CHECKLIST: *Need for Restraints: no *Need for Urinary Catheter: no *Need for Central Access Devices: no *Stress Ulcer Prophylaxis: pepcid *VTE Prophylaxis (Body mass index is 32.72 kg/m ., Estimated Creatinine Clearance: 125 mL/min (A) (by C-G formula based on SCr of 0.57 mg/dL (L)).): lovenox *Home Medications Reconciled: per primary *Code Status: DNRCC-A AUTHENTICATED BY EMMIE GONGORA, ON 10/26/2024 08:28:41 [facility] 10-25-2024 Note [facility] [place] PROGRESS NOTE Assessment and Plan Pancho Mcpherson is a 64 y.o. male patient of Mahamed Neri DO with history of hypertension with hyperlipidemia, seizure disorder with mental retardation developmental delay, hypothyroidism, history of prostate enlargement and recurrent drug tract infection, sleep apnea is here due to abdominal pain and reported a fall yesterday noticed leukocytosis up to 26,000 with fever up to 101 tachycardia concern of sepsis with lactic acid of 2.3 with images concerning of acute cholecystitis, Acute cholecystitis Sepsis, POA, improved With leukocytosis and fever CAT scan of the abdomen showed Abnormal appearance of the gallbladder with wall thickening and a small amount of fluid near the fundus, no calcified gallstones. Ultrasound showed Mild gallbladder wall thickening and possible gallstones although gallbladder visualization is limited. General surgery following, status post cholecystectomy 10/24/2024 Continue Zosyn at this time Antiemetics and pain control. Advance to regular diet today, potential discharge to intermediate tomorrow Seizure disorder Mental retardation and developmental delay On antiepileptics including Vimpat, Keppra phenobarbital and phenytoin, mood stabilizers including Seroquel and Paxil Hypothyroidism On thyroid placement therapy TSH 2.17 Benign prostatic hypertrophy On Flomax and check urine culture Hyperlipidemia On statin therapy Resolved acute medical issues Discharge Planning Medically Stable for Discharge Date: 10/26/2024 Patient requires continued hospitalization due to: Dietary advancement, clinical improvement (low-grade fever overnight, leukocytosis resolving) Discharge Location: intermediate Quality Measures DVT Prophylaxis: heparin subcutaneous Pandey Catheter: absent Code Status DNRCCA per H and P Primary Contact Information Subjective Patient resting comfortably. Had 1 episode of emesis last evening. Otherwise no acute events overnight. Objective BP 107/60 Pulse 72 Temp 98.3 degrees F (36.8 degrees C) (Oral) Resp 18 Ht 5' 8 Wt 95.2 kg (209 lb 14.1 oz) SpO2 96% BMI 31.91 kg/m Physical Examination General Appearance: alert; acute on chronically ill appearing; in mild acute distress HEENT: Head- normocephalic; Eyes- EOMI, sclera anicteric; Throat- mucous membranes moist Cardiovascular: regular rate and rhythm; normal S1, S2; no murmurs, rubs, clicks or gallops; peripheral edema absent Respiratory: lungs clear to auscultation; without wheezes, rales or rhonchi; on nasal cannula Abdomen: soft, non-tender, non-distended Neurological: Oriented x 2 normal speech; no focal findings or movement disorder noted Musculoskeletal: no significant deformity or tenderness to palpation Skin: normal coloration Psych: normal mood and affect AUTHENTICATED BY TORSTEN VARMA, ON 10/25/2024 17:35:20 [facility] 10-25-2024 Note [facility] DAILY PROGRESS NOTE SURGICAL PROBLEM Acute Cholecystitis ASSESSMENT & PLAN/ACTIVE MEDICAL PROBLEMS: Acute Cholecystitis S/p robotic laparoscopic cholecystectomy with Dr. Oglesby 10/24 WBC 11.4 (18.1), Tmax 100.9 Tolerating CLD. Lap sites well approximated with Dermabond without signs of infection. - Advance diet as tolerated - Zosyn, MIVF until tolerating regular diet - Pain control, mobilize SURGERIES/PROCEDURES: Date Operation/Procedure Provider Name 10/24/2024 Robotic laparoscopic cholecystectomy with lysis of adhesion Dr. Oglesby INCIDENTAL FINDINGS: none. RESOLVED PROBLEMS: DISPOSITION PLAN - per primary Follow up within: two weeks CHIEF COMPLAINT/ HPI / PFSHx / EVENTS OVER LAST 24HRS: The patient is resting in bed comfortably. Incisions well approximated. REVIEW OF SYSTEMS: Other than the above items the remainder of the complete ROS is otherwise unchanged from admission. PHYSICAL EXAM: Temp: [97.4 degrees F (36.3 degrees C)-100.9 degrees F (38.3 degrees C)] 98.2 degrees F (36.8 degrees C) Heart Rate: [76-93] 85 Resp: [18-25] 18 BP: (131-174)/(70-99) 132/74 GENERAL: Appears age appropriate. No acute distress. NEUROLOGICAL: Drowsy. Follows commands with extremities x4, equal strength. No focal neurologic deficits noted. Head: Atraumatic, normocephalic. CARDIOVASCULAR: Regular rate and rhythm. No peripheral edema noted.. RESPIRATORY: Respiratory effort unlabored without use of accessory muscles. ABDOMINAL: Rounded, soft, nontender, non distended, lap sites well approximated with glue. No guarding or peritoneal signs. MUSCULOSKELETAL: Extremities atraumatic without gross deformity x4. No clubbing, cyanosis or joint edema. SKIN: Skin warm and dry. Intake/Output Summary (Last 24 hours) at 10/25/2024 0816 Last data filed at 10/25/2024 0205 Gross per 24 hour Intake 5526.61 ml Output 525 ml Net 5001.61 ml IMAGING briefly note any results pertinent to today's evaluation: HIDA scan reviewed LABS Lab Results Component Value Date WBC 11.41 (H) 10/25/2024 HGB 12.8 (L) 10/25/2024 HCT 40.2 (L) 10/25/2024 MCV 98.5 10/25/2024 EXTMCV 93.4 10/10/2024 PLT 160 10/25/2024 RBC 4.08 (L) 10/25/2024 Lab Results Component Value Date GLUCOSE 145 (H) 10/25/2024 CALCIUM 8.3 (L) 10/25/2024 NA 141 10/25/2024 K 3.6 10/25/2024 CL 103 10/25/2024 BUN 4 (L) 10/25/2024 CREATININE 0.63 (L) 10/25/2024 Lab Results Component Value Date ALT 21 10/24/2024 AST 19 10/24/2024 ALKPHOS 124 10/24/2024 BILITOT 0.3 10/24/2024 DAILY CHECKLIST: *Need for Restraints: no *Need for Urinary Catheter: no *Need for Central Access Devices: no *Stress Ulcer Prophylaxis: pepcid *VTE Prophylaxis (Body mass index is 31.91 kg/m ., Estimated Creatinine Clearance: 113.1 mL/min (A) (by C-G formula based on SCr of 0.63 mg/dL (L)).): lovenox okay from a surgery standpoint *Home Medications Reconciled: per primary *Code Status: DNRCC-A AUTHENTICATED BY YANA ZIEGLER, ON 10/25/2024 08:17:45 [facility] 10-24-2024 Note [facility] [place] PROGRESS NOTE Assessment and Plan Pancho Mcpherson is a 64 y.o. male patient of Mahamed Neri DO with history of hypertension with hyperlipidemia, seizure disorder with mental retardation developmental delay, hypothyroidism, history of prostate enlargement and recurrent drug tract infection, sleep apnea is here due to abdominal pain and reported a fall yesterday noticed leukocytosis up to 26,000 with fever up to 101 tachycardia concern of sepsis with lactic acid of 2.3 with images concerning of acute cholecystitis, Abdominal pain Acute cholecystitis Sepsis, POA With leukocytosis and fever CAT scan of the abdomen showed Abnormal appearance of the gallbladder with wall thickening and a small amount of fluid near the fundus, no calcified gallstones. Ultrasound showed Mild gallbladder wall thickening and possible gallstones although gallbladder visualization is limited. HIDA scan today. General surgery following, plan for lap cholecystectomy today. Continue antibiotics at this time. Antiemetics and pain control. CBC and CMP tomorrow. Seizure disorder Mental retardation and developmental delay On antiepileptics including Vimpat, Keppra phenobarbital and phenytoin, mood stabilizers including Seroquel and Paxil Hypothyroidism On thyroid placement therapy TSH 2.17 Benign prostatic hypertrophy On Flomax and check urine culture Hyperlipidemia On statin therapy Resolved acute medical issues Discharge Planning Medically Stable for Discharge Date: 10/25/2024 Patient requires continued hospitalization due to: pending final recommendations Discharge Location: intermediate Quality Measures DVT Prophylaxis: heparin subcutaneous Pandey Catheter: absent Code Status DNRCCA per H and P Primary Contact Information Subjective Patient examined postoperatively. Denies abdominal pain. Objective BP 120/85 Pulse 65 Temp 98.3 degrees F (36.8 degrees C) (Axillary) Resp (!) 24 Ht 5' 8 Wt 92.2 kg (203 lb 4.2 oz) SpO2 96% BMI 30.91 kg/m Physical Examination General Appearance: alert; acute on chronically ill appearing; in mild acute distress HEENT: Head- normocephalic; Eyes- EOMI, sclera anicteric; Throat- mucous membranes moist Cardiovascular: regular rate and rhythm; normal S1, S2; no murmurs, rubs, clicks or gallops; peripheral edema absent Respiratory: lungs clear to auscultation; without wheezes, rales or rhonchi; on nasal cannula Abdomen: soft, non-tender, non-distended Neurological: oriented x 3; normal speech; no focal findings or movement disorder noted Musculoskeletal: no significant deformity or tenderness to palpation Skin: normal coloration Psych: normal mood and affect AUTHENTICATED BY TORSTEN VARMA, ON 10/24/2024 17:24:13 [facility] 10-23-2024 Note [facility] DAILY PROGRESS NOTE SURGICAL PROBLEM Cholecystitis ASSESSMENT & PLAN/ACTIVE MEDICAL PROBLEMS: Cholecystitis HIDA positive for acute cholecystitis WBC 24.93 (26.61) -Plan for OR tomorrow morning, consent obtained -Continue Zosyn -N.p.o. at midnight, okay to have CLD until then -Pain control, therapies when able SURGERIES/PROCEDURES: Date Operation/Procedure Provider Name INCIDENTAL FINDINGS: none. RESOLVED PROBLEMS: DISPOSITION PLAN - per primary Follow up within: two weeks CHIEF COMPLAINT/ HPI / PFSHx / EVENTS OVER LAST 24HRS: The patient is resting in bed comfortably. His HIDA is positive for cholecystitis. This results were discussed with the patient. Consent is being obtained for surgery. REVIEW OF SYSTEMS: Other than the above items the remainder of the complete ROS is otherwise unchanged from admission. PHYSICAL EXAM: Temp: [97.6 degrees F (36.4 degrees C)-101 degrees F (38.3 degrees C)] 97.6 degrees F (36.4 degrees C) Heart Rate: [75-114] 78 Resp: [16-34] 16 BP: (101-159)/(62-140) 133/75 GENERAL: Appears age appropriate. No acute distress. NEUROLOGICAL: Alert and oriented X 3. Follows commands with extremities x4, equal strength. No focal neurologic deficits noted. GCS = 15 Head Eyes Ear Nose Throat: Head: Atraumatic, normocephalic. Neck: Supple, trachea midline. CARDIOVASCULAR: Regular rate and rhythm. No peripheral edema noted. 2+ pulses radial/DP/PT bilaterally. RESPIRATORY: Lungs, clear to auscultation bilaterally. Respiratory effort unlabored without use of accessory muscles. ABDOMINAL: Rounded, soft, nontender, nondistended, normal bowel sounds. No guarding or peritoneal signs. MUSCULOSKELETAL: Extremities atraumatic without gross deformity x4. No clubbing, cyanosis or joint edema. SKIN: Skin warm and dry. Intake/Output Summary (Last 24 hours) at 10/23/2024 1532 Last data filed at 10/23/2024 0308 Gross per 24 hour Intake 483.6 ml Output -- Net 483.6 ml IMAGING [briefly note any results pertinent to today's evaluation]: HIDA scan reviewed LABS Lab Results Component Value Date WBC 24.93 (H) 10/23/2024 HGB 12.9 (L) 10/23/2024 HCT 39.5 (L) 10/23/2024 MCV 95.4 10/23/2024 EXTMCV 93.4 10/10/2024 PLT 159 10/23/2024 RBC 4.14 (L) 10/23/2024 Lab Results Component Value Date GLUCOSE 121 (H) 10/23/2024 CALCIUM 8.1 (L) 10/23/2024 NA 140 10/23/2024 K 3.9 10/23/2024 CL 103 10/23/2024 BUN 9 10/23/2024 CREATININE 0.65 (L) 10/23/2024 Lab Results Component Value Date ALT 30 10/23/2024 AST 22 10/23/2024 ALKPHOS 121 10/23/2024 BILITOT 0.4 10/23/2024 DAILY CHECKLIST: *Need for Restraints: no *Need for Urinary Catheter: no *Need for Central Access Devices: no *Stress Ulcer Prophylaxis: pepcid *VTE Prophylaxis (Body mass index is 30.91 kg/m ., Estimated Creatinine Clearance: 109.6 mL/min (A) (by C-G formula based on SCr of 0.65 mg/dL (L)).): lovenox okay from a surgery standpoint *Home Medications Reconciled: per primary *Code Status: DNC-A AUTHENTICATED BY NABIL BABB, ON 10/23/2024 17:07:43 [facility] 10-23-2024 Note [facility] [place] PROGRESS NOTE Assessment and Plan Pancho Mcpherson is a 64 y.o. male patient of Mahamed Neri DO with history of hypertension with hyperlipidemia, seizure disorder with mental retardation developmental delay, hypothyroidism, history of prostate enlargement and recurrent drug tract infection, sleep apnea is here due to abdominal pain and reported a fall yesterday noticed leukocytosis up to 26,000 with fever up to 101 tachycardia concern of sepsis with lactic acid of 2.3 with images concerning of acute cholecystitis, Abdominal pain Concern for cholecystitis Sepsis, POA With leukocytosis and fever CAT scan of the abdomen showed Abnormal appearance of the gallbladder with wall thickening and a small amount of fluid near the fundus, no calcified gallstones. Ultrasound showed Mild gallbladder wall thickening and possible gallstones although gallbladder visualization is limited. HIDA scan today. General surgery following. Continue antibiotics at this time. Antiemetics and pain control. CBC and CMP tomorrow. Seizure disorder Mental retardation and developmental delay On antiepileptics including Vimpat, Keppra phenobarbital and phenytoin, mood stabilizers including Seroquel and Paxil Hypothyroidism On thyroid placement therapy TSH 2.17 Benign prostatic hypertrophy On Flomax and check urine culture Hyperlipidemia On statin therapy Resolved acute medical issues Discharge Planning Medically Stable for Discharge Date: 1-2 days Patient requires continued hospitalization due to: pending final GS recommendations Discharge Location: intermediate Quality Measures DVT Prophylaxis: heparin subcutaneous Pandey Catheter: absent Code Status DNRCCA per H and P Primary Contact Information Subjective Denies abdominal pain no nausea vomiting overnight. Objective BP 133/75 Pulse 78 Temp 97.6 degrees F (36.4 degrees C) (Oral) Resp 16 Ht 5' 8 Wt 92.2 kg (203 lb 4.2 oz) SpO2 99% BMI 30.91 kg/m Physical Examination General Appearance: alert; acute on chronically ill appearing; in mild acute distress HEENT: Head- normocephalic; Eyes- EOMI, sclera anicteric; Throat- mucous membranes moist Cardiovascular: regular rate and rhythm; normal S1, S2; no murmurs, rubs, clicks or gallops; peripheral edema absent Respiratory: lungs clear to auscultation; without wheezes, rales or rhonchi; on nasal cannula Abdomen: soft, non-tender, non-distended Neurological: oriented x 3; normal speech; no focal findings or movement disorder noted Musculoskeletal: no significant deformity or tenderness to palpation Skin: normal coloration Psych: normal mood and affect AUTHENTICATED BY HANNA TRIPP ON 10/23/2024 13:11:15 [facility] 10-22-2024 Note HMS HISTORY AND PHYS ICAL -- [facility] Patient Name: Pancho Mcpherson : 1960 MR #: [id number] Admit Date: 10/22/2024 Physicians: Mahamed Neri DO (Family); No ref. provider found (Referring) Pancho Mcpherson is a 64 y.o. male patient of Mahamed Neri, with history of hypertension with hyperlipidemia, seizure disorder with mental retardation developmental delay, hypothyroidism, history of prostate enlargement and recurrent drug tract infection, sleep apnea is here due to abdominal pain and reported a fall yesterday noticed leukocytosis up to 26,000 with fever up to 101 tachycardia concern of sepsis with lactic acid of 2.3 with images concerning of acute cholecystitis, Abdominal pain Concern for cholecystitis With leukocytosis and fever CAT scan of the abdomen showed Abnormal appearance of the gallbladder with wall thickening and a small amount of fluid near the fundus, no calcified gallstones. Ultrasound showed Mild gallbladder wall thickening and possible gallstones although gallbladder visualization is limited. General surgery following Will keep the patient n.p.o. after midnight Continue IV fluids and IV antibiotics IV Zosyn Painkillers as needed Concern of sepsis Present on admission: yes Etiology: Acute cholecystitis and possible bacteremia SIRS criteria: Temperature greater than 100.4 or less than 96.8, Heart rate greater than 90, WBC greater than 12,000, less than 4,000, or greater than 10% bands Evidence of end organ dysfunction: Lactic acid greater than 2.0 Initial lactic acid: 2.3 Repeat lactic acid: Pending Current antibiotic regimen: IV Zosyn Culture data: In process Vasopressors/steroids: none Initial sepsis checklist: Lactate ordered [x] Blood cultures obtained [x] Antibiotics initiated [x] IV fluids per sepsis protocol [x] Repeat volume status and tissue perfusion assessment performed [x] Seizure disorder Mental retardation and developmental delay On antiepileptics including Vimpat, Keppra phenobarbital and phenytoin, mood stabilizers including Seroquel and Paxil Hypothyroidism On thyroid placement therapy will check TSH level Benign prostatic hypertrophy On Flomax and check urine culture Hyperlipidemia On statin therapy Residence prior to admission: house or apartment Was patient transferred from outlying hospital or ED no Quality Measures DVT Prophylaxis: heparin subcutaneous Pandey Catheter: absent Medication Reconciliation: Verified Admitted with these risk variables: Sepsis. Please see assessment and plan for further details. Estimated Date of Discharge greater than 2 midnights Code Status DNR-CCA, no intubation; code status verified on 10/22/2024 Chief Complaint abdominal pain History of Present Illness Pancho Mcpherson is a 64 y.o. male patient of Mahamed Neri DO with history of hypertension with hyperlipidemia, seizure disorder with mental retardation developmental delay, hypothyroidism, history of prostate enlargement and recurrent drug tract infection, sleep apnea is here due to abdominal pain and reported a fall yesterday noticed leukocytosis up to 26,000 with fever up to 101 tachycardia concern of sepsis with lactic acid of 2.3 with images concerning of acute cholecystitis, relatively poor historian has had abdominal pain for the past 2 to 3 days dull achy in nature upper abdomen with associated nausea, Past Medical History Past Medical History: Diagnosis Date Balance problem Depression Disease of thyroid gland Disorientation Fatigue Hearing loss Hyperlipidemia Lack of coordination Memory loss Seizures (HCC) Speech abnormality Past Surgical History History reviewed. No pertinent surgical history. Family History Family History Problem Relation Age of Onset Alzheimer's disease Mother Social History Social History Tobacco Use Smoking Status Never Smokeless Tobacco Not on file Social History Substance and Sexual Activity Alcohol Use Never Social History Substance and Sexual Activity Drug Use Not on file Allergy Information I have reviewed the patient's allergies. Patient has no known allergies. Home Medications Home medications were reviewed. Review Of Systems All relevant systems have been reviewed and are negative except as noted in HPI or below Physical Examination BP (!) 156/140 Pulse 93 Temp (!) 101 degrees F (38.3 degrees C) Resp 18 SpO2 94% General Appearance: alert; acutely ill appearing; in no acute distress HEENT: Head- normocephalic; Eyes- EOMI, sclera anicteric; Throat- mucous membranes moist Cardiovascular: regular rate and rhythm; normal S1, S2; no murmurs, rubs, clicks or gallops; peripheral edema absent Respiratory: lungs clear to auscultation; without wheezes, rales or rhonchi; on room air Abdomen: soft, upper abdomen-tender, non-distended Neurological: oriente (more content not included)... [facility] 10-16-2024 Note Reviewed pt provided BP log - average is around 140/90 exactly. Low concern for adding back low-dose Toprol 25 mg daily since that seemed to help previously. Will start this and request additional HR/BP readings for the next few weeks. AUTHENTICATED BY MAHAMED NERI, ON 10/16/2024 13:44:46 [facility] 10-16-2024 History of Present illness Narrative Reviewed pt provided BP log - average is around 140/90 exactly. Low concern for adding back low-dose Toprol 25 mg daily since that seemed to help previously. Will start this and request additional HR/BP readings for the next few weeks. documented in this encounter [facility] 10-10-2024 Note Reviewed log, will c ontinue to keep patient off metoprolol for now, BP averaging in 130s/80s which is at goal, HR generally staying below 100s, and noted one spike to 150/100. Given this was only one episode, continue monitoring BP and HR for a few more weeks, likely can de-escalate frequent monitoring thereafter AUTHENTICATED BY MAHAMED NERI, ON 10/10/2024 10:40:52 [facility] 09-11-2024 Note (Please note that th is note was predominantly written using a combination of an AI-based voice recognition software and Dragon dictation. The voice recognition software is inherently subject to errors including those of syntax and sound-alike substitutions which may escape proofreading efforts. In such instances, original meaning may be extrapolated by contextual derivation. Please reach out for any clarification.) Assessment & Plan Assessment & Plan 1. Refractory epilepsy. The condition remains poorly controlled despite the administration of multiple antiepileptic medications. He is under the care of a neurologist, with plans for an upcoming admission to the epilepsy monitoring unit. The current antiepileptic regimen includes phenytoin 300 mg at night, phenobarbital 64.8 mg at night and 16.2 mg twice a day, Vimpat 200 mg twice a day, and Keppra 2000 mg twice a day. Neurology is managing this condition. 2. 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 This is likely secondary to developmental delay. He is not on any specific medications for this condition. The primary goal is to minimize polypharmacy. 3. Obstructive sleep apnea. He is currently on CPAP therapy and is under the care of a sleep medicine specialist. There may be a plan to transition to BiPAP in the near future. This condition is being managed by the sleep medicine team. 4. Multilevel degenerative disc disease and spinal stenosis. He is under the care of a neurosurgeon, with potential surgical intervention being discussed. 5. Benign prostatic hyperplasia with urinary obstruction and other lower urinary tract symptoms. He is under the care of a urologist for this condition. The current medication regimen includes methenamine 1 g twice a day and Flomax 0.4 mg daily. The management of this condition is deferred to the urologist. 6. Mood disorder due to medical condition. He is under the care of a psychiatrist at [facility]. Continued follow-up with psychiatry is recommended. The current medication regimen includes Seroquel 50 mg in the morning, 25 mg in the afternoon, and 250 mg at night, and Klonopin 1 mg daily. Psychiatry is managing this condition. 7. Hypertension. The goal blood pressure is less than 140/90, which is currently being achieved with readings of 106/68. He has been on metoprolol 12.5 mg twice a day for this condition. It is recommended to discontinue metoprolol. He should take it every other day for the next few days, and then stop. Daily blood pressure monitoring is advised for the next few weeks due to the change in medication. If his blood pressure remains below the goal of 140/90 after discontinuing metoprolol, frequent blood pressure checks can be stopped. 8. Hyperlipidemia. The goal LDL is less than 100. He is currently on atorvastatin 10 mg. The last lipid panel in February showed an LDL of 55, indicating that the condition is well controlled. No changes to the current medication regimen are necessary. 9. Acquired hypothyroidism. He is on levothyroxine 237 mcg daily. The last thyroid labs in February showed a slightly low thyroid function with a TSH of 4.53. No changes to the current medication regimen are necessary. Annual labs will be conducted in February. 10. Acid reflux. He is on Pepcid 20 mg twice a day for this condition. He still experiences occasional symptoms. The current medication regimen will be continued. Follow-up The patient will follow up in 3 months. Diagnoses and all orders for this visit: Refractory epilepsy (HCC) 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) JAIME on CPAP Multilevel degenerative disc disease Benign prostatic hyperplasia with urinary obstruction and other lower urinary tract symptoms Mood disorder due to medical condition Hypertension goal BP (blood pressure) < 140/90 Hyperlipidemia LDL goal <100 Acquired hypothyroidism Gastroesophageal reflux disease, unspecified whether esophagitis present Other orders - SCAN OTHER ORDERS For any new medications prescribed today, patient was educated about indications for the medication, how to take the medication, and potential side effects of the medication. My ongoing relationship with Pancho Mcpherson requires continued responsibility and cognitive effort of being the focal point for all services related to chronic condition(s). Return in about 3 months (around 12/10/2024) for Follow Up chronic conditions. Mahamed Neri DO, MS Family Medicine, Osteopathic Manipulative Medicine, and Hospital Medicine [facility] 09/11/2024 Subjective Chief Complaint Patient presents with [facility] Care HPI: After discussing the use of ambient listening and audio recording in generating medical documentation, the patient and sd verbally consented to use of this technology for today's visit. History of Present Illness The patient is a 64-year-old male with a complex medical hi (more content not included)... [facility] 09-11-2024 History of Present illness Narrative (Please note that this note was predominantly written using a combination of an AI-based voice recognition software and Dragon dictation. The voice recognition software is inherently subject to errors including those of syntax and sound-alike substitutions which may escape proofreading efforts. In such instances, original meaning may be extrapolated by contextual derivation. Please reach out for any clarification.) Assessment & Plan Assessment & Plan 1. Refractory epilepsy. The condition remains poorly controlled despite the administration of multiple antiepileptic medications. He is under the care of a neurologist, with plans for an upcoming admission to the epilepsy monitoring unit. The current antiepileptic regimen includes phenytoin 300 mg at night, phenobarbital 64.8 mg at night and 16.2 mg twice a day, Vimpat 200 mg twice a day, and Keppra 2000 mg twice a day. Neurology is managing this condition. 2. 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 This is likely secondary to developmental delay. He is not on any specific medications for this condition. The primary goal is to minimize polypharmacy. 3. Obstructive sleep apnea. He is currently on CPAP therapy and is under the care of a sleep medicine specialist. There may be a plan to transition to BiPAP in the near future. This condition is being managed by the sleep medicine team. 4. Multilevel degenerative disc disease and spinal stenosis. He is under the care of a neurosurgeon, with potential surgical intervention being discussed. 5. Benign prostatic hyperplasia with urinary obstruction and other lower urinary tract symptoms. He is under the care of a urologist for this condition. The current medication regimen includes methenamine 1 g twice a day and Flomax 0.4 mg daily. The management of this condition is deferred to the urologist. 6. Mood disorder due to medical condition. He is under the care of a psychiatrist at [facility]. Continued follow-up with psychiatry is recommended. The current medication regimen includes Seroquel 50 mg in the morning, 25 mg in the afternoon, and 250 mg at night, and Klonopin 1 mg daily. Psychiatry is managing this condition. 7. Hypertension. The goal blood pressure is less than 140/90, which is currently being achieved with readings of 106/68. He has been on metoprolol 12.5 mg twice a day for this condition. It is recommended to discontinue metoprolol. He should take it every other day for the next few days, and then stop. Daily blood pressure monitoring is advised for the next few weeks due to the change in medication. If his blood pressure remains below the goal of 140/90 after discontinuing metoprolol, frequent blood pressure checks can be stopped. 8. Hyperlipidemia. The goal LDL is less than 100. He is currently on atorvastatin 10 mg. The last lipid panel in February showed an LDL of 55, indicating that the condition is well controlled. No changes to the current medication regimen are necessary. 9. Acquired hypothyroidism. He is on levothyroxine 237 mcg daily. The last thyroid labs in February showed a slightly low thyroid function with a TSH of 4.53. No changes to the current medication regimen are necessary. Annual labs will be conducted in February. 10. Acid reflux. He is on Pepcid 20 mg twice a day for this condition. He still experiences occasional symptoms. The current medication regimen will be continued. Follow-up The patient will follow up in 3 months. Diagnoses and all orders for this visit: Refractory epilepsy (HCC) 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) JAIME on CPAP Multilevel degenerative disc disease Benign prostatic hyperplasia with urinary obstruction and other lower urinary tract symptoms Mood disorder due to medical condition Hypertension goal BP (blood pressure) < 140/90 Hyperlipidemia LDL goal <100 Acquired hypothyroidism Gastroesophageal reflux disease, unspecified whether esophagitis present Other orders - SCAN OTHER ORDERS For any new medications prescribed today, patient was educated about indications for the medication, how to take the medication, and potential side effects of the medication. My ongoing relationship with Pancho Mcpherson requires continued responsibility and cognitive effort of being the focal point for all services related to chronic condition(s). Return in about 3 months (around 12/10/2024) for Follow Up chronic conditions. Mahamed Neri DO, MS Family Medicine, Osteopathic Manipulative Medicine, and Hospital Medicine [facility] 09/11/2024 Subjective Chief Complaint Patient presents with [facility] Care HPI: After discussing the use of ambient listening and audio recording in generating medical documentation, the patient and sd verbally consented to use of this technology for today's visit. History of Present Illness The patient is a 64-year-old male with a complex medical history including refractory epilepsy, dementia, obstructive sleep apnea, multilevel degenerative disc disease and spinal stenosis, benign prostatic hyperplasia, mood disorder, hypertension, hyperlipidemia, acquired hypothyroidism, and acid reflux. He resides in a intermediate and is accompanied by caregivers. Seizure Disorder - History of seizure disorder, partially uncontrolled despite a VNS device - Continues to have breakthrough seizures - Under neurologist's care at [facility] with an appointment in 11/2024 - Current antiepileptic regimen: Keppra 2000 mg BID, Vimpat 200 mg BID, phenobarbital 16.2 mg BID, and Klonopin 1 mg daily Cervical Spine Stenosis - Past surgical history includes cervical spine stenosis - Results in lower body weakness, especially on the right side - Upper body strength is intact - Annual follow-ups with his surgeon continue - Recent imaging showed further spinal narrowing - Second surgery recommended but declined by his sister - Undergoing physical therapy with minimal progress - MRI scheduled in one week Hypertension and Hyperlipidemia - Managed with metoprolol 12.5 mg BID and atorvastatin 10 mg daily Abdominal Discomfort - Reports occasional abdominal discomfort - Managed with Pepcid 20 mg BID Obstructive Sleep Apnea - Uses a CPAP machine - Requires a special mask due to a previous nasal fracture - BiPAP trial being considered Intellectual Disability and Dementia - Baseline intellectual disability and dementia - Managed by his primary care physician Prostate and Urinary Concerns - Followed by a urologist Psychiatric History - Under Dr. Buckley's care at [facility] - Medications include Seroquel 50 mg BID and 25 mg at 1 PM, Paxil 50 mg daily Hypothyroidism - Managed by his primary care physician with levothyroxine 237 mcg daily MEDICATIONS - Keppra - Vimpat - Phenobarbital - Klonopin - Paxil - Levothyroxine - Tylenol - Lopressor - Atorvastatin - Tums - Pepcid - Senna - MiraLAX - Methenamine - Flomax - Seroquel *Review of systems was negative unless otherwise stated in HPI. The following portions of the patient's history were reviewed and updated as appropriate: allergies, current medications, past family history, past medical history, past social history, past surgical history and problem list. Patient's Medications New Prescriptions No medications on file Previous Medications ACETAMINOPHEN (TYLENOL) 325 MG/10.15 ML SOLN Take 20.3 mL (650 mg total) by mouth every 4 (four) hours . ATORVASTATIN (LIPITOR) 10 MG TABLET Take 1 (one) tablet (10 mg total) by mouth daily . CALCIUM CARBONATE (TUMS) 200 MG CALCIUM (500 MG) CHEWABLE TABLET Chew and Swallow 1 (one) tablet (500 mg total) 2 (two) times a day . CLONAZEPAM (KLONOPIN) 1 MG TABLET Take 1 (one) tablet (1 mg total) by mouth daily . FAMOTIDINE (PEPCID) 20 MG TABLET Take 1 (one) tablet (20 mg total) by mouth 2 (two) times a day . FOLIC ACID (FOLVITE) 1 MG TABLET Take 1 (one) tablet (1 mg total) by mouth daily . LACOSAMIDE (VIMPAT) 200 MG TAB Take 1 (one) tablet (200 mg total) by mouth 2 (two) times a day (Days supply per fill: . LEVETIRACETAM (KEPPRA) 1000 MG TABLET Take 2 (two) tablets (2,000 mg total) by mouth 2 (two) times a day . LEVOTHYROXINE (SYNTHROID, LEVOTHROID) 100 MCG TABLET Take 1 (one) tablet (100 mcg total) by mouth once daily Along with 137 mcg, total 237 daily . LEVOTHYROXINE (SYNTHROID, LEVOTHROID) 137 MCG TABLET Take 1 (one) tablet (137 mcg total) by mouth once daily With 100 mcg, total 237 daily . METHENAMINE (HIPREX) 1 GRAM TABLET Take 1 (one) tablet (1 g total) by mouth 2 (two) times a day . PAROXETINE (PAXIL) 10 MG TABLET Take 1 (one) tablet (10 mg total) by mouth daily Plus 40 mg for total of 50 daily . PAROXETINE (PAXIL) 40 MG TABLET Take 1 (one) tablet (40 mg total) by mouth daily Plus 10 mg for total of 50 daily . PHENOBARBITAL 16.2 MG TABLET Take 1 (one) tablet (16.2 mg total) by mouth 2 (two) times a day Reasons: seizures. PHENOBARBITAL 32.4 MG TABLET Take 2 (two) tablets (64.8 mg total) by mouth nightly Reasons: seizures. PHENYTOIN (DILANTIN) 100 MG ER CAPSULE Take 3 (three) capsules (300 mg total) by mouth nightly . POLYETHYLENE GLYCOL (MIRALAX) 17 GRAM POWDER Take 17 (seventeen) g by mouth daily . QUETIAPINE (SEROQUEL) 200 MG TABLET Take 1 (one) tablet (200 mg total) by mouth nightly Plus 50 mg for total 250 nightly . QUETIAPINE (SEROQUEL) 25 MG TABLET Take 1 (one) tablet (25 mg total) by mouth daily At 1 pm . QUETIAPINE (SEROQUEL) 50 MG TABLET Take 1 (one) tablet (50 mg total) by mouth 2 (two) times a day 50 mg in AM, Evening dose with 200 mg for total of 250 nightly . SENNA (SENOKOT) 8.6 MG TABLET Take 1 (one) tablet (8.6 mg total) by mouth daily . TAMSULOSIN (FLOMAX) 0.4 MG CAPSULE Take 1 (one) capsule (0.4 mg total) by mouth daily . Modified Medications No medications on file Discontinued Medications AMLODIPINE (NORVASC) 10 MG TABLET Take 1 (one) tablet (10 mg total) by mouth daily . CETIRIZINE (ZYRTEC) 10 MG TABLET Take 1 (one) tablet (10 mg total) by mouth daily as needed . CHOLECALCIFEROL, VITAMIN D3, 1,000 UNIT TABLET Take 1 (one) tablet (1,000 Units total) by mouth daily . CYANOCOBALAMIN (VITAMIN B-12) 1000 MCG TABLET Take 1 (one) tablet (1,000 mcg total) by mouth daily . DIAZEPAM (VALTOCO) 20 MG/2 SPRAY (10MG/0.1ML X2) SPRY Instill into each nostril . DOCUSATE SODIUM (COLACE) 100 MG CAPSULE Take 1 (one) capsule (100 mg total) by mouth daily . LEVOTHYROXINE (SYNTHROID, LEVOTHROID) 200 MCG TABLET Take 1 (one) tablet (200 mcg total) by mouth daily . LEVOTHYROXINE (SYNTHROID, LEVOTHROID) 50 MCG TABLET Take 1 (one) tablet (50 mcg total) by mouth every other day . MEMANTINE (NAMENDA) 10 MG TABLET Take 1 (one) tablet (10 mg total) by mouth 2 (two) times a day . METOPROLOL TARTRATE (LOPRESSOR) 12.5 MG PARTIAL TABLET Take 1 (one) split tablet (12.5 mg total) by mouth 2 (two) times a day . METOPROLOL TARTRATE (LOPRESSOR) 50 MG TABLET Take 1 (one) tablet (50 mg total) by mouth 2 (two) times a day . MIRABEGRON (MYRBETRIQ) 25 MG TB24 Take 1 (one) tablet (25 mg total) by mouth daily . PHENOBARBITAL (LUMINAL) 30 MG TABLET Take 1.5 (one and a half) tablets (45 mg total) by mouth AM for * days . PHENYTOIN (DILANTIN) 50 MG TABLET Chew and Swallow 1 (one) tablet (50 mg total) every evening . QUETIAPINE (SEROQUEL) 300 MG TABLET Take 1 (one) tablet (300 mg total) by mouth daily . 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) 07/09/2014 Objective Vitals: 09/11/24 0903 BP: 106/68 BP Location: Right arm Patient Position: Sitting BP Cuff Size: X-large Adult Pulse: 72 Resp: 17 Temp: 98.1 F (36.7 C) TempSrc: Temporal SpO2: 93% Weight: 77.1 kg (170 lb) Height: 5' 8 Physical Exam Physical Exam - Not in acute distress but appears slightly fatigued - Responses are slow, communicates verbally mostly using yes or no - Baseline right upper extremity weakness and right-sided lean - Mild right-sided facial droop at baseline - Lungs are clear with good air movement, mild crackles at bases likely due to wheelchair use and hunched position - Heart has regular rate and rhythm, no murmurs - Trace swelling in lower extremities, not concerning - Possible mild fine tremor in both hands Vital Signs - Blood pressure: 106/68 Osteopathic Medical Exam Results Laboratory Studies LDL was at 55 in February. TSH was 4.53 in February. PHQ9: RUMA-7 OARRS/NARxCHECK Report Received and Assessed: No data found Date controlled substance agreement signed: No data found Date of last drug screen: No data found Functional Assessment: No data found (Please note that this note was predominantly written using a combination of an AI-based voice recognition software and Dragon dictation. The voice recognition software is inherently subject to errors including those of syntax and sound-alike substitutions which may escape proofreading efforts. In such instances, original meaning may be extrapolated by contextual derivation. Please reach out for any clarification.) documented in this encounter [facility] 08-26-2024 History of Present illness Narrative NEUROSURGERY POST OPERATIVE PROGRESS NOTE Name: Pancho Mcpherson : 1960 Age: 64 y.o. Attending: Dr. Youngblood Pancho Mcpherson is s/p C3-5 ACDF on 05/26/21. HPI: Pancho Mcpherson is a 64 y.o. male with a PMH significant for Developmental delay, Essential hypertension, benign, Hyperlipidemia, Hypothyroidism, Intractable epilepsy, Mental retardation, Prostate enlargement, Recurrent UTI, Seizures, and Sleep apnea. Chart reviewed and incorporated. Patient had been experiencing worsening weakness and was found to have severe multilevel cervical stenosis with cord compression. Patient underwent above procedure. He presents today for routine follow-up. Pateint reports he has been doing OK. Patient presents with 2 caregivers today. History is obtained mostly through caregivers, patient endorsing yes and no and some answers at times. Overall, patient's caregivers endorse that patient has not seen any significant changes with UE strength but continued weakness in LE and inability to ambulate. His caregivers endorse increased weakness in lower extremities. Reports they have increased difficulty with transfers. Endorses increased weakness in RLE. Patient denies neck pain but endorses some numbness/tingling intermittently behind neck. Otherwise, denies other new n/t. Denies any recent as this was previously not helpful. Home Medications: Please see chart review Past Medical History: Past Medical History: Diagnosis Date Developmental delay Essential hypertension, benign Hyperlipidemia Hypothyroidism Intractable epilepsy Mental retardation Prostate enlargement Recurrent UTI S/P placement of VNS (vagus nerve stimulation) device Seizure Sleep apnea Spinal stenosis Review of Systems: ROS negative except for those listed in HPI. History obtained from patient and chart. Physical Examination: Vital Signs: Vitals: 08/26/24 1147 BP: 120/72 Pulse: 70 Temp: 98.5 degrees F (36.9 degrees C) TempSrc: Infrared SpO2: 95% Weight: 84.1 kg (185 lb 8 oz) Height: 1.727 m (5' 8) Body mass index is 28.21 kg/m . Constitutional: awake, alert, no acute distress, appears as stated age Head: normocephalic Eyes: conjunctiva normal, gaze conjugate Neck: Supple, symmetric, trachea midline Respiratory: respirations unlabored, symmetric chest wall rise and fall, normal respiratory effort Skin: intact, warm, dry MSK: moving all extremities, no swelling Neuro Exam: Awake, A&O x 3 CNII-XII grossly intact, speech clear and appropriate Sensation in tact in UE and LE to light touch Could not adequately assess marques's today Strength: Deltoid Biceps Tricep Wrist Extensor Wrist Flexion Hand Airplane Pilot Chief Hand Instrinsics R 5/5 5/5 5/5 5/5 Unable to assess 5/5 3-4/5 L 5/5 5/5 5/5 5/5 Unable to assess 5/5 3-4/5 Hip Flexion Right 2-3/5 Left 3-4/5 Knee Flex Knee Ext Ankle DF Ankle PF Right 3/5 3/5 3-4/5 2-3/5 Left 4/5 4/5 4/5 4/5 Gait not assessed, patient in wheelchair today, unable to ambulate Laboratory and Additional Data Reviewed: XR Spine Cervical 08/26/24: IMPRESSION: Intact C3-C5 ACDF hardware without instability. Multilevel degenerative disc disease. Assessment and Plan: ICD-10-CM 1. S/P cervical spinal fusion Z98.1 - Overall, no significant reported changes in UE symptoms since last appointment; however caregivers endorsing increased LE weakness and difficulty bearing weight in legs - Dr. Youngblood discussed surgical options before, please refer to 03/08/22 note - He does have some ongoing stenosis at C4-5. We discussed surgical and nonsurgical options. Surgery for this would be a posterior decompression as he did not get complete relief of stenosis from his anterior approach. We discussed posterior cervical procedures more difficult to heals from and have a higher complication rate and significantly more pain. The family is not sure that more surgery would be a great idea for him at this time. We discussed that given his relatively good function of his hands and arms, not sure that this is the only reason that his legs are having weakness. He has seen some improvement with physical therapy recently and I encouraged aggressively continued physical therapy. The patient will follow up with repeat x-rays. All questions were answered. Patient's caregiver reports that patient's family (guardian sister Sherly) still does not wish to proceed with any other surgical intervention at this time - Followup xrays illustrate stable intact hardware, reviewed imaging today with patient and caregivers - Will update Dr. Youngblood on patient condition and follow-up with family/caregivers after discussion, consider updated MRI imaging - Advised to call the office should any concerns arise or questions to be seen sooner or if family changes mind about additional surgery - Follow-up based on discussion with Dr. Rylie Esquivel PA-C Physician Orthodontist Small Business Owner, Department of Neurosurgery [facility] Name and verified by this MA. documented in this encounter [facility] 08-02-2024 Note HPI Chief Complaint Patient presents with Nail Care Patient is a pleasant 63-year-old male who comes in today with his caregivers for thick nails and to get his nails cut. Past Medical History: Diagnosis Date Balance problem Depression Disease of thyroid gland Disorientation Fatigue Hearing loss Hyperlipidemia Lack of coordination Memory loss Seizures (HCC) Speech abnormality History reviewed. No pertinent surgical history. Social History Socioeconomic History Marital status: Single Tobacco Use Smoking status: Never Vaping Use Vaping status: Never Used Substance and Sexual Activity Alcohol use: Never Review of Systems Physical Exam Patient is AOx3. Linear and appropriate humor and thought process. Vascular: DP PT pulses are poorly palpable. CFT is delayed with moderate pitting edema. Skin is warm to cool proximal to distal and shiny in nature. Neuro: Blunted Babinski's is blunted. Musculoskeletal: Muscle strength is 2 out of 5. Ankle subtalar is full and pain-free. Nails left 1-3 for 5 and right foot 1-3 for 5 are thickened dystrophic and mycotic. Impression/Plan Problem List Items Addressed This Visit None Visit Diagnoses Onychomycosis - Primary Peripheral vascular disease, unspecified (HCC) Patient is a pleasant 63-year-old 63-year-old male with peripheral arterial disease, venous insufficiency, likely onychomycosis to 10 nails. -For the mycotic portion, does require debridement in light of his arterial disease. This is to reduce his limb loss risk score. PVRs reviewed and are triphasic therefore no vascular intervention warranted at this time Sharply debrided and debulk in height and length 10 onychomycotic nails hide at length with a sharp pair of nail nippers consistent with a q8 modifier. Okay to discontinue [place] medical complexity decision making. Follow-up in 3 months for nail care. AUTHENTICATED BY DANNY TORRES JR., ON 08/02/2024 10:35:29 [facility] 08-02-2024 History of Present illness Narrative HPI Chief Complaint Patient presents with Nail Care Patient is a pleasant 63-year-old male who comes in today with his caregivers for thick nails and to get his nails cut. Past Medical History: Diagnosis Date Balance problem Depression Disease of thyroid gland Disorientation Fatigue Hearing loss Hyperlipidemia Lack of coordination Memory loss Seizures ([facility]) Speech abnormality History reviewed. No pertinent surgical history. Social History Socioeconomic History Marital status: Single Tobacco Use Smoking status: Never Vaping Use Vaping status: Never Used Substance and Sexual Activity Alcohol use: Never Review of Systems Physical Exam Patient is AOx3. Linear and appropriate humor and thought process. Vascular: DP PT pulses are poorly palpable. CFT is delayed with moderate pitting edema. Skin is warm to cool proximal to distal and shiny in nature. Neuro: Blunted Babinski's is blunted. Musculoskeletal: Muscle strength is 2 out of 5. Ankle subtalar is full and pain-free. Nails left 1-3 for 5 and right foot 1-3 for 5 are thickened dystrophic and mycotic. Impression/Plan Problem List Items Addressed This Visit None Visit Diagnoses Onychomycosis - Primary Peripheral vascular disease, unspecified (HCC) Patient is a pleasant 63-year-old 63-year-old male with peripheral arterial disease, venous insufficiency, likely onychomycosis to 10 nails. -For the mycotic portion, does require debridement in light of his arterial disease. This is to reduce his limb loss risk score. PVRs reviewed and are triphasic therefore no vascular intervention warranted at this time Sharply debrided and debulk in height and length 10 onychomycotic nails hide at length with a sharp pair of nail nippers consistent with a q8 modifier. Okay to discontinue [place] medical complexity decision making. Follow-up in 3 months for nail care. documented in this encounter [facility] 07-18-2024 Telephone encounter Note Images from the original note were not included. Medication Access Team coordinated the following [facility]: MS/Neurology Prior Authorization Per the patient's insurance provider, [employer], the prior authorization for LEVETIRACETAM ER 500MG (on-label) was approved. Authorization number: N/A Authorization start date: 07/18/24 Authorization end date: 08/13/25 Non-Specialty Prescriptions: 1, 20-25 min Lupe Kapoor [facility] 07-18-2024 Miscellaneous Notes Images from the original note were not included. Medication Access Team coordinated the following [facility]: MS/Neurology Prior Authorization Per the patient's insurance provider, [employer], the prior authorization for LEVETIRACETAM ER 500MG (on-label) was approved. Authorization number: [id number]/A Authorization start date: 07/18/24 Authorization end date: 08/13/25 Non-Specialty Prescriptions: 1, 20-25 min Lupe Kapoor *Documentation only- I did not speak with the patient. Received fax from [employer] stating PA is needed for Levetiracetam ER 500 mg. M Foley: [id number] documented in this encounter [facility] 07-18-2024 Telephone encounter Note *Documentation only- I did not speak with the patient. Received fax from [employer] stating PA is needed for Levetiracetam ER 500 mg. [facility] Foley: [id number] [facility] 07-10-2024 Instructions Lemuel Sommer II, OD - 07/10/2024 3:04 PM EST Assessment and Plan H25.813 Combined form of senile cataract of both eyes (primary encounter diagnosis) Comment: Progression both eyes. Continue yearly observation. 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 Monitor. H52.03 Hyperopia, bilateral H52.4 Presbyopia Comment: Glasses power stable. I have confirmed and edited as necessary the relevant HPI, ophthalmic history, ROS, and the neuro exam findings as obtained by others. I have seen and examined Pancho Mcpherson. I have discussed the case and the management of this patient's care with the Resident/Fellow, if applicable. I also have reviewed and agree with the assessment and plan as stated above and agree with all of its relevant components. documented in this encounter [facility] 07-10-2024 Note HNO ID: [id number] Author: LEMUEL SOMMER II, OD Service: ? Author Type: WIRE PHOTO OPERATOR NEWS Type: Progress Notes Filed: 07/10/2024 15:04 Note Text: Assessment and Plan H25.813 Combined form of senile cataract of both eyes (primary encounter diagnosis) Comment: Progression both eyes. Continue yearly observation. 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 Monitor. H52.03 Hyperopia, bilateral H52.4 Presbyopia Comment: Glasses power stable. I have confirmed and edited as necessary the relevant HPI, ophthalmic history, ROS, and the neuro exam findings as obtained by others. I have seen and examined Pancho Mcpherson. I have discussed the case and the management of this patient's care with the Resident/Fellow, if applicable. I also have reviewed and agree with the assessment and plan as stated above and agree with all of its relevant components. [facility] 07-10-2024 History of Present illness Narrative Assessment and Plan H25.813 Combined form of senile cataract of both eyes (primary encounter diagnosis) Comment: Progression both eyes. Continue yearly observation. 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 Monitor. H52.03 Hyperopia, bilateral H52.4 Presbyopia Comment: Glasses power stable. I have confirmed and edited as necessary the relevant HPI, ophthalmic history, ROS, and the neuro exam findings as obtained by others. I have seen and examined Pancho Mcpherson. I have discussed the case and the management of this patient's care with the Resident/Fellow, if applicable. I also have reviewed and agree with the assessment and plan as stated above and agree with all of its relevant components. documented in this encounter [facility] 06-27-2024 History of Present illness Narrative Images from the original note were not included. [facility] Pancho Mcpherson was seen in the [facility] at [facility] on 06/27/2024. He is here today for a follow-up accompanied by his caregiver . He was last seen on 04/05/[address] Carrie García MD and with me on 05/30/24 in clinic. History of Present Illness INTERVAL HISTORY: Pancho is a 64 y.o. male who has a past medical history of Developmental delay, Essential hypertension, benign, Hyperlipidemia, Hypothyroidism, Intractable epilepsy, Mental retardation, Prostate enlargement, Recurrent UTI, 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who has experienced seizures since his last office visit. His last seizure occurred 06/24/24 requiring nayzilam and was unprovoked. His primary caregiver Viji reports that recently his seizures appear to be more aggressive with the semiology appearing slightly different (Right arm may stiffen but also appear to have arm flailing while having loud vocalizations and unresponsiveness). He will have very loud breathing after with grunting which makes it difficult tell when seizure offset occurs. Most of the seizures typically occur in the evening (shortly after falling asleep) but recently he had one in the morning (still sleeping) and one in the afternoon. Of note, he has known JAIME and has difficulty keeping his CPAP on at night. It is difficult to know if his quality of sleep has been affected by his VNS. Pertinent Seizure History Per Dr García 04/05/23: His seizures after having an event of high fever around age of 6 months. Thereafter his seizures have always remain difficult to control with anti seizure drug therapy. As caregiver, his seizures are characterized as loud vocalization followed by limb stiffening and unresponsiveness lasting for a minute followed by post ictal period of confusion and sleepiness. Denies any well defined prodrome or aura (visual, auditory or olfactory hallucinations, taste sensation, ning vu etc..) Seizure occurrence time: Denies any diurnal or nocturnal (either during sleep or upon awakening) pattern. Triggers: Denies any known triggers like stress, sleep deprivation, menses, flashing lights etc.. Frequency: 2-3 per month Longest duration of seizure freedom: Unknown History of status epilepticus : No documented history of SE or history for cluster of seizures. Seizure risk factors: Developmental delay: As per sister, Born on term thorough normal vaginal delivery. Achieved developmental milestones (language and motor milestones) on time but then started to regress cognitively and also required physical therapy . Denies any educational difficulties in school. History of febrile seizures: No. Brain infection (Meningitis or encephalitis) : No. Stroke : No. Head injury complicated with LOC : No. Alcohol withdrawal seizures : No. Use of cocaine or other recreational drugs: No. Family history of epilepsy: No. Anti-seizure drug (ASD) history: Current ASD: Pheno-Paola 32.4 mg -32.4 mg -64.8 mg , Dilantin 300 mg at bedtime , LEV 2000 mg BID , Lacosamide 200 mg BID Klonopin 1 mg at bedtime Past ASD : Rescue ASD : PERTINENT LABS, NEURODIAGNOSTIC STUDIES, NEUROIMAGING AND NEUROPSYCHOLOGICAL TESTING Prior evaluation: MRI brain : 2021 reported negative for any intracranial pathologies except for WM changes EEG : none in our system Nuclear imaging : PAST MEDICAL, FAMILY, SOCIAL HISTORY, ALLERGIES AND MEDICATIONS Past Medical History He has a past medical history of Developmental delay, Essential hypertension, benign, Hyperlipidemia, Hypothyroidism, Intractable epilepsy, Mental retardation, Prostate enlargement, Recurrent UTI, 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 He has no past medical history of Pacemaker. Past Family History family history includes Alcoholism in his brother and father; Lipid Disorder in his mother; Schizophrenia in his father. Past Social History He reports that he has never smoked. He has never used smokeless tobacco. He reports that he does not drink alcohol and does not use drugs. Past Surgical History has a past surgical history that includes reduction open orbital floor fx with implant or bone graft (Right, 06/05/2014); laparotomy exploratory (2019); leg surgery; eye surgery (Right); fusion anterior interbody cervical (N/A, 05/26/2021); graft spine surgery only allograft anterior add-on px (N/A, 05/26/2021); insertion spinal instrumentation anterior add-on px (ip only) (N/A, 05/26/2021); fusion anterior interbody each addl interspace add-on px (N/A, 05/26/2021); monitoring neurophysiology intraoperative add-on px (N/A, 05/26/2021); microsurgical techniques w/ operating microscope add-on px (N/A, 05/26/2021); discectomy anterior cervical (N/A, 05/26/2021); removal spinal instrumentation anterior (N/A, 05/26/2021); fusion anterior interbody cervical each addl interspacex (N/A, 05/26/2021); insertion neurostimulator electrode & generator cranial nerve (eg vagus) open (N/A, 08/30/2023); and guidance fluoroscopic needle placement add-on px (N/A, 08/30/2023). Allergies He has No Known Allergies. Medications Outpatient Medications Prior to Visit Medication Sig Dispense Refill Acetaminophen 325 MG tablet Take 2 tablets by mouth 2 times daily. atorvastatin 10 MG tablet Take 1 tablet by mouth daily every morning. calcium carbonate (Nils-Gest Antacid) 500 MG Chew Tab tablet Chew 1 tablet 2 times daily. Cholecalciferol (Vitamin D-3) 25 MCG (1000 UT) capsule Take 2 capsules by mouth daily every morning. clonazePAM 1 MG tablet GIVE 1 TABLET BY MOUTH DAILY AT BEDTIME 30 tablet 5 cyanocobalamin 500 MCG tablet Take 2 tablets by mouth daily. (Patient taking differently: Take 2 tablets by mouth daily every morning.) diazePAM, 20 MG Dose, (Valtoco 20 MG Dose) 2 x 10 MG/0.1ML Liquid Therapy Pack Give 10 mg in ONE nostril as needed for convulsive seizure lasting 5 minutes or longer. MAX 2 DOSES IN 7 DAYS. 4 Each 1 faMOTIdine 20 MG tablet Take 1 tablet by mouth 2 times daily. Before meals folic acid 1 MG tablet Take 1 tablet by mouth daily every morning. Lacosamide (Vimpat) 200 MG tablet Take 1 tablet by mouth every 12 hours. 60 tablet 5 levETIRAcetam 500 MG tablet Take 4 tablets by mouth 2 times daily. 240 tablet 5 Levothyroxine 100 MCG tablet Take 1 tablet by mouth every morning before breakfast. Takes with 137mcg for total dose of 227mcg QAM levothyroxine 137 MCG tablet Take 1 tablet by mouth daily every morning. Takes with 100mcg tab for total dose of 227mcg QAM Methenamine Hippurate 1 g tablet Take 1 tablet by mouth 2 times daily. metoprolol 25 MG tab regular release Take 0.5 tablets by mouth 2 times daily. Mirabegron ER 25 MG tablet Take 1 tablet by mouth every evening. PARoxetine 10 MG tablet Take 1 tablet by mouth daily every morning. Takes with 40mg for Total dose 50mg QAM 30 tablet 5 PHENobarbital 16.2 MG tablet Take 1 tablet by mouth 2 times daily. (7 am and 1 pm with 32.4 mg tablets) 60 tablet 5 PHENobarbital 32.4 MG tablet 1 tab po in AM, 1 tab at 1pm, and two tabs at bedtime (7 am,1 pm, 7pm) 120 tablet 5 Phenytoin extended 100 MG capsule Take 3 capsules by mouth at bedtime. 90 capsule 11 Polyethylene glycol 17 g Pack packet Take 1 packet by mouth every evening. At 5PM quetiapine 200 MG tablet GIVE 1 TABLET BY MOUTH DAILY AT BEDTIME (TOTAL 250MG BEDTIME DOSE) *MD HARE AWARE OF INTXN W/ PHENYTOIN 09/17/21* 30 tablet 4 QUEtiapine 50 MG tablet GIVE 1 TABLET BY MOUTH TWICE DAILY (TOTAL 250MG BEDTIME DOSE) *MD HARE AWARE OF INTXN W/ PHENYTOIN 09/17/21* 60 tablet 4 senna 8.6 MG tablet Take 1 tablet by mouth 2 times daily. Tamsulosin HCl 0.4 MG capsule Take 1 capsule by mouth at bedtime. oxyCODONE-acetaminophen 5-325 MG per tablet Take 1 tablet by mouth every 6 hours as needed for up to 7 days. (Patient not taking: Reported on 06/27/2024) 28 tablet 0 No facility-administered medications prior to visit. REVIEW OF SYSTEMS No question data found. Double Vision - Dizziness - Sleepiness - Blurred Vision - Unsteadiness - Shaky hands - Upset Stomach + Weight Gain - Headaches - Nervousness - Depression - Memory problems - Disturbed Sleep - Difficulty Concentrating - Rashes - Hair loss - Tiredness + Constipation - Are you interested in learning about clinical trials for treatment of your epilepsy that we offer at the [facility]? No If you have tried 2 or 3 anti-seizure medications and your seizures are still not controlled, are you interested in learning about surgical options for your epilepsy that we can offer at the [facility]? No 05/30/2024 12:00 PM RUMA 7 Anxiety Screen Feeling nervous, anxious or on edge Several days Not being able to stop or control worrying Several days Worrying too much about different things Several days Trouble relaxing Several days Being so restless that it is hard to sit still Not at all Becoming easily annoyed or irritable More than half the days Feeling afraid as if something awful might happen Not at all RUMA-7 Total Score 6 If you checked off any problems, how difficult have these problems made it for you to do your work, take care of things at home, or get along with other people? Not difficult at all No data to display PHYSICAL EXAM Vitals: 06/27/24 1038 BP: 144/79 Pulse: 74 Temp: 97.9 degrees F (36.6 degrees C) TempSrc: Infrared Weight: 84.1 kg (185 lb 8 oz) Height: 1.727 m (5' 8) Body mass index is 28.21 kg/m . General: drowsy, slightly cooperative, no distress, , appears stated age Mental status: drowsy, oriented to self; attention impaired Speech/language: limited speech, dysarthric, able to swallow liquids without overt choking CRANIAL NERVES EOMI,no nystagmus Hearing is grossly intact. Gait: wheelchair dependent for mobility PERTINENT LABS, NEURODIAGNOSTIC STUDIES, NEUROIMAGING, AND NEUROPSYCHOLOGY TESTING LABS:No results found for: PHENYTOIN, PHENOBARBITA, VALPROICACTT, VALPROICACID, VALPROACIDT, VALPROICACFR, CARBAMAZTTL, CARBAMAZEPIN, CARBAMAZFREE, CARBAMAZEPFR, OXCARBAZEPIN, YLACO, ZONISAMIDE, PREGABALIN, LAMOTRIGINE, TOPIRAMSO, LEVETIRACETA Lab Results Component Value Date WBC 9.77 08/16/2023 HGB 14.6 08/16/2023 HCT 45.0 08/16/2023 MCV 95.7 (H) 08/16/2023 RBCDISTRIBU 13.4 08/16/2023 MPV 10.2 08/16/2023 PLATELET 237 08/16/2023 Lab Results Component Value Date SODIUM 138 08/16/2023 POTASSIUM 4.4 08/16/2023 CHLORIDE 101 08/16/2023 CO2 32 (H) 08/16/2023 BUN 21 08/16/2023 CREATSERUM 0.58 (L) 08/16/2023 GLUCOSE 97 08/06/2021 CALCIUM 9.1 08/06/2021 MAGNESIUM 2.2 08/06/2021 HGBA1C 5.3 08/16/2023 ESTAVGGLUCOS 105 08/16/2023 TP 6.8 11/17/2021 ALBUMIN 4.0 08/06/2021 BILITOTAL 0.2 08/06/2021 BILIDIRECT <0.1 08/06/2021 ALKPHOS 129 (H) 08/06/2021 ALT 38 08/06/2021 AST 24 08/06/2021 LIPASE 37 08/06/2021 Lab Results Component Value Date TSH 3.191 08/16/2023 B12 362 11/17/2021 Neurodiagnostics: ROUTINE EEG IMPRESSION 04/18/2023: CLINICAL IMPRESSION: This is an abnormal prolonged EEG due to the presence of moderate diffuse slowing, indicative of a moderate non-specific encephalopathy. Dictated By: Srini Bowen MD Neuroimaging: BRAIN MRI WO CONTRAST IMPRESSION 12/08/21: No acute intracranial abnormality or mass effect. Neuropsychology Testing: NONE ON FILE 09/20/2023 10/18/2023 11/22/2023 02/22/2024 05/30/2024 06/27/2024 NEURO VNS Date Placed 08/30/2023 08/30/2023 08/30/2023 08/30/2023 08/30/2023 Model Number 1000 1000 1000 1000 1000 Serial Number [id number] Output Current (mA) 0.5 mA 0 mA 0.75 mA 0.5 mA 1.25 mA 0.75 mA 1.5 mA 1.25 mA 1.75 mA 1.5 mA 1.75 mA Signal Frequency (Hz) 20 Hz 20 Hz 20 Hz 20 Hz 20 Hz 20 Hz 20 Hz Pulse Width (microseconds) 250 microseconds 250 microseconds 250 microseconds 250 microseconds 250 microseconds 250 microseconds 250 microseconds Signal ON Time (seconds) 30 seconds 30 seconds 30 seconds 30 seconds 30 seconds 30 seconds 30 seconds Signal OFF Time (minutes) 3 minutes 5 minutes 3 minutes 3 minutes 3 minutes 3 minutes 3 minutes [employer] Output Current (mA) 0 mA 0 mA 0.875 mA 0 mA 1.375 mA 0.875 mA 1.625 mA 1.375 mA 1.875 mA 1.75 mA 1.875 mA [employer] Pulse Width (microseconds) 250 microseconds 250 microseconds 250 microseconds 250 microseconds 250 microseconds 250 microseconds [employer] ON Time (seconds) 30 seconds 30 seconds 30 seconds 30 seconds 30 seconds 30 seconds Tachycardia Detection On On On On Heartbeat Detection Sensitivity 3 3 3 3 Threshold for [employer] (%) 20 % 20 % 20 % 20 % Number of [employer] Uses 145.12 Magnet Output Current (mA) 0.625 mA 0 mA 1 mA 0.625 mA 1.5 mA 1 mA 1.75 mA 1.5 mA 2 mA 1.75 mA 2 mA Magnet Pulse Width (microseconds) 250 microseconds 250 microseconds 250 microseconds 250 microseconds 250 microseconds 250 microseconds 250 microseconds Magnet ON Time (seconds) 60 seconds 60 seconds 60 seconds 60 seconds 60 seconds 60 seconds 60 seconds Does this patient have night settings? -- Normal Output Current (mA) 1.75 mA Normal Signal Frequency (Hz) 20 Hz Normal Pulse Width (microseconds) 250 microseconds Normal Signal ON Time (seconds) 30 seconds Normal Signal OFF Time (minutes) 5 minutes [employer] Output Current (mA) 1.875 mA [employer] Pulse Width (microseconds) 250 microseconds [employer] ON Time (seconds) 30 seconds Magnet Output Current (mA) 2 mA Magnet Pulse Width (microseconds) 250 microseconds Magnet ON Time (seconds) 60 seconds Output Status 0 0.5 0.75 1.75 Lead Impedence OK ok OK OK OK OK OK DC/DC Code 3537 3475 3337 3000 2837 2762 Elective Replacement Indicator 75-100 75-100 75-100 75-100 75-1000 75-100 75-100 Multiple values from one day are sorted in reverse-chronological order During this visit, I interrogated the device and performed a device diagnostics. There was no indication of system malfunctioning or near end of service. The communication, output status, and lead status were functioning appropriately. I explained signs and symptoms associated with device malfunctioning and counseled accordingly. The time of device assessment was less then thirty minutes. The total face to face time was in addition to VNS procedures. Billing: VNS: VNS Complex Reprogramming (>3 changes) CPT code 38553 Assessment and Plan Assessment: Pancho is a pleasant 64 y.o. male with The encounter diagnosis was Generalized idiopathic epilepsy and epileptic syndromes, intractable, without status epilepticus.who presents to clinic for continued VNS reprogramming today, however, upon further discussion there is a concern that perhaps the VNS may be affecting Mr. Mcpherson's quality of sleep. With his known JAIME and inability to be adherent to CPAP, his seizure severity has had a slight uptick over the last 3-4 months which could potentially coincide with VNS adjustments affecting his sleep. It is not clear however and Pancho is not able to articulate this. He may also benefit from medication adjustments however, this would be safer in the Epilepsy Monitoring Unit. There is also a question to his semiology potentially changing (they described potentially RUE stiffening followed by BUE complex/hypermotor movements which are slightly different from previous descriptions. Due to this change in progress I have recommended the following: Plan: 1. Generalized idiopathic epilepsy and epileptic syndromes, intractable, without status epilepticus Low dose clonazepam - continue ASM regimen the same: Vimpat 200 mg twice daily; phenytoin ER 300 mg daily at bedtime; phenobarbital 48.6 mg in AM and 1 pm, 64.8 mg at bedtime, clonazepam 1 mg at bedtime except change Keppra to extended release. - Mr. Mcpherson tolerated continued programming well today - no facial grimacing, coughing, behavioral changes or other indicators of discomfort during programming today. Discussed with staff things to look for when at home: coughing while eating/drinking. Of note, we DID NOT increase duty cycle or output but added night time setting to decrease nighttime duty cycle. We discussed signs and symptoms associated with battery depletion including sporadic stimulation, neck/facial discomfort and a lack of sensation with magnet use and patient was instructed to call our clinic [facility] should these s/s occur. - We discussed factors that lower seizure threshold including non-adherence, extreme temperature changes, sleep deprivation, acute illness, decongestants, stress, fatigue and others. Missing doses of your seizure meds can cause breakthrough seizures. - will refer to the EMU for medication management, he may benefit from streamlining his regimen - AMB REFERRAL TO EPILEPSY MONITORING UNIT - NE ELEC JEAN IMPLT CPLX CN NPGT PRGRMG - Reviewed seizure action plan, they will use the following: diazepam (Valtoco) nasal spray. Will plan to create SAP for his care staff to review, happy to answer additional questions. Reviewed seizure videos with ictal cry and sonorous breathing as examples of what typical convulsive seizures look like. - We reviewed the following safety issues: occupation/work related injuries including not to work in close proximity of machines with moving parts, not to work in high places, bathing/swimming, falls/injury prevention, and risk for skin hugo. We reviewed seizure first aid, seizure rescue medications and when to call 9-1-1. We discussed seizure first aid: Generally speaking, emergency staff should be notified for seizure activity lasting longer than 5 minutes. - Given that he has had improvement with the VNS, we will move out his appointment from 1 month to 2 months for VNS adjustments unless otherwise specified 2. Encounter for adjustment and management of neurostimulator - NE ELEC JEAN IMPLT CPLX CN NPGT PRGRMG Encouraged use of MyChart to send messages to provider as needed for questions and concerns or can call our clinic @ [phone]. He will return in 3 months or sooner if clinically indicated. Signed, Kaushal Avitia MSN, ASSEMBLY STOCK SUPERVISOR-OPERATIONS AND MAINTENANCE SPECIALIST [facility] Department of Neurology - Epilepsy Division [address] [place] [address] - 7th floor [place] [phone] Pager: [phone] Time to complete visit: I spent approximately 34 minutes reviewing the chart prior to the appointment, in face to face counseling with the patient, and with documentation after the visit. Note to patient: The Century Cures Act makes medical notes like these available to patients in the interest of transparency. However, be advised this is a medical document. It is intended as [id number] communication. It is written in medical language and may contain abbreviations or verbiage that are unfamiliar. It may appear blunt or direct. Medical documents are intended to carry relevant information, facts as evident, and the clinical opinion of the practitioner. documented in this encounter [facility] 06-27-2024 Instructions DAVID Rodriguez - 06/27/2024 11:00 AM EST Central scheduling [phone] to schedule EMU 09/20/2023 10/18/2023 11/22/2023 02/22/2024 05/30/2024 06/27/2024 NEURO VNS Date Placed 08/30/2023 08/30/2023 08/30/2023 08/30/2023 08/30/2023 Model Number 1000 1000 1000 1000 1000 Serial Number [id number] Output Current (mA) 0.5 mA 0 mA 0.75 mA 0.5 mA 1.25 mA 0.75 mA 1.5 mA 1.25 mA 1.75 mA 1.5 mA 1.75 mA Signal Frequency (Hz) 20 Hz 20 Hz 20 Hz 20 Hz 20 Hz 20 Hz 20 Hz Pulse Width (microseconds) 250 microseconds 250 microseconds 250 microseconds 250 microseconds 250 microseconds 250 microseconds 250 microseconds Signal ON Time (seconds) 30 seconds 30 seconds 30 seconds 30 seconds 30 seconds 30 seconds 30 seconds Signal OFF Time (minutes) 3 minutes 5 minutes 3 minutes 3 minutes 3 minutes 3 minutes 3 minutes Autostim Output Current (mA) 0 mA 0 mA 0.875 mA 0 mA 1.375 mA 0.875 mA 1.625 mA 1.375 mA 1.875 mA 1.75 mA 1.875 mA Autostim Pulse Width (microseconds) 250 microseconds 250 microseconds 250 microseconds 250 microseconds 250 microseconds 250 microseconds Autostim ON Time (seconds) 30 seconds 30 seconds 30 seconds 30 seconds 30 seconds 30 seconds Tachycardia Detection On On On On Heartbeat Detection Sensitivity 3 3 3 3 Threshold for Autostim (%) 20 % 20 % 20 % 20 % Number of Autostim Uses 145.12 Magnet Output Current (mA) 0.625 mA 0 mA 1 mA 0.625 mA 1.5 mA 1 mA 1.75 mA 1.5 mA 2 mA 1.75 mA 2 mA Magnet Pulse Width (microseconds) 250 microseconds 250 microseconds 250 microseconds 250 microseconds 250 microseconds 250 microseconds 250 microseconds Magnet ON Time (seconds) 60 seconds 60 seconds 60 seconds 60 seconds 60 seconds 60 seconds 60 seconds Does this patient have night settings? -- Normal Output Current (mA) 1.75 mA Normal Signal Frequency (Hz) 20 Hz Normal Pulse Width (microseconds) 250 microseconds Normal Signal ON Time (seconds) 30 seconds Normal Signal OFF Time (minutes) 5 minutes Autostim Output Current (mA) 1.875 mA Autostim Pulse Width (microseconds) 250 microseconds Autostim ON Time (seconds) 30 seconds Magnet Output Current (mA) 2 mA Magnet Pulse Width (microseconds) 250 microseconds Magnet ON Time (seconds) 60 seconds Output Status 0 0.5 0.75 1.75 Lead Impedence OK ok OK OK OK OK OK DC/DC Code 3537 3475 3337 5041 0944 8801 Elective Replacement Indicator 75-100 75-100 75-100 75-100 75-1000 75-100 75-100 Multiple values from one day are sorted in reverse-chronological order [facility] History of Present illness Narrative Subjective Patient ID: Pancho Mcpherson is a 64 y.o. male who presents for Annual Exam (Group physical ). HPI Patient is here today for Annual exam with intermediate staff. Pt has a few seizures since I last saw him. Was in the ED last week. Did follow up with Neurology last week, is swiping his magnet every night before bed on vagus nerve stimulator, did not change dosing of meds. Review of Systems Constitutional: Negative for activity change and appetite change. Psychiatric/Behavioral: +seizures Objective BP 122/70 Pulse 110 Ht 1.753 m (5' 9) Wt 83.9 kg (185 lb) BMI 27.32 kg/m Physical Exam Constitutional: General: He is not in acute distress. Appearance: Normal appearance. Comments: In wheelchair HENT: Head: Normocephalic. Nose: Nose normal. Mouth/Throat: Pharynx: No oropharyngeal exudate. Eyes: General: Right eye: No discharge. Left eye: No discharge. Extraocular Movements: Extraocular movements intact. Pupils: Pupils are equal, round, and reactive to light. Cardiovascular: Rate and Rhythm: Normal rate and regular rhythm. Heart sounds: No murmur heard. No gallop. Pulmonary: Effort: Pulmonary effort is normal. No respiratory distress. Breath sounds: Normal breath sounds. No wheezing. Abdominal: General: Bowel sounds are normal. There is no distension. Palpations: Abdomen is soft. Tenderness: There is no abdominal tenderness. Musculoskeletal: General: No swelling. Normal range of motion. Cervical back: Neck supple. No tenderness. Comments: +trace pitting edema bilateral lower legs Skin: General: Skin is warm and dry. Coloration: Skin is not jaundiced. Neurological: General: No focal deficit present. Mental Status: He is alert. Comments: Chronic right sided weakness, upper and lower extremities Psychiatric: Mood and Affect: Mood normal. Behavior: Behavior normal. Assessment/Plan Problem List Items Addressed This Visit Hyperlipidemia Relevant Orders Lipid Panel Hypertension Relevant Orders Comprehensive Metabolic Panel Other Visit Diagnoses Screening for diabetes mellitus - Primary Relevant Orders Hemoglobin A1C Vitamin D deficiency Relevant Orders Vitamin D 25-Hydroxy,Total (for eval of Vitamin D levels) B12 deficiency Relevant Orders Vitamin B12 Screening for lipid disorders Elevated blood sugar Relevant Orders Hemoglobin A1C Immunizations Flu shot 2023 COVID received PNA received Shingles RSV recommended PSA 2022, sees Dr Padilla Colon cancer screening Drug Resistant Epilepsy - following with neurology at [facility] - has a vagus nerve stimulator placed in 09/06 - on keppra, phenobarbital, dilantin 2. Cervical spinal stenosis, s/p ACDF c3-c5 in 2020, residual weakness in right side, wheelchair bound 3. HTN, controlled - continue norvasc 10mg po daily 4. HLD - continue lipitor 10mg po daily 5. Schizophrenia, intellectual disability - follows with psych, has an appt tomorrow - on cogentin 1mg po q6 - on aricept, namenda - haldol prn - paxil 40mg po daily - on seroquel 6. Seasonal allergies - continue zyrtec 7. GERD - on famotidine 8. Hypothyroidism - continue synthroid 9. Recurrent UTIs , BPH - sees Dr Padilla once a year - on hiprex - on myrbetriq - on flomax Final diagnoses: [Z13.1] Screening for diabetes mellitus [E55.9] Vitamin D deficiency [E53.8] B12 deficiency [Z13.220] Screening for lipid disorders [E78.2] Mixed hyperlipidemia [I10] Primary hypertension [R73.9] Elevated blood sugar documented in this encounter [facility] Work Phone: 05-30-2024 History of Present illness Narrative Images from the original note were not included. [facility] Pancho Mcpherson was seen in the [facility] on 05/30/2024. He is here today for a follow-up accompanied by his caregiver . He was last seen on 04/05/[address] Carrie García MD and with me on 02/21/24 in clinic. History of Present Illness INTERVAL HISTORY: Pancho is a 64 y.o. male who has a past medical history of Developmental delay, Essential hypertension, benign, Hyperlipidemia, Hypothyroidism, Intractable epilepsy, Mental retardation, Prostate enlargement, Recurrent UTI, 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who has experienced seizures since his last office visit. His last seizure on 05/25 and was unprovoked. He also experienced 2 seizures in April that may have been provoked by acute illness (COVID). A seizure on 05/14 that required 5 mg Nayzilam also was unprovoked. He has, however, had overall improvement with the VNS. It was noted that his phenytoin level was low and his levetiracetam was elevated recently. Pertinent Seizure History Per Dr García 04/05/23: His seizures after having an event of high fever around age of 6 months. Thereafter his seizures have always remain difficult to control with anti seizure drug therapy. As caregiver, his seizures are characterized as loud vocalization followed by limb stiffening and unresponsiveness lasting for a minute followed by post ictal period of confusion and sleepiness. Denies any well defined prodrome or aura (visual, auditory or olfactory hallucinations, taste sensation, ning vu etc..) Seizure occurrence time: Denies any diurnal or nocturnal (either during sleep or upon awakening) pattern. Triggers: Denies any known triggers like stress, sleep deprivation, menses, flashing lights etc.. Frequency: 2-3 per month Longest duration of seizure freedom: Unknown History of status epilepticus : No documented history of SE or history for cluster of seizures. Seizure risk factors: Developmental delay: As per sister, Born on term thorough normal vaginal delivery. Achieved developmental milestones (language and motor milestones) on time but then started to regress cognitively and also required physical therapy . Denies any educational difficulties in school. History of febrile seizures: No. Brain infection (Meningitis or encephalitis) : No. Stroke : No. Head injury complicated with LOC : No. Alcohol withdrawal seizures : No. Use of cocaine or other recreational drugs: No. Family history of epilepsy: No. Anti-seizure drug (ASD) history: Current ASD: Pheno-Paola 32.4 mg -32.4 mg -64.8 mg , Dilantin 300 mg at bedtime , LEV 2000 mg BID , Lacosamide 200 mg BID Klonopin 1 mg at bedtime Past ASD : Rescue ASD : PERTINENT LABS, NEURODIAGNOSTIC STUDIES, NEUROIMAGING AND NEUROPSYCHOLOGICAL TESTING Prior evaluation: MRI brain : 2021 reported negative for any intracranial pathologies except for WM changes EEG : none in our system Nuclear imaging : PAST MEDICAL, FAMILY, SOCIAL HISTORY, ALLERGIES AND MEDICATIONS Past Medical History He has a past medical history of Developmental delay, Essential hypertension, benign, Hyperlipidemia, Hypothyroidism, Intractable epilepsy, Mental retardation, Prostate enlargement, Recurrent UTI, 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 He has no past medical history of Pacemaker. Past Family History family history includes Alcoholism in his brother and father; Lipid Disorder in his mother; Schizophrenia in his father. Past Social History He reports that he has never smoked. He has never used smokeless tobacco. He reports that he does not drink alcohol and does not use drugs. Past Surgical History has a past surgical history that includes reduction open orbital floor fx with implant or bone graft (Right, 06/05/2014); laparotomy exploratory (2019); leg surgery; eye surgery (Right); fusion anterior interbody cervical (N/A, 05/26/2021); graft spine surgery only allograft anterior add-on px (N/A, 05/26/2021); insertion spinal instrumentation anterior add-on px (ip only) (N/A, 05/26/2021); fusion anterior interbody each addl interspace add-on px (N/A, 05/26/2021); monitoring neurophysiology intraoperative add-on px (N/A, 05/26/2021); microsurgical techniques w/ operating microscope add-on px (N/A, 05/26/2021); discectomy anterior cervical (N/A, 05/26/2021); removal spinal instrumentation anterior (N/A, 05/26/2021); fusion anterior interbody cervical each addl interspacex (N/A, 05/26/2021); insertion neurostimulator electrode & generator cranial nerve (eg vagus) open (N/A, 08/30/2023); and guidance fluoroscopic needle placement add-on px (N/A, 08/30/2023). Allergies He has No Known Allergies. Medications Outpatient Medications Prior to Visit Medication Sig Dispense Refill Acetaminophen 325 MG tablet Take 2 tablets by mouth 2 times daily. atorvastatin 10 MG tablet Take 1 tablet by mouth daily every morning. calcium carbonate (Nils-Gest Antacid) 500 MG Chew Tab tablet Chew 1 tablet 2 times daily. Cholecalciferol (Vitamin D-3) 25 MCG (1000 UT) capsule Take 2 capsules by mouth daily every morning. clonazePAM 1 MG tablet GIVE 1 TABLET BY MOUTH DAILY AT BEDTIME 30 tablet 5 cyanocobalamin 500 MCG tablet Take 2 tablets by mouth daily. (Patient taking differently: Take 2 tablets by mouth daily every morning.) diazePAM, 20 MG Dose, (Valtoco 20 MG Dose) 2 x 10 MG/0.1ML Liquid Therapy Pack Give 10 mg in ONE nostril as needed for convulsive seizure lasting 5 minutes or longer. MAX 2 DOSES IN 7 DAYS. 4 Each 1 faMOTIdine 20 MG tablet Take 1 tablet by mouth 2 times daily. Before meals folic acid 1 MG tablet Take 1 tablet by mouth daily every morning. Lacosamide (Vimpat) 200 MG tablet Take 1 tablet by mouth every 12 hours. 60 tablet 5 levETIRAcetam 500 MG tablet Take 4 tablets by mouth 2 times daily. 240 tablet 5 Levothyroxine 100 MCG tablet Take 1 tablet by mouth every morning before breakfast. Takes with 137mcg for total dose of 227mcg QAM levothyroxine 137 MCG tablet Take 1 tablet by mouth daily every morning. Takes with 100mcg tab for total dose of 227mcg QAM Methenamine Hippurate 1 g tablet Take 1 tablet by mouth 2 times daily. metoprolol 25 MG tab regular release Take 0.5 tablets by mouth 2 times daily. Mirabegron ER 25 MG tablet Take 1 tablet by mouth every evening. oxyCODONE-acetaminophen 5-325 MG per tablet Take 1 tablet by mouth every 6 hours as needed for up to 7 days. 28 tablet 0 PARoxetine 10 MG tablet Take 1 tablet by mouth daily every morning. Takes with 40mg for Total dose 50mg QAM 30 tablet 5 PHENobarbital 16.2 MG tablet Take 1 tablet by mouth 2 times daily. (7 am and 1 pm with 32.4 mg tablets) 60 tablet 5 PHENobarbital 32.4 MG tablet 1 tab po in AM, 1 tab at 1pm, and two tabs at bedtime (7 am,1 pm, 7pm) 120 tablet 5 Phenytoin extended 100 MG capsule Take 3 capsules by mouth at bedtime. 90 capsule 11 Polyethylene glycol 17 g Pack packet Take 1 packet by mouth every evening. At 5PM quetiapine 200 MG tablet GIVE 1 TABLET BY MOUTH DAILY AT BEDTIME (TOTAL 250MG BEDTIME DOSE) *MD HARE AWARE OF INTXN W/ PHENYTOIN 09/17/21* 30 tablet 4 QUEtiapine 50 MG tablet GIVE 1 TABLET BY MOUTH TWICE DAILY (TOTAL 250MG BEDTIME DOSE) *MD HARE AWARE OF INTXN W/ PHENYTOIN 09/17/21* 60 tablet 4 senna 8.6 MG tablet Take 1 tablet by mouth 2 times daily. Tamsulosin HCl 0.4 MG capsule Take 1 capsule by mouth at bedtime. No facility-administered medications prior to visit. REVIEW OF SYSTEMS No question data found. Double Vision - Dizziness - Sleepiness - Blurred Vision - Unsteadiness - Shaky hands - Upset Stomach + Weight Gain - Headaches - Nervousness - Depression - Memory problems - Disturbed Sleep - Difficulty Concentrating - Rashes - Hair loss - Tiredness + Constipation - Are you interested in learning about clinical trials for treatment of your epilepsy that we offer at the [facility]? No If you have tried 2 or 3 anti-seizure medications and your seizures are still not controlled, are you interested in learning about surgical options for your epilepsy that we can offer at the [facility]? No Neurological Disorders Depression Inventory for Epilepsy (NDDI-E) Everything is a struggle: Sometimes Nothing I do is right: Never Feel guilty: Rarely I'd be better off : Never Frustrated: Sometimes Difficulty finding pleasure: Never Total NDDI-E Score: 11 05/30/2024 12:00 PM RUMA 7 Anxiety Screen Feeling nervous, anxious or on edge Several days Not being able to stop or control worrying Several days Worrying too much about different things Several days Trouble relaxing Several days Being so restless that it is hard to sit still Not at all Becoming easily annoyed or irritable More than half the days Feeling afraid as if something awful might happen Not at all RUMA-7 Total Score 6 If you checked off any problems, how difficult have these problems made it for you to do your work, take care of things at home, or get along with other people? Not difficult at all No data to display PHYSICAL EXAM Vitals: 05/30/24 1258 BP: 156/76 Pulse: 73 Temp: 99.1 degrees F (37.3 degrees C) There is no height or weight on file to calculate BMI. General: alert, cooperative, no distress, , appears stated age Mental status: alert, oriented to self; attention impaired - able to follow one step commands Speech/language: limited speech, dysarthric, able to swallow liquids without overt choking CRANIAL NERVES EOMI,no nystagmus Hearing is grossly intact. Motor: Decreased bulk, increased BUE tone Resting tremor: R>L Gait: wheelchair dependent for mobility PERTINENT LABS, NEURODIAGNOSTIC STUDIES, NEUROIMAGING, AND NEUROPSYCHOLOGY TESTING LABS:No results found for: PHENYTOIN, PHENOBARBITA, VALPROICACTT, VALPROICACID, VALPROACIDT, VALPROICACFR, CARBAMAZTTL, CARBAMAZEPIN, CARBAMAZFREE, CARBAMAZEPFR, OXCARBAZEPIN, YLACO, ZONISAMIDE, PREGABALIN, LAMOTRIGINE, TOPIRAMSO, LEVETIRACETA Lab Results Component Value Date WBC 9.77 08/16/2023 HGB 14.6 08/16/2023 HCT 45.0 08/16/2023 MCV 95.7 (H) 08/16/2023 RBCDISTRIBU 13.4 08/16/2023 MPV 10.2 08/16/2023 PLATELET 237 08/16/2023 Lab Results Component Value Date SODIUM 138 08/16/2023 POTASSIUM 4.4 08/16/2023 CHLORIDE 101 08/16/2023 CO2 32 (H) 08/16/2023 BUN 21 08/16/2023 CREATSERUM 0.58 (L) 08/16/2023 GLUCOSE 97 08/06/2021 CALCIUM 9.1 08/06/2021 MAGNESIUM 2.2 08/06/2021 HGBA1C 5.3 08/16/2023 ESTAVGGLUCOS 105 08/16/2023 TP 6.8 11/17/2021 ALBUMIN 4.0 08/06/2021 BILITOTAL 0.2 08/06/2021 BILIDIRECT <0.1 08/06/2021 ALKPHOS 129 (H) 08/06/2021 ALT 38 08/06/2021 AST 24 08/06/2021 LIPASE 37 08/06/2021 Lab Results Component Value Date TSH 3.191 08/16/2023 B12 362 11/17/2021 Neurodiagnostics: ROUTINE EEG IMPRESSION 04/18/2023: CLINICAL IMPRESSION: This is an abnormal prolonged EEG due to the presence of moderate diffuse slowing, indicative of a moderate non-specific encephalopathy. Dictated By: Srini Bowen MD Neuroimaging: BRAIN MRI WO CONTRAST IMPRESSION 12/08/21: No acute intracranial abnormality or mass effect. Neuropsychology Testing: NONE ON FILE 09/20/2023 10/18/2023 11/22/2023 02/22/2024 05/30/2024 NEURO VNS Date Placed 08/30/2023 08/30/2023 08/30/2023 08/30/2023 08/30/2023 Model Number 1000 1000 1000 1000 1000 Serial Number [id number] Output Current (mA) 0.5 mA 0 mA 0.75 mA 0.5 mA 1.25 mA 0.75 mA 1.5 mA 1.25 mA 1.75 mA 1.5 mA Signal Frequency (Hz) 20 Hz 20 Hz 20 Hz 20 Hz 20 Hz 20 Hz Pulse Width (microseconds) 250 microseconds 250 microseconds 250 microseconds 250 microseconds 250 microseconds 250 microseconds Signal ON Time (seconds) 30 seconds 30 seconds 30 seconds 30 seconds 30 seconds 30 seconds Signal OFF Time (minutes) 3 minutes 5 minutes 3 minutes 3 minutes 3 minutes 3 minutes Autostim Output Current (mA) 0 mA 0 mA 0.875 mA 0 mA 1.375 mA 0.875 mA 1.625 mA 1.375 mA 1.875 mA 1.75 mA Autostim Pulse Width (microseconds) 250 microseconds 250 microseconds 250 microseconds 250 microseconds 250 microseconds Autostim ON Time (seconds) 30 seconds 30 seconds 30 seconds 30 seconds 30 seconds Tachycardia Detection On On On Heartbeat Detection Sensitivity 3 3 3 Threshold for Autostim (%) 20 % 20 % 20 % Number of Autostim Uses 145.12 Magnet Output Current (mA) 0.625 mA 0 mA 1 mA 0.625 mA 1.5 mA 1 mA 1.75 mA 1.5 mA 2 mA 1.75 mA Magnet Pulse Width (microseconds) 250 microseconds 250 microseconds 250 microseconds 250 microseconds 250 microseconds 250 microseconds Magnet ON Time (seconds) 60 seconds 60 seconds 60 seconds 60 seconds 60 seconds 60 seconds Output Status 0 0.5 0.75 Lead Impedence OK ok OK OK OK OK DC/DC Code 3537 3475 3337 3000 2837 Elective Replacement Indicator 75-100 75-100 75-100 75-100 75-1000 75-100 Multiple values from one day are sorted in reverse-chronological order During this visit, I interrogated the device and performed a device diagnostics. There was no indication of system malfunctioning or near end of service. The communication, output status, and lead status were functioning appropriately. I explained signs and symptoms associated with device malfunctioning and counseled accordingly. The time of device assessment was less then thirty minutes. The total face to face time was in addition to VNS procedures. Billing: VNS: VNS Simple Reprogramming (1-3 changes) CPT code 66286 Assessment and Plan Assessment: Pancho is a pleasant 64 y.o. male with The encounter diagnosis was Generalized idiopathic epilepsy and epileptic syndromes, intractable, without status epilepticus.who presents to clinic for continued VNS reprogramming today which he tolerated well.His staff continues to notice improvement in seizures since implantation of VNS but has voiced concerns of some care staff having difficulty recognizing seizures thus I have recommended the following: Plan: 1. Generalized idiopathic epilepsy and epileptic syndromes, intractable, without status epilepticus - has had a recent increase in breakthrough seizures, would like to see how he does over the next month, may need to re-evaluate his VNS settings - continue ASM regimen the same: Vimpat 200 mg twice daily; Keppra 2000 mg twice daily; phenytoin ER 300 mg daily at bedtime; phenobarbital 48.6 mg in AM and 1 pm, 64.8 mg at bedtime, clonazepam 1 mg at bedtime - Mr. Mcpherson tolerated continued programming well today - no facial grimacing, coughing, behavioral changes or other indicators of discomfort during programming today. Discussed with staff things to look for when at home: coughing while eating/drinking. We discussed signs and symptoms associated with battery depletion including sporadic stimulation, neck/facial discomfort and a lack of sensation with magnet use and patient was instructed to call our clinic [facility] should these s/s occur. - We discussed factors that lower seizure threshold including non-adherence, extreme temperature changes, sleep deprivation, acute illness, decongestants, stress, fatigue and others. Missing doses of your seizure meds can cause breakthrough seizures. - NE ELEC JEAN IMPLT SMPL CN NPGT PRGRMG - Reviewed seizure action plan, they will use the following: diazepam (Valtoco) nasal spray. Will plan to create SAP for his care staff to review, happy to answer additional questions. Reviewed seizure videos with ictal cry and sonorous breathing as examples of what typical convulsive seizures look like. 2. Encounter for adjustment and management of neurostimulator - NE ELEC JEAN IMPLT SMPL CN NPGT PRGRMG Encouraged use of [employer] Experience to send messages to provider as needed for questions and concerns or can call our clinic @ [phone]. He will return in 4 weeks or sooner if clinically indicated. Signed, Kaushal MALDNOADO, ASSEMBLY STOCK SUPERVISOR-OPERATIONS AND MAINTENANCE SPECIALIST [facility] Department of Neurology - Epilepsy Division [address] [place] [address] - [address]th floor [place] [phone] Pager: [phone] Time to complete visit: I spent approximately 32 minutes reviewing the chart prior to the appointment, in face to face counseling with the patient, and with documentation after the visit. Note to patient: The Century Cures Act makes medical notes like these available to patients in the interest of transparency. However, be advised this is a medical document. It is intended as [id number] communication. It is written in medical language and may contain abbreviations or verbiage that are unfamiliar. It may appear blunt or direct. Medical documents are intended to carry relevant information, facts as evident, and the clinical opinion of the practitioner. documented in this encounter [facility] 05-30-2024 Instructions DAVID Rodriguez - 05/30/2024 12:00 PM EDT Recommend swiping magnet at med pass (can be in the morning or at night) We made changes to the VNS today which he tolerated well His Dilantin level tends to run low (this is his norm) would not recommend increasing as phenytoin can easily become saturated in his blood and he can be toxic. His levetiracetam (Keppra) was elevated however, we do not have toxicity ranges for this medication and it was checked a few hours after he received his dose. I anticipate this to be elevated and would not change it. No changes to your medicine documented in this encounter [facility] 05-23-2024 History of Present illness Narrative Subjective Patient ID: Pancho Mcpherson is a 64 y.o. male who presents for ER Follow-up. HPI Here today for ER follow up. Was taken to ER due to seizure, he was given his rescue diazepam intranasally at home, was still not responding so EMS was called. At the ER his dilantin level was found to be low and keppra level was high and vimpat was normal. He does see his neurologist on 05/30 and encouraged caregivers to talk with them about medication dosing. Since discharge he has been back to baseline, he is eating and drinking normal. Caregivers denie any other concerns Review of Systems Constitutional: Negative for chills, fatigue and fever. Respiratory: Negative for cough and shortness of breath. Cardiovascular: Negative for chest pain, palpitations and leg swelling. Neurological: Positive for tremors and seizures. Negative for weakness, light-headedness and headaches. Objective BP 115/74 (Patient Position: Sitting) Pulse 84 Physical Exam Cardiovascular: Rate and Rhythm: Normal rate. Heart sounds: Normal heart sounds. Pulmonary: Breath sounds: Normal breath sounds. Skin: Capillary Refill: Capillary refill takes less than 2 seconds. Neurological: Mental Status: He is alert. Mental status is at baseline. Assessment/Plan Problem List Items Addressed This Visit None Seizures -follow up with neurology next week, likely needs medicine titrated. documented in this encounter [facility] Work Phone: 05-15-2024 Hospital Discharge instructions Ginette Torres DO - 05/15/2024 2:38 AM EDT The patient's Dilantin level was low. The Vimpat and Keppra are both send outs and the levels will be available for 1 or 2 more days. Once you get these results you have to discuss them with neurologist about potentially changing the dosage of medications he is taking. They may need to increase his Dilantin by 100 mg. The following attachments cannot be sent through Care Everywhere.Epilepsy in adults ([place]ai[place]ese)documented in this encounter [facility] Work Phone: 05-01-2024 History of Present illness Narrative HPI Chief Complaint Patient presents with Follow-up Patient presents for bilateral fungal care, go over doppler Patient is a pleasant 63-year-old male who comes in today with his caregivers for thick nails and to get his nails cut. Past Medical History: Diagnosis Date Balance problem Depression Disease of thyroid gland Disorientation Fatigue Hearing loss Hyperlipidemia Lack of coordination Memory loss Seizures (HCC) Speech abnormality History reviewed. No pertinent surgical history. Social History Socioeconomic History Marital status: Single Tobacco Use Smoking status: Never Vaping Use Vaping status: Never Used Substance and Sexual Activity Alcohol use: Never Review of Systems Physical Exam Patient is AOx3. Linear and appropriate humor and thought process. Vascular: DP PT pulses are poorly palpable. CFT is delayed with moderate pitting edema. Skin is warm to cool proximal to distal and shiny in nature. Neuro: Blunted Babinski's is blunted. Musculoskeletal: Muscle strength is 2 out of 5. Ankle subtalar is full and pain-free. Nails left 1-3 for 5 and right foot 1-3 for 5 are thickened dystrophic and mycotic. Impression/Plan Problem List Items Addressed This Visit None Visit Diagnoses Onychomycosis - Primary Peripheral vascular disease, unspecified (HCC) Patient is a pleasant 63-year-old 63-year-old male with peripheral arterial disease, venous insufficiency, likely onychomycosis to 10 nails. -For the mycotic portion, does require debridement in light of his arterial disease. This is to reduce his limb loss risk score. PVRs reviewed and are triphasic therefore no vascular intervention warranted at this time Sharply debrided and debulk in height and length 10 onychomycotic nails hide at length with a sharp pair of nail nippers consistent with a q8 modifier. Okay to discontinue Pen[place] Low medical complexity decision making. Follow-up in 3 months for nail care. documented in this encounter [facility] 04-03-2024 History of Present illness Narrative Subjective Patient ID: Pancho Mcpherson is a 63 y.o. male. HPI Patient is here for 2 month follow up. He was taken off Flomax last visit. Caregiver states he gets the urge to urinate but nothing will come out. Denies dysuria. Denies hematuria. He is taking Myrbetriq but hasn't seen much change. Hx of recurrent UTI'S. Methenamine BID for frequent UTI's. Most recent PSA was 1.16 on 01/04. Prior PSA was 1.00 on 02/03. Review of Systems Constitutional: Negative for chills and fever. HENT: Negative. Eyes: Negative. Respiratory: Negative for cough and shortness of breath. Cardiovascular: Negative for chest pain and leg swelling. Gastrointestinal: Negative for nausea. Endocrine: Negative. Genitourinary: Negative for difficulty urinating. Negative except for documented in HPI Allergic/Immunologic: Negative. Neurological: Alert & oriented X 3 Hematological: Denies blood thinners Psychiatric/Behavioral: Negative. Objective Physical Exam Vitals and nursing note reviewed. Pulmonary: Effort: Pulmonary effort is normal. Abdominal: Palpations: Abdomen is soft. Tenderness: There is no abdominal tenderness. Genitourinary: Comments: Kidneys non palpable bilaterally Bladder non palpable or tender In wheelchair Neurological: Mental Status: He is alert. Assessment/Plan Diagnoses and all orders for this visit: Benign prostatic hyperplasia with urinary obstruction and other lower urinary tract symptoms Urinary frequency Urinary incontinence, unspecified type All available PSA values reviewed, Options discussed. Questions answered. Diet changes for prostate health discussed and educational information given. Pros/Cons of prostate health supplements discussed. Treatment options for LUTS reviewed discontinue Myrbetriq Discussed timed voiding. Discussed fluid and caffeine intake Treatment options for ED reviewed-Observe Lifestyle change to help prevent UTIs discussed. Encouraged fluid intake. No recent Sx. Continue Methamine CT reviewed from 03/05 F/U 1 year with PSA documented in this encounter [facility] Work Phone: 02-22-2024 History of Present illness Narrative Images from the original note were not included. [facility] Pancho Mcpherson was seen in the [facility] on 02/22/2024. He is here today for a follow-up accompanied by his caregiver . He was last seen on 04/05/[address] Carrie García MD and with me on 01/25/2024 via telehealth. History of Present Illness INTERVAL HISTORY: Pancho is a 63 y.o. male who has a past medical history of Developmental delay, Essential hypertension, benign, Hyperlipidemia, Hypothyroidism, Intractable epilepsy, Mental retardation, Prostate enlargement, Recurrent UTI, 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who has not experienced seizures since his last office visit. His last seizure occurred in January and overall he has had improvement with the VNS. Pertinent Seizure History Per Dr García 04/05/23: His seizures after having an event of high fever around age of 6 months. Thereafter his seizures have always remain difficult to control with anti seizure drug therapy. As caregiver, his seizures are characterized as loud vocalization followed by limb stiffening and unresponsiveness lasting for a minute followed by post ictal period of confusion and sleepiness. Denies any well defined prodrome or aura (visual, auditory or olfactory hallucinations, taste sensation, ning vu etc..) Seizure occurrence time: Denies any diurnal or nocturnal (either during sleep or upon awakening) pattern. Triggers: Denies any known triggers like stress, sleep deprivation, menses, flashing lights etc.. Frequency: 2-3 per month Longest duration of seizure freedom: Unknown History of status epilepticus : No documented history of SE or history for cluster of seizures. Seizure risk factors: Developmental delay: As per sister, Born on term thorough normal vaginal delivery. Achieved developmental milestones (language and motor milestones) on time but then started to regress cognitively and also required physical therapy . Denies any educational difficulties in school. History of febrile seizures: No. Brain infection (Meningitis or encephalitis) : No. Stroke : No. Head injury complicated with LOC : No. Alcohol withdrawal seizures : No. Use of cocaine or other recreational drugs: No. Family history of epilepsy: No. Anti-seizure drug (ASD) history: Current ASD: Pheno-Paola 32.4 mg -32.4 mg -64.8 mg , Dilantin 300 mg at bedtime , LEV 2000 mg BID , Lacosamide 200 mg BID Klonopin 1 mg at bedtime Past ASD : Rescue ASD : PERTINENT LABS, NEURODIAGNOSTIC STUDIES, NEUROIMAGING AND NEUROPSYCHOLOGICAL TESTING Prior evaluation: MRI brain : 2021 reported negative for any intracranial pathologies except for WM changes EEG : none in our system Nuclear imaging : PAST MEDICAL, FAMILY, SOCIAL HISTORY, ALLERGIES AND MEDICATIONS Past Medical History He has a past medical history of Developmental delay, Essential hypertension, benign, Hyperlipidemia, Hypothyroidism, Intractable epilepsy, Mental retardation, Prostate enlargement, Recurrent UTI, 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 He has no past medical history of Pacemaker. Past Family History family history includes Alcoholism in his brother and father; Lipid Disorder in his mother; Schizophrenia in his father. Past Social History He reports that he has never smoked. He has never used smokeless tobacco. He reports that he does not drink alcohol and does not use drugs. Past Surgical History has a past surgical history that includes reduction open orbital floor fx with implant or bone graft (Right, 06/05/2014); laparotomy exploratory (2019); leg surgery; eye surgery (Right); fusion anterior interbody cervical (N/A, 05/26/2021); graft spine surgery only allograft anterior add-on px (N/A, 05/26/2021); insertion spinal instrumentation anterior add-on px (ip only) (N/A, 05/26/2021); fusion anterior interbody each addl interspace add-on px (N/A, 05/26/2021); monitoring neurophysiology intraoperative add-on px (N/A, 05/26/2021); microsurgical techniques w/ operating microscope add-on px (N/A, 05/26/2021); discectomy anterior cervical (N/A, 05/26/2021); removal spinal instrumentation anterior (N/A, 05/26/2021); fusion anterior interbody cervical each addl interspacex (N/A, 05/26/2021); insertion neurostimulator electrode & generator cranial nerve (eg vagus) open (N/A, 08/30/2023); and guidance fluoroscopic needle placement add-on px (N/A, 08/30/2023). Allergies He has No Known Allergies. Medications Outpatient Medications Prior to Visit Medication Sig Dispense Refill Acetaminophen 325 MG tablet Take 2 tablets by mouth 2 times daily. atorvastatin 10 MG tablet Take 1 tablet by mouth daily every morning. calcium carbonate (Nils-Gest Antacid) 500 MG Chew Tab tablet Chew 1 tablet 2 times daily. Cholecalciferol (Vitamin D-3) 25 MCG (1000 UT) capsule Take 2 capsules by mouth daily every morning. clonazePAM 1 MG tablet Take 1 tablet by mouth at bedtime. 30 tablet 2 cyanocobalamin 500 MCG tablet Take 2 tablets by mouth daily. (Patient taking differently: Take 2 tablets by mouth daily every morning.) diazePAM, 20 MG Dose, (Valtoco 20 MG Dose) 2 x 10 MG/0.1ML Liquid Therapy Pack Give 10 mg in ONE nostril as needed for convulsive seizure lasting 5 minutes or longer. MAX 2 DOSES IN 7 DAYS. 4 Each 1 faMOTIdine 20 MG tablet Take 1 tablet by mouth 2 times daily. Before meals folic acid 1 MG tablet Take 1 tablet by mouth daily every morning. Lacosamide (Vimpat) 200 MG tablet Take 1 tablet by mouth every 12 hours. 60 tablet 5 levETIRAcetam 500 MG tablet Take 4 tablets by mouth 2 times daily. 240 tablet 5 Levothyroxine 100 MCG tablet Take 1 tablet by mouth every morning before breakfast. Takes with 137mcg for total dose of 227mcg QAM levothyroxine 137 MCG tablet Take 1 tablet by mouth daily every morning. Takes with 100mcg tab for total dose of 227mcg QAM Methenamine Hippurate 1 g tablet Take 1 tablet by mouth 2 times daily. metoprolol 25 MG tab regular release Take 0.5 tablets by mouth 2 times daily. Mirabegron ER 25 MG tablet Take 1 tablet by mouth every evening. oxyCODONE-acetaminophen 5-325 MG per tablet Take 1 tablet by mouth every 6 hours as needed for up to 7 days. 28 tablet 0 PARoxetine 10 MG tablet Take 1 tablet by mouth daily every morning. Takes with 40mg for Total dose 50mg QAM 30 tablet 5 PARoxetine 40 MG tablet Take 1 tablet by mouth daily every morning. Takes with 10mg for total dose of 50mg QAM 30 tablet 5 PHENobarbital 16.2 MG tablet Take 1 tablet by mouth 2 times daily. (7 am and 1 pm with 32.4 mg tablets) 60 tablet 5 PHENobarbital 32.4 MG tablet 1 tab po in AM, 1 tab at 1pm, and two tabs at bedtime (7 am,1 pm, 7pm) 120 tablet 5 Phenytoin extended 100 MG capsule Take 3 capsules by mouth at bedtime. 90 capsule 11 Polyethylene glycol 17 g Pack packet Take 1 packet by mouth every evening. At 5PM quetiapine 200 MG tablet Take 1 tablet by mouth at bedtime. Total bedtime dose 250mg 30 tablet 5 QUEtiapine 25 MG tablet Take 1 tablet by mouth daily. Every afternoon at 1pm 30 tablet 5 QUEtiapine 50 MG tablet Take 1 tablet by mouth 2 times daily. In the morning and at bedtime. Total bedtime dose 250mg 60 tablet 5 senna 8.6 MG tablet Take 1 tablet by mouth 2 times daily. Tamsulosin HCl 0.4 MG capsule Take 1 capsule by mouth at bedtime. No facility-administered medications prior to visit. REVIEW OF SYSTEMS No question data found. Double Vision - Dizziness - Sleepiness - Blurred Vision - Unsteadiness - Shaky hands - Upset Stomach - Weight Gain - Headaches - Nervousness - Depression - Memory problems - Disturbed Sleep - Difficulty Concentrating - Rashes - Hair loss - Tiredness - Constipation - No data to display No data to display PHYSICAL EXAM Vitals: 02/22/24 1111 BP: 127/73 Pulse: 70 Temp: 99 degrees F (37.2 degrees C) TempSrc: Infrared Weight: 83 kg (183 lb) Height: 1.727 m (5' 8) Body mass index is 27.83 kg/m . General: drowsy, cooperative, no distress, well-developed, appears stated age Mental status: drowsy, oriented to self; attention impaired - able to follow one step commands Speech/language: limited speech, dysarthric, able to swallow liquids without overt choking CRANIAL NERVES Visual souza intact to confrontation. PERRL,no nystagmus Facial movement intact and symmetrical bilaterally Hearing is grossly intact. Motor: Decreased bulk, increased BUE tone strength BUE 3/5 Resting tremor: R>L Coordination: [id number]-[id number]-hrao intact bilaterally. Gait: wheelchair dependent for mobility PERTINENT LABS, NEURODIAGNOSTIC STUDIES, NEUROIMAGING, AND NEUROPSYCHOLOGY TESTING LABS:No results found for: PHENYTOIN, PHENOBARBITA, VALPROICACTT, VALPROICACID, VALPROACIDT, VALPROICACFR, CARBAMAZTTL, CARBAMAZEPIN, CARBAMAZFREE, CARBAMAZEPFR, OXCARBAZEPIN, YLACO, ZONISAMIDE, PREGABALIN, LAMOTRIGINE, TOPIRAMSO, LEVETIRACETA Lab Results Component Value Date WBC 9.77 08/16/2023 HGB 14.6 08/16/2023 HCT 45.0 08/16/2023 MCV 95.7 (H) 08/16/2023 RBCDISTRIBU 13.4 08/16/2023 MPV 10.2 08/16/2023 PLATELET 237 08/16/2023 Lab Results Component Value Date SODIUM 138 08/16/2023 POTASSIUM 4.4 08/16/2023 CHLORIDE 101 08/16/2023 CO2 32 (H) 08/16/2023 BUN 21 08/16/2023 CREATSERUM 0.58 (L) 08/16/2023 GLUCOSE 97 08/06/2021 CALCIUM 9.1 08/06/2021 MAGNESIUM 2.2 08/06/2021 HGBA1C 5.3 08/16/2023 ESTAVGGLUCOS 105 08/16/2023 TP 6.8 11/17/2021 ALBUMIN 4.0 08/06/2021 BILITOTAL 0.2 08/06/2021 BILIDIRECT <0.1 08/06/2021 ALKPHOS 129 (H) 08/06/2021 ALT 38 08/06/2021 AST 24 08/06/2021 LIPASE 37 08/06/2021 Lab Results Component Value Date TSH 3.191 08/16/2023 B12 362 11/17/2021 Neurodiagnostics: ROUTINE EEG IMPRESSION 04/18/2023: CLINICAL IMPRESSION: This is an abnormal prolonged EEG due to the presence of moderate diffuse slowing, indicative of a moderate non-specific encephalopathy. Dictated By: Sriin Bowen MD Neuroimaging: BRAIN MRI WO CONTRAST IMPRESSION 12/08/21: No acute intracranial abnormality or mass effect. Neuropsychology Testing: NONE ON FILE 09/20/2023 10/18/2023 11/22/2023 02/22/2024 NEURO VNS Date Placed 08/30/2023 08/30/2023 08/30/2023 08/30/2023 Model Number 1000 1000 1000 1000 Serial Number [id number] Output Current (mA) 0.5 mA 0 mA 0.75 mA 0.5 mA 1.25 mA 0.75 mA 1.5 mA 1.25 mA Signal Frequency (Hz) 20 Hz 20 Hz 20 Hz 20 Hz 20 Hz Pulse Width (microseconds) 250 microseconds 250 microseconds 250 microseconds 250 microseconds 250 microseconds Signal ON Time (seconds) 30 seconds 30 seconds 30 seconds 30 seconds 30 seconds Signal OFF Time (minutes) 3 minutes 5 minutes 3 minutes 3 minutes 3 minutes Autostim Output Current (mA) 0 mA 0 mA 0.875 mA 0 mA 1.375 mA 0.875 mA 1.625 mA 1.375 mA Autostim Pulse Width (microseconds) 250 microseconds 250 microseconds 250 microseconds 250 microseconds Autostim ON Time (seconds) 30 seconds 30 seconds 30 seconds 30 seconds Tachycardia Detection On On Heartbeat Detection Sensitivity 3 3 Threshold for Autostim (%) 20 % 20 % Number of Autostim Uses 145.12 Magnet Output Current (mA) 0.625 mA 0 mA 1 mA 0.625 mA 1.5 mA 1 mA 1.75 mA 1.5 mA Magnet Pulse Width (microseconds) 250 microseconds 250 microseconds 250 microseconds 250 microseconds 250 microseconds Magnet ON Time (seconds) 60 seconds 60 seconds 60 seconds 60 seconds 60 seconds Output Status 0 0.5 0.75 Lead Impedence OK ok OK OK OK DC/DC Code 3537 3475 3337 6592 Elective Replacement Indicator 75-100 75-100 75-100 75-100 75-1000 During this visit, I interrogated the device and performed a device diagnostics. There was no indication of system malfunctioning or near end of service. The communication, output status, and lead status were functioning appropriately. I explained signs and symptoms associated with device malfunctioning and counseled accordingly. The time of device assessment was less then thirty minutes. The total face to face time was in addition to VNS procedures. Billing: VNS: VNS Simple Reprogramming (1-3 changes) CPT code 34420 Assessment and Plan Assessment: Pancho is a pleasant 63 y.o. male with The primary encounter diagnosis was Generalized idiopathic epilepsy and epileptic syndromes, intractable, without status epilepticus. Diagnoses of S/P placement of VNS (vagus nerve stimulation) device and Encounter for adjustment and management of neurostimulator were also pertinent to this visit.who presents to clinic for continued VNS reprogramming today which he tolerated well.His staff continues to notice improvement in seizures since implantation of VNS but has voiced concerns of some care staff having difficulty recognizing seizures thus I have recommended the following: Plan: 1. Generalized idiopathic epilepsy and epileptic syndromes, intractable, without status epilepticus - continue ASM regimen the same: Vimpat 200 mg twice daily; Keppra 2000 mg twice daily; phenytoin ER 300 mg daily at bedtime; phenobarbital 48.6 mg in AM and 1 pm, 64.8 mg at bedtime - Mr. Mcpherson tolerated continued programming well today - no facial grimacing, coughing, behavioral changes or other indicators of discomfort during programming today. Discussed with staff things to look for when at home: coughing while eating/drinking. We discussed signs and symptoms associated with battery depletion including sporadic stimulation, neck/facial discomfort and a lack of sensation with magnet use and patient was instructed to call our clinic [facility] should these s/s occur. - We discussed factors that lower seizure threshold including non-adherence, extreme temperature changes, sleep deprivation, acute illness, decongestants, stress, fatigue and others. Missing doses of your seizure meds can cause breakthrough seizures. - NE ELEC JEAN IMPLT SMPL CN NPGT PRGRMG - Reviewed seizure action plan, they will use the following: diazepam (Valtoco) nasal spray. Will plan to create SAP for his care staff to review, happy to answer additional questions. Reviewed seizure videos with ictal cry and sonorous breathing as examples of what typical convulsive seizures look like. - We reviewed the following safety issues: occupation/work related injuries including not to work in close proximity of machines with moving parts, not to work in high places, bathing/swimming, falls/injury prevention, and risk for skin hugo. We reviewed seizure first aid, seizure rescue medications and when to call . We discussed seizure first aid: Generally speaking, emergency staff should be notified for seizure activity lasting longer than 5 minutes. - Given that he has had improvement with the VNS, we will move out his appointment from 1 month to 2 months for VNS adjustments unless otherwise specified 2. S/P placement of VNS (vagus nerve stimulation) device - tolerated programming well today - NE ELEC JEAN IMPLT SMPL CN NPGT PRGRMG 3. Encounter for adjustment and management of neurostimulator - NE ELEC JEAN IMPLT SMPL CN NPGT PRGRMG Encouraged use of MyChart to send messages to provider as needed for questions and concerns or can call our clinic @ [phone]. He will return in 3 months or sooner if clinically indicated. Signed, Kaushal MALDONADO, ASSEMBLY STOCK SUPERVISOR-OPERATIONS AND MAINTENANCE SPECIALIST [facility] Department of Neurology - Epilepsy Division [address] [place] [address] - [address]th floor [place] [phone] Pager: [phone] Time to complete visit: I spent approximately 32 minutes reviewing the chart prior to the appointment, in face to face counseling with the patient, and with documentation after the visit. Note to patient: The Century Cures Act makes medical notes like these available to patients in the interest of transparency. However, be advised this is a medical document. It is intended as tzri-gk-rbna communication. It is written in medical language and may contain abbreviations or verbiage that are unfamiliar. It may appear blunt or direct. Medical documents are intended to carry relevant information, facts as evident, and the clinical opinion of the practitioner. documented in this encounter [facility] 02-22-2024 Instructions DAVID Rodriguez - 02/22/2024 11:00 AM EDT My Tonic Clonic/Grand Mal Seizure - [employer] [email or web address] Tonic Clonic/Grand Mal Seizure ([email or web address]) [email or web address] 11/22/2023 02/22/2024 NEURO VNS Date Placed 08/30/2023 Model Number 1000 Serial Number [id number] Output Current (mA) 1.25 mA 0.75 mA 1.5 mA 1.25 mA Signal Frequency (Hz) 20 Hz Pulse Width (microseconds) 250 microseconds Signal ON Time (seconds) 30 seconds Signal OFF Time (minutes) 3 minutes Autostim Output Current (mA) 1.375 mA 0.875 mA 1.625 mA 1.375 mA Autostim Pulse Width (microseconds) 250 microseconds Autostim ON Time (seconds) 30 seconds Tachycardia Detection On Heartbeat Detection Sensitivity 3 Threshold for Autostim (%) 20 % Number of Autostim Uses 145.12 Magnet Output Current (mA) 1.5 mA 1 mA 1.75 mA 1.5 mA Magnet Pulse Width (microseconds) 250 microseconds Magnet ON Time (seconds) 60 seconds Output Status 0.75 Lead Impedence OK OK DC/DC Code 3337 3000 Elective Replacement Indicator 75-100 75-1000 documented in this encounter [facility] 01-31-2024 History of Present illness Narrative HPI Chief Complaint Patient presents with Nail Care Patient presents for bilateral nail fungus, mild swelling bilateral calves Patient is a pleasant 63-year-old male who comes in today with his caregivers for thick nails and try to have his legs inspected. Ambulated for approximately the last 3 years due to back injury and required back surgery. They state that he had back surgery but it did not go as well as planned, they were given the chance to proceed with surgery again though still declined due to his lack of improvement. Past Medical History: Diagnosis Date Balance problem Depression Disease of thyroid gland Disorientation Fatigue Hearing loss Hyperlipidemia Lack of coordination Memory loss Seizures (HCC) Speech abnormality History reviewed. No pertinent surgical history. Social History Socioeconomic History Marital status: Single Tobacco Use Smoking status: Never Vaping Use Vaping Use: Never used Substance and Sexual Activity Alcohol use: Never Review of Systems Physical Exam Patient is AOx3. Linear and appropriate humor and thought process. Vascular: DP PT pulses are poorly palpable. CFT is delayed with moderate pitting edema. Skin is warm to cool proximal to distal and shiny in nature. Neuro: Blunted Babinski's is blunted. Musculoskeletal: Muscle strength is 2 out of 5. Ankle subtalar is full and pain-free. Nails left 1-3 for 5 and right foot 1-3 for 5 are thickened dystrophic and mycotic. Impression/Plan Problem List Items Addressed This Visit None Visit Diagnoses Peripheral vascular disease, unspecified (HCC) - Primary Relevant Orders Segmental Doppler Lower Extremity Arterial Onychomycosis Patient is a pleasant 63-year-old 63-year-old male with peripheral arterial disease, venous insufficiency, likely onychomycosis to 10 nails. -For the mycotic portion, does require debridement in light of his arterial disease. This is to reduce his limb loss risk score. Given weak pulses at rest, did order PVRs and ABIs. If these are failure, could consider compression therapy and this nonambulator. Sharply debrided and debulk in height and length 10 onychomycotic nails hide at length with a sharp pair of nail nippers consistent with a q8 modifier. Start topical Penlac daily for the next 90 days. Low medical complexity decision making. Follow-up in 3 months for nail care. documented in this encounter [facility] 01-24-2024 History of Present illness Narrative Subjective Patient ID: Pancho Mcpherson is a 63 y.o. male. HPI Patient is here for yearly f/u for recurrent UTI'S. Methenamine BID for frequent UTI's.....Patient has no current sx of UTI LUTs are chronic and mild. Having frequency. Denies urgency. Weak stream at times... Denies dysuria and hematuria..CYSTO done in 07/05... Nocturia x1 but wakes up wet about 1/2 of the time. .. Caffeine does worsen LUTs.. Myrbetriq and Flomax for LUTs but staff unsure if LUTS have changed or improved with these.Spinal Stenosis Sx 2-3 years ago...Most recent PSA was 1.16 on 01/04. Prior PSA was 1.00 on 02/03. CT 03/05 showed 3mm stone Review of Systems Constitutional: Negative for chills and fever. HENT: Negative. Eyes: Negative. Respiratory: Negative for cough and shortness of breath. Cardiovascular: Negative for chest pain and leg swelling. Gastrointestinal: Negative for nausea. Endocrine: Negative. Genitourinary: Negative for difficulty urinating. Negative except for documented in HPI Allergic/Immunologic: Negative. Neurological: Alert & oriented X 3 Hematological: Denies blood thinners Psychiatric/Behavioral: Negative. Objective Physical Exam Vitals and nursing note reviewed. Constitutional: General: He is not in acute distress. Appearance: Normal appearance. Pulmonary: Effort: Pulmonary effort is normal. Abdominal: Tenderness: There is no abdominal tenderness. Genitourinary: Comments: Kidneys non palpable bilaterally Bladder non palpable or tender Scrotum no mass, No hydrocele Epididymis- No spermatocele. Non Tender. Testicles: No mass. Symmetric Urethra: No discharge Penis within normal limits... No lesions. circumcised Prostate - unable to position In Wheelchair Neurological: Mental Status: He is alert. Assessment/Plan Diagnoses and all orders for this visit: Benign prostatic hyperplasia with urinary obstruction and other lower urinary tract symptoms Urinary frequency Urinary incontinence, unspecified type All available PSA values reviewed, Options discussed. Questions answered. Diet changes for prostate health discussed and educational information given. Pros/Cons of prostate health supplements discussed. Treatment options for LUTS reviewed discontinue Flomax-unsure if helping Continue Myrbetriq for now-May try to stop as well Discussed timed voiding. Discussed fluid and caffeine intake Treatment options for ED reviewed. Lifestyle change to help prevent UTIs discussed. Encouraged fluid intake. Discussed prophylaxis Curently on Methenamine-Rx refilled with home F/U 2 months to review LUTS off Flomax CT reviewed documented in this encounter [facility] Work Phone: 01-09-2024 History of Present illness Narrative Subjective Patient ID: Pancho Mcpherson is a 63 y.o. male who presents for Cerumen Impaction (Ear lavage /Patient constantly picking at his ears/Mild drainage) and Nail Problem (Patients family made concern about patient toe nails; may need to see podiatry ). HPI PATIENT IS here today for ear concerns. Pt has been itchying and digging at his ears per intermediate staff. Also requesting referral to podiatry. Review of Systems HENT: Positive for ear pain. Objective BP 129/80 Pulse 92 Ht 1.753 m (5' 9) Wt 83.9 kg (185 lb) BMI 27.32 kg/m Physical Exam Constitutional: Appearance: Normal appearance. Comments: In wheelchair HENT: Head: Normocephalic. Right Ear: There is no impacted cerumen. Left Ear: There is no impacted cerumen. Ears: Comments: Trace amounts of wax in distal ear canal, no obstructing wax, very dry and scaly skin around external ear and canal Nose: Nose normal. Skin: Comments: Thickened brittle spitting nails consistent with fungus on right toenails Neurological: Mental Status: He is alert. Psychiatric: Mood and Affect: Mood normal. Assessment/Plan Problem List Items Addressed This Visit None Visit Diagnoses Allergic eczema - Primary Relevant Medications [id number]-qesnoikui-HU (Cortisporin) otic solution Nail fungus Relevant Orders Referral to Podiatry Ear excema - sent ear drops use for 3-5 days and use otc cortisone 10 to qtip applied to ear canal and external, once resolved can use 2-3 x a week to keep at bay 2. Nail fungus -referral to podiatry Final diagnoses: [L23.9] Allergic eczema [B35.1] Nail fungus documented in this encounter [facility] Work Phone: 12-07-2023 Instructions Lemuel Sommer II, OD - 12/07/2023 1:36 PM EDT Assessment and Plan H25.813 Combined form of senile cataract of both eyes (primary encounter diagnosis) Comment: Slow progression but still tolerable. Caregivers have not noticed any apparent vision problems. Continue observation at Dilated fundus exam in 8 months. 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 Monitor. I have confirmed and edited as necessary the relevant HPI, ophthalmic history, ROS, and the neuro exam findings as obtained by others. I have seen and examined Pancho Mcpherson. I have discussed the case and the management of this patient's care with the Resident/Fellow, if applicable. I also have reviewed and agree with the assessment and plan as stated above and agree with all of its relevant components. documented in this encounter [facility] 12-07-2023 Note HNO ID: [id number] Author: LEMUEL SOMMER II, OD Service: ? Author Type: WIRE PHOTO OPERATOR NEWS Type: Progress Notes Filed: 12/07/2023 13:37 Note Text: Assessment and Plan H25.813 Combined form of senile cataract of both eyes (primary encounter diagnosis) Comment: Slow progression but still tolerable. Caregivers have not noticed any apparent vision problems. Continue observation at Dilated fundus exam in 8 months. 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 Monitor. I have confirmed and edited as necessary the relevant HPI, ophthalmic history, ROS, and the neuro exam findings as obtained by others. I have seen and examined Pancho Mcpherson. I have discussed the case and the management of this patient's care with the Resident/Fellow, if applicable. I also have reviewed and agree with the assessment and plan as stated above and agree with all of its relevant components. [facility] 12-07-2023 History of Present illness Narrative Assessment and Plan H25.813 Combined form of senile cataract of both eyes (primary encounter diagnosis) Comment: Slow progression but still tolerable. Caregivers have not noticed any apparent vision problems. Continue observation at Dilated fundus exam in 8 months. 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 Monitor. I have confirmed and edited as necessary the relevant HPI, ophthalmic history, ROS, and the neuro exam findings as obtained by others. I have seen and examined Pancho Mcpherson. I have discussed the case and the management of this patient's care with the Resident/Fellow, if applicable. I also have reviewed and agree with the assessment and plan as stated above and agree with all of its relevant components. documented in this encounter [facility] 11-22-2023 History of Present illness Narrative Images from the original note were not included. [facility] Pancho Mcpherson was seen in the [facility] at [facility] on 11/22/2023. He is here today for a follow-up accompanied by his caregiver . He was last seen on 04/05/[address] Carrie García MD and with me on 10/18/23 for continued VNS programming. History of Present Illness INTERVAL HISTORY: Pancho is a 63 y.o. male who has a past medical history of Developmental delay, Essential hypertension, benign, Hyperlipidemia, Hypothyroidism, Intractable epilepsy, Mental retardation, Prostate enlargement, Recurrent UTI, 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who has experienced seizures since his last office visit. He averages 1-2 seizures per month but did experience a slight increase after his VNS was titrated. However, after the titration he has done well and appears has had additional improvement after the last titration. Staff has not noticed any facial grimacing, increased agitation, difficulty swallowing liquids/solids. Pertinent Seizure History Per Dr García 04/05/23: His seizures after having an event of high fever around age of 6 months. Thereafter his seizures have always remain difficult to control with anti seizure drug therapy. As caregiver, his seizures are characterized as loud vocalization followed by limb stiffening and unresponsiveness lasting for a minute followed by post ictal period of confusion and sleepiness. Denies any well defined prodrome or aura (visual, auditory or olfactory hallucinations, taste sensation, ning vu etc..) Seizure occurrence time: Denies any diurnal or nocturnal (either during sleep or upon awakening) pattern. Triggers: Denies any known triggers like stress, sleep deprivation, menses, flashing lights etc.. Frequency: 2-3 per month Longest duration of seizure freedom: Unknown History of status epilepticus : No documented history of SE or history for cluster of seizures. Seizure risk factors: Developmental delay: As per sister, Born on term thorough normal vaginal delivery. Achieved developmental milestones (language and motor milestones) on time but then started to regress cognitively and also required physical therapy . Denies any educational difficulties in school. History of febrile seizures: No. Brain infection (Meningitis or encephalitis) : No. Stroke : No. Head injury complicated with LOC : No. Alcohol withdrawal seizures : No. Use of cocaine or other recreational drugs: No. Family history of epilepsy: No. Anti-seizure drug (ASD) history: Current ASD: Pheno-Paola 32.4 mg -32.4 mg -64.8 mg , Dilantin 300 mg at bedtime , LEV 2000 mg BID , Lacosamide 200 mg BID Klonopin 1 mg at bedtime Past ASD : Rescue ASD : PERTINENT LABS, NEURODIAGNOSTIC STUDIES, NEUROIMAGING AND NEUROPSYCHOLOGICAL TESTING Prior evaluation: MRI brain : 2021 reported negative for any intracranial pathologies except for WM changes EEG : none in our system Nuclear imaging : PAST MEDICAL, FAMILY, SOCIAL HISTORY, ALLERGIES AND MEDICATIONS Past Medical History He has a past medical history of Developmental delay, Essential hypertension, benign, Hyperlipidemia, Hypothyroidism, Intractable epilepsy, Mental retardation, Prostate enlargement, Recurrent UTI, 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 He has no past medical history of Pacemaker. Past Family History family history includes Alcoholism in his brother and father; Lipid Disorder in his mother; Schizophrenia in his father. Past Social History He reports that he has never smoked. He has never used smokeless tobacco. He reports that he does not drink alcohol and does not use drugs. Past Surgical History has a past surgical history that includes reduction open orbital floor fx with implant or bone graft (Right, 06/05/2014); laparotomy exploratory (2019); leg surgery; eye surgery (Right); fusion anterior interbody cervical (N/A, 05/26/2021); graft spine surgery only allograft anterior add-on px (N/A, 05/26/2021); insertion spinal instrumentation anterior add-on px (ip only) (N/A, 05/26/2021); fusion anterior interbody each addl interspace add-on px (N/A, 05/26/2021); monitoring neurophysiology intraoperative add-on px (N/A, 05/26/2021); microsurgical techniques w/ operating microscope add-on px (N/A, 05/26/2021); discectomy anterior cervical (N/A, 05/26/2021); removal spinal instrumentation anterior (N/A, 05/26/2021); fusion anterior interbody cervical each addl interspacex (N/A, 05/26/2021); insertion neurostimulator electrode & generator cranial nerve (eg vagus) open (N/A, 08/30/2023); and guidance fluoroscopic needle placement add-on px (N/A, 08/30/2023). Allergies He has No Known Allergies. Medications Outpatient Medications Prior to Visit Medication Sig Dispense Refill Acetaminophen 325 MG tablet Take 2 tablets by mouth 2 times daily. atorvastatin 10 MG tablet Take 1 tablet by mouth daily every morning. calcium carbonate (Nils-Gest Antacid) 500 MG Chew Tab tablet Chew 1 tablet 2 times daily. Cholecalciferol (Vitamin D-3) 25 MCG (1000 UT) capsule Take 2 capsules by mouth daily every morning. clonazePAM 1 MG tablet Take 1 tablet by mouth at bedtime. 30 tablet 2 cyanocobalamin 500 MCG tablet Take 2 tablets by mouth daily. (Patient taking differently: Take 2 tablets by mouth daily every morning.) diazePAM, 20 MG Dose, (Valtoco 20 MG Dose) 2 x 10 MG/0.1ML Liquid Therapy Pack Give 10 mg in ONE nostril as needed for convulsive seizure lasting 5 minutes or longer. MAX 2 DOSES IN 7 DAYS. 4 Each 1 faMOTIdine 20 MG tablet Take 1 tablet by mouth 2 times daily. Before meals folic acid 1 MG tablet Take 1 tablet by mouth daily every morning. Lacosamide (Vimpat) 200 MG tablet Take 1 tablet by mouth every 12 hours. 60 tablet 5 levETIRAcetam 500 MG tablet Take 4 tablets by mouth 2 times daily. 240 tablet 5 Levothyroxine 100 MCG tablet Take 1 tablet by mouth every morning before breakfast. Takes with 137mcg for total dose of 227mcg QAM levothyroxine 137 MCG tablet Take 1 tablet by mouth daily every morning. Takes with 100mcg tab for total dose of 227mcg QAM Methenamine Hippurate 1 g tablet Take 1 tablet by mouth 2 times daily. metoprolol 25 MG tab regular release Take 0.5 tablets by mouth 2 times daily. Mirabegron ER 25 MG tablet Take 1 tablet by mouth every evening. PARoxetine 10 MG tablet Take 1 tablet by mouth daily every morning. Takes with 40mg for Total dose 50mg QAM 30 tablet 5 PARoxetine 40 MG tablet Take 1 tablet by mouth daily every morning. Takes with 10mg for total dose of 50mg QAM 30 tablet 5 PHENobarbital 16.2 MG tablet Take 1 tablet by mouth 2 times daily. (7 am and 1 pm with 32.4 mg tablets) 60 tablet 5 PHENobarbital 32.4 MG tablet 1 tab po in AM, 1 tab at 1pm, and two tabs at bedtime (7 am,1 pm, 7pm) 120 tablet 5 Phenytoin extended 100 MG capsule Take 3 capsules by mouth at bedtime. 90 capsule 11 Polyethylene glycol 17 g Pack packet Take 1 packet by mouth every evening. At 5PM quetiapine 200 MG tablet Take 1 tablet by mouth at bedtime. Total bedtime dose 250mg 30 tablet 5 QUEtiapine 25 MG tablet Take 1 tablet by mouth daily. Every afternoon at 1pm 30 tablet 5 QUEtiapine 50 MG tablet Take 1 tablet by mouth 2 times daily. In the morning and at bedtime. Total bedtime dose 250mg 60 tablet 5 senna 8.6 MG tablet Take 1 tablet by mouth 2 times daily. Tamsulosin HCl 0.4 MG capsule Take 1 capsule by mouth at bedtime. oxyCODONE-acetaminophen 5-325 MG per tablet Take 1 tablet by mouth every 6 hours as needed for up to 7 days. 28 tablet 0 No facility-administered medications prior to visit. REVIEW OF SYSTEMS No question data found. Double Vision - Dizziness - Sleepiness - Blurred Vision - Unsteadiness - Shaky hands - Upset Stomach - Weight Gain - Headaches - Nervousness - Depression - Memory problems - Disturbed Sleep - Difficulty Concentrating - Rashes - Hair loss - Tiredness - Constipation - No data to display No data to display PHYSICAL EXAM Vitals: 11/22/23 1252 BP: 121/69 Pulse: 71 Resp: 16 Temp: 98.6 degrees F (37 degrees C) TempSrc: Temporal SpO2: 93% Weight: 83 kg (183 lb) Height: 1.727 m (5' 8) Body mass index is 27.83 kg/m . General: alert, cooperative, no distress, well-developed, appears stated age Mental status: alert; oriented to self; attention impaired - able to follow one step commands Speech/language: CRANIAL NERVES Coordination is intact to finger to nose testing. Visual souza intact to confrontation. PERRL,no nystagmus Facial movement intact and symmetrical bilaterally Hearing is grossly intact. Motor: Decreased bulk, increased BUE tone strength BUE 3/5 Resting tremor: none Coordination: Hnlvwv-id-jlaz intact bilaterally. Gait: wheelchair dependent for mobility PERTINENT LABS, NEURODIAGNOSTIC STUDIES, NEUROIMAGING, AND NEUROPSYCHOLOGY TESTING LABS:No results found for: PHENYTOIN, PHENOBARBITA, VALPROICACTT, VALPROICACID, VALPROACIDT, VALPROICACFR, CARBAMAZTTL, CARBAMAZEPIN, CARBAMAZFREE, CARBAMAZEPFR, OXCARBAZEPIN, YLACO, ZONISAMIDE, PREGABALIN, LAMOTRIGINE, TOPIRAMSO, LEVETIRACETA Lab Results Component Value Date WBC 9.77 08/16/2023 HGB 14.6 08/16/2023 HCT 45.0 08/16/2023 MCV 95.7 (H) 08/16/2023 RBCDISTRIBU 13.4 08/16/2023 MPV 10.2 08/16/2023 PLATELET 237 08/16/2023 Lab Results Component Value Date SODIUM 138 08/16/2023 POTASSIUM 4.4 08/16/2023 CHLORIDE 101 08/16/2023 CO2 32 (H) 08/16/2023 BUN 21 08/16/2023 CREATSERUM 0.58 (L) 08/16/2023 GLUCOSE 97 08/06/2021 CALCIUM 9.1 08/06/2021 MAGNESIUM 2.2 08/06/2021 HGBA1C 5.3 08/16/2023 ESTAVGGLUCOS 105 08/16/2023 TP 6.8 11/17/2021 ALBUMIN 4.0 08/06/2021 BILITOTAL 0.2 08/06/2021 BILIDIRECT <0.1 08/06/2021 ALKPHOS 129 (H) 08/06/2021 ALT 38 08/06/2021 AST 24 08/06/2021 LIPASE 37 08/06/2021 Lab Results Component Value Date TSH 3.191 08/16/2023 B12 362 11/17/2021 Neurodiagnostics: ROUTINE EEG IMPRESSION 04/18/2023: CLINICAL IMPRESSION: This is an abnormal prolonged EEG due to the presence of moderate diffuse slowing, indicative of a moderate non- specific encephalopathy. Dictated By: Srini Bowen MD Neuroimaging: BRAIN MRI WO CONTRAST IMPRESSION 12/08/21: No acute intracranial abnormality or mass effect. Neuropsychology Testing: NONE ON FILE 09/20/2023 10/18/2023 11/22/2023 NEURO VNS Date Placed 08/30/2023 08/30/2023 08/30/2023 08/30/2023 Model Number 1000 1000 1000 1000 Serial Number [id number] Output Current (mA) 0.5 mA 0 mA 0.75 mA 0.5 mA 1.25 mA 0.75 mA Signal Frequency (Hz) 20 Hz 20 Hz 20 Hz 20 Hz 20 Hz Pulse Width (microseconds) 250 microseconds 250 microseconds 250 microseconds 250 microseconds 250 microseconds Signal ON Time (seconds) 30 seconds 30 seconds 30 seconds 30 seconds 30 seconds Signal OFF Time (minutes) 3 minutes 5 minutes 3 minutes 3 minutes 3 minutes Autostim Output Current (mA) 0 mA 0 mA 0.875 mA 0 mA 1.375 mA 0.875 mA Autostim Pulse Width (microseconds) 250 microseconds 250 microseconds 250 microseconds 250 microseconds Autostim ON Time (seconds) 30 seconds 30 seconds 30 seconds 30 seconds Tachycardia Detection On On Heartbeat Detection Sensitivity 3 3 Threshold for Autostim (%) 20 % 20 % Number of Autostim Uses 145.12 Magnet Output Current (mA) 0.625 mA 0 mA 1 mA 0.625 mA 1.5 mA 1 mA Magnet Pulse Width (microseconds) 250 microseconds 250 microseconds 250 microseconds 250 microseconds 250 microseconds Magnet ON Time (seconds) 60 seconds 60 seconds 60 seconds 60 seconds 60 seconds Output Status 0 0.5 0.75 Lead Impedence OK ok OK OK DC/DC Code 3537 3475 3337 Elective Replacement Indicator 75-100 75-100 75-100 75-100 During this visit, I interrogated the device and performed a device diagnostics. There was no indication of system malfunctioning or near end of service. The communication, output status, and lead status were functioning appropriately. I explained signs and symptoms associated with device malfunctioning and counseled accordingly. The time of device assessment was less then thirty minutes. The total face to face time was in addition to VNS procedures. Billing: VNS: VNS Simple Reprogramming (1-3 changes) CPT code 90517 Assessment and Plan Assessment: Pancho is a pleasant 63 y.o. male with The encounter diagnosis was Generalized idiopathic epilepsy and epileptic syndromes, intractable, without status epilepticus.who presents to clinic for continued VNS reprogramming today which he tolerated well. He has had a noticeable improvement in seizures since implantation according to the seizure diary that his staff provided today. We will continue to program device as tolerated and needed. Plan: 1. Focal epilepsy - continue ASM regimen the same: Vimpat 200 mg twice daily; Keppra 2000 mg twice daily; phenytoin ER 300 mg daily at bedtime; phenobarbital 48.6 mg in AM and 1 pm, 64.8 mg at bedtime - Mr. Mcpherson tolerated continued programming well today - no facial grimacing, coughing, behavioral changes or other indicators of discomfort during programming today. Discussed with staff things to look for when at home: coughing while eating/drinking. We discussed signs and symptoms associated with battery depletion including sporadic stimulation, neck/facial discomfort and a lack of sensation with magnet use and patient was instructed to call our clinic [facility] should these s/s occur. - We discussed factors that lower seizure threshold including non-adherence, extreme temperature changes, sleep deprivation, acute illness, decongestants, stress, fatigue and others. Missing doses of your seizure meds can cause breakthrough seizures. - Reviewed seizure action plan, they will use the following: diazepam (Valtoco) nasal spray - We reviewed the following safety issues: occupation/work related injuries including not to work in close proximity of machines with moving parts, not to work in high places, bathing/swimming, falls/injury prevention, and risk for skin hugo. We reviewed seizure first aid, seizure rescue medications and when to call . We discussed seizure first aid: Generally speaking, emergency staff should be notified for seizure activity lasting longer than 5 minutes. - Given that he has had improvement with the VNS, we will move out his appointment from 1 month to 2 months for VNS adjustments unless otherwise specified 2. Encounter for adjustment and management of neurostimulator - NE ELEC JEAN IMPLT SMPL CN NPGT PRGRMG Encouraged use of MyChart to send messages to provider as needed for questions and concerns or can call our clinic @ [phone]. He will return in 2 months or sooner if clinically indicated. Signed, Kaushal Avitia MSN, ASSEMBLY STOCK SUPERVISOR-OPERATIONS AND MAINTENANCE SPECIALIST [facility] Department of Neurology - Epilepsy Division [address] [place] [address] - 7th floor [place] [phone] Pager: [phone] Time to complete visit: I spent approximately 21 minutes reviewing the chart prior to the appointment, in face to face counseling with the patient, and with documentation after the visit. Note to patient: The Cures Act makes medical notes like these available to patients in the interest of transparency. However, be advised this is a medical document. It is intended as [id number] communication. It is written in medical language and may contain abbreviations or verbiage that are unfamiliar. It may appear blunt or direct. Medical documents are intended to carry relevant information, facts as evident, and the clinical opinion of the practitioner. documented in this encounter [facility] 11-22-2023 Instructions DAVID Rodriguez - 11/22/2023 1:00 PM EDT Images from the original note were not included. documented in this encounter [facility] 10-18-2023 History of Present illness Narrative Images from the original note were not included. [facility] Pancho Mcpherson was seen in the [facility] at [facility] on 10/18/2023. He is here today for a follow-up accompanied by his caregiver . He was last seen on 04/05/[address] Carrie García MD and with al on 09/20/23 for initial VNS programming. History of Present Illness INTERVAL HISTORY: Pancho is a 63 y.o. male who has a past medical history of Developmental delay, Essential hypertension, benign, Hyperlipidemia, Hypothyroidism, Intractable epilepsy, Mental retardation, Prostate enlargement, Recurrent UTI, 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who has experienced seizures since his last office visit. He averages 1-2 seizures per month but did experience a slight increase after his VNS was titrated. However, after the titration he has done well. Pertinent Seizure History Per Dr García 04/05/23: His seizures after having an event of high fever around age of 6 months. Thereafter his seizures have always remain difficult to control with anti seizure drug therapy. As caregiver, his seizures are characterized as loud vocalization followed by limb stiffening and unresponsiveness lasting for a minute followed by post ictal period of confusion and sleepiness. Denies any well defined prodrome or aura (visual, auditory or olfactory hallucinations, taste sensation, ning vu etc..) Seizure occurrence time: Denies any diurnal or nocturnal (either during sleep or upon awakening) pattern. Triggers: Denies any known triggers like stress, sleep deprivation, menses, flashing lights etc.. Frequency: 2-3 per month Longest duration of seizure freedom: Unknown History of status epilepticus : No documented history of SE or history for cluster of seizures. Seizure risk factors: Developmental delay: As per sister, Born on term thorough normal vaginal delivery. Achieved developmental milestones (language and motor milestones) on time but then started to regress cognitively and also required physical therapy . Denies any educational difficulties in school. History of febrile seizures: No. Brain infection (Meningitis or encephalitis) : No. Stroke : No. Head injury complicated with LOC : No. Alcohol withdrawal seizures : No. Use of cocaine or other recreational drugs: No. Family history of epilepsy: No. Anti-seizure drug (ASD) history: Current ASD: Pheno-Paola 32.4 mg -32.4 mg -64.8 mg , Dilantin 300 mg at bedtime , LEV 2000 mg BID , Lacosamide 200 mg BID Klonopin 1 mg at bedtime Past ASD : Rescue ASD : PERTINENT LABS, NEURODIAGNOSTIC STUDIES, NEUROIMAGING AND NEUROPSYCHOLOGICAL TESTING Prior evaluation: MRI brain : 2021 reported negative for any intracranial pathologies except for WM changes EEG : none in our system Nuclear imaging : PAST MEDICAL, FAMILY, SOCIAL HISTORY, ALLERGIES AND MEDICATIONS Past Medical History He has a past medical history of Developmental delay, Essential hypertension, benign, Hyperlipidemia, Hypothyroidism, Intractable epilepsy, Mental retardation, Prostate enlargement, Recurrent UTI, 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 He has no past medical history of Pacemaker. Past Family History family history includes Alcoholism in his brother and father; Lipid Disorder in his mother; Schizophrenia in his father. Past Social History He reports that he has never smoked. He has never used smokeless tobacco. He reports that he does not drink alcohol and does not use drugs. Past Surgical History has a past surgical history that includes reduction open orbital floor fx with implant or bone graft (Right, 06/05/2014); laparotomy exploratory (2019); leg surgery; eye surgery (Right); fusion anterior interbody cervical (N/A, 05/26/2021); graft spine surgery only allograft anterior add-on px (N/A, 05/26/2021); insertion spinal instrumentation anterior add-on px (ip only) (N/A, 05/26/2021); fusion anterior interbody each addl interspace add-on px (N/A, 05/26/2021); monitoring neurophysiology intraoperative add-on px (N/A, 05/26/2021); microsurgical techniques w/ operating microscope add-on px (N/A, 05/26/2021); discectomy anterior cervical (N/A, 05/26/2021); removal spinal instrumentation anterior (N/A, 05/26/2021); fusion anterior interbody cervical each addl interspacex (N/A, 05/26/2021); insertion neurostimulator electrode & generator cranial nerve (eg vagus) open (N/A, 08/30/2023); and guidance fluoroscopic needle placement add-on px (N/A, 08/30/2023). Allergies He has No Known Allergies. Medications Outpatient Medications Prior to Visit Medication Sig Dispense Refill Acetaminophen 325 MG tablet Take 2 tablets by mouth 2 times daily. atorvastatin 10 MG tablet Take 1 tablet by mouth daily every morning. calcium carbonate (Nils-Gest Antacid) 500 MG Chew Tab tablet Chew 1 tablet 2 times daily. Cholecalciferol (Vitamin D-3) 25 MCG (1000 UT) capsule Take 2 capsules by mouth daily every morning. clonazePAM 1 MG tablet Take 1 tablet by mouth at bedtime. 30 tablet 2 cyanocobalamin 500 MCG tablet Take 2 tablets by mouth daily. (Patient taking differently: Take 2 tablets by mouth daily every morning.) diazePAM, 20 MG Dose, (Valtoco 20 MG Dose) 2 x 10 MG/0.1ML Liquid Therapy Pack Give 10 mg in ONE nostril as needed for convulsive seizure lasting 5 minutes or longer. MAX 2 DOSES IN 7 DAYS. 4 Each 1 faMOTIdine 20 MG tablet Take 1 tablet by mouth 2 times daily. Before meals folic acid 1 MG tablet Take 1 tablet by mouth daily every morning. Lacosamide (Vimpat) 200 MG tablet Take 1 tablet by mouth every 12 hours. 60 tablet 5 levETIRAcetam 500 MG tablet Take 4 tablets by mouth 2 times daily. 240 tablet 5 Levothyroxine 100 MCG tablet Take 1 tablet by mouth every morning before breakfast. Takes with 137mcg for total dose of 227mcg QAM levothyroxine 137 MCG tablet Take 1 tablet by mouth daily every morning. Takes with 100mcg tab for total dose of 227mcg QAM Methenamine Hippurate 1 g tablet Take 1 tablet by mouth 2 times daily. metoprolol 25 MG tab regular release Take 0.5 tablets by mouth 2 times daily. Mirabegron ER 25 MG tablet Take 1 tablet by mouth every evening. oxyCODONE-acetaminophen 5-325 MG per tablet Take 1 tablet by mouth every 6 hours as needed for up to 7 days. 28 tablet 0 PARoxetine 10 MG tablet Take 1 tablet by mouth daily. Total dose 50mg (Patient taking differently: Take 1 tablet by mouth daily every morning. Takes with 40mg for Total dose 50mg QAM) 30 tablet 5 PARoxetine 40 MG tablet Take 1 tablet by mouth daily. (Patient taking differently: Take 1 tablet by mouth daily every morning. Takes with 10mg for total dose of 50mg QAM) 30 tablet 5 PHENobarbital 16.2 MG tablet Take 1 tablet by mouth 2 times daily. (7 am and 1 pm with 32.4 mg tablets) 60 tablet 5 PHENobarbital 32.4 MG tablet 1 tab po in AM, 1 tab at 1pm, and two tabs at bedtime (7 am,1 pm, 7pm) 120 tablet 5 Phenytoin extended 100 MG capsule Take 3 capsules by mouth at bedtime. 90 capsule 11 Polyethylene glycol 17 g Pack packet Take 1 packet by mouth every evening. At 5PM quetiapine 200 MG tablet Take 1 tablet by mouth at bedtime. Total bedtime dose 250mg 30 tablet 5 QUEtiapine 25 MG tablet Take 1 tablet by mouth daily. Every afternoon at 1pm 30 tablet 5 QUEtiapine 50 MG tablet Take 1 tablet by mouth 2 times daily. In the morning and at bedtime. Total bedtime dose 250mg 60 tablet 5 senna 8.6 MG tablet Take 1 tablet by mouth 2 times daily. Tamsulosin HCl 0.4 MG capsule Take 1 capsule by mouth at bedtime. No facility-administered medications prior to visit. REVIEW OF SYSTEMS No question data found. Double Vision - Dizziness - Sleepiness - Blurred Vision - Unsteadiness - Shaky hands - Upset Stomach - Weight Gain - Headaches - Nervousness - Depression - Memory problems - Disturbed Sleep - Difficulty Concentrating - Rashes - Hair loss - Tiredness - Constipation - No data to display No data to display PHYSICAL EXAM Vitals: 10/18/23 1311 BP: 135/72 Pulse: 60 Temp: 98.9 degrees F (37.2 degrees C) TempSrc: Temporal Weight: 83.2 kg (183 lb 8 oz) Height: 1.727 m (5' 8) Body mass index is 27.9 kg/m . General: alert, cooperative, no distress, well-developed, appears stated age Mental status: alert; oriented to self; attention impaired - able to follow one step commands Speech/language: CRANIAL NERVES Coordination is intact to finger to nose testing. Visual souza intact to confrontation. PERRL,no nystagmus Facial movement intact and symmetrical bilaterally Hearing is grossly intact. Motor: Decreased bulk, increased BUE tone strength BUE 3/5 Resting tremor: none Coordination: Jqzhca-[id number] intact bilaterally. Gait: wheelchair dependent for mobility PERTINENT LABS, NEURODIAGNOSTIC STUDIES, NEUROIMAGING, AND NEUROPSYCHOLOGY TESTING LABS:No results found for: PHENYTOIN, PHENOBARBITA, VALPROICACTT, VALPROICACID, VALPROACIDT, VALPROICACFR, CARBAMAZTTL, CARBAMAZEPIN, CARBAMAZFREE, CARBAMAZEPFR, OXCARBAZEPIN, YLACO, ZONISAMIDE, PREGABALIN, LAMOTRIGINE, TOPIRAMSO, LEVETIRACETA Lab Results Component Value Date WBC 9.77 08/16/2023 HGB 14.6 08/16/2023 HCT 45.0 08/16/2023 MCV 95.7 (H) 08/16/2023 RBCDISTRIBU 13.4 08/16/2023 MPV 10.2 08/16/2023 PLATELET 237 08/16/2023 Lab Results Component Value Date SODIUM 138 08/16/2023 POTASSIUM 4.4 08/16/2023 CHLORIDE 101 08/16/2023 CO2 32 (H) 08/16/2023 BUN 21 08/16/2023 CREATSERUM 0.58 (L) 08/16/2023 GLUCOSE 97 08/06/2021 CALCIUM 9.1 08/06/2021 MAGNESIUM 2.2 08/06/2021 HGBA1C 5.3 08/16/2023 ESTAVGGLUCOS 105 08/16/2023 TP 6.8 11/17/2021 ALBUMIN 4.0 08/06/2021 BILITOTAL 0.2 08/06/2021 BILIDIRECT <0.1 08/06/2021 ALKPHOS 129 (H) 08/06/2021 ALT 38 08/06/2021 AST 24 08/06/2021 LIPASE 37 08/06/2021 Lab Results Component Value Date TSH 3.191 08/16/2023 B12 362 11/17/2021 Neurodiagnostics: ROUTINE EEG IMPRESSION 04/18/2023: CLINICAL IMPRESSION: This is an abnormal prolonged EEG due to the presence of moderate diffuse slowing, indicative of a moderate non- specific encephalopathy. Dictated By: Srini Bowen MD Neuroimaging: BRAIN MRI WO CONTRAST IMPRESSION 12/08/21: No acute intracranial abnormality or mass effect. Neuropsychology Testing: NONE ON FILE 09/20/2023 10/18/2023 NEURO VNS Date Placed 08/30/2023 08/30/2023 08/30/2023 Model Number 1000 1000 1000 Serial Number [id number] Output Current (mA) 0.5 mA 0 mA 0.75 mA 0.5 mA Signal Frequency (Hz) 20 Hz 20 Hz 20 Hz 20 Hz Pulse Width (microseconds) 250 microseconds 250 microseconds 250 microseconds 250 microseconds Signal ON Time (seconds) 30 seconds 30 seconds 30 seconds 30 seconds Signal OFF Time (minutes) 3 minutes 5 minutes 3 minutes 3 minutes Autostim Output Current (mA) 0 mA 0 mA 0.875 mA 0 mA Autostim Pulse Width (microseconds) 250 microseconds 250 microseconds 250 microseconds Autostim ON Time (seconds) 30 seconds 30 seconds 30 seconds Tachycardia Detection On Heartbeat Detection Sensitivity 3 Threshold for Autostim (%) 20 % Magnet Output Current (mA) 0.625 mA 0 mA 1 mA 0.625 mA Magnet Pulse Width (microseconds) 250 microseconds 250 microseconds 250 microseconds 250 microseconds Magnet ON Time (seconds) 60 seconds 60 seconds 60 seconds 60 seconds Output Status 0 0.5 Lead Impedence OK ok OK DC/DC Code 3537 3475 Elective Replacement Indicator 75-100 75-100 75-100 During this visit, I interrogated the device and performed a device diagnostics. There was no indication of system malfunctioning or near end of service. The communication, output status, and lead status were functioning appropriately. I explained signs and symptoms associated with device malfunctioning and counseled accordingly. The time of device assessment was less then thirty minutes. The total face to face time was in addition to VNS procedures. Billing: VNS: VNS Simple Reprogramming (1-3 changes) CPT code 42895 Assessment and Plan Assessment: Pancho is a pleasant 63 y.o. male with The encounter diagnosis was Generalized idiopathic epilepsy and epileptic syndromes, intractable, without status epilepticus.who presents to clinic for continued VNS reprogramming today which he tolerated well. We will continue to program device as tolerated and needed. Plan: 1. Focal epilepsy - continue ASM regimen the same: Vimpat 200 mg twice daily; Keppra 2000 mg twice daily; phenytoin ER 300 mg daily at bedtime; phenobarbital 48.6 mg in AM and 1 pm, 64.8 mg at bedtime - Mr. Mcpherson tolerated continued programming well today - no facial grimacing, coughing, behavioral changes or other indicators of discomfort during programming today. Discussed with staff things to look for when at home: coughing while eating/drinking. We discussed signs and symptoms associated with battery depletion including sporadic stimulation, neck/facial discomfort and a lack of sensation with magnet use and patient was instructed to call our clinic [facility] should these s/s occur. - We discussed factors that lower seizure threshold including non-adherence, extreme temperature changes, sleep deprivation, acute illness, decongestants, stress, fatigue and others. Missing doses of your seizure meds can cause breakthrough seizures. - Reviewed seizure action plan, they will use the following: diazepam (Valtoco) nasal spray - We reviewed the following safety issues: occupation/work related injuries including not to work in close proximity of machines with moving parts, not to work in high places, bathing/swimming, falls/injury prevention, and risk for skin hugo. We reviewed seizure first aid, seizure rescue medications and when to call . We discussed seizure first aid: Generally speaking, emergency staff should be notified for seizure activity lasting longer than 5 minutes. 2. Encounter for adjustment and management of neurostimulator - NE ELEC JEAN IMPLT SMPL CN NPGT PRGRMG Encouraged use of MyChart to send messages to provider as needed for questions and concerns or can call our clinic @ [phone]. He will return in 4 weeks or sooner if clinically indicated. Signed, Kaushal Avitia MSN, ASSEMBLY STOCK SUPERVISOR-OPERATIONS AND MAINTENANCE SPECIALIST [facility] Department of Neurology - Epilepsy Division [address] [place] [address] - 7th floor [place] [phone] Pager: [phone] Time to complete visit: I spent approximately 27 minutes reviewing the chart prior to the appointment, in face to face counseling with the patient, and with documentation after the visit. Note to patient: The Century Cures Act makes medical notes like these available to patients in the interest of transparency. However, be advised this is a medical document. It is intended as [id number]-brby communication. It is written in medical language and may contain abbreviations or verbiage that are unfamiliar. It may appear blunt or direct. Medical documents are intended to carry relevant information, facts as evident, and the clinical opinion of the practitioner. documented in this encounter [facility] 09-20-2023 History of Present illness Narrative Images from the original note were not included. [facility] Epilepsy [facility] Pancho Mcpherson was seen in the Comprehensive Ep[facility]psy Center at [facility] on 09/20/2023. He is here today for a follow-up accompanied by his caregiver . He was last seen on 04/05/[address] Carrie García MD. History of Present Illness INTERVAL HISTORY: Pancho is a 63 y.o. male who has a past medical history of Developmental delay, Essential hypertension, benign, Hyperlipidemia, Hypothyroidism, Intractable epilepsy, Mental retardation, Prostate enlargement, Recurrent UTI, 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who has experienced seizures since his last office visit. He has recently had a VNS implanted. Pertinent Seizure History Per Dr García 04/05/23: His seizures after having an event of high fever around age of 6 months. Thereafter his seizures have always remain difficult to control with anti seizure drug therapy. As caregiver, his seizures are characterized as loud vocalization followed by limb stiffening and unresponsiveness lasting for a minute followed by post ictal period of confusion and sleepiness. Denies any well defined prodrome or aura (visual, auditory or olfactory hallucinations, taste sensation, ning vu etc..) Seizure occurrence time: Denies any diurnal or nocturnal (either during sleep or upon awakening) pattern. Triggers: Denies any known triggers like stress, sleep deprivation, menses, flashing lights etc.. Frequency: 2-3 per month Longest duration of seizure freedom: Unknown History of status epilepticus : No documented history of SE or history for cluster of seizures. Seizure risk factors: Developmental delay: As per sister, Born on term thorough normal vaginal delivery. Achieved developmental milestones (language and motor milestones) on time but then started to regress cognitively and also required physical therapy . Denies any educational difficulties in school. History of febrile seizures: No. Brain infection (Meningitis or encephalitis) : No. Stroke : No. Head injury complicated with LOC : No. Alcohol withdrawal seizures : No. Use of cocaine or other recreational drugs: No. Family history of epilepsy: No. Anti-seizure drug (ASD) history: Current ASD: Pheno-Paola 32.4 mg -32.4 mg -64.8 mg , Dilantin 300 mg at bedtime , LEV 2000 mg BID , Lacosamide 200 mg BID Klonopin 1 mg at bedtime Past ASD : Rescue ASD : PERTINENT LABS, NEURODIAGNOSTIC STUDIES, NEUROIMAGING AND NEUROPSYCHOLOGICAL TESTING Prior evaluation: MRI brain : 2021 reported negative for any intracranial pathologies except for WM changes EEG : none in our system Nuclear imaging : PAST MEDICAL, FAMILY, SOCIAL HISTORY, ALLERGIES AND MEDICATIONS Past Medical History He has a past medical history of Developmental delay, Essential hypertension, benign, Hyperlipidemia, Hypothyroidism, Intractable epilepsy, Mental retardation, Prostate enlargement, Recurrent UTI, 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 He has no past medical history of Pacemaker. Past Family History family history includes Alcoholism in his brother and father; Lipid Disorder in his mother; Schizophrenia in his father. Past Social History He reports that he has never smoked. He has never used smokeless tobacco. He reports that he does not drink alcohol and does not use drugs. Past Surgical History has a past surgical history that includes reduction open orbital floor fx with implant or bone graft (Right, 06/05/2014); laparotomy exploratory (2019); leg surgery; eye surgery (Right); fusion anterior interbody cervical (N/A, 05/26/2021); graft spine surgery only allograft anterior add-on px (N/A, 05/26/2021); insertion spinal instrumentation anterior add-on px (ip only) (N/A, 05/26/2021); fusion anterior interbody each addl interspace add-on px (N/A, 05/26/2021); monitoring neurophysiology intraoperative add-on px (N/A, 05/26/2021); microsurgical techniques w/ operating microscope add-on px (N/A, 05/26/2021); discectomy anterior cervical (N/A, 05/26/2021); removal spinal instrumentation anterior (N/A, 05/26/2021); fusion anterior interbody cervical each addl interspacex (N/A, 05/26/2021); insertion neurostimulator electrode & generator cranial nerve (eg vagus) open (N/A, 08/30/2023); and guidance fluoroscopic needle placement add-on px (N/A, 08/30/2023). Allergies He has No Known Allergies. Medications Outpatient Medications Prior to Visit Medication Sig Dispense Refill cyanocobalamin 500 MCG tablet Take 2 tablets by mouth daily. (Patient taking differently: Take 2 tablets by mouth daily every morning.) Lacosamide (Vimpat) 200 MG tablet Take 1 tablet by mouth every 12 hours. 60 tablet 5 PARoxetine 10 MG tablet Take 1 tablet by mouth daily. Total dose 50mg (Patient taking differently: Take 1 tablet by mouth daily every morning. Takes with 40mg for Total dose 50mg QAM) 30 tablet 5 PARoxetine 40 MG tablet Take 1 tablet by mouth daily. (Patient taking differently: Take 1 tablet by mouth daily every morning. Takes with 10mg for total dose of 50mg QAM) 30 tablet 5 Acetaminophen 325 MG tablet Take 2 tablets by mouth 2 times daily. atorvastatin 10 MG tablet Take 1 tablet by mouth daily every morning. calcium carbonate (Nils-Gest Antacid) 500 MG Chew Tab tablet Chew 1 tablet 2 times daily. Cholecalciferol (Vitamin D-3) 25 MCG (1000 UT) capsule Take 2 capsules by mouth daily every morning. clonazePAM 1 MG tablet Take 1 tablet by mouth at bedtime. 30 tablet 2 faMOTIdine 20 MG tablet Take 1 tablet by mouth 2 times daily. Before meals folic acid 1 MG tablet Take 1 tablet by mouth daily every morning. levETIRAcetam 500 MG tablet Take 4 tablets by mouth 2 times daily. 240 tablet 5 Levothyroxine 100 MCG tablet Take 1 tablet by mouth every morning before breakfast. Takes with 137mcg for total dose of 227mcg QAM levothyroxine 137 MCG tablet Take 1 tablet by mouth daily every morning. Takes with 100mcg tab for total dose of 227mcg QAM Methenamine Hippurate 1 g tablet Take 1 tablet by mouth 2 times daily. metoprolol 25 MG tab regular release Take 0.5 tablets by mouth 2 times daily. Mirabegron ER 25 MG tablet Take 1 tablet by mouth every evening. oxyCODONE-acetaminophen 5-325 MG per tablet Take 1 tablet by mouth every 6 hours as needed for up to 7 days. 28 tablet 0 phenobarbital 100 MG tablet Take by mouth at bedtime. Takes total dose 364.8mg at 7pm (100mg x3 and 32.4mg x2) QHS PHENobarbital 32.4 MG tablet 1 tab po in AM, 1 tab at 1pm, and two tabs at bedtime (7 am, 1 pm, 7pm) (Patient taking differently: Take 1 tablet by mouth 2 times daily. Takes with 16.2mg tab for total dose of 48.6mg at 7am and 1pm) 120 tablet 5 Phenytoin extended 100 MG capsule Take 3 capsules by mouth at bedtime. 90 capsule 11 Polyethylene glycol 17 g Pack packet Take 1 packet by mouth every evening. At 5PM quetiapine 200 MG tablet Take 1 tablet by mouth at bedtime. Total bedtime dose 250mg 30 tablet 5 QUEtiapine 25 MG tablet Take 1 tablet by mouth daily. Every afternoon at 1pm 30 tablet 5 QUEtiapine 50 MG tablet Take 1 tablet by mouth 2 times daily. In the morning and at bedtime. Total bedtime dose 250mg 60 tablet 5 senna 8.6 MG tablet Take 1 tablet by mouth 2 times daily. Tamsulosin HCl 0.4 MG capsule Take 1 capsule by mouth at bedtime. No facility-administered medications prior to visit. REVIEW OF SYSTEMS No question data found. Double Vision - Dizziness - Sleepiness - Blurred Vision - Unsteadiness - Shaky hands - Upset Stomach - Weight Gain - Headaches - Nervousness - Depression - Memory problems - Disturbed Sleep - Difficulty Concentrating - Rashes - Hair loss - Tiredness - Constipation - No data to display No data to display PHYSICAL EXAM Vitals: 09/20/23 1302 BP: 129/74 Pulse: 70 Temp: 99.8 degrees F (37.7 degrees C) TempSrc: Temporal Weight: 83 kg (183 lb) Height: 1.727 m (5' 8) Body mass index is 27.83 kg/m . General: alert, cooperative, no distress, well-developed, appears stated age Mental status: alert; oriented to self; attention impaired - able to follow one step commands Speech/language: CRANIAL NERVES Coordination is intact to finger to nose testing. Visual souza intact to confrontation. PERRL,no nystagmus Facial movement intact and symmetrical bilaterally Hearing is grossly intact. Motor: Decreased bulk, increased BUE tone strength BUE 3/5 Resting tremor: none Coordination: [id number]-[id number]-myfv intact bilaterally. Gait: wheelchair dependent for mobility PERTINENT LABS, NEURODIAGNOSTIC STUDIES, NEUROIMAGING, AND NEUROPSYCHOLOGY TESTING LABS:No results found for: PHENYTOIN, PHENOBARBITA, VALPROICACTT, VALPROICACID, VALPROACIDT, VALPROICACFR, CARBAMAZTTL, CARBAMAZEPIN, CARBAMAZFREE, CARBAMAZEPFR, OXCARBAZEPIN, YLACO, ZONISAMIDE, PREGABALIN, LAMOTRIGINE, TOPIRAMSO, LEVETIRACETA Lab Results Component Value Date WBC 9.77 08/16/2023 HGB 14.6 08/16/2023 HCT 45.0 08/16/2023 MCV 95.7 (H) 08/16/2023 RBCDISTRIBU 13.4 08/16/2023 MPV 10.2 08/16/2023 PLATELET 237 08/16/2023 Lab Results Component Value Date SODIUM 138 08/16/2023 POTASSIUM 4.4 08/16/2023 CHLORIDE 101 08/16/2023 CO2 32 (H) 08/16/2023 BUN 21 08/16/2023 CREATSERUM 0.58 (L) 08/16/2023 GLUCOSE 97 08/06/2021 CALCIUM 9.1 08/06/2021 MAGNESIUM 2.2 08/06/2021 HGBA1C 5.3 08/16/2023 ESTAVGGLUCOS 105 08/16/2023 TP 6.8 11/17/2021 ALBUMIN 4.0 08/06/2021 BILITOTAL 0.2 08/06/2021 BILIDIRECT <0.1 08/06/2021 ALKPHOS 129 (H) 08/06/2021 ALT 38 08/06/2021 AST 24 08/06/2021 LIPASE 37 08/06/2021 Lab Results Component Value Date TSH 3.191 08/16/2023 B12 362 11/17/2021 Neurodiagnostics: ROUTINE EEG IMPRESSION 04/18/2023: CLINICAL IMPRESSION: This is an abnormal prolonged EEG due to the presence of moderate diffuse slowing, indicative of a moderate non- specific encephalopathy. Dictated By: Srini Bowen MD Neuroimaging: BRAIN MRI WO CONTRAST IMPRESSION 12/08/21: No acute intracranial abnormality or mass effect. Neuropsychology Testing: NONE ON FILE 09/20/2023 NEURO VNS Date Placed 08/30/2023 08/30/2023 Model Number 1000 1000 Serial Number [id number] Output Current (mA) 0.5 mA 0 mA Signal Frequency (Hz) 20 Hz 20 Hz Pulse Width (microseconds) 250 microseconds 250 microseconds Signal ON Time (seconds) 30 seconds 30 seconds Signal OFF Time (minutes) 3 minutes 5 minutes Autostim Output Current (mA) 0 mA 0 mA Autostim Pulse Width (microseconds) 250 microseconds Autostim ON Time (seconds) 30 seconds Magnet Output Current (mA) 0.625 mA 0 mA Magnet Pulse Width (microseconds) 250 microseconds 250 microseconds Magnet ON Time (seconds) 60 seconds 60 seconds Output Status 0 Lead Impedence OK ok DC/DC Code 3537 Elective Replacement Indicator 75-100 75-100 During this visit, I interrogated the device and performed a device diagnostics. There was no indication of system malfunctioning or near end of service. The communication, output status, and lead status were functioning appropriately. I explained signs and symptoms associated with device malfunctioning and counseled accordingly. The time of device assessment was less then thirty minutes. The total face to face time was in addition to VNS procedures. Billing: VNS: VNS Simple Reprogramming (1-3 changes) CPT code 62858 Assessment and Plan Assessment: Pancho is a pleasant 63 y.o. male with The primary encounter diagnosis was Focal epilepsy. A diagnosis of Encounter for adjustment and management of neurostimulator was also pertinent to this visit.who presents to clinic for initial VNS programming today which he tolerated well. We will continue to program device as tolerated and needed. Plan: 1. Focal epilepsy - continue ASM regimen the same: Vimpat 200 mg twice daily; Keppra 2000 mg twice daily; phenytoin ER 300 mg daily at bedtime; phenobarbital 48.6 mg in AM and 1 pm, 64.8 mg at bedtime - Mr. Mcpherson tolerated initial programming well - no facial grimacing, coughing, behavioral changes or other indicators of discomfort during programming today. Discussed with staff things to look for when at home: coughing while eating/drinking. We discussed signs and symptoms associated with battery depletion including sporadic stimulation, neck/facial discomfort and a lack of sensation with magnet use and patient was instructed to call our clinic [facility] should these s/s occur. - diazePAM, 20 MG Dose, (Valtoco 20 MG Dose) 2 x 10 MG/0.1ML Liquid Therapy Pack; Give 10 mg in ONE nostril as needed for convulsive seizure lasting 5 minutes or longer. MAX 2 DOSES IN 7 DAYS. Dispense: 4 Each; Refill: 1 - Lacosamide (Vimpat) 200 MG tablet; Take 1 tablet by mouth every 12 hours. Dispense: 60 tablet; Refill: 5 - levETIRAcetam 500 MG tablet; Take 4 tablets by mouth 2 times daily. Dispense: 240 tablet; Refill: 5 - Phenytoin extended 100 MG capsule; Take 3 capsules by mouth at bedtime. Dispense: 90 capsule; Refill: 11 - PHENobarbital 32.4 MG tablet; 1 tab po in AM, 1 tab at 1pm, and two tabs at bedtime (7 am,1 pm, 7pm) Dispense: 120 tablet; Refill: 5 - PHENobarbital 16.2 MG tablet; Take 1 tablet by mouth 2 times daily. (7 am and 1 pm with 32.4 mg tablets) Dispense: 60 tablet; Refill: 5 - NE ELEC JEAN IMPLT SMPL CN NPGT PRGRMG 2. Encounter for adjustment and management of neurostimulator - NE ELEC JEAN IMPLT SMPL CN NPGT PRGRMG - We discussed factors that lower seizure threshold including non-adherence, extreme temperature changes, sleep deprivation, acute illness, decongestants, stress, fatigue and others. Missing doses of your seizure meds can cause breakthrough seizures. - Reviewed seizure action plan, they will use the following: diazepam (Valtoco) nasal spray - We reviewed the following safety issues: occupation/work related injuries including not to work in close proximity of machines with moving parts, not to work in high places, bathing/swimming, falls/injury prevention, and risk for skin hugo. We reviewed seizure first aid, seizure rescue medications and when to call . We discussed seizure first aid: Generally speaking, emergency staff should be notified for seizure activity lasting longer than 5 minutes. Encouraged use of [employer] Experience to send messages to provider as needed for questions and concerns or can call our clinic @ [phone]. He will return in 4 weeks or sooner if clinically indicated. Signed, Kaushal Avitia MSN, ASSEMBLY STOCK SUPERVISOR-OPERATIONS AND MAINTENANCE SPECIALIST [facility] Department of Neurology - Epilepsy Division [address] [place] [address] - 7th floor [place] [phone] Pager: [phone] Time to complete visit: I spent approximately 32 minutes reviewing the chart prior to the appointment, in face to face counseling with the patient, and with documentation after the visit. Note to patient: The Century Cures Act makes medical notes like these available to patients in the interest of transparency. However, be advised this is a medical document. It is intended as nmpt-tr-crew communication. It is written in medical language and may contain abbreviations or verbiage that are unfamiliar. It may appear blunt or direct. Medical documents are intended to carry relevant information, facts as evident, and the clinical opinion of the practitioner. documented in this encounter [facility] 09-20-2023 Instructions DAVID Rodriguez - 09/20/2023 1:00 PM EST Images from the original note were not included. Swipe magnet every 60 seconds up to 5 times for seizures and then use valtoco nasal spray for seizure rescue Seizure First Aid Training Can Be Found Here (it's free!): [email or web address]://learn.epilepsy.com/courses [email or web address]-fqwmq-wfq-[email or web address]-ondemand documented in this encounter [facility] 08-30-2023 Nurse Note [address] Michelle Mcpherson patient caregiver/family states did not talk to post surgery, could you call [facility] [phone],?'s...lease call Praveena [phone] thank you Praveena Crystal RN [phone] RN reviews home care with patient, sister and 2 caregivers at bedside, family has over and hour+ drive home, opts to leave, RN states Dr has been paged and RN provides [facility] #, medtronic device box given to caregivers, device to be turned on at later date per PACU report and caregivers understanding, IV removed, patient dressing. Praveena Crystal RN [phone] RN walks patient and caregiver to front to meet other caregiver for patient to return home. Praveena Crystal RN [facility] 08-30-2023 Miscellaneous Notes [address] Michelle Mcpherson patient caregiver/family states did not talk to post surgery, could you call [facility] [phone],?'s...lease call Praveena [phone] thank you Praveena Crystal RN 5809 RN reviews home care with patient, sister and 2 caregivers at bedside, family has over and hour+ drive home, opts to leave, RN states Dr has been paged and RN provides [facility] #, medtronic device box given to caregivers, device to be turned on at later date per PACU report and caregivers understanding, IV removed, patient dressing. Praveena Crystal RN [phone] RN walks patient and caregiver to front to meet other caregiver for patient to return home. Praveena Crystal RN [facility] OPERATIVE REPORT PATIENT NAME: Pancho Mcpherson PROCEDURE DATE: 08/30/23 PREOPERATIVE DIAGNOSIS: Drug-resistant epilepsy POSTOPERATIVE DIAGNOSIS: Same. OPERATION: Left vagus nerve stimulator placement (LivaNova Sentiva) SURGEON: Ulises Li MD. ASSISTANTS: Kev Martinez MD. ANESTHESIA: General. INDICATIONS: The patient is 63 years old with history of drug-resistant epilepsy, who now presents for left vagus nerve stimulator implantation. The patient had been evaluated by both their epileptologist and neurosurgery teams and felt to be a good candidate for vagus nerve stimulation (VNS) therapy for potentially reducing seizure frequency. The risks, benefits, and alternatives were discussed with the patient, and the patient agreed to proceed. Consent was signed. DESCRIPTION OF PROCEDURE: The patient was brought into the operating room after being previously identified in the preoperative area. The patient was then moved to the operating room table, and standard lines and monitors were placed by the anesthesia team. After general anesthesia was induced, the patient was positioned supine, with the neck in neutral position. The left neck and upper chest were clipped, prepped and draped. A time-out was performed to verify proper patient, procedure, and laterality. A paramedian transverse incision in a skin crease crossing over the sternocleidomastoid was opened sharply over the neck. Supra and infra platysmal dissection was performed using bipolar and Metzenbaum scissors as well as bluntly, and the platysma was divided after being coagulated with the bipolar. The sternocleidomastoid was identified and then dissection was performed following the medial border to the carotid sheath. The carotid artery was palpated, and the internal jugular vein was identified. Dissection was then performed medial to the jugular, which allowed for identification of the vagus nerve. The vagus nerve was then dissected circumferentially in order to isolate a segment of approximately 3 cm in length. A vessel loop was placed around the nerve. The vagus nerve stimulator electrodes and anchoring coil were then carefully wrapped around the nerve, starting with the most distal anchoring coil. Satisfied with our exposure of the nerve and placement of the coils, attention was then turned to the pulse generator pocket. An infraclavicular transverse incision was made sharply and further dissection was performed with monopolar cautery in the subcutaneous tissues. Working above the fascia, a pocket of sufficient size to accommodate the pulse generator was created. A tunneler was used to pass a plastic straw from the cervical to the pocket incision, and the electrode was passed through the tunnel. Three of the plastic retention tabs were affixed distally along the lead and then sutured into place with silk stitches, which created a strain relief loop. The distal tip of the lead was inserted into the pulse generator. The wireless server programmer was brought into the field, and the server programmer verified that electrode impedances were within tolerance, and that the device was accurately detecting the patient's heart rate. The pulse generator was inserted into the pocket and secured with a silk suture. Excess lead was coiled beneath the pulse generator. Hemostasis at both sites was verified. Both souza were irrigated copiously, and vancomycin powder was instilled into the incisions. Both incisions were closed in layers with Vicryl, culminating in subcuticular Monocryl in the dermal layer and adhesive glue on the skin. The drapes were removed, and the patient was awakened from anesthesia. The patient was then taken to the recovery area. ESTIMATED BLOOD LOSS: 20cc. COMPLICATIONS: None immediate. IMPLANTS: LivaNova PerenniaFlex lead, LivaNova Sentiva 1000 pulse generator. ATTESTATION: Dr. Li, the attending surgeon, was present and scrubbed for the entire procedure. Pancho Mcpherson ([id number]) PRE OPERATIVE DIAGNOSIS Seizures [R56.9] POST OPERATIVE DIAGNOSIS Post-Op Diagnosis Codes: * Seizures [R56.9] PROCEDURE PERFORMED Procedure(s) (LRB): INSERTION NEUROSTIMULATOR ELECTRODE & GENERATOR CRANIAL NERVE (EG VAGUS) INCISIONAL (N/A) GUIDANCE FLUOROSCOPIC NEEDLE PLACEMENT (N/A) PRIMARY CLOSURE Yes INTRAOPERATIVE FINDINGS L VNS and IPG placement SURGEON Surgeon(s) and Role: * Ulises Li MD - Primary ANESTHESIOLOGIST Anesthesiologist: Delia Hoover MD SUPERANNUATION CLERK: Mal Lane APRN-SUPERANNUATION CLERK SURGICAL STAFF [employer] Supervisor: Yonny De La Vega RN; Audelia Delcid RN Relief [employer]s Supervisor: Nai Ledezma RN Relief Scrub: Susan Caba Resident Assisting: Kev Martinez MD COMPLICATIONS None ESTIMATED BLOOD LOSS 15 ml SPECIMENS * No specimens in log * Kev Martinez MD August 30, 2023 3:42 PM documented in this encounter [facility] 08-30-2023 Surgery Postoperative evaluation and management note [facility] OPERATIVE REPORT PATIENT NAME: Pancho Mcpherson PROCEDURE DATE: 08/30/23 PREOPERATIVE DIAGNOSIS: Drug-resistant epilepsy POSTOPERATIVE DIAGNOSIS: Same. OPERATION: Left vagus nerve stimulator placement (LivaNova Sentiva) SURGEON: Ulises Li MD. ASSISTANTS: Kev Martinez MD. ANESTHESIA: General. INDICATIONS: The patient is 63 years old with history of drug-resistant epilepsy, who now presents for left vagus nerve stimulator implantation. The patient had been evaluated by both their epileptologist and neurosurgery teams and felt to be a good candidate for vagus nerve stimulation (VNS) therapy for potentially reducing seizure frequency. The risks, benefits, and alternatives were discussed with the patient, and the patient agreed to proceed. Consent was signed. DESCRIPTION OF PROCEDURE: The patient was brought into the operating room after being previously identified in the preoperative area. The patient was then moved to the operating room table, and standard lines and monitors were placed by the anesthesia team. After general anesthesia was induced, the patient was positioned supine, with the neck in neutral position. The left neck and upper chest were clipped, prepped and draped. A time-out was performed to verify proper patient, procedure, and laterality. A paramedian transverse incision in a skin crease crossing over the sternocleidomastoid was opened sharply over the neck. Supra and infra platysmal dissection was performed using bipolar and Metzenbaum scissors as well as bluntly, and the platysma was divided after being coagulated with the bipolar. The sternocleidomastoid was identified and then dissection was performed following the medial border to the carotid sheath. The carotid artery was palpated, and the internal jugular vein was identified. Dissection was then performed medial to the jugular, which allowed for identification of the vagus nerve. The vagus nerve was then dissected circumferentially in order to isolate a segment of approximately 3 cm in length. A vessel loop was placed around the nerve. The vagus nerve stimulator electrodes and anchoring coil were then carefully wrapped around the nerve, starting with the most distal anchoring coil. Satisfied with our exposure of the nerve and placement of the coils, attention was then turned to the pulse generator pocket. An infraclavicular transverse incision was made sharply and further dissection was performed with monopolar cautery in the subcutaneous tissues. Working above the fascia, a pocket of sufficient size to accommodate the pulse generator was created. A tunneler was used to pass a plastic straw from the cervical to the pocket incision, and the electrode was passed through the tunnel. Three of the plastic retention tabs were affixed distally along the lead and then sutured into place with silk stitches, which created a strain relief loop. The distal tip of the lead was inserted into the pulse generator. The wireless server programmer was brought into the field, and the server programmer verified that electrode impedances were within tolerance, and that the device was accurately detecting the patient's heart rate. The pulse generator was inserted into the pocket and secured with a silk suture. Excess lead was coiled beneath the pulse generator. Hemostasis at both sites was verified. Both souza were irrigated copiously, and vancomycin powder was instilled into the incisions. Both incisions were closed in layers with Vicryl, culminating in subcuticular Monocryl in the dermal layer and adhesive glue on the skin. The drapes were removed, and the patient was awakened from anesthesia. The patient was then taken to the recovery area. ESTIMATED BLOOD LOSS: 20cc. COMPLICATIONS: None immediate. IMPLANTS: LivaNova PerenniaFlex lead, LivaNova Sentiva 1000 pulse generator. ATTESTATION: Dr. Li, the attending surgeon, was present and scrubbed for the entire procedure. [facility] Work Phone: 08-30-2023 Surgery Postoperative evaluation and management note Pancho Mcpherson ([id number]) PRE OPERATIVE DIAGNOSIS Seizures [R56.9] POST OPERATIVE DIAGNOSIS Post-Op Diagnosis Codes: * Seizures [R56.9] PROCEDURE PERFORMED Procedure(s) (LRB): INSERTION NEUROSTIMULATOR ELECTRODE & GENERATOR CRANIAL NERVE (EG VAGUS) INCISIONAL (N/A) GUIDANCE FLUOROSCOPIC NEEDLE PLACEMENT (N/A) PRIMARY CLOSURE Yes INTRAOPERATIVE FINDINGS L VNS and IPG placement SURGEON Surgeon(s) and Role: * Ulises Li MD - Primary ANESTHESIOLOGIST Anesthesiologist: Delia Hoover MD SUPERANNUATION CLERK: Mal Lane APRN-SUPERANNUATION CLERK SURGICAL STAFF [employer] Supervisor: Yonny De La Vega RN; Audelia Delcid RN Relief [employer]ber [employer]s Supervisor: Nai Ledezma RN Relief Scrub: Susan Caba Resident Assisting: Kev Martinez MD COMPLICATIONS None ESTIMATED BLOOD LOSS 15 ml SPECIMENS * No specimens in log * Kev Martinez MD August 30, 2023 3:42 PM [facility] 08-30-2023 Nurse Surgical operation note Report given to GEAR FINISHER. Patient leaves OR extubated on supplemental O2 via mask. [facility] 08-30-2023 Nurse Note Report given to GEAR FINISHER. Patient leaves OR extubated on supplemental O2 via mask. documented in this encounter [facility] 08-30-2023 Hospital Discharge instructions Kev Martinez MD - 08/30/2023 12:20 PM EST APPOINTMENTS & IMPORTANT INFORMATION READ ALL INFORMATION After you are home, please follow-up with your primary specialist for ongoing medication management and medication refills. Your surgeon is unable to manage your pain medications on a radiographer cardiac catheterization basis. Beginning April 13, 2017 per [place] Law and the [place] Board of Pharmacy no more than 7 days of opioids can be prescribed for adults for acute or post surgical pain. Here are some general guidelines to assist you in your recovery at home. Please do not hesitate to call us with any questions or concerns you may have. Incision Care: If your incisions are closed with a line of bandaids (steri-strips) or a glue (dermabond) this will fall off or wear off on their own. Do not remove them, peel or pick at them. If it is closed with sutures or char you will have them removed 10-14 days after your procedure. The first day after your surgery you may clean your body with a clean damp washcloth but avoid the surgical areas. If you have a dressing covering your incision, this can be removed the morning after your surgery You may shower on the day after surgery. Avoid direct pressure of water on the surgical areas. Prolonged exposure to water may cause tissue breakdown and delay healing Avoid picking or scratching the incision at all times If there is a scab present, do not remove it. This means there is still healing taking place and it is important to continue allowing this to heal Avoid use of antibiotic ointment, alcohol, or hydrogen peroxide over the area of the incisions Avoid swimming or completely submerging the surgical areas in water until incisions are completely healed It is normal for your incision to be slightly swollen and pink. Your incisions should be inspected daily by another person who can get an overall view. Wound inspection, if possible, should begin while you are in the hospital so that significant changes will be more apparent after you go home The overall goal is to keep the incision clean and dry to prevent infection DERMABOND: (this glue is occasionally used on the battery sites) Your incision(s) may have been closed with a surgical glue called Dermabond. This is a clear transparent skin closure like glue. It will remain in place for 10-14 days and wear off by itself. Keep the incision Clean and Dry. Leave the incision open to air. No further care is needed unless you have a problem. Activity: DO NOT lift over 5 pounds for 2 weeks DO NOT engage in light activities for 2 weeks. Examples of this include light housework and sexual activity DO NOT engage in heavy activities for 4 weeks. Examples of this include jogging, swimming, or physical education classes The overall goal is to avoid any activity that will prevent your surgical wounds from healing properly Notify the [facility] ([phone]) if: You are experiencing severe persistent headaches You have bleeding or drainage from your incision If you have an opening of an incision If there is redness, unusual swelling, or you experience a fever greater than 101 degrees BLOOD THINNER INSTRUCTIONS: You should not restart any blood thinning medications Aspirin, (Aleve (naproxen), Motrin/Advil (ibuprofen), CO Enzyme Q10, glucosamine, multivitamins, etc) until 4 days after your procedure. You may resume taking aspirin 4 days after your surgery You may resume taking Plavix or other type of blood thinners 4 days after your surgery. You may resume taking warfarin 4 days after your surgery. Please contact the doctor who normally manages your warfarin for instructions on resuming the medication and checking your INR. SEIZURE PRECAUTIONS: During a seizure, a person may injure himself or herself. Seizure precautions are guidelines that a person can follow in order to minimize injury during a seizure. For any activity, it is important to ask, What would happen if I had a seizure while doing this? Seizure First Aid: Do not panic. Most seizures stop on their own after one to two minutes. For seizures lasting less than 5 minutes: If the person is falling, help him or her to the ground. Protect the person from nearby hazards. Loosen any tight or restrictive clothing. Turn the person on his/her side in order to keep the air passages open. Look for medical identification. Reassure the person as he/she awakens from the seizure. Do not place anything in the person's mouth. A person who has a seizure cannot swallow his/her tongue. However, objects which are placed in the mouth can cause injury or choking. Do not attempt to give the patient medications, unless he/she requests it. Do not restrain the patient. For seizures lasting more than 5 minutes or repeat seizures or if the person does not wake up after the movements have stopped: CALL 911 Bathroom Safety: Avoid tub baths Use nonskid strips in your shower or tub. Never use electrical equipment near water. This prevents accidental electrocution. Consider changing glass in shower doors to shatterproof glass. Kitchen Safety: If possible, cook when someone else is nearby. Use the back burners of the stove to prevent accidental hugo. Use shatterproof containers as much as possible. For instance, sauces can be transferred from glass bottles to plastic containers for use. Limit time that is required using knives or other sharp objects. If possible, buy foods that are already cut, or ask someone to help in meal preparation. General Safety at Home: Do not smoke or light fires in the fireplace unless someone else is present. Do not use space heaters that can be accidentally overturned. When alone, avoid using step stools or ladders, and do not clean rooftop gutters. Purchase power tools and motorized lawn equipment which have a safety switch that will stop the machine if you release the handle (a ' man's' switch). Driving and Transportation: Do not drive until you are seizure-free x 6 months If you ride a bicycle, wear a helmet and any other necessary protective gear. When taking public transportation like the bus or subway, stay clear of the platform edge. Outdoor and Sports Safety: Never swim alone, and tell friends what to do if you have a seizure while swimming. Wear appropriate protective equipment. Safety Issues for Parents: Feed, nurse, dress, and change your while sitting on the floor, in a well-protected area. Childproof your house as much as possible. If you are home alone with your child, consider using a safe play area or playpen. Use child safety dolan to prevent a child from falling down stairs or to prevent your child from wandering in the event that you have a seizure. As your child grows, explain what seizures are in terms that he or she can understand. Some people perform 'seizure drills.' Many people teach their children how to call 911 in an emergency Click on [email or web address] for more information Seizures are a brief electrical disturbance occurs in your brain. There are different kinds of seizures, and each patient may have one or many types of seizures. Here are some guidelines for you and your family. SEIZURE CARE Activity in the brain is controlled by electrical impulses. If these electrical signals are not sent in the right order or at the proper rate, seizures can occur. Some things that can cause seizures are a high fever, a head injury, or poisoning. WHAT HAPPENS DURING A SEIZURE Seizures can cause sudden, uncontrolled movements. The movements may involve the whole body or only certain parts, such as the face, arms, or legs. The eyes may move rapidly from side to side, roll to one side, or roll back in the head. It may be hard to see the colored part of the eye. During a seizure, you may have irregular breathing. His or her lips may turn blue. You might urinate or have a bowel movement during the seizure. When the seizure is over, you may want to go to sleep. WHAT NOT TO DO- for bystanders Do not try to open mouth or place anything between the teeth. This could injure his gums or break his teeth. Do not try to stop or restrain movements. Do not put your fingers into the mouth. WHAT TO WATCH FOR There are many different kinds of seizures. The doctor must know which kind you have before the right medicine can be prescribed. It may be hard to tell certain kinds of seizures from others. The doctor may not see the seizure, so he or she must rely on your description and results of medical tests to decide which medicine to use. The better you can describe the seizure, the easier (and perhaps sooner) the doctor can start bringing the seizures under control. It is possible for you to have more than one type of seizure. If you recognize more than one kind, be sure to describe each one separately on the Seizure Record These questions will help you know what to watch for: What were doing when the seizure started? What was the exact time of day? What happened just before the seizure? How long did the seizure last? Are there any other things connected with the seizure you think the doctor should know? KEEPING A SEIZURE RECORD This record will be especially helpful during the first several visits to the doctor when a treatment plan is being developed. MEDICINES If prescriptions are to be refilled, it is very important to do this at least 2 days before the last dose of medicine is given. Do not give extra medicine or change the medicine dosage without checking with your doctor. If you miss a dose of medicine, give it as soon as you remember, but never give two doses at the same time. Even if you are not having seizures, you should continue to take the medicine until the doctor says he no longer needs it. It's important to learn the names and dosages of your medicine(s). Shake liquid medicines before giving the dose. If You Have a Seizure Ask friends and family members to learn CPR. Also, tell them to do the following if you have a seizure: Clear the area to prevent injury. Position you on a flat, carpeted surface, if possible. Don t try to restrain you. Don t put anything in your mouth. Turn you onto your side if you start to vomit. Keep track of the date and time the seizure started, how long it lasted, whether or not you lost consciousness, a description of your body movements, what provoked the seizure (if known), and any injuries you suffered. Stay with you until you regain consciousness. Activities Enjoy your normal activities. Most people with epilepsy lead normal lives. Avoid hazardous activities, such as mountain climbing or scuba diving. A seizure under these conditions could lead to a fatal accident. Do not swim alone or participate in other similar activities without others nearby. Ask your doctor about any restrictions on driving or other activities. Check with your state department of public safety to learn whether there are any driving limitations based on your condition. Please maintain a regular sleep cycle and get at least 8 hours of sleep per night. Limit your caffeine and alcohol intake and abstain from illicit substances, as these can all lower the seizure threshold. Other Home Care Take your medication exactly as directed. Skipping doses can affect the way your body handles the medication, which could cause you to have a seizure. Don t drink alcohol or use any medication without talking with your doctor first. Wear a medical alert pendant or bracelet that alerts others to your condition. Join a local support group. Ask your doctor for names and phone numbers. Follow-Up Make a follow-up appointment as directed by our staff. When to Seek Medical Attention Tell your family members or friends to call 911 right away if you have: Loss of consciousness. Shortness of breath or stopped breathing. Seizure that lasts more than 2-3 minutes. Seizure that is severe (choking, difficulty breathing, bluish color skin) Multiple seizures in a row. Otherwise, have them call your doctor immediately if you have: Seizures that are getting longer and worse. Seizures that are different from those you ve had in the past. Seizures strong enough to cause injury. Skin rash. Fever of 101.4 F or higher. Evening and Weekend Contacts If you have questions or concerns during evening, weekend, or holiday hours, please call: -[facility] power hammer operator at [phone]. -[facility] power hammer operator at [phone] Ask the power hammer operator to page the on-call doctor for Neurology, the service that was responsible for your care while you were in the hospital. If you having an emergency, call 911. Please contact the Neurology Department with questions/concerns [phone]. The following attachments cannot be sent through Care Everywhere.[facility] ([facility]) ([place])documented in this encounter [facility] 08-30-2023 History and physical note Neurosurgery Preoperative History and Physical Date of surgery: 08/30/2023 HPI: Pancho Mcpherson is a 63 y.o. male with: Seizures [R56.9] here for Proc Description: INSERTION NEUROSTIMULATOR ELECTRODE & GENERATOR CRANIAL NERVE (EG VAGUS) INCISIONAL, GUIDANCE FLUOROSCOPIC NEEDLE PLACEMENT; IMPLANTATION OF LEFT VAGAL NERVE STIMULATOR AND LEFT CHEST INTERNAL PULSE GENERATOR, IMPLANTATION OF LEFT VAGAL NERVE STIMULATOR AND LEFT CHEST INTERNAL PULSE GENERATOR with Ulises Li MD. Vitals: BP 137/80 (BP Location: Left arm, BP Position: Sitting) Pulse 58 Temp 98 F (36.7 C) (Infrared) Resp 18 Ht 1.727 m (5' 8) Wt 83.2 kg (183 lb 8 oz) SpO2 96% BMI 27.90 kg/m Smoking Status Never Physical Exam: NAD Aox2, limited speech R pupil 3mm; L pupil 2 mm EOMI FS TM FCx4 5/5 BUE except bilateral SA 4+/5 5/5 BLE except 4/5 R HF and 4+/5 KE SILT No anticoagulants or antiplatelet medications A/P: Pancho Mcpherson is a 63 y.o. male here for Proc Description: INSERTION NEUROSTIMULATOR ELECTRODE & GENERATOR CRANIAL NERVE (EG VAGUS) INCISIONAL, GUIDANCE FLUOROSCOPIC NEEDLE PLACEMENT; IMPLANTATION OF LEFT VAGAL NERVE STIMULATOR AND LEFT CHEST INTERNAL PULSE GENERATOR, IMPLANTATION OF LEFT VAGAL NERVE STIMULATOR AND LEFT CHEST INTERNAL PULSE GENERATOR. - to OR Staff Addendum: I re-discussed the surgical plan with the patient and sister and answered the family's and staff's questions. Consent had been signed after discussion of risks, benefits, and alternatives. [facility] Work Phone: 08-30-2023 History and physical note Neurosurgery Preoperative History and Physical Date of surgery: 08/30/2023 HPI: Pancho Mcpherson is a 63 y.o. male with: Seizures [R56.9] here for Proc Description: INSERTION NEUROSTIMULATOR ELECTRODE & GENERATOR CRANIAL NERVE (EG VAGUS) INCISIONAL, GUIDANCE FLUOROSCOPIC NEEDLE PLACEMENT; IMPLANTATION OF LEFT VAGAL NERVE STIMULATOR AND LEFT CHEST INTERNAL PULSE GENERATOR, IMPLANTATION OF LEFT VAGAL NERVE STIMULATOR AND LEFT CHEST INTERNAL PULSE GENERATOR with Ulises Li MD. Vitals: BP 137/80 (BP Location: Left arm, BP Position: Sitting) Pulse 58 Temp 98 F (36.7 C) (Infrared) Resp 18 Ht 1.727 m (5' 8) Wt 83.2 kg (183 lb 8 oz) SpO2 96% BMI 27.90 kg/m Smoking Status Never Physical Exam: NAD Aox2, limited speech R pupil 3mm; L pupil 2 mm EOMI FS TM FCx4 5/5 BUE except bilateral SA 4+/5 5/5 BLE except 4/5 R HF and 4+/5 KE SILT No anticoagulants or antiplatelet medications A/P: Pancho Mcpherson is a 63 y.o. male here for Proc Description: INSERTION NEUROSTIMULATOR ELECTRODE & GENERATOR CRANIAL NERVE (EG VAGUS) INCISIONAL, GUIDANCE FLUOROSCOPIC NEEDLE PLACEMENT; IMPLANTATION OF LEFT VAGAL NERVE STIMULATOR AND LEFT CHEST INTERNAL PULSE GENERATOR, IMPLANTATION OF LEFT VAGAL NERVE STIMULATOR AND LEFT CHEST INTERNAL PULSE GENERATOR. - to OR Staff Addendum: I re-discussed the surgical plan with the patient and sister and answered the family's and staff's questions. Consent had been signed after discussion of risks, benefits, and alternatives. documented in this encounter [facility] 08-16-2023 History and physical note History of Present Illness Mr. Mcpherosn is a 63 y.o. male is being evaluated in [facility] due to his medical condition(s) Developmental delay Hypertension Hyperlipidemia Hypothyroidism Schizophrenia GERD Intractable epilepsy JAIME on CPAP- tries to use, not always as much as he should History of recurrent UTI - on [facility]henamine [facility] with [facility] other residents, [facility] or [facility] [phone] which increases his risk for perioperative complications. Name: Pancho Mcpherson Date of Surgery: 08/30/2023 Surgeon: Guillermo Pre-Op Diagnosis: seizure disorder Planned Procedure: IMPLANTATION OF LEFT VAGAL NERVE STIMULATOR AND LEFT CHEST INTERNAL PULSE GENERATOR Do you take Aspirin? no Does the patient have a central line - no Smoking Status Never ANESTHESIA/AIRWAY Anesthesia alerts -developmental delay, Akhil lift needed. JAIME on CPAP Personal history of problems related to anesthesia (ex.Malignant Hyperthermia): no Family History of problems related to anesthesia (ex.Malignant Hyperthermia: no Pacer/AICD/DBS: no Glaucoma: no Beta Arnulfo: no Diabetic Mellitus: no JAIME: yes Neck circumference greater than 40 cm? - No BMI more then 35? - No There is no height or weight on file to calculate BMI. Mallampati class - 2 TM Distance - 3 FB Oral Opening - 3 FB Teeth - lacking several teeth Cervical range of motion - within normal limits Neck circumference - Allergies and adverse drug reactions No Known Allergies Anesthesia/Airway A/P - no problems anticipated Intubation Date/Time: 05/26/2021 6:27 PM Airway not difficult General Information and Staff Patient location during procedure: OR Room: Indications and Patient Condition Indications for airway management: general anesthesia Sedation level: general anesthesia Preoxygenated: yes Patient position: sniffing Mask difficulty assessment: 1 - vent by mask Final Airway Details Final airway type: endotracheal airway Successful airway: ETT and Jame Flex-Tip ETT size: 7.0 mm Cuffed: yes Endotracheal tube insertion site: oral Successful intubation technique: video laryngoscopy Video Laryngoscope: Wild Blade size: #4 Facilitating devices/methods: intubating stylet Cormack-Lehane Classification: grade I - full view of glottis Placement verified by: auscultation, CO2 detection and visualization through the cords Tube secured: 23 CM at the lips Tube Secured with: tape Cuff volume (mL): 8 Number of attempts at approach: 1 CARDIOVASCULAR Cardiovascular A/P - This patient is in a low risk category as calculated using the RCRI. RCRI score is 0 points placing the patient at a 4% cardiac risk in the perioperative setting Functional status - : low- moderate- self propels in wheelchair, can do a quit pivot. He had a spinal stenosis surgery and he is unable to walk. BP Readings from Last 3 Encounters: 05/09/23 120/72 04/05/23 127/74 09/06/22 114/72 Hypertension - stable on medication Hyperlipidemia - stable on medication PLAN: he has no history of coronary artery disease or cerebral vascular accident. No cardiovascular stents. CARDIAC TESTING: ECG - 08/16/2023, normal sinus rhythm , rate 64, ST segments are within normal limits. PULMONARY Social History Tobacco Use Smoking Status Never Smokeless Tobacco Never Pulmonary A/P - no history of lung disease. The patient does not vape. SUBSTANCE ABUSE Social History Substance and Sexual Activity Alcohol Use Never Social History Substance and Sexual Activity Drug Use Never Substance Abuse A/P - denies use, Pt advised to avoid illicit Rx use, substance abuse, stop smoking leading up to day of surgery due to delayed wound healing. CLOTTING/BLEEDING History of DVT/PE - no Are you a Jehovah Witness? - no In case of surgeons plan or unforseen emergency, are you okay with receiving blood products? - yes Clotting Bleeding A/P - no issues, Recommend standard DVT/PE prophylaxis postoperatively. DIABETES Diabetes A/P - he is prediabetic Lab Results Component Value Date HGBA1C 5.3 08/16/2023 ADDITIONAL DIAGNOSES OF CONCERN MEDICATIONS Current Outpatient Medications Medication Sig Acetaminophen 325 MG tablet Take 2 tablets by mouth 2 times daily. atorvastatin 10 MG tablet Take 1 tablet by mouth daily every morning. calcium carbonate (Nils-Gest Antacid) 500 MG Chew Tab tablet Chew 1 tablet 2 times daily. Cholecalciferol (Vitamin D-3) 25 MCG (1000 UT) capsule Take 2 capsules by mouth daily every morning. clonazePAM 1 MG tablet Take 1 tablet by mouth at bedtime. cyanocobalamin 500 MCG tablet Take 2 tablets by mouth daily. (Patient taking differently: Take 2 tablets by mouth daily every morning.) faMOTIdine 20 MG tablet Take 1 tablet by mouth 2 times daily. Before meals folic acid 1 MG tablet Take 1 tablet by mouth daily every morning. Lacosamide (Vimpat) 200 MG tablet Take 1 tablet by mouth every 12 hours. levETIRAcetam 500 MG tablet Take 4 tablets by mouth 2 times daily. Levothyroxine 100 MCG tablet Take 1 tablet by mouth every morning before breakfast. Takes with 137mcg for total dose of 227mcg QAM levothyroxine 137 MCG tablet Take 1 tablet by mouth daily every morning. Takes with 100mcg tab for total dose of 227mcg QAM Methenamine Hippurate 1 g tablet Take 1 tablet by mouth 2 times daily. metoprolol 25 MG tab regular release Take 0.5 tablets by mouth 2 times daily. Mirabegron ER 25 MG tablet Take 1 tablet by mouth every evening. PARoxetine 10 MG tablet Take 1 tablet by mouth daily. Total dose 50mg (Patient taking differently: Take 1 tablet by mouth daily every morning. Takes with 40mg for Total dose 50mg QAM) PARoxetine 40 MG tablet Take 1 tablet by mouth daily. (Patient taking differently: Take 1 tablet by mouth daily every morning. Takes with 10mg for total dose of 50mg QAM) phenobarbital 100 MG tablet Take by mouth at bedtime. Takes total dose 364.8mg at 7pm (100mg x3 and 32.4mg x2) QHS PHENobarbital 32.4 MG tablet 1 tab po in AM, 1 tab at 1pm, and two tabs at bedtime (7 am, 1 pm, 7pm) (Patient taking differently: Take 1 tablet by mouth 2 times daily. Takes with 16.2mg tab for total dose of 48.6mg at 7am and 1pm) polyethylene glycol 17 g Pack packet Take 1 packet by mouth as needed. Polyethylene glycol 17 g Pack packet Take 1 packet by mouth every evening. At 5PM quetiapine 200 MG tablet Take 1 tablet by mouth at bedtime. Total dose 250mg HS (Patient taking differently: Take by mouth at bedtime. Takes with 50mg for total dose of 250mg QHS) QUEtiapine 25 MG tablet Take 1 tablet by mouth daily. At 1pm (Patient taking differently: Take 1 tablet by mouth daily with lunch. At 1pm) QUEtiapine 50 MG tablet Take 1 tablet by mouth 2 times daily. In morning and at bedtime (Patient taking differently: Take 1 tablet by mouth 2 times daily. In morning and at bedtime (Bedtime dose taken with 200mg for total dose 250mg at bedtime)) senna 8.6 MG tablet Take 1 tablet by mouth 2 times daily. Tamsulosin HCl 0.4 MG capsule Take 1 capsule by mouth at bedtime. Ferrous Sulfate (Iron) 325 (65 Fe) MG tablet Take 1 tablet by mouth 2 times daily. Phenytoin extended 100 MG capsule Take 3 capsules by mouth at bedtime. Medication A/P - Instructions for preoperative medications given to the patient in AVS. LABS Orders Placed This Encounter SCREEN: MRSA/MSSA URINE CULTURE CBC, EDIF, PLATELET CHEM 6 (LYTES, BUN CREA) PROTIME-INR PTT WITH MIXING STUDY TSH W/FT4 REFLEX HEMOGLOBIN A1C PTT W/MIXING STUDY PERF ONLY EXTRA LIGHT BLUE TOP DOUBLE SPIN CBC AND ELECTRONIC DIFF Type and Cross -Preadmission URINALYSIS REFLEX TO CULTURE EXTRA MICRO NE ECG, CLINIC PERFORMED Lab A/P - Labs ordered and reviewed. Lab Results Component Value Date ABORHDTYPE A POS 08/16/2023 Lab Results Component Value Date SODIUM 138 08/16/2023 POTASSIUM 4.4 08/16/2023 CHLORIDE 101 08/16/2023 CO2 32 (H) 08/16/2023 BUN 21 08/16/2023 CREATSERUM 0.58 (L) 08/16/2023 Lab Results Component Value Date WBC 9.77 08/16/2023 HGB 14.6 08/16/2023 HCT 45.0 08/16/2023 PLATELET 237 08/16/2023 MCV 95.7 (H) 08/16/2023 Lab Results Component Value Date TSH 3.191 08/16/2023 Lab Results Component Value Date GLUCOSE 97 08/06/2021 Urine culture - mixed thang - UA not completed, due to technical issue lab could not run, they spun sample wrong. Caregivers state patient has no symptoms of UTi, no fever or chills. And does not complain of dysuria. We are unable to move patient. Sample collected in a hat. No pathogens identified. Lab Results Component Value Date INR 1.0 08/16/2023 INR 1.2 (H) 05/28/2021 INR 1.0 05/22/2021 PT 13.3 08/16/2023 PT 14.6 (H) 05/28/2021 PT 13.5 05/22/2021 Lab Results Component Value Date PTT 28.5 08/16/2023 MRSA screen negative Lab Results Component Value Date HGBA1C 5.3 08/16/2023 OPTIMIZED AT THIS TIME Does pt meet criteria for liberalized NPO? no. If no, why? Aspiration risk is high/seizures DO Charbel Cameron [facility] [address] [facility] Review of Systems Review of Systems Constitutional: Negative for activity change, appetite change and unexpected weight change. Patient is here today with 2 caregivers. He can communicate on a very simple level. They answer most of the questions. Patient is able to stand and is wheelchair bound. Has weak legs due to spinal stenosis, he is pleasant and cooperative. Genitourinary: Negative for dysuria, flank pain, hematuria, penile swelling and urgency. Musculoskeletal: Positive for gait problem (chronic weakness of legs is reported). Psychiatric/Behavioral: Patient has known development delay, he lives in a intermediate with 24 hr caregivers. Physical Examination (PHYSEXAM)Physical Exam Vitals and nursing note reviewed. Constitutional: General: He is not in acute distress. Appearance: He is not toxic-appearing. HENT: Head: Normocephalic and atraumatic. Nose: Nose normal. Mouth/Throat: Mouth: Mucous membranes are moist. Eyes: General: Right eye: No discharge. Pupils: Pupils are equal, round, and reactive to light. Neck: Trachea: Trachea normal. Cardiovascular: Rate and Rhythm: Normal rate and regular rhythm. Pulmonary: Effort: Pulmonary effort is normal. No respiratory distress. Chest: Chest wall: No tenderness. Abdominal: Palpations: Abdomen is soft. There is no mass. Tenderness: There is no abdominal tenderness. There is no guarding or rebound. Hernia: No hernia is present. Musculoskeletal: General: No deformity. Skin: General: Skin is warm and dry. Nails: There is no clubbing. Neurological: Mental Status: Mental status is at baseline. Cranial Nerves: Dysarthria present. Motor: Weakness, tremor (mild resting tremor noted) and abnormal muscle tone present. Coordination: Coordination abnormal. Gait: Gait abnormal. Psychiatric: Attention and Perception: He is inattentive. Mood and Affect: Mood normal. Affect is flat and inappropriate. Speech: He is noncommunicative (for the most part,). Behavior: Behavior normal. Behavior is cooperative. Thought Content: Thought content normal. Cognition and Memory: Cognition is impaired. Memory is impaired. He exhibits impaired recent memory. Judgment: Judgment is inappropriate. Comments: [facility]iary with 5 other residents, [facility] or [facility] [phone] There were no vitals taken for this visit. Past Medical History: Diagnosis Date Developmental delay Essential hypertension, benign Hyperlipidemia Hypothyroidism Intractable epilepsy Mental retardation Prostate enlargement Recurrent UTI Seizure Sleep apnea Past Surgical History: Procedure Laterality Date FUSION ANTERIOR INTERBODY CERVICAL N/A 05/26/2021 Laterality: N/A; Surgeon: Carmelina Youngblood MD; Location: [facility] MAIN OR GRAFT SPINE SURGERY ONLY ALLOGRAFT ANTERIOR ADD-ON PX N/A 05/26/2021 Laterality: N/A; Surgeon: Carmelina Youngblood MD; Location: [facility] MAIN OR INSERTION SPINAL INSTRUMENTATION ANTERIOR ADD-ON PX (IP ONLY) N/A 05/26/2021 Laterality: N/A; Surgeon: Carmelina Youngblood MD; Location: [facility] MA[facility] OR FUSION ANTERIOR INTERBODY EACH ADDL INTERSPACE ADD-ON PX N/A 05/26/2021 Laterality: N/A; Surgeon: Carmelina Youngblood MD; [facility] MONITORING NEUROPHYSIOLOGY INTRAOPERATIVE ADD-ON PX N/A 05/26/2021 Laterality: N/A; Surgeon: Carmelina Youngblood MD; [facility] MICROSURGICAL TECHNIQUES W/ OPERATING MICROSCOPE ADD-ON PX N/A 05/26/2021 Laterality: N/A; Surgeon: Carmelina Youngblood MD; Location: [facility] MAIN OR DISCECTOMY ANTERIOR CERVICAL N/A 05/26/2021 Laterality: N/A; Surgeon: Carmelina Youngblood MD; Location: [facility] MAIN OR REMOVAL SPINAL INSTRUMENTATION ANTERIOR N/A 05/26/2021 Laterality: N/A; Surgeon: Carmelina Youngblood MD; Location: [facility] MAIN OR FUSION ANTERIOR INTERBODY CERVICAL EACH ADDL INTERSPACEX N/A 05/26/2021 Laterality: N/A; Surgeon: Carmelina Youngblood MD; Location: [facility] MAIN OR LAPAROTOMY EXPLORATORY 2020 REDUCTION OPEN ORBITAL FLOOR FX WITH IMPLANT OR BONE GRAFT Right 06/05/2014 Laterality: Right; Surgeon: Douglas Nolasco MD; [facility] EYE SURGERY Right for nerve no implants LEG SURGERY lower leg fracture with pin Patient Care Team: Anthony Munguia DO as PCP - General (Internal Medicine) Chemo Chavez MD as PCP - Referring 1 (Internal Medicine) Carmelo Lindsey MD as PCP - Referring 2 (Neurology) Jair Jacob DO (Family Medicine) Family History Problem Relation Age of Onset Lipid Disorder Mother Alcoholism Father Schizophrenia Father Alcoholism Brother Social History Socioeconomic History Marital status: Single Tobacco Use Smoking status: Never Smokeless tobacco: Never Substance and Sexual Activity Alcohol use: Never Drug use: Never Social History Narrative Merged History Encounter [facility] 08-16-2023 History and physical note History of Present Illness Mr. Mcpherson is a 63 y.o. male is being evaluated in [facility] due to his medical condition(s) Developmental delay Hypertension Hyperlipidemia Hypothyroidism Schizophrenia GERD Intractable epilepsy JAIME on CPAP- tries to use, not always as much as he should History of recurrent UTI - on methenamine [facility] with 5 other residents, [facility] or [facility] [phone] which increases his risk for perioperative complications. Name: Pancho Mcpherson Date of Surgery: 08/30/2023 Surgeon: Guillermo Pre-Op Diagnosis: seizure disorder Planned Procedure: IMPLANTATION OF LEFT VAGAL NERVE STIMULATOR AND LEFT CHEST INTERNAL PULSE GENERATOR Do you take Aspirin? no Does the patient have a central line - no Smoking Status Never ANESTHESIA/AIRWAY Anesthesia alerts -developmental delay, Akhil lift needed. JAIME on CPAP Personal history of problems related to anesthesia (ex.Malignant Hyperthermia): no Family History of problems related to anesthesia (ex.Malignant Hyperthermia: no Pacer/AICD/DBS: no Glaucoma: no Beta Arnulfo: no Diabetic Mellitus: no JAIME: yes Neck circumference greater than 40 cm? - No BMI more then 35? - No There is no height or weight on file to calculate BMI. Mallampati class - 2 TM Distance - 3 FB Oral Opening - 3 FB Teeth - lacking several teeth Cervical range of motion - within normal limits Neck circumference - Allergies and adverse drug reactions No Known Allergies Anesthesia/Airway A/P - no problems anticipated Intubation Date/Time: 05/26/2021 6:27 PM Airway not difficult General Information and Staff Patient location during procedure: OR Room: Indications and Patient Condition Indications for airway management: general anesthesia Sedation level: general anesthesia Preoxygenated: yes Patient position: sniffing Mask difficulty assessment: 1 - vent by mask Final Airway Details Final airway type: endotracheal airway Successful airway: ETT and Jame Flex-Tip ETT size: 7.0 mm Cuffed: yes Endotracheal tube insertion site: oral Successful intubation technique: video laryngoscopy Video Laryngoscope: Wild Blade size: #4 Facilitating devices/methods: intubating stylet Cormack-Lehane Classification: grade I - full view of glottis Placement verified by: auscultation, CO2 detection and visualization through the cords Tube secured: 23 CM at the lips Tube Secured with: tape Cuff volume (mL): 8 Number of attempts at approach: 1 CARDIOVASCULAR Cardiovascular A/P - This patient is in a low risk category as calculated using the RCRI. RCRI score is 0 points placing the patient at a 4% cardiac risk in the perioperative setting Functional status - : low- moderate- self propels in wheelchair, can do a quit pivot. He had a spinal stenosis surgery and he is unable to walk. BP Readings from Last 3 Encounters: 05/09/23 120/72 04/05/23 127/74 09/06/22 114/72 Hypertension - stable on medication Hyperlipidemia - stable on medication PLAN: he has no history of coronary artery disease or cerebral vascular accident. No cardiovascular stents. CARDIAC TESTING: ECG - 08/16/2023, normal sinus rhythm , rate 64, ST segments are within normal limits. PULMONARY Social History Tobacco Use Smoking Status Never Smokeless Tobacco Never Pulmonary A/P - no history of lung disease. The patient does not vape. SUBSTANCE ABUSE Social History Substance and Sexual Activity Alcohol Use Never Social History Substance and Sexual Activity Drug Use Never Substance Abuse A/P - denies use, Pt advised to avoid illicit Rx use, substance abuse, stop smoking leading up to day of surgery due to delayed wound healing. CLOTTING/BLEEDING History of DVT/PE - no Are you a Jehovah Witness? - no In case of surgeons plan or unforseen emergency, are you okay with receiving blood products? - yes Clotting Bleeding A/P - no issues, Recommend standard DVT/PE prophylaxis postoperatively. DIABETES Diabetes A/P - he is prediabetic Lab Results Component Value Date HGBA1C 5.3 08/16/2023 ADDITIONAL DIAGNOSES OF CONCERN MEDICATIONS Current Outpatient Medications Medication Sig Acetaminophen 325 MG tablet Take 2 tablets by mouth 2 times daily. atorvastatin 10 MG tablet Take 1 tablet by mouth daily every morning. calcium carbonate (Nils-Gest Antacid) 500 MG Chew Tab tablet Chew 1 tablet 2 times daily. Cholecalciferol (Vitamin D-3) 25 MCG (1000 UT) capsule Take 2 capsules by mouth daily every morning. clonazePAM 1 MG tablet Take 1 tablet by mouth at bedtime. cyanocobalamin 500 MCG tablet Take 2 tablets by mouth daily. (Patient taking differently: Take 2 tablets by mouth daily every morning.) faMOTIdine 20 MG tablet Take 1 tablet by mouth 2 times daily. Before meals folic acid 1 MG tablet Take 1 tablet by mouth daily every morning. Lacosamide (Vimpat) 200 MG tablet Take 1 tablet by mouth every 12 hours. levETIRAcetam 500 MG tablet Take 4 tablets by mouth 2 times daily. Levothyroxine 100 MCG tablet Take 1 tablet by mouth every morning before breakfast. Takes with 137mcg for total dose of 227mcg QAM levothyroxine 137 MCG tablet Take 1 tablet by mouth daily every morning. Takes with 100mcg tab for total dose of 227mcg QAM Methenamine Hippurate 1 g tablet Take 1 tablet by mouth 2 times daily. metoprolol 25 MG tab regular release Take 0.5 tablets by mouth 2 times daily. Mirabegron ER 25 MG tablet Take 1 tablet by mouth every evening. PARoxetine 10 MG tablet Take 1 tablet by mouth daily. Total dose 50mg (Patient taking differently: Take 1 tablet by mouth daily every morning. Takes with 40mg for Total dose 50mg QAM) PARoxetine 40 MG tablet Take 1 tablet by mouth daily. (Patient taking differently: Take 1 tablet by mouth daily every morning. Takes with 10mg for total dose of 50mg QAM) phenobarbital 100 MG tablet Take by mouth at bedtime. Takes total dose 364.8mg at 7pm (100mg x3 and 32.4mg x2) QHS PHENobarbital 32.4 MG tablet 1 tab po in AM, 1 tab at 1pm, and two tabs at bedtime (7 am, 1 pm, 7pm) (Patient taking differently: Take 1 tablet by mouth 2 times daily. Takes with 16.2mg tab for total dose of 48.6mg at 7am and 1pm) polyethylene glycol 17 g Pack packet Take 1 packet by mouth as needed. Polyethylene glycol 17 g Pack packet Take 1 packet by mouth every evening. At 5PM quetiapine 200 MG tablet Take 1 tablet by mouth at bedtime. Total dose 250mg HS (Patient taking differently: Take by mouth at bedtime. Takes with 50mg for total dose of 250mg QHS) QUEtiapine 25 MG tablet Take 1 tablet by mouth daily. At 1pm (Patient taking differently: Take 1 tablet by mouth daily with lunch. At 1pm) QUEtiapine 50 MG tablet Take 1 tablet by mouth 2 times daily. In morning and at bedtime (Patient taking differently: Take 1 tablet by mouth 2 times daily. In morning and at bedtime (Bedtime dose taken with 200mg for total dose 250mg at bedtime)) senna 8.6 MG tablet Take 1 tablet by mouth 2 times daily. Tamsulosin HCl 0.4 MG capsule Take 1 capsule by mouth at bedtime. Ferrous Sulfate (Iron) 325 (65 Fe) MG tablet Take 1 tablet by mouth 2 times daily. Phenytoin extended 100 MG capsule Take 3 capsules by mouth at bedtime. Medication A/P - Instructions for preoperative medications given to the patient in AVS. LABS Orders Placed This Encounter SCREEN: MRSA/MSSA URINE CULTURE CBC, EDIF, PLATELET CHEM 6 (LYTES, BUN CREA) PROTIME-INR PTT WITH MIXING STUDY TSH W/FT4 REFLEX HEMOGLOBIN A1C PTT W/MIXING STUDY PERF ONLY EXTRA LIGHT BLUE TOP DOUBLE SPIN CBC AND ELECTRONIC DIFF Type and Cross -Preadmission URINALYSIS REFLEX TO CULTURE EXTRA MICRO NE ECG, CLINIC PERFORMED Lab A/P - Labs ordered and reviewed. Lab Results Component Value Date ABORHDTYPE A POS 08/16/2023 Lab Results Component Value Date SODIUM 138 08/16/2023 POTASSIUM 4.4 08/16/2023 CHLORIDE 101 08/16/2023 CO2 32 (H) 08/16/2023 BUN 21 08/16/2023 CREATSERUM 0.58 (L) 08/16/2023 Lab Results Component Value Date WBC 9.77 08/16/2023 HGB 14.6 08/16/2023 HCT 45.0 08/16/2023 PLATELET 237 08/16/2023 MCV 95.7 (H) 08/16/2023 Lab Results Component Value Date TSH 3.191 08/16/2023 Lab Results Component Value Date GLUCOSE 97 08/06/2021 Urine culture - mixed thang - UA not completed, due to technical issue lab could not run, they spun sample wrong. Caregivers state patient has no symptoms of UTi, no fever or chills. And does not complain of dysuria. We are unable to move patient. Sample collected in a hat. No pathogens identified. Lab Results Component Value Date INR 1.0 08/16/2023 INR 1.2 (H) 05/28/2021 INR 1.0 05/22/2021 PT 13.3 08/16/2023 PT 14.6 (H) 05/28/2021 PT 13.5 05/22/2021 Lab Results Component Value Date PTT 28.5 08/16/2023 MRSA screen negative Lab Results Component Value Date HGBA1C 5.3 08/16/2023 OPTIMIZED AT THIS TIME Does pt meet criteria for liberalized NPO? no. If no, why? Aspiration risk is high/seizures DO Charbel Cameron [facility] Perioperative Clinic [facility] [address] [facility] Review of Systems Review of Systems Constitutional: Negative for activity change, appetite change and unexpected weight change. Patient is here today with 2 caregivers. He can communicate on a very simple level. They answer most of the questions. Patient is able to stand and is wheelchair bound. Has weak legs due to spinal stenosis, he is pleasant and cooperative. Genitourinary: Negative for dysuria, flank pain, hematuria, penile swelling and urgency. Musculoskeletal: Positive for gait problem (chronic weakness of legs is reported). Psychiatric/Behavioral: Patient has known development delay, he lives in a intermediate with 24 hr caregivers. Physical Examination (PHYSEXAM)Physical Exam Vitals and nursing note reviewed. Constitutional: General: He is not in acute distress. Appearance: He is not toxic-appearing. HENT: Head: Normocephalic and atraumatic. Nose: Nose normal. Mouth/Throat: Mouth: Mucous membranes are moist. Eyes: General: Right eye: No discharge. Pupils: Pupils are equal, round, and reactive to light. Neck: Trachea: Trachea normal. Cardiovascular: Rate and Rhythm: Normal rate and regular rhythm. Pulmonary: Effort: Pulmonary effort is normal. No respiratory distress. Chest: Chest wall: No tenderness. Abdominal: Palpations: Abdomen is soft. There is no mass. Tenderness: There is no abdominal tenderness. There is no guarding or rebound. Hernia: No hernia is present. Musculoskeletal: General: No deformity. Skin: General: Skin is warm and dry. Nails: There is no clubbing. Neurological: Mental Status: Mental status is at baseline. Cranial Nerves: Dysarthria present. Motor: Weakness, tremor (mild resting tremor noted) and abnormal muscle tone present. Coordination: Coordination abnormal. Gait: Gait abnormal. Psychiatric: Attention and Perception: He is inattentive. Mood and Affect: Mood normal. Affect is flat and inappropriate. Speech: He is noncommunicative (for the most part,). Behavior: Behavior normal. Behavior is cooperative. Thought Content: Thought content normal. Cognition and Memory: Cognition is impaired. Memory is impaired. He exhibits impaired recent memory. Judgment: Judgment is inappropriate. Comments: [facility] with [facility] other residents, [facility] or [facility] [phone] There were no vitals taken for this visit. Past Medical History: Diagnosis Date Developmental delay Essential hypertension, benign Hyperlipidemia Hypothyroidism Intractable epilepsy Mental retardation Prostate enlargement Recurrent UTI Seizure Sleep apnea Past Surgical History: Procedure Laterality Date FUSION ANTERIOR INTERBODY CERVICAL N/A 05/26/2021 Laterality: N/A; Surgeon: Carmelina Youngblood MD; Location: [facility] MAIN OR GRAFT SPINE SURGERY ONLY ALLOGRAFT ANTERIOR ADD-ON PX N/A 05/26/2021 Laterality: N/A; Surgeon: Carmelina Youngblood MD; Location: [facility] MAIN OR INSERTION SPINAL INSTRUMENTATION ANTERIOR ADD-ON PX (IP ONLY) N/A 05/26/2021 Laterality: N/A; Surgeon: Carmelina Youngblood MD; Location[facility] MA[facility] OR FUSION ANTERIOR INTERBODY EACH ADDL INTERSPACE ADD-ON PX N/A 05/26/2021 Laterality: N/A; Surgeon: Carmelina Youngblood MD; Location: [facility] MAIN OR MONITORING NEUROPHYSIOLOGY INTRAOPERATIVE ADD-ON PX N/A 05/26/2021 Laterality: N/A; Surgeon: Carmelina Youngblood MD; Location: [facility] MAIN OR MICROSURGICAL TECHNIQUES W/ OPERATING MICROSCOPE ADD-ON PX N/A 05/26/2021 Laterality: N/A; Surgeon: Carmelina Youngblood MD; [facility] MA[facility] OR DISCECTOMY ANTERIOR CERVICAL N/A 05/26/2021 Laterality: N/A; Surgeon: Carmelina Youngblood MD; Location: [facility] MAIN OR REMOVAL SPINAL INSTRUMENTATION ANTERIOR N/A 05/26/2021 Laterality: N/A; Surgeon: Carmelina Youngblood MD; [facility] MA[facility] OR FUSION ANTERIOR INTERBODY CERVICAL EACH ADDL INTERSPACEX N/A 05/26/2021 Laterality: N/A; Surgeon: Carmelina Youngblood MD; [facility] MA[facility] OR LAPAROTOMY EXPLORATORY 2020 REDUCTION OPEN ORBITAL FLOOR FX WITH IMPLANT OR BONE GRAFT Right 06/05/2014 Laterality: Right; Surgeon: Douglas Nolasco MD; Location: [facility] MAIN OR EYE SURGERY Right for nerve no implants LEG SURGERY lower leg fracture with pin Patient Care Team: Anthony Munguia DO as PCP - General (Internal Medicine) Chemo Chavez MD as PCP - Referring 1 (Internal Medicine) Carmelo Lindsey MD as PCP - Referring 2 (Neurology) Jair Jacob DO (Family Medicine) Family History Problem Relation Age of Onset Lipid Disorder Mother Alcoholism Father Schizophrenia Father Alcoholism Brother Social History Socioeconomic History Marital status: Single Tobacco Use Smoking status: Never Smokeless tobacco: Never Substance and Sexual Activity Alcohol use: Never Drug use: Never Social History Narrative Merged History Encounter documented in this encounter [facility] 08-16-2023 Instructions Carla Garcia LPN - 08/16/2023 10:45 AM EST Patient Medication Instructions: On the morning of your surgery only take the following medications with a small amount of water: can use jello or popsickle to take medications Famotidine Lacosamide Levetiracetam Levothyroxine methenamine hippurate Metoprolol mirabegron er Paroxetine Phenobarbital quetiapine Do not use aspirin starting 10 days prior to surgery. If you use an Inhaler/Inhalers on a daily basis, then use your inhaler on the morning of surgery. Refrain from smoking and vaping at least 24 hours prior to surgery. - Do NOT take Herbal Medication (including multi-vitamin, fish oil (Bancroft-3), garlic, Glucosamine - Chondroitin ,gingko, ginseng, Vitamin E, probiotics) vitamins and supplements 2 weeks before surgery, unless otherwise instructed. - Do NOT take Excedrin, ibuprofen, Advil, Celebrex, Voltaren (Diclofenac), Motrin, naproxen, or Aleve, Mobic (Meloxicam) for the 7-14 days before surgery. Acetaminophen (Tylenol) is ok to take up until the day of surgery. Patient Pre-Operative Instructions: Diet Instructions: -NO food or drink after 11 pm the night before surgery except for enough water to take your medications. (No Candy, Mints and/or Gum). Follow all instructions you received from your surgical team regarding nutritional shakes. - Do NOT wear any hearing aids, jewelry, watches, rings, hairpieces, makeup, glasses or contact lenses with you into your surgery. - Shower the night before and the morning of surgery. - Do NOT shave, or pluck hair from anywhere near the surgical site one week prior to surgery. - Chisholm your teeth and rinse your mouth the morning of surgery. - Do NOT bring your dentures or partials with you into surgery. They may be lost. Give them to someone to bring to you after surgery. If you are unable to complete your scheduled testing or appointments made by [facility] please contact [facility] at [phone]. Failure to do so could delay or cancel your surgery. Patient instructed to bring CPAP machine, with prescribed settings, and mask day of surgery. Patient Education handout JAIME Care after Sedation or Anesthesia given to patient. Today we completed a nasal swab culture to check for a specific bacteria called MRSA or MSSA. This is a bacteria that can live in the nose and cause no symptoms or illness. If your culture is positive, we will contact you and send in a prescription for mupirocin to your pharmacy. You will be instructed to rub the ointment into each of your nostrils twice a day for 5 days prior to your surgery. Your nurse will also swab your nose with a betadine swab in the preoperative area on your day of surgery. Please notify the nurse if you have an iodine allergy. To lessen your chance of getting an infection after your surgery, you will need to wash your skin with a special soap called 4% Chlorhexidine Gluconate (CHG) before your surgery. Your nurse has given you CHG soap today and written instructions; Getting Your Skin Ready for Surgery. Please review the instructions carefully prior to your surgery. If you become ill, develop a fever, cough, or any type of infection within 14 days of your scheduled surgery, please call the surgeon's office. You may need to have your surgery moved, as we would not want to put you at risk for complications due to an illness. If you are placed on Antibiotics within 1 week of surgery, please notify our team immediately. - If you have Sleep apnea and have a CPAP or BIPAP, then bring your CPAP mask and machine with you to the hospital. Please contact Medical Information Management Department for all records requests. [phone] [phone] Avyoly/lucia documented in this encounter [facility] 06-21-2023 History of Present illness Narrative Subjective Patient ID: Pancho Mcpherson is a 63 y.o. male who presents for Establish Care (THRILL PERFORMER/EST CARE). HPI Patient is here a 63 y.o. male patient who is here today to establish care. Patient has a pmhx of epilepsy, Intellectual disability with behavioral disturbance , hypothyroidism, JAIME on CPAP, HLD, Schizophrenia, Recurrent UTIs, and BPH, htn. Epilepsy- sees Dr Li at [facility], he has planned neuromodulation therapy done later this month as his seizures have been refractory. On keppra and phentyoin Schizophrenia, intellectual disturbance - sees psych, on clonazepam Cervical spinal stenosis - s.p cervical spinal surgery C3-4, was ambulatory until a few years ago, now wheelchair bound, discussed further surgery but sister declined HLD - on lipitor 10mg po daily GERD - on famotidine Hypothyroidism - on synthroid HTN - on metoprolol Review of Systems Unable to do ROS due to pts intellectual disability; slept through of the appt Objective BP 125/76 Pulse 85 Ht 1.753 m (5' 9) Wt 83.9 kg (185 lb) BMI 27.32 kg/m Physical Exam Constitutional: General: He is not in acute distress. Appearance: Normal appearance. HENT: Head: Normocephalic and atraumatic. Nose: Nose normal. Eyes: Extraocular Movements: Extraocular movements intact. Pupils: Pupils are equal, round, and reactive to light. Cardiovascular: Rate and Rhythm: Normal rate and regular rhythm. Pulses: Normal pulses. Heart sounds: No murmur heard. Pulmonary: Effort: Pulmonary effort is normal. No respiratory distress. Breath sounds: No wheezing. Abdominal: General: Bowel sounds are normal. There is no distension. Palpations: Abdomen is soft. Tenderness: There is no abdominal tenderness. Musculoskeletal: Cervical back: Neck supple. Right lower leg: No edema. Left lower leg: No edema. Comments: Wheelchair bound, lower extremity weakness Skin: General: Skin is warm and dry. Neurological: Mental Status: He is alert. Mental status is at baseline. Psychiatric: Mood and Affect: Mood normal. Assessment/Plan Problem List Items Addressed This Visit Benign prostatic hyperplasia with urinary obstruction and other lower urinary tract symptoms Bilateral leg weakness Spinal stenosis, lumbar region without neurogenic claudication Dementia (CMS/HCC) Intellectual disability Generalized idiopathic epilepsy and epileptic syndromes, intractable, without status epilepticus (CMS/HCC) Hyperlipidemia Hypertension - Primary Hypothyroidism Moderate episode of recurrent major depressive disorder (CMS/HCC) Schizophrenia (CMS/HCC) S/P cervical spinal fusion Seizures (CMS/HCC) Sleep apnea Vitamin D deficiency, unspecified Drug Resistant Epilepsy - following with neurology at [facility] - planning for neuromodulation procedure - on keppra, phenobarbital, dilantin 2. Cervical spinal stenosis, s/p ACDF c3-c5 in 2020, residual weakness in right side, wheelchair bound 3. HTN - continue norvasc 10mg po daily 4. HLD - continue lipitor 10mg po daily 5. Schizophrenia, intellectual disability - follows with psych - on cogentin 1mg po q6 - on aricept, namenda - haldol prn - paxil 40mg po daily - on seroquel 6. Seasonal allergies - continue zyrtec 7. GERD - on famotidine 8. Hypothyroidism - continue synthroid 9. Recurrent UTIs , BPH - on hiprex - on myrbetriq - on flomax Final diagnoses: [I10] Primary hypertension [E78.2] Mixed hyperlipidemia [E55.9] Vitamin D deficiency, unspecified [E03.9] Acquired hypothyroidism [N40.1, N13.8] Benign prostatic hyperplasia with urinary obstruction and other lower urinary tract symptoms [F20.3] Undifferentiated schizophrenia (CMS/HCC) [F33.1] Moderate episode of recurrent major depressive disorder (CMS/HCC) [R29.898] Bilateral leg weakness [M48.061] Spinal stenosis, lumbar region without neurogenic claudication [R56.9] Seizures (CMS/HCC) [Z98.1] S/P cervical spinal fusion [F79] Intellectual disability [G40.319] Generalized idiopathic epilepsy and epileptic syndromes, intractable, without status epilepticus (CMS/HCC) [F03.918] Dementia with other behavioral disturbance, unspecified dementia severity, unspecified dementia type (CMS/HCC) [G47.33] Obstructive sleep apnea syndrome documented in this encounter [facility] Work Phone: 06-08-2023 History of Present illness Narrative General Surgery Consultation Patient: Pancho Mcpherson : 1960 Date of Consultation: 06/08/23 Primary Care Provider: Anthony Munguia DO Referring Provider: Dr. Lucy Hahn Chief Complaint: Gallbladder abscess History of Present Illness: Pancho Mcpherson is a 63 y.o. old male seen at the request of Dr. Hahn for evaluation of gallbladder abscess. This work-up initially started from an ED visit in September after the patient had a fall while in his intermediate. In the emergency department, work-up included CT scan of the abdomen and pelvis. He was found to have an irregular contour of the gallbladder with wall thickening and inflammatory changes with a fluid collection adjacent to the fundus, with this suspected small fistula between this fluid collection in the gallbladder. He had no fever, pain, or leukocytosis at that time. Follow-up imaging was obtained in February, which again showed this persistent fluid collection. On that scan it was slightly increased. The patient denies any dietary restrictions. He eats what ever they serve at the intermediate. His caregivers who are accompanying him from the intermediate confirm that he is a good eater. He enjoys foods including burgers. He does not complain of any pain, nausea, or vomiting after eating. He gets frequent UTIs and is sometimes clammy when he gets those, but otherwise does not spike fevers. Medical History: Schizophrenia Intellectual disability Seizure disorder Sleep apnea HTN Hyperlipidemia Cervical spinal stenosis Hypothyroidism Bowel obstruction Anxiety/Depression Surgical History: Exploratory laparotomy (caregivers unclear and patient unable to contribute to history, but they think this may have been secondary to an obstruction when he swallowed his dentures) Surgery for spinal stenosis Home Medications: Prior to Admission medications Medication Sig Start Date End Date Taking? Authorizing Provider acetaminophen (Tylenol) 325 mg tablet Take 2 tablets (650 mg) by mouth every 6 hours if needed for mild pain (1 - 3). Historical Provider, amLODIPine (Norvasc) 10 mg tablet Take 1 tablet (10 mg) by mouth once daily. Historical Provider, amoxicillin (Amoxil) 500 mg capsule 12/28/22 Historical Provider, atorvastatin (Lipitor) 10 mg tablet Take 1 tablet (10 mg) by mouth once daily. Historical Provider, benztropine (Cogentin) 1 mg tablet Take 1 tablet (1 mg) by mouth every 6 hours if needed. Historical Provider, calcium carbonate (Tums) 200 mg calcium chewable tablet Chew 1 tablet (500 mg) 2 times a day. Historical Provider, cetirizine (ZYRTEC) 10 mg capsule Take 1 capsule (10 mg) by mouth if needed. Historical Provider, cholecalciferol (Vitamin D3) 25 MCG (1000 UT) tablet Take 1 tablet (25 mcg) by mouth 2 times a day. Historical Provider, clonazePAM (KlonoPIN) 1 mg tablet Take 1 tablet (1 mg) by mouth once daily at bedtime. Historical Provider, cyanocobalamin (Vitamin B-12) 1,000 mcg tablet Take 100 mcg by mouth once daily. Historical Provider, docusate sodium (Colace) 100 mg capsule Take 1 capsule (100 mg) by mouth twice a day. Historical Provider, donepezil (Aricept) 10 mg tablet Take 10 mg by mouth daily at bedtime. Historical Provider, ergocalciferol (Vitamin D-2) 1.25 MG (92674 UT) capsule Take 1 capsule (50,000 Units) by mouth once a week. Historical Provider, famotidine (Pepcid) 20 mg tablet Take 1 tablet (20 mg) by mouth once daily. Historical ProviderMD ferrous sulfate 325 (65 Fe) MG tablet Take 1 tablet (65 mg of iron) by mouth 2 times a day. Historical ProviderMD folic acid (Folvite) 1 mg tablet Take 1 tablet (1 mg) by mouth once daily. Historical ProviderMD haloperidol (Haldol) 5 mg tablet Take 1 tablet (5 mg) by mouth if needed. Historical ProviderMD haloperidol lactate (Haldol) 5 mg/mL injection Inject intramuscularly as needed. Historical ProviderMD HYDROcodone-acetaminophen ([place]) 5-325 mg tablet Take 1 tablet by mouth every 6 hours if needed. Historical ProviderMD lacosamide (Vimpat) 200 mg tablet tablet Take 0.25 tablets (50 mg) by mouth 2 times a day. Historical ProviderMD levETIRAcetam (Keppra) 500 mg tablet Take 4 tablets (2,000 mg) by mouth 2 times a day. Historical ProviderMD levothyroxine (Synthroid, Levoxyl) 100 mcg tablet Take 1 tablet (100 mcg) by mouth once daily in the morning. Take before meals. Historical ProviderMD levothyroxine (Tirosint) 137 mcg capsule Take 1 capsule (137 mcg) by mouth once daily. Historical ProviderMD memantine (Namenda) 5 mg tablet Take 1 tablet (5 mg) by mouth twice a day. Historical ProviderMD methenamine hippurate (Hiprex) 1 gram tablet Take 1 tablet (1 g) by mouth 2 times a day. Historical ProviderMD metoprolol tartrate (Lopressor) 12.5 mg split tablet Take 2 half tablet (25 mg) by mouth 2 times a day. Historical ProviderMD mirabegron (Myrbetriq) 25 mg tablet extended release 24 hr 24 hr tablet Take 1 tablet (25 mg) by mouth once daily. Historical ProviderMD PARoxetine (Paxil) 10 mg tablet Take 1 tablet (10 mg) by mouth once daily in the morning. Historical ProviderMD PARoxetine (Paxil) 40 mg tablet Take 1 tablet (40 mg) by mouth once daily in the morning. Historical ProviderMD PHENobarbitaL (Luminal) 16.2 mg tablet Take 1 tablet (16.2 mg) by mouth 2 times a day. Historical ProviderMD PHENobarbitaL (Luminal) 32.4 mg tablet Take 1 tablet (32.4 mg) by mouth 2 times a day. Historical ProviderMD phenytoin ER (Dilantin) 100 mg capsule Take 1 capsule (100 mg) by mouth 3 times a day. Historical ProviderMD polyethylene glycol (Glycolax, Miralax) 17 gram/dose powder Take 17 g by mouth once daily. Historical ProviderMD promethazine (Phenergan) 25 mg tablet Take 1 tablet (25 mg) by mouth every 6 hours if needed. Historical ProviderMD QUEtiapine (SEROquel) 200 mg tablet Take 1 tablet (200 mg) by mouth once daily at bedtime. Historical ProviderMD QUEtiapine (SEROquel) 25 mg tablet Take 1 tablet (25 mg) by mouth once daily at bedtime. Historical ProviderMD sennosides (Senokot) 8.6 mg tablet Take 1 tablet (8.6 mg) by mouth twice a day. 09/30/21 Historical ProviderMD sennolinda-docusate sodium (Katja-Colace) 8.6-50 mg tablet Take 1 tablet by mouth 2 times a day. Historical ProviderMD tamsulosin (Flomax) 0.4 mg 24 hr capsule Take 1 capsule (0.4 mg) by mouth once daily. Historical ProviderMD tropicamide (Mydriacyl) 0.5 % ophthalmic solution 06/07/23 06/07/23 Historical ProviderMD Allergies: No Known Allergies Family History: Unknown. Patient with intellectual disability lives in a intermediate, unable to provide this information. Social History: Non-smoker. No alcohol or drug use. Lives in a intermediate. Wheelchair-bound. ROS: Constitutional: + Fatigue Cardiovascular: No chest pain Respiratory: + Sleep apnea Gastrointestinal: No abdominal pain, nausea or vomiting. + Black stool, constipation, blood per rectum Genitourinary: + History of frequent UTIs, no dark-colored urine Musculoskeletal: no weakness or swelling Integumentary: no jaundice Neurological: + Unsteady gait, seizures or epilepsy, weakness Endocrine: + Frequent urination Psychiatric: + Anxiety, depression, mood swings Heme/Lymph: no easy bruising or bleeding Objective: BP 128/76 Pulse 62 Ht 1.753 m (5' 9) Wt 83.9 kg (185 lb) BMI 27.32 kg/m Physical Exam: Constitutional: No acute distress, in a wheelchair, accompanied by 2 caregivers from his intermediate. Neurologic: alert. Makes eye contact. He takes time to answer questions, but can answer simple questions, mostly with yes/no answers. Psych: Pleasant Ears, Nose, Mouth and Throat: mucus membranes moist Pulmonary: No labored breathing, on room air Cardiovascular: Regular rate and rhythm Abdomen: soft, non-distended, non-tender to deep palpation, small upper midline laparotomy scar Musculoskeletal: Moves all extremities, no edema Skin: No jaundice Labs: Labs from 09/19/22 reviewed: WBC 9.5, LFTs within normal limits Labs from 02/15/23 reviewed: WBC 11.1, LFTs within normal limits Imaging: CT abdomen and pelvis from 02/27/2023 reviewed: Rim-enhancing collection near the gallbladder fundus, enlarged from 3.7 (on CT scan from 09/19/22) to 5.3 cm with persistent adjacent inflammatory fat stranding. Suspected communication with the gallbladder. No calcified stones identified. Liver is unremarkable. No biliary ductal dilation. Assessment and Plan: Pancho Mcpherson is a 63 y.o. old male with incidental finding of a abscess cavity adjacent to the fundus of the gallbladder with a fistulous connection to the gallbladder. Given that this fistulous connection is patent, he does not seem to be getting sick from this. I suspect that it is in continuity with free-flowing bile throughout this cavity. He is not symptomatic. He is not tender to very deep palpation in the right upper quadrant on exam. I therefore recommended an observational approach. If he were to develop right upper quadrant pain or postprandial vomiting we could always reassess. He will follow-up with me as needed. Anthony Ortiz MD 06/08/2023 documented in this encounter 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 Progressing both eyes. Recheck in 6 months. H57.02 Physiologic anisocoria Comment: R>L. Reactions limited but normal. Internal unremarkable. H52.03 Hyperopia, bilateral H52.4 Presbyopia Comment: Glasses power stable. Update as desired. I have confirmed and edited as necessary the relevant ophthalmic history, ROS, and the neuro exam findings as obtained by others. I have seen and examined Pancho Mcpherson. I have discussed the case and the management of this patient's care with the Resident/Fellow, if applicable. I also have reviewed and agree with the assessment and plan as stated above and agree with all of its relevant components. 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 Progressing both eyes. Recheck in 6 months. H57.02 Physiologic anisocoria Comment: R>L. Reactions limited but normal. Internal unremarkable. H52.03 Hyperopia, bilateral H52.4 Presbyopia Comment: Glasses power stable. Update as desired. I have confirmed and edited as necessary the relevant ophthalmic history, ROS, and the neuro exam findings as obtained by others. I have seen and examined Pancho Mcpherson. I have discussed the case and the management of this patient's care with the Resident/Fellow, if applicable. I also have reviewed and agree with the assessment and plan as stated above and agree with all of its relevant components. Lemuel Sommer II, OD documented in this encounter [facility] 2023 History of Present illness Narrative Neurosurgery Clinic Note Date: 2023 Patient: Pancho Mcpherson Date of : 1960 Visit Date: 05/09/23 Visit Type: New Patient Chief Complaint Chief Complaint Patient presents with New Patient 63 yr male here for consult History of Present Illness Pancho Mcpherson is a 63 y.o. patient with history of drug resistant epilepsy who presents to discuss neuromodulation therapy. The patient has history of drug resistant epilepsy with 2-3 seizures per month. The seizure started at age 6 months after he developed febrile seizures. The patient had seen Dr. García and was interested in VNS therapy. His sister joins in clinic today. Seizure semiology involves vocalization, followed by bilateral upper limb stiffening and unresponsiveness. If he is standing at the time of seizure onset, he will fall. There is only one seizure type that has been noted. He is able to drink and eat normally without coughing. The patient additionally has history of cervical spine stenosis and underwent a procedure at [facility]. Per review of records, this was an ACDF at C3-C5 with Dr. Youngblood on 05-26-21, with an approach from the right side. The patient's caregivers also note that after surgery he has been wheelchair bound and that he has weakness involving the right side. Past Medical/Surgical History Past Medical History: Diagnosis Date Developmental delay Essential hypertension, benign Hyperlipidemia Hypothyroidism Intractable epilepsy Mental retardation Prostate enlargement Recurrent UTI Seizure Seizures Sleep apnea Past Surgical History: Procedure Laterality Date FUSION ANTERIOR INTERBODY CERVICAL N/A 05/26/2021 Laterality: N/A; Surgeon: Carmelina Youngblood MD; Location: [facility] MAIN OR GRAFT SPINE SURGERY ONLY ALLOGRAFT ANTERIOR ADD-ON PX N/A 05/26/2021 Laterality: N/A; Surgeon: Carmelina Youngblood MD; Location[facility] MA[facility] OR INSERTION SPINAL INSTRUMENTATION ANTERIOR ADD-ON PX (IP ONLY) N/A 05/26/2021 Laterality: N/A; Surgeon: Carmelina Youngblood MD; Location[facility] MA[facility] OR FUSION ANTERIOR INTERBODY EACH ADDL INTERSPACE ADD-ON PX N/A 05/26/2021 Laterality: N/A; Surgeon: Carmelina Youngblood MD; Location: [facility] MAIN OR MONITORING NEUROPHYSIOLOGY INTRAOPERATIVE ADD-ON PX N/A 05/26/2021 Laterality: N/A; Surgeon: Carmelina Youngblood MD; Location: [facility] MAIN OR MICROSURGICAL TECHNIQUES W/ OPERATING MICROSCOPE ADD-ON PX N/A 05/26/2021 Laterality: N/A; Surgeon: Carmelina Youngblood MD; Location: [facility] MAIN OR DISCECTOMY ANTERIOR CERVICAL N/A 05/26/2021 Laterality: N/A; Surgeon: Carmelina Youngblood MD; Location: [facility] MAIN OR REMOVAL SPINAL INSTRUMENTATION ANTERIOR N/A 05/26/2021 Laterality: N/A; Surgeon: Carmelina Youngblood MD; Location: [facility] MAIN OR FUSION ANTERIOR INTERBODY CERVICAL EACH ADDL INTERSPACEX N/A 05/26/2021 Laterality: N/A; Surgeon: Carmelina Youngblood MD; Location: [facility] MAIN OR LAPAROTOMY EXPLORATORY 2020 REDUCTION OPEN ORBITAL FLOOR FX WITH IMPLANT OR BONE GRAFT Right 06/05/2014 Laterality: Right; Surgeon: Douglas Nolasco MD; Location: [facility] MAIN OR EYE SURGERY Right for nerve no implants LEG SURGERY lower leg fracture with pin Allergies: No Known Allergies Social History: reports that he has never smoked. He has never used smokeless tobacco. He reports that he does not drink alcohol and does not use drugs. Physical Exam: General: No acute distress. Alert and answering questions appropriately. HENT: Normocephalic, without obvious abnormality, atraumatic Musculoskeletal: No obvious contractures, deformities Cranial Nerves: EOMI, FS, TML, SILT V1-V3. Motor: Trace weakness in the RUE. RLE is 4/5 proximally. Sensory: Intact to light touch grossly in upper and lower extremities Imaging: I reviewed the XR from 09-06-22 which demonstrated an anterior plate from C3-C5. 09-19-22 CT Head, Report Only IMPRESSION: No acute intracranial hemorrhage or mass effect. No acute fracture or traumatic subluxation of the cervical spine. Nonspecific white matter changes and parenchymal volume loss. Status post ACDF and degenerative changes in Assessment: 63 y.o. patient with history of drug resistant epilepsy who presents to discuss neuromodulation therapy. We discussed the diagnosis and the possible options regarding surgical management of epilepsy. The patient's sister noted that the patient previously underwent a presurgical evaluation at [facility] and was felt to not be a candidate for epilepsy surgery. We discussed different types of neuromodulation for epilepsy. We discussed the VNS procedure and how it is performed. We talked about the risks, benefits, and alternatives. Risks include pain, bleeding, infection, damage to nearby structures, electrode migration, changes in speaking/swallowing/voice, need to device maintenance, neurologic injury. We discussed the need for programming of VNS devices, and we additionally discussed the expectations of success for VNS, based on clinical data. I did note that it was unlikely that the patient would become seizure free and that he would need to continue to use antiseizure medications while on VNS therapy. The patient and his sister were interested in moving forward. Consent was signed after discussion of risks, benefits, and alternatives. Plan: L VNS implantation OPAC I spent approximately 45 minutes of time that were dedicated to clinical evaluation, including [id number] time; counseling and education; chart completion; reviewing of medical records, labs, imaging, and medications; and placing orders and referrals. Over 50% of the time spent was in counseling/coordination of the issues as described in the assessment and plan. I answered the patient's questions to the best of my ability. Patient understands and agrees with the plan. documented in this encounter [facility] 04-05-2023 History and physical note [facility]psy [facility] HISTORY OF PRESENT ILLNESS Pancho Mcpherson is a 62 y.o. right handed male with a history of Developmental delay, Essential hypertension, Hypothyroidism, Sleep apnea on CPAP, Cervical cord stenosis complicated with myelomalacia s/p corrective surgery, with residual leg weakness (wheel chair dependent) who presents to [facility] for evaluation on drug resistant focal epilepsy. Patient was accompanied by sister and caregivers from the facility. He was referred by Dr. Hare. PERTINENT SEIZURE HISTORY His seizures after having an event of high fever around age of 6 months. Thereafter his seizures have always remain difficult to control with anti seizure drug therapy. As caregiver, his seizures are characterized as loud vocalization followed by limb stiffening and unresponsiveness lasting for a minute followed by post ictal period of confusion and sleepiness. Denies any well defined prodrome or aura (visual, auditory or olfactory hallucinations, taste sensation, ning vu etc..) Seizure occurrence time: Denies any diurnal or nocturnal (either during sleep or upon awakening) pattern. Triggers: Denies any known triggers like stress, sleep deprivation, menses, flashing lights etc.. Frequency: 2-3 per month Longest duration of seizure freedom: Unknown History of status epilepticus : No documented history of SE or history for cluster of seizures. Seizure risk factors: Developmental delay: As per sister, Born on term thorough normal vaginal delivery. Achieved developmental milestones (language and motor milestones) on time but then started to regress cognitively and also required physical therapy . Denies any educational difficulties in school. History of febrile seizures: No. Brain infection (Meningitis or encephalitis) : No. Stroke : No. Head injury complicated with LOC : No. Alcohol withdrawal seizures : No. Use of cocaine or other recreational drugs: No. Family history of epilepsy: No. Anti-seizure drug (ASD) history: Current ASD: Pheno-Paola 32.4 mg -32.4 mg -64.8 mg , Dilantin 300 mg at bedtime , LEV 2000 mg BID , Lacosamide 200 mg BID Klonopin 1 mg at bedtime Past ASD : Rescue ASD : PERTINENT LABS, NEURODIAGNOSTIC STUDIES, NEUROIMAGING AND NEUROPSYCHOLOGICAL TESTING Prior evaluation: MRI brain : 2021 reported negative for any intracranial pathologies except for WM changes EEG : none in our system Nuclear imaging : REVIEW OF SYSTEMS As mentioned in HPI PHYSICAL EXAM BP 127/74 (BP Location: Left arm, BP Position: Sitting) Pulse 62 Temp 98 F (36.7 C) (Infrared) Ht 1.727 m (5' 8) Comment: verbal SpO2 95% BMI 27.37 kg/m Smoking Status Never General appearance: neat and pleasant to interact. Skin: No obvious cutaneous signs suggestive of neurocutaneous disorder. Head: Normal head circumference and facial features. Cardiovascular: Regular rate and rhythm. Lungs: Clear to auscultation bilaterally Mental status: Awake alert, could tell his name, name the objects and comprehend simple commands. But unable to do simple math. Neurological examination: CN II : Pupils: equal, round, reactive to light. Not able to focus for field testing CN III, IV and : Extra ocular muscle movements intact with no nystagmus. CN V: facial sensation is intact. CN VII: Facial movement and sensation full and symmetric CN VIII: Hearing intact to finger rub bilaterally CN IX and X: Symmetric palatal elevation. CN XI: Sternocleidomastoid strength intact CN XII: Tongue midline Motor : Increased muscle tone over bilateral arm. Dyspraxic arm movement was noted. Spontaneous limb movement with upper extremities (3/5) strength and (2/5) over lower extremities No pronator drift. Muscle stretch reflexes Bi BR Pat Ank R 2+ 2+ 3+ 3+ L 2+ 2+ 3+ 3+ Sensory: Sensation intact to pin prick. Gait and cerebellar testing: Wheel chair dependent Coordination is intact to finger to nose testing. ASSESSMENT AND PLAN #1 Drug resistant epilepsy #2 History of developmental delay #3 Cervical cord stenosis and myelomalacia s/p corrective surgery, wheel chair dependent #4 Polypharmacy with ASD Had lengthy discussion with patients sister and caregiver explaining the drug resistant nature of epilepsy and he is already on polypharmacy ASD therapy. I strongly recommend neuro modulation therapy with Vagal nerve stimulation over surgery and other invasive treatment options, with aim of seizure reduction of 50%. Common side effects of VNS, seizure reduction rate was discussed in depth. Other option is replacing the pheno paola with third generation ASD - Xcopri Also talked about polypharmacy related side effects Sister will think about these options and will get back to me. Do request routine EEG. Follow up in 6 months. Carrie García MD [facility] Department of Neurology - Epilepsy Division [address] [place] [address] - [facility] floor [place] [phone] . Total time to complete the visit : 60 minutes (record review, face to face encounter and documentation) . [facility] 04-05-2023 History and physical note [facility] Ep[facility]psy [facility] HISTORY OF PRESENT ILLNESS Pancho Mcpherson is a 62 y.o. right handed male with a history of Developmental delay, Essential hypertension, Hypothyroidism, Sleep apnea on CPAP, Cervical cord stenosis complicated with myelomalacia s/p corrective surgery, with residual leg weakness (wheel chair dependent) who presents to [facility] at [facility] for evaluation on drug resistant focal epilepsy. Patient was accompanied by sister and caregivers from the facility. He was referred by Dr. Hare. PERTINENT SEIZURE HISTORY His seizures after having an event of high fever around age of 6 months. Thereafter his seizures have always remain difficult to control with anti seizure drug therapy. As caregiver, his seizures are characterized as loud vocalization followed by limb stiffening and unresponsiveness lasting for a minute followed by post ictal period of confusion and sleepiness. Denies any well defined prodrome or aura (visual, auditory or olfactory hallucinations, taste sensation, ning vu etc..) Seizure occurrence time: Denies any diurnal or nocturnal (either during sleep or upon awakening) pattern. Triggers: Denies any known triggers like stress, sleep deprivation, menses, flashing lights etc.. Frequency: 2-3 per month Longest duration of seizure freedom: Unknown History of status epilepticus : No documented history of SE or history for cluster of seizures. Seizure risk factors: Developmental delay: As per sister, Born on term thorough normal vaginal delivery. Achieved developmental milestones (language and motor milestones) on time but then started to regress cognitively and also required physical therapy . Denies any educational difficulties in school. History of febrile seizures: No. Brain infection (Meningitis or encephalitis) : No. Stroke : No. Head injury complicated with LOC : No. Alcohol withdrawal seizures : No. Use of cocaine or other recreational drugs: No. Family history of epilepsy: No. Anti-seizure drug (ASD) history: Current ASD: Pheno-Paola 32.4 mg -32.4 mg -64.8 mg , Dilantin 300 mg at bedtime , LEV 2000 mg BID , Lacosamide 200 mg BID Klonopin 1 mg at bedtime Past ASD : Rescue ASD : PERTINENT LABS, NEURODIAGNOSTIC STUDIES, NEUROIMAGING AND NEUROPSYCHOLOGICAL TESTING Prior evaluation: MRI brain : 2021 reported negative for any intracranial pathologies except for WM changes EEG : none in our system Nuclear imaging : REVIEW OF SYSTEMS As mentioned in HPI PHYSICAL EXAM BP 127/74 (BP Location: Left arm, BP Position: Sitting) Pulse 62 Temp 98 F (36.7 C) (Infrared) Ht 1.727 m (5' 8) Comment: verbal SpO2 95% BMI 27.37 kg/m Smoking Status Never General appearance: neat and pleasant to interact. Skin: No obvious cutaneous signs suggestive of neurocutaneous disorder. Head: Normal head circumference and facial features. Cardiovascular: Regular rate and rhythm. Lungs: Clear to auscultation bilaterally Mental status: Awake alert, could tell his name, name the objects and comprehend simple commands. But unable to do simple math. Neurological examination: CN II : Pupils: equal, round, reactive to light. Not able to focus for field testing CN III, IV and : Extra ocular muscle movements intact with no nystagmus. CN V: facial sensation is intact. CN VII: Facial movement and sensation full and symmetric CN VIII: Hearing intact to finger rub bilaterally CN IX and X: Symmetric palatal elevation. CN XI: Sternocleidomastoid strength intact CN XII: Tongue midline Motor : Increased muscle tone over bilateral arm. Dyspraxic arm movement was noted. Spontaneous limb movement with upper extremities (3/5) strength and (2/5) over lower extremities No pronator drift. Muscle stretch reflexes Bi BR Pat Ank R 2+ 2+ 3+ 3+ L 2+ 2+ 3+ 3+ Sensory: Sensation intact to pin prick. Gait and cerebellar testing: Wheel chair dependent Coordination is intact to finger to nose testing. ASSESSMENT AND PLAN #1 Drug resistant epilepsy #2 History of developmental delay #3 Cervical cord stenosis and myelomalacia s/p corrective surgery, wheel chair dependent #4 Polypharmacy with ASD Had lengthy discussion with patients sister and caregiver explaining the drug resistant nature of epilepsy and he is already on polypharmacy ASD therapy. I strongly recommend neuro modulation therapy with Vagal nerve stimulation over surgery and other invasive treatment options, with aim of seizure reduction of 50%. Common side effects of VNS, seizure reduction rate was discussed in depth. Other option is replacing the pheno paola with third generation ASD - Xcopri Also talked about polypharmacy related side effects Sister will think about these options and will get back to me. Do request routine EEG. Follow up in 6 months. Carrie García MD [facility] Department of Neurology - Epilepsy Division [address] [place] [address] - [address] floor [place] [phone] . Total time to complete the visit : 60 minutes (record review, face to face encounter and documentation) . documented in this encounter [facility] 09-06-2022 History of Present illness Narrative NEUROSURGERY POST OPERATIVE PROGRESS NOTE Name: Pancho Mcpherson : 1960 Age: 62 y.o. Attending: Dr. Youngblood Pancho Mcpherson is s/p C3-5 ACDF on 05/26/21. HPI: Pancho Mcpherson is a 62 y.o. male with a PMH significant for Developmental delay, Essential hypertension, benign, Hyperlipidemia, Hypothyroidism, Intractable epilepsy, Mental retardation, Prostate enlargement, Recurrent UTI, Seizure, Seizures, and Sleep apnea. Chart reviewed and incorporated. Patient had been experiencing worsening weakness and was found to have severe multilevel cervical stenosis with cord compression. Patient underwent above procedure. He presents today for routine follow-up. Patient presents with 2 caregivers today. Patient's caregivers reports his condition has been stable and reports no significant changes since last appointment. Patient completed physical therapy which caregivers reported went well. Patient's caregivers reports continued excellent strength in upper extremities with continued weakness in lower extremities and inability to ambulate. Patient's caregivers reports he cannot bear weight to stand. Patient reports some neck pain that has worsened since last appointment. Patient denies any hand dysfunction or issues with hands and upper extremity strength. Patient denies any other changes or symptoms since his last appointment with Dr. Youngblood. Home Medications: Please see chart review Past Medical History: Past Medical History: Diagnosis Date Developmental delay Essential hypertension, benign Hyperlipidemia Hypothyroidism Intractable epilepsy Mental retardation Prostate enlargement Recurrent UTI Seizure Seizures Sleep apnea Review of Systems: ROS negative except for those listed in HPI. History obtained from patient and chart. Physical Examination: Vital Signs: Vitals: 09/06/22 0934 BP: 114/72 Pulse: 77 Temp: 99.8 degrees F (37.7 degrees C) TempSrc: Infrared SpO2: 92% Weight: 81.6 kg (180 lb) Height: 1.727 m (5' 8) Body mass index is 27.37 kg/m . 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 Assessment and Plan: ICD-10-CM 1. S/P cervical spinal fusion Z98.1 2. Neck pain M54.2 - No significant reported changes in symptoms since last appointment - Dr. Youngblood discussed surgical options at last appointment, patient's family still does not wish to proceed with any other surgical intervention at this time - Followup xrays illustrate stable intact hardware - PT completed - Will continue to monitor, discussed with Dr. Youngblood - Advised to call the office should any concerns arise or questions to be seen sooner - F/U in 1 year with repeat x-rays Celina Esquivel PA-C Physician Orthodontist [employer] Business [employer], Department of Neurosurgery [facility] documented in this encounter [facility] 06-09-2022 History of Present illness Narrative Chief Complaints SZ HPI Pancho Mcpherson is a 62 y.o. year old male with has a past medical history of Developmental delay, Essential hypertension, benign, Hyperlipidemia, Hypothyroidism, Intractable epilepsy, Mental retardation, Prostate enlargement, Recurrent UTI, Seizure, Seizures, and Sleep apnea. He has no past medical history of Pacemaker. who presents to the office for follow up for seizure . Patient is accompanied by his pharmacy care coordinator. Since last visit, patient's seizure symptoms have been stable. He has not had more seizures since I increased dose of Vimpat to 200 mg BID. He is still taking Dilantin, Phenobarbital, Keppra, and Clonazepam. Patient has a sleepiness and hand shaking. The patient has had a right leg weakness since he had a cervical spine surgery. It slowly getting worse. He is still not able to walk. MRI showed a severe C4-5 spinal stenosis and cord myelomalacia. He was seen by spinal surgeon and surgery was recommended. There is no double vision, blurry vision, facial weakness, vertigo, difficulty speech, difficulty swallow, muscle weakness and sensory symptoms. Medical History: has a past medical history of Developmental delay, Essential hypertension, benign, Hyperlipidemia, Hypothyroidism, Intractable epilepsy, Mental retardation, Prostate enlargement, Recurrent UTI, Seizure, Seizures, and Sleep apnea. He has no past medical history of Pacemaker. Surgical History: has a past surgical history that includes reduction open orbital floor fx with implant or bone graft (Right, 06/05/2014); laparotomy exploratory (2019); leg surgery; eye surgery (Right); fusion anterior interbody cervical (N/A, 05/26/2021); graft spine surgery only allograft anterior add-on px (N/A, 05/26/2021); insertion spinal instrumentation anterior add-on px (ip only) (N/A, 05/26/2021); fusion anterior interbody each addl interspace add-on px (N/A, 05/26/2021); monitoring neurophysiology intraoperative add-on px (N/A, 05/26/2021); microsurgical techniques w/ operating microscope add-on px (N/A, 05/26/2021); discectomy anterior cervical (N/A, 05/26/2021); removal spinal instrumentation anterior (N/A, 05/26/2021); and fusion anterior interbody cervical each addl interspacex (N/A, 05/26/2021). Family History: family history includes Alcoholism in his brother and father; Lipid Disorder in his mother; Schizophrenia in his father. Social History: reports that he has never smoked. He has never used smokeless tobacco. He reports that he does not drink alcohol and does not use drugs. Medications: has a current medication list which includes the following prescription(s): acetaminophen, alum/mag hydrox.-simethicone, atorvastatin, calcium carbonate, cetirizine, vitamin d-3, clonazepam, cyanocobalamin, docusate sodium, famotidine, iron, folic acid, lacosamide, levetiracetam, levothyroxine, levothyroxine, lidocaine, magnesium hydroxide (concentrate), metoprolol, paroxetine, paroxetine, phenobarbital, phenytoin extended, polyethylene glycol, quetiapine, quetiapine, quetiapine, senna, and tamsulosin hcl. Allergies: has No Known Allergies. Vitals: There were no vitals taken for this visit. Physical Examination: Mental status exam: Patient is alert. He follows commands. There is no aphasia and apraxia. Cranial Nerves: pupils are equal and round, extra occular movements intact with no nystagmus, symmetric sensation on the face, symmetric facial strength, shoulder shrug is symmetric, tongue is in midline with full motions. Motor: left Upper and lower extremity strength is 5/5 throughout. Right UE 5-/5 and LE 4/5. Muscle tone and bulk are normal. Deep tendon reflexes are intact at the biceps, brachioradialis, patella and Achilles bilaterally. Babinski responses are flexion bilaterally. Sensation: Pin Prick, light touch, temperature, joint position, and vibration is intact through all extremities. Coordination: Finger to nose and rapid alternative movement are normal for both sides. There is no abnormal rebound and dysmetria. Gait: Not able to walk. Lab: Results for orders placed or performed in visit on 11/17/21 COPPER Result Value Ref Range COPPER, SERUM 115 70 - 175 mcg/dL ANGIOTENSIN CONVERTING ENZYME Result Value Ref Range Angiotensin Converting Enzyme 19 16 - 85 U/L LYME AB Result Value Ref Range Lyme Antibody Negative Negative FOLATE, SERUM Result Value Ref Range Folate >24.00 >5.38 ng/mL VITAMIN B12 Result Value Ref Range Vitamin B12 362 211 - 911 pg/mL TSH Result Value Ref Range TSH 2.852 0.550 - 4.780 uIU/mL SYPHILIS AB W/REFLEX RPR Result Value Ref Range Syphilis IgG/IGM Total Non Reactive Non Reactive SPE SERUM TOTAL PROTEIN Result Value Ref Range Total Protein 6.8 6.4 - 8.3 g/dL PROTEIN ELECTROPHORESIS Result Value Ref Range Albumin 3.5 3.5 - 5.0 g/dL Alpha 1 0.3 0.2 - 0.4 g/dL Alpha 2 0.8 0.5 - 1.0 g/dL Beta 1.1 0.5 - 1.1 g/dL Gamma 1.2 0.6 - 1.5 g/dL Spe Interpretation Normal serum protein electrophoresis pattern. Interpretation By: Chary Fernando MD IMMUNOGLOBULINS IGG IGA IGM Result Value Ref Range IGG 1,179 600 - 1,560 mg/dL IgA 586 (H) 90 - 410 mg/dL IGM 111 30 - 360 mg/dL IMMUNOFIXATION SERUM Result Value Ref Range Serum Immunofixation No monoclonal protein present. REVIEWED BY: Chary Fernando MD Assessment: 1. Seizure disorder since childhood. The patient has a complex partial seizure and secondary generalized tonic-clinic seizure. The etiology for seizure is still unknown. 2. Cervical spinal stenosis S/P surgery at C3-4. 3. MRDD. 4. Right leg weakness. It could be realted to the severe cervical spinal stensis and previous cord compression. Plan: 1. Continue Vimpat 200 mg BID for seizure. 2. Continue current doses of Keppra , Dilantin, and Phenobarbital. 3. Continue Clonazepam 1 mg at bedtime. 4. Safety education for seizures. 5. Follow up with spinal surgeon for the severe cervical spinal stenosis. 6. Neurological follow up has been scheduled in about 3 months. The patient was asked to call me with any seizure activities or side effects of medications. documented in this encounter [facility] 05-31-2022 Instructions Lemuel Sommer II, OD - 05/31/2022 9:59 AM EDT Assessment and Plan H25.813 Combined form of senile cataract of both eyes (primary encounter diagnosis) Comment: Central cataract both eyes oriented vertically. 2/3rds of pupil affected by cataract. Monitor for progression on one year. H52.03 Hyperopia, bilateral H52.223 Regular astigmatism, bilateral Comment: Recommend glasses to maximize visual performance. I have confirmed and edited as necessary the relevant ophthalmic history, ROS, and the neuro exam findings as obtained by others. I have seen and examined Pancho Mcpherson. I have discussed the case and the management of this patient's care with the Resident/Fellow, if applicable. I also have reviewed and agree with the assessment and plan as stated above and agree with all of its relevant components. Lemuel Sommer II, OD documented in this encounter [facility] 05-31-2022 History of Present illness Narrative Assessment and Plan H25.813 Combined form of senile cataract of both eyes (primary encounter diagnosis) Comment: Central cataract both eyes oriented vertically. 2/3rds of pupil affected by cataract. Monitor for progression on one year. H52.03 Hyperopia, bilateral H52.223 Regular astigmatism, bilateral Comment: Recommend glasses to maximize visual performance. I have confirmed and edited as necessary the relevant ophthalmic history, ROS, and the neuro exam findings as obtained by others. I have seen and examined Pancho Mcpherson. I have discussed the case and the management of this patient's care with the Resident/Fellow, if applicable. I also have reviewed and agree with the assessment and plan as stated above and agree with all of its relevant components. Lemuel Sommer II, OD documented in this encounter [facility] 03-09-2022 History of Present illness Narrative Chief Complaints SZ HPI Pancho Mcpherson is a 61 y.o. year old male with has a past medical history of Developmental delay, Essential hypertension, benign, Hyperlipidemia, Hypothyroidism, Intractable epilepsy, Mental retardation, Prostate enlargement, Recurrent UTI, Seizure, Seizures, and Sleep apnea. He has no past medical history of Pacemaker. who presents to the office for follow up for seizure . Patient is accompanied by his pharmacy care coordinator. Since last visit, patient's seizure symptoms have been stable. He had two seizures over 6 weeks. He is still taking Vimpat, Dilantin, Phenobarbital, Keppra, and Clonazepam. Patient denies any significant side effects. The patient has had a right leg weakness since he had a cervical spine surgery. It slowly getting worse. He is still not able to walk. MRI showed a severe C4-5 spinal stenosis and cord myelomalacia. He was seen by spinal surgeon yesterday. A surgery was recommended. There is no double vision, blurry vision, facial weakness, vertigo, difficulty speech, difficulty swallow, muscle weakness and sensory symptoms. Medical History: has a past medical history of Developmental delay, Essential hypertension, benign, Hyperlipidemia, Hypothyroidism, Intractable epilepsy, Mental retardation, Prostate enlargement, Recurrent UTI, Seizure, Seizures, and Sleep apnea. He has no past medical history of Pacemaker. Surgical History: has a past surgical history that includes reduction open orbital floor fx with implant or bone graft (Right, 06/05/2014); laparotomy exploratory (2019); leg surgery; eye surgery (Right); fusion anterior interbody cervical (N/A, 05/26/2021); graft spine surgery only allograft anterior add-on px (N/A, 05/26/2021); insertion spinal instrumentation anterior add-on px (ip only) (N/A, 05/26/2021); fusion anterior interbody each addl interspace add-on px (N/A, 05/26/2021); monitoring neurophysiology intraoperative add-on px (N/A, 05/26/2021); microsurgical techniques w/ operating microscope add-on px (N/A, 05/26/2021); discectomy anterior cervical (N/A, 05/26/2021); removal spinal instrumentation anterior (N/A, 05/26/2021); and fusion anterior interbody cervical each addl interspacex (N/A, 05/26/2021). Family History: family history includes Alcoholism in his brother and father; Lipid Disorder in his mother; Schizophrenia in his father. Social History: reports that he has never smoked. He has never used smokeless tobacco. He reports that he does not drink alcohol and does not use drugs. Medications: has a current medication list which includes the following prescription(s): acetaminophen, alum/mag hydrox.-simethicone, atorvastatin, calcium carbonate, cetirizine, vitamin d-3, clonazepam, cyanocobalamin, docusate sodium, famotidine, iron, folic acid, lacosamide, levetiracetam, levothyroxine, levothyroxine, lidocaine, magnesium hydroxide (concentrate), metoprolol, paroxetine, paroxetine, phenobarbital, phenytoin extended, polyethylene glycol, quetiapine, quetiapine, quetiapine, senna, and tamsulosin hcl. Allergies: has No Known Allergies. Vitals: There were no vitals taken for this visit. Physical Examination: Mental status exam: Patient is alert and oriented x 3. He follows commands. There is no aphasia and apraxia. Cranial Nerves: pupils are equal and round, extra occular movements intact with no nystagmus, symmetric sensation on the face, symmetric facial strength, shoulder shrug is symmetric, tongue is in midline with full motions. Motor: left Upper and lower extremity strength is 5/5 throughout. Right UE 5-/5 and LE 4/5. Muscle tone and bulk are normal. Deep tendon reflexes are intact at the biceps, brachioradialis, patella and Achilles bilaterally. Babinski responses are flexion bilaterally. Sensation: Pin Prick, light touch, temperature, joint position, and vibration is intact through all extremities. Coordination: Finger to nose and rapid alternative movement are normal for both sides. There is no abnormal rebound and dysmetria. Gait: Not able to walk. Lab: Results for orders placed or performed in visit on 11/17/21 COPPER Result Value Ref Range COPPER, SERUM 115 70 - 175 mcg/dL ANGIOTENSIN CONVERTING ENZYME Result Value Ref Range ANGIOTENSIN CONVERTING ENZYME 19 16 - 85 U/L LYME AB Result Value Ref Range Lyme Antibody Negative Negative FOLATE, SERUM Result Value Ref Range Folate >24.00 >5.38 ng/mL VITAMIN B12 Result Value Ref Range Vitamin B12 362 211 - 911 pg/mL TSH Result Value Ref Range TSH 2.852 0.550 - 4.780 uIU/mL SYPHILIS AB W/REFLEX RPR Result Value Ref Range Syphilis IgG/IGM Total Non Reactive Non Reactive SPE SERUM TOTAL PROTEIN Result Value Ref Range Total Protein 6.8 6.4 - 8.3 g/dL PROTEIN ELECTROPHORESIS Result Value Ref Range Albumin 3.5 3.5 - 5.0 g/dL Alpha 1 0.3 0.2 - 0.4 g/dL Alpha 2 0.8 0.5 - 1.0 g/dL Beta 1.1 0.5 - 1.1 g/dL Gamma 1.2 0.6 - 1.5 g/dL Spe Interpretation Normal serum protein electrophoresis pattern. Interpretation By: Chary Fernando MD IMMUNOGLOBULINS IGG IGA IGM Result Value Ref Range IGG 1,179 600 - 1,560 mg/dL IgA 586 (H) 90 - 410 mg/dL IGM 111 30 - 360 mg/dL IMMUNOFIXATION SERUM Result Value Ref Range Serum Immunofixation No monoclonal protein present. REVIEWED BY: Chary Fernando MD Assessment: 1. Seizure disorder since childhood. The patient has a complex partial seizure and secondary generalized tonic-clinic seizure. The etiology for seizure is still unknown. 2. Cervical spinal stenosis S/P surgery at C3-4. 3. MRDD. 4. Right leg weakness. It could be realted to the severe cervical spinal stensis and previous cord compression. Plan: 1. Increase Vimpat to 150 mg BID for seizure. 2. Continue current doses of Keppra , Dilantin, and Phenobarbital. 3. Continue Clonazepam 1 mg at bedtime. 4. Safety education for seizures. 5. Follow up with spinal surgeon for the severe cervical spinal stenosis. 6. Neurological follow up has been scheduled in about 3 months. The patient was asked to call me with any seizure activities or side effects of medications. documented in this encounter [facility] 03-08-2022 History of Present illness Narrative CHIEF COMPLAINT: Followup ACDF. HISTORY OF PRESENT ILLNESS: Patient is a 61-year-old gentleman who underwent a 2 level ACDF with me for severe cervical stenosis. He states his arms are doing quite well. He has no pain at this time. He has had ongoing leg weakness. He has been doing physical therapy recently and they have seen some improvement over the past month. He has more physical therapy scheduled for next month. He had a repeat thoracic and cervical MRI and returns today to discuss findings. REVIEW OF SYSTEMS: See HPI. Otherwise, negative. PHYSICAL EXAMINATION: Patient is alert and interactive. Cranial nerves are grossly intact. The patient has good strength in the upper extremities. Strength in the lower extremities is 3/5 in hip flexion and quad. RESULTS REVIEWED: Patient has a thoracic MRI scan that shows no significant stenosis. Patient's prior MRI scan of his lumbar spine was reviewed that shows no stenosis. The patient's cervical MRI scan is of relatively poor quality, but does show some ongoing stenosis, particularly at C4-5. This does appear somewhat improved from prior to surgery. ASSESSMENT AND PLAN: The patient is a 61-year-old gentleman with a C3-C5 ACDF. He does have some ongoing stenosis at C4-5. We discussed surgical and nonsurgical options. Surgery for this would be a posterior decompression as he did not get complete relief of stenosis from his anterior approach. We discussed posterior cervical procedures more difficult to heals from and have a higher complication rate and significantly more pain. The family is not sure that more surgery would be a great idea for him at this time. We discussed that given his relatively good function of his hands and arms, not sure that this is the only reason that his legs are having weakness. He has seen some improvement with physical therapy recently and I encouraged aggressively continued physical therapy. The patient will follow up with repeat x-rays. All questions were answered. (DOC:[id number]) Carmelina Youngblood MD documented in this encounter [facility] 02-11-2022 History of Present illness Narrative Pancho is a pleasant 62-year-old male who is referred for rectal bleeding anemia. Patient was found to be anemic back in February 2022 when he presented to the ER hemoglobin at that time was 9.7 iron studies done around that time showed a serum iron of 14. With iron replacement his serum iron is come up to 78 and his current hemoglobin is now 13.2. He is having intermittent rectal bleeding which staff believes is a hemorrhoid.Patient lives in a intermediate has longstanding history of seizures currently controlled with Keppra, Klonopin and phenobarbital.He was in the emergency room and early September for fall work-up at that time included CT of his head and CT abdomen pelvis. CT abdomen pelvis revealed irregular contour of the gallbladder with wall thickening and inflammatory changes along with a discrete fluid collection measuring 4.8 cm adjacent to the gallbladder fundus. There was what appeared to be a small fistula measuring 5 mm concerning for abscess. General surgery was consulted and felt that he was stable as he had no white count no elevation in transaminases no elevated bilirubin and was actually asymptomatic. No follow-up was scheduled. He did see his family doctor who informed them that I would follow-up on these findings today.He has had no alterations bowel movements averages 1-2 bowel movements daily there is some bleeding if he strains blood is difficult to know if its coating or mixed in with the stool as he is incontinent. He denies any abdominal pain he is eating well denies any fevers. [facility] [id number] Work Phone: 11-17-2021 History of Present illness Narrative Chief Complaints SZ HPI Pancho Mcpherson is a 61 y.o. year old male with has a past medical history of Developmental delay, Essential hypertension, benign, Hyperlipidemia, Hypothyroidism, Intractable epilepsy, Mental retardation, Prostate enlargement, Recurrent UTI, Seizure, Seizures, and Sleep apnea. He has no past medical history of Pacemaker. who presents to the office for follow up for seizure . Patient is accompanied by his pharmacy care coordinator. Since last visit, patient's seizure symptoms have been stable. He had one possible seizure over one month. He is still taking Vimpat, Dilantin, Phenobarbital, Keppra, and Clonazepam. Patient denies any significant side effects. The patient has had a right leg weakness since he had a cervical spine surgery. It slowly getting worse. He could not walk for three weeks. He briseida a low back pain. There is no double vision, blurry vision, facial weakness, vertigo, difficulty speech, difficulty swallow, muscle weakness and sensory symptoms. Medical History: has a past medical history of Developmental delay, Essential hypertension, benign, Hyperlipidemia, Hypothyroidism, Intractable epilepsy, Mental retardation, Prostate enlargement, Recurrent UTI, Seizure, Seizures, and Sleep apnea. He has no past medical history of Pacemaker. Surgical History: has a past surgical history that includes reduction open orbital floor fx with implant or bone graft (Right, 06/05/2014); laparotomy exploratory (2019); leg surgery; eye surgery (Right); fusion anterior interbody cervical (N/A, 05/26/2021); graft spine surgery only allograft anterior add-on px (N/A, 05/26/2021); insertion spinal instrumentation anterior add-on px (ip only) (N/A, 05/26/2021); fusion anterior interbody each addl interspace add-on px (N/A, 05/26/2021); monitoring neurophysiology intraoperative add-on px (N/A, 05/26/2021); microsurgical techniques w/ operating microscope add-on px (N/A, 05/26/2021); discectomy anterior cervical (N/A, 05/26/2021); removal spinal instrumentation anterior (N/A, 05/26/2021); and fusion anterior interbody cervical each addl interspacex (N/A, 05/26/2021). Family History: family history includes Alcoholism in his brother and father; Lipid Disorder in his mother; Schizophrenia in his father. Social History: reports that he has never smoked. He has never used smokeless tobacco. He reports that he does not drink alcohol and does not use drugs. Medications: has a current medication list which includes the following prescription(s): acetaminophen, alum/mag hydrox.-simethicone, atorvastatin, calcium carbonate, cetirizine, vitamin d-3, docusate sodium, famotidine, folic acid, levetiracetam, levothyroxine, levothyroxine, lidocaine, magnesium hydroxide (concentrate), metoprolol, paroxetine, paroxetine, phenobarbital, phenobarbital, phenytoin extended, polyethylene glycol, quetiapine, quetiapine, quetiapine, senna, tamsulosin hcl, clonazepam, and lacosamide. Allergies: has No Known Allergies. Vitals: Blood pressure 138/85, pulse 88, height 1.727 m (5' 8), weight 85.3 kg (188 lb). Physical Examination: Mental status exam: Patient is alert and oriented x 3. He follows 2 steps commands. There is no aphasia and apraxia. Ophthalmologic exam: Fundi have sharp appearance bilaterally. Cranial Nerves: pupils are equal, round and reactive to light, extra occular movements intact with no nystagmus, symmetric sensation on the face, symmetric facial strength, symmetric elevation of the soft palate, shoulder shrug is symmetric, tongue is in midline with full motions. Motor: left Upper and lower extremity strength is 5/5 throughout. Right UE 5-/5 and LE 3/5. Muscle Tone and bulk are normal. Deep tendon reflexes are intact at the biceps, brachioradialis, patella and Achilles bilaterally. Babinski responses are flexion bilaterally. Sensation: Pin Prick, light touch, temperature, joint position, and vibration is intact through all extremities. Coordination: Finger to nose and rapid alternative movement are normal for both sides. There is no abnormal rebound and dysmetria. Gait: Not able to walk. Lab: Results for orders placed or performed during the hospital encounter of 08/06/21 URINE CULTURE Specimen: URINE - PANDEY CATH Result Value Ref Range Culture Growth Culture <100,000 CFU/mL Stenotrophomonas maltophilia (A) Culture <100,000 CFU/mL Citrobacter freundii complex (A) NOVEL CORONAVIRUS PCR Specimen: NASOPHARYNGEAL; Fluid/Swab Result Value Ref Range SARS-COV-2 NOT DETECTED NOT DETECTED [facility] 7 - ED Result Value Ref Range Sodium 138 133 - 143 mmol/L Potassium 4.1 3.5 - 5.0 mmol/L Chloride 101 98 - 108 mmol/L CO2 29 22 - 30 mmol/L Glucose 97 70 - 99 mg/dL BUN 13 7 - 22 mg/dL Creatinine 0.73 0.70 - 1.30 mg/dL Bun/Crea Ratio 18 Osmolality (Calculated) 289 278 - 305 mOsm/kg EST GFR,Non >=60 >=60 mL/min/1.73sqM EST GFR, >=60 >=60 mL/min/1.73sqM Anion Gap 12 7 - 17 mmol/L PHOSPHATE, INORGANIC Result Value Ref Range Phosphorous 4.0 2.2 - 4.6 mg/dL MAGNESIUM Result Value Ref Range Magnesium 2.2 1.6 - 2.6 mg/dL CALCIUM Result Value Ref Range Calcium 9.1 8.6 - 10.5 mg/dL HEPATIC FUNCTION PANEL Result Value Ref Range Albumin 4.0 3.5 - 5.0 g/dL Bilirubin Direct <0.1 <0.3 mg/dL Bilirubin Total 0.2 <1.5 mg/dL ALP 129 (H) 32 - 126 U/L ALT 38 10 - 52 U/L AST 24 14 - 40 U/L Total Protein 7.7 6.4 - 8.3 g/dL LIPASE Result Value Ref Range Lipase 37 11 - 82 U/L CBC AND ELECTRONIC DIFF Result Value Ref Range WBC Count 8.50 3.73 - 10.10 K/uL RBC Count 4.60 4.38 - 5.83 M/uL Hemoglobin 12.8 (L) 13.4 - 16.8 g/dL Hematocrit 39.8 39.6 - 48.8 % Mean Cell Volume 86.5 79.0 - 94.5 fL Mean Cell Hgb 27.8 26.1 - 33.3 pg Mean Cell Hgb Conc 32.2 31.9 - 36.5 g/dL RBC Distribution 13.2 10.9 - 14.3 % Platelet Count 283 146 - 337 K/uL Mean Platelet Volume 10.7 8.7 - 12.3 fL DIFF STATUS Electronic Differential Segs + Bands Auto 59.4 % Immature Grans % 0.4 % Lymphocyte % Auto 26.5 % Monocyte % Auto 9.3 % Eosinophil % Auto 3.8 % Basophil % Auto 0.6 % Nucleated RBC 0.0 <=0.2 /100 WBC Segs + Bands,Absolute Auto 5.06 1.57 - 6.19 K/uL Immature Grans Absolute <0.04 <=0.08 K/uL Abs Lymph Auto 2.25 0.83 - 3.57 K/uL Abs [place] Auto 0.79 0.24 - 0.93 K/uL Abs Eos Auto 0.32 0.00 - 0.48 K/uL Abs Baso Auto 0.05 0.00 - 0.09 K/uL URINALYSIS Result Value Ref Range Color Yellow Yellow Appearance Urine Clear Clear Glucose Urine Negative Negative Ketones Urine Negative Negative Specific [place] Urine 1.020 >1.001-<1.035 Blood Urine Moderate (A) Negative pH Urine 7.5 (A) 5.0 - 7.0 Protein Urine 30 mg/dL (A) Negative Urobilinogen Urine 0.2 E.U./dL 0.2 E.U/dL, 1.0 E.U/dL Nitrites Urine Negative Negative Leukocyte Esterase Trace (A) Negative RBC Urine >20 (A) 0 - 2 /HPF WBC Urine 0-5 0 - 5 /HPF Squamous/Epithelial Cells 0/hpf = 0+ 1/hpf = 1+, 2-5/hpf = 2+, 0/hpf = 0+, ABSENT Bacteria TRACE (A) ABSENT Assessment: 1. Seizure disorder since childhood. The patient has a complex partial seizure and secondary generalized tonic-clinic seizure. The etiology for seizure is still unknown. 2. Cervical spinal stenosis S/P surgery at C3-4. 3. MRDD. 4. Right leg weakness. We need rule out a stroke and Lumbar spinal stenosis. Plan: 1. Increase Vimpat to 100 mg BID for seizure. 2. Continue current doses of Keppra , Dilantin, and Phenobarbital. 3. Continue Clonazepam 1 mg at bedtime. 4. Safety education for seizures. 5. Order MRI of brain and L spine for the right leg weakness. 6. Neurological follow up has been scheduled in about 6 weeks. The patient was asked to call me with any seizure activities or side effects of medications. 7. Lab including Copper, B12, Folate, RPR, TSH, MICHELE, Immunofixation, and Lyme titer. documented in this encounter [facility] 11-08-2021 History of Present illness Narrative The patients caregiver (he's been in a respite home for 1mth) states that his transferring assist has recently increased from 2 assist to x4 assist. The goal is for him to go home with [facility] but his transferring skills have diminished so much that his going home safely has become a concern. C staffing availability (there is a ramp to enter the dwelling) has reduced which adds to this concern. Before going to the respite home he was in halfway post surgical rehab for roughly 10 months. A cervical fusion was performed to address sx including BLE weakness . Home-care rehab is not being done due to insurance limitations. Per the patient med care manager Pancho was using a walker for ambulation pre-surgery. The patient stated that he was in a chair for some time previous to surgery and cannot recall how long it has been since he used a walker. The physician is requesting BLE PRE in prep for hopeful transfer and ambulation status improvement. There grossly at least gr 3+ BLE hip/knee and ankle strength but grading more specifically is difficult due to patient inconsistent following of commands; There is also observable concurrent fascial and UE motor fasciculations with BLE MMT (neurological involvement??) There is no known neuromuscular HX that the patient urgent care knows aboutContinue with open to closed chain BLE pre for prep of improving transferring and gait abilities. The patient scored a 10 on the PHQ-9 instrument today. He is a max fall risk.It is this therapist's opinion that the indicated bed mobility, transfer and gait rehab would be more appropriately and more effectively done in a home-care setting at either the respite or personal residence.Clinical Presentation: Stable and/or uncomplicated characteristics.Level of Complexity: low [facility] Work Phone: 11-03-2021 History of Present illness Narrative Mr. Mcpherson is progressing poorly through their POC addressing neck pain s/p cervical fusion and significant LE weakness resulting in dependent mobility from caregivers at respite home. Pt has attended 6 sessions since 11/03/21. Pt does not demo any improvements however the PT to reassess was not the same PT who evaluated so can not be certain if regressions were made. Pt's caregiver states functional activities have not improved despite compliance with HEP and attendance with PT sessions. As pt has not made any progress during his POC he is being sent back to referring physician for f/u and to wait for MRI results. Explained that if pt begins noticing greater improvements or if anything changes to call back. Edcated to continue HEP. Pt will be placed on hold for 30 days. If pt does not make contact within 30 days he will be formally d/c from skilled PT. Pt and caregiver verbalized understanding and agreement to goals and POC. Thank you for this referral and please call [phone] with any questions or concerns. [facility] Work Phone: 11-03-2021 History of Present illness Narrative Per patients caregiver (he's been in a respite home for 1mth) states that his transferring assist has increased from 2 assist to x4 assist. The goal is for him to go home with [facility] but his transferring skills has diminished so much that his going home safely has become a concern due to [facility] staffing availability (there is a ramp to enter the dwelling). Before going to the respite home he was in radiographer cardiac catheterization post surgical rehab for roughly 10 months. The surgery was a cervical fusion performed at least due to BLE weakness. Home-care is not being done due to insurance. Per the patient med care manager Pancho was using a walker for ambulation pre-surgery. The patient stated that he was in a chair for some time previous to surgery and cannot recall how long it has been since he used a walker. The physician is requesting BLE PRE in prep for hopeful transfer and ambulation status improvement. There is at least grossly 3+ BLE hip/knee and ankle strength but grading more specifically is difficult due to patient following commands; There is also observable concurrent fascial and UE motor fasiculations with BLE MMT (neurological involvement??) There is no known neuromuscular HX that the patient urgent care knows aboutContinue with open to closed chain BLE pre for prep of transferring and gait abilities. The patient scored a 10 on the PHQ-9 instrument today. He is a max fall risk.It is this therapist's opinion that the indicated bed mobility, transfer and gait rehab would be more appropriately and more effectively done in a HC setting either the respite or personal residence.Clinical Presentation: Stable and/or uncomplicated characteristics.Level of Complexity: low [facility] Work Phone: 10-16-2021 History of Present illness Narrative Continues to need tactile cues for movements and verbal reminders of the exercises being completed. Allowed patient to choose the exercise order today, which seemed to make patient more cooperative to the exercise. Very mild contraction with toe taps when foot was placed on the dynadisc R and 3/5 strength on the L foot. Patient was more receptive to cues. today. Added peach band this date with hip ABD with no contraction on the R and minimal contraction on the L. Patient was fatigued and only able to complete 30 min. [facility] Work Phone: 10-12-2021 History of Present illness Narrative Presents with signs/symptoms consistent with dx of s/p cervical spinal fusion, weakness both LE, OA spine with radic, cervical region, general weakness: decreased LE strength, impaired functional mobility. Would benefit from skilled PT to increase LE strength, improve functional mobility for return to PLOF: increased ease with transfers. Barriers to progress in PT include chronicity of symptoms, previous round of PT in October 2021 with no significant improvement noted. At today's evaluation, had pt complete w/c mobility using feet with assist from PT with steering and R LE motion. Encouraged caregiver/patient to continue with HEP previously issued during last bout of PT (seated heel raises, toe raises, october, hip add, PF, hip abd with assist from PT/caregiver).Pt would be most appropriate for home heatlh PT to improve functional mobility inside of the home; however, per caregiver, insurance does not cover home health PT. Pt may need bracing to help manage knee flexion contractures (per caregiver trialed sit to stand transfer device but pt's legs were unable to fully straighten and weight bear in device). Pt has w/c, but due to decline, would likely benefit from new w/c for optimal positioning. Pt has bath chair, akhil and electric bed at home, may benefit from standing frame for WBing through legs to improve bone density/decrease fracture risk.The physical therapist of record is the therapist who assumes primary responsibility for patient management and as such is held accountable for the coordination, continuation and progression of the POC.This patient s care and PT of record will be transferred from Meeta Womack PT to Yolette Trosterud PT effective as of 01/31/22.Clinical Presentation: Stable and/or uncomplicated characteristics.Level of Complexity: lowProblem List: activity limitations, ADLs/IADLs/self care skills, decreased functional level, decreased knowledge of HEP, fall risk, flexibility, gait/locomotion, pain, participation restrictions, posture, range of motion/joint mobility, strength and transfers. [facility] Work Phone: 07-15-2021 History of Present illness Narrative Patient presents to the office today to Establish with Recurrent UTI and Urgency. Patient has had 3 UTI's in the past year...Patient is on a Methenamine BID for frequent UTI's..... LUTs are chronic and mild. Having frequency. Denies urgency. Weak stream at times... Denies dysuria and hematuria..CYSTO done in 07/05... Nocturia x1 but wakes up wet.....No recent PSA.... Caffeine does worsen LUTs.. Myrbetriq and Flomax for LUTs..Spinal Stenosis Sx 2-3 years ago... [facility] Work Phone: 02-09-2020 History of Present illness Narrative Patient is here for 6 month f/u for recurrent UTI'S. Methenamine BID for frequent UTI's..... LUTs are chronic and mild. Having frequency. Denies urgency. Weak stream at times... Denies dysuria and hematuria..CYSTO done in 07/05... Nocturia x1 but wakes up wet.. Caffeine does worsen LUTs.. Myrbetriq and Flomax for LUTs..Spinal Stenosis Sx 2-3 years ago...Most recent PSA was 1.00 on 02/03. [facility] Work Phone: Evaluation note Diagnosis Seizure disorder- Primary Unspecified epilepsy without mention of intractable epilepsy Cervical spinal stenosis Spinal stenosis in cervical region Development delay Unspecified delay in development Encounter for screening for infections with a predominantly sexual mode of transmission Anxiety disorder, unspecified type Acute focal neurological deficit Other symptoms involving nervous and musculoskeletal systems Spinal stenosis, lumbosacral region [facility] Seizure disorder- Primary Unspecified epilepsy without mention of intractable epilepsy Cervical spinal stenosis Spinal stenosis in cervical region Development delay Unspecified delay in development [facility] Diagnosis S/P cervical spinal fusion- Primary Arthrodesis status [facility] Diagnosis Combined form of senile cataract of both eyes- Primary Hyperopia, bilateral Regular astigmatism, bilateral [facility] Diagnosis Seizure disorder- Primary Unspecified epilepsy without mention of intractable epilepsy Cervical spinal stenosis Spinal stenosis in cervical region Development delay Unspecified delay in development Spinal stenosis, cervical region [facility] S/P cervical spinal fusion- Primary Arthrodesis status Neck pain Cervicalgia [facility] Diagnosis S/P cervical spinal fusion Arthrodesis status Weakness of both lower extremities [facility] Diagnosis Seizure disorder- Primary Unspecified epilepsy without mention of intractable epilepsy [facility] Diagnosis Seizure disorder Unspecified epilepsy without mention of intractable epilepsy [facility] Diagnosis Seizures- Primary Other convulsions [facility] Diagnosis Combined form of senile cataract of both eyes- Primary Physiologic anisocoria Anisocoria Hyperopia, bilateral Presbyopia [facility] Diagnosis Abnormal CT scan, gallbladder- Primary documented in this encounter [facility] Work Phone: Evaluation note* Diagnosis Primary hypertension- Primary Unspecified essential hypertension Mixed hyperlipidemia Vitamin D deficiency, unspecified Acquired hypothyroidism Unspecified hypothyroidism Benign prostatic hyperplasia with urinary obstruction and other lower urinary tract symptoms Undifferentiated schizophrenia (CMS/HCC) Moderate episode of recurrent major depressive disorder (CMS/HCC) Bilateral leg weakness Muscle weakness (generalized) Spinal stenosis, lumbar region without neurogenic claudication Seizures (CMS/HCC) Other convulsions S/P cervical spinal fusion Arthrodesis status Intellectual disability Unspecified mental retardation Generalized idiopathic epilepsy and epileptic syndromes, intractable, without status epilepticus (CMS/HCC) Dementia with other behavioral disturbance, unspecified dementia severity, unspecified dementia type (CMS/HCC) Obstructive sleep apnea syndrome Obstructive sleep apnea (adult) (pediatric) documented in this encounter [facility] Work Phone: Evaluation note* Diagnosis Preop exam for internal medicine- Primary Other specified pre-operative examination Generalized idiopathic epilepsy and epileptic syndromes, intractable, without status epilepticus Obstructive sleep apnea syndrome Obstructive sleep apnea (adult) (pediatric) Hypothyroidism, unspecified type Hyperlipidemia, unspecified hyperlipidemia type Essential hypertension Unspecified essential hypertension Development delay Unspecified delay in development Intellectual disability Unspecified intellectual disabilities Abnormal involuntary movement Abnormal involuntary movements Gastroesophageal reflux disease without esophagitis Esophageal reflux Prediabetes Other abnormal glucose Seizures Other convulsions [facility] Diagnosis Aftercare following surgery- Primary Encounter for other specified aftercare Seizures Other convulsions Aftercare following surgery Encounter for other specified aftercare [facility] 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, without mention of intractable epilepsy Encounter for adjustment and management of neurostimulator [facility] Diagnosis Generalized idiopathic epilepsy and epileptic syndromes, intractable, without status epilepticus- Primary Encounter for adjustment and management of neurostimulator [facility] Diagnosis Combined form of senile cataract of both eyes- Primary Physiologic anisocoria Anisocoria [facility] Diagnosis Generalized idiopathic epilepsy and epileptic syndromes, intractable, without status epilepticus- Primary Encounter for adjustment and management of neurostimulator Development delay Unspecified delay in development [facility] Diagnosis Allergic eczema- Primary Contact dermatitis and other eczema, due to unspecified cause Nail fungus documented in this encounter [facility] Work Phone: Evaluation note* Diagnosis Benign prostatic hyperplasia with urinary obstruction and other lower urinary tract symptoms- Primary Urinary frequency Urinary incontinence, unspecified type documented in this encounter [facility] Work Phone: Evaluation note* Diagnosis Peripheral vascular disease, unspecified (HCC)- Primary Peripheral vascular disease, unspecified Onychomycosis Dermatophytosis of nail documented in this encounter [facility] note* Diagnosis Generalized idiopathic epilepsy and epileptic syndromes, intractable, without status epilepticus- Primary S/P placement of VNS (vagus nerve stimulation) device Other postprocedural status Encounter for adjustment and management of neurostimulator [facility] Diagnosis Onychomycosis- Primary Dermatophytosis of nail Peripheral vascular disease, unspecified (HCC) Peripheral vascular disease, unspecified documented in this encounter [facility] note* Diagnosis Breakthrough seizure (Multi)- Primary documented in this encounter [facility] Work Phone: Evaluation note* Diagnosis Seizures (Multi)- Primary Other convulsions documented in this encounter [facility] Work Phone: Evaluation note* Diagnosis Screening for diabetes mellitus- Primary Vitamin D deficiency B12 deficiency Screening for lipid disorders Mixed hyperlipidemia Primary hypertension Unspecified essential hypertension Elevated blood sugar Other abnormal glucose Acquired hypothyroidism Unspecified hypothyroidism Vitamin D deficiency, unspecified Benign prostatic hyperplasia with urinary obstruction and other lower urinary tract symptoms Moderate episode of recurrent major depressive disorder Undifferentiated schizophrenia (Multi) Osteoarthritis of cervical spine with myelopathy Development delay Unspecified delay in development Dementia with other behavioral disturbance, unspecified dementia severity, unspecified dementia type Spinal stenosis, lumbar region without neurogenic claudication Recurrent falls General weakness Other malaise and fatigue documented in this encounter [facility] Work Phone: Evaluation note* Diagnosis Generalized idiopathic epilepsy and epileptic syndromes, intractable, without status epilepticus- Primary Encounter for adjustment and management of neurostimulator [facility] Diagnosis Combined form of senile cataract of both eyes- Primary Physiologic anisocoria Anisocoria Hyperopia, bilateral Presbyopia [facility] Diagnosis Generalized idiopathic epilepsy and epileptic syndromes, intractable, without status epilepticus- Primary Encounter for adjustment and management of neurostimulator [facility] Diagnosis Benign prostatic hyperplasia with urinary obstruction and other lower urinary tract symptoms Urinary frequency Urinary incontinence, unspecified type documented in this encounter [facility] Work Phone: Evaluation note* Diagnosis Onychomycosis- Primary Dermatophytosis of nail Peripheral vascular disease, unspecified (HCC) Peripheral vascular disease, unspecified documented in this encounter 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) Other persistent mental disorders due to conditions classified elsewhere JAIME on CPAP Multilevel degenerative disc disease Benign prostatic hyperplasia with urinary obstruction and other lower urinary tract symptoms Mood disorder due to medical condition Hypertension goal BP (blood pressure) < 140/90 Unspecified essential hypertension Hyperlipidemia LDL goal <100 Other and unspecified hyperlipidemia Acquired hypothyroidism Unspecified hypothyroidism Gastroesophageal reflux disease, unspecified whether esophagitis present [facility] S/P cervical spinal fusion Arthrodesis status Weakness of both lower extremities [facility] Diagnosis Refractory epilepsy (HCC)- Primary Hypertension goal BP (blood pressure) < 140/90 Unspecified essential hypertension Hyperlipidemia LDL goal <100 Other and unspecified hyperlipidemia Acquired hypothyroidism Unspecified hypothyroidism Abnormal finding of blood chemistry, unspecified [facility] Hypertension goal BP (blood pressure) < 140/90- Primary Unspecified essential hypertension [facility] Diagnosis Peripheral vascular disease, unspecified- Primary [facility] Diagnosis Generalized idiopathic epilepsy and epileptic syndromes, intractable, without status epilepticus- [facility] Diagnosis Calculus of GB w acute and chronic cholecyst w/o obstruction- Primary [facility] Diagnosis Epilepsy- Primary Unspecified epilepsy without mention of intractable epilepsy Generalized idiopathic epilepsy and epileptic syndromes, intractable, without status epilepticus [facility] Diagnosis 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)- Primary Other persistent mental disorders due to conditions classified elsewhere Mood disorder due to medical condition Profound intellectual disability Profound mental retardation Refractory epilepsy (HCC) S/P cholecystectomy Other acquired absence of organ Chronic constipation Unspecified constipation Hemorrhoids, unspecified hemorrhoid type Gastroesophageal reflux disease, unspecified whether esophagitis present JAIME on CPAP Hypertension goal BP (blood pressure) < 140/90 Unspecified essential hypertension Hyperlipidemia LDL goal <100 Other and unspecified hyperlipidemia Acquired hypothyroidism Unspecified hypothyroidism Healthcare maintenance Tuberculosis screening Screening examination for pulmonary tuberculosis Screening for malignant neoplasm of prostate Screening for HIV (human immunodeficiency virus) Special screening examination for other specified viral diseases Need for hepatitis C screening test Special screening examination for other specified viral diseases [facility] Chronic constipation Unspecified constipation [facility] Diagnosis Onychomycosis- Primary Dermatophytosis of nail Peripheral vascular disease, unspecified [facility] Diagnosis Benign prostatic hyperplasia with lower urinary tract symptoms, symptom details unspecified- Primary Urinary hesitancy documented in this encounter 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) Hypertension goal BP (blood pressure) < 140/90 Unspecified essential hypertension Acquired hypothyroidism Unspecified hypothyroidism Benign prostatic hyperplasia with urinary obstruction and other lower urinary tract symptoms [facility] Diagnosis Encounter for colorectal cancer screening- Primary [facility] Diagnosis Acquired hypothyroidism- Primary Unspecified hypothyroidism [facility] Diagnosis Rectal bleeding- Primary Hemorrhage of rectum and anus [facility] illness NarrativePatient identified by name and date of . Patient required mod-max assist for movements on the R and throughout treatment. He demonstrated difficulty with coordinating all movements with verbal and tactile cues and required assist for movements. [facility] Work Phone: History of Present illness NarrativePatient identified by name and date of . Patient in w/c during treatment, patient attempted several exercises with minimal active movements on B LE's with less on L verses R, and max verbal cues. He demonstrated tremors in UEs with attempts to move LE's. [facility] Work Phone: History of Present illness NarrativePt was in W/C for full treatment. PT spoke with patient regarding declining strength on the R and to try to get F/U with neuro since symptoms have worsened since his last visit. Completed HS stretch this date with mild - mod HS tightness B. Seated marches completed Independent on the L and approx 25% help from SR VICE PRESIDENT for first 3 reps on the R. When cued to try LAQ or any knee extension exercises, patient would flex the knee and also the L arm with tremors present in the L hand. Used B input from SR VICE PRESIDENT on outer leg during active hip ABD. Patient could complete contraction on the L when therapist was doing input on the R. When SR VICE PRESIDENT stopped putting input through the R patient had diminished to no contraction on the L with hip ABD.[facility] Work Phone: History of Present illness NarrativeTactile cues given for hip ABD. SR VICE PRESIDENT moved hands further away from the LE's during with patient trying to touch the therapist's hands with his legs. Unable to complete knee extension actively, on the R and L. 100% assist from SR VICE PRESIDENT for R LE PRE's and active ROM. Continues with flexion biased synergy patterns. Patient was fatigued and only able to complete 28 min.[facility] Work Phone: History of Present illness NarrativePatient was not very willing to complete PT today when he arrived for therapy. Was calling caregiver derogatory names upon arrival. Patient agreed to do therapy this date. Did not have as much movement this date on the L with exericses and no active movement today on the R. Had to cue patient numerous times for the exercise throughout each exercise today. Added rolling the bolster back and forth this date with patient being able to fully roll forward 2x with using the L LE.[facility] Work Phone: History of Present illness NarrativePatient identified by name and date of . Patient required tactile, visual and verbal cues for all movements with Corina at times to start movement. He demonstrated increased ease with exercises with exercises with targets and continuos cues. He demonstrated fatigue at end of treatment.[facility] Work Phone: History of Present illness NarrativePatient identified by name and date of . Patient demonstrated increased ease and willingness to preform exercises this date. He was able to increase with speed and decrease with assistances withpropelling with w/c.[facility] Work Phone: History of Present illness NarrativePatient identified by name and date of . Pancho required max cues for movements at start of treatment. He was able to progress with band strength and demonstrated improved I with use of LE's to propel his walker.[facility] Work Phone: History of Present illness NarrativePatient identified by name and date of . Patient demonstrated increased participation this date. He demonstrated increased ease with cueing with all exercises and increased band strengthening.[facility] Work Phone: History of Present illness NarrativePatient identified by name and date of . Patient demonstrated increased participation this date. He demonstrated increased ease with cueing with all exercises and increased band strengthening.[facility] Work Phone: History of Present illness Narrative* Patient identified by name and date of . Pt and nurse arrived in the parking lot and this PT could see them sitting outside the front entrance for * 15 min before coming in. Nurse reported pt wanted to call his uncle and they were trying to clarifysome things so they were about 15-20 min late. Pt and pt's nurse note he is doing better and havingless pain overall since starting therapy and after reassessment this date, pt does demo improved MMT of BLE's. He still has difficulty with motor control and is dependent on akhil lift for transfers.Difficulty with some communication this date as this is first time this PT has worked with this patient. Pt did request continued therapy and this PT feels he would benefit from continued skilled PT with progression of possible transfer training and progress strengthening for BLE's, core musculature, as well as BUE's this date. [facility] Work [facility]: History of Present illness NarrativePatient identified by name and date of . Patient verbalized frustration at start of treatment that ceased quickly. He demonstrated increased ease with marching and propelling w/c at end of session. He was able to progress with UE strengthening with tactile cues for proper form.[facility] Work Phone: History of Present illness Narrative* Patient was unwilling to complete PT at start but then ended up. * Able to complete chair w/c scoots from clinic to exit. * Cues for proper technique with PRE's. * Patient was able to complete UBE this date and really enjoyed using it. [facility] Work Phone: History of Present illness NarrativePatient identified by name and date of . Patient was in unpleasant mood on arrival. He required cues to preform exercises with full ability and for form. He demonstrated decreased ability to propel w/c with R LE this date verses last session.[facility] Work Phone: History of Present illness Narrative* Patient arrived this date willing to participate in treatment and was excited about adding Nustep this date. * Completed UBE first d/t neeing assistance with moving Nustep machine at start of session, will D/C next visit. * Had patient use both UE and LE's on Nustep but could not get the machine moving when just legs wereattempted. * Improved height of leg lift with seated LAQ/Marches this date on the L, continues to need VC/tactile cues for the L. * Observed R UE lifting this date again when attempt was made on the R LE to lift the leg. * Responded well to cues to sit more upright in chair and was able to complete Independently. * Pt gave max effort throughout session and was fatigued and challenged by end of session. [facility] Work Phone: History of Present illness NarrativePatient identified by name and date of . Patient demonstrated increased ease with activities and willingness to patriciate and follow directions. He demonstrated increased ease with hip flexion with prompted. He continues to demonstrate difficulty with knee ext with LAQ's.[facility] Work Phone: History of Present illness NarrativePatient identified by name and date of . Patient demonstrated increased ease with activities and willingness to patriciate and follow directions. He demonstrated increased ease with hip flexion with prompted. He continues to demonstrate difficulty with knee ext with LAQ's.[facility] Work Phone: History of Present illness Narrative* Patient identified by name and date of . Pt reassessed this date by supervising PT with improvements noted in overall functional mobility and improved cooperation with skilled PT recently. Pt continues to demo increased weakness and decreased used of RLE compared to LLE, but able to demo improved MMT in BLE's compared to last re-assessment. Due to nature of pt's medical history and chronicity of many of his medical diagnosis, pt continues to respond well and benefits from continued skilledPT in the outpatient setting at this time. Pt and pt's caregiver note continued compliance with HEPand continued attempts at standing with akhil lift at facility, with patient still unable to standin g fully erect for prolonged periods. Significant difficulty with maneuvering BLE's during standing to better assist with transfers. Pt primmarily uses LLE to pull/push himself in W/C so this PT used stretch strap to support LLE in air and increase use of RLE with W/C mobility this date. * Patient was able to complete today's treatment with some difficulty. [facility] Work Phone: History of Present illness Narrative* Patient was being uncooperative with caregiver and therapist upon arrival into the clinic. Patient was 20 minutes late d/t caregiver trying to get him into the building. Was not very willing to participate in many therapy activities. Did get patient to go a lengthy distance with W/C scoots but mainly used his L LE but no UE's. Patient's R knee was mildly swollen when compared to L upon observation. Did not c/o pain when doing W/C scoots. * Patient was able to complete today's treatment with some difficulty. [facility] Work Phone: History of Present illness Narrative* Had difficulty getting patient to follow directions at start of session. * Had patient try camacho bag kicks and tosses to facilitate motor control of LE and UE's, which he enjoyed. * Patient completed W/C scoots but needed cues to lift pull with the R LE. * Fatigued quickly with W/C scoots this date but was able to go further than last visit. * Was able to lift his legs to place on the NUSTEP but still needed Min A for placement on the L d/t motor control deficits. * Patient was able to complete today's treatment with some difficulty. [facility] Work Phone: History of Present illness Narrative* Had difficulty getting patient to follow directions at start of session. * Had patient try camacho bag kicks and tosses to facilitate motor control of LE and UE's, which he enjoyed. * Patient completed W/C scoots but needed cues to lift pull with the R LE. * Fatigued quickly with W/C scoots this date but was able to go further than last visit. * Was able to lift his legs to place on the NUSTEP but still needed Min A for placement on the L d/t motor control deficits. * Patient was able to complete today's treatment with some difficulty. [facility] Work Phone: History of Present illness Narrative* Observed very mild tremors in the UE's this date when patient was at rest. * Patient seemed very fatigued with all treatment activities this date. * Patient did attempt to complete cone taps on the R but had a lot of difficulty when trying to actively lift his foot off the floor. Was able to on the L.. * Added bolster rolls using LE's this date with patient able to complete on the L but needed assist on the R. * Was easier to pull the bolster towards him easier than when attempting to roll fwd. * Patient was able to complete today's treatment with some difficulty. [facility] Work Phone: History of Present illness NarrativeMrRiver Mcpherson is progressing well through their POC. The pt demonstrates and verbalizes improvements in BLE strength and functional mobility which is helping with bed mobility, w/c mobility, and transfers. Pt's caregivers and pt with good understanding of HEP and are compliant therefore, pt is being placed on hold for 30 days to attempt performing their home exercise program independently. Pt instructed to contact with any problems, questions, or adjustments. This will serve as the patient s discharge if they elect not to resume skilled PT within 30 days. Pt verbalized understanding and agreement to goals and POC. Thank you for this referral and please call [phone] with any questions or concerns. [facility] Work Phone: History of Present illness NarrativePt does not present with any UE limitations at this time compared to baseline. Pt demos good BUE ROM, strength and FMC. Educated pt caregivers that pt could likely assist even more with ADLs than currently d/t strength and trunk control. No further visits. [facility] Work Phone: Reason for referral (narrative)* Consultation (Routine) - Authorized Specialty Diagnoses / Procedures Referred By Contac t Referred To Contact Primary Care Procedures Follow Up In Primary Care - Established Anthony Munguia DO [address] [place] [address] Referral ID Status Reason Start Date Expiration Date V isits Requested Visits Authorized [id number] Authorized 06/21/2023 06/20/2024 1 1 [facility] Work Phone: Retmgv for referral (narrative)* Unlisted Procedure Code (Routine) - New Request Specialty Diagnoses / Procedures Referred By Contac t Referred To Contact Procedures DVT/VTE RISK ASSESSMENT Ulises Li MD [address] [place] [address] Referral ID Status Reason Start Date Expiration Date V isits Requested Visits Authorized [id number] New Request 08/30/2023 09/23/2024 1 1 [facility] Consultation (Routine) - Authorized Specialty Diagnoses / Procedures Referred By Contac t Referred To Contact Podiatry Diagnoses Nail fungus Anthony Munguia DO [address] [facility] [place] [address] Referral ID Status Reason Start Date Expiration Date Visits Requested Visits Authorized [id number] Authorized Specialty Services Required 01/09/2024 01/08/2025 1 1 [facility] Work Phone: Reqfxy for referral (narrative)* Consultation (Emergency) - Authorized Specialty Diagnoses / Procedures Referred By Contac t Referred To Contact Family Medicine / Primary Care Diagnoses Breakthrough seizure (Multi) Ginette Torres, [address] [place] [address] Referral ID Status Reason Start Date Expiration Date Visits Requested Visits Authorized [id number] Authorized Specialty Services Required 05/15/2024 05/15/2025 1 1 [facility] Work Phone: Reason for referral (narrative)* Consultation (Routine) - Authorized Specialty Diagnoses / Procedures Referred By Contac t Referred To Contact Primary Care Procedures Follow Up In Primary Care - Established Anthony Munguia DO [address] [facility] [place] [address] Phone: tel: fax: Referral ID Status Reason Start Date Expiration Date V isits Requested Visits Authorized [id number] Authorized 06/10/2024 06/10/2025 1 1 [facility] Work Phone: Reason for referral (narrative)* Consultation (Routine) - New Request Specialty Diagnoses / Procedures Referred By Contac t Referred To Contact Neurology Diagnoses Generalized idiopathic epilepsy and epileptic syndromes, intractable, without status epilepticus Kaushal Avitia, ASSEMBLY STOCK SUPERVISOR-OPERATIONS AND MAINTENANCE SPECIALIST [address] [address] Referral ID Status Reason Start Date Expiration Date V isits Requested Visits Authorized [id number] New Request 06/27/2024 07/22/2025 1 1 Electronically signed by Kaushal Avitia ASSEMBLY STOCK SUPERVISOR-OPERATIONS AND MAINTENANCE SPECIALIST at 06/27/2024 11:26 AM [facility] (narrative)* Radiology (Routine) - New Request Specialty Diagnoses / Procedures Referred By Contac t Referred To Contact Procedures ECG Mya Jim MD [address] [place] [address] Phone: tel: fax: Referral ID Status Reason Start Date Expiration Date V isits Requested Visits Authorized [id number] New Request 12/11/2024 01/05/2026 1 1 * Unlisted Procedure Code (Routine) - New Request Specialty Diagnoses / Procedures Referred By Contac t Referred To Contact Procedures PLATELET MONITORING PER PROTOCOL Mya Jim MD [address] [place] [address] Phone: tel: fax: Referral ID Status Reason Start Date Expiration Date V isits Requested Visits Authorized [id number] New Request 12/11/2024 01/05/2026 1 1 * Unlisted Procedure Code (Routine) - New Request Specialty Diagnoses / Procedures Referred By Contac t Referred To Contact Procedures DVT/VTE RISK ASSESSMENT Mya Jim MD [address] [place] [address] Phone: tel: fax: Referral ID Status Reason Start Date Expiration Date V isits Requested Visits Authorized [id number] New Request 12/11/2024 01/05/2026 1 1 [facility] Initial Evaluation . BLE weakness. * Referred by: Meg Li [facility] Work Phone: reason for visit Narrative* Initial Evaluation . BLE weakness. * [facility] Work Phone: reason for visit Narrative* Initial Evaluation . s/p cervical spinal fusion, weakness both LE, OA spine with radic, cervical reg ion, general weakness. * Referred by: Dr. Rader [facility] Work Phone: reason for visit Narrative* Initial Evaluation, Evaluation and Treatment. * Referred by Mario GARNICA. [facility] Work Phone: reason for visit Narrative* Auth/Cert Specialty Diagnoses / Procedures Referred By Contac t Referred To Contact Diagnoses Generalized idiopathic epilepsy and epileptic syndromes, intractable, without status epilepticus Procedures NE VEEG BY TECH EA INCR 12-26 HR CONT R-T MNTR Viji (nurse) Mya Jim MD 0 [facility] [address] [place] [address] Phone: tel: fax: [facility] [address] [place] [address] Referral ID Status Reason Start Date Expiration Date Visits Re quested Visits Authorized [id number] 1 [facility] Assessments Diagnosis Scar - Primary Scar condition and fibrosis of skin Nevus of face Diagnosis HNP (herniated nucleus pulposus), cervical Displacement of cervical intervertebral disc without myelopathy Spinal stenosis in cervical region History of fall Personal history of fall Diagnosis Closed head injury, initial encounter Altered mental status, unspecified altered mental status type Diagnosis Laceration of scalp, initial encounter Diagnosis Contusion of right elbow, initial encounter Diagnosis Closed head injury without loss of consciousness, initial encounter Abrasion of forehead, initial encounter Diagnosis Perforated viscus- Primary Other ill-defined conditions Bowel perforation (HCC) Perforation of intestine Acute peritonitis (HCC) Unspecified peritonitis Foreign body ingestion, initial encounter Hypothyroidism, unspecified type Delirium Other alteration of consciousness Hypokalemia Hypopotassemia Anemia Anemia, unspecified Tear of urethra Bladder and urethra injury without mention of open wound into cavity Diagnosis Diarrhea, unspecified type Diarrhea of presumed infectious origin Diagnosis Generalized abdominal pain Abdominal pain, generalized Diagnosis Open wound of abdominal wall, subsequent encounter- Primary Diagnosis Partial symptomatic epilepsy with complex partial seizures, intractable, 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 Diagnosis Generalized convulsive epilepsy with intractable epilepsy Diagnosis Seizures (HCC) Other convulsions Seizure disorder (HCC) Unspecified epilepsy without mention of intractable epilepsy Mental retardation Unspecified intellectual disabilities Summary Purpose Family History Unknown Family Member Name Dates Details No pertinent family history: Mother, Father(V49.89, Z78.9) Status:Active Unknown Family Member Name Dates Details No pertinent family history: Mother, Father(V49.89, Z78.9) Status:Active Unknown Family Member Name Dates Details No pertinent family history: Mother, Father(V49.89, Z78.9) Status:Active Unknown Family Member Name Dates Details No pertinent family history: Mother, Father(V49.89, Z78.9) Status:Active Unknown Family Member Name Dates Details No pertinent family history: Mother, Father(V49.89, Z78.9) Status:Active Unknown Family Member Name Dates Details No pertinent family history: Mother, Father(V49.89, Z78.9) Status:Active Unknown Family Member Name Dates Details No pertinent family history: Mother, Father(V49.89, Z78.9) Status:Active Unknown Family Member Name Dates Details No pertinent family history: Mother, Father(V49.89, Z78.9) Status:Active Unknown Family Member Name Dates Details No pertinent family history: Mother, Father(V49.89, Z78.9) Status:Active Advance Directives Documents on File Type Date Recorded 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 anation Advance Directives and Living Will Documents on File Type Date Recorded 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 anation Advance Directives and Living Will Documents on File Type Date Recorded 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 anation Advance Directives and Livin g Will 03/24/2020 2:43 PM Documents on File Type Date Recorded 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 anation ACP-Advance Directive ACP-Power of Mortuary Operations Manager DNR Documentation 05/20/2019 12:16 PM Guardian Documents 07/22/2015 1:15 PM Jeffrey er of Guardianship Latest Code Status on File Code Status Date Activated Date Inactivated Comments Full Code 05/13/2019 12:06 PM 05/17/2019 11:41 PM Full Code 06/12/2015 10:56 PM 06/17/2015 8:13 PM Full Code 06/09/2015 11:14 PM 06/12/2015 8:25 PM Full Code 06/09/2015 10:49 PM 06/09/2015 11:14 PM Latest Code Status on File Code Status Date Activated Date Inactivated Comments DNR-CCA 07/27/2020 1:31 PM Full Code 07/25/2020 2:57 PM 07/27/2020 1:31 PM Full Code 05/13/2019 12:06 PM 05/17/2019 11:41 PM Documents on File Type Date Recorded 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 anation ACP-Advance Directive ACP-Do Not Resuscitate 08/18/2020 3:03 PM D NR ACP-Power of Mortuary Operations Manager DNR Documentation 05/20/2019 12:16 PM Guardian Documents 07/22/2015 1:15 PM Jeffrey er of Guardianship Latest Code Status on File Code Status Date Activated Date Inactivated Comments DNR-CCA 07/27/2020 1:31 PM 08/13/2020 4:06 PM Documents on File Type Date Recorded 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 anation Advance Directives and Living Will Power of Mortuary Operations Manager Latest Code Status on File Code Status Date Activated Date Inactivated Comments Full Code 06/12/2015 10:56 PM 06/17/2015 8:13 PM Documents on File Type Date Recorded 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 anation Advance Directives and Living Will Power of Mortuary Operations Manager Latest Code Status on File Code Status Date Activated Date Inactivated Comments Full Code 05/13/2019 12:06 PM Full Code 06/12/2015 10:56 PM 06/17/2015 8:13 PM Full Code 06/09/2015 11:14 PM 06/12/2015 8:25 PM Full Code 06/09/2015 10:49 PM 06/09/2015 11:14 PM Latest Code Status on File Code Status Date Activated Date Inactivated Comments Full Code 06/06/2014 12:27 AM 06/06/2014 5:13 PM Latest Code Status on File Code Status Date Activated Date Inactivated Comments Full Code 06/06/2014 12:27 AM 06/06/2014 5:13 PM Latest Code Status on File Code Status Date Activated Date Inactivated Comments Full Code 06/06/2014 12:27 AM 06/06/2014 5:13 PM Latest Code Status on File Code Status Date Activated Date Inactivated Comments Full Code 06/06/2014 12:27 AM 06/06/2014 5:13 PM Latest Code Status on File Code Status Date Activated Date Inactivated Comments DNR Suspension 08/30/2023 11:43 AM DNRCC-A suspension for surgery signed by guardian Code Status History Code Status Date Activated Date Inactivated Comments Full Code 08/30/2023 9:56 AM 08/30/2023 11:43 AM Full Code 06/06/2014 12:27 AM 06/06/2014 5:13 PM Latest Code Status on File Code Status Date Activated Date Inactivated Comments DNR Suspension 08/30/2023 11:43 AM DNRCC-A suspension for surgery signed by guardian Code Status History Code Status Date Activated Date Inactivated Comments Full Code 08/30/2023 9:56 AM 08/30/2023 11:43 AM Full Code 06/06/2014 12:27 AM 06/06/2014 5:13 PM Date Activated Date Inactivated Comments 08/30/2023 11:43 AM DNRCC-A suspe nsion for surgery signed by guardian Date Activated Date Inactivated Comments 08/30/2023 9:56 AM 08/30/2023 11:43 AM Date Activated Date Inactivated Comments 06/06/2014 12:27 AM 06/06/2014 5:13 PM Date Activated Date Inactivated Comments 08/30/2023 11:43 AM DNRCC-A suspe nsion for surgery signed by guardian Date Activated Date Inactivated Comments 08/30/2023 9:56 AM 08/30/2023 11:43 AM Date Activated Date Inactivated Comments 06/06/2014 12:27 AM 06/06/2014 5:13 PM Documents on File Type Date Recorded 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 anation [place] DNR Form 06/02/2022 Documents on File Type Date Recorded 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 anation Guardianship Papers 08/06/2024 Sherly Mcpherson 08/01/20 06-GUARDIANSHIP PAPERWORK Date Activated Date Inactivated Comments 08/06/2024 8:36 AM This order wa s created through External Result Entry Documents on File Type Date Recorded 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 anation Guardianship Papers 10/23/2024 10:55 AM Guardianship Papers 08/06/2024 Sherly Ky 08/01/20 06-GUARDIANSHIP PAPERWORK Date Activated Date Inactivated Comments 10/26/2024 6:44 PM 10/29/2024 7:24 PM Date Activated Date Inactivated Comments 10/24/2024 11:38 AM 10/26/2024 5:40 PM Date Activated Date Inactivated Comments 10/22/2024 9:34 PM 10/24/2024 11:38 AM Date Activated Date Inactivated Comments 08/06/2024 8:36 AM 10/22/2024 5:32 PM This order was created through External Result Entry Date Activated Date Inactivated Comments 12/11/2024 1:33 PM Date Activated Date Inactivated Comments 08/30/2023 11:43 AM 12/11/2024 1:33 PM DNRCC-A homa pension for surgery signed by guardian Date Activated Date Inactivated Comments 08/30/2023 9:56 AM 08/30/2023 11:43 AM Date Activated Date Inactivated Comments 06/06/2014 12:27 AM 06/06/2014 5:13 PM Date Activated Date Inactivated Comments 12/11/2024 1:33 PM Date Activated Date Inactivated Comments 08/30/2023 11:43 AM 12/11/2024 1:33 PM DNRCC-A homa pension for surgery signed by guardian Date Activated Date Inactivated Comments 08/30/2023 9:56 AM 08/30/2023 11:43 AM Date Activated Date Inactivated Comments 06/06/2014 12:27 AM 06/06/2014 5:13 PM Documents on File Type Date Recorded 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 anation Guardianship Papers 10/23/2024 10:55 AM Guardianship Papers 08/06/2024 Sherly Mcpherson 08/01/20 06-GUARDIANSHIP PAPERWORK Date Activated Date Inactivated Comments 10/26/2024 6:44 PM 10/29/2024 7:24 PM Date Activated Date Inactivated Comments 10/24/2024 11:38 AM 10/26/2024 5:40 PM Date Activated Date Inactivated Comments 10/22/2024 9:34 PM 10/24/2024 11:38 AM Date Activated Date Inactivated Comments 08/06/2024 8:36 AM 10/22/2024 5:32 PM This order was created through External Result Entry Reason for Referral Status Reason Specialty Diagnoses / Procedures Referred By Contact Referred To Contact New Request Radiology Diagnoses History of fall Procedures MR Lumbar Spine Without Contrast Moi Flores MD [address] [facility] [address] [place] [id number] Specialty Diagnoses / Procedures Referred By Contac t Referred To Contact Diagnoses Spinal stenosis, lumbosacral region Procedures MRI SPINE LUMBAR WITHOUT CONTRAST NE MRI, LUMBAR SPINE Nikki Hare MD [address] [place] [address] Referral ID Status Reason Start Date Expiration Date V isits Requested Visits Authorized [id number] New Request 11/17/2021 12/12/2022 1 1 Specialty Diagnoses / Procedures Referred By Contac t Referred To Contact Diagnoses Acute focal neurological deficit Procedures MRI BRAIN WITHOUT CONTRAST NE MRI BRAIN Nikki Hare MD [address] [place] [address] Referral ID Status Reason Start Date Expiration Date V isits Requested Visits Authorized [id number] New Request 11/17/2021 12/12/2022 1 1 Specialty Diagnoses / Procedures Referred By Contac t Referred To Contact Diagnoses Seizure disorder Procedures EEG, ROUTINE Carrie García MD [address] [place] [address] Referral ID Status Reason Start Date Expiration Date V isits Requested Visits Authorized [id number] New Request 04/05/2023 04/29/2024 1 1 Specialty Diagnoses / Procedures Referred By Contac t Referred To Contact Cardiology Diagnoses Peripheral vascular disease, unspecified (HCC) Procedures Segmental Doppler Lower Extremity Arterial Danny Torres Jr., DPM [address] [place] [address] Referral ID Status Reason Start Date Expiration Date V isits Requested Visits Authorized [id number] Authorized 01/31/2024 01/30/2025 1 1 Specialty Diagnoses / Procedures Referred By Contac t Referred To Contact Diagnoses S/P cervical spinal fusion Weakness of both lower extremities Procedures MRI SPINE CERVICAL WITHOUT CONTRAST CHG MRI SPINAL CANAL CERVICAL W/O CONTRAST Celina Flood PA-C [address] [place] [address] Referral ID Status Reason Start Date Expiration Date Visits Re quested Visits Authorized [id number] Closed 08/28/2024 09/22/2025 1 1 History of Present Illness * Moi Flores MD - 01/13/2020 12:42 PM EDT See Dictation. documented in this encounter* Moi Flores MD - 02/10/2020 4:41 PM EDT See Dictation. documented in this encounter* Magalis Drummond, RN - 08/13/2020 1:45 PM EST This nurse went over all discharge instructions with Sherly (pt's sister) and demonstrated to Sherly and a caregiver of pt how to do a complete wet to dry dressing change and sent home a few days worthof dressing change supplies with them d/t home health nurse can't come until Monday. They both verbalized understanding of dressing change / all questions invited and answered. Pt taken out of facility by his own wheelchair without incident. Pt has all belongings / Sherly took them all * Antoinette Khan, PT - 08/13/2020 1:03 PM EST Date: 08/13/2020 Physical Therapy Daily Note Patient Name: Pancho Mcpherson : 1960 (60 y.o.) Referring Practitioner: Hospitalist Referral Date : 07/23/20(R hemicolectomy 07-22-2020; 08/06/2020 swingbed program) Diagnosis: peforated viscus Treatment Diagnosis: generalized weakness Restrictions Restrictions/Precautions Restrictions/Precautions: Fall Risk Required Braces or Orthoses?: No Required Braces or Orthoses Other: Abdominal Binder Position Activity Restriction Other position/activity restrictions: pt currently in hand mittens to prevent pt pulling on all tubes and wires, due to pt has pulled out multiple IVs, catheter and wound vacs, etc. Subjective Subjective Subjective: Upon arrival, pt in bed. AGreeable to PT treatment Pain Screening Patient Currently in Pain: Denies Vital Signs Patient Currently in Pain: Denies Orientation Cognition Objective Bed mobility Rolling to Left: Independent Rolling to Right: Independent Supine to Sit: Independent Transfers Sit to Stand: Modified independent Stand to sit: Modified independent Comment: Pt able to don socks and brief with SBA seated at EOB. Ambulation Ambulation?: Yes Ambulation 1 Surface: level tile Device: Rolling Walker Assistance: Supervision Quality of Gait: Cues for proper management of FWW for max safety. Gait Deviations: Shuffles;Decreased step height;Staggers;Slow Romina;Deviated path Distance: 215' and 10'x2 Comments: Patient requires constant cues for safety awareness with ambulation secondary to easily distracted from environmental surroundings--pt has poor management of walker and nearly trips over the back legs of the walker. Stairs/Curb Stairs?: No Neuromuscular Education Neuromuscular Comments: Pt stood for 5 minutes and 3 minutes with UE support SBA to increase standing tolerance and LE strength/endurance Other exercises Other exercises 1: Pt rode SciFit L1.5 x 10 minutes to increase LE strength and endurance Comment: Pt performed w/c mobility x 210' mod I to improve mobility and overall strength/endurance Assessment Assessment: Pt demo improved safety awareness with transfers this date as well as less assistnace required for them. Pt also demo improved ability to navigate walker in hallways. PT Education: Transfer Training;Gait Training;General Safety;Functional Mobility Training Activity Tolerance Activity Tolerance: Patient Tolerated treatment well Safety Devices Type of devices: All fall risk precautions in place, Patient at risk for falls, Gait belt, Call light within reach, Left in chair, Chair alarm in place Plan Comment: d/c home with home health Discharge Recommendations: Home with assist PRN, Home with Home health PT, Patient would benefit from continued therapy after discharge, Home with doctor of nursing practice, 24 hour supervision or assist Goals Short Term Goals Time Frame for Short term goals: 3 weeks Short term goal 1: patient to perform supine <> sit min a x1 Short term goal 2: patient to perform sit <> stand mod A x 1 to decrease burden of caregiver Short term goal 3: patient to sit up at EOB x 10 minutes demo fair to fair (+)with UE support to increase core/trunk control and promote upright posture in preparation for transfers/gait Short term goal 4: patient to perform stand pivot transfers with min A x 1 to be able to get to/from BS safely Senior Living Goals Time Frame for combustion analyst goals : 6 weeks combustion analyst goal 1: patient to perform supine <> sit mod I via log roll technique: SBA combustion analyst goal 2: Patient to perform sit <> stand mod I: SBA/SPV shelter goal 3: patient to ambulate 75' with FWW mod I to ambulate household distances: 210' withFWW CGA combustion analyst goal 4: patient to stand for approximately 5-8 minutes with use of UE support to increasestanding tolerance and LE strength/endurance: 11 minutes, MET combustion analyst goal 5: patient to sit up at EOB x 10 minutes maintaining fair (+) static and dynamic seated balance to prepare for ambulation and promote upright posture:: 8 minutes Therapy Time Individual Concurrent Group Co-treatment Time In 827 Time Out 0911 Minutes 43 Charges Units Minutes Gait Training 1 15 Therapeutic Act 1 15 Therapeutic Ex 1 10 Vasopneumatic Device Self-care/Home Manage Neuro Re-ed Mod complexity eval Antoinette Khan, PT , DPT License #[id number] * Magalis Drummond RN - 08/12/2020 5:38 PM EST Mid line abd incision dressing changed as ordered / wound bed cleansed with NS, patted dry, 4 sterile 4X4 gauze soaked in NS packed into the wound bed / wound bed is pink and moist around area, with a moderate amount of yellow slough noted in the middle of the bed / no odor noted / collagenase ointment applied around wound / covered with ABD and secured with foam tape / pt ivelisse well * Antoinette Khan, PT - 08/12/2020 4:01 PM EST Date: 08/12/2020 Physical Therapy Daily Note Patient Name: Pancho Mcpherson : 1960 (60 y.o.) Referring Practitioner: Hospitalist Referral Date : 07/23/20(R hemicolectomy 07-22-2020; 08/06/2020 swingbed program) Diagnosis: peforated viscus Treatment Diagnosis: generalized weakness Restrictions Restrictions/Precautions Restrictions/Precautions: Fall Risk(MRDD) Required Braces or Orthoses?: No Required Braces or Orthoses Other: Abdominal Binder Position Activity Restriction Other position/activity restrictions: pt currently in hand mittens to prevent pt pulling on all tubes and wires, due to pt has pulled out multiple IVs, catheter and wound vacs, etc. Subjective Subjective Subjective: Upon arrival, pt in chair. Pt agreeable to treatment and states he has to use restroom Pain Screening Patient Currently in Pain: Denies Vital Signs Patient Currently in Pain: Denies Orientation Cognition Objective Transfers Sit to Stand: Supervision Stand to sit: Supervision Stand Pivot Transfers: Stand by assistance;Contact guard assistance Comment: Patient perform sit to stand from recliner SPV, stand to sit to toilet SBA, sit to stand from toilet SPV, stand pivot from w/c to recliner CGA/SBA secondary to impulsiveness and poor safety awareness. Pt perform stand to sit to w/c SPV Ambulation Ambulation?: Yes Ambulation 1 Surface: level tile Device: Rolling Walker Assistance: Stand by assistance;Contact guard assistance Gait Deviations: Shuffles;Decreased step height;Staggers;Slow Romina;Deviated path Distance: 215' and 10'x2 Comments: Patient requires constant cues for safety awareness with ambulation secondary to easily distracted from environmental surroundings--pt has poor management of walker and nearly trips over the back legs of the walker. Other exercises Other exercises?: Yes Other exercises 1: Pt rode SciFit L1.5 x 14 minutes to increase LE strength and endurance Comment: Pt performed w/c mobility x 210' mod I to improve mobility and overall strength/endurance Assessment Assessment: Pt still impulsive and has poor safety awareness but demo improved overall mobility andincreased strength and endurance. Pt had no complaints with treatment this session PT Education: Transfer Training;Gait Training;General Safety Activity Tolerance Activity Tolerance: Patient Tolerated treatment well Safety Devices Type of devices: All fall risk precautions in place, Patient at risk for falls, Gait belt, Call light within reach, Left in chair, Chair alarm in place Plan Comment: Cont focusing on strength and endurance for imporved overall mobility. Pt plans to d/c tomorrow Discharge Recommendations: Home with assist PRN, Home with Home health PT, Patient would benefit from continued therapy after discharge, Home with doctor of nursing practice, 24 hour supervision or assist Goals Short Term Goals Time Frame for Short term goals: 3 weeks Short term goal 1: patient to perform supine <> sit min a x1 Short term goal 2: patient to perform sit <> stand mod A x 1 to decrease burden of caregiver Short term goal 3: patient to sit up at EOB x 10 minutes demo fair to fair (+)with UE support to increase core/trunk control and promote upright posture in preparation for transfers/gait Short term goal 4: patient to perform stand pivot transfers with min A x 1 to be able to get to/from BS safely Avionics Repair Technician Goals Time Frame for combustion analyst goals : 6 weeks combustion analyst goal 1: patient to perform supine <> sit mod I via log roll technique: SBA combustion analyst goal 2: Patient to perform sit <> stand mod I: SBA/SPV combustion analyst goal 3: patient to ambulate 75' with FWW mod I to ambulate household distances: 210' withFWW CGA combustion analyst goal 4: patient to stand for approximately 5-8 minutes with use of UE support to increasestanding tolerance and LE strength/endurance: 11 minutes, MET shelter goal 5: patient to sit up at EOB x 10 minutes maintaining fair (+) static and dynamic seated balance to prepare for ambulation and promote upright posture:: 8 minutes Therapy Time Individual Concurrent Group Co-treatment Time In 1448 Time Out 1520 Minutes 32 Charges Units Minutes Gait Training 1 15 Therapeutic Act Therapeutic Ex 1 14 Vasopneumatic Device Self-care/Home Manage Neuro Re-ed Mod complexity michaelal Antoinette Khan, PT , DPT License #[id number] * Brissa Jennings RD, LISETTE - 08/12/2020 12:28 PM EST Nutrition Assessment Type and Reason for Visit: Reassess Nutrition Recommendations/Plan: Encourage PO intake and choosing foods from a variety of foods fromall food groups. Nutrition Assessment: TPN d/c 08/07, POD 19, eating well 76-100%. Wt loss to reflect I/Os -17L. Pulled out wound vac yesterday and continued reports of agitation. Hyperglycemia d/t D5 while NPO. Family plans to have pt d/c home with HH services and looking into 1:1 care. Estimated Daily Nutrient Needs: Energy (kcal): 7785-5181; Weight Used for Energy Requirements: Adjusted Protein (g): 105-120 (1.2-1.4/kg admit wt); Weight Used for Protein Requirements: Adjusted Fluid (ml/day): 9350-2705; Weight Used for Fluid Requirements: 1 ml/kcal Nutrition Related Findings: Concerns of Fat, Fat stephanie vit and cholesterol absorption. Vit D def-supplementing Current Nutrition Therapies: DIET GENERAL; Anthropometric Measures: Height: 5' 8 (172.7 cm) Current Body Wt: 183 lb (83 kg) BMI: 27.8 Nutrition Diagnosis: Altered GI function related to altered GI structure as evidenced by other (comment), weight loss(GIsurgery) Nutrition Interventions: Food and/or Nutrient Delivery: Continue Current Diet Nutrition Education/Counseling: Education not appropriate Coordination of Nutrition Care: Continue to monitor while inpatient, Interdisciplinary Rounds Goals: Consume 50-75% most meals and maintian baseline weight. Nutrition Monitoring and Evaluation: Behavioral-Environmental Outcomes: Knowledge or Skill Food/Nutrient Intake Outcomes: Diet Advancement/Tolerance, Food and Nutrient Intake Physical Signs/Symptoms Outcomes: Biochemical Data, Nausea or Vomiting, GI Status, Weight, Nutrition Focused Physical Findings Discharge Planning: Continue current diet Contact: x [phone] * Antoinette Khan PT - 08/12/2020 12:01 PM EST Date: 08/12/2020 Physical Therapy Daily Note Patient Name: Pancho Mcpherson : 1960 (60 y.o.) Referring Practitioner: Hospitalist Referral Date : 07/23/20(R hemicolectomy 07-22-2020; 08/06/2020 swingbed program) Diagnosis: peforated viscus Treatment Diagnosis: generalized weakness Restrictions Restrictions/Precautions Restrictions/Precautions: Fall Risk(MRDD) Required Braces or Orthoses?: No Required Braces or Orthoses Other: Abdominal Binder Position Activity Restriction Other position/activity restrictions: pt currently in hand mittens to prevent pt pulling on all tubes and wires, due to pt has pulled out multiple IVs, catheter and wound vacs, etc. Subjective Subjective Subjective: at arrival, pt in chair. Agreeable to PT treatment. States he is doing well and gets togo home tomorrow. Pain Screening Patient Currently in Pain: Denies Vital Signs Patient Currently in Pain: Denies Orientation Cognition Objective Transfers Sit to Stand: Supervision Stand to sit: Supervision Stand Pivot Transfers: Supervision Comment: Patient performed sit to stand SPV this date and stand to sit with SPV. Pt requires max verbal cues for hand placement in relation to walker. Pt performed stand pivot transfer from w/c to chair with SPV with FWW. Ambulation Ambulation?: Yes Ambulation 1 Surface: level tile Device: Rolling Walker Assistance: Contact guard assistance Quality of Gait: Cues for proper management of FWW for max safety. Gait Deviations: Shuffles;Decreased step height;Staggers;Slow Romina;Deviated path Distance: 215' and 10' Comments: Pt tends to push FWW too far out in front of him nearly tripping on the two back pegs of the walker. Pt also tends to cross his LEs during turning deeming high fall risk. Pt required max verbal and tactile cues for safety and proper gait sequencing and proper management of walker. Stairs/Curb Stairs?: No Neuromuscular Education NDT Treatment: Standing Neuromuscular Comments: Pt stood for approximately 8 minutes performing dynamic standing activity to increase standing tolerance and LE strength/endurance as well as improve balance and decrease fallrisk, CGA with intermittent UE support. Comment: Pt performed w/c mobility x 210' mod I to improve mobility and overall strength/endurance Assessment Assessment: Pt continues to demo improvement with transfers and gait with less assistance; however,still requires frequent cueing for proper management of FWW and for safety awareness. Demo LOB x 3 with dynamic standing activity with min A x 1 to recover to prevent fall PT Education: Transfer Training;Gait Training;Functional Mobility Training Activity Tolerance Activity Tolerance: Patient Tolerated treatment well Safety Devices Type of devices: All fall risk precautions in place, Patient at risk for falls, Gait belt, Call light within reach, Left in chair, Chair alarm in place Plan Comment: Cont focusing on strength and endurance for imporved overall mobility Discharge Recommendations: Home with assist PRN, Home with Home health PT, Patient would benefit from continued therapy after discharge, Home with doctor of nursing practice, 24 hour supervision or assist Goals Short Term Goals Time Frame for Short term goals: 3 weeks Short term goal 1: patient to perform supine <> sit min a x1 Short term goal 2: patient to perform sit <> stand mod A x 1 to decrease burden of caregiver Short term goal 3: patient to sit up at EOB x 10 minutes demo fair to fair (+)with UE support to increase core/trunk control and promote upright posture in preparation for transfers/gait Short term goal 4: patient to perform stand pivot transfers with min A x 1 to be able to get to/from [facility] safely Avionics Repair Technician Goals Time Frame for shelter goals : 6 weeks shelter goal 1: patient to perform supine <> sit mod I via log roll technique shelter goal 2: Patient to perform sit <> stand mod I combustion analyst goal 3: patient to ambulate 75' with FWW mod I to ambulate household distances: 210' withFWW CGA shelter goal 4: patient to stand for approximately 5-8 minutes with use of UE support to increasestanding tolerance and LE strength/endurance: 11 minutes, MET combustion analyst goal 5: patient to sit up at EOB x 10 minutes maintaining fair (+) static and dynamic seated balance to prepare for ambulation and promote upright posture Therapy Time Individual Concurrent Group Co-treatment Time In 1113 Time Out 1140 Minutes 27 Charges Units Minutes Gait Training 1 15 Therapeutic Act Therapeutic Ex Vasopneumatic Device Self-care/Home Manage Neuro Re-ed 1 10 Mod complexity tangela Khan, PT , DPT License #[id number] * Magalis Drummond RN - 08/12/2020 9:00 AM EST Family member here to visit pt / visitor at pt's bedside * Quang Esquivel MD - 08/11/2020 7:16 PM EST [facility] MEDICINE - PROGRESS NOTE Patient Name: Pancho Mcpherson Unit/Bed: 119/119-02 Date of : 1960 Current Hospital Day: Hospital Day: 21 Admit Date: 07/22/2020 Primary Care Provider: MUNA Bingham CNP Chief Complaint: perforated viscus secondary to foreign body Subjective: Patient seen and examined at bedside. Pancho Mcpherson is a 60 y.o. male who is seen in follow up. Nursing reports patient pulled off wound vac and black foam to abdomen at 2300 last night. He received one dose of IV haldol and subsequent PO ativan related to this episode. Patient denies complaints. He remains a limited historian. He did not require any haldol last night. Past Medical History, Past Surgical History, Family History, and Social History were reviewed in EHR and updates made as appropriate. Medications: Scheduled Meds: potassium chloride 20 mEq Oral Daily metoprolol tartrate 12.5 mg Oral BID famotidine 20 mg Oral BID sodium chloride flush 10 mL Intravenous BID collagenase Topical Daily PHENobarbital 64.8 mg Oral Daily sennosides-docusate sodium 1 tablet Oral BID heparin (porcine) 5,000 Units Subcutaneous Q12H PHENobarbital 64.8 mg Oral BID memantine 5 mg Oral BID phenytoin 200 mg Oral Nightly levETIRAcetam 2,000 mg Oral BID clonazePAM 1 mg Oral Nightly levothyroxine 200 mcg Oral QAM levothyroxine 50 mcg Oral Every Other Day QUEtiapine 75 mg Oral QAM QUEtiapine 300 mg Oral Nightly PARoxetine 40 mg Oral Daily folic acid 1 mg Oral Daily Continuous Infusions: PRN Meds:haloperidol, oxyCODONE-acetaminophen, LORazepam, ondansetron, acetaminophen, haloperidol lactate Allergies: No Known Allergies Review of Systems: Review of Systems Unable to perform ROS: Mental status change Objective: Vitals: BP 108/83 Pulse 103 Temp 98.3 F (36.8 C) (Oral) Resp 22 Ht 5' 8 (1.727 m) Wt 182lb 15.7 oz (83 kg) SpO2 96% BMI 27.82 kg/m CURRENT TEMPERATURE: Temp: 98.3 F (36.8 C) MAXIMUM TEMPERATURE OVER 24HRS: Temp (24hrs), Av.1 F (36.7 C), Min:97.4 F (36.3 C), Max:98.9 F (37.2 C) Physical Exam Vitals signs and nursing note reviewed. Constitutional: Appearance: Normal appearance. He is normal weight. HENT: Head: Normocephalic and atraumatic. Nose: Nose normal. Eyes: General: No scleral icterus. Extraocular Movements: Extraocular movements intact. Pupils: Pupils are equal, round, and reactive to light. Neck: Musculoskeletal: Normal range of motion and neck supple. Cardiovascular: Rate and Rhythm: Normal rate and regular rhythm. Pulses: Normal pulses. Heart sounds: Normal heart sounds. No murmur. No friction rub. No gallop. Abdominal: General: There is no distension. Palpations: There is no mass. Tenderness: There is abdominal tenderness. Hernia: No hernia is present. Genitourinary: Testes: Normal. Musculoskeletal: Normal range of motion. Skin: General: Skin is warm. Coloration: Skin is not jaundiced. Neurological: General: No focal deficit present. Mental Status: He is alert and oriented to person, place, and time. Psychiatric: Attention and Perception: Attention normal. Mood and Affect: Mood normal. Speech: Speech normal. Behavior: Behavior is cooperative. Cognition and Memory: Cognition is impaired. Judgment: Judgment is impulsive. Diet: DIET GENERAL; Data: Scheduled Meds: Reviewed Continuous Infusions: Labs CBC: Recent Labs 08/09/20 0505 08/10/20 0630 08/11/20 0721 WBC 6.9 6.7 7.1 HGB 10.1* 10.4* 10.9* HCT 31.2* 32.5* 34.3* PLT 375 399 385 BMP: Recent Labs 08/09/20 0505 08/10/20 0630 08/11/20 0721 NA 137 137 142 K 4.0 3.5* 4.3 CL 101 104 104 CO2 28 26 27 BUN 9 12 11 CREATININE 0.73 0.75 0.72 GLUCOSE 93 93 106* LFT's: Recent Labs 08/09/20 0505 08/10/20 0630 08/11/20 0721 AST 25 28 32 ALT 26 33 45 BILITOT 0.3 0.2 0.1* ALKPHOS 110 110 101 Troponin: No results for input(s): TROPONINI in the last 72 hours. BNP: No results for input(s): BNP in the last 72 hours. INR: No results for input(s): INR in the last 72 hours. Lipids: No results for input(s): CHOL, HDL in the last 72 hours. Invalid input(s): LDLCALCU Urinalysis: Lab Results Component Value Date NITRU NEGATIVE 10/11/2016 WBCUA 0 TO 2 10/11/2016 BACTERIA TRACE 10/11/2016 RBCUA None 10/11/2016 SPECGRAV 1.010 10/11/2016 GLUCOSEU NEGATIVE 10/11/2016 I/O: I/O last 3 completed shifts: In: 730 [P.O.:730] Out: 471 [Urine:470; Stool:1] Telemetry: no arrhythmia seen Radiology: XR SHOULDER RIGHT (MIN 2 VIEWS) Final Result 1. No acute fracture or dislocation of the right shoulder is seen. 2. Multiple remote, healed fracture deformities of the lateral aspect of the right rib cage. XR CHEST PORTABLE Final Result Right subclavian central line positioning as above without evidence of pneumothorax or other complication. XR ABDOMEN (KUB) (SINGLE AP VIEW) Final Result Multiple dilated small bowel loops up to 4.4 cm in caliber. Cannot exclude obstruction on these images. Close follow-up and repeat x-ray and/or surgical evaluation recommended. Consider follow-up x-ray in 2-[address] is not to be done. CT ABDOMEN PELVIS WO CONTRAST Additional Contrast? None Final Result IMPRESSION CT HEAD WO CONTRAST Final Result 1. No acute intracranial abnormality. 2. Chronic small vessel ischemia, minimal chronic sinusitis and remote nasal bone fractures. CT CERVICAL SPINE WO CONTRAST Final Result 1. No acute fracture or subluxation. 2. Multilevel degenerative changes as described above. XR SHOULDER RIGHT (MIN 2 VIEWS) Final Result 1. No acute fracture or dislocation of the right shoulder. 2. Mild right acromioclavicular joint osteoarthritis. 3. Age-indeterminate right rib fracture deformities. CT ABDOMEN PELVIS WO CONTRAST Additional Contrast? None Final Result 1. Dilated small bowel loops in the right lower quadrant with a tract of extraluminal gas in this area, indicative of focal perforation, with a moderate amount of surrounding infiltrative/inflammatory changes. There are 2 linear metallic foreign bodies within one of these dilated loops as well as pneumatosis intestinalis, that is suspicious for a mechanical perforation related to these foreign bodies. The small bowel dilatation could be due to a partial obstruction and/or an ileus. 2. Small amount of free fluid as well as bubbles of free intraperitoneal gas in the upper abdomen. No loculated fluid collections are identified to suggest an abscess. 3. Mild fatty infiltration of the liver. 4. Nonobstructing left renal calculi. No hydronephrosis. Critical results were discussed with Dr. Lynn on 07/22/2020 at 1:52 PM. Assessment/Plan Pancho Mcpherson is a 60 y.o. male, who was admitted with Perforated viscus. Active Hospital Problems Diagnosis Date Noted Bowel perforation (HCC) [K63.1] Delirium [R41.0] Hypokalemia [E87.6] Anemia [D64.9] Tear of urethra [S37.33XA] Perforated viscus [R19.8] 07/22/2020 Plan: 1. Hyperglycemia, noted on labs incidentally and complicated by being on D5- containing fluids whileNPO. Hemoglobin A1c 5.5%, hence hyperglycemia was acute in the current setting. Discontinued accuchecks and SSI as this has resolved. 2. Perforated viscus, POD #20 from surgical intervention by Dr. Rodriges, wound vac in place. Continue management per Dr. Rodriges. Changed IV narcotics to PO percocet on 08/08. Has only required one dose so elliot. 3. Urethral perforation, traumatic, completed duration of catheter placement and now removed. Monitor for complication. Urinating OK. 4. Anemia, postoperative and complicated by bleeding from traumatic urethral perforation. Stabilized with hemoglobin in 9-10 range. Continue to monitor and transfuse for hemoglobin less than 7. 5. Hypokalemia: continue K-dur 20 mEq daily. 6. Hypertension: HR 90-100, so will continue metoprolol tartrate 12.5 mg BID. 7. Wound infection: reviewed general surgery notes. Clinical evidence of infection has resolved. Discontinued antibiotics on 08/08, continue to monitor. 8. Bipolar disorder with psychosis: continue home medications including clonazepam 1 mg nightly, quetiapine 75 mg QAM and 300 mg QHS, and paroxetine 40 mg QAM. Delirium has improved but still impulsive and agitated at times. Transitioned PRN lorazepam and haldol to PO dosing on 08/08 in an effort to transition to a rehab plan of care, still required dose of IV haldol last night. Patient remains at risk of self-harm and has been intermittently displaying with poor impulse control. Discontinue scheduled benadryl as this may be causing paradoxical effects. 9. Seizure disorder: seizure precautions. Continue phenobarbital 45 mg QAM and 60 mg noon and QHS. Continue Phenytoin 200 mg QHS. Continue Keppra 2000 mg BID. 10. Obstructive sleep apnea: continue home CPAP when sleeping. 11. Hypothyroidism: continue home levothyroxine 200 mcg alternating with 250 mcg. 12. Vitamin D Deficiency: continue vitamin D 2000 IU daily. 13. Hyperlipidemia: continue atorvastatin 10 mg nightly. 14. Code status is [id number]. Prophylaxis: 1) Stress Ulcer Protocol Active: PO famotidine 2) DVT Protocol Active: lovenox Code Status: DNR-CCA FEN: DIET GENERAL; DISPO: likely discharge home with 24 hour supervision PT/OT Eval Status: working with patient General Attestation Evaluation of the patient today involved thorough review of all progress notes, laboratory tests, consults, radiology, and other diagnostic studies as appropriate. Quang Esquivel MD Internal Medicine Hospitalist * Antoinette Khan, PT - 08/11/2020 4:40 PM EST Date: 08/11/2020 Physical Therapy Daily Note Patient Name: Pancho Mcpherson : 1960 (60 y.o.) Referring Practitioner: Hospitalist Referral Date : 07/23/20(R hemicolectomy 07-22-2020; 08/06/2020 swingbed program) Diagnosis: peforated viscus Treatment Diagnosis: generalized weakness Restrictions Restrictions/Precautions Restrictions/Precautions: Fall Risk(MRDD) Required Braces or Orthoses?: No Required Braces or Orthoses Other: Abdominal Binder Position Activity Restriction Other position/activity restrictions: pt currently in hand mittens to prevent pt pulling on all tubes and wires, due to pt has pulled out multiple IVs, catheter and wound vacs, etc. Subjective Subjective Subjective: at arrival, pt in bed. Agreeable to PT treatment Pain Screening Patient Currently in Pain: Denies Vital Signs Patient Currently in Pain: Denies Orientation Cognition Objective Bed mobility Supine to Sit: Supervision Scooting: Supervision Transfers Sit to Stand: Stand by assistance Stand to sit: Contact guard assistance Comment: Pt performed sit to stand with SBA with use of FWW with max verbal and tactile cues for safety in relation to hand placement. Pt perform stand to sit CGA. Pt impulsive at times, deeming highfall risk. pt stood for 3 mins and 11 mins with UE support CGA to increase standing tolerance and LE strength and endurance while performing standing activity. Pt then performed w/c mobility for 100'mod I to increase mobility and endurance using UE's and LE's. Ambulation Ambulation?: Yes Ambulation 1 Surface: level tile Assistance: Contact guard assistance;Minimal assistance Quality of Gait: Cues for proper management of FWW for max safety. Gait Deviations: Shuffles;Decreased step height;Staggers;Slow Romina;Deviated path Distance: 210', 100' Comments: Pt tends to push FWW too far out in front of him nearly tripping on the two back pegs of the walker. Pt also tends to cross his LEs during turning deeming high fall risk. Pt required max verbal and tactile cues for safety and proper gait sequencing and proper management of walker. Stairs/Curb Stairs?: No Balance Sitting - Static: Good Sitting - Dynamic: Good Standing - Static: Fair;+ Standing - Dynamic: Fair Assessment Assessment: Pt demo improved ability to perform transfers with less assist this date and able to ambulate further distances compared to prior tx. Pt has poor carry over with gait sequencing and safety awareness. Pt continues to be impulsive and is a high fall risk. Overall, demo progress with all aspects of mobility, strength and endurance PT Education: General Safety;Functional Mobility Training;Transfer Training;Plan of Care;Goals;GaitTraining Activity Tolerance Activity Tolerance: Patient Tolerated treatment well Safety Devices Type of devices: All fall risk precautions in place, Patient at risk for falls, Gait belt, Call light within reach, Left in chair, Chair alarm in place Plan Comment: Cont focusing on strength and endurance for imporved overall mobility Discharge Recommendations: Home with assist PRN, Home with Home health PT, Patient would benefit from continued therapy after discharge, Home with doctor of nursing practice, 24 hour supervision or assist Goals Short Term Goals Time Frame for Short term goals: 3 weeks Short term goal 1: patient to perform supine <> sit min a x1 Short term goal 2: patient to perform sit <> stand mod A x 1 to decrease burden of caregiver Short term goal 3: patient to sit up at EOB x 10 minutes demo fair to fair (+)with UE support to increase core/trunk control and promote upright posture in preparation for transfers/gait Short term goal 4: patient to perform stand pivot transfers with min A x 1 to be able to get to/from [facility] safely Avionics Repair Technician Goals Time Frame for shelter goals : 6 weeks shelter goal 1: patient to perform supine <> sit mod I via log roll technique combustion analyst goal 2: Patient to perform sit <> stand mod I shelter goal 3: patient to ambulate 75' with FWW mod I to ambulate household distances: 210' withFWW CGA combustion analyst goal 4: patient to stand for approximately 5-8 minutes with use of UE support to increasestanding tolerance and LE strength/endurance: 11 minutes, MET combustion analyst goal 5: patient to sit up at EOB x 10 minutes maintaining fair (+) static and dynamic seated balance to prepare for ambulation and promote upright posture Therapy Time Individual Concurrent Group Co-treatment Time In 1405 Time Out 1444 Minutes 39 Charges Units Minutes Gait Training 2 25 Therapeutic Act 1 14 Therapeutic Ex Vasopneumatic Device Self-care/Home Manage Neuro Re-ed Mod complexity eval Antoinette Khan, PT , DPT License #[id number] * Laya Rodriges MD - 08/10/2020 3:40 PM EST Pancho is doing better. Pandey catheter has been removed. His central line is out. He is eating well. We are not able to keep the wound VAC in place. We have switched to Santyl dressing changes done daily. The wound is looking much better. There is some superficial slough that I will likely sharply debrided at the bedside prior to discharge. We are currently looking into discharge planning. * Brissa Jennings RD, LD - 08/10/2020 1:46 PM EST Comprehensive Nutrition Assessment Type and Reason for Visit: Reassess Nutrition Recommendations/Plan & Nutrition Assessment: TPN d/c 08/07, POD 19, eating well 76-100%. Wt loss to reflect I/Os -22.6L. Pulled out wound vac yesterday and continued reports of agitation. Hyperglycemia d/t D5 while NPO. Family plans to have pt d/c home with services and looking into 1:1 care. Estimated Daily Nutrient Needs: Energy (kcal): 2046-0822; Weight Used for Energy Requirements: Adjusted Protein (g): 105-120 (1.2-1.4/kg admit wt); Weight Used for Protein Requirements: Adjusted Fluid (ml/day): 9437-1568; Method Used for Fluid Requirements: 1 ml/kcal Nutrition Related Findings: Concerns of Fat, Fat stephanie vit and cholesterol absorption. Vit D def-supplementing Wounds: Open Wounds Anthropometric Measures: Height: 5' 8 (172.7 cm) Current Body Weight: 180 lb (81.6 kg) Admission Body Weight: 191 lb (86.6 kg) Usual Body Weight: 189 lb (85.7 kg) [place] Body Weight: 154 lbs; BMI: 27.4 Adjusted Body Weight: ; No Adjustment BMI Categories: Overweight (BMI 25.0-29.9) Nutrition Diagnosis: Altered GI function related to altered GI structure as evidenced by other (comment), weight loss(GIsurgery) Nutrition Interventions: Food and/or Nutrient Delivery: Continue Current Diet Nutrition Education/Counseling: Education not appropriate Coordination of Nutrition Care: Continue to monitor while inpatient, Interdisciplinary Rounds Goals: Consume 50-75% most meals and maintian baseline weight. Nutrition Monitoring and Evaluation: Behavioral-Environmental Outcomes: Knowledge or Skill Food/Nutrient Intake Outcomes: Diet Advancement/Tolerance, Food and Nutrient Intake Physical Signs/Symptoms Outcomes: Biochemical Data, Nausea or Vomiting, GI Status, Weight, Nutrition Focused Physical Findings Discharge Planning: Continue current diet Contact: x [phone] * Antoinette Khan, PT - 08/10/2020 7:44 AM EST Facility/Department: [facility] ICU Physical Therapy Daily Note NAME: Pancho Mcpherson : 1960 Date of Service: 08/06/2020 Discharge Recommendations: Subacute/Longterm Facility, ECF with PT, Continue to assess pending progress Assessment Body structures, Functions, Activity limitations: Decreased functional mobility ;Decreased strength;Decreased endurance;Decreased posture;Decreased safe awareness;Decreased balance;Decreased cognition;Increased pain;Decreased coordination;Decreased fine motor control Assessment: Pt demo singificant decline compared to PLOF and required max encouragment to participate and assist with transfers, limiting therapy Treatment Diagnosis: generalized weakness Prognosis: Fair PT Education: General Safety;Functional Mobility Training;Transfer Training;PT Role;Plan of Care;Goals REQUIRES PT FOLLOW UP: Yes Activity Tolerance Activity Tolerance: Patient limited by fatigue;Patient limited by endurance;Patient limited by cognitive status Patient Diagnosis(es): There were no encounter diagnoses. has a past medical history of Bipolar disorder with psychotic features (HCC), Dementia (HCC), Dyslipidemia, Head injury, High cholesterol, High cholesterol, Hyperammonemia (HCC), Hypertension, Hypothyroidism, Mental retardation, Occupational circumstances, Onychomycosis, Psychosis (HCC), Schizophrenia (HCC), Seizures (HCC), Sleep apnea, Sleep apnea, and Tear of urethra. has a past surgical history that includes Leg Surgery; Toe amputation (January 2013); eye muscle surgery (Right); Orbital fracture repair (Left); and hemicolectomy (N/A, 07/22/2020). Restrictions Restrictions/Precautions Restrictions/Precautions: Fall Risk(MRDD, ??Abdominal binder??; mitts remain on hands until ready to mobility; seizure) Required Braces or Orthoses?: No Vision/Hearing Vision: Within Functional Limits Hearing: Exceptions to WFL Subjective PT received verbal orders that pt was swinging at 11 AM this date. PT treated pt and reassess was performed, however, no charge secondary to reassess a few days ago per doctors orders. Dr Rodriges checked up on patient at 12 PM and stated that patient is not ready to swing yet. This note is a treatment note, adjustments made as needed. General Chart Reviewed: Yes Patient assessed for rehabilitation services?: Yes Additional Pertinent Hx: Pancho presents to the emergency room with abdominal pain nausea and vomiting. The symptoms are present when he awoke this morning. He was feeling fine last evening when he went to bed. He denies previous history of similar type symptoms. He denies urinary symptoms. He is running a low-grade fever. He denies recent change in bowel habits. There are no previous abdominal surgeries. The patient's sister tells me that he has been missing a dental implant. He does not have previous history of purposefully swallowing objects. Family / Caregiver Present: No Referring Practitioner: Dr. Burch Referral Date : 07/23/20(R hemicolectomy 07-22-2020 Diagnosis: peforated viscus Follows Commands: Impaired Subjective Subjective: At arrival pt. supine, agreeable to try to sit up in the chair Pain Screening Patient Currently in Pain: Denies Vital Signs Patient Currently in Pain: Denies Orientation Orientation Overall Orientation Status: Within Normal Limits Social/Functional History Social/Functional History Lives With: Alone Type of Home: House Home Layout: One level Home Equipment: Wheelchair-manual ADL Assistance: Independent Homemaking Assistance: Needs assistance Ambulation Assistance: Independent(mod I for mabulation with FWW and w/c for long distances) Transfer Assistance: Independent Active Shop And Alteration Tailor: No Additional Comments: Pt is a poor historian on this date. Cognition Cognition Overall Cognitive Status: Exceptions Arousal/Alertness: Inconsistent responses to stimuli Following Commands: Follows one step commands with repetition;Inconsistently follows commands Attention Span: Difficulty dividing attention;Unable to maintain attention Safety Judgement: Decreased awareness of need for safety Insights: Decreased awareness of deficits Initiation: Requires cues for all Sequencing: Requires cues for all Objective Bed mobility Rolling to Left: 2 Person assistance;Dependent/Total Rolling to Right: Dependent/Total;2 Person assistance Supine to Sit: 2 Person assistance;Maximum assistance Sit to Supine: Dependent/Total;2 Person assistance Scootin Person assistance;Dependent/Total Comment: Pt required constant encouragement to participate with therapy. Pt agreeable that he wanted to get up into the chair but when starting the transfers, pt did not help much if at any with transfers. Pt sat up at EOB x 10 minutes with max A x 1-2 to maintain static seated balance with multiple LOB requiring 2 assist to recover. Pt sat at EOB to increase core/trunk control and promote upright posture Transfers Sit to Stand: Unable to assess Stand to sit: Unable to assess Bed to Chair: Unable to assess Stand Pivot Transfers: Unable to assess Ambulation Ambulation?: No(no secondary to safety concerns) Balance Posture: Fair Sitting - Static: Poor;- AROM RLE (degrees) RLE AROM: WFL AROM LLE (degrees) LLE AROM : WFL Strength RLE Strength RLE: Exception Comment: unable to test secondary to pt not following commands----at least 3/5 Strength LLE Strength LLE: Exception Comment: unable to test secondary to pt not following commands----at least 3/5 Plan Plan Times per week: 5-6x/week Times per day: (1-2x) Plan weeks: 6 weeks Current Treatment Recommendations: Strengthening, Functional Mobility Training, Balance Training, Endurance Training, Gait Training, Transfer Training, Neuromuscular Re-education, Safety Education & Training, Pain Management, Patient/Caregiver Education & Training, Home Exercise Program, Positioning, ROM, Manual Therapy - Joint Manipulation, Manual Therapy - Soft Tissue Mobilization Plan Comment: Cont focusing on strength and endurance for imporved overall mobility Safety Devices Type of devices: All fall risk precautions in place, Patient at risk for falls, Gait belt, Call light within reach, Bed alarm in place, Left in bed Restraints Initially in place: Yes Restraints: mitts on B UE's [facility] (6 CLICK) BASIC MOBILITY Goals Short term goals Time Frame for Short term goals: 3 weeks Short term goal 1: patient to perform supine <> sit min a x1 Short term goal 2: patient to perform sit <> stand mod A x 1 to decrease burden of caregiver Short term goal 3: patient to sit up at EOB x 10 minutes demo fair to fair (+)with UE support to increase core/trunk control and promote upright posture in preparation for transfers/gait Short term goal 4: patient to perform stand pivot transfers with min A x 1 to be able to get to/from [facility] safely shelter goals Time Frame for shelter goals : 6 weeks combustion analyst goal 1: patient to perform supine <> sit mod I via log roll technique combustion analyst goal 2: Patient to perform sit <> stand mod I shelter goal 3: patient to ambulate 75' with FWW mod I to ambulate household distances shelter goal 4: patient to stand for approximately 5-8 minutes with use of UE support to increasestanding tolerance and LE strength/endurance Therapy Time Individual Concurrent Group Co-treatment Time In 1037 Time Out 1101 Minutes 24 Charges Units Minutes Gait Training Therapeutic Act 2 24 Therapeutic Ex Vasopneumatic Device Self-care/Home Manage Neuro Re-ed high complexity eval Antoinette Khan, PT , DPT License #[id number] * Quang Esquivel MD - 08/10/2020 7:12 AM EST [facility] MED[facility] - PROGRESS NOTE Patient Name: Pancho Mcpherson Unit/Bed: 119/119-02 Date of : 1960 Current Hospital Day: Hospital Day: 20 Admit Date: 07/22/2020 Primary Care Provider: MUNA Bingham CNP Chief Complaint: perforated viscus secondary to foreign body Subjective: Patient seen and examined at bedside. Pancho Mcpherson is a 60 y.o. male who is seen in follow up. Nursing reports patient pulled off wound vac and black foam to abdomen at 2300 last night. He received one dose of IV haldol and subsequent PO ativan related to this episode. Patient denies complaints. He remains a limited historian. He did not require any haldol last night. Past Medical History, Past Surgical History, Family History, and Social History were reviewed in EHR and updates made as appropriate. Medications: Scheduled Meds: metoprolol tartrate 12.5 mg Oral BID diphenhydrAMINE 25 mg Oral Q8H famotidine 20 mg Oral BID sodium chloride flush 10 mL Intravenous BID collagenase Topical Daily PHENobarbital 64.8 mg Oral Daily sennosides-docusate sodium 1 tablet Oral BID heparin (porcine) 5,000 Units Subcutaneous Q12H PHENobarbital 64.8 mg Oral BID memantine 5 mg Oral BID phenytoin 200 mg Oral Nightly levETIRAcetam 2,000 mg Oral BID clonazePAM 1 mg Oral Nightly levothyroxine 200 mcg Oral QAM levothyroxine 50 mcg Oral Every Other Day QUEtiapine 75 mg Oral QAM QUEtiapine 300 mg Oral Nightly PARoxetine 40 mg Oral Daily folic acid 1 mg Oral Daily Continuous Infusions: PRN Meds:haloperidol, oxyCODONE-acetaminophen, LORazepam, ondansetron, acetaminophen, haloperidol lactate Allergies: No Known Allergies Review of Systems: Review of Systems Unable to perform ROS: Mental status change Objective: Vitals: BP 119/78 Pulse 78 Temp 98.2 F (36.8 C) (Axillary) Resp 18 Ht 5' 8 (1.727 m) Wt 187 lb 1.6 oz (84.9 kg) SpO2 94% BMI 28.45 kg/m CURRENT TEMPERATURE: Temp: 98.2 F (36.8 C) MAXIMUM TEMPERATURE OVER 24HRS: Temp (24hrs), Av.2 F (36.8 C), Min:97.4 F (36.3 C), Max:98.9 F (37.2 C) Physical Exam Vitals signs and nursing note reviewed. Constitutional: Appearance: Normal appearance. He is normal weight. HENT: Head: Normocephalic and atraumatic. Nose: Nose normal. Eyes: General: No scleral icterus. Extraocular Movements: Extraocular movements intact. Pupils: Pupils are equal, round, and reactive to light. Neck: Musculoskeletal: Normal range of motion and neck supple. Cardiovascular: Rate and Rhythm: Normal rate and regular rhythm. Pulses: Normal pulses. Heart sounds: Normal heart sounds. No murmur. No friction rub. No gallop. Abdominal: General: There is no distension. Palpations: There is no mass. Tenderness: There is abdominal tenderness. Hernia: No hernia is present. Genitourinary: Testes: Normal. Musculoskeletal: Normal range of motion. Skin: General: Skin is warm. Coloration: Skin is not jaundiced. Neurological: General: No focal deficit present. Mental Status: He is alert and oriented to person, place, and time. Psychiatric: Attention and Perception: Attention normal. Mood and Affect: Mood normal. Speech: Speech normal. Behavior: Behavior is cooperative. Cognition and Memory: Cognition is impaired. Judgment: Judgment is impulsive. Diet: DIET GENERAL; Data: Scheduled Meds: Reviewed Continuous Infusions: Labs CBC: Recent Labs 08/08/20 0540 08/09/20 0505 08/10/20 0630 WBC 7.4 6.9 6.7 HGB 9.2* 10.1* 10.4* HCT 28.5* 31.2* 32.5* PLT 364 375 399 BMP: Recent Labs 08/08/20 0540 08/09/20 0505 08/10/20 0630 NA 136 137 137 K 3.7 4.0 3.5* CL 101 101 104 CO2 29 28 26 BUN 10 9 12 CREATININE 0.88 0.73 0.75 GLUCOSE 114* 93 93 LFT's: Recent Labs 08/08/20 0540 08/09/20 0505 08/10/20 0630 AST 24 25 28 ALT 22 26 33 BILITOT 0.2 0.3 0.2 ALKPHOS 95 110 110 Troponin: No results for input(s): TROPONINI in the last 72 hours. BNP: No results for input(s): BNP in the last 72 hours. INR: No results for input(s): INR in the last 72 hours. Lipids: No results for input(s): CHOL, HDL in the last 72 hours. Invalid input(s): LDLCALCU Urinalysis: Lab Results Component Value Date NITRU NEGATIVE 10/11/2016 WBCUA 0 TO 2 10/11/2016 BACTERIA TRACE 10/11/2016 RBCUA None 10/11/2016 SPECGRAV 1.010 10/11/2016 GLUCOSEU NEGATIVE 10/11/2016 I/O: I/O last 3 completed shifts: In: 1360 [P.O.:1360] Out: 2270 [Urine:2270] Telemetry: no arrhythmia seen Radiology: XR SHOULDER RIGHT (MIN 2 VIEWS) Final Result 1. No acute fracture or dislocation of the right shoulder is seen. 2. Multiple remote, healed fracture deformities of the lateral aspect of the right rib cage. XR CHEST PORTABLE Final Result Right subclavian central line positioning as above without evidence of pneumothorax or other complication. XR ABDOMEN (KUB) (SINGLE AP VIEW) Final Result Multiple dilated small bowel loops up to 4.4 cm in caliber. Cannot exclude obstruction on these images. Close follow-up and repeat x-ray and/or surgical evaluation recommended. Consider follow-up x-ray in 2-[address] is not to be done. CT ABDOMEN PELVIS WO CONTRAST Additional Contrast? None Final Result IMPRESSION CT HEAD WO CONTRAST Final Result 1. No acute intracranial abnormality. 2. Chronic small vessel ischemia, minimal chronic sinusitis and remote nasal bone fractures. CT CERVICAL SPINE WO CONTRAST Final Result 1. No acute fracture or subluxation. 2. Multilevel degenerative changes as described above. XR SHOULDER RIGHT (MIN 2 VIEWS) Final Result 1. No acute fracture or dislocation of the right shoulder. 2. Mild right acromioclavicular joint osteoarthritis. 3. Age-indeterminate right rib fracture deformities. CT ABDOMEN PELVIS WO CONTRAST Additional Contrast? None Final Result 1. Dilated small bowel loops in the right lower quadrant with a tract of extraluminal gas in this area, indicative of focal perforation, with a moderate amount of surrounding infiltrative/inflammatory changes. There are 2 linear metallic foreign bodies within one of these dilated loops as well as pneumatosis intestinalis, that is suspicious for a mechanical perforation related to these foreign bodies. The small bowel dilatation could be due to a partial obstruction and/or an ileus. 2. Small amount of free fluid as well as bubbles of free intraperitoneal gas in the upper abdomen. No loculated fluid collections are identified to suggest an abscess. 3. Mild fatty infiltration of the liver. 4. Nonobstructing left renal calculi. No hydronephrosis. Critical results were discussed with Dr. Lynn on 07/22/2020 at 1:52 PM. Assessment/Plan Pancho Mcpherson is a 60 y.o. male, who was admitted with Perforated viscus. Active Hospital Problems Diagnosis Date Noted Bowel perforation (HCC) [K63.1] Delirium [R41.0] Hypokalemia [E87.6] Anemia [D64.9] Tear of urethra [S37.33XA] Perforated viscus [R19.8] 07/22/2020 Plan: 1. Hyperglycemia, noted on labs incidentally and complicated by being on D5- containing fluids whileNPO. Hemoglobin A1c 5.5%, hence hyperglycemia was acute in the current setting. Discontinued accuchecks and SSI as this has resolved. 2. Perforated viscus, POD #19 from surgical intervention by Dr. Rodriges, wound vac in place. Continue management per Dr. Rodriges. Changed IV narcotics to PO percocet on 08/08. Has only required one dose so elliot. 3. Urethral perforation, traumatic, completed duration of catheter placement and now removed. Monitor for complication. Urinating OK. 4. Anemia, postoperative and complicated by bleeding from traumatic urethral perforation. Stabilized with hemoglobin in 9-10 range. Continue to monitor and transfuse for hemoglobin less than 7. 5. Hypokalemia: slightly low at 3.5 today. Will give K-dur 20 mEq daily. 6. Hypertension: BP on low side overall. Decreased metoprolol to 12.5 mg BID with parameters on 08/09. If HR remains normal likely will discontinue on 08/11. 7. Wound infection: reviewed general surgery notes. Clinical evidence of infection has resolved. Discontinued antibiotics on 08/08, continue to monitor. 8. Bipolar disorder with psychosis: continue home medications including clonazepam 1 mg nightly, quetiapine 75 mg QAM and 300 mg QHS, and paroxetine 40 mg QAM. Delirium has improved but still impulsive and agitated at times. Transitioned PRN lorazepam and haldol to PO dosing on 08/08 in an effort to transition to a rehab plan of care, still required dose of IV haldol last night. Patient remains at risk of self-harm and has been intermittently displaying with poor impulse control. Discontinue scheduled benadryl as this may be causing paradoxical effects. 9. Seizure disorder: seizure precautions. Continue phenobarbital 45 mg QAM and 60 mg noon and QHS. Continue Phenytoin 200 mg QHS. Continue Keppra 2000 mg BID. 10. Obstructive sleep apnea: continue home CPAP when sleeping. 11. Hypothyroidism: continue home levothyroxine 200 mcg alternating with 250 mcg. 12. Vitamin D Deficiency: continue vitamin D 2000 IU daily. 13. Hyperlipidemia: continue atorvastatin 10 mg nightly. 14. Code status is [id number]. Prophylaxis: 1) Stress Ulcer Protocol Active: PO famotidine 2) DVT Protocol Active: lovenox Code Status: DNR-CCA FEN: DIET GENERAL; DISPO: will discuss with team LTACH versus swing PT/OT Eval Status: working with patient General Attestation Evaluation of the patient today involved thorough review of all progress notes, laboratory tests, consults, radiology, and other diagnostic studies as appropriate. Quang Esquivel MD Internal Medicine Hospitalist * Virginia Abbott RN - 08/09/2020 10:52 PM EST Patient pulled off wound vac and pulled out black foam to abdomen. Wet to dry dressing applied. * Quang Esquivel MD - 08/09/2020 11:37 AM EST [facility] MEDIC[facility] - PROGRESS NOTE Patient Name: Pancho Mcpherson Unit/Bed: 119/119-02 Date of : 1960 Current Hospital Day: Hospital Day: 19 Admit Date: 07/22/2020 Primary Care Provider: MUNA Bingham CNP Chief Complaint: perforated viscus secondary to foreign body Subjective: Patient seen and examined at bedside. Pancho Mcpherson is a 60 y.o. male who is seen in follow up. Nursing reports no major issues overnight. Patient denies complaints. He remains a limited historian. He did not require any haldol last night. Past Medical History, Past Surgical History, Family History, and Social History were reviewed in EHR and updates made as appropriate. Medications: Scheduled Meds: diphenhydrAMINE 25 mg Oral Q6H famotidine 20 mg Oral BID sodium chloride flush 10 mL Intravenous BID collagenase Topical Daily PHENobarbital 64.8 mg Oral Daily sennosides-docusate sodium 1 tablet Oral BID metoprolol tartrate 25 mg Oral BID heparin (porcine) 5,000 Units Subcutaneous Q12H PHENobarbital 64.8 mg Oral BID memantine 5 mg Oral BID phenytoin 200 mg Oral Nightly levETIRAcetam 2,000 mg Oral BID clonazePAM 1 mg Oral Nightly levothyroxine 200 mcg Oral QAM levothyroxine 50 mcg Oral Every Other Day QUEtiapine 75 mg Oral QAM QUEtiapine 300 mg Oral Nightly PARoxetine 40 mg Oral Daily folic acid 1 mg Oral Daily Continuous Infusions: PRN Meds:haloperidol, oxyCODONE-acetaminophen, LORazepam, ondansetron, acetaminophen, haloperidol lactate Allergies: No Known Allergies Review of Systems: Review of Systems Unable to perform ROS: Mental status change Objective: Vitals: BP 99/67 Pulse 78 Temp 98.3 F (36.8 C) (Axillary) Resp 21 Ht 5' 8 (1.727 m) Wt 187 lb 1.6 oz (84.9 kg) SpO2 91% BMI 28.45 kg/m CURRENT TEMPERATURE: Temp: 98.3 F (36.8 C) MAXIMUM TEMPERATURE OVER 24HRS: Temp (24hrs), Av.4 F (36.9 C), Min:97.6 F (36.4 C), Max:98.9 F (37.2 C) Physical Exam Vitals signs and nursing note reviewed. Constitutional: Appearance: Normal appearance. He is normal weight. HENT: Head: Normocephalic and atraumatic. Nose: Nose normal. Eyes: General: No scleral icterus. Extraocular Movements: Extraocular movements intact. Pupils: Pupils are equal, round, and reactive to light. Neck: Musculoskeletal: Normal range of motion and neck supple. Cardiovascular: Rate and Rhythm: Normal rate and regular rhythm. Pulses: Normal pulses. Heart sounds: Normal heart sounds. No murmur. No friction rub. No gallop. Abdominal: General: There is no distension. Palpations: There is no mass. Tenderness: There is abdominal tenderness. Hernia: No hernia is present. Comments: Wound vac in place and wound appears benign Genitourinary: Testes: Normal. Musculoskeletal: Normal range of motion. Skin: General: Skin is warm. Coloration: Skin is not jaundiced. Neurological: General: No focal deficit present. Mental Status: He is alert and oriented to person, place, and time. Psychiatric: Attention and Perception: Attention normal. Mood and Affect: Mood normal. Speech: Speech normal. Behavior: Behavior is cooperative. Cognition and Memory: Cognition is impaired. Judgment: Judgment is impulsive. Diet: DIET GENERAL; Data: Scheduled Meds: Reviewed Continuous Infusions: Labs CBC: Recent Labs 08/07/20 0540 08/08/20 0540 08/09/20 0505 WBC 9.3 7.4 6.9 HGB 10.1* 9.2* 10.1* HCT 32.0* 28.5* 31.2* PLT 369 364 375 BMP: Recent Labs 08/07/20 0540 08/08/20 0540 08/09/20 0505 NA 136 136 137 K 4.1 3.7 4.0 CL 102 101 101 CO2 29 29 28 BUN 8* 10 9 CREATININE 0.77 0.88 0.73 GLUCOSE 94 114* 93 LFT's: Recent Labs 08/07/20 0540 08/08/20 0540 08/09/20 0505 AST 28 24 25 ALT 21 22 26 BILITOT 0.3 0.2 0.3 ALKPHOS 92 95 110 Troponin: No results for input(s): TROPONINI in the last 72 hours. BNP: No results for input(s): BNP in the last 72 hours. INR: No results for input(s): INR in the last 72 hours. Lipids: No results for input(s): CHOL, HDL in the last 72 hours. Invalid input(s): LDLCALCU Urinalysis: Lab Results Component Value Date NITRU NEGATIVE 10/11/2016 WBCUA 0 TO 2 10/11/2016 BACTERIA TRACE 10/11/2016 RBCUA None 10/11/2016 SPECGRAV 1.010 10/11/2016 GLUCOSEU NEGATIVE 10/11/2016 I/O: I/O last 3 completed shifts: In: 1080 [P.O.:1080] Out: 1200 [Urine:1200] Telemetry: no arrhythmia seen Radiology: XR SHOULDER RIGHT (MIN 2 VIEWS) Final Result 1. No acute fracture or dislocation of the right shoulder is seen. 2. Multiple remote, healed fracture deformities of the lateral aspect of the right rib cage. XR CHEST PORTABLE Final Result Right subclavian central line positioning as above without evidence of pneumothorax or other complication. XR ABDOMEN (KUB) (SINGLE AP VIEW) Final Result Multiple dilated small bowel loops up to 4.4 cm in caliber. Cannot exclude obstruction on these images. Close follow-up and repeat x-ray and/or surgical evaluation recommended. Consider follow-up x-ray in 2-[address] is not to be done. CT ABDOMEN PELVIS WO CONTRAST Additional Contrast? None Final Result IMPRESSION CT HEAD WO CONTRAST Final Result 1. No acute intracranial abnormality. 2. Chronic small vessel ischemia, minimal chronic sinusitis and remote nasal bone fractures. CT CERVICAL SPINE WO CONTRAST Final Result 1. No acute fracture or subluxation. 2. Multilevel degenerative changes as described above. XR SHOULDER RIGHT (MIN 2 VIEWS) Final Result 1. No acute fracture or dislocation of the right shoulder. 2. Mild right acromioclavicular joint osteoarthritis. 3. Age-indeterminate right rib fracture deformities. CT ABDOMEN PELVIS WO CONTRAST Additional Contrast? None Final Result 1. Dilated small bowel loops in the right lower quadrant with a tract of extraluminal gas in this area, indicative of focal perforation, with a moderate amount of surrounding infiltrative/inflammatory changes. There are 2 linear metallic foreign bodies within one of these dilated loops as well as pneumatosis intestinalis, that is suspicious for a mechanical perforation related to these foreign bodies. The small bowel dilatation could be due to a partial obstruction and/or an ileus. 2. Small amount of free fluid as well as bubbles of free intraperitoneal gas in the upper abdomen. No loculated fluid collections are identified to suggest an abscess. 3. Mild fatty infiltration of the liver. 4. Nonobstructing left renal calculi. No hydronephrosis. Critical results were discussed with Dr. Lynn on 07/22/2020 at 1:52 PM. Assessment/Plan Pancho Mcpherson is a 60 y.o. male, who was admitted with Perforated viscus. Active Hospital Problems Diagnosis Date Noted Bowel perforation (HCC) [K63.1] Delirium [R41.0] Hypokalemia [E87.6] Anemia [D64.9] Tear of urethra [S37.33XA] Perforated viscus [R19.8] 07/22/2020 Plan: 1. Hyperglycemia, noted on labs incidentally and complicated by being on D5- containing fluids whileNPO. Hemoglobin A1c 5.5%, hence hyperglycemia was acute in the current setting. Discontinued accuchecks and SSI as this has resolved. 2. Perforated viscus, POD #18 from surgical intervention by Dr. Rodriges, wound vac in place. Continue management per Dr. Rodriges. Changed IV narcotics to PO percocet on 08/08. Has only required one dose so elliot. 3. Urethral perforation, traumatic, completed duration of catheter placement and now removed. Monitor for complication. Urinating OK. 4. Anemia, postoperative and complicated by bleeding from traumatic urethral perforation. Stabilized with hemoglobin in 9-10 range. Continue to monitor and transfuse for hemoglobin less than 7. 5. Hypokalemia: at goal currently. Continue to supplement as needed. 6. Hypertension: BP on low side overall. Will decrease metoprolol to 12.5 mg BID with parameters. 7. Wound infection: reviewed general surgery notes. Clinical evidence of infection has resolved. Discontinued antibiotics on 08/08, continue to monitor. 8. Bipolar disorder with psychosis: continue home medications including clonazepam 1 mg nightly, quetiapine 75 mg QAM and 300 mg QHS, and paroxetine 40 mg QAM. Continue benadryl PO 25 mg but transition to Q8H dosing. Delirium has improved but still impulsive and agitated at times. Transitioned PRN lorazepam and haldol to PO dosing on 08/08 in an effort to transition to a rehab plan of care. Patient remains at risk of self-harm and has been intermittently displaying with poor impulse control. 9. Seizure disorder: seizure precautions. Continue phenobarbital 45 mg QAM and 60 mg noon and QHS. Continue Phenytoin 200 mg QHS. Continue Keppra 2000 mg BID. 10. Obstructive sleep apnea: continue home CPAP when sleeping. 11. Hypothyroidism: continue home levothyroxine 200 mcg alternating with 250 mcg. 12. Vitamin D Deficiency: continue vitamin D 2000 IU daily. 13. Hyperlipidemia: continue atorvastatin 10 mg nightly. 14. Code status is [id number]. Prophylaxis: 1) Stress Ulcer Protocol Active: PO famotidine 2) DVT Protocol Active: lovenox Code Status: DNR-CCA FEN: DIET GENERAL; DISPO: likely able to transition to swing bed/SNF Monday if continued stability PT/OT Eval Status: working with patient General Attestation Evaluation of the patient today involved thorough review of all progress notes, laboratory tests, consults, radiology, and other diagnostic studies as appropriate. Quang Esquivel MD Internal Medicine Hospitalist * Quang Esquivel MD - 08/08/2020 1:52 PM EST [facility] MEDICINE - PROGRESS NOTE Patient Name: Pancho Mcpherson Unit/Bed: 119/119-02 Date of : 1960 Current Hospital Day: Hospital Day: 18 Admit Date: 07/22/2020 Primary Care Provider: MUNA Bingham CNP Chief Complaint: perforated viscus secondary to foreign body Subjective: Patient seen and examined at bedside. Pancho Mcpherson is a 60 y.o. male who is seen in follow up. Nursing reports he did have agitation overnight last night, has been better today. Patient notes needing to urinate, otherwise has no complaints for me. He remains a limited historian. Past Medical History, Past Surgical History, Family History, and Social History were reviewed in EHR and updates made as appropriate. Medications: Scheduled Meds: sodium chloride flush 10 mL Intravenous BID collagenase Topical Daily PHENobarbital 64.8 mg Oral Daily sennosides-docusate sodium 1 tablet Oral BID metoprolol tartrate 25 mg Oral BID heparin (porcine) 5,000 Units Subcutaneous Q12H diphenhydrAMINE 50 mg Intravenous Q6H famotidine (PEPCID) injection 20 mg Intravenous BID PHENobarbital 64.8 mg Oral BID memantine 5 mg Oral BID phenytoin 200 mg Oral Nightly levETIRAcetam 2,000 mg Oral BID clonazePAM 1 mg Oral Nightly levothyroxine 200 mcg Oral QAM levothyroxine 50 mcg Oral Every Other Day QUEtiapine 75 mg Oral QAM QUEtiapine 300 mg Oral Nightly PARoxetine 40 mg Oral Daily folic acid 1 mg Oral Daily piperacillin-tazobactam 3.375 g Intravenous Q8H Continuous Infusions: dextrose 5% in lactated ringers 30 mL/hr at 08/07/20 1933 PRN Meds:LORazepam, HYDROmorphone, acetaminophen, HYDROmorphone, haloperidol lactate, ondansetron, ketorolac Allergies: No Known Allergies Review of Systems: Review of Systems Unable to perform ROS: Mental status change Objective: Vitals: BP 102/66 Pulse 69 Temp 98.5 F (36.9 C) (Axillary) Resp 18 Ht 5' 8 (1.727 m) Wt 189 lb 6 oz (85.9 kg) SpO2 94% BMI 28.79 kg/m CURRENT TEMPERATURE: Temp: 98.5 F (36.9 C) MAXIMUM TEMPERATURE OVER 24HRS: Temp (24hrs), Av.5 F (36.9 C), Min:97.5 F (36.4 C), Max:100.3 F(37.9 C) Physical Exam Vitals signs and nursing note reviewed. Constitutional: Appearance: Normal appearance. He is normal weight. HENT: Head: Normocephalic and atraumatic. Nose: Nose normal. Eyes: General: No scleral icterus. Extraocular Movements: Extraocular movements intact. Pupils: Pupils are equal, round, and reactive to light. Neck: Musculoskeletal: Normal range of motion and neck supple. Cardiovascular: Rate and Rhythm: Normal rate and regular rhythm. Pulses: Normal pulses. Heart sounds: Normal heart sounds. No murmur. No friction rub. No gallop. Abdominal: General: There is no distension. Palpations: There is no mass. Tenderness: There is abdominal tenderness. Hernia: No hernia is present. Comments: Wound vac in place and wound appears benign Genitourinary: Testes: Normal. Musculoskeletal: Normal range of motion. Skin: General: Skin is warm. Coloration: Skin is not jaundiced. Neurological: General: No focal deficit present. Mental Status: He is alert and oriented to person, place, and time. Psychiatric: Attention and Perception: Attention normal. Mood and Affect: Mood normal. Speech: Speech normal. Behavior: Behavior is cooperative. Cognition and Memory: Cognition is impaired. Judgment: Judgment is impulsive. Diet: DIET GENERAL; Data: Scheduled Meds: Reviewed Continuous Infusions: dextrose 5% in lactated ringers 30 mL/hr at 08/07/20 1933 Labs CBC: Recent Labs 08/06/2025 08/07/20 0540 08/08/20 0540 WBC 7.4 9.3 7.4 HGB 9.2* 10.1* 9.2* HCT 29.1* 32.0* 28.5* PLT 257 369 364 BMP: Recent Labs 08/06/20 0525 08/07/20 0540 08/08/20 0540 NA 134* 136 136 K 3.9 4.1 3.7 CL 103 102 101 CO2 26 29 29 BUN 9 8* 10 CREATININE 0.66 0.77 0.88 GLUCOSE 113* 94 114* LFT's: Recent Labs 08/06/20 0525 08/07/20 0540 08/08/20 0540 AST 35 28 24 ALT 19 21 22 BILITOT 0.2 0.3 0.2 ALKPHOS 85 92 95 Troponin: No results for input(s): TROPONINI in the last 72 hours. BNP: No results for input(s): BNP in the last 72 hours. INR: No results for input(s): INR in the last 72 hours. Lipids: No results for input(s): CHOL, HDL in the last 72 hours. Invalid input(s): LDLCALCU Urinalysis: Lab Results Component Value Date NITRU NEGATIVE 10/11/2016 WBCUA 0 TO 2 10/11/2016 BACTERIA TRACE 10/11/2016 RBCUA None 10/11/2016 SPECGRAV 1.010 10/11/2016 GLUCOSEU NEGATIVE 10/11/2016 I/O: I/O last 3 completed shifts: In: 1600 [P.O.:1600] Out: 1225 [Urine:1225] Telemetry: no arrhythmia seen Radiology: XR SHOULDER RIGHT (MIN 2 VIEWS) Final Result 1. No acute fracture or dislocation of the right shoulder is seen. 2. Multiple remote, healed fracture deformities of the lateral aspect of the right rib cage. XR CHEST PORTABLE Final Result Right subclavian central line positioning as above without evidence of pneumothorax or other complication. XR ABDOMEN (KUB) (SINGLE AP VIEW) Final Result Multiple dilated small bowel loops up to 4.4 cm in caliber. Cannot exclude obstruction on these images. Close follow-up and repeat x-ray and/or surgical evaluation recommended. Consider follow-up x-ray in 2-[address] is not to be done. CT ABDOMEN PELVIS WO CONTRAST Additional Contrast? None Final Result IMPRESSION CT HEAD WO CONTRAST Final Result 1. No acute intracranial abnormality. 2. Chronic small vessel ischemia, minimal chronic sinusitis and remote nasal bone fractures. CT CERVICAL SPINE WO CONTRAST Final Result 1. No acute fracture or subluxation. 2. Multilevel degenerative changes as described above. XR SHOULDER RIGHT (MIN 2 VIEWS) Final Result 1. No acute fracture or dislocation of the right shoulder. 2. Mild right acromioclavicular joint osteoarthritis. 3. Age-indeterminate right rib fracture deformities. CT ABDOMEN PELVIS WO CONTRAST Additional Contrast? None Final Result 1. Dilated small bowel loops in the right lower quadrant with a tract of extraluminal gas in this area, indicative of focal perforation, with a moderate amount of surrounding infiltrative/inflammatory changes. There are 2 linear metallic foreign bodies within one of these dilated loops as well as pneumatosis intestinalis, that is suspicious for a mechanical perforation related to these foreign bodies. The small bowel dilatation could be due to a partial obstruction and/or an ileus. 2. Small amount of free fluid as well as bubbles of free intraperitoneal gas in the upper abdomen. No loculated fluid collections are identified to suggest an abscess. 3. Mild fatty infiltration of the liver. 4. Nonobstructing left renal calculi. No hydronephrosis. Critical results were discussed with Dr. Lynn on 07/22/2020 at 1:52 PM. Assessment/Plan Pancho Mcpherson is a 60 y.o. male, who was admitted with Perforated viscus. Active Hospital Problems Diagnosis Date Noted Bowel perforation (HCC) [K63.1] Delirium [R41.0] Hypokalemia [E87.6] Anemia [D64.9] Tear of urethra [S37.33XA] Perforated viscus [R19.8] 07/22/2020 Plan: 1. Hyperglycemia, noted on labs incidentally and complicated by being on D5- containing fluids whileNPO. Hemoglobin A1c 5.5%, hence hyperglycemia was acute in the current setting. Discontinued accuchecks and SSI as this has resolved. 2. Perforated viscus, POD #17 from surgical intervention by Dr. Rodriges, wound vac in place. Continue management per Dr. Rodriges. 3. Urethral perforation, traumatic, completed duration of catheter placement and now removed. Monitor for complication. Urinating OK into urinal during our visit. 4. Anemia, postoperative and complicated by bleeding from traumatic urethral perforation. Stabilized with hemoglobin in 9s. Continue to monitor and transfuse for hemoglobin less than 7. 5. Hypokalemia: at goal currently. Continue to supplement as needed. 6. Hypertension: 7. Wound infection: reviewed general surgery notes. Clinical evidence of infection has resolved. Discontinue antibiotics and monitor. 8. Bipolar disorder with psychosis: continue home medications as feasible including clonazepam 1 mgnightly, quetiapine 75 mg QAM and 300 mg QHS, and paroxetine 40 mg QAM. Continue benadryl but transition to PO 25 mg Q6H. Delirium has improved but still impulsive and agitated at times. Transition PRN lorazepam and haldol to PO dosing in an effort to transition to a rehab plan of care. Patient remains at risk of self-harm and has been intermittently displaying with poor impulse control. 9. Seizure disorder: seizure precautions. Continue phenobarbital 45 mg QAM and 60 mg noon and QHS. Continue Phenytoin 200 mg QHS. Continue Keppra 2000 mg BID. Obstructive sleep apnea: continue home CPAP when sleeping. 10. Hypothyroidism: continue home levothyroxine 200 mcg alternating with 250 mcg. 11. Vitamin D Deficiency: continue vitamin D 2000 IU daily. 12. Hyperlipidemia: continue atorvastatin 10 mg nightly. 13. Code status is [id number]-NY-[id number]. Prophylaxis: 1) Stress Ulcer Protocol Active: transition to PO famotidine 2) DVT Protocol Active: lovenox Code Status: DNR-CCA FEN: DIET GENERAL; DISPO: pending clinical improvement PT/OT Eval Status: on hold currently General Attestation Evaluation of the patient today involved thorough review of all progress notes, laboratory tests, consults, radiology, and other diagnostic studies as appropriate. Quang Esquivel MD Internal Medicine Hospitalist * Justen Burch, DO - 08/07/2020 1:11 PM EST Progress Note Date:08/07/2020 Room:119/119-02 Patient Name:Pancho Mcpherson Date of :1960 Age:60 y.o. Subjective Subjective: Symptoms: He reports weakness. No cough, chest pain, headache, chest pressure, diarrhea or anxiety. Diet: Adequate intake. Activity level: Impaired due to weakness. Pain: He reports no pain. Review of Systems Unable to perform ROS: Psychiatric disorder Respiratory: Negative for cough. Cardiovascular: Negative for chest pain. Gastrointestinal: Negative for diarrhea. Neurological: Positive for weakness. Objective Vitals Last 24 Hours: TEMPERATURE: Temp Av.9 F (36.6 C) Min: 97.4 F (36.3 C) Max: 98.9 F (37.2 C) RESPIRATIONS RANGE: Resp Av.3 Min: 16 Max: 35 PULSE OXIMETRY RANGE: SpO2 Av.7 % Min: 95 % Max: 100 % PULSE RANGE: Pulse Av.6 Min: 70 Max: 96 BLOOD PRESSURE RANGE: Systolic (24hrs), Av , Min:92 , Max:132 ; Diastolic (24hrs), Av, Min:56, Max:111 I/O (24Hr): Intake/Output Summary (Last 24 hours) at 08/07/2020 1311 Last data filed at 08/07/2020 1229 Gross per 24 hour Intake 2810 ml Output 3425 ml Net -615 ml Objective: General Appearance: Comfortable and in no acute distress. Vital signs: (most recent): Blood pressure (!) 94/58, pulse 82, temperature 97.5 F (36.4 C), resp. rate 20, height 5' 8 (1.727 m), weight 186 lb 6 oz (84.5 kg), SpO2 97 %. Vital signs are normal. Output: Producing urine and producing stool. HEENT: Normal HEENT exam. Lungs: Normal effort and normal respiratory rate. No rales, wheezes or rhonchi. Heart: Normal rate. S1 normal and S2 normal. Abdomen: Abdomen is soft. (Wound vac in place). Bowel sounds are normal. There is incisional tenderness. There is no suprapubic area tenderness. There is no rebound tenderness. There is no guarding. Extremities: Normal range of motion. There is no dependent edema or local swelling. Pulses: Distal pulses are intact. Neurological: Patient is alert and oriented to person, place and time. Pupils: Pupils are equal, round, and reactive to light. Skin: Warm and dry. No ecchymosis, cyanosis or ulceration. Labs/Imaging/Diagnostics Labs: CBC: Recent Labs 08/05/20 0620 08/06/20 0525 08/07/20 0540 WBC 7.6 7.4 9.3 RBC 3.04* 3.17* 3.52* HGB 8.8* 9.2* 10.1* HCT 27.5* 29.1* 32.0* MCV 91 92 91 PLT 313 257 369 CHEMISTRIES: Recent Labs 08/05/20 0621 08/06/20 0525 08/07/20 0540 NA 137 134* 136 K 3.7 3.9 4.1 CL 103 103 102 CO2 27 26 29 BUN 9 9 8* CREATININE 0.67 0.66 0.77 GLUCOSE 134* 113* 94 PHOS 4.4 -- 4.7* MG 2.1 2.1 2.1 PT/INR:No results for input(s): PROTIME, INR in the last 72 hours. APTT:No results for input(s): APTT in the last 72 hours. LIVER PROFILE: Recent Labs 08/05/20 0621 08/06/20 0525 08/07/20 0540 AST 20 35 28 ALT 17 19 21 BILITOT 0.2 0.2 0.3 ALKPHOS 81 85 92 Imaging Last 24 Hours: No results found. Assessment//Plan Hospital Problems Last Modified POA * (Principal) Perforated viscus 07/22/2020 Yes Bowel perforation (HCC) 07/26/2020 Yes Delirium 07/26/2020 Yes Hypokalemia 07/26/2020 Yes Anemia 07/26/2020 Yes Tear of urethra 07/26/2020 Yes Assessment: (1. Perforated viscus, POD #15 from surgical intervention by Dr. Rodriges, wound vac in place. Continue management per Dr. Rodriges. 2. Urethral perforation, traumatic, continue coude catheter and management per Dr. Sandoval. Catheter discontinued at this time 3. Anemia, postoperative and complicated by bleeding from traumatic urethral perforation. Hgb improved to 10 grams 4. Hypokalemia: improved to 3.7 5. Hypertension improved 6. Wound infection: unclear if present - on zosyn. Added empiric vancomycin overnight given patientdigging in open wound on hospital day #3. 7. Bipolar disorder with psychosis: continue home medications as feasible including clonazepam 1 mgnightly, quetiapine 75 mg QAM and 300 mg QHS, and paroxetine 40 mg QAM. Patient with history of delirium . Continue PRN lorazepam and PRN haloperidol given risk of self-harm patient has been intermittently displaying with poor impulse control. Dr. Rodriges increased phenobarbital dosing. 8. Seizure disorder: seizure precautions. Patient had a seizure yesterday. Continue phenobarbital 45 mg QAM and 60 mg noon and QHS. Continue Phenytoin 200 mg QHS. Continue Keppra 2000 mg BID. Check phenytoin and levetiracetam levels in a.m. tomorrow. 9. Obstructive sleep apnea: continue home CPAP when sleeping. 10. Hypothyroidism: continue home levothyroxine 200 mcg alternating with 250 mcg. 11. Vitamin D Deficiency: continue vitamin D 2000 IU daily. 12. Hyperlipidemia: continue atorvastatin 10 mg nightly. 13. Code status is [id number]). Plan: Per physical therapy. Consults: occupational therapy and physical therapy. Administer medications as ordered. * Virginia Abbott RN - 08/06/2020 9:33 PM EST Patient self removed mitts from both hands. Patient self removed Central line and peripheral IV as well. Patient is agitated. Notifying Dr. Rodriges now. * Justen Burch DO - 08/06/2020 3:46 PM EST Progress Note Date:08/06/2020 Room:[address] [place] [address] Patient Name:Pancho Mcpherson Date of :1960 Age:60 y.o. Subjective Subjective: Symptoms: Stable. He reports weakness. No chest pain, headache, chest pressure, diarrhea or anxiety. Diet: Adequate intake. Activity level: Normal. Pain: He reports no pain. Review of Systems Unable to perform ROS: Mental status change Cardiovascular: Negative for chest pain. Gastrointestinal: Negative for diarrhea. Neurological: Positive for weakness. Objective Vitals Last 24 Hours: TEMPERATURE: Temp Av.5 F (36.9 C) Min: 97.7 F (36.5 C) Max: 99.5 F (37.5 C) RESPIRATIONS RANGE: Resp Av.8 Min: 13 Max: 37 PULSE OXIMETRY RANGE: SpO2 Av.8 % Min: 92 % Max: 100 % PULSE RANGE: Pulse Av.5 Min: 65 Max: 84 BLOOD PRESSURE RANGE: Systolic (24hrs), Av , Min:81 , Max:125 ; Diastolic (24hrs), Av, Min:52, Max:77 I/O (24Hr): Intake/Output Summary (Last 24 hours) at 08/06/2020 1546 Last data filed at 08/06/2020 1201 Gross per 24 hour Intake 940 ml Output 3800 ml Net -2860 ml Objective: General Appearance: In no acute distress and comfortable. Vital signs: (most recent): Blood pressure (!) 99/56, pulse 73, temperature 98.9 F (37.2 C), temperature source Axillary, resp. rate 22, height 5' 8 (1.727 m), weight 190 lb 0.6 oz (86.2 kg), SpO2 100 %. Vital signs are normal. Output: Producing urine and producing stool. HEENT: Normal HEENT exam. Lungs: Normal effort. Heart: Normal rate. S1 normal and S2 normal. Abdomen: Abdomen is soft. Bowel sounds are normal. There is incisional tenderness. Extremities: Normal range of motion. There is no dependent edema or local swelling. Pulses: Distal pulses are intact. Neurological: Patient is alert and oriented to person, place and time. Normal strength. Pupils: Pupils are equal, round, and reactive to light. Skin: Warm and dry. No ecchymosis, cyanosis or ulceration. Labs/Imaging/Diagnostics Labs: CBC: Recent Labs 08/04/2045508/05/20 0608/06/20 0525 WBC 8.0 7.6 7.4 RBC 2.95* 3.04* 3.17* HGB 8.7* 8.8* 9.2* HCT 26.6* 27.5* 29.1* MCV 90 91 92 PLT 269 313 257 CHEMISTRIES: Recent Labs 08/04/2045408/05/20 0621 08/06/20 0525 NA 136 137 134* K 3.8 3.7 3.9 CL 103 103 103 CO2 27 27 26 BUN 9 9 9 CREATININE 0.71 0.67 0.66 GLUCOSE 111* 134* 113* PHOS -- 4.4 -- MG 2.1 2.1 2.1 PT/INR:No results for input(s): PROTIME, INR in the last 72 hours. APTT:No results for input(s): APTT in the last 72 hours. LIVER PROFILE: Recent Labs 08/04/2045408/05/20 0621 08/06/20 0525 AST 19 20 35 ALT 16 17 19 BILITOT 0.2 0.2 0.2 ALKPHOS 83 81 85 Imaging Last 24 Hours: No results found. Assessment//Plan Hospital Problems Last Modified POA * (Principal) Perforated viscus 07/22/2020 Yes Bowel perforation (HCC) 07/26/2020 Yes Delirium 07/26/2020 Yes Hypokalemia 07/26/2020 Yes Anemia 07/26/2020 Yes Tear of urethra 07/26/2020 Yes Assessment: Condition: In stable condition. Improving. (1. Perforated viscus, POD #14 from surgical intervention by Dr. Rodriges, wound vac in place. Continue management per Dr. Rodriges. 2. Urethral perforation, traumatic, continue coude catheter and management per Dr. Sandoval. Plan to leave catheter in place x 2 weeks. Soft restraints placed due to patient being unable to understand need for catheter and impulsive removal x 2 causing significant self-harm (urethral perforation, severe bleeding, patient has already removed coude catheter x 1 despite meds and mitts in place). 3. Anemia, postoperative and complicated by bleeding from traumatic urethral perforation. Hgb around 8 grams grams 4. Hypokalemia: improved to 3.7 5. Hypertension improved 6. Wound infection: unclear if present - on zosyn. Added empiric vancomycin overnight given patientdigging in open wound on hospital day #3. 7. Bipolar disorder with psychosis: continue home medications as feasible including clonazepam 1 mgnightly, quetiapine 75 mg QAM and 300 mg QHS, and paroxetine 40 mg QAM. Patient with history of delirium . Continue PRN lorazepam and PRN haloperidol given risk of self-harm patient has been intermittently displaying with poor impulse control. Dr. Rodriges increased phenobarbital dosing. 8. Seizure disorder: seizure precautions. Patient had a seizure yesterday. Continue phenobarbital 45 mg QAM and 60 mg noon and QHS. Continue Phenytoin 200 mg QHS. Continue Keppra 2000 mg BID. Check phenytoin and levetiracetam levels in a.m. tomorrow. 9. Obstructive sleep apnea: continue home CPAP when sleeping. 10. Hypothyroidism: continue home levothyroxine 200 mcg alternating with 250 mcg. 11. Vitamin D Deficiency: continue vitamin D 2000 IU daily. 12. Hyperlipidemia: continue atorvastatin 10 mg nightly. 13. Code status is [id number] 14. Nutrition on TPN via central line ordered by Dr. Rodriges ). Plan: Per physical therapy. Consults: occupational therapy and physical therapy. Diet Plan: on TPN via R subclavian TLC. Administer medications as ordered. * Consuelo Bishop, OT - 08/06/2020 12:20 PM EST Facility/Department: [facility] ICU Occupational Therapy Daily Treatment Note NAME: Pancho Mcpherson : 1960 Date of Service: 08/06/2020 Discharge Recommendations: Subacute/Longterm Facility OT Equipment Recommendations Other: Pt required increased assistance and would benefit from a SNF at this time. Assessment Performance deficits / Impairments: Decreased safe awareness;Decreased functional mobility ;Decreased ADL status;Decreased cognition;Decreased endurance;Decreased strength;Decreased ROM;Decreased high-level IADLs Assessment: Pt was re-assessed on this date. Pt demonstrates decreased functional mobility and ability to care for self since last evaluation secondary to medical reasons. Pt required max A for sit to supine. min Ax2 for standing at EOB. Pt would benefit from continued OT treatment Treatment Diagnosis: Perforated viscus Prognosis: Fair OT Education: OT Role;Transfer Training Patient Education: Pt verbalized understanding . Barriers to Learning: MRDD REQUIRES OT FOLLOW UP: Yes Activity Tolerance Activity Tolerance: Patient limited by fatigue;Treatment limited secondary to decreased cognition Activity Tolerance: Pt was fatigued on this date. Safety Devices Safety Devices in place: Yes Type of devices: Patient at risk for falls;Gait belt;All fall risk precautions in place;Call light within reach;Left in bed Patient Diagnosis(es): The primary encounter diagnosis was Bowel perforation (HCC). Diagnoses of Acute peritonitis (HCC) and Foreign body ingestion, initial encounter were also pertinent to this visit. Restrictions Restrictions/Precautions Restrictions/Precautions: Fall Risk, Isolation(hx of MRSA; MRDD) Required Braces or Orthoses?: Yes Required Braces or Orthoses Other: Abdominal Binder Position Activity Restriction Other position/activity restrictions: pt currently in hand mittens to prevent pt pulling on all tubes and wires, due to pt has pulled out multiple IVs, catheter and wound vacs, etc. Subjective General Comment Comments: Pt was received supine in bed and agreeable to OT/PT co-treatment on this date. Vital Signs Patient Currently in Pain: Denies Orientation Orientation Overall Orientation Status: Impaired Orientation Level: Oriented to place;Oriented to person Objective ADL Toileting: Dependent/Total Additional Comments: Not tested on this date. Pt has bilateral mitts on at this time, increased assistance. Balance Sitting Balance: Dependent/Total Standing Balance: Unable to assess(comment) Bed mobility Bridging: Dependent/Total Rolling to Left: 2 Person assistance;Dependent/Total Rolling to Right: Dependent/Total;2 Person assistance Supine to Sit: 2 Person assistance;Maximum assistance Sit to Supine: Dependent/Total;2 Person assistance Scootin Person assistance;Dependent/Total Comment: Pt required constant encouragement to participate with therapy. Pt agreeable that he wanted to get up into the chair but when starting the transfers, pt did not help much if at any with transfers. Pt sat up at EOB x 10 minutes with max A x 1-2 to maintain static seated balance with multiple LOB requiring 2 assist to recover. Pt sat at EOB to increase core/trunk control and promote upright posture Transfers Transfer Comments: CGA with mod verbal cues for proper technique and hand placement. Pt takes 3 side steps toward HOB with FWW and min A. Cognition Overall Cognitive Status: Exceptions Arousal/Alertness: Inconsistent responses to stimuli Following Commands: Follows one step commands with repetition;Inconsistently follows commands Attention Span: Difficulty dividing attention;Unable to maintain attention Safety Judgement: Decreased awareness of need for safety Insights: Decreased awareness of deficits Initiation: Requires cues for all Sequencing: Requires cues for all Plan Plan Times per week: 1-2x4-5, POC modified this date due to holiday coverage. Plan weeks: acute LOS Current Treatment Recommendations: Strengthening, ROM, Safety Education & Training, Patient/Caregiver Education & Training, Self-Care / ADL, Functional Mobility Training, Endurance Training, Home Management Training Plan Comment: Continue with same POC at this time. Goals combustion analyst goals Time Frame for shelter goals : acute LOS shelter goal 1: Patient will complete TB bathing/dressing SBA combustion analyst goal 2: Patient will complete UE HEP with mod I to increase strength in bilateral UE's for ease with daily tasks. shelter goal 3: Patient will complete functional standing with supervision for 10-15 mins, to increase standing tolerance and endurance. shelter goal 4: Patient will complete all aspects of toileting and hygiene with modified independence. shelter goal 5: Patient will complete all functional transfers with SUP and GOOD safety in prep for discharge. Therapy Time Individual Time In 1037 Time Out 1101 Minutes 24 Charges Units Minutes Self-care/Home management Therapeutic Activity 2 24 Therapeutic Exercise Manual Therapy POC updated this date for frequency Signature: Consuelo MEJIA, OTR/L #[id number] Regulatory Requirements I have reviewed this plan of care and certify a need for medically necessary rehabilitation services. Physician Signature: Date: 07/22/2020 Please sign and fax to [phone] * Laya Rodriges MD - 08/06/2020 12:02 PM PINA Deleon remains sedated. He is awake at times and is eating well. Vital signs are stable he is afebrile. The abdomen is soft and nondistended. The abdomen is nontender. Perineum is not swollen. There is no longer any significant ecchymosis. Lab work is reviewed. Plan will be to discontinue his Pandey catheter and the TPN as well as a central line tomorrow. Hopefully we can lessen his sedation and he can be more active with physical and occupational therapies.I also hope that after reducing his sedation he will leave the wound VAC in place. I believe antibiotics can be discontinued tomorrow as well. * Brissa Jennings RD, LD - 08/06/2020 10:09 AM EST Comprehensive Nutrition Assessment Type and Reason for Visit: Reassess Nutrition Recommendations/Plan & Nutrition Assessment: TPN initiated 07/30, Concerns to self harm pt Hx of pulling out cath- needs placed for 2 weeks. Sedated & under soft restraints. S/P ileocecectomy-wound and severe bleeding from cath. Vit D Def-supplementing, Concerns for fat, fat stephanie vit, chol and B12 absorption. Plans for pt to participate in swing bed program. Per RN note pt pulledout wound vac. Estimated Daily Nutrient Needs: Energy (kcal): 5463-1167; Weight Used for Energy Requirements: Adjusted Protein (g): 105-120 (1.2-1.4/kg admit wt); Weight Used for Protein Requirements: Adjusted Fluid (ml/day): 2485-8884; Method Used for Fluid Requirements: 1 ml/kcal Nutrition Related Findings: TPN Day 7. Per MD note TPN to d/c today surgeon decision to d/c PICC line pending. Wounds: Open Wounds Current Nutrition Therapies: Current Parenteral Nutrition Orders: Type and Formula: 3-in-1 Standard Lipids: None Duration: Continuous Rate/Volume: 75 mL/hr; 1800 mL total Vol Current PN Order Provides: 1530 kcal/d, 60g Pro/d, 176g CHO/d 70g lipids/d which meets 75% pt needs. Goal PN Orders Provides: goal rate 100 mL/hr; 2400 mL total vol. provides 2040 kcal/d, 79g pro/d, 235g CHO/d, 94g Lipid/d which meets 100% pt needs. Anthropometric Measures: Height: 5' 8 (172.7 cm) Current Body Weight: 190 lb (86.2 kg) Admission Body Weight: 191 lb (86.6 kg) Usual Body Weight: 189 lb (85.7 kg) [place] Body Weight: 154 lbs; % [place] Body Weight BMI: 28.9 Adjusted Body Weight: ; No Adjustment Adjusted BMI: BMI Categories: Overweight (BMI 25.0-29.9) Nutrition Diagnosis: Altered GI function related to altered GI structure as evidenced by nutrition support - parenteral nutrition Nutrition Interventions: Food and/or Nutrient Delivery: Continue Current Parenteral Nutrition Nutrition Education/Counseling: Education not appropriate Coordination of Nutrition Care: Continue to monitor while inpatient, Interdisciplinary Rounds Goals: Tolerate TPN, maintian baseline weight. Nutrition Monitoring and Evaluation: Behavioral-Environmental Outcomes: Knowledge or Skill Food/Nutrient Intake Outcomes: Parenteral Nutrition Intake/Tolerance Physical Signs/Symptoms Outcomes: Biochemical Data, Nausea or Vomiting, GI Status, Weight, Nutrition Focused Physical Findings Discharge Planning: Too soon to determine Contact: x [phone] * Virginia Abbott RN - 08/06/2020 3:43 AM EST Patient ripped off wound vac from abdomen. Replaced. Patient educated. * Brissa Mcallister, OT - 08/05/2020 3:47 PM EST [facility] OCCUPATIONAL THERAPY MISSED TREATMENT NOTE [facility] ICU Date: 08/05/2020 Patient Name: Pancho Mcpherson : 1960 (60 y.o.) Gender: male Referring Practitioner: Dr. Rodriges Diagnosis: peforated viscus REASON FOR MISSED TREATMENT: Patient not appropriate secondary to side effects of medication. Plan to re-attempt in the morning. Signature: Brissa Mcallister OTR/L, MOT #[id number] * TammyginaJusten, DO - 08/05/2020 2:22 PM EST Progress Note Date:08/05/2020 Room:119/119-02 Patient Name:Pancho Mcpherson Date of :1960 Age:60 y.o. Subjective Subjective: Symptoms: Stable. No shortness of breath, cough, chest pain, headache, chest pressure, diarrhea or anxiety. Diet: Adequate intake. No nausea or vomiting. Activity level: Normal. Pain: He reports no pain. Review of Systems Constitutional: Negative for chills, diaphoresis and fatigue. HENT: Negative for drooling, ear pain, nosebleeds, sinus pressure, sinus pain and sore throat. Eyes: Negative for pain and redness. Respiratory: Negative for cough and shortness of breath. Cardiovascular: Negative for chest pain. Gastrointestinal: Negative for constipation, diarrhea, nausea and vomiting. Genitourinary: Negative for frequency and hematuria. Musculoskeletal: Negative for back pain, joint swelling and neck pain. Skin: Negative for pallor, rash and wound. Neurological: Positive for seizures. Negative for dizziness, syncope and headaches. Psychiatric/Behavioral: Positive for agitation and behavioral problems. Negative for hallucinationsand self-injury. The patient is not hyperactive. Objective Vitals Last 24 Hours: TEMPERATURE: Temp Av.4 F (36.9 C) Min: 97.7 F (36.5 C) Max: 98.8 F (37.1 C) RESPIRATIONS RANGE: Resp Av Min: 10 Max: 23 PULSE OXIMETRY RANGE: SpO2 Av.5 % Min: 65 % Max: 100 % PULSE RANGE: Pulse Av.8 Min: 67 Max: 96 BLOOD PRESSURE RANGE: Systolic (24hrs), Av , Min:75 , Max:118 ; Diastolic (24hrs), Av, Min:49, Max:88 I/O (24Hr): Intake/Output Summary (Last 24 hours) at 08/05/2020 1422 Last data filed at 08/05/2020 1243 Gross per 24 hour Intake 550 ml Output 3075 ml Net -2525 ml Objective: General Appearance: Comfortable. Vital signs: (most recent): Blood pressure 114/70, pulse 73, temperature 98 F (36.7 C), temperaturesource Axillary, resp. rate 14, height 5' 8 (1.727 m), weight 189 lb 2.5 oz (85.8 kg), SpO2 99 %. Vital signs are normal. Output: Producing urine and producing stool. HEENT: Normal HEENT exam. Lungs: Normal effort. Heart: Normal rate. S1 normal and S2 normal. Abdomen: Abdomen is soft. Bowel sounds are normal. There is no rebound tenderness. There is no guarding. Extremities: Normal range of motion. Pulses: Distal pulses are intact. Neurological: Patient is alert and oriented to person, place and time. Pupils: Pupils are equal, round, and reactive to light. Skin: Warm. No rash or cyanosis. Labs/Imaging/Diagnostics Labs: CBC: Recent Labs 08/03/20 0433 08/04/20 0456 08/05/20 0620 WBC 10.6 8.0 7.6 RBC 3.36* 2.95* 3.04* HGB 9.7* 8.7* 8.8* HCT 30.3* 26.6* 27.5* MCV 90 90 91 PLT 291 269 313 CHEMISTRIES: Recent Labs 08/03/20 0433 08/04/20 0455 08/05/20 0621 NA 137 136 137 K 4.0 3.8 3.7 CL 105 103 103 CO2 28 27 27 BUN 7* 9 9 CREATININE 0.70 0.71 0.67 GLUCOSE 117* 111* 134* PHOS 4.7* -- 4.4 MG 2.2 2.1 2.1 PT/INR:No results for input(s): PROTIME, INR in the last 72 hours. APTT:No results for input(s): APTT in the last 72 hours. LIVER PROFILE: Recent Labs 08/03/20 0433 08/04/20 0455 08/05/20 0621 AST 23 19 20 ALT 18 16 17 BILITOT 0.3 0.2 0.2 ALKPHOS 92 83 81 Imaging Last 24 Hours: No results found. Assessment//Plan Hospital Problems Last Modified POA * (Principal) Perforated viscus 07/22/2020 Yes Bowel perforation (HCC) 07/26/2020 Yes Delirium 07/26/2020 Yes Hypokalemia 07/26/2020 Yes Anemia 07/26/2020 Yes Tear of urethra 07/26/2020 Yes Assessment: Condition: In stable condition. Improving. (1. Perforated viscus, POD #13 from surgical intervention by Dr. Rodriges, wound vac in place. Continue management per Dr. Rodriges. 2. Urethral perforation, traumatic, continue coude catheter and management per Dr. Sandoval. Plan to leave catheter in place x 2 weeks. Soft restraints placed due to patient being unable to understand need for catheter and impulsive removal x 2 causing significant self-harm (urethral perforation, severe bleeding, patient has already removed coude catheter x 1 despite meds and mitts in place). 3. Anemia, postoperative and complicated by bleeding from traumatic urethral perforation. Hgb around 8 grams grams 4. Hypokalemia: improved to 3.7 5. Hypertension improved 6. Wound infection: unclear if present - on zosyn. Added empiric vancomycin overnight given patientdigging in open wound on hospital day #3. 7. Bipolar disorder with psychosis: continue home medications as feasible including clonazepam 1 mgnightly, quetiapine 75 mg QAM and 300 mg QHS, and paroxetine 40 mg QAM. Patient with history of delirium . Continue PRN lorazepam and PRN haloperidol given risk of self-harm patient has been intermittently displaying with poor impulse control. Dr. Rodriges increased phenobarbital dosing. 8. Seizure disorder: seizure precautions. Patient had a seizure yesterday. Continue phenobarbital 45 mg QAM and 60 mg noon and QHS. Continue Phenytoin 200 mg QHS. Continue Keppra 2000 mg BID. Check phenytoin and levetiracetam levels in a.m. tomorrow. 9. Obstructive sleep apnea: continue home CPAP when sleeping. 10. Hypothyroidism: continue home levothyroxine 200 mcg alternating with 250 mcg. 11. Vitamin D Deficiency: continue vitamin D 2000 IU daily. 12. Hyperlipidemia: continue atorvastatin 10 mg nightly. 13. Code status is [id number] 14. Nutrition on TPN via central line ordered by Dr. Rodriges possible d/c this 08/06). Plan: Per physical therapy. Consults: occupational therapy and physical therapy. Administer medications as ordered. * Juliet Peter OTA - 08/05/2020 12:00 PM EST Facility/Department: [facility] ICU Occupational Therapy Daily Treatment Note NAME: Pancho Mcpherson : 1960 Date of Service: 08/05/2020 Discharge Recommendations: Subacute/Longterm Facility OT Equipment Recommendations Other: Pt required increased assistance and would benefit from a SNF at this time. Assessment Performance deficits / Impairments: Decreased safe awareness;Decreased functional mobility ;Decreased ADL status;Decreased cognition;Decreased endurance;Decreased strength;Decreased ROM;Decreased high-level IADLs Assessment: Pt was re-assessed on this date. Pt demonstrates decreased functional mobility and ability to care for self since last evaluation secondary to medical reasons. Pt required max A for sit to supine. min Ax2 for standing at EOB. Pt would benefit from continued OT treatment Treatment Diagnosis: Perforated viscus Prognosis: Good REQUIRES OT FOLLOW UP: Yes Activity Tolerance Activity Tolerance: Patient limited by fatigue Activity Tolerance: Pt was fatigued on this date. Safety Devices Safety Devices in place: Yes Type of devices: Patient at risk for falls;Gait belt;All fall risk precautions in place;Call light within reach;Left in bed Patient Diagnosis(es): The primary encounter diagnosis was Bowel perforation (HCC). Diagnoses of Acute peritonitis (HCC) and Foreign body ingestion, initial encounter were also pertinent to this visit. Restrictions Restrictions/Precautions Restrictions/Precautions: Fall Risk Required Braces or Orthoses?: Yes Required Braces or Orthoses Other: Abdominal Binder Subjective General Comment Comments: Pt was received supine in bed and agreeable to OT/PT co-treatment on this date. Vital Signs Patient Currently in Pain: No Orientation Orientation Overall Orientation Status: Impaired Orientation Level: Oriented to place;Oriented to person Objective Bed mobility Supine to Sit: Contact guard assistance;Minimal assistance Sit to Supine: Contact guard assistance;Minimal assistance Scooting: Stand by assistance Comment: Pt sat EOB x8 min requiring min A to maintain seated upright in prep for daily tasks. Transfers Sit to stand: 2 Person assistance;Contact guard assistance;Minimal assistance Stand to sit: Minimal assistance;Contact guard assistance Transfer Comments: CGA with mod verbal cues for proper technique and hand placement. Pt takes 3 side steps toward HOB with FWW and min A. Cognition Overall Cognitive Status: Exceptions Arousal/Alertness: Inconsistent responses to stimuli;Delayed responses to stimuli Following Commands: Follows one step commands with repetition Safety Judgement: Decreased awareness of need for safety Insights: Decreased awareness of deficits Initiation: Requires cues for all Sequencing: Requires cues for all Plan Plan Times per week: 1-2x5 Plan weeks: acute LOS Current Treatment Recommendations: Strengthening, ROM, Safety Education & Training, Patient/Caregiver Education & Training, Self-Care / ADL, Functional Mobility Training, Endurance Training, Home Management Training Plan Comment: Continue with same POC at this time. Goals shelter goals Time Frame for shelter goals : acute LOS shelter goal 1: Patient will complete TB bathing/dressing SBA shelter goal 2: Patient will complete UE HEP with mod I to increase strength in bilateral UE's for ease with daily tasks. combustion analyst goal 3: Patient will complete functional standing with supervision for 10-15 mins, to increase standing tolerance and endurance. shelter goal 4: Patient will complete all aspects of toileting and hygiene with modified independence. shelter goal 5: Patient will complete all functional transfers with SUP and GOOD safety in prep for discharge. Therapy Time Individual Time In 1055 Time Out 1110 Minutes 15 Charges Units Minutes Self-care/Home management Therapeutic Activity 1 15 Therapeutic Exercise Manual Therapy Signature: Juliet WAYNE #[id number] * Justen Burch DO - 08/04/2020 7:51 PM EST Progress Note Date:08/04/2020 Room:[facility]/119-02 Patient Name:Pancho Mcpherson Date of :1960 Age:60 y.o. Subjective Subjective: Symptoms: Stable. No shortness of breath, cough, chest pain, weakness, headache or diarrhea. Diet: Adequate intake. No nausea or vomiting. Activity level: Normal. Pain: He reports no pain. Review of Systems Constitutional: Negative for appetite change and fatigue. HENT: Negative for ear discharge, facial swelling, hearing loss, rhinorrhea and sore throat. Eyes: Negative for pain and redness. Respiratory: Negative for cough and shortness of breath. Cardiovascular: Negative for chest pain and leg swelling. Gastrointestinal: Negative for abdominal pain, diarrhea, nausea and vomiting. Genitourinary: Negative for flank pain. Musculoskeletal: Negative for joint swelling, myalgias and neck pain. Skin: Negative for pallor, rash and wound. Neurological: Positive for seizures. Negative for weakness, light-headedness and headaches. Psychiatric/Behavioral: Positive for agitation and behavioral problems. Negative for decreased concentration, dysphoric mood and hallucinations. Objective Vitals Last 24 Hours: TEMPERATURE: Temp Av.9 F (36.6 C) Min: 97.4 F (36.3 C) Max: 98.6 F (37 C) RESPIRATIONS RANGE: Resp Av.4 Min: 14 Max: 20 PULSE OXIMETRY RANGE: SpO2 Av.2 % Min: 91 % Max: 100 % PULSE RANGE: Pulse Av.6 Min: 65 Max: 96 BLOOD PRESSURE RANGE: Systolic (24hrs), Av , Min:89 , Max:132 ; Diastolic (24hrs), Av, Min:51, Max:88 I/O (24Hr): Intake/Output Summary (Last 24 hours) at 08/04/20201950 Last data filed at 08/04/2020 1900 Gross per 24 hour Intake 700 ml Output 5550 ml Net -4850 ml Objective: General Appearance: Comfortable. Vital signs: (most recent): Blood pressure 111/88, pulse 89, temperature 98.6 F (37 C), temperaturesource Oral, resp. rate 16, height 5' 8 (1.727 m), weight 193 lb 5 oz (87.7 kg), SpO2 96 %. Vital signs are normal. Output: Producing urine and producing stool. HEENT: Normal HEENT exam. Lungs: Normal effort. Heart: S1 normal and S2 normal. Abdomen: Abdomen is soft. Bowel sounds are normal. There is no abdominal tenderness. (Wound vac in place). Extremities: Normal range of motion. There is no venous stasis, dependent edema or local swelling. Pulses: Distal pulses are intact. Neurological: Patient is alert and oriented to person, place and time. Normal strength. Patient hasnormal muscle tone. Pupils: Pupils are equal, round, and reactive to light. Skin: Warm and dry. No ecchymosis, cyanosis or ulceration. (Tractor tattoo right deltoid area) Labs/Imaging/Diagnostics Labs: CBC: Recent Labs 08/02/2033708/03/2043208/04/206 WBC 10.9 10.6 8.0 RBC 3.34* 3.36* 2.95* HGB 9.8* 9.7* 8.7* HCT 30.2* 30.3* 26.6* MCV 90 90 90 PLT 252 291 269 CHEMISTRIES: Recent Labs 08/02/2033708/03/2043208/04/20 0455 NA 138 137 136 K 3.8 4.0 3.8 CL 104 105 103 CO2 28 28 27 BUN 8* 7* 9 CREATININE 0.66 0.70 0.71 GLUCOSE 115* 117* 111* PHOS -- 4.7* -- MG 2.3 2.2 2.1 PT/INR:No results for input(s): PROTIME, INR in the last 72 hours. APTT:No results for input(s): APTT in the last 72 hours. LIVER PROFILE: Recent Labs 08/02/2033708/03/2043208/04/20 0455 AST 24 23 19 ALT 17 18 16 BILITOT 0.3 0.3 0.2 ALKPHOS 100 92 83 Imaging Last 24 Hours: No results found. Assessment//Plan Hospital Problems Last Modified POA * (Principal) Perforated viscus 07/22/2020 Yes Bowel perforation (HCC) 07/26/2020 Yes Delirium 07/26/2020 Yes Hypokalemia 07/26/2020 Yes Anemia 07/26/2020 Yes Tear of urethra 07/26/2020 Yes Assessment: Condition: In stable condition. Improving. (1. Perforated viscus, POD #12 from surgical intervention by Dr. Rodriges, wound vac in place. Continue management per Dr. Rodriges. 2. Urethral perforation, traumatic, continue coude catheter and management per Dr. Sandoval. Plan to leave catheter in place x 2 weeks. Soft restraints placed due to patient being unable to understand need for catheter and impulsive removal x 2 causing significant self-harm (urethral perforation, severe bleeding, patient has already removed coude catheter x 1 despite meds and mitts in place). 3. Anemia, postoperative and complicated by bleeding from traumatic urethral perforation. Hgb around 8 grams grams 4. Hypokalemia: improved to 3.8 5. Hypertension improved 6. Wound infection: unclear if present - on zosyn. Added empiric vancomycin overnight given patientdigging in open wound on hospital day #3. 7. Bipolar disorder with psychosis: continue home medications as feasible including clonazepam 1 mgnightly, quetiapine 75 mg QAM and 300 mg QHS, and paroxetine 40 mg QAM. Patient with history of delirium . Continue PRN lorazepam and PRN haloperidol given risk of self-harm patient has been intermittently displaying with poor impulse control. Dr. Rodriges increased phenobarbital dosing. 8. Seizure disorder: seizure precautions. Patient had a seizure yesterday. Continue phenobarbital 45 mg QAM and 60 mg noon and QHS. Continue Phenytoin 200 mg QHS. Continue Keppra 2000 mg BID. Check phenytoin and levetiracetam levels in a.m. tomorrow. 9. Obstructive sleep apnea: continue home CPAP when sleeping. 10. Hypothyroidism: continue home levothyroxine 200 mcg alternating with 250 mcg. 11. Vitamin D Deficiency: continue vitamin D 2000 IU daily. 12. Hyperlipidemia: continue atorvastatin 10 mg nightly. 13. Code status is [id number] 14. Nutrition on TPN via central line ordered by Dr. Rodriges possible d/c this 08/06). Plan: Consults: urology and general surgery. Administer medications as ordered. * Juliet Peter OTA - 08/04/2020 10:39 AM EST [facility] OCCUPATIONAL THERAPY MISSED TREATMENT NOTE [facility] ICU Date: 08/04/2020 Patient Name: Pancho Mcpherson : 1960 (60 y.o.) Gender: male Referring Practitioner: Dr. Rodriges Diagnosis: peforated viscus REASON FOR MISSED TREATMENT: Pt on hold and not appropriate for therapy this date due to medical reasons. Plan to check back tomorrow. Signature: Juliet Peter BORJA/L #[id number] * Matthew Shell PTA - 08/04/2020 10:34 AM EST PHYSICAL THERAPY MISSED TREATMENT NOTE [facility] ICU Date: 08/04/2020 Patient Name: Pancho Mcpherson : 1960 (60 y.o.) Gender: male Referring Practitioner: Dr. Rodriges Diagnosis: peforated viscus REASON FOR MISSED TREATMENT: Hold treatment per nursing request. Matthew Shell, SR VICE PRESIDENT [id number] * Justen Burhc DO - 08/03/2020 4:22 PM EST Progress Note Date:08/03/2020 Room:[address] [place] [address] Patient Name:Pancho Mcpherson Date of :1960 Age:60 y.o. Subjective Subjective: Symptoms: No shortness of breath, weakness, headache, chest pressure, diarrhea or anxiety. Activity level: Normal. Pain: He reports no pain. Review of Systems Unable to perform ROS: Psychiatric disorder Respiratory: Negative for shortness of breath. Gastrointestinal: Negative for diarrhea. Neurological: Negative for weakness. Objective Vitals Last 24 Hours: TEMPERATURE: Temp Av.7 F (37.1 C) Min: 98.6 F (37 C) Max: 98.9 F (37.2 C) RESPIRATIONS RANGE: Resp Av.5 Min: 15 Max: 34 PULSE OXIMETRY RANGE: SpO2 Av.2 % Min: 83 % Max: 99 % PULSE RANGE: Pulse Av.8 Min: 65 Max: 94 BLOOD PRESSURE RANGE: Systolic (24hrs), Av , Min:81 , Max:151 ; Diastolic (24hrs), Av, Min:63, Max:98 I/O (24Hr): Intake/Output Summary (Last 24 hours) at 08/03/2020 1622 Last data filed at 08/03/2020 1619 Gross per 24 hour Intake 1870 ml Output 3250 ml Net -1380 ml Objective: General Appearance: Comfortable. Vital signs: (most recent): Blood pressure 118/70, pulse 74, temperature 98.6 F (37 C), temperaturesource Axillary, resp. rate 21, height 5' 8 (1.727 m), weight 188 lb 7.9 oz (85.5 kg), SpO2 93 %. Vital signs are normal. Output: Producing urine and producing stool. HEENT: Normal HEENT exam. Lungs: Normal effort. No decreased breath sounds, wheezes or rhonchi. Heart: Normal rate. S1 normal and S2 normal. Abdomen: Abdomen is soft. There is incisional tenderness. (Midline incision with dressing c/d/i no drainage no erythema). Extremities: Normal range of motion. Pulses: Distal pulses are intact. Neurological: Patient is alert. Pupils: Pupils are equal, round, and reactive to light. Skin: Warm and dry. No ecchymosis, cyanosis or ulceration. Labs/Imaging/Diagnostics Labs: CBC: Recent Labs 08/01/20 0508/02/20 0338 08/03/20 0433 WBC 9.9 10.9 10.6 RBC 3.32* 3.34* 3.36* HGB 9.5* 9.8* 9.7* HCT 30.3* 30.2* 30.3* MCV 91 90 90 PLT 257 252 291 CHEMISTRIES: Recent Labs 08/01/20 0508/02/20 0338 08/03/20 0433 NA 136 138 137 K 3.7 3.8 4.0 CL 99 104 105 CO2 31 28 28 BUN 6* 8* 7* CREATININE 0.77 0.66 0.70 GLUCOSE 111* 115* 117* PHOS -- -- 4.7* MG 2.3 2.3 2.2 PT/INR:No results for input(s): PROTIME, INR in the last 72 hours. APTT:No results for input(s): APTT in the last 72 hours. LIVER PROFILE: Recent Labs 08/01/20 0520 08/02/20 0338 08/03/20 0433 AST 24 24 23 ALT 16 17 18 BILITOT 0.4 0.3 0.3 ALKPHOS 103 100 92 Imaging Last 24 Hours: Xr Shoulder Right (min 2 Views) Result Date: 08/02/2020 HISTORY: Right shoulder pain since a recent fall. XR SHOULDER RIGHT (MIN 2 VIEWS): 08/02/2020 8:21 AM EST COMPARISON: Radiographs right shoulder 07/22/2020. FINDINGS: There are mild degenerative changes again seen of the acromioclavicular joint. No acute fracture or dislocation is seen of the shoulde r. Multiple remote, healed fracture deformities of the lateral aspect of the right rib cage are again seen. Report electronically signed by: Dr. Ball Hampton 1. No acute fracture or dislocation of the right shoulder is seen. 2. Multiple remote, healed fracture deformities of the lateral aspect of the right rib cage. Assessment//Plan Hospital Problems Last Modified POA * (Principal) Perforated viscus 07/22/2020 Yes Bowel perforation (HCC) 07/26/2020 Yes Delirium 07/26/2020 Yes Hypokalemia 07/26/2020 Yes Anemia 07/26/2020 Yes Tear of urethra 07/26/2020 Yes Assessment: Condition: In stable condition. Improving. (1. Perforated viscus, POD #11 from surgical intervention by Dr. Rodriges, wound open. Continue management per Dr. Rodriges. D/w Dr. Rodriges today possible placement of wound vac on abdomen 2. Urethral perforation, traumatic, continue coude catheter and management per Dr. Sandoval. Plan to leave catheter in place x 2 weeks. Soft restraints placed due to patient being unable to understand need for catheter and impulsive removal x 2 causing significant self-harm (urethral perforation, severe bleeding, patient has already removed coude catheter x 1 despite meds and mitts in place). 3. Anemia, postoperative and complicated by bleeding from traumatic urethral perforation. Hgb improved to 9.7 grams 4. Hypokalemia: improved to 3.8 5. Hypertension improved 6. Wound infection: unclear if present - on zosyn. Added empiric vancomycin overnight given patientdigging in open wound on hospital day #3. 7. Bipolar disorder with psychosis: continue home medications as feasible including clonazepam 1 mgnightly, quetiapine 75 mg QAM and 300 mg QHS, and paroxetine 40 mg QAM. Patient with history of delirium . Continue PRN lorazepam and PRN haloperidol given risk of self-harm patient has been intermittently displaying with poor impulse control. Dr. Rodriges increased phenobarbital dosing. 8. Seizure disorder: seizure precautions. Continue phenobarbital 45 mg QAM and 60 mg noon and QHS. Continue Phenytoin 200 mg QHS. Continue Keppra 2000 mg BID. Check phenytoin and levetiracetam levelsin a.m. tomorrow. 9. Obstructive sleep apnea: continue home CPAP when sleeping. 10. Hypothyroidism: continue home levothyroxine 200 mcg alternating with 250 mcg. 11. Vitamin D Deficiency: continue vitamin D 2000 IU daily. 12. Hyperlipidemia: continue atorvastatin 10 mg nightly. 13. Code status is [id number] 14. Nutrition on TPN via central line ordered by Dr. Rodriges possible d/c this 08/06). Plan: Per physical therapy. Consults: occupational therapy and physical therapy. Administer medications as ordered. * Brissa Mcallister, OT - 08/03/2020 1:58 PM EST Facility/Department: [facility] ICU Occupational Therapy Daily Treatment Note NAME: Pancho Mcpherson : 1960 Date of Service: 08/03/2020 Discharge Recommendations: Subacute/Longterm Facility OT Equipment Recommendations Other: Pt required increased assistance and would benefit from a SNF at this time. Assessment Performance deficits / Impairments: Decreased safe awareness;Decreased functional mobility ;Decreased ADL status;Decreased cognition;Decreased endurance;Decreased strength;Decreased ROM;Decreased high-level IADLs Assessment: Pt was re-assessed on this date. Pt demonstrates decreased functional mobility and ability to care for self since last evaluation secondary to medical reasons. Pt required max A for sit to supine. min Ax2 for standing at EOB. Pt would benefit from continued OT treatment Treatment Diagnosis: Perforated viscus OT Education: OT Role;Plan of Care Patient Education: Pt verbalized understanding at this time of new therapy POC. Barriers to Learning: MRDD REQUIRES OT FOLLOW UP: Yes Activity Tolerance Activity Tolerance: Patient limited by fatigue Activity Tolerance: Pt was fatigued on this date. Safety Devices Safety Devices in place: Yes Type of devices: Patient at risk for falls;Gait belt;All fall risk precautions in place;Call light within reach;Left in bed Patient Diagnosis(es): The primary encounter diagnosis was Bowel perforation (HCC). Diagnoses of Acute peritonitis (HCC) and Foreign body ingestion, initial encounter were also pertinent to this visit. Restrictions Restrictions/Precautions Restrictions/Precautions: Fall Risk(MRDD, pandey, IV, mitts UE's) Required Braces or Orthoses?: Yes Required Braces or Orthoses Other: Abdominal Binder Subjective General Comment Comments: Pt was received supine in bed and agreeable to OT/PT co-treatment on this date. Pain Assessment Pain Level: 0 Pain Type: Acute pain Pain Location: Shoulder(Right shoulder pain. yells out when moved.) Pain Orientation: Right Vital Signs Patient Currently in Pain: Denies Orientation Orientation Overall Orientation Status: Impaired Orientation Level: Oriented to place;Oriented to person Objective ADL Additional Comments: Not tested on this date. Pt has bilateral mitts on at this time, increased assistance. Balance Sitting Balance: Moderate assistance Standing Balance: Minimal assistance Standing Balance Time: 2 minutes standing with min Ax1, sitting EOB 5 minutes with intermitant mid-mod A for LOB. Comment: Pt has bilateral mitts that make it hard to hold onto walker Bed mobility Supine to Sit: Stand by assistance Sit to Supine: Maximum assistance;2 Person assistance Scooting: Stand by assistance Comment: Pt sat up at EOB x 5 minutes with intermittent UE support demo multiple LOB to the right with min-mod A x 1 to correct. Transfers Sit to stand: 2 Person assistance;Contact guard assistance;Minimal assistance Stand to sit: Minimal assistance;Contact guard assistance Cognition Overall Cognitive Status: Exceptions Arousal/Alertness: Inconsistent responses to stimuli;Delayed responses to stimuli Following Commands: Follows one step commands with repetition Safety Judgement: Decreased awareness of need for safety Insights: Decreased awareness of deficits Initiation: Requires cues for all Sequencing: Requires cues for all OTR re-entered the room to assist doctor of nursing practice to get patient to the BSC. Supine to sit CGA. Sit tostand, Min Ax1 and CGAx1. Stand pivot transfer mod Ax2 secondary to patient not being able to use walker d/t bilateral mitts. DEP for clothing management. Pt was left sitting on commode with doctor of nursing practice in the room. Plan Plan Times per week: 1-2x5 Plan weeks: acute LOS Current Treatment Recommendations: Strengthening, ROM, Safety Education & Training, Patient/Caregiver Education & Training, Self-Care / ADL, Functional Mobility Training, Endurance Training, Home Management Training Plan Comment: Continue with same POC at this time. Goals shelter goals Time Frame for shelter goals : acute LOS shelter goal 1: Patient will complete TB bathing/dressing SBA shelter goal 2: Patient will complete UE HEP with mod I to increase strength in bilateral UE's for ease with daily tasks. shelter goal 3: Patient will complete functional standing with supervision for 10-15 mins, to increase standing tolerance and endurance. combustion analyst goal 4: Patient will complete all aspects of toileting and hygiene with modified independence. combustion analyst goal 5: Patient will complete all functional transfers with SUP and GOOD safety in prep for discharge. Therapy Time Individual Time In 1317 1514 Time Out 1337 1519 Minutes 25 Charges Units Minutes Self-care/Home management 1 8 Therapeutic Activity Therapeutic Exercise Re-Evaluation 1 20 Signature: Brissa Mcallister OTR/L, MOT #[id number] * Antoinette Khan, PT - 08/03/2020 1:52 PM EST Date: 08/03/2020 Physical Therapy Daily Note Patient Name: Pancho Mcpherson : 1960 (60 y.o.) Referring Practitioner: Dr. Rodriges Referral Date : 07/23/20(R hemicolectomy 07-22-2020) Diagnosis: peforated viscus Treatment Diagnosis: generalized weakness Restrictions Restrictions/Precautions Restrictions/Precautions: Fall Risk(MRDD, pandey, IV, mitts UE's) Required Braces or Orthoses?: Yes Required Braces or Orthoses Other: Abdominal Binder Subjective Subjective Subjective: Per nurse, pt is no longer being sedated. Doctor wants pt up and moving as much as possible with therapy. Pt was in bed upon arrival, agreeable to treatment. General Comment Comments: updated POC Pain Screening Patient Currently in Pain: Denies Vital Signs Patient Currently in Pain: Denies Orientation Orientation Orientation Level: Oriented to place;Oriented to person Cognition Cognition Overall Cognitive Status: Exceptions Arousal/Alertness: Inconsistent responses to stimuli;Delayed responses to stimuli Following Commands: Follows one step commands with repetition Safety Judgement: Decreased awareness of need for safety Insights: Decreased awareness of deficits Initiation: Requires cues for all Sequencing: Requires cues for all Objective Bed mobility Supine to Sit: Stand by assistance Sit to Supine: Maximum assistance;2 Person assistance Comment: Pt sat up at EOB x 5 minutes with intermittent UE support demo multiple LOB to the right with min-mod A x 1 to correct. Transfers Sit to Stand: Minimal Assistance;Contact guard assistance;2 Person Assistance Stand to sit: Contact guard assistance Comment: Pt stood for approximately 2 minutes with intermittent UE support (pt had mitts on making it difficult to grasp walker, to promote upright posture and improve standing tolerance and LE strength/endurance min A x 2. Pt able to take 2 side steps with min A x 1 and max verbal and tactile cuesprovided for safety and guidance. Ambulation Ambulation?: No(deferred secondary to difficulty static standing and concern for pt's safety) Balance Posture: Fair Sitting - Static: Fair;Poor;-;+ Sitting - Dynamic: Fair;Poor;+;- Standing - Static: Fair;-;Poor Standing - Dynamic: Fair;Poor;- Re-entered room later, pt performed supine to sit CGA x 2, sit to stand min A x 1 and CGA x 1, stand pivot transfer from bed to BSC mod A x 2 with no AD and sBA x 1 for line management. Pt impulsive at times requiring max A x 1 for cueing and guidance to ensure pt's safety Assessment Assessment: Pt tolerated transferes fair this date but demo decrease in endurance and strength. Pt has difficult time following commands and limited secondary to mitts on UE's--limiting ability to grasp walker PT Education: General Safety;Functional Mobility Training;Gait Training;Transfer Training Activity Tolerance Activity Tolerance: Patient limited by fatigue;Patient limited by endurance;Patient limited by cognitive status Safety Devices Type of devices: All fall risk precautions in place, Patient at risk for falls, Call light within reach, Left in bed, Nurse notified, Bed alarm in place Plan Comment: Cont focusing on strength and endurance for imporved overall mobility Discharge Recommendations: Subacute/Longterm Facility Goals Short Term Goals Senior Living Goals Time Frame for combustion analyst goals : LOS combustion analyst goal 1: patient to perform supine <> sit mod I via log roll technique shelter goal 2: Patient to perform sit <> stand mod I combustion analyst goal 3: patient to ambulate 75' with FWW mod I to ambulate household distances combustion analyst goal 4: patient to stand for approximately 5-8 minutes with use of UE support to increasestanding tolerance and LE strength/endurance shelter goal 5: patient to sit up at EOB x 10 minutes maintaining fair (+) static and dynamic seated balance to prepare for ambulation and promote upright posture Therapy Time Individual Concurrent Group Co-treatment Time In 1317, 1514 Time Out 1337, 1519 Minutes 25 Charges Units Minutes Gait Training Therapeutic Act 2 Therapeutic Ex Vasopneumatic Device Self-care/Home Manage Neuro Re-ed Mod complexity eval Antoinette Khan, PT , DPT License #[id number] * Brissa Jennings, RD, LD - 08/03/2020 1:12 PM EST Comprehensive Nutrition Assessment Type and Reason for Visit: Reassess Nutrition Recommendations/Plan: Exploring disposition options. Rec'd to adv towards TPN goal rate Nutrition Assessment: TPN initiated 07/30, Concerns to self harm pt Hx of pulling out cath- needs placed for 2 weeks. Sedated & under soft restraints. S/P ileocecectomy-wound and severe bleeding from cath. Vit D Def-supplementing, Concerns for fat, fat stephanie vit, chol and B12 absorption. Estimated Daily Nutrient Needs: Energy (kcal): 5682-0014; Weight Used for Energy Requirements: Adjusted Protein (g): 105-120 (1.2-1.4/kg admit wt); Weight Used for Protein Requirements: Adjusted Fluid (ml/day): 0924-3712; Method Used for Fluid Requirements: 1 ml/kcal Nutrition Related Findings: TPN day 4, at initial rate. Weight loss- I/Os -17.6 L @ baseline wt. Wounds: Open Wounds Current Nutrition Therapies: Current Parenteral Nutrition Orders: Type and Formula: 3-in-1 Standard Lipids: None Duration: Continuous Rate/Volume: 75 mL/hr; 1800 mL total Vol Current PN Order Provides: 1530 kcal/d, 60g Pro/d, 176g CHO/d 70g lipids/d which meets 75% pt needs. Goal PN Orders Provides: goal rate 100 mL/hr; 2400 mL total vol. provides 2040 kcal/d, 79g pro/d, 235g CHO/d, 94g Lipid/d which meets 100% pt needs. Anthropometric Measures: Height: 5' 8 (172.7 cm) Current Body Weight: 188 lb (85.3 kg) Admission Body Weight: 191 lb (86.6 kg) Usual Body Weight: 189 lb (85.7 kg) [place] Body Weight: 154 lbs; % BMI: 28.6 Adjusted Body Weight: ; No Adjustment BMI Categories: Overweight (BMI 25.0-29.9) Nutrition Diagnosis: Predicted inadequate energy intake related to altered GI function as evidenced by NPO or clear liquid status due to medical condition Nutrition Interventions: Food and/or Nutrient Delivery: Continue Current Parenteral Nutrition Nutrition Education/Counseling: Education not appropriate Coordination of Nutrition Care: Continue to monitor while inpatient, Interdisciplinary Rounds Goals: Tolerate TPN, maintian baseline weight. Nutrition Monitoring and Evaluation: Behavioral-Environmental Outcomes: Knowledge or Skill Food/Nutrient Intake Outcomes: Parenteral Nutrition Intake/Tolerance Physical Signs/Symptoms Outcomes: Biochemical Data, Nausea or Vomiting, GI Status, Weight, Nutrition Focused Physical Findings Discharge Planning: Too soon to determine Contact: x [phone] * Brissa Mcallister OT - 08/03/2020 12:06 PM EST [facility] OCCUPATIONAL THERAPY MISSED TREATMENT NOTE [facility] ICU Date: 08/03/2020 Patient Name: Pancho Mcpherson : 1960 (60 y.o.) Gender: male Referring Practitioner: Dr. Rodriges Diagnosis: peforated viscus REASON FOR MISSED TREATMENT: Pt not seen this AM secondary to patient sleeping then eating upon second attempt. OTR spoke with nurse, plan to see patient this afternoon and see how he does sitting EOB and standing at EOB. Nurse is all for therapy when patient is appropriate. Signature: Brissa Mcallister OTR/L, MOT #[id number] * Justen Burch, DO - 08/02/2020 12:35 PM EST Progress Note Date:08/02/2020 Room:[address] [place] [address] Patient Name:Pancho Mcpherson Date of :1960 Age:60 y.o. Subjective Subjective Review of Systems Unable to perform ROS: Psychiatric disorder Objective Vitals Last 24 Hours: TEMPERATURE: Temp Av.1 F (36.7 C) Min: 97.3 F (36.3 C) Max: 99.4 F (37.4 C) RESPIRATIONS RANGE: Resp Av.8 Min: 0 Max: 46 PULSE OXIMETRY RANGE: SpO2 Av.7 % Min: 75 % Max: 100 % PULSE RANGE: Pulse Av.6 Min: 60 Max: 98 BLOOD PRESSURE RANGE: Systolic (24hrs), Av , Min:92 , Max:160 ; Diastolic (24hrs), Av, Min:59, Max:92 I/O (24Hr): Intake/Output Summary (Last 24 hours) at 08/02/2020 1235 Last data filed at 08/02/2020 1150 Gross per 24 hour Intake 2305 ml Output 4050 ml Net -1745 ml Objective: General Appearance: Comfortable and in no acute distress. Vital signs: (most recent): Blood pressure 115/72, pulse 75, temperature 97.9 F (36.6 C), temperature source Axillary, resp. rate 25, height 5' 8 (1.727 m), weight 190 lb 0.6 oz (86.2 kg), SpO2 93 %. Vital signs are normal. Output: Producing urine and producing stool. HEENT: Normal HEENT exam. Lungs: Normal effort. He is not in respiratory distress. No wheezes or rhonchi. Heart: Normal rate. S1 normal and S2 normal. Abdomen: Abdomen is soft. (Surgical dressing intact changed today). Bowel sounds are normal. There is incisional tenderness. There is no mass. Extremities: Normal range of motion. Pulses: Distal pulses are intact. Neurological: Normal strength. Skin: Warm and dry. No rash, ecchymosis, cyanosis or ulceration. Labs/Imaging/Diagnostics Labs: CBC: Recent Labs 07/31/2051908/01/2052008/02/20 0338 WBC 7.4 9.9 10.9 RBC 3.16* 3.32* 3.34* HGB 9.2* 9.5* 9.8* HCT 28.6* 30.3* 30.2* MCV 91 91 90 PLT 230 257 252 CHEMISTRIES: Recent Labs 07/31/2051908/01/2051908/02/20337 NA 137 136 138 K 3.7 3.7 3.8 CL 100 99 104 CO2 34* 31 28 BUN 6* 6* 8* CREATININE 0.69 0.77 0.66 GLUCOSE 112* 111* 115* MG 2.2 2.3 2.3 PT/INR:No results for input(s): PROTIME, INR in the last 72 hours. APTT:No results for input(s): APTT in the last 72 hours. LIVER PROFILE: Recent Labs 07/31/2051908/01/2051908/02/20337 AST 25 24 24 ALT 16 16 17 BILITOT 0.3 0.4 0.3 ALKPHOS 95 103 100 Imaging Last 24 Hours: Xr Shoulder Right (min 2 Views) Result Date: 08/02/2020 HISTORY: Right shoulder pain since a recent fall. XR SHOULDER RIGHT (MIN 2 VIEWS): 08/02/2020 8:21 AM EST COMPARISON: Radiographs right shoulder 07/22/2020. FINDINGS: There are mild degenerative changes again seen of the acromioclavicular joint. No acute fracture or dislocation is seen of the shoulde r. Multiple remote, healed fracture deformities of the lateral aspect of the right rib cage are again seen. Report electronically signed by: Dr. Ball [place] 1. No acute fracture or dislocation of the right shoulder is seen. 2. Multiple remote, healed fracture deformities of the lateral aspect of the right rib cage. Assessment//Plan Hospital Problems Last Modified POA * (Principal) Perforated viscus 07/22/2020 Yes Bowel perforation (HCC) 07/26/2020 Yes Delirium 07/26/2020 Yes Hypokalemia 07/26/2020 Yes Anemia 07/26/2020 Yes Tear of urethra 07/26/2020 Yes Assessment: Condition: In stable condition. Improving. (1. Perforated viscus, POD #10 from surgical intervention by Dr. Rodriges, wound open. Continue management per Dr. Rodriges. D/w Dr. Rodriges today started on clears advance as tolerated per Dr. Rodriges 2. Urethral perforation, traumatic, continue coude catheter and management per Dr. Sandoval. Plan to leave catheter in place x 2 weeks. Soft restraints placed due to patient being unable to understand need for catheter and impulsive removal x 2 causing significant self-harm (urethral perforation, severe bleeding, patient has already removed coude catheter x 1 despite meds and mitts in place). 3. Anemia, postoperative and complicated by bleeding from traumatic urethral perforation. Hgb improved to 9 grams 4. Hypokalemia: improved to 3.7 5. Hypertension improved 6. Wound infection: unclear if present - on zosyn. Added empiric vancomycin overnight given patientdigging in open wound on hospital day #3. 7. Bipolar disorder with psychosis: continue home medications as feasible including clonazepam 1 mgnightly, quetiapine 75 mg QAM and 300 mg QHS, and paroxetine 40 mg QAM. Patient with history of delirium . Continue PRN lorazepam and PRN haloperidol given risk of self-harm patient has been intermittently displaying with poor impulse control. Dr. Rodriges increased phenobarbital dosing. 8. Seizure disorder: seizure precautions. Continue phenobarbital 45 mg QAM and 60 mg noon and QHS. Continue Phenytoin 200 mg QHS. Continue Keppra 2000 mg BID. Check phenytoin and levetiracetam levelsin a.m. tomorrow. 9. Obstructive sleep apnea: continue home CPAP when sleeping. 10. Hypothyroidism: continue home levothyroxine 200 mcg alternating with 250 mcg. 11. Vitamin D Deficiency: continue vitamin D 2000 IU daily. 12. Hyperlipidemia: continue atorvastatin 10 mg nightly. 13. Code status is [id number] 14. Nutrition on TPN via central line ordered by Dr. Rodriges). Plan: Per physical therapy. Consults: occupational therapy and physical therapy. Administer medications as ordered. (Continue TPN, having bowel movements Right shoulder xray reviewed). * Magalis Drummond RN - 08/02/2020 12:00 PM EST Pt awake watching TV / pt yelling out get me out of here, I'm going home blurting out curse wordsand yelling at people that are not there (he states he is yelling at his brother) pt re-oriented, gave a few drinks of ice water, helped pt re-position, covered pt back up, and turned a light on. Pt seems to have calmed down / pt denies any pain or needs at this time * Justen Burch DO - 08/01/2020 1:19 PM EST Progress Note Date:08/01/2020 Room:[facility]/119-02 Patient Name:Pancho Mcpherson Date of :1960 Age:60 y.o. Subjective Subjective Review of Systems Unable to perform ROS: Psychiatric disorder Objective Vitals Last 24 Hours: TEMPERATURE: Temp Av.4 F (36.9 C) Min: 97.4 F (36.3 C) Max: 99.5 F (37.5 C) RESPIRATIONS RANGE: Resp Av.1 Min: 13 Max: 34 PULSE OXIMETRY RANGE: SpO2 Av.1 % Min: 85 % Max: 100 % PULSE RANGE: Pulse Av.3 Min: 78 Max: 107 BLOOD PRESSURE RANGE: Systolic (24hrs), Av , Min:98 , Max:167 ; Diastolic (24hrs), Av, Min:63, Max:137 I/O (24Hr): Intake/Output Summary (Last 24 hours) at 08/01/2020 1319 Last data filed at 08/01/2020 1100 Gross per 24 hour Intake 6574 ml Output 5000 ml Net 1574 ml Objective: General Appearance: Comfortable. Vital signs: (most recent): Blood pressure 113/88, pulse 78, temperature 99.4 F (37.4 C), temperature source Axillary, resp. rate 17, height 5' 8 (1.727 m), weight 190 lb 0.6 oz (86.2 kg), SpO2 90 %. Vital signs are normal. Output: Producing urine and producing stool. HEENT: Normal HEENT exam. Lungs: Normal effort. Heart: Normal rate. S1 normal and S2 normal. Abdomen: There are no signs of ascites. Bowel sounds are normal. There is no abdominal tenderness. Extremities: Normal range of motion. There is no dependent edema or local swelling. Pulses: Distal pulses are intact. Neurological: Patient is alert. Pupils: Pupils are equal, round, and reactive to light. Skin: Warm, dry and pale. No ecchymosis, cyanosis or ulceration. Labs/Imaging/Diagnostics Labs: CBC: Recent Labs 07/30/20 0607/31/20 0520 08/01/20 0521 WBC 7.8 7.4 9.9 RBC 3.04* 3.16* 3.32* HGB 8.9* 9.2* 9.5* HCT 27.6* 28.6* 30.3* MCV 91 91 91 PLT 215 230 257 CHEMISTRIES: Recent Labs 07/30/20 0607/31/20 0520 08/01/20 0520 NA 136 137 136 K 3.7 3.7 3.7 CL 101 100 99 CO2 30 34* 31 BUN 7* 6* 6* CREATININE 0.81 0.69 0.77 GLUCOSE 107* 112* 111* MG 2.1 2.2 2.3 PT/INR:No results for input(s): PROTIME, INR in the last 72 hours. APTT:No results for input(s): APTT in the last 72 hours. LIVER PROFILE: Recent Labs 07/30/20 0607/31/20 0520 08/01/20 0520 AST 19 25 24 ALT 14 16 16 BILITOT 0.3 0.3 0.4 ALKPHOS 97 95 103 Imaging Last 24 Hours: No results found. Assessment//Plan Hospital Problems Last Modified POA * (Principal) Perforated viscus 07/22/2020 Yes Bowel perforation (HCC) 07/26/2020 Yes Delirium 07/26/2020 Yes Hypokalemia 07/26/2020 Yes Anemia 07/26/2020 Yes Tear of urethra 07/26/2020 Yes Assessment: (1. Perforated viscus, POD #9 from surgical intervention by Dr. Rodriges, wound open. Continue management per Dr. Rodriges. D/w Dr. Rodriges today started on clears advance as tolerated per Dr. Rodriges 2. Urethral perforation, traumatic, continue coude catheter and management per Dr. Sandoval. Plan to leave catheter in place x 2 weeks. Soft restraints placed due to patient being unable to understand need for catheter and impulsive removal x 2 causing significant self-harm (urethral perforation, severe bleeding, patient has already removed coude catheter x 1 despite meds and mitts in place). 3. Anemia, postoperative and complicated by bleeding from traumatic urethral perforation. Hgb improved to 9 grams 4. Hypokalemia: improved to 3.7 5. Hypertension improved 6. Wound infection: unclear if present - on zosyn. Added empiric vancomycin overnight given patientdigging in open wound on hospital day #3. 7. Bipolar disorder with psychosis: continue home medications as feasible including clonazepam 1 mgnightly, quetiapine 75 mg QAM and 300 mg QHS, and paroxetine 40 mg QAM. Patient with history of delirium . Continue PRN lorazepam and PRN haloperidol given risk of self-harm patient has been intermittently displaying with poor impulse control. Dr. Rodriges increased phenobarbital dosing. 8. Seizure disorder: seizure precautions. Continue phenobarbital 45 mg QAM and 60 mg noon and QHS. Continue Phenytoin 200 mg QHS. Continue Keppra 2000 mg BID. Check phenytoin and levetiracetam levelsin a.m. tomorrow. 9. Obstructive sleep apnea: continue home CPAP when sleeping. 10. Hypothyroidism: continue home levothyroxine 200 mcg alternating with 250 mcg. 11. Vitamin D Deficiency: continue vitamin D 2000 IU daily. 12. Hyperlipidemia: continue atorvastatin 10 mg nightly. 13. Code status is [id number] 14. Nutrition on TPN via central line ordered by Dr. Rodriges). Plan: Per physical therapy. Consults: occupational therapy and physical therapy. Regular diet. Administermedications as ordered. * Laya Rodriges MD - 08/01/2020 12:40 PM EST Pancho is doing fairly well. Vital signs are stable T-max is 99.5. Blood work looks good. Urine output is excellent and urine is clear. The abdomen is soft. The wound continues to have an odor in the fascia is giving the appearance of being somewhat necrotic. Continue present therapy. * Magalis Drummond RN - 08/01/2020 8:00 AM EST Changed pt midline abd incision dressing / old dressing removed, was very saturated with yellow andpink tinged drainage and had a slight foul odor present / stay sutures present / wound sprayed out with NS / Collagenase ointment applied to outer inner edges of wound and then packed with 3 4X4s soaked in 1/2 strength Dakins solution / area covered with an ABD and secured with foam tape / pt ivelisse well * Justen Burch DO - 07/31/2020 4:46 PM EST Progress Note Date:07/31/2020 Room:119/119-02 Patient Name:Pancho Mcpherson Date of :1960 Age:60 y.o. Subjective Subjective: Symptoms: No shortness of breath, cough, chest pain or diarrhea. Diet: No nausea. Review of Systems Constitutional: Negative for chills, diaphoresis, fatigue and fever. HENT: Negative for ear discharge, ear pain, hearing loss, rhinorrhea, sneezing and trouble swallowing. Eyes: Negative for pain and redness. Respiratory: Negative for cough, shortness of breath and wheezing. Cardiovascular: Negative for chest pain and leg swelling. Gastrointestinal: Negative for constipation, diarrhea and nausea. Genitourinary: Negative for hematuria. Musculoskeletal: Negative for joint swelling. Skin: Negative for pallor, rash and wound. Neurological: Negative for seizures, facial asymmetry, speech difficulty, light- headedness and headaches. Psychiatric/Behavioral: Positive for agitation. Negative for confusion, hallucinations and sleep disturbance. The patient is not nervous/anxious. Objective Vitals Last 24 Hours: TEMPERATURE: Temp Av.8 F (37.1 C) Min: 98.5 F (36.9 C) Max: 99.3 F (37.4 C) RESPIRATIONS RANGE: Resp Av Min: 13 Max: 28 PULSE OXIMETRY RANGE: SpO2 Av.1 % Min: 83 % Max: 100 % PULSE RANGE: Pulse Av.3 Min: 76 Max: 103 BLOOD PRESSURE RANGE: Systolic (24hrs), Av , Min:109 , Max:131 ; Diastolic (24hrs), Av, Min:64, Max:103 I/O (24Hr): Intake/Output Summary (Last 24 hours) at 07/31/2020 1646 Last data filed at 07/31/2020 1426 Gross per 24 hour Intake 1100 ml Output 4800 ml Net -3700 ml Objective: General Appearance: Comfortable and in no acute distress. Vital signs: (most recent): Blood pressure 130/80, pulse 92, temperature 98.5 F (36.9 C), temperature source Oral, resp. rate 15, height 5' 8 (1.727 m), weight 193 lb 12.6 oz (87.9 kg), SpO2 99 %. Vital signs are normal. No fever. Output: Producing urine and no stool output. HEENT: Normal HEENT exam. Lungs: Normal effort and normal respiratory rate. No rales, decreased breath sounds, wheezes or rhonchi. Heart: Normal rate. S1 normal and S2 normal. Abdomen: Abdomen is soft. (Midline dressing intact, no distention, no wound drainage). There is no abdominal tenderness. Extremities: Normal range of motion. Pulses: Distal pulses are intact. Neurological: Normal strength. Pupils: Pupils are equal, round, and reactive to light. Skin: Warm, dry and pale. No cyanosis or ulceration. Labs/Imaging/Diagnostics Labs: CBC: Recent Labs 07/29/20 0110 07/30/20 0622 07/31/20 0520 WBC 7.6 7.8 7.4 RBC 2.34* 3.04* 3.16* HGB 6.8* 8.9* 9.2* HCT 21.1* 27.6* 28.6* MCV 90 91 91 PLT 199 215 230 CHEMISTRIES: Recent Labs 07/29/2010807/29/2010807/30/2022 07/31/20 0520 NA 139 -- 136 137 K 3.8 -- 3.7 3.7 CL 102 -- 101 100 CO2 32 -- 30 34* BUN 6* -- 7* 6* CREATININE 0.76 -- 0.81 0.69 GLUCOSE 100 -- 107* 112* MG -- 2.1 2.1 2.2 PT/INR:No results for input(s): PROTIME, INR in the last 72 hours. APTT:No results for input(s): APTT in the last 72 hours. LIVER PROFILE: Recent Labs 07/29/2010807/30/2062107/31/20 0520 AST 30 19 25 ALT 12 14 16 BILITOT 0.4 0.3 0.3 ALKPHOS 100 97 95 Imaging Last 24 Hours: Xr Chest Portable Result Date: 07/30/2020 EXAM: Portable chest REASON FOR EXAM: Central line placement. TECHNIQUE: A portable frontal view ofthe chest was obtained. COMPARISON: 11/21/2018. FINDINGS: There is a right subclavian central line. The tip of the catheter is either at the cavoatrial junction or just into the right atrium. There isno pneumothorax or mediastinal shift. The lungs are grossly clear. The heart is enlarged. Report electronically signed by: Dr. Antwan Mosqueda Right subclavian central line positioning as above without evidence of pneumothorax or other complication. Assessment//Plan Hospital Problems Last Modified POA * (Principal) Perforated viscus 07/22/2020 Yes Bowel perforation (HCC) 07/26/2020 Yes Delirium 07/26/2020 Yes Hypokalemia 07/26/2020 Yes Anemia 07/26/2020 Yes Tear of urethra 07/26/2020 Yes Assessment: Condition: In stable condition. Improving. (1. Perforated viscus, POD #[address] Rodriges, wound open. Continue management per Dr. Rodriges. D/w Dr. Rodriges today started on clears advance as tolerated per Dr. Rodriges 2. Urethral perforation, traumatic, continue coude catheter and management per Dr. Sandoval. Plan to leave catheter in place x 2 weeks. Soft restraints placed due to patient being unable to understand need for catheter and impulsive removal x 2 causing significant self-harm (urethral perforation, severe bleeding, patient has already removed coude catheter x 1 despite meds and mitts in place). 3. Anemia, postoperative and complicated by bleeding from traumatic urethral perforation. Hgb improved to 9 grams 4. Hypokalemia: improved to 3.7 5. Hypertension improved 6. Wound infection: unclear if present - on zosyn. Added empiric vancomycin overnight given patientdigging in open wound on hospital day #3. 7. Bipolar disorder with psychosis: continue home medications as feasible including clonazepam 1 mgnightly, quetiapine 75 mg QAM and 300 mg QHS, and paroxetine 40 mg QAM. Patient with history of delirium . Continue PRN lorazepam and PRN haloperidol given risk of self-harm patient has been intermittently displaying with poor impulse control. Dr. Rodriges increased phenobarbital dosing. 8. Seizure disorder: seizure precautions. Continue phenobarbital 45 mg QAM and 60 mg noon and QHS. Continue Phenytoin 200 mg QHS. Continue Keppra 2000 mg BID. Check phenytoin and levetiracetam levelsin a.m. tomorrow. 9. Obstructive sleep apnea: continue home CPAP when sleeping. 10. Hypothyroidism: continue home levothyroxine 200 mcg alternating with 250 mcg. 11. Vitamin D Deficiency: continue vitamin D 2000 IU daily. 12. Hyperlipidemia: continue atorvastatin 10 mg nightly. 13. Code status is [id number] 14. Nutrition on TPN via central line ordered by Dr. Rodriges). Plan: Encourage ambulation. Administer medications as ordered. * Juliet Peter OTA - 07/31/2020 3:20 PM EST [facility] OCCUPATIONAL THERAPY MISSED TREATMENT NOTE [facility] ICU Date: 07/31/2020 Patient Name: Pancho Mcpherson : 1960 (60 y.o.) Gender: male Referring Practitioner: Dr. Rodriges Diagnosis: peforated viscus REASON FOR MISSED TREATMENT: Pt on hold secondary to sedation. OTR plans to reassess pt on Monday. Signature: Juliet BORJA/Sameer #[id number] * Matthew Shell, SR VICE PRESIDENT - 07/31/2020 2:01 PM EST PHYSICAL THERAPY MISSED TREATMENT NOTE [facility] ICU Date: 07/31/2020 Patient Name: Pancho Mcpherson : 1960 (60 y.o.) Gender: male Referring Practitioner: Dr. Rodriges Diagnosis: peforated viscus REASON FOR MISSED TREATMENT: Hold treatment per nursing request. Matthew Shell, SR VICE PRESIDENT [id number] * Brissa Jennings, RD, LD - 07/31/2020 12:27 PM EST Comprehensive Nutrition Assessment Type and Reason for Visit: Reassess Nutrition Recommendations/Plan: slowly adv to goal TPN rate (see rec's below) Nutrition Assessment: TPN initiated yesteday evening. Concerns of self harm pt Hx of pulling out cath-needs placed for 2 weeks. Sedated and under soft retraints. S/P ileocecectomy-wound and severe bleeding from cath. Vit D deficient. Concerns for fat, fat stephanie. vit, chol and B12 absorption. Estimated Daily Nutrient Needs: Energy (kcal): 3711-2240; Weight Used for Energy Requirements: Adjusted Protein (g): 105-120 (1.2-1.4/kg admit wt); Weight Used for Protein Requirements: Adjusted Fluid (ml/day): 7422-6940; Method Used for Fluid Requirements: 1 ml/kcal Nutrition Related Findings: Increased protein needs, TPN intitated yesterday. Sedated and under retraints for safety. Weight loss- back to baseline weight I/Os +16L Wounds: Open Wounds Current Nutrition Therapies: Current Parenteral Nutrition Orders: Type and Formula: 3-in-1 Standard Lipids: None Duration: Continuous Rate/Volume: 75 mL/hr; 1800 mL total Vol Current PN Order Provides: 1530 kcal/d, 60g Pro/d, 176g CHO/d 70g lipids/d which meets 75% pt needs. Goal PN Orders Provides: goal rate 100 mL/hr; 2400 mL total vol. provides 2040 kcal/d, 79g pro/d, 235g CHO/d, 94g Lipid/d which meets 100% pt needs. Anthropometric Measures: Height: 5' 8 (172.7 cm) Current Body Weight: 193 lb (87.5 kg) Admission Body Weight: 191 lb (86.6 kg) Usual Body Weight: [place] Body Weight: 154 lbs; % [place] Body Weight BMI: 29.4 Adjusted Body Weight: ; No Adjustment Adjusted BMI: BMI Categories: Overweight (BMI 25.0-29.9) Nutrition Diagnosis: Predicted inadequate energy intake related to altered GI function as evidenced by NPO or clear liquid status due to medical condition Nutrition Interventions: Food and/or Nutrient Delivery: Continue Current Parenteral Nutrition Nutrition Education/Counseling: Education not appropriate Coordination of Nutrition Care: Continue to monitor while inpatient, Interdisciplinary Rounds Goals: Tolerate TPN, maintian baseline weight. Nutrition Monitoring and Evaluation: Behavioral-Environmental Outcomes: Knowledge or Skill Food/Nutrient Intake Outcomes: Parenteral Nutrition Intake/Tolerance Physical Signs/Symptoms Outcomes: Biochemical Data, Nausea or Vomiting, GI Status, Weight, Nutrition Focused Physical Findings Discharge Planning: Too soon to determine Contact: x [phone] * Antoinette Khan, PT - 07/31/2020 10:02 AM EST Facility/Department: [facility] ICU Physical Therapy Re-Evaluation NAME: Pancho Mcpherson : 1960 Date of Service: 07/31/2020 Discharge Recommendations: Subacute/Longterm Facility Assessment Body structures, Functions, Activity limitations: Decreased functional mobility ;Decreased strength;Decreased endurance;Decreased posture;Decreased safe awareness;Decreased balance;Decreased cognition;Increased pain;Decreased coordination Assessment: Pt grimaced and moaned during hip flexion of RLE---limited ROM and pt no longer demo hewas in pain. All other PROM tolerated well. Educated pt on updated POC and explained reasoning behind PT during this time. Treatment Diagnosis: generalized weakness Prognosis: Fair PT Education: Goals;PT Role;Plan of Care REQUIRES PT FOLLOW UP: Yes Activity Tolerance Activity Tolerance: Other Activity Tolerance: Pt sedated at this time Patient Diagnosis(es): The primary encounter diagnosis was Bowel perforation (HCC). Diagnoses of Acute peritonitis (HCC) and Foreign body ingestion, initial encounter were also pertinent to this visit. has a past medical history of Bipolar disorder with psychotic features (HCC), Dementia (HCC), Dyslipidemia, Head injury, High cholesterol, High cholesterol, Hyperammonemia (HCC), Hypertension, Hypothyroidism, Mental retardation, Occupational circumstances, Onychomycosis, Psychosis (HCC), Schizophrenia (HCC), Seizures (HCC), Sleep apnea, Sleep apnea, and Tear of urethra. has a past surgical history that includes Leg Surgery; Toe amputation (January 2013); eye muscle surgery (Right); Orbital fracture repair (Left); and hemicolectomy (N/A, 07/22/2020). Restrictions Restrictions/Precautions Restrictions/Precautions: Fall Risk(MRDD, sedated; pandey, IV, mitkristina UE's) Required Braces or Orthoses?: Yes Required Braces or Orthoses Other: Abdominal Binder Vision/Hearing Subjective Subjective Subjective: upon arrival, pt supine in bed. Pt heavily sedated and in/out of consciousness. Pain Screening Patient Currently in Pain: Other (comment) Vital Signs Patient Currently in Pain: Other (comment) Orientation Orientation Overall Orientation Status: Impaired Orientation Level: Unable to assess Social/Functional History Social/Functional History Lives With: Alone Type of Home: House Home Layout: One level(intermediate) Home Equipment: Wheelchair-manual ADL Assistance: Independent Homemaking Assistance: Needs assistance Ambulation Assistance: Independent(mod I for mabulation with FWW and w/c for long distances) Transfer Assistance: Independent Active Shop And Alteration Tailor: No Additional Comments: Pt is a poor historian Cognition Overall Cognitive Status: Exceptions(MRDD; pt sedated) Arousal/Alertness: Inconsistent responses to stimuli Following Commands: Does not follow commands Objective Bed mobility Bridging: Unable to assess Rolling to Left: Supervision Rolling to Right: Unable to assess Supine to Sit: Unable to assess Sit to Supine: Unable to assess Transfers Sit to Stand: Unable to assess(pt sedated,PROM/AROM exercises and bed mobility only) Ambulation Ambulation?: No(pt sedated,PROM/AROM exercises and bed mobility only) Exercises Comments: Performed PROM to B LE's to prevent skin breakdown and to maintain ROM/mobility x 15 repseach: hip abduction, heel slides, hip flexion, ankle DF, and ankle PF. PROM RLE (degrees) RLE PROM: WFL PROM LLE (degrees) LLE PROM: WFL Strength RLE Comment: least 3/5 based on ROM, pt sedated, unable to test Strength LLE Comment: least 3/5 based on ROM, pt sedated, unable to test Plan Plan Times per week: 3x/week Times per day: Daily Plan weeks: LOS Current Treatment Recommendations: Strengthening, Functional Mobility Training, Balance Training, Endurance Training, Gait Training, Transfer Training, Neuromuscular Re-education, Safety Education & Training, Pain Management, Patient/Caregiver Education & Training, Home Exercise Program, Positioning, ROM, Manual Therapy - Joint Manipulation, Manual Therapy - Soft Tissue Mobilization Plan Comment: Cont focusing on maintaining ROM and preventing skin breakdown , establish positioning schedule Safety Devices Type of devices: All fall risk precautions in place, Patient at risk for falls, Call light within reach, Left in bed, Nurse notified OutComes Score AM-PAC Score Goals combustion analyst goals Time Frame for shelter goals : LOS shelter goal 1: patient to perform supine <> sit mod I via log roll technique combustion analyst goal 2: Patient to perform sit <> stand mod I combustion analyst goal 3: patient to ambulate 75' with FWW mod I to ambulate household distances shelter goal 4: patient to stand for approximately 5-8 minutes with use of UE support to increasestanding tolerance and LE strength/endurance combustion analyst goal 5: patient to maintain ROM in B LE's to prevent skin breakdown and prepare for mobility once medically able Therapy Time Individual Concurrent Group Co-treatment Time In 0837 Time Out 0849 Minutes 12 Charges Units Minutes Gait Training Therapeutic Act Therapeutic Ex Vasopneumatic Device Self-care/Home Manage Neuro Re-ed Re-eval 1 Antoinette Khan, PT , DPT License #[id number] Brissa Salazar OT - 07/30/2020 1:24 PM EST [facility] OCCUPATIONAL THERAPY MISSED TREATMENT NOTE [facility] ICU Date: 07/30/2020 Patient Name: Pancho Mcpherson : 1960 (60 y.o.) Gender: male Referring Practitioner: Dr. Rodriges Diagnosis: peforated viscus REASON FOR MISSED TREATMENT: Hold treatment per nursing request. Pt sedated. Signature: Brissa Mcallister OTR/L, MOT #[id number] * Antoinette Khan, PT - 07/30/2020 1:06 PM EST PHYSICAL THERAPY MISSED TREATMENT NOTE [facility] ICU Date: 07/30/2020 Patient Name: Pancho Mcpherson : 1960 (60 y.o.) Gender: male Referring Practitioner: Dr. Rodriges Diagnosis: peforated viscus REASON FOR MISSED TREATMENT: Hold treatment per nursing request. Antoinette Khan PT, DPT [id number] * Laya Rodriges MD - 07/30/2020 12:28 PM EST Pancho is postop day 9. Again last evening we had a very difficult time sedating the patient after he became agitated. Adequate sedation was eventually achieved with higher doses of phenobarbital. It is very important that the Pandey catheter remain in place for another week. When he becomes agitated he frequently attemptsto pull out his Pandey catheter. I have spoken to the hospitalist. I also obtained guidance from the pharmacist. We have decided to markedly increase his scheduled dose of phenobarbital. He will take 64 mg 3 times daily. We will plan on continuing this sedation regimen for the next week. Hopefully at that time we will be able to remove the Pandey catheter and withdrawal the extra sedation. Patient is not eating well. He has been without adequate nutrition for over a week. I have decided to place a central line and begin parenteral nutrition. Procedure Note Procedure: Right subclavian central venous line placement Indication: Nutritional support Procedure: The area is cleansed with ChloraPrep. 1% lidocaine is used for local anesthesia. Triple-lumen central venous line is placed in the right subclavian vein without difficulty. Each lumen is flushed with saline after aspirating blood. The catheter sutured to the skin using 3-0 silk suture provided. Dressing is applied. Portable chest x-ray will be requested. * Justen Burch, DO - 07/30/2020 11:38 AM EST Progress Note Date:07/30/2020 Room:119/119-02 Patient Name:Pancho Mcpherson Date of :1960 Age:60 y.o. Subjective Subjective: Symptoms: No shortness of breath, cough, chest pain, weakness or diarrhea. Diet: No nausea or vomiting. Review of Systems Constitutional: Negative for fatigue and fever. HENT: Negative for ear discharge, ear pain, facial swelling, nosebleeds and trouble swallowing. Eyes: Negative for pain and redness. Respiratory: Negative for cough, choking and shortness of breath. Cardiovascular: Negative for chest pain and leg swelling. Gastrointestinal: Negative for abdominal pain, diarrhea, nausea, rectal pain and vomiting. Genitourinary: Negative for hematuria. Musculoskeletal: Negative for back pain and joint swelling. Skin: Negative for rash and wound. Neurological: Negative for syncope, speech difficulty, weakness, light- headedness and headaches. Psychiatric/Behavioral: Negative for confusion and hallucinations. The patient is not nervous/anxious. Objective Vitals Last 24 Hours: TEMPERATURE: Temp Av.4 F (37.4 C) Min: 98.3 F (36.8 C) Max: 100.5 F (38.1 C) RESPIRATIONS RANGE: Resp Av Min: 13 Max: 52 PULSE OXIMETRY RANGE: SpO2 Av.7 % Min: 88 % Max: 100 % PULSE RANGE: Pulse Av.8 Min: 64 Max: 101 BLOOD PRESSURE RANGE: Systolic (24hrs), Av , Min:86 , Max:152 ; Diastolic (24hrs), Av, Min:60, Max:122 I/O (24Hr): Intake/Output Summary (Last 24 hours) at 07/30/2020 1138 Last data filed at 07/30/2020 0917 Gross per 24 hour Intake 2290 ml Output 2625 ml Net -335 ml Objective: General Appearance: Comfortable and in no acute distress. Vital signs: (most recent): Blood pressure 111/75, pulse 82, temperature 98.7 F (37.1 C), temperature source Axillary, resp. rate 20, height 5' 8 (1.727 m), weight 194 lb 10.7 oz (88.3 kg), SpO2 96 %. Vital signs are normal. No fever. Output: Producing urine and minimal stool output. HEENT: Normal HEENT exam. Lungs: Normal effort. Heart: Normal rate. S1 normal and S2 normal. Abdomen: Abdomen is soft and non-distended. There are no signs of ascites. Bowel sounds are normal. Extremities: Normal range of motion. (Soft mitt boxing gloves on hands) Pulses: Distal pulses are intact. Neurological: Patient is alert and oriented to person, place and time. Pupils: Pupils are equal, round, and reactive to light. Skin: Warm and dry. No cyanosis or ulceration. Labs/Imaging/Diagnostics Labs: CBC: Recent Labs 07/28/2051907/29/2010907/30/20 06 WBC 8.6 7.6 7.8 RBC 2.62* 2.34* 3.04* HGB 7.7* 6.8* 8.9* HCT 23.9* 21.1* 27.6* MCV 91 90 91 PLT 175 199 215 CHEMISTRIES: Recent Labs 07/28/2051907/29/2010807/29/2010807/30/20 06 NA 140 139 -- 136 K 3.7 3.8 -- 3.7 CL 102 102 -- 101 CO2 35* 32 -- 30 BUN 4* 6* -- 7* CREATININE 0.66 0.76 -- 0.81 GLUCOSE 113* 100 -- 107* MG 2.0 -- 2.1 2.1 PT/INR:No results for input(s): PROTIME, INR in the last 72 hours. APTT:No results for input(s): APTT in the last 72 hours. LIVER PROFILE: Recent Labs 07/28/2051907/29/2010807/30/20 0622 AST 15* 30 19 ALT 11 12 14 BILITOT 0.3 0.4 0.3 ALKPHOS 80 100 97 Imaging Last 24 Hours: No results found. Assessment//Plan Hospital Problems Last Modified POA * (Principal) Perforated viscus 07/22/2020 Yes Bowel perforation (HCC) 07/26/2020 Yes Delirium 07/26/2020 Yes Hypokalemia 07/26/2020 Yes Anemia 07/26/2020 Yes Tear of urethra 07/26/2020 Yes Assessment: Condition: In stable condition. Improving. ( 1. Perforated viscus, POD #8 from surgical intervention by Dr. Rodriges, wound open. Continue management per Dr. Rodriges. D/w Dr. Rodriges today started on clears advance as tolerated per Dr. Rodriges 2. Urethral perforation, traumatic, continue coude catheter and management per Dr. Sandoval. Plan to leave catheter in place x 2 weeks. Soft restraints placed due to patient being unable to understand need for catheter and impulsive removal x 2 causing significant self-harm (urethral perforation, severe bleeding, patient has already removed coude catheter x 1 despite meds and mitts in place). 3. Anemia, postoperative and complicated by bleeding from traumatic urethral perforation. Hgb improved to 8.9 grams 4. Hypokalemia: improved to 3.7 5. Hypertension improved 6. Wound infection: unclear if present - on zosyn. Added empiric vancomycin overnight given patientdigging in open wound on hospital day #3. 7. Bipolar disorder with psychosis: continue home medications as feasible including clonazepam 1 mgnightly, quetiapine 75 mg QAM and 300 mg QHS, and paroxetine 40 mg QAM. Patient with history of delirium . Continue PRN lorazepam and PRN haloperidol given risk of self-harm patient has been intermittently displaying with poor impulse control. 8. Seizure disorder: seizure precautions. Continue phenobarbital 45 mg QAM and 60 mg noon and QHS. Continue Phenytoin 200 mg QHS. Continue Keppra 2000 mg BID. Check phenytoin and levetiracetam levelsin a.m. tomorrow. 9. Obstructive sleep apnea: continue home CPAP when sleeping. 10. Hypothyroidism: continue home levothyroxine 200 mcg alternating with 250 mcg. 11. Vitamin D Deficiency: continue vitamin D 2000 IU daily. 12. Hyperlipidemia: continue atorvastatin 10 mg nightly. 13. Code status is [id number] 14. I would advise evaluation for LTAC). Plan: Encourage ambulation. Consults: general surgery, physical therapy and occupational therapy. Regulardiet. Administer medications as ordered. * Brissa Mcallister OT - 07/30/2020 11:20 AM EST [facility] OCCUPATIONAL THERAPY MISSED TREATMENT NOTE [facility] ICU Date: 07/30/2020 Patient Name: Pancho Mcpherson : 1960 (60 y.o.) Gender: male Referring Practitioner: Dr. Rodriges Diagnosis: peforated viscus REASON FOR MISSED TREATMENT: Hold treatment per nursing request. Plan to check back with nursing later today. Signature: Brissa Mcallister OTR/L, MOT #[id number] * Antoinette Khan, PT - 07/30/2020 10:52 AM EST PHYSICAL THERAPY MISSED TREATMENT NOTE [facility] ICU Date: 07/30/2020 Patient Name: Pancho Mcpherson : 1960 (60 y.o.) Gender: male Referring Practitioner: Dr. Rodriges Diagnosis: peforated viscus REASON FOR MISSED TREATMENT: Hold treatment per nursing request. Antoinette Khan PT, DPT [id number] * Magalis Drummond RN - 07/29/2020 5:[address] Rodriges here to see pt * Laya Rodriges MD - 07/29/2020 2:40 PM EST Postop day 7. Pancho does not have any specific complaints. He has been passing some gas. He has yet to have any significant bowel movement. Vital signs are stable T-max is 100. The abdomen is softly distended. There are bowel sounds present. There is some seropurulent drainage from the base of the abdominal wound. Urine output is excellent. Hemoglobin dropped to 6.8. Patient is stable. I will advance him to a clear liquid diet. I will continue subcu heparin decrease the frequency to twice daily. Patient will remain on intravenous antibiotics. Patient is working with physical and occupational therapies. * Brissa Mcallister OT - 07/29/2020 2:23 PM EST [facility] OCCUPATIONAL THERAPY MISSED TREATMENT NOTE [facility] ICU Date: 07/29/2020 Patient Name: Pancho Mcpherson : 1960 (60 y.o.) Gender: male Referring Practitioner: Dr. Rodriges Diagnosis: peforated viscus REASON FOR MISSED TREATMENT: Patient not appropriate at this time secondary to hemoglobin being at 6. Per Dr. Burch, pt will have blood transfusion today and must keep his mitts on to avoid pulling out catheter for the third time. Plan to check back this afternoon--if hemoglobin increases to at least 10, plan to resume therapywith light activity when able. Signature: Brissa Mcallister OTR/L, MOT #[id number] * Brissa Jennings, RD, LD - 07/29/2020 12:48 PM EST Nutrition Assessment Type and Reason for Visit: Reassess Nutrition Recommendations/Plan: Clears diet, I/Os +14.7L. Surgeon update pending. Nutrition Assessment: NPO/clears day 7, Concerns of sfety-self harm, pt has pulled out cath twice, now under soft restraints. Concerns of pulling out central line for nutrition access, if needed. Note S/P ileocecectomy-wound and severe bleeding from cath. Vit D deficient, H BS. Concerns for Fat, Fat stephanie. vit, chol and B 12 absorption. Estimated Daily Nutrient Needs: Energy (kcal): 6391-6558; Weight Used for Energy Requirements: Adjusted Protein (g): 105-120 (1.2-1.4/kg admit wt); Weight Used for Protein Requirements: Adjusted Fluid (ml/day): 1939-9750; Weight Used for Fluid Requirements: 1 ml/kcal Nutrition Related Findings: NPO/clears day 7, just adv to clears today Current Nutrition Therapies: DIET CLEAR LIQUID; Anthropometric Measures: Height: 5' 8 (172.7 cm) Current Body Wt: 201 lb (91.2 kg) BMI: 30.6 Nutrition Diagnosis: Predicted inadequate energy intake related to altered GI function as evidenced by NPO or clear liquid status due to medical condition Nutrition Interventions: Food and/or Nutrient Delivery: Continue Current Diet, Start Oral Diet Nutrition Education/Counseling: Education not appropriate Coordination of Nutrition Care: Continue to monitor while inpatient, Interdisciplinary Rounds Goals: Tolerate clears and adv diet Nutrition Monitoring and Evaluation: Behavioral-Environmental Outcomes: Knowledge or Skill Food/Nutrient Intake Outcomes: Parenteral Nutrition Intake/Tolerance Physical Signs/Symptoms Outcomes: Biochemical Data, Nausea or Vomiting, GI Status, Weight, Nutrition Focused Physical Findings Discharge Planning: Too soon to determine Contact: x [phone] * Antoinette Khan PT - 07/29/2020 11:37 AM EST PHYSICAL THERAPY MISSED TREATMENT NOTE [facility] ICU Date: 07/29/2020 Patient Name: Pancho Mcpherson : 1960 (60 y.o.) Gender: male Referring Practitioner: Dr. Rodriges Diagnosis: peforated viscus REASON FOR MISSED TREATMENT: Patient not appropriate at this time secondary to hemoglobin being at 6. Per Dr. Burch, pt will have blood transfusion today and must keep his mitts on to avoid pulling out catheter for the third time. Plan to check back this afternoon--if hemoglobin increases to at least 10, plan to resume therapywith light activity. Antoinette Khan PT, DPT [id number] * Magalis Drummond RN - 07/29/2020 11:30 AM EST Midline abd incision changed at this time per order / old dressing removed, wound bed cleansed withDakins 1/2 strength solution, patted dry, and 4 4X4 gauze soaked in Dakins solution packed into wound bed / area covered with ABD and secured with foam tape / pt ivelisse well * Justen Burch DO - 07/29/2020 11:25 AM EST Progress Note Date:07/29/2020 Room:119/119-02 Patient Name:Pancho Mcpherson Date of :1960 Age:60 y.o. Subjective Subjective: Symptoms: Stable. He reports weakness. No shortness of breath, cough, chest pain, diarrhea or anxiety. Diet: Poor intake. No nausea or vomiting. Activity level: Impaired due to weakness. Pain: He reports no pain. Review of Systems Constitutional: Negative for chills, fatigue and fever. HENT: Negative for ear pain, hearing loss, sinus pain, sneezing, sore throat and trouble swallowing. Eyes: Negative for pain and redness. Respiratory: Negative for apnea, cough, chest tightness and shortness of breath. Cardiovascular: Negative for chest pain and leg swelling. Gastrointestinal: Negative for abdominal pain, diarrhea, nausea and vomiting. Genitourinary: Positive for hematuria and penile swelling. Musculoskeletal: Negative for back pain, joint swelling and neck pain. Skin: Negative for rash and wound. Neurological: Positive for seizures and weakness. Negative for facial asymmetry, speech difficulty and light-headedness. Psychiatric/Behavioral: Positive for hallucinations. Negative for agitation, behavioral problems and confusion. Objective Vitals Last 24 Hours: TEMPERATURE: Temp Av.1 F (37.3 C) Min: 98.1 F (36.7 C) Max: 100.5 F (38.1 C) RESPIRATIONS RANGE: Resp Av.3 Min: 14 Max: 31 PULSE OXIMETRY RANGE: SpO2 Av.4 % Min: 87 % Max: 100 % PULSE RANGE: Pulse Av.5 Min: 75 Max: 111 BLOOD PRESSURE RANGE: Systolic (24hrs), Av , Min:81 , Max:152 ; Diastolic (24hrs), Av, Min:61, Max:100 I/O (24Hr): Intake/Output Summary (Last 24 hours) at 07/29/2020 1125 Last data filed at 07/29/2020 1000 Gross per 24 hour Intake 580 ml Output 4875 ml Net -4295 ml Objective: General Appearance: Comfortable. Vital signs: (most recent): Blood pressure (!) 128/96, pulse 86, temperature 98.7 F (37.1 C), temperature source Axillary, resp. rate 18, height 5' 8 (1.727 m), weight 201 lb (91.2 kg), SpO2 100 %. Vital signs are normal. No fever. Output: Producing urine. Lungs: Normal effort. No wheezes or rhonchi. Heart: S1 normal and S2 normal. Abdomen: Abdomen is non-distended. There are no signs of ascites. Hypoactive bowel sounds. There isincisional tenderness. Extremities: Normal range of motion. There is no dependent edema or local swelling. Pulses: Distal pulses are intact. Neurological: Patient is alert. Pupils: Pupils are equal, round, and reactive to light. Skin: Warm and dry. Labs/Imaging/Diagnostics Labs: CBC: Recent Labs 07/27/2060507/28/2051907/29/20 0110 WBC 8.0 8.6 7.6 RBC 2.43* 2.62* 2.34* HGB 7.2* 7.7* 6.8* HCT 22.1* 23.9* 21.1* MCV 91 91 90 PLT 174 175 199 CHEMISTRIES: Recent Labs 07/27/2060507/28/2051907/29/2010807/29/20 010 NA 136 140 139 -- K 3.3* 3.7 3.8 -- CL 98 102 102 -- CO2 37* 35* 32 -- BUN 4* 4* 6* -- CREATININE 0.66 0.66 0.76 -- GLUCOSE 115* 113* 100 -- MG 1.8 2.0 -- 2.1 PT/INR:No results for input(s): PROTIME, INR in the last 72 hours. APTT:No results for input(s): APTT in the last 72 hours. LIVER PROFILE: Recent Labs 07/27/20 0607/28/2051907/29/20108 AST 17 15* 30 ALT 11 11 12 BILITOT No Result 0.3 0.4 ALKPHOS 85 80 100 Imaging Last 24 Hours: Xr Abdomen (kub) (single Ap View) Result Date: 07/28/2020 EXAM: XR ABDOMEN (KUB) (SINGLE AP VIEW) HISTORY: post op ileus COMPARISON: None. TECHNIQUE: 2 supine images FINDINGS: Provided history is postoperative ileus. Noting the limitations of the supine view there is no definite free air. Multiple dilated small bowel loops are seen, up to 4.4 cm. There barrett small amount of air in large bowel. Findings otherwise of note for a surgical clip in the right mid abdomen, 2 surgical clips left midabdomen some dense material in the thick-walled bladder, and the presence of multiple rib fractures in different stages of healing, with detail of rib fractures and underlying bone not clear., this will have been better evaluated on CT examinations performed Report electronically signed by: Dr. Ysabel Cee Multiple dilated small bowel loops up to 4.4 cm in caliber. Cannot exclude obstruction on these images. Close follow-up and repeat x-ray and/or surgical evaluation recommended. Consider follow-up x-ray in 2-[address] is not to be done. Assessment//Plan Hospital Problems Last Modified POA * (Principal) Perforated viscus 07/22/2020 Yes Bowel perforation (HCC) 07/26/2020 Yes Delirium 07/26/2020 Yes Hypokalemia 07/26/2020 Yes Anemia 07/26/2020 Yes Tear of urethra 07/26/2020 Yes Assessment: Condition: In stable condition. Improving. (1. Hyperglycemia, noted on labs incidentally and complicated by being on D5-containing fluids while NPO. Hemoglobin A1c 5.5%, hence hyperglycemia is acute in the current setting. Discontinued accuchecks and SSI as this has resolved 2. Perforated viscus, POD #7 from surgical intervention by Dr. Rodriges, wound open. Continue management per Dr. Rodriges. D/w Dr. Rodriges today started on clears advance as tolerated per Dr. Rodriges 3. Urethral perforation, traumatic, continue coude catheter and management per Dr. Sandoval. Plan to leave catheter in place x 2 weeks. Soft restraints placed due to patient being unable to understand need for catheter and impulsive removal x 2 causing significant self-harm (urethral perforation, severe bleeding, patient has already removed coude catheter x 1 despite meds and mitts in place). 4. Anemia, postoperative and complicated by bleeding from traumatic urethral perforation. Hgb 6.8 grams today will transfuse 1 unit of PRBC 5. Hypokalemia: improved 6. Hypertension: okay to restart lopressor and continue to monitor 7. Wound infection: unclear if present - on zosyn. Added empiric vancomycin overnight given patientdigging in open wound on hospital day #3. 8. Bipolar disorder with psychosis: continue home medications as feasible including clonazepam 1 mgnightly, quetiapine 75 mg QAM and 300 mg QHS, and paroxetine 40 mg QAM. Patient with history of delirium . Continue PRN lorazepam and PRN haloperidol given risk of self-harm patient has been intermittently displaying with poor impulse control. 9. Seizure disorder: seizure precautions. Continue phenobarbital 45 mg QAM and 60 mg noon and QHS. Continue Phenytoin 200 mg QHS. Continue Keppra 2000 mg BID. Check phenytoin and levetiracetam levelsin a.m. tomorrow. 10. Obstructive sleep apnea: continue home CPAP when sleeping. 11. Hypothyroidism: continue home levothyroxine 200 mcg alternating with 250 mcg. 12. Vitamin D Deficiency: continue vitamin D 2000 IU daily. 13. Hyperlipidemia: continue atorvastatin 10 mg nightly. 14. Code status is [id number].). Plan: Per physical therapy. Consults: physical therapy. Clear liquid diet. Administer medications as ordered. * Magalis Drummond RN - 07/28/2020 5:03 PM EST Abd dressing changed / all old dressings removed with gloves, thrown away. Wound has stay sutures in and has minimal drainage noted / wound bed is moist, red/pink with no odor present/ sterile glovesapplied to apply new wet to dry dressing. Sterile 4X4s soaked in sterile water applied to to wound,covered with sterile ABD and secured with foam tape / pt tolerated well / * Quang Esquivel MD - 07/28/2020 4:18 PM EST [facility] MED[facility] - PROGRESS NOTE Patient Name: Pancho Mcpherson Unit/Bed: 119/119-02 Date of : 1960 Current Hospital Day: Hospital Day: 7 Admit Date: 07/22/2020 Primary Care Provider: Deborah De La Vega APRN - [facility] Chief Complaint: perforated viscus secondary to foreign body Subjective: Patient seen and examined at bedside. Pancho Mcpherson is a 60 y.o. male who is seen in follow up. Nursing reports increased somnolence overnight with less need for PRN meds. Patient is awake and responsive with me this morning with limited interaction. No major incidents overnight. Past Medical History, Past Surgical History, Family History, and Social History were reviewed in EHR and updates made as appropriate. Medications: Scheduled Meds: vancomycin 1,500 mg Intravenous Q12H heparin (porcine) 5,000 Units Subcutaneous 3 times per day famotidine (PEPCID) injection 20 mg Intravenous BID PHENobarbital 48.75 mg Oral Daily PHENobarbital 64.8 mg Oral BID memantine 5 mg Oral BID phenytoin 200 mg Oral Nightly levETIRAcetam 2,000 mg Oral BID clonazePAM 1 mg Oral Nightly levothyroxine 200 mcg Oral QAM levothyroxine 50 mcg Oral Every Other Day QUEtiapine 75 mg Oral QAM QUEtiapine 300 mg Oral Nightly PARoxetine 40 mg Oral Daily folic acid 1 mg Oral Daily piperacillin-tazobactam 3.375 g Intravenous Q8H Continuous Infusions: dextrose 5% in lactated ringers 125 mL/hr at 07/27/20 1438 PRN Meds:HYDROmorphone, haloperidol lactate, LORazepam, ondansetron, ketorolac Allergies: No Known Allergies Review of Systems: Review of Systems Unable to perform ROS: Mental status change Objective: Vitals: BP 135/81 Pulse 102 Temp 100.5 F (38.1 C) (Axillary) Resp 19 Ht 5' 8 (1.727 m) Wt 201 lb 7 oz (91.4 kg) SpO2 90% BMI 30.63 kg/m CURRENT TEMPERATURE: Temp: 100.5 F (38.1 C) MAXIMUM TEMPERATURE OVER 24HRS: Temp (24hrs), Av.2 F (37.3 C), Min:97.5 F (36.4 C), Max:100.5 F(38.1 C) Physical Exam Vitals signs and nursing note reviewed. Constitutional: Appearance: Normal appearance. He is normal weight. HENT: Head: Normocephalic and atraumatic. Nose: Nose normal. Eyes: General: No scleral icterus. Extraocular Movements: Extraocular movements intact. Pupils: Pupils are equal, round, and reactive to light. Neck: Musculoskeletal: Normal range of motion and neck supple. Cardiovascular: Rate and Rhythm: Normal rate and regular rhythm. Pulses: Normal pulses. Heart sounds: Normal heart sounds. No murmur. No friction rub. No gallop. Abdominal: General: There is no distension. Palpations: There is no mass. Tenderness: There is abdominal tenderness. Hernia: No hernia is present. Genitourinary: Testes: Normal. Musculoskeletal: Normal range of motion. Skin: General: Skin is warm. Coloration: Skin is not jaundiced. Neurological: General: No focal deficit present. Mental Status: He is alert and oriented to person, place, and time. Psychiatric: Attention and Perception: He is inattentive. Mood and Affect: Mood normal. Speech: Speech is delayed. Behavior: Behavior is uncooperative and agitated. Cognition and Memory: Cognition is impaired. Judgment: Judgment is impulsive and inappropriate. Diet: DIET CLEAR LIQUID; Data: Scheduled Meds: Reviewed Continuous Infusions: dextrose 5% in lactated ringers 125 mL/hr at 07/27/20 1438 Labs CBC: Recent Labs 07/26/20 0613 07/27/20 0607/28/20 0520 WBC 9.0 8.0 8.6 HGB 7.5* 7.2* 7.7* HCT 23.4* 22.1* 23.9* PLT 161 174 175 BMP: Recent Labs 07/26/20 0612 07/26/20 1604 07/27/20 0606 07/28/20 0520 NA 142 -- 136 140 K 3.0* 3.6 3.3* 3.7 CL 103 -- 98 102 CO2 37* -- 37* 35* BUN 2* -- 4* 4* CREATININE 0.70 -- 0.66 0.66 GLUCOSE 120* -- 115* 113* LFT's: Recent Labs 07/26/20 0612 07/27/20 0606 07/28/20 0520 AST 21 17 15* ALT 11 11 11 BILITOT 0.3 No Result 0.3 ALKPHOS 60 85 80 Troponin: No results for input(s): TROPONINI in the last 72 hours. BNP: No results for input(s): BNP in the last 72 hours. INR: No results for input(s): INR in the last 72 hours. Lipids: No results for input(s): CHOL, HDL in the last 72 hours. Invalid input(s): LDLCALCU Urinalysis: Lab Results Component Value Date NITRU NEGATIVE 10/11/2016 WBCUA 0 TO 2 10/11/2016 BACTERIA TRACE 10/11/2016 RBCUA None 10/11/2016 SPECGRAV 1.010 10/11/2016 GLUCOSEU NEGATIVE 10/11/2016 I/O: I/O last 3 completed shifts: In: 250 [P.O.:250] Out: 5075 [Urine:5075] Telemetry: no arrhythmia seen Radiology: XR ABDOMEN (KUB) (SINGLE AP VIEW) Final Result Multiple dilated small bowel loops up to 4.4 cm in caliber. Cannot exclude obstruction on these images. Close follow-up and repeat x-ray and/or surgical evaluation recommended. Consider follow-up x-ray in 2-[address] is not to be done. CT ABDOMEN PELVIS WO CONTRAST Additional Contrast? None Final Result IMPRESSION CT HEAD WO CONTRAST Final Result 1. No acute intracranial abnormality. 2. Chronic small vessel ischemia, minimal chronic sinusitis and remote nasal bone fractures. CT CERVICAL SPINE WO CONTRAST Final Result 1. No acute fracture or subluxation. 2. Multilevel degenerative changes as described above. XR SHOULDER RIGHT (MIN 2 VIEWS) Final Result 1. No acute fracture or dislocation of the right shoulder. 2. Mild right acromioclavicular joint osteoarthritis. 3. Age-indeterminate right rib fracture deformities. CT ABDOMEN PELVIS WO CONTRAST Additional Contrast? None Final Result 1. Dilated small bowel loops in the right lower quadrant with a tract of extraluminal gas in this area, indicative of focal perforation, with a moderate amount of surrounding infiltrative/inflammatory changes. There are 2 linear metallic foreign bodies within one of these dilated loops as well as pneumatosis intestinalis, that is suspicious for a mechanical perforation related to these foreign bodies. The small bowel dilatation could be due to a partial obstruction and/or an ileus. 2. Small amount of free fluid as well as bubbles of free intraperitoneal gas in the upper abdomen. No loculated fluid collections are identified to suggest an abscess. 3. Mild fatty infiltration of the liver. 4. Nonobstructing left renal calculi. No hydronephrosis. Critical results were discussed with Dr. Lynn on 07/22/2020 at 1:52 PM. Assessment/Plan Pancho Mcpherson is a 60 y.o. male, who was admitted with Perforated viscus. Active Hospital Problems Diagnosis Date Noted Bowel perforation (HCC) [K63.1] Delirium [R41.0] Hypokalemia [E87.6] Anemia [D64.9] Tear of urethra [S37.33XA] Perforated viscus [R19.8] 07/22/2020 Plan: 1. Hyperglycemia, noted on labs incidentally and complicated by being on D5- containing fluids whileNPO. Hemoglobin A1c 5.5%, hence hyperglycemia is acute in the current setting. Discontinued accuchecks and SSI as this has resolved 2. Perforated viscus, POD #6 from surgical intervention by Dr. Rodriges, wound open. Continue management per Dr. Rodriges. Will need to consider central line with TPN if patient continues to be unable to eat. Abdominal x-ray reviewed. 3. Urethral perforation, traumatic, continue coude catheter and management per Dr. Sandoval. Plan to leave catheter in place x 2 weeks. Soft restraints placed due to patient being unable to understand need for catheter and impulsive removal x 2 causing significant self-harm (urethral perforation, severe bleeding, patient has already removed coude catheter x 1 despite meds and mitts in place). 4. Anemia, postoperative and complicated by bleeding from traumatic urethral perforation. Stabilized with hemoglobin in 7s. Continue to monitor and transfuse for hemoglobin less than 7. 5. Hypokalemia: will supplement today with another 20 mEq K-rider IVPB for K 3.7. Recheck levels tomorrow morning. Magnesium level at goal. 6. Hypertension: patient with hypotension overnight requiring fluid bolus x 3. Discontinued both metoprolol and amlodipine. Continue MIVF per Dr. Rodriges. Check blood cultures x 2 given odor from abdominal wound and low blood pressures. 7. Wound infection: unclear if present - on zosyn. Added empiric vancomycin overnight given patientdigging in open wound on hospital day #2. 8. Bipolar disorder with psychosis: continue home medications as feasible including clonazepam 1 mgnightly, quetiapine 75 mg QAM and 300 mg QHS, and paroxetine 40 mg QAM. Patient with delirium currently exacerbating symptoms. Continue PRN lorazepam and PRN haloperidol given risk of self-harm patient has been intermittently displaying with poor impulse control. 9. Seizure disorder: seizure precautions. Continue phenobarbital 45 mg QAM and 60 mg noon and QHS. Continue Phenytoin 200 mg QHS. Continue Keppra 2000 mg BID. Check phenytoin and levetiracetam levelsin a.m. tomorrow. 10. Obstructive sleep apnea: continue home CPAP when sleeping. 11. Hypothyroidism: continue home levothyroxine 200 mcg alternating with 250 mcg. 12. Vitamin D Deficiency: continue vitamin D 2000 IU daily. 13. Hyperlipidemia: continue atorvastatin 10 mg nightly. 14. Code status is [id number]. Prophylaxis: 1) Stress Ulcer Protocol Active: add famotidine 20 mg IV BID 2) DVT Protocol Active: lovenox Code Status: DNR-CCA FEN: DIET CLEAR LIQUID; DISPO: pending clinical improvement PT/OT Eval Status: on hold currently General Attestation Evaluation of the patient today involved thorough review of all progress notes, laboratory tests, consults, radiology, and other diagnostic studies as appropriate. Quang Esquivel MD Internal Medicine Hospitalist * Brissa Mcallister, OT - 07/28/2020 1:07 PM EST [facility] OCCUPATIONAL THERAPY MISSED TREATMENT NOTE [facility] ICU Date: 07/28/2020 Patient Name: Pancho Mcpherson : 1960 (60 y.o.) Gender: male Referring Practitioner: Dr. Rodriges Diagnosis: peforated viscus REASON FOR MISSED TREATMENT: Hold treatment per nursing request secondary to medically unstable at this time. Plan to check backtomorrow. Signature: Brissa Mcallister OTR/L, MOT #[id number] * Antoinette Khan PT - 07/28/2020 11:56 AM EST PHYSICAL THERAPY MISSED TREATMENT NOTE [facility] ICU Date: 07/28/2020 Patient Name: Pancho Mcpherson : 1960 (60 y.o.) Gender: male Referring Practitioner: Dr. Rodriges Diagnosis: peforated viscus REASON FOR MISSED TREATMENT: Hold treatment per nursing request. Pt continues to be on hold secondary to medically unstable Antoinette Khan PT, DPT [id number] * Rebeka David RN - 07/28/2020 11:06 AM EST Contact and droplet isolation discontinued. History of MRSA 5 years ago- Contact protocol is 1 yearpost infection. COVID-19 not detected 07/22/2020, no current diagnosis of pneumonia- Droplet isolation discontinued. * Magalis Drummond, RN - 07/28/2020 9:[address] Rodriegs here to see pt / new verbal order for clear liquid diet * Antoinette Khan, PT - 07/27/2020 4:32 PM EST PHYSICAL THERAPY MISSED TREATMENT NOTE [facility] ICU Date: 07/27/2020 Patient Name: Pancho Mcpherson : 1960 (60 y.o.) Gender: male Referring Practitioner: Dr. Rodriges Diagnosis: peforated viscus REASON FOR MISSED TREATMENT: Hold treatment per nursing request. Plan to re-attempt tomorrow. Antoinette Khan PT, DPT [id number] * Brissa Mcallister, OT - 07/27/2020 4:09 PM EST [facility] OCCUPATIONAL THERAPY MISSED TREATMENT NOTE [facility] ICU Date: 07/27/2020 Patient Name: Pancho Mcpherson : 1960 (60 y.o.) Gender: male Referring Practitioner: Dr. Rodriges Diagnosis: peforated viscus REASON FOR MISSED TREATMENT: Hold treatment per nursing request. Plan to re-attempt tomorrow. Signature: Brissa Mcallister OTR/L, MOT #[id number] * Brissa Jennings RD, LD - 07/27/2020 3:28 PM EST Nutrition Assessment Type and Reason for Visit: RD Nutrition Re-Screen/LOS Nutrition Recommendations/Plan: Monitor for change in bowel sounds. Will put in rec's for PN when needed. Concerns for placing PICC line. Nutrition Assessment: NPO since admit, 5 dats. Concerns of safety-self harm, pt has pulled out cathtwice-needs to be placed for 2 weeks. Concerns of pulling out central line for nutrition access. Note wound. Severe bleeding. Vit D deficient. H BS. Estimated Daily Nutrient Needs: Energy (kcal): 5853-6746; Weight Used for Energy Requirements: Adjusted Protein (g): 90-105; Weight Used for Protein Requirements: Adjusted Fluid (ml/day): 8172-2637; Weight Used for Fluid Requirements: 1 ml/kcal Nutrition Related Findings: H BS, wound, NPO x 5 days- no bowel sounds Current Nutrition Therapies: No diet orders on file Anthropometric Measures: Height: 5' 8 (172.7 cm) Current Body Wt: 201 lb (91.2 kg) BMI: 30.6 Nutrition Diagnosis: Predicted inadequate energy intake related to altered GI function as evidenced by NPO or clear liquid status due to medical condition Nutrition Interventions: Food and/or Nutrient Delivery: Start Parenteral Nutrititon Nutrition Education/Counseling: Education not appropriate Coordination of Nutrition Care: Continue to monitor while inpatient, Interdisciplinary Rounds Goals: Initiate PN if bowel sounds do not return under coordination with MD. Nutrition Monitoring and Evaluation: Behavioral-Environmental Outcomes: Knowledge or Skill Food/Nutrient Intake Outcomes: Parenteral Nutrition Intake/Tolerance Physical Signs/Symptoms Outcomes: Biochemical Data, Nausea or Vomiting, GI Status, Weight, Nutrition Focused Physical Findings Discharge Planning: Too soon to determine Contact: x [phone] * Quang Esquivel MD - 07/27/2020 1:14 PM EST [facility] MEDICINE - PROGRESS NOTE Patient Name: Pancho Mcpherson Unit/Bed: 119/119-02 Date of : 1960 Current Hospital Day: Hospital Day: 6 Admit Date: 07/22/2020 Primary Care Provider: MUNA Bingham CNP Chief Complaint: perforated viscus secondary to foreign body Subjective: Patient seen and examined at bedside. Pancho Mcpherson is a 60 y.o. male who is seen in follow up. Patient remains unable to provide any significant history today due to altered mental status and sedation. No major incidents yesterday in terms of self-harm, though patient does become significantly agitated at times when he is not sedated. Past Medical History, Past Surgical History, Family History, and Social History were reviewed in EHR and updates made as appropriate. Medications: Scheduled Meds: famotidine (PEPCID) injection 20 mg Intravenous BID amLODIPine 10 mg Oral QAM metoprolol tartrate 50 mg Oral BID sodium chloride 20 mL Intravenous Once insulin lispro 0-12 Units Subcutaneous TID WC insulin lispro 0-6 Units Subcutaneous Nightly PHENobarbital 48.75 mg Oral Daily PHENobarbital 64.8 mg Oral BID memantine 5 mg Oral BID phenytoin 200 mg Oral Nightly levETIRAcetam 2,000 mg Oral BID clonazePAM 1 mg Oral Nightly levothyroxine 200 mcg Oral QAM levothyroxine 50 mcg Oral Every Other Day QUEtiapine 75 mg Oral QAM QUEtiapine 300 mg Oral Nightly PARoxetine 40 mg Oral Daily folic acid 1 mg Oral Daily piperacillin-tazobactam 3.375 g Intravenous Q8H Continuous Infusions: dextrose dextrose 5% in lactated ringers 125 mL/hr at 07/27/20 0626 PRN Meds:HYDROmorphone, haloperidol lactate, glucose, dextrose, glucagon (rDNA), dextrose, LORazepam, ondansetron, ketorolac Allergies: No Known Allergies Review of Systems: Review of Systems Unable to perform ROS: Mental status change Objective: Vitals: BP (!) 93/59 Pulse 77 Temp 99.1 F (37.3 C) (Oral) Resp 21 Ht 5' 8 (1.727 m) Wt 201 lb 1 oz (91.2 kg) SpO2 97% BMI 30.57 kg/m CURRENT TEMPERATURE: Temp: 99.1 F (37.3 C) MAXIMUM TEMPERATURE OVER 24HRS: Temp (24hrs), Av.9 F (37.2 C), Min:98.4 F (36.9 C), Max:99.4 F (37.4 C) Physical Exam Vitals signs and nursing note reviewed. Constitutional: Appearance: Normal appearance. He is normal weight. HENT: Head: Normocephalic and atraumatic. Nose: Nose normal. Eyes: General: No scleral icterus. Extraocular Movements: Extraocular movements intact. Pupils: Pupils are equal, round, and reactive to light. Neck: Musculoskeletal: Normal range of motion and neck supple. Cardiovascular: Rate and Rhythm: Normal rate and regular rhythm. Pulses: Normal pulses. Heart sounds: Normal heart sounds. No murmur. No friction rub. No gallop. Abdominal: General: There is no distension. Palpations: There is no mass. Tenderness: There is abdominal tenderness. There is guarding. Hernia: No hernia is present. Genitourinary: Testes: Normal. Musculoskeletal: Normal range of motion. Skin: General: Skin is warm. Coloration: Skin is not jaundiced. Neurological: General: No focal deficit present. Mental Status: He is alert and oriented to person, place, and time. Psychiatric: Attention and Perception: He is inattentive. Mood and Affect: Mood normal. Speech: Speech is delayed. Behavior: Behavior is uncooperative and agitated. Cognition and Memory: Cognition is impaired. Judgment: Judgment is impulsive and inappropriate. Diet: No diet orders on file Data: Scheduled Meds: Reviewed Continuous Infusions: dextrose dextrose 5% in lactated ringers 125 mL/hr at 07/27/20 0626 Labs CBC: Recent Labs 07/25/20 0601 07/26/20 0613 07/27/20 0606 WBC 9.1 9.0 8.0 HGB 7.4* 7.5* 7.2* HCT 22.9* 23.4* 22.1* PLT 139* 161 174 BMP: Recent Labs 07/25/20 0601 07/26/20 0612 07/26/20 1604 07/27/20 0606 NA 140 142 -- 136 K 3.3* 3.0* 3.6 3.3* CL 103 103 -- 98 CO2 33* 37* -- 37* BUN 5* 2* -- 4* CREATININE 0.75 0.70 -- 0.66 GLUCOSE 114* 120* -- 115* LFT's: Recent Labs 07/26/20 0612 07/27/20 0606 AST 21 17 ALT 11 11 BILITOT 0.3 No Result ALKPHOS 60 85 Troponin: No results for input(s): TROPONINI in the last 72 hours. BNP: No results for input(s): BNP in the last 72 hours. INR: No results for input(s): INR in the last 72 hours. Lipids: No results for input(s): CHOL, HDL in the last 72 hours. Invalid input(s): LDLCALCU Urinalysis: Lab Results Component Value Date NITRU NEGATIVE 10/11/2016 WBCUA 0 TO 2 10/11/2016 BACTERIA TRACE 10/11/2016 RBCUA None 10/11/2016 SPECGRAV 1.010 10/11/2016 GLUCOSEU NEGATIVE 10/11/2016 I/O: I/O last 3 completed shifts: In: - Out: 2600 [Urine:2600] Telemetry: no arrhythmia seen Radiology: CT ABDOMEN PELVIS WO CONTRAST Additional Contrast? None Final Result IMPRESSION CT HEAD WO CONTRAST Final Result 1. No acute intracranial abnormality. 2. Chronic small vessel ischemia, minimal chronic sinusitis and remote nasal bone fractures. CT CERVICAL SPINE WO CONTRAST Final Result 1. No acute fracture or subluxation. 2. Multilevel degenerative changes as described above. XR SHOULDER RIGHT (MIN 2 VIEWS) Final Result 1. No acute fracture or dislocation of the right shoulder. 2. Mild right acromioclavicular joint osteoarthritis. 3. Age-indeterminate right rib fracture deformities. CT ABDOMEN PELVIS WO CONTRAST Additional Contrast? None Final Result 1. Dilated small bowel loops in the right lower quadrant with a tract of extraluminal gas in this area, indicative of focal perforation, with a moderate amount of surrounding infiltrative/inflammatory changes. There are 2 linear metallic foreign bodies within one of these dilated loops as well as pneumatosis intestinalis, that is suspicious for a mechanical perforation related to these foreign bodies. The small bowel dilatation could be due to a partial obstruction and/or an ileus. 2. Small amount of free fluid as well as bubbles of free intraperitoneal gas in the upper abdomen. No loculated fluid collections are identified to suggest an abscess. 3. Mild fatty infiltration of the liver. 4. Nonobstructing left renal calculi. No hydronephrosis. Critical results were discussed with Dr. Lynn on 07/22/2020 at 1:52 PM. Assessment/Plan Pancho Mcpherson is a 60 y.o. male, who was admitted with Perforated viscus. Active Hospital Problems Diagnosis Date Noted Bowel perforation (HCC) [K63.1] Delirium [R41.0] Hypokalemia [E87.6] Anemia [D64.9] Tear of urethra [S37.33XA] Perforated viscus [R19.8] 07/22/2020 Plan: 1. Hyperglycemia, noted on labs incidentally and complicated by being on D5- containing fluids whileNPO. Continue medium-dose humalog sliding scale insulin. Hemoglobin A1c 5.5%, hence hyperglycemia is acute in the current setting. Discontinue accuchecks and SSI tomorrow as sugars have been all <120 for 48 hours. 2. Perforated viscus, POD #5 from surgical intervention by Dr. Rodriges, wound open. Continue management per Dr. Rodriges. 3. Urethral perforation, traumatic, continue coude catheter and management per Dr. Sandoval. Plan to leave catheter in place x 2 weeks. Soft restraints placed due to patient being unable to understand need for catheter and impulsive removal x 2 causing significant self-harm (urethral perforation, severe bleeding) 4. Anemia, postoperative and complicated by bleeding from traumatic urethral perforation. Stabilized with hemoglobin in 7s. Continue to monitor and transfuse for hemoglobin less than 7. 5. Hypokalemia: will supplement today with another 40 mEq K-rider IVPB. Recheck levels tomorrow morning. Give 1 gram of magnesium sulfate IVPB as well to optimize levels. 6. Hypertension: discontinue amlodipine and decrease metoprolol to 25 mg BID due to relatively low blood pressures. Monitor blood pressure with adjusted regimen. 7. Bipolar disorder with psychosis: continue home medications as feasible including clonazepam 1 mgnightly, quetiapine 75 mg QAM and 300 mg QHS, and paroxetine 40 mg QAM. Patient with delirium currently exacerbating symptoms. Continue PRN lorazepam and PRN haloperidol given risk of self-harm patient is displaying. 8. Seizure disorder: seizure precautions. Continue phenobarbital 45 mg QAM and 60 mg noon and QHS. Continue Phenytoin 200 mg QHS. Continue Keppra 2000 mg BID. Check phenytoin and levetiracetam levelsin a.m. tomorrow. 9. Obstructive sleep apnea: continue home CPAP when sleeping. 10. Hypothyroidism: continue home levothyroxine 200 mcg alternating with 250 mcg. 11. Vitamin D Deficiency: continue vitamin D 2000 IU daily. 12. Hyperlipidemia: continue atorvastatin 10 mg nightly. 13. Advance care planning: nursing verified with family that patient's code status is [id number]. I discussed this with Dr. Rodriges and will change in chart. Prophylaxis: 1) Stress Ulcer Protocol Active: add famotidine 20 mg IV BID 2) DVT Protocol Active: lovenox Code Status: Full Code FEN: No diet orders on file DISPO: pending clinical improvement PT/OT Eval Status: will discuss consultation with Dr. Rodriges. General Attestation Evaluation of the patient today involved thorough review of all progress notes, laboratory tests, consults, radiology, and other diagnostic studies as appropriate. Quang Esquivel MD Internal Medicine Hospitalist * Antoinette Khan, PT - 07/27/2020 11:25 AM EST PHYSICAL THERAPY MISSED TREATMENT NOTE [facility] ICU Date: 07/27/2020 Patient Name: Pancho Mcpherson : 1960 (60 y.o.) Gender: male Referring Practitioner: Dr. Rodriges Diagnosis: peforated viscus REASON FOR MISSED TREATMENT: Hold treatment per nursing request. Antoinette Khan PT, DPT [id number] Laya Merrill MD - 07/27/2020 10:50 AM EST Pancho is sedated. Vital signs are stable T-max is 99.6. Abdomen is slightly distended. There are hypoactive bowel sounds present. Wound is clean. Urine output is adequate. White blood cell count is 8 with a normal differential. Hemoglobin is 7.2 and stable. Stable postop day #4. Dr. Sandoval would like the Pandey catheter to remain in place for at least 2 weeks. This will be challenging as the patient has pulled the catheter out twice in the last 72 hours. For now he is to remainsedated. At some point we may need to consider supplementing his nutrition. Bowel function has not clearly returned. Placing a central line is not without risk of him pulling this out as well. Continue present care for the next 24 hours. * Juliet Peter OTA - 07/27/2020 10:21 AM EST [facility] OCCUPATIONAL THERAPY MISSED TREATMENT NOTE [facility] ICU Date: 07/27/2020 Patient Name: Pancho Mcpherson : 1960 (60 y.o.) Gender: male Referring Practitioner: Dr. Rodriges Diagnosis: peforated viscus REASON FOR MISSED TREATMENT: Hold treatment per nursing request. Plan to reattempt pt later today. Signature: Juliet BORJA/Sameer #[id number] * Quang Esquivel MD - 07/26/2020 8:46 AM EST [facility] MEDICINE - PROGRESS NOTE Patient Name: Pancho Mcpherson Unit/Bed: 119/119-02 Date of : 1960 Current Hospital Day: Hospital Day: 5 Admit Date: 07/22/2020 Primary Care Provider: MUNA Bingham CNP Chief Complaint: perforated viscus secondary to foreign body Subjective: Patient seen and examined at bedside. Pancho Mcpherson is a 60 y.o. male who is seen in follow up. He pulled out his coude catheter yesterday evening and it was replaced. He remains confused. Haloperidol was provided as needed and soft restraints were ordered. He certainly presents as a harm to himself currently. Patient is unable to provide any significant history today. Past Medical History, Past Surgical History, Family History, and Social History were reviewed in EHR and updates made as appropriate. Medications: Scheduled Meds: famotidine (PEPCID) injection 20 mg Intravenous BID amLODIPine 10 mg Oral QAM metoprolol tartrate 50 mg Oral BID sodium chloride 20 mL Intravenous Once insulin lispro 0-12 Units Subcutaneous TID WC insulin lispro 0-6 Units Subcutaneous Nightly PHENobarbital 48.75 mg Oral Daily PHENobarbital 64.8 mg Oral BID memantine 5 mg Oral BID phenytoin 200 mg Oral Nightly levETIRAcetam 2,000 mg Oral BID clonazePAM 1 mg Oral Nightly levothyroxine 200 mcg Oral QAM levothyroxine 50 mcg Oral Every Other Day QUEtiapine 75 mg Oral QAM QUEtiapine 300 mg Oral Nightly PARoxetine 40 mg Oral Daily folic acid 1 mg Oral Daily piperacillin-tazobactam 3.375 g Intravenous Q8H Continuous Infusions: dextrose dextrose 5% in lactated ringers 125 mL/hr at 07/26/20 0052 PRN Meds:haloperidol lactate, glucose, dextrose, glucagon (rDNA), dextrose, LORazepam, ondansetron,HYDROmorphone, ketorolac Allergies: No Known Allergies Review of Systems: Review of Systems Unable to perform ROS: Mental status change Objective: Vitals: BP 115/75 Pulse 72 Temp 97.8 F (36.6 C) (Axillary) Resp 20 Ht 5' 8 (1.727 m) Wt 202 lb 2.6 oz (91.7 kg) SpO2 99% BMI 30.74 kg/m CURRENT TEMPERATURE: Temp: 97.8 F (36.6 C) MAXIMUM TEMPERATURE OVER 24HRS: Temp (24hrs), Av F (37.2 C), Min:97.8 F (36.6 C), Max:100.2 F (37.9 C) Physical Exam Vitals signs and nursing note reviewed. Constitutional: Appearance: Normal appearance. He is normal weight. HENT: Head: Normocephalic and atraumatic. Nose: Nose normal. Eyes: General: No scleral icterus. Extraocular Movements: Extraocular movements intact. Pupils: Pupils are equal, round, and reactive to light. Neck: Musculoskeletal: Normal range of motion and neck supple. Cardiovascular: Rate and Rhythm: Normal rate and regular rhythm. Pulses: Normal pulses. Heart sounds: Normal heart sounds. No murmur. No friction rub. No gallop. Abdominal: General: There is no distension. Palpations: There is no mass. Tenderness: There is abdominal tenderness. There is guarding. Hernia: No hernia is present. Genitourinary: Testes: Normal. Musculoskeletal: Normal range of motion. Skin: General: Skin is warm. Coloration: Skin is not jaundiced. Neurological: General: No focal deficit present. Mental Status: He is alert and oriented to person, place, and time. Psychiatric: Attention and Perception: He is inattentive. Mood and Affect: Mood normal. Speech: Speech is delayed. Behavior: Behavior is uncooperative and agitated. Cognition and Memory: Cognition is impaired. Judgment: Judgment is impulsive and inappropriate. Diet: No diet orders on file Data: Scheduled Meds: Reviewed Continuous Infusions: dextrose dextrose 5% in lactated ringers 125 mL/hr at 07/26/20 0052 Labs CBC: Recent Labs 07/24/20202307/25/20 0601 07/26/20 0613 WBC 11.0 9.1 9.0 HGB 8.2* 7.4* 7.5* HCT 25.5* 22.9* 23.4* PLT 147* 139* 161 BMP: Recent Labs 07/24/20 0951 07/25/20 0601 07/26/20 0612 NA 137 140 142 K 3.9 3.3* 3.0* CL 106 103 103 CO2 27 33* 37* BUN 7* 5* 2* CREATININE 0.58* 0.75 0.70 GLUCOSE 418* 114* 120* LFT's: Recent Labs 07/26/20 0612 AST 21 ALT 11 BILITOT 0.3 ALKPHOS 60 Troponin: No results for input(s): TROPONINI in the last 72 hours. BNP: No results for input(s): BNP in the last 72 hours. INR: No results for input(s): INR in the last 72 hours. Lipids: No results for input(s): CHOL, HDL in the last 72 hours. Invalid input(s): LDLCALCU Urinalysis: Lab Results Component Value Date NITRU NEGATIVE 10/11/2016 WBCUA 0 TO 2 10/11/2016 BACTERIA TRACE 10/11/2016 RBCUA None 10/11/2016 SPECGRAV 1.010 10/11/2016 GLUCOSEU NEGATIVE 10/11/2016 I/O: I/O last 3 completed shifts: In: - Out: 1900 [Urine:1900] Telemetry: no arrhythmia seen Radiology: CT ABDOMEN PELVIS WO CONTRAST Additional Contrast? None Final Result IMPRESSION CT HEAD WO CONTRAST Final Result 1. No acute intracranial abnormality. 2. Chronic small vessel ischemia, minimal chronic sinusitis and remote nasal bone fractures. CT CERVICAL SPINE WO CONTRAST Final Result 1. No acute fracture or subluxation. 2. Multilevel degenerative changes as described above. XR SHOULDER RIGHT (MIN 2 VIEWS) Final Result 1. No acute fracture or dislocation of the right shoulder. 2. Mild right acromioclavicular joint osteoarthritis. 3. Age-indeterminate right rib fracture deformities. CT ABDOMEN PELVIS WO CONTRAST Additional Contrast? None Final Result 1. Dilated small bowel loops in the right lower quadrant with a tract of extraluminal gas in this area, indicative of focal perforation, with a moderate amount of surrounding infiltrative/inflammatory changes. There are 2 linear metallic foreign bodies within one of these dilated loops as well as pneumatosis intestinalis, that is suspicious for a mechanical perforation related to these foreign bodies. The small bowel dilatation could be due to a partial obstruction and/or an ileus. 2. Small amount of free fluid as well as bubbles of free intraperitoneal gas in the upper abdomen. No loculated fluid collections are identified to suggest an abscess. 3. Mild fatty infiltration of the liver. 4. Nonobstructing left renal calculi. No hydronephrosis. Critical results were discussed with Dr. Lynn on 07/22/2020 at 1:52 PM. Assessment/Plan Pancho Mcpherson is a 60 y.o. male, who was admitted with Perforated viscus. Active Hospital Problems Diagnosis Date Noted Perforated viscus [R19.8] 07/22/2020 Plan: 1. Hyperglycemia, noted on labs incidentally and complicated by being on D5- containing fluids whileNPO. Continue medium-dose humalog sliding scale insulin. Hemoglobin A1c 5.5%, crys hyperglycemia is acute in the current setting. Most recent sugars have been OK. Will monitor x 1 more day and discontinue accuchecks and SSI tomorrow if still normal. 2. Perforated viscus, POD #4 from surgical intervention by Dr. Rodriges, wound open. Continue management per Dr. Rodriges. 3. Urethral perforation, traumatic, continue coude catheter and management per Dr. Sandoval. Plan to leave catheter in place x 2 weeks. Soft restraints placed due to patient being unable to understand need for catheter and impulsive removal x 2 causing significant self-harm (urethral perforation, severe bleeding) 4. Anemia, postoperative and complicated by bleeding from traumatic urethral perforation. Stabilized with hemoglobin in 7s. Continue to monitor and transfuse for hemoglobin less than 7. 5. Hypokalemia: will supplement today with another 40 mEq K-rider IVPB. Recheck levels this afternoon. 6. Hypertension: continue metoprolol 50 mg BID and amlodipine 10 mg daily with parameters. 7. Bipolar disorder with psychosis: continue home medications as feasible including clonazepam 1 mgnightly, quetiapine 75 mg QAM and 300 mg QHS, and paroxetine 40 mg QAM. Patient with delirium currently exacerbating symptoms. Continue PRN lorazepam and PRN haloperidol given risk of self-harm patient is displaying. Received one dose of haloperidol last night. 8. Seizure disorder: seizure precautions. Continue phenobarbital 45 mg QAM and 60 mg noon and QHS. Continue Phenytoin 200 mg QHS. Continue Keppra 2000 mg BID. Check phenytoin and levetiracetam levelsin a.m. tomorrow. 9. Obstructive sleep apnea: continue home CPAP when sleeping. 10. Hypothyroidism: continue home levothyroxine 200 mcg alternating with 250 mcg. 11. Vitamin D Deficiency: continue vitamin D 2000 IU daily. 12. Hyperlipidemia: continue atorvastatin 10 mg nightly. 13. Advance care planning: will discuss with family and Dr. Rodriges today. Prophylaxis: 1) Stress Ulcer Protocol Active: add famotidine 20 mg IV BID 2) DVT Protocol Active: lovenox Code Status: Full Code FEN: No diet orders on file DISPO: pending clinical improvement PT/OT Eval Status: will discuss consultation with Dr. Rodriges. General Attestation Evaluation of the patient today involved thorough review of all progress notes, laboratory tests, consults, radiology, and other diagnostic studies as appropriate. Quang Esquivel MD Internal Medicine Hospitalist * Laya Rodriges MD - 07/25/2020 12:22 PM EST POD#4 complaints Of abdominal pain vss afeb abd softly distended U/o improved wbc nl hgb 7.4 stable Stable. Continue present care. * Matthew Shell PTA - 07/25/2020 10:50 AM EST PHYSICAL THERAPY MISSED TREATMENT NOTE [facility] ICU Date: 07/25/2020 Patient Name: Pancho Mcpherson : 1960 (60 y.o.) Gender: male Referring Practitioner: Dr. Rodriges Diagnosis: peforated viscus REASON FOR MISSED TREATMENT: Patient unable to participate d/t medications causing fatigue. Matthew Shell PTA [id number] * Laya Rodriges MD - 07/24/2020 1:44 PM PINA Deleon is postop day 2 partial colectomy for obstruction and perforation of the distal small bowel.Patient had been doing relatively well until last evening he got up out of bed on his own and fell in the bathroom. With Pandey catheter became frankly bloody after the fall. He developed penile swelling at the time. The catheter would not drain urine. Attempts were made at exchanging the catheter but the nursing staff could not get the catheter back in. I therefore had a consult Dr. Rod Sandoval. Pancho also pulled out his Chris-Barrientos drain last evening. Vital signs are stable he is afebrile. The abdomen is softly distended with hypoactive bowel sounds present. The wound is clean and remains open. There is evidence of penile and scrotal swelling and ecchymosis. CT scan of the abdomen and pelvis demonstrated evidence of a large hematoma within the bladder withsome air and fluid along the penile shaft. Hemoglobin this morning was 5.7. He has received 2 units of packed red blood cells. Hemoglobin is currently 7. Urine output is adequate. Postop day #2. 1. Patient required transfusion of 2 units of packed red blood cells. This has to do with perioperative blood loss as well as bleeding from traumatic removal of the Pandey catheter. 2. Patient has been placed in the intensive care unit and will remain there over the weekend. We have placed the patient in mittens so he is less likely to try to pull out his Pandey catheter. Dr. Sandoval has suggested that Pandey catheter be left in place for 2 weeks. 3. Patient will remain on limited oral intake. Will be offered sips of clear liquids. 4. Patient will remain on intravenous antibiotics. Juliet Garnett OTA - 07/24/2020 1:21 PM EST [facility] OCCUPATIONAL THERAPY MISSED TREATMENT NOTE [facility] ICU Date: 07/24/2020 Patient Name: Pancho Mcpherson : 1960 (60 y.o.) Gender: male Referring Practitioner: Dr. Rodriges Diagnosis: peforated viscus REASON FOR MISSED TREATMENT: Pt on hold per nursing request. Plan to reattempt pt on Monday. Signature: Juliet BORJA/Sameer #[id number] * Antoinette Khan, PT - 07/24/2020 1:20 PM EST PHYSICAL THERAPY MISSED TREATMENT NOTE [facility] ICU Date: 07/24/2020 Patient Name: Pancho Mcpherson : 1960 (60 y.o.) Gender: male Referring Practitioner: Dr. Rodriges Diagnosis: peforated viscus REASON FOR MISSED TREATMENT: Hold treatment per nursing request. Antoinette Khan PT, DPT [id number] Tamara Gunter RN - 07/24/2020 2:[address] Koch at bedside, evaluating patient and inserted 16f Coude Pandey Cath. 500ml bloody urine returned. Order received for CT abd/pelvis. Leilani Ryder RN - 07/24/2020 1:[address] Koch notified of Hemoglobin 5.7, new order for CT abdomen and pelvis, and to type and screen and transfuse 2 units PRBC. Leilani Sevilla RN - 07/24/2020 12:[address] Koch present in room, see ICU notes. Leilani Sevilla RN - 07/24/2020 12:30 AM EST Sherly(guardian) notified that Pt continues to have bleeding from pandey and unstable vitals, and thewe were moving pt to the ICU Leilani Sevilla RN - 07/24/2020 12:[address] Esquivel also made aware of pt status and new order for 500ml bolus, then if pt still hypotensive give other half. Leilani Sevilla RN - 07/24/2020 12:10 AM EST Pt appearing very pale, vitals take and SBP in the 80s manually. ICU nurse present, began arrangingrooms to take pt to ICU due to unstable at this time. Pt becoming agitated/irritated at staff, pulling on catheter and dressing periodically, redirection given often. Leilani Sevilla RN - 07/23/2020 11:[address] Koch notified that pt had fallen earlier in shift and penis is becoming progressively more swollen, bruisng, pt remains unable to urinate and that staff had attempted to replace and irrigate pandey and were unable, that pt draining blood from penis, bladder scan done and having some lower abdominal distention. Dr. Koch stated he would like staff to attempted to place 18 or 20Fr, preferring the 20fr and irrigate and then to call back. 2oFr pandey placed , but unable to drain adequately, large red blood clot fills tube with small amount of drainage. Pandey left in place. Pandey then began draining blood. Dr. Koch notified, he gave this nurse a list of suppilies he would need when he came to hospital and states he would be in to see patient. Leilani Sevilla RN - 07/23/2020 11:00 PM EST Pt pulled out own ELIGIO at this time and removed abdominal dressing, no bleeding noted. Suture remainshanging from skin at R abd ELIGIO site, so suture removed per this nurse. Cleansed and dressing applied. Pt unable to urinate, attempted to irrigate and replace pandey catheter with no success. Pt with bloody drainage from urethra and large blood clots when attempting to insert pandey.Pandey left out at this time due to not draining. Swelling continues to shaft of penis and is worsened that earlier in shift, brusing continues to also worsen shaft of penis. Some bladder distention noted. Bladder scan done and only shows 200-250 in bladder. Pt feels like he needs to urinate but is unable. Dr. Zeb beasley otified that pt removed own ELIGIO drain, about pt unable to urinate, passing clots when attempting to reinsert and irrigate pandey, bladder scan volume, penis swelling and bruising. New order for Urologyconsult and ativan prn for agitation. Leilani Sevilla RN - 07/23/2020 9:58 PM EST Sherly(guardian) notified ot pt fall this evening, questions answered. Leilani Sevilla RN - 07/23/2020 9:[address] Rodriges notified that pt noted to have some swelling to penis area, that pandey continues to have bloody drainage but that it does not appear that it is draiining anymore, new order to irrigate pandey as needed and replace if needed. No other order at this time. Leilani Sevilla RN - 07/23/2020 7:53 PM EST category development manager Irena notified of pt fall. Leilani Sevilla RN - 07/23/2020 7:30 PM EST Rad tach passing room and noted pt was lying on floor and asked for staff help. Pt had been in chair with legs up prior, with chair alarm in place. Pt noted to have removed chair alarm and went over foot rest and was found on floor in front of bathroom. Pt had pulled out IV, ELIGIO drain was pulled outslightly and lying on floor, pt had dressing completely off abdomen and wound was exposed. Pandey cat heter was draining but had red urine. Pt c/o abdominal and right shoulder pain, which day shift nurse Gunjan stated was not new. Dr. Esquivel in building and was asked to see pt, Dr. Esquivel ordered CT neck and brain and spoke with Dr. Rodriges. Pt vitals taken which were stable and taken to CT. * Brissa Mcallister OT - 07/23/2020 2:42 PM EST [facility] OCCUPATIONAL THERAPY MISSED TREATMENT NOTE [facility] SURG Date: 07/23/2020 Patient Name: Pancho Mcpherson : 1960 (60 y.o.) Gender: male Referring Practitioner: Dr. Rodriges Diagnosis: peforated viscus REASON FOR MISSED TREATMENT: Patient refused treatment secondary to pain and fatigue. Plan to re-attempt in the morning. Signature: Brissa Mcallister OTR/L, MOT #[id number] * Matthew Shell SR VICE PRESIDENT - 07/23/2020 1:31 PM EST Date: 07/23/2020 Physical Therapy Daily Note Patient Name: Pancho Mcpherson : 1960 (60 y.o.) Referring Practitioner: Dr. Rodriges Referral Date : 07/23/20(R hemicolectomy 07-22-2020) Diagnosis: peforated viscus Treatment Diagnosis: difficulty in walking Restrictions Restrictions/Precautions Restrictions/Precautions: Fall Risk, Isolation Required Braces or Orthoses?: Yes Required Braces or Orthoses Other: Abdominal Binder Subjective General Chart Reviewed: Yes Referring Practitioner: Dr. Rodriges Subjective Subjective: At arrival pt. in chair, agreeable to ambulate and get back to bed. General Comment Comments: pt is MRDD Pain Screening Patient Currently in Pain: Yes Pain Assessment Pain Level: 8 Pain Location: Abdomen;Shoulder Pain Orientation: Right Vital Signs Patient Currently in Pain: Yes Orientation Orientation Overall Orientation Status: Impaired Orientation Level: Oriented to person;Disoriented to situation;Disoriented to time;Oriented to place Cognition Cognition Overall Cognitive Status: Exceptions Arousal/Alertness: Delayed responses to stimuli Objective Gait training to increase the ability to perform transfers/ambulation safely for reduced fall risk: Bed mobility Sit to Supine: Stand by assistance Transfers Sit to Stand: Contact guard assistance Stand to sit: Contact guard assistance Ambulation Ambulation?: Yes Ambulation 1 Surface: level tile Device: Rolling Walker Quality of Gait: Cues for proper management of FWW for max safety. Gait Deviations: Shuffles;Decreased step height;Staggers;Slow Romina;Deviated path Assessment Assessment: Pt. was able to perform gait this treatment but poses high fall risk d/t poor FWW management and difficulty following cues at times. Treatment Diagnosis: difficulty in walking REQUIRES PT FOLLOW UP: Yes Safety Devices Type of devices: All fall risk precautions in place, Patient at risk for falls, Gait belt, Call light within reach, Left in bed, Bed alarm in place Plan Comment: Cont per POC focusing on strength and mobility Discharge Recommendations: Home with Home health PT, Continue to assess pending progress, Home independently Goals Short Term Goals Avionics Repair Technician Goals Time Frame for combustion analyst goals : LOS combustion analyst goal 1: patient to perform supine <> sit mod I via log roll technique shelter goal 2: Patient to perform sit <> stand mod I shelter goal 3: patient to ambulate 75' with FWW mod I to ambulate household distances shelter goal 4: patient to stand for approximately 5-8 minutes with use of UE support to increasestanding tolerance and LE strength/endurance Therapy Time Individual Concurrent Group Co-treatment Time In 1235 Time Out 1250 Minutes 15 Charges Units Minutes Gait Training 1 15 Therapeutic Act Therapeutic Ex Vasopneumatic Device Self-care/Home Manage Neuro Re-ed Mod complexity michaelal Matthew Thomaslizette, SR VICE PRESIDENT [id number] * Brissa Mcallister, OT - 07/23/2020 12:57 PM EST Occupational Therapy Evaluation Date: 07/23/2020 Patient Name: Pancho Mcpherson : 1960 Date of Service: 07/23/2020 Discharge Recommendations: Home with Home health OT OT Equipment Recommendations Other: back to intermediate with home health if the above goals are not met. Assessment Performance deficits / Impairments: Decreased safe awareness;Decreased functional mobility ;Decreased ADL status;Decreased cognition;Decreased endurance;Decreased strength;Decreased ROM;Decreased high-level IADLs Assessment: Pt would benefit from skilled OT to address strength and endurance for ease and safety with all daily tasks and functional mobility. Treatment Diagnosis: Perforated viscus Prognosis: Good Decision Making: Medium Complexity OT Education: OT Role;Plan of Care Patient Education: Pt verbalized understanding and Sherly REQUIRES OT FOLLOW UP: Yes Activity Tolerance Activity Tolerance: Patient limited by fatigue Safety Devices Safety Devices in place: Yes Type of devices: Patient at risk for falls;Gait belt;All fall risk precautions in place;Left in chair;Call light within reach Patient Diagnosis(es): The primary encounter diagnosis was Bowel perforation (HCC). Diagnoses of Acute peritonitis (HCC) and Foreign body ingestion, initial encounter were also pertinent to this visit. has a past medical history of Bipolar disorder with psychotic features (HCC), Dementia (HCC), Dyslipidemia, Head injury, High cholesterol, High cholesterol, Hyperammonemia (HCC), Hypertension, Hypothyroidism, Mental retardation, Occupational circumstances, Onychomycosis, Psychosis (HCC), Schizophrenia (HCC), Seizures (HCC), Sleep apnea, and Sleep apnea. has a past surgical history that includes Leg Surgery; Toe amputation (January 2013); eye muscle surgery (Right); Orbital fracture repair (Left); and hemicolectomy (N/A, 07/22/2020). Treatment Diagnosis: Perforated viscus Restrictions Restrictions/Precautions Restrictions/Precautions: Fall Risk, Isolation(hx of MRSA; MRDD) Required Braces or Orthoses?: Yes Required Braces or Orthoses Other: Abdominal Binder Subjective General Chart Reviewed: Yes, Operative Notes Patient assessed for rehabilitation services?: Yes Additional Pertinent Hx: Pancho presents to the emergency room with abdominal pain nausea and vomiting. The symptoms are present when he awoke this morning. He was feeling fine last evening when he went to bed. He denies previous history of similar type symptoms. He denies urinary symptoms. He is running a low-grade fever. He denies recent change in bowel habits. There are no previous abdominal surgeries. The patient's sister tells me that he has been missing a dental implant. He does not have previous history of purposefully swallowing objects. Referring Practitioner: Dr. Rodriges Diagnosis: perforated viscus Patient Currently in Pain: Yes Pain Assessment Pain Level: 8 Pedraza-Mccray Pain Rating: Hurts whole lot Vital Signs Patient Currently in Pain: Yes Oxygen Therapy O2 Device: Nasal cannula Patient Observation Observations: RETURNED TO BED WITH ASSIST OF PT- GIVEN TORADOL FOR ABD. ACHING Social/Functional History Social/Functional History Lives With: Alone Type of Home: House Home Layout: One level(intermediate) Home Equipment: Wheelchair-manual ADL Assistance: Independent Homemaking Assistance: Needs assistance Ambulation Assistance: Independent(mod I for mabulation with FWW and w/c for long distances) Transfer Assistance: Independent Active Shop And Alteration Tailor: No Additional Comments: Pt is a poor historian on this date. Objective Vision: Within Functional Limits Hearing: Exceptions to WFL Orientation Overall Orientation Status: Impaired Orientation Level: Oriented to place;Disoriented to situation(mod I for mabulation with FWW and w/cfor long distances) Observation/Palpation Posture: Fair Balance Sitting Balance: Supervision Standing Balance: Contact guard assistance Functional Mobility Functional - Mobility Device: Rolling Walker Activity: (to recliner) Assist Level: Contact guard assistance Functional Mobility Comments: CGA for max safety at this time. ADL UE Dressing: Maximum assistance Tone RUE RUE Tone: Normotonic Tone LUE LUE Tone: Normotonic Coordination Movements Are Fluid And Coordinated: Yes Bed mobility Rolling to Right: Contact guard assistance Supine to Sit: Contact guard assistance(via log roll technique) Comment: Pt required mod verbal cues Transfers Sit to stand: Contact guard assistance Stand to sit: Contact guard assistance Transfer Comments: CGA with mod verbal cues for proper technique and hand placement Cognition Overall Cognitive Status: Exceptions Arousal/Alertness: Delayed responses to stimuli Sensation Overall Sensation Status: WNL LUE AROM (degrees) LUE AROM : WFL Left Hand AROM (degrees) Left Hand AROM: WFL RUE AROM (degrees) RUE AROM : WFL Right Hand AROM (degrees) Right Hand AROM: WFL LUE Strength Gross LUE Strength: WFL L Shoulder Flex: 4+/5 L Shoulder Ext: 4+/5 L Elbow Flex: 4+/5 L Elbow Ext: 4+/5 L Wrist Flex: 4+/5 L Wrist Ext: 4+/5 L Hand General: 4+/5 RUE Strength Gross RUE Strength: WFL R Shoulder Flex: 4+/5 R Shoulder Ext: 4+/5 R Elbow Flex: 4+/5 R Elbow Ext: 4+/5 R Wrist Flex: 4+/5 R Wrist Ext: 4+/5 R Hand General: 4+/5 Plan Plan Times per week: 1-2x5 Plan weeks: acute LOS Current Treatment Recommendations: Strengthening, ROM, Safety Education & Training, Patient/Caregiver Education & Training, Self-Care / ADL, Functional Mobility Training, Endurance Training, Home Management Training Goals shelter goals Time Frame for combustion analyst goals : acute LOS shelter goal 1: Patient will complete TB bathing/dressing MOD I combustion analyst goal 2: Patient will complete UE HEP with mod I to increase strength in bilateral UE's for ease with daily tasks. combustion analyst goal 3: Patient will complete functional standing with supervision for 10-15 mins, to increase standing tolerance and endurance. combustion analyst goal 4: Patient will complete all aspects of toileting and hygiene with modified independence. shelter goal 5: Patient will complete all functional transfers with MOD I and GOOD safety in prepfor discharge. Therapy Time Individual Time In 0837 Time Out 0907 Minutes 30 Charges Units Minutes Low Evaluation Moderate Evaluation 1 20 High Evaluation Self-care/Home management 1 10 Therapeutic Activity Therapeutic Exercise Manual Therapy Signature: Brissa Mcallister OTR/L, MOT #[id number] * Antoinette Khan, PT - 07/23/2020 11:49 AM EST Facility/Department: [facility] MED SURG Physical Therapy Evaluation NAME: Pancho Mcpherson : 1960 Date of Service: 07/23/2020 Discharge Recommendations: Home with Home health PT, Continue to assess pending progress, Home independently Assessment Body structures, Functions, Activity limitations: Decreased functional mobility ;Decreased strength;Decreased endurance;Decreased posture;Decreased safe awareness;Decreased balance;Decreased cognition;Increased pain;Decreased coordination Assessment: pt demo increased fatigue s/p evaluation and fell asleep quickly after left up in the chair. Pt did not report of any pain during transfers this date Treatment Diagnosis: difficulty in walking Prognosis: Good Decision Making: Medium Complexity Exam: evolving PT Education: Goals;PT Role;Plan of Care;Transfer Training;General Safety;Gait Training;Functional Mobility Training REQUIRES PT FOLLOW UP: Yes Activity Tolerance Activity Tolerance: Patient Tolerated treatment well Patient Diagnosis(es): The primary encounter diagnosis was Bowel perforation (HCC). Diagnoses of Acute peritonitis (HCC) and Foreign body ingestion, initial encounter were also pertinent to this visit. has a past medical history of Bipolar disorder with psychotic features (HCC), Dementia (HCC), Dyslipidemia, Head injury, High cholesterol, High cholesterol, Hyperammonemia (HCC), Hypertension, Hypothyroidism, Mental retardation, Occupational circumstances, Onychomycosis, Psychosis (HCC), Schizophrenia (HCC), Seizures (HCC), Sleep apnea, and Sleep apnea. has a past surgical history that includes Leg Surgery; Toe amputation (January 2013); eye muscle surgery (Right); Orbital fracture repair (Left); and hemicolectomy (N/A, 07/22/2020). Restrictions Restrictions/Precautions Restrictions/Precautions: Fall Risk, Isolation(hx of MRSA; MRDD) Required Braces or Orthoses?: Yes Required Braces or Orthoses Other: Abdominal Binder Vision/Hearing Vision: Within Functional Limits Hearing: Exceptions to WFL Subjective General Chart Reviewed: Yes Patient assessed for rehabilitation services?: Yes Additional Pertinent Hx: Pancho presents to the emergency room with abdominal pain nausea and vomiting. The symptoms are present when he awoke this morning. He was feeling fine last evening when he went to bed. He denies previous history of similar type symptoms. He denies urinary symptoms. He is running a low-grade fever. He denies recent change in bowel habits. There are no previous abdominal surgeries. The patient's sister tells me that he has been missing a dental implant. He does not have previous history of purposefully swallowing objects. Family / Caregiver Present: No(midway through ev, sister Sherly arrived and was able to answer a few questions about PLOF) Referring Practitioner: Dr. Rodriges Referral Date : 07/23/20(R hemicolectomy 07-22-2020) Diagnosis: peforated viscus Follows Commands: Impaired General Comment Comments: pt is MRDD Subjective Subjective: Pt reports upon arrival that he is sore. States in his R shoulder and his belly. Pain Screening Patient Currently in Pain: Yes Pain Assessment Pain Assessment: Faces Pedraza-Mccray Pain Rating: Hurts whole lot Pain Location: Abdomen;Shoulder Pain Orientation: Right Vital Signs Patient Currently in Pain: Yes Orientation Orientation Overall Orientation Status: Impaired Orientation Level: Oriented to person;Disoriented to situation;Disoriented to time;Oriented to place Social/Functional History Social/Functional History Lives With: Alone Type of Home: House Home Layout: One level(intermediate) Home Equipment: Wheelchair-manual ADL Assistance: Independent Homemaking Assistance: Needs assistance Ambulation Assistance: Independent(mod I for mabulation with FWW and w/c for long distances) Transfer Assistance: Independent Active Shop And Alteration Tailor: No Additional Comments: Pt is a poor historian on this date. Cognition Cognition Overall Cognitive Status: Exceptions Arousal/Alertness: Delayed responses to stimuli Objective Bed mobility Rolling to Right: Contact guard assistance Supine to Sit: Contact guard assistance(via log roll technique) Transfers Sit to Stand: Contact guard assistance Stand to sit: Contact guard assistance Stand Pivot Transfers: Contact guard assistance;Minimal Assistance(min A x 1, CGA x2 with FWW with max verbal and tactile cues for walker management and proper gait sequencing) Balance Posture: Fair Sitting - Static: Fair Sitting - Dynamic: Fair;- Standing - Static: Fair Standing - Dynamic: Fair AROM RLE (degrees) RLE AROM: WFL AROM LLE (degrees) LLE AROM : WFL Strength RLE Strength RLE: Exception R Hip Flexion: 4-/5 R Hip ABduction: 4/5 R Hip ADduction: 4/5 R Knee Flexion: 4+/5 R Knee Extension: 4+/5 R Ankle Dorsiflexion: 4+/5 R Ankle Plantar flexion: 4+/5 Strength LLE Strength LLE: Exception L Hip Flexion: 4-/5 L Hip ABduction: 4+/5 L Knee Flexion: 4+/5 L Knee Extension: 4+/5 L Ankle Dorsiflexion: 4+/5 L Ankle Plantar Flexion: 4+/5 Plan Plan Times per week: 5-6x/week Times per day: (1-2x/day) Plan weeks: LOS Current Treatment Recommendations: Strengthening, Functional Mobility Training, Balance Training, Endurance Training, Gait Training, Transfer Training, Neuromuscular Re-education, Safety Education & Training, Pain Management, Patient/Caregiver Education & Training, Home Exercise Program Plan Comment: cont per POC focusing on strength and mobility Safety Devices Type of devices: All fall risk precautions in place, Patient at risk for falls, Left in chair, Gaitbelt, Call light within reach OutComes Score AM-PAC Score Goals shelter goals Time Frame for combustion analyst goals : LOS combustion analyst goal 1: patient to perform supine <> sit mod I via log roll technique combustion analyst goal 2: Patient to perform sit <> stand mod I combustion analyst goal 3: patient to ambulate 75' with FWW mod I to ambulate household distances combustion analyst goal 4: patient to stand for approximately 5-8 minutes with use of UE support to increasestanding tolerance and LE strength/endurance Therapy Time Individual Concurrent Group Co-treatment Time In 0837 Time Out 0907 Minutes 30 Charges Units Minutes Gait Training Therapeutic Act 1 15 Therapeutic Ex Vasopneumatic Device Self-care/Home Manage Neuro Re-ed Mod complexity eval 1 15 Antoinette Khan, PT , DPT License #[id number] documented in this encounter* Laya Rodriges MD - 08/20/2020 2:00 PM EST Pancho is seen back 1 week after discharge. He initially presented about a month ago with abdominalpain and vomiting. He was diagnosed with a perforated viscus. He underwent ileocecectomy. Postoperative course was quite complicated. He is doing well since discharge. He has had some diarrhea. Stoolfor C. difficile was negative. He was diagnosed with a urinary tract infection. He is currently on o ral antibiotics. He is eating well. Patient appears well. His abdomen is soft and nontender. His wound has made significant progress since discharge. We will switch to Promogran dressing changes that will be done daily. I would like tosee Pancho back in the office in 2 weeks. documented in this encounter* Laya Rodriges MD - 09/03/2020 1:30 PM EST Pancho is seen back. He is doing well. Abdominal wound has nearly completely healed. We will continue to use Promogran. The dressing will be changed once daily. I will see him back in 2 to 3 weeks toreassess. documented in this encounter* John Paul Dorado RN - 05/17/2019 7:15 PM EDT Pt discharged back to intermediate. Jessi came to pick up worker patient. Discharge paperwork given. Verbalizes understanding about discharged paperwork and to make follow-up appointments. PIV discontinued. * John Paul Dorado RN - 05/17/2019 6:10 PM EDT Called patient sister, Sherly, about patient being discharged @1630. Stated that she will call [facility] class 1 owner operator, Jessi, about picking patient up. No response from Jessi. Sherly called again at @1680. Stated that Jessi is waiting for an employee to come and relieve her so she can come and get him. Awaiting call at this time. Will continue to monitor. * Michael Kenny MD - 05/17/2019 11:10 AM EDT NEUROLOGY INPATIENT PROGRESS NOTE 05/17/2019 Subjective: Pancho Mcpherson is a 59 y.o. male admitted on 05/13/2019 with Seizures (HCC) [R56.9] Briefly, this is a 59 y.o. male admitted on 05/13/2019 with MRDD with seizure disorder who follows outpatient with Dr. Lindsey. Currently undergoing evaluation for patient refractory seizures versus breakthrough seizures, on LTME monitoring. On 4 seizure medications currently, Keppra 2000--> 1000 mg p.o. twice daily, Dilantin 300 mg p.o. nightly, phenobarbital 64.8+64.8+34.2, Klonopin 1 mg nightly.LTME performed till now suggestive ofmild to moderate diffuse encephalopathy, no epileptiform discharges or EEG/clinical seizures. Dose of Keppra decreased in view of agitated behavior. Day 3 EEG findings not suggestive of epileptiform discharges. Suggestive of mild to moderate diffuse encephalopathy. Due for EEG. Nonsuggestive of epileptiform discharges. This is a history of mild to moderate diffuse encephalopathy. On current evaluation, afebrile,VSS, no acute events overnight. Able to respond to commands, AOX1. Total and free phenytoin, phenobarbital levels within normal range. Review of Systems Constitutional: Positive for activity change and appetite change. HENT: Negative. Eyes: Negative for photophobia. Respiratory: Negative. Cardiovascular: Negative. Gastrointestinal: Negative for nausea. Endocrine: Negative. Genitourinary: Negative. Musculoskeletal: Negative for neck stiffness. Skin: Negative. Neurological: Negative for weakness, numbness and headaches. Psychiatric/Behavioral: Negative for agitation. The patient is not nervous/anxious. No current facility-administered medications on file prior to encounter. Current Outpatient Medications on File Prior to Encounter Medication Sig Dispense Refill phenytoin (DILANTIN INFATABS) 50 MG tablet Take 1 tablet by mouth nightly (Patient taking differently: Take 50 mg by mouth nightly Indications: trying to clarify times from his pharmacy ) 90 tablet 3 levothyroxine (SYNTHROID) 50 MCG tablet Take 50 mcg by mouth every other day CPAP Machine MISC by Does not apply route QUEtiapine (SEROQUEL) 25 MG tablet Take 25 mg by mouth daily Indications: take one tablet at 3 PM acetaminophen (TYLENOL) 500 MG tablet Take 650 mg by mouth every 4 hours as needed for Pain vitamin D (CHOLECALCIFEROL) 1000 UNIT TABS tablet Take 1,000 Units by mouth once a week Indications: take one cap at 8 AM on Saturdays only clonazePAM (KLONOPIN) 1 MG tablet Take one tab nightly. 30 tablet 2 PHENobarbital (LUMINAL) 64.8 MG tablet Take 1 tablet by mouth 3 times daily for 90 days. (Patient taking differently: Take 64.8 mg by mouth 3 times daily. Takes 1 tab at 0800, 1600, and 2000) 90 tablet 2 Calcium Carbonate (CALCIUM 600 PO) Take 1 tablet by mouth 2 times daily levETIRAcetam (KEPPRA) 1000 MG tablet Take 2 tablets by mouth 2 times daily (Patient taking differently: Take 500 mg by mouth 2 times daily Per pharmacy record, takes 500 mg tabs orally takes 4 tabs at 0800, and 4 tabs at 2000) 120 tablet 2 phenytoin (DILANTIN) 100 MG ER capsule Take 3 capsules by mouth nightly 90 capsule 2 memantine (NAMENDA) 5 MG tablet Take 1 tablet by mouth 2 times daily (Patient taking differently: Take 5 mg by mouth 2 times daily Takes 1 tablet at 0800, and 1 tablet at 2000) 60 tablet 2 aluminum & magnesium hydroxide-simethicone (ALMACONE DOUBLE STRENGTH) 400-400-40 MG/5ML SUSP Take 5 mLs by mouth every 6 hours as needed LEVOTHYROXINE SODIUM PO Take 0.2 mcg by mouth daily Calcium & Magnesium Carbonates (MYLANTA PO) Take 30 mLs by mouth every 4 hours as needed promethazine (PHENERGAN) 25 MG tablet Take 25 mg by mouth every 6 hours as needed for Nausea amLODIPine (NORVASC) 10 MG tablet Take 10 mg by mouth daily QUEtiapine (SEROQUEL) 50 MG tablet Take 50 mg by mouth every morning Along with 25 mg tab to total 75 mg. QUEtiapine (SEROQUEL) 300 MG tablet Take 300 mg by mouth nightly cetirizine (ZYRTEC) 10 MG tablet Take 10 mg by mouth daily as needed for Allergies atorvastatin (LIPITOR) 10 MG tablet Take 10 mg by mouth daily folic acid (FOLVITE) 1 MG tablet Take 1 tablet by mouth daily 30 tablet 5 acetaminophen (TYLENOL) 325 MG tablet Take 650 mg by mouth every 4 hours as needed for Pain metoprolol (LOPRESSOR) 50 MG tablet Take 50 mg by mouth 2 times daily Takes 1 tab at 0800, and 1 tab at 2000 PARoxetine (PAXIL) 40 MG tablet Take 40 mg by mouth every morning. docusate sodium (COLACE) 100 MG capsule Take 100 mg by mouth daily. Allergies: Pancho Mcpherson has No Known Allergies. Past Medical History: Diagnosis Date Bipolar disorder with psychotic features (HCC) Dementia Dyslipidemia Hyperammonemia (HCC) Hypertension Hypothyroidism Mental retardation Occupational circumstances [employer] Onychomycosis Psychosis (HCC) Seizures ([facility]) Sleep apnea Past Surgical History: Procedure Laterality Date EYE MUSCLE SURGERY Right LEG SURGERY at age 19 had pin in left leg TOE AMPUTATION January 2013 left 5th toe Medications: levETIRAcetam 1,000 mg Oral BID amLODIPine 10 mg Oral Daily atorvastatin 10 mg Oral Daily clonazePAM 1 mg Oral Nightly docusate sodium 100 mg Oral Daily levothyroxine 50 mcg Oral Every Other Day memantine 5 mg Oral BID metoprolol tartrate 50 mg Oral BID PARoxetine 40 mg Oral QAM PHENobarbital 64.8 mg Oral TID phenytoin 50 mg Oral Nightly phenytoin 300 mg Oral Nightly QUEtiapine 25 mg Oral Daily QUEtiapine 300 mg Oral Nightly QUEtiapine 75 mg Oral QAM [START ON 05/18/2019] vitamin D 1,000 Units Oral Weekly sodium chloride flush 10 mL Intravenous 2 times per day enoxaparin 40 mg Subcutaneous Daily levothyroxine 200 mcg Oral Daily PRN Meds include: ondansetron, sodium chloride flush, magnesium hydroxide, LORazepam Objective: BP 138/88 Pulse 56 Temp 98.2 F (36.8 C) (Oral) Resp 15 Ht 5' 5 (1.651 m) Wt 208 lb 5.4 oz (94.5 kg) SpO2 96% BMI 34.67 kg/m Blood pressure range: Systolic (24hrs), Av , Min:118 , Max:138 ; Diastolic (24hrs), Av, Min:67, Max:88 NEUROLOGIC EXAMINATION GENERAL Appears comfortable and in no distress HEENT NC/ AT cardiovascular S1 and S2 heard; palpation of pulses: radial pulse NECK Supple and no bruits heard MENTAL STATUS: Alert, oriented x 1 normal speech, normal language, no hallucination or delusion CRANIAL NERVES: II - PERRLA, optic discs; clear; posterior segments Visual souza intact to confrontation III,IV, - EOMs full, no afferent defect, no OG, no ptosis V - Normal facial sensation VII - Normal facial symmetry VIII - Intact hearing IX,X - Symmetrical palate XI - Symmetrical shoulder shrug XII - Midline tongue, no atrophy MOTOR FUNCTION: significant for good strength of grade 5/5 in bilateral proximal and distal muscle groups of both upper and lower extremities with normal bulk, normal tone and no involuntary movements, no tremor SENSORY FUNCTION: Normal touch, normal pin, normal vibration, normal proprioception CEREBELLAR FUNCTION: Intact fine motor control over upper limbs REFLEX FUNCTION: Symmetric, no perverted reflex, no Babinski sign STATION and GAIT Not tested Data: No results found. Lab Results: CBC: No results for input(s): WBC, HGB, PLT in the last 72 hours. BMP: No results for input(s): NA, K, CL, CO2, BUN, CREATININE, GLUCOSE in the last 72 hours. Lab Results Component Value Date CHOL 138 07/21/2017 LDLCHOLESTEROL 64 07/21/2017 HDL 57 07/21/2017 TRIG 84 07/21/2017 ALT 36 10/02/2015 AST 23 10/02/2015 TSH 1.20 07/21/2017 LABA1C 5.2 03/08/2014 [id number] 339 06/10/2015 Lab Results Component Value Date PHENYTOIN 12.3 05/14/2019 VALPROATE 73 03/04/2015 Assessment: 1. Refractory seizure disorder 2. MRDD 3. Agitated behavior Plan : 1. LTME nonsuggestive of new epileptiform changes.further recommendations based on the EEG final report. 2. Keppra [id number] mg BID, keeping dilantin 300 mg po qhs , phenobarbital 40/60/60 and klonopin 1 mg po qhs. Drug levels of AEDs therapeutic.Will consider changes to the AED's as needed. 3. Fall precaution. 4. Aspiration precautions. Michael Kenny M.D. Internal Medicine Resident , PGY-2 [facility] 05/17/19 11:20 AM Associated attestation - Damon Bates MD - 05/17/2019 3:33 PM EDT I have discussed the care of patient including pertinent history and exam findings, with the Neurology resident. I have seen and examined the patient and the foley elements of all parts of the encounter have been performed by me. I agree with the assessment, plan and orders as documented by the fellow/resident, after I modified exam findings and plan of treatments, and the final version is my approved version of the assessment. Active problem Seizure disorder . MRDD . The condition is LTME mild to moderate diffuse slowing There were several bursts of very fast activities mostly in left temporal chains, with one episode of confusion highly suspicious EEG seizure . Patient with MRDD with seizure disorder followed by Dr Lindsey . Keppra has been lowered to 1000 mg po bid from home dose 2000 mg po bid during LTME on dilantin 300 mg po qhs , phenobarbital 40/60/60 and klonopin 1 mg po qhs still having seizures in sleep grandmal in type from 3 to 8 seizures per month admitted for LTME . Dilantin level 12.3 , Free dilantin level 1.1 , phenobarbital [address] normal On exam he is alert and oriented x1 normal language process . There are normal cranial nerves . There is normal cerebellar exam . There is normal sensation with symmetrical reflexes Impression Seizure disorder . MRDD Plan D/C LTME . Discharge on keppra 2000 mg po bid during LTME on dilantin 300 mg po qhs , phenobarbital 40/60/60 and klonopin 1 mg po qhs. FU Dr Lindsey 4 weeks . Discussed with Dr Maher * Shelby Kilgore - 05/17/2019 3:54 AM EDT Total rehook of LTME * Celine Gonzales, ARIANNA - 05/17/2019 12:32 AM EDT Upon waking pt for vitals, pt was startled and pulled Bipap and EEG leads completely off. * Qing Galarza - 05/16/2019 12:46 PM EDT Department of Neurological Sciences Section of General Neurology - Adult Medical Student Progress Note SUBJECTIVE: Chart reviewed and patient examined by me. Spoke with Mr. Mcpherson today. He continue to be monitored on LTME and states that he is doing well without any complaints. No events overnight. He appears comfortable and is in no acute distress. HISTORY OF PRESENT ILLNESS: Briefly, this is a 59 y.o. male admitted on 05/13/2019 with MRDD with seizure disorder who follows outpatient with Dr. Lindsey. Currently undergoing evaluation for patient refractory seizures versus breakthrough seizures, on LTME monitoring. On 4 seizure medications currently, Keppra 2000 mg p.o. twice daily, Dilantin 300 mg p.o. nightly, [id number]+64.8+34.2, Klonopin 1 mg nightly.LTME performed till now suggestive of mild to moderate diffuse encephalopathy, no epileptiform discharges or EEG/clinical seizures. Recording for today(Day 2) in process. on current evaluation, afebrile,VSS, Able to respond to commands, AOX1. Overnight patient was agitated and was trying to remove the LTME monitoring equipment and was drowsyafter a while. Per LTM monitoring patient could have had a seizure and postictal afterwards. Patient has telesitter at bedside. As per chart review, patient previously had subtherapeutic levels of antiseizure medications which could contribute to frequent seizures or could be the primary cause. OBJECTIVE: Vitals: 05/16/19 1235 BP: 119/80 Pulse: 74 Resp: 23 Temp: 98.1 F (36.7 C) SpO2: PHYSICAL EXAM: General Appearance: Comfortable and in no acute distress Mental Status Exam: Level of Alertness: awake Orientation: person, place, time Cranial Nerves: II: Visual souza: normal III: Pupils: equal, round, reactive to light III,IV,: Extra Ocular Movements: intact V: Facial sensation: intact VII: Facial strength: intact VIII: Hearing: intact IX: Palate: intact XI: Shoulder shrug: intact XII: Tongue movement: normal Motor: Drift: absent Motor exam is symmetrical 5 out of 5 all extremities bilaterally Tone: normal Abnormal Movements: absent Sensory: Touch: Right Upper Extremity: normal Left Upper Extremity: normal Right Lower Extremity: normal Left Lower Extremity: normal Coordination: Finger/Nose: Right: normal Left: normal Reflexes: Deep Tendon Reflexes: Right Bicep: 2+ Left Bicep: 2+ Right Brachioradialis: 2+ Left Brachioradialis: 2+ Right Knee: 2+ Left Knee: 2+ DATA: LABS: General Labs: CBC with Differential: Lab Results Component Value Date WBC 8.0 05/14/2019 RBC 4.73 05/14/2019 HGB 13.8 05/14/2019 HCT 43.2 05/14/2019 PLT 207 05/14/2019 MCV 91.3 05/14/2019 MCH 29.2 05/14/2019 MCHC 31.9 05/14/2019 RDW 13.2 05/14/2019 LYMPHOPCT 36 05/14/2019 MONOPCT 11 05/14/2019 BASOPCT 0 05/14/2019 MONOSABS 0.89 05/14/2019 LYMPHSABS 2.86 05/14/2019 EOSABS 0.22 05/14/2019 BASOSABS 0.03 05/14/2019 DIFFTYPE NOT REPORTED 05/14/2019 CMP: Lab Results Component Value Date NA 137 05/14/2019 K 4.1 05/14/2019 CL 97 05/14/2019 CO2 28 05/14/2019 BUN 11 05/14/2019 CREATININE 0.81 05/14/2019 GFRAA >60 05/14/2019 LABGLOM >60 05/14/2019 GLUCOSE 102 05/14/2019 PROT 7.2 10/02/2015 LABALBU 4.0 10/02/2015 CALCIUM 8.9 05/14/2019 BILITOT 0.17 10/02/2015 ALKPHOS 117 10/02/2015 AST 23 10/02/2015 ALT 36 10/02/2015 Drug Levels: Dilantin, Phenytek (Phenytoin): No components found for: DIL, DILFREE Free Dilantin Level: No components found for: DILFREE Keppra (Levetiracetam): No components found for: LEVETIRA Klonopin (Clonazepam): Lab Results Component Value Date CLONAZ 5 04/22/2019 Phenobarbital: No components found for: PHEN No current facility-administered medications on file prior to encounter. Current Outpatient Medications on File Prior to Encounter Medication Sig Dispense Refill phenytoin (DILANTIN INFATABS) 50 MG tablet Take 1 tablet by mouth nightly (Patient taking differently: Take 50 mg by mouth nightly Indications: trying to clarify times from his pharmacy ) 90 tablet 3 levothyroxine (SYNTHROID) 50 MCG tablet Take 50 mcg by mouth every other day CPAP Machine MISC by Does not apply route QUEtiapine (SEROQUEL) 25 MG tablet Take 25 mg by mouth daily Indications: take one tablet at 3 PM acetaminophen (TYLENOL) 500 MG tablet Take 650 mg by mouth every 4 hours as needed for Pain vitamin D (CHOLECALCIFEROL) 1000 UNIT TABS tablet Take 1,000 Units by mouth once a week Indications: take one cap at 8 AM on Saturdays only clonazePAM (KLONOPIN) 1 MG tablet Take one tab nightly. 30 tablet 2 PHENobarbital (LUMINAL) 64.8 MG tablet Take 1 tablet by mouth 3 times daily for 90 days. (Patient taking differently: Take 64.8 mg by mouth 3 times daily. Takes 1 tab at 0800, 1600, and 2000) 90 tablet 2 Calcium Carbonate (CALCIUM 600 PO) Take 1 tablet by mouth 2 times daily levETIRAcetam (KEPPRA) 1000 MG tablet Take 2 tablets by mouth 2 times daily (Patient taking differently: Take 500 mg by mouth 2 times daily Per pharmacy record, takes 500 mg tabs orally takes 4 tabs at 0800, and 4 tabs at 2000) 120 tablet 2 phenytoin (DILANTIN) 100 MG ER capsule Take 3 capsules by mouth nightly 90 capsule 2 memantine (NAMENDA) 5 MG tablet Take 1 tablet by mouth 2 times daily (Patient taking differently: Take 5 mg by mouth 2 times daily Takes 1 tablet at 0800, and 1 tablet at 2000) 60 tablet 2 aluminum & magnesium hydroxide-simethicone (ALMACONE DOUBLE STRENGTH) 400-400-40 MG/5ML SUSP Take 5 mLs by mouth every 6 hours as needed LEVOTHYROXINE SODIUM PO Take 0.2 mcg by mouth daily Calcium & Magnesium Carbonates (MYLANTA PO) Take 30 mLs by mouth every 4 hours as needed promethazine (PHENERGAN) 25 MG tablet Take 25 mg by mouth every 6 hours as needed for Nausea amLODIPine (NORVASC) 10 MG tablet Take 10 mg by mouth daily QUEtiapine (SEROQUEL) 50 MG tablet Take 50 mg by mouth every morning Along with 25 mg tab to total 75 mg. QUEtiapine (SEROQUEL) 300 MG tablet Take 300 mg by mouth nightly cetirizine (ZYRTEC) 10 MG tablet Take 10 mg by mouth daily as needed for Allergies atorvastatin (LIPITOR) 10 MG tablet Take 10 mg by mouth daily folic acid (FOLVITE) 1 MG tablet Take 1 tablet by mouth daily 30 tablet 5 acetaminophen (TYLENOL) 325 MG tablet Take 650 mg by mouth every 4 hours as needed for Pain metoprolol (LOPRESSOR) 50 MG tablet Take 50 mg by mouth 2 times daily Takes 1 tab at 0800, and 1 tab at 2000 PARoxetine (PAXIL) 40 MG tablet Take 40 mg by mouth every morning. docusate sodium (COLACE) 100 MG capsule Take 100 mg by mouth daily. Current Facility-Administered Medications Medication Dose Route Frequency Provider Last Rate Last Dose levETIRAcetam (KEPPRA) tablet 1,000 mg 1,000 mg Oral BID , DO 1,000 mg at 05/16/19815 amLODIPine (NORVASC) tablet 10 mg 10 mg Oral Daily , DO 10 mg at 05/16/19815 atorvastatin (LIPITOR) tablet 10 mg 10 mg Oral Daily , DO 10 mg at 05/16/19817 clonazePAM (KLONOPIN) tablet 1 mg 1 mg Oral Nightly , DO 1 mg at 05/15/192047 docusate sodium (COLACE) capsule 100 mg 100 mg Oral Daily , DO 100 mg at 05/16/19 08 levothyroxine (SYNTHROID) tablet 50 mcg 50 mcg Oral Every Other Day , DO 50 mcg at 05/15/19 104 memantine (NAMENDA) tablet 5 mg 5 mg Oral BID , DO 5 mg at 05/16/19817 metoprolol tartrate (LOPRESSOR) tablet 50 mg 50 mg Oral BID , DO 50 mg at 05/16/1917 PARoxetine (PAXIL) tablet 40 mg 40 mg Oral QAM Brooklyn Ballone, DO 40 mg at 05/16/19 0817 PHENobarbital (LUMINAL) tablet 64.8 mg 64.8 mg Oral TID Brooklyn , DO 64.8 mg at 05/16/19 0817 phenytoin (DILANTIN) chewable tablet 50 mg 50 mg Oral Nightly Brooklyn Ballone, DO 50 mg at 05/15/19 2224 phenytoin (PHENYTEK) ER capsule 300 mg 300 mg Oral Nightly Brooklyn Ballone, DO 300 mg at 05/15/192047 QUEtiapine (SEROQUEL) tablet 25 mg 25 mg Oral Daily Brooklyn Ballone, DO 25 mg at 05/15/19 1527 QUEtiapine (SEROQUEL) tablet 300 mg 300 mg Oral Nightly Brooklyn Ballone, DO 300 mg at 05/15/192047 QUEtiapine (SEROQUEL) tablet 75 mg 75 mg Oral QAM , DO 75 mg at 05/16/19 0815 [START ON 05/18/2019] vitamin D (CHOLECALCIFEROL) tablet 1,000 Units 1,000 Units Oral Weekly Brooklyn one, DO sodium chloride flush 0.9 % injection 10 mL 10 mL Intravenous 2 times per day Brooklyn one, DO 10mL at 05/16/19 0812 sodium chloride flush 0.9 % injection 10 mL 10 mL Intravenous PRN Brooklyn Aragon, DO magnesium hydroxide (MILK OF MAGNESIA) 400 MG/5ML suspension 30 mL 30 mL Oral Daily PRN Brooklyn one, DO enoxaparin (LOVENOX) injection 40 mg 40 mg Subcutaneous Daily Brooklyn , DO 40 mg at 05/16/19 0813 levothyroxine (SYNTHROID) tablet 200 mcg 200 mcg Oral Daily Brooklyn , DO 200 mcg at 05/16/19 0817 LORazepam (ATIVAN) injection 2 mg 2 mg Intravenous Q6H PRN Brooklyn one, DO ASSESSMENT AND PLAN: 1. Seizures refractory to medical treatment: Continue LTME, final assessment based on LTME. May consider changes to AEDs 2. Fall precautions 4. Aspiration percautions Associated attestation - Damon Bates MD - 05/16/2019 3:22 PM EDT I have discussed the care of patient including pertinent history and exam findings, with the Neurology resident. I have seen and examined the patient and the foley elements of all parts of the encounter have been performed by me. I agree with the assessment, plan and orders as documented by the fellow/resident, after I modified exam findings and plan of treatments, and the final version is my approved version of the assessment. Active problem Seizure disorder . MRDD . The condition is LTME mild diffuse slowing with one episode of confusion highly suspicious EEG seizure with left temporal chain mild to moderate diffuse slowing . Patient with MRDD with seizure disorder followed by Dr Lindsey . Keppra has been lowered to 1000 mg po bid from home dose 2000 mg po bid during LTME on dilantin 300 mg po qhs , phenobarbital 40/60/60 and klonopin 1 mg po qhs still having seizures in sleep grandmal in type from 3 to 8 seizures per month admitted for LTME . Dilantin level 12.3 , Free dilantin level 1.1 , phenobarbital [address] normal On exam he is alert and oriented x1 normal language process . There are normal cranial nerves . There is normal cerebellar exam . There is normal sensation with symmetrical reflexes Impression Seizure disorder . MRDD Plan Continue LTME . * Michael Kenny MD - 05/15/2019 9:56 AM EDT NEUROLOGY INPATIENT PROGRESS NOTE 05/15/2019 Subjective: Pancho Mcpherson is a 59 y.o. male admitted on 05/13/2019 with Seizures (FORMERLY [facility]) [R56.9] Briefly, this is a 59 y.o. male admitted on 05/13/2019 with MRDD with seizure disorder who follows outpatient with Dr. Lindsey. Currently undergoing evaluation for patient refractory seizures versus breakthrough seizures, on LTME monitoring. On 4 seizure medications currently, Keppra 2000 mg p.o. twice daily, Dilantin 300 mg p.o. nightly, [id number]+64.8+34.2, Klonopin 1 mg nightly.LTME performed till now suggestive of mild to moderate diffuse encephalopathy, no epileptiform discharges or EEG/clinical seizures. Recording for today(Day 2) in process. on current evaluation, afebrile,VSS, Able to respond to commands, AOX1. Overnight patient was agitated and was trying to remove the LTME monitoring equipment and was drowsyafter a while. Per LTM monitoring patient could have had a seizure and postictal afterwards. Patient has telesitter at bedside. As per chart review, patient previously had subtherapeutic levels of antiseizure medications which could contribute to frequent seizures or could be the primary cause. No current facility-administered medications on file prior to encounter. Current Outpatient Medications on File Prior to Encounter Medication Sig Dispense Refill phenytoin (DILANTIN INFATABS) 50 MG tablet Take 1 tablet by mouth nightly (Patient taking differently: Take 50 mg by mouth nightly Indications: trying to clarify times from his pharmacy ) 90 tablet 3 levothyroxine (SYNTHROID) 50 MCG tablet Take 50 mcg by mouth every other day CPAP Machine MISC by Does not apply route QUEtiapine (SEROQUEL) 25 MG tablet Take 25 mg by mouth daily Indications: take one tablet at 3 PM acetaminophen (TYLENOL) 500 MG tablet Take 650 mg by mouth every 4 hours as needed for Pain vitamin D (CHOLECALCIFEROL) 1000 UNIT TABS tablet Take 1,000 Units by mouth once a week Indications: take one cap at 8 AM on Saturdays only clonazePAM (KLONOPIN) 1 MG tablet Take one tab nightly. 30 tablet 2 PHENobarbital (LUMINAL) 64.8 MG tablet Take 1 tablet by mouth 3 times daily for 90 days. (Patient taking differently: Take 64.8 mg by mouth 3 times daily. Takes 1 tab at 0800, 1600, and 2000) 90 tablet 2 Calcium Carbonate (CALCIUM 600 PO) Take 1 tablet by mouth 2 times daily levETIRAcetam (KEPPRA) 1000 MG tablet Take 2 tablets by mouth 2 times daily (Patient taking differently: Take 500 mg by mouth 2 times daily Per pharmacy record, takes 500 mg tabs orally takes 4 tabs at 0800, and 4 tabs at 2000) 120 tablet 2 phenytoin (DILANTIN) 100 MG ER capsule Take 3 capsules by mouth nightly 90 capsule 2 memantine (NAMENDA) 5 MG tablet Take 1 tablet by mouth 2 times daily (Patient taking differently: Take 5 mg by mouth 2 times daily Takes 1 tablet at 0800, and 1 tablet at 2000) 60 tablet 2 aluminum & magnesium hydroxide-simethicone (ALMACONE DOUBLE STRENGTH) 400-400-40 MG/5ML SUSP Take 5 mLs by mouth every 6 hours as needed LEVOTHYROXINE SODIUM PO Take 0.2 mcg by mouth daily Calcium & Magnesium Carbonates (MYLANTA PO) Take 30 mLs by mouth every 4 hours as needed promethazine (PHENERGAN) 25 MG tablet Take 25 mg by mouth every 6 hours as needed for Nausea amLODIPine (NORVASC) 10 MG tablet Take 10 mg by mouth daily QUEtiapine (SEROQUEL) 50 MG tablet Take 50 mg by mouth every morning Along with 25 mg tab to total 75 mg. QUEtiapine (SEROQUEL) 300 MG tablet Take 300 mg by mouth nightly cetirizine (ZYRTEC) 10 MG tablet Take 10 mg by mouth daily as needed for Allergies atorvastatin (LIPITOR) 10 MG tablet Take 10 mg by mouth daily folic acid (FOLVITE) 1 MG tablet Take 1 tablet by mouth daily 30 tablet 5 acetaminophen (TYLENOL) 325 MG tablet Take 650 mg by mouth every 4 hours as needed for Pain metoprolol (LOPRESSOR) 50 MG tablet Take 50 mg by mouth 2 times daily Takes 1 tab at 0800, and 1 tab at 2000 PARoxetine (PAXIL) 40 MG tablet Take 40 mg by mouth every morning. docusate sodium (COLACE) 100 MG capsule Take 100 mg by mouth daily. Allergies: Pancho Mcpherson has No Known Allergies. Past Medical History: Diagnosis Date Bipolar disorder with psychotic features (HCC) Dementia Dyslipidemia Hyperammonemia (HCC) Hypertension Hypothyroidism Mental retardation [employer] Onychomycosis Psychosis (HCC) Seizures (FORMERLY [facility]) Sleep apnea Past Surgical History: Procedure Laterality Date EYE MUSCLE SURGERY Right LEG SURGERY at age 19 had pin in left leg TOE AMPUTATION January 2013 left 5th toe Medications: amLODIPine 10 mg Oral Daily atorvastatin 10 mg Oral Daily clonazePAM 1 mg Oral Nightly docusate sodium 100 mg Oral Daily levothyroxine 50 mcg Oral Every Other Day memantine 5 mg Oral BID metoprolol tartrate 50 mg Oral BID PARoxetine 40 mg Oral QAM PHENobarbital 64.8 mg Oral TID phenytoin 50 mg Oral Nightly phenytoin 300 mg Oral Nightly QUEtiapine 25 mg Oral Daily QUEtiapine 300 mg Oral Nightly QUEtiapine 75 mg Oral QAM [START ON 05/18/2019] vitamin D 1,000 Units Oral Weekly sodium chloride flush 10 mL Intravenous 2 times per day enoxaparin 40 mg Subcutaneous Daily levothyroxine 200 mcg Oral Daily levETIRAcetam 2,000 mg Oral BID PRN Meds include: sodium chloride flush, magnesium hydroxide, LORazepam Objective: BP (!) 137/93 Pulse 59 Temp 97.7 F (36.5 C) (Oral) Resp 18 Ht 5' 5 (1.651 m) Wt 208 lb 5.4 oz (94.5 kg) SpO2 94% BMI 34.67 kg/m Blood pressure range: Systolic (24hrs), Av , Min:115 , Max:143 ; Diastolic (24hrs), Av, Min:81, Max:131 NEUROLOGIC EXAMINATION GENERAL Appears comfortable and in no distress HEENT NC/ AT cardiovascular S1 and S2 heard; palpation of pulses: radial pulse NECK Supple and no bruits heard MENTAL STATUS: Alert, oriented x 1 normal speech, normal language, no hallucination or delusion CRANIAL NERVES: II - PERRLA, Visual souza intact to confrontation III,IV, - EOMs full, no afferent defect, no OG, no ptosis V - Normal facial sensation VII - Normal facial symmetry VIII - Intact hearing IX,X - Symmetrical palate XI - Symmetrical shoulder shrug XII - Midline tongue, no atrophy MOTOR FUNCTION: significant for good strength of grade 5/5 in bilateral proximal and distal muscle groups of both upper and lower extremities with normal bulk, normal tone and no involuntary movements, no tremor SENSORY FUNCTION: Normal touch, normal pin, normal vibration, normal proprioception CEREBELLAR FUNCTION: Intact fine motor control over upper limbs REFLEX FUNCTION: Symmetric, no perverted reflex, no Babinski sign STATION and GAIT Not tested Data: No results found. Lab Results: CBC: Recent Labs 05/14/19 0451 WBC 8.0 HGB 13.8 PLT 207 BMP: Recent Labs 05/14/19 0451 NA 137 K 4.1 CL 97* CO2 28 BUN 11 CREATININE 0.81 GLUCOSE 102* Lab Results Component Value Date CHOL 138 07/21/2017 LDLCHOLESTEROL 64 07/21/2017 HDL 57 07/21/2017 TRIG 84 07/21/2017 ALT 36 10/02/2015 AST 23 10/02/2015 TSH 1.20 07/21/2017 LABA1C 5.2 03/08/2014 [id number] 339 06/10/2015 Lab Results Component Value Date PHENYTOIN 12.3 05/14/2019 VALPROATE 73 03/04/2015 Assessment: 1. Refractory seizure disorder 2. MRDD Plan : 1. Continue LTME. Final assessment based on LTME 2. Will consider changing the dose of antiepileptic medication as needed. 3. Fall precaution. 4. Aspiration precautions. Associated attestation - Jake, Damon James MD - 05/15/2019 5:02 PM EDT I have discussed the care of patient including pertinent history and exam findings, with the Neurology resident. I have seen and examined the patient and the foley elements of all parts of the encounter have been performed by me. I agree with the assessment, plan and orders as documented by the fellow/resident, after I modified exam findings and plan of treatments, and the final version is my approved version of the assessment. Active problem Seizure disorder . MRDD . The condition is LTME one episode of confusion highly suspicious EEG seizure with left temporal chain mild to moderate diffuse slowing . Patient with MRDD with seizure disorder followed by Dr Lindsey . He is on 4 seizure medications keppra 2000 mg po bid , dilantin 300 mg po qhs , phenobarbital 40/60/60 and klonopin 1 mg po qhs still having seizures in sleep grandmal in type from 3 to 8 seizures per month admitted for LTME . Dilantin level 12.3 , Freedilantin level 1.1 , phenobarbital [address] normal On exam he is alert and oriented x1 normal language process . There are normal cranial nerves . There is normal cerebellar exam . There is normal sensation with symmetrical reflexes Impression Seizure disorder . MRDD Plan Continue LTME . Lower keppra 1000 mg po bid keeping dilantin 300 mg po qhs , phenobarbital 40/60/60 and klonopin 1 mg po qhs * eDborah Sanchez, ARIANNA - 05/15/2019 1:01 AM EDT Entered patient room to patient pulling off telemetry, LTME monitoring, and bipap. Patient very agitated and yelling. Patient throwing LTME equipment on floor and threatening to throw it at technical writer and editor. Contacted Dr. Nolasco with primary team to try to get something to calm patient down. Dr. Nolasco came to bedside to assess patient. Upon assessment, patient was found to be disoriented and responses were very delayed. Dr. Nolasco reviewed LTME monitoring and found that patient seemed to have a seizure,and could possibly be post ictal. Contract Officer, another RN, and Dr. Nolasco were able to calm patient and re orient. Patient now very drowsy and sleeping. Will continue to monitor. Deborah Sanchez RN * Michael Kenny MD - 05/14/2019 1:33 PM EDT NEUROLOGY INPATIENT PROGRESS NOTE 05/14/2019 Subjective: Pancho Mcpherson is a 59 y.o. male admitted on 05/13/2019 with Seizures (HCC) [R56.9] Briefly, this is a 59 y.o. male admitted on 05/13/2019 with MRDD with seizure disorder who follows outpatient with Dr. Lindsey. Currently undergoing evaluation for patient refractory seizures versus breakthrough seizures, on LTME monitoring. On 4 seizure medications currently, Keppra 2000 mg p.o. twice daily, Dilantin 300 mg p.o. nightly, [id number]+64.8+34.2, Klonopin 1 mg nightly.LTME performed till now suggestive of mild to moderate diffuse encephalopathy, no epileptiform discharges or EEG/clinical seizures. Recording for today(Day 2) in process. on current evaluation, afebrile,VSS, no acute events overnight. Able to respond to commands, AOX1. As per chart review, patient previously had subtherapeutic levels of antiseizure medications which could contribute to frequent seizures or could be the primary cause. No current facility-administered medications on file prior to encounter. Current Outpatient Medications on File Prior to Encounter Medication Sig Dispense Refill phenytoin (DILANTIN INFATABS) 50 MG tablet Take 1 tablet by mouth nightly (Patient taking differently: Take 50 mg by mouth nightly Indications: trying to clarify times from his pharmacy ) 90 tablet 3 levothyroxine (SYNTHROID) 50 MCG tablet Take 50 mcg by mouth every other day CPAP Machine MISC by Does not apply route QUEtiapine (SEROQUEL) 25 MG tablet Take 25 mg by mouth daily Indications: take one tablet at 3 PM acetaminophen (TYLENOL) 500 MG tablet Take 650 mg by mouth every 4 hours as needed for Pain vitamin D (CHOLECALCIFEROL) 1000 UNIT TABS tablet Take 1,000 Units by mouth once a week Indications: take one cap at 8 AM on Saturdays only clonazePAM (KLONOPIN) 1 MG tablet Take one tab nightly. 30 tablet 2 PHENobarbital (LUMINAL) 64.8 MG tablet Take 1 tablet by mouth 3 times daily for 90 days. (Patient taking differently: Take 64.8 mg by mouth 3 times daily. Takes 1 tab at 0800, 1600, and 2000) 90 tablet 2 Calcium Carbonate (CALCIUM 600 PO) Take 1 tablet by mouth 2 times daily levETIRAcetam (KEPPRA) 1000 MG tablet Take 2 tablets by mouth 2 times daily (Patient taking differently: Take 500 mg by mouth 2 times daily Per pharmacy record, takes 500 mg tabs orally takes 4 tabs at 0800, and 4 tabs at 2000) 120 tablet 2 phenytoin (DILANTIN) 100 MG ER capsule Take 3 capsules by mouth nightly 90 capsule 2 memantine (NAMENDA) 5 MG tablet Take 1 tablet by mouth 2 times daily (Patient taking differently: Take 5 mg by mouth 2 times daily Takes 1 tablet at 0800, and 1 tablet at 2000) 60 tablet 2 aluminum & magnesium hydroxide-simethicone (ALMACONE DOUBLE STRENGTH) 400-400-40 MG/5ML SUSP Take 5 mLs by mouth every 6 hours as needed LEVOTHYROXINE SODIUM PO Take 0.2 mcg by mouth daily Calcium & Magnesium Carbonates (MYLANTA PO) Take 30 mLs by mouth every 4 hours as needed promethazine (PHENERGAN) 25 MG tablet Take 25 mg by mouth every 6 hours as needed for Nausea amLODIPine (NORVASC) 10 MG tablet Take 10 mg by mouth daily QUEtiapine (SEROQUEL) 50 MG tablet Take 50 mg by mouth every morning Along with 25 mg tab to total 75 mg. QUEtiapine (SEROQUEL) 300 MG tablet Take 300 mg by mouth nightly cetirizine (ZYRTEC) 10 MG tablet Take 10 mg by mouth daily as needed for Allergies atorvastatin (LIPITOR) 10 MG tablet Take 10 mg by mouth daily folic acid (FOLVITE) 1 MG tablet Take 1 tablet by mouth daily 30 tablet 5 acetaminophen (TYLENOL) 325 MG tablet Take 650 mg by mouth every 4 hours as needed for Pain metoprolol (LOPRESSOR) 50 MG tablet Take 50 mg by mouth 2 times daily Takes 1 tab at 0800, and 1 tab at 2000 PARoxetine (PAXIL) 40 MG tablet Take 40 mg by mouth every morning. docusate sodium (COLACE) 100 MG capsule Take 100 mg by mouth daily. Allergies: Pancho Mcpherson has No Known Allergies. Past Medical History: Diagnosis Date Bipolar disorder with psychotic features (HCC) Dementia Dyslipidemia Hyperammonemia (HCC) Hypertension Hypothyroidism Mental retardation Occupational circumstances [facility] Onychomycosis Psychosis ([facility]LY [facility]) Seizures (FORM[facility]LY [facility]) Sleep apnea Past Surgical History: Procedure Laterality Date EYE MUSCLE SURGERY Right LEG SURGERY at age 19 had pin in left leg TOE AMPUTATION January 2013 left 5th toe Medications: influenza virus vaccine 0.5 mL Intramuscular Once amLODIPine 10 mg Oral Daily atorvastatin 10 mg Oral Daily clonazePAM 1 mg Oral Nightly docusate sodium 100 mg Oral Daily levothyroxine 50 mcg Oral Every Other Day memantine 5 mg Oral BID metoprolol tartrate 50 mg Oral BID PARoxetine 40 mg Oral QAM PHENobarbital 64.8 mg Oral TID phenytoin 50 mg Oral Nightly phenytoin 300 mg Oral Nightly QUEtiapine 25 mg Oral Daily QUEtiapine 300 mg Oral Nightly QUEtiapine 75 mg Oral QAM [START ON 05/18/2019] vitamin D 1,000 Units Oral Weekly sodium chloride flush 10 mL Intravenous 2 times per day enoxaparin 40 mg Subcutaneous Daily levothyroxine 200 mcg Oral Daily levETIRAcetam 2,000 mg Oral BID PRN Meds include: sodium chloride flush, magnesium hydroxide, LORazepam Objective: BP 117/85 Pulse 67 Temp 98.5 F (36.9 C) (Oral) Resp 15 Ht 5' 5 (1.651 m) Wt 208 lb 5.4 oz (94.5 kg) SpO2 92% BMI 34.67 kg/m Blood pressure range: Systolic (24hrs), Av , Min:116 , Max:146 ; Diastolic (24hrs), Av, Min:69, Max:94 NEUROLOGIC EXAMINATION GENERAL Appears comfortable and in no distress HEENT NC/ AT cardiovascular S1 and S2 heard; palpation of pulses: radial pulse NECK Supple and no bruits heard MENTAL STATUS: Alert, oriented x 1 normal speech, normal language, no hallucination or delusion CRANIAL NERVES: II - PERRLA, optic discs; clear; posterior segments Visual souza intact to confrontation III,IV, - EOMs full, no afferent defect, no OG, no ptosis V - Normal facial sensation VII - Normal facial symmetry VIII - Intact hearing IX,X - Symmetrical palate XI - Symmetrical shoulder shrug XII - Midline tongue, no atrophy MOTOR FUNCTION: significant for good strength of grade 5/5 in bilateral proximal and distal muscle groups of both upper and lower extremities with normal bulk, normal tone and no involuntary movements, no tremor SENSORY FUNCTION: Normal touch, normal pin, normal vibration, normal proprioception CEREBELLAR FUNCTION: Intact fine motor control over upper limbs REFLEX FUNCTION: Symmetric, no perverted reflex, no Babinski sign STATION and GAIT Not tested Data: No results found. Lab Results: CBC: Recent Labs 05/14/19 0451 WBC 8.0 HGB 13.8 PLT 207 BMP: Recent Labs 05/14/19 0451 NA 137 K 4.1 CL 97* CO2 28 BUN 11 CREATININE 0.81 GLUCOSE 102* Lab Results Component Value Date CHOL 138 07/21/2017 LDLCHOLESTEROL 64 07/21/2017 HDL 57 07/21/2017 TRIG 84 07/21/2017 ALT 36 10/02/2015 AST 23 10/02/2015 TSH 1.20 07/21/2017 LABA1C 5.2 03/08/2014 [id number] 339 06/10/2015 Lab Results Component Value Date PHENYTOIN 9.2 (L) 04/22/2019 VALPROATE 73 03/04/2015 Assessment: 1. Refractory seizure disorder 2. MRDD Plan : 1. Continue LTME. Final assessment based on LTME 2. Drug levels of antiepileptic medication: Free and total Dilantin level, phenobarbital level 3. Fall precaution. 4. Aspiration precautions. Associated attestation - Damon Bates MD - 05/14/2019 4:40 PM EDT I have discussed the care of patient including pertinent history and exam findings, with the Neurology resident. I have seen and examined the patient and the foley elements of all parts of the encounter have been performed by me. I agree with the assessment, plan and orders as documented by the fellow/resident, after I modified exam findings and plan of treatments, and the final version is my approved version of the assessment. Active problem Seizure disorder . MRDD . The condition is LTME mild to moderate diffuse slowing . Patient with MRDD with seizure disorder followed by Dr Lindsey . He is on 4 seizure medications keppra 2000 mg po bid , dilantin 300 mg po qhs , phenobarbital 40/60/60 and klonopin 1 mg po qhs stillhaving seizures in sleep grandmal in type from 3 to 8 seizures per month admitted for LTME . Head CT normal On exam he is alert and oriented x1 normal language process . There are normal cranial nerves . There is normal cerebellar exam . There is normal sensation with symmetrical reflexes Impression Seizure disorder . MRDD Plan Continue LTME . Free and total dilantin level , phenobarbital level * Ariadna Chung RCP - 05/14/2019 2:41 AM EDT NON INVASIVE VENTILATION PROVIDE OPTIMAL VENTILATION/ACCEPTABLE SP02 IMPLEMENT NON INVASIVE VENTILATION PROTOCOL ASSESSMENT SKIN INTEGRITY PATIENT EDUCATION NEEDED BIPAP NEEDED * Gabby Pulido RN - 05/13/2019 10:30 AM EDT Contract Officer gets med list from Laya who is in room, who runs the intermediate that patient reside. Contract Officer verifies with med list that is already listed in patients chart. Contract Officer noted that this home med list is updated/reviewed from patients last visit 2 weeks ago 04/22/[address] Lindsey 11:31 AM. Contract Officer also calls patients pharmacy for med list verification. Copy from patients pharmacy, and intermediate placed in his chart. Contract Officer informs neurology team Dr Vick of above. Contract Officer not sure of meaning of nursing misc. order written at [address] Vick pharmacy to verify home medication doses prior to admission. Pharmacy can not verify something on a patient until they are admitted.; plus technical writer and editor had already spent over an hour getting verification (see above). * Gabby Pulido RN - 05/13/2019 10:15 AM EDT Pt arrived to floor ambulatory, direct admit, and was transfered to bed. Vitals taken. Admission and assessment complete. No distress noted. See doc flowsheet and admission navigator for details.. Call light within reach, and pt educated on its use. Bed in lowest position, and locked. Side rails upx 2. LTME tech notified of admit. Neurology notified of admit.Bed alarm on, telesitter obtained, bedfellows placed.Denied further questions or needs at this time. Will continue to monitor. * Gabby Pulido RN - 05/13/2019 10:15 AM EDT Patient, Sister Sherly, and Laya(who runs [facility]) all state that he took all his morning meds today before he came to hospital. documented in this encounter Discharge Instructions * Attachments The following attachments cannot be sent through Care Everywhere. * Altered Mental Status (Taiwanese) * Head Injury: Closed: General Info (Taiwanese) documented in this encounter* Instructions* Laya Marrero, DO - 06/18/2020 Ice pack to tolerance to affected area tonight. Use tylenol if needed for pain. Staple removal 1 week--follow up with family physician. * Attachments The following attachments cannot be sent through Care Everywhere. * Lacerations: [place] (Taiwanese) documented in this encounter* Attachments The following attachments cannot be sent through Care Everywhere. * Contusion (Taiwanese) documented in this encounter* Attachments The following attachments cannot be sent through Care Everywhere. * Contusion (Tai[place]ese) documented in this encounter* Instructions* Lyaa Mcleod, - 06/23/2020 Follow up with your PCP in the next 5 days. Return to the ER if you develop worsening symptoms, fevers, numbness, weakness, slurred speech, unusual symptoms for your headaches or if you have any other concerns. * Attachments The following attachments cannot be sent through Care Everywhere. * Abrasions (Taiwanese) * Head Injury (Taiwanese) documented in this encounter* Discharge Instr - Activity* Magalis Drummond RN - 08/13/2020 12:27 PM EST Activity as tolerated * Discharge Instr - Diet* Magalis Drummond RN - 08/13/2020 12:27 PM EST ? Good nutrition is important when healing from an illness, injury, or surgery. Follow any nutrition recommendations given to you during your hospital stay. ? If you were given an oral nutrition supplement while in the hospital, continue to take this supplement at home. You can take it with meals, in-between meals, and/or before bedtime. These supplements can be purchased at most local grocery stores, pharmacies, and [employer]. ? If you have any questions about your diet or nutrition, call the hospital and ask for the dietitian. * Discharge Instr - SUNITA* AllaOlga - 08/13/2020 12:27 PM EST Continuity of Care Form Patient Name: Pancho Mcpherson : 1960 Admit date: 07/22/2020 Discharge date: Code Status Order: DNR-CCA Advance Directives: Advance Care Flowsheet Documentation Date/Time Healthcare Directive Type of Healthcare Directive Copy in Chart Healthcare Agent Appointed Healthcare Agent's Name Healthcare Agent's Phone Number 07/24/20 [phone] Yes, patient has an advance directive for healthcare treatment Admitting Physician: Laya Rodriges MD PCP: MUNA Bingham CNP Discharging Nurse: Discharging Hospital Unit/Room#: 119/119-02 Discharging Unit Phone Number: Emergency Contact: Extended Emergency Contact Information Primary Emergency Contact: KySherly/Sister Address: [address] [place] [address] Mobile Relation: Legal Guardian Hearing or visual needs: None Other needs: None Preferred language: Taiwanese Hand Collator needed? No Secondary Emergency Contact: Santhosh Mcpherson [facility] Relation: Brother/Sister Hearing or visual needs: None Other needs: None Preferred language: [place]ese Hand Collator needed? No Past Surgical History: Past Surgical History: Procedure Laterality Date EYE MUSCLE SURGERY Right HEMICOLECTOMY N/A 07/22/2020 Laparotomy, Robotic ASsisted small bowel resection, open right hemicolectomy performed by Laya Rodriges MD at [facility] OR LEG SURGERY at age 19 had pin in left leg ORBITAL FRACTURE SURGERY Left TOE AMPUTATION January 2013 left 5th toe Immunization History: Immunization History Administered Date(s) Administered Influenza, Quadv, IM, PF (6 mo and older Fluzone, Flulaval, Fluarix, and 3 yrs and older Afluria) 05/14/2019, 05/11/2020 Tdap (Boostrix, Adacel) 10/29/2015 Active Problems: Patient Active Problem List Diagnosis Code Intractable epilepsy (HCC) G40.919 Headache R51.9 Mental retardation F79 Hypothyroidism E03.9 Hypertension I10 Generalized convulsive epilepsy with intractable epilepsy (FORMERLY [facility]) G40.319 Insomnia with sleep apnea G47.00, G47.30 Sleep apnea G47.30 Abnormal involuntary movement R25.9 Adverse effects of medication T50.905A 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 (FORMERLY [facility]) F02.80 Encounter for counseling Z71.9 Hyperammonemia ([facility]) E72.20 Convulsions ([facility]) R56.9 Recurrent seizures (HCC) G40.909 Recurrent falls while walking R29.6 Dementia without behavioral disturbance (HCC) F03.90 Cellulitis of left upper extremity L03.114 Seizure disorder (HCC) G40.909 Intractable epilepsy (HCC) G40.919 Developmental delay R62.50 Dementia associated with other underlying disease without behavioral disturbance (HCC) F02.80 Refractory epilepsy (HCC) G40.919 Epileptic seizure (HCC) G40.909 Seizures (HCC) R56.9 Cognitive impairment R41.89 Spinal stenosis of cervical region M48.02 Schizophrenia (HCC) F20.9 Psychosis (HCC) F29 Onychomycosis B35.1 Occupational circumstances Z56.9 Mood disorder (HCC) F39 Dementia (HCC) F03.90 Dyslipidemia E78.5 Head injury S09.90XA Orbital fracture (HCC) S02.85XA Anemia D64.9 Tear of urethra S37.33XA Isolation/Infection: Isolation No Isolation Patient Infection Status Infection Onset Added Last Indicated Last Indicated By Review Planned Expiration Resolved Resolved By None active Resolved COVID-19 Rule Out 12/09/20 12/09/20 12/09/20 COVID-19 Rapid (ID NOW) (Ordered) 07/22/20 Rule-Out Test Resulted MRSA 06/15/15 06/15/15 Evelyn Byrd RN 07/28/20 Rebeka David RN Blood 06/12/15 Nurse Assessment: Last Vital Signs: BP (!) 142/75 Pulse 78 Temp 97.2 F (36.2 C) (Oral) Resp 16 Ht 5' 8 (1.727 m) Wt 187 lb 2 oz (84.9 kg) SpO2 97% BMI 28.45 kg/m Last documented pain score (0-10 scale): Pain Level: 0 Last Weight: Wt Readings from Last 1 Encounters: 08/13/20 187 lb 2 oz (84.9 kg) Mental Status: {IP PT MENTAL STATUS:} IV Access: { SUNITA IV ACCESS:763576121} Nursing Mobility/ADLs: Walking {CHP DME ADLs:640014795} Transfer {CHP DME ADLs:741545325} Bathing {CHP DME ADLs:786943947} Dressing {CHP DME ADLs:964898917} Toileting {CHP DME ADLs:248267742} Feeding {CHP DME ADLs:793868073} Logistics Management Specialist {CHP DME ADLs:882522468} Med Delivery { SUNITA MED Delivery:579503203} Wound Care Documentation and Therapy: Wound 06/14/15 Other (Comment) Wrist Dorsal Redness, Warmth, swelling; half dollar size (Active) Number of days: 1886 Elimination: Continence: Bowel: {YES / NO:} Bladder: {YES / NO:} Urinary Catheter: {Urinary Catheter:840276381} Colostomy/Ileostomy/Ileal Conduit: {YES / NO:} Date of Last BM: Intake/Output Summary (Last 24 hours) at 08/13/2020 1227 Last data filed at 08/13/2020 1140 Gross per 24 hour Intake 1920 ml Output 1351 ml Net 569 ml I/O last 3 completed shifts: In: 2360 [P.O.:2360] Out: 1351 [Urine:1350; Stool:1] Safety Concerns: { SUNITA Safety Concerns:432821331} Impairments/Disabilities: { SUNITA Impairments/Disabilities:595753110} Nutrition Therapy: Current Nutrition Therapy: { SUNITA Diet List:622094909} Routes of Feeding: {[facility] DME Other Feedings:255585475} Liquids: {[facility] liquid thickness:46057} Daily Fluid Restriction: {CHP DME Yes amt example:743653023} Last Modified Barium Swallow with Video (Video Swallowing Test): {Done Not Done Date:} Treatments at the Time of Hospital Discharge: Respiratory Treatments: Oxygen Therapy: {Therapy; copd oxygen:35552} Ventilator: {[facility] Vent List:094292235} Rehab Therapies: {THERAPEUTIC INTERVENTION:9079640696} Weight Bearing Status/Restrictions: {[facility] Weight Bearin} Other Medical Equipment (for information only, NOT a DME order): {EQUIPMENT:322745356} Other Treatments: Patient's personal belongings (please select all that are sent with patient): {[facility] D[facility] Belongings:215798667} RN SIGNATURE: {Esignature:001585939} CASE MANAGEMENT/SOCIAL WORK SECTION Inpatient Status Date: 07/22/2020 Readmission Risk Assessment Score: Readmission Risk Risk of Unplanned Readmission: 31 Discharging to Facility/ Agency Name: [address] Address: [address] [place] [address] Dialysis Facility (if applicable) Name: Address: Dialysis Schedule: Phone: Fax: Clinic Assistant/Forgeman Helper signature: PHYSICIAN SECTION Prognosis: {Prognosis:0604893390} Condition at Discharge: { Patient Condition:708846702} Rehab Potential (if transferring to Rehab): {Prognosis:6741342408} Recommended Labs or Other Treatments After Discharge: Physician Certification: I certify the above information and transfer of Pancho Mcpherson is necessaryfor the continuing treatment of the diagnosis listed and that he requires {Admit to Appropriate Level of Care:28783} for {GREATER/LESS:805649937} 30 days. Update Admission H&P: {[facility] DME Changes in HandP:246069935} PHYSICIAN SIGNATURE: {Esignature:851357148} * Additional Instructions* Laya Rodriges MD - 08/13/2020 Activity as tolerated. Pancho may bathe or shower. Keep wound covered at all times except at the time of bath or shower. Normal saline wet-to-dry dressing changes on a daily basis. documented in this encounter* Discharge Instr - Activity* John Paul Dorado RN - 05/17/2019 6:01 PM EDT Preventing Falls: Care Instructions Your Care Instructions Getting around your home safely can be a challenge if you have injuries or health problems that make it easy for you to fall. Loose rugs and furniture in walkways are among the dangers for many olderpeople who have problems walking or who have poor eyesight. People who have conditions such as arthritis, osteoporosis, or dementia also have to be careful not to fall. You can make your home safer with a few simple measures. Follow-up care is a foley part of your treatment and safety. Be sure to make and go to all appointments, and call your doctor if you are having problems. It's also a good idea to know your test resultsand keep a list of the medicines you take. How can you care for yourself at home? Taking care of yourself You may get dizzy if you do not drink enough water. To prevent dehydration, drink plenty of fluids,enough so that your urine is light yellow or clear like water. Choose water and other caffeine-freeclear liquids. If you have kidney, heart, or liver disease and have to limit fluids, talk with yourdoctor before you increase the amount of fluids you drink. Exercise regularly to improve your strength, muscle tone, and balance. Walk if you can. Swimming may be a good choice if you cannot walk easily. Have your vision and hearing checked each year or any time you notice a change. If you have troubleseeing and hearing, you might not be able to avoid objects and could lose your balance. Know the side effects of the medicines you take. Ask your doctor or pharmacist whether the medicines you take can affect your balance. Sleeping pills or sedatives can affect your balance. Limit the amount of alcohol you drink. Alcohol can impair your balance and other senses. Ask your doctor whether calluses or corns on your feet need to be removed. If you wear loose-fitting shoes because of calluses or corns, you can lose your balance and fall. Talk to your doctor if you have numbness in your feet. Preventing falls at home Remove raised doorway thresholds, throw rugs, and clutter. Repair loose carpet or raised areas in the floor. Move furniture and electrical cords to keep them out of walking paths. Use nonskid floor wax, and wipe up spills right away, especially on ceramic tile floors. If you use a walker or cane, put rubber tips on it. If you use crutches, clean the bottoms of them regularly with an abrasive pad, such as steel wool. Keep your house well lit, especially stairways, porches, and outside walkways. Use night-lights in areas such as hallways and bathrooms. Add extra light switches or use remote switches (such as switches that go on or off when you clap your hands) to make it easier to turn lights on if you have to get up during the night. Install sturdy handrails on stairways. Move items in your cabinets so that the things you use a lot are on the lower shelves (about waist level). Keep a cordless phone and a flashlight with new batteries by your bed. If possible, put a phone in each of the main rooms of your house, or carry a cell phone in case you fall and cannot reach a phone. Or, you can wear a device around your neck or wrist. You push a button that sends a signal for help. Wear low-heeled shoes that fit well and give your feet good support. Use footwear with nonskid soles. Check the heels and soles of your shoes for wear. Repair or replace worn heels or soles. Do not wear socks without shoes on wood floors. Walk on the grass when the sidewalks are slippery. If you live in an area that gets snow and ice inthe winter, sprinkle salt on slippery steps and sidewalks. Preventing falls in the bath Install grab bars and nonskid mats inside and outside your shower or tub and near the toilet and sinks. Use shower chairs and bath benches. Use a hand-held shower head that will allow you to sit while showering. Get into a tub or shower by putting the weaker leg in first. Get out of a tub or shower with your strong side first. Repair loose toilet seats and consider installing a raised toilet seat to make getting on and off the toilet easier. Keep your bathroom door unlocked while you are in the shower. Where can you learn more? Go to https://[email or web address].Groupon.org and sign in to your Fitness Interactive Experience account. Enter G117 in the Search Health Information box to learn more about Preventing Falls: Care Instructions. If you do not have an account, please click on the Sign Up Now link. Current as of: June 20, 2018 Content Version: [id number] [employer]. Care instructions adapted under license by [employer]. If youhave questions about a medical condition or this instruction, always ask your healthcare professional. [employer] disclaims any warranty or liability for your use of this information. * Discharge Instr - Diet* John Paul Dorado RN - 05/17/2019 6:01 PM EDT ? Good nutrition is important when healing from an illness, injury, or surgery. Follow any nutrition recommendations given to you during your hospital stay. ? If you were given an oral nutrition supplement while in the hospital, continue to take this supplement at home. You can take it with meals, in-between meals, and/or before bedtime. These supplements can be purchased at most local grocery stores, pharmacies, and chain super-stores. ? If you have any questions about your diet or nutrition, call the hospital and ask for the dietitian. * Additional Instructions* Michael Kenny MD - 05/17/[address] Lindsey in 4 weeks time * Attachments The following attachments cannot be sent through Care Everywhere. * Epilepsy (Tai[place]ese) documented in this encounter Hospital Course * Laya Rodriges MD - 08/13/2020 11:47 AM EST Discharge Summary Date of admission: July 22, 2020 Date of discharge: August 13, 2020 Admitting diagnosis: Perforated viscus Discharge diagnoses: Small bowel perforation with peritonitis Secondary diagnoses: Postoperative anemia, seizure disorder, mental retardation, hypertension, sleep apnea, wound infection, urethral injury and postoperative wound infection Surgery: Robotic assisted ileocecectomy Hospital summary: Patient was admitted through the emergency room on 07/22. Presented there with abdominal pain and vomiting. A CT scan revealed evidence of pneumoperitoneum. Patient was taken to surgery. He underwent robotic assisted ileocecectomy. The wound was left open. [facility] Patient initially did well but became confused and combative the evening of postoperative day 1. He had a fall which resulted in traumatic dislodgment of his Pandey catheter. He developed a large bladder hematoma and apparent disruption of his urethra. The nursing staff had difficulty replacing the Pandey. A consultation was obtained from Dr. Sandoval who replaced the Pandey. He also or dered a CT of the abdomen and pelvis at that time which demonstrated the bladder hematoma and apparent disruption of the urethra. Patient was placed back in the intensive care unit after that initial episode and remained in the intensive care unit for the remainder of his hospital stay. It was necessary to keep him heavily sedated for much of his hospital stay. We needed to keep the patient in mittens to prevent him from pulling out his Pandey catheter and central venous line. The patient did remain on intravenous antibiotics for the first 2 weeks of his hospital stay. On the weekend prior to discharge we did remove the patient's Pandey catheter after he had pulled out his central venous line. He had been on parenteral nutrition for the week prior to him pulling outhis central line. Intravenous antibiotics were discontinued after Pandey catheter was removed. He did not have any difficulties urinating after the catheter was removed. Patient did develop perioperative anemia both from intraoperative blood loss and the large bladder hematoma. I believe he required transfusion of 3 or 4 units of packed red blood cells. Despite the fact that the wound was left open and my initial intention was to consider delayed primary closure, the patient contaminated the wound on several occasions and he did develop a significant wound infection. This was treated with Santyl as well as Dakin's dressing changes. For about a week prior to his discharge we did utilize a wound VAC but as his sedation was withdrawn it became clear he would not leave this alone we will switch back to normal saline wet-to-dry dressing changes. Patient is discharged today and is to resume all prehospital medications as before. Dr. Esquivel hasadded potassium supplement to his discharge medications. He is also provided a prescription for as needed Percocets. Patient will be replaced in a intermediate with visiting nursing service arranged. documented in this encounter Medications Administered Section Active Administered Medications - up to 3 most recent administrations Medication Order MAR Action Action Date Dose Rate Site cyclopentolate 1 % 1 Drop (CYCLOGYL) 1 Drop, BOTH EYES, DIRECTED, Starting on Mon05/31/22 at 1000, Until Mon05/31/22 at 215, Administer for dilation Given 05/31/2022 10:00 AM EDT 1 Drop PHENYLephrine 2.5 % 1 Drop (AK-DILATE, DEWEY-SYNEPHRINE) 1 Drop, BOTH EYES, DIRECTED, Starting on Mon05/31/22 at 1000, Until Mon05/31/22 at 215, Administer for dilation PROTECT FROM LIGHT Given 05/31/2022 10:00 AM EDT 1 Drop Active Administered Medications - up to 3 most recent administrations Medication Order MAR Action Action Date Dose Rate Site tropicamide 0.5 % 1 Drop (MYDRIACYL) 1 Drop, BOTH EYES, DIRECTED, Starting on Mon06/07/23 at 1030, Until Mon06/07/23 at 2229, Administer for dilation Given 06/07/2023 10:30 AM EDT 1 Drop Chief Complaint Establishing with Recurrent UTI and UrgencyNPV in office today for constipation, + occult blood, and EUGENE. [facility] but incidental finding of possible abscess on gallbladder. Caregivers state he on occasional will not want to eat due to not having a BM, occasional constipation. Patient will some bright red rectal bleeding with bowel movements. No recent colonoscopy, previous PCP wanted a colonoscopy but sister mentioned a nuclear medicine GI bleed study.6 month w/ psa Additional Source Comments (unrecognized sect ion and content) No Status Records FoundNo Status Records FoundNo Status Records FoundNo Status Records FoundNo Status Records FoundNo Status Records FoundNo Status Records FoundNo Status Records FoundNo Status Records FoundNo Status Records FoundNo Status Records FoundNo Status Records FoundNo Status Records FoundNo Status Records FoundNo Status Records FoundNo Status Records FoundNo Status Records FoundNo Status Records FoundNo Status Records FoundNo Status Records FoundNo Status Records Found INFORMATION SOURCE (unrecogn ized section and content) DATE CREATED AUTHOR 02/06/[address] [facility] DATE CREATED AUTHOR AUTHOR'S ORGANIZ ATION 11/24/2018 [facility] DATE CREATED AUTHOR AUTHOR'S ORGANIZ ATION 05/21/2019 [facility] DATE CREATED AUTHOR AUTHOR'S ORGANIZ ATION 07/27/2020 [facility] DATE CREATED AUTHOR AUTHOR'S ORGANIZ ATION 08/19/2020 [facility] DATE CREATED AUTHOR AUTHOR'S ORGANIZ ATION 06/09/2021 [facility] DATE CREATED AUTHOR AUTHOR'S ORGANIZ ATION 06/12/2021 [facility] DATE CREATED AUTHOR AUTHOR'S ORGANIZ ATION 01/17/2022 [facility] DATE CREATED AUTHOR AUTHOR'S ORGANIZ ATION 02/09/2023 [facility] DATE CREATED AUTHOR AUTHOR'S ORGANIZ ATION 02/15/2023 [facility] DATE CREATED AUTHOR AUTHOR'S ORGANIZ ATION 03/02/2023 [facility] DATE CREATED AUTHOR AUTHOR'S ORGANIZ ATION 02/01/2024 [facility] DATE CREATED AUTHOR AUTHOR'S ORGANIZ ATION 03/05/2024 [facility] DATE CREATED AUTHOR AUTHOR'S ORGANIZ ATION 05/18/2024 [facility] DATE CREATED AUTHOR AUTHOR'S ORGANIZ ATION 07/13/2024 [facility] DATE CREATED AUTHOR AUTHOR'S ORGANIZ ATION 11/06/2024 [facility] DATE CREATED AUTHOR AUTHOR'S ORGANIZ ATION 11/06/2024 [facility] DATE CREATED AUTHOR AUTHOR'S ORGANIZ ATION 12/20/2024 [facility] DATE CREATED AUTHOR AUTHOR'S ORGANIZ ATION 04/23/2025 [facility] DATE CREATED AUTHOR AUTHOR'S ORGANIZ ATION 06/09/2025 [facility] DATE CREATED AUTHOR AUTHOR'S ORGANIZ ATION 06/26/2025 [facility] Reason for Visit (unrecogniz ed section and content) Reason Comments Neck Pain Status Reason Specialty Diagnoses / Procedures Referred By Contact Referred To Contact Closed Neurosurgery Diagnoses Spinal stenosis in cervical region Deborah De La Vega, OPERATIONS AND MAINTENANCE SPECIALIST [address] [place] [address] Moi Flores MD [address] [place] [address] Reason Comments Fall Seizures Reason Comments Fall Head Laceration Reason Comments Joint Swelling Reason Comments Seizures Yesterday Head Injury Reason Comments Abdominal Pain Emesis Nasal Congestion Status Reason Specialty Diagnoses / Procedures Referre d By Contact Referred To Contact Diagnoses Perforated viscus Laya Rodriges MD [address] [place] [address] [facility] Phone: [phone] Reason Comments Wound Check abdominal wound Status Reason Specialty Diagnoses / Procedures Referre d By Contact Referred To Contact Diagnoses Seizures (HCC) Seizure Damon Bates MD [address], [address] [place] [address] [facility] Reason Comments Follow-up Reason Comments Follow-up Reason Comments Yearly Exam Reason Comments Follow-up Neck pain and cervic al discectomy C3/C4 and C4/C5 Reason Comments New Patient Specialty Diagnoses / Procedures Referred By Contac t Referred To Contact Neurology Diagnoses Seizure disorder Nikki Hare MD [address] [facility] [address] [place] [address] Referral ID Status Reason Start Date Expiration Date V isits Requested Visits Authorized [id number] New Request 01/31/2023 02/25/2024 1 1 Specialty Diagnoses / Procedures Referred By Contac t Referred To Contact Diagnoses Seizure disorder Procedures EEG, ROUTINE Carrie García MD [address] [place] [address] Referral ID Status Reason Start Date Expiration Date V isits Requested Visits Authorized [id number] New Request 04/05/2023 04/29/2024 1 1 Reason Comments New Patient 63 yr male here for consult Specialty Diagnoses / Procedures Referred By Jovany friedman Referred To Contact Neurologic Surgery Diagnoses Focal epilepsy Carrie García MD [address] [place] [address] Referral ID Status Reason Start Date Expiration Date V isits Requested Visits Authorized [id number] New Request 04/20/2023 05/14/2024 1 1 Reason Comments Cataract Evaluation Reason Comments Establish Care THRILL PERFORMER/EST CARE Reason Comments Pre-operative Consultation Specialty Diagnoses / Procedures Referred By Jovany friedman Referred To Contact PreOp Diagnoses Seizures Ulises Li MD [address] [place] [phone] Referral ID Status Reason Start Date Expiration Date V isits Requested Visits Authorized [id number] New Request 2023 06/02/2024 1 1 Specialty Diagnoses / Procedures Referred By Jovany friedman Referred To Contact Diagnoses Seizures Seizures [R56.9] Procedures NE OPEN IMPLANTATION CRANIAL NERVE JASON & PULSE GEN CHG FLUOROSCOPIC GUIDANCE NEEDLE PLACEMENT ADD ON INSERTION NEUROSTIMULATOR ELECTRODE & GENERATOR CRANIAL NERVE (EG VAGUS) OPEN GUIDANCE FLUOROSCOPIC NEEDLE PLACEMENT ADD-ON PX Ulises Li MD [address] [place] [phone] [facility] [address] [place] [address] Referral ID Status Reason Start Date Expiration Date Visits Re quested Visits Authorized [id number] 1 1 Reason Comments Cataract Evaluation 6 month check Reason Comments Cerumen Impaction Ear lavage Patient c onstantly picking at his earsMild drainage Nail Problem Patients family made concern about patient toe nails; may need to see podiatry Reason Comments 1 year follow up Reason Comments Nail Care Patient presents for bilateral nail fungus, mild swelling bilateral calves Reason Comments Follow-up Patient presents for bilateral fungal care, go over doppler Reason Comments Seizures Patient to ED from [facility] facility d/t reported seizure lasting 10 mins. Patient has hx of seizures, was given 5mg (1/2 spray) Diazepam intranasally, bringing patient out of seizure. Patient not seizing on arrival, in postictal state, alert and oriented to self at this time. Seizure pads applied to bed rails. Reason Comments ER Follow-up Reason Comments Annual Exam Group physical Specialty Diagnoses / Procedures Referred By Jovany t Referred To Contact Primary Care Procedures Follow Up In Primary Care - Established Anthony Munguia, [address] [facility] [place] [address] Phone: tel: fax: Referral ID Status Reason Start Date Expiration Date V isits Requested Visits Authorized [id number] Authorized 06/21/2023 06/20/2024 1 1 Reason Onset Date Comments Insurance 07/18/2024 Levetiracetam Reason Comments Follow-up Reason Comments 2 MONTH FOLLOW UP Reason Comments Nail Care Reason Comments Surgical Follow-up Reason Comments Establish Care Specialty Diagnoses / Procedures Referred By Jovany friedman Referred To Contact Diagnoses S/P cervical spinal fusion Weakness of both lower extremities Procedures MRI SPINE CERVICAL WITHOUT CONTRAST CHG MRI SPINAL CANAL CERVICAL W/O CONTRAST MATRL Celina Esquivel PA-C [address] [place] [address] Referral ID Status Reason Start Date Expiration Date Visits Re quested Visits Authorized [id number] Closed 08/28/2024 09/22/2025 1 1 Reason Comments Nail Care Nail Care Reason Comments Follow-up Robotic cholecystect neil with lysis of adhesion Reason Onset Date Comments Home BP Logs 11/13/2024 Reason Onset Date Comments [employer] 11/19/2024 Reason Onset Date Comments [facility] [place] 11/19/2024 Reason Onset Date Comments Medication Refill 11/20/2024 Reason Onset Date Comments Medication Refill 12/17/2024 Reason Comments Yearly follow up with PSA Reason Onset Date Comments Medication Refill 05/05/2025 Reason Comments Nail Care nail care/DLS 12/17/24 -primary care Reason Onset Date Comments Medication Refill 05/13/2025 Reason Comments Annual Exam Reason Onset Date Comments Medication Refill 06/18/2025 Reason Comments Colonoscopy Specialty Diagnoses / Procedures Referred By Jovany friedman Referred To Contact General Surgery Diagnoses Encounter for colorectal cancer screening Mahamed Neri, DO [address] [place] [address] Phone: tel: fax: Marleni Gold MD [address] [facility] [address] [place] [address] Phone: tel: fax: Referral ID Status Reason Start Date Expiration Date V isits Requested Visits Authorized [id number] Closed Specialty Services Required/Casandra ent's Best Interest 06/12/2025 06/12/2026 1 1 Tamara Osuna RN - 03/24/2020 1:54 PM EDTAbby Mcpherson RN - 03/24/2020 1:54 PM EDT ED Notes (unrecognized secti on and content) EMS states, He was at [facility] and slipped out of his wheelchair. They report he has a history of seizures. Bed: 10 Expected date: Expected time: Means of arrival: Comments: EMS documented in this encounter Ordered Prescriptions (unrec ognized section and content) Prescription Sig Dispensed Refills Start Date End Da te levothyroxine (SYNTHROID) 50 MCG tabletIndications:Hypoth yroidism, unspecified type Take 1 tablet by mouth every other day 30 tablet 0 08/13/2020 potassium chloride (KLOR-CON M) 20 MEQ extended release tablet Take 1 tablet by mouth daily DOCU-DOSE 30 tablet 0 08/13/2020 sennosides-docusate sodium (SENOKOT-S) 8.6-50 MG tablet Take 1 tablet by mouth 2 times daily DOCU-DOSE 60 tablet 0 08/13/2020 metoprolol tartrate (LOPRESSOR) 25 MG tablet Take 0.5 tablets by mouth 2 times daily DOCU-DOSE 30 tablet 0 08/13/2020 oxyCODONE-acetaminophen (PERCOCET) 5-325 MG per tabletIndications:Bowel perforation (HCC),Perforated viscus Take 1 tablet by mouth every 8 hours as needed (moderate to severe pain) for up to 7 days. DOCU-DOSE 21 tablet 0 08/13/2020 08/20/2020 Care Teams (unrecognized sec tion and content) 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 Relationship Specialty Start Date End Date Deborah De La Vega CNP [address], [place] [phone] PCP - General Certified Nurse Practitioner 05/24/21 Chemo Chavez MD [address] [place], [place] [phone] PCP - Referring 1 Internal Medicine 05/24/21 Carmelo Lindsey MD [address], [address] [place] [id number] PCP - Referring 2 Neurology 05/24/21 Jair Jacob DO [address] [place] [address] Family Medicine 05/24/21 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 Relationship Specialty Start Date End Date Deborah De La Vega CNP PCP - General Certified Nurse Practitioner 05/24/21 Chemo Chavez MD PCP - Referring 1 Internal Medicine 05/24/21 Carmelo Lindsey MD PCP - Referring 2 Neurology 05/24/21 Jair Jacob DO [address] [place] [address] Family Medicine 05/24/21 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 Relationship Specialty Start Date End Date Deborah De La Vega CNP PCP - General Certified Nurse Practitioner 05/24/21 Chemo Chavez MD PCP - Referring 1 Internal Medicine 05/24/21 Carmelo Lindsey MD PCP - Referring 2 Neurology 05/24/21 Jair Jacob, DO [address] [place] [address] Family Medicine 05/24/21 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 Relationship Specialty Start Date [place] [address] PCP - General Family Medicine 05/16/22 Deborah De La Vega MD [address] [place], [place] [phone] Family Medicine 09/08/15 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 Relationship Specialty Start Date End Date Deborah De La Vega CNP PCP - General Certified Nurse Practitioner 05/24/21 Chemo Chavez MD PCP - Referring 1 Internal Medicine 05/24/21 Carmelo Lindsey MD PCP - Referring 2 Neurology 05/24/21 Jair Jacob, DO [address] [place] [address] Family Medicine 05/24/21 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 Relationship Specialty Start Date End Date Deborah De La Vega CNP PCP - General Certified Nurse Practitioner 05/24/21 Chemo Chavez MD PCP - Referring 1 Internal Medicine 05/24/21 Carmelo Lindsey MD PCP - Referring 2 Neurology 05/24/21 Jair Jacob DO [address] [place] [address] Family Medicine 05/24/21 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 Relationship Specialty Start Date End Date Chemo Chavez MD [place] [address] PCP - Referring 1 Internal Medicine 05/24/21 Carmelo Lindsey MD [place] [address] PCP - Referring 2 Neurology 05/24/21 Qing Martin MD [address] [place] [address] PCP - General Family Medicine 04/05/23 Jair Jacob DO [place] [address] Family Medicine 05/24/21 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 Relationship Specialty Start Date End Date Chemo Chavez MD [place] [address] PCP - Referring 1 Internal Medicine 05/24/21 Carmelo Lindsey MD [place] [address] PCP - Referring 2 Neurology 05/24/21 Qing Martin MD [address] [place] [address] PCP - General Family Medicine 04/05/23 Jair Jacob DO [address] [place] [address] Family Medicine 05/24/21 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 Relationship Specialty Start Date End Date Chemo Chavez MD [employer] [place] [address] PCP - Referring 1 Internal Medicine 05/24/21 Carmelo Lindsey MD [employer] [place] [address] PCP - Referring 2 Neurology 05/24/21 Qing Martin MD [address] [place] [address] PCP - General Family Medicine 04/05/23 Jair Jacob DO [employer] [place] [address] Family Medicine 05/24/21 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 Relationship Specialty Start Date End Date Anthony Munguia DO [address] [place] [address] [place] [address] PCP - General Internal Medicine 06/07/23 Deborah De La Vega, OPERATIONS AND MAINTENANCE SPECIALIST [address] [place] [address] Family Medicine 09/08/15 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 Relationship Specialty Start Date End Date Anthony Munguia DO [address] [facility] [place] [address] PCP - General Internal Medicine 05/25/23 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 Relationship Specialty Start Date End Date LydiaAnthony jeanDO [address] [facility] [place] [address] PCP - General Internal Medicine 05/25/23 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 Relationship Specialty Start Date End Date Chemo Chavez MD [address] [place] [address] PCP - Referring 1 Internal Medicine 05/24/21 Carmelo Lindsey MD [address] [place] [address] PCP - Referring 2 Neurology 05/24/21 Anthony Munguia, [address] [facility] [address] PCP - General Internal Medicine 08/16/23 Jair Jacob, DO [address] [place] [address] Family Medicine 05/24/21 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 Relationship Specialty Start Date End Date Chemo Chavez MD [address] [place] [address] PCP - Referring 1 Internal Medicine 05/24/21 Carmelo Lindsey MD [address] [place] [address] PCP - Referring 2 Neurology 05/24/21 Anthony Munguia DO [address] [facility] [address] PCP - General Internal Medicine 08/16/23 Jair Jacob DO [address] [place] [address] Family Medicine 05/24/21 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 Relationship Specialty Start Date End Date Chemo Chavez MD [address] [place] [address] PCP - Referring 1 Internal Medicine 05/24/21 Carmelo Lindsey MD [address] [place] [address] PCP - Referring 2 Neurology 05/24/21 Anthony Munguia DO [address] [facility] [place] [address] PCP - General Internal Medicine 08/16/23 Jair Jacob DO [address] [place] [address] Family Medicine 05/24/21 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 Relationship Specialty Start Date End Date Chemo Chavez MD [address] [place] [address] PCP - Referring 1 Internal Medicine 05/24/21 Carmelo Lindsey MD [address] [place] [address] PCP - Referring 2 Neurology 05/24/21 Anthony Munguia DO [address] [facility] [address] PCP - General Internal Medicine 08/16/23 Jair Jacob DO [address] [place] [address] Family Medicine 05/24/21 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 Relationship Specialty Start Date End Date Anthony Munguia DO [address] [place] [address] PCP - General Internal Medicine 06/07/23 Deborah De La Vega, OPERATIONS AND MAINTENANCE SPECIALIST [address] [place] [address] Family Medicine 09/08/15 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 Relationship Specialty Start Date End Date Chemo Chavez MD [address] [place] [address] PCP - Referring 1 Internal Medicine 05/24/21 Carmelo Lindsey MD [address] [place] [phone] PCP - Referring 2 Neurology 05/24/21 Anthony Munguia DO [address] [place] [address] PCP - General Internal Medicine 08/16/23 Jair Jacob DO [address] [place] [address] Family Medicine 05/24/21 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 Relationship Specialty Start Date End Date Anthony Munguia DO [address] [facility] [place] [address] PCP - General Internal Medicine 05/25/23 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 Relationship Specialty Start Date End Date Anthony Munguia DO [address] [facility] [place] [address] PCP - General Internal Medicine 05/25/23 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 Relationship Specialty Start Date End Date Deborah De La Vega CNP [address] [place], [place] [phone] PCP - General Family Medicine 09/26/17 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 Relationship Specialty Start Date End Date Chemo Chavez MD [address] [place] [address] PCP - Referring 1 Internal Medicine 05/24/21 Carmelo Lindsey MD [address] [place] [address] PCP - Referring 2 Neurology 05/24/21 Anthony Munguia DO [address] [facility] [address] PCP - General Internal Medicine 08/16/23 Jair Jacob DO [address] [place] [address] Family Medicine 05/24/21 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 Relationship Specialty Start Date End Date Deborah De La Vega, OPERATIONS AND MAINTENANCE SPECIALIST [address] [place] [address] PCP - General Family Medicine 09/26/17 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 Relationship Specialty Start Date End Date Anthony Munguia DO [address] [facility] [address] PCP - General Internal Medicine 05/25/23 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 Relationship Specialty Start Date End Date Anthony Munguia DO [address] [place] [address] PCP - General Internal Medicine 05/25/23 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 Relationship Specialty Start Date End Date Chemo Chavez MD [address] [place] [address] PCP - Referring 1 Internal Medicine 05/24/21 Carmelo Lindsey MD [address] [place] [address] PCP - Referring 2 Neurology 05/24/21 Anthony Munguia DO [address] [facility] [place] [phone] PCP - General Internal Medicine 08/16/23 Jair Jacob DO [address] [place] [address] Family Medicine 05/24/21 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 Relationship Specialty Start Date End Date Anthony Munguia DO [address] [place] [address] PCP - General Internal Medicine 06/07/23 Deboarh De La Vega, SHARI [address] [place] [address] Family Medicine 09/08/15 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 Relationship Specialty Start Date End Date Chemo Chavez MD [address] [place] [address] PCP - Referring 1 Internal Medicine 05/24/21 Carmelo Lindsey MD [address] [place] [address] PCP - Referring 2 Neurology 05/24/21 Anthony Munguia DO [address] [facility] [address] PCP - General Internal Medicine 08/16/23 Jair Jacob DO [address] [place] [address] Family Medicine 05/24/21 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 Relationship Specialty Start Date End Date Chemo Chavez MD [address] [place] [address] PCP - Referring 1 Internal Medicine 05/24/21 Carmelo Lindsey MD [address] [place] [address] PCP - Referring 2 Neurology 05/24/21 Anthony Munguia DO [address] [facility] [address] PCP - General Internal Medicine 08/16/23 Jair Jacob DO [address] [place] [address] Family Medicine 05/24/21 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 Relationship Specialty Start Date End Date Anthony Munguia DO [address] [facility] [address] PCP - General Internal Medicine 05/25/23 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 Relationship Specialty Start Date End Date Deborah De La Vega, OPERATIONS AND MAINTENANCE SPECIALIST [address] [place], [place] [phone] PCP - General Family Medicine 09/26/17 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 Relationship Specialty Start Date End Date Chemo Chavez MD [address] [place] [address] PCP - Referring 1 Internal Medicine 05/24/21 Carmelo Lindsey MD [address] [place] [address] PCP - Referring 2 Neurology 05/24/21 Anthony Munguia DO [address] [facility] [address] PCP - General Internal Medicine 08/16/23 Jair Jacob DO [address] [place] [address] Family Medicine 05/24/21 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 Relationship Specialty Start Date End Date Chemo Chavez MD [address] [place] [address] PCP - Referring 1 Internal Medicine 05/24/21 Carmelo Lindsey MD [address] [place] [address] PCP - Referring 2 Neurology 05/24/21 Anthony Munguia DO [address] [facility] [address] PCP - General Internal Medicine 08/16/23 Jair Jacob DO [employer] [place] [address] Family Medicine 05/24/21 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 Relationship Specialty Start Date End Date Mahamed Neri DO [address] [place] [address] PCP - General Family Medicine 09/11/24 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 Relationship Specialty Start Date End Date Chemo Chavez MD [address] [place] [address] PCP - Referring 1 Internal Medicine 05/24/21 Carmelo Lindsey MD [address] [place] [address] PCP - Referring 2 Neurology 05/24/21 Anthony Munguia DO [address] [facility] [address] PCP - General Internal Medicine 08/16/23 Jair aJcob DO [address] [place] [address] Family Medicine 05/24/21 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 Relationship Specialty Start Date End Date Mahamed Neri DO [address] [place] [address] PCP - General Family Medicine 09/11/24 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 Relationship Specialty Start Date End Date Mahamed Neri DO [address] [place] [address] PCP - General Family Medicine 09/11/24 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 Relationship Specialty Start Date End Date Mahamed Neri DO [address] [place] [address] PCP - General Family Medicine 09/11/24 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 Relationship Specialty Start Date End Date Chemo Chavez MD [address] [facility] [place] [id number] PCP - Referring 1 Internal Medicine 05/24/21 Carmelo Lindsey MD [address] [facility] [place] [id number] PCP - Referring 2 Neurology 05/24/21 Mahamed Neri DO [facility] [place] [phone] PCP - General Family Medicine 11/12/24 Jair Jacob DO [address] [place] [address] Family Medicine 05/24/21 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 Relationship 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 Start Date End Date Mahamed Neri DO [facility] [place] [address] PCP - General Family Medicine 09/11/24 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 Relationship Specialty Start Date End Date Mahamed Neri DO [address] [place] [address] PCP - General Family Medicine 09/11/24 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 Relationship Specialty Start Date End Date Mahamed Neri DO [address] [place] [address] PCP - General Family Medicine 09/11/24 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 Relationship Specialty Start Date End Date Chemo Chavez MD [employer] [place] [id number] PCP - Referring 1 Internal Medicine 05/24/21 Carmelo Lindsey MD [address] [place] [address] PCP - Referring 2 Neurology 05/24/21 Mahamed Neri DO [address] [place], [place] [phone] PCP - General Family Medicine 11/12/24 Jair Jacob DO [employer] [place] [phone] Family Medicine 05/24/21 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 Relationship Specialty Start Date End Date Mahamed Neri DO [facility] [place] [address] PCP - General Family Medicine 09/11/24 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 Relationship Specialty Start Date End Date Mahamed Neri DO [facility] [place] [id number] PCP - General Family Medicine 09/11/24 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 Relationship Specialty Start Date End Date Mahamed Neri DO [address] [place] [address] PCP - General Family Medicine 09/11/24 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 Relationship Specialty Start Date End Date Mahamed Neri DO [address] [place] [id number] PCP - General Family Medicine 09/11/24 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 Relationship Specialty Start Date End Date Anthony Munguia DO [address] [place] [address] PCP - [employer] PCP 04/14/24 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 Relationship Specialty Start Date End Date Mahamed Neri DO [facility] [place] [address] PCP - General Family Medicine 09/11/24 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 Relationship Specialty Start Date End Date Mahamed Neri DO [facility] [place] [address] PCP - General Family Medicine 09/11/24 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 Relationship Specialty Start Date End Date Chemo Chavez MD [address] [place] [address] PCP - Referring 1 Internal Medicine 05/24/21 Carmelo Lindsey MD [address] [place] [address] PCP - Referring 2 Neurology 05/24/21 Mahamed Neri DO [address] [place] [phone] PCP - General Family Medicine 11/12/24 Jair Jacob DO [address] [place] [phone] Family Medicine 05/24/21 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 Relationship Specialty Start Date End Date Mahamed Neri DO [address] [place] [address] PCP - General Family Medicine 09/11/24 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 Relationship Specialty Start Date End Date Mahamed Neri DO [address] [place] [address] PCP - General Family Medicine 09/11/24 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 Relationship Specialty Start Date End Date Mahamed Neri DO [address] [place] [address] PCP - General Family Medicine 09/11/24 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 Relationship Specialty Start Date End Date Mahamed Neri DO [address] [place] [address] PCP - General Family Medicine 09/11/24 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 Relationship Specialty Start Date End Date Mahamed Neri DO [address] [place] [phone] PCP - General Family Medicine 09/11/24 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 Relationship Specialty Start Date End Date Mahamed Neri DO [address] [place] [address] PCP - General Family Medicine 06/20/25 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 Relationship Specialty Start Date End Date Mahamed Neri DO [address] [place] [address] PCP - General Family Medicine 09/11/24 <item><item><item><item><item> Privacy Markings (unrecogniz ed section and content) Section Author: Zoe Cosby PROHIBITION ON REDISCLOSURE OF CONFIDENTIAL INFORMATION This notice accompanies a disclosure of information concerning a client made to you with the consent of such client. Section Author: Zoe Cosby PROHIBITION ON REDISCLOSURE OF CONFIDENTIAL INFORMATION This notice accompanies a disclosure of information concerning a client made to you with the consent of such client. Section Author: Zoe Cosby PROHIBITION ON REDISCLOSURE OF CONFIDENTIAL INFORMATION This notice accompanies a disclosure of information concerning a client made to you with the consent of such client. Section Author: Zoe Cosby PROHIBITION ON REDISCLOSURE OF CONFIDENTIAL INFORMATION This notice accompanies a disclosure of information concerning a client made to you with the consent of such client. Section Author: Zoe Cosby PROHIBITION ON REDISCLOSURE OF CONFIDENTIAL INFORMATION This notice accompanies a disclosure of information concerning a client made to you with the consent of such client. Source Comments (unrecognize d section and content) In the event this informatio n is protected by the Federal Confidentiality of Alcohol and Drug Abuse Patient Records regulations: The Federal rules restrict any use of the information to criminally investigate or prosecute any alcohol or drug abuse patient.[facility] the event this information is protected by the Federal Confidentiality of Alcohol and Drug Abuse Patient Records regulations: The Federal rules restrict any use of the information to criminally investigate or prosecute any alcohol or drug abuse patient.[facility] the event this information is protected by the Federal Confidentiality of Alcohol and Drug Abuse Patient Records regulations: The Federal rules restrict any use of the information to criminally investigate or prosecute any alcohol or drug abuse patient.[facility] the event this information is protected by the Federal Confidentiality of Alcohol and Drug Abuse Patient Records regulations: The Federal rules restrict any use of the information to criminally investigate or prosecute any alcohol or drug abuse patient.[facility] Scheduled Active and Recently Administ ered Medications (unrecognized section and content) Medication Order 08/28/2023 08/29/2023 08/30/2023 PARoxetine (PAXIL) tablet 50 mg 50 mg, Oral, ONCE, 1 dose, On Mon08/30/23 at 1630, Swallow tablet whole; do not crush, split or chew. Contact pharmacy if alternate route or dose is needed., Post-op/Post-Proc 1630 (Not Given - Pr ovider: Praveena Crystal RN - Reason: Order Parameters not met - Comment: per caregiver patuient took dose today) PHENobarbital 52 mg in Sodium chloride 0.9%, with overfill 110.4 mL (total volume) IVPB (COMPLETED) 52 mg (rounded from 48.6 mg), Intravenous, Administer over 10 Minutes, ONCE, 1 dose, On Mon08/30/23 at 1315 1309 ($$New Bag$$ - Provider: Mal Lane APRN-SUPERANNUATION CLERK) povidone-iodine (3M SKIN and NASAL ANTISEPTIC) 5 % topical solution 1 Application (COMPLETED) 1 Application, Nasal, 60 MIN PRE-OP, 1 dose, On Mon08/30/23 at 1000, (1) Use a tissue to clean the inside of both nostrils including the inside tip of the nostril. (2) Tilting the bottle slightly, dip one swab into solution and stir vigorously for 10 seconds. Withdraw the swab slowly to avoid wiping solution off during removal. (3) Insert swab comfortably into one nostril and rotate for 15 seconds covering all surfaces. Then focus on the inside tip of nostril and rotate for an additional 15 seconds. (4) Using a new swab, repeat steps 2 & 3 with the other nostril. (5) Repeat the application in both nostrils using a fresh swab each time. (6) Do not blow nose. If solution drips out of nose, it can be lightly dabbed with a tissue., Pre-op/Pre-Proc 1100 (Given - Provid er: Rebekah Foreman RN) Continuous Medication Order 08/28/2023 08/29/2023 08/30/2023 Lactated ringers IV solution Intravenous, at 100 mL/hr, CONTINUOUS, Starting on Mon08/30/23 at 1330, Until Mon08/30/23 at 2021, Recovery 1330 (Canceled Entry - Provider: System Discharge - Comment: Automatically canceled at discontinue of medication order) Sodium chloride 0.9% IV solution (CANCELED) Intravenous, at 50 mL/hr, CONTINUOUS, Starting on Mon08/30/23 at 1000, Until Mon08/30/23 at 1624, Pre-op/Pre-Proc 1100 ($$New Bag$$ - Provider: Rebekah Foreman RN)1239 (Rate/Dose Verify - Provider: Rebekah Foreman RN)1655 (Stopped - Provider: Praveena Crystal RN) Sodium chloride 0.9% IV solution Intravenous, at 75 mL/hr, CONTINUOUS, Starting on Mon08/30/23 at 1630, Until Mon08/30/23 at 2021, Post-op/Post-Proc 1655 (Not Given - Pr ovider: Praveena Crystal RN - Reason: Order Parameters not met) PRN Medication Order 08/28/2023 08/29/2023 08/30/2023 Acetaminophen (TYLENOL) tablet 650 mg 650 mg, Oral, EVERY 4 HOURS NEEDED, Starting on Mon08/30/23 at 1624, Until Mon08/30/23 at 2021, Mild Pain, Maximum dose of acetaminophen is 4000 mg from all sources in 24 hours., Post-op/Post-Proc 1715 (Given - Provid er: Praveena Crystal RN) BUPivacaine (PF) (MARCAINE) 0.25 % injection (CANCELED) NEEDED, Starting on Mon08/30/23 at 1322, Until Mon08/30/23 at 1542, Intra-op/Intra-Proc 1322 (Given - Provid er: Ulises Li MD - Comment: Mixed 1:1 with 1% lido w/epi 1:100,000 on sterile field.) ceFAZolin (ANCEF) 2 g in dextrose 100 mL premix IVPB (COMPLETED) 2 g, Intravenous, Administer over 30 Minutes, JOURNEYMAN PRESS OPERATOR TO PROCEDURE, 1 dose, Starting on Mon08/30/23 at 0955, Until Discontinued, Other, Surgical Prophylaxis, Initiate antibiotic administration 30-60 minutes prior to surgical incision and complete administration prior to surgical incision., Pre-op/Pre-Proc 1247 (Given - Provid er: Mal Lane APRN-SUPERANNUATION CLERK) HYDROmorphone (DILAUDID) injection 0.2 mg 0.2 mg, Intravenous, EVERY 10 MINUTES NEEDED, 10 doses, Starting on Mon08/30/23 at 1325, Until Mon08/30/23 at 2021, Moderate Pain, Severe Pain, May give a total of 2mg in PACU., Recovery Lidocaine-epinephrine 1%-1:308106 injection (CANCELED) NEEDED, Starting on Mon08/30/23 at 1321, Until Mon08/30/23 at 1542, Intra-op/Intra-Proc 1321 (Given - Provid er: Ulises Li MD - Comment: Mixed 1:1 woth 0.25% marcaine on sterile field.) Ondansetron (ZOFRAN) tablet 4 mg(Linked Group 1) 4 mg, Oral, EVERY 6 HOURS NEEDED, Starting on Mon08/30/23 at 1624, Until Mon08/30/23 at 2021, Nausea / Vomiting, Post-op/Post-Proc Ondansetron 4mg/2ml (ZOFRAN) injection 4 mg(Linked Group 1) 4 mg, Intravenous, EVERY 4 HOURS NEEDED, Starting on Mon08/30/23 at 1624, Until Mon08/30/23 at 2021, Nausea / Vomiting, Post-op/Post-Proc oxyCODONE-acetaminophen (PERCOCET) 5-325 MG per tablet 1 tablet(Linked Group 2) 1 tablet, Oral, EVERY 4 HOURS NEEDED, Starting on Mon08/30/23 at 1624, Until Mon08/30/23 at 2021, Moderate Pain, Use as initial dose. Higher dose may be administered if lower dose was previously documented as ineffective and did not result in adverse effects (RR<10, decrease in level of consciousness)., Post-op/Post-Proc oxyCODONE-acetaminophen (PERCOCET) 5-325 MG per tablet 2 tablet(Linked Group 2) 2 tablet, Oral, EVERY 4 HOURS NEEDED, Starting on Mon08/30/23 at 1624, Until Mon08/30/23 at 2021, Moderate Pain, Higher dose may be administered if lower dose was previously documented as ineffective and did not result in adverse effects (RR<10, decrease in level of consciousness). Decrease back to lower dose if patient has adverse effects, or no PRN used in previous 12 hours., Post-op/Post-Proc Prochlorperazine (COMPAZINE) injection 5 mg 5 mg, Intravenous, EVERY 1 HOUR NEEDED, 2 doses, Starting on Mon08/30/23 at 1325, Until Mon08/30/23 at 2021, Nausea / Vomiting, FIRST Line antiemetic, Do not administer within 6 hours of intra-operative dose. For IV route: dilute dose with 10mL normal saline and give by slow IV push at a rate of 5mg/min. Maximum of 40mg/day., Recovery Vancomycin (VANCOCIN) injection (CANCELED) NEEDED, Starting on Mon08/30/23 at 1318, Until Mon08/30/23 at 1542, Intra-op/Intra-Proc 1318 (Given - Provid er: Ulises Li MD - Comment: Given to sterile field.) Vancomycin HCl in NaCl (Vancocin) 1,250 mg 287.5 ml premade IVPB (COMPLETED) 1,250 mg (rounded from 1,194 mg = 15 mg/kg 79.6 kg Order-specific weight), Intravenous, Administer over 1 Hours, JOURNEYMAN PRESS OPERATOR TO PROCEDURE, 1 dose, Starting on Mon08/30/23 at 0000, Until Mon08/30/23 at 1159, Other, Surgical Prophylaxis, Infusion must complete prior to surgical incision. Initiate antibiotic administration 60-120 minutes prior to surgical incision (depending on Administer Over Time)., Pre-op/Pre-Proc 1101 ($$New Bag$$ - Provider: Rebekah Foreman, RN)1159 (Stopped - Provider: Rebekah Foreman, RN) Linked Groups Order Group 1: Ondansetron 4mg/2ml (ZOFRAN) injection 4 mgJump to med 4 mg, Intravenous, EVERY 4 HOURS NEEDED, Starting on Mon08/30/23 at 1624, Until Mon08/30/23 at 2021, Nausea / Vomiting, Post-op/Post-Proc Or Ondansetron (ZOFRAN) tablet 4 mgJump to med 4 mg, Oral, EVERY 6 HOURS NEEDED, Starting on Mon08/30/23 at 1624, Until Mon08/30/23 at 2021, Nausea / Vomiting, Post-op/Post-Proc Group 2: oxyCODONE-acetaminophen (PERCOCET) 5-325 MG per tablet 1 tabletJump to med 1 tablet, Oral, EVERY 4 HOURS NEEDED, Starting on Mon08/30/23 at 1624, Until Mon08/30/23 at 2021, Moderate Pain
Use as initial dose. Higher dose may be administered if lower dose was previously documented as ineffective and did not result in adverse effects (RR<10, decrease in level of consciousness).
Post-op/Post-Proc Or oxyCODONE-acetaminophen (PERCOCET) 5-325 MG per tablet 2 tabletJump to med 2 tablet, Oral, EVERY 4 HOURS NEEDED, Starting on Mon08/30/23 at 1624, Until Mon08/30/23 at 2021, Moderate Pain
Higher dose may be administered if lower dose was previously documented as ineffective and did not result in adverse effects (RR<10, decrease in level of consciousness). Decrease back to lower dose if patient has adverse effects, or no PRN used in previous 12 hours.
Post-op/Post-Proc Scheduled Medication Order 05/13/2024 05/14/2024 05/15/2024 phenytoin ER (Dilantin) capsule 100 mg (COMPLETED) 100 mg, oral, Once, On Mon05/15/24 at 0115, For 1 dose, Hold enteral nutrition at least 1 hour before and 2 hours after dose. Monitor drug levels. HAZARDOUS - use appropriate precautions for handling and disposal. Do not crush, split, or open. 0130 (Given - Provid er: Marge Farley, RN) PRN Medication Order 05/13/2024 05/14/2024 05/15/2024 oxygen (O2) therapy inhalation, Continuous PRN - O2/gases, other, Starting on Mon05/14/24 at 2315, Device: Nasal Cannula, Rate in liters per minute: Other, Custom Value: 1-4, Keep O2 Sat Above: 90% 2316 (Start - Provider: Meeta Mart, JERONIMO) Scheduled Medication Order 12/11/2024 12/12/2024 12/13/2024 Atorvastatin (LIPITOR) tablet 10 mg 10 mg, Oral, DAILY EVERY MORNING, First dose on Mon12/11/24 at 1015, Until Discontinued 1136 (Not Given - Provider: Airam Fuentse RN - Reason: Other - Comment: Given at facility at 7 a.m.) 0903 (Given - Provider: Vinicio Ortiz RN) 0914 (Given - Provider: Anup Adkins, ARIANNA) calcium carbonate antacid tablet 648 mg 648 mg (1 tablet), Oral, 2 TIMES DAILY, First dose on Mon12/11/24 at 1015, Until Discontinued 1315 (Given - Provider: Airam Fuentes RN)1645 (Given - Provider: Airam Fuentes RN) 0903 (Given - Provider: Vinicio Ortiz RN)1712 (Given - Provider: Jessi Cheung RN) 0914 (Given - Provider: Anup Adkins, ARIANNA)1700 (Canceled Entry - Provider: System Discharge - Comment: Automatically canceled at discontinue of medication order) clonazePAM (KLONOPIN) tablet 1 mg 1 mg, Oral, DAILY AT BEDTIME, First dose on Mon12/11/24 at 2100, Until Discontinued, Contact pharmacy to crush/split due to hazardous classification. If given by enteral tube: Disperse the crushed powder sent by pharmacy in at least 10 mL of water. (Using at least 10 mL helps prevent adherence of the medication to the plastic tube.) Flush tube with at least 10 mL of water before and after. 2044 (Given - Provider: Champ Owusu RN) 2024 (Given - Provider: Champ Owusu RN) cyanocobalamin (VITAMIN B12) tablet 1,000 mcg 1,000 mcg, Oral, DAILY EVERY MORNING, First dose on Mon12/11/24 at 1015, Until Discontinued 1136 (Not Given - Provider: Airam Fuentes RN - Reason: Other - Comment: given at facility at 7 a.m.) 09 (Given - Provider: Vinicio Ortiz RN) 09 (Given - Provider: Anup Adkins RN) Enoxaparin Sodium (LOVENOX) injection 40 mg 40 mg, Subcutaneous, EVERY 24 HOURS, First dose on Mon12/11/24 at 2100, Until Discontinued, For SUBCUTANEOUS route ONLY: alternate injection sites between left and right abdominal wall, pinching location and avoiding area around navel. If unable to use abdominal sites, may use the front or side of thighs., Indications: DVT/PE prophylaxis 2044 (Given - Provider: Champ Owusu RN) 2023 (Given - Provider: Champ Owusu RN) faMOTIdine (PEPCID) tablet 20 mg 20 mg, Oral, 2 TIMES DAILY, First dose on Mon12/11/24 at 1015, Until Discontinued 1136 (Not Given - Provider: Airam Fuentes RN - Reason: Other - Comment: given at facility at 7 a.m.)1645 (Given - Provider: Airam Fuentes RN) 09 (Given - Provider: Vinicio Ortiz RN)171 (Given - Provider: Jessi Cheung RN) 0914 (Given - Provider: Anup Adkins RN)1700 (Canceled Entry - Provider: System Discharge - Comment: Automatically canceled at discontinue of medication order) Folic acid (FOLVITE) tablet 1 mg 1 mg, Oral, DAILY EVERY MORNING, First dose on Mon12/11/24 at 1015, Until Discontinued 1138 (Not Given - Provider: Airam Fuentes RN - Reason: Other - Comment: given at facility at 7 a.m.) 902 (Given - Provider: Vinicio Ortiz RN) 913 (Given - Provider: Anup Adkins, RN) Lacosamide (VIMPAT) tablet 250 mg 250 mg, Oral, EVERY 12 HOURS, First dose on Mon12/11/24 at 1015, Until Discontinued 1139 (Not Given - Provider: Airam Fuentes RN - Reason: Other - Comment: given at facility at 7 a.m.)2043 (Given - Provider: Champ Owusu RN) 902 (Given - Provider: Vinicio Ortiz RN)2025 (Given - Provider: Champ Owusu RN) 09 (Given - Provider: Anup Adkins, RN) levETIRAcetam (KEPPRA XR) tablet XR 2,000 mg 2,000 mg, Oral, 2 TIMES DAILY, First dose on Mon12/11/24 at 1030, Until Discontinued, Extended release dosage form. Do not crush. 1141 (Not Given - Provider: Airam Fuentes RN - Reason: Other - Comment: given at facility at 7 a.m.)2042 (Given - Provider: Champ Owusu RN) 903 (Given - Provider: Vinicio Ortiz RN)2024 (Given - Provider: Champ Owusu RN) 1035 (Given - Provider: Anup Adkins, ARIANNA) Levothyroxine (SYNTHROID) tablet 237.5 mcg 237.5 mcg (rounded from 237 mcg), Oral, DAILY EVERY MORNING, First dose on Mon12/11/24 at 1200, Until Discontinued, Hold tube feedings for 1 hour before and 1 hour after medication administration. 1141 (Not Given - Provider: Airam Fuentes RN - Reason: Other - Comment: given at facility at 7 a.m.) 911 (Given - Provider: Vinicio Ortiz RN) 0915 (Given - Provider: Anup Adkins, RN) Methenamine Hippurate (HIPREX) tablet 1 g 1 g, Oral, 2 TIMES DAILY, First dose on Mon12/11/24 at 1200, Until Discontinued 1142 (Not Given - Provider: Airam Fuentes RN - Reason: Other - Comment: given at facility at 7 a.m.)1645 (Given - Provider: Airam Fuentes RN) 0912 (Given - Provider: Vinicio Ortiz RN)1712 (Given - Provider: Jessi Cheung, ARIANNA) 0915 (Given - Provider: Anup Adkins, ARIANNA)1700 (Canceled Entry - Provider: System Discharge - Comment: Automatically canceled at discontinue of medication order) Metoprolol succinate (TOPROL-XL) tablet XL 25 mg 25 mg, Oral, DAILY, First dose on Mon12/11/24 at 1045, Until Discontinued, Slow release product. Do not crush. Extended release can be cut in half. 1142 (Not Given - Provider: Airam Fuentes RN - Reason: Other) 0904 (Given - Provider: Vinicio Ortiz RN) 0914 (Given - Provider: Anup Adkins RN) PARoxetine (PAXIL) tablet 50 mg 50 mg, Oral, DAILY EVERY MORNING, First dose on Mon12/11/24 at 1015, Until Discontinued, Swallow tablet whole; do not crush, split or chew. Contact pharmacy if alternate route or dose is needed. 1142 (Not Given - Provider: Airam Fuentes RN - Reason: Other - Comment: given at facility at 7 a.m.) 0904 (Given - Provider: Vinicio Ortiz RN) 0913 (Given - Provider: Anup Adkins, ARIANNA) PHENobarbital tablet 48.6 mg(Linked Group 1) 48.6 mg, Oral, EVERY MORNING AND NOON, First dose (after last modification) on Mon12/11/24 at 1200, Until Discontinued 1314 (Given - Provider: Airam Fuentes RN) 0903 (Given - Provider: Vinicio Ortiz RN)1304 (Given - Provider: Jessi Cheung, ARIANNA) 0911 (Given - Provider: Anup Adkins, ARIANNA)1220 (Given - Provider: Kim Levine RN) PHENobarbital tablet 64.8 mg(Linked Group 1) 64.8 mg, Oral, DAILY AT BEDTIME, First dose (after last modification) on Mon12/11/24 at 2100, Until Discontinued 2043 (Given - Provider: Champ Owusu RN) 2025 (Given - Provider: Champ Owusu RN) Phenytoin extended (DILANTIN) capsule 300 mg 300 mg, Oral, DAILY AT BEDTIME, First dose on Mon12/11/24 at 2100, Until Discontinued, Swallow capsule whole; do not crush, open, or chew. Contact pharmacy if alternate route or dose is needed. 2042 (Given - Provider: Champ Owusu RN) 2024 (Given - Provider: Champ Owusu RN) Polyethylene glycol (MIRALAX) packet 17 g 17 g, Oral, DAILY, First dose on Mon12/11/24 at 1015, Until Discontinued 1334 (Given - Provider: Airam Fuentes RN) 09 (Given - Provider: Vinicio Ortiz RN) 0914 (Given - Provider: Anup Adkins, ARIANNA) QUEtiapine (SEROquel) tablet 25 mg(Linked Group 2) 25 mg, Oral, EVERY 24 HOURS, First dose (after last modification) on Mon12/11/24 at 1300, Until Discontinued 1315 (Given - Provider: Airam Fuentes RN) 1304 (Given - Provider: Jessi Cheung, ARIANNA) 1221 (Given - Provider: Kim Levine RN) QUEtiapine (SEROquel) tablet 250 mg(Linked Group 2) 250 mg, Oral, DAILY AT BEDTIME, First dose (after last modification) on Mon12/11/24 at 2100, Until Discontinued 2043 (Given - Provider: Champ Owusu RN) 2024 (Given - Provider: Champ Owusu RN) QUEtiapine (SEROquel) tablet 50 mg(Linked Group 2) 50 mg, Oral, DAILY, First dose (after last modification) on Mon12/12/24 at 0900, Until Discontinued 902 (Given - Provider: Vinicio Ortiz RN) 0912 (Given - Provider: Anup Adkins, ARIANNA) Senna (SENOKOT) tablet 8.6 mg 8.6 mg, Oral, 2 TIMES DAILY, First dose on Mon12/11/24 at 1015, Until Discontinued 1130 (Not Given - Provider: Airam Fuentes RN - Reason: Other - Comment: given at facility at 7 a.m.)1645 (Given - Provider: Airam Fuentes RN) 0902 (Given - Provider: Vinicio Ortiz, ARIANNA)1712 (Given - Provider: Jessi Cheung, ARIANNA) 0914 (Given - Provider: Anup Adkins RN)1700 (Canceled Entry - Provider: System Discharge - Comment: Automatically canceled at discontinue of medication order) PRN Medication Order 12/11/2024 12/12/2024 12/13/2024 Albuterol sulfate (PROVENTIL) inhalation solution 2.5 mg 2.5 mg, Nebulization, EVERY 6 HOURS NEEDED, Starting on Mon12/11/24 at 1009, Until Mon12/13/24 at 1748, Shortness of Breath, Respiratory Distress, Wheezing LORazepam (ATIVAN) injection 1 mg(Linked Group 3) 1 mg, Intravenous, ADMINISTER DIRECTED, Starting on Mon12/11/24 at 0839, Until Mon12/13/24 at 1748, Other, Seizure, SEIZURE ACTION PLAN NURSING STAFF: ADMINISTER LORAZEPAM/MIDAZOLAM FIRST - DO NOT WAIT FOR RESIDENT TO RETURN CALL. Only give if patient has 2 focal with impaired awareness (FAIS) seizures in a 24-hour period or 1 focal to bilateral tonic clonic (FBTC) or generalized tonic clonic convulsive (GTC) seizure. FOR EEG TECHNICIANS: [facility]U ATTENDING DURING THE DAY OR THE LTM ATTENDING AT NIGHT IF PATIENT HAS 1 FBTC (PLEASE REFER TO QGENDA TO SEE WHO EMU/LTM ATTENDING IS). Extravasation Risk 0829 (Given - Provid er: Anup Adkins RN) Midazolam HCl (PF) (VERSED) injection 5 mg(Linked Group 3) 5 mg, Nasal, ADMINISTER DIRECTED, Starting on Mon12/11/24 at 0839, Until Mon12/13/24 at 1748, Concentrated midazolam for IM/nasal use only. For nasal use draw up an additional 0.1 mL overfill for [id number] beyond prescribed dose to account for volume of mucosal atomization device. Attach MAD device to syringe and administer half of the prescribed dose into each nostril. (Max of 1 mL each nostril), SEIZURE ACTION PLAN NURSING STAFF: ADMINISTER LORAZEPAM/MIDAZOLAM FIRST - DO NOT WAIT FOR RESIDENT TO RETURN CALL. Only give if patient has 2 focal with impaired awareness (FAIS) seizures in a 24-hour period or 1 focal to bilateral tonic clonic (FBTC) or generalized tonic clonic convulsive (GTC) seizure. FOR EEG TECHNICIANS: PAGE EMU ATTENDING DURING THE DAY OR THE LTM ATTENDING AT NIGHT IF PATIENT HAS 1 FBTC (PLEASE REFER TO QGENDA TO SEE WHO EMU/LTM ATTENDING IS). 0829 (See Alternativ e - Provider: Anup Adkins RN) Linked Groups Order Group 1: PHENobarbital tablet 48.6 mgJump to med 48.6 mg, Oral, EVERY MORNING AND NOON, First dose (after last modification) on Mon12/11/24 at 1200, Until Discontinued And PHENobarbital tablet 64.8 mgJump to med 64.8 mg, Oral, DAILY AT BEDTIME, First dose (after last modification) on Mon12/11/24 at 2100, Until Discontinued Group 2: QUEtiapine (SEROquel) tablet 250 mgJump to med 250 mg, Oral, DAILY AT BEDTIME, First dose (after last modification) on Mon12/11/24 at 2100, Until Discontinued And QUEtiapine (SEROquel) tablet 50 mgJump to med 50 mg, Oral, DAILY, First dose (after last modification) on Mon12/12/24 at 0900, Until Discontinued And QUEtiapine (SEROquel) tablet 25 mgJump to med 25 mg, Oral, EVERY 24 HOURS, First dose (after last modification) on Mon12/11/24 at 1300, Until Discontinued Group 3: LORazepam (ATIVAN) injection 1 mgJump to med 1 mg, Intravenous, ADMINISTER DIRECTED, Starting on Mon12/11/24 at 0839, Until Mon12/13/24 at 1748, Other, Seizure, SEIZURE ACTION PLAN NURSING STAFF: ADMINISTER LORAZEPAM/MIDAZOLAM FIRST - DO NOT WAIT FOR RESIDENT TO RETURN CALL. Only give if patient has 2 focal with impaired awareness (FAIS) seizures in a 24-hour period or 1 focal to bilateral tonic clonic (FBTC) or generalized tonic clonic convulsive (GTC) seizure. FOR EEG TECHNICIANS: PAGE EMU ATTENDING DURING THE DAY OR THE LTM ATTENDING AT NIGHT IF PATIENT HAS 1 FBTC (PLEASE REFER TO QGENDA TO SEE WHO EMU/LTM ATTENDING IS). Extravasation Risk Or Midazolam HCl (PF) (VERSED) injection 5 mgJump to med 5 mg, Nasal, ADMINISTER DIRECTED, Starting on Mon12/11/24 at 0839, Until Mon12/13/24 at 1748, Concentrated midazolam for IM/nasal use only. For nasal use draw up an additional 0.1 mL overfill for [id number] beyond prescribed dose to account for volume of mucosal atomization device. Attach MAD device to syringe and administer half of the prescribed dose into each nostril. (Max of 1 mL each nostril), SEIZURE ACTION PLAN NURSING STAFF: ADMINISTER LORAZEPAM/MIDAZOLAM FIRST - DO NOT WAIT FOR RESIDENT TO RETURN CALL. Only give if patient has 2 focal with impaired awareness (FAIS) seizures in a 24-hour period or 1 focal to bilateral tonic clonic (FBTC) or generalized tonic clonic convulsive (GTC) seizure. FOR EEG TECHNICIANS: PAGE EMU ATTENDING DURING THE DAY OR THE LTM ATTENDING AT NIGHT IF PATIENT HAS 1 FBTC (PLEASE REFER TO QGENDA TO SEE WHO EMU/LTM ATTENDING IS). FOR RECORDS PERTAINING TO PATIENTS WHO ARE OR HAVE BEEN ENROLLED IN A CHEMICAL DEPENDENCY/SUBSTANCEABUSE PROGRAM, SOME INFORMATION MAY BE OMITTED. This clinical summary was aggregated from multiple sources. Caution should be exercised in using it in the provision of clinical care. This summary normalizes information from multiple sources, and as a consequence, information in this document may materially change the coding, format and clinical context of patient data. In addition, data may be omitted in some cases. CLINICAL DECISIONS SHOULD BE BASED ON THE PRIMARY CLINICAL RECORDS. [facility]. provides no warranty or guarantee of the accuracy or completeness of information in this document.
== END | disposition home or self-care (01) ==
PROVIDERS: Referring Provider Internal Medicine Pulmonary Disease; Visit Provider Internal Medicine Pulmonary Disease
DX: G47.33 Obstructive sleep apnea (adult) (pediatric) (principal)
CPT/HCPCS: 95811